=== PATIENT | male | born 1940 | race Caucasian/White ===

== ENCOUNTER 2016-08-24 12:28 | Inpatient (IN) | payer MEDICARE, OTHER ==
[~2016-08-24] VITALS: Ht 182.9 cm; Wt 113.5 kg
[2016-08-24] VITALS (12 sets, daily range): BP systolic 107–187; BP diastolic 80–109; PULSE 66–98; RESP 16–18; TEMP 98–98.3; O2SAT 90–97
[~2016-08-24 12:28] MED LIST: ALPR.25 PO; AMOX500T PO; ASPI325T PO; COUM5TAB PO; ENAL10TA7 PO; HYDR-3533 PO; METO50TA11 PO; WARF7.5 PO
[2016-08-24] MEDS ORDERED: SODIUM CHLORIDE 0.9% FLUSH 10 ML FLUSH IVF PRN (12:45)
[2016-08-24] MEDS: NITROGLYCERIN 0.4 MG SL 25 TABS/BTL SL SCH ×3 (12:50→13:10)
[2016-08-24 12:57] LABS: AUTOMATED NEUTROPHIL # 3.8 TH/MM3 (1.8-7.7); BASOPHIL # 0.1 TH/MM3 (0-0.2); EOSINOPHIL # 0.3 TH/MM3 (0-0.4); HEMATOCRIT 45.5 % (39.0-51.0); HEMO FLAGS DIFF FINAL; LYMPHOCYTE # 1.8 TH/MM3 (1.0-4.8); MEAN CELL VOLUME 93.5 FL (80.0-100.0); MEAN CORPUSCULAR HEMOGLOBIN 30.5 PG (27.0-34.0); MEAN CORPUSCULAR HGB CONC 32.6 % (32.0-36.0); MONO % 9.4 % (0.0-8.0); NEUT % 57.6 % (16.0-70.0); PLATELET COUNT 164 TH/MM3 (150-450); RED BLOOD COUNT 4.87 MIL/MM3 (4.50-5.90); RED CELL DISTRIBUTION WIDTH 13.6 % (11.6-17.2); WHITE BLOOD COUNT 6.6 TH/MM3 (4.0-11.0)
--- NOTE | 2016-08-24 13:07 | PD ---
HPI Chief Complaint: Chest Pain Time Seen by Provider: 12:44 Travel History International Travel<30 days: No Contact w/Intl Traveler<30days: No History of Present Illness HPI 75-year-old male presents emergency Department with fairly classic anginal symptoms. States since last night his been having a heaviness in the middle of his chest radiating to his left shoulder, it was mild nausea without vomiting and mild shortness of breath. Patient states she has a history of coronary artery disease and had stents placed many years ago but has not had a stress test or cardiac catheterization since. He follows with Dr. Moran. Patient is on Coumadin for history of atrial fibrillation. He states he did take a full dose aspirin today already. States pain is tight left side of his chest radiation down his left shoulder and accompanied with nausea. PFSH Past Medical History Atrial Fibrillation: Yes (ABLATION 2011) Anxiety: Yes Heart Rhythm Problems: Yes Cancer: Yes (colon) Cardiac Catheterization: Yes (STENT 12/17) Cardiovascular Problems: Yes High Cholesterol: Yes Chest Pain: Yes Congestive Heart Failure: No Cerebrovascular Accident: Yes Coronary Artery Disease: Yes Diminished Hearing: No Endocrine: No Gastrointestinal Disorders: Yes GERD: Yes Genitourinary: No Hiatal Hernia: Yes Hypertension: Yes Immune Disorder: No Musculoskeletal: No Neurologic: Yes Psychiatric: No Reproductive: No Respiratory: No Immunizations Current: No Myocardial Infarction: Yes Seizures: Yes (as a baby) PNEUMOCCOCAL Vaccine (Year): 1 Past Surgical History Abdominal Aneurysm Repair: Yes Abdominal Surgery: Yes (PARTIAL COLECTOMY) Cardiac Surgery: Yes (pacemaker placed and removed ) Coronary Stent: Yes Pacemaker: No Thoracic Surgery: Yes (BILATERAL CAROTID ENDARDERECTOMY) Other Surgery: Yes Social History Alcohol Use: Yes (OCCASIONAL) Tobacco Use: No Substance Use: No Allergies-Medications (Allergen,Severity, Reaction): Coded Allergies: Lipitor (Verified Allergy, Severe, back pain and chest pain, 08/24/16) Simvastatin (Unverified Allergy, Severe, body aches, 08/24/16) Reported Meds & Prescriptions Reported Meds & Active Scripts Active Reported Aspirin 325 Mg Tab 325 Mg PO DAILY Metoprolol Tartrate 25 Mg Tab 25 Mg PO BID Enalapril (Enalapril Maleate) 10 Mg Tab 10 Mg PO DAILY Xanax (Alprazolam) 0.25 Mg Tab 0.25 Mg PO Q6H PRN Coumadin (Warfarin) 5 Mg Tab 5 Mg PO M,W,TH,SA Coumadin (Warfarin) 7.5 Mg Tab 7.5 Mg PO FREITAS,TU,FR Review of Systems Except as stated in HPI: all other systems reviewed are Neg Physical Exam Narrative GENERAL: Well-developed well-nourished, slightly diaphoretic patient. Appears uncomfortable. SKIN: Slightly diaphoretic. HEAD: Atraumatic. Normocephalic. EYES: Pupils equal and round. No scleral icterus. No injection or drainage. ENT: No nasal bleeding or discharge. Mucous membranes pink and moist. NECK: Trachea midline. No JVD. CARDIOVASCULAR: Regular rate and rhythm. No murmur appreciated. 2+ bilateral equal pulses in all 4 extremities. No edema. RESPIRATORY: No accessory muscle use. Clear to auscultation. Breath sounds equal bilaterally. GASTROINTESTINAL: Abdomen soft, non-tender, nondistended. Hepatic and splenic margins not palpable. MUSCULOSKELETAL: No obvious deformities. No clubbing. No cyanosis. No edema. NEUROLOGICAL: Awake and alert. No obvious cranial nerve deficits. Motor grossly within normal limits. Normal speech. PSYCHIATRIC: Appropriate mood and affect; insight and judgment normal. Data Data Last Documented VS Vital Signs Date Time Temp Pulse Resp B/P Pulse Ox O2 Delivery O2 Flow Rate FiO2 08/24/16 13:19 88 16 142/80 94 Room Air 08/24/16 12:35 98.0 Orders Electrocardiogram (08/24/16 12:44) Ckmb (Isoenzyme) Profile (08/24/16 12:44) Complete Blood Count With Diff (08/24/16 12:44) Comprehensive Metabolic Panel (08/24/16 12:44) Magnesium (Mg) (08/24/16 12:44) Prothrombin Time / Inr (Pt) (08/24/16 12:44) Act Partial Throm Time (Ptt) (08/24/16 12:44) Troponin I (08/24/16 12:44) Chest, Single Ap (08/24/16 12:44) Ecg Monitoring (08/24/16 12:44) Iv Access Insert/Monitor (08/24/16 12:44) Oximetry (08/24/16 12:44) Oxygen Administration (08/24/16 12:44) Sodium Chloride 0.9% Flush (Ns Flush) (08/24/16 12:45) Nitroglycerin Sl (Nitrostat Sl) (08/24/16 12:45) CKMB (08/24/16 12:45) CKMB% (08/24/16 12:45) Admit Order (Ed Use Only) (08/24/16 ) Labs Laboratory Tests Test 08/24/16 12:45 White Blood Count 6.6 TH/MM3 Red Blood Count 4.87 MIL/MM3 Hemoglobin 14.8 GM/DL Hematocrit 45.5 % Mean Corpuscular Volume 93.5 FL Mean Corpuscular Hemoglobin 30.5 PG Mean Corpuscular Hemoglobin 32.6 % Concent Red Cell Distribution Width 13.6 % Platelet Count 164 TH/MM3 Mean Platelet Volume 8.2 FL Neutrophils (%) (Auto) 57.6 % Lymphocytes (%) (Auto) 27.0 % Monocytes (%) (Auto) 9.4 % Eosinophils (%) (Auto) 5.0 % Basophils (%) (Auto) 1.0 % Neutrophils # (Auto) 3.8 TH/MM3 Lymphocytes # (Auto) 1.8 TH/MM3 Monocytes # (Auto) 0.6 TH/MM3 Eosinophils # (Auto) 0.3 TH/MM3 Basophils # (Auto) 0.1 TH/MM3 CBC Comment DIFF FINAL Differential Comment Prothrombin Time 21.0 SEC Prothromb Time International 1.8 RATIO Ratio Activated Partial 32.4 SEC Thromboplast Time Sodium Level 141 MEQ/L Potassium Level 4.2 MEQ/L Chloride Level 102 MEQ/L Carbon Dioxide Level 31.5 MEQ/L Anion Gap 8 MEQ/L Blood Urea Nitrogen 26 MG/DL Creatinine 1.60 MG/DL Estimat Glomerular Filtration 42 ML/MIN Rate Random Glucose 126 MG/DL Calcium Level 8.3 MG/DL Magnesium Level 1.8 MG/DL Total Bilirubin 0.3 MG/DL Aspartate Amino Transf 24 U/L (AST/SGOT) Alanine Aminotransferase 25 U/L (ALT/SGPT) Alkaline Phosphatase 68 U/L Total Creatine Kinase 139 U/L Creatine Kinase MB 1.9 NG/ML Troponin I 0.06 NG/ML Total Protein 7.6 GM/DL Albumin 3.6 GM/DL MDM Medical Decision Making Medical Screen Exam Complete: Yes Emergency Medical Condition: Yes Interpretation(s) EKG shows sinus rhythm with minimal ST depression in V2 through V5. No elevations are seen. FL interval at the upper limit of normal at 205 ms, otherwise intervals within normal limits. Normal axis normal R-wave progression. This an abnormal EKG. Differential Diagnosis ACS, AMI, pneumonia, lecture led abnormality, NSTEMI, STEMI. Narrative Course Patient roomed in emergency department, he was given nitroglycerin sublingually and his chest tightness had resolved. Blood pressure had normalized. The patient's troponin is minimally elevated to 0.06, given his history of present illness is highly consistent with ACS this prompted a call to Dr. Moran, Dr. Moran is in procedure, I did speak with care of his SEMICONDUCTOR DIES LOADER who recommended the patient be transported up to the [facility] for consideration of catheterization. At this is the most appropriate action for the patient at this time. Discussed with patient and he is agreeable. He is much more comfortable appearing at this time. We are arranging transportation at this time. He is stable for transportation. Discussed with Dr. Mireles who agrees. He is also found history patient has a history of descending thoracic back aneurysm and like to get a CTA. He is discussed with Dr. Moran and CTA was performed and read is pending at this time. Shortly after having CAT scan he return to emergency department stating that he was having chest pain again. A repeat EKG no change from previous, his repeat troponin is reviewed and is 0.53. I discussed with Dr. Renteria I have deferred the decision to anticoagulate further to him, he is on Coumadin. Dr. Renteria would have to review the CTA and possibly discussed with Dr. Moran prior to safely anticoagulating the patient. Diagnosis Primary Impression: ACS (acute coronary syndrome) Additional Impression: NSTEMI (non-ST elevated myocardial infarction) Admitting Information Admitting Physician Requests: Admit Condition: Stable Jeffrey Hay MD Aug 24, 2016 13:07
[2016-08-24 13:08] LABS: CHLORIDE 102 MEQ/L (98-107); POTASSIUM 4.2 MEQ/L (3.5-5.1); SODIUM (NA) 141 MEQ/L (136-145)
[2016-08-24 13:11] LABS: APTT (PATIENT) 32.4 SEC (24.3-30.1); INTERNATIONAL NORMALIZED RATIO 1.8 RATIO
[2016-08-24 13:12] LABS: ANION GAP 8 MEQ/L (5-15); BICARBONATE 31.5 MEQ/L (21.0-32.0); BLOOD UREA NITROGEN 26 MG/DL (7-18); MAGNESIUM 1.8 MG/DL (1.5-2.5)
[2016-08-24 13:15] LABS: ALT (GPT) 25 U/L (12-78); AST (GOT) 24 U/L (15-37); GLOMERULAR FILTRATION RATE 42 ML/MIN (>89)
[2016-08-24 13:16] LABS: TOTAL BILIRUBIN ADULT 0.3 MG/DL (0.2-1.0)
--- NOTE | 2016-08-24 13:16 | RADRPT ---
EXAM DATE/TIME: 08/24/2016 13:03 [facility] COMPARISON: No previous studies available for comparison. INDICATIONS : Chest pain. MEDICAL HISTORY : None. SURGICAL HISTORY : ablasion ENCOUNTER: Initial ACUITY: 1 day PAIN SCORE: 6/10 LOCATION: Bilateral chest FINDINGS: A single view of the chest demonstrates cardiomegaly and bibasilar densities likely atelectasis. Tort uous thoracic aorta.. Osseous structures are intact. CONCLUSION: 1. Bibasilar atelectasis. 2. Cardiomegaly. Jacob Trujillo MD on August 24, 2016 at 13:13 Board Certified Radiologist. This report was verified electronically.
[2016-08-24 13:17] LABS: CREATINE KINASE 139 U/L (39-308)
[2016-08-24] MEDS ORDERED: ASPI325T PO (13:17)
[2016-08-24] MEDS ORDERED: ALPR.25 PO (13:17)
[2016-08-24] MEDS ORDERED: METO25TA3 PO (13:17)
[2016-08-24] MEDS ORDERED: COUM5TAB PO (13:17)
[2016-08-24] MEDS ORDERED: ENAL10TA PO (13:17)
[2016-08-24] MEDS ORDERED: COUM7.5T PO (13:17)
[2016-08-24 13:18] LABS: ALKALINE PHOSPHATASE 68 U/L (45-117)
[2016-08-24 13:30] LABS: CKMB 1.9 NG/ML (0.5-3.6)
[2016-08-24] MEDS ORDERED: LABETALOL HCL 100 MG/20 ML VIAL IV PUSH PRN (15:15)
[2016-08-24] MEDS ORDERED: PILL SPLITTER OTHER PRN (15:30)
--- NOTE | 2016-08-24 15:31 | HHI.HP ---
[facility] No Primary Care Physician Admission Diagnosis Chest pain, elevated TN. Diagnoses: Chief Complaint: Chest pain Travel History International Travel<30 Days: No Contact w/Intl Traveler <30 Da: No Traveled to Known Affected Are: No History of Present Illness 75 years old male with history of colon cancer bladder cancer AAA and chest aortic aneurysm A. fib status post ablation, presented to the ED complaining of chest pain mostly retrosternal 8 out of 10 worsening with lying down improving with sitting up, no accompanying diaphoresis lightheaded chest of breath, goes to the jaw and between the shoulder. Patient was given nitroglycerin got the pain improved 100%. in ED Dr. Moran the patient dielectric machine operator was contacted and he recommended transferring patient to main hospital for further workup. Patient is on Coumadin INR is 1.8. 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 fib status post ablation History of bladder cancer status post treatment Past Surgical History As above Allergies: Coded Allergies: Lipitor (Verified Allergy, Severe, back pain and chest pain, 08/24/16) Simvastatin (Unverified Allergy, Severe, body aches, 08/24/16) Family History Positive for coronary artery disease Social History He drinks alcohol occasionally no smoking or illicit drug use Physical Exam Vital Signs Vital Signs Date Time Temp Pulse Resp B/P Pulse Ox O2 Delivery O2 Flow Rate FiO2 08/24/16 14:24 75 18 156/89 95 Room Air 08/24/16 13:19 88 16 142/80 94 Room Air 08/24/16 13:19 18 08/24/16 13:00 18 95 Room Air 08/24/16 13:00 95 Room Air 08/24/16 12:45 92 7/18/17 12:35 98.0 92 18 186/107 97 Physical Exam GENERAL: This is a well-nourished, well-developed patient, in no apparent distress. SKIN: No rashes, warm and dry HEAD: Atraumatic. Normocephalic. EYES: Pupils equal round and reactive. Extraocular motions intact. No scleral icterus. ENT: Nose without bleeding, or drainage, Airway patent. NECK: Trachea midline. Supple CARDIOVASCULAR: Regular rate and rhythm without murmurs, gallops, or rubs. RESPIRATORY: Fair air entry bilaterally. No wheezes, rales, or rhonchi. GASTROINTESTINAL: Abdomen soft, non-tender, nondistended. Positive bowel sounds MUSCULOSKELETAL: Extremities without clubbing, cyanosis, or edema. Pedal pulses appreciated NEUROLOGICAL: Awake and alert. Moves all extremity. Normal speech.no focal neurological deficit Laboratory Laboratory Tests Test 08/24/16 12:45 White Blood Count 6.6 Red Blood Count 4.87 Hemoglobin 14.8 Hematocrit 45.5 Mean Corpuscular Volume 93.5 Mean Corpuscular Hemoglobin 30.5 Mean Corpuscular Hemoglobin 32.6 Concent Red Cell Distribution Width 13.6 Platelet Count 164 Mean Platelet Volume 8.2 Neutrophils (%) (Auto) 57.6 Lymphocytes (%) (Auto) 27.0 Monocytes (%) (Auto) 9.4 Eosinophils (%) (Auto) 5.0 Basophils (%) (Auto) 1.0 Neutrophils # (Auto) 3.8 Lymphocytes # (Auto) 1.8 Monocytes # (Auto) 0.6 Eosinophils # (Auto) 0.3 Basophils # (Auto) 0.1 CBC Comment DIFF FINAL Differential Comment Prothrombin Time 21.0 Prothromb Time International 1.8 Ratio Activated Partial 32.4 Thromboplast Time Sodium Level 141 Potassium Level 4.2 Chloride Level 102 Carbon Dioxide Level 31.5 Anion Gap 8 Blood Urea Nitrogen 26 Creatinine 1.60 Estimat Glomerular Filtration 42 Rate Random Glucose 126 Calcium Level 8.3 Magnesium Level 1.8 Total Bilirubin 0.3 Aspartate Amino Transf 24 (AST/SGOT) Alanine Aminotransferase 25 (ALT/SGPT) Alkaline Phosphatase 68 Total Creatine Kinase 139 Creatine Kinase MB 1.9 Troponin I 0.06 Total Protein 7.6 Albumin 3.6 Result Diagram: 08/24/16 1245 08/24/16 1245 Imaging Last Impressions Chest X-Ray 08/24/16 1244 Signed Impressions: Service Date/Time: Wednesday, August 24, 2016 13:03 - CONCLUSION: 1. Bibasilar atelectasis. 2. Cardiomegaly. Jacob Trujillo MD Assessment and Plan Assessment and Plan 75 years old male with history of hypertension hyperlipidemia AAA, descending aortic aneurysm above 5 cm came with Chest pain radiated to the jaw and between shoulder blades: First set of troponin 0.06 elevated Pain improved and resolved on nitroglycerin Suspicious for aortic aneurysm dissection versus ACS Cardiology contacted from ED requested transfer to [facility] INR is 1.8 patient on Coumadin for A. fib, will hold on anticoagulation especially given suspicion for dissection 12.5 mg of Lopressor, lisinopril 5 mg, also labetalol 10 mg iv as needed to keep blood pressure heart rate under control Hold on aspirin until rule out dissection Consult Dr. Moran, discussed with him Morphine and nitroglycerin sublingual as needed Continue monitoring cardiac enzyme EKG reviewed by me showed sinus rhythm [address] changes We'll need to do CTA scan rule out dissection, discussed with Dr. Hay regarding contrast for CTA followed by heart catheter, call for Dr. Moran has been placed I will go ahead and order CTA given his symptoms that is getting worse on laying down, and going to the between shoulder blades History of hypertension hyperlipidemia, A. fib, colon cancer, bladder cancer,: Continue home medications when stable Discussed Condition With ED physician and patient, and Etcher Machine dr Jr Moran Physician Certification 2 Midnight Certification Type: Admission for Inpatient Services Order for Inpatient Services The services are ordered in accordance with Medicare regulations or non- Medicare payer requirements, as applicable. In the case of services not specified as inpatient-only, they are appropriately provided as inpatient services in accordance with the 2-midnight benchmark. Estimated LOS (days): 2 days is the estimated time the patient will need to remain in the hospital, assuming treatment plan goals are met and no additional complications. Post-Hospital Plan: Not yet determined Julia Mireles MD Aug 24, 2016 15:31
[2016-08-24] MEDS ORDERED: NITROGLYCERIN 0.4 MG SL 25 TABS/BTL SL ONE (16:15)
[2016-08-24] MEDS: LISINOPRIL 5 MG TAB PO SCH (16:25)
[2016-08-24] MEDS ORDERED: IOHEXOL 350 MG/ML 10 ML VIAL (for RAD DIAG) IV ONE (16:27)
[2016-08-24] MEDS: NITROGLYCERIN 0.4 MG SL 25 TABS/BTL SL PRN ×3 (17:23→21:09)
--- NOTE | 2016-08-24 17:50 | RADRPT ---
EXAM DATE/TIME: 08/24/2016 15:47 [facility] COMPARISON: No previous studies available for comparison. INDICATIONS : Anterior chest pain. IV CONTRAST: 85 cc Omnipaque 350 (iohexol) IV RADIATION DOSE: 22.59 CTDIvol (mGy) MEDICAL HISTORY : Cerebrovascular disease. Cardiovascular disease Colon cancer. Bladder cancer. SURGICAL HISTORY : Coronary artery stent. Abdominal aortic aneurysm repair.Partial colectomy. ENCOUNTER: Initial ACUITY: 1 day PAIN SCALE: 10/10 LOCATION: chest anterior TECHNIQUE: Volumetric scanning was performed using a multi-row detector CT scanner. The data was post processed with a variety of visualization algorithms including full volume maximum intensity projection, multi -planar sliding thin slab reformation, curved planar reformation, and surface rendering techniques. Using automated exposure control and adjustment of the mA and/or kV according to patient size, radiat ion dose was kept as low as reasonably achievable to obtain optimal diagnostic quality images. DICOM format image data is available electronically for review and comparison. FINDINGS: LUNGS: Moderate paraseptal emphysema with upper lobe predominance. Interlobular septal thickening and minima l ground glass opacities in the lower lids, likely chronic in etiology. Two adjacent 2-3 mm nodules i n the anterior right upper. MEDIASTINUM: Subcentimeter mediastinal nodes do not meet CT size criteria. Moderate to severe coronary artery calc ifications. Heart is otherwise unremarkable without significant pericardial effusion. Main pulmonary artery is mildly enlarged measuring up to 3.3 cm consistent with some degree of pulmonary artery hype rtension. There is central pulmonary artery branches are patent. ABDOMEN: Scattered calcifications in the liver consistent with prior granulomatous disease. Spleen, adrenal gl ands, gallbladder, and pancreas are grossly unremarkable. Kidneys demonstrate symmetrical enhancement . There is moderate left-sided hydronephrosis and hydroureter extending to the UVJ. No radiopaque ure teral or renal calculi are noted. No evidence for hydronephrosis on the right. The 2 small cysts in t he superior patent the right kidney. Scattered sigmoid and descending colon diverticuli without signi ficant inflammatory change to suggest diverticulitis. PELVIS: No evidence of free fluid or pelvic mass. No abnormally enlarged inguinal or retroperitoneal lymph no ralph are present. The bladder is grossly unremarkable by CT although patient has a history of bladder CA.. THORACIC AORTA: Descending thoracic aorta is mildly ectatic measuring up 3.6 cm. There is stented 3 arch anatomy. Mod erate calcifications are noted at the origin of the left subclavian with likely result in mild stenos is. Course of the left subclavian is otherwise enlarged obscured by a dense contrast in the left subc lavian vein. Remaining visualized proximal arch vessels are patent. Descending thoracic aorta is tort uous and aneurysmal measuring 4.4 cm proximally and a 5.4 cm distally near the hiatus. There is no ev idence for significant periaortic stranding or fluid to suggest leak or rupture. No evidence for aort ic dissection. ABDOMINAL AORTA: The abdominal aorta is aneurysmal to the bifurcation with the supraceliac aorta measuring 4.2 cm and the infrarenal abdominal aorta measuring 4.1 cm in maximal axial dimension. There is a moderate amoun t of mural thrombus in the infrarenal abdominal aorta. Mild to moderate stenosis at the celiac origin secondary to calcified plaque. Very minimal stenosis of the SMA origin secondary to calcified plaque . LOUISA is occluded at the origin but reconstitutes proximally. Moderate stenosis of the left renal art mariella origin secondary to calcified plaque. Moderate stenosis of the proximal right renal artery second elvira to calcified plaque. PELVIC VESSELS: The iliac arteries are heavily calcified bilaterally the and mildly ectatic. The external iliac arter ies are normal in caliber. Visualized portions of the femoral arteries are patent and unremarkable. CONCLUSION: 1. Fusiform thoracoabdominal aortic aneurysm containing mild to moderate neural fundus with measureme nts as above. Largest caliber of the thoracic aorta distally near the aortic hiatus measures 5.4 cm. Largest caliber of the abdominal aorta in the supraceliac portion measures 4.2 cm. Largest caliber of the infrarenal abdominal aorta measures 4.1 cm with moderate mural thrombus. 2. No evidence for aortic dissection or aneurysm rupture/leak. 3. Moderate left hydroureteronephrosis extending to the UVJ without a radiopaque renal calculi or dis cernible mass on CT. Patient does have a history of bladder CA. Therefore, this likely reflects UVJ i nvolvement by new or previously treated tumor. Clinical correlation is recommended. 4. Slightly prominent main pulmonary artery may reflect some degree of pulmonary artery hypertension. 5. Two adjacent 2-3 mm nodules in the right upper lower lobe. Followup examination may be performed i n 12 months per 2017 Fleischner criteria as indicated. 6. Moderate to severe coronary artery calcifications. Richardson Haney MD on August 24, 2016 at 17:20 Board Certified Radiologist. This report was verified electronically.
[2016-08-24] MEDS ORDERED: HEPARIN-D5W INJ 250 ML IV SCH (19:30)
[2016-08-24 19:31] LABS: CREATINE KINASE 140 U/L (39-308)
[2016-08-24 19:49] LABS: CKMB 3.6 NG/ML (0.5-3.6)
[2016-08-24] MEDS: PRAVASTATIN SOD 10 MG TAB PO SCH (21:00)
[2016-08-24] MEDS: METOPROLOL TARTRATE 25 MG TAB PO SCH (21:06)
[2016-08-24] MEDS: MORPHINE SULFATE 4 MG/ML INJ IV PRN (21:11)
[2016-08-24 23:39] LABS: CREATINE KINASE 135 U/L (39-308)
[2016-08-25] VITALS (22 sets, daily range): BP systolic 63–165; BP diastolic 59–101; PULSE 64–95; RESP 18–20; TEMP 97.6–99.1; O2SAT 93–97
[2016-08-25 00:06] LABS: CKMB 5.7 NG/ML (0.5-3.6)
[2016-08-25] MEDS: MORPHINE SULFATE 4 MG/ML INJ IV PRN ×6 (02:34→17:40)
[2016-08-25] MEDS: NITROGLYCERIN 0.4 MG SL 25 TABS/BTL SL PRN ×3 (02:34→08:11)
[2016-08-25 06:45] LABS: INTERNATIONAL NORMALIZED RATIO 1.8 RATIO; PROTHROMBIN TIME - PATIENT 20.1 SEC (9.8-11.6)
[2016-08-25 06:59] LABS: AUTOMATED NEUTROPHIL # 7.3 TH/MM3 (1.8-7.7); BASOPHIL % 0.5 % (0.0-2.0); EOSINOPHIL # 0.2 TH/MM3 (0-0.4); EOSINOPHIL % 2.2 % (0.0-4.0); HEMATOCRIT 43.6 % (39.0-51.0); HEMO FLAGS DIFF FINAL; LYMPH % 12.8 % (9.0-44.0); LYMPHOCYTE # 1.2 TH/MM3 (1.0-4.8); MEAN CELL VOLUME 96.6 FL (80.0-100.0); MEAN CORPUSCULAR HEMOGLOBIN 31.6 PG (27.0-34.0); MEAN CORPUSCULAR HGB CONC 32.8 % (32.0-36.0); MONO % 9.2 % (0.0-8.0); NEUT % 75.3 % (16.0-70.0); PLATELET COUNT 160 TH/MM3 (150-450); RED BLOOD COUNT 4.51 MIL/MM3 (4.50-5.90); RED CELL DISTRIBUTION WIDTH 14.3 % (11.6-17.2); WHITE BLOOD COUNT 9.6 TH/MM3 (4.0-11.0)
[2016-08-25 07:03] LABS: ANION GAP 8 MEQ/L (5-15); BICARBONATE 26.7 MEQ/L (21.0-32.0); BLOOD UREA NITROGEN 23 MG/DL (7-18); CHLORIDE 103 MEQ/L (98-107); GLOMERULAR FILTRATION RATE 51 ML/MIN (>89); POTASSIUM 4.6 MEQ/L (3.5-5.1); SODIUM (NA) 138 MEQ/L (136-145)
[2016-08-25 07:06] LABS: CREATINE KINASE 127 U/L (39-308)
[2016-08-25 07:32] LABS: CKMB 4.8 NG/ML (0.5-3.6)
[2016-08-25] MEDS: METOPROLOL TARTRATE 25 MG TAB PO SCH ×2 (08:10→21:06)
[2016-08-25] MEDS: LISINOPRIL 5 MG TAB PO SCH (08:10)
[2016-08-25] MEDS ORDERED: PHYTONADIONE 10 MG/ML VIAL SQ ONE (08:30)
[2016-08-25] MEDS ORDERED: IOHEXOL 350 MG/ML 100 ML BTL (for Cath Lab) OTHER ONE (08:35)
[2016-08-25] MEDS ORDERED: ASPIRIN 325 MG TAB PO SCH (08:45)
[2016-08-25] MEDS ORDERED: MIDAZOLAM HCL 2 MG/2 ML VIAL ONE (08:50)
[2016-08-25] MEDS ORDERED: HEPARIN-NS/PF INJ 500 ML ONE (08:50)
--- NOTE | 2016-08-25 08:57 | EKG ---
Date Performed: 08/24/2016 Time Performed: 21:22:42 PTAGE: 75 years EKG: Sinus rhythm with borderline 1st degree A-V block Borderline ECG PREVIOUS TRACING : 08/24/2016 16.14 DOCTOR: Wing Mike Interpretating Date/Time 08/25/2016 08:57:00
--- NOTE | 2016-08-25 09:23 | MB ---
cc: SUELLEN MORAN M.D. DATE OF CONSULTATION: 08/25/2016 REASON FOR CONSULTATION: Thank you Dr. Mireles for asking us to see this 75-year-old gentleman who has a history of colon cancer surgery which was operated on here, prior history of pacemaker placement which was a [employer] pacemaker placed in [facility], prior history of atrial fibrillation, history of stent in 2004, apparently carried out by Dr. Gomez. The patient is on Coumadin. His INR is still elevated at 1.8. He has an ascending aortic aneurysm of about 5 cm[address] He had a [address] angio carried out last night because of chest pain and concern that he might be having a ruptured dissecting aneurysm. The patient first presented at [place] where he had the CTA carried out. PAST MEDICAL HISTORY Past medical history is positive for: 1. Hypertension. 2. Hyperlipidemia. 3. Colon cancer. 4. Atrial fibrillation status post ablation with Dr. Burdick. 5. SD in 2009, status post stent. 8. History of CVA. 9. Carotid stenosis. 10. Carotid endarterectomy in [address] Akhtar. 11. History of left atrial appendage thrombus. 12. History of thoracic and abdominal aneurysms. 13. Removal of pacemaker with infection 2010. At this point he states that he has been having chest pains on and off for a couple of days. The chest pain was quite severe, worse on exertion, better with rest. His troponin is elevated to 1 consistent with significant coronary artery disease. Because of his continued chest pain, we recommended he go directly to the heart catheterization lab. He was given some nitroglycerin with some relief of pain this morning. FAMILY HISTORY Family history is positive for coronary artery disease. SOCIAL HISTORY No smoking, drugs. Rare alcohol. PHYSICAL EXAMINATION VITAL SIGNS: On examination his pulse was 75, blood pressure 165/101. EYES: No xanthelasma. MOUTH: No cyanosis or pallor. NECK: No JVD. HEART: He had two heart sounds. No murmurs. CHEST: Chest was clear. ABDOMEN: Soft. No hepatosplenomegaly. EXTREMITIES: Legs reveal no significant edema. NEUROLOGIC: Exam is grossly intact. SKIN: Exam is grossly intact. ASSESSMENT/PLAN This gentleman now presents with marked symptoms of unstable angina. He has had some hemoptysis this morning which I am assuming at this time is secondary to heparin and elevated INR. However, given his very unstable situation, I reviewed with him that we need to proceed with heart catheterization given his chest pains and positive troponin. He is agreeable to do this. We will proceed LAINEY. On the basis of the heart catheterization will make a decision whether to proceed with stenting, PTCA or bypass surgery or medical management. Thank you for asking us to see this very complex gentleman with multiple medical problems including history of atrial fibrillation, history of pacemaker, colon cancer, carotid stenosis, TIAs, CVA, intracardiac thrombus, pulmonary embolism. Suellen Moran MD, FRCP,[facility]/PEGGY /8:39 AM /9:04 AM BRYAN
[2016-08-25] MEDS ORDERED: NITROGLYCERIN 0.4 MG SL 25 TABS/BTL SL ONE (09:41)
--- NOTE | 2016-08-25 09:44 | EKG ---
Date Performed: 08/24/2016 Time Performed: 16:14:33 PTAGE: 75 years EKG: Sinus rhythm MODERATE INTRAVENTRICULAR CONDUCTION DELAY MODERATE ST DEPRESSION ABNORMAL ECG INTERPRETATION BASED ON A DEFAULT AGE OF 39 YEARS NO PREVIOUS TRACING DOCTOR: Wing Mike Interpretating Date/Time 08/25/2016 09:43:53
--- NOTE | 2016-08-25 09:45 | EKG ---
Date Performed: 08/24/2016 Time Performed: 15:35:33 PTAGE: 75 years EKG: Sinus rhythm NORMAL ECG PREVIOUS TRACING : 08/24/2016 12.39 DOCTOR: Wing Mike Interpretating Date/Time 08/25/2016 09:44:27
--- NOTE | 2016-08-25 10:20 | CATHPROC ---
Distractify HIS Report Study Information Study Number Admission Scheduled Start Study Start [id number] Aug 24 2016 2:10PM 08/25/2016 Aug 25 2016 8:22AM [place] Service Cardiac Catheterization Admit Source Facility Department Emergency department [facility] - Route Service Representative Physician and Clinical Staff Initial MD Moran, Suellen Front Services Agent Juliet Hunt RN Recorder Nusrat Gonzalez,RT(R) (BS) Scrub Grecia MarteRT(R) Procedures Performed Procedure Location (Site) Vessel Name Coronary Angiograms RCA Right Coronary Equipment Time Cmv Driver Description Size Mfg Part Number Used/Scraped TRANSDUCER, TRUWAVE [id number] 09:05 MCMILLAN BENNETT * Used W/STOCKCOCK *[id number]- INTRODUCER SET, 09:13 [employer] FR 5 SC-NT-U-SST Used MICROPUNCTURE, STIFFENED *[id number] 538-476 *[id number] 534-576T *[id number] 538-420 *[id number] 538-422 *[id number] PIGTAIL ANG. 145 INFINITI 534-652S CATHETER *[id number] 538-453S *[id number] 09:56 DAIG/[employer]. SONI MEDICAL ANGIOSEAL, FR6 VIP FR 6 Used *[id number] 09:56 DAIG/[employer]. SONI MEDICAL ANGIOSEAL, FR6 VIP FR 6 Used *[id number] 09:05 [employer] PACK, CCL CUSTOM * Used *[id number] 09:05 [employer] PACER PEN, SKIN DUAL W/ RULER * Used *[id number] 09:05 [employer] WIRE, 3MMJ .035 180CM 180CM Used *[id number] PROBE COVER, STERILE [id number] 09:05 [employer] MEDICAL * Used ULTRASOUND W/ GEL *[id number] 09:05 NAMIC MANIFOLD, 4 PORT * Used *[id number] 09:05 [employer] OMNIPAQUE, 350 MG, 150ML 150ML [id number] Used [id number] 09:05 [employer] MEDICAL BLANKET,WARM AIR CCL * Used *[id number] 09:05 [employer] MEDICAL SHEATH, FR4 TERUMO (10CM) FR 4 [id number] Used Equipment Model, Serial, Lot Number and Expiration Data Description Model Number Serial Number Lot Number Expiration Date ANGIOSEAL, EDWIN VIP [id number] 04-06-2017 ANGIOSEAL, EDWIN VIP [id number] 04-06-2017 History: Current Medications Medication Dosage/Unit Route Frequency Last Date/Time Taken Beta Juan David ASA Coumadin History: Allergies Allergy Reaction Lipitor back pain and chest pain Simvastatin body aches HMG-CoA Reductase Inhibitors History: Risk Factors Family History of Hypertension Dyslipidemia Previous [place] Previous Heart Failure Premature CAD Yes Yes No No No Prior Valve Prior PCI Prior PCIDate Prior CABG Surgery No Yes 02/08/2004 No Cerebrovascular Peripheral Artery Chronic Lung On Dialysis Diabetes Disease Disease Disease No Yes No No No History: Symptoms/Diagnosis Selection Items Chest pain History: Stress Tests Stress or Imaging Studies Performed No History: Other Current Smoker Method Quit Packs a Day Years Used Pack Years No Cigarettes 16 Years Ago 1 20 20 Labs Hgb (g/dl) Hct (%) WBC (l/cumm) Platelets (thousands) 11.60-17.00 35.00-51.00 4.00-11.00 150.00-450.00 14.0 43 9.6 160 Glucose (mg/dl) BUN (mg/dl) Creatinine (mg/dl) BUN:Creatinine (1:x) 74.00-106.00 7.00-18.00 0.50-1.30 10.00-20.00 103 23 1.3 17.7 Na (meq/l) K (meq/l) 136.00-145.00 3.50-5.10 138 4.6 INR (PTT:PT) 0.90-1.10 1.8 Troponin I (ng/ml) CPK-MB (ng/ML) 0.02-0.05 0.50-3.60 0.82 Not Drawn Medication Medication Total Dose (Bolus/Oral) Medication Total Dosage/Unit 1% XYLOCAINE 20 mL NITROGLYCERIN S/L 0.4 mg OXYGEN 2 l/min VERSED 2 mg Medications (Bolus/Oral) Medication Time Given Dosage/Unit Administered By Reason OXYGEN 08/25/2016 8:49:34 AM 2 l/min Juliet Hunt Patient arrived on 2 l/min OXYGEN given by Juliet Hunt RN via Nasal. VERSED 08/25/2016 9:09:35 AM 1 mg Juliet Hunt 1 mg VERSED given in lab by Juliet Hunt, NOEMI in Left Antecubital via Peripheral IV. Ordered by Suellen Heck. 1% XYLOCAINE 08/25/2016 9:09:46 AM 20 mL Suellen Moran 20 mL 1% XYLOCAINE given in lab by Suellen Moran in Right Groin via Subcutaneous. Ordered by Suellen Kessler. NITROGLYCERIN S/L 08/25/2016 9:41:10 AM 0.4 mg Juliet Hunt 0.4 mg NITROGLYCERIN S/L given in lab by Juliet Hunt, NOEMI via Sublingual. Ordered by Abril Moran. VERSED 08/25/2016 9:54:42 AM 1 mg Juliet Hunt 1 mg VERSED given in lab by Juliet Hunt, NOEMI in Left Antecubital via Peripheral IV. Ordered by Suellen Heck. Medication (Drip) Medication Time Given Dosage/Unit Concentration/Unit Diluent (ml) Solution IV Solutions 08/25/2016 8:42:15 AM 0 mL (IV) 1000 NaCl .9 Patient arrived on IV Solutions in Left Antecubital via Peripheral IV. Pump/Drip Flow = 20 ml/hr usin g NaCl .9. Initial Case Assessment Cardiovascular HR Rhythm NIBP Chest Pain 87 reg 149/95 3 Edema Present Skin color Skin None Normal Warm Dry Circulatory - Right Pulses Dorsalis Pedis Femoral 1 3 Scale (0,1,2,3,4,d) Circulatory - Left Pulses Dorsalis Pedis Femoral 1 3 Scale (0,1,2,3,4,d) Circulatory - Lower Extremities Color Lower Right Color Lower Left Normal Normal Neurological State Oriented to time-place- Alert Moves all extremities person Respiration - General Respiration Rate SpO2 (%) (B/min) 18 93 Chronological Log Time Study Chronological Log 8:35:40 Patient arrived via Bed. 8:35:45 Patient Name, D.O.B, / Armband Verified By R.N. 8:35:49 Consent signed by the physician and the patient and verified by the Route Service Representative staff. 8:41:53 Pre-op and post- op instructions given; patient acknowledges understanding of instructions. 8:41:55 Verbal Stimulation=2 Physical Stimulation=2 Airway=2 Respiration=2 TOTAL=8. (0=absent, 1=li mited, 2=present) 8:41:57 Presedation assessment performed by Route Service Representative RN. 8:41:59 Patient has been NPO for More than 6Hrs. 8:42:00 Skin Breakdown none per pt 8:42:02 Patient Warmer Placed on the Table. 8:42:13 Joe Prominences Protected 8:42:14 A # 20 IV was noted in the Antecubital (left). Grade = 0 8:42:15 Patient arrived on IV Solutions in Left Antecubital via Peripheral IV. Pump/Drip Flow = 20 ml/hr using NaCl .9. 8:42:18 History and physical on the chart or being dictated. Assessment: Initial Case, HR=87 BPM, Rhythm=reg, VWTO=999/95 mmhg, Chest Pain=3, Edema=None, Col or=Normal, Skin = Warm, Dry Right Pulses: Vicente Ped=1, Femoral=3 Left Pulses: Vicente Ped=1, Femoral=3 8:42:19 Lower Right Extremities: Color=Normal Lower Left Extremities: Color=Normal Neurological: State=Alert, Ox3, STONE Respiration: Resp=18 B/min, SpO2=93 % Vitals capture started with the following parameters, Patient=Adult, Interval=5 min, Initial Pre csjhm=832 mmHg, 8:45:18 Deflation Rate=5 mmHg 8:45:59 HR=89 bpm, PVZG=317/95 mmhg, SpO2=90.0 %, Resp=9 B/min, Pain=3, Yu=10, Mcgarry=2 8:47:00 Reference ECG taken 8:48:50 Bilateral groins prepped with 2% chlorhexidine, and with a 3 min. waiting time. 8:49:34 Patient arrived on 2 l/min OXYGEN given by Juliet Hunt RN via Nasal. 8:50:54 HR=82 bpm, RXKU=527/89 mmhg, SpO2=98.0 %, Resp=17 B/min, Pain=3, Yu=10, Mcgarry=2 8:52:44 MD paged 8:55:57 HR=78 bpm, GQJZ=590/83 mmhg, SpO2=98.0 %, Resp=13 B/min, Pain=3, Yu=10, Mcgarry=2 8:56:55 Pressure channel 1 zeroed. 9:00:56 HR=80 bpm, KIED=268/86 mmhg, SpO2=97.0 %, Resp=12 B/min, Pain=3, Yu=10, Mcgarry=2 9:04:46 MD arrived 9:05:55 HR=79 bpm, TPXO=759/82 mmhg, SpO2=97.0 %, Resp=21 B/min, Pain=3, Yu=10, Mcgarry=2 Time Out. Correct patient, correct procedure,correct physician, power injector loaded with contr ast with surgical team 9:09:05 present. Time Out Concurred by , individual staff in procedure 9:09:29 Case Start 1 mg VERSED given in lab by Juliet Hunt RN in Left Antecubital via Peripheral IV. Ordered by Luisa, 9:09:35 Humayun. 20 mL 1% XYLOCAINE given in lab by Suellen Moran in Right Groin via Subcutaneous. Ordered by Luisa, 9:09:46 Humayun. 9:10:56 HR=82 bpm, XBTL=441/87 mmhg, SpO2=97.0 %, Resp=14 B/min, Pain=3, Yu=10, Mcgarry=2 9:11:50 Access site was Right Femoral Artery. A INTRODUCER SET, MICROPUNCTURE, STIFFENED FR 5 was advanced into the Fem Art (right) using the Modified 9:12:00 Seldinger technique. A SHEATH, FR4 TERUMO (10CM) FR 4 was exchanged in the Fem Art (right). This was necessary in ord er to achieve 9:12:31 vascular hemostasis. A JL 4.0 INFINITI CATHETER FR 4 was advanced over a wire. OMNIPAQUE, 350 MG, 150ML 150ML was use d for 9:15:00 injections. 9:15:47 Pressure channel 1 zero failed. Recorded Pressure: Ao, HR=74, Condition=Condition 1 9:15:55 (Aorta) Ao 132/68/95 9:15:57 HR=73 bpm, EXAX=583/79 mmhg, SpO2=95.0 %, Resp=15 B/min, Pain=3, Yu=10, Mcgarry=2 After removing the current catheter a JL 5.0 INFINITI CATHETER FR 4 was advanced over a WIRE, 3M MJ .035 180CM 9:18:58 180CM. 9:20:56 HR=76 bpm, VELG=891/80 mmhg, SpO2=96.0 %, Resp=19 B/min, Pain=3, Yu=10, Mcgarry=2 9:22:29 Catheter was removed 9:25:57 HR=80 bpm, QBVB=808/86 mmhg, SpO2=98.0 %, Resp=21 B/min, Pain=3, Yu=10, Mcgarry=2 9:26:50 Activated Clotting Time Drawn A SHEATH, FR6.5 DIOR 23CM FR 6.5 23CM was exchanged in the Fem Art (right). This was necessary in order for 9:27:55 catheter support. 9:29:24 ACT (Normal Range 90-180) = 123 9:31:42 HR=78 bpm, WVJM=397/99 mmhg, SpO2=98.0 %, Resp=17 B/min, Pain=3, Yu=10, Mcgarry=2 A 3DRC INFINITI CATHETER FR 5 was advanced over a wire. OMNIPAQUE, 350 MG, 150ML 150ML was used for 9:33:19 injections. 9:34:52 The RCA was injected and visualized at various angles. OMNIPAQUE, 350 MG, 150ML 150ML used. After removing the current catheter a JL 5.0 INFINITI CATHETER FR 4 was advanced over a WIRE, 3 MMJ .035 180CM 9:35:52 180CM. 9:36:02 HR=77 bpm, PMTO=069/94 mmhg, SpO2=97.0 %, Resp=18 B/min, Pain=3, Yu=10, Mcgarry=2 Recorded Pressure: LCA, HR=83, Condition=Condition 1 9:37:53 (Left Coronary Artery) LCA 123/60/87 9:40:19 Catheter was removed 9:41:01 HR=81 bpm, JSRG=771/99 mmhg, SpO2=97.0 %, Resp=18 B/min, Pain=3, Yu=10, Mcgarry=2 9:41:10 0.4 mg NITROGLYCERIN S/L given in lab by Juliet Hunt RN via Sublingual. Ordered by Suellen Sapp. A PIGTAIL ANG. 145 INFINITI CATHETER FR 6 was advanced over a wire. OMNIPAQUE, 350 MG, 150ML 15 0ML was 9:42:23 used for injections. After removing the current catheter a 3DRC INFINITI CATHETER FR 4 was advanced over a WIRE, 3MM J .035 180CM 9:43:30 180CM. 9:46:04 HR=74 bpm, VHOJ=293/87 mmhg, SpO2=95.0 %, Resp=20 B/min, Pain=3, Yu=10, Mcgarry=2 After removing the current catheter a PIGTAIL ANG. 145 INFINITI CATHETER FR 6 was advanced over a WIRE, 3MMJ 9:47:21 .035 180CM 180CM. 9:50:47 Catheter was removed 9:51:03 HR=71 bpm, LCHU=745/71 mmhg, SpO2=93.0 %, Resp=25 B/min, Pain=3, Yu=10, Mcgarry=2 9:54:09 Catheter was removed 9:54:11 Wire removed 1 mg VERSED given in lab by Juliet Hunt RN in Left Antecubital via Peripheral IV. Ordered by Luisa, 9:54:42 Suellen. 9:55:54 HR=68 bpm, TERM=052/68 mmhg, SpO2=96.0 %, Resp=13 B/min, Pain=3, Yu=10, Mcgarry=2 9:56:12 An injection in the Fem Art (right) was made through the SHEATH, FR6.5 DIOR 23CM FR 6.5 23 CM. 9:56:54 An injection in the Fem Art (right) was made through the SHEATH, FR6.5 DIOR 23CM FR 6.5 23 CM. 9:58:05 An injection in the Fem Art (right) was made through the SHEATH, FR6.5 DIOR 23CM FR 6.5 23 CM. 10:00:32 Case End 10:00:55 HR=65 bpm, KPWZ=456/57 mmhg, SpO2=91.0 %, Resp=23 B/min, Pain=3, Yu=10, Mcgarry=2 10:05:54 HR=65 bpm, JLRC=825/71 mmhg, SpO2=94.0 %, Resp=22 B/min, Pain=3, Yu=10, Mcgarry=2 10:08:36 Vitals capture stopped. 10:08:50 Catheter(s) removed without difficulty 10:08:52 Sheath(s) left in place, will be removed in Holding Area 10:08:57 Sterile dressing applied to site 10:08:59 No case complications noted. 10:09:01 Cine recording checked. 10:09:06 Bedside Report will be given. 10:09:31 Contrast Scanned 10:09:35 A Left and Right Heart Cath was performed. 10:12:[facility] - Contrast Media Used In Study Contrast Total Opened (mL) Total Used (mL) Total Wasted (mL) Omnipaque 75 75 0 End Study - Maximum Contrast Load Max Contrast Load (mL) 414.7 End Study - Radiation Exposure Fluoro Time (minutes) 19.2 End Study - Patient Disposition Complications Transferred To Interventional Outcome No Telemetry Bed No attempt made
[2016-08-25] MEDS ORDERED: SODIUM CHLOR 0.9% 1000 ML INJ 1,000 ML IV SCH (10:21)
--- NOTE | 2016-08-25 10:27 | EKG ---
Date Performed: 08/24/2016 Time Performed: 12:39:47 PTAGE: 75 years EKG: Sinus rhythm MINIMAL ST DEPRESSION BORDERLINE ECG INTERPRETATION BASED ON A DEFAULT AGE OF 39 YEARS NO PREVIOUS TRACING DOCTOR: Wing Mike Interpretating Date/Time 08/30/2016 12:43:07
[2016-08-25] MEDS ORDERED: MISC INFORMATION XX ONE (10:30)
[2016-08-25] MEDS ORDERED: NITROGLYCERIN-DEXTROSE INJ 250 ML ONE (10:34)
[2016-08-25 10:37] LABS: APTT (PATIENT) 31.4 SEC (24.3-30.1)
--- NOTE | 2016-08-25 10:39 | MA ---
cc: SUELLEN MORAN M.D., ANDREW J. M.D. DATE 08/25/2016 PROCEDURE PERFORMED Cardiac catheterization INDICATION FOR CATHETERIZATION Unstable angina CONSENT A fully informed consent was obtained from the patient. The risks of , bleeding, myocardial infarction, perforation, aspiration, foreseen and unforeseen complications were reviewed. The patient fully appeared to understand the risks. PROCEDURAL STATEMENT The patient prepped and draped in the usual manner. The right femoral artery was entered using a micropuncture technique via the 4-Guatemalan sheath. Left and right coronary catheters were used to try to intubate the left main, however, there was evidence of very severe aneurysmal tortuosity. The 4-Guatemalan sheath was upgraded to a long 6-Guatemalan sheath. Through the long 6-Guatemalan sheath, 6 and 5-Guatemalan catheters were used to intubate the left and right coronaries. Multiple angiographic views were carried out at the end of the catheterization procedure. A femoral angiogram are performed. Because of the position of the sheath, it was decided not to put an Angio-Seal. FINDINGS Hemodynamics: The aortic pressure was 132/68 with a mean of 95. There was evidence of a drop in pressure on the intubating the left main. The LV was not entered. Left main. This had a 60-80% eccentric ostial stenosis with severe dampening with the 6-Guatemalan catheter. Left anterior descending artery. This was heavily calcified. The left main was heavily calcified. There was heavy calcification of these vessel. The LAD had a mid 80% stenosis. There was also s medium to large diagonal branch. The circumflex vessel was also diffusely diseased with a 50-60% mid circumflex stenosis. The first obtuse marginal branch was large. It had 25% disease. The right coronary artery was a dominant vessel. In the mid RCA was a 99% stenosis, probably the angina causing lesion. There was a large posterior descending artery and large posterolateral branch. There is heavy calcification of the distal right. 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 PLAN Bypass surgery to the PDA, the LAD, diagonal and circumflex vessels. 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 PLAN The patient referred to Dr. Zamora. Suellen Moran MD, ANGEL,MEG COVARRUBIAS/GOLDYL /10:13 AM /10:29 AM
[2016-08-25 10:41] LABS: INTERNATIONAL NORMALIZED RATIO 1.8 RATIO; PROTHROMBIN TIME - PATIENT 19.9 SEC (9.8-11.6)
[2016-08-25] MEDS ORDERED: NITROGLYCERIN INJ 5 ML ONE (12:19)
--- NOTE | 2016-08-25 15:56 | ECHRPT ---
Indication: CONCLUSIONS Normal left ventricular size. Wall thickness is normal. The left ventricular systolic function is low normal with an estimated ejection fraction in the rang e of 50- 55%. Mild mitral valve regurgitation. Mild thickening of the mitral valve leaflets. The aortic valve is not well visualized. The transthoracic study is normal by two-dimensional, color flow imaging and Doppler interrogation. BP: 124 / 70 HR: Rhythm: Sinus MEASUREMENTS (Male / Female) Normal Values Technical Quality:Very technically difficult study 2D ECHO LV Diastolic Diameter PLAX 4.8 cm 4.2 - 5.9 / 3.9 - 5.3 cm LV Systolic Diameter PLAX 3.7 cm IVS Diastolic Thickness 0.9 cm 0.6 - 1.0 / 0.6 - 0.9 cm LVPW Diastolic Thickness 0.9 cm 0.6 - 1.0 / 0.6 - 0.9 cm LV Relative Wall Thickness 0.4 LVOT Diameter 2.2 cm Aortic Root Diameter 3.5 cm LA Systolic Diameter LX 3.9 cm 3.0 - 4.0 / 2.7 - 3.8 cm M-MODE AV Cusp Separation MM 1.6 cm DOPPLER AV Peak Velocity 101.0 cm/s AV Peak Gradient 4.1 mmHg AV Mean Gradient 2.0 mmHg AV Velocity Time Integral 20.9 cm LVOT Peak Velocity 109.0 cm/s LVOT Peak Gradient 4.8 mmHg LVOT Velocity Time Integral 19.6 cm AV Area Cont Eq vti 3.6 cm AV Area Cont Eq pk 4.1 cm FINDINGS LEFT VENTRICLE Normal left ventricular size. Wall thickness is normal. The left ventricular systolic function is low normal with an estimated ejection fraction in the rang e of 50- 55%. RIGHT VENTRICLE Normal right ventricular size and systolic function. LEFT ATRIUM The left atrial size is normal. RIGHT ATRIUM The right atrial size is normal. ATRIAL SEPTUM Normal atrial septal thickness without atrial level shunting by limited color doppler interrogation. AORTA The aortic root and proximal ascending aorta are normal in size on limited imaging. MITRAL VALVE Mild mitral valve regurgitation. Mild thickening of the mitral valve leaflets. AORTIC VALVE The aortic valve is not well visualized. No aortic valve stenosis or regurgitation. TRICUSPID VALVE Structurally normal tricuspid valve. No tricuspid valve stenosis or regurgitation. PULMONARY VALVE The pulmonary valve is not well visualized. PERICARDIUM No pericardial effusion. Wing Mike MD, FACC (Electronically Signed) Final Date:25 August 2016 15:56
[2016-08-25] MEDS ORDERED: NITROGLYCERIN/DEXTROSE 5% 250 ML for chest pain IV SCH (16:00)
--- NOTE | 2016-08-25 16:48 | PD.CAR.PN ---
CVT Progress Note Subjective/Hospital Course: pt seen and evaluated , full consult dictated sts data discussed with pt RISK SCORES About the STS Risk Calculator Procedure: CAB Only Risk of Mortality: 4.741% Morbidity or Mortality: 29.325% Long Length of Stay: 15.824% Short Length of Stay: 17.432% Permanent Stroke: 3.337% Prolonged Ventilation: 19.331% DSW Infection: 0.809% Renal Failure: 11.286% Reoperation: 9.936% Objective: Vital Signs Date Time Temp Pulse Resp B/P Pulse Ox O2 Delivery O2 Flow Rate FiO2 08/25/16 16:00 98.6 64 20 140/82 97 08/25/16 12:43 97.6 77 18 134/79 96 08/25/16 11:40 97.6 72 18 143/85 96 08/25/16 11:36 96 Nasal Cannula 3.00 08/25/16 11:29 97.6 64 18 138/85 96 08/25/16 11:26 97.6 64 20 138/85 97 08/25/16 10:58 98.9 65 18 131/59 96 08/25/16 10:45 98.9 65 18 124/71 96 08/25/16 10:30 98.9 64 18 121/70 96 08/25/16 08:36 18 08/25/16 08:35 18 08/25/16 07:51 98.1 64 18 124/70 96 08/25/16 07:51 92 08/25/16 06:25 130/73 08/25/16 06:00 80 08/25/16 05:00 82 08/25/16 04:00 88 08/25/16 03:00 98.1 95 18 165/101 97 08/25/16 03:00 92 08/25/16 02:00 75 08/25/16 01:00 64 08/25/16 00:00 98.1 76 18 63/101 96 08/25/16 00:00 76 08/24/16 23:00 66 08/24/16 21:21 150/92 08/24/16 21:00 88 08/24/16 21:00 98.0 98 18 187/109 90 08/24/16 20:00 88 08/24/16 19:00 76 08/24/16 17:20 98.3 88 18 107/104 95 Labs: Laboratory Tests Test 08/25/16 08/25/16 08/25/16 04:56 09:55 10:00 White Blood Count 9.6 TH/MM3 (4.0-11.0) Red Blood Count 4.51 MIL/MM3 (4.50-5.90) Hemoglobin 14.3 GM/DL (13.0-17.0) Hematocrit 43.6 % (39.0-51.0) Mean Corpuscular Volume 96.6 FL (80.0-100.0) Mean Corpuscular Hemoglobin 31.6 PG (27.0-34.0) Mean Corpuscular Hemoglobin 32.8 % Concent (32.0-36.0) Red Cell Distribution Width 14.3 % (11.6-17.2) Platelet Count 160 TH/MM3 (150-450) Mean Platelet Volume 8.5 FL (7.0-11.0) Neutrophils (%) (Auto) 75.3 % (16.0-70.0) Lymphocytes (%) (Auto) 12.8 % (9.0-44.0) Monocytes (%) (Auto) 9.2 % (0.0-8.0) Eosinophils (%) (Auto) 2.2 % (0.0-4.0) Basophils (%) (Auto) 0.5 % (0.0-2.0) Neutrophils # (Auto) 7.3 TH/MM3 (1.8-7.7) Lymphocytes # (Auto) 1.2 TH/MM3 (1.0-4.8) Monocytes # (Auto) 0.9 TH/MM3 (0-0.9) Eosinophils # (Auto) 0.2 TH/MM3 (0-0.4) Basophils # (Auto) 0.0 TH/MM3 (0-0.2) CBC Comment DIFF FINAL Differential Comment Prothrombin Time 20.1 SEC 19.9 SEC (9.8-11.6) (9.8-11.6) Prothromb Time International 1.8 RATIO 1.8 RATIO Ratio Sodium Level 138 MEQ/L (136-145) Potassium Level 4.6 MEQ/L (3.5-5.1) Chloride Level 103 MEQ/L (98-107) Carbon Dioxide Level 26.7 MEQ/L (21.0-32.0) Anion Gap 8 MEQ/L (5-15) Blood Urea Nitrogen 23 MG/DL (7-18) Creatinine 1.36 MG/DL (0.60-1.30) Estimat Glomerular Filtration 51 ML/MIN (>89) Rate Random Glucose 103 MG/DL (74-106) Calcium Level 8.8 MG/DL (8.5-10.1) Total Creatine Kinase 127 U/L (39-308) Creatine Kinase MB 4.8 NG/ML (0.5-3.6) Troponin I 1.00 NG/ML (0.02-0.05) Blood Type O POSITIVE Antibody Screen NEGATIVE Activated Partial 31.4 SEC Thromboplast Time (24.3-30.1) Result Diagram: 08/25/16 0456 08/25/16 0456 Casandra Barton Aug 25, 2016 16:48
[2016-08-25] MEDS ORDERED: METOPROLOL TARTRATE 25 MG TAB PO SCH (17:00)
[2016-08-25] MEDS ORDERED: ceFAZolin 2 GM PREMIX 50 ML IV SCH (17:00)
[2016-08-25] MEDS ORDERED: CEFAZOLIN INJ 500 MG in SODIUM CHLORIDE 0.9% IRR BTL 500 ML IRRIGATION SCH (17:00)
[2016-08-25] MEDS ORDERED: SODIUM CHLORIDE 0.9% FLUSH 10 ML FLUSH IV FLUSH PRN (17:00)
[2016-08-25] MEDS ORDERED: INSULIN REGULAR (IV INFUSION) 100 UNITS in SODIUM CHLORIDE 0.9% INJ 100 ML IV SCH (17:00)
[2016-08-25] MEDS ORDERED: PAPAVERINE INJ 60 MG, NITROGLYCERIN INJ 100 MCG, DILTIAZEM INJ 100 MG in SODIUM CHLORID... IRRIGATION SCH (17:00)
[2016-08-25] MEDS ORDERED: CHLORHEXIDINE GLUCONATE 4% SOLN 120 ML BTL TOPICAL SCH (17:00)
--- NOTE | 2016-08-25 17:10 | PD.VS.CON ---
History of Present Illness Chief Complaint: Thoracic Aneurysm Consult Requested by: History of Present Illness Pt c/o CP times 2 days "left shoulder" with epigastric pain times 2 days ( Ary Chavez) Past/Family/Social History Past Medical History AAA Atrial Fibrillation/ABLATION 2012 Anxiety Colon Cancer Bladder Cancer Cardiac Catheterization: (STENT 12/17) Cerebrovascular Accident Coronary Artery Disease GERD Hiatal Hernia Hypertension Myocardial Infarction Seizures (childhood) Past Surgical History Bladder Open Aortic repair Social History Etoh -occasional Tobacco- Quit smoking with 2 daughters [employer] Family History Father- AR age 55 Brother- AR age 42 (Ary Chavez) Home Medications Reported Medications Aspirin 325 Mg [id number] Mg PO DAILY #30 TAB Ref 0 08/24/16 Metoprolol Tartrate 25 Mg Tab25 Mg PO BID #60 TAB Ref 0 08/24/16 Enalapril 10 Mg Tab10 Mg PO DAILY #30 TAB Ref 0 08/24/16 Alprazolam (Xanax)0.25 Mg Tab0.25 Mg PO Q6H PRN (ANXIETY) Ref 0 08/24/16 Warfarin (Coumadin)5 Mg Tab5 Mg PO M,W,TH,SA #30 TAB Ref 0 08/24/16 Warfarin (Coumadin)7.5 Mg Tab7.5 Mg PO FREITAS,,FR #30 TAB Ref 0 08/24/16 Coded Allergies: HMG-CoA Reductase Inhibitors (Verified Allergy, Severe, 08/25/16) PATIENT REPORTS HE CAN NOT TAKE ANY STATINS PERIOD. HE LOSES USE OF HIS LEGS Lipitor (Verified Allergy, Severe, back pain and chest pain, 08/24/16) Simvastatin (Unverified Allergy, Severe, body aches, 08/24/16) Review of Systems Cardiovascular: COMPLAINS OF: Chest pain (Ary Chavez) Physical Exam Vitals/I&O Date Time Temp Pulse Resp B/P Pulse Ox O2 Delivery O2 Flow Rate FiO2 08/25/16 16:00 79 08/25/16 16:00 98.6 64 20 140/82 97 08/25/16 13:45 20 08/25/16 12:43 97.6 77 18 134/79 96 08/25/16 11:40 97.6 72 18 143/85 96 08/25/16 11:36 96 Nasal Cannula 3.00 08/25/16 11:29 97.6 64 18 138/85 96 08/25/16 11:26 97.6 64 20 138/85 97 08/25/16 10:58 98.9 65 18 131/59 96 08/25/16 10:45 98.9 65 18 124/71 96 08/25/16 10:30 98.9 64 18 121/70 96 08/25/16 08:36 18 08/25/16 07:51 98.1 64 18 124/70 96 08/25/16 07:51 92 08/25/16 06:25 130/73 08/25/16 06:00 80 08/25/16 05:00 82 08/25/16 04:00 88 08/25/16 03:00 98.1 95 18 165/101 97 08/25/16 03:00 92 08/25/16 02:00 75 08/25/16 01:00 64 08/25/16 00:00 98.1 76 18 63/101 96 08/25/16 00:00 76 08/24/16 23:00 66 08/24/16 21:21 150/92 08/24/16 21:00 88 08/24/16 21:00 98.0 98 18 187/109 90 08/24/16 20:00 88 08/24/16 19:00 76 08/24/16 17:20 98.3 88 18 107/104 95 Neuro: A&OX3 Abdomen: neg Abdominal pain neg Back pain (Ary Chavez) Laboratory Tests Test 08/24/16 08/25/16 08/25/16 08/25/16 22:46 04:56 09:55 10:00 Total Creatine Kinase 135 127 Creatine Kinase MB 5.7 4.8 Troponin I 0.82 1.00 White Blood Count 9.6 Red Blood Count 4.51 Hemoglobin 14.3 Hematocrit 43.6 Mean Corpuscular Volume 96.6 Mean Corpuscular Hemoglobin 31.6 Mean Corpuscular Hemoglobin 32.8 Concent Red Cell Distribution Width 14.3 Platelet Count 160 Mean Platelet Volume 8.5 Neutrophils (%) (Auto) 75.3 Lymphocytes (%) (Auto) 12.8 Monocytes (%) (Auto) 9.2 Eosinophils (%) (Auto) 2.2 Basophils (%) (Auto) 0.5 Neutrophils # (Auto) 7.3 Lymphocytes # (Auto) 1.2 Monocytes # (Auto) 0.9 Eosinophils # (Auto) 0.2 Basophils # (Auto) 0.0 CBC Comment DIFF FINAL Differential Comment Prothrombin Time 20.1 19.9 Prothromb Time International 1.8 1.8 Ratio Sodium Level 138 Potassium Level 4.6 Chloride Level 103 Carbon Dioxide Level 26.7 Anion Gap 8 Blood Urea Nitrogen 23 Creatinine 1.36 Estimat Glomerular Filtration 51 Rate Random Glucose 103 Calcium Level 8.8 Blood Type O POSITIVE Antibody Screen NEGATIVE Activated Partial 31.4 Thromboplast Time Last 48 hours Impressions Chest X-Ray 08/24/16 1244 Signed Impressions: Service Date/Time: Wednesday, August 24, 2016 13:03 - CONCLUSION: 1. Bibasilar atelectasis. 2. Cardiomegaly. Jacob Trujillo MD Aorta CTA 08/24/16 0000 Signed Impressions: Service Date/Time: Wednesday, August 24, 2016 15:47 - CONCLUSION: 1. Fusiform thoracoabdominal aortic aneurysm containing mild to moderate neural fundus with measurements as above. Largest caliber of the thoracic aorta distally near the aortic hiatus measures 5.4 cm. Largest caliber of the abdominal aorta in the supraceliac portion measures 4.2 cm. Largest caliber of the infrarenal abdominal aorta measures 4.1 cm with moderate mural thrombus. 2. No evidence for aortic dissection or aneurysm rupture/leak. 3. Moderate left hydroureteronephrosis extending to the UVJ without a radiopaque renal calculi or discernible mass on CT. Patient does have a history of bladder CA. Therefore, this likely reflects UVJ involvement by new or previously treated tumor. Clinical correlation is recommended. 4. Slightly prominent main pulmonary artery may reflect some degree of pulmonary artery hypertension. 5. Two adjacent 2-3 mm nodules in the right upper lower lobe. Followup examination may be performed in 12 months per 2017 Fleischner criteria as indicated. 6. Moderate to severe coronary artery calcifications. Richardson Haney MD (Ary Chavez) Assessment and Plan Assessment: (1) Thoracic aortic aneurysm without rupture Status: Acute Plan Pt remains w/ CP and is scheduled to have a cardiac bypass with Dr. Zamora on Tuesday Plan Dr Marx will review and discuss case with Dr. Zamora to determine best plan of action Ary DELGADO [facility] [phone] (Ary Chavez) Plan I agree with above a/p. Patient will need follow up for TAAA as an outpatient. No prophylactic repair for TAAA as patient needs symptomatic repair of coronary arteries. Consult appreciated. Murtaza Marx DO, FACS (Murtaza Marx DO) Ary Chavez Aug 25, 2016 17:10 Murtaza Marx DO Aug 26, 2016 14:29
[2016-08-25] MEDS ORDERED: ONDANSETRON HCL 4 MG/2 ML VIAL IV PUSH PRN (18:00)
[2016-08-25 19:16] LABS: APTT (PATIENT) 33.9 SEC (24.3-30.1); INTERNATIONAL NORMALIZED RATIO 1.5 RATIO; PROTHROMBIN TIME - PATIENT 16.8 SEC (9.8-11.6)
[2016-08-25 19:29] LABS: BICARBONATE 24.5 MEQ/L (21.0-32.0); POTASSIUM 4.7 MEQ/L (3.5-5.1)
--- NOTE | 2016-08-25 19:30 | RADRPT ---
EXAM DATE/TIME: 08/25/2016 18:11 [facility] COMPARISON: No previous studies available for comparison. INDICATIONS : Preop cardiac surgery. MEDICAL HISTORY : Myocardial infarction. Hypercholesterolemia. Hypertension. CAD. A-fib. GERD. Sleep apnea. Colon cance r. Bladder cancer. SURGICAL HISTORY : Abdominal aortic aneurysm repair. Coronary artery stent. Pacemaker. Colectomy. ENCOUNTER: Initial ACUITY: 1 day PAIN SCORE: 1/10 LOCATION: Bilateral neck PEAK SYSTOLIC VELOCITIES (cm/sec): ICA/CCA RATIO: Right: 0.9 Left: 1.0 ICA: Right: 70.7 Left: 84.5 CCA: Right: 82.2 Left: 84.7 ECA: Right: 155.8 Left: 147.4 VERTEBRAL: Right: 74.2 antegrade Left: 64.6 antegrade Elevated flow velocities and ICA/CCA ratios have been found to correlate with increased degrees of vessel stenosis, calculated as percentage of diameter relative to a normal segment of distal ICA/CCA FINDINGS: RIGHT CAROTID: No significant stenosis is visualized. The waveforms are within normal limits. LEFT CAROTID: No significant stenosis is visualized. The waveforms are within normal limits. Moderate atherosclero tic plaquing of the left common carotid artery. VERTEBRAL ARTERIES: Antegrade flow is seen in both vertebral arteries. MISCELLANEOUS: None. CONCLUSION: 1. No evidence for hemodynamically significant stenosis. Moderate atherosclerotic plaquing of the lef t common carotid artery. Ajay Prabhakar MD on August 25, 2016 at 19:28 Board Certified Radiologist. This report was verified electronically.
--- NOTE | 2016-08-25 19:31 | RADRPT ---
EXAM DATE/TIME: 08/25/2016 18:24 [facility] COMPARISON: No previous studies available for comparison. INDICATIONS : Preop cardiac surgery. MEDICAL HISTORY : Hypercholesterolemia. Hypertension. Myocardial infarction. CAD. A-fib. GERD. Sleep apnea. Colon cance r. Bladder cancer. SURGICAL HISTORY : Abdominal aortic aneurysm repair.Coronary artery stent. Pacemaker.Colectomy. ENCOUNTER: Initial ACUITY: 1 day PAIN SCORE: 1/10 LOCATION: Bilateral legs. TECHNIQUE: Venous ultrasound of the left and right leg was performed from the inguinal ligament to the proximal calf. Real-time, color Doppler and spectral tracing, compression and augmentation techniques were us ed. FINDINGS: RIGHT LEG: There is normal compressibility of the deep venous system from the inguinal region to the proximal ca lf. No echogenic clot is seen in the lumen of the common femoral, femoral, popliteal, and posterior tibial veins. There is a normal response of the venous system to proximal and distal augmentation an d respiration. LEFT LEG: There is normal compressibility of the deep venous system from the inguinal region to the proximal ca lf. No echogenic clot is seen in the lumen of the common femoral, femoral, popliteal, and posterior tibial veins. There is a normal response of the venous system to proximal and distal augmentation an d respiration. CONCLUSION: Normal examination. Ajay Prabhakar MD on August 25, 2016 at 19:30 Board Certified Radiologist. This report was verified electronically.
--- NOTE | 2016-08-25 19:31 | RADRPT ---
EXAM DATE/TIME: 08/25/2016 18:34 [facility] COMPARISON: No previous studies available for comparison. INDICATIONS : Preop cardiac surgery. MEDICAL HISTORY : Hypercholesterolemia. Hypertension. Myocardial infarction. CAD. A-fib. GERD. Sleep apnea. Colon cance r. Bladder cancer. SURGICAL HISTORY : Abdominal aortic aneurysm repair. Coronary artery stent. Pacemaker. Colectomy. ENCOUNTER: Initial ACUITY: 1 day PAIN SCORE: 1/10 LOCATION: Bilateral legs. GREATER SAPHENOUS VEIN THIGH: PROXIMAL: Right 5 mm Left 4 mm MID: Right 3 mm Left 4 mm DISTAL: Right 4 mm Left 4 mm CALF: PROXIMAL: Right 2 mm Left 2 mm MID: Right 2 mm Left 2 mm DISTAL: Right 2 mm Left 2 mm FINDINGS: The venous system of the lower extremities are patent by color Doppler imaging. Measurements of the leg veins (in mm) are listed above. CONCLUSION: 1. Venous mapping as above. Interrogated vessels are patent. Ajay Prabhakar MD on August 25, 2016 at 19:29 Board Certified Radiologist. This report was verified electronically.
[2016-08-25] MEDS ORDERED: HEPARIN-D5W INJ 250 ML IV SCH (20:00)
[2016-08-25] MEDS: PRAVASTATIN SOD 10 MG TAB PO SCH (21:00)
[2016-08-25] MEDS: SODIUM CHLORIDE 0.9% FLUSH 10 ML FLUSH IV FLUSH SCH (21:00)
--- NOTE | 2016-08-25 22:19 | HHI.PR ---
Subjective Remarks Patient has been having chest pain on and off denies sob vital signs stables Objective Vitals Vital Signs Date Time Temp Pulse Resp B/P Pulse Ox O2 Delivery O2 Flow Rate FiO2 08/25/16 21:00 99.1 81 18 104/62 93 08/25/16 19:15 92 5.00 08/25/16 19:00 92 08/25/16 16:00 79 08/25/16 16:00 98.6 64 20 140/82 97 08/25/16 13:45 20 08/25/16 12:43 97.6 77 18 134/79 96 08/25/16 11:40 97.6 72 18 143/85 96 08/25/16 11:36 96 Nasal Cannula 3.00 08/25/16 11:29 97.6 64 18 138/85 96 08/25/16 11:26 97.6 64 20 138/85 97 08/25/16 10:58 98.9 65 18 131/59 96 08/25/16 10:45 98.9 65 18 124/71 96 08/25/16 10:30 98.9 64 18 121/70 96 08/25/16 08:36 18 08/25/16 07:51 98.1 64 18 124/70 96 08/25/16 07:51 92 08/25/16 06:25 130/73 08/25/16 06:00 80 08/25/16 05:00 82 08/25/16 04:00 88 08/25/16 03:00 98.1 95 18 165/101 97 08/25/16 03:00 92 08/25/16 02:00 75 08/25/16 01:00 64 08/25/16 00:00 98.1 76 18 63/101 96 08/25/16 00:00 76 08/24/16 23:00 66 I/O 08/24/16 08/24/16 08/24/16 08/25/16 08/25/16 08/25/16 07:00 15:00 23:00 07:00 15:00 23:00 Intake Total 310 ml 1491 ml Output Total 500 ml 500 ml 450 ml Balance -500 ml -190 ml 1041 ml Intake Oral 240 ml 360 ml IV Total 70 ml 1131 ml Output Urine Total 500 ml 500 ml 450 ml # Voids 1 # Bowel Movements 0 0 Result Diagram: 7/19/17 0456 08/25/16 1829 Imaging Last Impressions Lower Extremity Ultrasound 08/25/16 0000 Signed Impressions: Service Date/Time: Thursday, August 25, 2016 18:34 - CONCLUSION: 1. Venous mapping as above. Interrogated vessels are patent. Ajay Prabhakar MD Carotid Artery Ultrasound 08/25/16 0000 Signed Impressions: Service Date/Time: Thursday, August 25, 2016 18:11 - CONCLUSION: 1. No evidence for hemodynamically significant stenosis. Moderate atherosclerotic plaquing of the left common carotid artery. Ajay Prabhakar MD Chest X-Ray 08/24/16 1244 Signed Impressions: Service Date/Time: Wednesday, August 24, 2016 13:03 - CONCLUSION: 1. Bibasilar atelectasis. 2. Cardiomegaly. Jacob Trujillo MD Aorta CTA 08/24/16 0000 Signed Impressions: Service Date/Time: Wednesday, August 24, 2016 15:47 - CONCLUSION: 1. Fusiform thoracoabdominal aortic aneurysm containing mild to moderate neural fundus with measurements as above. Largest caliber of the thoracic aorta distally near the aortic hiatus measures 5.4 cm. Largest caliber of the abdominal aorta in the supraceliac portion measures 4.2 cm. Largest caliber of the infrarenal abdominal aorta measures 4.1 cm with moderate mural thrombus. 2. No evidence for aortic dissection or aneurysm rupture/leak. 3. Moderate left hydroureteronephrosis extending to the UVJ without a radiopaque renal calculi or discernible mass on CT. Patient does have a history of bladder CA. Therefore, this likely reflects UVJ involvement by new or previously treated tumor. Clinical correlation is recommended. 4. Slightly prominent main pulmonary artery may reflect some degree of pulmonary artery hypertension. 5. Two adjacent 2-3 mm nodules in the right upper lower lobe. Followup examination may be performed in 12 months per 2017 Fleischner criteria as indicated. 6. Moderate to severe coronary artery calcifications. Richardson Haney MD Objective Remarks GENERAL: This is a well-nourished, well-developed patient, in no apparent distress. SKIN: No rashes, warm and dry HEAD: Atraumatic. Normocephalic. EYES: Pupils equal round and reactive. Extraocular motions intact. No scleral icterus. ENT: Nose without bleeding, or drainage, Airway patent. NECK: Trachea midline. Supple CARDIOVASCULAR: Regular rate and rhythm without murmurs, gallops, or rubs. RESPIRATORY: Fair air entry bilaterally. No wheezes, rales, or rhonchi. GASTROINTESTINAL: Abdomen soft, non-tender, nondistended. Positive bowel sounds MUSCULOSKELETAL: Extremities without clubbing, cyanosis, or edema. Pedal pulses appreciated NEUROLOGICAL: Awake and alert. Moves all extremity. Normal speech.no focal neurological deficit Medications and IVs Current Medications Medications (Trade) Dose Ordered Sig/Awilda Route Start Time Stop Time Status Last Admin (NS Flush) 2 ml UNSCH PRN IVF 08/24/16 12:45 (Nitrostat Sl) 0.4 mg Q5M PRN SL 08/24/16 15:15 08/25/16 08:11 (Morphine Inj) 2 mg Q30M PRN IV 08/24/16 15:15 08/25/16 17:40 (Prinivil) 5 mg DAILY PO 08/24/16 16:00 Hold 08/25/16 08:10 (Pravachol) 10 mg HS PO 08/24/16 21:00 (Trandate Inj) 10 mg Q4H PRN IV PUSH 08/24/16 15:15 Miscellaneous 1 ea 1 ea UNSCH PRN OTHER 08/24/16 15:30 Sodium Chloride 1,000 ml @ 30 mls/hr Q24H IV 08/25/16 08:31 08/30/16 08:30 Sodium Chloride 1,000 ml @ 0 mls/hr Q0M IV 08/25/16 10:21 Nitroglycerin/ Dextrose 250 ml @ 0 mls/hr TITRATE IV 08/25/16 16:00 08/26/16 04:52 (Heparin-D5W Inj) 250 ml @ 0 mls/hr TITRATE IV 08/25/16 20:00 08/25/16 21:08 (Norvasc) 5 mg DAILY PO 08/26/16 09:00 (NS Flush) 2 ml BID IV FLUSH 08/25/16 21:00 (NS Flush) 2 ml UNSCH PRN IV FLUSH 08/25/16 17:00 (Lopressor) 12.5 mg Q12HR PO 08/25/16 21:00 08/25/16 21:06 Ondansetron HCl 4 mg 4 mg Q6H PRN IV PUSH 08/25/16 18:00 (Rocephin Inj/NS Inj) 100 ml @ 200 mls/hr Q24H IV 08/26/16 09:00 UNV (Zithromax) 500 mg DAILY PO 08/26/16 09:00 UNV Urinary Catheter: No Vascular Central Line Catheter: No A/P Problem List: (1) ACS (acute coronary syndrome) ICD Code: I24.9 Status: Acute Plan: 25-year-old male with history of hypertension, hyperlipidemia, AAA, ascending aortic aneurysm, 5 cm who presented with chest pain radiating to the jaw and between the shoulder blades with elevation of troponins up to 0.06. Pain was initially relieved with nitroglycerin. Suspicious for aortic aneurysm dissection versus ACS. Cardiology contacted from emergency department who requested transfer to the [facility]. Initially aspirin treatment was held until dissection was ruled out. CT of the aorta showed a fusiform thoracoabdominal aortic aneurysm which measures 5.4 cm. The largest caliber of the abdominal aorta in the supraceliac portion measures 4.2 cm. The largest caliber of the infrarenal abdominal aorta measures 4.1 cm with moderate mitral thrombus. However no evidence of aortic dissection or aneurysm rupture/leak. There is a moderate left hydroureteronephrosis extending to the UVJ without right hepatic renal calculi or discernible mass on CT. Patient has a history of bladder cancer. Therefore , this likely reflects UVJ involvement by new or previously treated tumor. Slightly prominent main pulmonary artery may reflect some degree of pulmonary artery hypertension. 2 absent 2-3 mm nodules in the right upper lobes. Moderate to severe coronary artery calcifications. Pathology was consulted and the patient underwent cardiac catheterization with findings of severe three-vessel coronary artery disease with severe aneurysmal dilation of the entire aorta. The plan is for bypass surgery to the PDA, the LAD, the diagonal and circumflex vessels. Cardio vascular surgery was consulted. Vascular surgery also has been consulted given aortic aneurysm. (2) NSTEMI (non-ST elevated myocardial infarction) ICD Code: I21.4 Status: Acute Plan: Continue aspirin, beta chai, statin Continue to monitor cardiac enzymes (3) Unstable angina ICD Code: I20.0 Status: Acute Plan: As above (4) Thoracic aortic aneurysm without rupture ICD Code: I71.2 Status: Acute Plan: Vascular surgery consulted. Follow-up recommendations (5) CKD (chronic kidney disease), stage III ICD Code: N18.3 Status: Acute Plan: Upon review of records the patient has had decreased GFR since 2007 with a baseline creatinine of 1.2. Continue to monitor BUN/creatinine, avoid nephrotoxins. Assessment and Plan DVT prophylaxis: SCDs Vu Sarah MD Aug 25, 2016 22:19
[2016-08-26] VITALS (9 sets, daily range): BP systolic 101–137; BP diastolic 54–84; PULSE 79–102; RESP 18–22; TEMP 98.7–99.7; O2SAT 92–97
[2016-08-26 03:14] LABS: BLOOD, URINE NEG (NEG); GLUCOSE,URINE NEG (NEG); KETONE, URINE NEG (NEG); MUCUS URINE FEW /lpf (OCC); NITRITE,URINE NEG (NEG); URINE COLOR YELLOW (YELLW/STRAW)
[2016-08-26 03:15] LABS: COMMENT (UR) CULT NOT INDICATED; CULTURE IF INDICATED CULT NOT INDICATED
[2016-08-26 04:07] LABS: INTERNATIONAL NORMALIZED RATIO 1.3 RATIO; PROTHROMBIN TIME - PATIENT 14.6 SEC (9.8-11.6)
[2016-08-26] MEDS ORDERED: NITROGLYCERIN-DEXTROSE INJ 250 ML IV ONE (05:00)
[2016-08-26] MEDS ORDERED: CALCIUM CHLORIDE 10% SOLN 1 GRAM/10 ML SYR IV ONE (05:00)
[2016-08-26] MEDS ORDERED: EPINEPHrine HCL (1:1000) 1 MG/ML VIAL IV ONE (05:00)
[2016-08-26] MEDS ORDERED: PROTAMINE SULFATE 250 MG/25 ML VIAL IV ONE (05:00)
[2016-08-26] MEDS ORDERED: AMINOCAPROIC ACID INJ 250 MG/ML 20 ML VIAL IV ONE ×2 (05:00→12:58)
[2016-08-26] MEDS ORDERED: HEPARIN SODIUM - SQ 10,000 UNITS/ML VIAL SQ ONE (05:00)
[2016-08-26] MEDS ORDERED: SODIUM BICARBONATE 8.4% INJ 50 MEQ/50 ML SYR IV ONE (05:00)
[2016-08-26] MEDS ORDERED: MAGNESIUM SULFATE 1000 MG/2 ML VIAL (PED) IV ONE (05:00)
[2016-08-26] MEDS ORDERED: VECURONIUM BROMIDE 10 MG VIAL IV ONE ×2 (05:00→12:58)
[2016-08-26] MEDS ORDERED: PHENYLEPHRINE HCL 10 MG/ML VIAL IV ONE (05:00)
--- NOTE | 2016-08-26 08:22 | MB ---
cc: CECE ZAMORA DATE OF CONSULTATION 08/25/16 DATE OF 1940 A 75-year-old male. This patient of Dr. Moran. No primary care physician listed. HISTORY OF PRESENT ILLNESS This gentleman was admitted to the emergency department complaining of chest pain mostly retrosternal 09/16, came in on the . While lying down improved, with sitting up, no accompanied diaphoresis, lightheadedness. The pain was also in that left shoulder area and was given some nitro which improved the pain. The patient has had prior ascending aortic aneurysm which is followed by the [facility]. States he has had open abdominal aortic aneurysm 8 years ago at [facility] by Dr. Santos. They did an aorta CTA of the chest which shows the descending thoracic aorta, mildly atactic, measuring 3.6 cm. A stented three arch anatomy. Moderately calcifications were noted in the left subclavian. The descending thoracic aorta was tortuous and aneurysmal measuring 4.4 cm proximately and 5.4 cm distally near the hiatus. No evidence for suggestion of leak or rupture or dissection. Did show some left hydroureteronephrosis, prior history of bladder cancer. Two adjacent 2-3 mm nodules in the right upper lobe. Recommend followup in 12 months and moderate to severe coronary artery calcification. 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 PAST MEDICAL HISTORY Other history includes hypertension, hyperlipidemia, history of colon cancer, 5 years ago he had bladder cancer where he had some type of surgery. Atrial fibrillation with status post ablation in 2009. History of CO in 1999. Also in 2010 status post stent. History of CVA, carotid stenosis, history of thoracic and abdominal aneurysms. He has had a history of [facility] pacemaker placed in [facility]. Surgeries include coronary stent in 2004. History of atrial ablation. Carotid endarterectomy 2013. Colectomy. History of pacemaker and pocket infection with removal of the pacemaker in 2010. ALLERGIES THE PATIENT HAS ALLERGIES TO STATINS. MEDICATIONS Home medications include: 1. Enalapril. 2. Coumadin. 3. Xanax. 4. Metoprolol. 5. Aspirin. FAMILY HISTORY Father from old age. The mother had at 55 from heart disease. SOCIAL HISTORY The patient , two children. Smoked one-pack per week for over 20 years, quit many years ago. Rare alcohol. Retired from the . REVIEW OF SYSTEMS GENERAL: In general no night sweats, fever, heat or cold intolerance. SKIN: No psoriasis, itching or hives. HEENT: No blurred vision, hearing loss. RESPIRATORY: No cough, shortness of breath. CARDIOVASCULAR: As above in HPI. GASTROINTESTINAL: No diarrhea, vomiting. GENITOURINARY: No burning frequency, urgency. 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 ENDOCRINOLOGY: No history of diabetes and/or hypothyroidism. PHYSICAL EXAMINATION VITAL SIGNS: Blood pressure 134/70, heart rate 77, temperature max 97.6. GENERAL: Patient is awake, alert, no acute distress. He is however, still complaining of some chest discomfort, a 2/10 and is on a nitroglycerin drip at 10 mics. HEENT: Head is normocephalic, atraumatic. Pupils are equal, reactive. Oral mucosa pink, moist. He has got fair dentition. He has his own teeth with some multiple fillings. No dental caries noted. NECK: Supple. No JVD. HEART: Heart sounds S1-S2, regular rate and rhythm. No rubs, murmurs, gallops. LUNGS: Clear to auscultation. No wheezes, rales or rhonchi. ABDOMEN: Soft, nontender. No masses or organomegaly. EXTREMITIES: No cyanosis, clubbing or edema. LABORATORY DATA Lab work shows hemoglobin 14, hematocrit of 43, white cell count of 9.6, platelet count 160, sodium 138, potassium 4.6, BUN 23 with creatinine of 1.36. Troponin elevated at 1.0,. AST 24, ALT 25. INR 1.8, repeat pending in a.m. IMAGING STUDIES Aorta CTA as above. Chest x-ray with some basilar atelectasis and cardiomegaly. IMPRESSION 1. This is a 75-year-old male with unstable angina underwent cardiac cath by Dr. Moran. Severe three-vessel disease with severe aneurysmal dilation of the entire aorta. Recommendation was for bypass to the PDA, the LAD, diagonal and circumflex vessels. The cardiac films have been reviewed by Dr. Cece Zamora. Planning will be for coronary artery bypass graft x4 on Tuesday. In the meantime discontinue his Coumadin. He will be placed on heparin drip which will be discontinued prior to surgery. Recheck INR. 2. He has got multiple history of aortic abdominal aneurysm repair with thoracic and abdominal aneurysms that is being followed. 3. History of atrial fibrillation post ablation and prior CO. 4. History of hypertension. Will stop his LASHELL in lieu of his surgery. Will add amlodipine. 5. Hyperlipidemia, he is intolerant to statins. There has been a vascular consult also placed with Dr. Marx in regards to his thoracic and abdominal aneurysms. Further planning as per their discretion. Dictated by DANNY Thrasher Cece MD LORENZO Connelly/NANCY /4:39 PM /8:20 AM
[2016-08-26] MEDS: SODIUM CHLOR 0.9% 1000 ML INJ 1,000 ML IV SCH (08:31)
[2016-08-26] MEDS ORDERED: RESP: ALBUTEROL 2.5 MG/IPRATROPIUM 0.5 MG NEB (PRN) ONE (08:57)
[2016-08-26] MEDS ORDERED: amLODIPine BESYLATE 5 MG TAB PO SCH (09:00)
[2016-08-26] MEDS ORDERED: AZITHROMYCIN 250 MG TAB PO SCH (09:00)
[2016-08-26] MEDS ORDERED: cefTRIAXone INJ 1,000 MG in SODIUM CHLORIDE 0.9% INJ 100 ML IV SCH (09:00)
[2016-08-26] MEDS: SODIUM CHLORIDE 0.9% FLUSH 10 ML FLUSH IV FLUSH SCH (09:44)
[2016-08-26] MEDS: METOPROLOL TARTRATE 25 MG TAB PO SCH (09:44)
--- NOTE | 2016-08-26 09:56 | HHI.PR ---
Subjective Remarks Patient has had hemoptysis this am denies sob denies cp no fevers stable vital signs Objective Vitals Vital Signs Date Time Temp Pulse Resp B/P Pulse Ox O2 Delivery O2 Flow Rate FiO2 08/26/16 09:02 95 Nasal Cannula 4.00 08/26/16 08:10 22 08/26/16 07:00 99.3 88 22 137/79 92 08/26/16 07:00 92 Nasal Cannula 5.00 08/26/16 07:00 90 08/26/16 04:00 99.7 82 18 111/59 94 08/26/16 04:00 93 5.00 08/26/16 03:20 94 08/26/16 00:00 98.7 82 18 125/74 97 08/26/16 00:00 92 5.00 08/25/16 23:20 80 08/25/16 22:30 94 Nasal Cannula 4.00 08/25/16 21:00 99.1 81 18 104/62 93 08/25/16 19:15 92 5.00 08/25/16 19:00 92 08/25/16 16:00 79 08/25/16 16:00 98.6 64 20 140/82 97 08/25/16 13:45 20 08/25/16 12:43 97.6 77 18 134/79 96 08/25/16 11:40 97.6 72 18 143/85 96 08/25/16 11:36 96 Nasal Cannula 3.00 08/25/16 11:29 97.6 64 18 138/85 96 08/25/16 11:26 97.6 64 20 138/85 97 08/25/16 10:58 98.9 65 18 131/59 96 08/25/16 10:45 98.9 65 18 124/71 96 08/25/16 10:30 98.9 64 18 121/70 96 I/O 08/25/16 08/25/16 08/25/16 08/26/16 08/26/16 08/26/16 06:59 14:59 22:59 06:59 14:59 22:59 Intake Total 310 ml 1491 ml 358 ml Output Total 500 ml 450 ml 300 ml Balance -190 ml 1041 ml 58 ml Intake Oral 240 ml 360 ml 240 ml IV Total 70 ml 1131 ml 118 ml Output Urine Total 500 ml 450 ml 300 ml # Voids 1 # Bowel Movements 0 0 0 Result Diagram: 08/25/16 0456 08/25/16 1829 Imaging Last Impressions Chest X-Ray 08/26/16 0000 Signed Impressions: Service Date/Time: August 09:26 - CONCLUSION: 1. Improved right lower lung zone aeration with persistent volume loss and left lower lobe airspace disease likely reflecting atelectasis. 2. Cardiomegaly. Richardson Haney MD Lower Extremity Ultrasound 08/25/16 0000 Signed Impressions: Service Date/Time: Thursday, August 25, 2016 18:34 - CONCLUSION: 1. Venous mapping as above. Interrogated vessels are patent. Ajay Prabhakar MD Carotid Artery Ultrasound 08/25/16 0000 Signed Impressions: Service Date/Time: Thursday, August 25, 2016 18:11 - CONCLUSION: 1. No evidence for hemodynamically significant stenosis. Moderate atherosclerotic plaquing of the left common carotid artery. Ajay Prabhakar MD Aorta CTA 08/24/16 0000 Signed Impressions: Service Date/Time: Wednesday, August 24, 2016 15:47 - CONCLUSION: 1. Fusiform thoracoabdominal aortic aneurysm containing mild to moderate neural fundus with measurements as above. Largest caliber of the thoracic aorta distally near the aortic hiatus measures 5.4 cm. Largest caliber of the abdominal aorta in the supraceliac portion measures 4.2 cm. Largest caliber of the infrarenal abdominal aorta measures 4.1 cm with moderate mural thrombus. 2. No evidence for aortic dissection or aneurysm rupture/leak. 3. Moderate left hydroureteronephrosis extending to the UVJ without a radiopaque renal calculi or discernible mass on CT. Patient does have a history of bladder CA. Therefore, this likely reflects UVJ involvement by new or previously treated tumor. Clinical correlation is recommended. 4. Slightly prominent main pulmonary artery may reflect some degree of pulmonary artery hypertension. 5. Two adjacent 2-3 mm nodules in the right upper lower lobe. Followup examination may be performed in 12 months per 2017 Fleischner criteria as indicated. 6. Moderate to severe coronary artery calcifications. Richardson Haney MD Objective Remarks GENERAL: This is a well-nourished, well-developed patient, in no apparent distress. SKIN: No rashes, warm and dry HEAD: Atraumatic. Normocephalic. EYES: Pupils equal round and reactive. Extraocular motions intact. No scleral icterus. ENT: Nose without bleeding, or drainage, Airway patent. NECK: Trachea midline. Supple CARDIOVASCULAR: Regular rate and rhythm without murmurs, gallops, or rubs. RESPIRATORY: Fair air entry bilaterally. No wheezes, rales, or rhonchi. GASTROINTESTINAL: Abdomen soft, non-tender, nondistended. Positive bowel sounds MUSCULOSKELETAL: Extremities without clubbing, cyanosis, or edema. Pedal pulses appreciated NEUROLOGICAL: Awake and alert. Moves all extremity. Normal speech.no focal neurological deficit Procedures sp cardiac catheterization Medications and IVs Current Medications Medications (Trade) Dose Ordered Sig/Awilda Route Start Time Stop Time Status Last Admin (NS Flush) 2 ml UNSCH PRN IVF 08/24/16 12:45 (Nitrostat Sl) 0.4 mg Q5M PRN SL 08/24/16 15:15 08/25/16 08:11 (Morphine Inj) 2 mg Q30M PRN IV 08/24/16 15:15 08/25/16 17:40 (Prinivil) 5 mg DAILY PO 08/24/16 16:00 Hold 08/25/16 08:10 (Pravachol) 10 mg HS PO 08/24/16 21:00 (Trandate Inj) 10 mg Q4H PRN IV PUSH 08/24/16 15:15 Miscellaneous 1 ea 1 ea UNSCH PRN OTHER 08/24/16 15:30 Sodium Chloride 1,000 ml @ 30 mls/hr Q24H IV 08/25/16 08:31 08/30/16 08:30 Sodium Chloride 1,000 ml @ 0 mls/hr Q0M IV 08/25/16 10:21 (Nitroglycerin-Dextrose Inj) 250 ml @ 0 mls/hr TITRATE IV 08/25/16 16:00 08/26/16 04:52 (Norvasc) 5 mg DAILY PO 08/26/16 09:00 08/26/16 09:44 (NS Flush) 2 ml BID IV FLUSH 08/25/16 21:00 08/26/16 09:44 (NS Flush) 2 ml UNSCH PRN IV FLUSH 08/25/16 17:00 (Lopressor) 12.5 mg Q12HR PO 08/25/16 21:00 08/26/16 09:44 (Zofran Inj) 4 mg Q6H PRN IV PUSH 08/25/16 18:00 Urinary Catheter: No Vascular Central Line Catheter: No A/P Problem List: (1) ACS (acute coronary syndrome) ICD Code: I24.9 Status: Acute Plan: 25-year-old male with history of hypertension, hyperlipidemia, AAA, ascending aortic aneurysm, 5 cm who presented with chest pain radiating to the jaw and between the shoulder blades with elevation of troponins up to 0.06. Pain was initially relieved with nitroglycerin. Suspicious for aortic aneurysm dissection versus ACS. Cardiology contacted from emergency department who requested transfer to the main hospital. Initially aspirin treatment was held until dissection was ruled out. CT of the aorta showed a fusiform thoracoabdominal aortic aneurysm which measures 5.4 cm. The largest caliber of the abdominal aorta in the supraceliac portion measures 4.2 cm. The largest caliber of the infrarenal abdominal aorta measures 4.1 cm with moderate mitral thrombus. However no evidence of aortic dissection or aneurysm rupture/leak. There is a moderate left hydroureteronephrosis extending to the UVJ without right hepatic renal calculi or discernible mass on CT. Patient has a history of bladder cancer. Therefore , this likely reflects UVJ involvement by new or previously treated tumor. Slightly prominent main pulmonary artery may reflect some degree of pulmonary artery hypertension. 2 absent 2-3 mm nodules in the right upper lobes. Moderate to severe coronary artery calcifications. Pathology was consulted and the patient underwent cardiac catheterization with findings of severe three-vessel coronary artery disease with severe aneurysmal dilation of the entire aorta. The plan is for bypass surgery to the PDA, the LAD, the diagonal and circumflex vessels. Cardio vascular surgery was consulted. Vascular surgery also has been consulted given aortic aneurysm. 08/26 case discussed with Casandra Barton and the patient is scheduled for CABG tomorrow. Due to patient's hemoptysis, agree with discontinuation of heparin. Pulmonology consulted. (2) NSTEMI (non-ST elevated myocardial infarction) ICD Code: I21.4 Status: Acute Plan: Continue aspirin, beta chai, statin Continue to monitor cardiac enzymes (3) Unstable angina ICD Code: I20.0 Status: Acute Plan: As above (4) Thoracic aortic aneurysm without rupture ICD Code: I71.2 Status: Acute Plan: Vascular surgery consulted. Follow-up recommendations (5) ANNY (acute kidney injury) ICD Code: N17.9 Status: Acute Plan: Patient initially with a creatinine of 1.6 which improved with IV fluid administration down to 1.3. Likely ANNY in CKD stage III, now creatinine back to baseline. (6) CKD (chronic kidney disease), stage III ICD Code: N18.3 Status: Acute Plan: Upon review of records the patient has had decreased GFR since 2007 with a baseline creatinine of 1.2. Continue to monitor BUN/creatinine, avoid nephrotoxins. (7) Hemoptysis ICD Code: R04.2 Status: Acute Plan: Initially patient on Coumadin due to atrial fibrillation with an INR of 1.8, Coumadin was held and INR now 1.3. The patient will start heparin IV for treatment of unstable angina and acute coronary syndrome. Patient states that he has had episodes of cough and hemoptysis for the past week. Last episode this morning. Discontinue IV heparin. Pulmonary consulted by CT surgery. Given history of bladder and colon cancer the patient will likely need to have a bronchoscopy. Supplement with oxygen to keep oxygen saturation more than 92%. Chest x-ray shows improved right lower lung zone radiation with persistent volume loss in left lower lobe airspace disease likely reflecting atelectasis. Cardiomegaly. I will prescribe incentive spirometer. (8) Hydroureteronephrosis ICD Code: N13.30 Status: Acute Plan: CT of the aorta also mentions a moderate left hydroureteronephrosis extending to the UVJ without radiopaque renal calculi or discernible mass on CT. Patient has a history of bladder cancer which has been treated. Will order a dedicated CT abdomen and pelvis to better assess this finding. Assessment and Plan DVT prophylaxis: SCDs, previously on heparin IV, hold due to hemoptysis. Vu Sarah MD Aug 26, 2016 09:56
[2016-08-26] MEDS ORDERED: LEVOFLOXACIN 500 MG PREMIX INJ 100 ML IV SCH (10:00)
--- NOTE | 2016-08-26 10:19 | RADRPT ---
EXAM DATE/TIME: 08/26/2016 09:26 [facility] COMPARISON: CHEST SINGLE AP, August 24, 2016, 13:03. INDICATIONS : Hemoptysis. MEDICAL HISTORY : Hypertension. Carcinoma, colon. Myocardial infarction. Afib. Coronary artery disease. Hiatal jos ia. SURGICAL HISTORY : Abdominal aortic aneurysm repair. Ablation. Cardiac cath. ENCOUNTER: Subsequent ACUITY: 4 - 6 days PAIN SCORE: 0/10 LOCATION: Bilateral chest FINDINGS: Improved aeration in the right lower lung zone. Elevation of the left hemidiaphragm with mild left lo wer lobe airspace disease. Cardiac silhouette remain enlarged. Remainder of the exam is unchanged. CONCLUSION: 1. Improved right lower lung zone aeration with persistent volume loss and left lower lobe airspace d isease likely reflecting atelectasis. 2. Cardiomegaly. Richardson Haney MD on August 26, 2016 at 10:17 Board Certified Radiologist. This report was verified electronically.
--- NOTE | 2016-08-26 10:48 | PD.CARD.PN ---
Subjective Subjective Remarks The patient admits to ongoing hemoptysis that is less compared to yesterday morning. INR 1.3 this morning. Heparin recently discontinued per CV surgery. The patient denies chest pain overnight. No pain of groin site. Hemodynamically stable (Elin Kwok) Objective Medications Current Medications Medications (Trade) Dose Ordered Sig/Awilda Route Start Time Stop Time Status Last Admin (NS Flush) 2 ml UNSCH PRN IVF 08/24/16 12:45 (Nitrostat Sl) 0.4 mg Q5M PRN SL 08/24/16 15:15 08/25/16 08:11 (Morphine Inj) 2 mg Q30M PRN IV 08/24/16 15:15 08/25/16 17:40 (Prinivil) 5 mg DAILY PO 08/24/16 16:00 Hold 08/25/16 08:10 (Pravachol) 10 mg HS PO 08/24/16 21:00 (Trandate Inj) 10 mg Q4H PRN IV PUSH 08/24/16 15:15 Miscellaneous 1 ea 1 ea UNSCH PRN OTHER 08/24/16 15:30 Sodium Chloride 1,000 ml @ 30 mls/hr Q24H IV 08/25/16 08:31 08/30/16 08:30 Sodium Chloride 1,000 ml @ 0 mls/hr Q0M IV 08/25/16 10:21 (Nitroglycerin-Dextrose Inj) 250 ml @ 0 mls/hr TITRATE IV 08/25/16 16:00 08/26/16 04:52 (Norvasc) 5 mg DAILY PO 08/26/16 09:00 08/26/16 09:44 (NS Flush) 2 ml BID IV FLUSH 08/25/16 21:00 08/26/16 09:44 (NS Flush) 2 ml UNSCH PRN IV FLUSH 08/25/16 17:00 (Lopressor) 12.5 mg Q12HR PO 08/25/16 21:00 08/26/16 09:44 (Zofran Inj) 4 mg Q6H PRN IV PUSH 08/25/16 18:00 Vital Signs / I&O Vital Signs Date Time Temp Pulse Resp B/P Pulse Ox O2 Delivery O2 Flow Rate FiO2 08/26/16 09:02 95 Nasal Cannula 4.00 08/26/16 08:10 22 08/26/16 07:00 99.3 88 22 137/79 92 08/26/16 07:00 92 Nasal Cannula 5.00 08/26/16 07:00 90 08/26/16 04:00 99.7 82 18 111/59 94 08/26/16 04:00 93 5.00 08/26/16 03:20 94 08/26/16 00:00 98.7 82 18 125/74 97 08/26/16 00:00 92 5.00 08/25/16 23:20 80 08/25/16 22:30 94 Nasal Cannula 4.00 08/25/16 21:00 99.1 81 18 104/62 93 08/25/16 19:15 92 5.00 08/25/16 19:00 92 08/25/16 16:00 79 08/25/16 16:00 98.6 64 20 140/82 97 08/25/16 13:45 20 08/25/16 12:43 97.6 77 18 134/79 96 08/25/16 11:40 97.6 72 18 143/85 96 08/25/16 11:36 96 Nasal Cannula 3.00 08/25/16 11:29 97.6 64 18 138/85 96 08/25/16 11:26 97.6 64 20 138/85 97 08/25/16 10:58 98.9 65 18 131/59 96 08/25/16 10:45 98.9 65 18 124/71 96 I/O 08/25/16 08/25/16 08/25/16 08/26/16 08/26/16 08/26/16 07:00 15:00 23:00 07:00 15:00 23:00 Intake Total 310 ml 1491 ml 358 ml Output Total 500 ml 450 ml 300 ml Balance -190 ml 1041 ml 58 ml Intake Oral 240 ml 360 ml 240 ml IV Total 70 ml 1131 ml 118 ml Output Urine Total 500 ml 450 ml 300 ml # Voids 1 # Bowel Movements 0 0 0 Physical Exam GENERAL: Elderly male in CVICU, a bedside, no distress. SKIN: Warm and dry. HEAD: Normocephalic. EYES: No scleral icterus. No injection or drainage. NECK: Supple, trachea midline.. CARDIOVASCULAR: Regular rate and rhythm. Right groin no bruising or tenderness. Dressing C/D/I RESPIRATORY: Breath sounds equal bilaterally. Nasal cannula GASTROINTESTINAL: Abdomen soft, non-tender, nondistended. MUSCULOSKELETAL: No cyanosis, or edema. BACK: Nontender without obvious deformity. No CVA tenderness. Laboratory Laboratory Tests Test 08/25/16 08/25/16 08/26/16 08/26/16 16:51 18:29 02:15 02:30 Blood Type O POSITIVE Crossmatch Leukocyte-Reduced Red Blood Cells Blood Bank Comment Prothrombin Time 16.8 SEC Prothromb Time International 1.5 RATIO Ratio Activated Partial 33.9 SEC Thromboplast Time Sodium Level 136 MEQ/L Potassium Level 4.7 MEQ/L Chloride Level 102 MEQ/L Carbon Dioxide Level 24.5 MEQ/L Anion Gap 10 MEQ/L Blood Urea Nitrogen 25 MG/DL Creatinine 1.39 MG/DL Estimat Glomerular Filtration 50 ML/MIN Rate Random Glucose 117 MG/DL Calcium Level 8.2 MG/DL Urine Color YELLOW Urine Turbidity CLEAR Urine pH 7.0 Urine Specific [place] 1.045 Urine Protein 30 mg/dL Urine Glucose (UA) NEG mg/dL Urine Ketones NEG mg/dL Urine Occult Blood NEG Urine Nitrite NEG Urine Bilirubin NEG Urine Urobilinogen LESS THAN 2.0 MG/DL Urine Leukocyte Esterase NEG Urine RBC 1 /hpf Urine WBC LESS THAN 1 /hpf Urine Mucus FEW /lpf Microscopic Urinalysis Comment CULT NOT INDICATED Nasal Screen MRSA (PCR) MRSA NOT DETECTED Test 08/26/16 03:27 Prothrombin Time 14.6 SEC Prothromb Time International 1.3 RATIO Ratio Activated Partial 39.0 SEC Thromboplast Time Imaging Last 72 hours Impressions Chest X-Ray 08/26/16 0000 Signed Impressions: Service Date/Time: August 09:26 - CONCLUSION: 1. Improved right lower lung zone aeration with persistent volume loss and left lower lobe airspace disease likely reflecting atelectasis. 2. Cardiomegaly. Richardson Haney MD Lower Extremity Ultrasound 08/25/16 0000 Signed Impressions: Service Date/Time: Thursday, August 25, 2016 18:34 - CONCLUSION: 1. Venous mapping as above. Interrogated vessels are patent. Ajay Prabhakar MD Carotid Artery Ultrasound 08/25/16 0000 Signed Impressions: Service Date/Time: Thursday, August 25, 2016 18:11 - CONCLUSION: 1. No evidence for hemodynamically significant stenosis. Moderate atherosclerotic plaquing of the left common carotid artery. Ajay Prabhakar MD Chest X-Ray 08/24/16 1244 Signed Impressions: Service Date/Time: Wednesday, August 24, 2016 13:03 - CONCLUSION: 1. Bibasilar atelectasis. 2. Cardiomegaly. Jacob Trujillo MD Aorta CTA 08/24/16 0000 Signed Impressions: Service Date/Time: Wednesday, August 24, 2016 15:47 - CONCLUSION: 1. Fusiform thoracoabdominal aortic aneurysm containing mild to moderate neural fundus with measurements as above. Largest caliber of the thoracic aorta distally near the aortic hiatus measures 5.4 cm. Largest caliber of the abdominal aorta in the supraceliac portion measures 4.2 cm. Largest caliber of the infrarenal abdominal aorta measures 4.1 cm with moderate mural thrombus. 2. No evidence for aortic dissection or aneurysm rupture/leak. 3. Moderate left hydroureteronephrosis extending to the UVJ without a radiopaque renal calculi or discernible mass on CT. Patient does have a history of bladder CA. Therefore, this likely reflects UVJ involvement by new or previously treated tumor. Clinical correlation is recommended. 4. Slightly prominent main pulmonary artery may reflect some degree of pulmonary artery hypertension. 5. Two adjacent 2-3 mm nodules in the right upper lower lobe. Followup examination may be performed in 12 months per 2017 Fleischner criteria as indicated. 6. Moderate to severe coronary artery calcifications. Richardson Haney MD (Eiln Kwok) Assessment and Plan Assessment and Plan ASSESSMENT NSTEMI s/p cardiac cath 08/25/2016 revealed severe CAD. Pending CABG tomorrow. Patient continues to have hemoptysis. Decreased amount of blood compared to yesterday morning. CXR left lower lobe consolidation vs atalectesis, slight increase in WBC and increase neutrophils. Thoracic and abdominal aneurysms (see CTA report) Atrial fibrillation s/p ablation. Patient on coumadin prior to admission. Currently NSR CVA Carotid stenosis s/p right CEA 2013. Carotid US 10/2015 right < 30%, left 30% stenosis Hx of left atrial appendage thrombus Hx pulmonary embolism Hypertension Hyperlipidemia- the patient has been intolerant of statin therapy due to muscle aches in the past PLAN: Pulmonary consulted Heparin on hold for now Continue nitro gtt titrated to no chest pain CABG is planned for tomorrow pending patients clinical status We will continue to follow closely. Patient seen and evaluated by Dr. Moran. (Elin Kwok) Assessment and Plan The exam, history, and the medical decision-making described in the above note were completed with the assistance of the mid-level provider. I reviewed and agree with the findings presented. I attest that I had a [id number] encounter with the patient on the same day, and personally performed and documented my assessment and findings in the medical record. (Suellen Moran MD) Elin Kwok Aug 26, 2016 10:48 Suellen Moran MD Aug 27, 2016 14:48
[2016-08-26 11:54] LABS: AUTOMATED NEUTROPHIL # 7.3 TH/MM3 (1.8-7.7); BASOPHIL % 0.3 % (0.0-2.0); EOSINOPHIL # 0.2 TH/MM3 (0-0.4); HEMATOCRIT 38.5 % (39.0-51.0); HEMO FLAGS DIFF FINAL; LYMPH % 15.3 % (9.0-44.0); LYMPHOCYTE # 1.5 TH/MM3 (1.0-4.8); MEAN CELL VOLUME 96.6 FL (80.0-100.0); MEAN CORPUSCULAR HGB CONC 33.1 % (32.0-36.0); MONO % 8.9 % (0.0-8.0); NEUT % 73.5 % (16.0-70.0); PLATELET COUNT 134 TH/MM3 (150-450); RED BLOOD COUNT 3.98 MIL/MM3 (4.50-5.90); RED CELL DISTRIBUTION WIDTH 14.3 % (11.6-17.2); WHITE BLOOD COUNT 9.9 TH/MM3 (4.0-11.0)
[2016-08-26 12:19] LABS: BICARBONATE 26.7 MEQ/L (21.0-32.0); MAGNESIUM 1.9 MG/DL (1.5-2.5); POTASSIUM 4.8 MEQ/L (3.5-5.1)
[2016-08-26] MEDS: MORPHINE SULFATE 4 MG/ML INJ IV PRN ×4 (12:51→17:07)
[2016-08-26] MEDS ORDERED: SODIUM CHLORIDE 0.9% INJ 100 ML IV ONE (12:58)
[2016-08-26] MEDS ORDERED: LACTATED RINGER'S 1000 ML INJ 2,000 ML IV ONE (12:58)
--- NOTE | 2016-08-26 12:58 | MB ---
cc: RALPH HENSLEY DATE OF CONSULTATION 08/26/2016 REASON FOR CONSULTATION Hemoptysis and respiratory insufficiency HISTORY OF PRESENT ILLNESS This is a 75-year-old white male who has a prior history of a thoracoabdominal aortic aneurysm and a history for atrial fibrillation status post ablation and past history of colon cancer and bladder cancer. He was admitted with anterior chest pain which was worsening on laying down and pain radiating into the shoulder and back. The patient was seen in the emergency room and was then seen by Dr. Moran his processing associate and was taken for cardiac catheterization and found to have critical coronary artery disease. The patient has been scheduled for coronary artery bypass grafting. She did have a CTA of the chest and was found to have a descending thoracic aortic aneurysm with aneurysmal dilatation measuring 4.4 cm and 5.4 cm distally near the hiatus. There is no evidence of dissection. There was also two adjacent 2-3 mm nodules in the right lower lobe and moderate to severe coronary artery calcification. The patient has been coughing up bloody sputum since his cardiac catheterization and the cough now has subsided and his hemoptysis is also subsiding. He denies any chest pains at this time and has had no fevers or chills. There are no active infiltrates in the lung field. PAST MEDICAL HISTORY Includes: 1. Hypertension 2. Hyperlipidemia 3. History of bladder cancer 4. History of colon cancer for which he had surgery. 5. He has atrial fibrillation with ablation in 2009, previous myocardial infarct and stenting. 6. There is a history of CVA and carotid artery stenosis. 7. History of abdominal aortic aneurysm. 8. He had a pacemaker placed in the past. 9. Carotid endarterectomy done three years ago. 10. He also had a pacemaker removed in 2010 which for an infection. HABITS The patient smoked half to one-pack per day for about 20 years and quit many years ago. Occasional alcohol use. FAMILY HISTORY Significant for heart disease in his mother. MEDICATION LIST Included: 1. Coumadin 2. Xanax 3. Metoprolol 4. Enalapril ALLERGIES To STATINS REVIEW OF SYSTEMS The patient is overweight. He has no headaches. He has cough, wheezing and hemoptysis. No abdominal pains. No nausea, vomiting or aspiration. There is mild leg swelling and joint pains to his extremities and back pain. No urinary symptoms. No depression or anxiety. PHYSICAL EXAMINATION There is moderately built elderly man in bed in no acute distress. He is off oxygen. VITAL SIGNS: Blood pressure 130/70, pulse is 80, respirations 16, temperature 97.5. HEENT: Head normocephalic. Pupils are reactive. Throat is clear. Nasal mucosa injected. NECK: Supple with no venous distension. No definite bruits or thyroid enlargement. CHEST: Equal movements with decreased excursions. Breath sounds diminished at the bases with occasional basilar crackles. HEART: Heart sounds are irregular S1-S2. No murmur. No S3. ABDOMEN: Soft, protuberant. No masses or organomegaly. EXTREMITIES: No lesions and minimal edema. Reflexes are 1+ with no gross motor deficits. SKIN: No lesions observed. IMPRESSION 1. Hemoptysis, resolving. 2. Right lower lung nodules 3. Critical coronary artery disease 4. Severe aneurysmal dilatation of the thoracoabdominal aorta. 5. Coagulopathy from use of heparin and Coumadin. 6. Hypertension 7. Hyperlipidemia 8. Probable underlying COPD. PLAN The patient will have a blood gas study and a bedside pulmonary function study done. We will place him on O2 at 2 liters p.r.n. and nebulized albuterol solution p.r.n. He is having less hemoptysis which is subsiding and was probably more significant when he was on anticoagulation. Since he is off the anticoagulation, now he is having less hemoptysis and we could send his sputum for culture and Gram stain and repeat his coagulation profile. The lung nodules could be worked up at a later date. The patient will be advised to use an incentive spirometer q.i.d. The patient also possibly has pulmonary hypertension which need to be evaluated at a later date. He is clinically stable for coronary bypass grafting and has a moderate risk of postoperative respiratory failure and/or atelectasis. The patient is cleared for surgery as planned. I will follow the case with you Dr. Zamora and Dr. Cameron. Thank you for this consultation. MD SASHA Martinez/ALIDA /12:14 PM /12:49 PM
[2016-08-26] MEDS ORDERED: SODIUM CHLOR 0.9% 250 ML INJ 750 ML IV ONE (12:59)
[2016-08-26] MEDS ORDERED: SODIUM CHLORID 0.9% 500 ML INJ 500 ML IV ONE (12:59)
[2016-08-26] MEDS ORDERED: NORMOSOL R INJ 2,000 ML IV ONE (12:59)
[2016-08-26] MEDS ORDERED: RESP: ALBUTEROL 1.25 MG/3 ML NEB (PRN) NEB (13:00)
[2016-08-26] MEDS: RESP: ALBUTEROL 2.5 MG/IPRATROPIUM 0.5 MG NEB (SCH) NEB ×2 (14:00→18:59)
[2016-08-26 14:01] LABS: HDL CHOLESTEROL 39.4 MG/DL (40.0-60.0)
--- NOTE | 2016-08-26 15:26 | PD.CAR.PN ---
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 He underwent cardiac cath which shoed severe 3 vessel disease including Left main disease 60-80%. EF50% mild MR, CTA also showed 2 small 2-3 mm lung nodule right upper lobe, pulm HTN, moderate left hydronephrosis CT Abdomen and pelvis pending PMH: HTN, HLP, colon and bladder CA, Afib/ post ablation, CAD/MT, carotid stenossi ( carotid endarectomy , hx of thoracic and abdominal aneurysms 08/26 pt developed hemopytis this am , while on heparin , INR 1.3, heparin stopped sputum pending, appreciated pulm input will still plan for surgery in am, first case / Dr Zamora discussed with anesthesia Objective: GENERAL: SKIN: Warm and dry. HEAD: Normocephalic. EYES: No scleral icterus. No injection or drainage. NECK: Supple, trachea midline. No JVD or lymphadenopathy. CARDIOVASCULAR: Regular rate and rhythm without murmurs, gallops, or rubs. RESPIRATORY: Breath sounds equal bilaterally. No accessory muscle use. GASTROINTESTINAL: Abdomen soft, non-tender, nondistended. MUSCULOSKELETAL: No cyanosis, or edema. BACK: Nontender without obvious deformity. No CVA tenderness. Vital Signs Date Time Temp Pulse Resp B/P Pulse Ox O2 Delivery O2 Flow Rate FiO2 08/26/16 13:32 20 08/26/16 11:00 84 08/26/16 11:00 93 Nasal Cannula 5.00 08/26/16 11:00 98.8 79 20 102/54 93 08/26/16 09:02 95 Nasal Cannula 4.00 08/26/16 08:10 22 08/26/16 07:00 99.3 88 22 137/79 92 08/26/16 07:00 92 Nasal Cannula 5.00 08/26/16 07:00 90 08/26/16 04:00 99.7 82 18 111/59 94 08/26/16 04:00 93 5.00 08/26/16 03:20 94 08/26/16 00:00 98.7 82 18 125/74 97 08/26/16 00:00 92 5.00 08/25/16 23:20 80 08/25/16 22:30 94 Nasal Cannula 4.00 08/25/16 21:00 99.1 81 18 104/62 93 08/25/16 19:15 92 5.00 08/25/16 19:00 92 08/25/16 16:00 79 08/25/16 16:00 98.6 64 20 140/82 97 Labs: Laboratory Tests Test 08/26/16 08/26/16 03:27 11:26 Prothrombin Time 14.6 SEC (9.8-11.6) Prothromb Time International 1.3 RATIO Ratio Activated Partial 39.0 SEC 33.0 SEC Thromboplast Time (24.3-30.1) (24.3-30.1) White Blood Count 9.9 TH/MM3 (4.0-11.0) Red Blood Count 3.98 MIL/MM3 (4.50-5.90) Hemoglobin 12.7 GM/DL (13.0-17.0) Hematocrit 38.5 % (39.0-51.0) Mean Corpuscular Volume 96.6 FL (80.0-100.0) Mean Corpuscular Hemoglobin 32.0 PG (27.0-34.0) Mean Corpuscular Hemoglobin 33.1 % Concent (32.0-36.0) Red Cell Distribution Width 14.3 % (11.6-17.2) Platelet Count 134 TH/MM3 (150-450) Mean Platelet Volume 8.1 FL (7.0-11.0) Neutrophils (%) (Auto) 73.5 % (16.0-70.0) Lymphocytes (%) (Auto) 15.3 % (9.0-44.0) Monocytes (%) (Auto) 8.9 % (0.0-8.0) Eosinophils (%) (Auto) 2.0 % (0.0-4.0) Basophils (%) (Auto) 0.3 % (0.0-2.0) Neutrophils # (Auto) 7.3 TH/MM3 (1.8-7.7) Lymphocytes # (Auto) 1.5 TH/MM3 (1.0-4.8) Monocytes # (Auto) 0.9 TH/MM3 (0-0.9) Eosinophils # (Auto) 0.2 TH/MM3 (0-0.4) Basophils # (Auto) 0.0 TH/MM3 (0-0.2) CBC Comment DIFF FINAL Differential Comment Sodium Level 133 MEQ/L (136-145) Potassium Level 4.8 MEQ/L (3.5-5.1) Chloride Level 99 MEQ/L (98-107) Carbon Dioxide Level 26.7 MEQ/L (21.0-32.0) Anion Gap 7 MEQ/L (5-15) Blood Urea Nitrogen 27 MG/DL (7-18) Creatinine 1.69 MG/DL (0.60-1.30) Estimat Glomerular Filtration 40 ML/MIN (>89) Rate Random Glucose 129 MG/DL (74-106) Calcium Level 8.6 MG/DL (8.5-10.1) Phosphorus Level 2.7 MG/DL (2.5-4.9) Magnesium Level 1.9 MG/DL (1.5-2.5) Triglycerides Level 173 MG/DL (42-150) Cholesterol Level 173 MG/DL (120-200) LDL Cholesterol 99 MG/DL (0-99) HDL Cholesterol 39.4 MG/DL (40.0-60.0) Cholesterol/HDL Ratio 4.39 RATIO Result Diagram: 08/26/16 1126 08/26/16 1126 Telemetry: NSR (1) NSTEMI (non-ST elevated myocardial infarction) Plan: for surgery in am (2) ANNY (acute kidney injury) (3) CKD (chronic kidney disease), stage III (4) Hydroureteronephrosis (5) Hemoptysis Plan: improved , Heparin gtt stopped appreciate Pulm input (6) Thoracic aortic aneurysm without rupture Casandra Barton Aug 26, 2016 15:26
[2016-08-26] MEDS ORDERED: HEPARIN SODIUM - IV 10,000 UNITS/10 ML VIAL ONE ×2 (16:25→19:19)
[2016-08-26 16:49] LABS: APTT (PATIENT) 53.9 SEC (24.3-30.1)
[2016-08-26] MEDS ORDERED: METOPROLOL TARTRATE 5 MG/5 ML VIAL IV PUSH ONE ×3 (17:00→17:30)
[2016-08-26] MEDS ORDERED: METOPROLOL TARTRATE 5 MG/5 ML VIAL ONE ×2 (17:13→17:48)
[2016-08-26 17:30] LABS: BLOOD GAS BASE EXCESS -1.5 mmol/L (-2-2); BLOOD GAS CARBOXYHEMOGLOBIN 2.1 % (0-4); BLOOD GAS HCO3 23 mmol/L (22-26); BLOOD GAS METHEMOGLOBIN 1.5 % (0-2); BLOOD GAS O2 HGB SATURATION 95 % (90-100); BLOOD GAS OXYGEN CONTENT 17.3 Vol % (12.0-20.0); BLOOD GAS PCO2 42 mmHg (38-42); BLOOD GAS PO2 114 mmHg (61-120); BLOOD GAS TOTAL HGB 12.9 G/DL (12.0-16.0); CRITICAL VALUE NO; OXYGEN DEVICE SIMPLE MASK; TEMP CORR TO 98.6
[2016-08-26 17:31] LABS: DRAW SITE LT RADIAL; LITER FLOW 10 L/M; NUMBER OF ARTERIAL PUNCTURES 1; STAT YES; ULNAR PULSE PRESENT
--- NOTE | 2016-08-26 17:41 | RADRPT ---
EXAM DATE/TIME: 08/26/2016 17:11 [place] COMPARISON: CHEST SINGLE AP, August 26, 2016, 9:26. INDICATIONS : Sudden onset of shortness of breath and chest pain. MEDICAL HISTORY : Hypertension. Carcinoma, colon. Myocardial infarction. Afib, Coronary artery disease. SURGICAL HISTORY : Abdominal aortic aneurysm repair. Ablation. Cardiac cath. ENCOUNTER: Initial ACUITY: 1 day PAIN SCORE: 10/10 LOCATION: Bilateral chest FINDINGS: Redemonstration of left lower lobe airspace disease with mild diffuse interstitial prominence. Cardia c silhouette is enlarged. No interval effusion or pneumothorax. Remainder of exam is unchanged. CONCLUSION: 1. No significant interval change. 2. Redemonstration of left lower lung zone airspace disease. 3. Cardiomegaly with mild positive fluid balance. Richardson Haney MD on August 26, 2016 at 17:38 Board Certified Radiologist. This report was verified electronically.
[2016-08-26] MEDS: METOPROLOL TARTRATE 5 MG/5 ML VIAL IV PUSH SCH (18:00)
[2016-08-26] MEDS ORDERED: HEPARIN SODIUM - IV 10,000 UNITS/10 ML VIAL IV ONE (18:15)
[2016-08-26] MEDS ORDERED: HEPARIN SODIUM - IV 10,000 UNITS/10 ML VIAL IV PRN ×2 (18:15)
[2016-08-26] MEDS ORDERED: HEPARIN 25,000 UNITS-D5W 250 ML - PREMIX IV SCH (18:15)
[2016-08-26 18:18] LABS: HEMOGLOBIN A1a 1.2 %; HEMOGLOBIN A1b 1.9 %; HEMOGLOBIN Ao 83.9 %; HEMOGLOBIN LA1C 2.2 %; HEMOGLOBIN P3 5.8 %
--- NOTE | 2016-08-26 18:34 | PD.CONS ---
[facility] Service Critical Care Medicine Consult Requested By Dr. Meza Reason for Consult Ongoing chest pain/angina NSTEMI Primary Care Physician No Primary Care Physician History of Present Illness Patient is a 75-year-old male with past medical history of hypertension, hyperlipidemia, history of colon cancer, , bladder cancer, Atrial fibrillation with status post ablation in 2009, CAD, VA in 1999 and in 2009 status post stent, history of CVA, carotid stenosis, history of thoracic and abdominal aneurysms, history of [facility] [facility] pacemaker placed in who presented to the emergency department with retrosternal 8 out of 10 chest pain radiating to left shoulder. He has history of prior ascending aortic aneurysm which is followed by the [facility], also open abdominal aortic aneurysm repair 8 years ago at [facility] by Dr. Santos. CTA of the chest which showed descending thoracic aorta was tortuous and aneurysmal measuring 4.4 cm proximately and 5.4 cm distally near the hiatus. Patient ruled in for non-ST elevation VA with troponin elevation. Cardiology was consulted Dr. Moran, placed on medical management with IV heparin, beta blockers and aspirin. A cardiac catheterization was performed which revealed multivessel coronary artery disease and Dr. Zamora was consulted for CABG Patient was scheduled for CABG for tomorrow. Around 5 PM I was called to the room as the patient was in severe distress due to worsening chest pain. On my evaluation patient complains about 10/10 chest pain and patient was anxious and tachycardic. He was getting nitroglycerin infusion at 150 mcg/m. with myself present in the room I asked the nurse to give metoprolol IV push 2.5 mg 3 over the next 10 minutes. Patient's heart rate eventually came down to 80-90 with improvement in chest pain now down to 5 out of 10. Patient is currently on nitroglycerin and heparin infusions. I discussed with harmonica maker Dr. Moran and CT surgery Dr. Meza. Certainly the best option is to proceed with emergency CABG and Dr. Meza will take to OR tonight Review of Systems ROS Limitations: Other (as per HPI) Past Family Social History Allergies: Coded Allergies: HMG-CoA Reductase Inhibitors (Verified Allergy, Severe, 08/25/16) PATIENT REPORTS HE CAN NOT TAKE ANY STATINS PERIOD. HE LOSES USE OF HIS LEGS Lipitor (Verified Allergy, Severe, back pain and chest pain, 08/24/16) Simvastatin (Unverified Allergy, Severe, body aches, 08/24/16) Past Medical History Hypertension Hyperlipidemia Colon cancer status post resection History of left atrium thrombosis History of A. 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 Reported Medications Aspirin 325 Mg Tab 325 Mg PO DAILY Metoprolol Tartrate 25 Mg Tab 25 Mg PO BID Enalapril (Enalapril Maleate) 10 Mg Tab 10 Mg PO DAILY Xanax (Alprazolam) 0.25 Mg Tab 0.25 Mg PO Q6H PRN Coumadin (Warfarin) 5 Mg Tab 5 Mg PO M,W,TH,SA Coumadin (Warfarin) 7.5 Mg Tab 7.5 Mg PO FREITAS,,FR Active Ordered Medications Reviewed Family History Family history of coronary artery disease Social History No history of alcohol or smoking Physical Exam Vital Signs Vital Signs Date Time Temp Pulse Resp B/P Pulse Ox O2 Delivery O2 Flow Rate FiO2 08/26/16 17:56 18 08/26/16 15:00 94 Nasal Cannula 4.00 08/26/16 15:00 98.8 95 20 101/55 94 08/26/16 15:00 102 08/26/16 11:00 84 08/26/16 11:00 93 Nasal Cannula 5.00 08/26/16 11:00 98.8 79 20 102/54 93 08/26/16 09:02 95 Nasal Cannula 4.00 08/26/16 08:10 22 08/26/16 07:00 99.3 88 22 137/79 92 08/26/16 07:00 92 Nasal Cannula 5.00 08/26/16 07:00 90 08/26/16 04:00 99.7 82 18 111/59 94 08/26/16 04:00 93 5.00 08/26/16 03:20 94 08/26/16 00:00 98.7 82 18 125/74 97 08/26/16 00:00 92 5.00 08/25/16 23:20 80 08/25/16 22:30 94 Nasal Cannula 4.00 08/25/16 21:00 99.1 81 18 104/62 93 08/25/16 19:15 92 5.00 08/25/16 19:00 92 Physical Exam GENERAL: This is a well-nourished, well-developed patient, in severe distress from substernal chest pain, appears anxious SKIN: No rashes, warm and dry HEAD: Atraumatic. Normocephalic. EYES: Pupils equal round and reactive. Extraocular motions intact. No scleral icterus. ENT: Nose without bleeding, or drainage, Airway patent. NECK: Trachea midline. Supple CARDIOVASCULAR: Tachycardic in 120's. No murmur RESPIRATORY: Air entry bilaterally. No wheezes, rales, or rhonchi. GASTROINTESTINAL: Abdomen soft, non-tender, nondistended. Positive bowel sounds MUSCULOSKELETAL: Extremities without clubbing, cyanosis, or edema. NEUROLOGICAL: Awake and alert. Moves all extremity. No focal neurological deficit Laboratory Laboratory Tests Test 08/26/16 08/26/16 08/26/16 08/26/16 02:15 02:30 03:27 11:26 Urine Color YELLOW Urine Turbidity CLEAR Urine pH 7.0 Urine Specific [place] 1.045 Urine Protein 30 Urine Glucose (UA) NEG Urine Ketones NEG Urine Occult Blood NEG Urine Nitrite NEG Urine Bilirubin NEG Urine Urobilinogen LESS THAN 2.0 Urine Leukocyte Esterase NEG Urine RBC 1 Urine WBC LESS THAN 1 Urine Mucus FEW Microscopic Urinalysis Comment CULT NOT INDICATED Nasal Screen MRSA (PCR) MRSA NOT DETECTED Prothrombin Time 14.6 Prothromb Time International 1.3 Ratio Activated Partial 39.0 33.0 Thromboplast Time White Blood Count 9.9 Red Blood Count 3.98 Hemoglobin 12.7 Hematocrit 38.5 Mean Corpuscular Volume 96.6 Mean Corpuscular Hemoglobin 32.0 Mean Corpuscular Hemoglobin 33.1 Concent Red Cell Distribution Width 14.3 Platelet Count 134 Mean Platelet Volume 8.1 Neutrophils (%) (Auto) 73.5 Lymphocytes (%) (Auto) 15.3 Monocytes (%) (Auto) 8.9 Eosinophils (%) (Auto) 2.0 Basophils (%) (Auto) 0.3 Neutrophils # (Auto) 7.3 Lymphocytes # (Auto) 1.5 Monocytes # (Auto) 0.9 Eosinophils # (Auto) 0.2 Basophils # (Auto) 0.0 CBC Comment DIFF FINAL Differential Comment Sodium Level 133 Potassium Level 4.8 Chloride Level 99 Carbon Dioxide Level 26.7 Anion Gap 7 Blood Urea Nitrogen 27 Creatinine 1.69 Estimat Glomerular Filtration 40 Rate Random Glucose 129 Calcium Level 8.6 Phosphorus Level 2.7 Magnesium Level 1.9 Triglycerides Level 173 Cholesterol Level 173 LDL Cholesterol 99 HDL Cholesterol 39.4 Cholesterol/HDL Ratio 4.39 Test 08/26/16 08/26/16 16:20 17:25 Activated Partial 53.9 Thromboplast Time Blood Gas Puncture Site LT RADIAL Blood Gas Patient Temperature 98.6 Blood Gas HCO3 23 Blood Gas Base Excess -1.5 Blood Gas Oxygen Saturation 95 Arterial Blood pH 7.36 Arterial Blood Partial 42 Pressure CO2 Arterial Blood Partial 114 Pressure O2 Arterial Blood Oxygen Content 17.3 Arterial Blood 2.1 Carboxyhemoglobin Arterial Blood Methemoglobin 1.5 Blood Gas Hemoglobin 12.9 Oxygen Delivery Device SIMPLE MASK Blood Gas Liter Flow 10 Date/Time Procedure Status Source Growth 08/26/16 08:52 Gram Stain - Final Resulted Sputum Expectorated Sputum 08/26/16 08:52 Sputum Culture Resulted Sputum Expectorated Sputum Pending Result Diagram: 08/26/16 1126 08/26/16 1126 Imaging Reviewed Assessment and Plan Assessment and Plan ASSESSMENT ACS/NSTEMI/Unstable angina Severe three-vessel disease Aneurysmal dilation descending thoracic aorta History of aortic abdominal aneurysm repair. History of atrial fibrillation post ablation Coronary artery disease and prior to my Hypertension. Hyperlipidemia, he is intolerant to statins. History of CVA History of colon and bladder cancer PLAN: NEURO: - As needed Dilaudid Morphine for pain - Otherwise minimize sedation RESP: - Nasal cannula oxygen - DuoNeb every 6 hours when necessary CV: - Metoprolol IV push 2.5 mg 3 given with improvement in chest pain and heart rate - Continue metoprolol 5 mg every 6 hours - Discussed with Dr. Meza and Dr. Moran, going to or today for emergent CABG - Continue IV heparin, IV nitroglycerin, aspirin - Dr. Christensen consulted for aortic aneurysm GI: - Nothing by mouth for OR : - Monitor renal function closely. ID: - Perioperative antibiotics per cardiothoracic surgery HEME: - Coumadin on hold continue IV heparin ENDO: - Electrolyte replacement per protocol PROPH: - Bilateral lower extremity SCDs. IV heparin, Protonix LINES: - Utilize peripheral IVs, central line if needed CC time 45 min Code Status Full Discussed Condition With Dr. Meza and Giovani Marinelli MD Aug 26, 2016 18:34 - Electrolyte replacement per protocol PROPH: - Bilateral lower extremity SCDs. IV heparin, Protonix LINES: - Utilize peripheral IVs, central line if needed CC time 35 min Code Status Full Discussed Condition With Dr. Meza and Giovani Marinelli MD Aug 26, 2016 18:34
[2016-08-26] MEDS ORDERED: CARDIOPLEGIC IRR 1,000 ML ONE (19:18)
[2016-08-26] MEDS ORDERED: POTASSIUM CHLORIDE 40 MEQ/20 ML VIAL ONE (19:18)
[2016-08-26] MEDS ORDERED: MANNITOL INJ 50 ML ONE (19:19)
[2016-08-26] MEDS ORDERED: HEPARIN SODIUM - SQ 10,000 UNITS/ML VIAL ONE ×2 (19:19→19:27)
[2016-08-26] MEDS ORDERED: ALBUMIN HUMAN 25% 12.5 GM/50 ML BAGP IV ONE (19:20)
[2016-08-26] MEDS ORDERED: VANCOMYCIN HCL 1000 MG VIAL ONE (19:26)
[2016-08-26] MEDS ORDERED: ceFAZolin 2 GM PREMIX 50 ML ONE (19:27)
--- NOTE | 2016-08-26 19:37 | PD.CAR.PN ---
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 He underwent cardiac cath which shoed severe 3 vessel disease including Left main disease 60-80%. EF50% mild MR, CTA also showed 2 small 2-3 mm lung nodule right upper lobe, pulm HTN, moderate left hydronephrosis CT Abdomen and pelvis pending PMH: HTN, HLP, colon and bladder CA, Afib/ post ablation, CAD/NC, carotid stenossi ( carotid endarectomy , hx of thoracic and abdominal aneurysms 08/26 pt developed hemopytis this am , while on heparin , INR 1.3, heparin stopped sputum pending, appreciated pulm input will still plan for surgery in am, first case / Dr Zamora discussed with anesthesia 08/26/16 19:31 Patient with refractory angina despite IV NTG, BB, heparin. Increased dyspnea and worsening hypoxia as well. He is also oliguric with increasing creatinine and had hemoptysis earlier. He appears to have a left ureteral obstruction as well. His risk of surgery is high, but the risk of not intervening is higher. I discussed this with him and his and he agrees to proceed as an emergency tonight. Objective: Vital Signs Date Time Temp Pulse Resp B/P Pulse Ox O2 Delivery O2 Flow Rate FiO2 08/26/16 17:56 18 08/26/16 15:00 94 Nasal Cannula 4.00 08/26/16 15:00 98.8 95 20 101/55 94 08/26/16 15:00 102 08/26/16 11:00 84 08/26/16 11:00 93 Nasal Cannula 5.00 08/26/16 11:00 98.8 79 20 102/54 93 08/26/16 09:02 95 Nasal Cannula 4.00 08/26/16 08:10 22 08/26/16 07:00 99.3 88 22 137/79 92 08/26/16 07:00 92 Nasal Cannula 5.00 08/26/16 07:00 90 08/26/16 04:00 99.7 82 18 111/59 94 08/26/16 04:00 93 5.00 08/26/16 03:20 94 08/26/16 00:00 98.7 82 18 125/74 97 08/26/16 00:00 92 5.00 08/25/16 23:20 80 08/25/16 22:30 94 Nasal Cannula 4.00 08/25/16 21:00 99.1 81 18 104/62 93 Labs: Laboratory Tests Test 08/26/16 08/26/16 08/26/16 11:26 16:20 17:25 White Blood Count 9.9 TH/MM3 (4.0-11.0) Red Blood Count 3.98 MIL/MM3 (4.50-5.90) Hemoglobin 12.7 GM/DL (13.0-17.0) Hematocrit 38.5 % (39.0-51.0) Mean Corpuscular Volume 96.6 FL (80.0-100.0) Mean Corpuscular Hemoglobin 32.0 PG (27.0-34.0) Mean Corpuscular Hemoglobin 33.1 % Concent (32.0-36.0) Red Cell Distribution Width 14.3 % (11.6-17.2) Platelet Count 134 TH/MM3 (150-450) Mean Platelet Volume 8.1 FL (7.0-11.0) Neutrophils (%) (Auto) 73.5 % (16.0-70.0) Lymphocytes (%) (Auto) 15.3 % (9.0-44.0) Monocytes (%) (Auto) 8.9 % (0.0-8.0) Eosinophils (%) (Auto) 2.0 % (0.0-4.0) Basophils (%) (Auto) 0.3 % (0.0-2.0) Neutrophils # (Auto) 7.3 TH/MM3 (1.8-7.7) Lymphocytes # (Auto) 1.5 TH/MM3 (1.0-4.8) Monocytes # (Auto) 0.9 TH/MM3 (0-0.9) Eosinophils # (Auto) 0.2 TH/MM3 (0-0.4) Basophils # (Auto) 0.0 TH/MM3 (0-0.2) CBC Comment DIFF FINAL Differential Comment Activated Partial 33.0 SEC 53.9 SEC Thromboplast Time (24.3-30.1) (24.3-30.1) Sodium Level 133 MEQ/L (136-145) Potassium Level 4.8 MEQ/L (3.5-5.1) Chloride Level 99 MEQ/L (98-107) Carbon Dioxide Level 26.7 MEQ/L (21.0-32.0) Anion Gap 7 MEQ/L (5-15) Blood Urea Nitrogen 27 MG/DL (7-18) Creatinine 1.69 MG/DL (0.60-1.30) Estimat Glomerular Filtration 40 ML/MIN (>89) Rate Random Glucose 129 MG/DL (74-106) Calcium Level 8.6 MG/DL (8.5-10.1) Phosphorus Level 2.7 MG/DL (2.5-4.9) Magnesium Level 1.9 MG/DL (1.5-2.5) Triglycerides Level 173 MG/DL (42-150) Cholesterol Level 173 MG/DL (120-200) LDL Cholesterol 99 MG/DL (0-99) HDL Cholesterol 39.4 MG/DL (40.0-60.0) Cholesterol/HDL Ratio 4.39 RATIO Blood Gas Puncture Site LT RADIAL Blood Gas Patient Temperature 98.6 Blood Gas HCO3 23 mmol/L (22-26) Blood Gas Base Excess -1.5 mmol/L (-2-2) Blood Gas Oxygen Saturation 95 % (90-100) Arterial Blood pH 7.36 (7.380-7.420) Arterial Blood Partial 42 mmHg (38-42) Pressure CO2 Arterial Blood Partial 114 mmHg Pressure O2 (61-120) Arterial Blood Oxygen Content 17.3 Vol % (12.0-20.0) Arterial Blood 2.1 % (0-4) Carboxyhemoglobin Arterial Blood Methemoglobin 1.5 % (0-2) Blood Gas Hemoglobin 12.9 G/DL (12.0-16.0) Oxygen Delivery Device SIMPLE MASK Blood Gas Liter Flow 10 L/M Result Diagram: 08/26/166 08/26/166 Plan: STS risk as follows: RISK SCORES About the STS Risk Calculator Procedure: CAB Only Risk of Mortality: 17.099% Morbidity or Mortality: 66.612% Long Length of Stay: 35.163% Short Length of Stay: 7.486% Permanent Stroke: 2.959% Prolonged Ventilation: 55.213% DSW Infection: 2.201% Renal Failure: 30.78% Reoperation: 18.645% Will proceed with CABG emergently (1) NSTEMI (non-ST elevated myocardial infarction) Plan: for surgery in am (2) ANNY (acute kidney injury) (3) CKD (chronic kidney disease), stage III (4) Hydroureteronephrosis (5) Hemoptysis Plan: improved , Heparin gtt stopped appreciate Pulm input (6) Thoracic aortic aneurysm without rupture Cece Zamora MD Aug 26, 2016 19:37
[2016-08-26] MEDS ORDERED: LACTATED RINGER'S 1000 ML INJ 500 ML IV PRN (23:59)
[2016-08-27] VITALS (17 sets, daily range): BP systolic 95–138; BP diastolic 49–84; PULSE 78–114; RESP 12–18; TEMP 97.1–98.5; O2SAT 94–100
[2016-08-27] MEDS ORDERED: ACETAMINOPHEN 650 MG SUPP RECTAL PRN
[2016-08-27] MEDS ORDERED: POTASSIUM CHLORIDE 20 MEQ CONTROLLED RELEASE TAB PO PRN ×2
[2016-08-27] MEDS ORDERED: RESP: ALBUTEROL 2.5 MG/IPRATROPIUM 0.5 MG NEB (PRN) NEB
[2016-08-27] MEDS ORDERED: ONDANSETRON HCL 4 MG/2 ML VIAL IV PUSH PRN
[2016-08-27] MEDS ORDERED: CALCIUM CHLORIDE INJ 1 GM in SODIUM CHLORIDE 0.9% INJ 100 ML IV PRN ×2
[2016-08-27] MEDS ORDERED: METOPROLOL TARTRATE 5 MG/5 ML VIAL IV PUSH PRN
[2016-08-27] MEDS ORDERED: CALCIUM CHLORIDE 10% 1 GRAM/10 ML VIAL IV PRN
[2016-08-27] MEDS ORDERED: CLEVIDIPINE INJ 50 ML IV SCH
[2016-08-27] MEDS ORDERED: hydrALAZINE HCL 20 MG/ML VIAL IV PRN
[2016-08-27] MEDS ORDERED: ACETAMINOPHEN 325 MG TAB PO PRN
[2016-08-27] MEDS ORDERED: ALBUMIN HUMAN 5% 12.5 GM/250 ML BOTTLE IV PRN
[2016-08-27] MEDS ORDERED: POTASSIUM CHLOR 20 MEQ PREMIX 100 ML IV PRN ×3
[2016-08-27] MEDS ORDERED: MAGNESIUM SULFATE INJ 2 GM in SODIUM CHLORIDE 0.9% INJ 100 ML IV PRN ×4
[2016-08-27] MEDS ORDERED: SODIUM CHLORIDE 0.9% FLUSH 10 ML FLUSH IV FLUSH PRN
[2016-08-27] MEDS ORDERED: Post-op Orders (for Pharmacy) MISC OTHER ONE
[2016-08-27] MEDS ORDERED: INSULIN REGULAR (IV INFUSION) 100 UNITS in SODIUM CHLORIDE 0.9% INJ 99 ML IV SCH ×2
[2016-08-27] MEDS ORDERED: SUGAMMADEX SODIUM 200 MG/2 ML VIAL IV PUSH ONE ×2 (00:01)
--- NOTE | 2016-08-27 00:17 | PD.OP ---
cc: Suellen Moran MD; Cece Zamora MD Operative Report Date of Surgery: Aug 27, 2016 Preoperative Diagnosis: (1) NSTEMI (non-ST elevated myocardial infarction) (2) Unstable angina (3) CAD (coronary artery disease) Postoperative Diagnosis: same Procedure: Emergency pump assisted beating heart CABG x 3 LINK to LAD - good SVG to PDA - good SVG to OM - fair NEYMAR EVH Anesthesia: General Surgeon: Cece Zamora Departmental Secretary(s): MICHELLE Boston Operation and Findings: The risks, benefits, complications, treatment options, and expected outcomes were discussed with the patient and family. He was emergently taken to the OR for refractory angina and pulmonary edema. The possibilities of reaction to medication, pulmonary aspiration, perforation of viscus, bleeding, recurrent infection, the need for additional procedures, failure to diagnose a condition, and creating a complication requiring transfusion or operation were discussed with the patient. The patient concurred with the proposed plan, giving informed consent. The site of surgery properly noted/marked. The patient was taken to Operating Room, identified as Jarad Hartley and the procedure verified as CABG, EVH , NEYMAR. A Time Out was held and the above information confirmed. Standard monitoring lines and Franco catheter were placed. General anesthesia was induced. The patient was prepped and draped in a sterile fashion. A median sternotomy was performed and electrocautery was used to obtain hemostasis. The left internal mammary artery was procured as a pedicle from the 7th rib to the 1st rib in the usual manner. Simultaneously left greater saphenous vein was procured from the left leg using a minimally invasive endoscopic technique. The vein was prepared for anastomosis and the leg wound was irrigated and closed in 2 layers. The pericardium was opened and dense adhesions were found between the pericardium and epicardium. A pericardial sling was created using interrupted 0 silk sutures. The patient was heparinized for cardiopulmonary bypass and the distal mammary pedicle was instrumented for anastomosis. 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 The heart was instrumented for cardiopulmonary bypass in the usual manner. The patient was placed on cardiopulmonary bypass. The porcelain aorta precluded crossclamp use and arresting the heart. Therefore, an empty beating heart approach was used. A Maquet stabilizer system was used for exposure. The 1st circumflex marginal artery was then opened with a Jackson blade and found to be a 1 millimeter fair target. Saphenous vein was approximated to the OM1 artery using a running 7 0 Prolene suture. The graft was measured for length and orientation and was suspended from the pericardium. The distal right coronary circulation was investigated and found to be densely calcified. The distal PDA was opened with a Jackson blade and found to be a 1.5 millimeter good target. Saphenous vein was approximated to the PDA artery using a running 7 0 Prolene suture. The graft was measured for length and orientation and suspended from the pericardium. The distal LAD was opened with a Jackson blade and found to be a 1.5 millimeter good target. The left internal mammary artery was approximated to the LAD using a running 7 0 Prolene suture. The pedicle was attached to the epicardium using interrupted 5 0 silk suture. The patient was systemically rewarmed. The proximal anastomoses to the OM1 and PDA grafts were accomplished using a running 5 0 Prolene suture after creating an aortotomy and using a heartstring device. All proximal and distal anastomoses were examined for hemostasis. The patient was weaned from cardiopulmonary bypass. Protamine was given. There was no adverse reaction. Decannulation was carried out without incident. Wound was checked for hemostasis which was obtained using electrocautery. A 36 Latvian mediastinal and 32 Latvian left pleural chest was were placed and secured to the skin with 0 silk suture. The sternum was closed with stainless steel wire. The fascia was closed with 1. PDS. The subcutaneous tissue was closed using a running 2-0 Vicryl suture. The skin was closed with 4- 0 Monocryl. Sterile dressings were placed. At the end of the operation, all sponge, instruments, and needle counts were correct. The patient was transferred to the CICU in stable condition. Findings: PORCELAIN AORTA, dense adhesions involving the pericardium CPB: 98 min Drains: mediastinal x 1 pleural x 1 Complications: none Disposition: to CVICU in stable condition Cece Zamora MD Aug 27, 2016 00:17
[2016-08-27] MEDS ORDERED: ceFAZolin INJ 1,000 MG VIAL ONE (00:25)
[2016-08-27] MEDS ORDERED: fentaNYL CITRATE 1000 MCG/20 ML VIAL ONE (01:07)
[2016-08-27] MEDS ORDERED: MIDAZOLAM HCL 5 MG/5 ML VIAL ONE (01:07)
[2016-08-27] MEDS ORDERED: RESP: RACEPINEPHRINE 2.25% 0.5 ML NEB NEB PRN ×2 (01:45)
--- NOTE | 2016-08-27 01:55 | RADRPT ---
EXAM DATE/TIME: 08/27/2016 00:59 [facility] COMPARISON: CHEST SINGLE AP, August 26, 2016, 17:11. INDICATIONS : Confirm ETT placement, post CABG MEDICAL HISTORY : Hypertension. Carcinoma, colon. Myocardial infarction. A-fib, Coronary artery disease SURGICAL HISTORY : CABG. Abdominal aortic aneurysm repair. Ablation, Cardiac cath ENCOUNTER: Initial ACUITY: 1 day PAIN SCORE: Non-responsive. LOCATION: Bilateral chest FINDINGS: The cardiac silhouette is enlarged in transverse diameter. There are findings of congestive heart carrol lure with interstitial and alveolar opacity bilaterally. This is new when compared with the prior exa m. Endotracheal tube is in good position above the thor. CONCLUSION: 1. Satisfactory position of endotracheal tube as above. 2. Cardiomegaly and findings of congestive heart failure. This is new when compared with the prior ex am. Reymundo Sampson MD on August 27, 2016 at 1:53 Board Certified Radiologist. This report was verified electronically.
[2016-08-27] MEDS ORDERED: INSULIN REGULAR 100 UNITS/100 ML NS INDIVIDUALIZED ALG IV SCH ×2 (02:00)
[2016-08-27] MEDS ORDERED: DEXTROSE 50% IN WATER 50 ML VIAL(D50) IV PUSH PRN ×2 (02:00)
[2016-08-27] MEDS: ACETAMINOPHEN 1000 MG/100 ML VIAL IV SCH ×4 (02:01→18:30)
[2016-08-27 05:15] LABS: HEMATOCRIT 35.1 % (39.0-51.0); MEAN CELL VOLUME 95.3 FL (80.0-100.0); MEAN CORPUSCULAR HEMOGLOBIN 31.8 PG (27.0-34.0); MEAN CORPUSCULAR HGB CONC 33.4 % (32.0-36.0); PLATELET COUNT 108 TH/MM3 (150-450); RED BLOOD COUNT 3.68 MIL/MM3 (4.50-5.90); RED CELL DISTRIBUTION WIDTH 14.5 % (11.6-17.2); REVIEW FLAG FINAL; WHITE BLOOD COUNT 13.1 TH/MM3 (4.0-11.0)
[2016-08-27] MEDS: RESP: ALBUTEROL 2.5 MG/IPRATROPIUM 0.5 MG NEB (SCH) NEB ×5 (05:20→21:05)
[2016-08-27 05:56] LABS: MAGNESIUM 2.8 MG/DL (1.5-2.5); POTASSIUM 4.4 MEQ/L (3.5-5.1)
[2016-08-27] MEDS: METOPROLOL TARTRATE 5 MG/5 ML VIAL IV PUSH SCH ×2 (06:00)
--- NOTE | 2016-08-27 06:19 | RADRPT ---
EXAM DATE/TIME: 08/27/2016 04:20 [facility] COMPARISON: CHEST SINGLE AP, August 27, 2016, 0:59. INDICATIONS : Post CABG MEDICAL HISTORY : Hypertension. Carcinoma, colon. Myocardial infarction. A-fib, Coronary artery disease SURGICAL HISTORY : CABG. Abdominal aortic aneurysm repair. Ablation, cardiac cath ENCOUNTER: Subsequent ACUITY: 2 days PAIN SCORE: Non-responsive. LOCATION: Bilateral chest FINDINGS: The cardiac silhouette is normal in transverse diameter. Median sternotomy wires are present. Support lines and tubes are in satisfactory position. There is no evidence of pneumothorax. There is patchy alveolar disease bilaterally compatible with edema or pneumonia. CONCLUSION: 1. Patchy alveolar disease characteristic of edema or pneumonia. The findings are improved when comp ared with the prior exam. Reymundo Sampson MD on August 27, 2016 at 6:17 Board Certified Radiologist. This report was verified electronically.
[2016-08-27] MEDS: SODIUM CHLOR 0.9% 1000 ML INJ 1,000 ML IV SCH (08:31)
[2016-08-27] MEDS: ceFAZolin 2 GM PREMIX 50 ML IV SCH ×2 (08:39→15:03)
--- NOTE | 2016-08-27 08:45 | EKG ---
Date Performed: 08/27/2016 Time Performed: 04:49:04 PTAGE: 75 years EKG: Sinus rhythm with borderline 1st degree A-V block Inferior infarct - age undetermined Anterior T wave changes are nonspecific Low QRS voltages in precordial leads Abnormal ECG PREVIOUS TRACING : 08/24/2016 21.22 Compared to prior tracing no significant change DOCTOR: Giancarlo Gomez Interpretating Date/Time 08/27/2016 08:43:28
[2016-08-27] MEDS: SODIUM CHLORIDE 0.9% FLUSH 10 ML FLUSH IV FLUSH SCH ×2 (09:00→20:41)
[2016-08-27] MEDS ORDERED: BISACODYL 10 MG SUPP RECTAL PRN (09:30)
[2016-08-27] MEDS ORDERED: SOD PHOSPHATE/SOD BIPHOSPHATE (ADULT) ENEMA 133ML RECTAL PRN (09:30)
[2016-08-27] MEDS ORDERED: DEXTROSE 50% IN WATER 50 ML VIAL(D50) IV PRN (09:30)
[2016-08-27] MEDS ORDERED: GLUCAGON 1 MG/ML VIAL OTHER PRN (09:30)
[2016-08-27] MEDS ORDERED: PILL SPLITTER OTHER PRN (09:45)
[2016-08-27] MEDS: METOPROLOL TARTRATE 25 MG TAB PO SCH ×2 (09:48→20:42)
[2016-08-27] MEDS: PANTOPRAZOLE SOD 40 MG DELAYED RELEASE TAB PO SCH (09:48)
[2016-08-27] MEDS: oxyCODONE/ACETAMINOPHEN 5 MG/325 MG TAB PO PRN ×4 (09:48→21:21)
[2016-08-27] MEDS: ASPIRIN 81 MG CHEW TAB PO SCH (09:49)
[2016-08-27] MEDS: INSULIN ASPART SUPPLEMENTAL SCALE SQ SCH ×4 (09:55→22:00)
--- NOTE | 2016-08-27 11:29 | HHI.CCPN ---
Subjective Remarks/Hospital Course Patient is a 75-year-old male with past medical history of hypertension, hyperlipidemia, history of colon cancer, , bladder cancer, Atrial fibrillation with status post ablation in 2009, CAD, AR in 1999 and in 2009 status post stent, history of CVA, carotid stenosis, history of thoracic and abdominal aneurysms, history of [facility] [facility] pacemaker placed in who presented to the emergency department with retrosternal 8 out of 10 chest pain radiating to left shoulder. He has history of prior ascending aortic aneurysm which is followed by the [facility], also open abdominal aortic aneurysm repair 8 years ago at [facility] by Dr. Santos. CTA of the chest which showed descending thoracic aorta was tortuous and aneurysmal measuring 4.4 cm proximately and 5.4 cm distally near the hiatus. Patient ruled in for non-ST elevation AR with troponin elevation. Cardiology was consulted Dr. Moran, vision placed on medical management with IV heparin, beta blockers and aspirin. A cardiac catheterization was performed which revealed multivessel coronary artery disease and Dr. Zamora was consulted for CABG Patient was scheduled for CABG for tomorrow. Around 5 PM I was called to the room as the patient was in severe distress due to worsening chest pain. On my evaluation patient complains about 10/10 chest pain and patient was anxious and tachycardic. He was getting nitroglycerin infusion at 150 mcg/m. with myself present in the room I asked the nurse to give metoprolol IV push 2.5 mg 3 over the next 10 minutes. Patient's heart rate eventually came down to 80-90 with improvement in chest pain now down to 5 out of 10. Patient is currently on nitroglycerin and heparin infusions. I discussed with resident care assistant Dr. Moran and CT surgery Dr. Meza. Certainly the best option is to proceed with emergency CABG. 08/27 Patient s/p CABG x3 last night extubated this morning on 5L oxygen with good sats. Afebrile. Objective Vital Signs Date Time Temp Pulse Resp B/P Pulse Ox O2 Delivery O2 Flow Rate FiO2 08/27/16 10:43 18 08/27/16 07:57 96 Nasal Cannula 5.00 08/27/16 07:00 45 08/27/16 07:00 97.9 97 106/69 101/56 Intake and Output 08/26/16 08/26/16 08/26/16 07:59 15:59 23:59 Intake Total 358 ml 494 ml Output Total 300 ml 325 ml Balance 58 ml 169 ml Result Diagram: 08/27/16 0500 08/27/16 0500 Other Results Laboratory Tests Test 08/26/16 08/26/16 08/26/16 08/26/16 11:26 16:20 17:25 17:46 White Blood Count 9.9 TH/MM3 Red Blood Count 3.98 MIL/MM3 Hemoglobin 12.7 GM/DL Hematocrit 38.5 % Mean Corpuscular Volume 96.6 FL Mean Corpuscular Hemoglobin 32.0 PG Mean Corpuscular Hemoglobin 33.1 % Concent Red Cell Distribution Width 14.3 % Platelet Count 134 TH/MM3 Mean Platelet Volume 8.1 FL Neutrophils (%) (Auto) 73.5 % Lymphocytes (%) (Auto) 15.3 % Monocytes (%) (Auto) 8.9 % Eosinophils (%) (Auto) 2.0 % Basophils (%) (Auto) 0.3 % Neutrophils # (Auto) 7.3 TH/MM3 Lymphocytes # (Auto) 1.5 TH/MM3 Monocytes # (Auto) 0.9 TH/MM3 Eosinophils # (Auto) 0.2 TH/MM3 Basophils # (Auto) 0.0 TH/MM3 CBC Comment DIFF FINAL Differential Comment Activated Partial 33.0 SEC 53.9 SEC Thromboplast Time Sodium Level 133 MEQ/L Potassium Level 4.8 MEQ/L Chloride Level 99 MEQ/L Carbon Dioxide Level 26.7 MEQ/L Anion Gap 7 MEQ/L Blood Urea Nitrogen 27 MG/DL Creatinine 1.69 MG/DL Estimat Glomerular Filtration 40 ML/MIN Rate Random Glucose 129 MG/DL Calcium Level 8.6 MG/DL Phosphorus Level 2.7 MG/DL Magnesium Level 1.9 MG/DL Triglycerides Level 173 MG/DL Cholesterol Level 173 MG/DL LDL Cholesterol 99 MG/DL HDL Cholesterol 39.4 MG/DL Cholesterol/HDL Ratio 4.39 RATIO Blood Gas Puncture Site LT RADIAL Blood Gas Patient Temperature 98.6 Blood Gas HCO3 23 mmol/L Blood Gas Base Excess -1.5 mmol/L Blood Gas Oxygen Saturation 95 % Arterial Blood pH 7.36 Arterial Blood Partial 42 mmHg Pressure CO2 Arterial Blood Partial 114 mmHg Pressure O2 Arterial Blood Oxygen Content 17.3 Vol % Arterial Blood 2.1 % Carboxyhemoglobin Arterial Blood Methemoglobin 1.5 % Blood Gas Hemoglobin 12.9 G/DL Oxygen Delivery Device SIMPLE MASK Blood Gas Liter Flow 10 L/M Troponin I 2.26 NG/ML Test 08/27/16 05:00 White Blood Count 13.1 TH/MM3 Red Blood Count 3.68 MIL/MM3 Hemoglobin 11.7 GM/DL Hematocrit 35.1 % Mean Corpuscular Volume 95.3 FL Mean Corpuscular Hemoglobin 31.8 PG Mean Corpuscular Hemoglobin 33.4 % Concent Red Cell Distribution Width 14.5 % Platelet Count 108 TH/MM3 Mean Platelet Volume 9.3 FL Sodium Level 135 MEQ/L Potassium Level 4.4 MEQ/L Chloride Level 100 MEQ/L Carbon Dioxide Level 24.0 MEQ/L Anion Gap 11 MEQ/L Blood Urea Nitrogen 28 MG/DL Creatinine 1.60 MG/DL Estimat Glomerular Filtration 42 ML/MIN Rate Random Glucose 152 MG/DL Calcium Level 7.8 MG/DL Magnesium Level 2.8 MG/DL Imaging Last Impressions Chest X-Ray 08/27/16 0500 Signed Impressions: Service Date/Time: Saturday, August 27, 2016 04:20 - CONCLUSION: 1. Patchy alveolar disease characteristic of edema or pneumonia. The findings are improved when compared with the prior exam. Reymundo Sampson MD Lower Extremity Ultrasound 08/25/16 0000 Signed Impressions: Service Date/Time: Thursday, August 25, 2016 18:34 - CONCLUSION: 1. Venous mapping as above. Interrogated vessels are patent. Ajay Prabhakar MD Carotid Artery Ultrasound 08/25/16 0000 Signed Impressions: Service Date/Time: Thursday, August 25, 2016 18:11 - CONCLUSION: 1. No evidence for hemodynamically significant stenosis. Moderate atherosclerotic plaquing of the left common carotid artery. Ajay Prabhakar MD Aorta CTA 08/24/16 0000 Signed Impressions: Service Date/Time: Wednesday, August 24, 2016 15:47 - CONCLUSION: 1. Fusiform thoracoabdominal aortic aneurysm containing mild to moderate neural fundus with measurements as above. Largest caliber of the thoracic aorta distally near the aortic hiatus measures 5.4 cm. Largest caliber of the abdominal aorta in the supraceliac portion measures 4.2 cm. Largest caliber of the infrarenal abdominal aorta measures 4.1 cm with moderate mural thrombus. 2. No evidence for aortic dissection or aneurysm rupture/leak. 3. Moderate left hydroureteronephrosis extending to the UVJ without a radiopaque renal calculi or discernible mass on CT. Patient does have a history of bladder CA. Therefore, this likely reflects UVJ involvement by new or previously treated tumor. Clinical correlation is recommended. 4. Slightly prominent main pulmonary artery may reflect some degree of pulmonary artery hypertension. 5. Two adjacent 2-3 mm nodules in the right upper lower lobe. Followup examination may be performed in 12 months per 2017 Fleischner criteria as indicated. 6. Moderate to severe coronary artery calcifications. Richardson Haney MD Objective Remarks GENERAL: Patient is 75 yo lying in bed in NAD SKIN: Warm and dry. HEAD: Normocephalic. EYES: No scleral icterus. No injection or drainage. NECK: Supple, trachea midline. No JVD or lymphadenopathy. CARDIOVASCULAR: Regular rate and rhythm without murmurs, gallops, or rubs. RESPIRATORY: Breath sounds equal bilaterally. No accessory muscle use. GASTROINTESTINAL: Abdomen soft, non-tender, nondistended. MUSCULOSKELETAL: No cyanosis, or edema. Neuro: Awake and alert A/P Assessment and Plan ASSESSMENT ACS/NSTEMI Severe three-vessel disease Aneurysmal dilation descending thoracic aorta History of aortic abdominal aneurysm repair. History of atrial fibrillation post ablation Coronary artery disease and prior to my Hypertension. Hyperlipidemia, he is intolerant to statins. History of CVA History of colon and bladder cancer PLAN: NEURO: - As needed Dilaudid Morphine for pain - Awake and alert RESP: - Wean down oxygen as azra keep sat >92% - DuoNeb every 6 hours when necessary, IS -Pulm is following-Dr. Encinas CV: -Monitor HR and BP keep MAP>65mmHg On Lopressor 12.5mg BID, ASA daily Monitor CT drainage s/p cardiac cath 08/25- 3VD, echo showed EF 50-55% - Dr. Christensen consulted for thoracoabdominal aortic aneurysm GI: - Start PO diet if ok with CTS : - Monitor renal function, I/O's, avoid nephrotoxins -Cr: 1.60 today from 1.69. diurese with Bumex 1mg x1 ID: - Perioperative antibiotics per cardiothoracic surgery- On Cefazolin. -Monitor for signs of infections ( Fever, WBC) follow up on sputum cx HEME: -Monitor CBC, coags ENDO: - Electrolyte replacement per protocol -SSI for glycemic control PROPH: - Bilateral lower extremity SCDs. IV heparin, Protonix LINES: - Utilize peripheral IVs, Level 2 Ainsa Mathias MD Aug 27, 2016 11:29
[2016-08-27] MEDS ORDERED: BUMETANIDE INJ 1 MG/4 ML VIAL IV PUSH ONE (12:15)
--- NOTE | 2016-08-27 14:50 | EKG ---
Date Performed: 08/26/2016 Time Performed: 17:33:06 PTAGE: 75 years EKG: Sinus tachycardia Possible inferior infarct - age undetermined Abnormal ECG NO PREVIOUS TRACING DOCTOR: Giancarlo Gomez Interpretating Date/Time 08/27/2016 14:48:53
--- NOTE | 2016-08-27 15:36 | PD.CAR.PN ---
CVT Progress Note Subjective/Hospital Course: 75/ male with multiple comorbities , admitted with symptoms of unstable angina, hx of atrial fib on coumadin at home , CAD prior stent , presented with chest pain , initially thought to be a dissecting aneurysm CT chest did show thoracoabdominal aortic aneursym of 5.4cm , pt has had prior AAA repair at [facility] 8 yrs ago. He underwent cardiac cath which shoed severe 3 vessel disease including Left main disease 60-80%. EF50% mild MR, CTA also showed 2 small 2-3 mm lung nodule right upper lobe, pulm HTN, moderate left hydronephrosis CT Abdomen and pelvis pending PMH: HTN, HLP, colon and bladder CA, Afib/ post ablation, CAD/ND, carotid stenossi ( carotid endarectomy , hx of thoracic and abdominal aneurysms 08/26 pt developed hemopytis this am , while on heparin , INR 1.3, heparin stopped sputum pending, appreciated pulm input will still plan for surgery in am, first case / Dr Zamora discussed with anesthesia 08/26/16 19:31 Patient with refractory angina despite IV NTG, BB, heparin. Increased dyspnea and worsening hypoxia as well. He is also oliguric with increasing creatinine and had hemoptysis earlier. He appears to have a left ureteral obstruction as well. His risk of surgery is high, but the risk of not intervening is higher. I discussed this with him and his and he agrees to proceed as an emergency tonight. 08/26 surgery: Emergency pump assisted beating heart CABG x 3, LINK to LAD - good , SVG to PDA - good, SVG to OM - fair, NEYMAR, EVH 2500cc crystalloid, 1150cc cell saver, 800cc urine 08/27 extubated early this am, still sleepy has some left arm weakness, speech clear but slow no pressors, weaned off insulin gtt gentle diuresis / monitor renal indices on ASA, low dose BB , no statin due to allergy will leave in CVICU today, PT/ OT Objective: GENERAL: awake , sleepy, SKIN: Warm and dry. prevena to chest , jose wrap to leg HEAD: Normocephalic. EYES: No scleral icterus. No injection or drainage. NECK: Supple, trachea midline. No JVD or lymphadenopathy. CARDIOVASCULAR: Regular rate and rhythm without murmurs, gallops, or rubs. RESPIRATORY: Breath sounds equal bilaterally. No accessory muscle use, diminished in bases, few coarse breath sounds . chest tube to wall suction / drained 320cc/ 12 hrs GASTROINTESTINAL: Abdomen soft, non-tender, nondistended. MUSCULOSKELETAL: No cyanosis, or edema. 4/5 left arm, unable to lift hand at the wrist, able to abduct arm and shoulder shrug BACK: Nontender without obvious deformity. No CVA tenderness. Vital Signs Date Time Temp Pulse Resp B/P Pulse Ox O2 Delivery O2 Flow Rate FiO2 08/27/16 14:13 18 08/27/16 13:24 18 08/27/16 11:00 98.5 104 18 121/74 97 08/27/16 11:00 114 08/27/16 11:00 97 Nasal Cannula 4.00 08/27/16 10:00 97.9 08/27/16 09:40 18 08/27/16 07:57 96 Nasal Cannula 5.00 08/27/16 07:20 95 Nasal Cannula 5 08/27/16 07:00 96 Mechanical Ventilator 45 08/27/16 07:00 45 08/27/16 07:00 97.9 97 18 106/69 96 101/56 08/27/16 07:00 100 08/27/16 06:22 97.1 08/27/16 05:20 99 50 08/27/16 04:00 100 08/27/16 04:00 97.4 94 14 96/63 94 119/62 08/27/16 04:00 99 Mechanical Ventilator 85 08/27/16 03:00 78 08/27/16 03:00 100 08/27/16 01:50 97.6 08/27/16 01:02 100 60 08/27/16 01:00 97.6 89 12 95/58 94 126/49 08/27/16 01:00 100 08/27/16 01:00 89 08/27/16 01:00 94 Mechanical Ventilator 100 08/26/16 19:00 87 08/26/16 19:00 97 Simple Mask 10.00 08/26/16 19:00 84 20 119/84 97 08/26/16 18:55 95 Simple Mask 10.00 08/26/16 17:56 18 Labs: Laboratory Tests Test 08/27/16 05:00 White Blood Count 13.1 TH/MM3 (4.0-11.0) Red Blood Count 3.68 MIL/MM3 (4.50-5.90) Hemoglobin 11.7 GM/DL (13.0-17.0) Hematocrit 35.1 % (39.0-51.0) Mean Corpuscular Volume 95.3 FL (80.0-100.0) Mean Corpuscular Hemoglobin 31.8 PG (27.0-34.0) Mean Corpuscular Hemoglobin 33.4 % Concent (32.0-36.0) Red Cell Distribution Width 14.5 % (11.6-17.2) Platelet Count 108 TH/MM3 (150-450) Mean Platelet Volume 9.3 FL (7.0-11.0) Sodium Level 135 MEQ/L (136-145) Potassium Level 4.4 MEQ/L (3.5-5.1) Chloride Level 100 MEQ/L (98-107) Carbon Dioxide Level 24.0 MEQ/L (21.0-32.0) Anion Gap 11 MEQ/L (5-15) Blood Urea Nitrogen 28 MG/DL (7-18) Creatinine 1.60 MG/DL (0.60-1.30) Estimat Glomerular Filtration 42 ML/MIN (>89) Rate Random Glucose 152 MG/DL (74-106) Calcium Level 7.8 MG/DL (8.5-10.1) Magnesium Level 2.8 MG/DL (1.5-2.5) Result Diagram: 08/27/16 0500 08/27/16 0500 Telemetry: NSR (1) NSTEMI (non-ST elevated myocardial infarction) Plan: for surgery in am (2) S/P CABG x 3 Plan: ASA, low dose BB no statin 2/2 allergy nebs, wean 02 as tolerated, gentle diuresis PT/OT may need rehab at discharge (3) ANNY (acute kidney injury) (4) CKD (chronic kidney disease), stage III Plan: creatinine 1.60 (5) Hydroureteronephrosis Plan: will need renal eval (6) Hemoptysis Plan: improved , appreciate Pulm input (7) Thoracic aortic aneurysm without rupture Plan: outpt f/u with Dr Marx (8) History of CVA (cerebrovascular accident) Plan: now with postop left arm weakness, PT/OT may need rehab also may need CT Brain Mick,Casandra R. HOSPITAL INSURANCE REPRESENTATIVE Aug 27, 2016 15:36
--- NOTE | 2016-08-27 18:44 | HHI.PR ---
Subjective Remarks Went for CABG last PM. Now extubated and on o2 4L Able to take some deep breaths. O 2 sat 95. Has edema of limbs Objective Vital Signs Date Time Temp Pulse Resp B/P Pulse Ox O2 Delivery O2 Flow Rate FiO2 08/27/16 15:00 97.6 99 18 118/72 95 08/27/16 15:00 95 Nasal Cannula 4.00 08/27/16 15:00 100 08/27/16 14:13 18 08/27/16 13:24 18 08/27/16 11:00 98.5 104 18 121/74 97 08/27/16 11:00 114 08/27/16 11:00 97 Nasal Cannula 4.00 08/27/16 10:00 97.9 08/27/16 09:40 18 08/27/16 07:57 96 Nasal Cannula 5.00 08/27/16 07:20 95 Nasal Cannula 5 08/27/16 07:00 96 Mechanical Ventilator 45 08/27/16 07:00 45 08/27/16 07:00 97.9 97 18 106/69 96 101/56 08/27/16 07:00 100 08/27/16 06:22 97.1 08/27/16 05:20 99 50 08/27/16 04:00 100 08/27/16 04:00 97.4 94 14 96/63 94 119/62 08/27/16 04:00 99 Mechanical Ventilator 85 08/27/16 03:00 78 08/27/16 03:00 100 08/27/16 01:50 97.6 08/27/16 01:02 100 60 08/27/16 01:00 97.6 89 12 95/58 94 126/49 08/27/16 01:00 100 08/27/16 01:00 89 08/27/16 01:00 94 Mechanical Ventilator 100 08/26/16 19:00 87 08/26/16 19:00 97 Simple Mask 10.00 08/26/16 19:00 84 20 119/84 97 08/26/16 18:55 95 Simple Mask 10.00 I/O 08/26/16 08/26/16 08/26/16 08/27/16 08/27/16 08/27/16 07:00 15:00 23:00 07:00 15:00 23:00 Intake Total 358 ml 494 ml 1933 ml 500 ml Output Total 300 ml 325 ml 885 ml 1365 ml Balance 58 ml 169 ml 1048 ml -865 ml Intake Oral 240 ml 240 ml 0 ml 100 ml IV Total 118 ml 254 ml 1933 ml 400 ml Output Urine Total 300 ml 325 ml 565 ml 1135 ml Chest Tube Drainage Total 320 ml 230 ml # Voids 1 1 # Bowel Movements 0 0 0 0 Result Diagram: 08/27/16 0500 08/27/16 0500 Objective Remarks There is moderately built elderly man in bed in no acute distress. He is on oxygen. HEENT: Head normocephalic. Pupils are reactive. Throat is clear. Nasal mucosa injected. NECK: Supple with no venous distension. No definite bruits or thyroid enlargement. CHEST: Equal movements with decreased excursions. Breath sounds diminished at the bases with occasional basilar crackles. HEART: Heart sounds are irregular S1-S2. No murmur. No S3. ABDOMEN: Soft, protuberant. No masses or organomegaly. EXTREMITIES: No lesions and minimal edema. Reflexes are 1+ with no gross motor deficits. SKIN: No lesions observed. Assessment and Plan Assessment and Plan IMPRESSION 1. Hemoptysis, resolving. 2. Right lower lung nodules 3. Critical coronary artery disease 4. Severe aneurysmal dilatation of the thoracoabdominal aorta. 5. Coagulopathy from use of heparin and Coumadin. 6. Hypertension 7. Hyperlipidemia 8. Probable underlying COPD. Plan : 1. Wean O2 to 3 L. 2. IS at bedside qid. 3. EZ Pap qid with nebs. 4. Duonebs qid. PRN 5. CXR,CBC,BMP In am. 6. Bumex 1 mg IV today Jaime Encinas MD Aug 27, 2016 18:44
[2016-08-27] MEDS: PRAVASTATIN SOD 10 MG TAB PO SCH ×2 (20:41→20:46)
[2016-08-27] MEDS: SENNOSIDES 8.6 MG TAB PO SCH (20:41)
[2016-08-27] MEDS: DOCUSATE SODIUM 100 MG CAP PO SCH (20:41)
[2016-08-28] VITALS (9 sets, daily range): BP systolic 112–133; BP diastolic 74–80; PULSE 11–118; RESP 15–20; TEMP 97.8–98.8; O2SAT 95–98
[2016-08-28] MEDS: oxyCODONE/ACETAMINOPHEN 5 MG/325 MG TAB PO PRN (00:31)
[2016-08-28] MEDS: ceFAZolin 2 GM PREMIX 50 ML IV SCH ×3 (00:32→16:52)
[2016-08-28] MEDS: INSULIN ASPART SUPPLEMENTAL SCALE SQ SCH ×6 (03:35→22:00)
[2016-08-28] MEDS: RESP: ALBUTEROL 2.5 MG/IPRATROPIUM 0.5 MG NEB (SCH) NEB ×9 (04:00→22:00)
[2016-08-28 05:03] LABS: AUTOMATED NEUTROPHIL # 8.1 TH/MM3 (1.8-7.7); BASOPHIL % 0.3 % (0.0-2.0); EOSINOPHIL # 0.4 TH/MM3 (0-0.4); EOSINOPHIL % 3.6 % (0.0-4.0); HEMATOCRIT 32.7 % (39.0-51.0); HEMO FLAGS DIFF FINAL; LYMPH % 8.8 % (9.0-44.0); LYMPHOCYTE # 0.9 TH/MM3 (1.0-4.8); MEAN CELL VOLUME 96.2 FL (80.0-100.0); MEAN CORPUSCULAR HGB CONC 33.3 % (32.0-36.0); MONO % 11.5 % (0.0-8.0); NEUT % 75.8 % (16.0-70.0); PLATELET COUNT 119 TH/MM3 (150-450); RED CELL DISTRIBUTION WIDTH 14.5 % (11.6-17.2); WHITE BLOOD COUNT 10.7 TH/MM3 (4.0-11.0)
[2016-08-28 05:18] LABS: BICARBONATE 28.5 MEQ/L (21.0-32.0); MAGNESIUM 2.1 MG/DL (1.5-2.5); POTASSIUM 4.4 MEQ/L (3.5-5.1)
[2016-08-28] MEDS: PANTOPRAZOLE SOD 40 MG DELAYED RELEASE TAB PO SCH (05:33)
--- NOTE | 2016-08-28 06:33 | RADRPT ---
EXAM DATE/TIME: 08/28/2016 03:55 [facility] COMPARISON: CHEST SINGLE AP, August 27, 2016, 4:20. INDICATIONS : Post CABG, Evaluate left side chest tube MEDICAL HISTORY : Hypertension. Carcinoma, colon. Myocardial infarction. A-fib, Coronary artery disease SURGICAL HISTORY : CABG. Abdominal aortic aneurysm repair. ENCOUNTER: Subsequent ACUITY: 3 days PAIN SCORE: 8/10 LOCATION: Bilateral chest FINDINGS: There has been interval extubation. Right central line remains in place. Left thoracostomy tube is no mc. Mild hazy left base parenchymal opacity which is grossly stable. Right lung is focally clear. Ac counting for differences in projection, the cardiac contours appear grossly stable. CONCLUSION: Interval extubation. Otherwise stable chest. Jarad De Jesus MD on August 28, 2016 at 6:31 Board Certified Radiologist. This report was verified electronically.
--- NOTE | 2016-08-28 08:24 | PD.CAR.PN ---
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 8 yrs ago. He underwent cardiac cath which shoed severe 3 vessel disease including Left main disease 60-80%. EF50% mild MR, CTA also showed 2 small 2-3 mm lung nodule right upper lobe, pulm HTN, moderate left hydronephrosis CT Abdomen and pelvis pending PMH: HTN, HLP, colon and bladder CA, Afib/ post ablation, CAD/TN, carotid stenossi ( carotid endarectomy , hx of thoracic and abdominal aneurysms 08/26 pt developed hemopytis this am , while on heparin , INR 1.3, heparin stopped sputum pending, appreciated pulm input will still plan for surgery in am, first case / Dr Zamora discussed with anesthesia 08/26/16 19:31 Patient with refractory angina despite IV NTG, BB, heparin. Increased dyspnea and worsening hypoxia as well. He is also oliguric with increasing creatinine and had hemoptysis earlier. He appears to have a left ureteral obstruction as well. His risk of surgery is high, but the risk of not intervening is higher. I discussed this with him and his and he agrees to proceed as an emergency tonight. 08/26 surgery: Emergency pump assisted beating heart CABG x 3, LINK to LAD - good , SVG to PDA - good, SVG to OM - fair, NEYMAR, EVH 2500cc crystalloid, 1150cc cell saver, 800cc urine 08/27 extubated early this am, still sleepy has some left arm weakness, speech clear but slow no pressors, weaned off insulin gtt gentle diuresis / monitor renal indices on ASA, low dose BB , no statin due to allergy will leave in CVICU today, PT/ OT 08/28/16 Lethargic, but better than yesterday. No complaints Objective: Vital Signs Date Time Temp Pulse Resp B/P Pulse Ox O2 Delivery O2 Flow Rate FiO2 08/28/16 07:00 96 Nasal Cannula 4.00 08/28/16 07:00 108 08/28/16 07:00 97.9 98 20 112/75 96 08/28/16 03:50 98.2 111 15 117/77 95 08/28/16 03:50 96 Nasal Cannula 4.00 08/28/16 03:50 11 08/27/16 23:21 96 Nasal Cannula 4.00 08/27/16 23:21 108 08/27/16 23:21 98.4 108 16 138/84 95 08/27/16 21:06 96 Nasal Cannula 2.00 08/27/16 19:10 95 Nasal Cannula 4.00 08/27/16 19:10 98.2 104 16 133/82 95 Arterial Line 08/27/16 19:00 104 08/27/16 15:00 97.6 99 18 118/72 95 08/27/16 15:00 95 Nasal Cannula 4.00 08/27/16 15:00 100 08/27/16 14:13 18 08/27/16 13:24 18 08/27/16 11:00 98.5 104 18 121/74 97 08/27/16 11:00 114 08/27/16 11:00 97 Nasal Cannula 4.00 08/27/16 10:00 97.9 08/27/16 09:40 18 Labs: Laboratory Tests Test 08/28/16 04:20 White Blood Count 10.7 TH/MM3 (4.0-11.0) Red Blood Count 3.40 MIL/MM3 (4.50-5.90) Hemoglobin 10.9 GM/DL (13.0-17.0) Hematocrit 32.7 % (39.0-51.0) Mean Corpuscular Volume 96.2 FL (80.0-100.0) Mean Corpuscular Hemoglobin 32.0 PG (27.0-34.0) Mean Corpuscular Hemoglobin 33.3 % Concent (32.0-36.0) Red Cell Distribution Width 14.5 % (11.6-17.2) Platelet Count 119 TH/MM3 (150-450) Mean Platelet Volume 9.2 FL (7.0-11.0) Neutrophils (%) (Auto) 75.8 % (16.0-70.0) Lymphocytes (%) (Auto) 8.8 % (9.0-44.0) Monocytes (%) (Auto) 11.5 % (0.0-8.0) Eosinophils (%) (Auto) 3.6 % (0.0-4.0) Basophils (%) (Auto) 0.3 % (0.0-2.0) Neutrophils # (Auto) 8.1 TH/MM3 (1.8-7.7) Lymphocytes # (Auto) 0.9 TH/MM3 (1.0-4.8) Monocytes # (Auto) 1.2 TH/MM3 (0-0.9) Eosinophils # (Auto) 0.4 TH/MM3 (0-0.4) Basophils # (Auto) 0.0 TH/MM3 (0-0.2) CBC Comment DIFF FINAL Differential Comment Sodium Level 135 MEQ/L (136-145) Potassium Level 4.4 MEQ/L (3.5-5.1) Chloride Level 100 MEQ/L (98-107) Carbon Dioxide Level 28.5 MEQ/L (21.0-32.0) Anion Gap 7 MEQ/L (5-15) Blood Urea Nitrogen 28 MG/DL (7-18) Creatinine 1.59 MG/DL (0.60-1.30) Estimat Glomerular Filtration 43 ML/MIN (>89) Rate Random Glucose 124 MG/DL (74-106) Calcium Level 8.1 MG/DL (8.5-10.1) Magnesium Level 2.1 MG/DL (1.5-2.5) Result Diagram: 08/28/1641908/28/16419 Imaging: Last 24 hours Impressions Chest X-Ray 08/28/16 0600 Signed Impressions: Service Date/Time: Sunday, August 28, 2016 03:55 - CONCLUSION: Interval extubation. Otherwise stable chest. Jarad De Jesus MD Cardiovascular: RRR Pulmonary: Bilat crackles GI/: Decreased BS Incision: dry and intact CT: ~230ml/12hrs Plan: diurese Encourage ambulation, up to chair Incentive spirometry Beta chai, statin ASA Continue chest tubes (1) NSTEMI (non-ST elevated myocardial infarction) Plan: for surgery in am (2) S/P CABG x 3 Plan: ASA, low dose BB no statin 2/2 allergy nebs, wean 02 as tolerated, gentle diuresis PT/OT may need rehab at discharge (3) ANNY (acute kidney injury) (4) CKD (chronic kidney disease), stage III Plan: creatinine 1.60 (5) Hydroureteronephrosis Plan: will need renal eval (6) Hemoptysis Plan: improved , appreciate Pulm input (7) Thoracic aortic aneurysm without rupture Plan: outpt f/u with Dr Marx (8) History of CVA (cerebrovascular accident) Plan: now with postop left arm weakness, PT/OT may need rehab also may need CT Brain Cece Zamora MD Aug 28, 2016 08:24
[2016-08-28] MEDS ORDERED: SOD PHOSPHATE/SOD BIPHOSPHATE (ADULT) ENEMA 133ML RECTAL PRN (08:30)
[2016-08-28] MEDS ORDERED: DEXTROSE 50% IN WATER 50 ML VIAL(D50) IV PRN (08:30)
[2016-08-28] MEDS ORDERED: BISACODYL 10 MG SUPP RECTAL PRN (08:30)
[2016-08-28] MEDS ORDERED: GLUCAGON 1 MG/ML VIAL OTHER PRN (08:30)
[2016-08-28] MEDS: SODIUM CHLOR 0.9% 1000 ML INJ 1,000 ML IV SCH (08:31)
[2016-08-28] MEDS: SODIUM CHLORIDE 0.9% FLUSH 10 ML FLUSH IV FLUSH SCH ×2 (08:36→21:00)
[2016-08-28] MEDS: MULTIVITAMINS/MINERALS THERAPEUTIC TAB PO SCH (08:36)
[2016-08-28] MEDS: ASPIRIN 81 MG CHEW TAB PO SCH (08:36)
[2016-08-28] MEDS: DOCUSATE SODIUM 100 MG CAP PO SCH ×2 (08:36→21:00)
[2016-08-28] MEDS: METOPROLOL TARTRATE 25 MG TAB PO SCH ×2 (08:37→21:00)
[2016-08-28] MEDS: MAGNESIUM HYDROXIDE SUSP 30 ML CUP PO SCH (08:37)
[2016-08-28] MEDS: POLYETHYLENE GLYCOL 17 GM PKG PO SCH (08:37)
[2016-08-28] MEDS ORDERED: FUROSEMIDE 40 MG/4 ML VIAL IV PUSH ONE (08:45)
[2016-08-28] MEDS ORDERED: MAGNESIUM HYDROXIDE SUSP 30 ML CUP PO SCH (09:00)
[2016-08-28] MEDS ORDERED: MULTIVITAMINS/MINERALS THERAPEUTIC TAB PO SCH (09:00)
[2016-08-28] MEDS ORDERED: FUROSEMIDE 40 MG/4 ML VIAL IV PUSH SCH (09:00)
--- NOTE | 2016-08-28 10:48 | HHI.CCPN ---
Subjective Remarks/Hospital Course Patient is a 75-year-old male with past medical history of hypertension, hyperlipidemia, history of colon cancer, , bladder cancer, Atrial fibrillation with status post ablation in 2009, CAD, UT in 1999 and in 2009 status post stent, history of CVA, carotid stenosis, history of thoracic and abdominal aneurysms, history of [facility] pacemaker placed in who presented to the emergency department with retrosternal 8 out of 10 chest pain radiating to left shoulder. He has history of prior ascending aortic aneurysm which is followed by the [facility], also open abdominal aortic aneurysm repair 8 years ago at [facility] by Dr. Santos. CTA of the chest which showed descending thoracic aorta was tortuous and aneurysmal measuring 4.4 cm proximately and 5.4 cm distally near the hiatus. Patient ruled in for non-ST elevation UT with troponin elevation. Cardiology was consulted Dr. Moran, vision placed on medical management with IV heparin, beta blockers and aspirin. A cardiac catheterization was performed which revealed multivessel coronary artery disease and Dr. Zamora was consulted for CABG Patient was scheduled for CABG for tomorrow. Around 5 PM I was called to the room as the patient was in severe distress due to worsening chest pain. On my evaluation patient complains about 10/10 chest pain and patient was anxious and tachycardic. He was getting nitroglycerin infusion at 150 mcg/m. with myself present in the room I asked the nurse to give metoprolol IV push 2.5 mg 3 over the next 10 minutes. Patient's heart rate eventually came down to 80-90 with improvement in chest pain now down to 5 out of 10. Patient is currently on nitroglycerin and heparin infusions. I discussed with asphalt engineer Dr. Moran and CT surgery Dr. Meza. Certainly the best option is to proceed with emergency CABG. 08/27 Patient s/p CABG x3 last night extubated this morning on 5L oxygen with good sats. Afebrile. 08/28 Patient is lying in bed in NAD. Afebrile. Patient seems more lethargic today. Objective Vital Signs Date Time Temp Pulse Resp B/P Pulse Ox O2 Delivery O2 Flow Rate FiO2 08/28/16 08:24 96 Nasal Cannula 4.00 08/28/16 07:00 108 08/28/16 07:00 97.9 20 112/75 08/27/16 07:00 45 Intake and Output 08/27/16 08/27/16 08/28/16 08:00 16:00 00:00 Intake Total 1933 ml 500 ml Output Total 885 ml 1365 ml Balance 1048 ml -865 ml Result Diagram: 08/28/16 0420 08/28/16 0420 Other Results Laboratory Tests Test 08/28/16 04:20 White Blood Count 10.7 TH/MM3 Red Blood Count 3.40 MIL/MM3 Hemoglobin 10.9 GM/DL Hematocrit 32.7 % Mean Corpuscular Volume 96.2 FL Mean Corpuscular Hemoglobin 32.0 PG Mean Corpuscular Hemoglobin 33.3 % Concent Red Cell Distribution Width 14.5 % Platelet Count 119 TH/MM3 Mean Platelet Volume 9.2 FL Neutrophils (%) (Auto) 75.8 % Lymphocytes (%) (Auto) 8.8 % Monocytes (%) (Auto) 11.5 % Eosinophils (%) (Auto) 3.6 % Basophils (%) (Auto) 0.3 % Neutrophils # (Auto) 8.1 TH/MM3 Lymphocytes # (Auto) 0.9 TH/MM3 Monocytes # (Auto) 1.2 TH/MM3 Eosinophils # (Auto) 0.4 TH/MM3 Basophils # (Auto) 0.0 TH/MM3 CBC Comment DIFF FINAL Differential Comment Sodium Level 135 MEQ/L Potassium Level 4.4 MEQ/L Chloride Level 100 MEQ/L Carbon Dioxide Level 28.5 MEQ/L Anion Gap 7 MEQ/L Blood Urea Nitrogen 28 MG/DL Creatinine 1.59 MG/DL Estimat Glomerular Filtration 43 ML/MIN Rate Random Glucose 124 MG/DL Calcium Level 8.1 MG/DL Magnesium Level 2.1 MG/DL Imaging Last Impressions Chest X-Ray 08/28/16 0600 Signed Impressions: Service Date/Time: Sunday, August 28, 2016 03:55 - CONCLUSION: Interval extubation. Otherwise stable chest. Jarad De Jesus MD Lower Extremity Ultrasound 08/25/16 0000 Signed Impressions: Service Date/Time: Thursday, August 25, 2016 18:34 - CONCLUSION: 1. Venous mapping as above. Interrogated vessels are patent. Ajay Prabhakar MD Carotid Artery Ultrasound 08/25/16 0000 Signed Impressions: Service Date/Time: Thursday, August 25, 2016 18:11 - CONCLUSION: 1. No evidence for hemodynamically significant stenosis. Moderate atherosclerotic plaquing of the left common carotid artery. Ajay Prabhakar MD Aorta CTA 08/24/16 0000 Signed Impressions: Service Date/Time: Wednesday, August 24, 2016 15:47 - CONCLUSION: 1. Fusiform thoracoabdominal aortic aneurysm containing mild to moderate neural fundus with measurements as above. Largest caliber of the thoracic aorta distally near the aortic hiatus measures 5.4 cm. Largest caliber of the abdominal aorta in the supraceliac portion measures 4.2 cm. Largest caliber of the infrarenal abdominal aorta measures 4.1 cm with moderate mural thrombus. 2. No evidence for aortic dissection or aneurysm rupture/leak. 3. Moderate left hydroureteronephrosis extending to the UVJ without a radiopaque renal calculi or discernible mass on CT. Patient does have a history of bladder CA. Therefore, this likely reflects UVJ involvement by new or previously treated tumor. Clinical correlation is recommended. 4. Slightly prominent main pulmonary artery may reflect some degree of pulmonary artery hypertension. 5. Two adjacent 2-3 mm nodules in the right upper lower lobe. Followup examination may be performed in 12 months per 2017 Fleischner criteria as indicated. 6. Moderate to severe coronary artery calcifications. Richardson Haney MD Objective Remarks GENERAL: Patient is 75 yo lying in bed in NAD SKIN: Warm and dry. HEAD: Normocephalic. EYES: No scleral icterus. No injection or drainage. NECK: Supple, trachea midline. No JVD or lymphadenopathy. CARDIOVASCULAR: Regular rate and rhythm without murmurs, gallops, or rubs. RESPIRATORY: Breath sounds equal bilaterally. No accessory muscle use. GASTROINTESTINAL: Abdomen soft, non-tender, nondistended. MUSCULOSKELETAL: No cyanosis, or edema. Neuro: Awake and alert, weakness LUE noted 3/5. Able to move all extremities. A/P Assessment and Plan ASSESSMENT ACS/NSTEMI Severe three-vessel disease Aneurysmal dilation descending thoracic aorta History of aortic abdominal aneurysm repair. History of atrial fibrillation post ablation Coronary artery disease and prior to my Hypertension. Hyperlipidemia, he is intolerant to statins. History of CVA History of colon and bladder cancer PLAN: NEURO: - As needed Dilaudid Morphine for pain - Awake and alert, check CT brain wo contrast r/o CVA RESP: - Continue to wean down oxygen as azra keep sat >92% - DuoNeb every 6 hours when necessary, IS -Pulm is following-Dr. Encinas. Check ABG CV: -Monitor HR and BP keep MAP>65mmHg On Lopressor 12.5mg BID, ASA daily, Lasix 40mg BID Monitor CT drainage s/p cardiac cath 08/25- 3VD, echo showed EF 50-55% - Dr. Christensen consulted for thoracoabdominal aortic aneurysm GI: - On PO diet heart healthy diet : - Monitor renal function, I/O's, avoid nephrotoxins -Cr: 1.59 , UO: 2135ml in 24 hrs, On Lasix 40mg BID ID: - Perioperative antibiotics per cardiothoracic surgery- On Cefazolin. -Monitor for signs of infections ( Fever, WBC) sputum cx- nl resp jayna HEME: -Monitor CBC, coags ENDO: - Electrolyte replacement per protocol -SSI for glycemic control PROPH: - Bilateral lower extremity SCDs. Start chemical AC prophylaxis once cleared by CTS. - Protonix LINES: - Utilize peripheral IVs, Level 2 Anisa Mathias MD Aug 28, 2016 10:48
[2016-08-28 11:22] LABS: BLOOD GAS BASE EXCESS 0.1 mmol/L (-2-2); BLOOD GAS HCO3 25 mmol/L (22-26); BLOOD GAS METHEMOGLOBIN 1.4 % (0-2); BLOOD GAS O2 HGB SATURATION 95 % (90-100); BLOOD GAS OXYGEN CONTENT 15.4 Vol % (12.0-20.0); BLOOD GAS PCO2 44 mmHg (38-42); BLOOD GAS PO2 118 mmHg (61-120); BLOOD GAS TOTAL HGB 11.4 G/DL (12.0-16.0); CRITICAL VALUE NO; DRAW SITE LT RADIAL; LITER FLOW 4 L/M; NUMBER OF ARTERIAL PUNCTURES 2; OXYGEN DEVICE NASAL CANNULA; STAT YES; TEMP CORR TO 98.6; ULNAR PULSE PRESENT
--- NOTE | 2016-08-28 12:29 | RADRPT ---
EXAM DATE/TIME: 08/28/2016 11:52 [facility] COMPARISON: CT BRAIN W/O CONTRAST, January 02, 2014, 22:26. INDICATIONS : Altered mental status today. RADIATION DOSE: 56.35 CTDIvol (mGy) MEDICAL HISTORY : Cardiovascular disease. Stroke Seizures. SURGICAL HISTORY : cardiac stent placement ENCOUNTER: Initial ACUITY: 1 day PAIN SCALE: 0/10 LOCATION: Bilateral head TECHNIQUE: Multiple contiguous axial images were obtained of the head. Using automated exposure control and adj ustment of the mA and/or kV according to patient size, radiation dose was kept as low as reasonably a chievable to obtain optimal diagnostic quality images. DICOM format image data is available electro nically for review and comparison. FINDINGS: There is no evidence for intracranial hemorrhage, mass effect, mass lesions, or edema. The visualize d bony structures appear intact. Slight degree of brain atrophy is seen. Slight periventricular whit e matter changes are seen nonspecific mostly consistent with chronic small vessel ischemic changes. There are no signs of acute infarction for technique. CONCLUSION: Slight atrophic and small vessel ischemic changes without any evidence for acute hemorrhage or mass effect. Evin Son MD on August 28, 2016 at 12:26 Board Certified Radiologist. This report was verified electronically.
[2016-08-28] MEDS: FUROSEMIDE 40 MG/4 ML VIAL IV PUSH SCH (17:59)
[2016-08-28] MEDS ORDERED: DOCUSATE SODIUM 100 MG CAP PO SCH (21:00)
[2016-08-28] MEDS ORDERED: SENNOSIDES 8.6 MG TAB PO SCH (21:00)
[2016-08-28] MEDS: SENNOSIDES 8.6 MG TAB PO SCH (21:00)
[2016-08-28] MEDS ORDERED: HALOPERIDOL LACTATE 5 MG/ML AMP IM SCH (22:00)
--- NOTE | 2016-08-28 22:50 | MB ---
cc: LIAN PRAJAPATI MD DATE OF CONSULTATION 08/28/16 REASON FOR CONSULTATION Altered mental status/TIA. HISTORY OF PRESENT ILLNESS Mr. Hartley is a 75-year-old male who was admitted to the hospital on 08/24/2016 who presented with chest pain. He has history of colon cancer, bladder cancer, AAA, chest aortic aneurysm, a-fib, status post ablation. He underwent cardiac cath which showed severe three-vessel disease. He developed hemoptysis on 08/26. He underwent CABG on 08/26. Followed up in the ICU, extubated on 08/27. They found him sleepy with left arm weakness. Speech was clear at that time. He was on aspirin, low dose of beta blockers and no statin because of allergy. He was transferred today to the fourth floor and the patient was witnessed by the nurse to be lethargic, confused and left upper weakness and he lost control of his bladder. During the encounter the patient was weak, not fully oriented and weak on the left upper extremity. REVIEW OF SYSTEMS 12-point review of systems is negative except for what is stated in the HPI. PAST MEDICAL HISTORY Hypertension, hyperlipidemia, colon cancer status post resection, AAA status post repair, aortic aneurysm, pacemaker status post removal due to infection, atrial fibrillation status post ablation, atrial thrombosis, bladder cancer status post treatment. PAST SURGICAL HISTORY Resection of colon cancer, repair of AAA, pacemaker for a-fib, pacemaker removal. ALLERGIES LIPITOR. SIMVASTATIN. FAMILY HISTORY Coronary artery disease. SOCIAL HISTORY Occasionally drinks alcohol. No smoking or illicit drug abuse. PHYSICAL EXAMINATION GENERAL: Awake, aware, in mild distress. HEENT: Atraumatic, normocephalic. Intact hearing. Intact vision. NECK: Supple. No carotid bruit. CARDIOVASCULAR: Regular rate and rhythm. RESPIRATORY: Clear to auscultation. No wheezes. GASTROINTESTINAL: Soft abdomen, not distended. EXTREMITIES: Ecchymosis right upper and lower extremities. Mild ankle swelling. NEUROLOGICAL: Awake, alert, oriented to person, not to place or time. Intact reading, intact comprehension and dysarthria. Left visual field neglect. Left upper extremity flaccid type, grade 5- minus left shoulder abduction and elbow extension, grade 4+ left wrist extension and finger flexion left 5-, left hip extension, and foot dorsiflexion. Right upper and lower extremity normal muscle strength and tone. Sensation is intact throughout. [id number] is slower on the left side, intact on the right side. Reflexes 1+ bilateral, symmetrical. Plantars bilaterally downgoing. DIAGNOSTIC IMPRESSION 1. Acute/subacute ischemic stroke in the right hemisphere. 2. ANNY. 3. Encephalopathy. 4. Non-STEMI. PLAN 1. Neuro checks q. one hourly. 2. MRI brain without contrast, if there is no contraindication. 3. Aspirin 81 milligrams. 4. EEG. 5. DVT prophylaxis, SCDs. 6. Speech and swallow evaluation, recommendations are appreciated. 7. PT and OT recommendations are appreciated. 8. DVT prophylaxis, GI prophylaxis. Thank you for the opportunity to participate in the care of your patient. Lian Prajapati MD RGO/NANCY /10:08 PM /10:26 PM BRYAN
[2016-08-29] VITALS (24 sets, daily range): BP systolic 108–144; BP diastolic 72–96; PULSE 96–116; RESP 16–20; TEMP 97.1–98.7; O2SAT 94–99
[2016-08-29] MEDS: INSULIN ASPART SUPPLEMENTAL SCALE SQ SCH ×5 (02:00→22:31)
[2016-08-29] MEDS: PANTOPRAZOLE SOD 40 MG DELAYED RELEASE TAB PO SCH (06:00)
[2016-08-29 06:13] LABS: AUTOMATED NEUTROPHIL # 7.2 TH/MM3 (1.8-7.7); BASOPHIL # 0.1 TH/MM3 (0-0.2); BASOPHIL % 0.6 % (0.0-2.0); EOSINOPHIL # 0.3 TH/MM3 (0-0.4); EOSINOPHIL % 2.9 % (0.0-4.0); HEMATOCRIT 30.2 % (39.0-51.0); HEMO FLAGS DIFF FINAL; LYMPHOCYTE # 1.2 TH/MM3 (1.0-4.8); MEAN CELL VOLUME 95.1 FL (80.0-100.0); MEAN CORPUSCULAR HEMOGLOBIN 32.2 PG (27.0-34.0); MEAN CORPUSCULAR HGB CONC 33.8 % (32.0-36.0); MONO % 12.3 % (0.0-8.0); NEUT % 72.2 % (16.0-70.0); PLATELET COUNT 140 TH/MM3 (150-450); RED BLOOD COUNT 3.18 MIL/MM3 (4.50-5.90); RED CELL DISTRIBUTION WIDTH 14.3 % (11.6-17.2); WHITE BLOOD COUNT 9.9 TH/MM3 (4.0-11.0)
[2016-08-29 06:44] LABS: BICARBONATE 29.6 MEQ/L (21.0-32.0); POTASSIUM 4.3 MEQ/L (3.5-5.1)
[2016-08-29] MEDS: RESP: ALBUTEROL 2.5 MG/IPRATROPIUM 0.5 MG NEB (SCH) NEB (07:03)
[2016-08-29] MEDS: ASPIRIN 81 MG CHEW TAB PO SCH (08:28)
[2016-08-29] MEDS: MULTIVITAMINS/MINERALS THERAPEUTIC TAB PO SCH (08:28)
[2016-08-29] MEDS: FUROSEMIDE 40 MG/4 ML VIAL IV PUSH SCH ×2 (08:28→18:44)
[2016-08-29] MEDS: SODIUM CHLORIDE 0.9% FLUSH 10 ML FLUSH IV FLUSH SCH ×2 (08:28→22:23)
[2016-08-29] MEDS: SODIUM CHLOR 0.9% 1000 ML INJ 1,000 ML IV SCH (08:28)
[2016-08-29] MEDS: POLYETHYLENE GLYCOL 17 GM PKG PO SCH (08:28)
[2016-08-29] MEDS: MAGNESIUM HYDROXIDE SUSP 30 ML CUP PO SCH (08:29)
[2016-08-29] MEDS: DOCUSATE SODIUM 100 MG CAP PO SCH ×2 (08:29→22:19)
[2016-08-29] MEDS: METOPROLOL TARTRATE 25 MG TAB PO SCH ×2 (08:31→22:19)
[2016-08-29] MEDS ORDERED: POLYETHYLENE GLYCOL 17 GM PKG PO SCH (09:00)
--- NOTE | 2016-08-29 12:17 | PD.CAR.PN ---
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 He underwent cardiac cath which shoed severe 3 vessel disease including Left main disease 60-80%. EF50% mild MR, CTA also showed 2 small 2-3 mm lung nodule right upper lobe, pulm HTN, moderate left hydronephrosis CT Abdomen and pelvis pending PMH: HTN, HLP, colon and bladder CA, Afib/ post ablation, CAD/ME, carotid stenossi ( carotid endarectomy , hx of thoracic and abdominal aneurysms 08/26 pt developed hemopytis this am , while on heparin , INR 1.3, heparin stopped sputum pending, appreciated pulm input will still plan for surgery in am, first case / Dr Zamora discussed with anesthesia 08/26/16 19:31 Patient with refractory angina despite IV NTG, BB, heparin. Increased dyspnea and worsening hypoxia as well. He is also oliguric with increasing creatinine and had hemoptysis earlier. He appears to have a left ureteral obstruction as well. His risk of surgery is high, but the risk of not intervening is higher. I discussed this with him and his and he agrees to proceed as an emergency tonight. 08/26 surgery: Emergency pump assisted beating heart CABG x 3, LINK to LAD - good , SVG to PDA - good, SVG to OM - fair, NEYMAR, EVH 2500cc crystalloid, 1150cc cell saver, 800cc urine 08/27 extubated early this am, still sleepy has some left arm weakness, speech clear but slow no pressors, weaned off insulin gtt gentle diuresis / monitor renal indices on ASA, low dose BB , no statin due to allergy will leave in CVICU today, PT/ OT 08/28/16 Lethargic, but better than yesterday. No complaints 08/29/16 Intermittent confusion which improves with family nearby Improving, but somewhat lethargic Objective: Vital Signs Date Time Temp Pulse Resp B/P Pulse Ox O2 Delivery O2 Flow Rate FiO2 08/29/16 07:06 94 Nasal Cannula 2.00 08/29/16 06:04 98.7 107 20 134/77 99 08/29/16 03:10 95 Nasal Cannula 4.00 08/29/16 03:00 108 08/29/16 01:48 94 Nasal Cannula 4.00 08/29/16 00:34 98.0 108 20 123/77 98 08/28/16 23:00 108 08/28/16 21:01 97 Nasal Cannula 4.00 08/28/16 19:38 96 Nasal Cannula 4.00 08/28/16 19:07 98.8 118 20 121/74 96 08/28/16 19:00 108 08/28/16 15:00 97.8 110 18 133/80 98 08/28/16 15:00 97 Nasal Cannula 4.00 08/28/16 15:00 108 Labs: Laboratory Tests Test 08/29/16 05:45 White Blood Count 9.9 TH/MM3 (4.0-11.0) Red Blood Count 3.18 MIL/MM3 (4.50-5.90) Hemoglobin 10.2 GM/DL (13.0-17.0) Hematocrit 30.2 % (39.0-51.0) Mean Corpuscular Volume 95.1 FL (80.0-100.0) Mean Corpuscular Hemoglobin 32.2 PG (27.0-34.0) Mean Corpuscular Hemoglobin 33.8 % Concent (32.0-36.0) Red Cell Distribution Width 14.3 % (11.6-17.2) Platelet Count 140 TH/MM3 (150-450) Mean Platelet Volume 8.8 FL (7.0-11.0) Neutrophils (%) (Auto) 72.2 % (16.0-70.0) Lymphocytes (%) (Auto) 12.0 % (9.0-44.0) Monocytes (%) (Auto) 12.3 % (0.0-8.0) Eosinophils (%) (Auto) 2.9 % (0.0-4.0) Basophils (%) (Auto) 0.6 % (0.0-2.0) Neutrophils # (Auto) 7.2 TH/MM3 (1.8-7.7) Lymphocytes # (Auto) 1.2 TH/MM3 (1.0-4.8) Monocytes # (Auto) 1.2 TH/MM3 (0-0.9) Eosinophils # (Auto) 0.3 TH/MM3 (0-0.4) Basophils # (Auto) 0.1 TH/MM3 (0-0.2) CBC Comment DIFF FINAL Differential Comment Sodium Level 134 MEQ/L (136-145) Potassium Level 4.3 MEQ/L (3.5-5.1) Chloride Level 96 MEQ/L (98-107) Carbon Dioxide Level 29.6 MEQ/L (21.0-32.0) Anion Gap 8 MEQ/L (5-15) Blood Urea Nitrogen 35 MG/DL (7-18) Creatinine 1.53 MG/DL (0.60-1.30) Estimat Glomerular Filtration 44 ML/MIN (>89) Rate Random Glucose 105 MG/DL (74-106) Calcium Level 8.4 MG/DL (8.5-10.1) Magnesium Level 2.0 MG/DL (1.5-2.5) Result Diagram: 08/29/16 0545 08/29/1645 Cardiovascular: RRR Telemetry: NSR Pulmonary: CTA GI/: NABS, NT Incision: dry and intact CT: 60ml/12 hrs Plan: D/C chest tubes Hold narcotics diurese BB, ASA Allergic to statins PT/OT - will likely need inpatient rehab (1) NSTEMI (non-ST elevated myocardial infarction) Plan: for surgery in am (2) S/P CABG x 3 Plan: ASA, low dose BB no statin 2/2 allergy nebs, wean 02 as tolerated, gentle diuresis PT/OT may need rehab at discharge (3) ANNY (acute kidney injury) (4) CKD (chronic kidney disease), stage III Plan: creatinine 1.60 (5) Hydroureteronephrosis Plan: will need renal eval (6) Hemoptysis Plan: improved , appreciate Pulm input (7) Thoracic aortic aneurysm without rupture Plan: outpt f/u with Dr Marx (8) History of CVA (cerebrovascular accident) Plan: now with postop left arm weakness, PT/OT may need rehab also may need CT Brain Cece Zamora MD Aug 29, 2016 12:17
--- NOTE | 2016-08-29 17:07 | RADRPT ---
EXAM DATE/TIME: 08/29/2016 16:39 [facility] COMPARISON: CT BRAIN W/O CONTRAST, August 28, 2016, 11:52. INDICATIONS : Left sided weakness. MEDICAL HISTORY : Hypertension. Carcinoma, colon. Carcinoma, bladder. SURGICAL HISTORY : Coronary artery stent. CABG ENCOUNTER: Initial ACUITY: 1 day PAIN SCORE: 0/10 LOCATION: cranial TECHNIQUE: Multiplanar, multisequence MRI of the brain was performed without contrast. FINDINGS: CEREBRUM: Multifocal small areas of high flair abnormality are seen including a few scattered in the frontal, p arietal, temporal, occipital and cerebellar hemispheres. Right basal ganglia lacunar infarct. The luis tricles are normal for age. No evidence of midline shift, mass lesion or hemorrhage. No extraaxial fluid collections are seen. The pituitary gland and suprasellar cistern are normal in configuration. WHITE MATTER: Scattered T2 bright significant signal abnormalities are seen in the white matter and in the brainste m. POSTERIOR FOSSA: The 4th ventricle is midline. The cerebellopontine angle is unremarkable. The cerebellar tonsils are normal in position. DIFFUSION IMAGING: Multifocal areas of restricted diffusion are seen consistent with multifocal acute infarction. EXTRACRANIAL: The visualized portions of the orbits and paranasal sinuses are unremarkable. CONCLUSION: 1. Multifocal bilateral acute infarcts, suspect embolic etiology. 2. No midline shift or mass effect. Jacob Trujillo MD on August 29, 2016 at 17:01 Board Certified Radiologist. This report was verified electronically.
[2016-08-29] MEDS: SENNOSIDES 8.6 MG TAB PO SCH (22:19)
[2016-08-30] VITALS (17 sets, daily range): BP systolic 119–145; BP diastolic 72–92; PULSE 96–121; RESP 18–20; TEMP 98.3–98.6; O2SAT 92–98
--- NOTE | 2016-08-30 00:17 | HHI.PR ---
Review/Management Diagnosis - Acute ischemic stroke in the b/l hemispheres. - ANNY. - Encephalopathy. - Non-STEMI. Plan 1. Neuro checks q. one hourly. 2. Given the b/l involvement, the likely etiology is embolic in nature thus anti -coagulation is warranted 3. DVT prophylaxis, SCDs. 4. Speech and swallow evaluation, recommendations are appreciated. 5. PT and OT recommendations are appreciated. 6. DVT prophylaxis 7. GI prophylaxis. Diagnosis/Plan: Subjective Subjective Comments Patient sits on a chair at bed side MRI brain revealed acute ischemic infarction, likely embolic in etiology Patient denies headache, speech difficulty or new weakness Active Medications Current Medications Medications (Trade) Dose Ordered Sig/Awilda Route Start Time Stop Time Status Last Admin Sodium Chloride 1,000 ml @ 30 mls/hr Q24H IV 08/25/16 08:31 08/30/16 08:30 (NS 1000 ml Inj) 1,000 ml @ 0 mls/hr Q0M IV 08/25/16 10:21 (NS Flush) 2 ml BID IV FLUSH 08/27/16 09:00 08/29/16 22:23 (NS Flush) 2 ml UNSCH PRN IV FLUSH 08/27/16 00:00 08/29/16 18:44 (Aspirin Chew) 81 mg DAILY PO 08/27/16 09:00 08/29/16 08:28 (Protonix) 40 mg DAILY@06 PO 08/27/16 06:00 08/28/16 05:33 (Tylenol) 650 mg Q4H PRN PO 08/27/16 00:00 (Zofran Inj) 4 mg Q6H PRN IV PUSH 08/27/16 00:00 08/27/16 14:55 (Apresoline Inj) 10 mg Q4H PRN IV 08/27/16 00:00 (Colace) 100 mg BID PO 08/27/16 21:00 08/29/16 22:19 (Theragran M Tab) 1 tab DAILY PO 08/28/16 09:00 08/29/16 08:28 (Milk Of Magnesia Liq) 30 ml DAILY PO 08/28/16 09:00 08/29/16 08:29 (Miralax) 17 gm DAILY PO 08/28/16 09:00 08/29/16 08:28 (Senokot) 8.6 mg HS PO 08/27/16 21:00 08/29/16 22:19 (Fleets Enema (Adult)) 133 ml UNSCH PRN RECTAL 08/27/16 09:30 (Lopressor) 12.5 mg BID PO 08/27/16 09:30 08/29/16 22:19 (Pill Splitter) 1 ea UNSCH PRN OTHER 08/27/16 09:45 (D50w (Vial) Inj) 50 ml UNSCH PRN IV 08/28/16 08:30 (Glucagon Inj) 1 mg UNSCH PRN OTHER 08/28/16 08:30 (Lasix Inj) 40 mg BID@09,18 IV PUSH 08/28/16 18:00 08/29/16 18:44 (NovoLOG SUPPLEMENTAL SCALE) 1 ACHS SQ 08/29/16 16:00 08/29/16 22:31 Allergies Allergies Coded Allergies HMG-CoA Reductase Inhibitors (Verified Allergy, Severe, 08/25/16) Lipitor (Verified Allergy, Severe, back pain and chest pain, 08/24/16) Simvastatin (Unverified Allergy, Severe, body aches, 08/24/16) Review of Systems All other ROS: ROS reviewed as documented in chart Exam I&O / VS 08/29/16 08/29/16 08/30/16 15:00 23:00 07:00 Intake Total 720 ml Output Total 1025 ml Balance -305 ml Intake Oral 720 ml Output Urine Total 1025 ml # Voids 3 # Bowel Movements 0 Vital Signs Date Time Temp Pulse Resp B/P Pulse Ox O2 Delivery O2 Flow Rate FiO2 08/29/16 19:00 98.5 115 20 129/78 97 08/29/16 19:00 97 Nasal Cannula 2.00 08/29/16 18:37 94 Nasal Cannula 2.00 08/29/16 18:00 114 08/29/16 17:35 94 Nasal Cannula 2.00 08/29/16 17:30 84 Room Air 08/29/16 17:00 104 08/29/16 16:00 98.0 106 16 137/80 97 08/29/16 16:00 108 08/29/16 16:00 97 2.00 08/29/16 15:00 104 08/29/16 14:00 104 08/29/16 13:00 104 08/29/16 12:00 102 08/29/16 11:20 96 Nasal Cannula 2.00 08/29/16 11:20 98.1 100 16 108/72 96 08/29/16 11:00 96 08/29/16 10:00 108 08/29/16 09:00 112 08/29/16 08:00 108 08/29/16 07:30 96 Nasal Cannula 4.00 08/29/16 07:30 97.1 108 19 139/96 96 08/29/16 07:06 94 Nasal Cannula 2.00 08/29/16 07:00 105 08/29/16 06:04 98.7 107 20 134/77 99 08/29/16 03:10 95 Nasal Cannula 4.00 08/29/16 03:00 108 08/29/16 01:48 94 Nasal Cannula 4.00 08/29/16 00:34 98.0 108 20 123/77 98 Exam Comments GENERAL: Awake, aware, alert, oriented to person, place and time HEENT: Atraumatic, normocephalic. Intact hearing. Intact vision. NECK: Supple. No carotid bruit. CARDIOVASCULAR: Regular rate and rhythm. RESPIRATORY: Clear to auscultation. No wheezes. GASTROINTESTINAL: Soft abdomen, not distended. EXTREMITIES: Ecchymosis right upper and lower extremities. Mild ankle swelling. NEUROLOGICAL: Awake, alert, oriented to person, place and time. Intact reading, intact comprehension, subtle dysarthria. Left visual field neglect. Left upper extremity flaccid type, grade 5- left shoulder abduction and elbow extension, grade 4+ left wrist extension and finger flexion left 5-, left hip extension, and foot dorsiflexion. Right upper and lower extremity normal muscle strength and tone. Sensation is intact throughout. [id number] is slower on the left side, intact on the right side. Reflexes 1+ bilateral, symmetrical. Plantars bilaterally downgoing. Objective Radiology Results Last 72 hours Impressions Brain MRI 08/29/16 0000 Signed Impressions: Service Date/Time: Monday, August 29, 2016 16:39 - CONCLUSION: 1. Multifocal bilateral acute infarcts, suspect embolic etiology. 2. No midline shift or mass effect. Jacob Trujillo MD Chest X-Ray 08/28/16 0600 Signed Impressions: Service Date/Time: Sunday, August 28, 2016 03:55 - CONCLUSION: Interval extubation. Otherwise stable chest. Jarad De Jesus MD Head CT 08/28/16 0000 Signed Impressions: Service Date/Time: Sunday, August 28, 2016 11:52 - CONCLUSION: Slight atrophic and small vessel ischemic changes without any evidence for acute hemorrhage or mass effect. Evin Son MD Chest X-Ray 08/27/16 0500 Signed Impressions: Service Date/Time: Saturday, August 27, 2016 04:20 - CONCLUSION: 1. Patchy alveolar disease characteristic of edema or pneumonia. The findings are improved when compared with the prior exam. Reymundo Sampson MD Micro and Labs Laboratory Tests Test 08/29/16 05:45 White Blood Count 9.9 Red Blood Count 3.18 Hemoglobin 10.2 Hematocrit 30.2 Mean Corpuscular Volume 95.1 Mean Corpuscular Hemoglobin 32.2 Mean Corpuscular Hemoglobin 33.8 Concent Red Cell Distribution Width 14.3 Platelet Count 140 Mean Platelet Volume 8.8 Neutrophils (%) (Auto) 72.2 Lymphocytes (%) (Auto) 12.0 Monocytes (%) (Auto) 12.3 Eosinophils (%) (Auto) 2.9 Basophils (%) (Auto) 0.6 Neutrophils # (Auto) 7.2 Lymphocytes # (Auto) 1.2 Monocytes # (Auto) 1.2 Eosinophils # (Auto) 0.3 Basophils # (Auto) 0.1 CBC Comment DIFF FINAL Differential Comment Sodium Level 134 Potassium Level 4.3 Chloride Level 96 Carbon Dioxide Level 29.6 Anion Gap 8 Blood Urea Nitrogen 35 Creatinine 1.53 Estimat Glomerular Filtration 44 Rate Random Glucose 105 Calcium Level 8.4 Magnesium Level 2.0 Date/Time Procedure Status Source Growth 08/26/16 08:52 Gram Stain - Final Complete Sputum Expectorated Sputum 08/26/16 08:52 Sputum Culture - Final Complete Sputum Expectorated Sputum HEAVY GROWTH NORMAL RESPIRATORY MEL Lian Prajapati MD Aug 30, 2016 00:17
[2016-08-30] MEDS: PANTOPRAZOLE SOD 40 MG DELAYED RELEASE TAB PO SCH (05:54)
--- NOTE | 2016-08-30 05:56 | MG ---
cc: JEREMY PRAJAPATI Lab No: Date: 08/29/2016 Age: 75 Sex: M Race: DATE OF [address] Prajapati. MEDICAL HISTORY 1. Hypertension. 2. Hyperlipidemia. 3. Colon and bladder cancer. 4. AAA repair. 5. Atrial fibrillation, status removal of pacemaker. 6. Altered mental status. 7. Stroke. MEDICATIONS 1. Lasix. 1. Milk of Magnesia. 2. Lopressor. 3. Aspirin. DESCRIPTION The background activity is a 8-9 Hz, alpha, located posteriorly superimposed by excessive theta activity. During the recording the patient transitioned to sleep state with drop out of the background rhythm replaced by theta activity and appearance of K-complexes. There is excessive muscle artifact. Hyperventilation was not performed. Photic stimulation did not elicit a driving response. There were no electrographic seizures or epileptiform discharges noted. INTERPRETATION This is an awake and sleep EEG. Beta activity may be related to medication effects like benzos or barbiturates. Absence of electrographic seizures or epileptiform discharges does not rule out the diagnosis of seizure disorder. Clinical correlation is recommended. MD ELADIA Nova/SUSAN /12:09 AM /5:47 AM MTDD
[2016-08-30] MEDS: INSULIN ASPART SUPPLEMENTAL SCALE SQ SCH ×2 (05:58→11:00)
[2016-08-30 06:24] LABS: HEMATOCRIT 31.1 % (39.0-51.0); MEAN CELL VOLUME 94.4 FL (80.0-100.0); MEAN CORPUSCULAR HEMOGLOBIN 32.2 PG (27.0-34.0); MEAN CORPUSCULAR HGB CONC 34.1 % (32.0-36.0); PLATELET COUNT 174 TH/MM3 (150-450); REVIEW FLAG FINAL; WHITE BLOOD COUNT 9.6 TH/MM3 (4.0-11.0)
[2016-08-30] MEDS: POLYETHYLENE GLYCOL 17 GM PKG PO SCH (09:15)
[2016-08-30] MEDS: METOPROLOL TARTRATE 25 MG TAB PO SCH (09:16)
[2016-08-30] MEDS: DOCUSATE SODIUM 100 MG CAP PO SCH (09:16)
[2016-08-30] MEDS: ASPIRIN 81 MG CHEW TAB PO SCH (09:16)
[2016-08-30] MEDS: FUROSEMIDE 40 MG/4 ML VIAL IV PUSH SCH (09:16)
[2016-08-30] MEDS: MULTIVITAMINS/MINERALS THERAPEUTIC TAB PO SCH (09:16)
[2016-08-30] MEDS: SODIUM CHLORIDE 0.9% FLUSH 10 ML FLUSH IV FLUSH SCH (09:16)
[2016-08-30] MEDS: MAGNESIUM HYDROXIDE SUSP 30 ML CUP PO SCH (09:16)
--- NOTE | 2016-08-30 09:49 | PD.VS.PN ---
Subjective Subjective/Hospital Course Pt sitting in chair this am w/o complaints Objective Vitals/I&O Date Time Temp Pulse Resp B/P Pulse Ox O2 Delivery O2 Flow Rate FiO2 08/30/16 09:24 111 08/30/16 08:26 98.3 113 18 142/92 98 08/30/16 08:26 98 Nasal Cannula 2.00 08/30/16 08:26 113 08/30/16 07:42 93 21 08/30/16 06:00 108 08/30/16 05:00 109 08/30/16 04:00 113 08/30/16 03:00 92 Room Air 08/30/16 03:00 98.5 105 20 145/84 92 08/30/16 03:00 106 08/30/16 02:00 96 08/30/16 01:00 100 08/30/16 00:00 100 08/29/16 23:00 96 Nasal Cannula 2.00 08/29/16 23:00 98.5 97 20 144/92 96 08/29/16 23:00 106 08/29/16 22:00 112 08/29/16 21:00 114 08/29/16 20:00 114 08/29/16 19:00 98.5 115 20 129/78 97 08/29/16 19:00 97 Nasal Cannula 2.00 08/29/16 19:00 116 08/29/16 18:37 94 Nasal Cannula 2.00 08/29/16 18:00 114 08/29/16 17:35 94 Nasal Cannula 2.00 08/29/16 17:30 84 Room Air 08/29/16 17:00 104 08/29/16 16:00 98.0 106 16 137/80 97 08/29/16 16:00 108 08/29/16 16:00 97 2.00 08/29/16 15:00 104 08/29/16 14:00 104 08/29/16 13:00 104 08/29/16 12:00 102 08/29/16 11:20 96 Nasal Cannula 2.00 08/29/16 11:20 98.1 100 16 108/72 96 08/29/16 11:00 96 08/29/16 10:00 108 08/30/16 08/30/16 08/30/16 07:00 15:00 23:00 Intake Total 240 ml Output Total 725 ml Balance -485 ml Physical Exam GENERAL: Alert in NAD SKIN: Warm and dry GASTROINTESTINAL: S/NT - Abdominal pain - Back pain Laboratory Laboratory Tests Test 08/30/16 06:00 White Blood Count 9.6 Red Blood Count 3.30 Hemoglobin 10.6 Hematocrit 31.1 Mean Corpuscular Volume 94.4 Mean Corpuscular Hemoglobin 32.2 Mean Corpuscular Hemoglobin 34.1 Concent Red Cell Distribution Width 14.0 Platelet Count 174 Mean Platelet Volume 8.1 Date/Time Procedure Status Source Growth 08/26/16 08:52 Gram Stain - Final Complete Sputum Expectorated Sputum 08/26/16 08:52 Sputum Culture - Final Complete Sputum Expectorated Sputum HEAVY GROWTH NORMAL RESPIRATORY MEL Imaging Last 48 hours Impressions Brain MRI 08/29/16 0000 Signed Impressions: Service Date/Time: Tuesday, August 29, 2016 16:39 - CONCLUSION: 1. Multifocal bilateral acute infarcts, suspect embolic etiology. 2. No midline shift or mass effect. Jacob Trujillo MD Assessment and Plan Assessment: (1) Thoracic aortic aneurysm without rupture Status: Acute Plan Pt is s/p CABG X 3 with a hx of thoracic aortic aneurysm w/o rupture, pt is healing well and is asymptomatic Pt is not a surgical candidate at this time. Plan Pt will f/u in our out patient clinic Appointment time and date was given to patient Ary Scott DELGADO [email or web address] [phone] Ary Chavez Aug 30, 2016 09:49
--- NOTE | 2016-08-30 12:25 | RSPPFT ---
DATE OF PROCEDURE: 08/25/16 COMMENTS: Spirometry with FVC of 2.2 predicted 4.5, FEV1 at 2.0 predicted 3.2, FEV1/FVC ratio 88% predicted 72%. IMPRESSION: On the basis of the above, patient has a predominantly restrictive lung defect and, if clinically indicated, lung volumes may be helpful for further information.
--- NOTE | 2016-08-30 13:57 | HHI.FF ---
Face to Face Verification Diagnosis: (1) S/P CABG x 3 (2) Thoracic aortic aneurysm without rupture (3) History of CVA (cerebrovascular accident) Physical Therapy Order: Evaluate and Treat Occupational Therapy Order: Evaluate and Treat Speech Therapy Order: To Improve: Cognitive skills Home Health Nursing Order: Medical education Medication education-adverse effect Nursing assessment with vital signs I have seen patient Jarad Hartley on 08/30/16. My clinical findings support the need for the requested home health care services because: Ltd mobility - disease progression Deconditioned w/ increased weakness High risk of falls I certify that my clinical findings support that this patient is homebound because: Post-op weakness Impaired cognitive ability/safety Unsteady gait/balance Cece Zamora MD Aug 30, 2016 13:57
[2016-08-30] MEDS ORDERED: APIXABAN 2.5 MG TABLET PO SCH (14:00)
[2016-08-30] MEDS ORDERED: PANT40TA3 PO (14:01)
[2016-08-30] MEDS ORDERED: DOCU1CAP39 PO (14:01)
[2016-08-30] MEDS ORDERED: THERM PO (14:01)
[2016-08-30] MEDS ORDERED: APIX2.5T PO (14:01)
[2016-08-30] MEDS ORDERED: METO25TA3 PO (14:01)
[2016-08-30] MEDS ORDERED: BISACODYL 10 MG SUPP RECTAL PRN (15:00)
[2016-08-30] MEDS ORDERED: ASPI81CH CHEW (15:05)
--- NOTE | 2016-08-30 15:07 | PD.CARD.PN ---
Subjective Subjective Remarks No CP or SOB, weakness significantly improved Objective Medications Current Medications Medications (Trade) Dose Ordered Sig/Awilda Route Start Time Stop Time Status Last Admin (NS 1000 ml Inj) 1,000 ml @ 0 mls/hr Q0M IV 08/25/16 10:21 (NS Flush) 2 ml BID IV FLUSH 08/27/16 09:00 08/30/16 09:16 (NS Flush) 2 ml UNSCH PRN IV FLUSH 08/27/16 00:00 08/29/16 18:44 (Aspirin Chew) 81 mg DAILY PO 08/27/16 09:00 08/30/16 09:16 (Protonix) 40 mg DAILY@06 PO 08/27/16 06:00 08/30/16 05:54 (Tylenol) 650 mg Q4H PRN PO 08/27/16 00:00 (Zofran Inj) 4 mg Q6H PRN IV PUSH 08/27/16 00:00 08/27/16 14:55 (Apresoline Inj) 10 mg Q4H PRN IV 08/27/16 00:00 (Colace) 100 mg BID PO 08/27/16 21:00 08/30/16 09:16 (Theragran M Tab) 1 tab DAILY PO 08/28/16 09:00 08/30/16 09:16 (Milk Of Magnesia Liq) 30 ml DAILY PO 08/28/16 09:00 08/30/16 09:16 (Miralax) 17 gm DAILY PO 08/28/16 09:00 08/30/16 09:15 (Senokot) 8.6 mg HS PO 08/27/16 21:00 08/29/16 22:19 (Fleets Enema (Adult)) 133 ml UNSCH PRN RECTAL 08/27/16 09:30 (Lopressor) 12.5 mg BID PO 08/27/16 09:30 08/30/16 09:16 (Pill Splitter) 1 ea UNSCH PRN OTHER 08/27/16 09:45 (D50w (Vial) Inj) 50 ml UNSCH PRN IV 08/28/16 08:30 (Glucagon Inj) 1 mg UNSCH PRN OTHER 08/28/16 08:30 (Lasix Inj) 40 mg BID@,18 IV PUSH 08/28/16 18:00 08/30/16 09:16 (NovoLOG SUPPLEMENTAL SCALE) 1 ACHS SQ 08/29/16 16:00 08/29/16 22:31 (Eliquis) 2.5 mg BID PO 08/30/16 14:00 08/30/16 14:39 (Dulcolax Supp) 10 mg DAILY PRN RECTAL 08/30/16 15:00 08/30/16 14:41 Vital Signs / I&O Vital Signs Date Time Temp Pulse Resp B/P Pulse Ox O2 Delivery O2 Flow Rate FiO2 08/30/16 14:04 109 08/30/16 13:23 107 08/30/16 12:20 110 08/30/16 11:34 95 Room Air 08/30/16 11:34 98.4 100 18 119/72 95 08/30/16 11:34 97 08/30/16 10:01 121 08/30/16 09:24 111 08/30/16 08:26 98.3 113 18 142/92 98 08/30/16 08:26 98 Nasal Cannula 2.00 08/30/16 08:26 113 08/30/16 07:42 93 21 08/30/16 06:00 108 08/30/16 05:00 109 08/30/16 04:00 113 08/30/16 03:00 92 Room Air 08/30/16 03:00 98.5 105 20 145/84 92 08/30/16 03:00 106 08/30/16 02:00 96 08/30/16 01:00 100 08/30/16 00:00 100 08/29/16 23:00 96 Nasal Cannula 2.00 08/29/16 23:00 98.5 97 20 144/92 96 08/29/16 23:00 106 08/29/16 22:00 112 08/29/16 21:00 114 08/29/16 20:00 114 08/29/16 19:00 98.5 115 20 129/78 97 08/29/16 19:00 97 Nasal Cannula 2.00 08/29/16 19:00 116 08/29/16 18:37 94 Nasal Cannula 2.00 08/29/16 18:00 114 08/29/16 17:35 94 Nasal Cannula 2.00 08/29/16 17:30 84 Room Air 08/29/16 17:00 104 08/29/16 16:00 98.0 106 16 137/80 97 08/29/16 16:00 108 08/29/16 16:00 97 2.00 I/O 08/29/16 08/29/16 08/29/16 08/30/16 08/30/16 08/30/16 07:00 15:00 23:00 07:00 15:00 23:00 Intake Total 240 ml 720 ml 240 ml Output Total 400 ml 1025 ml 725 ml Balance -160 ml -305 ml -485 ml Intake Oral 240 ml 720 ml 240 ml Output Urine Total 350 ml 1025 ml 725 ml Chest Tube Drainage Total 50 ml # Voids 2 3 # Bowel Movements 0 Physical Exam GENERAL: In NAD SKIN: Warm and dry. HEAD: Normocephalic. EYES: No scleral icterus. No injection or drainage. NECK: Supple, trachea midline. No JVD or lymphadenopathy. CARDIOVASCULAR: Regular rate and rhythm without murmurs, gallops, or rubs. Sternal wound stable. RESPIRATORY: Breath sounds equal bilaterally. No accessory muscle use. GASTROINTESTINAL: Abdomen soft, non-tender, nondistended. MUSCULOSKELETAL: No cyanosis, trace edema. Laboratory Laboratory Tests Test 08/30/16 06:00 White Blood Count 9.6 TH/MM3 Red Blood Count 3.30 MIL/MM3 Hemoglobin 10.6 GM/DL Hematocrit 31.1 % Mean Corpuscular Volume 94.4 FL Mean Corpuscular Hemoglobin 32.2 PG Mean Corpuscular Hemoglobin 34.1 % Concent Red Cell Distribution Width 14.0 % Platelet Count 174 TH/MM3 Mean Platelet Volume 8.1 FL Imaging Last Impressions Brain MRI 08/29/16 0000 Signed Impressions: Service Date/Time: Monday, August 29, 2016 16:39 - CONCLUSION: 1. Multifocal bilateral acute infarcts, suspect embolic etiology. 2. No midline shift or mass effect. Jacob Trujillo MD Chest X-Ray 08/28/16 0600 Signed Impressions: Service Date/Time: Sunday, August 28, 2016 03:55 - CONCLUSION: Interval extubation. Otherwise stable chest. Jarad De Jesus MD Head CT 08/28/16 0000 Signed Impressions: Service Date/Time: Sunday, August 28, 2016 11:52 - CONCLUSION: Slight atrophic and small vessel ischemic changes without any evidence for acute hemorrhage or mass effect. Evin Son MD Lower Extremity Ultrasound 08/25/16 0000 Signed Impressions: Service Date/Time: Thursday, August 25, 2016 18:34 - CONCLUSION: 1. Venous mapping as above. Interrogated vessels are patent. Ajay Prabhakar MD Carotid Artery Ultrasound 08/25/16 0000 Signed Impressions: Service Date/Time: Thursday, August 25, 2016 18:11 - CONCLUSION: 1. No evidence for hemodynamically significant stenosis. Moderate atherosclerotic plaquing of the left common carotid artery. Ajay Prabhakar MD Aorta CTA 08/24/16 0000 Signed Impressions: Service Date/Time: Wednesday, August 24, 2016 15:47 - CONCLUSION: 1. Fusiform thoracoabdominal aortic aneurysm containing mild to moderate neural fundus with measurements as above. Largest caliber of the thoracic aorta distally near the aortic hiatus measures 5.4 cm. Largest caliber of the abdominal aorta in the supraceliac portion measures 4.2 cm. Largest caliber of the infrarenal abdominal aorta measures 4.1 cm with moderate mural thrombus. 2. No evidence for aortic dissection or aneurysm rupture/leak. 3. Moderate left hydroureteronephrosis extending to the UVJ without a radiopaque renal calculi or discernible mass on CT. Patient does have a history of bladder CA. Therefore, this likely reflects UVJ involvement by new or previously treated tumor. Clinical correlation is recommended. 4. Slightly prominent main pulmonary artery may reflect some degree of pulmonary artery hypertension. 5. Two adjacent 2-3 mm nodules in the right upper lower lobe. Followup examination may be performed in 12 months per 2017 Fleischner criteria as indicated. 6. Moderate to severe coronary artery calcifications. Richardson Haney MD Assessment and Plan Problem List: (1) NSTEMI (non-ST elevated myocardial infarction) (2) S/P CABG x 3 (3) ANNY (acute kidney injury) (4) CKD (chronic kidney disease), stage III (5) Hydroureteronephrosis (6) Hemoptysis (7) Thoracic aortic aneurysm without rupture (8) History of CVA (cerebrovascular accident) Assessment and Plan Continue post CABG program. Continue Eliquis and baby ASA due to recent embolic stroke. OK to discharge from card standpoint. Will schedule f/u w Dr. Moran as outpatient next week. Michael Tompkins MD Aug 30, 2016 15:07
--- NOTE | 2016-08-30 17:26 | HHI.DS ---
Discharge Summary Admission Date Aug 24, 2016 at 14:10 Discharge Date: Aug 30, 2016 Admitting Diagnosis Chest pain, NSTEMI. (1) ACS (acute coronary syndrome) Diagnosis: Principal (2) NSTEMI (non-ST elevated myocardial infarction) Diagnosis: Principal (3) Unstable angina Diagnosis: Principal (4) Thoracic aortic aneurysm without rupture Diagnosis: Secondary (5) ANNY (acute kidney injury) Diagnosis: Secondary (6) CKD (chronic kidney disease), stage III Diagnosis: Secondary (7) Hemoptysis Diagnosis: Secondary (8) Hydroureteronephrosis Diagnosis: Secondary Procedures LHC - Dr. Moran Emergency CABG Brief History 75 y/o male presents with chest pain and dyspnea. He ruled in for a NSTEMI. He underwent LHC by Dr. Moran and was found to have left main and 3 vessel CAD. 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 He has a history of colon cancer bladder cancer AAA and chest aortic aneurysm A. fib status post ablation, Patient was given nitroglycerin got the pain improved 100%. in ED CBC/BMP: 08/30/16 0600 08/29/16 0545 Significant Findings Laboratory Tests Test 08/28/16 08/28/16 08/29/16 08/30/16 04:20 11:08 05:45 06:00 Red Blood Count 3.40 MIL/MM3 3.18 MIL/MM3 3.30 MIL/MM3 (4.50-5.90) (4.50-5.90) (4.50-5.90) Hemoglobin 10.9 GM/DL 10.2 GM/DL 10.6 GM/DL (13.0-17.0) (13.0-17.0) (13.0-17.0) Hematocrit 32.7 % 30.2 % 31.1 % (39.0-51.0) (39.0-51.0) (39.0-51.0) Platelet Count 119 TH/MM3 140 TH/MM3 (150-450) (150-450) Neutrophils (%) (Auto) 75.8 % 72.2 % (16.0-70.0) (16.0-70.0) Lymphocytes (%) (Auto) 8.8 % (9.0-44.0) Monocytes (%) (Auto) 11.5 % 12.3 % (0.0-8.0) (0.0-8.0) Neutrophils # (Auto) 8.1 TH/MM3 (1.8-7.7) Lymphocytes # (Auto) 0.9 TH/MM3 (1.0-4.8) Monocytes # (Auto) 1.2 TH/MM3 1.2 TH/MM3 (0-0.9) (0-0.9) Sodium Level 135 MEQ/L 134 MEQ/L (136-145) (136-145) Blood Urea Nitrogen 28 MG/DL (7-18) 35 MG/DL (7-18) Creatinine 1.59 MG/DL 1.53 MG/DL (0.60-1.30) (0.60-1.30) Estimat Glomerular Filtration 43 ML/MIN (>89) 44 ML/MIN (>89) Rate Random Glucose 124 MG/DL (74-106) Calcium Level 8.1 MG/DL 8.4 MG/DL (8.5-10.1) (8.5-10.1) Arterial Blood pH 7.37 (7.380-7.420) Arterial Blood Partial 44 mmHg (38-42) Pressure CO2 Blood Gas Hemoglobin 11.4 G/DL (12.0-16.0) Chloride Level 96 MEQ/L (98-107) Imaging Last Impressions Brain MRI 08/29/16 0000 Signed Impressions: Service Date/Time: Monday, August 29, 2016 16:39 - CONCLUSION: 1. Multifocal bilateral acute infarcts, suspect embolic etiology. 2. No midline shift or mass effect. Jacob Trujillo MD Chest X-Ray 08/28/16 0600 Signed Impressions: Service Date/Time: Sunday, August 28, 2016 03:55 - CONCLUSION: Interval extubation. Otherwise stable chest. Jarad De Jesus MD Head CT 08/28/16 0000 Signed Impressions: Service Date/Time: Sunday, August 28, 2016 11:52 - CONCLUSION: Slight atrophic and small vessel ischemic changes without any evidence for acute hemorrhage or mass effect. Evin Son MD Lower Extremity Ultrasound 08/25/16 0000 Signed Impressions: Service Date/Time: Thursday, August 25, 2016 18:34 - CONCLUSION: 1. Venous mapping as above. Interrogated vessels are patent. Ajay Prabhakar MD Carotid Artery Ultrasound 08/25/16 0000 Signed Impressions: Service Date/Time: Thursday, August 25, 2016 18:11 - CONCLUSION: 1. No evidence for hemodynamically significant stenosis. Moderate atherosclerotic plaquing of the left common carotid artery. Ajay Prabhakar MD Aorta CTA 08/24/16 0000 Signed Impressions: Service Date/Time: Wednesday, August 24, 2016 15:47 - CONCLUSION: 1. Fusiform thoracoabdominal aortic aneurysm containing mild to moderate neural fundus with measurements as above. Largest caliber of the thoracic aorta distally near the aortic hiatus measures 5.4 cm. Largest caliber of the abdominal aorta in the supraceliac portion measures 4.2 cm. Largest caliber of the infrarenal abdominal aorta measures 4.1 cm with moderate mural thrombus. 2. No evidence for aortic dissection or aneurysm rupture/leak. 3. Moderate left hydroureteronephrosis extending to the UVJ without a radiopaque renal calculi or discernible mass on CT. Patient does have a history of bladder CA. Therefore, this likely reflects UVJ involvement by new or previously treated tumor. Clinical correlation is recommended. 4. Slightly prominent main pulmonary artery may reflect some degree of pulmonary artery hypertension. 5. Two adjacent 2-3 mm nodules in the right upper lower lobe. Followup examination may be performed in 12 months per 2017 Fleischner criteria as indicated. 6. Moderate to severe coronary artery calcifications. Richardson Haney MD PE at Discharge chest - CTA COR - IRR ABD - soft, NT wound - dry and intact Hospital Course Patient was admitted and anticoagulated. He became unstable evening with refractory chest pain and pulmonary edema. 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 He did well postoperatively except for intermittent confusion and transient left-sided weakness which resolved by the day of discharge. Pt Condition on Discharge: Good Discharge Disposition: Disch w/ Home Health Serv Discharge Instructions DIET: Follow Instructions for: Heart Healthy Diet Activities you can perform: Weight Bearing as Jose, Shower Only-No Bath Activities to avoid: Lifting/Bending, Strenuous Activity, Driving Follow up Referrals: Cardiology with Suellen Moran MD Surgical with Cece Zamora MD New Orders: BASIC METABOLIC PROF - 2 Weeks CBC NO DIFF - 2 Weeks X-RAY CHEST PA & LAT - 2 Weeks New Medications: Apixaban (Eliquis) 2.5 Mg Tab 2.5 MG PO BID Blood Clot Prevention #60 Ref 2 TAB Docusate Sodium (Dok) 100 Mg Cap 100 MG PO BID PRN Constipation #28 Ref 0 CAP Metoprolol Tartrate (Metoprolol Tartrate) 25 Mg Tab 12.5 MG PO BID Blood Pressure Management #60 Ref 3 TAB Multiple Vitamins W/ Minerals (Thera M Plus) 1 Tab 1 TAB PO DAILY Nutritional Supplement #100 Ref 2 TAB Pantoprazole (Pantoprazole) 40 Mg Tab 40 MG PO DAILY@06 Prevent Stress Ulcers #14 Ref 0 TAB Continued Medications: Alprazolam (Xanax) 0.25 Mg Tab 0.25 MG PO Q6H PRN ANXIETY Ref 0 TAB Aspirin (Aspirin) 81 Mg Chew 81 MG CHEW DAILY Ref 0 TAB Discontinued Medications: Aspirin (Aspirin) 325 Mg Tab 325 MG PO DAILY #30 Ref 0 TAB Enalapril (Enalapril) 10 Mg Tab 10 MG PO DAILY #30 Ref 0 TAB Metoprolol Tartrate (Metoprolol Tartrate) 25 Mg Tab 25 MG PO BID #60 Ref 0 TAB Warfarin (Coumadin) 7.5 Mg Tab 7.5 MG PO FREITAS,,FR Prevent Blood Clot #30 Ref 0 TAB Warfarin (Coumadin) 5 Mg Tab 5 MG PO M,W,TH,SA Blood Clot Prevention #30 Ref 0 TAB Cece Zamora MD Aug 30, 2016 17:26
== END 2016-08-30 16:30 | disposition home health service (06) | DRG 233 ==
LOC: PHED 12:28 → PHEDA 14:10 → HCIS 17:08 → HCVR 08-25 13:10 → HCIN 08-28 18:43
PROVIDERS: ADMIT Thoracic Surgery (Cardiothoracic Vascular Surgery); ATTEND Thoracic Surgery (Cardiothoracic Vascular Surgery)
PROC: 4A023N7 Measurement of Cardiac Sampling and Pressure, Left Heart, Percutaneous Approach (ICD-10-PCS; 2016-08-25)
PROC: B2111ZZ Fluoroscopy of Multiple Coronary Arteries using Low Osmolar Contrast (ICD-10-PCS; 2016-08-25)
PROC: 021109W Bypass Coronary Artery, Two Arteries from Aorta with Autologous Venous Tissue, Open Approach (ICD-10-PCS; principal; 2016-08-27)
PROC: 02100Z9 Bypass Coronary Artery, One Artery from Left Internal Mammary, Open Approach (ICD-10-PCS; 2016-08-27)
PROC: 06BQ4ZZ Excision of Left Saphenous Vein, Percutaneous Endoscopic Approach (ICD-10-PCS; 2016-08-27)
PROC: 5A1221Z Performance of Cardiac Output, Continuous (ICD-10-PCS; 2016-08-27)
PROC: B246ZZ4 Ultrasonography of Right and Left Heart, Transesophageal (ICD-10-PCS; 2016-08-27)
DX: I21.4 Non-ST elevation (NSTEMI) myocardial infarction (principal); I63.49 Cerebral infarction due to embolism of other cerebral artery; G93.40 Encephalopathy, unspecified; N17.9 Acute kidney failure, unspecified; G81.94 Hemiplegia, unspecified affecting left nondominant side; D68.32 Hemorrhagic disorder due to extrinsic circulating anticoagulants; I27.2 Other secondary pulmonary hypertension; N18.3 Chronic kidney disease, stage 3 (moderate); N13.0 Hydronephrosis with ureteropelvic junction obstruction; R04.2 Hemoptysis; J98.11 Atelectasis; I71.6 Thoracoabdominal aortic aneurysm, without rupture; I70.1 Atherosclerosis of renal artery; I65.29 Occlusion and stenosis of unspecified carotid artery; J44.9 Chronic obstructive pulmonary disease, unspecified; I12.9 Hypertensive chronic kidney disease with stage 1 through stage 4 chronic kidney disease, or unspecified chronic kidney disease; E78.5 Hyperlipidemia, unspecified; I25.10 Atherosclerotic heart disease of native coronary artery without angina pectoris; K21.9 Gastro-esophageal reflux disease without esophagitis; I25.2 Old myocardial infarction; I48.91 Unspecified atrial fibrillation; I25.84 Coronary atherosclerosis due to calcified coronary lesion; R09.02 Hypoxemia; R60.9 Edema, unspecified; I71.4 Abdominal aortic aneurysm, without rupture; F41.9 Anxiety disorder, unspecified; T45.515A Adverse effect of anticoagulants, initial encounter; Z79.01 Long term (current) use of anticoagulants; Z82.49 Family history of ischemic heart disease and other diseases of the circulatory system; Z85.038 Personal history of other malignant neoplasm of large intestine; Z85.51 Personal history of malignant neoplasm of bladder; Z86.711 Personal history of pulmonary embolism; Z86.73 Personal history of transient ischemic attack (TIA), and cerebral infarction without residual deficits; Z87.891 Personal history of nicotine dependence; Z95.5 Presence of coronary angioplasty implant and graft
CPT/HCPCS: 36430; 36600; 70450; 70551; 71010; 71275; 74174; 76937; 80048; 80053; 80061; 81001; 82550; 82552; 82805; 82948; 83036; 83735; 84100; 84484; 85002; 85025; 85027; 85610; 85730; 86850; 86900; 86901; 86920; 87070; 87205; 87641; 93005; 93306; 93318; 93454; 93880; 93970; 93998; 94002; 94010; 94150; 94640; 94664; 94667; 94668; 95819; C1768; C1769; C1893; J0131; J0171; J0690; J1630; J1644; J1815; J1940; J2150; J2250; J2270; J2370; J2405; J2440; J2720; J3010; J3370; J3430; J3475; J3480; J7040; J7050; J7120; P9016; P9047; Q9967

== ENCOUNTER 2016-09-08 22:12 | Inpatient (IN) | payer MEDICARE, OTHER ==
[~2016-09-08] VITALS: Ht 182.9 cm; Wt 85.8 kg
[~2016-09-08 22:12] MED LIST changes: -AMOX500T PO; +APIX2.5T PO; -ASPI325T PO; +ASPI81CH CHEW; -COUM5TAB PO; +DOCU1CAP39 PO; -ENAL10TA7 PO; -HYDR-3533 PO; +METO25TA3 PO; -METO50TA11 PO; +PANT40TA3 PO; +THERM PO; -WARF7.5 PO
[2016-09-08 22:16] VITALS: BP 167/79; PULSE 97; RESP 18; TEMP 98.9; O2SAT 97
[2016-09-08 22:29] VITALS: BP 136/81; PULSE 96; RESP 18; O2SAT 96
[2016-09-08] MEDS ORDERED: OXYC1CAP PO (22:43)
[2016-09-08] MEDS ORDERED: ASPI325T PO (22:43)
[2016-09-08] MEDS ORDERED: SODIUM CHLORIDE 0.9% FLUSH 10 ML FLUSH IVF PRN (23:00)
[2016-09-08 23:28] LABS: AUTOMATED NEUTROPHIL # 8.7 TH/MM3 (1.8-7.7); BASOPHIL # 0.1 TH/MM3 (0-0.2); BASOPHIL % 0.5 % (0.0-2.0); EOSINOPHIL # 2.4 TH/MM3 (0-0.4); HEMATOCRIT 35.6 % (39.0-51.0); HEMO FLAGS DIFF FINAL; MEAN CELL VOLUME 95.4 FL (80.0-100.0); MEAN CORPUSCULAR HEMOGLOBIN 31.9 PG (27.0-34.0); MEAN CORPUSCULAR HGB CONC 33.4 % (32.0-36.0); MONO % 8.2 % (0.0-8.0); NEUT % 60.3 % (16.0-70.0); PLATELET COUNT 535 TH/MM3 (150-450); RED BLOOD COUNT 3.73 MIL/MM3 (4.50-5.90); WHITE BLOOD COUNT 14.4 TH/MM3 (4.0-11.0)
[2016-09-08 23:37] LABS: ALT (GPT) 26 U/L (12-78); ANION GAP 8 MEQ/L (5-15); AST (GOT) 28 U/L (15-37); BICARBONATE 25.8 MEQ/L (21.0-32.0); BLOOD UREA NITROGEN 38 MG/DL (7-18); CHLORIDE 101 MEQ/L (98-107); GLOMERULAR FILTRATION RATE 16 ML/MIN (>89); POTASSIUM 5.1 MEQ/L (3.5-5.1); SODIUM (NA) 135 MEQ/L (136-145)
[2016-09-08 23:38] LABS: APTT (PATIENT) 29.2 SEC (24.3-30.1); INTERNATIONAL NORMALIZED RATIO 1.1 RATIO; PROTHROMBIN TIME - PATIENT 12.5 SEC (9.8-11.6)
[2016-09-08 23:41] LABS: ALKALINE PHOSPHATASE 85 U/L (45-117); TOTAL BILIRUBIN ADULT 0.3 MG/DL (0.2-1.0)
--- NOTE | 2016-09-08 23:51 | PD ---
HPI Chief Complaint: Numbness/Tingling Time Seen by Provider: 22:51 Travel History International Travel<30 days: No Contact w/Intl Traveler<30days: No Traveled to known affect area: No History of Present Illness HPI 75-year-old male with previous history of hypertension, AAA repair, colon and bladder cancer status post treatment, [place], CVA, had CABG done by Dr. Meza 10 days ago and is currently on Eliquis, presents to the ER today because he states that he was getting medication off of the shelf when he notes that his right arm was not functioning well and he could not get the medication on his own. He had numbness in the right arm and hand. He denies any trouble walking , talking, or any other symptoms. He states that the symptoms lasted it for several minutes and started to subside. He has not had previous issues with this. Modifying Factors: None Associated Signs & Symptoms: Right arm numbness and weakness Risk Factors: Recent [place] PFSH Past Medical History Hx Anticoagulant Therapy: Yes Atrial Fibrillation: Yes (ABLATION 2011 (no more afib current)) Autoimmune Disease: No Anxiety: No Heart Rhythm Problems: Yes Cancer: Yes (COLON 2013 AND BLADDER 2014) Cardiac Catheterization: Yes (STENT /trible bypass 10 days ago) Cardiovascular Problems: Yes (HX. AFIB had ablation so no more & HTN) High Cholesterol: Yes Chemotherapy: No Chest Pain: Yes Congestive Heart Failure: No Cerebrovascular Accident: Yes Coronary Artery Disease: Yes Diminished Hearing: No Endocrine: No Gastrointestinal Disorders: Yes GERD: Yes Genitourinary: No Hiatal Hernia: Yes Hypertension: Yes Immune Disorder: No Kidney Stones: Yes (HX. WHEN HE WAS 29 BUT HE PASSED IT) Musculoskeletal: No Neurologic: Yes Psychiatric: No Reproductive: No Respiratory: No Immunizations Current: No Myocardial Infarction: Yes Radiation Therapy: No Seizures: Yes (as a baby) Sleep Apnea: Yes (DON'T WEAR C - PAP AT HOME) Tetanus Vaccination: < 5 Years Influenza Vaccination: Yes PNEUMOCCOCAL Vaccine (Year): 1 Past Surgical History Abdominal Aneurysm Repair: Yes Abdominal Surgery: Yes (PARTIAL COLECTOMY) Cardiac Surgery: Yes (pacemaker placed and removed ) Coronary Stent: Yes Thoracic Surgery: Yes (BILATERAL CAROTID ENDARDERECTOMY) Other Surgery: Yes Social History Alcohol Use: Yes (OCCASIONAL) Tobacco Use: No Substance Use: No Allergies-Medications (Allergen,Severity, Reaction): Coded Allergies: HMG-CoA Reductase Inhibitors (Verified Allergy, Severe, 08/25/16) PATIENT REPORTS HE CAN NOT TAKE ANY STATINS PERIOD. HE LOSES USE OF HIS LEGS Lipitor (Verified Allergy, Severe, back pain and chest pain, 08/24/16) Simvastatin (Unverified Allergy, Severe, body aches, 08/24/16) Reported Meds & Prescriptions Reported Meds & Active Scripts Active Thera M Plus (Multivitamins/Minerals Therapeutic) 1 Tab 1 Tab PO DAILY Metoprolol Tartrate 25 Mg Tab 12.5 Mg PO BID Dok (Docusate Sodium) 100 Mg Cap 100 Mg PO BID PRN Eliquis (Apixaban) 2.5 Mg Tab 2.5 Mg PO BID Reported Oxycodone (Oxycodone HCl) 5 Mg Cap Mg PO Q4H PRN Aspirin 325 Mg Tab 325 Mg PO ONCE Aspirin 81 Mg Chew 81 Mg CHEW DAILY Xanax (Alprazolam) 0.25 Mg Tab 0.25 Mg PO Q6H PRN Review of Systems Except as stated in HPI: all other systems reviewed are Neg Physical Exam Narrative GENERAL: Well-developed elderly white male patient currently in no acute distress. Awake and oriented 3. SKIN: Focused skin assessment warm/dry. Sternal incision site appears clean, dry, intact without significant erythema or tenderness on palpation. HEAD: Atraumatic. Normocephalic. EYES: Pupils equal and round. No scleral icterus. No injection or drainage. ENT: No nasal bleeding or discharge. Mucous membranes pink and moist. NECK: Trachea midline. No JVD. CARDIOVASCULAR: Regular rate and rhythm. No murmur appreciated. Pulses are present and equal bilaterally. RESPIRATORY: No accessory muscle use. Clear to auscultation. Breath sounds equal bilaterally. GASTROINTESTINAL: Abdomen soft, non-tender, nondistended. Hepatic and splenic margins not palpable. MUSCULOSKELETAL: No obvious deformities. No clubbing. No cyanosis. No edema. NEUROLOGICAL: Awake and alert. No obvious cranial nerve deficits. Motor grossly within normal limits. Normal speech. Normal multiple drum sander helper strength. No pronator drift. PSYCHIATRIC: Appropriate mood and affect; insight and judgment normal. Data Data Last Documented VS Vital Signs Date Time Temp Pulse Resp B/P Pulse Ox O2 Delivery O2 Flow Rate FiO2 09/08/16 23:00 Room Air 09/08/16 22:29 96 18 136/81 96 09/08/16 22:16 98.9 Orders Prothrombin Time / Inr (Pt) (09/08/16 22:51) Act Partial Throm Time (Ptt) (09/08/16 22:51) Complete Blood Count With Diff (09/08/16 22:51) Comprehensive Metabolic Panel (09/08/16 22:51) Troponin I (09/08/16 22:51) Ct Brain W/O Iv Contrast(Rout) (09/08/16 22:51) Chest, Single Ap (09/08/16 22:51) Ecg Monitoring (09/08/16 22:51) Iv Access Insert/Monitor (09/08/16 22:51) Oximetry (09/08/16 22:51) Sodium Chloride 0.9% Flush (Ns Flush) (09/08/16 23:00) Aspirin (Aspirin) (09/09/16 00:15) Admit Order (Ed Use Only) (09/09/16 00:39) Labs Laboratory Tests Test 09/08/16 23:08 White Blood Count 14.4 TH/MM3 Red Blood Count 3.73 MIL/MM3 Hemoglobin 11.9 GM/DL Hematocrit 35.6 % Mean Corpuscular Volume 95.4 FL Mean Corpuscular Hemoglobin 31.9 PG Mean Corpuscular Hemoglobin 33.4 % Concent Red Cell Distribution Width 14.0 % Platelet Count 535 TH/MM3 Mean Platelet Volume 8.1 FL Neutrophils (%) (Auto) 60.3 % Lymphocytes (%) (Auto) 14.0 % Monocytes (%) (Auto) 8.2 % Eosinophils (%) (Auto) 17.0 % Basophils (%) (Auto) 0.5 % Neutrophils # (Auto) 8.7 TH/MM3 Lymphocytes # (Auto) 2.0 TH/MM3 Monocytes # (Auto) 1.2 TH/MM3 Eosinophils # (Auto) 2.4 TH/MM3 Basophils # (Auto) 0.1 TH/MM3 CBC Comment DIFF FINAL Differential Comment Prothrombin Time 12.5 SEC Prothromb Time International 1.1 RATIO Ratio Activated Partial 29.2 SEC Thromboplast Time Sodium Level 135 MEQ/L Potassium Level 5.1 MEQ/L Chloride Level 101 MEQ/L Carbon Dioxide Level 25.8 MEQ/L Anion Gap 8 MEQ/L Blood Urea Nitrogen 38 MG/DL Creatinine 3.65 MG/DL Estimat Glomerular Filtration 16 ML/MIN Rate Random Glucose 110 MG/DL Calcium Level 9.0 MG/DL Total Bilirubin 0.3 MG/DL Aspartate Amino Transf 28 U/L (AST/SGOT) Alanine Aminotransferase 26 U/L (ALT/SGPT) Alkaline Phosphatase 85 U/L Troponin I 0.19 NG/ML Total Protein 7.7 GM/DL Albumin 3.0 GM/DL MDM Medical Decision Making Medical Screen Exam Complete: Yes Emergency Medical Condition: Yes Medical Record Reviewed: Yes Interpretation(s) EKG shows NSR, no ST elevation or depression, and no arrhythmias. No significant T-wave inversions. Laboratory Tests Test 09/08/16 23:08 White Blood Count 14.4 TH/MM3 (4.0-11.0) Red Blood Count 3.73 MIL/MM3 (4.50-5.90) Hemoglobin 11.9 GM/DL (13.0-17.0) Hematocrit 35.6 % (39.0-51.0) Platelet Count 535 TH/MM3 (150-450) Monocytes (%) (Auto) 8.2 % (0.0-8.0) Eosinophils (%) (Auto) 17.0 % (0.0-4.0) Neutrophils # (Auto) 8.7 TH/MM3 (1.8-7.7) Monocytes # (Auto) 1.2 TH/MM3 (0-0.9) Eosinophils # (Auto) 2.4 TH/MM3 (0-0.4) Prothrombin Time 12.5 SEC (9.8-11.6) Sodium Level 135 MEQ/L (136-145) Blood Urea Nitrogen 38 MG/DL (7-18) Creatinine 3.65 MG/DL (0.60-1.30) Estimat Glomerular Filtration 16 ML/MIN (>89) Rate Random Glucose 110 MG/DL (74-106) Troponin I 0.19 NG/ML (0.02-0.05) Albumin 3.0 GM/DL (3.4-5.0) Last [address] 09/08/16 3864 Signed Impressions: Service Date/Time: Thursday, September 08, 2016 23:41 - CONCLUSION: Stable noncontrast CT with no evidence of hemorrhage or acute infarction. Atrophy and chronic small vessel splenic changes remain. Sanya Cavazos MD Chest X-Ray 09/08/16 1904 Signed Impressions: Service Date/Time: Thursday, September 08, 2016 23:26 - CONCLUSION: 1. Interval removal of previously noted right internal jugular central venous line. 2. Mild to moderate cardiomegaly with no perihilar edema. 3. Mild scarring and/or atelectasis left lung base. Sanya Cavazos MD Differential Diagnosis Cervical radiculopathy versus TIA/CVA versus metabolic issues Narrative Course Patient has no focal neurological deficits now. CAT scan of the brain did not show any signs of acute intercranial processes. Lab work shows significant elevation of BUN and creatinine concerning for worsening renal insufficiency. At this point, case had been discussed with Dr. Meza who had done the surgery 10 days ago and he states that he does not take it is related to a CABG. However, he is concerned about the renal function as well. He does feel that patient will need medical evaluation for this issue. At this point, my plan would be to admit the patient for further treatment. Case was discussed with Dr. Weber for admission. Diagnosis Primary Impression: ANNY (acute kidney injury) Additional Impressions: Elevated troponin TIA (transient ischemic attack) Admitting Information Admitting Physician Requests: Admit Abrhaan Vasquez MD Sep 08, 2016 23:51
--- NOTE | 2016-09-08 23:52 | RADRPT ---
EXAM DATE/TIME: 09/08/2016 23:41 [facility] COMPARISON: CT BRAIN W/O CONTRAST, August 28, 2016, 11:52. INDICATIONS : Right side weakness. RADIATION DOSE: 40.82 CTDIvol (mGy) MEDICAL HISTORY : Cerebrovascular disease. Myocardial infarction. Seizures.Hypertension SURGICAL HISTORY : CABG ENCOUNTER: Initial ACUITY: 1 day PAIN SCALE: 0/10 LOCATION: cranial TECHNIQUE: Multiple contiguous axial images were obtained of the head. Using automated exposure control and adj ustment of the mA and/or kV according to patient size, radiation dose was kept as low as reasonably a chievable to obtain optimal diagnostic quality images. DICOM format image data is available electro nically for review and comparison. FINDINGS: CEREBRUM: The ventricles are normal for age with mild to moderate atrophic change. Chronic small vessel ischemi c changes are again noted. No evidence of midline shift, mass lesion, hemorrhage or acute infarction. No extra-axial fluid collections are seen. POSTERIOR FOSSA: The cerebellum and brainstem are intact. The 4th ventricle is midline. The cerebellopontine angle i s unremarkable. EXTRACRANIAL: The visualized portion of the orbits is intact. SKULL: The calvaria is intact. No evidence of skull fracture. CONCLUSION: Stable noncontrast CT with no evidence of hemorrhage or acute infarction. Atrophy and chronic small vessel splenic changes remain. Sanya Cavazos MD on September 08, 2016 at 23:50 Board Certified Radiologist. This report was verified electronically.
[2016-09-09] VITALS (10 sets, daily range): BP systolic 130–159; BP diastolic 79–93; PULSE 77–101; RESP 18–21; TEMP 97.9–100.2; O2SAT 96–99
--- NOTE | 2016-09-09 00:04 | RADRPT ---
EXAM DATE/TIME: 09/08/2016 23:26 [facility] COMPARISON: CHEST SINGLE AP, August 27, 2016, 4:20. CHEST SINGLE AP, August 28, 2016, 3:55. INDICATIONS : Short of breath. MEDICAL HISTORY : None. Hypertension. Carcinoma, colon. Myocardial infarction. A-fib. Coronary artery disease. SURGICAL HISTORY : CABG. Abdominal aortic aneurysm repair. ENCOUNTER: Initial ACUITY: 1 day PAIN SCORE: 0/10 LOCATION: Bilateral chest FINDINGS: A single AP erect portable view of the chest was obtained and demonstrates interval removal of the pr eviously noted right internal jugular central venous line. The patient is status post median sternoto my and mild to moderate cardiomegaly remains. There were no confluent infiltrates or effusions. There is mild scarring and/or atelectasis in the left lung. CONCLUSION: 1. Interval removal of previously noted right internal jugular central venous line. 2. Mild to moderate cardiomegaly with no perihilar edema. 3. Mild scarring and/or atelectasis left lung base. Sanya Cavazos MD on September 09, 2016 at 0:01 Board Certified Radiologist. This report was verified electronically.
[2016-09-09] MEDS ORDERED: ASPIRIN 325 MG TAB PO ONE (00:15)
[2016-09-09] MEDS ORDERED: NALOXONE HCL 0.4 MG/ML AMP IV PRN (00:45)
[2016-09-09] MEDS ORDERED: SODIUM CHLORIDE 0.9% FLUSH 5 ML FLUSH IV FLUSH PRN (00:45)
--- NOTE | 2016-09-09 03:36 | HHI.HP ---
[facility] Yaya Patrick M.D. Admission Diagnosis TIA/acute renal failure Diagnoses: Chief Complaint: right hand weakness Travel History International Travel<30 Days: No Contact w/Intl Traveler <30 Da: No Traveled to Known Affected Are: No History of Present Illness Written by DANNY Paul acting as scribe for [Gus] on 09/09/16 at 03: 49. 75 y/o male with a history of CAD, HTN, HLD colon cancer, bladder cancer, VA, CABG 10 days ago,and CVA presented to the ED with complaints of feeling like he was having a another stroke with right hand weakness. 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 He states it went away on its own but it did not feel 100%, denies any numbness, trouble speaking or weakness in lower extremities. Denies any chest pain, sob, nausea, vomiting, fever, chills, dizziness, dysuria or bloody stools. Patient was admitted for a CABG 10 days ago and suffered a CVA while in surgery , with some left sided weakness. He was then placed on Eliquis but rather be on Coumadin. Patient states he is able to walk without walker. Review of Systems Except as stated in HPI: all other systems reviewed are Neg Past Family Social History Past Medical History CVA while in surgery 10 days ago, with some left sided weakness HTN CAD Afib with ablation Hypertension Hyperlipidemia Colon cancer status post resection AAA status post repair Chest aortic aneurysm ascending about 5 cm per the patient Bladder Cancer Past Surgical History CABG 10 days ago Ablation for Afib Colectomy Carotid endarterectomy Bladder cancer removal Reported Medications Reported Meds & Active Scripts Active Thera M Plus (Multivitamins/Minerals Therapeutic) 1 Tab 1 Tab PO DAILY Metoprolol Tartrate 25 Mg Tab 12.5 Mg PO BID Dok (Docusate Sodium) 100 Mg Cap 100 Mg PO BID PRN Eliquis (Apixaban) 2.5 Mg Tab 2.5 Mg PO BID Reported Oxycodone (Oxycodone HCl) 5 Mg Cap Mg PO Q4H PRN Aspirin 325 Mg Tab 325 Mg PO ONCE Aspirin 81 Mg Chew 81 Mg CHEW DAILY Xanax (Alprazolam) 0.25 Mg Tab 0.25 Mg PO Q6H PRN Allergies: Coded Allergies: HMG-CoA Reductase Inhibitors (Verified Allergy, Severe, 08/25/16) PATIENT REPORTS HE CAN NOT TAKE ANY STATINS PERIOD. HE LOSES USE OF HIS LEGS Lipitor (Verified Allergy, Severe, back pain and chest pain, 08/24/16) Simvastatin (Unverified Allergy, Severe, body aches, 08/24/16) Active Ordered Medications Current Medications Medications (Trade) Dose Ordered Sig/Awilda Route Start Time Stop Time Status Last Admin (NS Flush) 2 ml UNSCH PRN IV FLUSH 09/09/16 00:45 (NS Flush) 2 ml BID IV FLUSH 09/09/16 09:00 (Narcan Inj) 0.4 mg UNSCH PRN IV 09/09/16 00:45 Family History Patient denies any family history Social History Tobacco use: Quit 19 years ago Alcohol use: rarely Illicit drug use: Denies Physical Exam Vital Signs Vital Signs Date Time Temp Pulse Resp B/P Pulse Ox O2 Delivery O2 Flow Rate FiO2 09/09/16 02:56 98.0 85 18 146/79 96 09/09/16 02:23 89 18 138/84 97 Room Air 09/09/16 00:01 97 Room Air 09/08/16 23:00 Room Air 09/08/16 22:29 96 18 136/81 96 09/08/16 22:16 98.9 97 18 167/79 97 Room Air Physical Exam GENERAL: This is a well-nourished patient, in no apparent distress. SKIN: No rashes, ecchymoses or lesions. Cool and dry. HEAD: Atraumatic. Normocephalic. No temporal or scalp tenderness. EYES: Pupils equal round and reactive. ENT: Nose without bleeding, purulent drainage or septal hematoma. Airway patent. NECK: Trachea midline. No JVD or lymphadenopathy. CARDIOVASCULAR: Regular rate and rhythm without murmurs, gallops, or rubs. RESPIRATORY: Clear to auscultation. Breath sounds equal bilaterally. No wheezes , rales, or rhonchi. GASTROINTESTINAL: Abdomen soft, non-tender, nondistended. No hepato-splenomegaly , or palpable masses. No guarding. MUSCULOSKELETAL: Extremities without clubbing, cyanosis, or edema. No joint tenderness, effusion, or edema noted. No calf tenderness. NEUROLOGICAL: Awake and alert. Motor and sensory grossly within normal limits Normal speech. Laboratory Laboratory Tests Test 09/08/16 23:08 White Blood Count 14.4 Red Blood Count 3.73 Hemoglobin 11.9 Hematocrit 35.6 Mean Corpuscular Volume 95.4 Mean Corpuscular Hemoglobin 31.9 Mean Corpuscular Hemoglobin 33.4 Concent Red Cell Distribution Width 14.0 Platelet Count 535 Mean Platelet Volume 8.1 Neutrophils (%) (Auto) 60.3 Lymphocytes (%) (Auto) 14.0 Monocytes (%) (Auto) 8.2 Eosinophils (%) (Auto) 17.0 Basophils (%) (Auto) 0.5 Neutrophils # (Auto) 8.7 Lymphocytes # (Auto) 2.0 Monocytes # (Auto) 1.2 Eosinophils # (Auto) 2.4 Basophils # (Auto) 0.1 CBC Comment DIFF FINAL Differential Comment Prothrombin Time 12.5 Prothromb Time International 1.1 Ratio Activated Partial 29.2 Thromboplast Time Sodium Level 135 Potassium Level 5.1 Chloride Level 101 Carbon Dioxide Level 25.8 Anion Gap 8 Blood Urea Nitrogen 38 Creatinine 3.65 Estimat Glomerular Filtration 16 Rate Random Glucose 110 Calcium Level 9.0 Total Bilirubin 0.3 Aspartate Amino Transf 28 (AST/SGOT) Alanine Aminotransferase 26 (ALT/SGPT) Alkaline Phosphatase 85 Troponin I 0.19 Total Protein 7.7 Albumin 3.0 Result Diagram: 09/08/16230709/08/162307 Imaging Last Impressions Head CT 09/08/162250 Signed Impressions: Service Date/Time: Thursday, September 08, 2016 23:41 - CONCLUSION: Stable noncontrast CT with no evidence of hemorrhage or acute infarction. Atrophy and chronic small vessel splenic changes remain. Sanya Cavazos MD Chest X-Ray 09/08/162250 Signed Impressions: Service Date/Time: Thursday, September 08, 2016 23:26 - CONCLUSION: 1. Interval removal of previously noted right internal jugular central venous line. 2. Mild to moderate cardiomegaly with no perihilar edema. 3. Mild scarring and/or atelectasis left lung base. Sanya Cavazos MD Assessment and Plan Problem List: (1) TIA (transient ischemic attack) ICD Code: G45.9 Status: Acute (2) Acute kidney failure ICD Code: N17.9 Status: Acute Assessment and Plan 75 y/o male with a history of CAD, HTN, HLD colon cancer, bladder cancer, VA, CABG 10 days ago,and CVA presented to the ED with complaints of feeling like he was having a another stroke with right hand weakness. TIA, on eliquis, right hand weakness that resolved on its own Head CT reviewed and shows Stable noncontrast CT with no evidence of hemorrhage or acute infarction. Atrophy and chronic small vessel splenic changes remain. -Consult neurology for recommendations- question as to anticoagulation choice as pt has TIA while on eliquis -NIH stroke scale -PT/OT/ST ordered -Allow permissive HTN for now Acute Kidney failure, creatine 3.6, baseline 1.5 suspect dehydration -gentle IVF will -Consult nephrology HTN, chronic -hold home medications until cva is ruled out DVT prophylaxis: SCDs, anticoagulation per neurology This note was transcribed by kizzy [Ronit Duncan]. I, Dr. Kenya Weber personally performed the history, physical exam, and medical decision making; and confirmed the accuracy of the information in the transcribed note. Authenticated by Dr. Kenya Weber on 09/09/16 at 03:49. Discussed Condition With Patient and RN Physician Certification 2 Midnight Certification Type: Admission for Inpatient Services Order for Inpatient Services The services are ordered in accordance with Medicare regulations or non- Medicare payer requirements, as applicable. In the case of services not specified as inpatient-only, they are appropriately provided as inpatient services in accordance with the 2-midnight benchmark. Estimated LOS (days): 2 days is the estimated time the patient will need to remain in the hospital, assuming treatment plan goals are met and no additional complications. Post-Hospital Plan: Ronit Banerjee Sep 09, 2016 03:36 Kenya Weber MD Sep 09, 2016 07:44
[2016-09-09] MEDS: SODIUM CHLOR 0.9% 1000 ML INJ 1,000 ML IV SCH (06:03)
[2016-09-09] MEDS ORDERED: SODIUM CHLORIDE 0.9% FLUSH 5 ML FLUSH IV FLUSH SCH (09:00)
[2016-09-09] MEDS: SODIUM CHLORIDE 0.9% FLUSH 10 ML FLUSH IV FLUSH SCH ×2 (10:12→22:16)
--- NOTE | 2016-09-09 11:32 | RADRPT ---
EXAM DATE/TIME: 09/09/2016 10:43 [facility] COMPARISON: US CAROTID ARTERIES, August 25, 2016, 18:11. INDICATIONS : Cerebrovascular accident. Right arm numbness and weakness. MEDICAL HISTORY : Myocardial infarction. Hypercholesterolemia. Hypertension. CAD. A-fib. GERD. Sleep apnea. Colon cance r. Bladder cancer. SURGICAL HISTORY : Abdominal aortic aneurysm repair. Coronary artery stent. Pacemaker. Colectomy. Bilateral carotid end arterectomy. ENCOUNTER: Sequela ACUITY: 1 day PAIN SCORE: 0/10 LOCATION: Bilateral neck PEAK SYSTOLIC VELOCITIES (cm/sec): ICA/CCA RATIO: Right: 1.4 Left: 1.4 ICA: Right: 94 Left: 110 CCA: Right: 69 Left: 79 ECA: Right: 61 Left: 87 VERTEBRAL: Right: 75 antegrade Left: 78 antegrade Elevated flow velocities and ICA/CCA ratios have been found to correlate with increased degrees of vessel stenosis, calculated as percentage of diameter relative to a normal segment of distal ICA/CCA FINDINGS: There is moderate plaque formation in the carotid arteries bilaterally. No hemodynamically significan t stenosis is identified. Vertebral artery flow is antegrade bilaterally. CONCLUSION: 1. Moderate visible plaque without hemodynamically significant stenosis identified. No significant ch demarco from August 25. Amado Crain MD on September 09, 2016 at 11:26 Board Certified Radiologist. This report was verified electronically.
[2016-09-09] MEDS ORDERED: ASPIRIN 325 MG TAB PO SCH (13:45)
[2016-09-09] MEDS ORDERED: APIXABAN 5 MG TABLET PO ONE (14:00)
[2016-09-09] MEDS ORDERED: PILL SPLITTER OTHER PRN (14:00)
--- NOTE | 2016-09-09 15:57 | EKG ---
Date Performed: 09/08/2016 Time Performed: 22:30:38 PTAGE: 75 years EKG: Sinus rhythm Nonspecific ST-T wave changes. Baseline artifact. Likely no significant change. NORMAL ECG PREVIOUS TRACING : 08/27/2016 04.49.04 DOCTOR: Bella Espinosa Interpretating Date/Time 09/09/2016 15:56:40
--- NOTE | 2016-09-09 15:58 | MB ---
cc: STEVAN BELTRE DATE OF CONSULTATION: 09/09/2016 HISTORY OF PRESENT ILLNESS The patient is a 75-year-old right-handed man with hypertension, hypercholesterolemia, CABG about 3 weeks ago, known atrial fibrillation, history of IL, a stroke in the past about 2 years ago or so or possibly about a year ago he tells me, where he had some right-sided weakness, had full recovery, thought it was from his carotid, he was on Coumadin then. He was switched over to Eliquis recently. He was seen by Dr. Prajapati on 08/28/2016. He noted he had a history of chest aortic aneurysm, AAA, bladder cancer, colon cancer, atrial fibrillation status post ablation, hemoptysis, CABG on 08/26/16. He was found to be sleepy with left arm weakness. He was on aspirin, low-dose beta blockers. He had an ALLERGY TO STATIN. He had left visual neglect. Left upper extremity was flaccidly weak, however, he had some near normal strength in the left upper extremity, about a 4+/5- out of 5. He was evidently put on Eliquis at that time. Anticoagulation was recommended due to bilateral strokes on an MRI which were acute. He was just on 325 of aspirin and Coumadin at the time of his admission. His INR on 08/26/16 was 1.3. Nevertheless, he had come in, after last night for about 3 minutes he could not move his right arm well, he dropped pills out of his hand and it seemed to resolve. He has been on the Eliquis at home 2.5 b.i.d. due to his renal failure and a baby aspirin a day and he had not missed any of his meds, according to his . PAST MEDICAL HISTORY As above. Also has colon cancer a year ago, history of carotid endarterectomy. MEDICATIONS Current meds: 1. Lopressor. 2. Xanax. 3. 325 of aspirin. PHYSICAL EXAMINATION VITAL SIGNS: Afebrile, 81, 21, 150/83. He is in sinus rhythm here. NECK: There were no carotid bruits. HEART: Heart was regular rhythm. I do not detect a murmur. NEURO: Pupils are equal. Visual steiner are full. Extraocular movement is intact without nystagmus. Face is symmetric with normal sensation. Tongue was midline. There is no drift. He had normal strength in upper and lower extremities bilaterally. DTRs absent throughout. Toes downgoing bilaterally. Pinprick is intact throughout. He is not ataxic on [id number]. He knew the month and the year. Speech is fluent. He is not aphasic. LABORATORY DATA Coags were essentially normal here. Basic metabolic profile, his creatinine is 3.65, it had been 1.6 when he was in here prior. CBC, white count 14, hematocrit 35, platelet count 535, it had been 174 when he had left. His echocardiogram was essentially unremarkable last admission with a normal left atrial size. IMAGING STUDIES MRI of the brain is pending. Carotid ultrasound showed moderate plaque, otherwise negative. CAT scan of the brain was read as stable. Chest x-ray showed some cardiomegaly. CTA just shows nothing major, old left lacunar ___ infarct periventricular. MRI of the brain last admission showed multiple bilateral infarcts. Review of those films shows he had bilateral cerebellar infarcts more on the right than left, bilateral occipital parietal infarcts, some tiny bilateral MCA frontal lobe and really a diffuse ___ of small infarcts. No hemorrhage was noted. IMPRESSION Bilateral infarcts, now possibly a TIA. We are going to recheck his MRI of the brain, MRA [id number]. He was on Eliquis when this occurred. Option would be to increase him to 5 mg b.i.d. He is 99 kilos so he should be able to tolerate a 5 mg twice a day dose, otherwise he would have to switch over to Coumadin. MD JOSEPH Toussaint/PEGGY /1:43 PM /3:09 PM
--- NOTE | 2016-09-09 16:35 | PD.CONS ---
HPI Service Nephrology Consult Requested By DANNY Paul Reason for Consult ANNY Primary Care Physician Yaya Patrick M.D. History of Present Illness The patient is a 75 yo [place] male who presented to this facility 09/08 with complaints of R hand weakness. He was here at this facility just 10 days ago for 4-vessel CABG, discharged on 08/29. While undergoing CABG, he suffered a stroke and came in today as he was concerned he was having another. Was having no other neurological issues. We were consulted for acute renal failure. Presenting SCr of 3.65 that has worsened significantly from discharge on 08/29 at 1.53. Appears baseline renal function 1.2-1.6 according to previous records. States he has been at his usual state of health since his hospital discharge besides R hand weakness that resolved on its own while here in the ED. Denies any NVD. No NSAIDs. Denies any urinary issues. Review of previous imaging (namely CTA on 08/24) showed a L sided hydronephrosis extending to UVJ. THe patient was unaware of this. He has hx of bladder CA that was treated by surgical resection at [facility] about 1 year ago. Scheduled for f/u there in 1 month. CTA also revealed abdominal aneurysm that vascular surgery was consulted about and was supposed to have f/u as outpatient. (Radha Hagen) Review of Systems ROS Limitations: Other (Pt denies any current symptoms) (Radha Hagen) Past Family Social History Allergies: Coded Allergies: HMG-CoA Reductase Inhibitors (Verified Allergy, Severe, 08/25/16) PATIENT REPORTS HE CAN NOT TAKE ANY STATINS PERIOD. HE LOSES USE OF HIS LEGS Lipitor (Verified Allergy, Severe, back pain and chest pain, 08/24/16) Simvastatin (Unverified Allergy, Severe, body aches, 08/24/16) Past Medical History CAD s/p 4 vessel CABG 08/26/16. Follows with Dr. Luisa ARREDONDO during CABG HTN since 1999 Colon CA dx in 1999 that was treated by colon resection Bladder CA dx in 2016 that was treated at [facility] by surgical resection. No local urologist AAA s/p repair at [facility] in 2008 Atrial fibrillation s/p ablation Previous cardiac pacemaker that was removed in 2011 after infection, presumed to be for atrial fibrillation Denies any CHF hx, but says he was on Lasix for about 16 months some time ago. Past Surgical History CABG Pacer placement with removal Colon resection Bladder cancer resection CEA Cardiac ablation AAA repair Reported Medications Thera M Plus (Multivitamins/Minerals Therapeutic) 1 Tab 1 Tab PO DAILY Metoprolol Tartrate 25 Mg Tab 12.5 Mg PO BID Dok (Docusate Sodium) 100 Mg Cap 100 Mg PO BID PRN Eliquis (Apixaban) 2.5 Mg Tab 2.5 Mg PO BID Oxycodone (Oxycodone HCl) 5 Mg Cap Mg PO Q4H PRN Aspirin 325 Mg Tab 325 Mg PO ONCE Aspirin 81 Mg Chew 81 Mg CHEW DAILY Xanax (Alprazolam) 0.25 Mg Tab 0.25 Mg PO Q6H PRN Active Ordered Medications Current Medications Medications (Trade) Dose Ordered Sig/Awilda Route Start Time Stop Time Status Last Admin (NS Flush) 2 ml UNSCH PRN IV FLUSH 09/09/16 00:45 (NS Flush) 2 ml BID IV FLUSH 09/09/16 09:00 09/09/16 10:12 Naloxone HCl 0.4 mg 0.4 mg UNSCH PRN IV 09/09/16 00:45 (NS 1000 ml Inj) 1,000 ml @ 42 mls/hr [id number] IV 09/09/16 05:45 09/09/16 06:03 (Xanax) 0.25 mg Q6H PRN PO 09/09/16 13:45 (Lopressor) 12.5 mg BID PO 09/09/16 21:00 (Pill Splitter) 1 ea UNSCH PRN OTHER 09/09/16 14:00 (Eliquis) 5 mg BID PO 09/10/16 09:00 Family History [place] Social History with 2 adult children in good health Denies tobacco use (former, quit >15 years ago) Denies EtOH Denies illicits Retired from [employer] (Radha Hagen) Physical Exam Vital Signs Vital Signs Date Time Temp Pulse Resp B/P Pulse Ox O2 Delivery O2 Flow Rate FiO2 09/09/16 11:26 98.0 81 21 150/83 98 09/09/16 09:40 130/80 136/83 135/88 09/09/16 07:30 98.1 77 19 145/79 99 09/09/16 04:15 86 09/09/16 02:56 98.0 85 18 146/79 96 09/09/16 02:23 89 18 138/84 97 Room Air 09/09/16 00:01 97 Room Air 09/08/16 23:00 Room Air 09/08/16 22:29 96 18 136/81 96 09/08/16 22:16 98.9 97 18 167/79 97 Room Air Physical Exam GENERAL: Laying in bed in NAD SKIN: Warm and dry. HEAD: Atraumatic. Normocephalic. EYES: Pupils equal and round. No scleral icterus. No injection or drainage. ENT: No nasal bleeding or discharge. Mucous membranes pink and moist. NECK: Trachea midline. No JVD. CARDIOVASCULAR: Regular rate and rhythm. RESPIRATORY: No accessory muscle use. Clear to auscultation. Breath sounds equal bilaterally. GASTROINTESTINAL: Abdomen soft, non-tender, nondistended. Hepatic and splenic margins not palpable. MUSCULOSKELETAL: Extremities without clubbing, cyanosis, or edema. No obvious deformities. NEUROLOGICAL: Awake and alert. Normal speech. PSYCHIATRIC: Appropriate mood and affect; insight and judgment normal. Laboratory Laboratory Tests Test 09/08/16 09/09/16 23:08 12:15 White Blood Count 14.4 Red Blood Count 3.73 Hemoglobin 11.9 Hematocrit 35.6 Mean Corpuscular Volume 95.4 Mean Corpuscular Hemoglobin 31.9 Mean Corpuscular Hemoglobin 33.4 Concent Red Cell Distribution Width 14.0 Platelet Count 535 Mean Platelet Volume 8.1 Neutrophils (%) (Auto) 60.3 Lymphocytes (%) (Auto) 14.0 Monocytes (%) (Auto) 8.2 Eosinophils (%) (Auto) 17.0 Basophils (%) (Auto) 0.5 Neutrophils # (Auto) 8.7 Lymphocytes # (Auto) 2.0 Monocytes # (Auto) 1.2 Eosinophils # (Auto) 2.4 Basophils # (Auto) 0.1 CBC Comment DIFF FINAL Differential Comment Prothrombin Time 12.5 Prothromb Time International 1.1 Ratio Activated Partial 29.2 Thromboplast Time Sodium Level 135 Potassium Level 5.1 Chloride Level 101 Carbon Dioxide Level 25.8 Anion Gap 8 Blood Urea Nitrogen 38 Creatinine 3.65 Estimat Glomerular Filtration 16 Rate Random Glucose 110 Calcium Level 9.0 Total Bilirubin 0.3 Aspartate Amino Transf 28 (AST/SGOT) Alanine Aminotransferase 26 (ALT/SGPT) Alkaline Phosphatase 85 Troponin I 0.19 Total Protein 7.7 Albumin 3.0 Erythrocyte Sedimentation Rate 80 Vitamin B12 Level 219 (Radha Hagen) Result Diagram: 09/08/16230709/08/162307 Imaging Last Impressions Carotid Artery Ultrasound 09/09/16 1028 Signed Impressions: Service Date/Time: September 10:43 - CONCLUSION: 1. Moderate visible plaque without hemodynamically significant stenosis identified. No significant change from August 25. Amado Crain MD Head CT 09/08/162250 Signed Impressions: Service Date/Time: Thursday, September 08, 2016 23:41 - CONCLUSION: Stable noncontrast CT with no evidence of hemorrhage or acute infarction. Atrophy and chronic small vessel splenic changes remain. Sanya Cavazos MD Chest X-Ray 09/08/162250 Signed Impressions: Service Date/Time: Thursday, September 08, 2016 23:26 - CONCLUSION: 1. Interval removal of previously noted right internal jugular central venous line. 2. Mild to moderate cardiomegaly with no perihilar edema. 3. Mild scarring and/or atelectasis left lung base. Sanya Cavazos MD (Radha Hagen) Assessment and Plan Problem List: (1) Acute kidney failure Plan: Etiology of renal failure not entirely clear. History not suggestive of dehydration, however, he does appear dry. Continue on IVF but increase rate Renal US pending. Review of previous CT showed a left sided hydronephrosis. Uncertain if this is contributing to renal decline. Will check serology given mild anemia and hypoalbuminemia. Some concern for cholesterol embolic disease given eosinophilia with acute renal failure and significant vascular disease Will follow with labs in the AM Medications should be adjusted for the patient's renal decline. Avoid nephrotoxic medications including NSAIDs and iodinated contrast dyes. Gadolinium should be avoided as eGFR <30. (2) TIA (transient ischemic attack) Plan: Neurology note reviewed (3) Hydroureteronephrosis Plan: As above. Will check renal US (4) Hypoalbuminemia Plan: As above, check serology (5) Hypertension Plan: BP mildly elevated. Consider adding Amlodipine in the AM if BP remains elevated and after MRI ordered by neurology (6) Anemia Plan: Repeat CBC with Fe panel (7) CAD (coronary artery disease) (Radha Hagen) Assessment and Plan The exam, history, and the medical decision-making described in the above note were completed with the assistance of the PA-C. I reviewed and agree with the findings presented. I attest that I had a [id number] encounter with the patient on the same day, and personally performed and documented my assessment and findings in the medical record. (Liv Cerda MD) Radha Hagen Sep 09, 2016 16:35 Liv Cerda MD Sep 10, 2016 13:50
--- NOTE | 2016-09-09 16:40 | RADRPT ---
EXAM DATE/TIME: 09/09/2016 15:41 [facility] COMPARISON: No previous studies available for comparison. [facility], CT ABDOMEN & PELVIS W CONTRAST June 29, 2011[facility], CT ABDOMEN & PELVIS W CONTRAST February 23, 2011. [facility], CTA ABDOMEN W 3D PROCESSING April 22, 2016 INDICATIONS : Increased labs. MEDICAL HISTORY : Myocardial infarction. Hypercholesterolemia. Hypertension. CAD. A-fib. GERD. Sleep apnea. Colon cance r. Bladder cancer. SURGICAL HISTORY : Abdominal aortic aneurysm repair. Coronary artery stent. Pacemaker. Colectomy.Bilateral carotid endar terectomy. ENCOUNTER: Initial ACUITY: 1 day PAIN SCORE: 2/10 LOCATION: Bilateral flank MEASUREMENTS: RIGHT KIDNEY: 10.5 x 4.4 x 4.7 cm LEFT KIDNEY: 11.8 x 4.7 x 5.4 cm FINDINGS: There is bilateral cortical atrophy. Small bilateral renal cysts are present. No hydronephrosis on th e current exam. Bladder unremarkable. CONCLUSION: 1. Cortical atrophy with small bilateral renal cysts. No hydronephrosis. Amado Crain MD on September 09, 2016 at 16:35 Board Certified Radiologist. This report was verified electronically.
[2016-09-09 17:04] LABS: BLOOD, URINE NEG (NEG); COMMENT (UR) CULT NOT INDICATED; CULTURE IF INDICATED CULT NOT INDICATED; GLUCOSE,URINE NEG (NEG); KETONE, URINE NEG (NEG); NITRITE,URINE NEG (NEG); PH, URINE 6.5 (5.0-8.5); URINE COLOR YELLOW (YELLW/STRAW)
[2016-09-09] MEDS: METOPROLOL TARTRATE 25 MG TAB PO SCH (22:15)
[2016-09-09] MEDS: ALPRAZolam 0.25 MG TAB PO PRN (22:16)
[2016-09-10] MEDS: SODIUM CHLOR 0.9% 1000 ML INJ 1,000 ML IV SCH ×3 (00:05→12:30)
[2016-09-10] MEDS ORDERED: LORazepam 2 MG/ML VIAL IV PUSH ONE ×2 (00:30→09:00)
[2016-09-10 01:14] VITALS: PULSE 92
[2016-09-10 01:39] VITALS: BP 159/74; PULSE 91; RESP 18; TEMP 98.7; O2SAT 94
[2016-09-10 04:48] VITALS: BP 154/85; PULSE 89; RESP 18; TEMP 97.7; O2SAT 97
--- NOTE | 2016-09-10 08:02 | HHI.PR ---
Subjective Remarks sr no culver or sabianist tenderness could not tolerate mri Objective Vital Signs Date Time Temp Pulse Resp B/P Pulse Ox O2 Delivery O2 Flow Rate FiO2 09/10/16 04:48 97.7 89 18 154/85 97 09/10/16 01:39 98.7 91 18 159/74 94 09/10/16 01:14 92 09/09/16 21:12 100.2 101 18 140/86 96 09/09/16 17:50 98.4 87 18 159/80 98 09/09/16 17:04 86 09/09/16 16:57 97.9 92 21 143/93 98 09/09/16 11:26 98.0 81 21 150/83 98 09/09/16 09:40 130/80 136/83 135/88 I/O 09/09/16 09/09/16 09/09/16 09/10/16 09/10/16 09/10/16 07:00 15:00 23:00 07:00 15:00 23:00 Intake Total 500 ml 950 ml Output Total 350 ml Balance 150 ml 950 ml Intake Oral 240 ml IV Total 260 ml Tube Feeding 950 ml Output Urine Total 350 ml # Voids 3 4 # Bowel Movements 0 Result Diagram: 09/08/16230709/08/162307 Objective Remarks temples nontender r hand nl alert awake nl speech Assessment and Plan Assessment and Plan imp no new spells esr 80 fu other labs no culver or ta bmp pend on eliquis 5 bid now could not do mri oob b12 shots renal issues neuro nixon can dc i ordered some inflammation labs Reymundo Jeffries MD Sep 10, 2016 08:02
[2016-09-10 08:47] VITALS: BP 156/78; PULSE 87; RESP 20; TEMP 98.1; O2SAT 96
[2016-09-10] MEDS: METOPROLOL TARTRATE 25 MG TAB PO SCH ×2 (10:12→21:30)
[2016-09-10] MEDS: APIXABAN 5 MG TABLET PO SCH ×2 (10:12→21:30)
[2016-09-10] MEDS: SODIUM CHLORIDE 0.9% FLUSH 10 ML FLUSH IV FLUSH SCH ×2 (10:13→21:31)
[2016-09-10] MEDS: CYANOCOBALAMIN 1000 MCG/ML VIAL SQ SCH (10:13)
[2016-09-10 10:58] LABS: AUTOMATED NEUTROPHIL # 6.8 TH/MM3 (1.8-7.7); BASOPHIL # 0.1 TH/MM3 (0-0.2); BASOPHIL % 0.9 % (0.0-2.0); EOSINOPHIL # 3.5 TH/MM3 (0-0.4); EOSINOPHIL % 26.8 % (0.0-4.0); HEMATOCRIT 35.5 % (39.0-51.0); HEMO FLAGS DIFF FINAL; LYMPH % 12.4 % (9.0-44.0); LYMPHOCYTE # 1.6 TH/MM3 (1.0-4.8); MEAN CELL VOLUME 94.8 FL (80.0-100.0); MEAN CORPUSCULAR HEMOGLOBIN 31.2 PG (27.0-34.0); MEAN CORPUSCULAR HGB CONC 32.9 % (32.0-36.0); MONO % 7.5 % (0.0-8.0); NEUT % 52.4 % (16.0-70.0); PLATELET COUNT 505 TH/MM3 (150-450); RED BLOOD COUNT 3.75 MIL/MM3 (4.50-5.90); RED CELL DISTRIBUTION WIDTH 14.3 % (11.6-17.2)
[2016-09-10 11:20] LABS: BICARBONATE 24.4 MEQ/L (21.0-32.0); POTASSIUM 5.1 MEQ/L (3.5-5.1)
--- NOTE | 2016-09-10 11:34 | RADRPT ---
EXAM DATE/TIME: 09/10/2016 10:57 [facility] COMPARISON: No previous studies available for comparison. INDICATIONS : Left hand numbness. MEDICAL HISTORY : Hypertension. Cardiovascular disease Carcinoma, bladder. CVA. SURGICAL HISTORY : CABG Carotid endarterectomy. Coronary artery stent. Pacemaker placement/removal, abdominal aorta repa ir. ENCOUNTER: Initial ACUITY: 1 day PAIN SCORE: 0/10 LOCATION: cranial Please note a normal MRA of the brain does not entirely exclude the possibility of a small aneurysm, nor the possibility of distal intracranial vessel disease. TECHNIQUE: 3D time of flight MRA was performed. Source images, multiplanar STS MIP, and 3D volume MIP reconstru ctions were reviewed. FINDINGS: Anterior circulation: Distal intracranial carotid arteries are patent. There is no evidence for aneurysm, vessel truncation or stenosis, and no evidence for vascular malformation. Posterior circulation: Codominant vertebral arteries distally with flow extending to the basilar and posterior cerebral radha nalini bilaterally. No evidence for vessel truncation or stenosis or vascular malformation. CONCLUSION: 1. Unremarkable MRA examination without evidence for large vessel occlusion, aneurysm, or vascular ma lformation. Richardson Haney MD on September 10, 2016 at 11:25 Board Certified Radiologist. This report was verified electronically.
[2016-09-10 11:35] LABS: RHEUMATOID FACTOR TRIGGER LESS THAN 10.0 IU/ML (0.0-14.9)
[2016-09-10 11:36] LABS: FERRITIN 397 NG/ML (26-388); IMMUNOGLOBULIN A 423 MG/DL (103-568); IMMUNOGLOBULIN G 962 MG/DL (680-1670); IMMUNOGLOBULIN M 71 MG/DL (38-231); KAPPA LAMBDA RATIO 1.77 (1.57-3.93); LAMBDA LIGHT CHAIN 164 MG/DL (90-210); TOTAL PROTEIN SPE 7.3 GM/DL (6.0-7.6); TRANSFERRIN IRON PROFILE 201 MG/DL (200-360)
--- NOTE | 2016-09-10 11:51 | RADRPT ---
EXAM DATE/TIME: 09/10/2016 10:57 [facility] COMPARISON: MRI BRAIN W/O CONTRAST, August 29, 2016, 16:39. INDICATIONS : Left hand numbness. MEDICAL HISTORY : Hypertension. Cardiovascular disease Carcinoma, bladder. SURGICAL HISTORY : CABG Carotid endarterectomy. Coronary artery stent. Pacemaker placement/removal, abdominal aorta repa ir. ENCOUNTER: Initial ACUITY: 1 day PAIN SCORE: 0/10 LOCATION: cranial TECHNIQUE: Multiplanar, multisequence MRI of the brain was performed without contrast. FINDINGS: Previous examination demonstrated multifocal small areas of restricted diffusion consistent with acut e infarcts. Current examination demonstrates interval evolution of the previously noted regions of re stricted diffusion. However, there are additional new regions of restricted diffusion primarily in th e left occipital lobe, bilateral frontoparietal high convexities, and cerebellum. No intra-or extra-axial mass or fluid collections. No significant midline shift or hemorrhage. Redemo nstration of periventricular scattered T2 signal consistent with ischemic white matter demyelination. Lateral ventricles are normal without evidence of hydrocephalus. Fourth ventricle is normal. CP angl e is unremarkable. Remainder of exam is unchanged. CONCLUSION: 1. Findings most consistent with new embolic infarcts involving both the anterior and posterior circu lation. Richardson Haney MD on September 10, 2016 at 11:44 Board Certified Radiologist. This report was verified electronically.
[2016-09-10 12:33] VITALS: PULSE 89
--- NOTE | 2016-09-10 13:48 | HHI.NPPN ---
Subjective History of Present Illness The patient is a 75 yo [place] male who presented to this facility 09/08 with complaints of R hand weakness. He was here at this facility just 10 days ago for 4-vessel CABG, discharged on 08/29. While undergoing CABG, he suffered a stroke and came in today as he was concerned he was having another. Was having no other neurological issues. We were consulted for acute renal failure. Presenting SCr of 3.65 that has worsened significantly from discharge on 08/29 at 1.53. Appears baseline renal function 1.2-1.6 according to previous records. States he has been at his usual state of health since his hospital discharge besides R hand weakness that resolved on its own while here in the ED. Denies any NVD. No NSAIDs. Denies any urinary issues. Review of previous imaging (namely CTA on 08/24) showed a L sided hydronephrosis extending to UVJ. THe patient was unaware of this. He has hx of bladder CA that was treated by surgical resection at [facility] about 1 year ago. Scheduled for f/u there in 1 month. CTA also revealed abdominal aneurysm that vascular surgery was consulted about and was supposed to have f/u as outpatient. Interval History Patient indicated he was feeling somewhat better today. Objective Data Data 09/09/16 09/10/16 19:00 07:00 Intake Total 500 ml 950 ml Output Total 350 ml Balance 150 ml 950 ml Intake Oral 240 ml IV Total 260 ml Tube Feeding 950 ml Output Urine Total 350 ml # Voids 3 4 # Bowel Movements 0 Vital Signs Date Time Temp Pulse Resp B/P Pulse Ox O2 Delivery O2 Flow Rate FiO2 09/10/16 12:33 89 09/10/16 08:47 98.1 87 20 156/78 96 09/10/16 04:48 97.7 89 18 154/85 97 09/10/16 01:39 98.7 91 18 159/74 94 09/10/16 01:14 92 09/09/16 21:12 100.2 101 18 140/86 96 09/09/16 17:50 98.4 87 18 159/80 98 09/09/16 17:04 86 09/09/16 16:57 97.9 92 21 143/93 98 -: 09/10/16 1002 09/10/16 1005 Medication Review Current Medications Sodium Chloride (NS Flush) 2 ml UNSCH PRN IVF FLUSH AFTER USING IV ACCESS; Start 09/08/16 at 23:00; Stop 09/09/16 at 00:45; Status DC Aspirin (Aspirin) 325 mg ONCE ONCE PO ; Start 09/09/16 at 00:15; Stop 09/09/16 at 00:32; Status DC Sodium Chloride (NS Flush) 2 ml UNSCH PRN IV FLUSH FLUSH AFTER USING IV ACCESS ; Start 09/09/16 at 00:45 Sodium Chloride (NS Flush) 2 ml BID IV FLUSH Last administered on 09/10/16 10: 13; Start 09/09/16 at 09:00 Naloxone HCl (Narcan Inj) 0.4 mg UNSCH PRN IV SEE LABEL COMMENTS; Start at 00:45 IV Flush (NS Flush) 2 ml BID IV FLUSH ; Start 09/09/16 at 09:00; Stop 09/09/16 at 09:00; Status DC IV Flush 2 ml 2 ml UNSCH PRN IV FLUSH FLUSH AFTER USING IV ACCESS; Start at 00:45; Stop 09/09/16 at 00:46; Status DC Sodium Chloride (NS 1000 ml Inj) 1,000 ml @ 80 mls/hr [id number] IV Last administered on 09/10/16 05:40; Start 09/09/16 at 05:45 Alprazolam (Xanax) 0.25 mg Q6H PRN PO ANXIETY Last administered on 09/09/16 22: 16; Start 09/09/16 at 13:45 Aspirin (Aspirin) 325 mg ONCE PO ; Start 09/09/16 at 13:45; Stop 09/09/16 at 15:45 ; Status DC Metoprolol Tartrate (Lopressor) 12.5 mg BID PO Last administered on 09/10/16 10 :12; Start 09/09/16 at 21:00 Miscellaneous (Pill Splitter) 1 ea UNSCH PRN OTHER SEE LABEL COMMENTS; Start at 14:00 Apixaban (Eliquis) 5 mg ONCE ONCE PO Last administered on 09/09/16 15:34; Start 09/09/16 at 14:00; Stop 09/09/16 at 14:06; Status DC Apixaban (Eliquis) 5 mg BID PO Last administered on 09/10/16 10:12; Start at 09:00 Lorazepam (Ativan Inj) 0.5 mg ONCE ONCE IV PUSH Last administered on 09/10/16 00:29; Start 09/10/16 at 00:30; Stop 09/10/16 at 00:31; Status DC Cyanocobalamin (Vitamin B12 Inj) 1,000 mcg DAILY SQ Last administered on 10:13; Start 09/10/16 at 09:00; Stop 09/13/16 at 08:59 Lorazepam (Ativan Inj) 1 mg ONCE ONCE IV PUSH Last administered on 09/10/16 10 :13; Start 09/10/16 at 09:00; Stop 09/10/16 at 09:01; Status DC Physical Exam General Appearance: No Acute Distress, Comfortable Eyes Eye Exam: Sclera White Pulmonary Resp Exam: Clear Bilaterally, Breath Sounds Equal, No Distress Cardiology CV Exam: Regular, Normal Sinus Rhythm Gastrointestinal/Abdomen GI Exam: Soft, Non-Tender Integumentary Skin Exam: Clear, Warm, Normal Turgor Extremeties Extremities Exam: No Edema Assessment/Plan Discussed Condition With: Patient Problem List: (1) Acute kidney failure Plan: Patient's creatinine level slightly improved since yesterday. The patient did have evidence of eosinophilia on presentation but there is no evidence of urine eosinophilia and serum complement levels are within normal range. Atheroembolic disease to the kidney is a secondary possibility to dehydration. Continue to monitor response to IV fluids. Discussed with patient. Medications should be adjusted for the patient's renal decline. Avoid nephrotoxic medications including NSAIDs and iodinated contrast dyes. Gadolinium should be avoided as eGFR <30. (2) CKD (chronic kidney disease) stage 3, GFR 30-59 ml/min Plan: Renal ultrasound shows changes consistent with CKD with cortical atrophy bilaterally. (3) Hydroureteronephrosis Plan: No hydronephrosis on renal ultrasound this admission. (4) TIA (transient ischemic attack) Plan: Evidence of new embolic infarcts on MRI this admission. (5) Hypoalbuminemia Plan: As above, check serology (6) Hypertension (7) Anemia Plan: Iron level and iron saturation below normal. Defer further evaluation to primary care physician. (8) CAD (coronary artery disease) Liv Cerda MD Sep 10, 2016 13:48
--- NOTE | 2016-09-10 18:13 | ECHRPT ---
Indication: CONCLUSIONS The left ventricular systolic function is low normal with an estimated ejection fraction in the rang e of 50- 55%. Wall thickness is measured at the upper limits of normal. Trace mitral valve regurgitation. BP: 145 / 79 HR: 77 Rhythm: MEASUREMENTS (Male / Female) Normal Values Technical Quality:Technically difficult study 2D ECHO LV Diastolic Diameter PLAX 4.1 cm 4.2 - 5.9 / 3.9 - 5.3 cm LV Systolic Diameter PLAX 3.1 cm IVS Diastolic Thickness 1.0 cm 0.6 - 1.0 / 0.6 - 0.9 cm LVPW Diastolic Thickness 1.0 cm 0.6 - 1.0 / 0.6 - 0.9 cm LV Relative Wall Thickness 0.5 RV Internal Dim ED PLAX 2.4 cm FINDINGS LEFT VENTRICLE Normal left ventricular size. Wall thickness is measured at the upper limits of normal. The left ventricular systolic function is low normal with an estimated ejection fraction in the rang e of 50- 55%. RIGHT VENTRICLE Normal right ventricular size and systolic function. LEFT ATRIUM The left atrial size is normal. RIGHT ATRIUM The right atrium is not well visualized. ATRIAL SEPTUM The interatrial septum not well visualized. AORTA The aortic root and proximal ascending aorta are not well visualized. MITRAL VALVE Structurally normal mitral valve. No mitral valve stenosis. Trace mitral valve regurgitation. AORTIC VALVE Probably trileaflet aortic valve. No aortic valve stenosis or regurgitation. TRICUSPID VALVE Structurally normal tricuspid valve. No tricuspid valve stenosis or regurgitation. PULMONARY VALVE The pulmonary valve is not well visualized. VESSELS The inferior vena cava is normal in size. PERICARDIUM No pericardial effusion. Smith Acharya DO (Electronically Signed) Final Date:10 September 2016 18:12
[2016-09-10 18:31] LABS: ALBUMIN SPE 3.58 GM/DL (3.50-5.00); ALPHA 1 GLOBULIN 0.39 GM/DL (0.11-0.29); ALPHA 2 GLOBULIN 1.13 GM/DL (0.22-1.00); BETA GLOBULINS (SPE) 1.14 GM/DL (0.53-1.03)
--- NOTE | 2016-09-10 19:21 | HHI.PR ---
Subjective Remarks Patient seen this morning. Says he is feeling all right. Says he did have some weakness in the right arm overnight, however this has improved. Denies any chest pain or shortness of breath. Objective Vital Signs Date Time Temp Pulse Resp B/P Pulse Ox O2 Delivery O2 Flow Rate FiO2 09/10/16 12:33 89 09/10/16 08:47 98.1 87 20 156/78 96 09/10/16 04:48 97.7 89 18 154/85 97 09/10/16 01:39 98.7 91 18 159/74 94 09/10/16 01:14 92 09/09/16 21:12 100.2 101 18 140/86 96 I/O 09/09/16 09/09/16 09/09/16 09/10/16 09/10/16 09/10/16 07:00 15:00 23:00 07:00 15:00 23:00 Intake Total 500 ml 950 ml Output Total 350 ml Balance 150 ml 950 ml Intake Oral 240 ml IV Total 260 ml Tube Feeding 950 ml Output Urine Total 350 ml # Voids 3 4 1 # Bowel Movements 0 1 Result Diagram: 09/10/16 1002 09/10/16 1005 Objective Remarks GENERAL: patient sitting up in bed. Appears comfortable. SKIN: Warm and dry. HEAD: Normocephalic. EYES: No scleral icterus. No injection or drainage. NECK: Supple, trachea midline. No JVD or lymphadenopathy. CARDIOVASCULAR: Regular rate and rhythm without murmurs, gallops, or rubs. RESPIRATORY: Breath sounds equal bilaterally. No accessory muscle use. GASTROINTESTINAL: Abdomen soft, non-tender, nondistended. MUSCULOSKELETAL: No cyanosis, or edema. BACK: Nontender without obvious deformity. No CVA tenderness. A/P Assessment and Plan 75 y/o male with a history of CAD, HTN, HLD colon cancer, bladder cancer, CO, CABG 10 days ago,and CVA presented to the ED with complaints of feeling like he was having a another stroke with right hand weakness. //Stroke //Acute right-sided weakness. Resolved. -Acute stroke on MRI as above Neurology following. Has increased Eliquos to 5 mg twice daily. -Blood pressure acceptable. -Appreciate physical therapy. //Acute Kidney failure. Improving. Creatinine 3.6 on admission. -09/10. Creatinine 3.4, slightly improved. Nephrology following. Appreciate assistance. Workup pending //Leukocytosis. White blood cell count 14.4 on admission. Likely secondary to stress. Improving 13.0 today. //Low-grade fever 100.2. Possibly secondary to stroke. No evidence for infection. //HTN, chronic -Continue metoprolol. Permissive hypertension otherwise //DVT prophylaxis: SCDs, anticoagulation per neurology Discharge Planning cleared by neurology. Discharge tomorrow if renal function improved or stable. -Home health ordered. Wili Edouard MD Sep 10, 2016 19:21
--- NOTE | 2016-09-10 19:23 | HHI.FF ---
Face to Face Verification Diagnosis: (1) Acute kidney failure (2) History of CVA (cerebrovascular accident) Physical Therapy Order: Evaluate and Treat Occupational Therapy Order: Evaluate and Treat Home Health Nursing Order: Nursing assessment with vital signs Instructions: home health nurse for medication management I have seen patient Jarad Hartley on 09/10/16. My clinical findings support the need for the requested home health care services because: Deconditioned w/ increased weakness I certify that my clinical findings support that this patient is homebound because: Unsafe to leave home unassisted Wili Edouard MD Sep 10, 2016 19:23
[2016-09-10 21:54] VITALS: BP 158/98; PULSE 102; RESP 20; TEMP 97.8; O2SAT 100
[2016-09-11] VITALS (8 sets, daily range): BP systolic 143–185; BP diastolic 75–97; PULSE 80–102; RESP 18–20; TEMP 97.8–98.8; O2SAT 96–100
[2016-09-11] MEDS: SODIUM CHLOR 0.9% 1000 ML INJ 1,000 ML IV SCH ×2 (00:18→12:34)
[2016-09-11] MEDS: CYANOCOBALAMIN 1000 MCG/ML VIAL SQ SCH (09:15)
[2016-09-11] MEDS: APIXABAN 5 MG TABLET PO SCH ×2 (09:15→20:59)
[2016-09-11] MEDS: SODIUM CHLORIDE 0.9% FLUSH 10 ML FLUSH IV FLUSH SCH ×2 (09:16→20:59)
--- NOTE | 2016-09-11 12:04 | HHI.NPPN ---
Subjective History of Present Illness The patient is a 75 yo [place] male who presented to this facility 09/08 with complaints of R hand weakness. He was here at this facility just 10 days ago for 4-vessel CABG, discharged on 08/29. While undergoing CABG, he suffered a stroke and came in today as he was concerned he was having another. Was having no other neurological issues. We were consulted for acute renal failure. Presenting SCr of 3.65 that has worsened significantly from discharge on 08/29 at 1.53. Appears baseline renal function 1.2-1.6 according to previous records. States he has been at his usual state of health since his hospital discharge besides R hand weakness that resolved on its own while here in the ED. Denies any NVD. No NSAIDs. Denies any urinary issues. Review of previous imaging (namely CTA on 08/24) showed a L sided hydronephrosis extending to UVJ. THe patient was unaware of this. He has hx of bladder CA that was treated by surgical resection at [facility] about 1 year ago. Scheduled for f/u there in 1 month. CTA also revealed abdominal aneurysm that vascular surgery was consulted about and was supposed to have f/u as outpatient. Interval History The patient overall says he is feeling OK. Daughter present in the room (aRdha Hagen) Review of Systems General General Remarks Denies any complaints (Radha Hagen) Objective Data Data Vital Signs Date Time Temp Pulse Resp B/P Pulse Ox O2 Delivery O2 Flow Rate FiO2 09/11/16 08:30 97.8 102 20 184/96 96 09/11/16 04:21 98.6 88 18 143/75 100 09/11/16 01:59 98.7 85 18 169/97 100 09/10/16 21:54 97.8 102 20 158/98 100 09/10/16 12:33 89 (Radha Hagen) -: 09/10/16 1002 09/10/16 1005 Imaging Last Impressions Head Magnetic Resonance Angiography 09/10/16 1028 Signed Impressions: Service Date/Time: Saturday, September 10, 2016 10:57 - CONCLUSION: 1. Unremarkable MRA examination without evidence for large vessel occlusion, aneurysm, or vascular malformation. Richardson Haney MD Brain MRI 09/10/16 1028 Signed Impressions: Service Date/Time: Saturday, September 10, 2016 10:57 - CONCLUSION: 1. Findings most consistent with new embolic infarcts involving both the anterior and posterior circulation. Richardson Haney MD Carotid Artery Ultrasound 09/09/16 1028 Signed Impressions: Service Date/Time: September 10:43 - CONCLUSION: 1. Moderate visible plaque without hemodynamically significant stenosis identified. No significant change from August 25. Amado Crain MD Renal Ultrasound 09/09/16 0000 Signed Impressions: Service Date/Time: September 15:41 - CONCLUSION: 1. Cortical atrophy with small bilateral renal cysts. No hydronephrosis. Amado Crain MD Head CT 09/08/162250 Signed Impressions: Service Date/Time: Thursday, September 08, 2016 23:41 - CONCLUSION: Stable noncontrast CT with no evidence of hemorrhage or acute infarction. Atrophy and chronic small vessel splenic changes remain. Sanya Cavazos MD Chest X-Ray 09/08/162250 Signed Impressions: Service Date/Time: Thursday, September 08, 2016 23:26 - CONCLUSION: 1. Interval removal of previously noted right internal jugular central venous line. 2. Mild to moderate cardiomegaly with no perihilar edema. 3. Mild scarring and/or atelectasis left lung base. Sanya Cavazos MD Medication Review Current Medications Medications (Trade) Dose Ordered Sig/Awilda Route Start Time Stop Time Status Last Admin (NS Flush) 2 ml UNSCH PRN IV FLUSH 09/09/16 00:45 (NS Flush) 2 ml BID IV FLUSH 09/09/16 09:00 09/11/16 09:16 Naloxone HCl 0.4 mg 0.4 mg UNSCH PRN IV 09/09/16 00:45 (NS 1000 ml Inj) 1,000 ml @ 80 mls/hr [id number] IV 09/09/16 05:45 09/10/16 05:40 (Xanax) 0.25 mg Q6H PRN PO 09/09/16 13:45 09/09/16 22:16 (Pill Splitter) 1 ea UNSCH PRN OTHER 09/09/16 14:00 (Eliquis) 5 mg BID PO 09/10/16 09:00 09/11/16 09:15 (Vitamin B12 Inj) 1,000 mcg DAILY SQ 09/10/16 09:00 09/13/16 08:59 09/11/16 09:15 (Lopressor) 25 mg BID PO 09/11/16 21:00 (Radha Hagen) Physical Exam General Appearance: No Acute Distress, Comfortable (Radha Hagen) Eyes Eye Exam: Sclera White (Radha Hagen) Pulmonary Resp Exam: Clear Bilaterally, Breath Sounds Equal, No Distress (Radha Hagen) Cardiology CV Exam: Regular, Normal Sinus Rhythm (Radha Hagen) Gastrointestinal/Abdomen GI Exam: Soft, Non-Tender (Radha Hagen) Integumentary Skin Exam: Clear, Warm, Normal Turgor (Radha Hagen) Extremeties Extremities Exam: No Edema (Radha Hagen) Neurologic Neuro Exam: Alert, Awake (Radha Hagen) Assessment/Plan Discussed Condition With: Patient Problem List: (1) Acute kidney failure Plan: The patient did have evidence of eosinophilia on presentation but there is no evidence of urine eosinophilia and serum complement levels are within normal range. Atheroembolic disease to the kidney is a secondary possibility to dehydration. Labs pending today and IVF has been off since midnight. RN says the patient has been refusing IVs, patient denies. Resume IVF at 80mL/hr as he still appears dry. Monitor I&Os. Medications should be adjusted for the patient's renal decline. Avoid nephrotoxic medications including NSAIDs and iodinated contrast dyes. Gadolinium should be avoided as eGFR <30. (2) CKD (chronic kidney disease) stage 3, GFR 30-59 ml/min Plan: Renal ultrasound shows changes consistent with CKD with cortical atrophy bilaterally. (3) Hydroureteronephrosis Plan: No hydronephrosis on renal ultrasound this admission. Does need to f/u with his outpatient urologist on discharge (4) TIA (transient ischemic attack) Plan: Evidence of new embolic infarcts on MRI this admission. (5) Hypoalbuminemia Plan: As above, check serology (6) Hypertension (7) Anemia Plan: Iron level and iron saturation below normal. Defer further evaluation to primary care physician. (8) CAD (coronary artery disease) (Radha Hagen) Plan Patient's renal function is showing some slight improvement. I discussed with him the importance of maintaining IV fluids in regard to management of his acute renal insufficiency. Hopefully his creatinine level will continue to improve. The exam, history, and the medical decision-making described in the above note were completed with the assistance of the PA-C. I reviewed and agree with the findings presented. I attest that I had a [id number] encounter with the patient on the same day, and personally performed and documented my assessment and findings in the medical record. (Liv Cerda MD) Radha Hagen Sep 11, 2016 12:04 Liv Cerda MD Sep 11, 2016 15:26
[2016-09-11 13:02] LABS: ANION GAP 11 MEQ/L (5-15); BICARBONATE 21.7 MEQ/L (21.0-32.0); BLOOD UREA NITROGEN 42 MG/DL (7-18); CHLORIDE 102 MEQ/L (98-107); GLOMERULAR FILTRATION RATE 18 ML/MIN (>89); POTASSIUM 5.2 MEQ/L (3.5-5.1); SODIUM (NA) 135 MEQ/L (136-145)
[2016-09-11 13:17] LABS: CREATINE KINASE 131 U/L (39-308)
[2016-09-11 13:29] LABS: CKMB 2.5 NG/ML (0.5-3.6)
[2016-09-11] MEDS ORDERED: METOPROLOL TARTRATE 25 MG TAB PO ONE (14:00)
[2016-09-11] MEDS ORDERED: SODIUM POLYSTYRENE SULFONATE SUSP 15 GM/60 ML CUP PO ONE (14:30)
--- NOTE | 2016-09-11 15:40 | HHI.PR ---
Subjective Remarks denies cp/sob bp very elevated denies headache or dizziness c/o chest tightness earlier today Objective Vitals Vital Signs Date Time Temp Pulse Resp B/P Pulse Ox O2 Delivery O2 Flow Rate FiO2 09/11/16 12:59 98.3 80 20 185/96 98 09/11/16 08:30 97.8 102 20 184/96 96 09/11/16 07:55 93 09/11/16 04:21 98.6 88 18 143/75 100 09/11/16 01:59 98.7 85 18 169/97 100 09/10/16 21:54 97.8 102 20 158/98 100 I/O 09/10/16 09/10/16 09/10/16 09/11/16 09/11/16 09/11/16 07:00 15:00 23:00 07:00 15:00 23:00 Intake Total 950 ml Output Total 500 ml Balance 950 ml -500 ml Tube Feeding 950 ml Output Urine Total 500 ml # Voids 4 1 1 1 # Bowel Movements 0 1 Result Diagram: 09/10/16 1002 09/11/16 1105 Imaging Last Impressions Head Magnetic Resonance Angiography 09/10/16 1028 Signed Impressions: Service Date/Time: Saturday, September 10, 2016 10:57 - CONCLUSION: 1. Unremarkable MRA examination without evidence for large vessel occlusion, aneurysm, or vascular malformation. Richardson Haney MD Brain MRI 09/10/16 1028 Signed Impressions: Service Date/Time: Saturday, September 10, 2016 10:57 - CONCLUSION: 1. Findings most consistent with new embolic infarcts involving both the anterior and posterior circulation. Richardson Haney MD Carotid Artery Ultrasound 09/09/16 1028 Signed Impressions: Service Date/Time: September 10:43 - CONCLUSION: 1. Moderate visible plaque without hemodynamically significant stenosis identified. No significant change from August 25. Amado Crain MD Renal Ultrasound 09/09/16 0000 Signed Impressions: Service Date/Time: September 15:41 - CONCLUSION: 1. Cortical atrophy with small bilateral renal cysts. No hydronephrosis. Amado Crain MD Head CT 09/08/16 3041 Signed Impressions: Service Date/Time: Thursday, September 08, 2016 23:41 - CONCLUSION: Stable noncontrast CT with no evidence of hemorrhage or acute infarction. Atrophy and chronic small vessel splenic changes remain. Sanya Cavazos MD Chest X-Ray 09/08/16 4851 Signed Impressions: Service Date/Time: Thursday, September 08, 2016 23:26 - CONCLUSION: 1. Interval removal of previously noted right internal jugular central venous line. 2. Mild to moderate cardiomegaly with no perihilar edema. 3. Mild scarring and/or atelectasis left lung base. Sanya Cavazos MD Objective Remarks GENERAL: patient sitting up in bed. Appears comfortable. SKIN: Warm and dry. HEAD: Normocephalic. EYES: No scleral icterus. No injection or drainage. NECK: Supple, trachea midline. No JVD or lymphadenopathy. CARDIOVASCULAR: Regular rate and rhythm without murmurs, gallops, or rubs. RESPIRATORY: Breath sounds equal bilaterally. No accessory muscle use. GASTROINTESTINAL: Abdomen soft, non-tender, nondistended. MUSCULOSKELETAL: No cyanosis, or edema. BACK: Nontender without obvious deformity. No CVA tenderness. Medications and IVs Current Medications Medications (Trade) Dose Ordered Sig/Awilda Route Start Time Stop Time Status Last Admin (NS Flush) 2 ml UNSCH PRN IV FLUSH 09/09/16 00:45 (NS Flush) 2 ml BID IV FLUSH 09/09/16 09:00 09/11/16 09:16 Naloxone HCl 0.4 mg 0.4 mg UNSCH PRN IV 09/09/16 00:45 (NS 1000 ml Inj) 1,000 ml @ 80 mls/hr [id number] IV 09/09/16 05:45 09/12/16 02:08 (Xanax) 0.25 mg Q6H PRN PO 09/09/16 13:45 09/11/16 20:59 (Pill Splitter) 1 ea UNSCH PRN OTHER 09/09/16 14:00 (Eliquis) 5 mg BID PO 09/10/16 09:00 09/11/16 20:59 (Vitamin B12 Inj) 1,000 mcg DAILY SQ 09/10/16 09:00 09/13/16 08:59 09/11/16 09:15 (Lopressor) 25 mg BID PO 09/11/16 21:00 (Catapres) 0.1 mg Q6H PRN PO 09/11/16 14:30 09/11/16 23:52 (Norvasc) 10 mg DAILY PO 09/11/16 14:30 09/11/16 16:12 A/P Problem List: (1) TIA (transient ischemic attack) ICD Code: G45.9 Status: Acute Plan: cute right-sided weakness. Resolved. Acute stroke on MRI as above Neurology following. Has increased Eliquos to 5 mg twice daily. Blood pressure acceptable. Appreciate physical therapy. (2) Acute kidney failure ICD Code: N17.9 Status: Acute Plan: Creatinine slightly improved nephrology following continue to monitor bun/creatinine (3) Uncontrolled hypertension ICD Code: I10 Status: Acute Plan: Start amlodipine 10 mg daily, increase metoprolol dose to 25 bid, (4) CKD (chronic kidney disease), stage III ICD Code: N18.3 Status: Chronic Plan: Renal ultrasound shows changes consistent with CKD with cortical atrophy bilaterally. Baseline renal function 1.2 - 1.6. (5) Leukocytosis ICD Code: D72.829 Status: Acute Plan: Continue to monitor cbc Likely reactive, no signs of infection. (6) Chest pain ICD Code: R07.9 Status: Acute Plan: Resolved. Patient has recent CABG. Cardiaz enzymes with elevated troponins.Troponin slightly higher than a troponin obtained on 09/08 which was 0.19. Will consult cardiology. (7) CAD (coronary artery disease) ICD Code: I25.10 Status: Acute Plan: Continue beta chai, apixaban. Assessment and Plan DVT prophylaxis - apixaban Discharge Planning DC pending - cardiology consult, nephrology clearance Problem Qualifiers (1) TIA (transient ischemic attack): Qualified Code: G45.9 - Transient cerebral ischemia, unspecified type (2) CAD (coronary artery disease): Qualified Code: I25.10 - Coronary artery disease involving [place] coronary artery of [place] heart without angina pectoris Vu Sarah MD Sep 11, 2016 15:40
[2016-09-11] MEDS: cloNIDine HCL 0.1 MG TAB PO PRN ×2 (17:39→23:52)
[2016-09-11 20:48] LABS: CREATINE KINASE 141 U/L (39-308)
[2016-09-11] MEDS: ALPRAZolam 0.25 MG TAB PO PRN (20:59)
[2016-09-11] MEDS: METOPROLOL TARTRATE 25 MG TAB PO SCH (21:01)
[2016-09-11 21:21] LABS: CKMB 2.4 NG/ML (0.5-3.6)
[2016-09-12] VITALS (8 sets, daily range): BP systolic 116–174; BP diastolic 63–95; PULSE 84–104; RESP 18–22; TEMP 97.6–99.3; O2SAT 95–100
[2016-09-12] MEDS: SODIUM CHLOR 0.9% 1000 ML INJ 1,000 ML IV SCH ×3 (02:08→20:56)
[2016-09-12 02:54] LABS: HEMATOCRIT 35.2 % (39.0-51.0); MEAN CELL VOLUME 94.7 FL (80.0-100.0); MEAN CORPUSCULAR HGB CONC 33.8 % (32.0-36.0); PLATELET COUNT 449 TH/MM3 (150-450); RED BLOOD COUNT 3.72 MIL/MM3 (4.50-5.90); RED CELL DISTRIBUTION WIDTH 14.2 % (11.6-17.2); REVIEW FLAG FINAL; WHITE BLOOD COUNT 13.1 TH/MM3 (4.0-11.0)
[2016-09-12 03:33] LABS: BICARBONATE 23.2 MEQ/L (21.0-32.0); POTASSIUM 5.3 MEQ/L (3.5-5.1)
[2016-09-12 03:52] LABS: KAPPA/LAMBDA FREE 1.53 (0.26-1.65)
[2016-09-12] MEDS: METOPROLOL TARTRATE 25 MG TAB PO SCH (08:17)
[2016-09-12] MEDS: APIXABAN 5 MG TABLET PO SCH ×2 (08:17→20:55)
[2016-09-12] MEDS: CYANOCOBALAMIN 1000 MCG/ML VIAL SQ SCH (08:19)
[2016-09-12] MEDS: SODIUM CHLORIDE 0.9% FLUSH 10 ML FLUSH IV FLUSH SCH ×2 (08:22→20:55)
[2016-09-12] MEDS ORDERED: DEXTROSE 50% IN WATER 50 ML VIAL(D50) IV PUSH ONE (08:45)
[2016-09-12] MEDS ORDERED: SODIUM POLYSTYRENE SULFONATE SUSP 15 GM/60 ML CUP PO ONE (08:45)
[2016-09-12] MEDS ORDERED: INSULIN HUMAN REGULAR 1,000 UNITS/10 ML VIAL IV PUSH ONE (08:45)
[2016-09-12] MEDS ORDERED: METOPROLOL TARTRATE 25 MG TAB PO ONE (12:30)
--- NOTE | 2016-09-12 13:36 | HHI.PR ---
Subjective Remarks As per RN patient is refusing to take whole 25 mg dose of metoprolol denies fevers/chills patient states is refusing beta chai because he gets anxious and gives him chest pain currently denies cp/sob Objective Vitals Vital Signs Date Time Temp Pulse Resp B/P Pulse Ox O2 Delivery O2 Flow Rate FiO2 09/12/16 13:13 97.6 93 20 155/90 98 09/12/16 08:43 98.0 100 20 174/95 98 09/12/16 04:08 95 22 133/65 98 09/12/16 03:50 98.3 99 18 172/95 100 09/12/16 01:05 97.9 104 18 161/93 100 09/11/16 23:00 96 09/11/16 21:27 98.8 96 20 184/94 100 09/11/16 17:02 98.3 97 20 169/84 96 I/O 09/11/16 09/11/16 09/11/16 09/12/16 09/12/16 09/12/16 07:00 15:00 23:00 07:00 15:00 23:00 Intake Total 1730 ml 709 ml Output Total 500 ml 575 ml 500 ml Balance -500 ml 1155 ml 209 ml Intake Oral 1080 ml IV Total 650 ml 709 ml Output Urine Total 500 ml 575 ml 500 ml # Voids 1 1 2 2 # Bowel Movements 2 Result Diagram: 09/12/16 0230 09/12/16 0230 Imaging Last Impressions Head Magnetic Resonance Angiography 09/10/16 1028 Signed Impressions: Service Date/Time: Saturday, September 10, 2016 10:57 - CONCLUSION: 1. Unremarkable MRA examination without evidence for large vessel occlusion, aneurysm, or vascular malformation. Richardson Haney MD Brain MRI 09/10/16 1028 Signed Impressions: Service Date/Time: Saturday, September 10, 2016 10:57 - CONCLUSION: 1. Findings most consistent with new embolic infarcts involving both the anterior and posterior circulation. Richardson Haney MD Carotid Artery Ultrasound 09/09/16 1028 Signed Impressions: Service Date/Time: September 10:43 - CONCLUSION: 1. Moderate visible plaque without hemodynamically significant stenosis identified. No significant change from August 25. Amado Crain MD Renal Ultrasound 09/09/16 0000 Signed Impressions: Service Date/Time: September 15:41 - CONCLUSION: 1. Cortical atrophy with small bilateral renal cysts. No hydronephrosis. Amado Crain MD Head CT 09/08/162250 Signed Impressions: Service Date/Time: Thursday, September 08, 2016 23:41 - CONCLUSION: Stable noncontrast CT with no evidence of hemorrhage or acute infarction. Atrophy and chronic small vessel splenic changes remain. Sanya Cavazos MD Chest X-Ray 09/08/162250 Signed Impressions: Service Date/Time: Thursday, September 08, 2016 23:26 - CONCLUSION: 1. Interval removal of previously noted right internal jugular central venous line. 2. Mild to moderate cardiomegaly with no perihilar edema. 3. Mild scarring and/or atelectasis left lung base. Sanya Cavazos MD Objective Remarks GENERAL: patient sitting up in bed. Appears comfortable. SKIN: Warm and dry. HEAD: Normocephalic. EYES: No scleral icterus. No injection or drainage. NECK: Supple, trachea midline. No JVD or lymphadenopathy. CARDIOVASCULAR: Regular rate and rhythm without murmurs, gallops, or rubs. RESPIRATORY: Breath sounds equal bilaterally. No accessory muscle use. GASTROINTESTINAL: Abdomen soft, non-tender, nondistended. MUSCULOSKELETAL: No cyanosis, or edema. BACK: Nontender without obvious deformity. No CVA tenderness. Medications and IVs Current Medications Medications (Trade) Dose Ordered Sig/Awilda Route Start Time Stop Time Status Last Admin (NS Flush) 2 ml UNSCH PRN IV FLUSH 09/09/16 00:45 (NS Flush) 2 ml BID IV FLUSH 09/09/16 09:00 09/11/16 09:16 Naloxone HCl 0.4 mg 0.4 mg UNSCH PRN IV 09/09/16 00:45 (NS 1000 ml Inj) 1,000 ml @ 80 mls/hr [id number] IV 09/09/16 05:45 09/12/16 02:08 (Xanax) 0.25 mg Q6H PRN PO 09/09/16 13:45 09/11/16 20:59 (Pill Splitter) 1 ea UNSCH PRN OTHER 09/09/16 14:00 (Eliquis) 5 mg BID PO 09/10/16 09:00 09/12/16 08:17 (Vitamin B12 Inj) 1,000 mcg DAILY SQ 09/10/16 09:00 09/13/16 08:59 09/12/16 08:19 (Catapres) 0.1 mg Q6H PRN PO 09/11/16 14:30 09/11/16 23:52 (Norvasc) 10 mg DAILY PO 09/11/16 14:30 09/12/16 08:17 (Lopressor) 50 mg BID PO 09/12/16 21:00 Urinary Catheter: No Vascular Central Line Catheter: No A/P Problem List: (1) Cerebrovascular accident (CVA) due to embolism ICD Code: I63.9 Status: Acute Plan: Presented with acute right-sided weakness. Resolved. Acute stroke on MRI as above - embolic Neurology following - increased Eliquos to 5 mg twice daily. BP elevated - patient refusing to take metoprolol 25 mg bid and only taking 1/2 tablet Appreciate physical therapy. (2) Acute kidney failure ICD Code: N17.9 Status: Acute Plan: Creatinine stable and not improving nephrology following continue to monitor bun/creatinine Discussed case with Dr. Cerda from nephrology. Possible embolic disease to the kidneys suspected with initial eosinophilia on CBC, however complement C3 and C4 normal. (3) Uncontrolled hypertension ICD Code: I10 Status: Acute Plan: Continue amlodipine 10 mg and metoprolol 25 mg po bid. Continue clonidine prn (4) CKD (chronic kidney disease), stage III ICD Code: N18.3 Status: Chronic Plan: Renal ultrasound shows changes consistent with CKD with cortical atrophy bilaterally. Baseline renal function 1.2 - 1.6. fu nephrology recommendations Continue to monitor BUN/creatinine, avoid nephrotoxins. (5) Leukocytosis ICD Code: D72.829 Status: Acute Plan: Continue to monitor cbc Likely reactive, no signs of infection. (6) Chest pain ICD Code: R07.9 Status: Acute Plan: Resolved. Patient has recent CABG. Cardiaz enzymes with elevated troponins.Troponin slightly higher than a troponin obtained on 09/08 which was 0.19. The allergy consulted and recommendations pending. (7) CAD (coronary artery disease) ICD Code: I25.10 Status: Acute Plan: Continue beta chai, apixaban. (8) Hyperkalemia ICD Code: E87.5 Status: Acute Plan: Potassium elevated at 5.2 on 85 and went up to 5.3 on 09/12. Likely secondary to decreased renal excretion of potassium. I will give insulin, D50 and oral Kayexalate. Switch to renal diet Assessment and Plan DVT prophylaxis - apixaban Discharge Planning DC pending - cardiology consult, nephrology clearance, bp control Problem Qualifiers (1) CAD (coronary artery disease): Qualified Code: I25.10 - Coronary artery disease involving [place] coronary artery of [place] heart without angina pectoris Vu Sarah MD Sep 12, 2016 13:36
--- NOTE | 2016-09-12 13:59 | HHI.NPPN ---
Subjective History of Present Illness The patient is a 75 yo [place] male who presented to this facility 09/08 with complaints of R hand weakness. He was here at this facility just 10 days ago for 4-vessel CABG, discharged on 08/29. While undergoing CABG, he suffered a stroke and came in today as he was concerned he was having another. Was having no other neurological issues. We were consulted for acute renal failure. Presenting SCr of 3.65 that has worsened significantly from discharge on 08/29 at 1.53. Appears baseline renal function 1.2-1.6 according to previous records. States he has been at his usual state of health since his hospital discharge besides R hand weakness that resolved on its own while here in the ED. Denies any NVD. No NSAIDs. Denies any urinary issues. Review of previous imaging (namely CTA on 08/24) showed a L sided hydronephrosis extending to UVJ. THe patient was unaware of this. He has hx of bladder CA that was treated by surgical resection at [facility] about 1 year ago. Scheduled for f/u there in 1 month. CTA also revealed abdominal aneurysm that vascular surgery was consulted about and was supposed to have f/u as outpatient. Interval History Patient indicated that he was feeling stronger. Review of Systems General General Remarks Denies any complaints Objective Data Data 09/11/16 09/12/16 19:00 07:00 Intake Total 1080 ml 1359 ml Output Total 500 ml 1075 ml Balance 580 ml 284 ml Intake Oral 1080 ml IV Total 1359 ml Output Urine Total 500 ml 1075 ml # Voids 1 4 # Bowel Movements 2 Vital Signs Date Time Temp Pulse Resp B/P Pulse Ox O2 Delivery O2 Flow Rate FiO2 09/12/16 13:13 97.6 93 20 155/90 98 09/12/16 08:43 98.0 100 20 174/95 98 09/12/16 04:08 95 22 133/65 98 09/12/16 03:50 98.3 99 18 172/95 100 09/12/16 01:05 97.9 104 18 161/93 100 09/11/16 23:00 96 09/11/16 21:27 98.8 96 20 184/94 100 09/11/16 17:02 98.3 97 20 169/84 96 -: 09/12/16 0230 09/12/16 0230 Microbiology 09/12/16 Stool Occult Blood (JAME) - Final, Complete HEMOCCULT NEGATIVE Physical Exam General Appearance: No Acute Distress, Comfortable Eyes Eye Exam: Sclera White Pulmonary Resp Exam: Clear Bilaterally, Breath Sounds Equal, No Distress Cardiology CV Exam: Regular, Normal Sinus Rhythm Gastrointestinal/Abdomen GI Exam: Soft, Non-Tender Integumentary Skin Exam: Clear, Warm, Normal Turgor Extremeties Extremities Exam: No Edema Neurologic Neuro Exam: Alert, Awake Assessment/Plan Discussed Condition With: Patient Problem List: (1) Acute kidney failure Plan: The patient's creatinine level has not improved significantly since yesterday. It appears that the patient has sustained an acute kidney injury etiology uncertain. Presence of eosinophilia on WBC differential still raises the possibility that the patient may have sustained atheroembolic episodes to the kidney. No specific treatment for this if this has occurred. Will recheck urine for eosinophils tomorrow as well as repeat C3 and C4 of these tests can be suggestive but are not definitive in excluding or confirming. As discussed with the patient. Also await results of serum protein electrophoresis and urine immunofixation. His kappa/lambda light chain ratio is within normal range. Medications should be adjusted for the patient's renal decline. Avoid nephrotoxic medications including NSAIDs and iodinated contrast dyes. Gadolinium should be avoided as eGFR <30. (2) Hyperkalemia Plan: Agree with implementation of a low potassium diet. Repeat potassium level in a.m. (3) CKD (chronic kidney disease) stage 3, GFR 30-59 ml/min Plan: Renal ultrasound shows changes consistent with CKD with cortical atrophy bilaterally. (4) Hydroureteronephrosis Plan: No hydronephrosis on renal ultrasound this admission. Does need to f/u with his outpatient urologist on discharge (5) TIA (transient ischemic attack) Plan: Evidence of new embolic infarcts on MRI this admission. (6) Hypoalbuminemia Plan: As above, check serology (7) Hypertension (8) Anemia Plan: Iron level and iron saturation below normal. Defer further evaluation to primary care physician. (9) CAD (coronary artery disease) Problem Qualifiers (1) TIA (transient ischemic attack): Qualified Code: G45.9 - Transient cerebral ischemia, unspecified type (2) CAD (coronary artery disease): Qualified Code: I25.10 - Coronary artery disease involving [place] coronary artery of [place] heart without angina pectoris Liv Cerda MD Sep 12, 2016 13:59
[2016-09-12] MEDS: LABETALOL HCL 100 MG TAB PO SCH ×2 (15:45→17:37)
--- NOTE | 2016-09-12 15:47 | PD.CONS ---
HPI Service Cardiology Physicians Consult Requested By Dr Cameron Reason for Consult Chest pain Primary Care Physician Yaya Patrick M.D. History of Present Illness The patient is a 75 year old male known to our practice with a cardiac history of atrial fibrillation with a history of CVA, ASHD with recent CABG, thoracic aortic aneurysm 5.2 cm, abdominal aortic aneurysm 4.2 cm, carotid stenosis and HTN. The patient presented with stroke-like symptoms. The patient was instructed to increase Eliquis to 5 mg BID after recent discharge by our office , but the patient did not because "he did not feel right. " He attributes recent chest pain, HTN and hallucinations to Eliquis. We were consulted for chest pain. The patient states that he develops chest pain after taking metoprolol 25 mg BID. He denies chest pain otherwise. The patient has troponin elevation likely due to acute on chronic CKD and recent NSTEMI. (Elin Kwok) Review of Systems Consitutional: COMPLAINS OF: Fatigue, DENIES: Fever, Chills, Weight gain, Weight loss Eyes: DENIES: Amaurosis Fugax, Change in vision HEENT: DENIES: Lightheadedness, Change in hearing Respiratory: DENIES: See HPI, Cough, Snoring, Shortness of breath, Wheezing, Sputum production Cardiovascular: COMPLAINS OF: Chest pain, DENIES: See HPI, Palpitations, Syncope, Tachycardia Gastrointestinal: DENIES: Nausea, Vomiting, Change in bowel habits, Reflux, Bloody stools, Melena Genitourinary: DENIES: Urinary incontinence, Difficulty voiding Integumentary: DENIES: Rash Neurologic: COMPLAINS OF: Stroke symptoms, DENIES: Tingling or numbness, Memory problems, Poor Balance Musculoskeletal: DENIES: Joint pain, Muscle pain, Limited range of motion, Back pain Psychiatric: DENIES: Anxiety, Depression, Sleep disturbances Hematologic: DENIES: Bruising tendencies, Bleeding tendencies Endocrine: DENIES: Weight gain, Weight loss, Thyroid disease (Elin Kwok ) Past Family Social History Allergies: Coded Allergies: HMG-CoA Reductase Inhibitors (Verified Allergy, Severe, 08/25/16) PATIENT REPORTS HE CAN NOT TAKE ANY STATINS PERIOD. HE LOSES USE OF HIS LEGS Lipitor (Verified Allergy, Severe, back pain and chest pain, 08/24/16) Simvastatin (Unverified Allergy, Severe, body aches, 08/24/16) Past Medical History ASHD s/p recent CABG Chronic atrial fibrillation history of CVA. HTN Hypertension Hyperlipidemia Colon cancer status post resection AAA status post repair Thoracic aortic aneurysm 5.2 cm Carotid artery stenosis Bladder Cancer Past Surgical History CABG 08/2016 Ablation for Afib Colectomy Carotid endarterectomy Bladder cancer removal Reported Medications Reported Meds & Active Scripts Active Thera M Plus (Multivitamins/Minerals Therapeutic) 1 Tab 1 Tab PO DAILY Metoprolol Tartrate 25 Mg Tab 12.5 Mg PO BID Dok (Docusate Sodium) 100 Mg Cap 100 Mg PO BID PRN Eliquis (Apixaban) 2.5 Mg Tab 2.5 Mg PO BID Reported Oxycodone (Oxycodone HCl) 5 Mg Cap Mg PO Q4H PRN Aspirin 325 Mg Tab 325 Mg PO ONCE Aspirin 81 Mg Chew 81 Mg CHEW DAILY Xanax (Alprazolam) 0.25 Mg Tab 0.25 Mg PO Q6H PRN Active Ordered Medications Current Medications Medications (Trade) Dose Ordered Sig/Awilda Route Start Time Stop Time Status Last Admin (NS Flush) 2 ml UNSCH PRN IV FLUSH 09/09/16 00:45 (NS Flush) 2 ml BID IV FLUSH 09/09/16 09:00 09/11/16 09:16 Naloxone HCl 0.4 mg 0.4 mg UNSCH PRN IV 09/09/16 00:45 (NS 1000 ml Inj) 1,000 ml @ 80 mls/hr [id number] IV 09/09/16 05:45 09/12/16 14:34 (Xanax) 0.25 mg Q6H PRN PO 09/09/16 13:45 09/11/16 20:59 (Pill Splitter) 1 ea UNSCH PRN OTHER 09/09/16 14:00 (Eliquis) 5 mg BID PO 09/10/16 09:00 09/12/16 08:17 (Vitamin B12 Inj) 1,000 mcg DAILY SQ 09/10/16 09:00 09/13/16 08:59 09/12/16 08:19 (Catapres) 0.1 mg Q6H PRN PO 09/11/16 14:30 09/11/16 23:52 (Norvasc) 10 mg DAILY PO 09/11/16 14:30 09/12/16 08:17 (Lopressor) 25 mg BID PO 09/12/16 21:00 Family History non contributory Social History No ETOH, no current smoking (Elin Kwok) Physical Exam Vital Signs Vital Signs Date Time Temp Pulse Resp B/P Pulse Ox O2 Delivery O2 Flow Rate FiO2 09/12/16 13:13 97.6 93 20 155/90 98 09/12/16 08:43 98.0 100 20 174/95 98 09/12/16 04:08 95 22 133/65 98 09/12/16 03:50 98.3 99 18 172/95 100 09/12/16 01:05 97.9 104 18 161/93 100 09/11/16 23:00 96 09/11/16 21:27 98.8 96 20 184/94 100 09/11/16 17:02 98.3 97 20 169/84 96 Physical Exam GENERAL: Elderly male sitting up in the bed SKIN: Warm and dry. HEAD: Atraumatic. Normocephalic. EYES: Pupils equal and round. No scleral icterus. No injection or drainage. ENT: No nasal bleeding or discharge. Mucous membranes pink and moist. NECK: Trachea midline. No JVD. CARDIOVASCULAR: Regular rate and rhythm. RESPIRATORY: No accessory muscle use. Clear to auscultation. Breath sounds equal bilaterally. GASTROINTESTINAL: Abdomen soft, non-tender, nondistended. Hepatic and splenic margins not palpable. MUSCULOSKELETAL: Extremities without clubbing, cyanosis, or edema. No obvious deformities. NEUROLOGICAL: Awake and alert. No obvious cranial nerve deficits. Motor grossly within normal limits. Five out of 5 muscle strength in the arms and legs. Normal speech. PSYCHIATRIC: Appropriate mood and affect; insight and judgment normal. Laboratory Laboratory Tests Test 09/11/16 09/12/16 19:59 02:30 Total Creatine Kinase 141 96 Creatine Kinase MB 2.4 Troponin I 0.24 0.25 White Blood Count 13.1 Red Blood Count 3.72 Hemoglobin 11.9 Hematocrit 35.2 Mean Corpuscular Volume 94.7 Mean Corpuscular Hemoglobin 32.0 Mean Corpuscular Hemoglobin 33.8 Concent Red Cell Distribution Width 14.2 Platelet Count 449 Mean Platelet Volume 7.2 Sodium Level 137 Potassium Level 5.3 Chloride Level 104 Carbon Dioxide Level 23.2 Anion Gap 10 Blood Urea Nitrogen 42 Creatinine 3.42 Estimat Glomerular Filtration 18 Rate Random Glucose 97 Calcium Level 8.6 Phosphorus Level 5.1 Albumin 2.6 Date/Time Procedure Status Source Growth 09/12/16 01:00 Stool Occult Blood (JAME) - Final Complete Stool Stool HEMOCCULT NEGATIVE (Elin Kwok) Result Diagram: 09/12/16 0230 09/12/16 0230 Imaging Last 72 hours Impressions Head Magnetic Resonance Angiography 09/10/16 1028 Signed Impressions: Service Date/Time: Saturday, September 10, 2016 10:57 - CONCLUSION: 1. Unremarkable MRA examination without evidence for large vessel occlusion, aneurysm, or vascular malformation. Richardson Haney MD Brain MRI 09/10/16 1028 Signed Impressions: Service Date/Time: Saturday, September 10, 2016 10:57 - CONCLUSION: 1. Findings most consistent with new embolic infarcts involving both the anterior and posterior circulation. Richardson Haney MD (Elin Kwok) Assessment and Plan Assessment and Plan Chest pain, troponin elevated likely due to CKD and had recent NSTEMI. Patient attributes chest pain to metoprolol Atrial fibrillation with CVA and TIAs. Patient was on subtherapeutic Eliquis prior to admission ASHD s/p CABG 08/2016 Thoracic and abdominal aortic aneurysms HTN HLD- intolerant of statin therapy Carotid stenosis Acute on chronic renal insufficiency with hyperkalemia Hallucinations PLAN: The patient wants to transition from Eliquis back to Coumadin. Had a prolonged discussion with the patient about oral anticoagulation. Will continue on Eliquis Will change from metoprolol to labetalol. The patient is under the impression that the metoprolol is causing chest pain Nephrology following. The patient was seen and evaluated by Dr. Moran. (Elin Kwok) Assessment and Plan The exam, history, and the medical decision-making described in the above note were completed with the assistance of the mid-level provider. I reviewed and agree with the findings presented. I attest that I had a [id number] encounter with the patient on the same day, and personally performed and documented my assessment and findings in the medical record. Had a long discussion about his issues, he is in SR but had a recent TIA. He was on a lower dose of Eliquis so this will be increased. Feel renal failure/volume contraction is contributing to his illness. Metoprolol may be causing hallucinations so will switch to labetalol (Suellen Moran MD) Elin Kwok Sep 12, 2016 15:47 Suellen Moran MD Sep 12, 2016 17:16
--- NOTE | 2016-09-12 17:17 | EKG ---
Date Performed: 09/11/2016 Time Performed: 12:55:04 PTAGE: 75 years EKG: Sinus rhythm WITH FIRST DEGREE AV BLOCK ABNORMAL ECG Since PREVIOUS TRACING , no significant change noted PREVIOUS TRACIN09/08/2016 22.30 DOCTOR: Suellen Moran Interpretating Date/Time 09/12/2016 17:15:55
--- NOTE | 2016-09-12 17:17 | EKG ---
Date Performed: 09/12/2016 Time Performed: 02:35:28 PTAGE: 75 years EKG: Sinus rhythm with borderline 1st degree A-V block Possible inferior infarct - age undetermined Anterolateral T wa ve changes are nonspecific Since previous tracing, no significant change noted Abnormal ECG PREVIOUS TRACING : 09/11/2016 17.34 DOCTOR: Suellen Moran Interpretating Date/Time 09/12/2016 17:16:12
--- NOTE | 2016-09-12 17:17 | EKG ---
Date Performed: 09/11/2016 Time Performed: 17:34:08 PTAGE: 75 years EKG: Sinus rhythm MINIMAL ST DEPRESSION BORDERLINE ECG Since PREVIOUS TRACING , no significant change noted PREVIOUS TRACIN09/11/2016 12.55 DOCTOR: Suellen Moran Interpretating Date/Time 09/12/2016 17:16:04
[2016-09-12] MEDS: ALPRAZolam 0.25 MG TAB PO PRN (19:04)
[2016-09-12 19:53] LABS: MYELOPEROXIDASE LESS THAN 1.0 AI (<1.0); PROTEINASE-3 LESS THAN 1.0 AI (<1.0)
[2016-09-12] MEDS ORDERED: METOPROLOL TARTRATE 25 MG TAB PO SCH ×2 (21:00)
[2016-09-13] VITALS (11 sets, daily range): BP systolic 97–149; BP diastolic 53–78; PULSE 67–89; RESP 16–20; TEMP 97.3–98.5; O2SAT 94–98
--- NOTE | 2016-09-13 08:10 | HHI.PR ---
Subjective Remarks no new spells hx afib Objective Vital Signs Date Time Temp Pulse Resp B/P Pulse Ox O2 Delivery O2 Flow Rate FiO2 09/13/16 04:33 97.3 89 16 135/74 96 09/13/16 00:44 98.5 78 18 128/69 96 09/12/16 20:51 97.7 84 20 116/63 96 09/12/16 16:24 99.3 101 20 164/94 95 09/12/16 13:13 97.6 93 20 155/90 98 09/12/16 08:43 98.0 100 20 174/95 98 09/12/16 08:10 92 I/O 09/12/16 09/12/16 09/12/16 09/13/16 09/13/16 09/13/16 07:00 15:00 23:00 07:00 15:00 23:00 Intake Total 709 ml 1086 ml 897 ml Output Total 500 ml 800 ml 600 ml Balance 209 ml -800 ml 1086 ml 297 ml Intake Oral 720 ml IV Total 709 ml 366 ml 897 ml Output Urine Total 500 ml 800 ml 600 ml # Voids 2 # Bowel Movements 2 Result Diagram: 09/12/16 0230 09/12/16 0230 Objective Remarks ox3 r hand nl alert awake nl speech Assessment and Plan Assessment and Plan imp no new spells esr 80 crp and kappa chains and lamda chains 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
[2016-09-13] MEDS: SODIUM CHLORIDE 0.9% FLUSH 10 ML FLUSH IV FLUSH SCH ×2 (08:22→22:56)
[2016-09-13] MEDS: LABETALOL HCL 100 MG TAB PO SCH ×3 (08:24→18:10)
[2016-09-13] MEDS: APIXABAN 5 MG TABLET PO SCH ×2 (08:24→22:56)
[2016-09-13] MEDS ORDERED: CYANOCOBALAMIN 1000 MCG/ML VIAL SQ SCH (09:00)
[2016-09-13 09:45] LABS: BICARBONATE 19.6 MEQ/L (21.0-32.0)
[2016-09-13 09:55] LABS: POTASSIUM 4.3 MEQ/L (3.5-5.1)
[2016-09-13] MEDS ORDERED: SODIUM CHLOR 0.9% 250 ML INJ 250 ML IV ONE (10:15)
--- NOTE | 2016-09-13 11:54 | HHI.NPPN ---
Subjective History of Present Illness The patient is a 75 yo [place] male who presented to this facility 09/08 with complaints of R hand weakness. He was here at this facility just 10 days ago for 4-vessel CABG, discharged on 08/29. While undergoing CABG, he suffered a stroke and came in today as he was concerned he was having another. Was having no other neurological issues. We were consulted for acute renal failure. Presenting SCr of 3.65 that has worsened significantly from discharge on 08/29 at 1.53. Appears baseline renal function 1.2-1.6 according to previous records. States he has been at his usual state of health since his hospital discharge besides R hand weakness that resolved on its own while here in the ED. Denies any NVD. No NSAIDs. Denies any urinary issues. Review of previous imaging (namely CTA on 08/24) showed a L sided hydronephrosis extending to UVJ. THe patient was unaware of this. He has hx of bladder CA that was treated by surgical resection at [facility] about 1 year ago. Scheduled for f/u there in 1 month. CTA also revealed abdominal aneurysm that vascular surgery was consulted about and was supposed to have f/u as outpatient. Interval History Patient was apparently orthostatic this a.m. Otherwise no verbal complaints. Currently receiving IV fluid bolus ordered by primary care physician. Review of Systems General General Remarks Denies any complaints Objective Data Data 09/12/16 09/13/16 18:59 06:59 Intake Total 1086 ml 897 ml Output Total 800 ml 600 ml Balance 286 ml 297 ml Intake Oral 720 ml IV Total 366 ml 897 ml Output Urine Total 800 ml 600 ml Vital Signs Date Time Temp Pulse Resp B/P Pulse Ox O2 Delivery O2 Flow Rate FiO2 09/13/16 10:30 81 109/58 09/13/16 09:56 67 18 97/53 98 09/13/16 08:51 98.4 82 18 149/78 97 09/13/16 04:33 97.3 89 16 135/74 96 09/13/16 00:44 98.5 78 18 128/69 96 09/12/16 20:51 97.7 84 20 116/63 96 09/12/16 16:24 99.3 101 20 164/94 95 09/12/16 13:13 97.6 93 20 155/90 98 -: 09/12/16 0230 09/13/16 0730 Physical Exam General Appearance: No Acute Distress, Comfortable Eyes Eye Exam: Sclera White Pulmonary Resp Exam: Clear Bilaterally, Breath Sounds Equal, No Distress Cardiology CV Exam: Regular, Normal Sinus Rhythm Gastrointestinal/Abdomen GI Exam: Soft, Non-Tender Integumentary Skin Exam: Clear, Warm, Normal Turgor Extremeties Extremities Exam: No Edema Neurologic Neuro Exam: Alert, Awake Assessment/Plan Discussed Condition With: Patient Problem List: (1) Acute kidney failure Plan: Patient's creatinine level has improved slightly since yesterday. Remains be determined whether not this trend will continue however. Noted patient receiving IV fluid bolus. He was encouraged to maintain an adequate fluid intake. Advised RN to recheck orthostatic blood pressure post fluid bolus. If it persists adjustment in blood pressure medication would be indicated. This was discussed with the RN. Medications should be adjusted for the patient's renal decline. Avoid nephrotoxic medications including NSAIDs and iodinated contrast dyes. Gadolinium should be avoided as eGFR <30. (2) Hyperkalemia Plan: Agree with implementation of a low potassium diet. Improved potassium level today. (3) CKD (chronic kidney disease) stage 3, GFR 30-59 ml/min Plan: Renal ultrasound shows changes consistent with CKD with cortical atrophy bilaterally. (4) Hydroureteronephrosis Plan: No hydronephrosis on renal ultrasound this admission. Does need to f/u with his outpatient urologist on discharge (5) TIA (transient ischemic attack) Plan: The indicated to me she was not aware that her may have had a recurrence of an acute cerebrovascular event. I advised her to discuss the situation with neurology to clarify whether or not patient had experienced another TIA and or CVA just prior to this admission. (6) Hypoalbuminemia Plan: As above, check serology (7) Hypertension (8) Anemia Plan: Iron level and iron saturation below normal. Defer further evaluation to primary care physician. (9) CAD (coronary artery disease) Problem Qualifiers (1) TIA (transient ischemic attack): Qualified Code: G45.9 - Transient cerebral ischemia, unspecified type (2) CAD (coronary artery disease): Qualified Code: I25.10 - Coronary artery disease involving [place] coronary artery of [place] heart without angina pectoris Liv Cerda MD Sep 13, 2016 11:54
--- NOTE | 2016-09-13 13:48 | HHI.PR ---
Subjective Remarks Patient states had episode of dizziness earlier upon standing as per RN near syncopal episode bp dropped into the high 90's currently all symptoms have resolved denies cp/sob Objective Vitals Vital Signs Date Time Temp Pulse Resp B/P Pulse Ox O2 Delivery O2 Flow Rate FiO2 09/13/16 12:50 102/61 09/13/16 12:43 97.3 77 16 127/71 98 09/13/16 10:30 81 109/58 09/13/16 09:56 67 18 97/53 98 09/13/16 08:51 98.4 82 18 149/78 97 09/13/16 04:33 97.3 89 16 135/74 96 09/13/16 00:44 98.5 78 18 128/69 96 09/12/16 20:51 97.7 84 20 116/63 96 09/12/16 16:24 99.3 101 20 164/94 95 I/O 09/12/16 09/12/16 09/12/16 09/13/16 09/13/16 09/13/16 06:59 14:59 22:59 06:59 14:59 22:59 Intake Total 709 ml 1086 ml 897 ml Output Total 500 ml 800 ml 600 ml 500 ml Balance 209 ml -800 ml 1086 ml 297 ml -500 ml Intake Oral 720 ml IV Total 709 ml 366 ml 897 ml Output Urine Total 500 ml 800 ml 600 ml 500 ml # Voids 2 # Bowel Movements 2 Result Diagram: 09/12/16 0230 09/13/16 0730 Imaging Last Impressions Head Magnetic Resonance Angiography 09/10/16 1028 Signed Impressions: Service Date/Time: Saturday, September 10, 2016 10:57 - CONCLUSION: 1. Unremarkable MRA examination without evidence for large vessel occlusion, aneurysm, or vascular malformation. Richardson Haney MD Brain MRI 09/10/16 1028 Signed Impressions: Service Date/Time: Saturday, September 10, 2016 10:57 - CONCLUSION: 1. Findings most consistent with new embolic infarcts involving both the anterior and posterior circulation. Richardson Haney MD Carotid Artery Ultrasound 09/09/16 1028 Signed Impressions: Service Date/Time: September 10:43 - CONCLUSION: 1. Moderate visible plaque without hemodynamically significant stenosis identified. No significant change from August 25. Amado Crain MD Renal Ultrasound 09/09/16 0000 Signed Impressions: Service Date/Time: September 15:41 - CONCLUSION: 1. Cortical atrophy with small bilateral renal cysts. No hydronephrosis. Amado Crain MD Head CT 09/08/162250 Signed Impressions: Service Date/Time: Thursday, September 08, 2016 23:41 - CONCLUSION: Stable noncontrast CT with no evidence of hemorrhage or acute infarction. Atrophy and chronic small vessel splenic changes remain. Sanya Cavazos MD Chest X-Ray 09/08/162250 Signed Impressions: Service Date/Time: Thursday, September 08, 2016 23:26 - CONCLUSION: 1. Interval removal of previously noted right internal jugular central venous line. 2. Mild to moderate cardiomegaly with no perihilar edema. 3. Mild scarring and/or atelectasis left lung base. Sanya Cavazos MD Objective Remarks GENERAL: Lying in bed. Appears comfortable. SKIN: Warm and dry. HEAD: Normocephalic. EYES: No scleral icterus. No injection or drainage. NECK: Supple, trachea midline. No JVD or lymphadenopathy. CARDIOVASCULAR: Regular rate and rhythm without murmurs, gallops, or rubs. RESPIRATORY: Breath sounds equal bilaterally. No accessory muscle use. GASTROINTESTINAL: Abdomen soft, non-tender, nondistended. MUSCULOSKELETAL: No cyanosis, or edema. BACK: Nontender without obvious deformity. No CVA tenderness. Procedures none Medications and IVs Current Medications Medications (Trade) Dose Ordered Sig/Awilda Route Start Time Stop Time Status Last Admin (NS Flush) 2 ml UNSCH PRN IV FLUSH 09/09/16 00:45 (NS Flush) 2 ml BID IV FLUSH 09/09/16 09:00 09/11/16 09:16 Naloxone HCl 0.4 mg 0.4 mg UNSCH PRN IV 09/09/16 00:45 (NS 1000 ml Inj) 1,000 ml @ 80 mls/hr [id number] IV 09/09/16 05:45 09/13/16 15:30 (Xanax) 0.25 mg Q6H PRN PO 09/09/16 13:45 09/12/16 19:04 (Pill Splitter) 1 ea UNSCH PRN OTHER 09/09/16 14:00 (Eliquis) 5 mg BID PO 09/10/16 09:00 09/13/16 08:24 (Catapres) 0.1 mg Q6H PRN PO 09/11/16 14:30 09/11/16 23:52 (Trandate) 200 mg TID PO 09/13/16 18:00 09/13/16 18:10 Urinary Catheter: No Vascular Central Line Catheter: No A/P Problem List: (1) Cerebrovascular accident (CVA) due to embolism ICD Code: I63.9 Status: Acute (2) Acute kidney failure ICD Code: N17.9 Status: Acute (3) Uncontrolled hypertension ICD Code: I10 Status: Resolved (4) CKD (chronic kidney disease), stage III ICD Code: N18.3 Status: Chronic (5) Leukocytosis ICD Code: D72.829 Status: Acute (6) Chest pain ICD Code: R07.9 Status: Resolved (7) CAD (coronary artery disease) ICD Code: I25.10 Status: Chronic (8) Hyperkalemia ICD Code: E87.5 Status: Resolved (9) Orthostatic hypotension ICD Code: I95.1 Status: Acute (10) S/P CABG x 3 ICD Code: Z95.1 Status: Acute Assessment and Plan (1) Cerebrovascular accident (CVA) due to embolism Plan: Presented with acute right-sided weakness. Resolved. Acute stroke on MRI as above - embolic Neurology following - increased Eliquos to 5 mg twice daily. BP elevated - patient refusing to take metoprolol 25 mg bid and only taking 1/2 tablet Appreciate physical therapy. (2) Acute kidney failure Plan: Creatinine stable and not improving nephrology following continue to monitor bun/creatinine Discussed case with Dr. Cerda from nephrology. Possible embolic disease to the kidneys suspected with initial eosinophilia on CBC, however complement C3 and C4 normal. 09/13 Creatinine slightly better. Renal ultrasound shows cortical atrophy with small bilateral renal cysts. ESR elevated, high Colma and Lambda chains, GINA negative - will fu nephrology recommendations. (3) Uncontrolled hypertension Plan: Continue amlodipine 10 mg and metoprolol 25 mg po bid. Continue clonidine prn 09/13 Metoprolol discontinued by cardiology and patient started on labetalol 400 mg po TID however patient with orthostatic hypotension. Dc amlodipine and decrease Labetalol dose to 200 mg po TID. PAtient was also given an IV fluid bolus. (4) CKD (chronic kidney disease), stage III Plan: Renal ultrasound shows changes consistent with CKD with cortical atrophy bilaterally. Baseline renal function 1.2 - 1.6. fu nephrology recommendations Continue to monitor BUN/creatinine, avoid nephrotoxins. (5) Leukocytosis Plan: Continue to monitor cbc Likely reactive, no signs of infection. (6) Chest pain Plan: Resolved. Patient has recent CABG. Cardiaz enzymes with elevated troponins.Troponin slightly higher than a troponin obtained on 09/08 which was 0.19. The allergy consulted and recommendations pending. (7) CAD (coronary artery disease) Plan: Continue beta chai, apixaban. (8) Hyperkalemia Plan: Potassium elevated at 5.2 on 85 and went up to 5.3 on 09/12. Likely secondary to decreased renal excretion of potassium. Sp treatment w insulin, D50 and oral Kayexalate. Continue renal diet Resolved. continue to monitor BMP DVT prophylaxis - apixaban Discharge Planning Dc pending stabiliztion of bp, nephrology clearance. Problem Qualifiers (1) CAD (coronary artery disease): Qualified Code: I25.10 - Coronary artery disease involving [place] coronary artery of [place] heart without angina pectoris Vu Sarah MD Sep 13, 2016 13:48
--- NOTE | 2016-09-13 15:06 | PD.CARD.PN ---
Subjective Subjective Remarks Hypotensive episode after morning meds. Improved with small fluid bolus. Patient denies chest pain (Elin Kwok) Objective Medications Current Medications Medications (Trade) Dose Ordered Sig/Awilda Route Start Time Stop Time Status Last Admin (NS Flush) 2 ml UNSCH PRN IV FLUSH 09/09/16 00:45 (NS Flush) 2 ml BID IV FLUSH 09/09/16 09:00 09/11/16 09:16 Naloxone HCl 0.4 mg 0.4 mg UNSCH PRN IV 09/09/16 00:45 (NS 1000 ml Inj) 1,000 ml @ 80 mls/hr [id number] IV 09/09/16 05:45 09/12/16 20:56 (Xanax) 0.25 mg Q6H PRN PO 09/09/16 13:45 09/12/16 19:04 (Pill Splitter) 1 ea UNSCH PRN OTHER 09/09/16 14:00 (Eliquis) 5 mg BID PO 09/10/16 09:00 09/13/16 08:24 (Catapres) 0.1 mg Q6H PRN PO 09/11/16 14:30 09/11/16 23:52 (Trandate) 200 mg TID PO 09/13/16 18:00 Vital Signs / I&O Vital Signs Date Time Temp Pulse Resp B/P Pulse Ox O2 Delivery O2 Flow Rate FiO2 09/13/16 12:50 102/61 09/13/16 12:43 97.3 77 16 127/71 98 09/13/16 10:30 81 109/58 09/13/16 09:56 67 18 97/53 98 09/13/16 08:51 98.4 82 18 149/78 97 09/13/16 04:33 97.3 89 16 135/74 96 09/13/16 00:44 98.5 78 18 128/69 96 09/12/16 20:51 97.7 84 20 116/63 96 09/12/16 16:24 99.3 101 20 164/94 95 I/O 09/12/16 09/12/16 09/12/16 09/13/16 09/13/16 09/13/16 07:00 15:00 23:00 07:00 15:00 23:00 Intake Total 709 ml 1086 ml 897 ml Output Total 500 ml 800 ml 600 ml 500 ml Balance 209 ml -800 ml 1086 ml 297 ml -500 ml Intake Oral 720 ml IV Total 709 ml 366 ml 897 ml Output Urine Total 500 ml 800 ml 600 ml 500 ml # Voids 2 # Bowel Movements 2 Physical Exam GENERAL: Obese elderly male laying in bed, bedside SKIN: Warm and dry. HEAD: Normocephalic. EYES: No scleral icterus. No injection or drainage. NECK: Supple, trachea midline. CARDIOVASCULAR: Midline incision healing well, irreg irreg RESPIRATORY: Breath sounds equal bilaterally. No accessory muscle use. GASTROINTESTINAL: Abdomen soft, non-tender, nondistended. MUSCULOSKELETAL: No cyanosis, or edema. BACK: Nontender without obvious deformity. No CVA tenderness. Laboratory Laboratory Tests Test 09/13/16 07:30 Sodium Level 135 MEQ/L Potassium Level 4.3 MEQ/L Chloride Level 104 MEQ/L Carbon Dioxide Level 19.6 MEQ/L Anion Gap 11 MEQ/L Blood Urea Nitrogen 40 MG/DL Creatinine 3.37 MG/DL Estimat Glomerular Filtration 18 ML/MIN Rate Random Glucose 99 MG/DL Calcium Level 8.5 MG/DL Phosphorus Level 5.3 MG/DL Albumin 2.7 GM/DL Complement C3 161 MG/DL Complement C4 32 MG/DL (Elin Kwok) Assessment and Plan Assessment and Plan Chest pain, troponin elevated likely due to CKD and had recent NSTEMI. Patient attributes chest pain to metoprolol Atrial fibrillation with CVA and TIAs. Patient was on subtherapeutic Eliquis prior to admission ASHD s/p CABG 08/2016 Thoracic and abdominal aortic aneurysms HTN HLD- intolerant of statin therapy Carotid stenosis Acute on chronic renal insufficiency GFR 18 Hallucinations PLAN: Continue eliquis Labetalol decreased, amlodipine stopped Nephrology following. GFR 18 The patient was seen and evaluated by Dr. Moran. (Elin Kwok) Assessment and Plan The exam, history, and the medical decision-making described in the above note were completed with the assistance of the mid-level provider. I reviewed and agree with the findings presented. I attest that I had a [id number] encounter with the patient on the same day, and personally performed and documented my assessment and findings in the medical record. Feels better , d/c metoprolol in case causign hallucinations. (Suellen Moran MD) Elin Kwok Sep 13, 2016 15:06 Suellen Moran MD Sep 15, 2016 14:33
[2016-09-13] MEDS: SODIUM CHLOR 0.9% 1000 ML INJ 1,000 ML IV SCH (15:30)
[2016-09-13 15:48] LABS: ANA SCREEN NEG (NEG)
[2016-09-14] VITALS (8 sets, daily range): BP systolic 112–163; BP diastolic 58–78; PULSE 78–99; RESP 16–20; TEMP 97.6–98.5; O2SAT 93–96
[2016-09-14] MEDS: SODIUM CHLOR 0.9% 1000 ML INJ 1,000 ML IV SCH ×2 (04:00→12:50)
[2016-09-14] MEDS: LABETALOL HCL 100 MG TAB PO SCH ×3 (08:46→17:32)
[2016-09-14] MEDS: APIXABAN 5 MG TABLET PO SCH ×2 (08:46→20:08)
[2016-09-14] MEDS: SODIUM CHLORIDE 0.9% FLUSH 10 ML FLUSH IV FLUSH SCH ×2 (08:47→20:08)
[2016-09-14 09:19] LABS: AUTOMATED NEUTROPHIL # 5.1 TH/MM3 (1.8-7.7); BASOPHIL # 0.1 TH/MM3 (0-0.2); BASOPHIL % 0.8 % (0.0-2.0); EOSINOPHIL # 3.6 TH/MM3 (0-0.4); EOSINOPHIL % 31.8 % (0.0-4.0); HEMATOCRIT 33.3 % (39.0-51.0); HEMO FLAGS DIFF FINAL; LYMPH % 14.6 % (9.0-44.0); LYMPHOCYTE # 1.7 TH/MM3 (1.0-4.8); MEAN CELL VOLUME 95.2 FL (80.0-100.0); MEAN CORPUSCULAR HEMOGLOBIN 30.9 PG (27.0-34.0); MEAN CORPUSCULAR HGB CONC 32.5 % (32.0-36.0); MONO % 7.5 % (0.0-8.0); NEUT % 45.3 % (16.0-70.0); PLATELET COUNT 379 TH/MM3 (150-450); RED CELL DISTRIBUTION WIDTH 14.2 % (11.6-17.2); WHITE BLOOD COUNT 11.3 TH/MM3 (4.0-11.0)
[2016-09-14 09:35] LABS: BICARBONATE 21.2 MEQ/L (21.0-32.0); POTASSIUM 4.2 MEQ/L (3.5-5.1)
--- NOTE | 2016-09-14 10:57 | HHI.PR ---
Subjective Remarks Patient is at bedside very upset and threatening to leave AMA. States that "nothing is being down to my and he is lying in bed" patient denies cp/sob feels weak, states tried to get up in am but it was very difficult for him. denies dizziness. Objective Vitals Vital Signs Date Time Temp Pulse Resp B/P Pulse Ox O2 Delivery O2 Flow Rate FiO2 09/14/16 10:03 99 09/14/16 08:00 98.4 89 17 163/74 96 09/14/16 04:00 98.5 86 20 143/78 93 09/14/16 00:00 97.8 89 20 140/69 94 09/13/16 22:00 84 09/13/16 21:00 84 09/13/16 20:00 98.3 83 20 128/67 94 09/13/16 17:11 98.2 84 16 121/65 96 09/13/16 12:50 102/61 09/13/16 12:43 97.3 77 16 127/71 98 I/O 09/13/16 09/13/16 09/13/16 09/14/16 09/14/16 09/14/16 07:00 15:00 23:00 07:00 15:00 23:00 Intake Total 897 ml 440 ml Output Total 600 ml 500 ml 660 ml Balance 297 ml -500 ml 440 ml -660 ml Intake Oral 440 ml IV Total 897 ml Output Urine Total 600 ml 500 ml 660 ml # Voids 1 1 Result Diagram: 09/14/16 0630 09/14/16 0630 Imaging Last Impressions Head Magnetic Resonance Angiography 09/10/16 1028 Signed Impressions: Service Date/Time: Saturday, September 10, 2016 10:57 - CONCLUSION: 1. Unremarkable MRA examination without evidence for large vessel occlusion, aneurysm, or vascular malformation. Richardson Haney MD Brain MRI 09/10/16 1028 Signed Impressions: Service Date/Time: Saturday, September 10, 2016 10:57 - CONCLUSION: 1. Findings most consistent with new embolic infarcts involving both the anterior and posterior circulation. Richardson Haney MD Carotid Artery Ultrasound 09/09/16 1028 Signed Impressions: Service Date/Time: September 10:43 - CONCLUSION: 1. Moderate visible plaque without hemodynamically significant stenosis identified. No significant change from August 25. Amado Crain MD Renal Ultrasound 09/09/16 0000 Signed Impressions: Service Date/Time: September 15:41 - CONCLUSION: 1. Cortical atrophy with small bilateral renal cysts. No hydronephrosis. Amado Crain MD Head CT 09/08/162250 Signed Impressions: Service Date/Time: Thursday, September 08, 2016 23:41 - CONCLUSION: Stable noncontrast CT with no evidence of hemorrhage or acute infarction. Atrophy and chronic small vessel splenic changes remain. Sanya Cavazos MD Chest X-Ray 09/08/162250 Signed Impressions: Service Date/Time: Thursday, September 08, 2016 23:26 - CONCLUSION: 1. Interval removal of previously noted right internal jugular central venous line. 2. Mild to moderate cardiomegaly with no perihilar edema. 3. Mild scarring and/or atelectasis left lung base. Sanya Cavazos MD Objective Remarks GENERAL: Lying in bed. Appears comfortable. SKIN: Warm and dry. HEAD: Normocephalic. EYES: No scleral icterus. No injection or drainage. NECK: Supple, trachea midline. No JVD or lymphadenopathy. CARDIOVASCULAR: Regular rate and rhythm without murmurs, gallops, or rubs. RESPIRATORY: Breath sounds equal bilaterally. No accessory muscle use. GASTROINTESTINAL: Abdomen soft, non-tender, nondistended. MUSCULOSKELETAL: No cyanosis, or edema. BACK: Nontender without obvious deformity. No CVA tenderness. Procedures none Medications and IVs Current Medications Medications (Trade) Dose Ordered Sig/Awilda Route Start Time Stop Time Status Last Admin (NS Flush) 2 ml UNSCH PRN IV FLUSH 09/09/16 00:45 (NS Flush) 2 ml BID IV FLUSH 09/09/16 09:00 09/14/16 08:47 Naloxone HCl 0.4 mg 0.4 mg UNSCH PRN IV 09/09/16 00:45 (NS 1000 ml Inj) 1,000 ml @ 80 mls/hr [id number] IV 09/09/16 05:45 09/13/16 15:30 (Xanax) 0.25 mg Q6H PRN PO 09/09/16 13:45 09/12/16 19:04 (Pill Splitter) 1 ea UNSCH PRN OTHER 09/09/16 14:00 (Eliquis) 5 mg BID PO 09/10/16 09:00 09/14/16 08:46 (Catapres) 0.1 mg Q6H PRN PO 09/11/16 14:30 09/11/16 23:52 (Trandate) 200 mg TID PO 09/13/16 18:00 09/14/16 08:46 Urinary Catheter: No Vascular Central Line Catheter: No A/P Problem List: (1) Cerebrovascular accident (CVA) due to embolism ICD Code: I63.9 Status: Acute (2) Acute kidney failure ICD Code: N17.9 Status: Acute (3) Uncontrolled hypertension ICD Code: I10 Status: Resolved (4) CKD (chronic kidney disease), stage III ICD Code: N18.3 Status: Chronic (5) Leukocytosis ICD Code: D72.829 Status: Acute (6) Chest pain ICD Code: R07.9 Status: Resolved (7) CAD (coronary artery disease) ICD Code: I25.10 Status: Chronic (8) Hyperkalemia ICD Code: E87.5 Status: Resolved (9) Orthostatic hypotension ICD Code: I95.1 Status: Resolved (10) S/P CABG x 3 ICD Code: Z95.1 Status: Acute (11) Generalized weakness ICD Code: R53.1 Status: Acute Plan: Continue PT. OOB to chair. Discussed w RN. Assessment and Plan (1) Cerebrovascular accident (CVA) due to embolism Plan: Presented with acute right-sided weakness. Resolved. Acute stroke on MRI as above - embolic Neurology following - increased Eliquos to 5 mg twice daily. BP elevated - patient refusing to take metoprolol 25 mg bid and only taking 1/2 tablet Appreciate physical therapy. (2) Acute kidney failure Plan: Creatinine stable and not improving nephrology following continue to monitor bun/creatinine Discussed case with Dr. Cerda from nephrology. Possible embolic disease to the kidneys suspected with initial eosinophilia on CBC, however complement C3 and C4 normal. 09/13 Creatinine slightly better. Renal ultrasound shows cortical atrophy with small bilateral renal cysts. ESR elevated, high [place] and Lambda chains, GINA negative - will fu nephrology recommendations. 8/8 discussed the case extensively with Dr. Cerda from nephrology. The patient' s creatinine is slightly worst today when compared to yesterday's. The creatinine went up from 3.37-3.66. Patient however has a good urine output. Likely septic back on creatinine possibly could be attributed to episode of orthostatic hypotension but the patient experienced yesterday. There is still no clear etiology for the acute kidney injury however very possibly secondary to cholesterol emboli given that the patient has some eosinophilia but negative urine eosinophils. There is a CTA of the abdomen obtained on 08/24/16 which reports a moderate left hydroureteronephrosis extending to the UVJ without radiopaque renal calculi or discernible mass on CT. However, a repeat ultrasound of the kidneys on 09/09/16 does not show hydronephrosis or hydroureter nephrosis. However given the patient's past medical history and worsening history of present illness he was discussed with nephrology and we agreed on consulting urology. Discussed with nephrology about elevated free Light chains and lambda light chains which could be elevated and acute renal failure, however as per nephrology ratio remains normal, so elevation was likely related to renal failure. Immunologic fixation still pending. (3) Uncontrolled hypertension Plan: Continue amlodipine 10 mg and metoprolol 25 mg po bid. Continue clonidine prn 09/13 Metoprolol discontinued by cardiology and patient started on labetalol 400 mg po TID however patient with orthostatic hypotension. Dc amlodipine and decrease Labetalol dose to 200 mg po TID. PAtient was also given an IV fluid bolus. (4) CKD (chronic kidney disease), stage III Plan: Renal ultrasound shows changes consistent with CKD with cortical atrophy bilaterally. Baseline renal function 1.2 - 1.6. fu nephrology recommendations Continue to monitor BUN/creatinine, avoid nephrotoxins. (5) Leukocytosis Plan: Continue to monitor cbc Likely reactive, no signs of infection. WBC continues to trend down. (6) Chest pain Plan: Resolved. Patient has recent CABG. Cardiaz enzymes with elevated troponins.Troponin slightly higher than a troponin obtained on 09/08 which was 0.19. Etiology consulted. Cardiology adjusted BP meds. (7) CAD (coronary artery disease) Plan: Continue beta chai, apixaban. (8) Hyperkalemia Plan: Potassium elevated at 5.2 on and went up to 5.3 on 8/6. Likely secondary to decreased renal excretion of potassium. Sp treatment w insulin, D50 and oral Kayexalate. Continue renal diet Resolved. continue to monitor BMP (9) orthostatic hypotension Plan: Amlodipine has been discontinued. Labetalol dose was decreased from 400 mg by mouth 3 times a day to 200 mg by mouth 3 times a day. Blood pressure seems to be improved, no further episodes of hypotension. Check orthostatic blood pressure. DVT prophylaxis - apixaban Discharge Planning Dc pending stabiliztion of bp, improvement of kidney function, urology consult Problem Qualifiers (1) CAD (coronary artery disease): Qualified Code: I25.10 - Coronary artery disease involving [place] coronary artery of [place] heart without angina pectoris Vu Sarah MD Sep 14, 2016 10:57
--- NOTE | 2016-09-14 11:18 | HHI.NPPN ---
Subjective History of Present Illness The patient is a 75 yo [place] male who presented to this facility 09/08 with complaints of R hand weakness. He was here at this facility just 10 days ago for 4-vessel CABG, discharged on 08/29. While undergoing CABG, he suffered a stroke and came in today as he was concerned he was having another. Was having no other neurological issues. We were consulted for acute renal failure. Presenting SCr of 3.65 that has worsened significantly from discharge on 08/29 at 1.53. Appears baseline renal function 1.2-1.6 according to previous records. States he has been at his usual state of health since his hospital discharge besides R hand weakness that resolved on its own while here in the ED. Denies any NVD. No NSAIDs. Denies any urinary issues. Review of previous imaging (namely CTA on 08/24) showed a L sided hydronephrosis extending to UVJ. THe patient was unaware of this. He has hx of bladder CA that was treated by surgical resection at [facility] about 1 year ago. Scheduled for f/u there in 1 month. CTA also revealed abdominal aneurysm that vascular surgery was consulted about and was supposed to have f/u as outpatient. Interval History Pt in NAD. present in room. Both appear agitated today. (Radha Hagen) Review of Systems General General Remarks Denies any complaints (Radha Hagen) Objective Data Data 09/13/16 09/14/16 18:59 06:59 Intake Total 440 ml Output Total 500 ml 660 ml Balance -60 ml -660 ml Intake Oral 440 ml Output Urine Total 500 ml 660 ml # Voids 2 Vital Signs Date Time Temp Pulse Resp B/P Pulse Ox O2 Delivery O2 Flow Rate FiO2 09/14/16 10:03 99 09/14/16 08:00 98.4 89 17 163/74 96 09/14/16 04:00 98.5 86 20 143/78 93 09/14/16 00:00 97.8 89 20 140/69 94 09/13/16 22:00 84 09/13/16 21:00 84 09/13/16 20:00 98.3 83 20 128/67 94 09/13/16 17:11 98.2 84 16 121/65 96 09/13/16 12:50 102/61 09/13/16 12:43 97.3 77 16 127/71 98 (Radha Hagen) -: 09/14/16 0630 09/14/16 0630 Imaging Last Impressions Head Magnetic Resonance Angiography 09/10/16 1028 Signed Impressions: Service Date/Time: Saturday, September 10, 2016 10:57 - CONCLUSION: 1. Unremarkable MRA examination without evidence for large vessel occlusion, aneurysm, or vascular malformation. Richardson Haney MD Brain MRI 09/10/16 1028 Signed Impressions: Service Date/Time: Saturday, September 10, 2016 10:57 - CONCLUSION: 1. Findings most consistent with new embolic infarcts involving both the anterior and posterior circulation. Richardson Haney MD Carotid Artery Ultrasound 09/09/16 1028 Signed Impressions: Service Date/Time: September 10:43 - CONCLUSION: 1. Moderate visible plaque without hemodynamically significant stenosis identified. No significant change from August 25. Amado Crain MD Renal Ultrasound 09/09/16 0000 Signed Impressions: Service Date/Time: September 15:41 - CONCLUSION: 1. Cortical atrophy with small bilateral renal cysts. No hydronephrosis. Amado Crain MD Head CT 09/08/162250 Signed Impressions: Service Date/Time: Thursday, September 08, 2016 23:41 - CONCLUSION: Stable noncontrast CT with no evidence of hemorrhage or acute infarction. Atrophy and chronic small vessel splenic changes remain. Sanya Cavazos MD Chest X-Ray 09/08/162250 Signed Impressions: Service Date/Time: Thursday, September 08, 2016 23:26 - CONCLUSION: 1. Interval removal of previously noted right internal jugular central venous line. 2. Mild to moderate cardiomegaly with no perihilar edema. 3. Mild scarring and/or atelectasis left lung base. Sanya Cavazos MD Medication Review Current Medications Medications (Trade) Dose Ordered Sig/Awilda Route Start Time Stop Time Status Last Admin (NS Flush) 2 ml UNSCH PRN IV FLUSH 09/09/16 00:45 (NS Flush) 2 ml BID IV FLUSH 09/09/16 09:00 09/14/16 08:47 Naloxone HCl 0.4 mg 0.4 mg UNSCH PRN IV 09/09/16 00:45 (NS 1000 ml Inj) 1,000 ml @ 80 mls/hr [id number] IV 09/09/16 05:45 09/13/16 15:30 (Xanax) 0.25 mg Q6H PRN PO 09/09/16 13:45 09/12/16 19:04 (Pill Splitter) 1 ea UNSCH PRN OTHER 09/09/16 14:00 (Eliquis) 5 mg BID PO 09/10/16 09:00 09/14/16 08:46 (Catapres) 0.1 mg Q6H PRN PO 09/11/16 14:30 09/11/16 23:52 (Trandate) 200 mg TID PO 09/13/16 18:00 09/14/16 08:46 (Radha Hagen) Physical Exam General Appearance: No Acute Distress, Comfortable (Radha Hagen) Eyes Eye Exam: Sclera White (Radha Hagen) Pulmonary Resp Exam: Clear Bilaterally, Breath Sounds Equal, No Distress (Radha Hagen) Cardiology CV Exam: Normal Sinus Rhythm, Irregular (Radha Hagen) Gastrointestinal/Abdomen GI Exam: Soft, Non-Tender (Radha Hagen) Integumentary Skin Exam: Clear, Warm, Normal Turgor (Radha Hagen) Extremeties Extremities Exam: No Edema (Radha Hagen) Neurologic Neuro Exam: Alert, Awake (Radha Hagen) Assessment/Plan Discussed Condition With: Patient Problem List: (1) Acute kidney failure Plan: SCr thaddeus today. IVF not running when I entered the room. Uncertain if there has been continued disruption in IV. May have developed an ATN from recent cardiac event and CVA. Question of cholesterol embolic disease as well considering persistent eosinophilia. Also within differential is acute interstitial nephritis. Serology is still pending (namely SPEP, ANSELMO). K/L light chain ratio is normal ( despite elevation of each individual component which is expected with renal disease) Status of severe renal impairment was discussed with both the patient and his . They are talking about potentially signing out AMA, but this remains to be seen. Advised there is no distinct treatment for ATN not AIN, just time and IV fluids. It is recommended for continued hospitalization until stabilization of renal functions. Case was discussed with primary. Consideration for urology opinion given L sided hydronephrosis that was detected on CTA done during August admission (no hydro noted on the renal/blader US). Medications should be adjusted for the patient's renal decline. Avoid nephrotoxic medications including NSAIDs and iodinated contrast dyes. Gadolinium should be avoided as eGFR <30. (2) Hyperkalemia Plan: Improved Continue on low K+ diet (3) CKD (chronic kidney disease) stage 3, GFR 30-59 ml/min Plan: Renal ultrasound shows changes consistent with CKD with cortical atrophy bilaterally. (4) Hydroureteronephrosis Plan: No hydronephrosis on renal ultrasound this admission. Does need to f/u with his outpatient urologist on discharge (5) TIA (transient ischemic attack) Plan: The indicated to me she was not aware that her may have had a recurrence of an acute cerebrovascular event. I advised her to discuss the situation with neurology to clarify whether or not patient had experienced another TIA and or CVA just prior to this admission. (6) Hypoalbuminemia Plan: As above, check serology (7) Hypertension (8) Anemia Plan: Iron level and iron saturation below normal. Defer further evaluation to primary care physician. (9) CAD (coronary artery disease) (Radha Hagen) Plan Patient's creatinine level has deteriorated again. Eosinophilia persisting. Primary consideration at this point in time given history of recent angiogram prior to admission is acute renal sufficiency secondary to atheroembolic disease. Renal insufficiency can manifest several weeks after an episode of atheroembolic disease. Depressed Complement levels and presence of urine eosinophils may or may not be present and I usually evident shortly after recurrence. Absence of these findings do not exclude the diagnosis at this time. As discussed with primary care physician I would recommend an ophthalmology consult to determine whether not the patient has evidence of retinal cholesterol crystal emboli. If these are present a renal biopsy will not be necessary. If the patient has sustained atheroembolic disease to the kidney unfortunately his renal insufficiency may be progressive to end-stage renal disease. Patient's with cholesterol embolic disease also tend to have a poorer prognosis overall. Renal sound this admission did not show evidence of hydronephrosis although CTA done during prior admission showed unilateral evidence. Repeat renal ultrasound at this time in view of worsening renal indices and get urological opinion also. I discussed all the above with the patient and his and they are agreeable. They are considering transferring to another facility or leaving AMA. I advised against leaving AMA given severity of his renal insufficiency with as discussed with them. They were advised that the patient is on the verge of developing renal failure with associated consequences. If they do decide to leave the hospital AMA they were advised to go to another medical Center immediately. The exam, history, and the medical decision-making described in the above note were completed with the assistance of the YADIRA. I reviewed and agree with the findings presented. I attest that I had a [id number] encounter with the patient on the same day, and personally performed and documented my assessment and findings in the medical record. (Liv Cerda MD) Problem Qualifiers (1) TIA (transient ischemic attack): Qualified Code: G45.9 - Transient cerebral ischemia, unspecified type (2) CAD (coronary artery disease): Qualified Code: I25.10 - Coronary artery disease involving [place] coronary artery of [place] heart without angina pectoris Radha Hagen Sep 14, 2016 11:18 Liv Cerda MD Sep 14, 2016 11:37
--- NOTE | 2016-09-14 12:31 | PD.CONS ---
History of Present Illness Service Ophthalmology Consult Requested By Reason for Consult rule out cholesterol emboli Primary Care Physician Yaya Patrick M.D. Diagnoses: History of Present Illness 75 y/o male with a history of CAD, HTN, HLD colon cancer, bladder cancer, [place], CABG 10 days ago,and CVA presented to the ED with complaints of feeling like he was having a another stroke with right hand weakness. Ophthalmology consulted by Nephrology to determine if there are cholesterol emboli to the retina. Patient states he has had blurry vision in both eyes since his CABG. No significant ocular history. Past Family Social History Allergies: Coded Allergies: HMG-CoA Reductase Inhibitors (Verified Allergy, Severe, 08/25/16) PATIENT REPORTS HE CAN NOT TAKE ANY STATINS PERIOD. HE LOSES USE OF HIS LEGS Lipitor (Verified Allergy, Severe, back pain and chest pain, 08/24/16) Simvastatin (Unverified Allergy, Severe, body aches, 08/24/16) Physical Exam Vital Signs Vital Signs Date Time Temp Pulse Resp B/P Pulse Ox O2 Delivery O2 Flow Rate FiO2 09/14/16 10:03 99 09/14/16 08:00 98.4 89 17 163/74 96 09/14/16 04:00 98.5 86 20 143/78 93 09/14/16 00:00 97.8 89 20 140/69 94 09/13/16 22:00 84 09/13/16 21:00 84 09/13/16 20:00 98.3 83 20 128/67 94 09/13/16 17:11 98.2 84 16 121/65 96 09/13/16 12:50 102/61 09/13/16 12:43 97.3 77 16 127/71 98 Physical Exam Va cc at near OD 20/200, OS 20/200 EOM full OU, no diplopia CVF full OU Pupils 2-1 no APD OU IOP normal to palpation OU Anterior exam OD - normal eyelid, C/S W&Q, K clear, AC deep, pupil round, lens clear OS - normal eyelid, C/S W&Q, K clear, AC deep, pupil round, lens clear Dilated exam OD - ON s/p/f, ves normal, vit clear, retina flat OS - ON s/p/f, ves normal, vit clear, retina flat Laboratory Laboratory Tests Test 09/14/16 06:30 White Blood Count 11.3 Red Blood Count 3.50 Hemoglobin 10.8 Hematocrit 33.3 Mean Corpuscular Volume 95.2 Mean Corpuscular Hemoglobin 30.9 Mean Corpuscular Hemoglobin 32.5 Concent Red Cell Distribution Width 14.2 Platelet Count 379 Mean Platelet Volume 7.8 Neutrophils (%) (Auto) 45.3 Lymphocytes (%) (Auto) 14.6 Monocytes (%) (Auto) 7.5 Eosinophils (%) (Auto) 31.8 Basophils (%) (Auto) 0.8 Neutrophils # (Auto) 5.1 Lymphocytes # (Auto) 1.7 Monocytes # (Auto) 0.9 Eosinophils # (Auto) 3.6 Basophils # (Auto) 0.1 CBC Comment DIFF FINAL Differential Comment Sodium Level 135 Potassium Level 4.2 Chloride Level 104 Carbon Dioxide Level 21.2 Anion Gap 10 Blood Urea Nitrogen 36 Creatinine 3.66 Estimat Glomerular Filtration 16 Rate Random Glucose 98 Calcium Level 8.6 Phosphorus Level 4.4 Albumin 2.8 Date/Time Procedure Status Source Growth 09/12/16 01:00 Stool Occult Blood (JAME) - Final Complete Stool Stool HEMOCCULT NEGATIVE Result Diagram: 09/14/1662909/14/16629 Assessment and Plan Problem List: (1) CAD (coronary artery disease) Status: Chronic Plan: No cholesterol emboli seen on exam. Nsihi Rivera MD Sep 14, 2016 12:30
--- NOTE | 2016-09-14 14:48 | PD.CARD.PN ---
Subjective Subjective Remarks The patient feels better. Ambulating in the room. Has nausea. (Elin Kwok) Subjective Remarks The exam, history, and the medical decision-making described in the above note were completed with the assistance of the mid-level provider. I reviewed and agree with the findings presented. I attest that I had a [id number] encounter with the patient on the same day, and personally performed and documented my assessment and findings in the medical record. Feel s better d/c soon (Suellen Moran MD) Objective Medications Current Medications Medications (Trade) Dose Ordered Sig/Awilda Route Start Time Stop Time Status Last Admin (NS Flush) 2 ml UNSCH PRN IV FLUSH 09/09/16 00:45 (NS Flush) 2 ml BID IV FLUSH 09/09/16 09:00 09/14/16 08:47 Naloxone HCl 0.4 mg 0.4 mg UNSCH PRN IV 09/09/16 00:45 (NS 1000 ml Inj) 1,000 ml @ 100 mls/hr Q10H IV 09/09/16 05:45 09/13/16 15:30 (Xanax) 0.25 mg Q6H PRN PO 09/09/16 13:45 09/12/16 19:04 (Pill Splitter) 1 ea UNSCH PRN OTHER 09/09/16 14:00 (Eliquis) 5 mg BID PO 09/10/16 09:00 09/14/16 08:46 (Catapres) 0.1 mg Q6H PRN PO 09/11/16 14:30 09/11/16 23:52 (Trandate) 200 mg TID PO 09/13/16 18:00 09/14/16 12:49 Vital Signs / I&O Vital Signs Date Time Temp Pulse Resp B/P Pulse Ox O2 Delivery O2 Flow Rate FiO2 09/14/16 12:00 79 135/69 09/14/16 12:00 97.6 81 18 141/70 95 09/14/16 12:00 82 112/67 09/14/16 10:03 99 09/14/16 08:00 98.4 89 17 163/74 96 09/14/16 04:00 98.5 86 20 143/78 93 09/14/16 00:00 97.8 89 20 140/69 94 09/13/16 22:00 84 09/13/16 21:00 84 09/13/16 20:00 98.3 83 20 128/67 94 09/13/16 17:11 98.2 84 16 121/65 96 I/O 09/13/16 09/13/16 09/13/16 09/14/16 09/14/16 09/14/16 07:00 15:00 23:00 07:00 15:00 23:00 Intake Total 897 ml 440 ml Output Total 600 ml 500 ml 660 ml Balance 297 ml -500 ml 440 ml -660 ml Intake Oral 440 ml IV Total 897 ml Output Urine Total 600 ml 500 ml 660 ml Bladder Scan Volume Amount 25 ml # Voids 1 1 Physical Exam GENERAL: Obese elderly male walking in room, bedside SKIN: Warm and dry. HEAD: Normocephalic. EYES: No scleral icterus. No injection or drainage. NECK: Supple, trachea midline. CARDIOVASCULAR: Midline incision healing well, irreg irreg RESPIRATORY: Breath sounds equal bilaterally. No accessory muscle use. GASTROINTESTINAL: Abdomen soft, non-tender, nondistended. MUSCULOSKELETAL: No cyanosis, or edema. BACK: Nontender without obvious deformity. No CVA tenderness. Laboratory Laboratory Tests Test 09/14/16 06:30 White Blood Count 11.3 TH/MM3 Red Blood Count 3.50 MIL/MM3 Hemoglobin 10.8 GM/DL Hematocrit 33.3 % Mean Corpuscular Volume 95.2 FL Mean Corpuscular Hemoglobin 30.9 PG Mean Corpuscular Hemoglobin 32.5 % Concent Red Cell Distribution Width 14.2 % Platelet Count 379 TH/MM3 Mean Platelet Volume 7.8 FL Neutrophils (%) (Auto) 45.3 % Lymphocytes (%) (Auto) 14.6 % Monocytes (%) (Auto) 7.5 % Eosinophils (%) (Auto) 31.8 % Basophils (%) (Auto) 0.8 % Neutrophils # (Auto) 5.1 TH/MM3 Lymphocytes # (Auto) 1.7 TH/MM3 Monocytes # (Auto) 0.9 TH/MM3 Eosinophils # (Auto) 3.6 TH/MM3 Basophils # (Auto) 0.1 TH/MM3 CBC Comment DIFF FINAL Differential Comment Sodium Level 135 MEQ/L Potassium Level 4.2 MEQ/L Chloride Level 104 MEQ/L Carbon Dioxide Level 21.2 MEQ/L Anion Gap 10 MEQ/L Blood Urea Nitrogen 36 MG/DL Creatinine 3.66 MG/DL Estimat Glomerular Filtration 16 ML/MIN Rate Random Glucose 98 MG/DL Calcium Level 8.6 MG/DL Phosphorus Level 4.4 MG/DL Albumin 2.8 GM/DL (Elin Kwok) Assessment and Plan Assessment and Plan Chest pain, troponin elevated likely due to CKD and had recent NSTEMI. Patient attributes chest pain to metoprolol Atrial fibrillation with CVA and TIAs. 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 SBP goal < 130, however orthostatic positive. The patient is at an increased risk for falls. Nephrology following. The patient will be clear from discharge once blood pressures stabilize. The patient was seen and evaluated by Dr. Moran. (Elin Kwok) Elin Kwok Sep 14, 2016 14:48 Suellen Moran MD Sep 15, 2016 14:35
[2016-09-15] VITALS (8 sets, daily range): BP systolic 110–145; BP diastolic 56–76; PULSE 89–112; RESP 18–20; TEMP 98–99.6; O2SAT 90–96
[2016-09-15] MEDS: SODIUM CHLOR 0.9% 1000 ML INJ 1,000 ML IV SCH ×3 (01:28→16:37)
--- NOTE | 2016-09-15 09:09 | HHI.PR ---
Subjective Remarks no new spells hx afib Objective Vital Signs Date Time Temp Pulse Resp B/P Pulse Ox O2 Delivery O2 Flow Rate FiO2 09/15/16 08:43 98.9 112 20 136/72 90 134/76 136/72 09/15/16 05:49 105 09/15/16 05:00 98.6 101 18 137/66 94 09/15/16 00:30 98.1 92 18 145/76 94 09/14/16 20:30 98.4 78 17 138/67 93 09/14/16 19:37 88 09/14/16 16:00 98.2 82 16 121/58 95 09/14/16 12:00 79 135/69 09/14/16 12:00 97.6 81 18 141/70 95 09/14/16 12:00 82 112/67 09/14/16 10:03 99 I/O 09/14/16 09/14/16 09/14/16 09/15/16 09/15/16 09/15/16 07:00 15:00 23:00 07:00 15:00 23:00 Intake Total 120 ml Output Total 660 ml 200 ml 450 ml Balance -660 ml -200 ml -330 ml Intake Oral 120 ml Output Urine Total 660 ml 200 ml 450 ml Bladder Scan Volume Amount 25 ml # Voids 1 1 2 # Bowel Movements 1 Result Diagram: 09/14/16 0630 09/14/16 0630 Objective Remarks awake alert vff moves all well Assessment and Plan Assessment and Plan imp no new spells esr 80 crp and kappa chains and lamda chains 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 shabbir neg on eliquis 5 bid now b12 shots DONE renal issues i ordered some inflammation labs SOME ABN HERE PLEASE ADDRESS ABN KAPPA PROTEINS i dw med team today I WILL SIGNOFF again his vision change due to oleft occipital region cva he had on admission they will do heme consult for above esr inc and abn proteins Reymundo Jeffries MD Sep 15, 2016 09:09
[2016-09-15] MEDS: APIXABAN 5 MG TABLET PO SCH ×2 (09:26→22:54)
[2016-09-15] MEDS: LABETALOL HCL 100 MG TAB PO SCH ×3 (09:26→17:31)
[2016-09-15] MEDS: SODIUM CHLORIDE 0.9% FLUSH 10 ML FLUSH IV FLUSH SCH ×2 (09:26→21:00)
--- NOTE | 2016-09-15 10:47 | PD.CONS ---
[facility] Service Urology Consult Requested By Dr. Reyes Reason for Consult History left sided hydroureteronephrosis Primary Care Physician Yaya Patrick M.D. Diagnosis: (1) Cerebrovascular accident (CVA) due to embolism ICD Code: I63.9 (2) Acute kidney failure ICD Code: N17.9 (3) Uncontrolled hypertension ICD Code: I10 (4) CKD (chronic kidney disease), stage III ICD Code: N18.3 (5) Leukocytosis ICD Code: D72.829 (6) Chest pain ICD Code: R07.9 (7) CAD (coronary artery disease) ICD Code: I25.10 (8) Hyperkalemia ICD Code: E87.5 (9) Orthostatic hypotension ICD Code: I95.1 (10) S/P CABG x 3 ICD Code: Z95.1 (11) Generalized weakness ICD Code: R53.1 History of Present Illness 75-year-old gentleman with history bladder cancer who was admitted for further workup and management of right sided weakness. During his present hospitalization the patient was noted to have elevation of the serum creatinine significantly increased from his baseline and a renal ultrasound study was ordered. The renal ultrasound study done was treated atrophic changes to both kidneys as well as bilateral small renal cysts. There was no evidence of hydronephrosis. A CT scan from August 24 of this year previously demonstrated moderate left hydroureteronephrosis tracking down to the left ureterovesical junction. At the time of consultation the patient denied flank pain or any difficulty voiding. He was treated for bladder cancer approximately one year ago and is scheduled to follow up there in one month. Review of Systems Constitutional: DENIES: Fever, Chills Eyes: COMPLAINS OF: Blurred vision Cardiovascular: DENIES: Chest pain Gastrointestinal: DENIES: Abdominal pain Genitourinary: DENIES: Hematuria Musculoskeletal: DENIES: Back pain Except as stated in HPI: all other systems reviewed are Neg Past Family Social History Past Medical History Bladder cancer Status post CVA Hypertension Coronary artery disease Nature fibrillation Hypertension Hyperlipidemia Colon cancer Abdominal aortic aneurysm Past Surgical History Status post transient urethral resection bladder tumor Status post cardiac ablative procedure Status post colon resection line status post abdominal aortic aneurysm repair Reported Medications Refer to EMR Allergies: Coded Allergies: HMG-CoA Reductase Inhibitors (Verified Allergy, Severe, 08/25/16) PATIENT REPORTS HE CAN NOT TAKE ANY STATINS PERIOD. HE LOSES USE OF HIS LEGS Lipitor (Verified Allergy, Severe, back pain and chest pain, 08/24/16) Simvastatin (Unverified Allergy, Severe, body aches, 08/24/16) Active Ordered Medications Refer to EMR Family History Reviewed and noncontributory Social History Former smoker who quit almost 20 years ago Alcohol use on occasion Physical Exam Vital Signs Date Time Temp Pulse Resp B/P Pulse Ox O2 Delivery O2 Flow Rate FiO2 09/15/16 08:43 98.9 112 20 136/72 90 134/76 136/72 09/15/16 05:49 105 09/15/16 05:00 98.6 101 18 137/66 94 09/15/16 00:30 98.1 92 18 145/76 94 09/14/16 20:30 98.4 78 17 138/67 93 09/14/16 19:37 88 09/14/16 16:00 98.2 82 16 121/58 95 09/14/16 12:00 79 135/69 09/14/16 12:00 97.6 81 18 141/70 95 09/14/16 12:00 82 112/67 Physical Exam GENERAL: This is a well-nourished, well-developed patient, in no apparent distress. SKIN: No rashes, ecchymoses or lesions. Cool and dry. HEAD: Atraumatic. Normocephalic. No temporal or scalp tenderness. EYES: Pupils equal round and reactive. Extraocular motions intact. No scleral icterus. No injection or drainage. ENT: Nose without bleeding, purulent drainage or septal hematoma. Throat without erythema, tonsillar hypertrophy or exudate. Uvula midline. Airway patent. NECK: Trachea midline. No JVD or lymphadenopathy. Supple, nontender, no meningeal signs. GASTROINTESTINAL: Abdomen soft, non-tender, nondistended. No hepato-splenomegaly , or palpable masses. No guarding. GENITOURINARY: No CVA tenderness. Bladder not distended. MUSCULOSKELETAL: Extremities without clubbing, cyanosis, or edema. No joint tenderness, effusion, or edema noted. No calf tenderness. Negative Homans sign bilaterally. NEUROLOGICAL: Awake and alert. Date/Time Procedure Status Source Growth 09/12/16 01:00 Stool Occult Blood (JAME) - Final Complete Stool Stool HEMOCCULT NEGATIVE Result Diagram: 09/14/1662909/14/16 0630 Imaging Last Impressions Head Magnetic Resonance Angiography 09/10/16 1028 Signed Impressions: Service Date/Time: Saturday, September 10, 2016 10:57 - CONCLUSION: 1. Unremarkable MRA examination without evidence for large vessel occlusion, aneurysm, or vascular malformation. Richardson Haney MD Brain MRI 09/10/16 1028 Signed Impressions: Service Date/Time: Saturday, September 10, 2016 10:57 - CONCLUSION: 1. Findings most consistent with new embolic infarcts involving both the anterior and posterior circulation. Richardson Haney MD Carotid Artery Ultrasound 09/09/16 1028 Signed Impressions: Service Date/Time: September 10:43 - CONCLUSION: 1. Moderate visible plaque without hemodynamically significant stenosis identified. No significant change from August 25. Amado Crain MD Renal Ultrasound 09/09/16 0000 Signed Impressions: Service Date/Time: September 15:41 - CONCLUSION: 1. Cortical atrophy with small bilateral renal cysts. No hydronephrosis. Amado Crain MD Head CT 09/08/162250 Signed Impressions: Service Date/Time: Thursday, September 08, 2016 23:41 - CONCLUSION: Stable noncontrast CT with no evidence of hemorrhage or acute infarction. Atrophy and chronic small vessel splenic changes remain. Sanya Cavazos MD Chest X-Ray 09/08/162250 Signed Impressions: Service Date/Time: Thursday, September 08, 2016 23:26 - CONCLUSION: 1. Interval removal of previously noted right internal jugular central venous line. 2. Mild to moderate cardiomegaly with no perihilar edema. 3. Mild scarring and/or atelectasis left lung base. Sanya Cavazos MD Assessment and Plan Assessment and Plan Urologic impression: #1 history left hydroureteronephrosis now resolved, may have possibly been related to recent stone passage #2 no evidence of obstructive uropathy on current ultrasonic evaluation #3 history bladder cancer status post transurethral resection Recommendations: #1 no further urologic intervention indicated #2 agree with nephrology evaluation #3 patient to keep his follow up appointments at [facility] regarding bladder cancer history surveillance. Problem Qualifiers (1) CAD (coronary artery disease): Qualified Code: I25.10 - Coronary artery disease involving coquille coronary artery of coquille heart without angina pectoris Anoop Kaufman MD Sep 15, 2016 10:46
[2016-09-15 10:51] LABS: MEAN CELL VOLUME 94.1 FL (80.0-100.0); MEAN CORPUSCULAR HEMOGLOBIN 31.6 PG (27.0-34.0); MEAN CORPUSCULAR HGB CONC 33.6 % (32.0-36.0); PLATELET COUNT 314 TH/MM3 (150-450); RED BLOOD COUNT 3.19 MIL/MM3 (4.50-5.90); REVIEW FLAG FINAL; WHITE BLOOD COUNT 11.1 TH/MM3 (4.0-11.0)
[2016-09-15 11:18] LABS: BICARBONATE 16.7 MEQ/L (21.0-32.0); POTASSIUM 4.5 MEQ/L (3.5-5.1)
--- NOTE | 2016-09-15 13:07 | HHI.PR ---
Subjective Remarks Patient seen with his at bedside. He reports that he voided this morning but his reports she did not witness this. We discussed his renal functions are essentially the same compared to yesterday. Patient reports that he is feeling better overall. Objective Vitals Vital Signs Date Time Temp Pulse Resp B/P Pulse Ox O2 Delivery O2 Flow Rate FiO2 09/15/16 12:36 98.0 103 20 133/72 96 09/15/16 08:43 98.9 112 20 136/72 90 134/76 136/72 09/15/16 05:49 105 09/15/16 05:00 98.6 101 18 137/66 94 09/15/16 00:30 98.1 92 18 145/76 94 09/14/16 20:30 98.4 78 17 138/67 93 09/14/16 19:37 88 09/14/16 16:00 98.2 82 16 121/58 95 I/O 09/14/16 09/14/16 09/14/16 09/15/16 09/15/16 09/15/16 07:00 15:00 23:00 07:00 15:00 23:00 Intake Total 120 ml Output Total 660 ml 200 ml 450 ml Balance -660 ml -200 ml -330 ml Intake Oral 120 ml Output Urine Total 660 ml 200 ml 450 ml Bladder Scan Volume Amount 25 ml # Voids 1 1 2 # Bowel Movements 1 Result Diagram: 09/15/1630 09/15/16 0830 Imaging Last Impressions Head Magnetic Resonance Angiography 09/10/16 1028 Signed Impressions: Service Date/Time: Saturday, September 10, 2016 10:57 - CONCLUSION: 1. Unremarkable MRA examination without evidence for large vessel occlusion, aneurysm, or vascular malformation. Richardson Haney MD Brain MRI 09/10/16 1028 Signed Impressions: Service Date/Time: Saturday, September 10, 2016 10:57 - CONCLUSION: 1. Findings most consistent with new embolic infarcts involving both the anterior and posterior circulation. Richardson Haney MD Carotid Artery Ultrasound 09/09/16 1028 Signed Impressions: Service Date/Time: September 10:43 - CONCLUSION: 1. Moderate visible plaque without hemodynamically significant stenosis identified. No significant change from August 25. Amado Crain MD Renal Ultrasound 09/09/16 0000 Signed Impressions: Service Date/Time: September 15:41 - CONCLUSION: 1. Cortical atrophy with small bilateral renal cysts. No hydronephrosis. Amado Crain MD Head CT 09/08/162250 Signed Impressions: Service Date/Time: Thursday, September 08, 2016 23:41 - CONCLUSION: Stable noncontrast CT with no evidence of hemorrhage or acute infarction. Atrophy and chronic small vessel splenic changes remain. Sanya Cavazos MD Chest X-Ray 09/08/162250 Signed Impressions: Service Date/Time: Thursday, September 08, 2016 23:26 - CONCLUSION: 1. Interval removal of previously noted right internal jugular central venous line. 2. Mild to moderate cardiomegaly with no perihilar edema. 3. Mild scarring and/or atelectasis left lung base. Sanya Cavazos MD Objective Remarks GENERAL: Obese male in no apparent distress. CARDIOVASCULAR: Regular rate and rhythm without murmurs, gallops, or rubs. RESPIRATORY: Clear to auscultation. Breath sounds equal bilaterally. No wheezes , rales, or rhonchi. GASTROINTESTINAL: Abdomen soft, non-tender, nondistended. Normal active bowel sounds MUSCULOSKELETAL: Extremities without clubbing, cyanosis, or edema. NEURO: Alert & Oriented x4 to person, place, time, situation. Moves all ext x4 Procedures none A/P Problem List: (1) Cerebrovascular accident (CVA) due to embolism ICD Code: I63.9 Status: Acute (2) Acute kidney failure ICD Code: N17.9 Status: Acute (3) Uncontrolled hypertension ICD Code: I10 Status: Resolved (4) CKD (chronic kidney disease), stage III ICD Code: N18.3 Status: Chronic (5) Leukocytosis ICD Code: D72.829 Status: Acute (6) Chest pain ICD Code: R07.9 Status: Resolved (7) CAD (coronary artery disease) ICD Code: I25.10 Status: Chronic (8) Hyperkalemia ICD Code: E87.5 Status: Resolved (9) Orthostatic hypotension ICD Code: I95.1 Status: Resolved (10) S/P CABG x 3 ICD Code: Z95.1 Status: Acute (11) Generalized weakness ICD Code: R53.1 Status: Acute Assessment and Plan 75 Y/O male with: Cerebrovascular accident (CVA) due to embolism Presented with acute right-sided weakness. Resolved. Acute stroke on MRI as above - embolic Neurology following - increased Eliquos to 5 mg twice daily. BP elevated - patient refusing to take metoprolol 25 mg bid and only taking 1/[address] Jeffries, current vision changes are expected given the location of his stroke. Agree to consult Hematology regarding elevated light chains Acute on chronic kidney disease. Baseline 1.2-1.6 Creatinine stable but not improving yet. nephrology following. Bicarb added today. Patient is not cleared from a Nephrology standpoint. Seen by Urology. No obstructive Uropathy per Urology. continue to monitor renal functions. Monitor I/O. Advised the patient to use the urinal. RAUL RN. Elevated light chains, normal ratio: - Could be related to ARF, normal ratio. Will consult Hematology for assistance and whether or not further workup is indicated. Hypertension - BP stable on labetalol 200 mg po TID CKD (chronic kidney disease), stage III Renal ultrasound shows changes consistent with CKD with cortical atrophy bilaterally. Baseline renal function 1.2 - 1.6. fu nephrology recommendations Continue to monitor BUN/creatinine, avoid nephrotoxins. Chest pain Resolved. Patient has recent CABG. Cardiaz enzymes with elevated troponins.Troponin slightly higher than a troponin obtained on 09/08 which was 0.19. Cardiology following. Cleared from Cardiac standpoint. DVT prophylaxis - apixaban Problem Qualifiers (1) CAD (coronary artery disease): Qualified Code: I25.10 - Coronary artery disease involving torres martinez coronary artery of torres martinez heart without angina pectoris Eduardo Desir MD Sep 15, 2016 13:07
--- NOTE | 2016-09-15 14:05 | PD.CARD.PN ---
Subjective Subjective Remarks Patient denies recurrent lightheadedness upon standing. Denies CP. No recurrent TIA symptoms. (Elin Kwok) Subjective Remarks The exam, history, and the medical decision-making described in the above note were completed with the assistance of the mid-level provider. I reviewed and agree with the findings presented. I attest that I had a [id number] encounter with the patient on the same day, and personally performed and documented my assessment and findings in the medical record. (Suellen Moran MD) Objective Medications Current Medications Medications (Trade) Dose Ordered Sig/Awlida Route Start Time Stop Time Status Last Admin (NS Flush) 2 ml UNSCH PRN IV FLUSH 09/09/16 00:45 (NS Flush) 2 ml BID IV FLUSH 09/09/16 09:00 09/15/16 09:26 Naloxone HCl 0.4 mg 0.4 mg UNSCH PRN IV 09/09/16 00:45 (NS 1000 ml Inj) 1,000 ml @ 100 mls/hr Q10H IV 09/09/16 05:45 09/15/16 12:50 (Xanax) 0.25 mg Q6H PRN PO 09/09/16 13:45 09/12/16 19:04 (Pill Splitter) 1 ea UNSCH PRN OTHER 09/09/16 14:00 (Eliquis) 5 mg BID PO 09/10/16 09:00 09/15/16 09:26 (Catapres) 0.1 mg Q6H PRN PO 09/11/16 14:30 09/11/16 23:52 (Trandate) 200 mg TID PO 09/13/16 18:00 09/15/16 12:50 Vital Signs / I&O Vital Signs Date Time Temp Pulse Resp B/P Pulse Ox O2 Delivery O2 Flow Rate FiO2 09/15/16 12:36 98.0 103 20 133/72 96 09/15/16 08:43 98.9 112 20 136/72 90 134/76 136/72 09/15/16 05:49 105 09/15/16 05:00 98.6 101 18 137/66 94 09/15/16 00:30 98.1 92 18 145/76 94 09/14/16 20:30 98.4 78 17 138/67 93 09/14/16 19:37 88 09/14/16 16:00 98.2 82 16 121/58 95 I/O 09/14/16 09/14/16 09/14/16 09/15/16 09/15/16 09/15/16 07:00 15:00 23:00 07:00 15:00 23:00 Intake Total 120 ml Output Total 660 ml 200 ml 450 ml Balance -660 ml -200 ml -330 ml Intake Oral 120 ml Output Urine Total 660 ml 200 ml 450 ml Bladder Scan Volume Amount 25 ml # Voids 1 1 2 # Bowel Movements 1 Physical Exam GENERAL: Obese elderly male sitting on the side of the bed, bedside SKIN: Warm and dry. HEAD: Normocephalic. EYES: No scleral icterus. No injection or drainage. NECK: Supple, trachea midline. CARDIOVASCULAR: Midline incision healing well, irreg irreg RESPIRATORY: Breath sounds equal bilaterally. No accessory muscle use. GASTROINTESTINAL: Abdomen soft, non-tender, nondistended. MUSCULOSKELETAL: No cyanosis, or edema. BACK: Nontender without obvious deformity. No CVA tenderness. Laboratory Laboratory Tests Test 09/15/16 08:30 White Blood Count 11.1 TH/MM3 Red Blood Count 3.19 MIL/MM3 Hemoglobin 10.1 GM/DL Hematocrit 30.0 % Mean Corpuscular Volume 94.1 FL Mean Corpuscular Hemoglobin 31.6 PG Mean Corpuscular Hemoglobin 33.6 % Concent Red Cell Distribution Width 14.0 % Platelet Count 314 TH/MM3 Mean Platelet Volume 8.0 FL Erythrocyte Sedimentation Rate 71 mm/hr Sodium Level 136 MEQ/L Potassium Level 4.5 MEQ/L Chloride Level 106 MEQ/L Carbon Dioxide Level 16.7 MEQ/L Anion Gap 13 MEQ/L Blood Urea Nitrogen 31 MG/DL Creatinine 3.66 MG/DL Estimat Glomerular Filtration 16 ML/MIN Rate Random Glucose 88 MG/DL Calcium Level 8.3 MG/DL Phosphorus Level 3.6 MG/DL Albumin 2.7 GM/DL (Elin Kwok) Assessment and Plan Assessment and Plan Chest pain, troponin elevated likely due to CKD and had recent NSTEMI. Patient attributes chest pain to metoprolol. No recurrent pain since admission. Atrial fibrillation with CVA and TIAs. Patient was on subtherapeutic Eliquis prior to admission. 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 BP and HR are good. Nephrology following. The patient is clear from a cardiac standpoint for discharge. We will follow him up in the office in 2-3 weeks. The patient was seen and evaluated by Dr. Moran. (Elin Kwok) Elin Kwok Sep 15, 2016 14:05 Suellen Moran MD Sep 15, 2016 14:37
--- NOTE | 2016-09-15 18:18 | HHI.NPPN ---
Subjective History of Present Illness The patient is a 75 yo [place] male who presented to this facility 09/08 with complaints of R hand weakness. He was here at this facility just 10 days ago for 4-vessel CABG, discharged on 08/29. While undergoing CABG, he suffered a stroke and came in today as he was concerned he was having another. Was having no other neurological issues. We were consulted for acute renal failure. Presenting SCr of 3.65 that has worsened significantly from discharge on 08/29 at 1.53. Appears baseline renal function 1.2-1.6 according to previous records. States he has been at his usual state of health since his hospital discharge besides R hand weakness that resolved on its own while here in the ED. Denies any NVD. No NSAIDs. Denies any urinary issues. Review of previous imaging (namely CTA on 08/24) showed a L sided hydronephrosis extending to UVJ. THe patient was unaware of this. He has hx of bladder CA that was treated by surgical resection at [facility] about 1 year ago. Scheduled for f/u there in 1 month. CTA also revealed abdominal aneurysm that vascular surgery was consulted about and was supposed to have f/u as outpatient. Interval History The patient voiced no concerns today present in the room (Radha Hagen) Review of Systems General Constitutional: Fatigue General Remarks Denies any complaints (Radha Hagen) Objective Data Data 09/14/16 09/15/16 19:00 07:00 Intake Total 120 ml Output Total 650 ml Balance -530 ml Intake Oral 120 ml Output Urine Total 650 ml Bladder Scan Volume Amount 25 ml # Voids 3 # Bowel Movements 1 Vital Signs Date Time Temp Pulse Resp B/P Pulse Ox O2 Delivery O2 Flow Rate FiO2 09/15/16 16:21 99.5 91 20 110/56 96 09/15/16 12:36 98.0 103 20 133/72 96 09/15/16 08:43 98.9 112 20 136/72 90 134/76 136/72 09/15/16 05:49 105 09/15/16 05:00 98.6 101 18 137/66 94 09/15/16 00:30 98.1 92 18 145/76 94 09/14/16 20:30 98.4 78 17 138/67 93 09/14/16 19:37 88 (Radha Hagen) -: 09/15/16 0830 09/15/16 0830 Imaging Last Impressions Head Magnetic Resonance Angiography 09/10/16 1028 Signed Impressions: Service Date/Time: Saturday, September 10, 2016 10:57 - CONCLUSION: 1. Unremarkable MRA examination without evidence for large vessel occlusion, aneurysm, or vascular malformation. Richardson Haney MD Brain MRI 09/10/16 1028 Signed Impressions: Service Date/Time: Saturday, September 10, 2016 10:57 - CONCLUSION: 1. Findings most consistent with new embolic infarcts involving both the anterior and posterior circulation. Richardson Haney MD Carotid Artery Ultrasound 09/09/16 1028 Signed Impressions: Service Date/Time: September 10:43 - CONCLUSION: 1. Moderate visible plaque without hemodynamically significant stenosis identified. No significant change from August 25. Amado Crain MD Renal Ultrasound 09/09/16 0000 Signed Impressions: Service Date/Time: September 15:41 - CONCLUSION: 1. Cortical atrophy with small bilateral renal cysts. No hydronephrosis. Amado Crain MD Head CT 09/08/162250 Signed Impressions: Service Date/Time: Thursday, September 08, 2016 23:41 - CONCLUSION: Stable noncontrast CT with no evidence of hemorrhage or acute infarction. Atrophy and chronic small vessel splenic changes remain. Sanya Cavazos MD Chest X-Ray 09/08/162250 Signed Impressions: Service Date/Time: Thursday, September 08, 2016 23:26 - CONCLUSION: 1. Interval removal of previously noted right internal jugular central venous line. 2. Mild to moderate cardiomegaly with no perihilar edema. 3. Mild scarring and/or atelectasis left lung base. Sanya Cavazos MD Medication Review Current Medications Medications (Trade) Dose Ordered Sig/Awilda Route Start Time Stop Time Status Last Admin (NS Flush) 2 ml UNSCH PRN IV FLUSH 09/09/16 00:45 (NS Flush) 2 ml BID IV FLUSH 09/09/16 09:00 09/15/16 09:26 Naloxone HCl 0.4 mg 0.4 mg UNSCH PRN IV 09/09/16 00:45 (NS 1000 ml Inj) 1,000 ml @ 100 mls/hr Q10H IV 09/09/16 05:45 09/15/16 16:37 (Xanax) 0.25 mg Q6H PRN PO 09/09/16 13:45 09/12/16 19:04 (Pill Splitter) 1 ea UNSCH PRN OTHER 09/09/16 14:00 (Eliquis) 5 mg BID PO 09/10/16 09:00 09/15/16 09:26 (Catapres) 0.1 mg Q6H PRN PO 09/11/16 14:30 09/11/16 23:52 (Trandate) 200 mg TID PO 09/13/16 18:00 09/15/16 17:31 (Radha Hagen) Physical Exam General Appearance: No Acute Distress, Comfortable (Radha Hagen) Eyes Eye Exam: Sclera White (Radha Hagen) Pulmonary Resp Exam: Clear Bilaterally, Breath Sounds Equal, No Distress (Radha Hagen) Cardiology CV Exam: Normal Sinus Rhythm, Irregular (Radha Hagen) Gastrointestinal/Abdomen GI Exam: Soft, Non-Tender (Radha Hagen) Integumentary Skin Exam: Clear, Warm, Normal Turgor (Radha Hagen) Extremeties Extremities Exam: Trace Edema (bilat ankles) (Radha Hagen) Neurologic Neuro Exam: Alert, Awake (Radha Hagen) Assessment/Plan Discussed Condition With: Patient Problem List: (1) Acute kidney failure Plan: SCr stable at 3.66 Primary consideration at this point in time given history of recent angiogram prior to admission is acute renal sufficiency secondary to atheroembolic disease. Ophthalmology consultation reviewed. No evidence of cholesterol crystal emboli by funduscopic exam, however, this does not exclude the potential diagnosis of arteriosclerotic embolism. Urological consultation reviewed and they do not believe there is an obstructive uropathy Discussed with the patient and his about proceeding with kidney biopsy for definitive diagnosis. They were provided an educational handout. State they wish to think about it and discuss with the family. They were advised that even if the do decide to proceed with tissue sampling, it may not change the course of treatment, especially if this confirms the suspected diagnosis. They were counseled about the risks of kidney biopsy including bleeding, infection, AV fistula formation, and . They were also advised that if they do wish to proceed with the biopsy, we would have to coordinate with neurology regarding anticoagulation as this would have to be held prior to doing biopsy. The seems fairly set on having the patient do to [facility]. He is not cleared from a renal standpoint to be discharged yet. He is acidotic, so he will be started on po bicarb. Would like at least another 24-48h of stability with correction of acid/base status before he would be cleared from nephrology POV, even if they do not desire to proceed with kidney biopsy. Continue IVF, but slow rate as he is developing some ankle edema. Encouraged po intake. Medications should be adjusted for the patient's renal decline. Avoid nephrotoxic medications including NSAIDs and iodinated contrast dyes. Gadolinium should be avoided as eGFR 30. (2) Hyperkalemia Plan: Improved Continue on low K+ diet (3) CKD (chronic kidney disease) stage 3, GFR 30-59 ml/min Plan: Renal ultrasound shows changes consistent with CKD with cortical atrophy bilaterally. (4) Hydroureteronephrosis Plan: Urology consult noted f/u with outpatient urologist (5) TIA (transient ischemic attack) Plan: The indicated to me she was not aware that her may have had a recurrence of an acute cerebrovascular event. I advised her to discuss the situation with neurology to clarify whether or not patient had experienced another TIA and or CVA just prior to this admission. (6) Hypoalbuminemia Plan: Likely related to malnourishment. SPEP, ANSELMO, K/L within normal limits (7) Hypertension (8) Anemia Plan: Iron level and iron saturation below normal. Defer further evaluation to primary care physician. (9) CAD (coronary artery disease) Plan ADDENDUM The patient's is requesting a potential [id number] transfer to [place]. Will defer this to the primary doctor. Advised he may not be a candidate for transfer and the other facility would have to accept the transfer. (Radha Hagen) Plan The exam, history, and the medical decision-making described in the above note were completed with the assistance of the YADIRA. I reviewed and agree with the findings presented. (Liv Cerda MD) Problem Qualifiers (1) TIA (transient ischemic attack): Qualified Code: G45.9 - Transient cerebral ischemia, unspecified type (2) CAD (coronary artery disease): Qualified Code: I25.10 - Coronary artery disease involving huslia coronary artery of huslia heart without angina pectoris Radha Hagen Sep 15, 2016 18:18 Liv Cerda MD Sep 16, 2016 17:18
--- NOTE | 2016-09-15 22:11 | MB ---
cc: YOLANDA MORALES DATE OF CONSULTATION 09/15/2016 REASON FOR CONSULTATION Elevated kappa lambda light chains. PATIENT PROFILE The patient is a 75-year-old white male. He is . He was once. He was born in [place]. He states he has lived in [place] for 10 years. He lives alone. He has two children and a daughter who lives in [facility] and a son who lives in [place]. Please disregard this, it is an error. MD SERGE Coughlin/KK /7:46 PM /10:05 PM
--- NOTE | 2016-09-15 22:56 | MB ---
cc: YOLANDA MORALES DATE OF CONSULTATION 09/15/16 REASON FOR CONSULTATION Elevated free kappa and lambda light chains. PATIENT PROFILE The patient is a 75-year-old male. He is a poor historian. He is and lives with his . He has two children, both daughters. He was born in [place]. He stopped smoking 16 years ago and states he had smoked a pack per week. Alcohol intake he tells me is infrequent. HISTORY OF PRESENT ILLNESS The patient is a 75-year-old male with significant medical problems. He was admitted to the hospital because of chest pain. He has had coronary artery bypass surgery grafting. He has had a stroke. He had a colon cancer without recurrence and a bladder cancer treated with a TURP. He had a pacemaker in the past. He has had atrial fibrillation. During the course of his evaluation in the hospital he had a serum for free kappa lambda light chain of 142 with a normal value being 3.3-19.4 and a serum free lambda light chain of 93 with normal values being 5.7-26.3. The free kappa lambda light chain ratio was normal at 1.53. Other tests on September 10, 2016 consist of an IgG level of 962 which is normal. IgA level 423 which is normal. IgM level of 71 which is normal. A serum immunoelectrophoresis shows no abnormal band. A serum protein electrophoresis likewise shows no abnormal band. He has never had any bone destructive lesions. PAST SURGICAL HISTORY 1. Coronary artery bypass grafting August 27, 2016. 2. Laparoscopic-assisted right colectomy 08/26/2011 for adenocarcinoma pathologic T1 N0 M0. 3. History of bladder cancer treated with cystectomy. 4. Previous history of cardiac pacemaker which was removed. 5. History of aortic aneurysm repair. PAST MEDICAL HISTORY 1. Coronary artery disease with bypass surgery. 2. Previous history of atrial fibrillation. 3. History of colon cancer without recurrence. 4. History of bladder cancer without recurrence. 5. Aortic aneurysm. 6. Peripheral vascular disease. 7. Hypertension. 8. Chronic renal failure. MEDICATIONS PRIOR TO ADMISSION 1. Xanax. 2. Eliquis. 3. Catapres. 4. Labetalol. ALLERGIES LIPITOR, SIMVASTATIN. LABORATORY DATA Laboratory tests on 09/15/2016 hemoglobin 10, hematocrit 30, white count 11,000, platelets 314,000. On 09/15 BUN 31, creatinine is 3.66, estimated GFR 16 ml, albumin is 2.7. ROS: weakness, fatigue, chest pain, and poor memory PHYSICAL EXAMINATION GENERAL: Reveals a gentleman, appears chronically ill, is not a good historian. He was not sure he was even in the hospital when I came in. VITAL SIGNS: Blood pressure was 110/60, respiratory rate 20, pulse 90, afebrile. O2 sat 96%. HEENT: Head is normocephalic. Sclerae and conjunctivae are normal. HEART: Regular rhythm. LUNGS: Clear. ABDOMEN: Without hepatosplenomegaly. EXTREMITIES: Trace edema. MUSCULOSKELETAL: No bone pain. NEUROLOGIC: generalized weakness. ?mild weakness left side ASSESSMENT The patient is a 75-year-old male who has an elevated free kappa light chain of 142 and elevated lambda light chain of 93 with a normal free kappa lambda ratio of 1.5. This is not pathologic. The reason for the elevation in the free kappa and lambda light chain is the renal failure. His BUN is 31, creatinine is 3.66 and the GFR is 16 ml. The free kappa and lambda light chains are excreted by the kidney and this explains the elevation and also the fact that we have a normal ratio. In addition to the above the patient has a serum protein electrophoresis and serum immunoelectrophoresis showing no monoclonal protein. His hemoglobin on admission was 11.7, hematocrit was 35 and given the degree of renal failure this is a reasonable hemoglobin/hematocrit. Therefore, in summary, the elevated free kappa and lambda light chain is not meaningful and is a result of the renal failure. MD SERGE Coughlin/NANCY /7:49 PM /10:36 PM BRYAN
[2016-09-15] MEDS: SODIUM BICARBONATE 650 MG TAB PO SCH (22:59)
[2016-09-16] VITALS (19 sets, daily range): BP systolic 110–159; BP diastolic 60–87; PULSE 90–104; RESP 20–34; TEMP 97.4–99.4; O2SAT 77–99
[2016-09-16] MEDS ORDERED: FUROSEMIDE 40 MG/4 ML VIAL IV PUSH ONE ×2 (05:45→12:00)
[2016-09-16 05:46] LABS: BLOOD GAS BASE EXCESS -8.3 mmol/L (-2-2); BLOOD GAS CARBOXYHEMOGLOBIN 1.8 % (0-4); BLOOD GAS HCO3 17 mmol/L (22-26); BLOOD GAS METHEMOGLOBIN 0.8 % (0-2); BLOOD GAS O2 HGB SATURATION 96 % (90-100); BLOOD GAS OXYGEN CONTENT 13.1 Vol % (12.0-20.0); BLOOD GAS PCO2 33 mmHg (38-42); BLOOD GAS PO2 117 mmHg (61-120); BLOOD GAS TOTAL HGB 9.6 G/DL (12.0-16.0); CRITICAL VALUE NO; DRAW SITE LT RADIAL; LITER FLOW 15 L/M; NUMBER OF ARTERIAL PUNCTURES 1; OXYGEN DEVICE NRB MASK; STAT YES; TEMP CORR TO 98.6; ULNAR PULSE PRESENT
[2016-09-16] MEDS ORDERED: SODIUM BICARBONATE 8.4% INJ 50 MEQ/50 ML SYR IV PUSH ONE ×2 (06:00→17:00)
[2016-09-16] MEDS: SODIUM BICARBONATE 650 MG TAB PO SCH ×3 (06:00→20:27)
--- NOTE | 2016-09-16 06:07 | HHI.PR ---
Addendum to Inpatient Note Addendum Reason: Additional Documentation Additional Information Rapid response was called on this patient as patient was noted to be quite dyspneic with respiratory rate around 30. Came to see patient at the bedside stat. Chart reviewed. Patient is known to me from his initial hospitalization date. Patient was being managed here for CVA, acute renal failure. He has had CABG done about 10 days ago. On examination, patient is in acute respiratory distress. Using respiratory accessory muscles. On nonrebreather, saturating about 98%. However even with minimal exertion, his O2 sat would drop. Both nursing staff and patient reports that he has been urinating well. Denies fever. Heart rate is regular, no murmur appreciated. No calf asymmetry. No edema. Abdomen is soft and nontender. No murmur appreciated. No suprapubic tenderness. On lung exam: Bilateral rales. Lower extremity: No evidence of edema/asymmetry. Neurologic: Awake, alert, oriented. Full neuro exam cannot be performed as patient is in acute distress. Impression: Acute respiratory failuresecondary to fluid overload CVA Acute renal failure CADstatus post CABG recent Plan: Chest x-ray stat done. Personally reviewed. No evidence of pneumothorax/ pleural effusion. However patient does have significant pulmonary edema with pulmonary venous congestion. ABG stat done. Reviewed. Metabolic acidosiswith respiratory compensation. Give Lasix 40 mg IV 1 dose now. would likely need further diuresis. Stop IV fluids. BiPAP 12/5FiO2 40%. Transfer patient to ICU for close monitoring. This patient has life-threatening acute respiratory illness which would need to be evaluated by the pipe changer. He was evaluated at the bedside by the pipe changer. We'll transfer care to pipe changer for critical care management. DVT prophylaxisLovenox. GI prophylaxis with pantoprazole. critical care time 30min Kenya Weber MD Sep 16, 2016 06:07
--- NOTE | 2016-09-16 06:12 | HHI.FPPN ---
Addendum to progress note ADDENDUM Reason for addendum: Additonal documentation Additional information S: At 0515 hours Radha Jain and Gwen were paged for Hal[facility] at [facility] 5 Rm [id number] for pt w/decreased O2 sat @ 89% and SOB. Pt w/CHF, CAD, Afib and acute renal failure w/Cr @ 3.66. Halicat nurse placed rebreather mask with supplemental O2 @ 15L / 100% to correct O2 sat to 96-97% and ordered CXR and ABG prior to our arrival. Shortly after arrival, Dr Weber arrived and took over management. O: Vital signs: RR 34, P 96, BP 140/80, initial O2 sat 89% Physical exam not performed as hospitalist intervened ABG Test 09/16/16 05:31 Blood Gas HCO3 17 L mmol/L Blood Gas Base Excess -8.3 L mmol/L Blood Gas Oxygen Saturation 96 % Arterial Blood pH 7.32 L Arterial Blood Partial 33 L mmHg Pressure CO2 Arterial Blood Partial 117 mmHg Pressure O2 Arterial Blood Oxygen Content 13.1 Vol % Arterial Blood 1.8 % Carboxyhemoglobin Arterial Blood Methemoglobin 0.8 % Blood Gas Hemoglobin 9.6 L G/DL Oxygen Delivery Device NRB MASK Blood Gas Liter Flow 15 L/M CXR: (not read) with patchy infiltrate bilaterally and diaphragm not visualized likely pleural effusion and fluid overload. A/P: 75 YO male w/hypoxia, increased WOB and respiratory distress w/CHF likely to fluid overload. - Supplemental O2 @ 15L/min 100% - ABG - CXR - Lasix - Band Lining Bander at bedside to manage Júnior Hidalgo MD R1 Sep 16, 2016 06:12
--- NOTE | 2016-09-16 06:17 | RADRPT ---
EXAM DATE/TIME: 09/16/2016 05:45 [facility] COMPARISON: CTA THORACIC ABDOMINAL AORTA W 3D RECON, August 24, 2016, 15:47. CHEST SINGLE AP, September 08, 2016, 23: 26. INDICATIONS : Shortness of breath MEDICAL HISTORY : Hypertension. Cardiovascular disease Carcinoma, bladder. CVA SURGICAL HISTORY : CABG Carotid endarterectomy. Coronary artery stent. Pacemaker placement/removal, abdominal aorta repa ir. ENCOUNTER: Initial ACUITY: 1 day PAIN SCORE: Non-responsive. LOCATION: Bilateral chest FINDINGS: Cardiomegaly with interstitial prominence and patchy upper lobe airspace disease now seen. There is l eft lower lobe airspace disease again noted. CONCLUSION: Worsening appearance of the chest. Ajay Prabhakar MD on September 16, 2016 at 6:15 Board Certified Radiologist. This report was verified electronically.
--- NOTE | 2016-09-16 06:22 | PD.CONS ---
[facility] Service Critical Care Medicine Consult Requested By [facility] Reason for Consult Hypoxemic Respiratory Failure Primary Care Physician Yaya Patrick M.D. History of Present Illness 75 y/o man now about 4 weeks following CABG complicated by CVA. Presented back 08/28 with new onset right arm weakness. Hospital course has been complicated by CKD and fluid overload. We have attempted BiPAP for several hours but he remains in distress and although oxygenation is acceptable work of breathing is excessive. Worrisome increasing metabolic acidosis. Past Family Social History Allergies: Coded Allergies: HMG-CoA Reductase Inhibitors (Verified Allergy, Severe, 08/25/16) PATIENT REPORTS HE CAN NOT TAKE ANY STATINS PERIOD. HE LOSES USE OF HIS LEGS Lipitor (Verified Allergy, Severe, back pain and chest pain, 08/24/16) Simvastatin (Unverified Allergy, Severe, body aches, 08/24/16) Past Medical History Past Medical History CVA while in surgery 10 days ago, with some left sided weakness HTN CAD Afib with ablation Hypertension Hyperlipidemia Colon cancer status post resection AAA status post repair Chest aortic aneurysm ascending about 5 cm per the patient Bladder Cancer Past Surgical History CABG 10 days ago Ablation for Afib Colectomy Carotid endarterectomy Bladder cancer removal Reported Medications Reported Meds & Active Scripts Active Thera M Plus (Multivitamins/Minerals Therapeutic) 1 Tab 1 Tab PO DAILY Metoprolol Tartrate 25 Mg Tab 12.5 Mg PO BID Dok (Docusate Sodium) 100 Mg Cap 100 Mg PO BID PRN Eliquis (Apixaban) 2.5 Mg Tab 2.5 Mg PO BID Reported Oxycodone (Oxycodone HCl) 5 Mg Cap Mg PO Q4H PRN Aspirin 325 Mg Tab 325 Mg PO ONCE Aspirin 81 Mg Chew 81 Mg CHEW DAILY Xanax (Alprazolam) 0.25 Mg Tab 0.25 Mg PO Q6H PRN Allergies: Coded Allergies: HMG-CoA Reductase Inhibitors (Verified Allergy, Severe, 08/25/16) PATIENT REPORTS HE CAN NOT TAKE ANY STATINS PERIOD. HE LOSES USE OF HIS LEGS Lipitor (Verified Allergy, Severe, back pain and chest pain, 08/24/16) Simvastatin (Unverified Allergy, Severe, body aches, 08/24/16) Physical Exam Vital Signs Vital Signs Date Time Temp Pulse Resp B/P Pulse Ox O2 Delivery O2 Flow Rate FiO2 09/16/16 04:00 97.4 95 20 150/79 90 09/16/16 00:00 98.0 90 20 130/70 93 09/15/16 20:00 99.6 89 20 122/67 92 09/15/16 16:21 99.5 91 20 110/56 96 09/15/16 12:36 98.0 103 20 133/72 96 09/15/16 08:43 98.9 112 20 136/72 90 134/76 136/72 Physical Exam P 102, BP 123/65, R 32 labored, sats 97% Head: Normal. Neck: Supple, airway patent. Lungs: Diffuse crackles, good air movement. Heart: NL S1S2, RRR, no m,r, + JVD. Abdomen: Large, soft, no guarding or tenderness. Extremities: Warm, flushed, well perfused. Neuro: Obtunded, withdraws to stimulation. Laboratory Laboratory Tests Test 09/15/16 09/16/16 08:30 05:31 White Blood Count 11.1 Red Blood Count 3.19 Hemoglobin 10.1 Hematocrit 30.0 Mean Corpuscular Volume 94.1 Mean Corpuscular Hemoglobin 31.6 Mean Corpuscular Hemoglobin 33.6 Concent Red Cell Distribution Width 14.0 Platelet Count 314 Mean Platelet Volume 8.0 Erythrocyte Sedimentation Rate 71 Sodium Level 136 Potassium Level 4.5 Chloride Level 106 Carbon Dioxide Level 16.7 Anion Gap 13 Blood Urea Nitrogen 31 Creatinine 3.66 Estimat Glomerular Filtration 16 Rate Random Glucose 88 Calcium Level 8.3 Phosphorus Level 3.6 Albumin 2.7 Blood Gas Puncture Site LT RADIAL Blood Gas Patient Temperature 98.6 Blood Gas HCO3 17 Blood Gas Base Excess -8.3 Blood Gas Oxygen Saturation 96 Arterial Blood pH 7.32 Arterial Blood Partial 33 Pressure CO2 Arterial Blood Partial 117 Pressure O2 Arterial Blood Oxygen Content 13.1 Arterial Blood 1.8 Carboxyhemoglobin Arterial Blood Methemoglobin 0.8 Blood Gas Hemoglobin 9.6 Oxygen Delivery Device NRB MASK Blood Gas Liter Flow 15 Date/Time Procedure Status Source Growth 09/12/16 01:00 Stool Occult Blood (JAME) - Final Complete Stool Stool HEMOCCULT NEGATIVE Result Diagram: 09/15/1682909/15/16829 Assessment and Plan Assessment and Plan Assessment: 1. Hypoxemic Respiratory Failure. 2. ANNY. 3. Encephalopathy. 4. DM Plan: 1, Intubation, mechanical ventilation. 2. Place CVL, follow CVP and ScVO2. 3. Restrict iv fluid. 4. Protonix. 5. Heparin 5000 sq bid. 6. ABG. 7. A-line 8. Blood cultures. Overall impression: Patient is critically ill with deteriorating respiratory function requiring intubation. He is unstable and requires aggressive resuscitative efforts. Critical Care 45 mins aside from procedures. Lionel Cormier MD Sep 16, 2016 06:22
[2016-09-16] MEDS ORDERED: SODIUM BICARBONATE 8.4% INJ 50 ML ONE (06:32)
[2016-09-16] MEDS: ALPRAZolam 0.25 MG TAB PO PRN (08:55)
--- NOTE | 2016-09-16 09:47 | HHI.PR ---
Subjective Remarks Patient went into respiratory failure overnight with evidence of pulmonary edema. He responded to Lasix with some improvement, currently on a nonrebreather. Labs still pending this morning. DW with lab, machinery rigger could not get it this AM. Stat labs were ordered. His is under the impression that he is being transferred to [facility]. However I am not aware of such plans. Objective Vitals Vital Signs Date Time Temp Pulse Resp B/P Pulse Ox O2 Delivery O2 Flow Rate FiO2 09/16/16 08:18 94 Non-Rebreather 100 09/16/16 08:09 99 50 09/16/16 06:38 Bi-Pap 09/16/16 06:17 96 50 09/16/16 05:35 98.6 97 34 155/85 99 09/16/16 05:35 99 Non-Rebreather 15.00 09/16/16 05:30 80 Simple Mask 6.00 09/16/16 05:25 98.6 96 34 140/80 89 09/16/16 05:25 89 Nasal Cannula 4.00 09/16/16 05:20 32 77 09/16/16 05:20 77 Nasal Cannula 2.00 09/16/16 04:00 97.4 95 20 150/79 90 09/16/16 00:00 98.0 90 20 130/70 93 09/15/16 20:30 90 09/15/16 20:00 99.6 89 20 122/67 92 09/15/16 16:21 99.5 91 20 110/56 96 09/15/16 12:36 98.0 103 20 133/72 96 I/O 09/15/16 09/15/16 09/15/16 09/16/16 09/16/16 09/16/16 06:59 14:59 22:59 06:59 14:59 22:59 Intake Total 120 ml 444 ml Output Total 450 ml 125 ml Balance -330 ml 444 ml -125 ml Intake Oral 120 ml IV Total 444 ml Output Urine Total 450 ml 125 ml # Voids 2 # Bowel Movements 1 Result Diagram: 09/15/1682909/15/1630 Objective Remarks GENERAL: Obese male in mild respiratory distress CARDIOVASCULAR: Regular rate and rhythm without murmurs, gallops, or rubs. RESPIRATORY: Diffuse rhonchi and bilateral basilar crackles. GASTROINTESTINAL: Abdomen soft, non-tender, nondistended. Normal active bowel sounds MUSCULOSKELETAL: Extremities without clubbing, cyanosis, or edema. NEURO: Alert & Oriented. Moves all ext x4 Procedures none A/P Problem List: (1) Cerebrovascular accident (CVA) due to embolism ICD Code: I63.9 Status: Acute (2) Acute kidney failure ICD Code: N17.9 Status: Acute (3) Uncontrolled hypertension ICD Code: I10 Status: Resolved (4) CKD (chronic kidney disease), stage III ICD Code: N18.3 Status: Chronic (5) Leukocytosis ICD Code: D72.829 Status: Acute (6) Chest pain ICD Code: R07.9 Status: Resolved (7) CAD (coronary artery disease) ICD Code: I25.10 Status: Chronic (8) Hyperkalemia ICD Code: E87.5 Status: Resolved (9) Orthostatic hypotension ICD Code: I95.1 Status: Resolved (10) S/P CABG x 3 ICD Code: Z95.1 Status: Acute (11) Generalized weakness ICD Code: R53.1 Status: Acute Assessment and Plan 75 Y/O male with history of CABG about a month ago admitted with CVA, complicated by renal failure and fluid overload. Patient is now in respiratory failure. Acute respiratory failure secondary to fluid overload/metabolic acidosis from renal failure. - Continue Bipap for now. DW living nurse Dr. Stevenson, if further decline, may need intubation. - Some response to Lasix this AM. He received a dose at 6 AM. DW with labs, machinery rigger could not get labs this AM. Stat labs were ordered which showed worsening of his kidney functions. - DW heel stainer Dr. Cerda. Continue with aggressive diuresis for fluid overload. If fluid overload persist and he stop responding to diuresis, he may need dialysis. - Give another dose ofd Lasix 40 mg IV at 12PM Cerebrovascular accident (CVA) ?due to embolism Presented with acute right-sided weakness. Resolved. Acute stroke on MRI as above - embolic Neurology following -On Eliquis 5 mg twice daily. Previously DW Dr. Jeffries, current vision changes are expected given the location of his stroke. Acute on chronic kidney disease. Baseline 1.2-1.6 Fluid overload. Nephrology following. DW with Dr. Cerda today. Probable atherosclerotic emboli which can explain stepwise decline in renal function. Poor prognosis. Patient is status post recent CABG. He is a vasculopath. On bicarb. No obstructive Uropathy per Urology. Strict I/O. Avoid nephrotoxins. - Continue diuresis as tolerated.If fluid status does not improve and uremia continue to worsen, may need dialysis. Elevated light chains, normal ratio: - Appreciate Hematology, Dr. Pascal input. Elevated light chains are secondary to renal failure. No further workup indicated. Hypertension - BP stable on labetalol 200 mg po TID Chest pain Resolved. Patient has recent CABG. Cardiac enzymes with elevated troponins.Troponin slightly higher than a troponin obtained on 09/08 which was 0.19. Cardiology following. Cleared from Cardiac standpoint. DVT prophylaxis - apixaban Patient's is requesting transfer to [facility]. I consulted case management. Patient is critically ill. More than 40 minutes spent in coordination of care and critical care services. Problem Qualifiers (1) CAD (coronary artery disease): Qualified Code: I25.10 - Coronary artery disease involving [place] coronary artery of [place] heart without angina pectoris Eduardo Desir MD Sep 16, 2016 09:47
[2016-09-16] MEDS: SODIUM CHLORIDE 0.9% FLUSH 10 ML FLUSH IV FLUSH SCH ×2 (09:55→20:25)
[2016-09-16] MEDS: LABETALOL HCL 100 MG TAB PO SCH ×2 (09:55→12:39)
[2016-09-16] MEDS: APIXABAN 5 MG TABLET PO SCH ×2 (09:55→20:25)
[2016-09-16 10:11] LABS: BASOPHIL # 0.1 TH/MM3 (0-0.2); BASOPHIL % 0.8 % (0.0-2.0); EOSINOPHIL # 0.1 TH/MM3 (0-0.4); EOSINOPHIL % 0.9 % (0.0-4.0); HEMATOCRIT 30.4 % (39.0-51.0); HEMO FLAGS DIFF FINAL; LYMPHOCYTE # 1.1 TH/MM3 (1.0-4.8); MEAN CELL VOLUME 93.7 FL (80.0-100.0); MEAN CORPUSCULAR HEMOGLOBIN 32.3 PG (27.0-34.0); MEAN CORPUSCULAR HGB CONC 34.5 % (32.0-36.0); MONO % 9.7 % (0.0-8.0); NEUT % 79.6 % (16.0-70.0); PLATELET COUNT 293 TH/MM3 (150-450); RED BLOOD COUNT 3.24 MIL/MM3 (4.50-5.90); RED CELL DISTRIBUTION WIDTH 14.5 % (11.6-17.2); WHITE BLOOD COUNT 12.5 TH/MM3 (4.0-11.0)
[2016-09-16 10:38] LABS: BICARBONATE 21.8 MEQ/L (21.0-32.0); POTASSIUM 4.8 MEQ/L (3.5-5.1)
[2016-09-16] MEDS ORDERED: LORazepam 2 MG/ML VIAL IV PUSH PRN (11:45)
[2016-09-16] MEDS ORDERED: METOPROLOL TARTRATE 5 MG/5 ML VIAL IV PUSH PRN (11:45)
--- NOTE | 2016-09-16 12:40 | PD.CARD.PN ---
Subjective Subjective Remarks The patient was transferred to ICU for acute hypoxic respiratory failure. He is on BIPAP. CXR pulmonary edema. Renal function poor, but he is diuresing well. Currently ST. BP 146/76 mmHg. He is not able to take PO medication. Objective Medications Current Medications Medications (Trade) Dose Ordered Sig/Awilda Route Start Time Stop Time Status Last Admin (NS Flush) 2 ml UNSCH PRN IV FLUSH 09/09/16 00:45 (NS Flush) 2 ml BID IV FLUSH 09/09/16 09:00 09/16/16 09:55 (Narcan Inj) 0.4 mg UNSCH PRN IV 09/09/16 00:45 (Xanax) 0.25 mg Q6H PRN PO 09/09/16 13:45 09/16/16 08:55 (Pill Splitter) 1 ea UNSCH PRN OTHER 09/09/16 14:00 (Eliquis) 5 mg BID PO 09/10/16 09:00 09/16/16 09:55 (Catapres) 0.1 mg Q6H PRN PO 09/11/16 14:30 09/11/16 23:52 (Trandate) 200 mg TID PO 09/13/16 18:00 09/16/16 09:55 (Sodium Bicarbonate) 650 mg Q8HR PO 09/15/16 22:00 09/15/16 22:59 (Lopressor Inj) 2.5 mg Q6H PRN IV PUSH 09/16/16 11:45 09/16/16 11:47 (Ativan Inj) 1 mg Q6H PRN IV PUSH 09/16/16 11:45 Vital Signs / I&O Vital Signs Date Time Temp Pulse Resp B/P Pulse Ox O2 Delivery O2 Flow Rate FiO2 09/16/16 10:25 97 50 09/16/16 08:18 94 Non-Rebreather 100 09/16/16 08:09 99 50 09/16/16 08:00 Bi-Pap 09/16/16 06:38 Bi-Pap 09/16/16 06:17 96 50 09/16/16 05:35 98.6 97 34 155/85 99 09/16/16 05:35 99 Non-Rebreather 15.00 09/16/16 05:30 80 Simple Mask 6.00 09/16/16 05:25 98.6 96 34 140/80 89 09/16/16 05:25 89 Nasal Cannula 4.00 09/16/16 05:20 32 77 09/16/16 05:20 77 Nasal Cannula 2.00 09/16/16 04:00 97.4 95 20 150/79 90 09/16/16 00:00 98.0 90 20 130/70 93 09/15/16 20:30 90 09/15/16 20:00 99.6 89 20 122/67 92 09/15/16 16:21 99.5 91 20 110/56 96 09/15/16 12:36 98.0 103 20 133/72 96 I/O 09/15/16 09/15/16 09/15/16 09/16/16 09/16/16 09/16/16 07:00 15:00 23:00 07:00 15:00 23:00 Intake Total 120 ml 444 ml Output Total 450 ml 125 ml Balance -330 ml 444 ml -125 ml Intake Oral 120 ml IV Total 444 ml Output Urine Total 450 ml 125 ml # Voids 2 # Bowel Movements 1 Physical Exam GENERAL: Elderly male, in ICU on BIPAP SKIN: Warm and dry. HEAD: Normocephalic. EYES: No scleral icterus. No injection or drainage. NECK: Supple, trachea midline, elevated JVD. CARDIOVASCULAR: Midline incision healing well, tachycardia RESPIRATORY: Bilateral rale, on BIPAP GASTROINTESTINAL: Abdomen soft, non-tender, nondistended. MUSCULOSKELETAL: No cyanosis, 1+ BLE BACK: Nontender without obvious deformity. No CVA tenderness. Laboratory Laboratory Tests Test 09/16/16 09/16/16 05:31 10:01 Blood Gas Puncture Site LT RADIAL Blood Gas Patient Temperature 98.6 Blood Gas HCO3 17 mmol/L Blood Gas Base Excess -8.3 mmol/L Blood Gas Oxygen Saturation 96 % Arterial Blood pH 7.32 Arterial Blood Partial 33 mmHg Pressure CO2 Arterial Blood Partial 117 mmHg Pressure O2 Arterial Blood Oxygen Content 13.1 Vol % Arterial Blood 1.8 % Carboxyhemoglobin Arterial Blood Methemoglobin 0.8 % Blood Gas Hemoglobin 9.6 G/DL Oxygen Delivery Device NRB MASK Blood Gas Liter Flow 15 L/M White Blood Count 12.5 TH/MM3 Red Blood Count 3.24 MIL/MM3 Hemoglobin 10.5 GM/DL Hematocrit 30.4 % Mean Corpuscular Volume 93.7 FL Mean Corpuscular Hemoglobin 32.3 PG Mean Corpuscular Hemoglobin 34.5 % Concent Red Cell Distribution Width 14.5 % Platelet Count 293 TH/MM3 Mean Platelet Volume 7.1 FL Neutrophils (%) (Auto) 79.6 % Lymphocytes (%) (Auto) 9.0 % Monocytes (%) (Auto) 9.7 % Eosinophils (%) (Auto) 0.9 % Basophils (%) (Auto) 0.8 % Neutrophils # (Auto) 10.0 TH/MM3 Lymphocytes # (Auto) 1.1 TH/MM3 Monocytes # (Auto) 1.2 TH/MM3 Eosinophils # (Auto) 0.1 TH/MM3 Basophils # (Auto) 0.1 TH/MM3 CBC Comment DIFF FINAL Differential Comment Sodium Level 134 MEQ/L Potassium Level 4.8 MEQ/L Chloride Level 102 MEQ/L Carbon Dioxide Level 21.8 MEQ/L Anion Gap 10 MEQ/L Blood Urea Nitrogen 42 MG/DL Creatinine 3.92 MG/DL Estimat Glomerular Filtration 15 ML/MIN Rate Random Glucose 93 MG/DL Calcium Level 8.1 MG/DL Imaging Last 72 hours Impressions Chest X-Ray 09/16/16 0000 Signed Impressions: Service Date/Time: September 05:45 - CONCLUSION: Worsening appearance of the chest. Ajay Prabhakar MD Assessment and Plan Assessment and Plan Acute hypoxic respiratory failure on BIPAP Chest pain, troponin elevated likely due to CKD and had recent NSTEMI. Atrial fibrillation with CVA and TIAs. Patient was on subtherapeutic Eliquis prior to admission. Now on Eliquis 5 mg BID ASHD s/p CABG 08/2016 Thoracic and abdominal aortic aneurysms HTN HLD- intolerant of statin therapy Carotid stenosis Acute on chronic renal failure PLAN: Continue eliquis 5 mg BID. If patient remains NPO due to poor respiratory status on BIPAP will need to initiate heparin ~36 hours after last heparin dose. Metoprolol IV PRN for tachycardia. Goal < 120 bpm Hydralazine PRN for hypertension SBP goal < 140, DBP goal < 90 Nephrology following. May need dialysis Will check limited echo to evaluate for LV function change. The patient was seen and evaluated by Dr. Moran. Elin Kwok Sep 16, 2016 12:40
[2016-09-16] MEDS ORDERED: ROCURONIUM INJ 50 MG/5 ML VIAL ONE ×2 (14:02→14:04)
[2016-09-16] MEDS ORDERED: MIDAZOLAM HCL 5 MG/ML VIAL (1 ML) ONE ×2 (14:02→14:04)
[2016-09-16] MEDS ORDERED: TERBUTALINE INJ 1 MG/ML AMP SQ PRN (15:15)
[2016-09-16] MEDS ORDERED: NOREPINEPHRINE-DEXTROSE DRIP 250 ML IV SCH (15:15)
--- NOTE | 2016-09-16 15:22 | PD.PROCEDR ---
Procedure Note Procedure DX: Hypoxemic Respiratory Failure (J96.01), ANNY (N17.9) OP: 1. Orotracheal Intubation (34362) 2. Insertion Central Venous Line (14200) Procedure: Time out and consent performed. Bag mask ventilation. Versed 5 mg and rocuronium 100 mg iv. Intubated orally with 8.0 tube. Position confirmed with CO2 detection, breath sounds, sats 100%. Right chest prepped and draped. Right subclavian vein cannulated and wire easily advanced. Catheter passed over wire to 18 cm. Lumens aspirated and flushed, dressing applied. CXR ordered, will review. Lionel Cormier MD Sep 16, 2016 15:22
--- NOTE | 2016-09-16 15:51 | RADRPT ---
EXAM DATE/TIME: 09/16/2016 15:28 [facility] COMPARISON: CHEST SINGLE AP, September 16, 2016, 5:45. INDICATIONS : Post ET tube. Evaluate NG tube position. MEDICAL HISTORY : Myocardial infarction. Hypercholesterolemia. Hypertension.CAD. A-fib. GE RD. Sleep apnea. Colon cancer. Bladder cancer. SURGICAL HISTORY : Abdominal aortic aneurysm repair. Coronary artery stent. Pacemaker. Colecto my.Bilateral carotid endarterectomy. ENCOUNTER: Subsequent ACUITY: 1 day PAIN SCORE: Non-responsive. LOCATION: Bilateral chest FINDINGS: A single view of the chest demonstrates interval placement of endotracheal tube, nasogastric tube and right subclavian central venous catheter. The tip of the nasogastric tube is within the cardia of th e stomach with the side port in distal esophagus. A subclavian venous catheter and endotracheal tube are in good position. There is improved lung aeration with decreasing airspace disease. Heart is mildly enlarged. There is evidence of previous open heart surgery. CONCLUSION: 1. Satisfactory placement of endotracheal tube and right subclavian central venous catheter. 2. Tip of nasogastric tube is within the cardia of the stomach with its side-port in the distal esoph jesusita. 3. Improving lung aeration with decreasing airspace disease. Shaji Rangel MD on September 16, 2016 at 15:46 Board Certified Radiologist. This report was verified electronically.
--- NOTE | 2016-09-16 16:40 | HHI.NPPN ---
Subjective History of Present Illness The patient is a 75 yo [place] male who presented to this facility 09/08 with complaints of R hand weakness. He was here at this facility just 10 days ago for 4-vessel CABG, discharged on 08/29. While undergoing CABG, he suffered a stroke and came in today as he was concerned he was having another. Was having no other neurological issues. We were consulted for acute renal failure. Presenting SCr of 3.65 that has worsened significantly from discharge on 08/29 at 1.53. Appears baseline renal function 1.2-1.6 according to previous records. States he has been at his usual state of health since his hospital discharge besides R hand weakness that resolved on its own while here in the ED. Denies any NVD. No NSAIDs. Denies any urinary issues. Review of previous imaging (namely CTA on 08/24) showed a L sided hydronephrosis extending to UVJ. THe patient was unaware of this. He has hx of bladder CA that was treated by surgical resection at [facility] about 1 year ago. Scheduled for f/u there in 1 month. CTA also revealed abdominal aneurysm that vascular surgery was consulted about and was supposed to have f/u as outpatient. Interval History Noted patient decompensated and developed pulmonary edema. Now intubated. Review of Systems General Constitutional: Fatigue General Remarks Denies any complaints Objective Data Data 09/15/16 09/16/16 18:59 06:59 Intake Total 444 ml Output Total 125 ml Balance 444 ml -125 ml IV Total 444 ml Output Urine Total 125 ml Vital Signs Date Time Temp Pulse Resp B/P Pulse Ox O2 Delivery O2 Flow Rate FiO2 09/16/16 16:21 98 60 09/16/16 14:30 60 09/16/16 14:20 98 60 09/16/16 13:45 96 65 09/16/16 12:00 98.0 104 28 150/81 97 09/16/16 10:25 97 50 09/16/16 08:18 94 Non-Rebreather 100 09/16/16 08:09 99 50 09/16/16 08:00 98.7 98 26 159/87 96 09/16/16 08:00 Bi-Pap 09/16/16 06:38 Bi-Pap 09/16/16 06:17 96 50 09/16/16 05:35 98.6 97 34 155/85 99 09/16/16 05:35 99 Non-Rebreather 15.00 09/16/16 05:30 80 Simple Mask 6.00 09/16/16 05:25 98.6 96 34 140/80 89 09/16/16 05:25 89 Nasal Cannula 4.00 09/16/16 05:20 32 77 09/16/16 05:20 77 Nasal Cannula 2.00 09/16/16 04:00 97.4 95 20 150/79 90 09/16/16 00:00 98.0 90 20 130/70 93 09/15/16 20:30 90 09/15/16 20:00 99.6 89 20 122/67 92 -: 09/16/16 1001 09/16/16 1001 Physical Exam General Appearance: No Acute Distress, Comfortable Eyes Eye Exam: Sclera White Pulmonary Resp Exam: Clear Bilaterally, Breath Sounds Equal, No Distress Cardiology CV Exam: Normal Sinus Rhythm, Irregular Gastrointestinal/Abdomen GI Exam: Soft, Non-Tender Integumentary Skin Exam: Clear, Warm, Normal Turgor Extremeties Extremities Exam: Trace Edema (bilat ankles) Neurologic Neuro Exam: Alert, Awake Assessment/Plan Discussed Condition With: Patient Problem List: (1) Acute kidney failure Plan: Primary consideration at this point in time given history of recent angiogram prior to admission and extensive atherosclerotic disease is acute renal sufficiency secondary to atheroembolic disease which can be associated with declining kidney function in a stepwise fashion several weeks after the initial insult.. Patient's creatinine level has deteriorated further however it was a good response to IV diuresis. Follow-up renal panel in a.m. Unfortunately if the patient has indeed developed renal injury from an atheroembolic episode progressive azotemia can occur in which case admission may become dialysis dependent. There is no specific treatment for atheroembolic renal disease. Definitive diagnosis could be made by kidney biopsy however this would not alter clinical management and the patient is clinically unstable. Also history of recent acute cerebrovascular event. Serological studies and bland urinalysis not consistent with an autoimmune related acute glomerulonephritis. Medication-related interstitial nephritis is not a primary consideration after reviewing clinical history/medications. An episode of atheroembolic disease if it has occurred is indicative of poor prognosis. Discussed with cardiology. At this point in time diuresis is indicated despite his worsening azotemia to improve his volume status and respiratory status. Urological consultation reviewed and they do not believe there is an obstructive uropathy. is requesting transfer as the [facility]. We'll defer to correctional case manager to arrange. Medications should be adjusted for the patient's renal decline. Avoid nephrotoxic medications including NSAIDs and iodinated contrast dyes. Gadolinium should be avoided as eGFR 30. (2) CKD (chronic kidney disease) stage 3, GFR 30-59 ml/min Plan: Renal ultrasound shows changes consistent with CKD with cortical atrophy bilaterally. (3) Metabolic acidosis Plan: Secondary to renal insufficiency. Supplement bicarbonate as clinically indicated. (4) Hydroureteronephrosis Plan: Urology consult noted f/u with outpatient urologist (5) TIA (transient ischemic attack) Plan: The indicated to me she was not aware that her may have had a recurrence of an acute cerebrovascular event. I advised her to discuss the situation with neurology to clarify whether or not patient had experienced another TIA and or CVA just prior to this admission. (6) Hypoalbuminemia Plan: Likely related to malnourishment. SPEP, ANSELMO, K/L within normal limits (7) Hypertension (8) Anemia Plan: Iron level and iron saturation below normal. Defer further evaluation to primary care physician. (9) CAD (coronary artery disease) Problem Qualifiers (1) TIA (transient ischemic attack): Qualified Code: G45.9 - Transient cerebral ischemia, unspecified type (2) CAD (coronary artery disease): Qualified Code: I25.10 - Coronary artery disease involving [place] coronary artery of [place] heart without angina pectoris Liv Cerda MD Sep 16, 2016 16:40 Liv Cerda MD Sep 16, 2016 16:40
[2016-09-16 16:44] LABS: BLOOD GAS BASE EXCESS -5.8 mmol/L (-2-2); BLOOD GAS CARBOXYHEMOGLOBIN 1.5 % (0-4); BLOOD GAS HCO3 20 mmol/L (22-26); BLOOD GAS METHEMOGLOBIN 0.8 % (0-2); BLOOD GAS O2 HGB SATURATION 89 % (90-100); BLOOD GAS OXYGEN CONTENT 11.2 Vol % (12.0-20.0); BLOOD GAS PCO2 41 mmHg (38-42); BLOOD GAS PO2 65 mmHg (61-120); TEMP CORR TO 98.6
[2016-09-16 16:50] LABS: CRITICAL VALUE YES; DRAW SITE RT RADIAL; FIO2 60 %; NUMBER OF ARTERIAL PUNCTURES 1; OXYGEN DEVICE VENTILATOR; STAT NO; ULNAR PULSE PRESENT; VENT SETTINGS PRVC/AC
[2016-09-16] MEDS: PROPOFOL 1000 MG/100 ML INJ 100 ML IV SCH ×2 (18:04→22:28)
[2016-09-16] MEDS: CHLORHEXIDINE 0.12% (ORAL KIT) 15 ML CUP MT SCH (20:25)
[2016-09-17] VITALS (19 sets, daily range): BP systolic 119–146; BP diastolic 65–80; PULSE 80–106; RESP 14–24; TEMP 97.1–100.2; O2SAT 92–99
[2016-09-17 03:18] LABS: BLOOD GAS BASE EXCESS -1.1 mmol/L (-2-2); BLOOD GAS CARBOXYHEMOGLOBIN 1.2 % (0-4); BLOOD GAS HCO3 23 mmol/L (22-26); BLOOD GAS METHEMOGLOBIN 0.9 % (0-2); BLOOD GAS O2 HGB SATURATION 98 % (90-100); BLOOD GAS OXYGEN CONTENT 14.7 Vol % (12.0-20.0); BLOOD GAS PCO2 39 mmHg (38-42); BLOOD GAS PO2 256 mmHg (61-120); BLOOD GAS TOTAL HGB 10.3 G/DL (12.0-16.0); CRITICAL VALUE NO; DRAW SITE LT RADIAL; FIO2 60 %; NUMBER OF ARTERIAL PUNCTURES 1; OXYGEN DEVICE VENTILATOR; STAT NO; TEMP CORR TO 98.6; ULNAR PULSE PRESENT; VENT SETTINGS PRVC/AC
[2016-09-17] MEDS: PROPOFOL 1000 MG/100 ML INJ 100 ML IV SCH ×3 (04:00→14:24)
[2016-09-17 04:31] LABS: MEAN CELL VOLUME 93.6 FL (80.0-100.0); MEAN CORPUSCULAR HGB CONC 34.2 % (32.0-36.0); PLATELET COUNT 267 TH/MM3 (150-450); RED BLOOD COUNT 2.88 MIL/MM3 (4.50-5.90); RED CELL DISTRIBUTION WIDTH 14.8 % (11.6-17.2); REVIEW FLAG FINAL
[2016-09-17 04:41] LABS: BICARBONATE 25.9 MEQ/L (21.0-32.0); POTASSIUM 4.2 MEQ/L (3.5-5.1)
[2016-09-17] MEDS: SODIUM BICARBONATE 650 MG TAB PO SCH ×3 (05:07→22:37)
--- NOTE | 2016-09-17 08:00 | HHI.CCPN ---
Subjective Remarks/Hospital Course 75 y/o man now about 4 weeks following CABG complicated by CVA. Presented back 08/28 with new onset right arm weakness. Hospital course has been complicated by CKD and fluid overload. We have attempted BiPAP for several hours but he remains in distress and although oxygenation is acceptable work of breathing is excessive. Worrisome increasing metabolic acidosis. 09/17: Gas exchange much improved. BNP 1681, ScVO2 71%. It appears that cardiac output is more than adequate for peripheral needs and the primary pathology is renal failure and fluid overload. If we can manage volume I can probably get him extubated. Objective Vital Signs Date Time Temp Pulse Resp B/P Pulse Ox O2 Delivery O2 Flow Rate FiO2 09/17/16 06:00 80 09/17/16 04:12 99 40 09/17/16 04:00 99.4 20 122/69 09/16/16 20:00 Mechanical Ventilator 09/16/16 05:35 15.00 Intake and Output 09/16/16 09/16/16 09/16/16 07:59 15:59 23:59 Intake Total 53 ml Output Total 125 ml 3100 ml Balance -125 ml -3047 ml Result Diagram: 09/17/16 0405 09/17/16 0405 Other Results Laboratory Tests Test 09/16/16 09/17/16 16:27 03:04 Blood Gas Puncture Site RT RADIAL LT RADIAL Blood Gas Patient Temperature 98.6 98.6 Blood Gas HCO3 20 mmol/L 23 mmol/L (22-26) (22-26) Blood Gas Base Excess -5.8 mmol/L -1.1 mmol/L (-2-2) (-2-2) Blood Gas Oxygen Saturation 89 % (90-100) 98 % (90-100) Arterial Blood pH 7.30 7.39 (7.380-7.420) (7.380-7.420) Arterial Blood Partial 41 mmHg (38-42) 39 mmHg (38-42) Pressure CO2 Arterial Blood Partial 65 mmHg 256 mmHg Pressure O2 (61-120) (61-120) Arterial Blood Oxygen Content 11.2 Vol % 14.7 Vol % (12.0-20.0) (12.0-20.0) Arterial Blood 1.5 % (0-4) 1.2 % (0-4) Carboxyhemoglobin Arterial Blood Methemoglobin 0.8 % (0-2) 0.9 % (0-2) Blood Gas Hemoglobin 9.0 G/DL 10.3 G/DL (12.0-16.0) (12.0-16.0) Oxygen Delivery Device VENTILATOR VENTILATOR Blood Gas Ventilator Setting PRVC/AC PRVC/AC Blood Gas Inspired Oxygen 60 % 60 % Objective Remarks P 88, SBP 120s, R 16, Sat 100% Head: Normal. Neck: Supple, orally intubated. Lungs: No crackles, good air movement. Heart: NL S1S2, RRR, no m,r, - JVD. Abdomen: Large, soft, no guarding or tenderness. BS active. Extremities: Warm, flushed, well perfused. Neuro: Sedated. Moves 4 limbs spontaneously. Procedures none A/P Assessment and Plan Assessment: 1. Hypoxemic Respiratory Failure. 2. ANNY. 3. Encephalopathy. 4. DM 5. Fluid overload. Plan: 1, Mechanical ventilation. PRVC. 2. CVL, follow CVP and ScVO2. 3. Restrict iv fluid. 4. Protonix. 5. Heparin 5000 sq bid. 6. ABGs. 7. A-line 8. Blood cultures. 9. SBTs Overall impression: Patient is critically ill with hypoxemic respiratory failure and fluid overload. Critical Care 38 mins aside from procedures. Lionel Cormier MD Sep 17, 2016 07:59
[2016-09-17] MEDS: CHLORHEXIDINE 0.12% (ORAL KIT) 15 ML CUP MT SCH ×2 (09:08→19:49)
[2016-09-17] MEDS: APIXABAN 5 MG TABLET PO SCH ×2 (09:08→22:37)
[2016-09-17] MEDS: METOPROLOL TARTRATE 5 MG/5 ML VIAL IV PUSH PRN (09:09)
[2016-09-17] MEDS: SODIUM CHLORIDE 0.9% FLUSH 10 ML FLUSH IV FLUSH SCH ×2 (09:09→22:37)
--- NOTE | 2016-09-17 12:36 | ECHRPT ---
Indication: ACUTE APOXIA, RESPIRATORY FAILURE CONCLUSIONS Normal left ventricular size. Moderate concentric left ventricular hypertrophy. The left ventricular systolic function is hyperdynamic with an estimated ejection fraction in the ra nge of 65- 70%. Paradoxical septal motion probably 2nd to OHS.left ventricular diastolic function parameters are nor mal. The interatrial septum not well visualized. Trace mitral valve regurgitation. Aortic valve sclerosis is present. No aortic valve regurgitation. No aortic valve stenosis. There is mild tricuspid valve regurgitation. There is estimated moderate pulmonary hypertension present (range 50-60 mmHg). The pulmonary valve is not well visualized. The inferior vena cava is dilated. There is greater than 50% respiratory change in dimension of the inferior vena cava (normal). BP: 122 / 69 HR: Rhythm: Sinus MEASUREMENTS (Male / Female) Normal Values Technical Quality:Fair 2D ECHO LV Diastolic Diameter PLAX 4.0 cm 4.2 - 5.9 / 3.9 - 5.3 cm LV Systolic Diameter PLAX 2.7 cm IVS Diastolic Thickness 1.1 cm 0.6 - 1.0 / 0.6 - 0.9 cm LVPW Diastolic Thickness 1.1 cm 0.6 - 1.0 / 0.6 - 0.9 cm LV Relative Wall Thickness 0.6 LVOT Diameter 2.2 cm Aortic Root Diameter 3.7 cm LA Systolic Diameter LX 2.7 cm 3.0 - 4.0 / 2.7 - 3.8 cm M-MODE AV Cusp Separation MM 2.1 cm DOPPLER Mitral E Point Velocity 77.0 cm/s Mitral A Point Velocity 37.5 cm/s Mitral E to A Ratio 2.1 LV E' Lateral Velocity 10.5 cm/s Mitral E to LV E' Lateral Ratio 7.3 LV E' Septal Velocity 9.2 cm/s Mitral E to LV E' Septal Ratio 8.4 TR Peak Velocity 330.0 cm/s TR Peak Gradient 43.6 mmHg PV Peak Velocity 71.4 cm/s PV Peak Gradient 2.0 mmHg FINDINGS LEFT VENTRICLE Normal left ventricular size. Moderate concentric left ventricular hypertrophy. The left ventricular systolic function is hyperdynamic with an estimated ejection fraction in the ra nge of 65- 70%. Paradoxical septal motion probably 2nd to OHS.left ventricular diastolic function parameters are nor mal. Left ventricular diastolic function parameters are normal. RIGHT VENTRICLE Normal right ventricular size and systolic function. LEFT ATRIUM The left atrial size is normal. RIGHT ATRIUM The right atrial size is normal. ATRIAL SEPTUM The interatrial septum not well visualized. AORTA The aortic root and proximal ascending aorta are normal in size on limited imaging. MITRAL VALVE Structurally normal mitral valve. Trace mitral valve regurgitation. AORTIC VALVE Trileaflet aortic valve. Aortic valve sclerosis is present. No aortic valve regurgitation. No aortic valve stenosis. TRICUSPID VALVE Structurally normal tricuspid valve. There is mild tricuspid valve regurgitation. There is estimated moderate pulmonary hypertension present (range 50-60 mmHg). PULMONARY VALVE The pulmonary valve is not well visualized. VESSELS The inferior vena cava is dilated. There is greater than 50% respiratory change in dimension of the inferior vena cava (normal). PERICARDIUM No pericardial effusion. Bella Espinosa MD, FACC (Electronically Signed) Final Date:17 September 2016 12:35
--- NOTE | 2016-09-17 13:49 | PD.CARD.PN ---
Subjective Subjective Remarks The patient was intubated yesterday due to hypoxic respiratory failure. Has NG to suction, ground coffee appearance. Hbg trending down slightly. patient is on Eliquis. (Elin Kwok) Objective Medications Current Medications Medications (Trade) Dose Ordered Sig/Awilda Route Start Time Stop Time Status Last Admin (NS Flush) 2 ml UNSCH PRN IV FLUSH 09/09/16 00:45 (NS Flush) 2 ml BID IV FLUSH 09/09/16 09:00 09/17/16 09:09 (Narcan Inj) 0.4 mg UNSCH PRN IV 09/09/16 00:45 (Xanax) 0.25 mg Q6H PRN PO 09/09/16 13:45 09/16/16 08:55 (Pill Splitter) 1 ea UNSCH PRN OTHER 09/09/16 14:00 (Eliquis) 5 mg BID PO 09/10/16 09:00 09/17/16 09:08 (Catapres) 0.1 mg Q6H PRN PO 09/11/16 14:30 09/11/16 23:52 (Trandate) 200 mg TID PO 09/13/16 18:00 Hold 09/16/16 09:55 (Sodium Bicarbonate) 650 mg Q8HR PO 09/15/16 22:00 09/16/16 20:27 (Ativan Inj) 1 mg Q6H PRN IV PUSH 09/16/16 11:45 (Lopressor Inj) 5 mg Q2HR PRN IV PUSH 09/16/16 14:00 09/17/16 09:09 (Apresoline Inj) 10 mg Q6HR PRN IV PUSH 09/16/16 12:45 Chlorhexidine Gluconate 15 ml 15 ml BID@08,20 MT 09/16/16 20:00 09/17/16 09:08 Propofol 100 ml @ 0 mls/hr TITRATE IV 09/16/16 14:15 09/17/16 07:44 (Levophed-Dextrose Drip) 250 ml @ 0 mls/hr TITRATE IV 09/16/16 15:15 (Brethine Inj) 1 mg UNSCH PRN SQ 09/16/16 15:15 Vital Signs / I&O Vital Signs Date Time Temp Pulse Resp B/P Pulse Ox O2 Delivery O2 Flow Rate FiO2 09/17/16 12:00 35 09/17/16 12:00 98.8 96 14 130/65 98 09/17/16 11:40 98 35 09/17/16 10:00 95 09/17/16 09:38 94 35 09/17/16 09:20 35 09/17/16 08:01 98 35 09/17/16 08:00 97.1 95 24 146/80 98 09/17/16 08:00 99 Mechanical Ventilator 35 09/17/16 08:00 95 09/17/16 08:00 40 09/17/16 06:00 80 09/17/16 04:12 99 40 09/17/16 04:00 99.4 87 20 122/69 98 09/17/16 04:00 87 09/17/16 04:00 40 09/17/16 02:00 87 09/17/16 01:05 99 60 09/17/16 00:00 90 09/17/16 00:00 97.6 90 20 119/71 99 09/17/16 00:00 60 09/16/16 20:00 99 Mechanical Ventilator 60 09/16/16 20:00 60 09/16/16 20:00 95 09/16/16 20:00 99.4 96 24 128/72 99 09/16/16 19:49 99 60 09/16/16 16:49 98 70 09/16/16 16:45 70 09/16/16 16:21 98 60 09/16/16 16:00 98.0 93 20 110/60 97 09/16/16 14:30 60 09/16/16 14:20 98 60 09/16/16 13:45 96 65 I/O 09/16/16 09/16/16 09/16/16 09/17/16 09/17/16 09/17/16 07:00 15:00 23:00 07:00 15:00 23:00 Intake Total 53 ml 176 ml Output Total 125 ml 3100 ml 500 ml Balance -125 ml -3047 ml -324 ml IV Total 53 ml 176 ml Output Urine Total 125 ml 3050 ml 500 ml Gastric Drainage Total 50 ml 0 ml # Bowel Movements 0 0 Physical Exam GENERAL: Elderly male, in ICU ventilator SKIN: Warm and dry. HEAD: Normocephalic. EYES: No scleral icterus. No injection or drainage. NECK: Supple, trachea midline, elevated JVD. CARDIOVASCULAR: Midline incision healing well, tachycardia RESPIRATORY: Bilateral rales, ventilator GASTROINTESTINAL: Abdomen soft, non-tender, nondistended. NG to suction ground coffee appearance. MUSCULOSKELETAL: No cyanosis, 1+ BLE BACK: Nontender without obvious deformity. No CVA tenderness. Laboratory Laboratory Tests Test 09/16/16 09/16/16 09/17/16 09/17/16 16:00 16:27 03:04 04:05 Lactic Acid Level 0.8 mmol/L Magnesium Level 1.8 MG/DL B-Type Natriuretic Peptide 1681 PG/ML Blood Gas Puncture Site RT RADIAL LT RADIAL Blood Gas Patient Temperature 98.6 98.6 Blood Gas HCO3 20 mmol/L 23 mmol/L Blood Gas Base Excess -5.8 mmol/L -1.1 mmol/L Blood Gas Oxygen Saturation 89 % 98 % Arterial Blood pH 7.30 7.39 Arterial Blood Partial 41 mmHg 39 mmHg Pressure CO2 Arterial Blood Partial 65 mmHg 256 mmHg Pressure O2 Arterial Blood Oxygen Content 11.2 Vol % 14.7 Vol % Arterial Blood 1.5 % 1.2 % Carboxyhemoglobin Arterial Blood Methemoglobin 0.8 % 0.9 % Blood Gas Hemoglobin 9.0 G/DL 10.3 G/DL Oxygen Delivery Device VENTILATOR VENTILATOR Blood Gas Ventilator Setting PRVC/AC PRVC/AC Blood Gas Inspired Oxygen 60 % 60 % White Blood Count 10.0 TH/MM3 Red Blood Count 2.88 MIL/MM3 Hemoglobin 9.2 GM/DL Hematocrit 27.0 % Mean Corpuscular Volume 93.6 FL Mean Corpuscular Hemoglobin 32.0 PG Mean Corpuscular Hemoglobin 34.2 % Concent Red Cell Distribution Width 14.8 % Platelet Count 267 TH/MM3 Mean Platelet Volume 7.8 FL Sodium Level 138 MEQ/L Potassium Level 4.2 MEQ/L Chloride Level 100 MEQ/L Carbon Dioxide Level 25.9 MEQ/L Anion Gap 12 MEQ/L Blood Urea Nitrogen 53 MG/DL Creatinine 4.54 MG/DL Estimat Glomerular Filtration 13 ML/MIN Rate Random Glucose 107 MG/DL Calcium Level 8.4 MG/DL Imaging Last 72 hours Impressions Chest X-Ray 09/16/16 0000 Signed Impressions: Service Date/Time: September 15:28 - CONCLUSION: 1. Satisfactory placement of endotracheal tube and right subclavian central venous catheter. 2. Tip of nasogastric tube is within the cardia of the stomach with its side-port in the distal esophagus. 3. Improving lung aeration with decreasing airspace disease. Shaji Rangel MD Chest X-Ray 09/16/16 0000 Signed Impressions: Service Date/Time: , September 16, 2016 05:45 - CONCLUSION: Worsening appearance of the chest. Ajay Prabhakar MD (Elin Kwok) Assessment and Plan Assessment and Plan Acute hypoxic respiratory failure on ventilator. Pulmonary edema due to renal failure. Repeat cardiac echo did not show change of LV function. Chest pain, troponin elevated likely due to CKD and had recent NSTEMI. Atrial fibrillation with CVA and TIAs. Patient was on subtherapeutic Eliquis prior to admission. 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 PLAN: Protonix IV stat H/H recheck. Will consult GI and hold Eliquis if H/H trending down rapidly. Consideration for risk vs benefit of oral AC must be considered. Will discuss changing to Pradaxa since there is an antidote. Metoprolol IV PRN for tachycardia. Goal < 120 bpm Hydralazine PRN for hypertension SBP goal < 140, DBP goal < 90 Nephrology following. May need dialysis The patient was seen and evaluated by Dr. Moran who completed a [id number] encounter, completed a physical exam and participated in evaluation and management. (Elin Kwok) Elin Kwok Sep 17, 2016 13:49 Suellen Moran MD Sep 17, 2016 14:55
[2016-09-17] MEDS: PANTOPRAZOLE SODIUM 40 MG VIAL IV PUSH SCH (14:24)
--- NOTE | 2016-09-17 14:40 | HHI.NPPN ---
Subjective History of Present Illness The patient is a 75 yo [place] male who presented to this facility 09/08 with complaints of R hand weakness. He was here at this facility just 10 days ago for 4-vessel CABG, discharged on 08/29. While undergoing CABG, he suffered a stroke and came in today as he was concerned he was having another. Was having no other neurological issues. We were consulted for acute renal failure. Presenting SCr of 3.65 that has worsened significantly from discharge on 08/29 at 1.53. Appears baseline renal function 1.2-1.6 according to previous records. States he has been at his usual state of health since his hospital discharge besides R hand weakness that resolved on its own while here in the ED. Denies any NVD. No NSAIDs. Denies any urinary issues. Review of previous imaging (namely CTA on 08/24) showed a L sided hydronephrosis extending to UVJ. THe patient was unaware of this. He has hx of bladder CA that was treated by surgical resection at [facility] about 1 year ago. Scheduled for f/u there in 1 month. CTA also revealed abdominal aneurysm that vascular surgery was consulted about and was supposed to have f/u as outpatient. Interval History Patient made good urine overnight. Appears to be alert and responding to questions by nodding but still intubated. Review of Systems General Constitutional: Fatigue General Remarks Denies any complaints Objective Data Data 09/16/16 09/17/16 18:59 06:59 Intake Total 14 ml 215 ml Output Total 2600 ml 1000 ml Balance -2586 ml -785 ml IV Total 14 ml 215 ml Output Urine Total 2600 ml 950 ml Gastric Drainage Total 50 ml # Bowel Movements 0 Vital Signs Date Time Temp Pulse Resp B/P Pulse Ox O2 Delivery O2 Flow Rate FiO2 09/17/16 12:00 35 09/17/16 12:00 98.8 96 14 130/65 98 09/17/16 12:00 96 09/17/16 11:40 98 35 09/17/16 10:00 95 09/17/16 09:38 94 35 09/17/16 09:20 35 09/17/16 08:01 98 35 09/17/16 08:00 97.1 95 24 146/80 98 09/17/16 08:00 99 Mechanical Ventilator 35 09/17/16 08:00 95 09/17/16 08:00 40 09/17/16 06:00 80 09/17/16 04:12 99 40 09/17/16 04:00 99.4 87 20 122/69 98 09/17/16 04:00 87 09/17/16 04:00 40 09/17/16 02:00 87 09/17/16 01:05 99 60 09/17/16 00:00 90 09/17/16 00:00 97.6 90 20 119/71 99 09/17/16 00:00 60 09/16/16 20:00 99 Mechanical Ventilator 60 09/16/16 20:00 60 09/16/16 20:00 95 09/16/16 20:00 99.4 96 24 128/72 99 09/16/16 19:49 99 60 09/16/16 16:49 98 70 09/16/16 16:45 70 09/16/16 16:21 98 60 09/16/16 16:00 98.0 93 20 110/60 97 09/16/16 14:30 60 -: 09/17/16 0405 09/17/16 0405 Microbiology 09/16/16 Aerobic Blood Culture - Preliminary, Resulted NO GROWTH IN 1 DAY 09/16/16 Anaerobic Blood Culture - Preliminary, Resulted NO GROWTH IN 1 DAY 09/16/16 Aerobic Blood Culture - Preliminary, Resulted NO GROWTH IN 1 DAY 09/16/16 Anaerobic Blood Culture - Preliminary, Resulted NO GROWTH IN 1 DAY Physical Exam General Appearance: No Acute Distress, Comfortable Eyes Eye Exam: Sclera White Pulmonary Resp Exam: Clear Bilaterally, Breath Sounds Equal, No Distress Cardiology CV Exam: Normal Sinus Rhythm, Irregular Gastrointestinal/Abdomen GI Exam: Soft, Non-Tender Integumentary Skin Exam: Clear, Warm, Normal Turgor Extremeties Extremities Exam: No Edema Neurologic Neuro Exam: Alert, Awake Assessment/Plan Problem List: (1) Acute kidney failure Plan: Primary consideration at this point in time given history of recent angiogram prior to admission and extensive atherosclerotic disease is acute renal sufficiency secondary to atheroembolic disease which can be associated with declining kidney function in a stepwise fashion several weeks after the initial insult.. Patient's creatinine level has deteriorated further however it was a good response to IV diuresis. Follow-up renal panel in a.m. Unfortunately if the patient has indeed developed renal injury from an atheroembolic episode progressive azotemia can occur in which case admission may become dialysis dependent. There is no specific treatment for atheroembolic renal disease. Definitive diagnosis could be made by kidney biopsy however this would not alter clinical management and the patient is clinically unstable. Also history of recent acute cerebrovascular event. Serological studies and bland urinalysis not consistent with an autoimmune related acute glomerulonephritis. Urology has evaluated the patient and they do not believe that the patient has obstructive uropathy. Medication-related interstitial nephritis is not a primary consideration after reviewing clinical history/medications but will review home medications with again. Called both numbers listed in the EMR but went voicemail. Advised RN to contact me when comes in to speak on the phone. . An episode of atheroembolic disease if it has occurred is indicative of poor prognosis long-term. Urological consultation reviewed and they do not believe there is an obstructive uropathy. is requesting transfer as the [facility]. We'll defer to case monitor to arrange. No present indication to initiate dialysis today in view of improved urine output and stable electrolytes however if his azotemia continues to progress significantly dialysis will have to be considered. Medications should be adjusted for the patient's renal decline. Avoid nephrotoxic medications including NSAIDs and iodinated contrast dyes. Gadolinium should be avoided as eGFR 30. (2) CKD (chronic kidney disease) stage 3, GFR 30-59 ml/min Plan: Renal ultrasound shows changes consistent with CKD with cortical atrophy bilaterally. (3) Metabolic acidosis Plan: Improved. (4) TIA (transient ischemic attack) Plan: The indicated to me she was not aware that her may have had a recurrence of an acute cerebrovascular event. I advised her to discuss the situation with neurology to clarify whether or not patient had experienced another TIA and or CVA just prior to this admission. (5) Hypoalbuminemia Plan: Likely related to malnourishment. SPEP, ANSELMO, K/L within normal limits (6) Hypertension (7) CAD (coronary artery disease) (8) Congestive heart failure Plan: Improved clinically. Diuretics as clinically indicated. (9) Anemia Plan: Iron level and iron saturation below normal. Defer further evaluation to primary care physician. Problem Qualifiers (1) TIA (transient ischemic attack): Qualified Code: G45.9 - Transient cerebral ischemia, unspecified type Liv Cerda MD Sep 17, 2016 14:40
[2016-09-17] MEDS ORDERED: RESP: RACEPINEPHRINE 2.25% 0.5 ML NEB NEB PRN (17:15)
[2016-09-17] MEDS: DEXAMETHASONE SOD PHOS 4 MG/ML VIAL IV PUSH SCH ×2 (18:07→22:37)
[2016-09-18] VITALS (15 sets, daily range): BP systolic 122–153; BP diastolic 64–80; PULSE 88–101; RESP 18–24; TEMP 97.5–99; O2SAT 91–98
[2016-09-18] MEDS ORDERED: ALBUMIN HUMAN 5% 12.5 GM/250 ML BOTTLE IV ONE (02:45)
[2016-09-18] MEDS: SODIUM BICARBONATE 650 MG TAB PO SCH ×3 (04:16→22:30)
[2016-09-18] MEDS: DEXAMETHASONE SOD PHOS 4 MG/ML VIAL IV PUSH SCH (04:17)
[2016-09-18] MEDS: PANTOPRAZOLE SODIUM 40 MG VIAL IV PUSH SCH ×2 (04:18→13:19)
[2016-09-18] MEDS: hydrALAZINE HCL 20 MG/ML VIAL IV PUSH PRN (04:25)
[2016-09-18 05:32] LABS: BICARBONATE 24.9 MEQ/L (21.0-32.0); POTASSIUM 4.4 MEQ/L (3.5-5.1)
--- NOTE | 2016-09-18 06:10 | RADRPT ---
EXAM DATE/TIME: 09/18/2016 04:44 [place] COMPARISON: CHEST SINGLE AP, September 16, 2016, 15:28. INDICATIONS : Shortness of breath MEDICAL HISTORY : Myocardial infarction. Hypercholesterolemia. Hypertension. CAD, A-fib, GERD, Colon cancer, Bladde r cancer SURGICAL HISTORY : Abdominal aortic aneurysm repair. Pacemaker. Coronary artery stent, Bilateral Carotid Endardectomy ENCOUNTER: Subsequent ACUITY: 3 days PAIN SCORE: 6/10 LOCATION: Bilateral chest FINDINGS: A single view of the chest demonstrates cardiomegaly with bilateral pulmonary edema. Cardiomegaly and previous CABG. Right subclavian central line stable in position.. Osseous structures are intact. CONCLUSION: 1. Cardiomegaly and pulmonary edema. 2. Status post CABG. Jacob Trujillo MD on September 18, 2016 at 6:07 Board Certified Radiologist. This report was verified electronically.
--- NOTE | 2016-09-18 07:51 | HHI.CCPN ---
Subjective Remarks/Hospital Course 75 y/o man now about 4 weeks following CABG complicated by CVA. Presented back 08/28 with new onset right arm weakness. Hospital course has been complicated by CKD and fluid overload. We have attempted BiPAP for several hours but he remains in distress and although oxygenation is acceptable work of breathing is excessive. Worrisome increasing metabolic acidosis. 09/17: Gas exchange much improved. BNP 1681, ScVO2 71%. It appears that cardiac output is more than adequate for peripheral needs and the primary pathology is renal failure and fluid overload. If we can manage volume I can probably get him extubated. 09/18: Diffuse crackles. Needs to be diuresed today. Tolerating extubation but at risk for hypoxemic failure again. Objective Vital Signs Date Time Temp Pulse Resp B/P Pulse Ox O2 Delivery O2 Flow Rate FiO2 09/18/16 06:00 95 09/18/16 04:00 98.5 19 148/73 95 09/18/16 03:02 Venturi Mask 35 09/16/16 05:35 15.00 Intake and Output 09/17/16 09/17/16 09/18/16 08:00 16:00 00:00 Intake Total 176 ml 145 ml 480 ml Output Total 500 ml 700 ml 450 ml Balance -324 ml -555 ml 30 ml Result Diagram: 09/17/16 1728 09/18/16 0341 Objective Remarks P 87, SBP 110s, R 17, Sat 93% Head: Normal. Neck: Supple, airway widely patent Lungs: Diffuse crackles, good air movement. Heart: NL S1S2, RRR, no m,r, - JVD. Abdomen: Large, soft, no guarding or tenderness. BS active. Extremities: Warm, flushed, well perfused. Neuro: Sedated. Moves 4 limbs spontaneously. Procedures none A/P Assessment and Plan Assessment: 1. Hypoxemic Respiratory Failure. 2. ANNY. 3. Encephalopathy. 4. DM 5. Fluid overload. Plan: 1, FM O2 2. CVL, follow CVP and ScVO2. 3. Restrict iv fluid. 4. Protonix. 5. Heparin 5000 sq bid. 6. ABGs. 7. A-line 8. Blood cultures. 9. Lasix X 1. Overall impression: Patient remains critically ill with hypoxemic respiratory failure and fluid overload. Acute kidney injury hampering efforts to remove free water. Critical Care 35 mins aside from procedures. Lioenl Cormier MD Sep 18, 2016 07:50
[2016-09-18] MEDS ORDERED: FUROSEMIDE 40 MG/4 ML VIAL IV PUSH ONE (08:00)
[2016-09-18] MEDS: CHLORHEXIDINE 0.12% (ORAL KIT) 15 ML CUP MT SCH ×2 (08:00→20:00)
[2016-09-18] MEDS: SODIUM CHLORIDE 0.9% FLUSH 10 ML FLUSH IV FLUSH SCH ×2 (09:00→20:34)
[2016-09-18] MEDS: APIXABAN 5 MG TABLET PO SCH ×2 (09:57→20:33)
[2016-09-18] MEDS: cloNIDine HCL 0.1 MG TAB PO PRN (11:00)
--- NOTE | 2016-09-18 14:21 | PD.CARD.PN ---
Objective Vital Signs / I&O Vital Signs Date Time Temp Pulse Resp B/P Pulse Ox O2 Delivery O2 Flow Rate FiO2 09/18/16 14:00 94 09/18/16 12:00 101 09/18/16 12:00 97.5 101 18 122/70 94 09/18/16 10:00 96 09/18/16 08:19 97 Venturi Mask 50 09/18/16 08:00 98.0 95 18 145/80 96 09/18/16 08:00 96 09/18/16 07:00 Venturi Mask 15.00 35 09/18/16 06:00 95 09/18/16 04:00 98.5 89 19 148/73 95 09/18/16 04:00 89 09/18/16 03:02 93 Venturi Mask 35 09/18/16 02:00 90 09/18/16 01:10 96 50 09/18/16 00:50 99 Bi-Pap 09/18/16 00:00 99.0 92 24 128/64 91 09/18/16 00:00 101 09/17/16 22:00 101 09/17/16 20:08 94 Venturi Mask 50 09/17/16 20:00 102 09/17/16 20:00 100.2 101 24 132/67 92 09/17/16 19:30 93 Venturi Mask 35 09/17/16 18:00 102 09/17/16 16:00 98.6 102 23 132/66 92 09/17/16 16:00 102 09/17/16 14:55 98 Venturi Mask 40 I/O 09/17/16 09/17/16 09/17/16 09/18/16 09/18/16 09/18/16 07:00 15:00 23:00 07:00 15:00 23:00 Intake Total 176 ml 145 ml 480 ml 120 ml 360 ml Output Total 500 ml 700 ml 450 ml 500 ml 900 ml Balance -324 ml -555 ml 30 ml -380 ml -540 ml Intake Oral 480 ml 120 ml 360 ml IV Total 176 ml 145 ml Output Urine Total 500 ml 700 ml 450 ml 500 ml 900 ml Gastric Drainage Total 0 ml # Bowel Movements 0 Laboratory Laboratory Tests Test 09/17/16 09/18/16 17:28 03:41 Hemoglobin 9.6 GM/DL Hematocrit 28.0 % Sodium Level 137 MEQ/L Potassium Level 4.4 MEQ/L Chloride Level 100 MEQ/L Carbon Dioxide Level 24.9 MEQ/L Anion Gap 12 MEQ/L Blood Urea Nitrogen 66 MG/DL Creatinine 3.96 MG/DL Estimat Glomerular Filtration 15 ML/MIN Rate Random Glucose 138 MG/DL Calcium Level 8.9 MG/DL Phosphorus Level 5.7 MG/DL B-Type Natriuretic Peptide 519 PG/ML Albumin 2.4 GM/DL Assessment and Plan Assessment and Plan PT EXTUBATED NOT SOB SATS 94 NSR NO CP STILL HAS MILD WEAKNESS BOTH HANDS V BS RRR NO S3 NO EDEMA CXR PERSISTENT PULM EDEMA HCT 30 ON ELIQUIS SAME CV RX WOULD INCREASE LASIX TO 40 MG IV BID Noah Butler DO Sep 18, 2016 14:21
--- NOTE | 2016-09-18 15:19 | HHI.NPPN ---
Subjective History of Present Illness The patient is a 75 yo [place] male who presented to this facility 09/08 with complaints of R hand weakness. He was here at this facility just 10 days ago for 4-vessel CABG, discharged on 08/29. While undergoing CABG, he suffered a stroke and came in today as he was concerned he was having another. Was having no other neurological issues. We were consulted for acute renal failure. Presenting SCr of 3.65 that has worsened significantly from discharge on 08/29 at 1.53. Appears baseline renal function 1.2-1.6 according to previous records. States he has been at his usual state of health since his hospital discharge besides R hand weakness that resolved on its own while here in the ED. Denies any NVD. No NSAIDs. Denies any urinary issues. Review of previous imaging (namely CTA on 08/24) showed a L sided hydronephrosis extending to UVJ. THe patient was unaware of this. He has hx of bladder CA that was treated by surgical resection at [facility] about 1 year ago. Scheduled for f/u there in 1 month. CTA also revealed abdominal aneurysm that vascular surgery was consulted about and was supposed to have f/u as outpatient. Interval History Patient is extubated. No verbal complaints. Review of Systems General Constitutional: Fatigue General Remarks Denies any complaints Objective Data Data 09/17/16 09/18/16 19:00 07:00 Intake Total 145 ml 600 ml Output Total 700 ml 950 ml Balance -555 ml -350 ml Intake Oral 600 ml IV Total 145 ml Output Urine Total 700 ml 950 ml Vital Signs Date Time Temp Pulse Resp B/P Pulse Ox O2 Delivery O2 Flow Rate FiO2 09/18/16 14:00 94 09/18/16 12:00 101 09/18/16 12:00 97.5 101 18 122/70 94 09/18/16 10:00 96 09/18/16 08:19 97 Venturi Mask 50 09/18/16 08:00 98.0 95 18 145/80 96 09/18/16 08:00 96 09/18/16 07:00 Venturi Mask 15.00 35 09/18/16 06:00 95 09/18/16 04:00 98.5 89 19 148/73 95 09/18/16 04:00 89 09/18/16 03:02 93 Venturi Mask 35 09/18/16 02:00 90 09/18/16 01:10 96 50 09/18/16 00:50 99 Bi-Pap 09/18/16 00:00 99.0 92 24 128/64 91 09/18/16 00:00 101 09/17/16 22:00 101 09/17/16 20:08 94 Venturi Mask 50 09/17/16 20:00 102 09/17/16 20:00 100.2 101 24 132/67 92 09/17/16 19:30 93 Venturi Mask 35 09/17/16 18:00 102 09/17/16 16:00 98.6 102 23 132/66 92 09/17/16 16:00 102 -: 09/17/16 1728 09/18/16 0341 Physical Exam General Appearance: No Acute Distress, Comfortable Eyes Eye Exam: Sclera White Pulmonary Resp Exam: Clear Bilaterally, Breath Sounds Equal, No Distress Cardiology CV Exam: Normal Sinus Rhythm, Irregular Gastrointestinal/Abdomen GI Exam: Soft, Non-Tender Integumentary Skin Exam: Clear, Warm, Normal Turgor Extremeties Extremities Exam: No Edema Neurologic Neuro Exam: Alert, Awake Assessment/Plan Discussed Condition With: Patient Problem List: (1) Acute kidney failure Plan: Primary consideration at this point in time given history of recent angiogram prior to admission and extensive atherosclerotic disease is acute renal sufficiency secondary to atheroembolic disease which can be associated with declining kidney function in a stepwise fashion several weeks after the initial insult.. Unfortunately if the patient has indeed developed renal injury from an atheroembolic episode progressive azotemia can occur in which case admission may become dialysis dependent. There is no specific treatment for atheroembolic renal disease. Definitive diagnosis could be made by kidney biopsy however this would not alter clinical management and the patient is clinically unstable. Also history of recent acute cerebrovascular event. Serological studies and bland urinalysis not consistent with an autoimmune related acute glomerulonephritis. Urology has evaluated the patient and they do not believe that the patient has obstructive uropathy. I contacted the patient's pharmacy and apparently he was prescribed Protonix. Medication related interstitial nephritis is less consideration presently however believe it would be prudent to avoid Protonix as discussed with critical care. It will be discontinued and Zantac substituted. . An episode of atheroembolic disease if it has occurred is indicative of poor prognosis long-term. Urological consultation reviewed and they do not believe there is an obstructive uropathy. is requesting transfer as the [facility]. We'll defer to case planner to arrange. No present indication to initiate dialysis today in view of improved urine output and stable electrolytes however if his azotemia continues to progress significantly dialysis will have to be considered. I discussed at length all of the above with the patient and answered all questions. He was advised of the severity of his renal insufficiency and the probability that he will have to make decision regarding whether or not he would want dialytic support if it becomes clinically indicated and at this point in time there is a good possibility that this decision will have to be made as discussed with him. Medications should be adjusted for the patient's renal decline. Avoid nephrotoxic medications including NSAIDs and iodinated contrast dyes. Gadolinium should be avoided as eGFR 30. (2) CKD (chronic kidney disease) stage 3, GFR 30-59 ml/min Plan: Renal ultrasound shows changes consistent with CKD with cortical atrophy bilaterally. (3) Metabolic acidosis Plan: Improved. (4) TIA (transient ischemic attack) Plan: The indicated to me she was not aware that her may have had a recurrence of an acute cerebrovascular event. I advised her to discuss the situation with neurology to clarify whether or not patient had experienced another TIA and or CVA just prior to this admission. (5) Hypoalbuminemia Plan: Likely related to malnourishment. SPEP, ANSELMO, K/L within normal limits (6) Hypertension (7) CAD (coronary artery disease) (8) Congestive heart failure Plan: Improved clinically. Diuretics as clinically indicated. (9) Anemia Plan: Iron level and iron saturation below normal. Defer further evaluation to primary care physician. Problem Qualifiers (1) TIA (transient ischemic attack): Qualified Code: G45.9 - Transient cerebral ischemia, unspecified type Liv Cerda MD Sep 18, 2016 15:19
[2016-09-18] MEDS: RANITIDINE HCL SYRUP 150 MG/10 ML UDC PO SCH (20:33)
[2016-09-19] VITALS (15 sets, daily range): BP systolic 149–164; BP diastolic 74–82; PULSE 72–104; RESP 20–28; TEMP 98–98.5; O2SAT 91–97
[2016-09-19] MEDS: cloNIDine HCL 0.1 MG TAB PO PRN ×2 (04:07→23:02)
[2016-09-19] MEDS: SODIUM BICARBONATE 650 MG TAB PO SCH ×3 (06:14→21:03)
[2016-09-19] MEDS: RANITIDINE HCL SYRUP 150 MG/10 ML UDC PO SCH ×2 (07:41→20:06)
[2016-09-19] MEDS: SODIUM CHLORIDE 0.9% FLUSH 10 ML FLUSH IV FLUSH SCH ×2 (07:41→21:03)
[2016-09-19] MEDS: APIXABAN 5 MG TABLET PO SCH ×2 (07:41→20:06)
[2016-09-19] MEDS: CHLORHEXIDINE 0.12% (ORAL KIT) 15 ML CUP MT SCH ×2 (07:41→20:00)
[2016-09-19] MEDS: hydrALAZINE HCL 20 MG/ML VIAL IV PUSH PRN (07:42)
--- NOTE | 2016-09-19 07:43 | PD.TRANSFR ---
Transfer Summary Admission Date Sep 09, 2016 at 00:42 Transfer Date: Sep 19, 2016 Admitting Diagnosis TIA/acute renal failure Diagnoses: (1) Acute hypoxemic respiratory failure Diagnosis: Principal (2) Fluid overload Diagnosis: Principal (3) ANNY (acute kidney injury) Diagnosis: Principal (4) Cerebrovascular accident (CVA) due to embolism (5) CKD (chronic kidney disease), stage III (6) Leukocytosis (7) CAD (coronary artery disease) (8) Hyperkalemia Significant Findings Elderly man with diffuse cardiovascular disease and sudden deterioration in his renal function most likely related to atheromatous embolization. He is now about 4 weeks after a CABG procedure and presents back to us with SOB and obvious fluid overload. GFR in the 15 ml/hr range but urine output good. He required emergency intubation and mechanical ventilation 3 days ago for gross fluid overload and extubated after 30 hours. His renal workup has been negative so far but he is a vasculopath and has had other embolic events, likely atheromata. Family has requested that he be transported to [facility] but he has been too ill to safely transfer. Much improved now and could go tomorrow to [facility] if a physician will accept him. He has been treated there in the past. Transfer Summary/Subjective PE today: Lungs: Few crackles, mildly labored breathing. Heart: RRR, no m,r. No JVD. Extremities: Warm, well perfused. Trace general edema. Neuro: Conversant, appears oriented to place, person, time. Objective Vital Signs Date Time Temp Pulse Resp B/P Pulse Ox O2 Delivery O2 Flow Rate FiO2 09/19/16 07:12 97 Nasal Cannula 4.00 09/19/16 06:00 72 09/19/16 04:00 98.3 22 164/82 09/18/16 08:19 50 Intake and Output 09/18/16 09/18/16 09/19/16 08:00 16:00 00:00 Intake Total 120 ml 360 ml 250 ml Output Total 500 ml 900 ml 1100 ml Balance -380 ml -540 ml -850 ml Result Diagram: 09/17/16 1728 09/18/16 0341 Objective Remarks P 87, SBP 110s, R 17, Sat 93% Head: Normal. Neck: Supple, airway widely patent Lungs: Diffuse crackles, good air movement. Heart: NL S1S2, RRR, no m,r, - JVD. Abdomen: Large, soft, no guarding or tenderness. BS active. Extremities: Warm, flushed, well perfused. Neuro: Sedated. Moves 4 limbs spontaneously. Procedures none A/P Assessment and Plan Assessment: 1. Hypoxemic Respiratory Failure. 2. ANNY. 3. Encephalopathy. 4. DM 5. Fluid overload. Plan: 1, FM O2 2. CVL, follow CVP and ScVO2. 3. Restrict iv fluid. 4. Protonix. 5. Heparin 5000 sq bid. 6. ABGs. 7. A-line 8. Blood cultures. 9. Lasix X 1. Overall impression: Patient remains critically ill with hypoxemic respiratory failure and fluid overload. Acute kidney injury hampering efforts to remove free water. Critical Care 35 mins aside from procedures. Lionel Cormier MD Sep 19, 2016 07:43
[2016-09-19 08:51] LABS: BICARBONATE 25.5 MEQ/L (21.0-32.0); POTASSIUM 4.5 MEQ/L (3.5-5.1)
--- NOTE | 2016-09-19 11:47 | HHI.PR ---
Subjective Remarks Follow-up acute renal failure, respiratory failure. The patient denies chest pain or dyspnea. No nausea or vomiting. He and his are quite concerned about his kidney function. 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 Objective Vitals Vital Signs Date Time Temp Pulse Resp B/P Pulse Ox O2 Delivery O2 Flow Rate FiO2 09/19/16 08:00 98.5 91 22 158/75 92 Automatic Cuff 09/19/16 08:00 93 09/19/16 07:12 97 Nasal Cannula 4.00 09/19/16 07:00 90 Nasal Cannula 4.00 09/19/16 06:00 72 09/19/16 04:00 96 09/19/16 04:00 98.3 90 22 164/82 92 09/19/16 02:00 96 09/19/16 00:00 98.0 88 22 153/74 94 09/19/16 00:00 88 09/18/16 22:00 89 09/18/16 21:11 95 Nasal Cannula 4.00 09/18/16 20:00 88 09/18/16 20:00 98.1 90 20 153/74 94 09/18/16 19:00 90 Nasal Cannula 4.00 09/18/16 18:00 95 09/18/16 16:00 98.0 98 21 148/74 98 09/18/16 16:00 96 09/18/16 14:00 94 09/18/16 12:00 101 09/18/16 12:00 97.5 101 18 122/70 94 I/O 09/18/16 09/18/16 09/18/16 09/19/16 09/19/16 09/19/16 07:00 15:00 23:00 07:00 15:00 23:00 Intake Total 120 ml 360 ml 250 ml 240 ml Output Total 500 ml 900 ml 1100 ml 650 ml Balance -380 ml -540 ml -850 ml -410 ml Intake Oral 120 ml 360 ml 240 ml 240 ml IV Total 10 ml Output Urine Total 500 ml 900 ml 1100 ml 650 ml # Bowel Movements 0 0 Result Diagram: 09/17/16 1728 09/19/16 0742 Imaging Last Impressions Chest X-Ray 09/18/16 0400 Signed Impressions: Service Date/Time: Sunday, September 18, 2016 04:44 - CONCLUSION: 1. Cardiomegaly and pulmonary edema. 2. Status post CABG. Jacob Trujillo MD Head Magnetic Resonance Angiography 09/10/16 1028 Signed Impressions: Service Date/Time: Saturday, September 10, 2016 10:57 - CONCLUSION: 1. Unremarkable MRA examination without evidence for large vessel occlusion, aneurysm, or vascular malformation. Richardson Haney MD Brain MRI 09/10/16 1028 Signed Impressions: Service Date/Time: Saturday, September 10, 2016 10:57 - CONCLUSION: 1. Findings most consistent with new embolic infarcts involving both the anterior and posterior circulation. Richardson Haney MD Carotid Artery Ultrasound 09/09/16 1028 Signed Impressions: Service Date/Time: September 10:43 - CONCLUSION: 1. Moderate visible plaque without hemodynamically significant stenosis identified. No significant change from August 25. Amado Crain MD Renal Ultrasound 09/09/16 0000 Signed Impressions: Service Date/Time: September 15:41 - CONCLUSION: 1. Cortical atrophy with small bilateral renal cysts. No hydronephrosis. Amado Crain MD Head CT 09/08/16 2251 Signed Impressions: Service Date/Time: Thursday, September 08, 2016 23:41 - CONCLUSION: Stable noncontrast CT with no evidence of hemorrhage or acute infarction. Atrophy and chronic small vessel splenic changes remain. Sanya Cavazos MD Objective Remarks General: Elderly male in no acute distress. Heart: Bilateral crackles. No murmur. Lungs: Clear to auscultation bilaterally. No wheezes, rales, or rhonchi. Breathing is nonlabored. Abdomen: Soft, nontender, nondistended. Extremities: No lower extremity edema. Psych: Alert and oriented. Procedures none Urinary Catheter: Yes Assessment to: Continue Franco insert reason: ICU Pt Getting Diuretics Vascular Central Line Catheter: No A/P Problem List: (1) Acute hypoxemic respiratory failure ICD Code: J96.01 Status: Acute (2) Fluid overload ICD Code: E87.70 Status: Acute (3) ANNY (acute kidney injury) ICD Code: N17.9 Status: Acute (4) Cerebrovascular accident (CVA) due to embolism ICD Code: I63.9 Status: Acute (5) CKD (chronic kidney disease), stage III ICD Code: N18.3 Status: Chronic (6) Leukocytosis ICD Code: D72.829 Status: Acute (7) CAD (coronary artery disease) ICD Code: I25.10 Status: Chronic (8) Hyperkalemia ICD Code: E87.5 Status: Resolved Assessment and Plan 1. Hypoxemic respiratory failure: Improving. Patient was intubated and maintained on ventilator for approximately 30 hours. Now on 4 L oxygen per nasal cannula. 2. Acute renal failure: Appreciate nephrology recommendations. Creatinine slightly better today. Patient is nonoliguric. 3. Encephalopathy: Improved. 4. Diabetes mellitus: Monitor Accu-Cheks and cover with sliding scale insulin. 5. Fluid overload: Continue diuresis. Appreciate cardiology recommendations. 6. GI prophylaxis: Zantac. 7. DVT prophylaxis: Eliquis. Discharge Planning The patient and his are requesting transfer to [place], where the patient has previously had surgery and follows with nephrology. Pradip Palmer MD Sep 19, 2016 11:47
[2016-09-19] MEDS ORDERED: SENNOSIDES 8.6 MG TAB PO PRN (13:30)
[2016-09-19] MEDS ORDERED: LACTULOSE SYRUP 20 GM/30 ML CUP PO PRN (13:30)
[2016-09-19] MEDS ORDERED: MAGNESIUM HYDROXIDE SUSP 30 ML CUP PO PRN (13:30)
[2016-09-19] MEDS ORDERED: BISACODYL 10 MG SUPP RECTAL PRN (13:30)
--- NOTE | 2016-09-19 13:38 | HHI.NPPN ---
Subjective History of Present Illness The patient is a 75 yo [place] male who presented to this facility 09/08 with complaints of R hand weakness. He was here at this facility just 10 days ago for 4-vessel CABG, discharged on 08/29. While undergoing CABG, he suffered a stroke and came in today as he was concerned he was having another. Was having no other neurological issues. We were consulted for acute renal failure. Presenting SCr of 3.65 that has worsened significantly from discharge on 08/29 at 1.53. Appears baseline renal function 1.2-1.6 according to previous records. States he has been at his usual state of health since his hospital discharge besides R hand weakness that resolved on its own while here in the ED. Denies any NVD. No NSAIDs. Denies any urinary issues. Review of previous imaging (namely CTA on 08/24) showed a L sided hydronephrosis extending to UVJ. THe patient was unaware of this. He has hx of bladder CA that was treated by surgical resection at [facility] about 1 year ago. Scheduled for f/u there in 1 month. CTA also revealed abdominal aneurysm that vascular surgery was consulted about and was supposed to have f/u as outpatient. Interval History Patient denied any shortness of breath. Sitting in a chair. by his side. Review of Systems General Constitutional: Fatigue General Remarks Denies any complaints Objective Data Data 09/18/16 09/19/16 18:59 06:59 Intake Total 360 ml 490 ml Output Total 900 ml 1750 ml Balance -540 ml -1260 ml Intake Oral 360 ml 480 ml IV Total 10 ml Output Urine Total 900 ml 1750 ml # Bowel Movements 0 Vital Signs Date Time Temp Pulse Resp B/P Pulse Ox O2 Delivery O2 Flow Rate FiO2 09/19/16 12:00 98.5 90 22 154/75 94 09/19/16 12:00 84 09/19/16 10:00 91 09/19/16 08:00 98.5 91 22 158/75 92 Automatic Cuff 09/19/16 08:00 93 09/19/16 07:12 97 Nasal Cannula 4.00 09/19/16 07:00 90 Nasal Cannula 4.00 09/19/16 06:00 72 09/19/16 04:00 96 09/19/16 04:00 98.3 90 22 164/82 92 09/19/16 02:00 96 09/19/16 00:00 98.0 88 22 153/74 94 09/19/16 00:00 88 09/18/16 22:00 89 09/18/16 21:11 95 Nasal Cannula 4.00 09/18/16 20:00 88 09/18/16 20:00 98.1 90 20 153/74 94 09/18/16 19:00 90 Nasal Cannula 4.00 09/18/16 18:00 95 09/18/16 16:00 98.0 98 21 148/74 98 09/18/16 16:00 96 09/18/16 14:00 94 -: 09/17/16 1728 09/19/16 0742 Physical Exam General Appearance: No Acute Distress, Comfortable Eyes Eye Exam: Sclera White Pulmonary Resp Exam: Clear Bilaterally, Breath Sounds Equal, No Distress Cardiology CV Exam: Normal Sinus Rhythm, Irregular Gastrointestinal/Abdomen GI Exam: Soft, Non-Tender Integumentary Skin Exam: Clear, Warm, Normal Turgor Extremeties Extremities Exam: No Edema Neurologic Neuro Exam: Alert, Awake Assessment/Plan Discussed Condition With: Patient Problem List: (1) Acute kidney failure Plan: Primary consideration at this point in time given history of recent angiogram prior to admission and extensive atherosclerotic disease is acute renal sufficiency secondary to atheroembolic disease which can be associated with declining kidney function in a stepwise fashion several weeks after the initial insult.. Unfortunately if the patient has indeed developed renal injury from an atheroembolic episode progressive azotemia can occur in which case admission may become dialysis dependent. There is no specific treatment for atheroembolic renal disease. Definitive diagnosis could be made by kidney biopsy however this would not alter clinical management and the patient is clinically unstable. Also history of recent acute cerebrovascular event. Serological studies and bland urinalysis not consistent with an autoimmune related acute glomerulonephritis. Urology has evaluated the patient and they do not believe that the patient has obstructive uropathy. I contacted the patient's pharmacy and apparently he was prescribed Protonix. Medication related interstitial nephritis is lesser consideration presently however believe it would be prudent to avoid Protonix as discussed with critical care. It will be discontinued and Zantac substituted. Kidney biopsy would give a definitive diagnosis however patient presently not stable for same and uncertain if it would change current management. We'll defer the [facility] deciding whether or not to proceed with same. Slight improvement in renal indices and good urine volume with diuretic therapy. . An episode of atheroembolic disease if it has occurred is indicative of poor prognosis long-term. Urological consultation reviewed and they do not believe there is an obstructive uropathy. is requesting transfer as the [facility]. We'll defer to shoe caser to arrange. No present indication to initiate dialysis today in view of improved urine output and stable electrolytes however if his azotemia continues to progress significantly dialysis will have to be considered. I discussed at length all of the above with the patient and answered all questions. He was advised of the severity of his renal insufficiency and the probability that he will have to make decision regarding whether or not he would want dialytic support if it becomes clinically indicated and at this point in time there is a good possibility that this decision will have to be made as discussed with him. Medications should be adjusted for the patient's renal decline. Avoid nephrotoxic medications including NSAIDs and iodinated contrast dyes. Gadolinium should be avoided as eGFR 30. (2) CKD (chronic kidney disease) stage 3, GFR 30-59 ml/min Plan: Renal ultrasound shows changes consistent with CKD with cortical atrophy bilaterally. (3) Metabolic acidosis Plan: Improved. (4) TIA (transient ischemic attack) Plan: The indicated to me she was not aware that her may have had a recurrence of an acute cerebrovascular event. I advised her to discuss the situation with neurology to clarify whether or not patient had experienced another TIA and or CVA just prior to this admission. (5) Hypoalbuminemia Plan: Likely related to malnourishment. SPEP, ANSELMO, K/L within normal limits (6) Hypertension (7) CAD (coronary artery disease) (8) Congestive heart failure Plan: Improved clinically. Diuretics as clinically indicated. (9) Anemia Plan: Iron level and iron saturation below normal. Defer further evaluation to primary care physician. Problem Qualifiers (1) TIA (transient ischemic attack): Qualified Code: G45.9 - Transient cerebral ischemia, unspecified type Liv Cerda MD Sep 19, 2016 13:38
[2016-09-19] MEDS: DOCUSATE SODIUM 50 MG/SENNA 8.6 MG TAB PO SCH (20:06)
[2016-09-20] VITALS (13 sets, daily range): BP systolic 102–149; BP diastolic 54–76; PULSE 78–100; RESP 24–40; TEMP 98.3–99; O2SAT 93–97
[2016-09-20] MEDS: hydrALAZINE HCL 20 MG/ML VIAL IV PUSH PRN (02:14)
[2016-09-20 04:08] LABS: AUTOMATED NEUTROPHIL # 9.3 TH/MM3 (1.8-7.7); BASOPHIL % 0.2 % (0.0-2.0); EOSINOPHIL # 0.1 TH/MM3 (0-0.4); HEMATOCRIT 27.7 % (39.0-51.0); HEMO FLAGS DIFF FINAL; LYMPH % 9.8 % (9.0-44.0); LYMPHOCYTE # 1.2 TH/MM3 (1.0-4.8); MEAN CELL VOLUME 93.2 FL (80.0-100.0); MEAN CORPUSCULAR HEMOGLOBIN 30.3 PG (27.0-34.0); MEAN CORPUSCULAR HGB CONC 32.5 % (32.0-36.0); MONO % 11.7 % (0.0-8.0); NEUT % 77.3 % (16.0-70.0); PLATELET COUNT 364 TH/MM3 (150-450); RED BLOOD COUNT 2.97 MIL/MM3 (4.50-5.90); RED CELL DISTRIBUTION WIDTH 14.5 % (11.6-17.2); WHITE BLOOD COUNT 12.1 TH/MM3 (4.0-11.0)
[2016-09-20 04:28] LABS: POTASSIUM 4.7 MEQ/L (3.5-5.1)
[2016-09-20] MEDS: SODIUM BICARBONATE 650 MG TAB PO SCH ×3 (06:09→21:03)
[2016-09-20] MEDS: CHLORHEXIDINE 0.12% (ORAL KIT) 15 ML CUP MT SCH ×2 (08:00→19:49)
[2016-09-20] MEDS: APIXABAN 5 MG TABLET PO SCH ×2 (09:03→20:45)
[2016-09-20] MEDS: SODIUM CHLORIDE 0.9% FLUSH 10 ML FLUSH IV FLUSH SCH ×2 (09:03→21:03)
[2016-09-20] MEDS: RANITIDINE HCL SYRUP 150 MG/10 ML UDC PO SCH (09:04)
[2016-09-20] MEDS: DOCUSATE SODIUM 50 MG/SENNA 8.6 MG TAB PO SCH ×2 (09:04→20:45)
[2016-09-20] MEDS ORDERED: FUROSEMIDE 100 MG/10 ML VIAL IV PUSH ONE (09:15)
--- NOTE | 2016-09-20 09:17 | PD.CARD.PN ---
Subjective Subjective Remarks Progressively worsening pulmonary status. Now on non-rebreather. Bilateral rales. No chest pain. No cardiac arrhythmia on tele. Maintained NSR. Per and RN, trying to get transfer to [place] per the family's request. Patient requiring antihypertensive PRN therapy. Currently no scheduled antihypertensive. Labetalol on hold (Elin Kwok) Objective Medications Current Medications Medications (Trade) Dose Ordered Sig/Awilda Route Start Time Stop Time Status Last Admin (NS Flush) 2 ml UNSCH PRN IV FLUSH 09/09/16 00:45 (NS Flush) 2 ml BID IV FLUSH 09/09/16 09:00 09/20/16 09:03 (Narcan Inj) 0.4 mg UNSCH PRN IV 09/09/16 00:45 (Xanax) 0.25 mg Q6H PRN PO 09/09/16 13:45 09/16/16 08:55 (Pill Splitter) 1 ea UNSCH PRN OTHER 09/09/16 14:00 (Eliquis) 5 mg BID PO 09/10/16 09:00 09/20/16 09:03 (Catapres) 0.1 mg Q6H PRN PO 09/11/16 14:30 09/19/16 23:02 (Trandate) 200 mg TID PO 09/13/16 18:00 Hold 09/16/16 09:55 (Sodium Bicarbonate) 650 mg Q8HR PO 09/15/16 22:00 09/20/16 06:09 (Ativan Inj) 1 mg Q6H PRN IV PUSH 09/16/16 11:45 09/20/16 01:16 (Lopressor Inj) 5 mg Q2HR PRN IV PUSH 09/16/16 14:00 09/17/16 09:09 (Apresoline Inj) 10 mg Q6HR PRN IV PUSH 09/16/16 12:45 09/20/16 02:14 Chlorhexidine Gluconate 15 ml 15 ml BID@08,20 MT 09/16/16 20:00 09/17/16 09:08 Propofol 100 ml @ 0 mls/hr TITRATE IV 09/16/16 14:15 09/17/16 14:24 (Levophed-Dextrose Drip) 250 ml @ 0 mls/hr TITRATE IV 09/16/16 15:15 (Brethine Inj) 1 mg UNSCH PRN SQ 09/16/16 15:15 (Zantac Liq) 75 mg Q12HR PO 09/18/16 21:00 09/20/16 09:04 (Anne-Colace) 1 tab BID PO 09/19/16 21:00 09/20/16 09:04 (Milk Of Magnesia Liq) 30 ml Q12H PRN PO 09/19/16 13:30 09/19/16 13:30 (Senokot) 17.2 mg Q12H PRN PO 09/19/16 13:30 (Dulcolax Supp) 10 mg DAILY PRN RECTAL 09/19/16 13:30 (Lactulose Liq) 30 ml DAILY PRN PO 09/19/16 13:30 (Lasix Inj) 60 mg ONCE ONCE IV PUSH 09/20/16 09:15 09/20/16 09:16 UNV Vital Signs / I&O Vital Signs Date Time Temp Pulse Resp B/P Pulse Ox O2 Delivery O2 Flow Rate FiO2 09/20/16 07:05 Non-Rebreather 15.00 09/20/16 06:00 98 09/20/16 04:00 97 09/20/16 04:00 99.0 95 24 125/70 93 09/20/16 02:00 96 09/20/16 00:00 95 09/20/16 00:00 99.0 95 25 149/72 97 09/19/16 22:55 98 Partial Non-Rebreather 15.00 09/19/16 22:55 97 Non-Rebreather 15.00 09/19/16 22:00 104 09/19/16 21:00 92 Venturi Mask 15.00 50 09/19/16 21:00 93 Venturi Mask 50 09/19/16 20:00 98.3 100 20 160/78 91 09/19/16 20:00 100 09/19/16 19:00 90 Nasal Cannula 4.00 09/19/16 18:00 100 09/19/16 16:00 95 09/19/16 16:00 98.5 97 28 149/74 91 09/19/16 14:00 94 09/19/16 12:00 98.5 90 22 154/75 94 09/19/16 12:00 84 09/19/16 10:00 91 I/O 09/19/16 09/19/16 09/19/16 09/20/16 09/20/16 09/20/16 06:59 14:59 22:59 06:59 14:59 22:59 Intake Total 240 ml 780 ml 490 ml 510 ml Output Total 650 ml 750 ml 850 ml 750 ml Balance -410 ml 30 ml -360 ml -240 ml Intake Oral 240 ml 780 ml 480 ml 480 ml IV Total 0 ml 10 ml 30 ml Output Urine Total 650 ml 750 ml 850 ml 750 ml # Bowel Movements 0 0 1 0 Physical Exam GENERAL: Elderly male, mild distress SKIN: Warm and dry. HEAD: Normocephalic. EYES: No scleral icterus. No injection or drainage. NECK: Supple, trachea midline CARDIOVASCULAR: Midline incision healing well, regular rate and rhythm RESPIRATORY: Bilateral rales, non rebreather mask GASTROINTESTINAL: Abdomen soft, non-tender, nondistended. MUSCULOSKELETAL: No cyanosis, no BLE edema BACK: Nontender without obvious deformity. Laboratory Laboratory Tests Test 09/19/16 09/20/16 18:23 03:40 B-Type Natriuretic Peptide 540 PG/ML White Blood Count 12.1 TH/MM3 Red Blood Count 2.97 MIL/MM3 Hemoglobin 9.0 GM/DL Hematocrit 27.7 % Mean Corpuscular Volume 93.2 FL Mean Corpuscular Hemoglobin 30.3 PG Mean Corpuscular Hemoglobin 32.5 % Concent Red Cell Distribution Width 14.5 % Platelet Count 364 TH/MM3 Mean Platelet Volume 7.7 FL Neutrophils (%) (Auto) 77.3 % Lymphocytes (%) (Auto) 9.8 % Monocytes (%) (Auto) 11.7 % Eosinophils (%) (Auto) 1.0 % Basophils (%) (Auto) 0.2 % Neutrophils # (Auto) 9.3 TH/MM3 Lymphocytes # (Auto) 1.2 TH/MM3 Monocytes # (Auto) 1.4 TH/MM3 Eosinophils # (Auto) 0.1 TH/MM3 Basophils # (Auto) 0.0 TH/MM3 CBC Comment DIFF FINAL Differential Comment Sodium Level 134 MEQ/L Potassium Level 4.7 MEQ/L Chloride Level 97 MEQ/L Carbon Dioxide Level 28.0 MEQ/L Anion Gap 9 MEQ/L Blood Urea Nitrogen 88 MG/DL Creatinine 3.31 MG/DL Estimat Glomerular Filtration 18 ML/MIN Rate Random Glucose 96 MG/DL Calcium Level 8.3 MG/DL Imaging Last 72 hours Impressions Chest X-Ray 09/18/16 0400 Signed Impressions: Service Date/Time: Sunday, September 18, 2016 04:44 - CONCLUSION: 1. Cardiomegaly and pulmonary edema. 2. Status post CABG. Jacob Trujillo MD (Elin Kwok) Assessment and Plan Assessment and Plan Status post acute hypoxic respiratory failure requiring ventilator support. Pulmonary edema due to renal failure. Repeat cardiac echo did not show change of LV function. Now recurrent increasing respiratory insufficiency Chest pain, troponin elevated likely due to CKD and had recent NSTEMI. Atrial fibrillation with CVA and TIAs. Patient was on subtherapeutic Eliquis prior to admission. Now on Eliquis 5 mg BID ASHD s/p CABG 08/2016 Thoracic and abdominal aortic aneurysms HTN HLD- intolerant of statin therapy Carotid stenosis Acute on chronic renal failure PLAN: Lasix 60 mg IVP stat, will follow up with scheduled Lasix 40 mg BID. Continue Eliquis, BB, ASA and statin. SBP goal < 130 DBP goal < 90. resume Labetalol conservatively. The patient was seen and evaluated by Dr. Moran who completed a [id number] encounter, completed a physical exam and participated in evaluation and management. (Elin Kwok) Assessment and Plan Extubated doing better (Suellen Moran MD) Elin Kwok Sep 20, 2016 09:16 Suellen Moran MD Sep 20, 2016 14:37
--- NOTE | 2016-09-20 12:20 | HHI.NPPN ---
Subjective History of Present Illness The patient is a 75 yo [place] male who presented to this facility 09/08 with complaints of R hand weakness. He was here at this facility just 10 days ago for 4-vessel CABG, discharged on 08/29. While undergoing CABG, he suffered a stroke and came in today as he was concerned he was having another. Was having no other neurological issues. We were consulted for acute renal failure. Presenting SCr of 3.65 that has worsened significantly from discharge on 08/29 at 1.53. Appears baseline renal function 1.2-1.6 according to previous records. States he has been at his usual state of health since his hospital discharge besides R hand weakness that resolved on its own while here in the ED. Denies any NVD. No NSAIDs. Denies any urinary issues. Review of previous imaging (namely CTA on 08/24) showed a L sided hydronephrosis extending to UVJ. THe patient was unaware of this. He has hx of bladder CA that was treated by surgical resection at [facility] about 1 year ago. Scheduled for f/u there in 1 month. CTA also revealed abdominal aneurysm that vascular surgery was consulted about and was supposed to have f/u as outpatient. Interval History Patient denying shortness of breath on questioning however does appear to be slightly dyspneic. Review of Systems General Constitutional: Fatigue Objective Data Data 09/19/16 09/20/16 19:00 07:00 Intake Total 780 ml 1000 ml Output Total 750 ml 1600 ml Balance 30 ml -600 ml Intake Oral 780 ml 960 ml IV Total 0 ml 40 ml Output Urine Total 750 ml 1600 ml # Bowel Movements 0 1 Vital Signs Date Time Temp Pulse Resp B/P Pulse Ox O2 Delivery O2 Flow Rate FiO2 09/20/16 10:00 100 09/20/16 08:00 98.6 100 40 142/67 94 09/20/16 08:00 95 09/20/16 07:05 Non-Rebreather 15.00 09/20/16 07:00 97 Non-Rebreather 15.00 09/20/16 06:00 98 09/20/16 04:00 97 09/20/16 04:00 99.0 95 24 125/70 93 09/20/16 02:00 96 09/20/16 00:00 95 09/20/16 00:00 99.0 95 25 149/72 97 09/19/16 22:55 98 Partial Non-Rebreather 15.00 09/19/16 22:55 97 Non-Rebreather 15.00 09/19/16 22:00 104 09/19/16 21:00 92 Venturi Mask 15.00 50 09/19/16 21:00 93 Venturi Mask 50 09/19/16 20:00 98.3 100 20 160/78 91 09/19/16 20:00 100 09/19/16 19:00 90 Nasal Cannula 4.00 09/19/16 18:00 100 09/19/16 16:00 95 09/19/16 16:00 98.5 97 28 149/74 91 09/19/16 14:00 94 -: 09/20/16 0340 09/20/16 0340 Physical Exam General Appearance: No Acute Distress, Comfortable Eyes Eye Exam: Sclera White Pulmonary Resp Exam: Clear Bilaterally, Breath Sounds Equal, No Distress Cardiology CV Exam: Normal Sinus Rhythm, Irregular Gastrointestinal/Abdomen GI Exam: Soft, Non-Tender Integumentary Skin Exam: Clear, Warm, Normal Turgor Extremeties Extremities Exam: No Edema Neurologic Neuro Exam: Alert, Awake Assessment/Plan Discussed Condition With: Patient, Spouse Problem List: (1) Acute kidney failure Plan: Primary consideration at this point in time given history of recent angiogram prior to admission and extensive atherosclerotic disease is acute renal sufficiency secondary to atheroembolic disease which can be associated with declining kidney function in a stepwise fashion several weeks after the initial insult.. Unfortunately if the patient has indeed developed renal injury from an atheroembolic episode progressive azotemia can occur in which case admission may become dialysis dependent. There is no specific treatment for atheroembolic renal disease. Definitive diagnosis could be made by kidney biopsy however this would not alter clinical management and the patient is clinically unstable. Also history of recent acute cerebrovascular event. Serological studies and bland urinalysis not consistent with an autoimmune related acute glomerulonephritis. Urology has evaluated the patient and they do not believe that the patient has obstructive uropathy. I contacted the patient's pharmacy and apparently he was prescribed Protonix. Medication related interstitial nephritis is lesser consideration presently however believe it would be prudent to avoid Protonix as discussed with critical care. Kidney biopsy would give a definitive diagnosis however patient presently not stable for same and uncertain if it would change current management and patient does not appear to be clinically stable for same.. The patient's creatinine level has improved slightly these last 2 days and his urine output appears to be adequate with negative I&O. Diuretic therapy as ordered by primary care physician with monitoring of volume status and renal indices.. Despite repeated counseling of the patient and his regarding the above- mentioned considered etiologies as well as providing her with a not a call from the [facility] regarding atheroembolic disease the patient's still appears to have very little insight into these issues and her husbands current clinical status., I reviewed the literature with her again and counseled her again regarding the above-mentioned considerations and plan of management as well as the severity of her husbands renal insufficiency and the possibility that dialytic support may have to be considered. Discussion took place in layman's terms and at length. All questions were were addressed. Uncertain of status of transfer to the [facility]. We'll defer to primary care physician in this regard. Despite improvement noted above the patient is still appears to be dyspneic. Will order repeat chest x-ray. Medications should be adjusted for the patient's renal decline. Avoid nephrotoxic medications including NSAIDs and iodinated contrast dyes. Gadolinium should be avoided as eGFR 30. (2) CKD (chronic kidney disease) stage 3, GFR 30-59 ml/min Plan: Renal ultrasound shows changes consistent with CKD with cortical atrophy bilaterally. (3) Metabolic acidosis Plan: Improved. (4) TIA (transient ischemic attack) Plan: The indicated to me she was not aware that her may have had a recurrence of an acute cerebrovascular event. I advised her to discuss the situation with neurology to clarify whether or not patient had experienced another TIA and or CVA just prior to this admission. (5) Hypoalbuminemia Plan: Likely related to malnourishment. SPEP, ANSELMO, K/L within normal limits (6) Hypertension (7) CAD (coronary artery disease) (8) Congestive heart failure Plan: Improved clinically. Diuretics as clinically indicated. (9) Anemia Plan: Iron level and iron saturation below normal. Defer further evaluation to primary care physician. Problem Qualifiers (1) TIA (transient ischemic attack): Qualified Code: G45.9 - Transient cerebral ischemia, unspecified type Liv Cerda MD Sep 20, 2016 12:20
[2016-09-20] MEDS: LABETALOL HCL 100 MG TAB PO SCH ×2 (13:03→17:55)
--- NOTE | 2016-09-20 13:54 | HHI.PR ---
Subjective Remarks Follow-up acute renal failure, respiratory failure. The patient developed increasing respiratory distress overnight. He was placed on nonrebreather mask and was able to maintain oxygen saturations in the mid to upper 90s. He is more confused and lethargic today. His is at bedside and asked me to contact the patient PCP. Objective Vitals Vital Signs Date Time Temp Pulse Resp B/P Pulse Ox O2 Delivery O2 Flow Rate FiO2 09/20/16 12:00 98.6 94 28 134/76 97 09/20/16 12:00 89 09/20/16 10:00 100 09/20/16 08:00 98.6 100 40 142/67 94 09/20/16 08:00 95 09/20/16 07:05 Non-Rebreather 15.00 09/20/16 07:00 97 Non-Rebreather 15.00 09/20/16 06:00 98 09/20/16 04:00 97 09/20/16 04:00 99.0 95 24 125/70 93 09/20/16 02:00 96 09/20/16 00:00 95 09/20/16 00:00 99.0 95 25 149/72 97 09/19/16 22:55 98 Partial Non-Rebreather 15.00 09/19/16 22:55 97 Non-Rebreather 15.00 09/19/16 22:00 104 09/19/16 21:00 92 Venturi Mask 15.00 50 09/19/16 21:00 93 Venturi Mask 50 09/19/16 20:00 98.3 100 20 160/78 91 09/19/16 20:00 100 09/19/16 19:00 90 Nasal Cannula 4.00 09/19/16 18:00 100 09/19/16 16:00 95 09/19/16 16:00 98.5 97 28 149/74 91 09/19/16 14:00 94 I/O 09/19/16 09/19/16 09/19/16 09/20/16 09/20/16 09/20/16 06:59 14:59 22:59 06:59 14:59 22:59 Intake Total 240 ml 780 ml 490 ml 510 ml Output Total 650 ml 750 ml 850 ml 750 ml Balance -410 ml 30 ml -360 ml -240 ml Intake Oral 240 ml 780 ml 480 ml 480 ml IV Total 0 ml 10 ml 30 ml Output Urine Total 650 ml 750 ml 850 ml 750 ml # Bowel Movements 0 0 1 0 Result Diagram: 09/20/16 0340 09/20/16 0340 Imaging Last Impressions Chest X-Ray 09/18/16 0400 Signed Impressions: Service Date/Time: Sunday, September 18, 2016 04:44 - CONCLUSION: 1. Cardiomegaly and pulmonary edema. 2. Status post CABG. Jacob Trujillo MD Head Magnetic Resonance Angiography 09/10/16 1028 Signed Impressions: Service Date/Time: Saturday, September 10, 2016 10:57 - CONCLUSION: 1. Unremarkable MRA examination without evidence for large vessel occlusion, aneurysm, or vascular malformation. Richardson Haney MD Brain MRI 09/10/16 1028 Signed Impressions: Service Date/Time: Saturday, September 10, 2016 10:57 - CONCLUSION: 1. Findings most consistent with new embolic infarcts involving both the anterior and posterior circulation. Richardson Haney MD Carotid Artery Ultrasound 09/09/16 1028 Signed Impressions: Service Date/Time: September 10:43 - CONCLUSION: 1. Moderate visible plaque without hemodynamically significant stenosis identified. No significant change from August 25. Amado Crain MD Renal Ultrasound 09/09/16 0000 Signed Impressions: Service Date/Time: September 15:41 - CONCLUSION: 1. Cortical atrophy with small bilateral renal cysts. No hydronephrosis. Amado Crain MD Head CT 09/08/16 2251 Signed Impressions: Service Date/Time: Thursday, September 08, 2016 23:41 - CONCLUSION: Stable noncontrast CT with no evidence of hemorrhage or acute infarction. Atrophy and chronic small vessel splenic changes remain. Sanya Cavazos MD Objective Remarks General: Elderly male. On nonrebreather mask. Heart: Bilateral crackles. No murmur. Lungs: Clear to auscultation bilaterally. No wheezes, rales, or rhonchi. Breathing is nonlabored. Abdomen: Soft, nontender, nondistended. Extremities: No lower extremity edema. Psych: Lethargic. Procedures none Urinary Catheter: Yes Assessment to: Continue Franco insert reason: ICU Pt Getting Diuretics Vascular Central Line Catheter: No A/P Problem List: (1) Acute hypoxemic respiratory failure ICD Code: J96.01 Status: Acute (2) Fluid overload ICD Code: E87.70 Status: Acute (3) ANNY (acute kidney injury) ICD Code: N17.9 Status: Acute (4) Cerebrovascular accident (CVA) due to embolism ICD Code: I63.9 Status: Acute (5) CKD (chronic kidney disease), stage III ICD Code: N18.3 Status: Chronic (6) Leukocytosis ICD Code: D72.829 Status: Acute (7) CAD (coronary artery disease) ICD Code: I25.10 Status: Chronic (8) Hyperkalemia ICD Code: E87.5 Status: Resolved Assessment and Plan 1. Hypoxemic respiratory failure: Patient was intubated and maintained on ventilator for approximately 30 hours. She has had worsening respiratory distress and is now on nonrebreather mask. He was given 60 mg IV Lasix by cardiology. Stat chest x-ray is pending. 2. Acute renal failure: Appreciate nephrology recommendations. Creatinine trending down. 3. Encephalopathy: Improved. 4. Diabetes mellitus: Monitor Accu-Cheks and cover with sliding scale insulin. 5. Fluid overload: Continue diuresis. Appreciate cardiology recommendations. Discussed with Dr. Moran. 6. GI prophylaxis: Zantac. 7. DVT prophylaxis: Eliquis. I spoke with the patient's PCP, Dr. Patrick, at the request of the patient and his . Will consider transfer to [facility] at patient's request once he is more stable. Discharge Planning The patient and his are requesting transfer to [place] or [facility], where he could see his physicians. Pradip Palmer MD Sep 20, 2016 13:54
--- NOTE | 2016-09-20 14:25 | RADRPT ---
EXAM DATE/TIME: 09/20/2016 13:54 [facility] COMPARISON: CHEST SINGLE AP, September 18, 2016, 4:44. INDICATIONS : Shortness of breath. MEDICAL HISTORY : Myocardial infarction. Hypercholesterolemia. Hypertension. CAD, A-fib, SURGICAL HISTORY : Abdominal aortic aneurysm repair. Pacemaker. Coronary artery stent, ENCOUNTER: Subsequent ACUITY: 4 - 6 days PAIN SCORE: 0/10 LOCATION: Bilateral chest FINDINGS: Portable AP view of the chest demonstrates a mildly enlarged cardiac silhouette with calcification of the aorta. Patient is post median sternotomy. Right subclavian central line tip is in the SVC near t he cavoatrial junction. There is bilateral airspace consolidation, mildly increased in the right midl dorene zone and left lung base. No pneumothorax or pleural effusion is identified. CONCLUSION: Bilateral airspace consolidation, mildly increased in the right midlung zone and left lung base. Jarad Delgado MD on September 20, 2016 at 14:21 Board Certified Radiologist. This report was verified electronically.
[2016-09-20] MEDS ORDERED: Vancomycin Consult Pharmacy 1 EA OTHER SCH (14:45)
[2016-09-20] MEDS ORDERED: VANCOMYCIN 1,500 MG/NS 500 ML IV ONE ×2 (15:00)
[2016-09-20] MEDS: PIPERACIL-TAZO 3.375 GM PREMIX 50 ML IV SCH ×2 (15:37→21:03)
[2016-09-20] MEDS: AZTREONAM INJ 1,000 MG in SODIUM CHLORIDE 0.9% INJ 100 ML IV SCH ×2 (15:37→23:28)
[2016-09-20] MEDS ORDERED: VANCOMYCIN INJ 1,750 MG in SODIUM CHLORID 0.9% 500 ML INJ 500 ML IV ONE (16:00)
--- NOTE | 2016-09-20 16:29 | HHI.CCPN ---
Subjective Remarks/Hospital Course 75 y/o man now about 4 weeks following CABG complicated by CVA. Presented back 08/28 with new onset right arm weakness. Hospital course has been complicated by CKD and fluid overload. We have attempted BiPAP for several hours but he remains in distress and although oxygenation is acceptable work of breathing is excessive. Worrisome increasing metabolic acidosis. 09/17: Gas exchange much improved. BNP 1681, ScVO2 71%. It appears that cardiac output is more than adequate for peripheral needs and the primary pathology is renal failure and fluid overload. If we can manage volume I can probably get him extubated. 09/18: Diffuse crackles. Needs to be diuresed today. Tolerating extubation but at risk for hypoxemic failure again. Subjective 09/20 - Re consulted due to worsening hypoxia. Currently on nonrebreather mask. Chest x-ray shows worsening consolidation right lobe creatinine slightly improved over. Family request transfer to [facility]. We'll attempt to decipher status currently unknown. Objective Vital Signs Date Time Temp Pulse Resp B/P Pulse Ox O2 Delivery O2 Flow Rate FiO2 09/20/16 14:00 86 09/20/16 12:00 98.6 28 134/76 97 09/20/16 07:05 Non-Rebreather 15.00 09/19/16 21:00 50 Intake and Output 09/19/16 09/19/16 09/19/16 07:59 15:59 23:59 Intake Total 240 ml 780 ml 490 ml Output Total 650 ml 750 ml 850 ml Balance -410 ml 30 ml -360 ml Result Diagram: 09/20/16 0340 09/20/16 0340 Other Results Microbiology Date/Time Procedure Status Source Growth 09/16/16 16:00 Aerobic Blood Culture - Preliminary Resulted Blood Peripheral NO GROWTH IN 4 DAYS 09/16/16 16:00 Anaerobic Blood Culture - Preliminary Resulted Blood Peripheral NO GROWTH IN 4 DAYS Imaging Last Impressions Chest X-Ray 09/20/16 0000 Signed Impressions: Service Date/Time: Tuesday, September 20, 2016 13:54 - CONCLUSION: Bilateral airspace consolidation, mildly increased in the right midlung zone and left lung base. Jarad Delgado MD Head Magnetic Resonance Angiography 09/10/16 1028 Signed Impressions: Service Date/Time: Saturday, September 10, 2016 10:57 - CONCLUSION: 1. Unremarkable MRA examination without evidence for large vessel occlusion, aneurysm, or vascular malformation. Richardson Haney MD Brain MRI 09/10/16 1028 Signed Impressions: Service Date/Time: Saturday, September 10, 2016 10:57 - CONCLUSION: 1. Findings most consistent with new embolic infarcts involving both the anterior and posterior circulation. Richardson Haney MD Carotid Artery Ultrasound 09/09/16 1028 Signed Impressions: Service Date/Time: September 10:43 - CONCLUSION: 1. Moderate visible plaque without hemodynamically significant stenosis identified. No significant change from August 25. Amado Crain MD Renal Ultrasound 09/09/16 0000 Signed Impressions: Service Date/Time: , September 09, 2016 15:41 - CONCLUSION: 1. Cortical atrophy with small bilateral renal cysts. No hydronephrosis. Amado Crain MD Head CT 09/08/16 2251 Signed Impressions: Service Date/Time: Thursday, September 08, 2016 23:41 - CONCLUSION: Stable noncontrast CT with no evidence of hemorrhage or acute infarction. Atrophy and chronic small vessel splenic changes remain. Sanya Cavazos MD Objective Remarks GENERAL: 75-year-old male, critically ill currently nonrebreather mask SKIN: Warm and dry. HEAD: Atraumatic. Normocephalic. EYES: Pupils equal and round. No scleral icterus. No injection or drainage. ENT: No nasal bleeding or discharge. Mucous membranes pink and moist. NECK: Trachea midline. No JVD. CARDIOVASCULAR: Regular rate and rhythm. S1-S2. No S4. RESPIRATORY: Crackles appreciated throughout lung steiner) left. Breath sounds equal bilaterally. GASTROINTESTINAL: Abdomen soft, non-tender, nondistended. Hepatic and splenic margins not palpable. MUSCULOSKELETAL: Extremities with trace lower extremity edema. No obvious deformities. NEUROLOGICAL: Awake and alert. No obvious cranial nerve deficits. Some vision loss. Procedures none A/P Assessment and Plan Neuro/Psych: Left occipital, bilateral frontal parietal cerebellar CVA subacute Chronic headaches Chronic benzodiazepine use Chronic oxycodone use MRI brain revealed left occipital, bilateral frontal parietal and cerebellar CVA likely [employer] distribution Evaluated by Dr. Jeffries/neurology. Currently in Xanax 0.25 mg every 6 hours. Anxiety CV: Coronary disease CABG ASCVD Carotid stenosis TAAA Hypertension dyslipidemia History atrial fibrillation status post ablation 2011 Followed by cardiology. Currently on labetalol 100 mg 3 times a day Currently off atorvastatin 40 mg daily/home medication Currently not on aspirin Echocardiogram revealed EF 70%. OHS septal motion./Paradoxical, CARA 50-60 mmHg Resp: Acute hypoxemic respiratory failure Currently a nonrebreather mask saturations 97% when awake. Chest x-ray 09/20 reveals worsening consolidation right upper, middle and lower lobes. Bronchodilator therapy as indicated Follow chest x-ray in a.m. At high risk for respiratory intubation GI: Advance diet as tolerated /renal: History of hydroureter Renal ultrasound Revealed no hydronephrosis Currently on sodium bicarbonate 650 every 8 On furosemide 40 mg IV twice a day Creatinine 3.31 today. Endo: Sliding scale insulin if indicated Renal: Acute on chronic kidney injury Currently on furosemide 40 mg IV twice a day Noted elevated lambda and kappa Chains/ESR likely secondary underlying acute kidney injury. Evaluated by Dr. Mccollum/hematology Heme: History of colon cancer status post partial colectomy History of bladder cancer Leukocytosis normocytic anemia ID: Possible hospital-acquired pneumonia Currently on vancomycin, Zosyn and aztreonam. consulted infectious disease. Blood cultures 06/04 no growth FEN: Hyponatremia MSK: PT evaluate and treat Prophylaxis - GI - Zantac - DVT - SCD/Eliquis Access - Right subclavian CVL placed 09/16 Level II follow-up Zay Romero MD Sep 20, 2016 16:29
[2016-09-20] MEDS ORDERED: FAMOTIDINE 20 MG TAB PO SCH (17:00)
[2016-09-20] MEDS: FUROSEMIDE 40 MG/4 ML VIAL IV PUSH SCH (17:55)
[2016-09-20] MEDS: ALPRAZolam 0.25 MG TAB PO PRN (20:49)
[2016-09-20 21:59] LABS: BLOOD GAS BASE EXCESS 1.6 mmol/L (-2-2); BLOOD GAS CARBOXYHEMOGLOBIN 1.9 % (0-4); BLOOD GAS HCO3 26 mmol/L (22-26); BLOOD GAS METHEMOGLOBIN 0.9 % (0-2); BLOOD GAS O2 HGB SATURATION 94 % (90-100); BLOOD GAS OXYGEN CONTENT 11.5 Vol % (12.0-20.0); BLOOD GAS PCO2 40 mmHg (38-42); BLOOD GAS PO2 86 mmHg (61-120); BLOOD GAS TOTAL HGB 8.6 G/DL (12.0-16.0); CRITICAL VALUE NO; DRAW SITE RT BRACHIAL; FIO2 100 %; LITER FLOW 15 L/M; NUMBER OF ARTERIAL PUNCTURES 1; OXYGEN DEVICE NONE REBREATHER; TEMP CORR TO 98.6
[2016-09-20 22:00] LABS: STAT YES
[2016-09-20] MEDS ORDERED: FUROSEMIDE 40 MG/4 ML VIAL IV PUSH ONE (23:00)
[2016-09-21] VITALS (14 sets, daily range): BP systolic 110–128; BP diastolic 56–65; PULSE 80–97; RESP 25–32; TEMP 97.6–98.1; O2SAT 90–95
[2016-09-21 02:35] LABS: AUTOMATED NEUTROPHIL # 10.3 TH/MM3 (1.8-7.7); BASOPHIL % 0.2 % (0.0-2.0); EOSINOPHIL # 0.4 TH/MM3 (0-0.4); EOSINOPHIL % 3.5 % (0.0-4.0); HEMATOCRIT 26.1 % (39.0-51.0); HEMO FLAGS DIFF FINAL; LYMPHOCYTE # 0.9 TH/MM3 (1.0-4.8); MEAN CELL VOLUME 92.3 FL (80.0-100.0); MEAN CORPUSCULAR HEMOGLOBIN 30.7 PG (27.0-34.0); MEAN CORPUSCULAR HGB CONC 33.3 % (32.0-36.0); MONO % 7.3 % (0.0-8.0); PLATELET COUNT 298 TH/MM3 (150-450); RED BLOOD COUNT 2.83 MIL/MM3 (4.50-5.90); RED CELL DISTRIBUTION WIDTH 14.3 % (11.6-17.2); WHITE BLOOD COUNT 12.6 TH/MM3 (4.0-11.0)
[2016-09-21 02:49] LABS: BICARBONATE 27.6 MEQ/L (21.0-32.0); MAGNESIUM 2.4 MG/DL (1.5-2.5); POTASSIUM 4.5 MEQ/L (3.5-5.1)
[2016-09-21] MEDS: PIPERACIL-TAZO 3.375 GM PREMIX 50 ML IV SCH ×2 (03:31→09:24)
[2016-09-21] MEDS: SODIUM BICARBONATE 650 MG TAB PO SCH ×3 (05:12→20:52)
--- NOTE | 2016-09-21 05:31 | RADRPT ---
EXAM DATE/TIME: 09/21/2016 04:27 [facility] COMPARISON: CHEST SINGLE AP, September 20, 2016, 13:54. INDICATIONS : Shortness of breath. MEDICAL HISTORY : Myocardial infarction. Hypercholesterolemia. Hypertension. CAD, A-fib, GERD, Colon cancer, Bladder ca ncer. SURGICAL HISTORY : Abdominal aortic aneurysm repair. Pacemaker. Coronary artery stent, Bilateral Carotid Endardectomy. ENCOUNTER: Subsequent ACUITY: 1 week PAIN SCORE: Non-responsive. LOCATION: Bilateral chest FINDINGS: The patient is rotated towards the right. Right subclavian catheter tip projects in the right atrium . Diffuse partially consolidative infiltrates throughout both lungs sparing the right costophrenic a ngle. Both hemidiaphragms remain well delineated. The severity of the infiltrates is similar when t aking into account patient rotation. CONCLUSION: Severe diffuse bilateral airspace opacities, stable from prior. Lane Martinez MD on September 21, 2016 at 5:29 Board Certified Radiologist. This report was verified electronically.
[2016-09-21] MEDS: CHLORHEXIDINE 0.12% (ORAL KIT) 15 ML CUP MT SCH ×2 (07:34→20:00)
[2016-09-21] MEDS: SODIUM CHLORIDE 0.9% FLUSH 10 ML FLUSH IV FLUSH SCH ×2 (07:34→20:52)
[2016-09-21] MEDS: LABETALOL HCL 100 MG TAB PO SCH ×3 (07:58→18:12)
[2016-09-21] MEDS: APIXABAN 5 MG TABLET PO SCH ×2 (07:58→20:52)
[2016-09-21] MEDS: DOCUSATE SODIUM 50 MG/SENNA 8.6 MG TAB PO SCH ×2 (07:58→20:52)
[2016-09-21] MEDS: AZTREONAM INJ 1,000 MG in SODIUM CHLORIDE 0.9% INJ 100 ML IV SCH ×3 (07:58→23:30)
[2016-09-21] MEDS: FUROSEMIDE 40 MG/4 ML VIAL IV PUSH SCH (07:58)
[2016-09-21] MEDS: FAMOTIDINE 20 MG TAB PO SCH (07:58)
--- NOTE | 2016-09-21 11:54 | HHI.CCPN ---
Subjective Remarks/Hospital Course 75 y/o man now about 4 weeks following CABG complicated by CVA. Presented back 08/28 with new onset right arm weakness. Hospital course has been complicated by CKD and fluid overload. We have attempted BiPAP for several hours but he remains in distress and although oxygenation is acceptable work of breathing is excessive. Worrisome increasing metabolic acidosis. 09/17: Gas exchange much improved. BNP 1681, ScVO2 71%. It appears that cardiac output is more than adequate for peripheral needs and the primary pathology is renal failure and fluid overload. If we can manage volume I can probably get him extubated. 09/18: Diffuse crackles. Needs to be diuresed today. Tolerating extubation but at risk for hypoxemic failure again. 09/20 - Re consulted due to worsening hypoxia. Currently on nonrebreather mask. Chest x-ray shows worsening consolidation right lobe creatinine slightly improved over. Family request transfer to [facility] however refused. We'll attempt to decipher status currently unknown. Subjective 09/21: Remains on nonrebreather mask. Saturations between 89-97%. Chest x-ray unchanged. Not tachypnea. Not confused. Objective Vital Signs Date Time Temp Pulse Resp B/P Pulse Ox O2 Delivery O2 Flow Rate FiO2 09/21/16 10:00 89 09/21/16 08:00 97.6 29 112/60 94 09/21/16 07:00 Non-Rebreather 15.00 09/20/16 22:39 100 Intake and Output 09/20/16 09/20/16 09/20/16 07:59 15:59 23:59 Intake Total 510 ml 240 ml 816 ml Output Total 750 ml 1500 ml 1000 ml Balance -240 ml -1260 ml -184 ml Result Diagram: 09/21/16 0200 09/21/16 0200 Other Results Microbiology Date/Time Procedure Status Source Growth 09/16/16 16:00 Aerobic Blood Culture - Final Complete Blood Peripheral NO GROWTH IN 5 DAYS 09/16/16 16:00 Anaerobic Blood Culture - Final Complete Blood Peripheral NO GROWTH IN 5 DAYS Imaging Last Impressions Chest X-Ray 09/21/16 0600 Signed Impressions: Service Date/Time: Wednesday, September 21, 2016 04:27 - CONCLUSION: Severe diffuse bilateral airspace opacities, stable from prior. Lane Martinez MD Head Magnetic Resonance Angiography 09/10/16 1028 Signed Impressions: Service Date/Time: Saturday, September 10, 2016 10:57 - CONCLUSION: 1. Unremarkable MRA examination without evidence for large vessel occlusion, aneurysm, or vascular malformation. Richardson Haney MD Brain MRI 09/10/16 1028 Signed Impressions: Service Date/Time: Saturday, September 10, 2016 10:57 - CONCLUSION: 1. Findings most consistent with new embolic infarcts involving both the anterior and posterior circulation. Richardson Haney MD Carotid Artery Ultrasound 09/09/16 1028 Signed Impressions: Service Date/Time: September 10:43 - CONCLUSION: 1. Moderate visible plaque without hemodynamically significant stenosis identified. No significant change from August 25. Amado Crain MD Renal Ultrasound 09/09/16 0000 Signed Impressions: Service Date/Time: , September 09, 2016 15:41 - CONCLUSION: 1. Cortical atrophy with small bilateral renal cysts. No hydronephrosis. Amado Crain MD Head CT 09/08/16 2251 Signed Impressions: Service Date/Time: Thursday, September 08, 2016 23:41 - CONCLUSION: Stable noncontrast CT with no evidence of hemorrhage or acute infarction. Atrophy and chronic small vessel splenic changes remain. Sanya Cavazos MD Objective Remarks GENERAL: 75-year-old male, critically ill currently nonrebreather mask SKIN: Warm and dry. HEAD: Atraumatic. Normocephalic. EYES: Pupils equal and round. No scleral icterus. No injection or drainage. ENT: No nasal bleeding or discharge. Mucous membranes pink and moist. NECK: Trachea midline. No JVD. CARDIOVASCULAR: Regular rate and rhythm. S1-S2. No S4. RESPIRATORY: Crackles appreciated throughout lung steiner) left. Breath sounds equal bilaterally. GASTROINTESTINAL: Abdomen soft, non-tender, nondistended. Hepatic and splenic margins not palpable. MUSCULOSKELETAL: Extremities with trace lower extremity edema. No obvious deformities. NEUROLOGICAL: Awake and alert. No obvious cranial nerve deficits. Some vision loss. 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 Jeffries/neurology. Currently in Xanax 0.25 mg every 6 hours. Anxiety CV: Coronary disease CABG ASCVD Carotid stenosis TAAA Hypertension dyslipidemia History atrial fibrillation status post ablation 2011 Followed by cardiology. Currently on labetalol 100 mg 3 times a day Currently off atorvastatin 40 mg daily/home medication Currently not on aspirin Echocardiogram revealed EF 70%. OHS septal motion./Paradoxical, CARA 50-60 mmHg Resp: Acute hypoxemic respiratory failure Currently a nonrebreather mask saturations 97% when awake. Chest x-ray 09/21 reveals stable consolidation right upper, middle and lower lobes. Bronchodilator therapy every 6 hours and as indicated Follow chest x-ray in a.m. At high risk for respiratory intubation Routine CT thorax today. GI: Advance diet as tolerated On Pepcid 10 g by mouth daily /renal: History of hydroureter Renal ultrasound Revealed no hydronephrosis Currently on sodium bicarbonate 650 every 8 On furosemide 40 mg IV twice a day Creatinine 3.58 today. Increased 3.31 Endo: Sliding scale insulin if indicated Renal: Acute on chronic kidney injury Currently on furosemide 40 mg IV twice a day Noted elevated lambda and kappa Chains/ESR likely secondary underlying acute kidney injury. Evaluated by Dr. Mccollum/hematology Heme: History of colon cancer status post partial colectomy History of bladder cancer Leukocytosis normocytic anemia Monitor CBC daily. Follow trends. ID: Possible hospital-acquired pneumonia Currently on vancomycin, Zosyn and aztreonam. Blood cultures 2 09/08 no growth FEN: Hyponatremia Elevated phosphorus Monitor BMP, magnesium phosphorus daily. Recheck in AM. MSK: PT evaluate and treat Prophylaxis - GI -famotidine - DVT - SCD/Eliquis Access - Right subclavian CVL placed 09/16 Level II follow-up Zay Romero MD Sep 21, 2016 11:53
[2016-09-21] MEDS: RESP: ALBUTEROL 2.5 MG/IPRATROPIUM 0.5 MG NEB (SCH) NEB ×3 (12:00→20:16)
--- NOTE | 2016-09-21 14:11 | PD.CARD.PN ---
Subjective Subjective Remarks The patient remains guarded, but stable. Diuretic therapy resumed yesterday. I/ O negative. Pending ct chest today. H/H trending down. No obvious source of bleeding. (Elin Kwok) Subjective Remarks The exam, history, and the medical decision-making described in the above note were completed with the assistance of the mid-level provider. I reviewed and agree with the findings presented. I attest that I had a [id number] encounter with the patient on the same day, and personally performed and documented my assessment and findings in the medical record., Very ill but slowly improving (Suellen Moran MD) Objective Medications Current Medications Medications (Trade) Dose Ordered Sig/Awilda Route Start Time Stop Time Status Last Admin (NS Flush) 2 ml UNSCH PRN IV FLUSH 09/09/16 00:45 (NS Flush) 2 ml BID IV FLUSH 09/09/16 09:00 09/21/16 07:34 (Narcan Inj) 0.4 mg UNSCH PRN IV 09/09/16 00:45 (Xanax) 0.25 mg Q6H PRN PO 09/09/16 13:45 09/20/16 20:49 (Pill Splitter) 1 ea UNSCH PRN OTHER 09/09/16 14:00 (Eliquis) 5 mg BID PO 09/10/16 09:00 09/21/16 07:58 (Catapres) 0.1 mg Q6H PRN PO 09/11/16 14:30 09/19/16 23:02 (Sodium Bicarbonate) 650 mg Q8HR PO 09/15/16 22:00 09/21/16 12:59 (Lopressor Inj) 5 mg Q2HR PRN IV PUSH 09/16/16 14:00 09/17/16 09:09 (Apresoline Inj) 10 mg Q6HR PRN IV PUSH 09/16/16 12:45 09/20/16 02:14 (Peridex 0.12% Liq) 15 ml BID@08,20 MT 09/16/16 20:00 09/17/16 09:08 (Anne-Colace) 1 tab BID PO 09/19/16 21:00 09/21/16 07:58 (Milk Of Magnesia Liq) 30 ml Q12H PRN PO 09/19/16 13:30 09/19/16 13:30 (Senokot) 17.2 mg Q12H PRN PO 09/19/16 13:30 (Dulcolax Supp) 10 mg DAILY PRN RECTAL 09/19/16 13:30 (Lactulose Liq) 30 ml DAILY PRN PO 09/19/16 13:30 (Lasix Inj) 40 mg BID@09,18 IV PUSH 09/20/16 18:00 09/21/16 07:58 Labetalol HCl 100 mg 100 mg TID PO 09/20/16 13:00 09/20/16 17:55 Piperacillin Sod/ Tazobactam Sod 50 ml @ 100 mls/hr Q6H IV 09/20/16 16:00 09/21/16 09:24 Aztreonam 1000 mg/ Sodium Chloride 100 ml @ 200 mls/hr Q8H IV 09/20/16 16:00 09/21/16 07:58 (Vancomycin Consult Pharmacy) 0 ml @ 0 mls/hr UNSCH OTHER 09/20/16 14:45 (Pepcid) 10 mg DAILY PO 09/21/16 09:00 09/21/16 07:58 Vital Signs / I&O Vital Signs Date Time Temp Pulse Resp B/P Pulse Ox O2 Delivery O2 Flow Rate FiO2 09/21/16 12:00 98.0 88 25 121/65 92 09/21/16 12:00 88 09/21/16 10:00 89 09/21/16 08:20 94 Non-Rebreather 15.00 09/21/16 08:00 97.6 87 29 112/60 94 09/21/16 08:00 88 09/21/16 07:00 96 Non-Rebreather 15.00 09/21/16 06:00 80 09/21/16 04:00 97.6 89 32 114/63 94 09/21/16 04:00 89 09/21/16 02:00 84 09/21/16 00:00 84 09/21/16 00:00 98.1 84 32 110/56 90 09/20/16 22:39 95 Non-Rebreather 15.00 100 09/20/16 22:00 80 09/20/16 20:00 98.3 78 32 102/54 97 09/20/16 20:00 79 09/20/16 19:00 94 Non-Rebreather 15.00 09/20/16 18:00 85 09/20/16 16:00 99.0 90 29 123/68 93 09/20/16 16:00 90 09/20/16 14:00 86 I/O 09/20/16 09/20/16 09/20/16 09/21/16 09/21/16 09/21/16 07:00 15:00 23:00 07:00 15:00 23:00 Intake Total 510 ml 240 ml 816 ml 320 ml Output Total 750 ml 1500 ml 1000 ml 1300 ml Balance -240 ml -1260 ml -184 ml -980 ml Intake Oral 480 ml 240 ml 120 ml 120 ml IV Total 30 ml 0 ml 696 ml 200 ml Output Urine Total 750 ml 1500 ml 1000 ml 1300 ml # Bowel Movements 0 0 0 2 Physical Exam GENERAL: Elderly male, mild distress SKIN: Warm and dry. HEAD: Normocephalic. EYES: No scleral icterus. No injection or drainage. NECK: Supple, trachea midline CARDIOVASCULAR: Midline incision healing well, regular rate and rhythm RESPIRATORY: Bilateral rales, non rebreather mask GASTROINTESTINAL: Abdomen soft, non-tender, nondistended. MUSCULOSKELETAL: No cyanosis, no BLE edema BACK: Nontender without obvious deformity. Laboratory Laboratory Tests Test 09/20/16 09/21/16 21:45 02:00 Blood Gas Puncture Site RT BRACHIAL Blood Gas Patient Temperature 98.6 Blood Gas HCO3 26 mmol/L Blood Gas Base Excess 1.6 mmol/L Blood Gas Oxygen Saturation 94 % Arterial Blood pH 7.42 Arterial Blood Partial 40 mmHg Pressure CO2 Arterial Blood Partial 86 mmHg Pressure O2 Arterial Blood Oxygen Content 11.5 Vol % Arterial Blood 1.9 % Carboxyhemoglobin Arterial Blood Methemoglobin 0.9 % Blood Gas Hemoglobin 8.6 G/DL Oxygen Delivery Device NONE REBREATHER Blood Gas Liter Flow 15 L/M Blood Gas Inspired Oxygen 100 % White Blood Count 12.6 TH/MM3 Red Blood Count 2.83 MIL/MM3 Hemoglobin 8.7 GM/DL Hematocrit 26.1 % Mean Corpuscular Volume 92.3 FL Mean Corpuscular Hemoglobin 30.7 PG Mean Corpuscular Hemoglobin 33.3 % Concent Red Cell Distribution Width 14.3 % Platelet Count 298 TH/MM3 Mean Platelet Volume 7.8 FL Neutrophils (%) (Auto) 82.0 % Lymphocytes (%) (Auto) 7.0 % Monocytes (%) (Auto) 7.3 % Eosinophils (%) (Auto) 3.5 % Basophils (%) (Auto) 0.2 % Neutrophils # (Auto) 10.3 TH/MM3 Lymphocytes # (Auto) 0.9 TH/MM3 Monocytes # (Auto) 0.9 TH/MM3 Eosinophils # (Auto) 0.4 TH/MM3 Basophils # (Auto) 0.0 TH/MM3 CBC Comment DIFF FINAL Differential Comment Sodium Level 134 MEQ/L Potassium Level 4.5 MEQ/L Chloride Level 97 MEQ/L Carbon Dioxide Level 27.6 MEQ/L Anion Gap 9 MEQ/L Blood Urea Nitrogen 92 MG/DL Creatinine 3.57 MG/DL Estimat Glomerular Filtration 17 ML/MIN Rate Random Glucose 96 MG/DL Calcium Level 8.6 MG/DL Phosphorus Level 6.6 MG/DL Magnesium Level 2.4 MG/DL Random Vancomycin Level 21.9 COMMENT Imaging Last 72 hours Impressions Chest X-Ray 09/21/16 0600 Signed Impressions: Service Date/Time: Wednesday, September 21, 2016 04:27 - CONCLUSION: Severe diffuse bilateral airspace opacities, stable from prior. Lane Martinez MD Chest X-Ray 09/20/16 0000 Signed Impressions: Service Date/Time: Tuesday, September 20, 2016 13:54 - CONCLUSION: Bilateral airspace consolidation, mildly increased in the right midlung zone and left lung base. Jarad Delgado MD (Elin Kwok) Assessment and Plan Assessment and Plan Status post acute hypoxic respiratory failure requiring ventilator support. Pulmonary edema due to renal failure. Repeat cardiac echo did not show change of LV function. Now recurrent increasing respiratory insufficiency. New pneumonia. Pending CT chest. Chest pain, troponin elevated likely due to CKD and had recent NSTEMI. Atrial fibrillation with CVA and TIAs. Patient was on subtherapeutic Eliquis prior to admission. 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 Intolerant of metoprolol due to hallucinations. Will hold off resuming ASA for now . H/H trending down. He has been intolerant of multiple statins in the past. Will consider resuming therapy once the patient stabilizes. SBP goal < 130 DBP goal < 90. Continue Labetalol with hold parameters The patient was seen and evaluated by Dr. Moran who completed a [id number] encounter, completed a physical exam and participated in evaluation and management. (Elin Kwok) Elin Kwok Sep 21, 2016 14:11 Suellen Moran MD Sep 23, 2016 15:24
--- NOTE | 2016-09-21 15:47 | HHI.NPPN ---
Subjective History of Present Illness The patient is a 75 yo [place] male who presented to this facility 09/08 with complaints of R hand weakness. He was here at this facility just 10 days ago for 4-vessel CABG, discharged on 08/29. While undergoing CABG, he suffered a stroke and came in today as he was concerned he was having another. Was having no other neurological issues. We were consulted for acute renal failure. Presenting SCr of 3.65 that has worsened significantly from discharge on 08/29 at 1.53. Appears baseline renal function 1.2-1.6 according to previous records. States he has been at his usual state of health since his hospital discharge besides R hand weakness that resolved on its own while here in the ED. Denies any NVD. No NSAIDs. Denies any urinary issues. Review of previous imaging (namely CTA on 08/24) showed a L sided hydronephrosis extending to UVJ. THe patient was unaware of this. He has hx of bladder CA that was treated by surgical resection at [facility] about 1 year ago. Scheduled for f/u there in 1 month. CTA also revealed abdominal aneurysm that vascular surgery was consulted about and was supposed to have f/u as outpatient. Interval History Chest x-ray result noted. by bedside. Patient with nonrebreather. Respiratory status appears to be improved as compared to yesterday. Review of Systems General Constitutional: Fatigue Objective Data Data 09/20/16 09/21/16 19:00 07:00 Intake Total 240 ml 1136 ml Output Total 1500 ml 2300 ml Balance -1260 ml -1164 ml Intake Oral 240 ml 240 ml IV Total 0 ml 896 ml Output Urine Total 1500 ml 2300 ml # Bowel Movements 0 2 Vital Signs Date Time Temp Pulse Resp B/P Pulse Ox O2 Delivery O2 Flow Rate FiO2 09/21/16 12:00 98.0 88 25 121/65 92 09/21/16 12:00 88 09/21/16 10:00 89 09/21/16 08:20 94 Non-Rebreather 15.00 09/21/16 08:00 97.6 87 29 112/60 94 09/21/16 08:00 88 09/21/16 07:00 96 Non-Rebreather 15.00 09/21/16 06:00 80 09/21/16 04:00 97.6 89 32 114/63 94 09/21/16 04:00 89 09/21/16 02:00 84 09/21/16 00:00 84 09/21/16 00:00 98.1 84 32 110/56 90 09/20/16 22:39 95 Non-Rebreather 15.00 100 09/20/16 22:00 80 09/20/16 20:00 98.3 78 32 102/54 97 09/20/16 20:00 79 09/20/16 19:00 94 Non-Rebreather 15.00 09/20/16 18:00 85 09/20/16 16:00 99.0 90 29 123/68 93 09/20/16 16:00 90 -: 09/21/16 0200 09/21/16 0200 Physical Exam General Appearance: No Acute Distress, Comfortable Eyes Eye Exam: Sclera White Pulmonary Resp Exam: Clear Bilaterally, Breath Sounds Equal, No Distress Cardiology CV Exam: Normal Sinus Rhythm, Irregular Gastrointestinal/Abdomen GI Exam: Soft, Non-Tender Integumentary Skin Exam: Clear, Warm Skin Remarks Skin turgor diminished. Extremeties Extremities Exam: No Edema Neurologic Neuro Exam: Alert, Awake Assessment/Plan Discussed Condition With: Patient, Spouse Problem List: (1) Acute kidney failure Plan: Primary consideration at this point in time given history of recent angiogram prior to admission and extensive atherosclerotic disease is acute renal sufficiency secondary to atheroembolic disease which can be associated with declining kidney function in a stepwise fashion several weeks after the initial insult.. Unfortunately if the patient has indeed developed renal injury from an atheroembolic episode progressive azotemia can occur in which case admission may become dialysis dependent. There is no specific treatment for atheroembolic renal disease. Definitive diagnosis could be made by kidney biopsy however this would not alter clinical management and the patient is clinically unstable. Also history of recent acute cerebrovascular event. Serological studies and bland urinalysis not consistent with an autoimmune related acute glomerulonephritis. Urology has evaluated the patient and they do not believe that the patient has obstructive uropathy. The patient did have evidence of eosinophilia on peripheral white cell count on presentation since resolved. There is no evidence however of urine eosinophilia. I contacted the patient's pharmacy and apparently he was prescribed Protonix. Medication related interstitial nephritis is lesser consideration presently however believe it would be prudent to avoid Protonix as discussed with critical care. Kidney biopsy would give a definitive diagnosis however patient presently not stable for same and uncertain if it would change current management and patient does not appear to be clinically stable for same.. The patient's creatinine level has improved slightly these last 2 days and his urine output appears to be adequate with negative I&O. Diuretic therapy as ordered by primary care physician with monitoring of volume status and renal indices.. Despite repeated counseling of the patient and his regarding the above- mentioned considered etiologies as well as providing her with a not a call from the [facility] regarding atheroembolic disease the patient's still appears to have very little insight into these issues and her husbands current clinical status., I reviewed the literature with her again and counseled her again regarding the above-mentioned considerations and plan of management as well as the severity of her husbands renal insufficiency and the possibility that dialytic support may have to be considered. Discussion took place in layman's terms and at length. All questions were were addressed. Patient's volume status has improved and it appears that he has a superimposed pneumonia at this point in time. I believe it would be prudent to reduce diuretic therapy presently with monitoring of volume status and renal indices. Primary respiratory issue at this point in time appears to be infectious. No acute indication for dialysis presently but I indicated to the again that her is close to renal failure and dialysis may become a consideration. Apparently attempts to transfer to the [facility] have been declined and the patient also contacted the primary care physician outpatient regarding transfer to [facility] and again declined. I indicated to her that she could obtain a second opinion regarding a facilitator if she so wishes and she indicated that she did want a second opinion. I conveyed this to critical care. I will follow the patient at the wishes however if she wishes to continue with another facilitator I would be happy to step aside. Medications should be adjusted for the patient's renal decline. Avoid nephrotoxic medications including NSAIDs and iodinated contrast dyes. Gadolinium should be avoided as eGFR 30. (2) CKD (chronic kidney disease) stage 3, GFR 30-59 ml/min Plan: Renal ultrasound shows changes consistent with CKD with cortical atrophy bilaterally. (3) Metabolic acidosis Plan: Improved. (4) TIA (transient ischemic attack) Plan: The indicated to me she was not aware that her may have had a recurrence of an acute cerebrovascular event. I advised her to discuss the situation with neurology to clarify whether or not patient had experienced another TIA and or CVA just prior to this admission. (5) Hypoalbuminemia Plan: Likely related to malnourishment. SPEP, ANSELMO, K/L within normal limits (6) Hypertension (7) CAD (coronary artery disease) (8) Congestive heart failure Plan: Improved clinically. Primary respiratory issue this point in time appears to be infectious. Reduction of diuretic as ordered. (9) Anemia Plan: Iron level and iron saturation below normal. Defer further evaluation to primary care physician. Problem Qualifiers (1) TIA (transient ischemic attack): Qualified Code: G45.9 - Transient cerebral ischemia, unspecified type Liv Cerda MD Sep 21, 2016 15:47
--- NOTE | 2016-09-21 17:20 | PD.CONS ---
[facility] Service Nephrology Consult Requested By Dr. Romero Reason for Consult 2nd opinion regarding evaluation and management of his kidney status. Primary Care Physician Yaya Patrick M.D. History of Present Illness Ms. Hartley is a 75 year old male who underwent cardiac cath after STEMI, and then underwent emergent CABG. He suffered CVA during surgery. His creatinine was 1.53 on 08/29/16 around the time of discharge. Patient was readmitted on 09/08/16 with weakness, and he thought that he was having another stroke. Patient's creatinine was 3.65. It has mostly remained about the same, with some fluctuations, most recent creatinine of 3.57 as of 09/21. He is non oliguric. His admission weight was 99.1, today it is 91. He has been diuresed, but is hypoxic, CXR revealing diffuse bilateral infiltrates. He does have leukocytosis. Patient has had negative serological workup. Betty/lambda both were high, he was evaluated by Ichthyology Teacher, and it was thought to be secondary to renal failure, with no evidence of paraproteinemia. Renal US was negative for hydronephrosis. He has been evaluated by urology, and they have opined that he does not have obstructive uropathy. UA has been unremarkable. Review of Systems ROS Limitations: Clinical Condition Eyes: DENIES: Blurred vision Respiratory: COMPLAINS OF: Shortness of breath Cardiovascular: COMPLAINS OF: Dyspnea on Exertion, Orthopnea Gastrointestinal: DENIES: Abdominal pain, Black stools, Bloody stools Musculoskeletal: DENIES: Joint pain, Muscle aches, Stiffness Past Family Social History Allergies: Coded Allergies: atorvastatin (Verified Allergy, Severe, back pain and chest pain, 09/21/16) PATIENT REPORTS HE CAN NOT TAKE ANY STATINS PERIOD. HE LOSES USE OF HIS LEGS pravastatin (Verified Allergy, Severe, 09/21/16) PATIENT REPORTS HE CAN NOT TAKE ANY STATINS PERIOD. HE LOSES USE OF HIS LEGS simvastatin (Verified Allergy, Severe, body aches, 09/21/16) PATIENT REPORTS HE CAN NOT TAKE ANY STATINS PERIOD. HE LOSES USE OF HIS LEGS Past Medical History CVA while in surgery (CABG) CAD Afib with ablation Hypertension Hyperlipidemia Colon cancer status post resection AAA status post repair Chest aortic aneurysm ascending about 5 cm per the patient Bladder Cancer, s/p TURB Past Surgical History CABG in August Ablation for Afib Colectomy Carotid endarterectomy Bladder cancer removal Reported Medications Reported Meds & Active Scripts Active Thera M Plus (Multivitamins/Minerals Therapeutic) 1 Tab 1 Tab PO DAILY Metoprolol Tartrate 25 Mg Tab 12.5 Mg PO BID Dok (Docusate Sodium) 100 Mg Cap 100 Mg PO BID PRN Eliquis (Apixaban) 2.5 Mg Tab 2.5 Mg PO BID Reported Oxycodone (Oxycodone HCl) 5 Mg Cap Mg PO Q4H PRN Aspirin 325 Mg Tab 325 Mg PO ONCE Aspirin 81 Mg Chew 81 Mg CHEW DAILY Xanax (Alprazolam) 0.25 Mg Tab 0.25 Mg PO Q6H PRN Active Ordered Medications Current Medications Medications (Trade) Dose Ordered Sig/Awidla Route Start Time Stop Time Status Last Admin (NS Flush) 2 ml UNSCH PRN IV FLUSH 09/09/16 00:45 (NS Flush) 2 ml BID IV FLUSH 09/09/16 09:00 09/21/16 07:34 (Narcan Inj) 0.4 mg UNSCH PRN IV 09/09/16 00:45 (Xanax) 0.25 mg Q6H PRN PO 09/09/16 13:45 09/20/16 20:49 (Pill Splitter) 1 ea UNSCH PRN OTHER 09/09/16 14:00 (Eliquis) 5 mg BID PO 09/10/16 09:00 09/21/16 07:58 (Catapres) 0.1 mg Q6H PRN PO 09/11/16 14:30 09/19/16 23:02 (Sodium Bicarbonate) 650 mg Q8HR PO 09/15/16 22:00 09/21/16 12:59 (Lopressor Inj) 5 mg Q2HR PRN IV PUSH 09/16/16 14:00 09/17/16 09:09 (Apresoline Inj) 10 mg Q6HR PRN IV PUSH 09/16/16 12:45 09/20/16 02:14 (Peridex 0.12% Liq) 15 ml BID@08,20 MT 09/16/16 20:00 09/17/16 09:08 (Anne-Colace) 1 tab BID PO 09/19/16 21:00 09/21/16 07:58 (Milk Of Magnesia Liq) 30 ml Q12H PRN PO 09/19/16 13:30 09/19/16 13:30 (Senokot) 17.2 mg Q12H PRN PO 09/19/16 13:30 (Dulcolax Supp) 10 mg DAILY PRN RECTAL 09/19/16 13:30 (Lactulose Liq) 30 ml DAILY PRN PO 09/19/16 13:30 Labetalol HCl 100 mg 100 mg TID PO 09/20/16 13:00 09/20/16 17:55 Aztreonam 1000 mg/ Sodium Chloride 100 ml @ 200 mls/hr Q8H IV 09/20/16 16:00 09/21/16 16:23 (Vancomycin Consult Pharmacy) 0 ml @ 0 mls/hr UNSCH OTHER 09/20/16 14:45 (Pepcid) 10 mg DAILY PO 09/21/16 09:00 09/21/16 07:58 (Lasix Inj) 40 mg DAILY IV PUSH 09/22/16 09:00 Calcium Acetate 667 mg 667 mg TID PO 09/21/16 18:00 (Zosyn 2.25 Gm Premix) 50 ml @ 100 mls/hr Q8H IV 09/21/16 18:00 Family History reviewed, non contributory Social History no tobacco for 19 years. No ETOH Physical Exam Vital Signs Vital Signs Date Time Temp Pulse Resp B/P Pulse Ox O2 Delivery O2 Flow Rate FiO2 09/21/16 16:00 98.0 88 25 128/60 92 09/21/16 16:00 97 09/21/16 14:00 94 09/21/16 12:00 98.0 88 25 121/65 92 09/21/16 12:00 88 09/21/16 10:00 89 09/21/16 08:20 94 Non-Rebreather 15.00 09/21/16 08:00 97.6 87 29 112/60 94 09/21/16 08:00 88 09/21/16 07:00 96 Non-Rebreather 15.00 09/21/16 06:00 80 09/21/16 04:00 97.6 89 32 114/63 94 09/21/16 04:00 89 09/21/16 02:00 84 09/21/16 00:00 84 09/21/16 00:00 98.1 84 32 110/56 90 09/20/16 22:39 95 Non-Rebreather 15.00 100 09/20/16 22:00 80 09/20/16 20:00 98.3 78 32 102/54 97 09/20/16 20:00 79 09/20/16 19:00 94 Non-Rebreather 15.00 09/20/16 18:00 85 Physical Exam GENERAL: he is hypoxic, somewhat confused. He is on oxygen by NRB, 15 liters SKIN: Warm and dry. HEAD: Normocephalic. EYES: No scleral icterus. No injection or drainage. NECK: Supple, trachea midline. No JVD or lymphadenopathy. CARDIOVASCULAR: tachycardic. RESPIRATORY: coarse breath sounds, rhonchi and crackles. GASTROINTESTINAL: Abdomen soft, non-tender, nondistended. MUSCULOSKELETAL: No cyanosis, or edema. BACK: Nontender without obvious deformity. No CVA tenderness. Laboratory Laboratory Tests Test 09/20/16 09/21/16 21:45 02:00 Blood Gas Puncture Site RT BRACHIAL Blood Gas Patient Temperature 98.6 Blood Gas HCO3 26 Blood Gas Base Excess 1.6 Blood Gas Oxygen Saturation 94 Arterial Blood pH 7.42 Arterial Blood Partial 40 Pressure CO2 Arterial Blood Partial 86 Pressure O2 Arterial Blood Oxygen Content 11.5 Arterial Blood 1.9 Carboxyhemoglobin Arterial Blood Methemoglobin 0.9 Blood Gas Hemoglobin 8.6 Oxygen Delivery Device NONE REBREATHER Blood Gas Liter Flow 15 Blood Gas Inspired Oxygen 100 White Blood Count 12.6 Red Blood Count 2.83 Hemoglobin 8.7 Hematocrit 26.1 Mean Corpuscular Volume 92.3 Mean Corpuscular Hemoglobin 30.7 Mean Corpuscular Hemoglobin 33.3 Concent Red Cell Distribution Width 14.3 Platelet Count 298 Mean Platelet Volume 7.8 Neutrophils (%) (Auto) 82.0 Lymphocytes (%) (Auto) 7.0 Monocytes (%) (Auto) 7.3 Eosinophils (%) (Auto) 3.5 Basophils (%) (Auto) 0.2 Neutrophils # (Auto) 10.3 Lymphocytes # (Auto) 0.9 Monocytes # (Auto) 0.9 Eosinophils # (Auto) 0.4 Basophils # (Auto) 0.0 CBC Comment DIFF FINAL Differential Comment Sodium Level 134 Potassium Level 4.5 Chloride Level 97 Carbon Dioxide Level 27.6 Anion Gap 9 Blood Urea Nitrogen 92 Creatinine 3.57 Estimat Glomerular Filtration 17 Rate Random Glucose 96 Calcium Level 8.6 Phosphorus Level 6.6 Magnesium Level 2.4 Random Vancomycin Level 21.9 Result Diagram: 09/21/1619909/21/16199 Assessment and Plan Problem List: (1) Acute kidney failure Plan: Patient appeared to have stage III CKD at the time of discharge from the hospital in August. When he was readmitted he was in acute renal failure, non oliguric, renal function has mostly remained about the same. Etiology is not clear, but there are several possibilities: Allergic interstitial nephritis. Consider steroids empirically. Cholesterol embolization. ATN. Since he has hypoxia with diffuse pulmonary infiltrates, obtain anti-GBM antibody(unlikely in the absence of hematuria and proteinuria in the UA), also obtain hepatitis profile and cryoglobulin (also these are unlikely in the presence of normal complements). Clinically he does not appear to be in fluid overload. Withdraw diuretics: discussed with Dr. Romero. Supportive care, possible intubation. Avoid nephrotoxic agents. Dialysis if renal function worsens. Renal biopsy: he is not stable, will be of low yield. No immediate need for dialysis, but it may be indicated in case GFR worsens or if he becomes oliguric. I discussed with patient's over the phone. Thanks for the consult. Dr. Cerda to resume care. I will sign off. Time spent: 65 minutes. (2) CKD (chronic kidney disease) stage 3, GFR 30-59 ml/min (3) Metabolic acidosis (4) TIA (transient ischemic attack) (5) Hypoalbuminemia (6) Hypertension (7) CAD (coronary artery disease) (8) Congestive heart failure (9) Anemia Problem Qualifiers (1) TIA (transient ischemic attack): Qualified Code: G45.9 - Transient cerebral ischemia, unspecified type Todd Chaudhary MD Sep 21, 2016 17:20
[2016-09-21] MEDS: CALCIUM ACETATE 667 MG CAP PO SCH (18:12)
[2016-09-21] MEDS: PIPERACIL-TAZO 2.25 GM PREMIX 50 ML IV SCH (18:12)
[2016-09-21] MEDS: ALPRAZolam 0.25 MG TAB PO PRN (22:08)
--- NOTE | 2016-09-21 23:22 | RADRPT ---
EXAM DATE/TIME: 09/21/2016 22:34 [facility] COMPARISON: CHEST SINGLE AP, September 21, 2016, 4:27. INDICATIONS : Shortness of breath. RADIATION DOSE: 9.58 CTDIvol (mGy) MEDICAL HISTORY : Myocardial infarction. Hypercholesterolemia. Hypertension. CAD. A-fib. Colon cancer. Bladder cancer. SURGICAL HISTORY : Abdominal aortic aneurysm repair. CABGCoronary artery stent. ENCOUNTER: Subsequent ACUITY: 1 week PAIN SCALE: 0/10 LOCATION: Bilateral chest TECHNIQUE: Volumetric scanning of the chest was performed. Using automated exposure control and adjustment of t he mA and/or kV according to patient size, radiation dose was kept as low as reasonably achievable to obtain optimal diagnostic quality images. DICOM format image data is available electronically for r eview and comparison. Follow-up recommendations for detected pulmonary nodules are based at a minimum on nodule size and pa tient risk factors according to Fleischner Society Guidelines. FINDINGS: LUNGS: Diffuse airspace opacities throughout both lungs with increased ground substance and air bronchograms . Only a few small areas are spared scattered throughout the upper and midlungs. Some of the brando ecture of the lungs is discernible through the opacities. PLEURAE: There is no pleural thickening or pleural effusion. MEDIASTINUM: Scattered mediastinal lymph nodes measure up to 1.8 cm. Prior median sternotomy. Coronary artery ca lcifications. No pericardial thickening. A aneurysmal dilation and tortuosity of the descending tho racic aorta, measuring 4.9 cm in the proximal descending aorta and 5.5 cm and the distal descending a crispin. Ascending aorta is normal in size. AXILLAE: Within normal limits. No lymphadenopathy. MUSCULOSKELETAL: Within normal limits for patient age. MISCELLANEOUS: The visualized upper abdominal organs demonstrate no acute abnormality. CONCLUSION: 1. Diffuse airspace opacities with ground glass appearance throughout both lungs. 2. Moderate-sized bilateral pleural effusions. 3. Ectatic and dilated descending thoracic aorta, measuring up to 5.[address] Martinez MD on September 21, 2016 at 23:15 Board Certified Radiologist. This report was verified electronically.
[2016-09-22] VITALS (16 sets, daily range): BP systolic 108–137; BP diastolic 55–71; PULSE 85–106; RESP 19–30; TEMP 97.9–100.1; O2SAT 88–100
[2016-09-22] MEDS: PIPERACIL-TAZO 2.25 GM PREMIX 50 ML IV SCH ×3 (01:32→16:52)
[2016-09-22] MEDS: SODIUM BICARBONATE 650 MG TAB PO SCH ×3 (06:18→21:36)
--- NOTE | 2016-09-22 06:52 | HHI.CCPN ---
Subjective Remarks/Hospital Course 75 y/o man now about 4 weeks following CABG complicated by CVA. Presented back 08/28 with new onset right arm weakness. Hospital course has been complicated by CKD and fluid overload. We have attempted BiPAP for several hours but he remains in distress and although oxygenation is acceptable work of breathing is excessive. Worrisome increasing metabolic acidosis. 09/17: Gas exchange much improved. BNP 1681, ScVO2 71%. It appears that cardiac output is more than adequate for peripheral needs and the primary pathology is renal failure and fluid overload. If we can manage volume I can probably get him extubated. 09/18: Diffuse crackles. Needs to be diuresed today. Tolerating extubation but at risk for hypoxemic failure again. 09/20 - Re consulted due to worsening hypoxia. Currently on nonrebreather mask. Chest x-ray shows worsening consolidation right lobe creatinine slightly improved over. Family request transfer to [facility] however refused. We'll attempt to decipher status currently unknown. Subjective 09/21: Remains on nonrebreather mask. Saturations between 89-97%. Chest x-ray unchanged. Not tachypnea. Not confused. 09/22: Radiographic studies show diffuse interstitial process with skip areas - more indicative of infectious/inflammatory process. Sats 85% with labored pattern. Required intubation for deteriorating respiratory status. Objective Vital Signs Date Time Temp Pulse Resp B/P Pulse Ox O2 Delivery O2 Flow Rate FiO2 09/22/16 04:00 95 09/22/16 04:00 100.1 26 135/68 92 09/21/16 20:16 Non-Rebreather 15.00 09/20/16 22:39 100 Intake and Output 09/21/16 09/21/16 09/21/16 07:59 15:59 23:59 Intake Total 320 ml 400 ml 275 ml Output Total 1300 ml 2000 ml 1225 ml Balance -980 ml -1600 ml -950 ml Result Diagram: 09/21/16 0200 09/21/16 0200 Imaging Last Impressions Chest X-Ray 09/21/16 0600 Signed Impressions: Service Date/Time: Wednesday, September 21, 2016 04:27 - CONCLUSION: Severe diffuse bilateral airspace opacities, stable from prior. Lane Martinez MD Head Magnetic Resonance Angiography 09/10/16 1028 Signed Impressions: Service Date/Time: Saturday, September 10, 2016 10:57 - CONCLUSION: 1. Unremarkable MRA examination without evidence for large vessel occlusion, aneurysm, or vascular malformation. Richardson Haney MD Brain MRI 09/10/16 1028 Signed Impressions: Service Date/Time: Saturday, September 10, 2016 10:57 - CONCLUSION: 1. Findings most consistent with new embolic infarcts involving both the anterior and posterior circulation. Richardson Haney MD Carotid Artery Ultrasound 09/09/16 1028 Signed Impressions: Service Date/Time: September 10:43 - CONCLUSION: 1. Moderate visible plaque without hemodynamically significant stenosis identified. No significant change from August 25. Amado Crain MD Renal Ultrasound 09/09/16 0000 Signed Impressions: Service Date/Time: , September 09, 2016 15:41 - CONCLUSION: 1. Cortical atrophy with small bilateral renal cysts. No hydronephrosis. Amado Crain MD Head CT 09/08/16 2251 Signed Impressions: Service Date/Time: Thursday, September 08, 2016 23:41 - CONCLUSION: Stable noncontrast CT with no evidence of hemorrhage or acute infarction. Atrophy and chronic small vessel splenic changes remain. Sanya Cavazos MD Objective Remarks GENERAL: 75-year-old male, critically ill currently nonrebreather mask SKIN: Warm and dry. HEAD: Atraumatic. Normocephalic. NECK: Trachea midline. Airway patent. CARDIOVASCULAR: Regular rate and rhythm. S1-S2. No S4. Neck veins are full, not distended. RESPIRATORY: Crackles appreciated throughout lung steiner) left. Breath sounds equal bilaterally. GASTROINTESTINAL: Abdomen soft, non-tender, nondistended. No guarding. BS active. MUSCULOSKELETAL: Extremities with trace lower extremity edema. No obvious deformities. Well perfused. Skin flushed. NEUROLOGICAL: Awake and alert but mildly confused. Thinks he is wearing glasses (not). Refuses BiPAP - which is OK because he needs intubation. Procedures none A/P Assessment and Plan Neuro/Psych: Left occipital, bilateral frontal parietal cerebellar CVA subacute Chronic headaches Chronic benzodiazepine use Chronic oxycodone use MRI brain revealed left occipital, bilateral frontal parietal and cerebellar CVA likely ALFIE/ELECTRONICS RECYCLER distribution Evaluated by Dr. Jeffries/neurology. Currently in Xanax 0.25 mg every 6 hours. Anxiety CV: Coronary disease CABG ASCVD Carotid stenosis TAAA Hypertension dyslipidemia History atrial fibrillation status post ablation 2011 Followed by cardiology. Currently on labetalol 100 mg 3 times a day Currently off atorvastatin 40 mg daily/home medication Currently not on aspirin Echocardiogram revealed EF 70%. OHS septal motion./Paradoxical, CARA 50-60 mmHg Resp: Acute hypoxemic respiratory failure Currently a nonrebreather mask saturations 97% when awake. Chest x-ray 09/21 reveals stable consolidation right upper, middle and lower lobes. Bronchodilator therapy every 6 hours and as indicated Follow chest x-ray in a.m. At high risk for respiratory intubation Routine CT thorax today. Dense bilateral infiltrates and hypoxemia on NRBM. Labored. PRVC vent mode initiated. GI: Advance diet as tolerated On Pepcid 10 g by mouth daily /renal: History of hydroureter Renal ultrasound Revealed no hydronephrosis Currently on sodium bicarbonate 650 every 8 On furosemide 40 mg IV twice a day Creatinine elevated. GFR 15 range. Endo: Sliding scale insulin if indicated Renal: Acute on chronic kidney injury Currently on furosemide 40 mg IV twice a day Noted elevated lambda and kappa Chains/ESR likely secondary underlying acute kidney injury. Evaluated by Dr. Mccollum/hematology Heme: History of colon cancer status post partial colectomy History of bladder cancer Leukocytosis normocytic anemia Monitor CBC daily. Follow trends. ID: Possible hospital-acquired pneumonia Currently on vancomycin, Zosyn and aztreonam. Blood cultures 2 09/08 no growth FEN: Hyponatremia Elevated phosphorus Monitor BMP, magnesium phosphorus daily. Recheck in AM. MSK: PT evaluate and treat Prophylaxis - GI -famotidine - DVT - SCD/Eliquis Access - Right subclavian CVL placed 09/16 Overall impression: Worrisome interstitial process with dense consolidation and some skip areas. Not obviously overloaded, suspect inflammatory process. Deteriorating lung function requires mechanical ventilation. Critically ill and markedly worse clinical status over past 48 hours. Discussed in detail with his . Critical care 44 mins aside from procedures Lionel Cormier MD Sep 22, 2016 06:51
[2016-09-22 07:11] LABS: AUTOMATED NEUTROPHIL # 10.9 TH/MM3 (1.8-7.7); BASOPHIL % 0.2 % (0.0-2.0); EOSINOPHIL # 0.7 TH/MM3 (0-0.4); EOSINOPHIL % 4.9 % (0.0-4.0); HEMO FLAGS DIFF FINAL; LYMPH % 7.9 % (9.0-44.0); LYMPHOCYTE # 1.1 TH/MM3 (1.0-4.8); MEAN CELL VOLUME 92.7 FL (80.0-100.0); MEAN CORPUSCULAR HEMOGLOBIN 31.1 PG (27.0-34.0); MEAN CORPUSCULAR HGB CONC 33.6 % (32.0-36.0); MONO % 5.4 % (0.0-8.0); NEUT % 81.6 % (16.0-70.0); PLATELET COUNT 331 TH/MM3 (150-450); RED BLOOD COUNT 2.81 MIL/MM3 (4.50-5.90); RED CELL DISTRIBUTION WIDTH 14.4 % (11.6-17.2); WHITE BLOOD COUNT 13.4 TH/MM3 (4.0-11.0)
[2016-09-22 07:25] LABS: ALT (GPT) 34 U/L (12-78); ANION GAP 11 MEQ/L (5-15); AST (GOT) 27 U/L (15-37); BLOOD UREA NITROGEN 92 MG/DL (7-18); CHLORIDE 97 MEQ/L (98-107); GLOMERULAR FILTRATION RATE 16 ML/MIN (>89); MAGNESIUM 2.4 MG/DL (1.5-2.5); SODIUM (NA) 136 MEQ/L (136-145)
[2016-09-22 07:27] LABS: ALKALINE PHOSPHATASE 91 U/L (45-117); TOTAL BILIRUBIN ADULT 0.9 MG/DL (0.2-1.0)
[2016-09-22 07:28] LABS: CREATINE KINASE 17 U/L (39-308)
[2016-09-22] MEDS: RESP: ALBUTEROL 2.5 MG/IPRATROPIUM 0.5 MG NEB (SCH) NEB ×4 (07:49→19:33)
[2016-09-22] MEDS: AZTREONAM INJ 1,000 MG in SODIUM CHLORIDE 0.9% INJ 100 ML IV SCH ×3 (08:00→23:33)
[2016-09-22] MEDS: CHLORHEXIDINE 0.12% (ORAL KIT) 15 ML CUP MT SCH ×3 (08:00→19:58)
[2016-09-22 08:17] LABS: BLOOD, URINE TRACE (NEG); GLUCOSE,URINE NEG (NEG); KETONE, URINE NEG (NEG); MUCUS URINE FEW /lpf (OCC); NITRITE,URINE NEG (NEG); PH, URINE 5.5 (5.0-8.5); URINE COLOR YELLOW (YELLW/STRAW)
[2016-09-22 08:18] LABS: COMMENT (UR) CULT NOT INDICATED; CULTURE IF INDICATED CULT NOT INDICATED
[2016-09-22] MEDS: SODIUM CHLORIDE 0.9% FLUSH 10 ML FLUSH IV FLUSH SCH ×2 (08:20→20:34)
[2016-09-22] MEDS ORDERED: FUROSEMIDE 40 MG/4 ML VIAL IV PUSH SCH (09:00)
[2016-09-22] MEDS ORDERED: MIDAZOLAM HCL 5 MG/ML VIAL (1 ML) ONE (09:31)
[2016-09-22] MEDS ORDERED: ROCURONIUM INJ 50 MG/5 ML VIAL ONE (09:31)
--- NOTE | 2016-09-22 10:02 | PD.PROCEDR ---
Procedure Note Procedure DX: Hypoxemic Respiratory Failure (J96.01) OP: Orotracheal Intubation (61604) Procedure: Bag mask ventilation. Versed 5 mg IV X 2, rocuronium 100 mg iv. Intubated orally with 8.0 tube. Position confirmed with CO2 detection, breath sounds, sats 98%. CXR ordered, will review. Lionel Cormier MD Sep 22, 2016 10:02
--- NOTE | 2016-09-22 10:38 | RADRPT ---
EXAM DATE/TIME: 09/22/2016 10:01 [facility] COMPARISON: CHEST SINGLE AP, September 21, 2016, 4:27. INDICATIONS : Et tube and NG tube placement. MEDICAL HISTORY : Carcinoma, bladder. Myocardial infarction. Hypercholesterolemia. Hypertension. CAD. A-fib. [place] n cancer. SURGICAL HISTORY : Abdominal aortic aneurysm repair. CABGCoronary artery stent. ENCOUNTER: Subsequent ACUITY: 1 week PAIN SCORE: Non-responsive. LOCATION: Bilateral chest FINDINGS: A single AP semierect view of the chest was obtained and demonstrates interval intubation with the en dotracheal tube tip approximately 4 centimeters above the thor. A nasogastric tube has been placed with the tip near the level of the gastroesophageal junction. The side port is at the level of the di stal esophagus. The right-sided PICC line remains in place. There has been an interval improvement in the bilateral pulmonary infiltrates with mild residual in the upper lobes. The heart size is at the upper limits of normal. There is no effusion. The bony thorax remains intact with overlying electroca rdiogram leads. The patient is status post median sternotomy. CONCLUSION: 1. Interval intubation. 2. Interval placement of nasogastric tube with the tip at the level gastroesophageal junction and the side-port at the level of distal esophagus. This could be advanced at least 8 cm into the stomach. 3. Interval improvement in bilateral pulmonary infiltrates with mild residual. Sanya Cavazos MD on September 22, 2016 at 10:32 Board Certified Radiologist. This report was verified electronically.
[2016-09-22] MEDS ORDERED: VANCOMYCIN INJ 1,500 MG in SODIUM CHLORID 0.9% 500 ML INJ 500 ML IV ONE (11:00)
[2016-09-22] MEDS: APIXABAN 5 MG TABLET PO SCH ×2 (11:32→20:34)
[2016-09-22] MEDS: DOCUSATE SODIUM 50 MG/SENNA 8.6 MG TAB PO SCH ×2 (11:32→20:35)
[2016-09-22] MEDS: FAMOTIDINE 20 MG TAB PO SCH (11:32)
[2016-09-22] MEDS: CALCIUM ACETATE 667 MG CAP PO SCH ×3 (11:32→16:52)
[2016-09-22] MEDS: LABETALOL HCL 100 MG TAB PO SCH ×3 (11:32→16:52)
[2016-09-22] MEDS: BENEPROTEIN POWDER 1 PACK G-TUBE SCH ×2 (13:00→16:52)
--- NOTE | 2016-09-22 14:20 | PD.CARD.PN ---
Subjective Subjective Remarks The patient was intubated this morning for hypoxic respiratory failure. He is currently hemodynamically stable. Objective Medications Current Medications Medications (Trade) Dose Ordered Sig/Awilda Route Start Time Stop Time Status Last Admin (NS Flush) 2 ml UNSCH PRN IV FLUSH 09/09/16 00:45 (NS Flush) 2 ml BID IV FLUSH 09/09/16 09:00 09/22/16 08:20 (Narcan Inj) 0.4 mg UNSCH PRN IV 09/09/16 00:45 (Xanax) 0.25 mg Q6H PRN PO 09/09/16 13:45 09/21/16 22:08 (Pill Splitter) 1 ea UNSCH PRN OTHER 09/09/16 14:00 (Eliquis) 5 mg BID PO 09/10/16 09:00 09/22/16 11:32 (Catapres) 0.1 mg Q6H PRN PO 09/11/16 14:30 09/19/16 23:02 (Sodium Bicarbonate) 650 mg Q8HR PO 09/15/16 22:00 09/22/16 13:29 (Lopressor Inj) 5 mg Q2HR PRN IV PUSH 09/16/16 14:00 09/17/16 09:09 (Apresoline Inj) 10 mg Q6HR PRN IV PUSH 09/16/16 12:45 09/20/16 02:14 (Peridex 0.12% Liq) 15 ml BID@08,20 MT 09/16/16 20:00 09/22/16 08:00 (Anne-Colace) 1 tab BID PO 09/19/16 21:00 09/22/16 11:32 (Milk Of Magnesia Liq) 30 ml Q12H PRN PO 09/19/16 13:30 09/19/16 13:30 (Senokot) 17.2 mg Q12H PRN PO 09/19/16 13:30 (Dulcolax Supp) 10 mg DAILY PRN RECTAL 09/19/16 13:30 (Lactulose Liq) 30 ml DAILY PRN PO 09/19/16 13:30 Labetalol HCl 100 mg 100 mg TID PO 09/20/16 13:00 09/22/16 11:32 Aztreonam 1000 mg/ Sodium Chloride 100 ml @ 200 mls/hr Q8H IV 09/20/16 16:00 09/22/16 08:00 (Vancomycin Consult Pharmacy) 0 ml @ 0 mls/hr UNSCH OTHER 09/20/16 14:45 (Pepcid) 10 mg DAILY PO 09/21/16 09:00 09/22/16 11:32 (Lasix Inj) 40 mg DAILY IV PUSH 09/22/16 09:00 09/22/16 09:00 Calcium Acetate 667 mg 667 mg TID PO 09/21/16 18:00 09/22/16 13:28 (Zosyn 2.25 Gm Premix) 50 ml @ 100 mls/hr Q8H IV 09/21/16 18:00 09/22/16 10:00 Chlorhexidine Gluconate 15 ml 15 ml BID@08,20 MT 09/22/16 20:00 (Diprivan 1000 Mg/100ml Inj) 100 ml @ 0 mls/hr TITRATE IV 09/22/16 10:00 (Beneprotein Powder) 1 pack TID G-TUBE 09/22/16 13:00 Vital Signs / I&O Vital Signs Date Time Temp Pulse Resp B/P Pulse Ox O2 Delivery O2 Flow Rate FiO2 09/22/16 12:00 90 09/22/16 12:00 50 09/22/16 12:00 98.9 90 24 108/62 95 09/22/16 10:06 92 50 09/22/16 10:00 106 09/22/16 09:45 50 09/22/16 08:00 97 09/22/16 08:00 98.3 97 30 125/61 88 09/22/16 07:51 93 Non-Rebreather 15.00 09/22/16 07:00 88 Non-Rebreather 15.00 09/22/16 06:00 90 09/22/16 04:00 95 09/22/16 04:00 100.1 95 26 135/68 92 09/22/16 02:00 96 09/22/16 00:00 92 09/22/16 00:00 98.7 92 27 118/55 88 09/21/16 22:00 93 09/21/16 20:16 93 Non-Rebreather 15.00 09/21/16 20:00 98.0 88 26 122/58 95 09/21/16 20:00 88 09/21/16 19:00 95 Non-Rebreather 15.00 09/21/16 18:00 95 09/21/16 16:00 98.0 88 25 128/60 92 09/21/16 16:00 97 I/O 09/21/16 09/21/16 09/21/16 09/22/16 09/22/16 09/22/16 06:59 14:59 22:59 06:59 14:59 22:59 Intake Total 320 ml 400 ml 275 ml 160 ml Output Total 1300 ml 2000 ml 1225 ml 775 ml Balance -980 ml -1600 ml -950 ml -615 ml Intake Oral 120 ml 240 ml 120 ml IV Total 200 ml 160 ml 155 ml 160 ml Output Urine Total 1300 ml 2000 ml 1225 ml 775 ml # Bowel Movements 2 0 0 0 Physical Exam GENERAL: Elderly male, intubated and sedated SKIN: Warm and dry. HEAD: Normocephalic. EYES: No scleral icterus. No injection or drainage. NECK: Supple, trachea midline CARDIOVASCULAR: Midline incision healing well, regular rate and rhythm RESPIRATORY: Bilateral rales, intubated GASTROINTESTINAL: Abdomen soft, non-tender, nondistended. MUSCULOSKELETAL: No cyanosis, no BLE edema BACK: Nontender without obvious deformity. Laboratory Laboratory Tests Test 09/22/16 09/22/16 06:25 06:53 White Blood Count 13.4 TH/MM3 Red Blood Count 2.81 MIL/MM3 Hemoglobin 8.7 GM/DL Hematocrit 26.0 % Mean Corpuscular Volume 92.7 FL Mean Corpuscular Hemoglobin 31.1 PG Mean Corpuscular Hemoglobin 33.6 % Concent Red Cell Distribution Width 14.4 % Platelet Count 331 TH/MM3 Mean Platelet Volume 8.2 FL Neutrophils (%) (Auto) 81.6 % Lymphocytes (%) (Auto) 7.9 % Monocytes (%) (Auto) 5.4 % Eosinophils (%) (Auto) 4.9 % Basophils (%) (Auto) 0.2 % Neutrophils # (Auto) 10.9 TH/MM3 Lymphocytes # (Auto) 1.1 TH/MM3 Monocytes # (Auto) 0.7 TH/MM3 Eosinophils # (Auto) 0.7 TH/MM3 Basophils # (Auto) 0.0 TH/MM3 CBC Comment DIFF FINAL Differential Comment Sodium Level 136 MEQ/L Potassium Level 4.0 MEQ/L Chloride Level 97 MEQ/L Carbon Dioxide Level 28.0 MEQ/L Anion Gap 11 MEQ/L Blood Urea Nitrogen 92 MG/DL Creatinine 3.80 MG/DL Estimat Glomerular Filtration 16 ML/MIN Rate Random Glucose 105 MG/DL Calcium Level 8.8 MG/DL Phosphorus Level 5.3 MG/DL Magnesium Level 2.4 MG/DL Total Bilirubin 0.9 MG/DL Aspartate Amino Transf 27 U/L (AST/SGOT) Alanine Aminotransferase 34 U/L (ALT/SGPT) Alkaline Phosphatase 91 U/L Total Creatine Kinase 17 U/L Total Protein 7.0 GM/DL Albumin 2.0 GM/DL Random Vancomycin Level 12.6 COMMENT Hepatitis B Surface Antigen NEGATIVE Hepatitis B Surface Antibody, 1.0 mIU/mL Quant Hepatitis C Antibody NEGATIVE Urine Color YELLOW Urine Turbidity CLEAR Urine pH 5.5 Urine Specific Sharon 1.017 Urine Protein 30 mg/dL Urine Glucose (UA) NEG mg/dL Urine Ketones NEG mg/dL Urine Occult Blood TRACE Urine Nitrite NEG Urine Bilirubin NEG Urine Urobilinogen LESS THAN 2.0 MG/DL Urine Leukocyte Esterase NEG Urine RBC 1 /hpf Urine WBC 1 /hpf Urine Mucus FEW /lpf Microscopic Urinalysis Comment CULT NOT INDICATED Imaging Last 72 hours Impressions Chest X-Ray 09/22/16 0000 Signed Impressions: Service Date/Time: Thursday, September 22, 2016 10:01 - CONCLUSION: 1. Interval intubation. 2. Interval placement of nasogastric tube with the tip at the level gastroesophageal junction and the side-port at the level of distal esophagus. This could be advanced at least 8 cm into the stomach. 3. Interval improvement in bilateral pulmonary infiltrates with mild residual. Sanya Cavazos MD Chest X-Ray 09/21/16 0600 Signed Impressions: Service Date/Time: Wednesday, September 21, 2016 04:27 - CONCLUSION: Severe diffuse bilateral airspace opacities, stable from prior. Lane Martinez MD Chest CT 09/21/16 0000 Signed Impressions: Service Date/Time: Wednesday, September 21, 2016 22:34 - CONCLUSION: 1. Diffuse airspace opacities with ground glass appearance throughout both lungs. 2. Moderate-sized bilateral pleural effusions. 3. Ectatic and dilated descending thoracic aorta, measuring up to 5.[address] Martinez MD Chest X-Ray 09/20/16 0000 Signed Impressions: Service Date/Time: Tuesday, September 20, 2016 13:54 - CONCLUSION: Bilateral airspace consolidation, mildly increased in the right midlung zone and left lung base. Jarad Delgado MD Assessment and Plan Assessment and Plan Status post recurrent acute hypoxic respiratory failure requiring ventilator support. Now with VAP/HCAP. Chest pain, troponin elevated likely due to CKD and had recent NSTEMI. Atrial fibrillation with CVA and TIAs. Patient was on subtherapeutic Eliquis prior to admission. 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 Intolerant of metoprolol due to hallucinations. Will hold off resuming ASA for now . He has been intolerant of multiple statins in the past. Will consider resuming therapy once the patient stabilizes. SBP goal < 130 DBP goal < 90. Continue Labetalol with hold parameters The patient was seen and evaluated by Dr. Moran who completed a [id number] encounter, completed a physical exam and participated in evaluation and management. Elin Kwok Sep 22, 2016 14:20
--- NOTE | 2016-09-22 14:25 | MB ---
cc: SOLA FULTON M.D., FRANKLYN F. MD DATE OF CONSULTATION: 09/22/[address] Fulton REASON FOR CONSULTATION A 75-year-old man with hypoxemic respiratory failure, diffuse bilateral infiltrates, low grade fever, mild leukocytosis. HISTORY OF PRESENT ILLNESS This is a 75-year-old white male who recently underwent coronary artery bypass graft surgery on August 29. The patient was discharged from the hospital on August 30. He reportedly suffered a CVA during surgery. He was extubated and then discharged from the hospital. He was re-admitted to the hospital on September 09 when he was noted to have a TIA and he was noted to have acute renal failure. He was evaluated and subsequently while in the hospital developed respiratory failure and had to be intubated on 09/17/2016. He was subsequently extubated on 09/18/2016. The patient had to be reintubated again today when he developed respiratory failure. He had a CAT scan of the chest which is showing ground-glass bilateral opacities. He is currently intubated and on the ventilator. A sputum culture has been obtained and the results are pending. Blood cultures from 09/16/2016 have no growth. The white blood cell count is 13.4 today. The patient has been mostly afebrile except for a low grade fever of 100.1 earlier today, and prior low grade fever of 100.2 degrees on 09/17/2016. Chest x-ray today is reported as interval improvement in bilateral pulmonary infiltrates. PAST MEDICAL HISTORY 1. Coronary artery disease. 2. History of atrial fibrillation. 3. History of aortic aneurysm. 4. Bladder cancer treated with cystectomy. 5. Coronary artery bypass graft surgery. 6. Colon cancer history. 7. Peripheral vascular disease. 8. Hypertension. 9. History of transurethral resection of bladder tumor. 10.History of abdominal aortic aneurysm repair. ALLERGIES 1. SIMVASTATIN. 2. PRAVASTATIN. 3. ATORVASTATIN. MEDICATIONS 1. Piperacillin/tazobactam. 2. Aztreonam. 3. Vancomycin dose was given today. 4. Lasix. 5. PhosLo. 6. DuoNeb. 7. Pepcid. 8. Trandate. SOCIAL HISTORY Unable to obtain. Per chart no tobacco use, occasional alcohol, no illicit drugs. FAMILY HISTORY Unable to obtain. PHYSICAL EXAMINATION GENERAL: This is a well-developed male who is on the ventilator and is unresponsive currently. He does not appear to be in any acute distress. VITAL SIGNS: Temperature 98.9, BP 108/62, heart rate 90. HEENT: Unable to fully assess. The patient is intubated. HEENT: Sclera is non-icteric. Oropharynx mucosa appears moist. NECK: No swelling or adenopathy. LUNGS: Bilateral rhonchi. HEART: Regular, S1 and S2. No audible murmur, rub or gallop. ABDOMEN: Bowel sounds present. Soft. No tenderness appreciated. RECTAL: Not performed. EXTREMITIES: No clubbing, cyanosis or edema. SKIN: No diffuse rash. NEUROLOGIC: Unable to assess. PSYCH: Unable to assess. LABORATORY WBC 13.4, platelets 331, 81% neutrophils, hemoglobin 8.7. Creatinine 3.80, BUN 92, estimated GFR 16, sodium 136. Liver function tests normal. IMPRESSION 1. Acute respiratory failure. 2. Bilateral lung infiltrates, probable pneumonia. 3. Mild leukocytosis. 4. Probable CHF component to the bilateral pulmonary infiltrates. RECOMMENDATIONS 1. Continue piperacillin/tazobactam. 2. Continue aztreonam, which would also give additional coverage for Pseudomonas which potentially could be causing the lung infiltrates/pneumonia. 3. Monitor sputum culture. 4. Monitor clinical response. Thank you this consultation. I will monitor the patient's progress and make further recommendations on follow-up if necessary. Sae Nova MD FD/PEARL /1:32 PM /1:55 PM BRYAN
--- NOTE | 2016-09-22 17:30 | HHI.NPPN ---
Subjective History of Present Illness The patient is a 75 yo [place] male who presented to this facility 09/08 with complaints of R hand weakness. He was here at this facility just 10 days ago for 4-vessel CABG, discharged on 08/29. While undergoing CABG, he suffered a stroke and came in today as he was concerned he was having another. Was having no other neurological issues. We were consulted for acute renal failure. Presenting SCr of 3.65 that has worsened significantly from discharge on 08/29 at 1.53. Appears baseline renal function 1.2-1.6 according to previous records. States he has been at his usual state of health since his hospital discharge besides R hand weakness that resolved on its own while here in the ED. Denies any NVD. No NSAIDs. Denies any urinary issues. Review of previous imaging (namely CTA on 08/24) showed a L sided hydronephrosis extending to UVJ. THe patient was unaware of this. He has hx of bladder CA that was treated by surgical resection at [facility] about 1 year ago. Scheduled for f/u there in 1 month. CTA also revealed abdominal aneurysm that vascular surgery was consulted about and was supposed to have f/u as outpatient. Interval History Pt had 2nd opinion with Dr. Chaudhary yesterday and we are resuming care today. No family present and the patient was reintubated this AM d/t worsening respiratory distress (Radha Hagen) Review of Systems General General Remarks Unable to obtain 2/2 to clinical condition (Radha Hagen) Objective Data Data 09/21/16 09/22/16 19:00 07:00 Intake Total 400 ml 435 ml Output Total 2000 ml 2000 ml Balance -1600 ml -1565 ml Intake Oral 240 ml 120 ml IV Total 160 ml 315 ml Output Urine Total 2000 ml 2000 ml # Bowel Movements 0 0 Vital Signs Date Time Temp Pulse Resp B/P Pulse Ox O2 Delivery O2 Flow Rate FiO2 09/22/16 16:45 98 50 09/22/16 16:00 50 09/22/16 16:00 98.5 90 19 135/67 100 09/22/16 16:00 90 09/22/16 14:00 85 09/22/16 12:00 90 09/22/16 12:00 50 09/22/16 12:00 98.9 90 24 108/62 95 09/22/16 10:06 92 50 09/22/16 10:00 106 09/22/16 09:45 50 09/22/16 08:00 97 09/22/16 08:00 98.3 97 30 125/61 88 09/22/16 07:51 93 Non-Rebreather 15.00 09/22/16 07:00 88 Non-Rebreather 15.00 09/22/16 06:00 90 09/22/16 04:00 95 09/22/16 04:00 100.1 95 26 135/68 92 09/22/16 02:00 96 09/22/16 00:00 92 09/22/16 00:00 98.7 92 27 118/55 88 09/21/16 22:00 93 09/21/16 20:16 93 Non-Rebreather 15.00 09/21/16 20:00 98.0 88 26 122/58 95 09/21/16 20:00 88 09/21/16 19:00 95 Non-Rebreather 15.00 09/21/16 18:00 95 (Radha Hagen) -: 09/22/16 0625 09/22/16 0625 Microbiology 09/22/16 Gram Stain, Received Pending 09/22/16 Sputum Culture, Received Pending Imaging Last Impressions Chest X-Ray 09/22/16 0000 Signed Impressions: Service Date/Time: Thursday, September 22, 2016 10:01 - CONCLUSION: 1. Interval intubation. 2. Interval placement of nasogastric tube with the tip at the level gastroesophageal junction and the side-port at the level of distal esophagus. This could be advanced at least 8 cm into the stomach. 3. Interval improvement in bilateral pulmonary infiltrates with mild residual. Sanya Cavazos MD Chest CT 09/21/16 0000 Signed Impressions: Service Date/Time: Wednesday, September 21, 2016 22:34 - CONCLUSION: 1. Diffuse airspace opacities with ground glass appearance throughout both lungs. 2. Moderate-sized bilateral pleural effusions. 3. Ectatic and dilated descending thoracic aorta, measuring up to 5.[address] Martinez MD Head Magnetic Resonance Angiography 09/10/16 1028 Signed Impressions: Service Date/Time: Saturday, September 10, 2016 10:57 - CONCLUSION: 1. Unremarkable MRA examination without evidence for large vessel occlusion, aneurysm, or vascular malformation. Richardson Haney MD Brain MRI 09/10/16 1028 Signed Impressions: Service Date/Time: Saturday, September 10, 2016 10:57 - CONCLUSION: 1. Findings most consistent with new embolic infarcts involving both the anterior and posterior circulation. Richardson Haney MD Carotid Artery Ultrasound 09/09/16 1028 Signed Impressions: Service Date/Time: September 10:43 - CONCLUSION: 1. Moderate visible plaque without hemodynamically significant stenosis identified. No significant change from August 25. Amado Crain MD Renal Ultrasound 09/09/16 0000 Signed Impressions: Service Date/Time: September 15:41 - CONCLUSION: 1. Cortical atrophy with small bilateral renal cysts. No hydronephrosis. Amado Crain MD Head CT 09/08/16 2251 Signed Impressions: Service Date/Time: Thursday, September 08, 2016 23:41 - CONCLUSION: Stable noncontrast CT with no evidence of hemorrhage or acute infarction. Atrophy and chronic small vessel splenic changes remain. Sanya Cavazos MD Medication Review Current Medications Medications (Trade) Dose Ordered Sig/Awilda Route Start Time Stop Time Status Last Admin (NS Flush) 2 ml UNSCH PRN IV FLUSH 09/09/16 00:45 (NS Flush) 2 ml BID IV FLUSH 09/09/16 09:00 09/22/16 08:20 (Narcan Inj) 0.4 mg UNSCH PRN IV 09/09/16 00:45 (Xanax) 0.25 mg Q6H PRN PO 09/09/16 13:45 09/21/16 22:08 (Pill Splitter) 1 ea UNSCH PRN OTHER 09/09/16 14:00 (Eliquis) 5 mg BID PO 09/10/16 09:00 09/22/16 11:32 (Catapres) 0.1 mg Q6H PRN PO 09/11/16 14:30 09/19/16 23:02 (Sodium Bicarbonate) 650 mg Q8HR PO 09/15/16 22:00 09/22/16 13:29 (Lopressor Inj) 5 mg Q2HR PRN IV PUSH 09/16/16 14:00 09/17/16 09:09 (Apresoline Inj) 10 mg Q6HR PRN IV PUSH 09/16/16 12:45 09/20/16 02:14 (Peridex 0.12% Liq) 15 ml BID@08,20 MT 09/16/16 20:00 09/22/16 08:00 (Anne-Colace) 1 tab BID PO 09/19/16 21:00 09/22/16 11:32 (Milk Of Magnesia Liq) 30 ml Q12H PRN PO 09/19/16 13:30 09/19/16 13:30 (Senokot) 17.2 mg Q12H PRN PO 09/19/16 13:30 (Dulcolax Supp) 10 mg DAILY PRN RECTAL 09/19/16 13:30 (Lactulose Liq) 30 ml DAILY PRN PO 09/19/16 13:30 Labetalol HCl 100 mg 100 mg TID PO 09/20/16 13:00 09/22/16 16:52 Aztreonam 1000 mg/ Sodium Chloride 100 ml @ 200 mls/hr Q8H IV 09/20/16 16:00 09/22/16 16:52 (Vancomycin Consult Pharmacy) 0 ml @ 0 mls/hr UNSCH OTHER 09/20/16 14:45 (Pepcid) 10 mg DAILY PO 09/21/16 09:00 09/22/16 11:32 (Lasix Inj) 40 mg DAILY IV PUSH 09/22/16 09:00 09/22/16 09:00 Calcium Acetate 667 mg 667 mg TID PO 09/21/16 18:00 09/22/16 16:52 (Zosyn 2.25 Gm Premix) 50 ml @ 100 mls/hr Q8H IV 09/21/16 18:00 09/22/16 16:52 Chlorhexidine Gluconate 15 ml 15 ml BID@08,20 MT 09/22/16 20:00 (Diprivan 1000 Mg/100ml Inj) 100 ml @ 0 mls/hr TITRATE IV 09/22/16 10:00 (Beneprotein Powder) 1 pack TID G-TUBE 09/22/16 13:00 (Radha Hagen) Physical Exam General Appearance: No Acute Distress (Radha Hagen) Eyes Eye Exam: Sclera White (Radha Hagen) Pulmonary Resp Exam: Clear Bilaterally, Breath Sounds Equal, No Distress (Radha Hagen) Cardiology CV Exam: Normal Sinus Rhythm, Irregular (Radha Hagen) Gastrointestinal/Abdomen GI Exam: Soft, Non-Tender (Radha Hagen) Integumentary Skin Exam: Clear, Warm (Radha Hagen) Extremeties Extremities Exam: No Edema (Radha Hagen) Assessment/Plan Discussed Condition With: Patient, Spouse Problem List: (1) Acute kidney failure Plan: Reviewed consultation from Dr. Chaudhary. Additional labs have been ordered (anti-GBM, Hep panel) and negative thus far. At this point, his azotemia is likely worsening d/t volume depletion. He has had negative fluid balance for the last 2 days. Will hold Lasix for the present and monitor renal functions. Primary consideration of ARF is still atheroembolic disease with interstitial nephritis in the differential. Given his continued bland urinary sediment, a GN is not in the primary differential, however, will await results of anti-GBM lab. As his status is not stable at the present, agree with holding off on kidney biopsy at the present as likely would not change treatment plan at the present. Non-oliguric, so dialytic intervention is not urgent at this point, but will be considered if worsening azotemia and decrease in UOP. Consideration can be given to empiric steroid therapy, but given his worsening respiratory status with apparent pneumonia, this may slow down his pulmonary recovery. Would discuss this with and CC teams before initiating therapy. ID now on board Pulmonary consult has also been placed given his recurrent PNA as well as recurrence of eosinophilia. (If OK by CC) Medications should be adjusted for the patient's renal decline. Avoid nephrotoxic medications including NSAIDs and iodinated contrast dyes. Gadolinium should be avoided as eGFR 30. (2) CKD (chronic kidney disease) stage 3, GFR 30-59 ml/min (3) Metabolic acidosis (4) TIA (transient ischemic attack) (5) Hypoalbuminemia (6) Hypertension (7) CAD (coronary artery disease) (8) Congestive heart failure (9) Anemia (Radha Hagen) Plan The exam, history, and the medical decision-making described in the above note were completed with the assistance of the [facility]. (Liv Cerda MD) Problem Qualifiers (1) TIA (transient ischemic attack): Qualified Code: G45.9 - Transient cerebral ischemia, unspecified type Radha Hagen Sep 22, 2016 17:30 Liv Cerda MD Sep 23, 2016 14:41
--- NOTE | 2016-09-22 22:23 | MB ---
cc: RALPH HENSLEY DATE OF CONSULTATION 09/22/2016 REASON FOR CONSULTATION Respiratory failure for ventilator management. HISTORY OF THE PRESENT ILLNESS This is a 75-year-old white male who recently was found to have critical coronary artery disease, underwent coronary artery bypass grafting on August 27, 2016. The patient postoperatively was in the hospital and suffered a CVA and was re-admitted to the hospital with lethargy, hypoxemia and right-sided weakness. He has also been found to have chronic kidney disease and fluid overload and initially was placed on BiPap mask but subsequently due to progressive respiratory failure had to be intubated. He has been on ventilator support. His deterioration has been suspected to be due to erythematous embolization. The patient was intubated emergently approximately a week ago and has remained lethargic but assisting the ventilator and now on FIO2 of 50%. His chest x-ray had shown evidence of bilateral pulmonary infiltrates and a CT scan of the chest was done yesterday which showed diffuse air space opacities with ground-glass appearance throughout both lungs and bilateral pleural effusions and an ectatic descending thoracic aorta measuring 5.5 cm. The patient is partially sedated but does wake up and respond to some commands. PAST MEDICAL HISTORY The patient's past history has included: 1. History of CVA following CABG. 2. History of coronary artery disease. 3. History of hypertension and hyperlipidemia. 4. History of atrial fibrillation. 5. Past history of colon cancer with resection. 6. History of bladder cancer status post TURP. 7. Abdominal aortic aneurysm repair. 8. He has had atrial ablation. 9. He has had a right carotid endarterectomy. ALLERGIES TO ATORVASTATIN AND SIMVASTATIN. MEDICATIONS List was reviewed from the chart. REVIEW OF SYSTEMS Systems review, unable to obtain the patient is on the ventilator support. SOCIAL HISTORY Habits, the patient has a remote history of smoking for 20 years but not recently. No alcohol use. FAMILY HISTORY Noncontributory. PHYSICAL EXAMINATION GENERAL: This moderately overweight elderly man is sedated and intubated. VITAL SIGNS: His blood pressure is 105/50, heart rate was 86, respiratory rate 18-22. Temperature 98.3. HEENT: Head is normocephalic. Pupils are reactive. Tongue is dry. Throat has a few secretions. NECK: Supple with no venous distention. Trachea is midline. No thyroid enlargement. CHEST: Equal movements with diminished breath sounds at the bases with a few bibasilar crackles. HEART: Sounds are irregular S1-S2. No murmur. ABDOMEN: Soft. Protuberant without masses. No organomegaly. EXTREMITIES: Decreased pulses. The patient has some weakness of the right side. Babinski negative. SKIN: Dry and cool. IMPRESSION 1. Acute respiratory failure. 2. Fluid overload status with pulmonary edema. 3. Acute kidney failure. 4. History of cerebrovascular accident. 5. Bibasilar atelectasis with possible pneumonia. 6. History of colon cancer and bladder cancer. PLAN The patient has been placed on FIO2 of 40% and will continue with PEEP of 10, PRVC rate of 18. Chest x-ray to be repeated in the a.m. Nebulized DuoNeb solution continued q.i.d. and if he is clinically stable C-PAP trials to be done in the a.m. Antibiotic therapy will be continued as ordered by infectious disease service. Thank you Dr. Palmer for this consultation. MD SASHA Martinez/SHIRA /6:38 PM /9:56 PM
[2016-09-23] VITALS (17 sets, daily range): BP systolic 108–153; BP diastolic 64–87; PULSE 71–120; RESP 16–26; TEMP 97.7–99; O2SAT 94–99
[2016-09-23] MEDS: PIPERACIL-TAZO 2.25 GM PREMIX 50 ML IV SCH ×3 (01:00→18:00)
[2016-09-23 03:59] LABS: AUTOMATED NEUTROPHIL # 8.6 TH/MM3 (1.8-7.7); BASOPHIL # 0.1 TH/MM3 (0-0.2); BASOPHIL % 0.9 % (0.0-2.0); EOSINOPHIL # 0.9 TH/MM3 (0-0.4); EOSINOPHIL % 7.8 % (0.0-4.0); HEMATOCRIT 26.5 % (39.0-51.0); HEMO FLAGS DIFF FINAL; LYMPHOCYTE # 1.3 TH/MM3 (1.0-4.8); MEAN CELL VOLUME 92.7 FL (80.0-100.0); MEAN CORPUSCULAR HEMOGLOBIN 30.6 PG (27.0-34.0); MONO % 6.4 % (0.0-8.0); NEUT % 73.9 % (16.0-70.0); PLATELET COUNT 358 TH/MM3 (150-450); RED BLOOD COUNT 2.86 MIL/MM3 (4.50-5.90); RED CELL DISTRIBUTION WIDTH 14.7 % (11.6-17.2); WHITE BLOOD COUNT 11.7 TH/MM3 (4.0-11.0)
[2016-09-23] MEDS: PROPOFOL 1000 MG/100 ML INJ 100 ML IV SCH ×2 (04:14→21:05)
[2016-09-23 04:15] LABS: BICARBONATE 31.3 MEQ/L (21.0-32.0)
[2016-09-23] MEDS: SODIUM BICARBONATE 650 MG TAB PO SCH ×3 (05:10→21:05)
[2016-09-23] MEDS: METOPROLOL TARTRATE 5 MG/5 ML VIAL IV PUSH PRN (06:45)
[2016-09-23] MEDS: RESP: ALBUTEROL 2.5 MG/IPRATROPIUM 0.5 MG NEB (SCH) NEB ×4 (07:41→19:51)
[2016-09-23] MEDS: CHLORHEXIDINE 0.12% (ORAL KIT) 15 ML CUP MT SCH ×4 (07:44→20:48)
[2016-09-23] MEDS: SODIUM CHLORIDE 0.9% FLUSH 10 ML FLUSH IV FLUSH SCH ×2 (07:45→20:49)
--- NOTE | 2016-09-23 07:54 | HHI.CCPN ---
Subjective Remarks/Hospital Course 75 y/o man now about 4 weeks following CABG complicated by CVA. Presented back 08/28 with new onset right arm weakness. Hospital course has been complicated by CKD and fluid overload. We have attempted BiPAP for several hours but he remains in distress and although oxygenation is acceptable work of breathing is excessive. Worrisome increasing metabolic acidosis. 09/17: Gas exchange much improved. BNP 1681, ScVO2 71%. It appears that cardiac output is more than adequate for peripheral needs and the primary pathology is renal failure and fluid overload. If we can manage volume I can probably get him extubated. 09/18: Diffuse crackles. Needs to be diuresed today. Tolerating extubation but at risk for hypoxemic failure again. 09/20 - Re consulted due to worsening hypoxia. Currently on nonrebreather mask. Chest x-ray shows worsening consolidation right lobe creatinine slightly improved over. Family request transfer to [facility] however refused. We'll attempt to decipher status currently unknown. Subjective 09/21: Remains on nonrebreather mask. Saturations between 89-97%. Chest x-ray unchanged. Not tachypnea. Not confused. 09/22: Radiographic studies show diffuse interstitial process with skip areas - more indicative of infectious/inflammatory process. Sats 85% with labored pattern. Required intubation for deteriorating respiratory status. 09/23: Gas exchange improving. Pulmonary infiltrates remain very concerning - if most recent sputum is benign I would not be opposed to steroids. Objective Vital Signs Date Time Temp Pulse Resp B/P Pulse Ox O2 Delivery O2 Flow Rate FiO2 09/23/16 07:00 92 Mechanical Ventilator 40 09/23/16 06:00 100 09/23/16 04:00 97.7 20 145/75 09/22/16 07:51 15.00 Intake and Output 09/22/16 09/22/16 09/22/16 07:59 15:59 23:59 Intake Total 160 ml 407 ml 359 ml Output Total 775 ml 775 ml 775 ml Balance -615 ml -368 ml -416 ml Result Diagram: 09/23/16 0330 09/23/16 0330 Imaging Last Impressions Chest X-Ray 09/21/16 0600 Signed Impressions: Service Date/Time: Wednesday, September 21, 2016 04:27 - CONCLUSION: Severe diffuse bilateral airspace opacities, stable from prior. Lane Martinez MD Head Magnetic Resonance Angiography 09/10/16 1028 Signed Impressions: Service Date/Time: Saturday, September 10, 2016 10:57 - CONCLUSION: 1. Unremarkable MRA examination without evidence for large vessel occlusion, aneurysm, or vascular malformation. Richardson Haney MD Brain MRI 09/10/16 1028 Signed Impressions: Service Date/Time: Saturday, September 10, 2016 10:57 - CONCLUSION: 1. Findings most consistent with new embolic infarcts involving both the anterior and posterior circulation. Richardson Haney MD Carotid Artery Ultrasound 09/09/16 1028 Signed Impressions: Service Date/Time: September 10:43 - CONCLUSION: 1. Moderate visible plaque without hemodynamically significant stenosis identified. No significant change from August 25. Amado Crain MD Renal Ultrasound 09/09/16 0000 Signed Impressions: Service Date/Time: September 15:41 - CONCLUSION: 1. Cortical atrophy with small bilateral renal cysts. No hydronephrosis. Amado Crain MD Head CT 09/08/16 2251 Signed Impressions: Service Date/Time: Thursday, September 08, 2016 23:41 - CONCLUSION: Stable noncontrast CT with no evidence of hemorrhage or acute infarction. Atrophy and chronic small vessel splenic changes remain. Sanya Cavazos MD Objective Remarks GENERAL: 75-year-old male, ill-appearing. SKIN: Warm and dry. HEAD: Atraumatic. Normocephalic. NECK: Trachea midline. Oral intubation. CARDIOVASCULAR: Regular rate and rhythm. S1-S2. No S4. Neck veins are full, not distended. RESPIRATORY: Crackles appreciated throughout lung steiner) left. Breath sounds equal bilaterally. GASTROINTESTINAL: Abdomen soft, non-tender, nondistended. No guarding. BS active. MUSCULOSKELETAL: Extremities with trace lower extremity edema. No obvious deformities. Well perfused. Skin flushed. NEUROLOGICAL: Lightly sedated for vent synchrony. Moves 4 limbs. Opens eyes. HUSSEIN. Procedures none A/P Assessment and Plan Neuro/Psych: Left occipital, bilateral frontal parietal cerebellar CVA subacute Chronic headaches Chronic benzodiazepine use Chronic oxycodone use MRI brain revealed left occipital, bilateral frontal parietal and cerebellar CVA likely ALFIE/[employer] distribution Evaluated by Dr. Jeffries/neurology. Currently in Xanax 0.25 mg every 6 hours. Anxiety CV: Coronary disease CABG ASCVD Carotid stenosis TAAA Hypertension dyslipidemia History atrial fibrillation status post ablation 2011 Followed by cardiology. Currently on labetalol 100 mg 3 times a day Currently off atorvastatin 40 mg daily/home medication Currently not on aspirin Echocardiogram revealed EF 70%. OHS septal motion./Paradoxical, CARA 50-60 mmHg Resp: Acute hypoxemic respiratory failure Currently a nonrebreather mask saturations 97% when awake. Chest x-ray 09/21 reveals stable consolidation right upper, middle and lower lobes. Bronchodilator therapy every 6 hours and as indicated Follow chest x-ray in a.m. At high risk for respiratory intubation Routine CT thorax today. PRVC vent mode initiated. GI: Advance diet as tolerated On Pepcid 10 g by mouth daily /renal: History of hydroureter Renal ultrasound Revealed no hydronephrosis Currently on sodium bicarbonate 650 every 8 On furosemide 40 mg IV twice a day Creatinine elevated. GFR 15 range. Endo: Sliding scale insulin if indicated Renal: Acute on chronic kidney injury Currently on furosemide 40 mg IV twice a day Noted elevated lambda and kappa Chains/ESR likely secondary underlying acute kidney injury. Evaluated by Dr. Mccollum/hematology Heme: History of colon cancer status post partial colectomy History of bladder cancer Leukocytosis normocytic anemia Monitor CBC daily. Follow trends. ID: Possible hospital-acquired pneumonia Currently on vancomycin, Zosyn and aztreonam. Blood cultures 2 09/08 no growth FEN: Hyponatremia Elevated phosphorus Monitor BMP, magnesium phosphorus daily. Recheck in AM. MSK: PT evaluate and treat Prophylaxis - GI -famotidine - DVT - SCD/Eliquis Access - Right subclavian CVL placed 09/16 Overall impression: Worrisome interstitial process with dense consolidation and some skip areas. Not obviously overloaded, suspect inflammatory process. Deteriorating lung function requires mechanical ventilation again. Critically ill and worse clinical status. Discussed in detail again with his . I appreciate the input of Dr. Encinas. Critical care 38 mins aside from procedures Lionel Cormier MD Sep 23, 2016 07:54
[2016-09-23] MEDS: ALPRAZolam 0.25 MG TAB PO PRN (08:09)
[2016-09-23] MEDS: AZTREONAM INJ 1,000 MG in SODIUM CHLORIDE 0.9% INJ 100 ML IV SCH ×3 (08:26→23:27)
[2016-09-23] MEDS: BENEPROTEIN POWDER 1 PACK G-TUBE SCH ×3 (08:26→18:00)
[2016-09-23] MEDS: DOCUSATE SODIUM 50 MG/SENNA 8.6 MG TAB PO SCH ×2 (08:26→21:05)
[2016-09-23] MEDS: APIXABAN 5 MG TABLET PO SCH ×2 (08:26→21:05)
[2016-09-23] MEDS: LABETALOL HCL 100 MG TAB PO SCH ×3 (08:26→18:00)
[2016-09-23] MEDS: FAMOTIDINE 20 MG TAB PO SCH (08:26)
[2016-09-23] MEDS: CALCIUM ACETATE 667 MG CAP PO SCH ×3 (08:26→18:00)
--- NOTE | 2016-09-23 08:50 | RADRPT ---
EXAM DATE/TIME: 09/23/2016 08:16 [place] COMPARISON: CHEST SINGLE AP, September 22, 2016, 10:01. INDICATIONS : Evaluate pneumonia and hypoxia. MEDICAL HISTORY : None. SURGICAL HISTORY : None. ENCOUNTER: Subsequent ACUITY: 2 weeks PAIN SCORE: Non-responsive. LOCATION: Chest FINDINGS: An endotracheal tube has its tip 3 cm above the thor. A nasogastric tube has its tip below the talya phragm. A right subclavian central line has its tip in the superior vena cava near the junction with the right atrium. There is no pneumothorax. Median sternotomy wires are noted status-post cardiac surgery. Bilateral pulmonary infiltrates are stable. The heart is stable. CONCLUSION: 1. Multiple tubes and lines are in good positions. 2. Bilateral pulmonary infiltrates are unchanged compared to the previous examination. Jeffrey Mohan MD on September 23, 2016 at 8:42 Board Certified Radiologist. This report was verified electronically.
--- NOTE | 2016-09-23 10:52 | HHI.IDPN ---
Note Infectious Disease Note Patient on the vent. Sedated. Thick simpson secretions via ETT. Afib. PAST MEDICAL HISTORY 1. Coronary artery disease. 2. History of atrial fibrillation. 3. History of aortic aneurysm. 4. Bladder cancer treated with cystectomy. 5. Coronary artery bypass graft surgery. 6. Colon cancer history. 7. Peripheral vascular disease. 8. Hypertension. 9. History of transurethral resection of bladder tumor. 10.History of abdominal aortic aneurysm repair. ALLERGIES 1. SIMVASTATIN. 2. PRAVASTATIN. 3. ATORVASTATIN. ANTIBIOTICS 1. Piperacillin/tazobactam. 2. Aztreonam. 3. Vancomycin dose was given today. OBJECTIVE: Vital Signs Date Time Temp Pulse Resp B/P Pulse Ox O2 Delivery O2 Flow Rate FiO2 09/23/16 10:00 104 09/23/16 08:00 120 09/23/16 08:00 40 09/23/16 08:00 98.3 120 26 132/87 94 09/23/16 07:42 98 40 09/23/16 07:00 92 Mechanical Ventilator 40 09/23/16 06:00 100 09/23/16 04:27 97 40 09/23/16 04:00 96 09/23/16 04:00 40 09/23/16 04:00 97.7 96 20 145/75 97 09/23/16 02:00 92 09/23/16 00:57 97 40 09/23/16 00:00 96 09/23/16 00:00 40 09/23/16 00:00 98.3 96 22 153/73 97 09/22/16 22:00 92 09/22/16 20:00 97.9 88 19 137/71 98 09/22/16 20:00 88 09/22/16 20:00 40 09/22/16 19:33 97 40 09/22/16 19:00 96 Mechanical Ventilator 40 09/22/16 18:30 40 09/22/16 18:00 87 09/22/16 16:45 98 50 09/22/16 16:00 50 09/22/16 16:00 98.5 90 19 135/67 100 09/22/16 16:00 90 09/22/16 14:00 85 09/22/16 12:00 90 09/22/16 12:00 50 09/22/16 12:00 98.9 90 24 108/62 95 09/22/16 09/22/16 09/23/16 14:59 22:59 06:59 Intake Total 407 ml 359 ml 927 ml Output Total 775 ml 775 ml 725 ml Balance -368 ml -416 ml 202 ml IV Total 407 ml 46 ml 597 ml Tube Feeding 253 ml 270 ml Other 60 ml 60 ml Output Urine Total 775 ml 775 ml 725 ml # Bowel Movements 0 0 0 Laboratory Tests Test 09/22/16 09/23/16 06:25 03:30 White Blood Count 13.4 TH/MM3 11.7 TH/MM3 Red Blood Count 2.81 MIL/MM3 2.86 MIL/MM3 Hemoglobin 8.7 GM/DL 8.7 GM/DL Hematocrit 26.0 % 26.5 % Mean Corpuscular Volume 92.7 FL 92.7 FL Mean Corpuscular Hemoglobin 31.1 PG 30.6 PG Mean Corpuscular Hemoglobin 33.6 % 33.0 % Concent Red Cell Distribution Width 14.4 % 14.7 % Platelet Count 331 TH/MM3 358 TH/MM3 Mean Platelet Volume 8.2 FL 8.2 FL Neutrophils (%) (Auto) 81.6 % 73.9 % Lymphocytes (%) (Auto) 7.9 % 11.0 % Monocytes (%) (Auto) 5.4 % 6.4 % Eosinophils (%) (Auto) 4.9 % 7.8 % Basophils (%) (Auto) 0.2 % 0.9 % Neutrophils # (Auto) 10.9 TH/MM3 8.6 TH/MM3 Lymphocytes # (Auto) 1.1 TH/MM3 1.3 TH/MM3 Monocytes # (Auto) 0.7 TH/MM3 0.7 TH/MM3 Eosinophils # (Auto) 0.7 TH/MM3 0.9 TH/MM3 Basophils # (Auto) 0.0 TH/MM3 0.1 TH/MM3 CBC Comment DIFF FINAL DIFF FINAL Differential Comment Laboratory Tests Test 09/22/16 09/23/16 06:25 03:30 Sodium Level 136 MEQ/L 140 MEQ/L Potassium Level 4.0 MEQ/L 4.0 MEQ/L Chloride Level 97 MEQ/L 98 MEQ/L Carbon Dioxide Level 28.0 MEQ/L 31.3 MEQ/L Anion Gap 11 MEQ/L 11 MEQ/L Blood Urea Nitrogen 92 MG/DL 97 MG/DL Creatinine 3.80 MG/DL 3.63 MG/DL Estimat Glomerular Filtration 16 ML/MIN 16 ML/MIN Rate Random Glucose 105 MG/DL 141 MG/DL Calcium Level 8.8 MG/DL 9.0 MG/DL Phosphorus Level 5.3 MG/DL Magnesium Level 2.4 MG/DL Total Bilirubin 0.9 MG/DL Aspartate Amino Transf 27 U/L (AST/SGOT) Alanine Aminotransferase 34 U/L (ALT/SGPT) Alkaline Phosphatase 91 U/L Total Creatine Kinase 17 U/L Total Protein 7.0 GM/DL Albumin 2.0 GM/DL Microbiology Date/Time Procedure Status Source Growth 09/22/16 10:00 Gram Stain - Final Resulted Sputum Endotracheal 09/22/16 10:00 Sputum Culture Resulted Sputum Endotracheal Pending Last Impressions Chest X-Ray 09/23/16 0000 Signed Impressions: Service Date/Time: September 08:16 - CONCLUSION: 1. Multiple tubes and lines are in good positions. 2. Bilateral pulmonary infiltrates are unchanged compared to the previous examination. Jeffrey Mohan MD Chest CT 09/21/16 0000 Signed Impressions: Service Date/Time: Wednesday, September 21, 2016 22:34 - CONCLUSION: 1. Diffuse airspace opacities with ground glass appearance throughout both lungs. 2. Moderate-sized bilateral pleural effusions. 3. Ectatic and dilated descending thoracic aorta, measuring up to 5.[address] Martinez MD Head Magnetic Resonance Angiography 09/10/16 1028 Signed Impressions: Service Date/Time: Saturday, September 10, 2016 10:57 - CONCLUSION: 1. Unremarkable MRA examination without evidence for large vessel occlusion, aneurysm, or vascular malformation. Richardson Haney MD Brain MRI 09/10/16 1028 Signed Impressions: Service Date/Time: Saturday, September 10, 2016 10:57 - CONCLUSION: 1. Findings most consistent with new embolic infarcts involving both the anterior and posterior circulation. Richardson Haney MD Carotid Artery Ultrasound 09/09/16 1028 Signed Impressions: Service Date/Time: September 10:43 - CONCLUSION: 1. Moderate visible plaque without hemodynamically significant stenosis identified. No significant change from August 25. Amado Crain MD Renal Ultrasound 09/09/16 0000 Signed Impressions: Service Date/Time: September 15:41 - CONCLUSION: 1. Cortical atrophy with small bilateral renal cysts. No hydronephrosis. Amado Crain MD Head CT 09/08/16 2251 Signed Impressions: Service Date/Time: Thursday, September 08, 2016 23:41 - CONCLUSION: Stable noncontrast CT with no evidence of hemorrhage or acute infarction. Atrophy and chronic small vessel splenic changes remain. Sanya Cavazos MD PHYSICAL EXAMINATION GENERAL: No acute distress. HEENT: Sclera is non-icteric. Oropharynx mucosa appears moist. NECK: No swelling or adenopathy. LUNGS: Bilateral rhonchi. HEART: Regular, S1 and S2. No audible murmur, rub or gallop. ABDOMEN: Bowel sounds present. Soft. No tenderness appreciated. EXTREMITIES: No clubbing, no cyanosis. no edema. SKIN: No diffuse rash. NEUROLOGIC: Unable to assess. PSYCH: Unable to assess. IMPRESSION 1. Acute respiratory failure. 2. Bilateral lung infiltrates, probable pneumonia. 3. Mild leukocytosis. 4. Probable CHF component to the bilateral pulmonary infiltrates. RECOMMENDATIONS 1. Continue piperacillin/tazobactam. 2. Continue aztreonam. 3. Monitor sputum culture. 4. Follow clinical status. Sae Nova MD Sep 23, 2016 10:52
--- NOTE | 2016-09-23 11:51 | PD.CARD.PN ---
Subjective Subjective Remarks The patient developed recurrent atrial fibrillation overnight. HR 90-110. BP stable. Objective Medications Current Medications Medications (Trade) Dose Ordered Sig/Awilda Route Start Time Stop Time Status Last Admin (NS Flush) 2 ml UNSCH PRN IV FLUSH 09/09/16 00:45 (NS Flush) 2 ml BID IV FLUSH 09/09/16 09:00 09/23/16 07:45 (Narcan Inj) 0.4 mg UNSCH PRN IV 09/09/16 00:45 (Xanax) 0.25 mg Q6H PRN PO 09/09/16 13:45 09/23/16 08:09 (Pill Splitter) 1 ea UNSCH PRN OTHER 09/09/16 14:00 (Eliquis) 5 mg BID PO 09/10/16 09:00 09/23/16 08:26 (Catapres) 0.1 mg Q6H PRN PO 09/11/16 14:30 09/19/16 23:02 (Sodium Bicarbonate) 650 mg Q8HR PO 09/15/16 22:00 09/23/16 05:10 (Lopressor Inj) 5 mg Q2HR PRN IV PUSH 09/16/16 14:00 09/23/16 06:45 (Apresoline Inj) 10 mg Q6HR PRN IV PUSH 09/16/16 12:45 09/20/16 02:14 (Peridex 0.12% Liq) 15 ml BID@08,20 MT 09/16/16 20:00 09/23/16 08:26 (Anne-Colace) 1 tab BID PO 09/19/16 21:00 09/23/16 08:26 (Milk Of Magnesia Liq) 30 ml Q12H PRN PO 09/19/16 13:30 09/19/16 13:30 (Senokot) 17.2 mg Q12H PRN PO 09/19/16 13:30 (Dulcolax Supp) 10 mg DAILY PRN RECTAL 09/19/16 13:30 (Lactulose Liq) 30 ml DAILY PRN PO 09/19/16 13:30 Labetalol HCl 100 mg 100 mg TID PO 09/20/16 13:00 09/23/16 08:26 Aztreonam 1000 mg/ Sodium Chloride 100 ml @ 200 mls/hr Q8H IV 09/20/16 16:00 09/23/16 08:26 (Vancomycin Consult Pharmacy) 0 ml @ 0 mls/hr UNSCH OTHER 09/20/16 14:45 (Pepcid) 10 mg DAILY PO 09/21/16 09:00 09/23/16 08:26 (Lasix Inj) 40 mg DAILY IV PUSH 09/22/16 09:00 Hold 09/22/16 09:00 Calcium Acetate 667 mg 667 mg TID PO 09/21/16 18:00 09/23/16 08:26 (Zosyn 2.25 Gm Premix) 50 ml @ 100 mls/hr Q8H IV 09/21/16 18:00 09/23/16 08:25 Chlorhexidine Gluconate 15 ml 15 ml BID@08,20 MT 09/22/16 20:00 (Diprivan 1000 Mg/100ml Inj) 100 ml @ 0 mls/hr TITRATE IV 09/22/16 10:00 09/23/16 04:14 (Beneprotein Powder) 1 pack TID G-TUBE 09/22/16 13:00 Vital Signs / I&O Vital Signs Date Time Temp Pulse Resp B/P Pulse Ox O2 Delivery O2 Flow Rate FiO2 09/23/16 11:38 98 40 09/23/16 10:00 104 09/23/16 08:00 120 09/23/16 08:00 40 09/23/16 08:00 98.3 120 26 132/87 94 09/23/16 07:42 98 40 09/23/16 07:00 92 Mechanical Ventilator 40 09/23/16 06:00 100 09/23/16 04:27 97 40 09/23/16 04:00 96 09/23/16 04:00 40 09/23/16 04:00 97.7 96 20 145/75 97 09/23/16 02:00 92 09/23/16 00:57 97 40 09/23/16 00:00 96 09/23/16 00:00 40 09/23/16 00:00 98.3 96 22 153/73 97 09/22/16 22:00 92 09/22/16 20:00 97.9 88 19 137/71 98 09/22/16 20:00 88 09/22/16 20:00 40 09/22/16 19:33 97 40 09/22/16 19:00 96 Mechanical Ventilator 40 09/22/16 18:30 40 09/22/16 18:00 87 09/22/16 16:45 98 50 09/22/16 16:00 50 09/22/16 16:00 98.5 90 19 135/67 100 09/22/16 16:00 90 09/22/16 14:00 85 09/22/16 12:00 90 09/22/16 12:00 50 09/22/16 12:00 98.9 90 24 108/62 95 I/O 09/22/16 09/22/16 09/22/16 09/23/16 09/23/16 09/23/16 06:59 14:59 22:59 06:59 14:59 22:59 Intake Total 160 ml 407 ml 359 ml 927 ml Output Total 775 ml 775 ml 775 ml 725 ml Balance -615 ml -368 ml -416 ml 202 ml IV Total 160 ml 407 ml 46 ml 597 ml Tube Feeding 253 ml 270 ml Other 60 ml 60 ml Output Urine Total 775 ml 775 ml 775 ml 725 ml # Bowel Movements 0 0 0 0 Physical Exam GENERAL: Elderly male, intubated and sedated SKIN: Warm and dry. HEAD: Normocephalic. EYES: No scleral icterus. No injection or drainage. NECK: Supple, trachea midline CARDIOVASCULAR: Midline incision healing well,IRREG IRREG RESPIRATORY: Bilateral rales, intubated GASTROINTESTINAL: Abdomen soft, non-tender, nondistended. MUSCULOSKELETAL: No cyanosis, no BLE edema BACK: Nontender without obvious deformity. Laboratory Laboratory Tests Test 09/23/16 03:30 White Blood Count 11.7 TH/MM3 Red Blood Count 2.86 MIL/MM3 Hemoglobin 8.7 GM/DL Hematocrit 26.5 % Mean Corpuscular Volume 92.7 FL Mean Corpuscular Hemoglobin 30.6 PG Mean Corpuscular Hemoglobin 33.0 % Concent Red Cell Distribution Width 14.7 % Platelet Count 358 TH/MM3 Mean Platelet Volume 8.2 FL Neutrophils (%) (Auto) 73.9 % Lymphocytes (%) (Auto) 11.0 % Monocytes (%) (Auto) 6.4 % Eosinophils (%) (Auto) 7.8 % Basophils (%) (Auto) 0.9 % Neutrophils # (Auto) 8.6 TH/MM3 Lymphocytes # (Auto) 1.3 TH/MM3 Monocytes # (Auto) 0.7 TH/MM3 Eosinophils # (Auto) 0.9 TH/MM3 Basophils # (Auto) 0.1 TH/MM3 CBC Comment DIFF FINAL Differential Comment Sodium Level 140 MEQ/L Potassium Level 4.0 MEQ/L Chloride Level 98 MEQ/L Carbon Dioxide Level 31.3 MEQ/L Anion Gap 11 MEQ/L Blood Urea Nitrogen 97 MG/DL Creatinine 3.63 MG/DL Estimat Glomerular Filtration 16 ML/MIN Rate Random Glucose 141 MG/DL Calcium Level 9.0 MG/DL Imaging Last 72 hours Impressions Chest X-Ray 09/23/16 0000 Signed Impressions: Service Date/Time: September 08:16 - CONCLUSION: 1. Multiple tubes and lines are in good positions. 2. Bilateral pulmonary infiltrates are unchanged compared to the previous examination. Jeffrey Mohan MD Chest X-Ray 09/22/16 0000 Signed Impressions: Service Date/Time: Thursday, September 22, 2016 10:01 - CONCLUSION: 1. Interval intubation. 2. Interval placement of nasogastric tube with the tip at the level gastroesophageal junction and the side-port at the level of distal esophagus. This could be advanced at least 8 cm into the stomach. 3. Interval improvement in bilateral pulmonary infiltrates with mild residual. Sanya Cavazos MD Chest X-Ray 09/21/16 0600 Signed Impressions: Service Date/Time: Wednesday, September 21, 2016 04:27 - CONCLUSION: Severe diffuse bilateral airspace opacities, stable from prior. Lane Martinez MD Chest CT 09/21/16 0000 Signed Impressions: Service Date/Time: Wednesday, September 21, 2016 22:34 - CONCLUSION: 1. Diffuse airspace opacities with ground glass appearance throughout both lungs. 2. Moderate-sized bilateral pleural effusions. 3. Ectatic and dilated descending thoracic aorta, measuring up to 5.[address] Martinez MD Assessment and Plan Assessment and Plan Status post recurrent acute hypoxic respiratory failure requiring ventilator support. Now with VAP/HCAP. Chest pain, troponin elevated likely due to CKD and had recent NSTEMI. Atrial fibrillation with CVA and TIAs. Patient was on subtherapeutic Eliquis prior to admission. Now on Eliquis 5 mg BID. Now with recurrent atrial fibrillation. ASHD s/p CABG 08/2016 Thoracic and abdominal aortic aneurysms HTN HLD- intolerant of statin therapy Carotid stenosis Acute on chronic renal failure PLAN: Continue abx and diuretics. Recurrent atrial fibrillation with controlled ventricular response. We will next attempt aggressive cardioversion. The patient has a recent history of recurrent TIA. Therapeutic Eliquis started on this admission. Continue Eliquis and BB. Intolerant of metoprolol due to hallucinations. Will hold off resuming ASA for now . He has been intolerant of multiple statins in the past. Will consider resuming therapy once the patient stabilizes. SBP goal < 130 DBP goal < 90. Continue Labetalol with hold parameters The patient was seen and evaluated by Dr. Moran who completed a [id number] encounter, completed a physical exam and participated in evaluation and management. Elin Kwok Sep 23, 2016 11:51
--- NOTE | 2016-09-23 14:38 | HHI.NPPN ---
Subjective History of Present Illness The patient is a 75 yo [place] male who presented to this facility 09/08 with complaints of R hand weakness. He was here at this facility just 10 days ago for 4-vessel CABG, discharged on 08/29. While undergoing CABG, he suffered a stroke and came in today as he was concerned he was having another. Was having no other neurological issues. We were consulted for acute renal failure. Presenting SCr of 3.65 that has worsened significantly from discharge on 08/29 at 1.53. Appears baseline renal function 1.2-1.6 according to previous records. States he has been at his usual state of health since his hospital discharge besides R hand weakness that resolved on its own while here in the ED. Denies any NVD. No NSAIDs. Denies any urinary issues. Review of previous imaging (namely CTA on 08/24) showed a L sided hydronephrosis extending to UVJ. THe patient was unaware of this. He has hx of bladder CA that was treated by surgical resection at [facility] about 1 year ago. Scheduled for f/u there in 1 month. CTA also revealed abdominal aneurysm that vascular surgery was consulted about and was supposed to have f/u as outpatient. Interval History Patient remains intubated. Review of Systems General General Remarks Unable to obtain 03/11 to clinical condition Objective Data Data 09/22/16 09/23/16 18:59 06:59 Intake Total 407 ml 1286 ml Output Total 775 ml 1500 ml Balance -368 ml -214 ml IV Total 407 ml 643 ml Tube Feeding 523 ml Other 120 ml Output Urine Total 775 ml 1500 ml # Bowel Movements 0 0 Vital Signs Date Time Temp Pulse Resp B/P Pulse Ox O2 Delivery O2 Flow Rate FiO2 09/23/16 12:00 120 09/23/16 12:00 40 09/23/16 12:00 98.6 120 19 117/64 97 09/23/16 11:38 98 40 09/23/16 10:00 104 09/23/16 08:00 120 09/23/16 08:00 40 09/23/16 08:00 98.3 120 26 132/87 94 09/23/16 07:42 98 40 09/23/16 07:00 92 Mechanical Ventilator 40 09/23/16 06:00 100 09/23/16 04:27 97 40 09/23/16 04:00 96 09/23/16 04:00 40 09/23/16 04:00 97.7 96 20 145/75 97 09/23/16 02:00 92 09/23/16 00:57 97 40 09/23/16 00:00 96 09/23/16 00:00 40 09/23/16 00:00 98.3 96 22 153/73 97 09/22/16 22:00 92 09/22/16 20:00 97.9 88 19 137/71 98 09/22/16 20:00 88 09/22/16 20:00 40 09/22/16 19:33 97 40 09/22/16 19:00 96 Mechanical Ventilator 40 09/22/16 18:30 40 09/22/16 18:00 87 09/22/16 16:45 98 50 09/22/16 16:00 50 09/22/16 16:00 98.5 90 19 135/67 100 09/22/16 16:00 90 -: 09/23/16 0330 09/23/16 0330 Physical Exam General Appearance: No Acute Distress Eyes Eye Exam: Sclera White Pulmonary Resp Exam: Clear Bilaterally, Breath Sounds Equal, No Distress Cardiology CV Exam: Normal Sinus Rhythm, Irregular Gastrointestinal/Abdomen GI Exam: Soft, Non-Tender Integumentary Skin Exam: Clear, Warm Skin Remarks Skin turgor diminished. Extremeties Extremities Exam: No Edema Neurologic Neuro Exam: Sedated Assessment/Plan Discussed Condition With: Patient, Spouse Problem List: (1) Acute kidney failure Plan: Creatinine level is slightly better today with fairly good urine output. Volume status appears to be acceptable with no evidence of fluid overload. Continue to hold diuretics for the present. Antiglomerular basement membrane antibodies still pending however urinalysis is bland without evidence of microscopic hematuria glomerulonephritis is not a primary consideration presently. Differential diagnosis at this point as far as acute renal insufficiency is concerned would be atheroembolic disease occurring during previous admission with subsequent decline in renal function and a lesser consideration towards interstitial nephritis possibly related to Protonix. Although her creatinine level is slightly better today GFR remains in the low teens. I discussed possibility of adding steroids which may hasten improvement of interstitial nephritis if present and infectious disease as well as critical care indicated no contraindication presently. Renal biopsy is not a consideration at this time because of patient's instability. Will initiate therapy with equivalent of prednisone about 40 mg a day i.e. as methylprednisolone 35 mg daily. Medications should be adjusted for the patient's renal decline. Avoid nephrotoxic medications including NSAIDs and iodinated contrast dyes. Gadolinium should be avoided as eGFR 30. (2) CKD (chronic kidney disease) stage 3, GFR 30-59 ml/min (3) TIA (transient ischemic attack) (4) Hypertension (5) CAD (coronary artery disease) (6) Congestive heart failure Plan: Compensated currently. (7) Anemia Plan: Of acute illness. Problem Qualifiers (1) TIA (transient ischemic attack): Qualified Code: G45.9 - Transient cerebral ischemia, unspecified type Liv Cerda MD Sep 23, 2016 14:38
[2016-09-23] MEDS: methylPREDNISolone SOD SUCC 40 MG/1 ML VIAL IV SCH (15:44)
[2016-09-23] MEDS ORDERED: AMIODARONE 150 MG/D5W 97 ML BOLUS 10 MINUTES IV ONE ×2 (18:15)
[2016-09-23] MEDS ORDERED: AMIODARONE INJ 450 MG in D5W (EXCEL BAG) 241 ML IV SCH (18:30)
--- NOTE | 2016-09-23 20:03 | HHI.PR ---
Subjective Remarks Sedated and on vent support. Now on FIO2 40 %. On IV Vanco,Zosyn. Did not tolerate CPAP today CXR shows bilateral infiltrates Objective Vital Signs Date Time Temp Pulse Resp B/P Pulse Ox O2 Delivery O2 Flow Rate FiO2 09/23/16 18:00 71 09/23/16 16:00 40 09/23/16 16:00 98.7 83 17 108/70 97 09/23/16 16:00 120 09/23/16 15:06 98 40 09/23/16 14:00 90 09/23/16 12:00 120 09/23/16 12:00 40 09/23/16 12:00 98.6 120 19 117/64 97 09/23/16 11:38 98 40 09/23/16 10:00 104 09/23/16 08:00 120 09/23/16 08:00 40 09/23/16 08:00 98.3 120 26 132/87 94 09/23/16 07:42 98 40 09/23/16 07:00 92 Mechanical Ventilator 40 09/23/16 06:00 100 09/23/16 04:27 97 40 09/23/16 04:00 96 09/23/16 04:00 40 09/23/16 04:00 97.7 96 20 145/75 97 09/23/16 02:00 92 09/23/16 00:57 97 40 09/23/16 00:00 96 09/23/16 00:00 40 09/23/16 00:00 98.3 96 22 153/73 97 09/22/16 22:00 92 09/22/16 20:00 97.9 88 19 137/71 98 09/22/16 20:00 88 09/22/16 20:00 40 I/O 09/22/16 09/22/16 09/22/16 09/23/16 09/23/16 09/23/16 07:00 15:00 23:00 07:00 15:00 23:00 Intake Total 160 ml 407 ml 359 ml 927 ml 655 ml Output Total 775 ml 775 ml 775 ml 725 ml 550 ml Balance -615 ml -368 ml -416 ml 202 ml 105 ml IV Total 160 ml 407 ml 46 ml 597 ml 248 ml Tube Feeding 253 ml 270 ml 287 ml Other 60 ml 60 ml 120 ml Output Urine Total 775 ml 775 ml 775 ml 725 ml 550 ml # Bowel Movements 0 0 0 0 0 Result Diagram: 09/23/1632909/23/16329 Objective Remarks GENERAL: This moderately overweight elderly man is sedated and intubated. HEENT: Head is normocephalic. Pupils are reactive. Tongue is dry. Throat has a few secretions. NECK: Supple with no venous distention. Trachea is midline. No thyroid enlargement. CHEST: Equal movements with diminished breath sounds at the bases with a few bibasilar crackles. HEART: Sounds are irregular S1-S2. No murmur. ABDOMEN: Soft. Protuberant without masses. No organomegaly. EXTREMITIES: Decreased pulses. The patient has some weakness of the right side. Babinski negative. SKIN: Dry and cool. Assessment and Plan Assessment and Plan IMPRESSION 1. Acute respiratory failure. 2. Fluid overload status with pulmonary edema. 3. Acute kidney failure. 4. History of cerebrovascular accident. 5. Bibasilar atelectasis with possible pneumonia. 6. History of colon cancer and bladder cancer. Plan : 1. Wean Fio2 to keep sat >92. 2. CPAP trial in am. 3. Nebsqid ,Markoneb. 4. Continue IV solumedrol 40 mg daily. 5. Antibiotics per ID 6. Chest X ray in am. Jaime Encinas MD Sep 23, 2016 20:03
[2016-09-24] VITALS (17 sets, daily range): BP systolic 115–154; BP diastolic 59–112; PULSE 76–135; RESP 14–24; TEMP 97.9–98.4; O2SAT 93–99
[2016-09-24] MEDS: PIPERACIL-TAZO 2.25 GM PREMIX 50 ML IV SCH ×3 (01:45→18:19)
[2016-09-24] MEDS: SODIUM BICARBONATE 650 MG TAB PO SCH ×3 (04:52→20:39)
[2016-09-24 05:35] LABS: AUTOMATED NEUTROPHIL # 9.1 TH/MM3 (1.8-7.7); BASOPHIL # 0.1 TH/MM3 (0-0.2); BASOPHIL % 0.7 % (0.0-2.0); EOSINOPHIL % 0.3 % (0.0-4.0); HEMATOCRIT 27.9 % (39.0-51.0); HEMO FLAGS DIFF FINAL; LYMPH % 10.4 % (9.0-44.0); LYMPHOCYTE # 1.1 TH/MM3 (1.0-4.8); MEAN CELL VOLUME 94.7 FL (80.0-100.0); MEAN CORPUSCULAR HEMOGLOBIN 30.7 PG (27.0-34.0); MEAN CORPUSCULAR HGB CONC 32.4 % (32.0-36.0); MONO % 5.9 % (0.0-8.0); NEUT % 82.7 % (16.0-70.0); PLATELET COUNT 404 TH/MM3 (150-450); RED BLOOD COUNT 2.94 MIL/MM3 (4.50-5.90); RED CELL DISTRIBUTION WIDTH 14.4 % (11.6-17.2)
[2016-09-24] MEDS: PROPOFOL 1000 MG/100 ML INJ 100 ML IV SCH (05:55)
[2016-09-24 05:56] LABS: BICARBONATE 30.7 MEQ/L (21.0-32.0); POTASSIUM 4.6 MEQ/L (3.5-5.1)
[2016-09-24] MEDS: RESP: ALBUTEROL 2.5 MG/IPRATROPIUM 0.5 MG NEB (SCH) NEB ×4 (07:46→19:22)
[2016-09-24] MEDS: CHLORHEXIDINE 0.12% (ORAL KIT) 15 ML CUP MT SCH ×4 (08:00→19:29)
[2016-09-24] MEDS: hydrALAZINE HCL 20 MG/ML VIAL IV PUSH PRN (08:07)
[2016-09-24] MEDS: SODIUM CHLORIDE 0.9% FLUSH 10 ML FLUSH IV FLUSH SCH ×2 (08:07→20:40)
[2016-09-24] MEDS: AZTREONAM INJ 1,000 MG in SODIUM CHLORIDE 0.9% INJ 100 ML IV SCH (08:38)
[2016-09-24] MEDS: methylPREDNISolone SOD SUCC 40 MG/1 ML VIAL IV SCH (08:38)
[2016-09-24] MEDS: LABETALOL HCL 100 MG TAB PO SCH ×3 (08:38→18:19)
[2016-09-24] MEDS: CALCIUM ACETATE 667 MG CAP PO SCH ×3 (08:39→18:19)
[2016-09-24] MEDS: APIXABAN 5 MG TABLET PO SCH ×2 (08:39→20:40)
[2016-09-24] MEDS: FAMOTIDINE 20 MG TAB PO SCH (08:39)
[2016-09-24] MEDS: DOCUSATE SODIUM 50 MG/SENNA 8.6 MG TAB PO SCH ×2 (08:39→20:39)
[2016-09-24] MEDS: BENEPROTEIN POWDER 1 PACK G-TUBE SCH ×2 (09:00→13:00)
[2016-09-24] MEDS: METOPROLOL TARTRATE 5 MG/5 ML VIAL IV PUSH PRN (09:02)
--- NOTE | 2016-09-24 12:19 | HHI.NPPN ---
Subjective History of Present Illness The patient is a 75 yo [place] male who presented to this facility 09/08 with complaints of R hand weakness. He was here at this facility just 10 days ago for 4-vessel CABG, discharged on 08/29. While undergoing CABG, he suffered a stroke and came in today as he was concerned he was having another. Was having no other neurological issues. We were consulted for acute renal failure. Presenting SCr of 3.65 that has worsened significantly from discharge on 08/29 at 1.53. Appears baseline renal function 1.2-1.6 according to previous records. States he has been at his usual state of health since his hospital discharge besides R hand weakness that resolved on its own while here in the ED. Denies any NVD. No NSAIDs. Denies any urinary issues. Review of previous imaging (namely CTA on 08/24) showed a L sided hydronephrosis extending to UVJ. THe patient was unaware of this. He has hx of bladder CA that was treated by surgical resection at [facility] about 1 year ago. Scheduled for f/u there in 1 month. CTA also revealed abdominal aneurysm that vascular surgery was consulted about and was supposed to have f/u as outpatient. Interval History Pt extubated this AM present in room. (Radha Hagen) Review of Systems General General Remarks No current complaints. (Radha Hagen) Objective Data Data 09/23/16 09/24/16 18:59 06:59 Intake Total 655 ml 1434 ml Output Total 550 ml 1150 ml Balance 105 ml 284 ml IV Total 248 ml 744 ml Tube Feeding 287 ml 490 ml Other 120 ml 200 ml Output Urine Total 550 ml 1150 ml # Bowel Movements 0 0 Vital Signs Date Time Temp Pulse Resp B/P Pulse Ox O2 Delivery O2 Flow Rate FiO2 09/24/16 11:04 95 Nasal Cannula 5.00 09/24/16 11:04 95 Nasal Cannula 5 09/24/16 10:30 35 09/24/16 10:00 98 09/24/16 09:30 35 09/24/16 09:29 Nasal Cannula 35 09/24/16 09:00 100 138/89 09/24/16 08:30 135 154/72 09/24/16 08:00 98.4 101 14 118/112 99 09/24/16 08:00 101 09/24/16 08:00 35 09/24/16 07:46 97 35 09/24/16 07:00 96 Mechanical Ventilator 15.00 35 09/24/16 04:04 96 35 09/24/16 04:00 40 09/24/16 04:00 98.4 102 21 154/72 97 09/24/16 00:39 95 35 09/24/16 00:00 40 09/24/16 00:00 98.2 78 19 119/64 96 09/23/16 20:00 99.0 95 16 133/78 99 09/23/16 20:00 40 09/23/16 19:51 97 40 09/23/16 19:30 Mechanical Ventilator 15.00 40 09/23/16 18:00 71 09/23/16 16:00 40 09/23/16 16:00 98.7 83 17 108/70 97 09/23/16 16:00 120 09/23/16 15:06 98 40 09/23/16 14:00 90 (Radha Hagen) -: 09/24/16 0500 09/24/16 0500 Imaging Last Impressions Chest X-Ray 09/23/16 0000 Signed Impressions: Service Date/Time: September 08:16 - CONCLUSION: 1. Multiple tubes and lines are in good positions. 2. Bilateral pulmonary infiltrates are unchanged compared to the previous examination. Jeffrey Mohan MD Chest CT 09/21/16 0000 Signed Impressions: Service Date/Time: Wednesday, September 21, 2016 22:34 - CONCLUSION: 1. Diffuse airspace opacities with ground glass appearance throughout both lungs. 2. Moderate-sized bilateral pleural effusions. 3. Ectatic and dilated descending thoracic aorta, measuring up to 5.[address] Martinez MD Head Magnetic Resonance Angiography 09/10/16 1028 Signed Impressions: Service Date/Time: Saturday, September 10, 2016 10:57 - CONCLUSION: 1. Unremarkable MRA examination without evidence for large vessel occlusion, aneurysm, or vascular malformation. Richardson Haney MD Brain MRI 09/10/16 1028 Signed Impressions: Service Date/Time: Saturday, September 10, 2016 10:57 - CONCLUSION: 1. Findings most consistent with new embolic infarcts involving both the anterior and posterior circulation. Richardson Haney MD Carotid Artery Ultrasound 09/09/16 1028 Signed Impressions: Service Date/Time: September 10:43 - CONCLUSION: 1. Moderate visible plaque without hemodynamically significant stenosis identified. No significant change from August 25. Amado Crain MD Renal Ultrasound 09/09/16 0000 Signed Impressions: Service Date/Time: September 15:41 - CONCLUSION: 1. Cortical atrophy with small bilateral renal cysts. No hydronephrosis. Amado Crain MD Head CT 09/08/16 2251 Signed Impressions: Service Date/Time: Thursday, September 08, 2016 23:41 - CONCLUSION: Stable noncontrast CT with no evidence of hemorrhage or acute infarction. Atrophy and chronic small vessel splenic changes remain. Sanya Cavazos MD Medication Review Current Medications Medications (Trade) Dose Ordered Sig/Awilda Route Start Time Stop Time Status Last Admin (NS Flush) 2 ml UNSCH PRN IV FLUSH 09/09/16 00:45 (NS Flush) 2 ml BID IV FLUSH 09/09/16 09:00 09/24/16 08:07 (Narcan Inj) 0.4 mg UNSCH PRN IV 09/09/16 00:45 (Xanax) 0.25 mg Q6H PRN PO 09/09/16 13:45 09/23/16 08:09 (Pill Splitter) 1 ea UNSCH PRN OTHER 09/09/16 14:00 (Eliquis) 5 mg BID PO 09/10/16 09:00 09/24/16 08:39 (Catapres) 0.1 mg Q6H PRN PO 09/11/16 14:30 09/19/16 23:02 (Sodium Bicarbonate) 650 mg Q8HR PO 09/15/16 22:00 09/24/16 04:52 (Lopressor Inj) 5 mg Q2HR PRN IV PUSH 09/16/16 14:00 09/23/16 06:45 (Apresoline Inj) 10 mg Q6HR PRN IV PUSH 09/16/16 12:45 09/24/16 08:07 (Peridex 0.12% Liq) 15 ml BID@08,20 MT 09/16/16 20:00 09/24/16 08:38 (Anne-Colace) 1 tab BID PO 09/19/16 21:00 09/24/16 08:39 (Milk Of Magnesia Liq) 30 ml Q12H PRN PO 09/19/16 13:30 09/19/16 13:30 (Senokot) 17.2 mg Q12H PRN PO 09/19/16 13:30 (Dulcolax Supp) 10 mg DAILY PRN RECTAL 09/19/16 13:30 (Lactulose Liq) 30 ml DAILY PRN PO 09/19/16 13:30 Labetalol HCl 100 mg 100 mg TID PO 09/20/16 13:00 09/24/16 08:38 Aztreonam 1000 mg/ Sodium Chloride 100 ml @ 200 mls/hr Q8H IV 09/20/16 16:00 09/24/16 08:38 (Vancomycin Consult Pharmacy) 0 ml @ 0 mls/hr UNSCH OTHER 09/20/16 14:45 (Pepcid) 10 mg DAILY PO 09/21/16 09:00 09/24/16 08:39 (Lasix Inj) 40 mg DAILY IV PUSH 09/22/16 09:00 Hold 09/22/16 09:00 Calcium Acetate 667 mg 667 mg TID PO 09/21/16 18:00 09/24/16 08:39 (Zosyn 2.25 Gm Premix) 50 ml @ 100 mls/hr Q8H IV 09/21/16 18:00 09/24/16 08:38 Chlorhexidine Gluconate 15 ml 15 ml BID@08,20 MT 09/22/16 20:00 (Diprivan 1000 Mg/100ml Inj) 100 ml @ 0 mls/hr TITRATE IV 09/22/16 10:00 09/24/16 05:55 (Beneprotein Powder) 1 pack TID G-TUBE 09/22/16 13:00 Methylprednisolone Sodium Succinate 35 mg 35 mg DAILY IV 09/23/16 15:00 09/24/16 08:38 (Cordarone Inj/ D5W (Davidson) Inj) 250 ml @ 0 mls/hr CONTINUOUS IV 09/23/16 18:30 09/23/16 18:44 (Radha Hagen) Physical Exam General Appearance: No Acute Distress (Radha Hagen) Eyes Eye Exam: Sclera White (Radha Hagen) Pulmonary Resp Exam: Breath Sounds Equal, No Distress, Diminished Breath Sounds (Radha Hagen) Cardiology CV Exam: Normal Sinus Rhythm, Irregular (Radha Hagen) Gastrointestinal/Abdomen GI Exam: Soft, Non-Tender (Radha Hagen) Integumentary Skin Exam: Clear, Warm (Radha Hagen) Extremeties Extremities Exam: No Edema (Radha Hagen) Neurologic Neuro Exam: Alert, Awake (Radha Hagen) Assessment/Plan Discussed Condition With: Patient, Spouse Problem List: (1) Acute kidney failure Plan: SCr improved today and UOP decent. Volume status appears to be acceptable with no evidence of fluid overload. Continue to hold diuretics for the present. Antiglomerular basement membrane antibodies still pending however urinalysis is bland without evidence of microscopic hematuria glomerulonephritis is not a primary consideration presently. Differential diagnosis at this point as far as acute renal insufficiency is concerned would be atheroembolic disease occurring during previous admission with subsequent decline in renal function and a lesser consideration towards interstitial nephritis possibly related to Protonix. Although her creatinine level is slightly better today GFR remains in the low teens. I discussed possibility of adding steroids which may hasten improvement of interstitial nephritis if present and infectious disease as well as critical care indicated no contraindication presently. Renal biopsy is not a consideration at this time because of patient's instability. Will initiate therapy with equivalent of prednisone about 40 mg a day i.e. as methylprednisolone 35 mg daily. Medications should be adjusted for the patient's renal decline. Avoid nephrotoxic medications including NSAIDs and iodinated contrast dyes. Gadolinium should be avoided as eGFR 30. (2) CKD (chronic kidney disease) stage 3, GFR 30-59 ml/min (3) TIA (transient ischemic attack) (4) Hypertension (5) CAD (coronary artery disease) (6) Congestive heart failure Plan: Compensated currently. (7) Anemia Plan: Of acute illness. (Radha Hagen) Plan The exam, history, and the medical decision-making described in the above note were completed with the assistance of the [facility]. I reviewed and agree with the findings presented. (Liv Cerda MD) Problem Qualifiers (1) TIA (transient ischemic attack): Qualified Code: G45.9 - Transient cerebral ischemia, unspecified type Radha Hagen Sep 24, 2016 12:19 Liv Cerda MD Sep 25, 2016 18:32
[2016-09-24] MEDS ORDERED: AMIODARONE INJ 900 MG in D5W 500 ML (EXCEL BAG) 482 ML IV SCH (13:30)
--- NOTE | 2016-09-24 14:24 | HHI.IDPN ---
Note Infectious Disease Note Patient extubated and on O2 via nasal canula. Awake and alert. Conversing appropriately. Thick simpson secretions via ETT. Suctioning himself. Afib. Afebrile. PAST MEDICAL HISTORY 1. Coronary artery disease. 2. History of atrial fibrillation. 3. History of aortic aneurysm. 4. Bladder cancer treated with cystectomy. 5. Coronary artery bypass graft surgery. 6. Colon cancer history. 7. Peripheral vascular disease. 8. Hypertension. 9. History of transurethral resection of bladder tumor. 10.History of abdominal aortic aneurysm repair. ALLERGIES 1. SIMVASTATIN. 2. PRAVASTATIN. 3. ATORVASTATIN. ANTIBIOTICS 1. Piperacillin/tazobactam. 2. Aztreonam. 3. Vanco pharmacy dosing. OBJECTIVE: Vital Signs Date Time Temp Pulse Resp B/P Pulse Ox O2 Delivery O2 Flow Rate FiO2 09/24/16 14:00 83 09/24/16 12:00 82 09/24/16 12:00 98.4 82 24 118/59 94 09/24/16 11:04 95 Nasal Cannula 5.00 09/24/16 11:04 95 Nasal Cannula 5 09/24/16 10:30 35 09/24/16 10:00 98 09/24/16 09:30 35 09/24/16 09:29 Nasal Cannula 35 09/24/16 09:00 100 138/89 09/24/16 08:30 135 154/72 09/24/16 08:00 98.4 101 14 118/112 99 09/24/16 08:00 101 09/24/16 08:00 35 09/24/16 07:46 97 35 09/24/16 07:00 96 Mechanical Ventilator 15.00 35 09/24/16 04:04 96 35 09/24/16 04:00 40 09/24/16 04:00 98.4 102 21 154/72 97 09/24/16 00:39 95 35 09/24/16 00:00 40 09/24/16 00:00 98.2 78 19 119/64 96 09/23/16 20:00 99.0 95 16 133/78 99 09/23/16 20:00 40 09/23/16 19:51 97 40 09/23/16 19:30 Mechanical Ventilator 15.00 40 09/23/16 18:00 71 09/23/16 16:00 40 09/23/16 16:00 98.7 83 17 108/70 97 09/23/16 16:00 120 09/23/16 15:06 98 40 09/23/16 09/23/16 09/24/16 15:00 23:00 07:00 Intake Total 655 ml 605 ml 829 ml Output Total 550 ml 600 ml 550 ml Balance 105 ml 5 ml 279 ml IV Total 248 ml 265 ml 479 ml Tube Feeding 287 ml 240 ml 250 ml Other 120 ml 100 ml 100 ml Output Urine Total 550 ml 600 ml 550 ml # Bowel Movements 0 0 0 Laboratory Tests Test 09/23/16 09/24/16 03:30 05:00 White Blood Count 11.7 TH/MM3 11.0 TH/MM3 Red Blood Count 2.86 MIL/MM3 2.94 MIL/MM3 Hemoglobin 8.7 GM/DL 9.0 GM/DL Hematocrit 26.5 % 27.9 % Mean Corpuscular Volume 92.7 FL 94.7 FL Mean Corpuscular Hemoglobin 30.6 PG 30.7 PG Mean Corpuscular Hemoglobin 33.0 % 32.4 % Concent Red Cell Distribution Width 14.7 % 14.4 % Platelet Count 358 TH/MM3 404 TH/MM3 Mean Platelet Volume 8.2 FL 8.3 FL Neutrophils (%) (Auto) 73.9 % 82.7 % Lymphocytes (%) (Auto) 11.0 % 10.4 % Monocytes (%) (Auto) 6.4 % 5.9 % Eosinophils (%) (Auto) 7.8 % 0.3 % Basophils (%) (Auto) 0.9 % 0.7 % Neutrophils # (Auto) 8.6 TH/MM3 9.1 TH/MM3 Lymphocytes # (Auto) 1.3 TH/MM3 1.1 TH/MM3 Monocytes # (Auto) 0.7 TH/MM3 0.6 TH/MM3 Eosinophils # (Auto) 0.9 TH/MM3 0.0 TH/MM3 Basophils # (Auto) 0.1 TH/MM3 0.1 TH/MM3 CBC Comment DIFF FINAL DIFF FINAL Differential Comment Laboratory Tests Test 09/23/16 09/24/16 03:30 05:00 Sodium Level 140 MEQ/L 141 MEQ/L Potassium Level 4.0 MEQ/L 4.6 MEQ/L Chloride Level 98 MEQ/L 100 MEQ/L Carbon Dioxide Level 31.3 MEQ/L 30.7 MEQ/L Anion Gap 11 MEQ/L 10 MEQ/L Blood Urea Nitrogen 97 MG/DL 101 MG/DL Creatinine 3.63 MG/DL 3.21 MG/DL Estimat Glomerular Filtration 16 ML/MIN 19 ML/MIN Rate Random Glucose 141 MG/DL 157 MG/DL Calcium Level 9.0 MG/DL 9.4 MG/DL Phosphorus Level 4.7 MG/DL Albumin 2.1 GM/DL Microbiology Date/Time Procedure Status Source Growth 09/22/16 10:00 Gram Stain - Final Complete Sputum Endotracheal 09/22/16 10:00 Sputum Culture - Final Complete Sputum Endotracheal NO GROWTH IN 48 HOURS. Last Impressions Chest X-Ray 09/23/16 0000 Signed Impressions: Service Date/Time: September 08:16 - CONCLUSION: 1. Multiple tubes and lines are in good positions. 2. Bilateral pulmonary infiltrates are unchanged compared to the previous examination. Jeffrey Mohan MD Chest CT 09/21/16 0000 Signed Impressions: Service Date/Time: Wednesday, September 21, 2016 22:34 - CONCLUSION: 1. Diffuse airspace opacities with ground glass appearance throughout both lungs. 2. Moderate-sized bilateral pleural effusions. 3. Ectatic and dilated descending thoracic aorta, measuring up to 5.[address] Martinez MD Head Magnetic Resonance Angiography 09/10/168 Signed Impressions: Service Date/Time: Saturday, September 10, 2016 10:57 - CONCLUSION: 1. Unremarkable MRA examination without evidence for large vessel occlusion, aneurysm, or vascular malformation. Richardson Haney MD Brain MRI 09/10/16 1028 Signed Impressions: Service Date/Time: Saturday, September 10, 2016 10:57 - CONCLUSION: 1. Findings most consistent with new embolic infarcts involving both the anterior and posterior circulation. Richardson Haney MD Carotid Artery Ultrasound 09/09/16 1028 Signed Impressions: Service Date/Time: September 10:43 - CONCLUSION: 1. Moderate visible plaque without hemodynamically significant stenosis identified. No significant change from August 25. Amado Crain MD Renal Ultrasound 09/09/16 0000 Signed Impressions: Service Date/Time: September 15:41 - CONCLUSION: 1. Cortical atrophy with small bilateral renal cysts. No hydronephrosis. Amado Crain MD Head CT 09/08/16 6963 Signed Impressions: Service Date/Time: Thursday, September 08, 2016 23:41 - CONCLUSION: Stable noncontrast CT with no evidence of hemorrhage or acute infarction. Atrophy and chronic small vessel splenic changes remain. Sanya Cavazos MD PHYSICAL EXAMINATION GENERAL: No acute distress. HEENT: Sclera is non-icteric. Oropharynx mucosa moist. NECK: No swelling or adenopathy. LUNGS: Bilateral rhonchi. Breath sounds decreased. HEART: Regular, S1 and S2. No audible murmur, rub or gallop. ABDOMEN: Bowel sounds present. Soft. No tenderness. EXTREMITIES: No clubbing, no cyanosis. no edema. SKIN: No diffuse rash. NEUROLOGIC: Non focal. PSYCH: Calm and cooperative. IMPRESSION 1. Acute respiratory failure. 2. Bilateral lung infiltrates, probable pneumonia. 3. Mild leukocytosis. RECOMMENDATIONS 1. Continue piperacillin/tazobactam. 2. Stop aztreonam. 3. Stop Vancomycin. 4. Follow clinical status. Dr Greenberg covering this weekend if needed. Sae Nova MD Sep 24, 2016 14:24
--- NOTE | 2016-09-24 14:27 | PD.CARD.PN ---
Subjective Subjective Remarks The patient was extubated today at 1100. Tolerating nasal cannula. patient has productive cough. No CP. Amio bolus/infusion started yesterday. he is currently atrial fibrillation. Per the RN, he has had transient episodes of NSR. (Elin Kwok) Objective Medications Current Medications Medications (Trade) Dose Ordered Sig/Awilda Route Start Time Stop Time Status Last Admin (NS Flush) 2 ml UNSCH PRN IV FLUSH 09/09/16 00:45 (NS Flush) 2 ml BID IV FLUSH 09/09/16 09:00 09/24/16 08:07 (Narcan Inj) 0.4 mg UNSCH PRN IV 09/09/16 00:45 (Xanax) 0.25 mg Q6H PRN PO 09/09/16 13:45 09/23/16 08:09 (Pill Splitter) 1 ea UNSCH PRN OTHER 09/09/16 14:00 (Eliquis) 5 mg BID PO 09/10/16 09:00 09/24/16 08:39 (Catapres) 0.1 mg Q6H PRN PO 09/11/16 14:30 09/19/16 23:02 (Sodium Bicarbonate) 650 mg Q8HR PO 09/15/16 22:00 09/24/16 13:42 (Lopressor Inj) 5 mg Q2HR PRN IV PUSH 09/16/16 14:00 09/23/16 06:45 (Apresoline Inj) 10 mg Q6HR PRN IV PUSH 09/16/16 12:45 09/24/16 08:07 (Peridex 0.12% Liq) 15 ml BID@08,20 MT 09/16/16 20:00 09/24/16 08:38 (Anne-Colace) 1 tab BID PO 09/19/16 21:00 09/24/16 08:39 (Milk Of Magnesia Liq) 30 ml Q12H PRN PO 09/19/16 13:30 09/19/16 13:30 (Senokot) 17.2 mg Q12H PRN PO 09/19/16 13:30 (Dulcolax Supp) 10 mg DAILY PRN RECTAL 09/19/16 13:30 (Lactulose Liq) 30 ml DAILY PRN PO 09/19/16 13:30 (Trandate) 100 mg TID PO 09/20/16 13:00 09/24/16 13:42 (Pepcid) 10 mg DAILY PO 09/21/16 09:00 09/24/16 08:39 (Lasix Inj) 40 mg DAILY IV PUSH 09/22/16 09:00 Hold 09/22/16 09:00 Calcium Acetate 667 mg 667 mg TID PO 09/21/16 18:00 09/24/16 08:39 (Zosyn 2.25 Gm Premix) 50 ml @ 100 mls/hr Q8H IV 09/21/16 18:00 09/24/16 08:38 Chlorhexidine Gluconate 15 ml 15 ml BID@08,20 MT 09/22/16 20:00 (Diprivan 1000 Mg/100ml Inj) 100 ml @ 0 mls/hr TITRATE IV 09/22/16 10:00 09/24/16 05:55 (Beneprotein Powder) 1 pack TID G-TUBE 09/22/16 13:00 Methylprednisolone Sodium Succinate 35 mg 35 mg DAILY IV 09/23/16 15:00 09/24/16 08:38 (Cordarone Inj/ D5W ([place]) Inj) 250 ml @ 0 mls/hr CONTINUOUS IV 09/23/16 18:30 09/23/16 18:44 Vital Signs / I&O Vital Signs Date Time Temp Pulse Resp B/P Pulse Ox O2 Delivery O2 Flow Rate FiO2 09/24/16 14:00 83 09/24/16 12:00 82 09/24/16 12:00 98.4 82 24 118/59 94 09/24/16 11:04 95 Nasal Cannula 5.00 09/24/16 11:04 95 Nasal Cannula 5 09/24/16 10:30 35 09/24/16 10:00 98 09/24/16 09:30 35 09/24/16 09:29 Nasal Cannula 35 09/24/16 09:00 100 138/89 09/24/16 08:30 135 154/72 09/24/16 08:00 98.4 101 14 118/112 99 09/24/16 08:00 101 09/24/16 08:00 35 09/24/16 07:46 97 35 09/24/16 07:00 96 Mechanical Ventilator 15.00 35 09/24/16 04:04 96 35 09/24/16 04:00 40 09/24/16 04:00 98.4 102 21 154/72 97 09/24/16 00:39 95 35 09/24/16 00:00 40 09/24/16 00:00 98.2 78 19 119/64 96 09/23/16 20:00 99.0 95 16 133/78 99 09/23/16 20:00 40 09/23/16 19:51 97 40 09/23/16 19:30 Mechanical Ventilator 15.00 40 09/23/16 18:00 71 09/23/16 16:00 40 09/23/16 16:00 98.7 83 17 108/70 97 09/23/16 16:00 120 09/23/16 15:06 98 40 I/O 09/23/16 09/23/16 09/23/16 09/24/16 09/24/16 09/24/16 07:00 15:00 23:00 07:00 15:00 23:00 Intake Total 927 ml 655 ml 605 ml 829 ml 935 ml Output Total 725 ml 550 ml 600 ml 550 ml 750 ml Balance 202 ml 105 ml 5 ml 279 ml 185 ml Intake Oral 240 ml IV Total 597 ml 248 ml 265 ml 479 ml 410 ml Tube Feeding 270 ml 287 ml 240 ml 250 ml 165 ml Tube Irrigant 120 ml Other 60 ml 120 ml 100 ml 100 ml Output Urine Total 725 ml 550 ml 600 ml 550 ml 750 ml # Bowel Movements 0 0 0 0 0 Physical Exam GENERAL: Elderly male, up in bed SKIN: Warm and dry. HEAD: Normocephalic. EYES: No scleral icterus. No injection or drainage. NECK: Supple, trachea midline CARDIOVASCULAR: Midline incision healing well,IRREG IRREG RESPIRATORY: Bilateral rales, productive cough GASTROINTESTINAL: Abdomen soft, non-tender, nondistended. MUSCULOSKELETAL: No cyanosis, no BLE edema BACK: Nontender without obvious deformity. Laboratory Laboratory Tests Test 09/24/16 05:00 White Blood Count 11.0 TH/MM3 Red Blood Count 2.94 MIL/MM3 Hemoglobin 9.0 GM/DL Hematocrit 27.9 % Mean Corpuscular Volume 94.7 FL Mean Corpuscular Hemoglobin 30.7 PG Mean Corpuscular Hemoglobin 32.4 % Concent Red Cell Distribution Width 14.4 % Platelet Count 404 TH/MM3 Mean Platelet Volume 8.3 FL Neutrophils (%) (Auto) 82.7 % Lymphocytes (%) (Auto) 10.4 % Monocytes (%) (Auto) 5.9 % Eosinophils (%) (Auto) 0.3 % Basophils (%) (Auto) 0.7 % Neutrophils # (Auto) 9.1 TH/MM3 Lymphocytes # (Auto) 1.1 TH/MM3 Monocytes # (Auto) 0.6 TH/MM3 Eosinophils # (Auto) 0.0 TH/MM3 Basophils # (Auto) 0.1 TH/MM3 CBC Comment DIFF FINAL Differential Comment Sodium Level 141 MEQ/L Potassium Level 4.6 MEQ/L Chloride Level 100 MEQ/L Carbon Dioxide Level 30.7 MEQ/L Anion Gap 10 MEQ/L Blood Urea Nitrogen 101 MG/DL Creatinine 3.21 MG/DL Estimat Glomerular Filtration 19 ML/MIN Rate Random Glucose 157 MG/DL Calcium Level 9.4 MG/DL Phosphorus Level 4.7 MG/DL Albumin 2.1 GM/DL Random Vancomycin Level 18.8 COMMENT Imaging Last 72 hours Impressions Chest X-Ray 09/23/16 0000 Signed Impressions: Service Date/Time: September 08:16 - CONCLUSION: 1. Multiple tubes and lines are in good positions. 2. Bilateral pulmonary infiltrates are unchanged compared to the previous examination. Jeffrey Mohan MD Chest X-Ray 09/22/16 0000 Signed Impressions: Service Date/Time: Thursday, September 22, 2016 10:01 - CONCLUSION: 1. Interval intubation. 2. Interval placement of nasogastric tube with the tip at the level gastroesophageal junction and the side-port at the level of distal esophagus. This could be advanced at least 8 cm into the stomach. 3. Interval improvement in bilateral pulmonary infiltrates with mild residual. Sanya Cavazos MD (Elin Kwok) Assessment and Plan Assessment and Plan Status post recurrent acute hypoxic respiratory failure requiring ventilator support. Now with VAP/HCAP. Tolerating NC Chest pain, troponin elevated likely due to CKD and had recent NSTEMI. Atrial fibrillation with CVA and TIAs. Patient was on subtherapeutic Eliquis prior to admission. Now on Eliquis 5 mg BID. Now with recurrent atrial fibrillation. 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 Etiology not completely clear PLAN: Continue abx and diuretics. Recurrent atrial fibrillation with controlled ventricular response. Continue amiodarone. Continue Eliquis and BB. Intolerant of metoprolol due to hallucinations. Will hold off resuming ASA for now . He has been intolerant of multiple statins in the past. Will consider resuming therapy once the patient stabilizes. SBP goal < 130 DBP goal < 90. Continue Labetalol with hold parameters The patient was seen and evaluated by Dr. Moran who completed a [id number] encounter, completed a physical exam and participated in evaluation and management. (Elin Kwok) Assessment and Plan Marginallly better today HJ (Suellen Moran MD) Elin Kwok Sep 24, 2016 14:27 Suellen Moran MD Sep 24, 2016 21:50
--- NOTE | 2016-09-24 15:02 | HHI.CCPN ---
Subjective Remarks/Hospital Course 75 y/o man now about 4 weeks following CABG complicated by CVA. Presented back 08/28 with new onset right arm weakness. Hospital course has been complicated by CKD and fluid overload. We have attempted BiPAP for several hours but he remains in distress and although oxygenation is acceptable work of breathing is excessive. Worrisome increasing metabolic acidosis. 09/17: Gas exchange much improved. BNP 1681, ScVO2 71%. It appears that cardiac output is more than adequate for peripheral needs and the primary pathology is renal failure and fluid overload. If we can manage volume I can probably get him extubated. 09/18: Diffuse crackles. Needs to be diuresed today. Tolerating extubation but at risk for hypoxemic failure again. 09/20 - Re consulted due to worsening hypoxia. Currently on nonrebreather mask. Chest x-ray shows worsening consolidation right lobe creatinine slightly improved over. Family request transfer to [facility] however refused. We'll attempt to decipher status currently unknown. 09/21: Remains on nonrebreather mask. Saturations between 89-97%. Chest x-ray unchanged. Not tachypnea. Not confused. 09/22: Radiographic studies show diffuse interstitial process with skip areas - more indicative of infectious/inflammatory process. Sats 85% with labored pattern. Required intubation for deteriorating respiratory status. 09/23: Gas exchange improving. Pulmonary infiltrates remain very concerning - if most recent sputum is benign I would not be opposed to steroids. Subjective 09/24: Extubated today. On 3 L nasal cannula. Passed swallow evaluation. Appropriate interactive status post extubation. Objective Vital Signs Date Time Temp Pulse Resp B/P Pulse Ox O2 Delivery O2 Flow Rate FiO2 09/24/16 14:00 83 09/24/16 12:00 98.4 24 118/59 94 09/24/16 11:04 Nasal Cannula 5.00 09/24/16 10:30 35 Intake and Output 09/23/16 09/23/16 09/23/16 07:59 15:59 23:59 Intake Total 927 ml 655 ml 605 ml Output Total 725 ml 550 ml 600 ml Balance 202 ml 105 ml 5 ml Result Diagram: 09/24/16 0500 09/24/16 0500 Other Results Microbiology Date/Time Procedure Status Source Growth 09/22/16 10:00 Gram Stain - Final Complete Sputum Endotracheal 09/22/16 10:00 Sputum Culture - Final Complete Sputum Endotracheal NO GROWTH IN 48 HOURS. Imaging Last Impressions Chest X-Ray 09/23/16 0000 Signed Impressions: Service Date/Time: September 08:16 - CONCLUSION: 1. Multiple tubes and lines are in good positions. 2. Bilateral pulmonary infiltrates are unchanged compared to the previous examination. Jeffrey Mohan MD Chest CT 09/21/16 0000 Signed Impressions: Service Date/Time: Wednesday, September 21, 2016 22:34 - CONCLUSION: 1. Diffuse airspace opacities with ground glass appearance throughout both lungs. 2. Moderate-sized bilateral pleural effusions. 3. Ectatic and dilated descending thoracic aorta, measuring up to 5.[address] Martinez MD Head Magnetic Resonance Angiography 09/10/16 1028 Signed Impressions: Service Date/Time: Saturday, September 10, 2016 10:57 - CONCLUSION: 1. Unremarkable MRA examination without evidence for large vessel occlusion, aneurysm, or vascular malformation. Richardson Haney MD Brain MRI 09/10/16 1028 Signed Impressions: Service Date/Time: Saturday, September 10, 2016 10:57 - CONCLUSION: 1. Findings most consistent with new embolic infarcts involving both the anterior and posterior circulation. Richardson Haney MD Carotid Artery Ultrasound 09/09/16 1028 Signed Impressions: Service Date/Time: September 10:43 - CONCLUSION: 1. Moderate visible plaque without hemodynamically significant stenosis identified. No significant change from August 25. Amado Crain MD Renal Ultrasound 09/09/16 0000 Signed Impressions: Service Date/Time: September 15:41 - CONCLUSION: 1. Cortical atrophy with small bilateral renal cysts. No hydronephrosis. Amado Crain MD Head CT 09/08/16 6201 Signed Impressions: Service Date/Time: Thursday, September 08, 2016 23:41 - CONCLUSION: Stable noncontrast CT with no evidence of hemorrhage or acute infarction. Atrophy and chronic small vessel splenic changes remain. Sanya Cavazos MD Objective Remarks GENERAL: 75-year-old male resting in bed in no acute distress SKIN: Warm and dry. HEAD: Atraumatic. Normocephalic. NECK: Trachea midline. No thyromegaly CARDIOVASCULAR: IRR. S1, S2 no S4. Without murmur RESPIRATORY: Few crackles appreciated bilaterally left greater than right. No wheezing. GASTROINTESTINAL: Abdomen soft, non-tender, nondistended. No guarding. BS active. MUSCULOSKELETAL: Extremities with trace to 1+ lower extremity edema. No obvious deformities. Well perfused. NEUROLOGICAL: Cranial nerves II through XII grossly intact. Strength is equal and symmetric bilaterally. Normal sensation. 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 Jeffries/neurology. Currently in Xanax 0.25 mg every 6 hours. Anxiety CV: Coronary disease CABG ASCVD Carotid stenosis TAAA Hypertension dyslipidemia History atrial fibrillation status post ablation 2011 Followed by cardiology. Currently on labetalol 100 mg 3 times a day Currently off atorvastatin 40 mg daily/home medication Currently not on aspirin Currently on amiodarone drip at 0.5 mg per minute. Echocardiogram revealed EF 70%. OHS septal motion./Paradoxical, CARA 50-60 mmHg Resp: Acute hypoxemic respiratory failure Nasal cannula to maintain saturations greater than or equal to 92% Incentive spirometry while awake Extubated 09/23 Chest x-ray 09/21 reveals stable consolidation right upper, middle and lower lobes. Bronchodilator therapy every 6 hours and as indicated GI: Advance diet as tolerated/renal diet On famotidine 10 mg by mouth daily /renal: History of hydroureter Renal ultrasound Revealed no hydronephrosis Currently on sodium bicarbonate 650 every 8 on with PhosLo 667 3 times a day Diuretics held. On Solu-Medrol [address] Cerda Creatinine elevated but decreasing decreased 3.21 currently Endo: Sliding scale insulin if indicated Renal: Acute on chronic kidney injury Off on diuretics Noted elevated lambda and kappa Chains/ESR likely secondary underlying acute kidney injury. Evaluated by Dr. Mccollum/hematology Heme: History of colon cancer status post partial colectomy History of bladder cancer Leukocytosis normocytic anemia Monitor CBC daily. Follow trends. ID: Possible hospital-acquired pneumonia Currently on piperacillin/tazobactam Blood cultures 2 09/08 no growth FEN: Hyponatremia Elevated phosphorus Monitor BMP, magnesium phosphorus daily. Recheck in AM. MSK: PT evaluate and treat Prophylaxis - GI -famotidine - DVT - SCD/apixaban Access - Right subclavian CVL placed 09/16 Level II follow-up. Sign out to hospitalist in a.m. 09/25. Zay Romero MD Sep 24, 2016 15:02 Deteriorating lung function requires mechanical ventilation. Critically ill and markedly worse clinical status over past 48 hours. Discussed in detail with his . Critical care 44 mins aside from procedures Zay Romero MD Sep 24, 2016 15:02
[2016-09-24] MEDS: AMIODARONE INJ 450 MG in DEXTROSE 5% IN WATE(EXCEL) INJ 241 ML IV SCH ×2 (16:04)
[2016-09-24] MEDS: ALPRAZolam 0.25 MG TAB PO PRN (20:39)
[2016-09-25] VITALS (18 sets, daily range): BP systolic 104–142; BP diastolic 65–76; PULSE 74–92; RESP 17–23; TEMP 97.7–99; O2SAT 80–100
[2016-09-25] MEDS: RESP: ALBUTEROL 2.5 MG/3 ML NEB (PRN) NEB (00:15)
[2016-09-25] MEDS ORDERED: FUROSEMIDE 40 MG/4 ML VIAL IV PUSH ONE (00:45)
[2016-09-25] MEDS: PIPERACIL-TAZO 2.25 GM PREMIX 50 ML IV SCH ×3 (01:12→17:57)
[2016-09-25] MEDS: AMIODARONE INJ 450 MG in DEXTROSE 5% IN WATE(EXCEL) INJ 241 ML IV SCH ×2 (04:18)
[2016-09-25 04:39] LABS: BASOPHIL # 0.1 TH/MM3 (0-0.2); BASOPHIL % 0.9 % (0.0-2.0); EOSINOPHIL # 0.2 TH/MM3 (0-0.4); EOSINOPHIL % 1.8 % (0.0-4.0); HEMO FLAGS DIFF FINAL; LYMPH % 13.4 % (9.0-44.0); LYMPHOCYTE # 1.8 TH/MM3 (1.0-4.8); MEAN CELL VOLUME 94.1 FL (80.0-100.0); MEAN CORPUSCULAR HGB CONC 31.9 % (32.0-36.0); MONO % 7.9 % (0.0-8.0); PLATELET COUNT 460 TH/MM3 (150-450); RED BLOOD COUNT 2.98 MIL/MM3 (4.50-5.90); RED CELL DISTRIBUTION WIDTH 14.7 % (11.6-17.2); WHITE BLOOD COUNT 13.2 TH/MM3 (4.0-11.0)
[2016-09-25 04:53] LABS: BICARBONATE 32.8 MEQ/L (21.0-32.0); MAGNESIUM 2.6 MG/DL (1.5-2.5); POTASSIUM 4.2 MEQ/L (3.5-5.1)
[2016-09-25] MEDS: SODIUM BICARBONATE 650 MG TAB PO SCH ×2 (06:25→13:07)
[2016-09-25] MEDS: RESP: ALBUTEROL 2.5 MG/IPRATROPIUM 0.5 MG NEB (SCH) NEB ×3 (07:42→19:22)
[2016-09-25] MEDS: CHLORHEXIDINE 0.12% (ORAL KIT) 15 ML CUP MT SCH ×4 (08:00→20:00)
[2016-09-25] MEDS: DOCUSATE SODIUM 50 MG/SENNA 8.6 MG TAB PO SCH ×2 (09:18→21:00)
[2016-09-25] MEDS: LABETALOL HCL 100 MG TAB PO SCH ×4 (09:18→23:51)
[2016-09-25] MEDS: FAMOTIDINE 20 MG TAB PO SCH (09:18)
[2016-09-25] MEDS: methylPREDNISolone SOD SUCC 40 MG/1 ML VIAL IV SCH (09:18)
[2016-09-25] MEDS: CALCIUM ACETATE 667 MG CAP PO SCH ×3 (09:19→17:57)
[2016-09-25] MEDS: APIXABAN 5 MG TABLET PO SCH ×2 (09:20→21:21)
[2016-09-25] MEDS: SODIUM CHLORIDE 0.9% FLUSH 10 ML FLUSH IV FLUSH SCH ×2 (09:45→21:00)
--- NOTE | 2016-09-25 11:32 | HHI.PR ---
Subjective Remarks Pt feeling better. SOB is improving. Per RN, Sats drops when he lays down to sleep. However when sitting up he does well. Pt denies any CP/N/V and daughter at bedside. concerned about pt going to regular floor as they worry he won't get the care he needs. Objective Vitals Vital Signs Date Time Temp Pulse Resp B/P Pulse Ox O2 Delivery O2 Flow Rate FiO2 09/25/16 07:57 89 Nasal Cannula 5.00 09/25/16 07:43 93 Simple Mask 6.00 09/25/16 06:48 Nasal Cannula 5.00 09/25/16 06:00 74 09/25/16 04:00 75 09/25/16 04:00 97.7 80 23 142/76 98 09/25/16 02:00 85 09/25/16 01:09 97 Partial Rebreather 11.00 09/25/16 01:08 Partial Non-Rebreather 11.00 09/25/16 00:00 98.3 77 21 122/66 98 09/25/16 00:00 75 09/24/16 22:00 77 09/24/16 20:00 84 09/24/16 20:00 97.9 76 18 123/60 93 09/24/16 19:23 93 Nasal Cannula 3.00 09/24/16 19:00 93 Nasal Cannula 3.00 09/24/16 18:00 83 09/24/16 16:00 98.1 87 23 115/59 94 09/24/16 16:00 87 09/24/16 14:00 83 09/24/16 12:00 82 09/24/16 12:00 98.4 82 24 118/59 94 I/O 09/24/16 09/24/16 09/24/16 09/25/16 09/25/16 09/25/16 06:59 14:59 22:59 06:59 14:59 22:59 Intake Total 829 ml 935 ml 472 ml 362 ml Output Total 550 ml 750 ml 550 ml 1200 ml Balance 279 ml 185 ml -78 ml -838 ml Intake Oral 240 ml 250 ml 100 ml IV Total 479 ml 410 ml 222 ml 262 ml Tube Feeding 250 ml 165 ml Tube Irrigant 120 ml Other 100 ml Output Urine Total 550 ml 750 ml 550 ml 1200 ml # Bowel Movements 0 0 Result Diagram: 09/25/16 0409 09/25/16 0409 Imaging Last Impressions Chest X-Ray 09/23/16 0000 Signed Impressions: Service Date/Time: September 08:16 - CONCLUSION: 1. Multiple tubes and lines are in good positions. 2. Bilateral pulmonary infiltrates are unchanged compared to the previous examination. Jeffrey Mohan MD Chest CT 09/21/16 0000 Signed Impressions: Service Date/Time: Wednesday, September 21, 2016 22:34 - CONCLUSION: 1. Diffuse airspace opacities with ground glass appearance throughout both lungs. 2. Moderate-sized bilateral pleural effusions. 3. Ectatic and dilated descending thoracic aorta, measuring up to 5.[address] Martinez MD Head Magnetic Resonance Angiography 09/10/16 1028 Signed Impressions: Service Date/Time: Saturday, September 10, 2016 10:57 - CONCLUSION: 1. Unremarkable MRA examination without evidence for large vessel occlusion, aneurysm, or vascular malformation. Richardson Haney MD Brain MRI 09/10/16 1028 Signed Impressions: Service Date/Time: Saturday, September 10, 2016 10:57 - CONCLUSION: 1. Findings most consistent with new embolic infarcts involving both the anterior and posterior circulation. Richardson Haney MD Carotid Artery Ultrasound 09/09/16 1028 Signed Impressions: Service Date/Time: September 10:43 - CONCLUSION: 1. Moderate visible plaque without hemodynamically significant stenosis identified. No significant change from August 25. Amado Crain MD Renal Ultrasound 09/09/16 0000 Signed Impressions: Service Date/Time: September 15:41 - CONCLUSION: 1. Cortical atrophy with small bilateral renal cysts. No hydronephrosis. Amado Crain MD Head CT 09/08/16 2251 Signed Impressions: Service Date/Time: Thursday, September 08, 2016 23:41 - CONCLUSION: Stable noncontrast CT with no evidence of hemorrhage or acute infarction. Atrophy and chronic small vessel splenic changes remain. Sanya Cavazos MD Objective Remarks GENERAL: 75-year-old male sitting up on recliner chair, eating lunch SKIN: Warm and dry. HEAD: Atraumatic. Normocephalic. NECK: Trachea midline. No thyromegaly CARDIOVASCULAR: irregularly irregular RESPIRATORY: Faint crackles appreciated bilaterally left greater than right. No wheezing. GASTROINTESTINAL: Abdomen soft, non-tender, nondistended. No guarding. BS active. MUSCULOSKELETAL: Extremities with trace lower extremity edema. No obvious deformities. Well perfused. NEUROLOGICAL: Cranial nerves II through XII grossly intact. Strength is equal and symmetric bilaterally. Normal sensation. moves extremities well Procedures none A/P Problem List: (1) Acute hypoxemic respiratory failure ICD Code: J96.01 Status: Acute (2) Fluid overload ICD Code: E87.70 Status: Acute (3) ANNY (acute kidney injury) ICD Code: N17.9 Status: Acute (4) Cerebrovascular accident (CVA) due to embolism ICD Code: I63.9 Status: Acute (5) CKD (chronic kidney disease), stage III ICD Code: N18.3 Status: Chronic (6) Leukocytosis ICD Code: D72.829 Status: Acute (7) CAD (coronary artery disease) ICD Code: I25.10 Status: Chronic (8) Hyperkalemia ICD Code: E87.5 Status: Resolved Assessment and Plan Neuro/Psych: Left occipital, bilateral frontal parietal cerebellar CVA subacute Chronic headaches Chronic benzodiazepine use Chronic oxycodone use MRI brain revealed left occipital, bilateral frontal parietal and cerebellar 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 Jeffries/neurology who has now signed off. on eliquis. on Xanax 0.25 mg every 6 hours. Anxiety CV: Coronary disease CABG ASCVD Carotid stenosis TAAA Hypertension dyslipidemia History atrial fibrillation status post ablation 2011 Followed by cardiology. still on amiodarone gtt. Currently on labetalol 100 mg 3 times a day Currently off atorvastatin 40 mg daily/home medication due to intolerance to statins per cards note Not on aspirin per cards Echocardiogram revealed EF 65-70%. OHS septal motion./Paradoxical, CARA 50-60 mmHg Resp: Acute hypoxemic respiratory failure Nasal cannula to maintain saturations greater than or equal to 92% Incentive spirometry while awake Extubated 09/23 Chest x-ray 09/23 pulm infiltrates unchanged. Bronchodilator therapy every 6 hours and as indicated pulm following, on IV solumedrol and duonebs. continue GI: Advance diet as tolerated/renal diet On famotidine 10 mg by mouth daily /renal: History of hydroureter Renal ultrasound Revealed no hydronephrosis Currently on sodium bicarbonate 650 every 8 on with PhosLo 667 3 times a day Diuretics held. On Solu-Medrol 35 mg IV daily per Dr. Cerda Creatinine down to 2.90 this morning. Noted elevated lambda and kappa Chains/ESR likely secondary underlying acute kidney injury. Evaluated by Dr. Mccollum/hematology Endo: Sliding scale insulin if indicated Heme: History of colon cancer status post partial colectomy History of bladder cancer Leukocytosis normocytic anemia Monitor CBC daily. Follow trends. ID: Possible hospital-acquired pneumonia Currently on piperacillin/tazobactam Blood cultures 2 09/08 no growth sputum cx neg x 48 hrs FEN: Hyponatremia Elevated phosphorus Monitor BMP, magnesium phosphorus daily. Recheck in AM. MSK: PT evaluate and treat. Encourage out of bed to chair and ambulation. Prophylaxis - GI -famotidine - DVT - SCD/eliquis Access - Right subclavian CVL placed 09/16 Discharge Planning continue to monitor in ICU as pt still on amiodarone gtt. awaiting recs from ID, cards Manuela Sandhu MD Sep 25, 2016 11:31 MSK: PT evaluate and treat Prophylaxis - GI -famotidine - DVT - SCD/apixaban Access - Right subclavian CVL placed 09/16 Manuela Sandhu MD Sep 25, 2016 11:31
--- NOTE | 2016-09-25 18:31 | HHI.NPPN ---
Subjective History of Present Illness The patient is a 75 yo [place] male who presented to this facility 09/08 with complaints of R hand weakness. He was here at this facility just 10 days ago for 4-vessel CABG, discharged on 08/29. While undergoing CABG, he suffered a stroke and came in today as he was concerned he was having another. Was having no other neurological issues. We were consulted for acute renal failure. Presenting SCr of 3.65 that has worsened significantly from discharge on 08/29 at 1.53. Appears baseline renal function 1.2-1.6 according to previous records. States he has been at his usual state of health since his hospital discharge besides R hand weakness that resolved on its own while here in the ED. Denies any NVD. No NSAIDs. Denies any urinary issues. Review of previous imaging (namely CTA on 08/24) showed a L sided hydronephrosis extending to UVJ. THe patient was unaware of this. He has hx of bladder CA that was treated by surgical resection at [facility] about 1 year ago. Scheduled for f/u there in 1 month. CTA also revealed abdominal aneurysm that vascular surgery was consulted about and was supposed to have f/u as outpatient. Interval History The patient is extubated. Appears alert and orientated. No verbal complaints. Review of Systems General General Remarks No current complaints. Objective Data Data 09/24/16 09/25/16 19:00 07:00 Intake Total 935 ml 834 ml Output Total 750 ml 1750 ml Balance 185 ml -916 ml Intake Oral 240 ml 350 ml IV Total 410 ml 484 ml Tube Feeding 165 ml Tube Irrigant 120 ml Output Urine Total 750 ml 1750 ml # Bowel Movements 0 Vital Signs Date Time Temp Pulse Resp B/P Pulse Ox O2 Delivery O2 Flow Rate FiO2 09/25/16 16:07 100 35 09/25/16 16:00 89 09/25/16 16:00 98.0 89 21 129/68 89 09/25/16 14:00 84 09/25/16 12:00 98.1 88 22 104/65 98 09/25/16 12:00 88 09/25/16 11:59 97 Nasal Cannula 5.00 09/25/16 10:00 91 09/25/16 08:00 92 09/25/16 08:00 99.0 92 17 123/67 98 09/25/16 07:57 89 Nasal Cannula 5.00 09/25/16 07:43 93 Simple Mask 6.00 09/25/16 07:00 97 Partial Non-Rebreather 11.00 Nasal Cannula 09/25/16 06:48 Nasal Cannula 5.00 09/25/16 06:00 74 09/25/16 04:00 75 09/25/16 04:00 97.7 80 23 142/76 98 09/25/16 02:00 85 09/25/16 01:09 97 Partial Rebreather 11.00 09/25/16 01:08 Partial Non-Rebreather 11.00 09/25/16 00:00 98.3 77 21 122/66 98 09/25/16 00:00 75 09/24/16 22:00 77 09/24/16 20:00 84 09/24/16 20:00 97.9 76 18 123/60 93 09/24/16 19:23 93 Nasal Cannula 3.00 09/24/16 19:00 93 Nasal Cannula 3.00 -: 09/25/16 0409 09/25/16 0409 Physical Exam General Appearance: No Acute Distress Eyes Eye Exam: Sclera White Pulmonary Resp Exam: Breath Sounds Equal, No Distress Cardiology CV Exam: Normal Sinus Rhythm, Irregular Gastrointestinal/Abdomen GI Exam: Soft, Non-Tender Integumentary Skin Exam: Clear, Warm Skin Remarks Skin turgor diminished. Extremeties Extremities Exam: No Edema Neurologic Neuro Exam: Alert, Awake Assessment/Plan Discussed Condition With: Patient Problem List: (1) Acute kidney failure Plan: Differential diagnosis at this point as far as acute renal insufficiency is concerned would be atheroembolic disease occurring during previous admission with subsequent decline in renal function and a lesser consideration towards interstitial nephritis possibly related to Protonix. Renal function has improved significantly over the last few days. I discussed possibility of adding steroids which may hasten improvement of interstitial nephritis if present and infectious disease as well as critical care indicated no contraindication presently. Renal biopsy is not a consideration at this time because of patient's instability and patient indicating today that he would not agree to have biopsy. Continue therapy with equivalent of prednisone about 40 mg a day i.e. as methylprednisolone 35 mg daily. Recommend avoidance of Protonix in the future without kidney biopsy to confirm or eliminate incision nephritis. This was discussed with the patient. His acid base status has improved and at this point in time we'll discontinue bicarbonate as his bicarbonate level is currently above normal range. Hopefully the patient's renal function will continue to improve but this remains to be determined as discussed with the patient. Antiglomerular basement membrane antibodies negative. Medications should be adjusted for the patient's renal decline. Avoid nephrotoxic medications including NSAIDs and iodinated contrast dyes. Gadolinium should be avoided as eGFR 30. (2) CKD (chronic kidney disease) stage 3, GFR 30-59 ml/min Plan: Predating acute renal insufficiency. (3) TIA (transient ischemic attack) (4) Hypertension (5) CAD (coronary artery disease) (6) Congestive heart failure Plan: Compensated currently. (7) Anemia Plan: Of acute illness. Problem Qualifiers (1) TIA (transient ischemic attack): Qualified Code: G45.9 - Transient cerebral ischemia, unspecified type Liv Cerda MD Sep 25, 2016 18:31
--- NOTE | 2016-09-25 18:40 | HHI.PR ---
Subjective Remarks Extubated and on O 2 N/C 3 L talking well. Oriented CXR shows bilateral infiltrates Objective Vital Signs Date Time Temp Pulse Resp B/P Pulse Ox O2 Delivery O2 Flow Rate FiO2 09/25/16 16:07 100 35 09/25/16 16:00 89 09/25/16 16:00 98.0 89 21 129/68 89 09/25/16 14:00 84 09/25/16 12:00 98.1 88 22 104/65 98 09/25/16 12:00 88 09/25/16 11:59 97 Nasal Cannula 5.00 09/25/16 10:00 91 09/25/16 08:00 92 09/25/16 08:00 99.0 92 17 123/67 98 09/25/16 07:57 89 Nasal Cannula 5.00 09/25/16 07:43 93 Simple Mask 6.00 09/25/16 07:00 97 Partial Non-Rebreather 11.00 Nasal Cannula 09/25/16 06:48 Nasal Cannula 5.00 09/25/16 06:00 74 09/25/16 04:00 75 09/25/16 04:00 97.7 80 23 142/76 98 09/25/16 02:00 85 09/25/16 01:09 97 Partial Rebreather 11.00 09/25/16 01:08 Partial Non-Rebreather 11.00 09/25/16 00:00 98.3 77 21 122/66 98 09/25/16 00:00 75 09/24/16 22:00 77 09/24/16 20:00 84 09/24/16 20:00 97.9 76 18 123/60 93 09/24/16 19:23 93 Nasal Cannula 3.00 09/24/16 19:00 93 Nasal Cannula 3.00 I/O 09/24/16 09/24/16 09/24/16 09/25/16 09/25/16 09/25/16 07:00 15:00 23:00 07:00 15:00 23:00 Intake Total 829 ml 935 ml 472 ml 362 ml 638 ml Output Total 550 ml 750 ml 550 ml 1200 ml 750 ml Balance 279 ml 185 ml -78 ml -838 ml -112 ml Intake Oral 240 ml 250 ml 100 ml 450 ml IV Total 479 ml 410 ml 222 ml 262 ml 188 ml Tube Feeding 250 ml 165 ml Tube Irrigant 120 ml Other 100 ml Output Urine Total 550 ml 750 ml 550 ml 1200 ml 750 ml # Bowel Movements 0 0 Result Diagram: 09/25/1640809/25/16408 Objective Remarks GENERAL: This moderately overweight elderly man alert HEENT: Head is normocephalic. Pupils are reactive. Tongue is dry. Throat clear NECK: Supple with no venous distention. Trachea is midline. No thyroid enlargement. CHEST: Equal movements with diminished breath sounds at the bases with a few bibasilar crackles. HEART: Sounds are irregular S1-S2. No murmur. ABDOMEN: Soft. Protuberant without masses. No organomegaly. EXTREMITIES: Decreased pulses. The patient has some weakness of the right side. SKIN: Dry and cool. Assessment and Plan Assessment and Plan IMPRESSION 1. Acute respiratory failure. 2. Fluid overload status with pulmonary edema. 3. Acute kidney failure. 4. History of cerebrovascular accident. 5. Bibasilar atelectasis with possible pneumonia. 6. History of colon cancer and bladder cancer. Plan : 1. Wean Fio2 to keep sat >92. 2. O2 4L 3. Nebs qid ,Duoneb. 4. Continue IV solumedrol 40 mg daily. 5. Antibiotics per ID 6. Labs in am 7. IS at bedside q3h Jaime Encinas MD Sep 25, 2016 18:40
[2016-09-26] VITALS (14 sets, daily range): BP systolic 127–152; BP diastolic 65–74; PULSE 73–88; RESP 20–25; TEMP 98–98.8; O2SAT 86–97
[2016-09-26] MEDS: ALPRAZolam 0.25 MG TAB PO PRN ×2 (00:59→21:54)
[2016-09-26] MEDS: PIPERACIL-TAZO 2.25 GM PREMIX 50 ML IV SCH ×3 (02:35→18:28)
[2016-09-26] MEDS: METOPROLOL TARTRATE 5 MG/5 ML VIAL IV PUSH PRN (05:00)
[2016-09-26 05:52] LABS: AUTOMATED NEUTROPHIL # 9.5 TH/MM3 (1.8-7.7); BASOPHIL # 0.1 TH/MM3 (0-0.2); BASOPHIL % 0.4 % (0.0-2.0); EOSINOPHIL # 0.3 TH/MM3 (0-0.4); EOSINOPHIL % 2.7 % (0.0-4.0); HEMATOCRIT 27.9 % (39.0-51.0); LYMPH % 13.9 % (9.0-44.0); LYMPHOCYTE # 1.8 TH/MM3 (1.0-4.8); MEAN CELL VOLUME 92.7 FL (80.0-100.0); MEAN CORPUSCULAR HEMOGLOBIN 29.3 PG (27.0-34.0); MEAN CORPUSCULAR HGB CONC 31.6 % (32.0-36.0); MONO % 8.7 % (0.0-8.0); NEUT % 74.3 % (16.0-70.0); PLATELET COUNT 465 TH/MM3 (150-450); RED CELL DISTRIBUTION WIDTH 14.5 % (11.6-17.2); WHITE BLOOD COUNT 12.7 TH/MM3 (4.0-11.0)
[2016-09-26 05:58] LABS: HEMO FLAGS AUTO DIFF
[2016-09-26 06:27] LABS: BICARBONATE 29.2 MEQ/L (21.0-32.0); MAGNESIUM 2.4 MG/DL (1.5-2.5); POTASSIUM 3.9 MEQ/L (3.5-5.1)
[2016-09-26] MEDS: RESP: ALBUTEROL 2.5 MG/IPRATROPIUM 0.5 MG NEB (SCH) NEB ×3 (07:20→19:43)
[2016-09-26 07:30] LABS: BANDS 1 % (0-6); EOSINOPHILS 3 % (0-4); MYELOCYTES 2 % (0-0); NEUTROPHIL # MANUAL DIFF 10.2 TH/MM3 (1.8-7.7); PLATELET ESTIMATE SMEAR HIGH (NORMAL); PLATELET MORPHOLOGY NORMAL (NORMAL); POLYS (SEG NEUTROPHILS) 77 % (16-70); SCAN/DIFF FINAL DIFF MANUAL; WBC DIFF SAMPLE 100
[2016-09-26] MEDS: CHLORHEXIDINE 0.12% (ORAL KIT) 15 ML CUP MT SCH ×4 (08:00→20:00)
[2016-09-26] MEDS: FAMOTIDINE 20 MG TAB PO SCH (09:00)
[2016-09-26] MEDS: methylPREDNISolone SOD SUCC 40 MG/1 ML VIAL IV SCH (09:00)
[2016-09-26] MEDS: APIXABAN 5 MG TABLET PO SCH ×2 (09:00→21:54)
[2016-09-26] MEDS: DOCUSATE SODIUM 50 MG/SENNA 8.6 MG TAB PO SCH ×2 (09:00→21:00)
[2016-09-26] MEDS: SODIUM CHLORIDE 0.9% FLUSH 10 ML FLUSH IV FLUSH SCH ×2 (09:00→21:00)
[2016-09-26] MEDS: CALCIUM ACETATE 667 MG CAP PO SCH ×3 (09:00→18:28)
[2016-09-26] MEDS: LABETALOL HCL 100 MG TAB PO SCH ×2 (13:00→18:28)
--- NOTE | 2016-09-26 13:45 | HHI.PR ---
Subjective Remarks Pt tells me that he doesn't like the Bipap mask and doesn't want to use it. He states that it blows too much air and he "cant breath". Tells me that SOB is not worst but feels tired. at bedside, frustrated, states that pt is not doing well and won't use the bipap mask. Pt denies any CP/n/v. Objective Vitals Vital Signs Date Time Temp Pulse Resp B/P (MAP) Pulse Ox O2 Delivery O2 Flow Rate FiO2 09/26/16 07:20 93 Nasal Cannula 4.00 09/26/16 07:00 91 Nasal Cannula 5.00 09/26/16 06:00 88 09/26/16 04:00 98.8 88 22 127/67 (87) 93 09/26/16 04:00 88 09/26/16 02:00 83 09/26/16 00:55 Nasal Cannula 4.00 09/26/16 00:15 93 25 09/26/16 00:10 97 Nasal Cannula 4.00 09/26/16 00:00 98.0 73 20 128/68 (88) 93 09/26/16 00:00 78 09/25/16 22:00 74 09/25/16 20:00 87 09/25/16 20:00 98.3 82 21 131/74 (93) 80 09/25/16 19:24 92 Nasal Cannula 2.00 09/25/16 19:00 92 Nasal Cannula 3.00 09/25/16 18:00 82 09/25/16 16:07 100 35 09/25/16 16:00 89 09/25/16 16:00 98.0 89 21 129/68 (88) 89 09/25/16 14:00 84 I/O 09/25/16 09/25/16 09/25/16 09/26/16 09/26/16 09/26/16 07:00 15:00 23:00 07:00 15:00 23:00 Intake Total 362 ml 638 ml 560 ml 864 ml Output Total 1200 ml 750 ml 600 ml 800 ml Balance -838 ml -112 ml -40 ml 64 ml Intake Oral 100 ml 450 ml 360 ml 620 ml IV Total 262 ml 188 ml 200 ml 244 ml Output Urine Total 1200 ml 750 ml 600 ml 800 ml # Bowel Movements 0 0 Result Diagram: 09/26/16 0520 09/26/16 0520 Imaging Last Impressions Chest X-Ray 09/23/16 0000 Signed Impressions: Service Date/Time: September 08:16 - CONCLUSION: 1. Multiple tubes and lines are in good positions. 2. Bilateral pulmonary infiltrates are unchanged compared to the previous examination. Jeffrey Mohan MD Chest CT 09/21/16 0000 Signed Impressions: Service Date/Time: Wednesday, September 21, 2016 22:34 - CONCLUSION: 1. Diffuse airspace opacities with ground glass appearance throughout both lungs. 2. Moderate-sized bilateral pleural effusions. 3. Ectatic and dilated descending thoracic aorta, measuring up to 5.[address] Martinez MD Head Magnetic Resonance Angiography 09/10/16 1028 Signed Impressions: Service Date/Time: Saturday, September 10, 2016 10:57 - CONCLUSION: 1. Unremarkable MRA examination without evidence for large vessel occlusion, aneurysm, or vascular malformation. Richardson Haney MD Brain MRI 09/10/16 1028 Signed Impressions: Service Date/Time: Saturday, September 10, 2016 10:57 - CONCLUSION: 1. Findings most consistent with new embolic infarcts involving both the anterior and posterior circulation. Richardson Haney MD Carotid Artery Ultrasound 09/09/16 1028 Signed Impressions: Service Date/Time: September 10:43 - CONCLUSION: 1. Moderate visible plaque without hemodynamically significant stenosis identified. No significant change from August 25. Amado Crain MD Renal Ultrasound 09/09/16 0000 Signed Impressions: Service Date/Time: September 15:41 - CONCLUSION: 1. Cortical atrophy with small bilateral renal cysts. No hydronephrosis. Amado Crain MD Head CT 09/08/16 2251 Signed Impressions: Service Date/Time: Thursday, September 08, 2016 23:41 - CONCLUSION: Stable noncontrast CT with no evidence of hemorrhage or acute infarction. Atrophy and chronic small vessel splenic changes remain. Sanya Cavazos MD Objective Remarks GENERAL: 75-year-old male laying in bed SKIN: Warm and dry. HEAD: Atraumatic. Normocephalic. NECK: Trachea midline. No thyromegaly CARDIOVASCULAR: irregularly irregular no murmurs RESPIRATORY: Faint crackles appreciated bilaterally left greater than right. No wheezing. GASTROINTESTINAL: Abdomen soft, non-tender, nondistended. No guarding. BS active. MUSCULOSKELETAL: Extremities with trace lower extremity edema. No obvious deformities. Well perfused. NEUROLOGICAL: Cranial nerves II through XII grossly intact. quiet and only briefly answers questions today Procedures none A/P Problem List: (1) Acute hypoxemic respiratory failure ICD Code: J96.01 - Acute respiratory failure with hypoxia Status: Acute (2) Fluid overload ICD Code: E87.70 - Fluid overload, unspecified Status: Acute (3) ANNY (acute kidney injury) ICD Code: N17.9 - Acute kidney failure, unspecified Status: Acute (4) Cerebrovascular accident (CVA) due to embolism ICD Code: I63.9 - Cerebral infarction, unspecified Status: Acute (5) CKD (chronic kidney disease), stage III ICD Code: N18.3 - Chronic kidney disease, stage 3 (moderate) Status: Chronic (6) Leukocytosis ICD Code: D72.829 - Elevated white blood cell count, unspecified Status: Acute (7) CAD (coronary artery disease) ICD Code: I25.10 - Atherosclerotic heart disease of [place] coronary artery without angina pectoris Status: Chronic (8) Hyperkalemia ICD Code: E87.5 - Hyperkalemia Status: Resolved Assessment and Plan Neuro/Psych: Left occipital, bilateral frontal parietal cerebellar CVA subacute Chronic headaches Chronic benzodiazepine use Chronic oxycodone use MRI brain revealed left occipital, bilateral frontal parietal and cerebellar CVA likely [employer] distribution Evaluated by Dr. Jeffries/neurology who has now signed off. on eliquis. on Xanax 0.25 mg every 6 hours. Anxiety CV: Coronary disease CABG ASCVD Carotid stenosis TAAA Hypertension dyslipidemia History atrial fibrillation status post ablation 2011 Followed by cardiology. still on amiodarone gtt. Currently on labetalol 100 mg 3 times a day Currently off atorvastatin 40 mg daily/home medication due to intolerance to statins per cards note Not on aspirin per cards Echocardiogram revealed EF 65-70%. OHS septal motion./Paradoxical, CARA 50-60 mmHg Resp: Acute hypoxemic respiratory failure Nasal cannula to maintain saturations greater than or equal to 92% Incentive spirometry while awake Extubated 09/23 Chest x-ray 09/23 pulm infiltrates unchanged. Bronchodilator therapy every 6 hours and as indicated pulm following, on IV solumedrol and duonebs. continue GI: Advance diet as tolerated/renal diet On famotidine 10 mg by mouth daily /renal: History of hydroureter Renal ultrasound Revealed no hydronephrosis nephrology has stopped sodium bicarbonate. on PhosLo 667 3 times a day Diuretics held. On Solu-Medrol 35 mg IV daily per Dr. Cerda Creatinine down to 2.69 this morning. Noted elevated lambda and kappa Chains/ESR likely secondary underlying acute kidney injury. Evaluated by Dr. Mccollum/hematology Endo: Sliding scale insulin if indicated Heme: History of colon cancer status post partial colectomy History of bladder cancer Leukocytosis normocytic anemia Monitor CBC daily. Follow trends. ID: Possible hospital-acquired pneumonia Currently on piperacillin/tazobactam Blood cultures 2 09/08 no growth sputum cx neg x 48 hrs FEN: Hyponatremia Elevated phosphorus Monitor BMP, magnesium phosphorus daily. Recheck in AM. MSK: PT evaluate and treat. Encourage out of bed to chair and ambulation. Prophylaxis - GI -famotidine - DVT - SCD/eliquis Access - Right subclavian CVL placed 09/16 Discharge Planning continue to monitor in ICU as pt still on amiodarone gtt. awaiting recs from ID, cards, nephrology Manuela Sandhu MD Sep 26, 2016 13:45
--- NOTE | 2016-09-26 17:55 | HHI.NPPN ---
Subjective History of Present Illness The patient is a 75 yo [place] male who presented to this facility 09/08 with complaints of R hand weakness. He was here at this facility just 10 days ago for 4-vessel CABG, discharged on 08/29. While undergoing CABG, he suffered a stroke and came in today as he was concerned he was having another. Was having no other neurological issues. We were consulted for acute renal failure. Presenting SCr of 3.65 that has worsened significantly from discharge on 08/29 at 1.53. Appears baseline renal function 1.2-1.6 according to previous records. States he has been at his usual state of health since his hospital discharge besides R hand weakness that resolved on its own while here in the ED. Denies any NVD. No NSAIDs. Denies any urinary issues. Review of previous imaging (namely CTA on 08/24) showed a L sided hydronephrosis extending to UVJ. THe patient was unaware of this. He has hx of bladder CA that was treated by surgical resection at [facility] about 1 year ago. Scheduled for f/u there in 1 month. CTA also revealed abdominal aneurysm that vascular surgery was consulted about and was supposed to have f/u as outpatient. Interval History Patient sitting up in bed. No verbal complaints. Review of Systems General General Remarks No current complaints. Objective Data Data Vital Signs Date Time Temp Pulse Resp B/P (MAP) Pulse Ox O2 Delivery O2 Flow Rate FiO2 09/26/16 11:25 89 Nasal Cannula 6.00 09/26/16 07:20 93 Nasal Cannula 4.00 09/26/16 07:00 91 Nasal Cannula 5.00 09/26/16 06:00 88 09/26/16 04:00 98.8 88 22 127/67 (87) 93 09/26/16 04:00 88 09/26/16 02:00 83 09/26/16 00:55 Nasal Cannula 4.00 09/26/16 00:15 93 25 09/26/16 00:10 97 Nasal Cannula 4.00 09/26/16 00:00 98.0 73 20 128/68 (88) 93 09/26/16 00:00 78 09/25/16 22:00 74 09/25/16 20:00 87 09/25/16 20:00 98.3 82 21 131/74 (93) 80 09/25/16 19:24 92 Nasal Cannula 2.00 09/25/16 19:00 92 Nasal Cannula 3.00 09/25/16 18:00 82 -: 09/26/16 0520 09/26/16 0520 Physical Exam General Appearance: No Acute Distress Eyes Eye Exam: Sclera White Pulmonary Resp Exam: Breath Sounds Equal, No Distress Cardiology CV Exam: Normal Sinus Rhythm, Irregular Gastrointestinal/Abdomen GI Exam: Soft, Non-Tender Integumentary Skin Exam: Clear, Warm Skin Remarks Skin turgor diminished. Extremeties Extremities Exam: No Edema Neurologic Neuro Exam: Alert, Awake Assessment/Plan Discussed Condition With: Patient Problem List: (1) Acute kidney failure ICD Codes: N17.9 - Acute kidney failure, unspecified Status: Acute Plan: Differential diagnosis at this point as far as acute renal insufficiency is concerned would be atheroembolic disease occurring during previous admission with subsequent decline in renal function and a lesser consideration towards interstitial nephritis possibly related to Protonix. Renal function has improved significantly over the last few days. I discussed possibility of adding steroids which may hasten improvement of interstitial nephritis if present and infectious disease as well as critical care indicated no contraindication presently. Renal biopsy is not a consideration at this time because of patient's instability and patient indicating today that he would not agree to have biopsy. Continue therapy with equivalent of prednisone about 40 mg a day i.e. as methylprednisolone 35 mg daily. Recommend avoidance of Protonix in the future without kidney biopsy to confirm or eliminate incision nephritis. This was discussed with the patient. His acid base status has improved and at this point in time we'll discontinue bicarbonate as his bicarbonate level is currently above normal range. I'm hopeful that improvement in renal function continues but remains be determined what the patient's baseline renal indices will be. Antiglomerular basement membrane antibodies and hepatitis studies negative. As mentioned previously urinalysis was not consistent with a glomerulonephritis. Medications should be adjusted for the patient's renal decline. Avoid nephrotoxic medications including NSAIDs and iodinated contrast dyes. Gadolinium should be avoided as eGFR 30. (2) CKD (chronic kidney disease) stage 3, GFR 30-59 ml/min ICD Codes: N18.3 - Chronic kidney disease, stage 3 (moderate) Status: Acute Plan: Predating acute renal insufficiency. (3) TIA (transient ischemic attack) ICD Codes: G45.9 - Transient cerebral ischemic attack, unspecified Status: Acute (4) Hypertension ICD Codes: I10 - Essential (primary) hypertension Status: Acute (5) CAD (coronary artery disease) ICD Codes: I25.10 - Atherosclerotic heart disease of [place] coronary artery without angina pectoris Status: Chronic (6) Congestive heart failure ICD Codes: I50.9 - Heart failure, unspecified Status: Acute Plan: Compensated currently. (7) Anemia ICD Codes: D64.9 - Anemia, unspecified Status: Acute Plan: Of acute illness. Plan The exam, history, and the medical decision-making described in the above note were completed with the assistance of the YADIRA. I reviewed and agree with the findings presented. Problem Qualifiers (1) TIA (transient ischemic attack): Liv Cerda MD Sep 26, 2016 17:55
--- NOTE | 2016-09-26 22:20 | HHI.PR ---
Subjective Remarks Extubated and on O 2 N/C 3 L Feels better,and alert Oriented. Weak Still.Refused Bipap. CXR shows bilateral infiltrates and atelectasis. Renal Functions are better. Objective Vital Signs Date Time Temp Pulse Resp B/P (MAP) Pulse Ox O2 Delivery O2 Flow Rate FiO2 09/26/16 18:00 74 09/26/16 16:00 98.1 76 23 152/74 (100) 95 09/26/16 16:00 76 09/26/16 14:00 77 09/26/16 11:25 89 Nasal Cannula 6.00 09/26/16 07:20 93 Nasal Cannula 4.00 09/26/16 07:00 91 Nasal Cannula 5.00 09/26/16 06:00 88 09/26/16 04:00 98.8 88 22 127/67 (87) 93 09/26/16 04:00 88 09/26/16 02:00 83 09/26/16 00:55 Nasal Cannula 4.00 09/26/16 00:15 93 25 09/26/16 00:10 97 Nasal Cannula 4.00 09/26/16 00:00 98.0 73 20 128/68 (88) 93 09/26/16 00:00 78 I/O 09/25/16 09/25/16 09/25/16 09/26/16 09/26/16 09/26/16 07:00 15:00 23:00 07:00 15:00 23:00 Intake Total 362 ml 638 ml 560 ml 864 ml 0 ml 896 ml Output Total 1200 ml 750 ml 600 ml 800 ml 1100 ml Balance -838 ml -112 ml -40 ml 64 ml 0 ml -204 ml Intake Oral 100 ml 450 ml 360 ml 620 ml 480 ml IV Total 262 ml 188 ml 200 ml 244 ml 0 ml 416 ml Output Urine Total 1200 ml 750 ml 600 ml 800 ml 1100 ml # Bowel Movements 0 0 2 Result Diagram: 09/26/1651909/26/16519 Objective Remarks GENERAL: This moderately overweight elderly man alert HEENT: Head is normocephalic. Pupils are reactive. Tongue is moist. Throat clear NECK: Supple with no venous distention. Trachea is midline. No thyroid enlargement. CHEST: Equal movements with diminished breath sounds at the bases with a few bibasilar crackles. HEART: Sounds are irregular S1-S2. No murmur. ABDOMEN: Soft. Protuberant without masses. No organomegaly. EXTREMITIES: Decreased pulses. Good exerciser horse bilaterally.Moves legs . SKIN: Dry and cool. Assessment and Plan Assessment and Plan IMPRESSION 1. Acute respiratory failure.Resolving 2. Fluid overload status with pulmonary edema. 3. Acute kidney failure.Resolving 4. History of cerebrovascular accident. 5. Bibasilar atelectasis with possible pneumonia. 6. History of colon cancer and bladder cancer. Plan : 1. Chest Xray in am. 2. O2 4L 3. Nebs qid ,Duoneb. 4. D/C IV solumedrol 5. Antibiotics per ID 6.Bipap mask 12/5 cm at HS if he desats <90. 7. PT Evaluation. 8. Transfer to [facility] Jaime Encinas MD Sep 26, 2016 22:20
[2016-09-27] VITALS (19 sets, daily range): BP systolic 112–145; BP diastolic 55–72; PULSE 74–88; RESP 21–28; TEMP 97.3–98.8; O2SAT 90–97
[2016-09-27] MEDS: PIPERACIL-TAZO 2.25 GM PREMIX 50 ML IV SCH ×2 (01:49→11:24)
[2016-09-27] MEDS: hydrALAZINE HCL 20 MG/ML VIAL IV PUSH PRN (01:50)
[2016-09-27] MEDS: AMIODARONE INJ 450 MG in DEXTROSE 5% IN WATE(EXCEL) INJ 241 ML IV SCH ×2 (02:00)
[2016-09-27 03:50] LABS: BICARBONATE 29.2 MEQ/L (21.0-32.0); POTASSIUM 4.1 MEQ/L (3.5-5.1)
[2016-09-27] MEDS: ALPRAZolam 0.25 MG TAB PO PRN ×3 (05:54→20:48)
[2016-09-27] MEDS: RESP: ALBUTEROL 2.5 MG/IPRATROPIUM 0.5 MG NEB (SCH) NEB ×4 (08:00→20:04)
[2016-09-27] MEDS: CHLORHEXIDINE 0.12% (ORAL KIT) 15 ML CUP MT SCH ×4 (08:00→19:31)
[2016-09-27] MEDS: DOCUSATE SODIUM 50 MG/SENNA 8.6 MG TAB PO SCH ×2 (09:00→20:48)
[2016-09-27] MEDS: SODIUM CHLORIDE 0.9% FLUSH 10 ML FLUSH IV FLUSH SCH ×2 (09:00→19:32)
[2016-09-27] MEDS: CALCIUM ACETATE 667 MG CAP PO SCH ×3 (09:32→17:38)
[2016-09-27] MEDS: APIXABAN 5 MG TABLET PO SCH ×2 (09:33→20:48)
[2016-09-27] MEDS: FAMOTIDINE 20 MG TAB PO SCH (09:34)
[2016-09-27] MEDS: LABETALOL HCL 100 MG TAB PO SCH ×3 (10:07→17:38)
[2016-09-27] MEDS: methylPREDNISolone SOD SUCC 40 MG/1 ML VIAL IV SCH (10:07)
--- NOTE | 2016-09-27 10:09 | HHI.NPPN ---
Subjective History of Present Illness The patient is a 75 yo [place] male who presented to this facility 09/08 with complaints of R hand weakness. He was here at this facility just 10 days ago for 4-vessel CABG, discharged on 08/29. While undergoing CABG, he suffered a stroke and came in today as he was concerned he was having another. Was having no other neurological issues. We were consulted for acute renal failure. Presenting SCr of 3.65 that has worsened significantly from discharge on 08/29 at 1.53. Appears baseline renal function 1.2-1.6 according to previous records. States he has been at his usual state of health since his hospital discharge besides R hand weakness that resolved on its own while here in the ED. Denies any NVD. No NSAIDs. Denies any urinary issues. Review of previous imaging (namely CTA on 08/24) showed a L sided hydronephrosis extending to UVJ. THe patient was unaware of this. He has hx of bladder CA that was treated by surgical resection at [facility] about 1 year ago. Scheduled for f/u there in 1 month. CTA also revealed abdominal aneurysm that vascular surgery was consulted about and was supposed to have f/u as outpatient. Interval History Pt feeling OK today. Still having difficulties with breathing. Had been refusing BiPAP but consented last night. Not tolerating non-rebreather. Currently on NC. Appears somewhat lethargic (Radha Hagen) Review of Systems Respiratory Lungs: SOB (Radha Hagen) Objective Data Data Vital Signs Date Time Temp Pulse Resp B/P (MAP) Pulse Ox O2 Delivery O2 Flow Rate FiO2 09/27/16 06:00 84 09/27/16 04:50 93 Partial Rebreather 13.00 09/27/16 04:04 93 50 09/27/16 04:00 97.8 80 22 136/69 (91) 92 09/27/16 04:00 82 09/27/16 02:00 74 09/27/16 02:00 68 125/60 09/27/16 00:18 93 50 09/27/16 00:00 74 09/27/16 00:00 98.0 75 25 145/72 (96) 90 09/26/16 22:00 73 09/26/16 20:00 75 09/26/16 20:00 98.0 75 25 135/65 (88) 86 09/26/16 19:41 92 Nasal Cannula 6.00 09/26/16 19:00 97 Simple Mask 8.00 09/26/16 18:00 74 09/26/16 16:00 98.1 76 23 152/74 (100) 95 09/26/16 16:00 76 09/26/16 14:00 77 09/26/16 11:25 89 Nasal Cannula 6.00 (Radha Hagen) -: 09/26/16 0520 09/27/16 0310 Imaging Last Impressions Chest X-Ray 09/23/16 0000 Signed Impressions: Service Date/Time: September 08:16 - CONCLUSION: 1. Multiple tubes and lines are in good positions. 2. Bilateral pulmonary infiltrates are unchanged compared to the previous examination. Jeffrey Mohan MD Chest CT 09/21/16 0000 Signed Impressions: Service Date/Time: Wednesday, September 21, 2016 22:34 - CONCLUSION: 1. Diffuse airspace opacities with ground glass appearance throughout both lungs. 2. Moderate-sized bilateral pleural effusions. 3. Ectatic and dilated descending thoracic aorta, measuring up to 5.[address] Martinez MD Head Magnetic Resonance Angiography 09/10/16 1028 Signed Impressions: Service Date/Time: Saturday, September 10, 2016 10:57 - CONCLUSION: 1. Unremarkable MRA examination without evidence for large vessel occlusion, aneurysm, or vascular malformation. Richardson Haney MD Brain MRI 09/10/16 1028 Signed Impressions: Service Date/Time: Saturday, September 10, 2016 10:57 - CONCLUSION: 1. Findings most consistent with new embolic infarcts involving both the anterior and posterior circulation. Richardson Haney MD Carotid Artery Ultrasound 09/09/16 1028 Signed Impressions: Service Date/Time: September 10:43 - CONCLUSION: 1. Moderate visible plaque without hemodynamically significant stenosis identified. No significant change from August 25. Amado Crain MD Renal Ultrasound 09/09/16 0000 Signed Impressions: Service Date/Time: September 15:41 - CONCLUSION: 1. Cortical atrophy with small bilateral renal cysts. No hydronephrosis. Amado Crain MD Head CT 09/08/16 7257 Signed Impressions: Service Date/Time: Thursday, September 08, 2016 23:41 - CONCLUSION: Stable noncontrast CT with no evidence of hemorrhage or acute infarction. Atrophy and chronic small vessel splenic changes remain. Sanya Cavazos MD Medication Review Current Medications Medications (Trade) Dose Ordered Sig/Awilda Route Start Time Stop Time Status Last Admin (NS Flush) 2 ml UNSCH PRN IV FLUSH 09/09/16 00:45 (NS Flush) 2 ml BID IV FLUSH 09/09/16 09:00 09/26/16 21:00 (Narcan Inj) 0.4 mg UNSCH PRN IV 09/09/16 00:45 (Xanax) 0.25 mg Q6H PRN PO 09/09/16 13:45 09/27/16 05:54 (Pill Splitter) 1 ea UNSCH PRN OTHER 09/09/16 14:00 (Eliquis) 5 mg BID PO 09/10/16 09:00 09/26/16 21:54 (Catapres) 0.1 mg Q6H PRN PO 09/11/16 14:30 09/19/16 23:02 (Lopressor Inj) 5 mg Q2HR PRN IV PUSH 09/16/16 14:00 09/26/16 05:00 (Apresoline Inj) 10 mg Q6HR PRN IV PUSH 09/16/16 12:45 09/27/16 01:50 (Peridex 0.12% Liq) 15 ml BID@08,20 MT 09/16/16 20:00 09/26/16 20:00 (Racepinephrine 2.25% Neb) 0.5 ml Q1HR NEB PRN NEB 09/17/16 17:15 09/17/16 18:02 (Anne-Colace) 1 tab BID PO 09/19/16 21:00 09/26/16 09:00 (Milk Of Magnesia Liq) 30 ml Q12H PRN PO 09/19/16 13:30 09/19/16 13:30 (Senokot) 17.2 mg Q12H PRN PO 09/19/16 13:30 (Dulcolax Supp) 10 mg DAILY PRN RECTAL 09/19/16 13:30 (Lactulose Liq) 30 ml DAILY PRN PO 09/19/16 13:30 (Trandate) 100 mg TID PO 09/20/16 13:00 09/26/16 18:28 (Pepcid) 10 mg DAILY PO 09/21/16 09:00 09/26/16 09:00 (Duoneb Neb) 1 ampule QID NEB NEB 09/21/16 12:00 09/26/16 19:43 (Albuterol Neb) 2.5 mg Q2HR NEB PRN NEB 09/21/16 12:00 09/25/16 00:15 (Phoslo) 667 mg TID PO 09/21/16 18:00 09/26/16 18:28 Piperacillin Sod/ Tazobactam Sod 50 ml @ 100 mls/hr Q8H IV 09/21/16 18:00 09/27/16 01:49 (Peridex 0.12% Liq) 15 ml BID@08,20 MT 09/22/16 20:00 (SoluMEDROL INJ) 35 mg DAILY IV 09/23/16 15:00 09/26/16 09:00 Amiodarone HCl 450 mg/Dextrose 250 ml @ 0 mls/hr CONTINUOUS IV 09/24/16 15:32 09/27/16 02:00 (Radha Hagen) Physical Exam General Appearance: No Acute Distress (Radha Hagen) Eyes Eye Exam: Sclera White (Radha Hagen) Pulmonary Resp Exam: Breath Sounds Equal, No Distress, Diminished Breath Sounds (Radha Hagen) Cardiology CV Exam: Normal Sinus Rhythm, Irregular (Radha Hagen) Gastrointestinal/Abdomen GI Exam: Soft, Non-Tender (Radha Hagen) Integumentary Skin Exam: Clear, Warm (Radha Hagen) Extremeties Extremities Exam: No Edema (Radha Hagen) Neurologic Neuro Exam: Awake (Radha Hagen) Assessment/Plan Discussed Condition With: Patient Problem List: (1) Acute kidney failure ICD Codes: N17.9 - Acute kidney failure, unspecified Status: Acute Plan: Differential diagnosis at this point as far as acute renal insufficiency is concerned would be atheroembolic disease occurring during previous admission with subsequent decline in renal function and a lesser consideration towards interstitial nephritis possibly related to Protonix. Renal functions have improved over the past few days. To continue on Solu-Medrol. Remains to be seen where renal functions will stabilize. Check PO4 levels Recommend avoidance of Protonix in the future without kidney biopsy to confirm or eliminate incision nephritis. Medications should be adjusted for the patient's renal decline. Avoid nephrotoxic medications including NSAIDs and iodinated contrast dyes. Gadolinium should be avoided as eGFR 30. (2) CKD (chronic kidney disease) stage 3, GFR 30-59 ml/min ICD Codes: N18.3 - Chronic kidney disease, stage 3 (moderate) Status: Acute Plan: Predating acute renal insufficiency. (3) Hypoxemic respiratory failure, chronic ICD Codes: J96.11 - Chronic respiratory failure with hypoxia Status: Acute Plan: Pt s/p extubation, but not tolerating Bi-PAP. Sats in upper 80s to 90s on NC. (4) TIA (transient ischemic attack) ICD Codes: G45.9 - Transient cerebral ischemic attack, unspecified Status: Acute (5) Hypertension ICD Codes: I10 - Essential (primary) hypertension Status: Acute (6) CAD (coronary artery disease) ICD Codes: I25.10 - Atherosclerotic heart disease of [place] coronary artery without angina pectoris Status: Chronic (7) Congestive heart failure ICD Codes: I50.9 - Heart failure, unspecified Status: Acute Plan: Compensated currently. (8) Anemia ICD Codes: D64.9 - Anemia, unspecified Status: Acute Plan: Of acute illness. (Radha Hagen) Plan The exam, history, and the medical decision-making described in the above note were completed with the assistance of the YADIRA. I reviewed and agree with the findings presented. (Liv Cerda MD) Problem Qualifiers (1) TIA (transient ischemic attack): Radha Hagen Sep 27, 2016 10:09 Liv Cerda MD Sep 30, 2016 17:17
--- NOTE | 2016-09-27 12:02 | HHI.PR ---
Subjective Remarks Pt is more lethargic this morning. He does open eyes and will shake yes and no but doesn't speak much. On non partial rebreather at 12L at this time. Per RN, pt was not responding earlier prior to my arrival but seems to be waking up slowly. Concerned about pt's respiratory status Objective Vitals Vital Signs Date Time Temp Pulse Resp B/P (MAP) Pulse Ox O2 Delivery O2 Flow Rate FiO2 09/27/16 06:00 84 09/27/16 04:50 93 Partial Rebreather 13.00 09/27/16 04:04 93 50 09/27/16 04:00 97.8 80 22 136/69 (91) 92 09/27/16 04:00 82 09/27/16 02:00 74 09/27/16 02:00 68 125/60 09/27/16 00:18 93 50 09/27/16 00:00 74 09/27/16 00:00 98.0 75 25 145/72 (96) 90 09/26/16 22:00 73 09/26/16 20:00 75 09/26/16 20:00 98.0 75 25 135/65 (88) 86 09/26/16 19:41 92 Nasal Cannula 6.00 09/26/16 19:00 97 Simple Mask 8.00 09/26/16 18:00 74 09/26/16 16:00 98.1 76 23 152/74 (100) 95 09/26/16 16:00 76 09/26/16 14:00 77 I/O 09/26/16 09/26/16 09/26/16 09/27/16 09/27/16 09/27/16 06:59 14:59 22:59 06:59 14:59 22:59 Intake Total 864 ml 0 ml 896 ml 417 ml Output Total 800 ml 1100 ml 1200 ml Balance 64 ml 0 ml -204 ml -783 ml Intake Oral 620 ml 480 ml 240 ml IV Total 244 ml 0 ml 416 ml 177 ml Output Urine Total 800 ml 1100 ml 1200 ml # Bowel Movements 0 2 0 Result Diagram: 09/26/16 0520 09/27/16 0310 Imaging Last Impressions Chest X-Ray 09/23/16 0000 Signed Impressions: Service Date/Time: September 08:16 - CONCLUSION: 1. Multiple tubes and lines are in good positions. 2. Bilateral pulmonary infiltrates are unchanged compared to the previous examination. Jeffrey Mohan MD Chest CT 09/21/16 0000 Signed Impressions: Service Date/Time: Wednesday, September 21, 2016 22:34 - CONCLUSION: 1. Diffuse airspace opacities with ground glass appearance throughout both lungs. 2. Moderate-sized bilateral pleural effusions. 3. Ectatic and dilated descending thoracic aorta, measuring up to 5.[address] Martinez MD Head Magnetic Resonance Angiography 09/10/16 1028 Signed Impressions: Service Date/Time: Saturday, September 10, 2016 10:57 - CONCLUSION: 1. Unremarkable MRA examination without evidence for large vessel occlusion, aneurysm, or vascular malformation. Richardosn Haney MD Brain MRI 09/10/16 1028 Signed Impressions: Service Date/Time: Saturday, September 10, 2016 10:57 - CONCLUSION: 1. Findings most consistent with new embolic infarcts involving both the anterior and posterior circulation. Richardson Haney MD Carotid Artery Ultrasound 09/09/16 1028 Signed Impressions: Service Date/Time: September 10:43 - CONCLUSION: 1. Moderate visible plaque without hemodynamically significant stenosis identified. No significant change from August 25. Amado Crain MD Renal Ultrasound 09/09/16 0000 Signed Impressions: Service Date/Time: September 15:41 - CONCLUSION: 1. Cortical atrophy with small bilateral renal cysts. No hydronephrosis. Amado Crain MD Head CT 09/08/16 2251 Signed Impressions: Service Date/Time: Thursday, September 08, 2016 23:41 - CONCLUSION: Stable noncontrast CT with no evidence of hemorrhage or acute infarction. Atrophy and chronic small vessel splenic changes remain. Sanya Cavazos MD Objective Remarks GENERAL: 75-year-old male laying in bed, appears tired but does wake up when I speak w him SKIN: Warm and dry. HEAD: Atraumatic. Normocephalic. NECK: Trachea midline. No thyromegaly CARDIOVASCULAR: irregularly irregular no murmurs RESPIRATORY: Faint crackles appreciated bilaterally left greater than right. No wheezing. GASTROINTESTINAL: Abdomen soft, non-tender, nondistended. No guarding. BS active. MUSCULOSKELETAL: Extremities with trace lower extremity edema. NEUROLOGICAL: opens eyes, able to nod w yes or no, he is able to answer some questions. knows name//and current year Procedures none A/P Problem List: (1) Acute hypoxemic respiratory failure ICD Code: J96.01 - Acute respiratory failure with hypoxia Status: Acute (2) Fluid overload ICD Code: E87.70 - Fluid overload, unspecified Status: Acute (3) ANNY (acute kidney injury) ICD Code: N17.9 - Acute kidney failure, unspecified Status: Acute (4) Cerebrovascular accident (CVA) due to embolism ICD Code: I63.9 - Cerebral infarction, unspecified Status: Acute (5) CKD (chronic kidney disease), stage III ICD Code: N18.3 - Chronic kidney disease, stage 3 (moderate) Status: Chronic (6) Leukocytosis ICD Code: D72.829 - Elevated white blood cell count, unspecified Status: Acute (7) CAD (coronary artery disease) ICD Code: I25.10 - Atherosclerotic heart disease of [place] coronary artery without angina pectoris Status: Chronic (8) Hyperkalemia ICD Code: E87.5 - Hyperkalemia Status: Resolved Assessment and Plan Neuro/Psych: Left occipital, bilateral frontal parietal cerebellar CVA subacute Chronic headaches Chronic benzodiazepine use Chronic oxycodone use MRI brain revealed left occipital, bilateral frontal parietal and cerebellar CVA likely ALFIE/LACE ROLLER distribution Evaluated by Dr. Jeffries/neurology who has now signed off. on eliquis. on Xanax 0.25 mg every 6 hours. Anxiety CV: Coronary disease CABG ASCVD Carotid stenosis TAAA Hypertension dyslipidemia History atrial fibrillation status post ablation 2011 Followed by cardiology. still on amiodarone gtt. Currently on labetalol 100 mg 3 times a day Currently off atorvastatin 40 mg daily/home medication due to intolerance to statins per cards note Not on aspirin per cards Echocardiogram revealed EF 65-70%. OHS septal motion./Paradoxical, CARA 50-60 mmHg Resp: Acute hypoxemic respiratory failure Nasal cannula to maintain saturations greater than or equal to 92% Incentive spirometry while awake Extubated 09/23 Chest x-ray 09/23 pulm infiltrates unchanged. Bronchodilator therapy every 6 hours and as indicated pulm following, on IV solumedrol and duonebs. continue Get stat ABG now. consult palliative care at this time, as pt's condition is worsening, pt has been refusing bipap on and off, did use last night, has been intubated/extubated twice already. GI: Advance diet as tolerated/renal diet On famotidine 10 mg by mouth daily /renal: History of hydroureter Renal ultrasound Revealed no hydronephrosis nephrology has stopped sodium bicarbonate. on PhosLo 667 3 times a day Diuretics held. On Solu-Medrol 35 mg IV daily per Dr. Cerda Creatinine down to 2.69 this morning. Noted elevated lambda and kappa Chains/ESR likely secondary underlying acute kidney injury. Evaluated by Dr. Mccollum/hematology Endo: Sliding scale insulin if indicated Heme: History of colon cancer status post partial colectomy History of bladder cancer Leukocytosis normocytic anemia Monitor CBC daily. Follow trends. ID: Possible hospital-acquired pneumonia Currently on piperacillin/tazobactam Blood cultures 2 09/08 no growth sputum cx neg x 48 hrs FEN: Hyponatremia Elevated phosphorus Monitor BMP, magnesium phosphorus daily. Recheck in AM. MSK: PT evaluate and treat. Encourage out of bed to chair and ambulation. Prophylaxis - GI -famotidine - DVT - SCD/eliquis Access - Right subclavian CVL placed 09/16 Discharge Planning continue to monitor in ICU as pt still on amiodarone gtt. awaiting recs from ID, cards, nephrology Pt is able to tell me that "I want to live", agreeable to intubation if needed. Full code Manuela Sandhu MD Sep 27, 2016 12:02
[2016-09-27 12:20] LABS: BLOOD GAS BASE EXCESS 2.5 mmol/L (-2-2); BLOOD GAS HCO3 26 mmol/L (22-26); BLOOD GAS METHEMOGLOBIN 0.7 % (0-2); BLOOD GAS O2 HGB SATURATION 96 % (90-100); BLOOD GAS OXYGEN CONTENT 12.5 Vol % (12.0-20.0); BLOOD GAS PCO2 36 mmHg (38-42); BLOOD GAS PO2 99 mmHg (61-120); BLOOD GAS TOTAL HGB 9.2 G/DL (12.0-16.0); CRITICAL VALUE NO; DRAW SITE LT RADIAL; LITER FLOW 12 L/M; NUMBER OF ARTERIAL PUNCTURES 1; OXYGEN DEVICE PRBR; STAT YES; TEMP CORR TO 98.6; ULNAR PULSE PRESENT
--- NOTE | 2016-09-27 12:52 | HHI.PR ---
Subjective Remarks Back on O 2 NRB mask. Used Bipap last night .alert and Oriented. Weak Still. CXR shows bilateral infiltrates and atelectasis. Renal Functions are better. Objective Vital Signs Date Time Temp Pulse Resp B/P (MAP) Pulse Ox O2 Delivery O2 Flow Rate FiO2 09/27/16 06:00 84 09/27/16 04:50 93 Partial Rebreather 13.00 09/27/16 04:04 93 50 09/27/16 04:00 97.8 80 22 136/69 (91) 92 09/27/16 04:00 82 09/27/16 02:00 74 09/27/16 02:00 68 125/60 09/27/16 00:18 93 50 09/27/16 00:00 74 09/27/16 00:00 98.0 75 25 145/72 (96) 90 09/26/16 22:00 73 09/26/16 20:00 75 09/26/16 20:00 98.0 75 25 135/65 (88) 86 09/26/16 19:41 92 Nasal Cannula 6.00 09/26/16 19:00 97 Simple Mask 8.00 09/26/16 18:00 74 09/26/16 16:00 98.1 76 23 152/74 (100) 95 09/26/16 16:00 76 09/26/16 14:00 77 I/O 09/26/16 09/26/16 09/26/16 09/27/16 09/27/16 09/27/16 07:00 15:00 23:00 07:00 15:00 23:00 Intake Total 864 ml 0 ml 896 ml 417 ml Output Total 800 ml 1100 ml 1200 ml Balance 64 ml 0 ml -204 ml -783 ml Intake Oral 620 ml 480 ml 240 ml IV Total 244 ml 0 ml 416 ml 177 ml Output Urine Total 800 ml 1100 ml 1200 ml # Bowel Movements 0 2 0 Result Diagram: 09/26/1651909/27/160 Objective Remarks GENERAL: This moderately overweight elderly man alert and in no distress HEENT: Head is normocephalic. Pupils are reactive. Tongue is moist. Throat clear NECK: Supple with no venous distention. Trachea is midline. No thyroid enlargement. CHEST: Equal movements with diminished breath sounds at the bases with a few bibasilar crackles.Occ Wheeze. HEART: Sounds are irregular S1-S2. No murmur. ABDOMEN: Soft. Protuberant without masses. No organomegaly. EXTREMITIES: Decreased pulses. 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 SKIN: Dry and cool. Assessment and Plan Assessment and Plan IMPRESSION 1. Acute respiratory failure.Resolving 2. Fluid overload status with pulmonary edema. 3. Acute kidney failure.Resolving 4. History of cerebrovascular accident. 5. Bibasilar atelectasis with possible pneumonia. 6. History of colon cancer and bladder cancer. Plan : 1. Chest Xray today 2. O2 at 50 % ventimask 3. Nebs qid ,Duoneb. 4. BiPAP today for 4 hrs daytime and at HS 5. Antibiotics per ID 6. Lasix 20 mg IV 7. PT Evaluation. 8. BMP ,CBC Jaime Encinas MD Sep 27, 2016 12:52
[2016-09-27] MEDS ORDERED: FUROSEMIDE 20 MG/2 ML VIAL IV PUSH ONE (13:00)
--- NOTE | 2016-09-27 14:17 | RADRPT ---
EXAM DATE/TIME: 09/27/2016 13:11 [facility] COMPARISON: CHEST SINGLE AP, September 23, 2016, 8:16. INDICATIONS : Short of breath, edema MEDICAL HISTORY : Renal failure, acute. Cardiovascular disease. TIA SURGICAL HISTORY : CABG. ENCOUNTER: Subsequent ACUITY: 2 weeks PAIN SCORE: Non-responsive. LOCATION: Bilateral chest FINDINGS: A single view of the chest demonstrates bilateral airspace disease greatest within the right upper an d both lower lobes. Cardiomegaly and previous CABG. Right subclavian central line stable in position. . Osseous structures are intact. CONCLUSION: Worsening bilateral airspace disease. Jacob Trujillo MD on September 27, 2016 at 14:14 Board Certified Radiologist. This report was verified electronically.
--- NOTE | 2016-09-27 14:42 | PD.CONS ---
Consult Service Palliative Care Consult Requested By Dr. Sandhu . Primary Care Physician Yaya Patrick M.D. Reason for Consultation a. To assist with evaluation and management of symptoms including: dyspnea, anxiety, malnutrition b. To assist medical decision maker(s) with: better understanding of current medical conditions; weighing benefits/burdens of medical treatment options; making medical treatment decisions. HPI History of Present Illness This 75 yr old patient presented to the ED on 09/08/16, with reports of right arm weakness, numbness. Symptoms lasted a few minutes and then subsided. Patient with known history of hypertension, AAA repair, colon and bladder cancer posttreatment, PA, CVA, status post CABG 10 days prior to this. Hospital course: * Head CT with no acute hemorrhage or infarction. Atrophy and chronic small vessel changes. CXR notes mild to moderate cardiomegaly no perihilar edema, mild scarring and/or atelectasis left lung base. No focal neurologic deficits at ED arrival. Imaging unremarkable. Related renal functions BUN 38/ creatinine 3.65, GFR 16. Admitted for further evaluation and management. * Apparently patient suffered a CVA during CABG surgery with some left-sided weakness, at that time had been put on Eliquis * Nephrology consulted: Review of prior CT imaging notes left-sided hydronephrosis. Continue IV fluids, renal ultrasound pending.//Renal ultrasound notes cortical atrophy with small bilateral renal cysts no hydronephrosis * Neurology consulted: Neurology notes echocardiogram unremarkable last admission, CTA with old infarct, new MRI pending, possible TIA consider increase Eliquis vs change to coumadin. * MRI brain 09/10 Findings most consistent with new embolic infarcts involving both the anterior and posterior circulation, * carotid artery ultrasound: Moderate visible plaque without hemodynamically significant stenosis no significant change from 08/25, * head MRA unremarkable MRA exam without evidence for large vessel occlusion aneurysm or vascular malformation * Renal function improving slightly in the days following admission, patient intermittently refusing some by mouth medications. * Nephrology continuing to follow for acute kidney injury unknown etiology--- possibility that the patient may have sustained atheroembolic episodes to the kidney * Patient at times refusing to take metoprolol reports chest pain when he does, cardiology consulted--etiology notes chest pain and troponins likely elevated to seek ED prior NSTEMI. Patient wants to change from Eliquis to Coumadin. Cardiology notes extensive discussion regarding. Metoprolol changed to labetalol. Continue Eliquis. * 09/14 renal functions trending back up; patient and apparently agitated at times and our discussions regarding signing out AMA, medical team recommends continue with hydration and time to treat conditions. Nephrology recommends ophthalmology consult to determine whether or not patient with evidence of retinal cholesterol crystal emboli--in which case if they are present renal biopsy not indicated. If the patient has sustained arterial embolic disease to the kidney renal insufficiency likely progressing to end-stage. Her other nodes patients with cholesterol embolic disease with poor overall prognosis. Nephrology notes discussion with patient and who at this time are considering leaving AMA versus transfer to another facility, strongly advised to continue treatments. * Ophthalmology evaluated 09/17no cholesterol emboli noted on exam * Patient neurological status stable, neurology has signed off, recommends hematology consult for inflammatory markers * Hematology consulted for elevated free light chain--Dr. Pascal notes this is not pathologic, reason for elevation is renal failure, not meaningful at this time no further treatment from hematology perspective * HALICAT 09/16 for decreased O2 sats, increasing shortness of breath, patient requiring nonrebreather mask. Patient noted with fluid overload, BiPAP attempted in the ICU, metabolic acidosis--------->> later intubated for hypoxemic respiratory failure * Ongoing diuresis, urine output good, still ongoing concern for continued acute renal insufficiency patient continues to have worsening creatinine level. Studies not consistent with autoimmune-related acute glomerulonephritis. Urology does not feel is obstructive uropathy. Definitive diagnosis for atheroembolic renal disease would be by kidney biopsy-however would not alter clinical management, patient at this time unstable. Critical care notes discussion with who is requesting transfer to [facility]. * 09/19 stabilized, improved, extubated. Family still requesting possible transfer to [facility]; where his known technical instructor and oncologist are--medical team discussing possible transfer * 09/20 again w worsening resp status , on NRB CXR= worsening consolidation right upper, middle and lower lobes. Nephrology again consulted for 2nd opinion 09/21, not stable for renal bx. per nephrology "Since he has hypoxia with diffuse pulmonary infiltrates, obtain anti-GBM antibody(unlikely in the absence of hematuria and proteinuria in the UA), also obtain hepatitis profile and cryoglobulin (also these are unlikely in the presence of normal complements). Clinically he does not appear to be in fluid overload. Withdraw diuretics: Supportive care, possible intubation. Avoid nephrotoxic agents. " * 09/22 ID consulted patient with bilateral lung infiltrates infiltrates probable pneumonia, mild leukocytosis WBC 13.4, CHF likely components of bilateral pulmonary infiltrates--> continue Zosyn, aztreonam, follow cultures. * 09/24 extubated-tolerating nasal cannula, passed speech therapy evaluation * 09/26 on and off of BiPAP as needed. Fatigues easily, frustrated with BiPAP. No chest pain. Pulmonology following. Plan for transfer out of ICU. * 09/27 again with worsening respiratory status. Requiring partial nonrebreather. More lethargic in the a.m. ABGs, CXR ordered. Patient now with to intubation/extubation episodes during this admission. Palliative care consulted to assist with clarification of goals of treatment. Sputum culture negative 48 hours, CXR worsening bilateral airspace disease. Renal function slightly improved BUN 80/creatinine 2.59, GFR 24. Patient seen in room, she will visit with Jaskaran DELGADO. Patient initially seen with BiPAP mask on, nursing and RT assisted to change to partial nonrebreather to facilitate conversation. Patient observed to be visibly short of breath especially with conversation, when he removes nonrebreather mask quickly desaturates to the 80s. Patient is alert, mostly oriented though forgetful and at times pauses to search for words, complete thoughts. Has some limited insight to hospitalization and hospital course however does not seem to have full insight as he commented that his "kidneys were doing wonderful," and that he was hoping to get home in the next day or 2, and that once he's home he will be able to recover much better. Endorses shortness of breath, chronic this admission though not particularly bad at this time. Endorses some anxiety at times especially with BiPAP. Denies pain, nausea , GI complaints. Function/Cognitive Trajectory Prior to most recent admission ambulatory independent. Discharged following CABG with home health, still ambulatory and fairly independent at that time. This admission requiring walker per PT. Patient verbalizing feeling weaker, fatigue. Review of Systems ROS Limitations: Other (forgetful at times) Constitutional: COMPLAINS OF: Generalized weakness Ears, nose, mouth, throat: COMPLAINS OF: Throat pain (dryness), DENIES: Oral lesions Respiratory: COMPLAINS OF: Cough Cardiovascular: DENIES: Chest pain (none currently, hx of), Palpitations, Syncope, Lower Extremity Edema Gastrointestinal: COMPLAINS OF: Constipation, DENIES: Nausea, Vomiting, Difficulty Swallowing Genitourinary: DENIES: Hematuria Musculoskeletal: DENIES: Joint pain, Neck pain Neurologic: COMPLAINS OF: Localized weakness (LT upper onset [employer]), DENIES: Headache, Speech Problems Psychiatric: COMPLAINS OF: Anxiety (mild/intermittent), DENIES: Depression Past Family Social History Coded Allergies: atorvastatin (Verified Allergy, Severe, back pain and chest pain, 09/21/16) PATIENT REPORTS HE CAN NOT TAKE ANY STATINS PERIOD. HE LOSES USE OF HIS LEGS pantoprazole (Verified Allergy, Severe, INTERSTITIAL NEPHRITIS, 09/25/16) pravastatin (Verified Allergy, Severe, 09/21/16) PATIENT REPORTS HE CAN NOT TAKE ANY STATINS PERIOD. HE LOSES USE OF HIS LEGS simvastatin (Verified Allergy, Severe, body aches, 09/21/16) PATIENT REPORTS HE CAN NOT TAKE ANY STATINS PERIOD. HE LOSES USE OF HIS LEGS Past Medical History CVA while in surgery 10 days ago, with some left sided weakness HTN CAD Afib with ablation Hypertension Hyperlipidemia Colon cancer status post resection 1999 AAA status post repair 2008 [facility] Chest aortic aneurysm ascending about 5 cm per the patient Bladder Cancer . Past Surgical History CABG 08/26/16 Ablation for Afib Colectomy Carotid endarterectomy Bladder cancer removal 2015 Prior pacemaker , status post removal due to pocket infection 2010 . Reported Medications Active Thera M Plus (Multivitamins/Minerals Therapeutic) 1 Tab 1 Tab PO DAILY Metoprolol Tartrate 25 Mg Tab 12.5 Mg PO BID Dok (Docusate Sodium) 100 Mg Cap 100 Mg PO BID PRN Eliquis (Apixaban) 2.5 Mg Tab 2.5 Mg PO BID Oxycodone (Oxycodone HCl) 5 Mg Cap Mg PO Q4H PRN Aspirin 325 Mg Tab 325 Mg PO ONCE Aspirin 81 Mg Chew 81 Mg CHEW DAILY Xanax (Alprazolam) 0.25 Mg Tab 0.25 Mg PO Q6H PRN . Current Medications Medications (Trade) Dose Ordered Sig/Awilda Route Start Time Stop Time Status Last Admin (NS Flush) 2 ml UNSCH PRN IV FLUSH 09/09/16 00:45 (NS Flush) 2 ml BID IV FLUSH 09/09/16 09:00 09/27/16 09:00 (Narcan Inj) 0.4 mg UNSCH PRN IV 09/09/16 00:45 (Xanax) 0.25 mg Q6H PRN PO 09/09/16 13:45 09/27/16 12:53 (Pill Splitter) 1 ea UNSCH PRN OTHER 09/09/16 14:00 (Eliquis) 5 mg BID PO 09/10/16 09:00 09/27/16 09:33 (Catapres) 0.1 mg Q6H PRN PO 09/11/16 14:30 09/19/16 23:02 (Lopressor Inj) 5 mg Q2HR PRN IV PUSH 09/16/16 14:00 09/26/16 05:00 (Apresoline Inj) 10 mg Q6HR PRN IV PUSH 09/16/16 12:45 09/27/16 01:50 (Peridex 0.12% Liq) 15 ml BID@08,20 MT 09/16/16 20:00 09/26/16 20:00 (Racepinephrine 2.25% Neb) 0.5 ml Q1HR NEB PRN NEB 09/17/16 17:15 09/17/16 18:02 (Anne-Colace) 1 tab BID PO 09/19/16 21:00 09/26/16 09:00 (Milk Of Magnesia Liq) 30 ml Q12H PRN PO 09/19/16 13:30 09/19/16 13:30 (Senokot) 17.2 mg Q12H PRN PO 09/19/16 13:30 (Dulcolax Supp) 10 mg DAILY PRN RECTAL 09/19/16 13:30 (Lactulose Liq) 30 ml DAILY PRN PO 09/19/16 13:30 (Trandate) 100 mg TID PO 09/20/16 13:00 09/27/16 12:53 (Pepcid) 10 mg DAILY PO 09/21/16 09:00 09/27/16 09:34 (Duoneb Neb) 1 ampule QID NEB NEB 09/21/16 12:00 09/27/16 11:30 (Albuterol Neb) 2.5 mg Q2HR NEB PRN NEB 09/21/16 12:00 09/25/16 00:15 (Phoslo) 667 mg TID PO 09/21/16 18:00 09/27/16 12:53 Piperacillin Sod/ Tazobactam Sod 50 ml @ 100 mls/hr Q8H IV 09/21/16 18:00 09/27/16 11:24 (Peridex 0.12% Liq) 15 ml BID@08,20 MT 09/22/16 20:00 (SoluMEDROL INJ) 35 mg DAILY IV 09/23/16 15:00 09/27/16 10:07 Amiodarone HCl 450 mg/Dextrose 250 ml @ 0 mls/hr CONTINUOUS IV 09/24/16 15:32 09/27/16 02:00 (Lasix Inj) 20 mg BID@09,18 IV PUSH 09/27/16 18:00 Family History Family history of coronary artery disease . Substance Use Tobacco: Quit smoking 19 years ago Alcohol: Rare Prescription med abuse: Denies Psychosocial History , 2 adult children. Retired from the [employer]. Retired since 1979. Has lived in [place] since 1948. to his for 60+ years. . Spiritual/Cultural Factors Cam[place]onian Anglican open to spiritual support . Living Will: Never completed Health Care Surrogate: Never completed Today's verbally stated goals: Wants to get better and go home and take care of his Physical Exam Vital Signs Date Time Temp Pulse Resp B/P (MAP) Pulse Ox O2 Delivery O2 Flow Rate FiO2 09/27/16 06:00 84 09/27/16 04:50 93 Partial Rebreather 13.00 09/27/16 04:04 93 50 09/27/16 04:00 97.8 80 22 136/69 (91) 92 09/27/16 04:00 82 09/27/16 02:00 74 09/27/16 02:00 68 125/60 09/27/16 00:18 93 50 09/27/16 00:00 74 09/27/16 00:00 98.0 75 25 145/72 (96) 90 09/26/16 22:00 73 09/26/16 20:00 75 09/26/16 20:00 98.0 75 25 135/65 (88) 86 09/26/16 19:41 92 Nasal Cannula 6.00 09/26/16 19:00 97 Simple Mask 8.00 09/26/16 18:00 74 09/26/16 16:00 98.1 76 23 152/74 (100) 95 09/26/16 16:00 76 Exam CONSTITUTIONAL/GENERAL: This is an adequately nourished patient, is appreciative of breath with conversation, cooperative, pleasant TUBES/LINES/DRAINS: Peripheral IV left upper extremity, right subclavian central line, Franco catheter, SCDs, partial nonrebreather/BiPAP mask SKIN: No jaundice, rashes, or lesions. Few areas Ecchymoses on upper extremities. No wounds seen anteriorly. Skin temperature appropriate. HEAD: Atraumatic. Normocephalic. EYES: Pupils equal and round and reactive. Extraocular motions intact. No scleral icterus. No injection or drainage. Fundi not examined. ENT: Slightly hard of hearing. Nose without bleeding or purulent drainage. Throat without visible erythema, exudates, masses, or lesions. NECK: Trachea midline. Supple, nontender. No palpable thyroid enlargement or nodularity. CARDIOVASCULAR: Regular rate and rhythm without murmurs.No JVD. Peripheral pulses symmetric. Trace edema to hands. RESPIRATORY/CHEST: Symmetric, unlabored respirations. Mildly tachypneic, on partial nonrebreather. Diminished air movement throughout, expiratory wheezes to left. GASTROINTESTINAL: Abdomen soft, non-tender, nondistended. No hepato-splenomegaly , or palpable masses. No guarding. Bowel sounds present. GENITOURINARY: Without palpable bladder distension. Franco catheter in place clear dark yellow urine. MUSCULOSKELETAL: Extremities without clubbing, cyanosis. Trace edema hands. No joint tenderness or effusion noted. No mottling or clubbing. LYMPHATICS: No palpable cervical or supraclavicular adenopathy. NEUROLOGICAL: Awake and alert. Oriented timesx 2-3 , forgetful at times. Pauses to search for words. Moves all 4 extremities. Left upper slightly weaker than right upper. Lower extremities strength appears equal PSYCHIATRIC: No obvious anxiety/depression. no apparent hallucinations or other psychotic thought process. Diagnostic Tests Laboratory Laboratory Tests Test 09/25/16 04:09 09/26/16 05:20 09/27/16 03:10 09/27/16 12:00 White Blood Count 13.2 TH/MM3 (4.0-11.0) 12.7 TH/MM3 (4.0-11.0) Red Blood Count 2.98 MIL/MM3 (4.50-5.90) 3.00 MIL/MM3 (4.50-5.90) Hemoglobin 8.9 GM/DL (13.0-17.0) 8.8 GM/DL (13.0-17.0) Hematocrit 28.0 % (39.0-51.0) 27.9 % (39.0-51.0) Mean Corpuscular Volume 94.1 FL (80.0-100.0) 92.7 FL (80.0-100.0) Mean Corpuscular Hemoglobin 30.0 PG (27.0-34.0) 29.3 PG (27.0-34.0) Mean Corpuscular Hemoglobin Concent 31.9 % (32.0-36.0) 31.6 % (32.0-36.0) Red Cell Distribution Width 14.7 % (11.6-17.2) 14.5 % (11.6-17.2) Platelet Count 460 TH/MM3 (150-450) 465 TH/MM3 (150-450) Mean Platelet Volume 7.8 FL (7.0-11.0) 7.9 FL (7.0-11.0) Neutrophils (%) (Auto) 76.0 % (16.0-70.0) 74.3 % (16.0-70.0) Lymphocytes (%) (Auto) 13.4 % (9.0-44.0) 13.9 % (9.0-44.0) Monocytes (%) (Auto) 7.9 % (0.0-8.0) 8.7 % (0.0-8.0) Eosinophils (%) (Auto) 1.8 % (0.0-4.0) 2.7 % (0.0-4.0) Basophils (%) (Auto) 0.9 % (0.0-2.0) 0.4 % (0.0-2.0) Neutrophils # (Auto) 10.0 TH/MM3 (1.8-7.7) 9.5 TH/MM3 (1.8-7.7) Lymphocytes # (Auto) 1.8 TH/MM3 (1.0-4.8) 1.8 TH/MM3 (1.0-4.8) Monocytes # (Auto) 1.0 TH/MM3 (0-0.9) 1.1 TH/MM3 (0-0.9) Eosinophils # (Auto) 0.2 TH/MM3 (0-0.4) 0.3 TH/MM3 (0-0.4) Basophils # (Auto) 0.1 TH/MM3 (0-0.2) 0.1 TH/MM3 (0-0.2) CBC Comment DIFF FINAL AUTO DIFF Differential Comment FINAL DIFF MANUAL Blood Urea Nitrogen 106 MG/DL (7-18) 89 MG/DL (7-18) 80 MG/DL (7-18) Creatinine 2.90 MG/DL (0.60-1.30) 2.69 MG/DL (0.60-1.30) 2.59 MG/DL (0.60-1.30) Random Glucose 99 MG/DL (74-106) 98 MG/DL (74-106) 95 MG/DL (74-106) Albumin 2.2 GM/DL (3.4-5.0) Calcium Level 8.6 MG/DL (8.5-10.1) 9.0 MG/DL (8.5-10.1) 9.1 MG/DL (8.5-10.1) Phosphorus Level 4.4 MG/DL (2.5-4.9) 3.5 MG/DL (2.5-4.9) 3.7 MG/DL (2.5-4.9) Magnesium Level 2.6 MG/DL (1.5-2.5) 2.4 MG/DL (1.5-2.5) Sodium Level 136 MEQ/L (136-145) 138 MEQ/L (136-145) 136 MEQ/L (136-145) Potassium Level 4.2 MEQ/L (3.5-5.1) 3.9 MEQ/L (3.5-5.1) 4.1 MEQ/L (3.5-5.1) Chloride Level 97 MEQ/L (98-107) 98 MEQ/L (98-107) 98 MEQ/L (98-107) Carbon Dioxide Level 32.8 MEQ/L (21.0-32.0) 29.2 MEQ/L (21.0-32.0) 29.2 MEQ/L (21.0-32.0) Anion Gap 6 MEQ/L (5-15) 11 MEQ/L (5-15) 9 MEQ/L (5-15) Estimat Glomerular Filtration Rate 21 ML/MIN (>89) 23 ML/MIN (>89) 24 ML/MIN (>89) Differential Total Cells Counted 100 Neutrophils % (Manual) 77 % (16-70) Band Neutrophils % 1 % (0-6) Lymphocytes % 11 % (9-44) Monocytes % 6 % (0-8) Eosinophils % 3 % (0-4) Neutrophils # (Manual) 10.2 TH/MM3 (1.8-7.7) Myelocytes 2 % (0-0) Platelet Estimate HIGH (NORMAL) Platelet Morphology Comment NORMAL (NORMAL) Red Cell Morphology Comment NORMAL (NORMAL) Blood Gas Puncture Site LT RADIAL Blood Gas Patient Temperature 98.6 Blood Gas HCO3 26 mmol/L (22-26) Blood Gas Base Excess 2.5 mmol/L (-2-2) Blood Gas Oxygen Saturation 96 % (90-100) Arterial Blood pH 7.47 (7.380-7.420) Arterial Blood Partial Pressure CO2 36 mmHg (38-42) Arterial Blood Partial Pressure O2 99 mmHg (61-120) Arterial Blood Oxygen Content 12.5 Vol % (12.0-20.0) Arterial Blood Carboxyhemoglobin 2.0 % (0-4) Arterial Blood Methemoglobin 0.7 % (0-2) Blood Gas Hemoglobin 9.2 G/DL (12.0-16.0) Oxygen Delivery Device PRBR Blood Gas Liter Flow 12 L/M Result Diagram: 09/26/16 0520 09/27/16 0310 Imaging Last Impressions Chest X-Ray 09/23/16 0000 Signed Impressions: Service Date/Time: September 08:16 - CONCLUSION: 1. Multiple tubes and lines are in good positions. 2. Bilateral pulmonary infiltrates are unchanged compared to the previous examination. Jeffrey Mohan MD Chest CT 09/21/16 0000 Signed Impressions: Service Date/Time: Wednesday, September 21, 2016 22:34 - CONCLUSION: 1. Diffuse airspace opacities with ground glass appearance throughout both lungs. 2. Moderate-sized bilateral pleural effusions. 3. Ectatic and dilated descending thoracic aorta, measuring up to 5.[address] Martinez MD Head Magnetic Resonance Angiography 09/10/16 1028 Signed Impressions: Service Date/Time: Saturday, September 10, 2016 10:57 - CONCLUSION: 1. Unremarkable MRA examination without evidence for large vessel occlusion, aneurysm, or vascular malformation. Richardson Haney MD Brain MRI 09/10/16 1028 Signed Impressions: Service Date/Time: Saturday, September 10, 2016 10:57 - CONCLUSION: 1. Findings most consistent with new embolic infarcts involving both the anterior and posterior circulation. Richardson Haney MD Carotid Artery Ultrasound 09/09/16 1028 Signed Impressions: Service Date/Time: September 10:43 - CONCLUSION: 1. Moderate visible plaque without hemodynamically significant stenosis identified. No significant change from August 25. Amado Crain MD Renal Ultrasound 09/09/16 0000 Signed Impressions: Service Date/Time: September 15:41 - CONCLUSION: 1. Cortical atrophy with small bilateral renal cysts. No hydronephrosis. Amado Crain MD Head CT 09/08/16 2251 Signed Impressions: Service Date/Time: Thursday, September 08, 2016 23:41 - CONCLUSION: Stable noncontrast CT with no evidence of hemorrhage or acute infarction. Atrophy and chronic small vessel splenic changes remain. Sanya Cavazos MD Procedures . Patient/Family Conference Present at Family Conference: pt Family Conference Location: Bedside Issues Discussed: Met with patient at bedside approximately 20-25 minutes Discussion included the following * Palliative care role, purpose, approach * Additional medical, psychosocial, and spiritual history * Patients general health, functional status, leading up to the current hospitalization * Patient understanding of the current medical problems * Patient understanding of prognosis * Patients goals of care as best understood from advance directives and/or conversations and/or values * Current medical treatment options and benefits/burdens of those options * Likely scenarios comparing ongoing aggressive care with a transition to comfort measures only-brief review that in absence of intubation, further escalation of treatment that one would have the option of comfort measures with hospice * Questions answered to the best of my ability * Palliative care contact information provided Patient with some insight though limited. Appears to have some limited understanding of hospital course. Limited insight to overall prognosis. He is able to detail his medical history fairly well though does confuse dates at times. He seems to understand the general gravity of his multiple medical comorbidities however when discussing and relating to his current acute hospitalization he does not seem to have full insight as he comments that his kidneys are doing wonderful and he is hopeful to get home in the next day or so. He expresses aggressive goals, he wants to be able to get home and take care of his . He endorses that if his breathing were to worsen and he needed intubation again that he would agree to this. He indicates that he is recovered through many very serious medical illnesses and that he can recover from this. He indicates he would want full cardiac resuscitation in the event of a cardiac event. He wants to get back home to take care of his . Following bedside meeting with patient attempted to reach his , voicemail left, palliative will attempt to follow-up with them again tomorrow. Assessment and Plan Disease Oriented Problem List: (1) Hypoxemic respiratory failure, chronic (2) ANNY (acute kidney injury) (3) TIA (transient ischemic attack) (4) Acute kidney failure (5) Anemia (6) Hypoalbuminemia (7) Hypertension (8) CKD (chronic kidney disease) stage 3, GFR 30-59 ml/min (9) History of CVA (cerebrovascular accident) (10) Leukocytosis (11) Cerebrovascular accident (CVA) due to embolism (12) CAD (coronary artery disease) (13) Generalized weakness (14) Congestive heart failure (15) S/P CABG x 3 Symptom Scale: (1) Dyspnea (2) Anxiety (3) Malnutrition Pertinent Non-Medical Issues Psychosocial: Spiritual: [employer] [employer], open to spiritual visits Legal: Patient appears capacitated though with limited insight, given his fluctuating oxygenation status would recommend supported decision making involving his who would be the legal proxy if patient incapacitated. Ethical issues impacting care: Important Contacts Sarai Hartley [phone] / [phone] -work #. dtr Viola Escudero [phone] . Prognosis This patient was admitted for left-sided weakness, dyspnea on 09/08, possible TIA versus CVA. Status post CABG 2 weeks ago. Multiple chronic medical problems. Has had persistent acute renal failure which improved slightly and then worsens. Has had persistent pulmonary infiltrates, atelectasis, intubated/ extubated twice this admission. Given advanced age, multiple chronic medical conditions and current acute issues Iris for further complications and setbacks and potentially . Code Status: Full Code Plan Draft/pending/template * Legal decision maker: Patient capacity appears to be fluctuating, with limited insight, given his fluctuating oxygenation status would recommend supported decision making involving his who would be the legal proxy if patient incapacitated. * Goals: Met with patient today at bedside. Appears to have some limited understanding of hospital course. Limited insight to overall prognosis. He is able to detail his medical history fairly well though does confuse dates at times. He seems to understand the general gravity of his multiple medical comorbidities however when discussing and relating to his current acute hospitalization he does not seem to have full insight as he comments that his kidneys are doing wonderful and he is hopeful to get home in the next day or so. He expresses aggressive goals, he wants to be able to get home and take care of his . He endorses that if his breathing were to worsen and he needed intubation again that he would agree to this. He indicates that he is recovered through many very serious medical illnesses and that he can recover from this. He indicates he would want full cardiac resuscitation in the event of a cardiac event. He wants to get back home to take care of his . Following bedside meeting with patient attempted to reach his , voicemail left, palliative will attempt to follow-up with them again tomorrow. CODE STATUS: Full code SYMPTOMS: --dyspnea-on and off of BiPAP, ventilator intubated 2, extubated 2. Now alternating between partial nonrebreather and BiPAP. CXR worsening bilateral airspace disease --malnutrition-- albumin 2.2. On and off of BiPAP, ventilator, on and off of tube feeds during those times. Limited by mouth intake due to BiPAP. May benefit from renal appropriate nutritional supplement- Nepro??, in addition to PO food --anxiety-accompanies dyspnea, BiPAP, in and out of acute care setting and on and off mechanical vent; endorses feeling okay right now, will continue to evaluate Palliative care will continue to follow during hospital course as condition evolves, to assist patient/decision-maker with understanding of medical conditions, weighing benefits/burdens of treatment options, for clarification of goals of treatment. Additionally will assist with any symptoms of palliative concern Thank you for the opportunity to participate in the care of Mr. Hartley. Attestation To help prompt me to consider important information that might be impacting today's encounter and assessment, information from prior notes written by myself or my colleagues may have been "brought forward" into today's note. My signature on this note, however, is an attestation that I personally performed the exam, history, and/or decision-making noted today, and, unless otherwise indicated, the interactions with patient, family, and staff as well as the review of records all occurred today. I also attest that the listed assessment and stated plan reflect my best clinical judgment today based on the combination of historical information, prior notes, and today's exam/ interactions. When time spent is documented, it refers only to time spent today by the signer, or if indicated, combined time spent today by collaborating physician/nurse practitioner. Itzel Alatorre Sep 27, 2016 14:41
--- NOTE | 2016-09-27 15:06 | PD.CARD.PN ---
Subjective Subjective Remarks Now in NSR. Still on amio gtt. Recurrent respiratory insufficiency. Back on BiPAP (Elin Kwok) Objective Medications Current Medications Medications (Trade) Dose Ordered Sig/Awilda Route Start Time Stop Time Status Last Admin (NS Flush) 2 ml UNSCH PRN IV FLUSH 09/09/16 00:45 (NS Flush) 2 ml BID IV FLUSH 09/09/16 09:00 09/27/16 09:00 (Narcan Inj) 0.4 mg UNSCH PRN IV 09/09/16 00:45 (Xanax) 0.25 mg Q6H PRN PO 09/09/16 13:45 09/27/16 12:53 (Pill Splitter) 1 ea UNSCH PRN OTHER 09/09/16 14:00 (Eliquis) 5 mg BID PO 09/10/16 09:00 09/27/16 09:33 (Catapres) 0.1 mg Q6H PRN PO 09/11/16 14:30 09/19/16 23:02 (Lopressor Inj) 5 mg Q2HR PRN IV PUSH 09/16/16 14:00 09/26/16 05:00 (Apresoline Inj) 10 mg Q6HR PRN IV PUSH 09/16/16 12:45 09/27/16 01:50 (Peridex 0.12% Liq) 15 ml BID@08,20 MT 09/16/16 20:00 09/26/16 20:00 (Racepinephrine 2.25% Neb) 0.5 ml Q1HR NEB PRN NEB 09/17/16 17:15 09/17/16 18:02 (Anne-Colace) 1 tab BID PO 09/19/16 21:00 09/26/16 09:00 (Milk Of Magnesia Liq) 30 ml Q12H PRN PO 09/19/16 13:30 09/19/16 13:30 (Senokot) 17.2 mg Q12H PRN PO 09/19/16 13:30 (Dulcolax Supp) 10 mg DAILY PRN RECTAL 09/19/16 13:30 (Lactulose Liq) 30 ml DAILY PRN PO 09/19/16 13:30 (Trandate) 100 mg TID PO 09/20/16 13:00 09/27/16 12:53 (Pepcid) 10 mg DAILY PO 09/21/16 09:00 09/27/16 09:34 (Duoneb Neb) 1 ampule QID NEB NEB 09/21/16 12:00 09/27/16 11:30 (Albuterol Neb) 2.5 mg Q2HR NEB PRN NEB 09/21/16 12:00 09/25/16 00:15 (Phoslo) 667 mg TID PO 09/21/16 18:00 09/27/16 12:53 Piperacillin Sod/ Tazobactam Sod 50 ml @ 100 mls/hr Q8H IV 09/21/16 18:00 09/27/16 11:24 (Peridex 0.12% Liq) 15 ml BID@08,20 MT 09/22/16 20:00 (SoluMEDROL INJ) 35 mg DAILY IV 09/23/16 15:00 09/27/16 10:07 Amiodarone HCl 450 mg/Dextrose 250 ml @ 0 mls/hr CONTINUOUS IV 09/24/16 15:32 09/27/16 02:00 (Lasix Inj) 20 mg BID@09,18 IV PUSH 09/27/16 18:00 Vital Signs / I&O Vital Signs Date Time Temp Pulse Resp B/P (MAP) Pulse Ox O2 Delivery O2 Flow Rate FiO2 09/27/16 06:00 84 09/27/16 04:50 93 Partial Rebreather 13.00 09/27/16 04:04 93 50 09/27/16 04:00 97.8 80 22 136/69 (91) 92 09/27/16 04:00 82 09/27/16 02:00 74 09/27/16 02:00 68 125/60 09/27/16 00:18 93 50 09/27/16 00:00 74 09/27/16 00:00 98.0 75 25 145/72 (96) 90 09/26/16 22:00 73 09/26/16 20:00 75 09/26/16 20:00 98.0 75 25 135/65 (88) 86 09/26/16 19:41 92 Nasal Cannula 6.00 09/26/16 19:00 97 Simple Mask 8.00 09/26/16 18:00 74 8/20/17 16:00 98.1 76 23 152/74 (100) 95 09/26/16 16:00 76 I/O 09/26/16 09/26/16 09/26/16 09/27/16 09/27/16 09/27/16 07:00 15:00 23:00 07:00 15:00 23:00 Intake Total 864 ml 0 ml 896 ml 417 ml Output Total 800 ml 1100 ml 1200 ml Balance 64 ml 0 ml -204 ml -783 ml Intake Oral 620 ml 480 ml 240 ml IV Total 244 ml 0 ml 416 ml 177 ml Output Urine Total 800 ml 1100 ml 1200 ml # Bowel Movements 0 2 0 Physical Exam GENERAL: Elderly male, a bedside SKIN: Warm and dry. HEAD: Normocephalic. EYES: No scleral icterus. No injection or drainage. NECK: Supple, trachea midline CARDIOVASCULAR: Midline incision healing well, reg rate and rhythm RESPIRATORY: on BIPAP GASTROINTESTINAL: Abdomen soft, non-tender, nondistended. MUSCULOSKELETAL: No cyanosis, no BLE edema BACK: Nontender without obvious deformity. Laboratory Laboratory Tests Test 09/27/16 03:10 09/27/16 12:00 Blood Urea Nitrogen 80 MG/DL Creatinine 2.59 MG/DL Random Glucose 95 MG/DL Calcium Level 9.1 MG/DL Sodium Level 136 MEQ/L Potassium Level 4.1 MEQ/L Chloride Level 98 MEQ/L Carbon Dioxide Level 29.2 MEQ/L Anion Gap 9 MEQ/L Estimat Glomerular Filtration Rate 24 ML/MIN Phosphorus Level 3.7 MG/DL Blood Gas Puncture Site LT RADIAL Blood Gas Patient Temperature 98.6 Blood Gas HCO3 26 mmol/L Blood Gas Base Excess 2.5 mmol/L Blood Gas Oxygen Saturation 96 % Arterial Blood pH 7.47 Arterial Blood Partial Pressure CO2 36 mmHg Arterial Blood Partial Pressure O2 99 mmHg Arterial Blood Oxygen Content 12.5 Vol % Arterial Blood Carboxyhemoglobin 2.0 % Arterial Blood Methemoglobin 0.7 % Blood Gas Hemoglobin 9.2 G/DL Oxygen Delivery Device PRBR Blood Gas Liter Flow 12 L/M (Elin Kwok) Assessment and Plan Assessment and Plan Recurrent acute hypoxic respiratory failure requiring ventilator support. Now with VAP/HCAP and recent fluid overload. Back on BIPAP Chest pain, troponin elevated likely due to CKD and had recent NSTEMI. Atrial fibrillation with CVA and TIAs. Patient was on subtherapeutic Eliquis prior to admission. Now on Eliquis 5 mg BID. 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 Etiology not completely clear PLAN: diuresis IV Stop amio gtt, start amio 200 mg po Continue Eliquis and BB. Intolerant of metoprolol due to hallucinations. Will hold off resuming ASA for now . He has been intolerant of multiple statins in the past. Will consider resuming therapy once the patient stabilizes. SBP goal < 130 DBP goal < 90. Continue Labetalol with hold parameters The patient was seen and evaluated by Dr. Moran who completed a [id number] encounter, completed a physical exam and participated in evaluation and management. (Elin Kwok) Assessment and Plan The exam, history, and the medical decision-making described in the above note were completed with the assistance of the mid-level provider. I reviewed and agree with the findings presented. I attest that I had a [id number] encounter with the patient on the same day, and personally performed and documented my assessment and findings in the medical record. Back in , still having respiratory problems, discussed with Mrs Hartley in detail (Suellen Moran MD) Elin Kwok Sep 27, 2016 15:06 Suellen Moran MD Sep 27, 2016 19:04
[2016-09-27 15:52] LABS: CRYOCRIT NONE DETECTED (NONE DETECTED)
[2016-09-27] MEDS: FUROSEMIDE 20 MG/2 ML VIAL IV PUSH SCH (17:39)
--- NOTE | 2016-09-27 17:48 | HHI.IDPN ---
Note Infectious Disease Note Patient on 10L O2 VIA NRM. Sats 90S. Awake. Was noted to be somewhat confused earlier. Afebrile. No cough or sputum. PAST MEDICAL HISTORY 1. Coronary artery disease. 2. History of atrial fibrillation. 3. History of aortic aneurysm. 4. Bladder cancer treated with cystectomy. 5. Coronary artery bypass graft surgery. 6. Colon cancer history. 7. Peripheral vascular disease. 8. Hypertension. 9. History of transurethral resection of bladder tumor. 10.History of abdominal aortic aneurysm repair. ALLERGIES 1. SIMVASTATIN. 2. PRAVASTATIN. 3. ATORVASTATIN. ANTIBIOTICS 1. Piperacillin/tazobactam. 2. Aztreonam. 3. Vanco pharmacy dosing. OBJECTIVE: Vital Signs Date Time Temp Pulse Resp B/P (MAP) Pulse Ox O2 Delivery O2 Flow Rate FiO2 09/27/16 17:09 92 Partial Rebreather 12.00 09/27/16 14:00 74 09/27/16 12:00 98.8 79 28 131/64 (86) 97 09/27/16 12:00 79 09/27/16 10:00 88 09/27/16 08:00 84 09/27/16 08:00 98.4 84 28 133/67 (89) 92 09/27/16 07:00 88 Partial Non-Rebreather 11.00 09/27/16 06:00 84 09/27/16 04:50 93 Partial Rebreather 13.00 09/27/16 04:04 93 50 09/27/16 04:00 97.8 80 22 136/69 (91) 92 09/27/16 04:00 82 09/27/16 02:00 74 09/27/16 02:00 68 125/60 09/27/16 00:18 93 50 09/27/16 00:00 74 09/27/16 00:00 98.0 75 25 145/72 (96) 90 09/26/16 22:00 73 09/26/16 20:00 75 09/26/16 20:00 98.0 75 25 135/65 (88) 86 09/26/16 19:41 92 Nasal Cannula 6.00 09/26/16 19:00 97 Simple Mask 8.00 09/26/16 18:00 74 09/27/16 09/27/16 09/28/16 15:00 23:00 07:00 Intake Total 50 ml 229 ml Balance 50 ml 229 ml IV Total 50 ml 229 ml Laboratory Tests Test 09/26/16 05:20 White Blood Count 12.7 TH/MM3 Red Blood Count 3.00 MIL/MM3 Hemoglobin 8.8 GM/DL Hematocrit 27.9 % Mean Corpuscular Volume 92.7 FL Mean Corpuscular Hemoglobin 29.3 PG Mean Corpuscular Hemoglobin Concent 31.6 % Red Cell Distribution Width 14.5 % Platelet Count 465 TH/MM3 Mean Platelet Volume 7.9 FL Neutrophils (%) (Auto) 74.3 % Lymphocytes (%) (Auto) 13.9 % Monocytes (%) (Auto) 8.7 % Eosinophils (%) (Auto) 2.7 % Basophils (%) (Auto) 0.4 % Neutrophils # (Auto) 9.5 TH/MM3 Lymphocytes # (Auto) 1.8 TH/MM3 Monocytes # (Auto) 1.1 TH/MM3 Eosinophils # (Auto) 0.3 TH/MM3 Basophils # (Auto) 0.1 TH/MM3 CBC Comment AUTO DIFF Differential Total Cells Counted 100 Neutrophils % (Manual) 77 % Band Neutrophils % 1 % Lymphocytes % 11 % Monocytes % 6 % Eosinophils % 3 % Neutrophils # (Manual) 10.2 TH/MM3 Myelocytes 2 % Differential Comment FINAL DIFF MANUAL Platelet Estimate HIGH Platelet Morphology Comment NORMAL Red Cell Morphology Comment NORMAL Laboratory Tests Test 09/26/16 05:20 09/27/16 03:10 Blood Urea Nitrogen 89 MG/DL 80 MG/DL Creatinine 2.69 MG/DL 2.59 MG/DL Random Glucose 98 MG/DL 95 MG/DL Calcium Level 9.0 MG/DL 9.1 MG/DL Phosphorus Level 3.5 MG/DL 3.7 MG/DL Magnesium Level 2.4 MG/DL Sodium Level 138 MEQ/L 136 MEQ/L Potassium Level 3.9 MEQ/L 4.1 MEQ/L Chloride Level 98 MEQ/L 98 MEQ/L Carbon Dioxide Level 29.2 MEQ/L 29.2 MEQ/L Anion Gap 11 MEQ/L 9 MEQ/L Estimat Glomerular Filtration Rate 23 ML/MIN 24 ML/MIN IMAGING: Chest X-Ray 09/23/16 0000 Signed Impressions: Service Date/Time: September 08:16 - CONCLUSION: 1. Multiple tubes and lines are in good positions. 2. Bilateral pulmonary infiltrates are unchanged compared to the previous examination. Jeffrey Mohan MD Chest CT 09/21/16 0000 Signed Impressions: Service Date/Time: Wednesday, September 21, 2016 22:34 - CONCLUSION: 1. Diffuse airspace opacities with ground glass appearance throughout both lungs. 2. Moderate-sized bilateral pleural effusions. 3. Ectatic and dilated descending thoracic aorta, measuring up to 5.[address] Martinez MD Head Magnetic Resonance Angiography 09/10/16 1028 Signed Impressions: Service Date/Time: Saturday, September 10, 2016 10:57 - CONCLUSION: 1. Unremarkable MRA examination without evidence for large vessel occlusion, aneurysm, or vascular malformation. Richardson Haney MD Brain MRI 09/10/16 1028 Signed Impressions: Service Date/Time: Saturday, September 10, 2016 10:57 - CONCLUSION: 1. Findings most consistent with new embolic infarcts involving both the anterior and posterior circulation. Richardson Haney MD Carotid Artery Ultrasound 09/09/16 1028 Signed Impressions: Service Date/Time: September 10:43 - CONCLUSION: 1. Moderate visible plaque without hemodynamically significant stenosis identified. No significant change from August 25. Amado Crain MD Renal Ultrasound 09/09/16 0000 Signed Impressions: Service Date/Time: September 15:41 - CONCLUSION: 1. Cortical atrophy with small bilateral renal cysts. No hydronephrosis. Amado Crain MD Head CT 09/08/16 2251 Signed Impressions: Service Date/Time: Thursday, September 08, 2016 23:41 - CONCLUSION: Stable noncontrast CT with no evidence of hemorrhage or acute infarction. Atrophy and chronic small vessel splenic changes remain. Sanya Cavazos MD PHYSICAL EXAMINATION GENERAL: No acute distress. HEENT: Sclera is non-icteric. Oropharynx mucosa moist. NECK: No swelling or adenopathy. LUNGS: Bilateral rhonchi. Good air movement. HEART: [id number], No audible murmur, rub or gallop. ABDOMEN: Bowel sounds present. Soft. No tenderness. EXTREMITIES: No clubbing, no cyanosis. no edema. SKIN: No diffuse rash. NEUROLOGIC: Non focal. PSYCH: Calm and cooperative. IMPRESSION 1. Acute respiratory failure. 2. Bilateral lung infiltrates, probable pneumonia. CXR worse. 3. Mild leukocytosis. RECOMMENDATIONS Stop piperacillin/tazobactam. Start PO Zyvox. Start PO Levaquin. Sae Nova MD Sep 27, 2016 17:48
[2016-09-27] MEDS ORDERED: PIPERACIL-TAZO 2.25 GM PREMIX 50 ML IV SCH (18:00)
[2016-09-27] MEDS ORDERED: LEVOFLOXACIN 250 MG TAB PO SCH (18:00)
[2016-09-27] MEDS: LEVOFLOXACIN 750 MG TAB PO SCH (20:48)
[2016-09-27] MEDS: LINEZOLID 600 MG TAB PO SCH (20:48)
[2016-09-28] VITALS (18 sets, daily range): BP systolic 111–144; BP diastolic 62–72; PULSE 74–90; RESP 24–35; TEMP 97.3–98.8; O2SAT 89–97
[2016-09-28 05:21] LABS: AUTOMATED NEUTROPHIL # 19.4 TH/MM3 (1.8-7.7); BASOPHIL # 0.1 TH/MM3 (0-0.2); BASOPHIL % 0.4 % (0.0-2.0); EOSINOPHIL # 0.3 TH/MM3 (0-0.4); EOSINOPHIL % 1.4 % (0.0-4.0); HEMATOCRIT 26.2 % (39.0-51.0); LYMPH % 5.6 % (9.0-44.0); LYMPHOCYTE # 1.2 TH/MM3 (1.0-4.8); MEAN CELL VOLUME 92.8 FL (80.0-100.0); MEAN CORPUSCULAR HEMOGLOBIN 30.1 PG (27.0-34.0); MEAN CORPUSCULAR HGB CONC 32.5 % (32.0-36.0); MONO % 3.5 % (0.0-8.0); NEUT % 89.1 % (16.0-70.0); PLATELET COUNT 466 TH/MM3 (150-450); RED BLOOD COUNT 2.83 MIL/MM3 (4.50-5.90); WHITE BLOOD COUNT 21.7 TH/MM3 (4.0-11.0)
[2016-09-28 05:22] LABS: HEMO FLAGS AUTO DIFF
[2016-09-28 05:45] LABS: BICARBONATE 27.9 MEQ/L (21.0-32.0); POTASSIUM 4.2 MEQ/L (3.5-5.1)
[2016-09-28 06:36] LABS: BANDS 1 % (0-6); EOSINOPHILS 3 % (0-4); NEUTROPHIL # MANUAL DIFF 18.2 TH/MM3 (1.8-7.7); PLATELET ESTIMATE SMEAR HIGH (NORMAL); PLATELET MORPHOLOGY ENLARGED (NORMAL); POLYS (SEG NEUTROPHILS) 83 % (16-70); SCAN/DIFF FINAL DIFF MANUAL; WBC DIFF SAMPLE 100
[2016-09-28] MEDS: CHLORHEXIDINE 0.12% (ORAL KIT) 15 ML CUP MT SCH ×4 (08:00→20:00)
[2016-09-28] MEDS: RESP: ALBUTEROL 2.5 MG/IPRATROPIUM 0.5 MG NEB (SCH) NEB ×2 (08:07→12:00)
[2016-09-28] MEDS: SODIUM CHLORIDE 0.9% FLUSH 10 ML FLUSH IV FLUSH SCH ×2 (09:00→20:50)
[2016-09-28] MEDS: methylPREDNISolone SOD SUCC 40 MG/1 ML VIAL IV SCH (09:11)
[2016-09-28] MEDS: FUROSEMIDE 20 MG/2 ML VIAL IV PUSH SCH (09:12)
[2016-09-28] MEDS: LINEZOLID 600 MG TAB PO SCH ×2 (09:13→20:51)
[2016-09-28] MEDS: APIXABAN 5 MG TABLET PO SCH ×2 (09:13→20:50)
[2016-09-28] MEDS: FAMOTIDINE 20 MG TAB PO SCH (09:13)
[2016-09-28] MEDS: LABETALOL HCL 100 MG TAB PO SCH ×3 (09:13→17:22)
[2016-09-28] MEDS: DOCUSATE SODIUM 50 MG/SENNA 8.6 MG TAB PO SCH ×2 (09:14→20:51)
[2016-09-28] MEDS: CALCIUM ACETATE 667 MG CAP PO SCH ×3 (09:14→17:22)
--- NOTE | 2016-09-28 11:24 | HHI.HCPN ---
Reason for visit a. To assist with evaluation and management of symptoms including: dyspnea, anxiety, malnutrition b. To assist medical decision maker(s) with: better understanding of current medical conditions; weighing benefits/burdens of medical treatment options; making medical treatment decisions. Subjective/Interval History This 75 yr old patient presented to the ED on 09/08/16, with reports of right arm weakness, numbness. Symptoms lasted a few minutes and then subsided. Patient with known history of hypertension, AAA repair, colon and bladder cancer posttreatment, VA, CVA, status post CABG 10 days prior to this. Patient has been intubated and extubated twice throughout this hospitalization, his respiratory status continues to decline and he now requires alternating between a partial nonrebreather mask and BiPAP. CXR impression on 09/27: worsening bilateral airspace disease. Leukocytosis continues to worsen, WBC: 21.7 today, afebrile, ID following and managing antimicrobial therapy. Palliative care continues to follow the patient throughout this hospital course to provide support, guidance, and clarification of medical treatment. . Family/friend interactions Bedside meeting with patient and Sarai. Telephone conference with patient' s daughter Cassidy. . Advance Directives Living Will: Never completed Health Care Surrogate: Never completed Objective Vital Signs Date Time Temp Pulse Resp B/P (MAP) Pulse Ox O2 Delivery O2 Flow Rate FiO2 09/28/16 06:00 89 09/28/16 04:00 98.8 85 31 111/62 (78) 91 09/28/16 04:00 85 09/28/16 03:16 94 Partial Rebreather 10.00 09/28/16 02:00 80 09/28/16 01:45 97 Partial Rebreather 10.00 09/28/16 00:00 74 09/28/16 00:00 98.8 75 24 144/65 (91) 96 09/27/16 23:55 93 Partial Rebreather 10.00 09/27/16 22:00 77 09/27/16 21:37 97 50 09/27/16 20:11 93 Partial Rebreather 10.00 09/27/16 20:00 98.8 77 21 112/56 (74) 93 09/27/16 19:00 92 Partial Non-Rebreather 11.00 09/27/16 18:00 78 09/27/16 17:09 92 Partial Rebreather 12.00 09/27/16 16:00 74 09/27/16 16:00 97.3 74 28 117/55 (75) 97 09/27/16 14:00 74 09/27/16 12:00 98.8 79 28 131/64 (86) 97 09/27/16 12:00 79 Intake & Output 09/28/16 09/28/16 07:00 19:00 Intake Total 120 ml Output Total 601 ml Balance -481 ml Intake Oral 120 ml Output Urine Total 600 ml Stool Total 1 ml . Physical Exam CONSTITUTIONAL/GENERAL: This is a critically ill elderly male patient, is appreciative of breath with conversation, cooperative, pleasant TUBES/LINES/DRAINS: Peripheral IV left upper extremity, right subclavian central line, Franco catheter, SCDs, partial nonrebreather/BiPAP mask SKIN: No jaundice, rashes, or lesions. Few areas Ecchymoses on upper extremities. No wounds seen anteriorly. Skin temperature appropriate. HEAD: Atraumatic. Normocephalic. EYES: Pupils equal and round and reactive. Extraocular motions intact. No scleral icterus. No injection or drainage. Fundi not examined. ENT: Slightly hard of hearing. Nose without bleeding or purulent drainage. Throat without visible erythema, exudates, masses, or lesions. NECK: Trachea midline. Supple, nontender. CARDIOVASCULAR: Regular rate and rhythm without murmurs.No JVD. Peripheral pulses symmetric. Trace edema to hands. RESPIRATORY/CHEST: Symmetric, unlabored respirations. Mildly tachypneic, on partial nonrebreather. Diminished air movement throughout, expiratory wheezes to left. GASTROINTESTINAL: Abdomen soft, non-tender, nondistended. No guarding. Bowel sounds present. GENITOURINARY: Without palpable bladder distension. Franco catheter in place clear dark yellow urine. MUSCULOSKELETAL: Extremities without clubbing, cyanosis. Trace edema hands. No joint tenderness or effusion noted. No mottling or clubbing. NEUROLOGICAL: Awake and alert. Oriented times x 2-3 , forgetful at times. Pauses to search for words. Moves all 4 extremities. Left upper slightly weaker than right upper. Lower extremities strength appears equal. PSYCHIATRIC: No obvious anxiety/depression. no apparent hallucinations or other psychotic thought process. . Diagnostic Tests Laboratory Laboratory Tests Test 09/26/16 05:20 8/21/17 03:10 09/27/16 12:00 09/28/16 05:00 White Blood Count 12.7 TH/MM3 (4.0-11.0) 21.7 TH/MM3 (4.0-11.0) Red Blood Count 3.00 MIL/MM3 (4.50-5.90) 2.83 MIL/MM3 (4.50-5.90) Hemoglobin 8.8 GM/DL (13.0-17.0) 8.5 GM/DL (13.0-17.0) Hematocrit 27.9 % (39.0-51.0) 26.2 % (39.0-51.0) Mean Corpuscular Volume 92.7 FL (80.0-100.0) 92.8 FL (80.0-100.0) Mean Corpuscular Hemoglobin 29.3 PG (27.0-34.0) 30.1 PG (27.0-34.0) Mean Corpuscular Hemoglobin Concent 31.6 % (32.0-36.0) 32.5 % (32.0-36.0) Red Cell Distribution Width 14.5 % (11.6-17.2) 15.0 % (11.6-17.2) Platelet Count 465 TH/MM3 (150-450) 466 TH/MM3 (150-450) Mean Platelet Volume 7.9 FL (7.0-11.0) 7.8 FL (7.0-11.0) Neutrophils (%) (Auto) 74.3 % (16.0-70.0) 89.1 % (16.0-70.0) Lymphocytes (%) (Auto) 13.9 % (9.0-44.0) 5.6 % (9.0-44.0) Monocytes (%) (Auto) 8.7 % (0.0-8.0) 3.5 % (0.0-8.0) Eosinophils (%) (Auto) 2.7 % (0.0-4.0) 1.4 % (0.0-4.0) Basophils (%) (Auto) 0.4 % (0.0-2.0) 0.4 % (0.0-2.0) Neutrophils # (Auto) 9.5 TH/MM3 (1.8-7.7) 19.4 TH/MM3 (1.8-7.7) Lymphocytes # (Auto) 1.8 TH/MM3 (1.0-4.8) 1.2 TH/MM3 (1.0-4.8) Monocytes # (Auto) 1.1 TH/MM3 (0-0.9) 0.8 TH/MM3 (0-0.9) Eosinophils # (Auto) 0.3 TH/MM3 (0-0.4) 0.3 TH/MM3 (0-0.4) Basophils # (Auto) 0.1 TH/MM3 (0-0.2) 0.1 TH/MM3 (0-0.2) CBC Comment AUTO DIFF AUTO DIFF Differential Total Cells Counted 100 100 Neutrophils % (Manual) 77 % (16-70) 83 % (16-70) Band Neutrophils % 1 % (0-6) 1 % (0-6) Lymphocytes % 11 % (9-44) 9 % (9-44) Monocytes % 6 % (0-8) 4 % (0-8) Eosinophils % 3 % (0-4) 3 % (0-4) Neutrophils # (Manual) 10.2 TH/MM3 (1.8-7.7) 18.2 TH/MM3 (1.8-7.7) Myelocytes 2 % (0-0) Differential Comment FINAL DIFF MANUAL FINAL DIFF MANUAL Platelet Estimate HIGH (NORMAL) HIGH (NORMAL) Platelet Morphology Comment NORMAL (NORMAL) ENLARGED (NORMAL) Red Cell Morphology Comment NORMAL (NORMAL) Blood Urea Nitrogen 89 MG/DL (7-18) 80 MG/DL (7-18) 76 MG/DL (7-18) Creatinine 2.69 MG/DL (0.60-1.30) 2.59 MG/DL (0.60-1.30) 2.81 MG/DL (0.60-1.30) Random Glucose 98 MG/DL (74-106) 95 MG/DL (74-106) 100 MG/DL (74-106) Calcium Level 9.0 MG/DL (8.5-10.1) 9.1 MG/DL (8.5-10.1) 8.8 MG/DL (8.5-10.1) Phosphorus Level 3.5 MG/DL (2.5-4.9) 3.7 MG/DL (2.5-4.9) 3.8 MG/DL (2.5-4.9) Magnesium Level 2.4 MG/DL (1.5-2.5) Sodium Level 138 MEQ/L (136-145) 136 MEQ/L (136-145) 135 MEQ/L (136-145) Potassium Level 3.9 MEQ/L (3.5-5.1) 4.1 MEQ/L (3.5-5.1) 4.2 MEQ/L (3.5-5.1) Chloride Level 98 MEQ/L (98-107) 98 MEQ/L (98-107) 96 MEQ/L (98-107) Carbon Dioxide Level 29.2 MEQ/L (21.0-32.0) 29.2 MEQ/L (21.0-32.0) 27.9 MEQ/L (21.0-32.0) Anion Gap 11 MEQ/L (5-15) 9 MEQ/L (5-15) 11 MEQ/L (5-15) Estimat Glomerular Filtration Rate 23 ML/MIN (>89) 24 ML/MIN (>89) 22 ML/MIN (>89) Blood Gas Puncture Site LT RADIAL Blood Gas Patient Temperature 98.6 Blood Gas HCO3 26 mmol/L (22-26) Blood Gas Base Excess 2.5 mmol/L (-2-2) Blood Gas Oxygen Saturation 96 % (90-100) Arterial Blood pH 7.47 (7.380-7.420) Arterial Blood Partial Pressure CO2 36 mmHg (38-42) Arterial Blood Partial Pressure O2 99 mmHg (61-120) Arterial Blood Oxygen Content 12.5 Vol % (12.0-20.0) Arterial Blood Carboxyhemoglobin 2.0 % (0-4) Arterial Blood Methemoglobin 0.7 % (0-2) Blood Gas Hemoglobin 9.2 G/DL (12.0-16.0) Oxygen Delivery Device PRBR Blood Gas Liter Flow 12 L/M Albumin 2.2 GM/DL (3.4-5.0) . Result Diagram: 09/28/16 0500 09/28/16 050 Procedures . Assessment and Plan Disease Oriented Problem List: (1) Hypoxemic respiratory failure, chronic (2) ANNY (acute kidney injury) (3) TIA (transient ischemic attack) (4) Acute kidney failure (5) Anemia (6) Hypoalbuminemia (7) Hypertension (8) CKD (chronic kidney disease) stage 3, GFR 30-59 ml/min (9) History of CVA (cerebrovascular accident) (10) Leukocytosis (11) Cerebrovascular accident (CVA) due to embolism (12) CAD (coronary artery disease) (13) Generalized weakness (14) Congestive heart failure (15) S/P CABG x 3 Symptom Scale: (1) Dyspnea (2) Anxiety (3) Malnutrition Pertinent Non-Medical Issues Psychosocial: , 2 adult children. Retired from the [employer]. Retired since 1979. Has lived in [place] since [address]. to his for 60+ years. Spiritual: Welsh Yazidi, open to spiritual visits Legal: Patient appears capacitated though with limited insight, given his fluctuating oxygenation status would recommend supported decision making involving his who would be the legal proxy if patient incapacitated. Ethical issues impacting care: None known. . Important Contacts Sarai Hartley [phone] / [phone] -work #. dtr Viola Escudero [phone] . Prognosis This patient was admitted for left-sided weakness, dyspnea on 09/08, possible TIA versus CVA. Status post CABG 2 weeks ago. Multiple chronic medical problems. Has had persistent acute renal failure which improved slightly and then worsens. Has had persistent pulmonary infiltrates, atelectasis, intubated/ extubated twice this admission. Given advanced age, multiple chronic medical conditions and current acute issues outs him at risk for further complications, setbacks, and potentially . Code Status: Full Code Plan * Legal decision maker: Patient capacity appears to be fluctuating, with limited insight, given his fluctuating oxygenation status would recommend supported decision making involving his who would be the legal proxy if patient incapacitated. * Goals: Met with patient and today at bedside. Limited insight to overall prognosis. Both and patient do not seem to grasp the severity of his illness and state "they made a mistake coming to this hospital". Goals remain aggressive. Patient again verbalizes today he would like to remain a FULL CODE and would be willing to go back on the mechanical ventilator if necessary. Telephone conference held with patient's daughter Cassidy to update her on her father's clinical status, she verbalizes a better understanding of the severity of her father's condition. Cassidy stated " I will explain this to my mother, she does not understand very well'. * Patient's requested a meeting with the embedded software manager to gain a better understanding of the patient's respiratory issues and decline. Dr. Goldberg had a telephone conversation with Dr. Encinas to update him, Dr. Encinas will meet with the patient's to further discuss the patient's respiratory status and prognosis. CODE STATUS: Full code SYMPTOMS: --dyspnea-on and off of BiPAP, ventilator intubated 2, extubated 2. Now alternating between partial nonrebreather and BiPAP. CXR 09/27 worsening bilateral airspace disease. Leukocytosis. --malnutrition- albumin 2.2. On and off of BiPAP, ventilator, on and off of tube feeds during those times. Limited by mouth intake due to BiPAP. May benefit from renal appropriate nutritional supplement. --anxiety-accompanies dyspnea, BiPAP, "claustrophobic", alprazolam 0.25mg q 6hr PRN for anxiety 3 doses in the past 24 hours. Palliative care will continue to follow during hospital course as condition evolves, to assist patient/decision-maker with understanding of medical conditions, weighing benefits/burdens of treatment options, for clarification of goals of treatment. Additionally will assist with any symptoms of palliative concern Attestation To help prompt me to consider important information that might be impacting today's encounter and assessment, information from prior notes written by myself or my colleagues may have been "brought forward" into today's note. My signature on this note, however, is an attestation that I personally performed the exam, history, and/or decision-making noted today, and, unless otherwise indicated, the interactions with patient, family, and staff as well as the review of records all occurred today. I also attest that the listed assessment and stated plan reflect my best clinical judgment today based on the combination of historical information, prior notes, and today's exam/ interactions. When time spent is documented, it refers only to time spent today by the signer, or if indicated, combined time spent today by collaborating physician/nurse practitioner. Ronit Blackwood Sep 28, 2016 11:24
--- NOTE | 2016-09-28 11:32 | HHI.PR ---
Subjective Remarks Pt somnolent but does open his eyes and speaks briefly. denies any pain, not hungry. at bedside, states pt didn't want his food and is not hungry. Discussed w RN, apparently pt wanting to go home. Objective Vitals Vital Signs Date Time Temp Pulse Resp B/P (MAP) Pulse Ox O2 Delivery O2 Flow Rate FiO2 09/28/16 06:00 89 09/28/16 04:00 98.8 85 31 111/62 (78) 91 09/28/16 04:00 85 09/28/16 03:16 94 Partial Rebreather 10.00 09/28/16 02:00 80 09/28/16 01:45 97 Partial Rebreather 10.00 09/28/16 00:00 74 09/28/16 00:00 98.8 75 24 144/65 (91) 96 09/27/16 23:55 93 Partial Rebreather 10.00 09/27/16 22:00 77 09/27/16 21:37 97 50 09/27/16 20:11 93 Partial Rebreather 10.00 09/27/16 20:00 98.8 77 21 112/56 (74) 93 09/27/16 19:00 92 Partial Non-Rebreather 11.00 09/27/16 18:00 78 09/27/16 17:09 92 Partial Rebreather 12.00 09/27/16 16:00 74 09/27/16 16:00 97.3 74 28 117/55 (75) 97 09/27/16 14:00 74 09/27/16 12:00 98.8 79 28 131/64 (86) 97 09/27/16 12:00 79 I/O 09/27/16 09/27/16 09/27/16 09/28/16 09/28/16 09/28/16 07:00 15:00 23:00 07:00 15:00 23:00 Intake Total 417 ml 50 ml 1189 ml 120 ml Output Total 1200 ml 1100 ml 601 ml Balance -783 ml 50 ml 89 ml -481 ml Intake Oral 240 ml 960 ml 120 ml IV Total 177 ml 50 ml 229 ml Output Urine Total 1200 ml 1100 ml 600 ml Stool Total 1 ml # Bowel Movements 0 2 Result Diagram: 09/28/16 0500 09/28/16 0500 Imaging Last Impressions Chest X-Ray 09/23/16 0000 Signed Impressions: Service Date/Time: September 08:16 - CONCLUSION: 1. Multiple tubes and lines are in good positions. 2. Bilateral pulmonary infiltrates are unchanged compared to the previous examination. Jeffrey Mohan MD Chest CT 09/21/16 0000 Signed Impressions: Service Date/Time: Wednesday, September 21, 2016 22:34 - CONCLUSION: 1. Diffuse airspace opacities with ground glass appearance throughout both lungs. 2. Moderate-sized bilateral pleural effusions. 3. Ectatic and dilated descending thoracic aorta, measuring up to 5.[address] Martinez MD Head Magnetic Resonance Angiography 09/10/16 1028 Signed Impressions: Service Date/Time: Saturday, September 10, 2016 10:57 - CONCLUSION: 1. Unremarkable MRA examination without evidence for large vessel occlusion, aneurysm, or vascular malformation. Richardson Haney MD Brain MRI 09/10/16 1028 Signed Impressions: Service Date/Time: Saturday, September 10, 2016 10:57 - CONCLUSION: 1. Findings most consistent with new embolic infarcts involving both the anterior and posterior circulation. Richardson Haney MD Carotid Artery Ultrasound 09/09/16 1028 Signed Impressions: Service Date/Time: September 10:43 - CONCLUSION: 1. Moderate visible plaque without hemodynamically significant stenosis identified. No significant change from August 25. Amado Crain MD Renal Ultrasound 09/09/16 0000 Signed Impressions: Service Date/Time: September 15:41 - CONCLUSION: 1. Cortical atrophy with small bilateral renal cysts. No hydronephrosis. Amado Crain MD Head CT 09/08/16 2251 Signed Impressions: Service Date/Time: Thursday, September 08, 2016 23:41 - CONCLUSION: Stable noncontrast CT with no evidence of hemorrhage or acute infarction. Atrophy and chronic small vessel splenic changes remain. Sanya Cavazos MD Objective Remarks GENERAL: 75-year-old male laying in bed, appears tired and weak SKIN: Warm and dry. HEAD: Atraumatic. Normocephalic. NECK: Trachea midline. No thyromegaly CARDIOVASCULAR: appears regular, no murmurs RESPIRATORY: Faint crackles appreciated bilaterally left greater than right. No wheezing. GASTROINTESTINAL: Abdomen soft, non-tender, nondistended. No guarding. BS active. MUSCULOSKELETAL: Extremities with trace lower extremity edema. NEUROLOGICAL: opens eyes, able to nod w yes or no, he is able to answer some questions. Procedures none A/P Problem List: (1) Acute hypoxemic respiratory failure ICD Code: J96.01 - Acute respiratory failure with hypoxia Status: Acute (2) Fluid overload ICD Code: E87.70 - Fluid overload, unspecified Status: Acute (3) ANNY (acute kidney injury) ICD Code: N17.9 - Acute kidney failure, unspecified Status: Acute (4) Cerebrovascular accident (CVA) due to embolism ICD Code: I63.9 - Cerebral infarction, unspecified Status: Acute (5) CKD (chronic kidney disease), stage III ICD Code: N18.3 - Chronic kidney disease, stage 3 (moderate) Status: Chronic (6) Leukocytosis ICD Code: D72.829 - Elevated white blood cell count, unspecified Status: Acute (7) CAD (coronary artery disease) ICD Code: I25.10 - Atherosclerotic heart disease of koi coronary artery without angina pectoris Status: Chronic (8) Hyperkalemia ICD Code: E87.5 - Hyperkalemia Status: Resolved Assessment and Plan Neuro/Psych: Left occipital, bilateral frontal parietal cerebellar CVA subacute Chronic headaches Chronic benzodiazepine use Chronic oxycodone use MRI brain revealed left occipital, bilateral frontal parietal and cerebellar CVA likely ALFIE/TAFFY PULLER distribution Evaluated by Dr. Jeffries/neurology who has now signed off. on eliquis. on Xanax 0.25 mg every 6 hours. Anxiety CV: Coronary disease CABG ASCVD Carotid stenosis TAAA Hypertension dyslipidemia History atrial fibrillation status post ablation 2011 Followed by cardiology. s/p amiodarone gtt, now on 200mg po daily per cards. Currently on labetalol 100 mg 3 times a day Currently off atorvastatin 40 mg daily/home medication due to intolerance to statins per cards note Not on aspirin per cards Echocardiogram revealed EF 65-70%. OHS septal motion./Paradoxical, CARA 50-60 mmHg Resp: Acute hypoxemic respiratory failure currently on a non rebreather 10L Incentive spirometry while awake intubated and extubated x 2, last Extubation 09/23 Chest x-ray 09/27 worsening bilateral airspace disease. Bronchodilator therapy every 6 hours and as indicated pulm following, on IV solumedrol and duonebs and lasix 20mg IV bid. Palliative care following. Pt wishes to be full code at this time. I discussed the case w candy forming machine operator. If pt's condition worsens, will transfer care to their service. Monitor closely in ICU. continue bipap prn GI: Advance diet as tolerated/renal diet On famotidine 10 mg by mouth daily /renal: History of hydroureter Renal ultrasound Revealed no hydronephrosis nephrology has stopped sodium bicarbonate. on PhosLo 667 3 times a day Diuretics held. On Solu-Medrol 35 mg IV daily per Dr. Cerda Creatinine yp to 2.81 this morning. Noted elevated lambda and kappa Chains/ESR likely secondary underlying acute kidney injury. Evaluated by Dr. Mccollum/hematology Endo: Sliding scale insulin if indicated Heme: History of colon cancer status post partial colectomy History of bladder cancer Leukocytosis normocytic anemia Monitor CBC daily. Follow trends. ID: Possible hospital-acquired pneumonia was on piperacillin/tazobactam, now on zyvox and levaquin. I did discuss w ID regarding worsening leukocytosis. Dr. Nova will adjust abx. Blood cultures 09/08 neg to date sputum cx neg x 48 hrs FEN: Hyponatremia Elevated phosphorus Monitor BMP, magnesium phosphorus daily. Recheck in AM. MSK: PT evaluate and treat. Encourage out of bed to chair and ambulation. Prophylaxis - GI -famotidine - DVT - SCD/eliquis Discharge Planning continue to monitor in ICU as clinically he is worsening. appreciate assistance from all consultants. I did discuss case w candy forming machine operator, Dr. Abraham, stat chest x-ray ordered. If pt's condition worsens, will transfer care to candy forming machine operator's service Palliative care also following. Manuela Sandhu MD Sep 28, 2016 11:32
--- NOTE | 2016-09-28 11:46 | HHI.IDPN ---
Note Infectious Disease Note Patient on 10L O2 VIA NRM. Looks lethargic. Afebrile. denies chills. No cough or sputum. WBC elevated. PAST MEDICAL HISTORY 1. Coronary artery disease. 2. History of atrial fibrillation. 3. History of aortic aneurysm. 4. Bladder cancer treated with cystectomy. 5. Coronary artery bypass graft surgery. 6. Colon cancer history. 7. Peripheral vascular disease. 8. Hypertension. 9. History of transurethral resection of bladder tumor. 10.History of abdominal aortic aneurysm repair. ALLERGIES 1. SIMVASTATIN. 2. PRAVASTATIN. 3. ATORVASTATIN. ANTIBIOTICS 1. Zyvox. 2. Levaquin. OBJECTIVE: Vital Signs Date Time Temp Pulse Resp B/P (MAP) Pulse Ox O2 Delivery O2 Flow Rate FiO2 09/28/16 06:00 89 09/28/16 04:00 98.8 85 31 111/62 (78) 91 09/28/16 04:00 85 09/28/16 03:16 94 Partial Rebreather 10.00 09/28/16 02:00 80 09/28/16 01:45 97 Partial Rebreather 10.00 09/28/16 00:00 74 09/28/16 00:00 98.8 75 24 144/65 (91) 96 09/27/16 23:55 93 Partial Rebreather 10.00 09/27/16 22:00 77 09/27/16 21:37 97 50 09/27/16 20:11 93 Partial Rebreather 10.00 09/27/16 20:00 98.8 77 21 112/56 (74) 93 09/27/16 19:00 92 Partial Non-Rebreather 11.00 09/27/16 18:00 78 09/27/16 17:09 92 Partial Rebreather 12.00 09/27/16 16:00 74 09/27/16 16:00 97.3 74 28 117/55 (75) 97 09/27/16 14:00 74 09/27/16 12:00 98.8 79 28 131/64 (86) 97 09/27/16 12:00 79 Laboratory Tests Test 09/28/16 05:00 White Blood Count 21.7 TH/MM3 Red Blood Count 2.83 MIL/MM3 Hemoglobin 8.5 GM/DL Hematocrit 26.2 % Mean Corpuscular Volume 92.8 FL Mean Corpuscular Hemoglobin 30.1 PG Mean Corpuscular Hemoglobin Concent 32.5 % Red Cell Distribution Width 15.0 % Platelet Count 466 TH/MM3 Mean Platelet Volume 7.8 FL Neutrophils (%) (Auto) 89.1 % Lymphocytes (%) (Auto) 5.6 % Monocytes (%) (Auto) 3.5 % Eosinophils (%) (Auto) 1.4 % Basophils (%) (Auto) 0.4 % Neutrophils # (Auto) 19.4 TH/MM3 Lymphocytes # (Auto) 1.2 TH/MM3 Monocytes # (Auto) 0.8 TH/MM3 Eosinophils # (Auto) 0.3 TH/MM3 Basophils # (Auto) 0.1 TH/MM3 CBC Comment AUTO DIFF Differential Total Cells Counted 100 Neutrophils % (Manual) 83 % Band Neutrophils % 1 % Lymphocytes % 9 % Monocytes % 4 % Eosinophils % 3 % Neutrophils # (Manual) 18.2 TH/MM3 Differential Comment FINAL DIFF MANUAL Platelet Estimate HIGH Platelet Morphology Comment ENLARGED Laboratory Tests Test 09/27/16 03:10 09/28/16 05:00 Blood Urea Nitrogen 80 MG/DL 76 MG/DL Creatinine 2.59 MG/DL 2.81 MG/DL Random Glucose 95 MG/DL 100 MG/DL Calcium Level 9.1 MG/DL 8.8 MG/DL Sodium Level 136 MEQ/L 135 MEQ/L Potassium Level 4.1 MEQ/L 4.2 MEQ/L Chloride Level 98 MEQ/L 96 MEQ/L Carbon Dioxide Level 29.2 MEQ/L 27.9 MEQ/L Anion Gap 9 MEQ/L 11 MEQ/L Estimat Glomerular Filtration Rate 24 ML/MIN 22 ML/MIN Phosphorus Level 3.7 MG/DL 3.8 MG/DL Albumin 2.2 GM/DL IMAGING: Chest X-Ray 09/23/16 0000 Signed Impressions: Service Date/Time: September 08:16 - CONCLUSION: 1. Multiple tubes and lines are in good positions. 2. Bilateral pulmonary infiltrates are unchanged compared to the previous examination. Jeffrey Mohan MD Chest CT 09/21/16 0000 Signed Impressions: Service Date/Time: Wednesday, September 21, 2016 22:34 - CONCLUSION: 1. Diffuse airspace opacities with ground glass appearance throughout both lungs. 2. Moderate-sized bilateral pleural effusions. 3. Ectatic and dilated descending thoracic aorta, measuring up to 5.[address] Martinez MD Head Magnetic Resonance Angiography 09/10/16 1028 Signed Impressions: Service Date/Time: Saturday, September 10, 2016 10:57 - CONCLUSION: 1. Unremarkable MRA examination without evidence for large vessel occlusion, aneurysm, or vascular malformation. Richardson Haney MD Brain MRI 09/10/16 1028 Signed Impressions: Service Date/Time: Saturday, September 10, 2016 10:57 - CONCLUSION: 1. Findings most consistent with new embolic infarcts involving both the anterior and posterior circulation. Richardson Haney MD Carotid Artery Ultrasound 09/09/16 1028 Signed Impressions: Service Date/Time: September 10:43 - CONCLUSION: 1. Moderate visible plaque without hemodynamically significant stenosis identified. No significant change from August 25. Amado Crain MD Renal Ultrasound 09/09/16 0000 Signed Impressions: Service Date/Time: September 15:41 - CONCLUSION: 1. Cortical atrophy with small bilateral renal cysts. No hydronephrosis. Amado Crain MD Head CT 09/08/16 2251 Signed Impressions: Service Date/Time: Thursday, September 08, 2016 23:41 - CONCLUSION: Stable noncontrast CT with no evidence of hemorrhage or acute infarction. Atrophy and chronic small vessel splenic changes remain. Sanya Cavazos MD PHYSICAL EXAMINATION GENERAL: No acute distress. HEENT: Sclera is non-icteric. Oropharynx mucosa moist. NECK: No swelling or adenopathy. LUNGS: Coarse bilateral rhonchi. HEART: Nl S1S2, No audible murmur, rub or gallop. ABDOMEN: Bowel sounds present. Soft. No tenderness. EXTREMITIES: No clubbing, no cyanosis. no edema. SKIN: No diffuse rash. NEUROLOGIC: Non focal. PSYCH: Calm and cooperative. IMPRESSION 1. Acute respiratory failure. 2. Bilateral lung infiltrates, probable HCAP pneumonia. Worsened CXR. 3. Worsened leukocytosis. RECOMMENDATIONS Add Meropenem. Continue PO Zyvox. Continue PO Levaquin. Sputum culture repeat when feasible. D/W Dr Sandhu. Sae Nova MD Sep 28, 2016 11:45
--- NOTE | 2016-09-28 11:59 | RADRPT ---
EXAM DATE/TIME: 09/28/2016 11:27 [facility] COMPARISON: CHEST SINGLE AP, September 27, 2016, 13:11. INDICATIONS : Short of breath. MEDICAL HISTORY : Myocardial infarction. Hypercholesterolemia. Hypertension. CAD, Atrial fibrillation, colon and bl adder ca. SURGICAL HISTORY : CABG. coronary artery stent, abdominal aortic aneurysm repair ENCOUNTER: Initial ACUITY: 1 month PAIN SCORE: 0/10 LOCATION: Bilateral chest FINDINGS: Cardiomegaly, median sternotomy wires and diffuse alveolar and interstitial infiltrates are identifie d and stable.. There are no definite effusions. Right subclavian central venous catheter tip overlies the right atrium. CONCLUSION: Stable examination. Ajay Prabhakar MD on September 28, 2016 at 11:55 Board Certified Radiologist. This report was verified electronically.
[2016-09-28] MEDS ORDERED: MISCELLANEOUS PHARMACY INFORMATION XX PRN (12:00)
[2016-09-28] MEDS ORDERED: ASP: Other exception documentation: ( ) PRN (12:00)
--- NOTE | 2016-09-28 12:04 | HHI.NPPN ---
Subjective History of Present Illness The patient is a 75 yo [place] male who presented to this facility 09/08 with complaints of R hand weakness. He was here at this facility just 10 days ago for 4-vessel CABG, discharged on 08/29. While undergoing CABG, he suffered a stroke and came in today as he was concerned he was having another. Was having no other neurological issues. We were consulted for acute renal failure. Presenting SCr of 3.65 that has worsened significantly from discharge on 08/29 at 1.53. Appears baseline renal function 1.2-1.6 according to previous records. States he has been at his usual state of health since his hospital discharge besides R hand weakness that resolved on its own while here in the ED. Denies any NVD. No NSAIDs. Denies any urinary issues. Review of previous imaging (namely CTA on 08/24) showed a L sided hydronephrosis extending to UVJ. THe patient was unaware of this. He has hx of bladder CA that was treated by surgical resection at [facility] about 1 year ago. Scheduled for f/u there in 1 month. CTA also revealed abdominal aneurysm that vascular surgery was consulted about and was supposed to have f/u as outpatient. Interval History Patient indicated feeling fatigued otherwise no verbal complaints. by bedside. Review of Systems Respiratory Lungs: SOB Objective Data Data Vital Signs Date Time Temp Pulse Resp B/P (MAP) Pulse Ox O2 Delivery O2 Flow Rate FiO2 09/28/16 06:00 89 09/28/16 04:00 98.8 85 31 111/62 (78) 91 09/28/16 04:00 85 09/28/16 03:16 94 Partial Rebreather 10.00 09/28/16 02:00 80 09/28/16 01:45 97 Partial Rebreather 10.00 09/28/16 00:00 74 09/28/16 00:00 98.8 75 24 144/65 (91) 96 09/27/16 23:55 93 Partial Rebreather 10.00 09/27/16 22:00 77 09/27/16 21:37 97 50 09/27/16 20:11 93 Partial Rebreather 10.00 09/27/16 20:00 98.8 77 21 112/56 (74) 93 09/27/16 19:00 92 Partial Non-Rebreather 11.00 8/21/17 18:00 78 09/27/16 17:09 92 Partial Rebreather 12.00 09/27/16 16:00 74 09/27/16 16:00 97.3 74 28 117/55 (75) 97 09/27/16 14:00 74 -: 09/28/16 0500 09/28/16 0500 Physical Exam General Appearance: No Acute Distress Eyes Eye Exam: Sclera White Pulmonary Resp Exam: Breath Sounds Equal, No Distress, Diminished Breath Sounds Cardiology CV Exam: Normal Sinus Rhythm, Irregular Gastrointestinal/Abdomen GI Exam: Soft, Non-Tender Integumentary Skin Exam: Clear, Warm Skin Remarks Skin turgor diminished. Extremeties Extremities Exam: No Edema Neurologic Neuro Exam: Awake Assessment/Plan Discussed Condition With: Patient Problem List: (1) Acute kidney failure ICD Codes: N17.9 - Acute kidney failure, unspecified Status: Acute Plan: Differential diagnosis at this point as far as acute renal insufficiency is concerned would be atheroembolic disease occurring during previous admission with subsequent decline in renal function and a lesser consideration towards interstitial nephritis possibly related to Protonix. Renal functions have improved over the past few days but the creatinine has worsened today possibly related to diuresis. Will convert Solu-Medrol to oral prednisone at this time. No evidence of peripheral edema and lungs are clinically clear. I would like diuretics either decreased or possibly administered when necessary and pulmonary will be contacted regarding this. Discussed situation with RN who will contact pulmonary. I discussed with the patient and his again the severity of his renal insufficiency which is still severe but slightly improved as discussed with patient and his . I do not believe despite repeated discussion that the has significant insight into the pathogenesis and current status of his renal dysfunction and overall clinical status. Recommend avoidance of Protonix in the future without kidney biopsy to confirm or eliminate incision nephritis. Medications should be adjusted for the patient's renal decline. Avoid nephrotoxic medications including NSAIDs and iodinated contrast dyes. Gadolinium should be avoided as eGFR 30. (2) CKD (chronic kidney disease) stage 3, GFR 30-59 ml/min ICD Codes: N18.3 - Chronic kidney disease, stage 3 (moderate) Status: Acute Plan: Predating acute renal insufficiency. (3) Hypoxemic respiratory failure, chronic ICD Codes: J96.11 - Chronic respiratory failure with hypoxia Status: Acute Plan: Pt s/p extubation, but not tolerating Bi-PAP. Sats in upper 80s to 90s on NC. (4) TIA (transient ischemic attack) ICD Codes: G45.9 - Transient cerebral ischemic attack, unspecified Status: Acute (5) Hypertension ICD Codes: I10 - Essential (primary) hypertension Status: Acute (6) CAD (coronary artery disease) ICD Codes: I25.10 - Atherosclerotic heart disease of [place] coronary artery without angina pectoris Status: Chronic (7) Congestive heart failure ICD Codes: I50.9 - Heart failure, unspecified Status: Acute Plan: Compensated currently. (8) Anemia ICD Codes: D64.9 - Anemia, unspecified Status: Acute Plan: Of acute illness. Problem Qualifiers (1) TIA (transient ischemic attack): Liv Cerda MD Sep 28, 2016 12:04
--- NOTE | 2016-09-28 13:09 | HHI.PR ---
Subjective Remarks Remainson O 2 NRB mask. Used Bipap last night .alert and Oriented. CXR is worse.Output OK CR >2. Objective Vital Signs Date Time Temp Pulse Resp B/P (MAP) Pulse Ox O2 Delivery O2 Flow Rate FiO2 09/28/16 12:21 93 Partial Rebreather 12.00 09/28/16 06:00 89 09/28/16 04:00 98.8 85 31 111/62 (78) 91 09/28/16 04:00 85 09/28/16 03:16 94 Partial Rebreather 10.00 09/28/16 02:00 80 09/28/16 01:45 97 Partial Rebreather 10.00 09/28/16 00:00 74 09/28/16 00:00 98.8 75 24 144/65 (91) 96 09/27/16 23:55 93 Partial Rebreather 10.00 09/27/16 22:00 77 09/27/16 21:37 97 50 09/27/16 20:11 93 Partial Rebreather 10.00 09/27/16 20:00 98.8 77 21 112/56 (74) 93 09/27/16 19:00 92 Partial Non-Rebreather 11.00 09/27/16 18:00 78 09/27/16 17:09 92 Partial Rebreather 12.00 09/27/16 16:00 74 09/27/16 16:00 97.3 74 28 117/55 (75) 97 09/27/16 14:00 74 I/O 09/27/16 09/27/16 09/27/16 09/28/16 09/28/16 09/28/16 06:59 14:59 22:59 06:59 14:59 22:59 Intake Total 417 ml 50 ml 1189 ml 120 ml Output Total 1200 ml 1100 ml 601 ml Balance -783 ml 50 ml 89 ml -481 ml Intake Oral 240 ml 960 ml 120 ml IV Total 177 ml 50 ml 229 ml Output Urine Total 1200 ml 1100 ml 600 ml Stool Total 1 ml # Bowel Movements 0 2 Result Diagram: 09/28/16 0500 09/28/16 0500 Objective Remarks GENERAL: This moderately overweight elderly man alert and in mild distress HEENT: Head is normocephalic. Pupils are reactive. Tongue is moist. Throat clear NECK: Supple with no venous distention. Trachea is midline. No thyroid enlargement. CHEST: Equal movements with diminished breath sounds at the bases with bibasilar crackles.Occ Wheeze. HEART: Sounds are irregular S1-S2. No murmur. ABDOMEN: Soft. Protuberant without masses. No organomegaly. EXTREMITIES: Decreased pulses. Good camp cook bilaterally.Moves legs .Edema 2 + SKIN: Dry and cool. Assessment and Plan Assessment and Plan IMPRESSION 1. Acute respiratory failure.Resolving 2. Fluid overload status with pulmonary edema. 3. Acute kidney failure.Resolving 4. History of cerebrovascular accident. 5. Bibasilar atelectasis with possible pneumonia. 6. History of colon cancer and bladder cancer. Plan : 1. Chest X ray in am 2. O2 at 70 % NRB 3. Nebs qid ,Duoneb. 4. BiPAP today for 8 hrs daytime and at HS 5. Antibiotics per ID 6. Lasix 20 mg IV daily 7. PT Evaluation. 8. BMP ,CBC in am 9. D/W here . Jaime Encinas MD Sep 28, 2016 13:09
[2016-09-28] MEDS: ALPRAZolam 0.25 MG TAB PO PRN (13:33)
[2016-09-28] MEDS: MEROPENEM INJ 500 MG in SODIUM CHLORIDE 0.9% INJ 100 ML IV SCH (13:33)
--- NOTE | 2016-09-28 14:10 | PD.CARD.PN ---
Subjective Subjective Remarks The patient feels weak. He is tolerating some PO diet. Remains on none rebreather. Sob when he takes it off to eat. He is in NSR today. Off amio gtt. New leukocytosis today. Abx advanced to meropenem. Objective Medications Current Medications Medications (Trade) Dose Ordered Sig/Awilda Route Start Time Stop Time Status Last Admin (NS Flush) 2 ml UNSCH PRN IV FLUSH 09/09/16 00:45 (NS Flush) 2 ml BID IV FLUSH 09/09/16 09:00 09/28/16 09:00 (Narcan Inj) 0.4 mg UNSCH PRN IV 09/09/16 00:45 (Xanax) 0.25 mg Q6H PRN PO 09/09/16 13:45 09/28/16 13:33 (Pill Splitter) 1 ea UNSCH PRN OTHER 09/09/16 14:00 (Eliquis) 5 mg BID PO 09/10/16 09:00 09/28/16 09:13 (Catapres) 0.1 mg Q6H PRN PO 09/11/16 14:30 09/19/16 23:02 (Lopressor Inj) 5 mg Q2HR PRN IV PUSH 09/16/16 14:00 09/26/16 05:00 (Apresoline Inj) 10 mg Q6HR PRN IV PUSH 09/16/16 12:45 09/27/16 01:50 (Peridex 0.12% Liq) 15 ml BID@08,20 MT 09/16/16 20:00 09/26/16 20:00 (Racepinephrine 2.25% Neb) 0.5 ml Q1HR NEB PRN NEB 09/17/16 17:15 09/17/16 18:02 (Anne-Colace) 1 tab BID PO 09/19/16 21:00 09/27/16 20:48 (Milk Of Magnesia Liq) 30 ml Q12H PRN PO 09/19/16 13:30 09/19/16 13:30 (Senokot) 17.2 mg Q12H PRN PO 09/19/16 13:30 (Dulcolax Supp) 10 mg DAILY PRN RECTAL 09/19/16 13:30 (Lactulose Liq) 30 ml DAILY PRN PO 09/19/16 13:30 (Trandate) 100 mg TID PO 09/20/16 13:00 09/28/16 13:33 (Pepcid) 10 mg DAILY PO 09/21/16 09:00 09/28/16 09:13 (Duoneb Neb) 1 ampule QID NEB NEB 09/21/16 12:00 09/28/16 08:07 (Albuterol Neb) 2.5 mg Q2HR NEB PRN NEB 09/21/16 12:00 09/25/16 00:15 (Phoslo) 667 mg TID PO 09/21/16 18:00 09/28/16 13:33 (Peridex 0.12% Liq) 15 ml BID@08,20 MT 09/22/16 20:00 (Cordarone) 200 mg DAILY PO 09/28/16 21:00 (Zyvox) 600 mg Q12HR PO 09/27/16 21:00 09/28/16 09:13 (Levaquin) 750 mg Q48H PO 09/27/16 20:00 09/27/16 20:48 (ASP Crit: Other exception documentation) 1 UNSCH X1 PRN .XX 09/28/16 12:00 09/29/16 11:59 ([facility] Information) 1 UNSCH X1 PRN XX 09/28/16 12:00 09/29/16 11:59 Meropenem 500 mg/ Sodium Chloride 100 ml @ 200 mls/hr Q12H IV 09/28/16 12:00 09/28/16 13:33 (Lasix Inj) 20 mg DAILY IV PUSH 09/29/16 09:00 (Deltasone) 30 mg DAILY PO 09/29/16 09:00 Vital Signs / I&O Vital Signs Date Time Temp Pulse Resp B/P (MAP) Pulse Ox O2 Delivery O2 Flow Rate FiO2 09/28/16 12:21 93 Partial Rebreather 12.00 09/28/16 06:00 89 09/28/16 04:00 98.8 85 31 111/62 (78) 91 09/28/16 04:00 85 09/28/16 03:16 94 Partial Rebreather 10.00 09/28/16 02:00 80 09/28/16 01:45 97 Partial Rebreather 10.00 09/28/16 00:00 74 09/28/16 00:00 98.8 75 24 144/65 (91) 96 09/27/16 23:55 93 Partial Rebreather 10.00 09/27/16 22:00 77 09/27/16 21:37 97 50 09/27/16 20:11 93 Partial Rebreather 10.00 09/27/16 20:00 98.8 77 21 112/56 (74) 93 09/27/16 19:00 92 Partial Non-Rebreather 11.00 09/27/16 18:00 78 09/27/16 17:09 92 Partial Rebreather 12.00 09/27/16 16:00 74 09/27/16 16:00 97.3 74 28 117/55 (75) 97 I/O 09/27/16 09/27/16 09/27/16 09/28/16 09/28/16 09/28/16 06:59 14:59 22:59 06:59 14:59 22:59 Intake Total 417 ml 50 ml 1189 ml 120 ml Output Total 1200 ml 1100 ml 601 ml Balance -783 ml 50 ml 89 ml -481 ml Intake Oral 240 ml 960 ml 120 ml IV Total 177 ml 50 ml 229 ml Output Urine Total 1200 ml 1100 ml 600 ml Stool Total 1 ml # Bowel Movements 0 2 Physical Exam GENERAL: Elderly male, a bedside SKIN: Warm and dry. HEAD: Normocephalic. EYES: No scleral icterus. No injection or drainage. NECK: Supple, trachea midline CARDIOVASCULAR: Midline incision healing well, reg rate and rhythm RESPIRATORY: on BIPAP GASTROINTESTINAL: Abdomen soft, non-tender, nondistended. MUSCULOSKELETAL: No cyanosis, no BLE edema BACK: Nontender without obvious deformity. Laboratory Laboratory Tests Test 09/28/16 05:00 White Blood Count 21.7 TH/MM3 Red Blood Count 2.83 MIL/MM3 Hemoglobin 8.5 GM/DL Hematocrit 26.2 % Mean Corpuscular Volume 92.8 FL Mean Corpuscular Hemoglobin 30.1 PG Mean Corpuscular Hemoglobin Concent 32.5 % Red Cell Distribution Width 15.0 % Platelet Count 466 TH/MM3 Mean Platelet Volume 7.8 FL Neutrophils (%) (Auto) 89.1 % Lymphocytes (%) (Auto) 5.6 % Monocytes (%) (Auto) 3.5 % Eosinophils (%) (Auto) 1.4 % Basophils (%) (Auto) 0.4 % Neutrophils # (Auto) 19.4 TH/MM3 Lymphocytes # (Auto) 1.2 TH/MM3 Monocytes # (Auto) 0.8 TH/MM3 Eosinophils # (Auto) 0.3 TH/MM3 Basophils # (Auto) 0.1 TH/MM3 CBC Comment AUTO DIFF Differential Total Cells Counted 100 Neutrophils % (Manual) 83 % Band Neutrophils % 1 % Lymphocytes % 9 % Monocytes % 4 % Eosinophils % 3 % Neutrophils # (Manual) 18.2 TH/MM3 Differential Comment FINAL DIFF MANUAL Platelet Estimate HIGH Platelet Morphology Comment ENLARGED Blood Urea Nitrogen 76 MG/DL Creatinine 2.81 MG/DL Random Glucose 100 MG/DL Albumin 2.2 GM/DL Calcium Level 8.8 MG/DL Phosphorus Level 3.8 MG/DL Sodium Level 135 MEQ/L Potassium Level 4.2 MEQ/L Chloride Level 96 MEQ/L Carbon Dioxide Level 27.9 MEQ/L Anion Gap 11 MEQ/L Estimat Glomerular Filtration Rate 22 ML/MIN Imaging Last 72 hours Impressions Chest X-Ray 09/27/16 0000 Signed Impressions: Service Date/Time: Tuesday, September 27, 2016 13:11 - CONCLUSION: Worsening bilateral airspace disease. Jacob Trujillo MD Assessment and Plan Assessment and Plan Recurrent acute hypoxic respiratory failure requiring ventilator support. Now with VAP/HCAP and recent fluid overload. Tolerating partial rebreather Chest pain, troponin elevated likely due to CKD and had recent NSTEMI. Atrial fibrillation with CVA and TIAs. Patient was on subtherapeutic Eliquis prior to admission. Now on Eliquis 5 mg BID. 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 PLAN: Consult Dr Zamora per patient request. Discussed with DANNY Hines Continue amio, Labetalol, Eliquis. Intolerant of metoprolol due to hallucinations. Will hold off resuming ASA for now due to critical illness and increased GI risk. He has been intolerant of multiple statins in the past. Will consider resuming therapy once the patient stabilizes. SBP goal < 130 DBP goal < 90. Continue Labetalol with hold parameters The patient was seen and evaluated by Dr. Moran who completed a [id number] encounter, completed a physical exam and participated in evaluation and management. Elin Kwok Sep 28, 2016 14:10
[2016-09-28] MEDS: AMIODARONE 200 MG TAB PO SCH (20:50)
[2016-09-29] VITALS (20 sets, daily range): BP systolic 114–151; BP diastolic 56–78; PULSE 79–96; RESP 24–49; TEMP 97.4–98.6; O2SAT 88–98
[2016-09-29] MEDS: RESP: ALBUTEROL 2.5 MG/3 ML NEB (PRN) NEB (00:54)
[2016-09-29] MEDS: MEROPENEM INJ 500 MG in SODIUM CHLORIDE 0.9% INJ 100 ML IV SCH ×2 (01:40→12:38)
[2016-09-29] MEDS: ALPRAZolam 0.25 MG TAB PO PRN (01:59)
--- NOTE | 2016-09-29 02:01 | RADRPT ---
EXAM DATE/TIME: 09/29/2016 01:36 [facility] COMPARISON: CHEST SINGLE AP, September 28, 2016, 11:27. INDICATIONS : Short of breath. MEDICAL HISTORY : Myocardial infarction. Hypercholesterolemia. Hypertension. CAD, Atrial SURGICAL HISTORY : CABG. coronary artery stent, abdominal aortic aneurysm repair ENCOUNTER: Subsequent ACUITY: 1 month PAIN SCORE: 0/10 LOCATION: Bilateral chest FINDINGS: Compared with September 28 there is slight improvement in pulmonary edema pattern with residual intersti tial prominence. No significant effusion. No pneumothorax. Right central line in superior vena cava. Previous CABG. CONCLUSION: 1. Improvement in pulmonary edema pattern since September 28. No new consolidation or effusion. Amado Crain MD on September 29, 2016 at 1:59 Board Certified Radiologist. This report was verified electronically.
[2016-09-29 02:50] LABS: BLOOD GAS BASE EXCESS 2.9 mmol/L (-2-2); BLOOD GAS CARBOXYHEMOGLOBIN 1.6 % (0-4); BLOOD GAS HCO3 27 mmol/L (22-26); BLOOD GAS METHEMOGLOBIN 0.9 % (0-2); BLOOD GAS O2 HGB SATURATION 98 % (90-100); BLOOD GAS OXYGEN CONTENT 12.5 Vol % (12.0-20.0); BLOOD GAS PCO2 42 mmHg (38-42); BLOOD GAS PO2 256 mmHg (61-120); BLOOD GAS TOTAL HGB 8.7 G/DL (12.0-16.0); CRITICAL VALUE NO; TEMP CORR TO 98.6
[2016-09-29 02:51] LABS: DRAW SITE RT RADIAL; FIO2 100 %; NUMBER OF ARTERIAL PUNCTURES 2; OXYGEN DEVICE BIPAP; VENT SETTINGS IPAP 15 / EPAP 5 /
[2016-09-29 02:52] LABS: STAT NO; ULNAR PULSE PRESENT
[2016-09-29 03:24] LABS: AUTOMATED NEUTROPHIL # 20.8 TH/MM3 (1.8-7.7); BASOPHIL # 0.1 TH/MM3 (0-0.2); BASOPHIL % 0.3 % (0.0-2.0); EOSINOPHIL # 0.3 TH/MM3 (0-0.4); EOSINOPHIL % 1.4 % (0.0-4.0); LYMPH % 4.9 % (9.0-44.0); LYMPHOCYTE # 1.1 TH/MM3 (1.0-4.8); MEAN CORPUSCULAR HEMOGLOBIN 30.4 PG (27.0-34.0); MEAN CORPUSCULAR HGB CONC 32.4 % (32.0-36.0); MONO % 3.5 % (0.0-8.0); NEUT % 89.9 % (16.0-70.0); PLATELET COUNT 444 TH/MM3 (150-450); RED BLOOD COUNT 2.88 MIL/MM3 (4.50-5.90); RED CELL DISTRIBUTION WIDTH 15.3 % (11.6-17.2); WHITE BLOOD COUNT 23.1 TH/MM3 (4.0-11.0)
[2016-09-29 03:27] LABS: HEMO FLAGS AUTO DIFF
[2016-09-29 03:42] LABS: BICARBONATE 29.4 MEQ/L (21.0-32.0); MAGNESIUM 2.2 MG/DL (1.5-2.5); POTASSIUM 4.3 MEQ/L (3.5-5.1)
[2016-09-29 04:50] LABS: PLATELET ESTIMATE SMEAR NORMAL (NORMAL); PLATELET MORPHOLOGY NORMAL (NORMAL); SCAN/DIFF AUTO DIFF CONFIRMED
[2016-09-29] MEDS: CHLORHEXIDINE 0.12% (ORAL KIT) 15 ML CUP MT SCH ×4 (08:00→20:00)
[2016-09-29] MEDS: LABETALOL HCL 100 MG TAB PO SCH ×4 (09:00→18:23)
[2016-09-29] MEDS ORDERED: predniSONE 20 MG TAB PO SCH (09:00)
[2016-09-29] MEDS: FUROSEMIDE 20 MG/2 ML VIAL IV PUSH SCH (09:10)
[2016-09-29] MEDS: LINEZOLID 600 MG TAB PO SCH ×2 (09:11→20:25)
[2016-09-29] MEDS: AMIODARONE 200 MG TAB PO SCH (09:11)
[2016-09-29] MEDS: APIXABAN 5 MG TABLET PO SCH ×2 (09:11→20:26)
[2016-09-29] MEDS: CALCIUM ACETATE 667 MG CAP PO SCH ×4 (09:11→18:23)
[2016-09-29] MEDS: DOCUSATE SODIUM 50 MG/SENNA 8.6 MG TAB PO SCH ×3 (09:11→21:00)
[2016-09-29] MEDS: FAMOTIDINE 20 MG TAB PO SCH (09:11)
[2016-09-29] MEDS: predniSONE 10 MG TAB PO SCH (09:11)
[2016-09-29] MEDS: SODIUM CHLORIDE 0.9% FLUSH 10 ML FLUSH IV FLUSH SCH ×2 (09:12→20:26)
--- NOTE | 2016-09-29 10:49 | HHI.HCPN ---
Reason for visit a. To assist with evaluation and management of symptoms including: dyspnea, anxiety, malnutrition b. To assist medical decision maker(s) with: better understanding of current medical conditions; weighing benefits/burdens of medical treatment options; making medical treatment decisions. (Ronit Blackwood) Subjective/Interval History This 75 yr old patient presented to the ED on 09/08/16, with reports of right arm weakness, numbness. Symptoms lasted a few minutes and then subsided. Patient with known history of hypertension, AAA repair, colon and bladder cancer posttreatment, [place], CVA, status post CABG 10 days prior to this. Patient respiratory status has not improved, he is still requiring alternating between a non-rebreather mask and BiPAP, pulmonology increased prescribed time on BiPAP from 4 hours during the day and QHS to 8 hours during day and QHS. CXR on 09/29 Improvement in pulmonary edema pattern since September 28. No new consolidation or effusion. No improvement in leukocytosis today, increase in WBC: 23.1, afebrile , ID following, adjustments were made yesterday to antimicrobial therapy, added meropenem, continued zyvox po and levaquin po. Nephrology following the patient due ARF, renal function remains elevated and has increased today, BUN: 82, creatinine: 2.89. Palliative care continues to follow the patient throughout this hospital course to provide support, guidance, and clarification of medical treatment. . Family/friend interactions Attempted to meet with the patient's at bedside twice today, she was not present in the morning or the afternoon. Patient's granddaughter at bedside, update provided. Called patient's daughter Casisdy at 1500 to provide update via telephone, no answer, message left on her voicemail. . (Ronit Blackwood) Advance Directives Living Will: Never completed Health Care Surrogate: Never completed (Ronit Blackwood) Objective Vital Signs Date Time Temp Pulse Resp B/P (MAP) Pulse Ox O2 Delivery O2 Flow Rate FiO2 09/29/16 09:35 95 100 09/29/16 07:33 92 Partial Rebreather 15.00 09/29/16 06:00 85 09/29/16 05:00 87 30 144/78 (100) 98 09/29/16 04:00 97.4 89 35 136/66 (89) 88 09/29/16 04:00 90 09/29/16 03:12 98 BiPAP 09/29/16 02:00 85 09/29/16 01:10 96 100 09/29/16 00:00 79 09/29/16 00:00 97.9 79 24 130/67 (88) 91 09/28/16 23:56 91 Partial Rebreather 09/28/16 22:15 95 BiPAP 09/28/16 22:00 78 09/28/16 20:15 96 60 09/28/16 20:00 79 09/28/16 20:00 98.2 79 27 132/68 (89) 90 09/28/16 19:00 90 Partial Non-Rebreather 15.00 09/28/16 18:00 79 09/28/16 16:00 82 09/28/16 16:00 98.0 82 28 137/72 (93) 93 09/28/16 14:00 86 09/28/16 12:21 93 Partial Rebreather 12.00 09/28/16 12:00 84 09/28/16 12:00 97.3 84 26 134/71 (92) 91 Intake & Output 09/29/16 09/29/16 07:00 19:00 Intake Total 60 ml Output Total 550 ml Balance -490 ml Intake Oral 60 ml Output Urine Total 550 ml Stool Total 0 ml . Physical Exam CONSTITUTIONAL/GENERAL: This is a critically ill elderly male patient, more drowsy today than yesterday. TUBES/LINES/DRAINS: Peripheral IV left upper extremity, right subclavian central line, Franco catheter, SCDs, partial nonrebreather/BiPAP mask SKIN: No jaundice, rashes, or lesions. Few areas ecchymoses on upper extremities. No wounds seen anteriorly. Skin temperature appropriate. HEAD: Atraumatic. Normocephalic. EYES: Pupils equal and round and reactive. Extraocular motions intact. No scleral icterus. No injection or drainage. Fundi not examined. ENT: Slightly hard of hearing. Nose without bleeding or purulent drainage. NECK: Trachea midline. Supple, nontender. CARDIOVASCULAR: Regular rate and rhythm without murmurs.No JVD. Peripheral pulses symmetric. RESPIRATORY/CHEST: Symmetric, unlabored respirations. Mildly tachypneic, on BiPAP. Diminished air movement throughout. GASTROINTESTINAL: Abdomen soft, non-tender, nondistended. No guarding. Bowel sounds present. GENITOURINARY: Without palpable bladder distension. Franco catheter in place. MUSCULOSKELETAL: Extremities without clubbing, cyanosis. Trace edema hands. No joint tenderness or effusion noted. No mottling or clubbing. NEUROLOGICAL: Awake and alert. Oriented times x 2-3 , forgetful at times. Pauses to search for words. Moves all 4 extremities. Left upper slightly weaker than right upper. Lower extremities strength appears equal. PSYCHIATRIC: No obvious anxiety/depression. no apparent hallucinations or other psychotic thought process. . (Jaison,Ronit DELGADO) Diagnostic Tests Laboratory Laboratory Tests Test 09/27/16 03:10 09/27/16 12:00 09/28/16 05:00 09/29/16 02:32 Blood Urea Nitrogen 80 MG/DL (7-18) 76 MG/DL (7-18) Creatinine 2.59 MG/DL (0.60-1.30) 2.81 MG/DL (0.60-1.30) Random Glucose 95 MG/DL (74-106) 100 MG/DL (74-106) Calcium Level 9.1 MG/DL (8.5-10.1) 8.8 MG/DL (8.5-10.1) Sodium Level 136 MEQ/L (136-145) 135 MEQ/L (136-145) Potassium Level 4.1 MEQ/L (3.5-5.1) 4.2 MEQ/L (3.5-5.1) Chloride Level 98 MEQ/L (98-107) 96 MEQ/L (98-107) Carbon Dioxide Level 29.2 MEQ/L (21.0-32.0) 27.9 MEQ/L (21.0-32.0) Anion Gap 9 MEQ/L (5-15) 11 MEQ/L (5-15) Estimat Glomerular Filtration Rate 24 ML/MIN (>89) 22 ML/MIN (>89) Phosphorus Level 3.7 MG/DL (2.5-4.9) 3.8 MG/DL (2.5-4.9) Blood Gas Puncture Site LT RADIAL RT RADIAL Blood Gas Patient Temperature 98.6 98.6 Blood Gas HCO3 26 mmol/L (22-26) 27 mmol/L (22-26) Blood Gas Base Excess 2.5 mmol/L (-2-2) 2.9 mmol/L (-2-2) Blood Gas Oxygen Saturation 96 % (90-100) 98 % (90-100) Arterial Blood pH 7.47 (7.380-7.420) 7.42 (7.380-7.420) Arterial Blood Partial Pressure CO2 36 mmHg (38-42) 42 mmHg (38-42) Arterial Blood Partial Pressure O2 99 mmHg (61-120) 256 mmHg (61-120) Arterial Blood Oxygen Content 12.5 Vol % (12.0-20.0) 12.5 Vol % (12.0-20.0) Arterial Blood Carboxyhemoglobin 2.0 % (0-4) 1.6 % (0-4) Arterial Blood Methemoglobin 0.7 % (0-2) 0.9 % (0-2) Blood Gas Hemoglobin 9.2 G/DL (12.0-16.0) 8.7 G/DL (12.0-16.0) Oxygen Delivery Device PRBR BIPAP Blood Gas Liter Flow 12 L/M White Blood Count 21.7 TH/MM3 (4.0-11.0) Red Blood Count 2.83 MIL/MM3 (4.50-5.90) Hemoglobin 8.5 GM/DL (13.0-17.0) Hematocrit 26.2 % (39.0-51.0) Mean Corpuscular Volume 92.8 FL (80.0-100.0) Mean Corpuscular Hemoglobin 30.1 PG (27.0-34.0) Mean Corpuscular Hemoglobin Concent 32.5 % (32.0-36.0) Red Cell Distribution Width 15.0 % (11.6-17.2) Platelet Count 466 TH/MM3 (150-450) Mean Platelet Volume 7.8 FL (7.0-11.0) Neutrophils (%) (Auto) 89.1 % (16.0-70.0) Lymphocytes (%) (Auto) 5.6 % (9.0-44.0) Monocytes (%) (Auto) 3.5 % (0.0-8.0) Eosinophils (%) (Auto) 1.4 % (0.0-4.0) Basophils (%) (Auto) 0.4 % (0.0-2.0) Neutrophils # (Auto) 19.4 TH/MM3 (1.8-7.7) Lymphocytes # (Auto) 1.2 TH/MM3 (1.0-4.8) Monocytes # (Auto) 0.8 TH/MM3 (0-0.9) Eosinophils # (Auto) 0.3 TH/MM3 (0-0.4) Basophils # (Auto) 0.1 TH/MM3 (0-0.2) CBC Comment AUTO DIFF Differential Total Cells Counted 100 Neutrophils % (Manual) 83 % (16-70) Band Neutrophils % 1 % (0-6) Lymphocytes % 9 % (9-44) Monocytes % 4 % (0-8) Eosinophils % 3 % (0-4) Neutrophils # (Manual) 18.2 TH/MM3 (1.8-7.7) Differential Comment FINAL DIFF MANUAL Platelet Estimate HIGH (NORMAL) Platelet Morphology Comment ENLARGED (NORMAL) Albumin 2.2 GM/DL (3.4-5.0) Blood Gas Ventilator Setting IPAP 15 / EPAP 5 / Blood Gas Inspired Oxygen 100 % Test 09/29/16 03:00 White Blood Count 23.1 TH/MM3 (4.0-11.0) Red Blood Count 2.88 MIL/MM3 (4.50-5.90) Hemoglobin 8.8 GM/DL (13.0-17.0) Hematocrit 27.0 % (39.0-51.0) Mean Corpuscular Volume 94.0 FL (80.0-100.0) Mean Corpuscular Hemoglobin 30.4 PG (27.0-34.0) Mean Corpuscular Hemoglobin Concent 32.4 % (32.0-36.0) Red Cell Distribution Width 15.3 % (11.6-17.2) Platelet Count 444 TH/MM3 (150-450) Mean Platelet Volume 8.5 FL (7.0-11.0) Neutrophils (%) (Auto) 89.9 % (16.0-70.0) Lymphocytes (%) (Auto) 4.9 % (9.0-44.0) Monocytes (%) (Auto) 3.5 % (0.0-8.0) Eosinophils (%) (Auto) 1.4 % (0.0-4.0) Basophils (%) (Auto) 0.3 % (0.0-2.0) Neutrophils # (Auto) 20.8 TH/MM3 (1.8-7.7) Lymphocytes # (Auto) 1.1 TH/MM3 (1.0-4.8) Monocytes # (Auto) 0.8 TH/MM3 (0-0.9) Eosinophils # (Auto) 0.3 TH/MM3 (0-0.4) Basophils # (Auto) 0.1 TH/MM3 (0-0.2) CBC Comment AUTO DIFF Differential Comment AUTO DIFF CONFIRMED Platelet Estimate NORMAL (NORMAL) Platelet Morphology Comment NORMAL (NORMAL) Blood Urea Nitrogen 82 MG/DL (7-18) Creatinine 2.89 MG/DL (0.60-1.30) Random Glucose 109 MG/DL (74-106) Calcium Level 9.0 MG/DL (8.5-10.1) Phosphorus Level 4.1 MG/DL (2.5-4.9) Magnesium Level 2.2 MG/DL (1.5-2.5) Sodium Level 134 MEQ/L (136-145) Potassium Level 4.3 MEQ/L (3.5-5.1) Chloride Level 96 MEQ/L (98-107) Carbon Dioxide Level 29.4 MEQ/L (21.0-32.0) Anion Gap 9 MEQ/L (5-15) Estimat Glomerular Filtration Rate 21 ML/MIN (>89) (Lower,Ronit Henriquez [facility]) Result Diagram: 09/29/16 0300 09/29/16 0300 Microbiology Microbiology Date/Time Source Procedure Growth Status 09/28/16 15:55 Blood Other Aerobic Blood Culture Pending Received 09/28/16 15:55 Blood Other Anaerobic Blood Culture Pending Received 09/28/16 15:50 Blood Other Aerobic Blood Culture Pending Received 09/28/16 15:50 Blood Other Anaerobic Blood Culture Pending Received Imaging Last Impressions Chest X-Ray 09/29/16 0000 Signed Impressions: Service Date/Time: Thursday, September 29, 2016 01:36 - CONCLUSION: 1. Improvement in pulmonary edema pattern since September 28. No new consolidation or effusion. Amado Crain MD Chest CT 09/21/16 0000 Signed Impressions: Service Date/Time: Wednesday, September 21, 2016 22:34 - CONCLUSION: 1. Diffuse airspace opacities with ground glass appearance throughout both lungs. 2. Moderate-sized bilateral pleural effusions. 3. Ectatic and dilated descending thoracic aorta, measuring up to 5.[address] Martinez MD Head Magnetic Resonance Angiography 09/10/16 1028 Signed Impressions: Service Date/Time: Saturday, September 10, 2016 10:57 - CONCLUSION: 1. Unremarkable MRA examination without evidence for large vessel occlusion, aneurysm, or vascular malformation. Richardson Haney MD Brain MRI 09/10/16 1028 Signed Impressions: Service Date/Time: Saturday, September 10, 2016 10:57 - CONCLUSION: 1. Findings most consistent with new embolic infarcts involving both the anterior and posterior circulation. Richardson Haney MD Carotid Artery Ultrasound 09/09/16 1028 Signed Impressions: Service Date/Time: September 10:43 - CONCLUSION: 1. Moderate visible plaque without hemodynamically significant stenosis identified. No significant change from August 25. Amado Crain MD Renal Ultrasound 09/09/16 0000 Signed Impressions: Service Date/Time: September 15:41 - CONCLUSION: 1. Cortical atrophy with small bilateral renal cysts. No hydronephrosis. Amado Crain MD Head CT 09/08/16 2251 Signed Impressions: Service Date/Time: Thursday, September 08, 2016 23:41 - CONCLUSION: Stable noncontrast CT with no evidence of hemorrhage or acute infarction. Atrophy and chronic small vessel splenic changes remain. Sanya Cavazos MD . Procedures . ([facility]) Assessment and Plan Disease Oriented Problem List: (1) Hypoxemic respiratory failure, chronic (2) ANNY (acute kidney injury) (3) TIA (transient ischemic attack) (4) Acute kidney failure (5) Anemia (6) Hypoalbuminemia (7) Hypertension (8) CKD (chronic kidney disease) stage 3, GFR 30-59 ml/min (9) History of CVA (cerebrovascular accident) (10) Leukocytosis (11) Cerebrovascular accident (CVA) due to embolism (12) CAD (coronary artery disease) (13) Generalized weakness (14) Congestive heart failure (15) S/P CABG x 3 Symptom Scale: (1) Dyspnea (2) Anxiety (3) Malnutrition Pertinent Non-Medical Issues Psychosocial: , 2 adult children. Retired from the [employer]. Retired since 1979. Has lived in [place] since [address]. to his for 60+ years. Spiritual: Japanese [employer], open to spiritual visits Legal: Patient appears capacitated though with limited insight, given his fluctuating oxygenation status would recommend supported decision making involving his who would be the legal proxy if patient incapacitated. Ethical issues impacting care: None known. . Important Contacts Sarai Hartley [phone] / [phone] -work #. dtr Viola Escudero [phone] . Prognosis This patient was admitted for left-sided weakness, dyspnea on 09/08, possible TIA versus CVA. Status post CABG 2 weeks ago. Multiple chronic medical problems. Has had persistent acute renal failure which improved slightly and then worsens. Has had persistent pulmonary infiltrates, atelectasis, intubated/ extubated twice this admission. Given advanced age, multiple chronic medical conditions and current acute issues outs him at risk for further complications, setbacks, and potentially . Code Status: Full Code Plan * Legal decision maker: Patient capacity appears to be fluctuating, with limited insight, given his fluctuating oxygenation status would recommend supported decision making involving his who would be the legal proxy if patient incapacitated. * Goals: Goals unchanged. Patient verbalizes he desires to continue aggressive care however he is becoming increasingly noncompliant with utilizing the BiPAP mask and uncooperative with the nursing staff. Patient is increasingly restless , he verbalizes our treatments are not helping him, he has limited insight. Attempted to meet with the patient's at bedside twice today, she was not present in the morning or the afternoon. Patient's granddaughter at bedside, update provided. Called patient's daughter Cassidy at 1500 to provide update via telephone, no answer, message left on her voicemail. . CODE STATUS: Full code SYMPTOMS: --dyspnea-on and off of BiPAP, ventilator intubated 2, extubated 2. Now alternating between partial nonrebreather and BiPAP. Persistent worsening leukocytosis, ID following and managing antimicrobial therapy. CXR on 09/29 Improvement in pulmonary edema pattern since September 28. ` No new consolidation or effusion. --malnutrition- albumin 2.2. On and off of BiPAP, ventilator, on and off of tube feeds during those times. Limited by mouth intake due to BiPAP. May benefit from renal appropriate nutritional supplement. --anxiety-accompanies dyspnea, BiPAP, "claustrophobic", alprazolam 0.25mg q 6hr PRN for anxiety 3 doses in the past 24 hours. Palliative care will continue to follow during hospital course as condition evolves, to assist patient/decision-maker with understanding of medical conditions, weighing benefits/burdens of treatment options, for clarification of goals of treatment. Additionally will assist with any symptoms of palliative concern (Ronit Blackwood) Attestation To help prompt me to consider important information that might be impacting today's encounter and assessment, information from prior notes written by myself or my colleagues may have been "brought forward" into today's note. My signature on this note, however, is an attestation that I personally performed the exam, history, and/or decision-making noted today, and, unless otherwise indicated, the interactions with patient, family, and staff as well as the review of records all occurred today. I also attest that the listed assessment and stated plan reflect my best clinical judgment today based on the combination of historical information, prior notes, and today's exam/ interactions. When time spent is documented, it refers only to time spent today by the signer, or if indicated, combined time spent today by collaborating physician/nurse practitioner. (Ronit Blackwood) Collaborating MD Comments Dual visit ulises DELGADO. Concur with above documentation. PT seen in ICU room. Lethargic. Appropriate.Limited insight. Bipap limits conversation. Appears tachypneic, though subjectively endorses breathing "feels better". Indicates his has gone to airport to fruit or nut pick[place] family will be in later. D/w nursing, nursing will notify when present. Will follow up with when she arrives. Lungs diminished.+ on Bipap. Heart regular, no pedal edema. BS active. No peripheral edema. (Itzel Alatorre) Ronit Blackwood Sep 29, 2016 10:49 Itzel Alatorre Sep 29, 2016 12:05
--- NOTE | 2016-09-29 12:39 | HHI.IDPN ---
Note Infectious Disease Note Patient on BIPAP mask. Tachypneic. Not following commands for me. asking about patient being taken off BIPAP. Afebrile. PAST MEDICAL HISTORY 1. Coronary artery disease. 2. History of atrial fibrillation. 3. History of aortic aneurysm. 4. Bladder cancer treated with cystectomy. 5. Coronary artery bypass graft surgery. 6. Colon cancer history. 7. Peripheral vascular disease. 8. Hypertension. 9. History of transurethral resection of bladder tumor. 10.History of abdominal aortic aneurysm repair. ALLERGIES 1. SIMVASTATIN. 2. PRAVASTATIN. 3. ATORVASTATIN. ANTIBIOTICS 1. Zyvox. 2. Levaquin. OBJECTIVE: Vital Signs Date Time Temp Pulse Resp B/P (MAP) Pulse Ox O2 Delivery O2 Flow Rate FiO2 09/29/16 09:35 95 100 09/29/16 07:33 92 Partial Rebreather 15.00 09/29/16 06:00 85 09/29/16 05:00 87 30 144/78 (100) 98 09/29/16 04:00 97.4 89 35 136/66 (89) 88 09/29/16 04:00 90 09/29/16 03:12 98 BiPAP 09/29/16 02:00 85 09/29/16 01:10 96 100 09/29/16 00:00 79 09/29/16 00:00 97.9 79 24 95 BiPAP 09/28/16 22:00 78 09/28/16 20:15 96 60 09/28/16 20:00 79 09/28/16 20:00 98.2 79 27 132/68 (89) 90 09/28/16 19:00 90 Partial Non-Rebreather 15.00 09/28/16 18:00 79 09/28/16 16:00 82 09/28/16 16:00 98.0 82 28 137/72 (93) 93 09/28/16 14:00 86 Laboratory Tests Test 09/28/16 05:00 09/29/16 03:00 White Blood Count 21.7 TH/MM3 23.1 TH/MM3 Red Blood Count 2.83 MIL/MM3 2.88 MIL/MM3 Hemoglobin 8.5 GM/DL 8.8 GM/DL Hematocrit 26.2 % 27.0 % Mean Corpuscular Volume 92.8 FL 94.0 FL Mean Corpuscular Hemoglobin 30.1 PG 30.4 PG Mean Corpuscular Hemoglobin Concent 32.5 % 32.4 % Red Cell Distribution Width 15.0 % 15.3 % Platelet Count 466 TH/MM3 444 TH/MM3 Mean Platelet Volume 7.8 FL 8.5 FL Neutrophils (%) (Auto) 89.1 % 89.9 % Lymphocytes (%) (Auto) 5.6 % 4.9 % Monocytes (%) (Auto) 3.5 % 3.5 % Eosinophils (%) (Auto) 1.4 % 1.4 % Basophils (%) (Auto) 0.4 % 0.3 % Neutrophils # (Auto) 19.4 TH/MM3 20.8 TH/MM3 Lymphocytes # (Auto) 1.2 TH/MM3 1.1 TH/MM3 Monocytes # (Auto) 0.8 TH/MM3 0.8 TH/MM3 Eosinophils # (Auto) 0.3 TH/MM3 0.3 TH/MM3 Basophils # (Auto) 0.1 TH/MM3 0.1 TH/MM3 CBC Comment AUTO DIFF AUTO DIFF Differential Total Cells Counted 100 Neutrophils % (Manual) 83 % Band Neutrophils % 1 % Lymphocytes % 9 % Monocytes % 4 % Eosinophils % 3 % Neutrophils # (Manual) 18.2 TH/MM3 Differential Comment FINAL DIFF MANUAL AUTO DIFF CONFIRMED Platelet Estimate HIGH NORMAL Platelet Morphology Comment ENLARGED NORMAL Laboratory Tests Test 09/28/16 05:00 09/29/16 03:00 Blood Urea Nitrogen 76 MG/DL 82 MG/DL Creatinine 2.81 MG/DL 2.89 MG/DL Random Glucose 100 MG/DL 109 MG/DL Albumin 2.2 GM/DL Calcium Level 8.8 MG/DL 9.0 MG/DL Phosphorus Level 3.8 MG/DL 4.1 MG/DL Sodium Level 135 MEQ/L 134 MEQ/L Potassium Level 4.2 MEQ/L 4.3 MEQ/L Chloride Level 96 MEQ/L 96 MEQ/L Carbon Dioxide Level 27.9 MEQ/L 29.4 MEQ/L Anion Gap 11 MEQ/L 9 MEQ/L Estimat Glomerular Filtration Rate 22 ML/MIN 21 ML/MIN Magnesium Level 2.2 MG/DL Microbiology Date/Time Source Procedure Growth Status 09/28/16 15:55 Blood Other Aerobic Blood Culture - Preliminary NO GROWTH IN 1 DAY Resulted 09/28/16 15:55 Blood Other Anaerobic Blood Culture - Preliminary NO GROWTH IN 1 DAY Resulted 09/28/16 15:50 Blood Other Aerobic Blood Culture - Preliminary NO GROWTH IN 1 DAY Resulted 09/28/16 15:50 Blood Other Anaerobic Blood Culture - Preliminary NO GROWTH IN 1 DAY Resulted IMAGING: Chest X-Ray 09/29/16 0000 Signed Impressions: Service Date/Time: Thursday, September 29, 2016 01:36 - CONCLUSION: 1. Improvement in pulmonary edema pattern since September 28. No new consolidation or effusion. Amado Crain MD Chest X-Ray 09/23/16 0000 Signed Impressions: Service Date/Time: September 08:16 - CONCLUSION: 1. Multiple tubes and lines are in good positions. 2. Bilateral pulmonary infiltrates are unchanged compared to the previous examination. Jeffrey Mohan MD Chest CT 09/21/16 0000 Signed Impressions: Service Date/Time: Wednesday, September 21, 2016 22:34 - CONCLUSION: 1. Diffuse airspace opacities with ground glass appearance throughout both lungs. 2. Moderate-sized bilateral pleural effusions. 3. Ectatic and dilated descending thoracic aorta, measuring up to 5.[address] Martinez MD Head Magnetic Resonance Angiography 09/10/16 1028 Signed Impressions: Service Date/Time: Saturday, September 10, 2016 10:57 - CONCLUSION: 1. Unremarkable MRA examination without evidence for large vessel occlusion, aneurysm, or vascular malformation. Richardson Haney MD Brain MRI 09/10/16 1028 Signed Impressions: Service Date/Time: Saturday, September 10, 2016 10:57 - CONCLUSION: 1. Findings most consistent with new embolic infarcts involving both the anterior and posterior circulation. Richardson Haney MD Carotid Artery Ultrasound 09/09/16 1028 Signed Impressions: Service Date/Time: September 10:43 - CONCLUSION: 1. Moderate visible plaque without hemodynamically significant stenosis identified. No significant change from August 25. Amado Crain MD Renal Ultrasound 09/09/16 0000 Signed Impressions: Service Date/Time: September 15:41 - CONCLUSION: 1. Cortical atrophy with small bilateral renal cysts. No hydronephrosis. Amado Crain MD Head CT 09/08/16 2251 Signed Impressions: Service Date/Time: Thursday, September 08, 2016 23:41 - CONCLUSION: Stable noncontrast CT with no evidence of hemorrhage or acute infarction. Atrophy and chronic small vessel splenic changes remain. Sanya Cavazos MD PHYSICAL EXAMINATION GENERAL: No acute distress. HEENT: Sclera is non-icteric. Oropharynx mucosa moist. NECK: No swelling or adenopathy. LUNGS: Decreased breath sounds. HEART: Nl S1S2, No audible murmur, rub or gallop. ABDOMEN: Bowel sounds present. Soft. No tenderness. EXTREMITIES: No clubbing, no cyanosis. no edema. SKIN: No diffuse rash. NEUROLOGIC: Non focal. PSYCH: Calm and cooperative. IMPRESSION 1. Acute respiratory failure. 2. Bilateral lung infiltrates, probable HCAP pneumonia. CXR better. 3. Leukocytosis. WBC still elevated. RECOMMENDATIONS Continue Meropenem. Continue PO Zyvox. Continue PO Levaquin. Sputum culture repeat when feasible. Monitor WBC. Sae Nova MD Sep 29, 2016 12:39
[2016-09-29 13:52] LABS: BLOOD GAS BASE EXCESS 2.4 mmol/L (-2-2); BLOOD GAS CARBOXYHEMOGLOBIN 1.7 % (0-4); BLOOD GAS HCO3 27 mmol/L (22-26); BLOOD GAS METHEMOGLOBIN 0.8 % (0-2); BLOOD GAS O2 HGB SATURATION 93 % (90-100); BLOOD GAS PCO2 43 mmHg (38-42); BLOOD GAS PO2 76 mmHg (61-120); BLOOD GAS TOTAL HGB 9.1 G/DL (12.0-16.0); CRITICAL VALUE NO; DRAW SITE LT RADIAL; FIO2 80 %; NUMBER OF ARTERIAL PUNCTURES 1; OXYGEN DEVICE BiPAP; TEMP CORR TO 98.6; ULNAR PULSE PRESENT; VENT SETTINGS IPAP15/EPAP5
[2016-09-29 13:53] LABS: STAT NO
[2016-09-29] MEDS ORDERED: FUROSEMIDE 40 MG/4 ML VIAL IV PUSH ONE (14:00)
--- NOTE | 2016-09-29 14:13 | PD.CARD.PN ---
Subjective Subjective Remarks The patient is has increased work of breathing. Taken off BIPAP last night to nonbreather. Transitioned back to BIPAP. Lasix recently decreased. I/O maintained net balance daily. WBC upward trend. ABX spectrum increased yesterday. CXR bilateral infiltrates (Elin Kwok) Objective Medications Current Medications Medications (Trade) Dose Ordered Sig/Awilda Route Start Time Stop Time Status Last Admin (NS Flush) 2 ml UNSCH PRN IV FLUSH 09/09/16 00:45 (NS Flush) 2 ml BID IV FLUSH 09/09/16 09:00 09/29/16 09:12 (Narcan Inj) 0.4 mg UNSCH PRN IV 09/09/16 00:45 (Xanax) 0.25 mg Q6H PRN PO 09/09/16 13:45 09/29/16 01:59 (Pill Splitter) 1 ea UNSCH PRN OTHER 09/09/16 14:00 (Eliquis) 5 mg BID PO 09/10/16 09:00 09/29/16 09:11 (Catapres) 0.1 mg Q6H PRN PO 09/11/16 14:30 09/19/16 23:02 (Lopressor Inj) 5 mg Q2HR PRN IV PUSH 09/16/16 14:00 09/26/16 05:00 (Apresoline Inj) 10 mg Q6HR PRN IV PUSH 09/16/16 12:45 09/27/16 01:50 (Peridex 0.12% Liq) 15 ml BID@08,20 MT 09/16/16 20:00 09/26/16 20:00 (Racepinephrine 2.25% Neb) 0.5 ml Q1HR NEB PRN NEB 09/17/16 17:15 09/17/16 18:02 (Anne-Colace) 1 tab BID PO 09/19/16 21:00 09/29/16 09:11 (Milk Of Magnesia Liq) 30 ml Q12H PRN PO 09/19/16 13:30 09/19/16 13:30 (Senokot) 17.2 mg Q12H PRN PO 09/19/16 13:30 (Dulcolax Supp) 10 mg DAILY PRN RECTAL 09/19/16 13:30 (Lactulose Liq) 30 ml DAILY PRN PO 09/19/16 13:30 (Trandate) 100 mg TID PO 09/20/16 13:00 09/28/16 17:22 (Pepcid) 10 mg DAILY PO 09/21/16 09:00 09/29/16 09:11 (Albuterol Neb) 2.5 mg Q2HR NEB PRN NEB 09/21/16 12:00 09/29/16 00:54 (Phoslo) 667 mg TID PO 09/21/16 18:00 09/29/16 09:11 (Peridex 0.12% Liq) 15 ml BID@08,20 MT 09/22/16 20:00 09/29/16 08:00 (Cordarone) 200 mg DAILY PO 09/28/16 21:00 09/29/16 09:11 (Zyvox) 600 mg Q12HR PO 09/27/16 21:00 09/29/16 09:11 (Levaquin) 750 mg Q48H PO 09/27/16 20:00 09/27/16 20:48 Meropenem 500 mg/ Sodium Chloride 100 ml @ 200 mls/hr Q12H IV 09/28/16 12:00 09/29/16 12:38 (Lasix Inj) 20 mg DAILY IV PUSH 09/29/16 09:00 09/29/16 09:10 (Deltasone) 30 mg DAILY PO 09/29/16 09:00 09/29/16 09:11 (Lasix Inj) 40 mg ONCE ONCE IV PUSH 09/29/16 13:45 09/29/16 13:46 UNV Vital Signs / I&O Vital Signs Date Time Temp Pulse Resp B/P (MAP) Pulse Ox O2 Delivery O2 Flow Rate FiO2 09/29/16 12:00 92 09/29/16 12:00 98.3 92 49 151/70 (97) 97 09/29/16 10:00 92 09/29/16 09:35 95 100 09/29/16 08:00 82 09/29/16 08:00 98.2 82 24 123/64 (83) 91 09/29/16 07:33 92 Partial Rebreather 15.00 09/29/16 07:00 94 Bi-Pap 15.00 100 09/29/16 06:00 85 09/29/16 05:00 87 30 144/78 (100) 98 09/29/16 04:00 97.4 89 35 136/66 (89) 88 09/29/16 04:00 90 09/29/16 03:12 98 BiPAP 09/29/16 02:00 85 09/29/16 01:10 96 100 09/29/16 00:00 79 09/29/16 00:00 97.9 79 24 130/67 (88) 91 09/28/16 23:56 91 Partial Rebreather 09/28/16 22:15 95 BiPAP 09/28/16 22:00 78 09/28/16 20:15 96 60 09/28/16 20:00 79 09/28/16 20:00 98.2 79 27 132/68 (89) 90 09/28/16 19:00 90 Partial Non-Rebreather 15.00 09/28/16 18:00 79 09/28/16 16:00 82 09/28/16 16:00 98.0 82 28 137/72 (93) 93 09/28/16 14:00 86 I/O 09/28/16 09/28/16 09/28/16 09/29/16 09/29/16 09/29/16 07:00 15:00 23:00 07:00 15:00 23:00 Intake Total 120 ml 100 ml 720 ml 60 ml Output Total 601 ml 950 ml 550 ml Balance -481 ml 100 ml -230 ml -490 ml Intake Oral 120 ml 720 ml 60 ml IV Total 100 ml Output Urine Total 600 ml 950 ml 550 ml Stool Total 1 ml 0 ml # Bowel Movements 0 Physical Exam GENERAL: Elderly male, a bedside SKIN: Warm and dry. HEAD: Normocephalic. EYES: No scleral icterus. No injection or drainage. NECK: Supple, trachea midline CARDIOVASCULAR: Midline incision healing well, reg rate and rhythm RESPIRATORY: on BIPAP GASTROINTESTINAL: Abdomen soft, non-tender, nondistended. MUSCULOSKELETAL: No cyanosis, no BLE edema BACK: Nontender without obvious deformity. Laboratory Laboratory Tests Test 09/29/16 02:32 09/29/16 03:00 09/29/16 13:38 Blood Gas Puncture Site RT RADIAL LT RADIAL Blood Gas Patient Temperature 98.6 98.6 Blood Gas HCO3 27 mmol/L 27 mmol/L Blood Gas Base Excess 2.9 mmol/L 2.4 mmol/L Blood Gas Oxygen Saturation 98 % 93 % Arterial Blood pH 7.42 7.41 Arterial Blood Partial Pressure CO2 42 mmHg 43 mmHg Arterial Blood Partial Pressure O2 256 mmHg 76 mmHg Arterial Blood Oxygen Content 12.5 Vol % 12.0 Vol % Arterial Blood Carboxyhemoglobin 1.6 % 1.7 % Arterial Blood Methemoglobin 0.9 % 0.8 % Blood Gas Hemoglobin 8.7 G/DL 9.1 G/DL Oxygen Delivery Device BIPAP BiPAP Blood Gas Ventilator Setting IPAP 15 / EPAP 5 / IPAP15/EPAP5 Blood Gas Inspired Oxygen 100 % 80 % White Blood Count 23.1 TH/MM3 Red Blood Count 2.88 MIL/MM3 Hemoglobin 8.8 GM/DL Hematocrit 27.0 % Mean Corpuscular Volume 94.0 FL Mean Corpuscular Hemoglobin 30.4 PG Mean Corpuscular Hemoglobin Concent 32.4 % Red Cell Distribution Width 15.3 % Platelet Count 444 TH/MM3 Mean Platelet Volume 8.5 FL Neutrophils (%) (Auto) 89.9 % Lymphocytes (%) (Auto) 4.9 % Monocytes (%) (Auto) 3.5 % Eosinophils (%) (Auto) 1.4 % Basophils (%) (Auto) 0.3 % Neutrophils # (Auto) 20.8 TH/MM3 Lymphocytes # (Auto) 1.1 TH/MM3 Monocytes # (Auto) 0.8 TH/MM3 Eosinophils # (Auto) 0.3 TH/MM3 Basophils # (Auto) 0.1 TH/MM3 CBC Comment AUTO DIFF Differential Comment AUTO DIFF CONFIRMED Platelet Estimate NORMAL Platelet Morphology Comment NORMAL Blood Urea Nitrogen 82 MG/DL Creatinine 2.89 MG/DL Random Glucose 109 MG/DL Calcium Level 9.0 MG/DL Phosphorus Level 4.1 MG/DL Magnesium Level 2.2 MG/DL Sodium Level 134 MEQ/L Potassium Level 4.3 MEQ/L Chloride Level 96 MEQ/L Carbon Dioxide Level 29.4 MEQ/L Anion Gap 9 MEQ/L Estimat Glomerular Filtration Rate 21 ML/MIN Imaging Last 72 hours Impressions Chest X-Ray 09/29/16 0000 Signed Impressions: Service Date/Time: Thursday, September 29, 2016 01:36 - CONCLUSION: 1. Improvement in pulmonary edema pattern since September 28. No new consolidation or effusion. Amado Crain MD Chest X-Ray 09/28/16 0000 Signed Impressions: Service Date/Time: Wednesday, September 28, 2016 11:27 - CONCLUSION: Stable examination. Ajay Prabhakar MD Chest X-Ray 09/27/16 0000 Signed Impressions: Service Date/Time: Tuesday, September 27, 2016 13:11 - CONCLUSION: Worsening bilateral airspace disease. Jacob Trujillo MD (Elin Kwok) Assessment and Plan Assessment and Plan Recurrent acute hypoxic respiratory failure requiring ventilator support. Chest pain, troponin elevated likely due to CKD and had recent NSTEMI on admission Atrial fibrillation with CVA and TIAs. 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 PLAN: Agree with increased diuresis Obtain sputum cultures Cannot exclude amiodarone toxicity if objective workup does not support pneumonia or fluid overload. Continue amio, Labetalol, Eliquis. Intolerant of metoprolol due to hallucinations. Will hold off resuming ASA for now due to critical illness and increased GI risk. He has been intolerant of multiple statins in the past. Will consider resuming therapy once the patient stabilizes. SBP goal < 130 DBP goal < 90. Continue Labetalol with hold parameters The patient was seen and evaluated by Dr. Moran who completed a [id number] encounter, completed a physical exam and participated in evaluation and management. (Elin Kwok) Assessment and Plan The exam, history, and the medical decision-making described in the above note were completed with the assistance of the mid-level provider. I reviewed and agree with the findings presented. I attest that I had a [id number] encounter with the patient on the same day, and personally performed and documented my assessment and findings in the medical record. (Suellen Moran MD) Elin Kwok Sep 29, 2016 14:13 Suellen Moran MD Sep 29, 2016 15:19
--- NOTE | 2016-09-29 15:24 | MB ---
cc: CECE ZAMORA DATE OF CONSULTATION: 09/29/2016 DATE OF : 1940 HISTORY OF PRESENT ILLNESS A 75-year-old patient known to our service who had undergone coronary artery bypass graft x2 on August 23, 2016. 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 He had some intermittent confusion, some transient left-sided weakness which resolved the day after surgery. He was then discharged on Eliquis at 2.5 mg due to his age and GFR. They did do a brain MRI on August 29 which showed a multifocal bilateral acute infarcts, suspect embolic etiology. The patient then re-presented with an acute TIA and also acute kidney injury. He felt like he was having another stroke with right hand weakness. His head CT showed no evidence for hemorrhage or acute infarct. Neurology was consulted and there was question of anticoagulation choice as the patient had TIA while on Eliquis. He was admitted with acute kidney failure with creatinine of 3.6, baseline 1.5. During the course of his admission he had worsening pulmonary failure requiring BiPAP, worsening breathing and metabolic acidosis. The patient was intubated on the and then extubated four days later, then back on a partial non-rebreather, now back on BiPAP at 90% FIO2. We were courtesy consulted at this time. The patient has also developed hospital-acquired pneumonia and is on antibiotic therapy, has some anemia. He has also had a palliative care consult. PAST MEDICAL HISTORY 1. Coronary artery disease, status post coronary artery bypass graft x3 August 23, 2016. 2. CVA following his bypass surgery. 3. Hypertension. 4. Hyperlipidemia. 5. History of atrial fibrillation. 6. History of colon cancer with resection. 7. Bladder cancer post TURP. 8. Abdominal aortic aneurysm repair. 9. Atrial ablation. 10.Right carotid endarterectomy. ALLERGIES 1. ATORVASTATIN. 2. SIMVASTATIN. MEDICATIONS Home meds include: 1. Eliquis. 2. Metoprolol. 3. Aspirin. 4. Oxycodone. 5. Xanax. 6. Docusate. 7. Multivitamin. REVIEW OF SYSTEMS Unobtainable. The patient is currently on 90% FIO2 on a BiPAP mask. He is currently not in pain. PHYSICAL EXAMINATION VITAL SIGNS: Blood pressure 150/70, heart rate 92, afebrile. O2 97% on 100% FIO2. GENERAL: The patient is awake. He has been removing the BiPAP periodically. HEENT: Head is normocephalic, atraumatic. Pupils are equal and reactive. The BiPAP mask is in place. NECK: Supple. No JVD. HEART: Heart sounds S1, S2. Regular rate and rhythm. No audible rubs or gallops. LUNGS: He has some coarse breath sounds. No wheezing or rhonchi. ABDOMEN: Soft, nontender. No masses or organomegaly. EXTREMITIES: No cyanosis, clubbing or edema. SKIN: His sternal incision is well-healed and approximated. LABORATORY Hemoglobin 8.8, hematocrit 27, white cell count 23, platelet count 444. Sodium 134, potassium 4.3, BUN 82, creatinine 2.89, magnesium level 2.2. Hepatitis B and hepatitis C are negative. RPR is nonreactive. Micro shows no growth in blood cultures from the and also no growth from the . IMAGING Radiological exam today shows chest x-ray with improved pulmonary edema, no consolidation. ECHOCARDIOGRAM Echocardiogram on the did show an EF of 65-70%. Moderate pulmonary hypertension with 50-60 mmHg. No aortic valve stenosis or aortic insufficiency. The mitral valve had some trace mitral valve regurgitation, some mild LVH. IMPRESSION AND RECOMMENDATIONS This is a 75-year-old male known to our service, status post history of coronary artery disease, bypass graft x3 August 23, 2016. Also history of atrial fibrillation and was placed back on Eliquis. He did have a TIA post surgery that had resolved but then re-admitted with right-sided weakness, also respiratory failure, pulmonary edema, healthcare-acquired pneumonia. At this time recommend medical management. No surgical intervention. Will follow on the periphery. The patient again will also be evaluated by Dr. Cece Zamora. Dictated by: MAURO Thrasher MD LORENZO Navarrete/PEARL /1:47 PM /3:20 PM
--- NOTE | 2016-09-29 17:08 | HHI.NPPN ---
Subjective History of Present Illness The patient is a 75 yo [place] male who presented to this facility 09/08 with complaints of R hand weakness. He was here at this facility just 10 days ago for 4-vessel CABG, discharged on 08/29. While undergoing CABG, he suffered a stroke and came in today as he was concerned he was having another. Was having no other neurological issues. We were consulted for acute renal failure. Presenting SCr of 3.65 that has worsened significantly from discharge on 08/29 at 1.53. Appears baseline renal function 1.2-1.6 according to previous records. States he has been at his usual state of health since his hospital discharge besides R hand weakness that resolved on its own while here in the ED. Denies any NVD. No NSAIDs. Denies any urinary issues. Review of previous imaging (namely CTA on 08/24) showed a L sided hydronephrosis extending to UVJ. THe patient was unaware of this. He has hx of bladder CA that was treated by surgical resection at [facility] about 1 year ago. Scheduled for f/u there in 1 month. CTA also revealed abdominal aneurysm that vascular surgery was consulted about and was supposed to have f/u as outpatient. Interval History Pt states he is feeling well. Was on BiPAP for a good portion of last night and says "he feels worse" on it. Now on partial non-rebreather and says he feeling well despite O2 sats in the upper 80s. (Radha Hagen) Review of Systems Respiratory Lungs: SOB (Radha Hagen) Objective Data Data 09/29/16 09/30/16 18:59 06:59 Intake Total 100 ml Balance 100 ml IV Total 100 ml Vital Signs Date Time Temp Pulse Resp B/P (MAP) Pulse Ox O2 Delivery O2 Flow Rate FiO2 09/29/16 14:00 96 09/29/16 12:00 92 09/29/16 12:00 98.3 92 49 151/70 (97) 97 09/29/16 10:00 92 09/29/16 09:35 95 100 09/29/16 08:00 82 09/29/16 08:00 98.2 82 24 123/64 (83) 91 09/29/16 07:33 92 Partial Rebreather 15.00 09/29/16 07:00 94 Bi-Pap 15.00 100 09/29/16 06:00 85 09/29/16 05:00 87 30 144/78 (100) 98 09/29/16 04:00 97.4 89 35 136/66 (89) 88 09/29/16 04:00 90 09/29/16 03:12 98 BiPAP 09/29/16 02:00 85 09/29/16 01:10 96 100 09/29/16 00:00 79 09/29/16 00:00 97.9 79 24 130/67 (88) 91 09/28/16 23:56 91 Partial Rebreather 09/28/16 22:15 95 BiPAP 09/28/16 22:00 78 09/28/16 20:15 96 60 09/28/16 20:00 79 09/28/16 20:00 98.2 79 27 132/68 (89) 90 09/28/16 19:00 90 Partial Non-Rebreather 15.00 09/28/16 18:00 79 (Radha Hagen) -: 09/29/16 0300 09/29/16 0300 Imaging Last Impressions Chest X-Ray 09/29/16 0000 Signed Impressions: Service Date/Time: Thursday, September 29, 2016 01:36 - CONCLUSION: 1. Improvement in pulmonary edema pattern since September 28. No new consolidation or effusion. Amado Crain MD Chest CT 09/21/16 0000 Signed Impressions: Service Date/Time: Wednesday, September 21, 2016 22:34 - CONCLUSION: 1. Diffuse airspace opacities with ground glass appearance throughout both lungs. 2. Moderate-sized bilateral pleural effusions. 3. Ectatic and dilated descending thoracic aorta, measuring up to 5.[address] Martinez MD Head Magnetic Resonance Angiography 09/10/16 1028 Signed Impressions: Service Date/Time: Saturday, September 10, 2016 10:57 - CONCLUSION: 1. Unremarkable MRA examination without evidence for large vessel occlusion, aneurysm, or vascular malformation. Richardson Haney MD Brain MRI 09/10/16 1028 Signed Impressions: Service Date/Time: Saturday, September 10, 2016 10:57 - CONCLUSION: 1. Findings most consistent with new embolic infarcts involving both the anterior and posterior circulation. Richardson Haney MD Carotid Artery Ultrasound 09/09/16 1028 Signed Impressions: Service Date/Time: September 10:43 - CONCLUSION: 1. Moderate visible plaque without hemodynamically significant stenosis identified. No significant change from August 25. Amado Crain MD Renal Ultrasound 09/09/16 0000 Signed Impressions: Service Date/Time: September 15:41 - CONCLUSION: 1. Cortical atrophy with small bilateral renal cysts. No hydronephrosis. Amado Crain MD Head CT 09/08/16 2251 Signed Impressions: Service Date/Time: Thursday, September 08, 2016 23:41 - CONCLUSION: Stable noncontrast CT with no evidence of hemorrhage or acute infarction. Atrophy and chronic small vessel splenic changes remain. Sanya Cavazos MD Medication Review Current Medications Medications (Trade) Dose Ordered Sig/Awilda Route Start Time Stop Time Status Last Admin (NS Flush) 2 ml UNSCH PRN IV FLUSH 09/09/16 00:45 (NS Flush) 2 ml BID IV FLUSH 09/09/16 09:00 09/29/16 09:12 (Narcan Inj) 0.4 mg UNSCH PRN IV 09/09/16 00:45 (Xanax) 0.25 mg Q6H PRN PO 09/09/16 13:45 09/29/16 01:59 (Pill Splitter) 1 ea UNSCH PRN OTHER 09/09/16 14:00 (Eliquis) 5 mg BID PO 09/10/16 09:00 09/29/16 09:11 (Catapres) 0.1 mg Q6H PRN PO 09/11/16 14:30 09/19/16 23:02 (Lopressor Inj) 5 mg Q2HR PRN IV PUSH 09/16/16 14:00 09/26/16 05:00 (Apresoline Inj) 10 mg Q6HR PRN IV PUSH 09/16/16 12:45 09/27/16 01:50 (Peridex 0.12% Liq) 15 ml BID@08,20 MT 09/16/16 20:00 09/26/16 20:00 (Racepinephrine 2.25% Neb) 0.5 ml Q1HR NEB PRN NEB 09/17/16 17:15 09/17/16 18:02 (Anne-Colace) 1 tab BID PO 09/19/16 21:00 09/29/16 09:11 (Milk Of Magnesia Liq) 30 ml Q12H PRN PO 09/19/16 13:30 09/19/16 13:30 (Senokot) 17.2 mg Q12H PRN PO 09/19/16 13:30 (Dulcolax Supp) 10 mg DAILY PRN RECTAL 09/19/16 13:30 (Lactulose Liq) 30 ml DAILY PRN PO 09/19/16 13:30 (Trandate) 100 mg TID PO 09/20/16 13:00 09/28/16 17:22 (Pepcid) 10 mg DAILY PO 09/21/16 09:00 09/29/16 09:11 (Albuterol Neb) 2.5 mg Q2HR NEB PRN NEB 09/21/16 12:00 09/29/16 00:54 (Phoslo) 667 mg TID PO 09/21/16 18:00 09/29/16 09:11 (Peridex 0.12% Liq) 15 ml BID@08,20 MT 09/22/16 20:00 09/29/16 08:00 (Cordarone) 200 mg DAILY PO 09/28/16 21:00 09/29/16 09:11 (Zyvox) 600 mg Q12HR PO 09/27/16 21:00 09/29/16 09:11 (Levaquin) 750 mg Q48H PO 09/27/16 20:00 09/27/16 20:48 Meropenem 500 mg/ Sodium Chloride 100 ml @ 200 mls/hr Q12H IV 09/28/16 12:00 09/29/16 12:38 (Lasix Inj) 20 mg DAILY IV PUSH 09/29/16 09:00 09/29/16 09:10 (Deltasone) 30 mg DAILY PO 09/29/16 09:00 09/29/16 09:11 (Radha Hagen) Physical Exam General Appearance: No Acute Distress (Radha Hagen) Eyes Eye Exam: Sclera White (Radha Hagen) Pulmonary Resp Exam: Breath Sounds Equal, No Distress, Diminished Breath Sounds (Radha Hagen) Cardiology CV Exam: Normal Sinus Rhythm, Irregular (Radha Hagen) Gastrointestinal/Abdomen GI Exam: Soft, Non-Tender (Radha Hagen) Integumentary Skin Exam: Clear, Warm (Radha Hagen) Extremeties Extremities Exam: No Edema (Radha Hagen) Neurologic Neuro Exam: Awake (Radha Hagen) Assessment/Plan Discussed Condition With: Patient Problem List: (1) Acute kidney failure ICD Codes: N17.9 - Acute kidney failure, unspecified Status: Acute Plan: Differential diagnosis at this point as far as acute renal insufficiency is concerned would be atheroembolic disease occurring during previous admission with subsequent decline in renal function and a lesser consideration towards interstitial nephritis possibly related to Protonix. Renal functions stable x2 days, but noted a decline since resumption of IV Lasix. No significant edema on exam. Would recommend changing IV Lasix to po, but will defer to pulmonary. No family present on exam, but the patient is still showing little insight into the severity of renal decline and overall prognosis. States that he wishes "the doctor that did my open heart to take care of everything from now on." When I directly asked if he wanted nephrology to step aside, he said no that he wants us to continue to see him. Recommend avoidance of Protonix in the future without kidney biopsy to confirm or eliminate incision nephritis. Medications should be adjusted for the patient's renal decline. Avoid nephrotoxic medications including NSAIDs and iodinated contrast dyes. Gadolinium should be avoided as eGFR 30. (2) Chronic kidney disease, stage I ICD Codes: N18.1 - Chronic kidney disease, stage 1 Plan: Able to obtain labs from his outpatient PCP and most recent SCr 0.7 from April 2016 He did have evidence of proteinuria predating admission (3) Hypoxemic respiratory failure, chronic ICD Codes: J96.11 - Chronic respiratory failure with hypoxia Status: Acute Plan: Pt s/p extubation, but not tolerating Bi-PAP. Sats in upper 80s to 90s on NC. (4) TIA (transient ischemic attack) ICD Codes: G45.9 - Transient cerebral ischemic attack, unspecified Status: Acute (5) Hypertension ICD Codes: I10 - Essential (primary) hypertension Status: Acute (6) CAD (coronary artery disease) ICD Codes: I25.10 - Atherosclerotic heart disease of ute coronary artery without angina pectoris Status: Chronic (7) Congestive heart failure ICD Codes: I50.9 - Heart failure, unspecified Status: Acute Plan: Compensated currently. (8) Anemia ICD Codes: D64.9 - Anemia, unspecified Status: Acute Plan: Of acute illness. (Radha Hagen) Plan The exam, history, and the medical decision-making described in the above note were completed with the assistance of the PA-Ursula. I reviewed and agree with the findings presented. (Liv Cerda MD) Problem Qualifiers (1) TIA (transient ischemic attack): Radha Hagen Sep 29, 2016 17:08 Liv Cerda MD Sep 30, 2016 17:18
--- NOTE | 2016-09-29 17:49 | HHI.CCPN ---
Subjective Remarks/Hospital Course 75 y/o man now about 4 weeks following CABG complicated by CVA. Presented back 08/28 with new onset right arm weakness. Hospital course has been complicated by CKD and fluid overload. We have attempted BiPAP for several hours but he remains in distress and although oxygenation is acceptable work of breathing is excessive. Worrisome increasing metabolic acidosis. 09/17: Gas exchange much improved. BNP 1681, ScVO2 71%. It appears that cardiac output is more than adequate for peripheral needs and the primary pathology is renal failure and fluid overload. If we can manage volume I can probably get him extubated. 09/18: Diffuse crackles. Needs to be diuresed today. Tolerating extubation but at risk for hypoxemic failure again. 09/20 - Re consulted due to worsening hypoxia. Currently on nonrebreather mask. Chest x-ray shows worsening consolidation right lobe creatinine slightly improved over. Family request transfer to [facility] however refused. We'll attempt to decipher status currently unknown. 09/21: Remains on nonrebreather mask. Saturations between 89-97%. Chest x-ray unchanged. Not tachypnea. Not confused. 09/22: Radiographic studies show diffuse interstitial process with skip areas - more indicative of infectious/inflammatory process. Sats 85% with labored pattern. Required intubation for deteriorating respiratory status. 09/23: Gas exchange improving. Pulmonary infiltrates remain very concerning - if most recent sputum is benign I would not be opposed to steroids. 09/24: Extubated today. On 3 L nasal cannula. Passed swallow evaluation. Appropriate interactive status post extubation. Subjective 09/29: Critical care reconsult requested by Dr. Meza for respiratory failure. Patient reportedly was on BiPAP this morning. He was given additional diuretic earlier as he was short of breath. With this he seems to have improved somewhat and has been on a nonrebreather facemask for more than a few hours. He states that he is breathing much better. Patient being adamant about not using BiPAP. I had a detailed conversation about the importance of using BiPAP especially at night in view of his history of sleep apnea. Patient did not appear to be in acute distress though he was requiring a nonrebreather facemask at the time of my evaluation. No urgent need for BiPAP or intubation at this time. In fact patient is stating that he is breathing much better than this morning. Objective Vital Signs Date Time Temp Pulse Resp B/P (MAP) Pulse Ox O2 Delivery O2 Flow Rate FiO2 09/29/16 14:00 96 09/29/16 12:00 98.3 49 151/70 (97) 97 09/29/16 09:35 100 09/29/16 07:33 Partial Rebreather 15.00 Intake and Output 09/29/16 09/29/16 09/30/16 08:00 16:00 00:00 Intake Total 60 ml 100 ml Output Total 550 ml Balance -490 ml 100 ml Result Diagram: 09/29/16 0300 09/29/16 0300 Other Results Laboratory Tests Test 09/29/16 02:32 09/29/16 13:38 Blood Gas Puncture Site RT RADIAL LT RADIAL Blood Gas Patient Temperature 98.6 98.6 Blood Gas HCO3 27 mmol/L (22-26) 27 mmol/L (22-26) Blood Gas Base Excess 2.9 mmol/L (-2-2) 2.4 mmol/L (-2-2) Blood Gas Oxygen Saturation 98 % (90-100) 93 % (90-100) Arterial Blood pH 7.42 (7.380-7.420) 7.41 (7.380-7.420) Arterial Blood Partial Pressure CO2 42 mmHg (38-42) 43 mmHg (38-42) Arterial Blood Partial Pressure O2 256 mmHg (61-120) 76 mmHg (61-120) Arterial Blood Oxygen Content 12.5 Vol % (12.0-20.0) 12.0 Vol % (12.0-20.0) Arterial Blood Carboxyhemoglobin 1.6 % (0-4) 1.7 % (0-4) Arterial Blood Methemoglobin 0.9 % (0-2) 0.8 % (0-2) Blood Gas Hemoglobin 8.7 G/DL (12.0-16.0) 9.1 G/DL (12.0-16.0) Oxygen Delivery Device BIPAP BiPAP Blood Gas Ventilator Setting IPAP 15 / EPAP 5 / IPAP15/EPAP5 Blood Gas Inspired Oxygen 100 % 80 % Imaging Last 24 hours Impressions Chest X-Ray 09/29/16 0000 Signed Impressions: Service Date/Time: Thursday, September 29, 2016 01:36 - CONCLUSION: 1. Improvement in pulmonary edema pattern since September 28. No new consolidation or effusion. Amado Crain MD Last Impressions Chest X-Ray 09/23/16 0000 Signed Impressions: Service Date/Time: September 08:16 - CONCLUSION: 1. Multiple tubes and lines are in good positions. 2. Bilateral pulmonary infiltrates are unchanged compared to the previous examination. Jeffrey Mohan MD Chest CT 09/21/16 0000 Signed Impressions: Service Date/Time: Wednesday, September 21, 2016 22:34 - CONCLUSION: 1. Diffuse airspace opacities with ground glass appearance throughout both lungs. 2. Moderate-sized bilateral pleural effusions. 3. Ectatic and dilated descending thoracic aorta, measuring up to 5.[address] Martinez MD Head Magnetic Resonance Angiography 09/10/16 1028 Signed Impressions: Service Date/Time: Saturday, September 10, 2016 10:57 - CONCLUSION: 1. Unremarkable MRA examination without evidence for large vessel occlusion, aneurysm, or vascular malformation. Richardson Haney MD Brain MRI 09/10/16 1028 Signed Impressions: Service Date/Time: Saturday, September 10, 2016 10:57 - CONCLUSION: 1. Findings most consistent with new embolic infarcts involving both the anterior and posterior circulation. Richardson Haney MD Carotid Artery Ultrasound 09/09/16 1028 Signed Impressions: Service Date/Time: September 10:43 - CONCLUSION: 1. Moderate visible plaque without hemodynamically significant stenosis identified. No significant change from August 25. Amado Crain MD Renal Ultrasound 09/09/16 0000 Signed Impressions: Service Date/Time: September 15:41 - CONCLUSION: 1. Cortical atrophy with small bilateral renal cysts. No hydronephrosis. Amado Crain MD Head CT 09/08/16 2251 Signed Impressions: Service Date/Time: Thursday, September 08, 2016 23:41 - CONCLUSION: Stable noncontrast CT with no evidence of hemorrhage or acute infarction. Atrophy and chronic small vessel splenic changes remain. Sanya Cavazos MD Objective Remarks GENERAL: 75-year-old male resting in bed on nonrebreather facemask with O2 sat 95% SKIN: Warm and dry. HEAD: Atraumatic. Normocephalic. NECK: Trachea midline. No thyromegaly CARDIOVASCULAR: IRR. S1, S2 no S4. Without murmur RESPIRATORY: Air entry decreased bilaterally at bases, scattered rhonchi, no wheezing. GASTROINTESTINAL: Abdomen soft, non-tender, nondistended. No guarding. BS active. MUSCULOSKELETAL: Extremities with trace to 1+ lower extremity edema. No obvious deformities. Well perfused. NEUROLOGICAL: Awake alert oriented 3 Strength is equal and symmetric bilaterally. 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 Jeffries/neurology. Currently in Xanax 0.25 mg every 6 hours. Anxiety CV: Coronary disease CABG ASCVD Carotid stenosis TAAA Hypertension dyslipidemia History atrial fibrillation status post ablation 2011 Followed by cardiology. Currently on clonidine when necessary. Diuresed. Currently off atorvastatin 40 mg daily/home medication On by mouth Eliquis and amiodarone per cardiology Echocardiogram revealed EF 70%. OHS septal motion./Paradoxical, CARA 50-60 mmHg Resp: Acute hypoxemic respiratory failure Off BiPAP currently on nonrebreather facemask. Recommend continuing BiPAP at night in view of history of sleep apnea. Incentive spirometry while awake Extubated 09/23 Chest x-ray 09/21 reveals consolidation right upper, middle and lower lobes. Bronchodilator therapy every 6 hours and as indicated GI: Advance diet as tolerated/renal diet On famotidine 10 mg by mouth daily /renal: History of hydroureter Renal ultrasound Revealed no hydronephrosis Currently on sodium bicarbonate 650 every 8 on with PhosLo 667 3 times a day Diuretics held. On prednisone daily per Dr. Cerda Creatinine elevated but decreasing decreased 3.21 currently Endo: Sliding scale insulin if indicated Renal: Acute on chronic kidney injury Off on diuretics Noted elevated lambda and kappa Chains/ESR likely secondary underlying acute kidney injury. Evaluated by Dr. Mccollum/hematology Heme: History of colon cancer status post partial colectomy History of bladder cancer Leukocytosis normocytic anemia Monitor CBC daily. Follow trends. ID: Possible hospital-acquired pneumonia On meropenem/Levaquin/Zyvox per ID. Blood cultures 2 09/08 no growth FEN: Hyponatremia Elevated phosphorus Monitor and replete electrolytes MSK: PT evaluate and treat Prophylaxis - GI -famotidine - DVT - SCD/apixaban Access - Right subclavian CVL placed 09/16 Level II follow-up. Maximiliano Turcios MD Sep 29, 2016 17:49
--- NOTE | 2016-09-29 17:49 | HHI.PR ---
Subjective Remarks Patient seen this morning, late entry. Patient initially on BiPAP, allegedly, does not feel any better from this morning. He BiPAPed overnight. ABG at 2 AM acceptable. Presently, patient wants to be off the BiPAP mask. Denies any chest pain. Objective Vitals Vital Signs Date Time Temp Pulse Resp B/P (MAP) Pulse Ox O2 Delivery O2 Flow Rate FiO2 09/29/16 14:00 96 09/29/16 12:00 92 09/29/16 12:00 98.3 92 49 151/70 (97) 97 09/29/16 10:00 92 09/29/16 09:35 95 100 09/29/16 08:00 82 09/29/16 08:00 98.2 82 24 123/64 (83) 91 09/29/16 07:33 92 Partial Rebreather 15.00 09/29/16 07:00 94 Bi-Pap 15.00 100 09/29/16 06:00 85 09/29/16 05:00 87 30 144/78 (100) 98 09/29/16 04:00 97.4 89 35 136/66 (89) 88 09/29/16 04:00 90 09/29/16 03:12 98 BiPAP 09/29/16 02:00 85 09/29/16 01:10 96 100 09/29/16 00:00 79 09/29/16 00:00 97.9 79 24 130/67 (88) 91 09/28/16 23:56 91 Partial Rebreather 09/28/16 22:15 95 BiPAP 09/28/16 22:00 78 09/28/16 20:15 96 60 09/28/16 20:00 79 09/28/16 20:00 98.2 79 27 132/68 (89) 90 09/28/16 19:00 90 Partial Non-Rebreather 15.00 09/28/16 18:00 79 I/O 09/28/16 09/28/16 09/28/16 09/29/16 09/29/16 09/29/16 07:00 15:00 23:00 07:00 15:00 23:00 Intake Total 120 ml 100 ml 720 ml 60 ml 100 ml Output Total 601 ml 950 ml 550 ml Balance -481 ml 100 ml -230 ml -490 ml 100 ml Intake Oral 120 ml 720 ml 60 ml IV Total 100 ml 100 ml Output Urine Total 600 ml 950 ml 550 ml Stool Total 1 ml 0 ml # Bowel Movements 0 Result Diagram: 09/29/1629909/29/16299 Objective Remarks Mild respiratory distress On BiPAP Follows commands Regular rate and rhythm Decreased breath sounds bilaterally 1+ edema Awake, alert, oriented, follows commands Procedures none A/P Problem List: (1) Acute hypoxemic respiratory failure ICD Code: J96.01 - Acute respiratory failure with hypoxia Status: Acute (2) Fluid overload ICD Code: E87.70 - Fluid overload, unspecified Status: Acute (3) ANNY (acute kidney injury) ICD Code: N17.9 - Acute kidney failure, unspecified Status: Acute (4) Cerebrovascular accident (CVA) due to embolism ICD Code: I63.9 - Cerebral infarction, unspecified Status: Acute (5) CKD (chronic kidney disease), stage III ICD Code: N18.3 - Chronic kidney disease, stage 3 (moderate) Status: Chronic (6) Leukocytosis ICD Code: D72.829 - Elevated white blood cell count, unspecified Status: Acute (7) CAD (coronary artery disease) ICD Code: I25.10 - Atherosclerotic heart disease of [place] coronary artery without angina pectoris Status: Chronic (8) Hyperkalemia ICD Code: E87.5 - Hyperkalemia Status: Resolved Assessment and Plan Intravenous dose of Lasix given 40 mg IV with good urine output ABG repeat-mild compensated respiratory acidosis., May transition to nonrebreather. Per request from Dr. Meza, consult medical library assistant. Discussed with Ulises Gillette MD Sep 29, 2016 17:49
--- NOTE | 2016-09-29 18:57 | HHI.PR ---
Subjective Remarks Still on a Bipap mask since last night . alert and Oriented. CXR is better.Output OK . Received lasix IV. CR >2. Objective Vital Signs Date Time Temp Pulse Resp B/P (MAP) Pulse Ox O2 Delivery O2 Flow Rate FiO2 09/29/16 14:00 96 09/29/16 12:00 92 09/29/16 12:00 98.3 92 49 151/70 (97) 97 09/29/16 10:00 92 09/29/16 09:35 95 100 09/29/16 08:00 82 09/29/16 08:00 98.2 82 24 123/64 (83) 91 09/29/16 07:33 92 Partial Rebreather 15.00 09/29/16 07:00 94 Bi-Pap 15.00 100 09/29/16 06:00 85 09/29/16 05:00 87 30 144/78 (100) 98 09/29/16 04:00 97.4 89 35 136/66 (89) 88 09/29/16 04:00 90 09/29/16 03:12 98 BiPAP 09/29/16 02:00 85 09/29/16 01:10 96 100 09/29/16 00:00 79 09/29/16 00:00 97.9 79 24 130/67 (88) 91 09/28/16 23:56 91 Partial Rebreather 09/28/16 22:15 95 BiPAP 09/28/16 22:00 78 09/28/16 20:15 96 60 09/28/16 20:00 79 09/28/16 20:00 98.2 79 27 132/68 (89) 90 09/28/16 19:00 90 Partial Non-Rebreather 15.00 I/O 09/28/16 09/28/16 09/28/16 09/29/16 09/29/16 09/29/16 07:00 15:00 23:00 07:00 15:00 23:00 Intake Total 120 ml 100 ml 720 ml 60 ml 100 ml Output Total 601 ml 950 ml 550 ml Balance -481 ml 100 ml -230 ml -490 ml 100 ml Intake Oral 120 ml 720 ml 60 ml IV Total 100 ml 100 ml Output Urine Total 600 ml 950 ml 550 ml Stool Total 1 ml 0 ml # Bowel Movements 0 Result Diagram: 09/29/1629909/29/16299 Objective Remarks GENERAL: This moderately overweight elderly man alert and in mild distress HEENT: Head is normocephalic. Pupils are reactive. Tongue is moist. Throat clear NECK: Supple with venous distention. Trachea is midline. No thyroid enlargement. CHEST: Equal movements with diminished breath sounds at the bases with bibasilar crackles.Occ Wheeze. HEART: Sounds are irregular S1-S2. No murmur. ABDOMEN: Soft. Protuberant without masses. No organomegaly. EXTREMITIES: Decreased pulses. Good drill press hand bilaterally.Moves legs .Edema 2 + SKIN: warm. Assessment and Plan Assessment and Plan IMPRESSION 1. Acute respiratory failure.Resolving 2. Fluid overload status with pulmonary edema. 3. Acute kidney failure.Resolving 4. History of cerebrovascular accident. 5. Bibasilar atelectasis with possible pneumonia. 6. History of colon cancer and bladder cancer. Plan : 1. Rpt Chest X ray in am 2. O2 at 70 % NRB 3. Nebs qid ,Duoneb. 4. BiPAP 15/5 FIO2 50 %,today for 8 hrs daytime and at HS 5. Antibiotics per ID 6. Lasix 20 mg IV daily 7. PT Evaluation. 8. BMP ,CBC in am 9. D/W here . 10. May need NG feeds or IV fluids . Jaime Encinas MD Sep 29, 2016 18:57
[2016-09-29] MEDS: LEVOFLOXACIN 750 MG TAB PO SCH (20:26)
[2016-09-30] VITALS (15 sets, daily range): BP systolic 135–148; BP diastolic 64–72; PULSE 78–92; RESP 23–30; TEMP 97.6–98.2; O2SAT 87–99
[2016-09-30] MEDS: MEROPENEM INJ 500 MG in SODIUM CHLORIDE 0.9% INJ 100 ML IV SCH ×2 (00:07→11:23)
--- NOTE | 2016-09-30 05:47 | RADRPT ---
EXAM DATE/TIME: 09/30/2016 04:42 [place] COMPARISON: CHEST SINGLE AP, September 29, 2016, 1:36. CHEST SINGLE AP, September 28, 2016, 11:27. INDICATIONS : Short of breath MEDICAL HISTORY : Myocardial infarction. Hypercholesterolemia. Hypertension. CAD, Atrial SURGICAL HISTORY : CABG. coronary artery stent, abdominal aortic aneurysm repair ENCOUNTER: Subsequent ACUITY: 1 month PAIN SCORE: 0/10 LOCATION: Bilateral chest FINDINGS: A single view of the chest demonstrates right central line in superior vena cava. Tortuous aorta. Jose J ateral airspace and interstitial disease similar to September 29. No new consolidation or effusion. CONCLUSION: 1. Stable bilateral airspace and interstitial disease over the last several days. No pneumothorax or significant effusion. Amado Crain MD on September 30, 2016 at 5:44 Board Certified Radiologist. This report was verified electronically.
[2016-09-30 06:20] LABS: HEMATOCRIT 26.3 % (39.0-51.0); MEAN CELL VOLUME 93.4 FL (80.0-100.0); MEAN CORPUSCULAR HEMOGLOBIN 30.4 PG (27.0-34.0); MEAN CORPUSCULAR HGB CONC 32.6 % (32.0-36.0); PLATELET COUNT 444 TH/MM3 (150-450); RED BLOOD COUNT 2.82 MIL/MM3 (4.50-5.90); RED CELL DISTRIBUTION WIDTH 15.2 % (11.6-17.2); REVIEW FLAG FINAL; WHITE BLOOD COUNT 18.9 TH/MM3 (4.0-11.0)
[2016-09-30 06:52] LABS: BICARBONATE 27.3 MEQ/L (21.0-32.0); POTASSIUM 4.7 MEQ/L (3.5-5.1)
[2016-09-30] MEDS: CHLORHEXIDINE 0.12% (ORAL KIT) 15 ML CUP MT SCH ×4 (07:22→20:00)
[2016-09-30] MEDS: SODIUM CHLORIDE 0.9% FLUSH 10 ML FLUSH IV FLUSH SCH ×2 (07:22→20:36)
--- NOTE | 2016-09-30 07:52 | HHI.CCPN ---
Subjective Remarks/Hospital Course 75 y/o man now about 4 weeks following CABG complicated by CVA. Presented back 08/28 with new onset right arm weakness. Hospital course has been complicated by CKD and fluid overload. We have attempted BiPAP for several hours but he remains in distress and although oxygenation is acceptable work of breathing is excessive. Worrisome increasing metabolic acidosis. 09/17: Gas exchange much improved. BNP 1681, ScVO2 71%. It appears that cardiac output is more than adequate for peripheral needs and the primary pathology is renal failure and fluid overload. If we can manage volume I can probably get him extubated. 09/18: Diffuse crackles. Needs to be diuresed today. Tolerating extubation but at risk for hypoxemic failure again. 09/20 - Re consulted due to worsening hypoxia. Currently on nonrebreather mask. Chest x-ray shows worsening consolidation right lobe creatinine slightly improved over. Family request transfer to [facility] however refused. We'll attempt to decipher status currently unknown. 09/21: Remains on nonrebreather mask. Saturations between 89-97%. Chest x-ray unchanged. Not tachypnea. Not confused. 09/22: Radiographic studies show diffuse interstitial process with skip areas - more indicative of infectious/inflammatory process. Sats 85% with labored pattern. Required intubation for deteriorating respiratory status. 09/23: Gas exchange improving. Pulmonary infiltrates remain very concerning - if most recent sputum is benign I would not be opposed to steroids. 09/24: Extubated today. On 3 L nasal cannula. Passed swallow evaluation. Appropriate interactive status post extubation. Subjective 09/29: Critical care reconsult requested by Dr. Meza for respiratory failure. Patient reportedly was on BiPAP this morning. He was given additional diuretic earlier as he was short of breath. With this he seems to have improved somewhat and has been on a nonrebreather facemask for more than a few hours. He states that he is breathing much better. Patient being adamant about not using BiPAP. I had a detailed conversation about the importance of using BiPAP especially at night in view of his history of sleep apnea. Patient did not appear to be in acute distress though he was requiring a nonrebreather facemask at the time of my evaluation. No urgent need for BiPAP or intubation at this time. In fact patient is stating that he is breathing much better than this morning. 09/30: Remains on nonrebreather facemask. Refused BiPAP at night. States that he is breathing better today than yesterday. Objective Vital Signs Date Time Temp Pulse Resp B/P (MAP) Pulse Ox O2 Delivery O2 Flow Rate FiO2 09/30/16 06:00 84 09/30/16 04:00 97.6 30 135/64 (87) 87 09/30/16 03:27 Partial Rebreather 15.00 09/29/16 09:35 100 Intake and Output 09/30/16 09/30/16 10/01/16 08:00 16:00 00:00 Intake Total 340 ml Output Total 950 ml Balance -610 ml Result Diagram: 09/30/16 0555 09/30/16 0555 Other Results Laboratory Tests Test 09/29/16 13:38 Blood Gas Puncture Site LT RADIAL Blood Gas Patient Temperature 98.6 Blood Gas HCO3 27 mmol/L (22-26) Blood Gas Base Excess 2.4 mmol/L (-2-2) Blood Gas Oxygen Saturation 93 % (90-100) Arterial Blood pH 7.41 (7.380-7.420) Arterial Blood Partial Pressure CO2 43 mmHg (38-42) Arterial Blood Partial Pressure O2 76 mmHg (61-120) Arterial Blood Oxygen Content 12.0 Vol % (12.0-20.0) Arterial Blood Carboxyhemoglobin 1.7 % (0-4) Arterial Blood Methemoglobin 0.8 % (0-2) Blood Gas Hemoglobin 9.1 G/DL (12.0-16.0) Oxygen Delivery Device BiPAP Blood Gas Ventilator Setting IPAP15/EPAP5 Blood Gas Inspired Oxygen 80 % Imaging Last 24 hours Impressions Chest X-Ray 09/29/16 0000 Signed Impressions: Service Date/Time: Thursday, September 29, 2016 01:36 - CONCLUSION: 1. Improvement in pulmonary edema pattern since September 28. No new consolidation or effusion. Amado Crain MD Last Impressions Chest X-Ray 09/23/16 0000 Signed Impressions: Service Date/Time: September 08:16 - CONCLUSION: 1. Multiple tubes and lines are in good positions. 2. Bilateral pulmonary infiltrates are unchanged compared to the previous examination. Jeffrey Mohan MD Chest CT 09/21/16 0000 Signed Impressions: Service Date/Time: Wednesday, September 21, 2016 22:34 - CONCLUSION: 1. Diffuse airspace opacities with ground glass appearance throughout both lungs. 2. Moderate-sized bilateral pleural effusions. 3. Ectatic and dilated descending thoracic aorta, measuring up to 5.[address] Martinez MD Head Magnetic Resonance Angiography 09/10/16 1028 Signed Impressions: Service Date/Time: Saturday, September 10, 2016 10:57 - CONCLUSION: 1. Unremarkable MRA examination without evidence for large vessel occlusion, aneurysm, or vascular malformation. Richardson Haney MD Brain MRI 09/10/16 1028 Signed Impressions: Service Date/Time: Saturday, September 10, 2016 10:57 - CONCLUSION: 1. Findings most consistent with new embolic infarcts involving both the anterior and posterior circulation. Richardson Haney MD Carotid Artery Ultrasound 09/09/16 1028 Signed Impressions: Service Date/Time: September 10:43 - CONCLUSION: 1. Moderate visible plaque without hemodynamically significant stenosis identified. No significant change from August 25. Amado Crain MD Renal Ultrasound 09/09/16 0000 Signed Impressions: Service Date/Time: September 15:41 - CONCLUSION: 1. Cortical atrophy with small bilateral renal cysts. No hydronephrosis. Amado Crain MD Head CT 09/08/16 2251 Signed Impressions: Service Date/Time: Thursday, September 08, 2016 23:41 - CONCLUSION: Stable noncontrast CT with no evidence of hemorrhage or acute infarction. Atrophy and chronic small vessel splenic changes remain. Sanya Cavazos MD Objective Remarks GENERAL: 75-year-old male resting in bed on nonrebreather facemask with O2 sat 95% SKIN: Warm and dry. HEAD: Atraumatic. Normocephalic. NECK: Trachea midline. No thyromegaly CARDIOVASCULAR: IRR. S1, S2 no S4. Without murmur RESPIRATORY: Air entry decreased bilaterally at bases, scattered rhonchi, no wheezing. GASTROINTESTINAL: Abdomen soft, non-tender, nondistended. No guarding. BS active. MUSCULOSKELETAL: Extremities with trace to 1+ lower extremity edema. No obvious deformities. Well perfused. NEUROLOGICAL: Awake alert oriented 3 Strength is equal and symmetric bilaterally. 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 Jeffries/neurology. Currently on Xanax 0.25 mg every 6 hours. Anxiety CV: Coronary disease CABG ASCVD Carotid stenosis TAAA Hypertension dyslipidemia History atrial fibrillation status post ablation 2011 Followed by cardiology. Currently on clonidine when necessary. Diuresed. Currently off atorvastatin 40 mg daily/home medication On by mouth Eliquis and amiodarone per cardiology Echocardiogram revealed EF 70%. OHS septal motion./Paradoxical, CARA 50-60 mmHg Resp: Acute hypoxemic respiratory failure Off BiPAP currently on nonrebreather facemask. Recommend continuing BiPAP at night in view of history of sleep apnea. Incentive spirometry while awake Extubated 09/23 Chest x-ray 09/21 reveals consolidation right upper, middle and lower lobes. Bronchodilator therapy every 6 hours and as indicated Being followed by pulmonary. GI: PO diet as tolerated/renal diet On famotidine 10 mg by mouth daily /renal: History of hydroureter Renal ultrasound Revealed no hydronephrosis Currently on sodium bicarbonate 650 every 8 on with PhosLo 667 3 times a day Diuretics held. On prednisone daily per Dr. Cerda Creatinine elevated Endo: Sliding scale insulin if indicated Renal: Acute on chronic kidney injury Continue diuretics. Nephrology follow-up. Noted elevated lambda and kappa Chains/ESR likely secondary underlying acute kidney injury. Evaluated by Dr. Mccollum/hematology Heme: History of colon cancer status post partial colectomy History of bladder cancer Leukocytosis normocytic anemia Monitor CBC daily. Follow trends. ID: Possible hospital-acquired pneumonia On meropenem/Levaquin/Zyvox per ID. Blood cultures 2 09/08 no growth FEN: Hyponatremia Elevated phosphorus Monitor and replete electrolytes MSK: PT evaluate and treat Prophylaxis - GI -famotidine - DVT - SCD/apixaban Access - Right subclavian CVL placed 09/16 Level II follow-up. Maximiliano Turcios MD Sep 30, 2016 07:52
[2016-09-30] MEDS: LINEZOLID 600 MG TAB PO SCH ×2 (08:05→20:35)
[2016-09-30] MEDS: FAMOTIDINE 20 MG TAB PO SCH (08:05)
[2016-09-30] MEDS: APIXABAN 5 MG TABLET PO SCH ×2 (08:05→20:36)
[2016-09-30] MEDS: ASPIRIN EC 81 MG TABEC PO SCH (08:05)
[2016-09-30] MEDS: DOCUSATE SODIUM 50 MG/SENNA 8.6 MG TAB PO SCH ×2 (08:05→20:36)
[2016-09-30] MEDS: CALCIUM ACETATE 667 MG CAP PO SCH ×3 (08:05→17:50)
[2016-09-30] MEDS: LABETALOL HCL 100 MG TAB PO SCH ×3 (08:05→17:50)
[2016-09-30] MEDS: predniSONE 10 MG TAB PO SCH (08:05)
[2016-09-30] MEDS: FUROSEMIDE 20 MG/2 ML VIAL IV PUSH SCH (08:05)
--- NOTE | 2016-09-30 11:04 | HHI.PR ---
Subjective Remarks Off Bi pap mask since last night .On a NRB mask at 70% FIo2 alert and Oriented. CXR still shows bilateral infiltrates.Output OK . Received lasix IV. Objective Vital Signs Date Time Temp Pulse Resp B/P (MAP) Pulse Ox O2 Delivery O2 Flow Rate FiO2 09/30/16 10:00 84 09/30/16 08:00 92 09/30/16 08:00 98.2 92 28 145/70 (95) 95 09/30/16 07:51 97 Partial Rebreather 15.00 09/30/16 07:00 95 Partial Non-Rebreather 15.00 09/30/16 06:00 84 09/30/16 04:00 97.6 86 30 135/64 (87) 87 09/30/16 04:00 86 09/30/16 03:27 92 Partial Rebreather 15.00 09/30/16 02:00 82 09/30/16 00:00 98.0 83 24 136/68 (90) 97 09/30/16 00:00 83 09/29/16 23:18 93 Partial Rebreather 15.00 09/29/16 22:00 85 09/29/16 21:56 92 Partial Rebreather 10.00 09/29/16 20:00 97.6 86 32 114/56 (75) 94 09/29/16 20:00 86 09/29/16 19:31 94 Partial Rebreather 10.00 09/29/16 19:00 94 Partial Non-Rebreather 15.00 09/29/16 18:00 94 09/29/16 16:00 94 09/29/16 16:00 98.6 94 28 147/70 (95) 93 09/29/16 14:00 96 09/29/16 12:00 92 09/29/16 12:00 98.3 92 49 151/70 (97) 97 I/O 09/29/16 09/29/16 09/29/16 09/30/16 09/30/16 09/30/16 06:59 14:59 22:59 06:59 14:59 22:59 Intake Total 60 ml 100 ml 1014 ml 340 ml Output Total 550 ml 1350 ml 950 ml Balance -490 ml 100 ml -336 ml -610 ml Intake Oral 60 ml 1014 ml 240 ml IV Total 100 ml 100 ml Output Urine Total 550 ml 1350 ml 950 ml Stool Total 0 ml # Bowel Movements 2 Result Diagram: 09/30/1655 09/30/16 0555 Objective Remarks GENERAL: This moderately overweight elderly man alert and in mild distress HEENT: Head is normocephalic. Pupils are reactive. Tongue is moist. Throat clear NECK: Supple with venous distention. Trachea is midline. No thyroid enlargement. CHEST: Equal movements with diminished breath sounds at the bases with bibasilar crackles.Occ Wheeze. HEART: Sounds are irregular S1-S2. No murmur. ABDOMEN: Soft. Protuberant without masses. No organomegaly. EXTREMITIES: Decreased pulses. 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 Assessment and Plan Assessment and Plan IMPRESSION 1. Acute respiratory failure.Resolving 2. Fluid overload status with pulmonary edema. 3. Acute kidney failure.Resolving 4. History of cerebrovascular accident. 5. Bibasilar atelectasis with possible pneumonia. 6. History of colon cancer and bladder cancer. Plan : 1. 2. O2 at 70 % NRB 3. Nebs qid ,Duoneb. 4. BiPAP 15/5 FIO2 50 % at HS if he agrees. 5. Antibiotics per ID 6. Lasix 20 mg IV daily 7. PT Evaluation. 8. BMP ,CBC in am 9. Chest Xray in am 10.Intubation and vent support if he decompensates. Jaime Encinas MD Sep 30, 2016 11:04
--- NOTE | 2016-09-30 12:08 | PD.CARD.PN ---
Subjective Subjective Remarks The patient states "he is feeling better", in seated position in the hospital bed. Respiratory support deescalated to non rebreather mask. Tachypnea resolved. (Elin Kwok) Objective Medications Current Medications Medications (Trade) Dose Ordered Sig/Awilda Route Start Time Stop Time Status Last Admin (NS Flush) 2 ml UNSCH PRN IV FLUSH 09/09/16 00:45 (NS Flush) 2 ml BID IV FLUSH 09/09/16 09:00 09/30/16 07:22 (Narcan Inj) 0.4 mg UNSCH PRN IV 09/09/16 00:45 (Xanax) 0.25 mg Q6H PRN PO 09/09/16 13:45 09/29/16 01:59 (Pill Splitter) 1 ea UNSCH PRN OTHER 09/09/16 14:00 (Eliquis) 5 mg BID PO 09/10/16 09:00 09/30/16 08:05 (Catapres) 0.1 mg Q6H PRN PO 09/11/16 14:30 09/19/16 23:02 (Lopressor Inj) 5 mg Q2HR PRN IV PUSH 09/16/16 14:00 09/26/16 05:00 (Apresoline Inj) 10 mg Q6HR PRN IV PUSH 09/16/16 12:45 09/27/16 01:50 (Peridex 0.12% Liq) 15 ml BID@08,20 MT 09/16/16 20:00 09/26/16 20:00 (Racepinephrine 2.25% Neb) 0.5 ml Q1HR NEB PRN NEB 09/17/16 17:15 09/17/16 18:02 (Anne-Colace) 1 tab BID PO 09/19/16 21:00 09/30/16 08:05 (Milk Of Magnesia Liq) 30 ml Q12H PRN PO 09/19/16 13:30 09/19/16 13:30 (Senokot) 17.2 mg Q12H PRN PO 09/19/16 13:30 (Dulcolax Supp) 10 mg DAILY PRN RECTAL 09/19/16 13:30 (Lactulose Liq) 30 ml DAILY PRN PO 09/19/16 13:30 (Trandate) 100 mg TID PO 09/20/16 13:00 09/30/16 08:05 (Pepcid) 10 mg DAILY PO 09/21/16 09:00 09/30/16 08:05 (Albuterol Neb) 2.5 mg Q2HR NEB PRN NEB 09/21/16 12:00 09/29/16 00:54 (Phoslo) 667 mg TID PO 09/21/16 18:00 09/30/16 08:05 (Peridex 0.12% Liq) 15 ml BID@08,20 MT 09/22/16 20:00 09/29/16 08:00 (Zyvox) 600 mg Q12HR PO 09/27/16 21:00 09/30/16 08:05 (Levaquin) 750 mg Q48H PO 09/27/16 20:00 09/29/16 20:26 Meropenem 500 mg/ Sodium Chloride 100 ml @ 200 mls/hr Q12H IV 09/28/16 12:00 09/30/16 00:07 (Lasix Inj) 20 mg DAILY IV PUSH 09/29/16 09:00 09/30/16 08:05 (Deltasone) 30 mg DAILY PO 09/29/16 09:00 09/30/16 08:05 (Ecotrin Ec) 81 mg DAILY PO 09/30/16 09:00 09/30/16 08:05 Vital Signs / I&O Vital Signs Date Time Temp Pulse Resp B/P (MAP) Pulse Ox O2 Delivery O2 Flow Rate FiO2 09/30/16 10:00 84 09/30/16 08:00 92 09/30/16 08:00 98.2 92 28 145/70 (95) 95 09/30/16 07:51 97 Partial Rebreather 15.00 09/30/16 07:00 95 Partial Non-Rebreather 15.00 09/30/16 06:00 84 09/30/16 04:00 97.6 86 30 135/64 (87) 87 09/30/16 04:00 86 09/30/16 03:27 92 Partial Rebreather 15.00 09/30/16 02:00 82 09/30/16 00:00 98.0 83 24 136/68 (90) 97 09/30/16 00:00 83 09/29/16 23:18 93 Partial Rebreather 15.00 09/29/16 22:00 85 09/29/16 21:56 92 Partial Rebreather 10.00 09/29/16 20:00 97.6 86 32 114/56 (75) 94 09/29/16 20:00 86 09/29/16 19:31 94 Partial Rebreather 10.00 09/29/16 19:00 94 Partial Non-Rebreather 15.00 09/29/16 18:00 94 09/29/16 16:00 94 09/29/16 16:00 98.6 94 28 147/70 (95) 93 09/29/16 14:00 96 09/29/16 12:00 92 09/29/16 12:00 98.3 92 49 151/70 (97) 97 I/O 09/29/16 09/29/16 09/29/16 09/30/16 09/30/16 09/30/16 06:59 14:59 22:59 06:59 14:59 22:59 Intake Total 60 ml 100 ml 1014 ml 340 ml Output Total 550 ml 1350 ml 950 ml Balance -490 ml 100 ml -336 ml -610 ml Intake Oral 60 ml 1014 ml 240 ml IV Total 100 ml 100 ml Output Urine Total 550 ml 1350 ml 950 ml Stool Total 0 ml # Bowel Movements 2 Physical Exam GENERAL: Elderly male, in seated position in the hospital bed, no distress SKIN: Warm and dry. HEAD: Normocephalic. EYES: No scleral icterus. No injection or drainage. NECK: Supple, trachea midline CARDIOVASCULAR: Midline incision healing well, reg rate and rhythm RESPIRATORY: Non rebreather mask GASTROINTESTINAL: Abdomen soft, non-tender, nondistended. MUSCULOSKELETAL: No cyanosis, no BLE edema BACK: Nontender without obvious deformity. Laboratory Laboratory Tests Test 09/29/16 13:38 09/30/16 05:55 Blood Gas Puncture Site LT RADIAL Blood Gas Patient Temperature 98.6 Blood Gas HCO3 27 mmol/L Blood Gas Base Excess 2.4 mmol/L Blood Gas Oxygen Saturation 93 % Arterial Blood pH 7.41 Arterial Blood Partial Pressure CO2 43 mmHg Arterial Blood Partial Pressure O2 76 mmHg Arterial Blood Oxygen Content 12.0 Vol % Arterial Blood Carboxyhemoglobin 1.7 % Arterial Blood Methemoglobin 0.8 % Blood Gas Hemoglobin 9.1 G/DL Oxygen Delivery Device BiPAP Blood Gas Ventilator Setting IPAP15/[id number] Blood Gas Inspired Oxygen 80 % White Blood Count 18.9 TH/MM3 Red Blood Count 2.82 MIL/MM3 Hemoglobin 8.6 GM/DL Hematocrit 26.3 % Mean Corpuscular Volume 93.4 FL Mean Corpuscular Hemoglobin 30.4 PG Mean Corpuscular Hemoglobin Concent 32.6 % Red Cell Distribution Width 15.2 % Platelet Count 444 TH/MM3 Mean Platelet Volume 8.3 FL Blood Urea Nitrogen 91 MG/DL Creatinine 2.67 MG/DL Random Glucose 100 MG/DL Albumin 2.1 GM/DL Calcium Level 8.7 MG/DL Phosphorus Level 4.6 MG/DL Sodium Level 134 MEQ/L Potassium Level 4.7 MEQ/L Chloride Level 98 MEQ/L Carbon Dioxide Level 27.3 MEQ/L Anion Gap 9 MEQ/L Estimat Glomerular Filtration Rate 23 ML/MIN Imaging Last 72 hours Impressions Chest X-Ray 09/30/16 0600 Signed Impressions: Service Date/Time: September 04:42 - CONCLUSION: 1. Stable bilateral airspace and interstitial disease over the last several days. No pneumothorax or significant effusion. Amado Crain MD Chest X-Ray 09/29/16 0000 Signed Impressions: Service Date/Time: Thursday, September 29, 2016 01:36 - CONCLUSION: 1. Improvement in pulmonary edema pattern since September 28. No new consolidation or effusion. Amado Crain MD Chest X-Ray 09/28/16 0000 Signed Impressions: Service Date/Time: Wednesday, September 28, 2016 11:27 - CONCLUSION: Stable examination. jAay Prabhakar MD (Elin Kwok) Assessment and Plan Assessment and Plan Recurrent acute hypoxic respiratory failure requiring ventilator support. 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 PLAN: Discussed with Dr Chinchilla. Cannot exclude amiodarone pulmonary toxicity. Will stop amio, continue steroids Continue Labetalol 100 mg TID. Intolerant of metoprolol due to hallucinations. Will hold off resuming ASA for now due to critical illness and increased GI risk. He has been intolerant of multiple statins in the past. Will consider resuming therapy once the patient stabilizes. SBP goal < 130 DBP goal < 90. The patient was seen and evaluated by Dr. Moran who completed a [id number] encounter, completed a physical exam and participated in evaluation and management. (Elin Kwok) Assessment and Plan The exam, history, and the medical decision-making described in the above note were completed with the assistance of the mid-level provider. I reviewed and agree with the findings presented. I attest that I had a [id number] encounter with the patient on the same day, and personally performed and documented my assessment and findings in the medical record. Feels much better after diuresis, suspect fluid overload, discussed in detail with Dr Zamora (Suellen Moran MD) Elin Kwok Sep 30, 2016 12:08 Suellen Moran MD Sep 30, 2016 13:50
--- NOTE | 2016-09-30 13:56 | HHI.IDPN ---
Note Infectious Disease Note Patient on 02 via NRM. Notes reviewed. Amiodarone stopped. More alert and awake and responsive. Not tachypneic. Afebrile. No cough or sputum production. PAST MEDICAL HISTORY 1. Coronary artery disease. 2. History of atrial fibrillation. 3. History of aortic aneurysm. 4. Bladder cancer treated with cystectomy. 5. Coronary artery bypass graft surgery. 6. Colon cancer history. 7. Peripheral vascular disease. 8. Hypertension. 9. History of transurethral resection of bladder tumor. 10.History of abdominal aortic aneurysm repair. ALLERGIES 1. SIMVASTATIN. 2. PRAVASTATIN. 3. ATORVASTATIN. ANTIBIOTICS 1. Zyvox. 2. Levaquin. 3. Meropenem. OBJECTIVE: Vital Signs Date Time Temp Pulse Resp B/P (MAP) Pulse Ox O2 Delivery O2 Flow Rate FiO2 09/30/16 12:00 98.2 85 26 139/72 (94) 90 09/30/16 12:00 85 09/30/16 10:00 84 09/30/16 08:00 92 09/30/16 08:00 98.2 92 28 145/70 (95) 95 09/30/16 07:51 97 Partial Rebreather 15.00 09/30/16 07:00 95 Partial Non-Rebreather 15.00 09/30/16 06:00 84 09/30/16 04:00 97.6 86 30 135/64 (87) 87 09/30/16 04:00 86 09/30/16 03:27 92 Partial Rebreather 15.00 09/30/16 02:00 82 09/30/16 00:00 98.0 83 24 136/68 (90) 97 09/30/16 00:00 83 09/29/16 23:18 93 Partial Rebreather 15.00 09/29/16 22:00 85 09/29/16 21:56 92 Partial Rebreather 10.00 09/29/16 20:00 97.6 86 32 114/56 (75) 94 09/29/16 20:00 86 09/29/16 19:31 94 Partial Rebreather 10.00 09/29/16 19:00 94 Partial Non-Rebreather 15.00 09/29/16 18:00 94 09/29/16 16:00 94 09/29/16 16:00 98.6 94 28 147/70 (95) 93 09/29/16 14:00 96 09/30/16 09/30/16 10/01/16 14:59 22:59 06:59 Intake Total 100 ml Balance 100 ml IV Total 100 ml Laboratory Tests Test 09/29/16 03:00 09/30/16 05:55 White Blood Count 23.1 TH/MM3 18.9 TH/MM3 Red Blood Count 2.88 MIL/MM3 2.82 MIL/MM3 Hemoglobin 8.8 GM/DL 8.6 GM/DL Hematocrit 27.0 % 26.3 % Mean Corpuscular Volume 94.0 FL 93.4 FL Mean Corpuscular Hemoglobin 30.4 PG 30.4 PG Mean Corpuscular Hemoglobin Concent 32.4 % 32.6 % Red Cell Distribution Width 15.3 % 15.2 % Platelet Count 444 TH/MM3 444 TH/MM3 Mean Platelet Volume 8.5 FL 8.3 FL Neutrophils (%) (Auto) 89.9 % Lymphocytes (%) (Auto) 4.9 % Monocytes (%) (Auto) 3.5 % Eosinophils (%) (Auto) 1.4 % Basophils (%) (Auto) 0.3 % Neutrophils # (Auto) 20.8 TH/MM3 Lymphocytes # (Auto) 1.1 TH/MM3 Monocytes # (Auto) 0.8 TH/MM3 Eosinophils # (Auto) 0.3 TH/MM3 Basophils # (Auto) 0.1 TH/MM3 CBC Comment AUTO DIFF Differential Comment AUTO DIFF CONFIRMED Platelet Estimate NORMAL Platelet Morphology Comment NORMAL Laboratory Tests Test 09/29/16 03:00 09/30/16 05:55 Blood Urea Nitrogen 82 MG/DL 91 MG/DL Creatinine 2.89 MG/DL 2.67 MG/DL Random Glucose 109 MG/DL 100 MG/DL Calcium Level 9.0 MG/DL 8.7 MG/DL Phosphorus Level 4.1 MG/DL 4.6 MG/DL Magnesium Level 2.2 MG/DL Sodium Level 134 MEQ/L 134 MEQ/L Potassium Level 4.3 MEQ/L 4.7 MEQ/L Chloride Level 96 MEQ/L 98 MEQ/L Carbon Dioxide Level 29.4 MEQ/L 27.3 MEQ/L Anion Gap 9 MEQ/L 9 MEQ/L Estimat Glomerular Filtration Rate 21 ML/MIN 23 ML/MIN Albumin 2.1 GM/DL Microbiology Date/Time Source Procedure Growth Status 09/28/16 15:55 Blood Other Aerobic Blood Culture - Preliminary NO GROWTH IN 2 DAYS Resulted 09/28/16 15:55 Blood Other Anaerobic Blood Culture - Preliminary NO GROWTH IN 2 DAYS Resulted 09/28/16 15:50 Blood Other Aerobic Blood Culture - Preliminary NO GROWTH IN 2 DAYS Resulted 09/28/16 15:50 Blood Other Anaerobic Blood Culture - Preliminary NO GROWTH IN 2 DAYS Resulted IMAGING: Chest X-Ray 09/30/16 0600 Signed Impressions: Service Date/Time: September 04:42 - CONCLUSION: 1. Stable bilateral airspace and interstitial disease over the last several days. No pneumothorax or significant effusion. Amado Crain MD Chest X-Ray 09/29/16 0000 Signed Impressions: Service Date/Time: Thursday, September 29, 2016 01:36 - CONCLUSION: 1. Improvement in pulmonary edema pattern since September 28. No new consolidation or effusion. Amado Crain MD Chest X-Ray 09/23/16 0000 Signed Impressions: Service Date/Time: September 08:16 - CONCLUSION: 1. Multiple tubes and lines are in good positions. 2. Bilateral pulmonary infiltrates are unchanged compared to the previous examination. Jeffrey Mohan MD Chest CT 09/21/16 0000 Signed Impressions: Service Date/Time: Wednesday, September 21, 2016 22:34 - CONCLUSION: 1. Diffuse airspace opacities with ground glass appearance throughout both lungs. 2. Moderate-sized bilateral pleural effusions. 3. Ectatic and dilated descending thoracic aorta, measuring up to 5.[address] Martinez MD Head Magnetic Resonance Angiography 09/10/16 1028 Signed Impressions: Service Date/Time: Saturday, September 10, 2016 10:57 - CONCLUSION: 1. Unremarkable MRA examination without evidence for large vessel occlusion, aneurysm, or vascular malformation. Richardson Haney MD Brain MRI 09/10/16 1028 Signed Impressions: Service Date/Time: Saturday, September 10, 2016 10:57 - CONCLUSION: 1. Findings most consistent with new embolic infarcts involving both the anterior and posterior circulation. Richardson Haney MD Carotid Artery Ultrasound 09/09/16 1028 Signed Impressions: Service Date/Time: September 10:43 - CONCLUSION: 1. Moderate visible plaque without hemodynamically significant stenosis identified. No significant change from August 25. Amado Crain MD Renal Ultrasound 09/09/16 0000 Signed Impressions: Service Date/Time: September 15:41 - CONCLUSION: 1. Cortical atrophy with small bilateral renal cysts. No hydronephrosis. Amado Crain MD Head CT 09/08/16 2251 Signed Impressions: Service Date/Time: Thursday, September 08, 2016 23:41 - CONCLUSION: Stable noncontrast CT with no evidence of hemorrhage or acute infarction. Atrophy and chronic small vessel splenic changes remain. Sanya Cavazos MD PHYSICAL EXAMINATION GENERAL: No acute distress. Alert. HEENT: Sclera is non-icteric. Oropharynx mucosa moist. NECK: No swelling or adenopathy. LUNGS: Basilar rhonchi. HEART: Nl S1S2, No audible murmur, rub or gallop. ABDOMEN: Bowel sounds present. Soft. No tenderness. EXTREMITIES: No clubbing, no cyanosis. no edema. SKIN: No diffuse rash. NEUROLOGIC: Non focal. PSYCH: Calm and cooperative. IMPRESSION 1. Acute respiratory failure. post intubation x 2. 2. Bilateral lung infiltrates, probable HCAP pneumonia. Pulmonary thinks amiodarone toxicity. 3. Leukocytosis. WBC still elevated. 4. Acute kidney disease. RECOMMENDATIONS Continue Meropenem. Continue PO Zyvox. Continue PO Levaquin. Sputum when feasible. Monitor WBC. Sae Nova MD Sep 30, 2016 13:56
--- NOTE | 2016-09-30 16:56 | PD.CAR.PN ---
CVT Progress Note Subjective/Hospital Course: pt was OOB and stood on side of bed, did participate in exercises recommend continued PT/OT OOB to chair wean 02 as tolerated off amiodarone / concern for toxicity continue pulm toileting Objective: GENERAL: SKIN: Warm and dry. sternal incision intact and well approximated HEAD: Normocephalic. EYES: No scleral icterus. No injection or drainage. NECK: Supple, trachea midline. No JVD or lymphadenopathy. CARDIOVASCULAR: Regular rate and rhythm without murmurs, gallops, or rubs. mild edema RESPIRATORY: Breath sounds equal bilaterally. No accessory muscle use. coarse breath sounds, no wheezing GASTROINTESTINAL: Abdomen soft, non-tender, nondistended. MUSCULOSKELETAL: No cyanosis, or edema. BACK: Nontender without obvious deformity. No CVA tenderness. Vital Signs Date Time Temp Pulse Resp B/P (MAP) Pulse Ox O2 Delivery O2 Flow Rate FiO2 09/30/16 16:00 81 09/30/16 16:00 98.2 80 23 136/70 (92) 93 09/30/16 14:00 81 09/30/16 12:00 98.2 85 26 139/72 (94) 90 09/30/16 12:00 85 09/30/16 10:00 84 09/30/16 08:00 92 09/30/16 08:00 98.2 92 28 145/70 (95) 95 09/30/16 07:51 97 Partial Rebreather 15.00 09/30/16 07:00 95 Partial Non-Rebreather 15.00 09/30/16 06:00 84 09/30/16 04:00 97.6 86 30 135/64 (87) 87 09/30/16 04:00 86 09/30/16 03:27 92 Partial Rebreather 15.00 09/30/16 02:00 82 09/30/16 00:00 98.0 83 24 136/68 (90) 97 09/30/16 00:00 83 09/29/16 23:18 93 Partial Rebreather 15.00 09/29/16 22:00 85 09/29/16 21:56 92 Partial Rebreather 10.00 09/29/16 20:00 97.6 86 32 114/56 (75) 94 09/29/16 20:00 86 09/29/16 19:31 94 Partial Rebreather 10.00 09/29/16 19:00 94 Partial Non-Rebreather 15.00 09/29/16 18:00 94 Labs: Laboratory Tests Test 09/30/16 05:55 White Blood Count 18.9 TH/MM3 (4.0-11.0) Red Blood Count 2.82 MIL/MM3 (4.50-5.90) Hemoglobin 8.6 GM/DL (13.0-17.0) Hematocrit 26.3 % (39.0-51.0) Mean Corpuscular Volume 93.4 FL (80.0-100.0) Mean Corpuscular Hemoglobin 30.4 PG (27.0-34.0) Mean Corpuscular Hemoglobin Concent 32.6 % (32.0-36.0) Red Cell Distribution Width 15.2 % (11.6-17.2) Platelet Count 444 TH/MM3 (150-450) Mean Platelet Volume 8.3 FL (7.0-11.0) Blood Urea Nitrogen 91 MG/DL (7-18) Creatinine 2.67 MG/DL (0.60-1.30) Random Glucose 100 MG/DL (74-106) Albumin 2.1 GM/DL (3.4-5.0) Calcium Level 8.7 MG/DL (8.5-10.1) Phosphorus Level 4.6 MG/DL (2.5-4.9) Sodium Level 134 MEQ/L (136-145) Potassium Level 4.7 MEQ/L (3.5-5.1) Chloride Level 98 MEQ/L (98-107) Carbon Dioxide Level 27.3 MEQ/L (21.0-32.0) Anion Gap 9 MEQ/L (5-15) Estimat Glomerular Filtration Rate 23 ML/MIN (>89) Result Diagram: 09/30/1655409/30/1655 Telemetry: NSR (1) History of CVA (cerebrovascular accident) (2) CKD (chronic kidney disease) stage 3, GFR 30-59 ml/min (3) S/P CABG x 3 Plan: ASA, hx of afib on eliquis no amiodarone (4) Hypoxemic respiratory failure, chronic Plan: pulm following , continue diuresis , antibiotics, wean 02 as tolerated Casandra Barton Sep 30, 2016 16:56
--- NOTE | 2016-09-30 17:21 | HHI.NPPN ---
Subjective History of Present Illness The patient is a 75 yo [place] male who presented to this facility 09/08 with complaints of R hand weakness. He was here at this facility just 10 days ago for 4-vessel CABG, discharged on 08/29. While undergoing CABG, he suffered a stroke and came in today as he was concerned he was having another. Was having no other neurological issues. We were consulted for acute renal failure. Presenting SCr of 3.65 that has worsened significantly from discharge on 08/29 at 1.53. Appears baseline renal function 1.2-1.6 according to previous records. States he has been at his usual state of health since his hospital discharge besides R hand weakness that resolved on its own while here in the ED. Denies any NVD. No NSAIDs. Denies any urinary issues. Review of previous imaging (namely CTA on 08/24) showed a L sided hydronephrosis extending to UVJ. THe patient was unaware of this. He has hx of bladder CA that was treated by surgical resection at [facility] about 1 year ago. Scheduled for f/u there in 1 month. CTA also revealed abdominal aneurysm that vascular surgery was consulted about and was supposed to have f/u as outpatient. Interval History Patient indicated that he was feeling somewhat better today. Granddaughter by bedside. Review of Systems Respiratory Lungs: SOB Objective Data Data 09/30/16 10/01/16 19:00 07:00 Intake Total 100 ml Balance 100 ml IV Total 100 ml Vital Signs Date Time Temp Pulse Resp B/P (MAP) Pulse Ox O2 Delivery O2 Flow Rate FiO2 09/30/16 16:00 81 09/30/16 16:00 98.2 80 23 136/70 (92) 93 09/30/16 14:00 81 09/30/16 12:00 98.2 85 26 139/72 (94) 90 09/30/16 12:00 85 09/30/16 10:00 84 09/30/16 08:00 92 09/30/16 08:00 98.2 92 28 145/70 (95) 95 09/30/16 07:51 97 Partial Rebreather 15.00 09/30/16 07:00 95 Partial Non-Rebreather 15.00 09/30/16 06:00 84 09/30/16 04:00 97.6 86 30 135/64 (87) 87 09/30/16 04:00 86 09/30/16 03:27 92 Partial Rebreather 15.00 09/30/16 02:00 82 09/30/16 00:00 98.0 83 24 136/68 (90) 97 09/30/16 00:00 83 09/29/16 23:18 93 Partial Rebreather 15.00 09/29/16 22:00 85 09/29/16 21:56 92 Partial Rebreather 10.00 09/29/16 20:00 97.6 86 32 114/56 (75) 94 09/29/16 20:00 86 09/29/16 19:31 94 Partial Rebreather 10.00 09/29/16 19:00 94 Partial Non-Rebreather 15.00 09/29/16 18:00 94 -: 09/30/16 0555 09/30/16 0555 Physical Exam General Appearance: No Acute Distress Eyes Eye Exam: Sclera White Pulmonary Resp Exam: Breath Sounds Equal, No Distress, Diminished Breath Sounds Cardiology CV Exam: Normal Sinus Rhythm, Irregular Gastrointestinal/Abdomen GI Exam: Soft, Non-Tender Integumentary Skin Exam: Clear, Warm Skin Remarks Skin turgor diminished. Extremeties Extremities Exam: No Edema Neurologic Neuro Exam: Awake Assessment/Plan Discussed Condition With: Patient Problem List: (1) Acute kidney failure ICD Codes: N17.9 - Acute kidney failure, unspecified Status: Acute Plan: Differential diagnosis at this point as far as acute renal insufficiency is concerned would be atheroembolic disease occurring during previous admission with subsequent decline in renal function and a lesser consideration towards interstitial nephritis possibly related to Protonix. Patient's creatinine level slightly improved today. Remains be determined what the patient's baseline renal indices will be however. No clinical evidence of significant volume retention at this time. Would not recommend increasing diuretic therapy. Noted consideration being given to pulmonary issues related to amiodarone. Management will be deferred to pulmonary and or cardiology. Recommend avoidance of Protonix in the future without kidney biopsy to confirm or eliminate incision nephritis. Medications should be adjusted for the patient's renal decline. Avoid nephrotoxic medications including NSAIDs and iodinated contrast dyes. Gadolinium should be avoided as eGFR 30. (2) Chronic kidney disease, stage I ICD Codes: N18.1 - Chronic kidney disease, stage 1 Plan: Able to obtain labs from his outpatient PCP and most recent SCr 0.7 from April 2016 He did have evidence of proteinuria predating admission (3) Hypoxemic respiratory failure, chronic ICD Codes: J96.11 - Chronic respiratory failure with hypoxia Status: Acute Plan: Pt s/p extubation, but not tolerating Bi-PAP. Sats in upper 80s to 90s on NC. (4) TIA (transient ischemic attack) ICD Codes: G45.9 - Transient cerebral ischemic attack, unspecified Status: Acute (5) Hypertension ICD Codes: I10 - Essential (primary) hypertension Status: Acute (6) CAD (coronary artery disease) ICD Codes: I25.10 - Atherosclerotic heart disease of [place] coronary artery without angina pectoris Status: Chronic (7) Congestive heart failure ICD Codes: I50.9 - Heart failure, unspecified Status: Acute Plan: Compensated currently. (8) Anemia ICD Codes: D64.9 - Anemia, unspecified Status: Acute Plan: Of acute illness. Plan The exam, history, and the medical decision-making described in the above note were completed with the assistance of the YADIRA. I reviewed and agree with the findings presented. Problem Qualifiers (1) TIA (transient ischemic attack): Liv Cerda MD Sep 30, 2016 17:21
[2016-10-01] VITALS (15 sets, daily range): BP systolic 132–150; BP diastolic 63–95; PULSE 76–90; RESP 20–24; TEMP 97.4–98.6; O2SAT 92–98
[2016-10-01] MEDS: MEROPENEM INJ 500 MG in SODIUM CHLORIDE 0.9% INJ 100 ML IV SCH ×3 (00:10→23:17)
[2016-10-01] MEDS: hydrALAZINE HCL 20 MG/ML VIAL IV PUSH PRN ×2 (02:28→16:23)
[2016-10-01 05:42] LABS: BICARBONATE 28.4 MEQ/L (21.0-32.0); POTASSIUM 4.5 MEQ/L (3.5-5.1)
--- NOTE | 2016-10-01 06:07 | RADRPT ---
EXAM DATE/TIME: 10/01/2016 04:35 [facility] COMPARISON: CHEST SINGLE AP, September 30, 2016, 4:42. CHEST SINGLE AP, September 29, 2016, 1:36. CHEST SINGLE AP, 2016, 11:27. INDICATIONS : Edema MEDICAL HISTORY : Myocardial infarction. Hypercholesterolemia. Hypertension. CAD, Atrial SURGICAL HISTORY : CABG. coronary artery stent, abdominal aortic aneurysm repair ENCOUNTER: Subsequent ACUITY: 1 month PAIN SCORE: 0/10 LOCATION: Bilateral chest FINDINGS: A single view of the chest demonstrates diffuse bilateral infiltrates throughout the lungs. The aorta is quite tortuous. Numerous intact sternal wires. Right subclavian central line in excellent positio n. No visible pneumothorax or substantial pleural effusion. Osseous structures are intact. CONCLUSION: Patchy bilateral infiltrates. Aorta is quite tortuous. Wing Marroquin MD on October 01, 2016 at 6:05 Board Certified Radiologist. This report was verified electronically.
[2016-10-01] MEDS: CHLORHEXIDINE 0.12% (ORAL KIT) 15 ML CUP MT SCH ×4 (08:00→20:00)
[2016-10-01] MEDS ORDERED: SOTALOL HCL 80 MG TAB PO SCH (09:00)
[2016-10-01] MEDS: CALCIUM ACETATE 667 MG CAP PO SCH ×3 (09:35→18:25)
[2016-10-01] MEDS: FUROSEMIDE 20 MG/2 ML VIAL IV PUSH SCH (09:35)
[2016-10-01] MEDS: predniSONE 10 MG TAB PO SCH (09:36)
[2016-10-01] MEDS: DOCUSATE SODIUM 50 MG/SENNA 8.6 MG TAB PO SCH ×2 (09:36→20:25)
[2016-10-01] MEDS: ASPIRIN EC 81 MG TABEC PO SCH (09:36)
[2016-10-01] MEDS: APIXABAN 5 MG TABLET PO SCH ×2 (09:36→20:25)
[2016-10-01] MEDS: LABETALOL HCL 100 MG TAB PO SCH ×3 (09:36→18:25)
[2016-10-01] MEDS: LINEZOLID 600 MG TAB PO SCH ×2 (09:36→20:25)
[2016-10-01] MEDS: FAMOTIDINE 20 MG TAB PO SCH (09:37)
[2016-10-01] MEDS: SODIUM CHLORIDE 0.9% FLUSH 10 ML FLUSH IV FLUSH SCH ×2 (09:38→20:26)
--- NOTE | 2016-10-01 11:03 | HHI.HCPN ---
Reason for visit a. To assist with evaluation and management of symptoms including: dyspnea, anxiety, malnutrition b. To assist medical decision maker(s) with: better understanding of current medical conditions; weighing benefits/burdens of medical treatment options; making medical treatment decisions. Subjective/Interval History This 75 yr old patient presented to the ED on 09/08/16, with reports of right arm weakness, numbness. Symptoms lasted a few minutes and then subsided. Patient with known history of hypertension, AAA repair, colon and bladder cancer posttreatment, CO, CVA, status post CABG 10 days prior to this admission. Patient respiratory status continues to wax and wane. He has been transferred to CVICU so that the cardiovascular team can monitor and manage his care more closely. Patient is sitting up in the chair today, he is currently on high flow nasal cannula, however he becomes short of breath even with simple conversation and his oxygen saturation decreases significantly. 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 CXR on 10/01: patchy bilateral infiltrates. Slight improvement in leukocytosis today , WBC:18.9, patient remains afebrile. Renal function remains elevated, there is a slight decrease today, BUN:84, creatinine:2.22. Patient endorses he is still experiencing shortness of breath however he states he feels better. Denies any pain, no other complaints at this time. Patient's and granddaughter at bedside, patient's daughter on the telephone at this time, all were updated regarding the patient's condition and care. They all state they have no further questions at this time. Dual visit with DANNY Macario. Palliative care continues to follow the patient throughout this hospital course to provide support, guidance, and clarification of medical treatment. . Advance Directives Living Will: Never completed Health Care Surrogate: Never completed Objective Vital Signs Date Time Temp Pulse Resp B/P (MAP) Pulse Ox O2 Delivery O2 Flow Rate FiO2 10/01/16 09:00 89 Nasal Cannula 100 10/01/16 08:00 86 10/01/16 08:00 98.5 90 20 150/95 (113) 94 10/01/16 07:00 94 Non-Rebreather 100 10/01/16 06:00 86 10/01/16 04:00 97.9 84 24 133/63 (86) 92 10/01/16 04:00 84 10/01/16 02:00 82 10/01/16 00:00 86 10/01/16 00:00 97.4 86 23 133/70 (91) 93 09/30/16 22:00 78 09/30/16 20:00 80 09/30/16 20:00 97.9 80 23 148/70 (96) 90 09/30/16 19:00 97 Partial Non-Rebreather 15.00 09/30/16 18:08 99 Non-Rebreather 15.00 09/30/16 18:00 81 09/30/16 16:00 81 09/30/16 16:00 98.2 80 23 136/70 (92) 93 09/30/16 14:00 81 09/30/16 12:00 98.2 85 26 139/72 (94) 90 09/30/16 12:00 85 Intake & Output 10/01/16 10/01/16 07:00 19:00 Intake Total 340 ml Output Total 1150 ml Balance -810 ml Intake Oral 240 ml IV Total 100 ml Output Urine Total 1150 ml # Bowel Movements 1 . Physical Exam CONSTITUTIONAL/GENERAL: This is a ill elderly male patient, short of breath with even simple conversation. TUBES/LINES/DRAINS: Peripheral IV left upper extremity, right subclavian central line, Franco catheter, SCDs, partial nonrebreather/BiPAP mask. SKIN: No jaundice, rashes, or lesions. Few areas ecchymoses on upper extremities. No wounds seen anteriorly. Skin temperature appropriate. HEAD: Atraumatic. Normocephalic. EYES: Pupils equal and round and reactive. Extraocular motions intact. No scleral icterus. No injection or drainage. ENT: Slightly hard of hearing. Nose without bleeding or purulent drainage. CARDIOVASCULAR: Regular rate and rhythm without murmurs.No JVD. Peripheral pulses symmetric. RESPIRATORY/CHEST: Symmetric, unlabored respirations. Tachypneic with minimal exertion. Diminished air movement throughout. On high flow nasal cannula today. GASTROINTESTINAL: Abdomen soft, non-tender, nondistended. No guarding. Bowel sounds present. GENITOURINARY: Without palpable bladder distension. Franco catheter in place. MUSCULOSKELETAL: Extremities without clubbing, cyanosis. Trace edema hands. No joint tenderness or effusion noted. No mottling or clubbing. NEUROLOGICAL: Awake and alert. Oriented times x 2-3 , forgetful at times. Pauses to search for words. Moves all 4 extremities. Left upper slightly weaker than right upper. Lower extremities strength appears equal. PSYCHIATRIC: No obvious anxiety/depression. no apparent hallucinations or other psychotic thought process. . Diagnostic Tests Laboratory Laboratory Tests Test 09/29/16 02:32 09/29/16 03:00 09/29/16 13:38 09/30/16 05:55 Blood Gas Puncture Site RT RADIAL LT RADIAL Blood Gas Patient Temperature 98.6 98.6 Blood Gas HCO3 27 mmol/L (22-26) 27 mmol/L (22-26) Blood Gas Base Excess 2.9 mmol/L (-2-2) 2.4 mmol/L (-2-2) Blood Gas Oxygen Saturation 98 % (90-100) 93 % (90-100) Arterial Blood pH 7.42 (7.380-7.420) 7.41 (7.380-7.420) Arterial Blood Partial Pressure CO2 42 mmHg (38-42) 43 mmHg (38-42) Arterial Blood Partial Pressure O2 256 mmHg (61-120) 76 mmHg (61-120) Arterial Blood Oxygen Content 12.5 Vol % (12.0-20.0) 12.0 Vol % (12.0-20.0) Arterial Blood Carboxyhemoglobin 1.6 % (0-4) 1.7 % (0-4) Arterial Blood Methemoglobin 0.9 % (0-2) 0.8 % (0-2) Blood Gas Hemoglobin 8.7 G/DL (12.0-16.0) 9.1 G/DL (12.0-16.0) Oxygen Delivery Device BIPAP BiPAP Blood Gas Ventilator Setting IPAP 15 / EPAP 5 / IPAP15/EPAP5 Blood Gas Inspired Oxygen 100 % 80 % White Blood Count 23.1 TH/MM3 (4.0-11.0) 18.9 TH/MM3 (4.0-11.0) Red Blood Count 2.88 MIL/MM3 (4.50-5.90) 2.82 MIL/MM3 (4.50-5.90) Hemoglobin 8.8 GM/DL (13.0-17.0) 8.6 GM/DL (13.0-17.0) Hematocrit 27.0 % (39.0-51.0) 26.3 % (39.0-51.0) Mean Corpuscular Volume 94.0 FL (80.0-100.0) 93.4 FL (80.0-100.0) Mean Corpuscular Hemoglobin 30.4 PG (27.0-34.0) 30.4 PG (27.0-34.0) Mean Corpuscular Hemoglobin Concent 32.4 % (32.0-36.0) 32.6 % (32.0-36.0) Red Cell Distribution Width 15.3 % (11.6-17.2) 15.2 % (11.6-17.2) Platelet Count 444 TH/MM3 (150-450) 444 TH/MM3 (150-450) Mean Platelet Volume 8.5 FL (7.0-11.0) 8.3 FL (7.0-11.0) Neutrophils (%) (Auto) 89.9 % (16.0-70.0) Lymphocytes (%) (Auto) 4.9 % (9.0-44.0) Monocytes (%) (Auto) 3.5 % (0.0-8.0) Eosinophils (%) (Auto) 1.4 % (0.0-4.0) Basophils (%) (Auto) 0.3 % (0.0-2.0) Neutrophils # (Auto) 20.8 TH/MM3 (1.8-7.7) Lymphocytes # (Auto) 1.1 TH/MM3 (1.0-4.8) Monocytes # (Auto) 0.8 TH/MM3 (0-0.9) Eosinophils # (Auto) 0.3 TH/MM3 (0-0.4) Basophils # (Auto) 0.1 TH/MM3 (0-0.2) CBC Comment AUTO DIFF Differential Comment AUTO DIFF CONFIRMED Platelet Estimate NORMAL (NORMAL) Platelet Morphology Comment NORMAL (NORMAL) Blood Urea Nitrogen 82 MG/DL (7-18) 91 MG/DL (7-18) Creatinine 2.89 MG/DL (0.60-1.30) 2.67 MG/DL (0.60-1.30) Random Glucose 109 MG/DL (74-106) 100 MG/DL (74-106) Calcium Level 9.0 MG/DL (8.5-10.1) 8.7 MG/DL (8.5-10.1) Phosphorus Level 4.1 MG/DL (2.5-4.9) 4.6 MG/DL (2.5-4.9) Magnesium Level 2.2 MG/DL (1.5-2.5) Sodium Level 134 MEQ/L (136-145) 134 MEQ/L (136-145) Potassium Level 4.3 MEQ/L (3.5-5.1) 4.7 MEQ/L (3.5-5.1) Chloride Level 96 MEQ/L (98-107) 98 MEQ/L (98-107) Carbon Dioxide Level 29.4 MEQ/L (21.0-32.0) 27.3 MEQ/L (21.0-32.0) Anion Gap 9 MEQ/L (5-15) 9 MEQ/L (5-15) Estimat Glomerular Filtration Rate 21 ML/MIN (>89) 23 ML/MIN (>89) Albumin 2.1 GM/DL (3.4-5.0) Test 10/01/16 05:00 Blood Urea Nitrogen 84 MG/DL (7-18) Creatinine 2.22 MG/DL (0.60-1.30) Random Glucose 97 MG/DL (74-106) Calcium Level 8.9 MG/DL (8.5-10.1) Sodium Level 135 MEQ/L (136-145) Potassium Level 4.5 MEQ/L (3.5-5.1) Chloride Level 99 MEQ/L (98-107) Carbon Dioxide Level 28.4 MEQ/L (21.0-32.0) Anion Gap 8 MEQ/L (5-15) Estimat Glomerular Filtration Rate 29 ML/MIN (>89) . Result Diagram: 09/30/16 0555 10/01/16 0500 Microbiology Microbiology Date/Time Source Procedure Growth Status 09/28/16 15:55 Blood Other Aerobic Blood Culture - Preliminary NO GROWTH IN 2 DAYS Resulted 09/28/16 15:55 Blood Other Anaerobic Blood Culture - Preliminary NO GROWTH IN 2 DAYS Resulted 09/28/16 15:50 Blood Other Aerobic Blood Culture - Preliminary NO GROWTH IN 2 DAYS Resulted 09/28/16 15:50 Blood Other Anaerobic Blood Culture - Preliminary NO GROWTH IN 2 DAYS Resulted Imaging Last Impressions Chest X-Ray 10/01/16 0600 Signed Impressions: Service Date/Time: Saturday, October 01, 2016 04:35 - CONCLUSION: Patchy bilateral infiltrates. Aorta is quite tortuous. Wing Marroquin MD Chest CT 09/21/16 0000 Signed Impressions: Service Date/Time: Wednesday, September 21, 2016 22:34 - CONCLUSION: 1. Diffuse airspace opacities with ground glass appearance throughout both lungs. 2. Moderate-sized bilateral pleural effusions. 3. Ectatic and dilated descending thoracic aorta, measuring up to 5.[address] Martinez MD Head Magnetic Resonance Angiography 09/10/16 1028 Signed Impressions: Service Date/Time: Saturday, September 10, 2016 10:57 - CONCLUSION: 1. Unremarkable MRA examination without evidence for large vessel occlusion, aneurysm, or vascular malformation. Richardson Haney MD Brain MRI 09/10/16 1028 Signed Impressions: Service Date/Time: Saturday, September 10, 2016 10:57 - CONCLUSION: 1. Findings most consistent with new embolic infarcts involving both the anterior and posterior circulation. Richardson Haney MD Carotid Artery Ultrasound 09/09/16 1028 Signed Impressions: Service Date/Time: September 10:43 - CONCLUSION: 1. Moderate visible plaque without hemodynamically significant stenosis identified. No significant change from August 25. Amado Crain MD Renal Ultrasound 09/09/16 0000 Signed Impressions: Service Date/Time: September 15:41 - CONCLUSION: 1. Cortical atrophy with small bilateral renal cysts. No hydronephrosis. Amado Crain MD Head CT 09/08/16 2251 Signed Impressions: Service Date/Time: Thursday, September 08, 2016 23:41 - CONCLUSION: Stable noncontrast CT with no evidence of hemorrhage or acute infarction. Atrophy and chronic small vessel splenic changes remain. Sanya Cavazos MD Procedures . Assessment and Plan Disease Oriented Problem List: (1) Hypoxemic respiratory failure, chronic (2) ANNY (acute kidney injury) (3) TIA (transient ischemic attack) (4) Acute kidney failure (5) Anemia (6) Hypoalbuminemia (7) Hypertension (8) CKD (chronic kidney disease) stage 3, GFR 30-59 ml/min (9) History of CVA (cerebrovascular accident) (10) Leukocytosis (11) Cerebrovascular accident (CVA) due to embolism (12) CAD (coronary artery disease) (13) Generalized weakness (14) Congestive heart failure (15) S/P CABG x 3 Symptom Scale: (1) Dyspnea (2) Anxiety (3) Malnutrition Pertinent Non-Medical Issues Psychosocial: , 2 adult children. Retired from the [employer]. Retired since 1979. Has lived in [place] since [address]. to his for 60+ years. Spiritual: [place]ian Buddhist, open to spiritual visits Legal: Patient appears capacitated though with limited insight, given his fluctuating oxygenation status would recommend supported decision making involving his who would be the legal proxy if patient incapacitated. Ethical issues impacting care: None known. . Important Contacts Sarai Hartley [phone] / [phone] -work #. dtr Viola Escudero [phone] . Prognosis This patient was admitted for left-sided weakness, dyspnea on 09/08, possible TIA versus CVA. Status post CABG 2 weeks ago. Multiple chronic medical problems. Has had persistent acute renal failure which improved slightly and then worsens. Has had persistent pulmonary infiltrates, atelectasis, intubated/ extubated twice this admission. Given advanced age, multiple chronic medical conditions and current acute issues outs him at risk for further complications, setbacks, and potentially . Code Status: Full Code Plan * Legal decision maker: Patient capacity appears to be fluctuating, with limited insight, given his fluctuating oxygenation status would recommend supported decision making involving his who would be the legal proxy if patient incapacitated. * Goals: Goals aggressive. CODE STATUS: Full code SYMPTOMS: --dyspnea-on and off of BiPAP, ventilator intubated 2, extubated 2. On high flow nasal cannula today. Persistent leukocytosis, ID following and managing antimicrobial therapy. No further recommendations at this time. --malnutrition- albumin 2.2. On and off of BiPAP, ventilator, on and off of tube feeds during those times. Limited by mouth intake due to BiPAP. Renal supplement ordered. No further recommendations at this time. --anxiety-accompanies dyspnea, BiPAP, "claustrophobic", alprazolam 0.25mg q 6hr PRN for anxiety, has not required a dose since 09/29 at 0159. No further recommendations at this time. Palliative care will continue to follow during hospital course as condition evolves, to assist patient/decision-maker with understanding of medical conditions, weighing benefits/burdens of treatment options, for clarification of goals of treatment. Additionally will assist with any symptoms of palliative concern Ronit Blackwood Oct 01, 2016 11:03
--- NOTE | 2016-10-01 12:35 | HHI.IDPN ---
Note Infectious Disease Note Patient on 02 via high flow NC 30%. Lethargic. Afebrile. Noted to have thick yellow sputum. PAST MEDICAL HISTORY 1. Coronary artery disease. 2. History of atrial fibrillation. 3. History of aortic aneurysm. 4. Bladder cancer treated with cystectomy. 5. Coronary artery bypass graft surgery. 6. Colon cancer history. 7. Peripheral vascular disease. 8. Hypertension. 9. History of transurethral resection of bladder tumor. 10.History of abdominal aortic aneurysm repair. ALLERGIES 1. SIMVASTATIN. 2. PRAVASTATIN. 3. ATORVASTATIN. ANTIBIOTICS 1. Zyvox. 2. Levaquin. 3. Meropenem. OBJECTIVE: Vital Signs Date Time Temp Pulse Resp B/P (MAP) Pulse Ox O2 Delivery O2 Flow Rate FiO2 10/01/16 11:00 80 10/01/16 10:00 80 10/01/16 09:14 97 High Flow Nasal Cannula 35.00 100 10/01/16 09:00 89 Nasal Cannula 100 10/01/16 08:00 86 10/01/16 08:00 98.5 90 20 150/95 (113) 94 10/01/16 07:00 94 Non-Rebreather 100 10/01/16 06:00 86 10/01/16 04:00 97.9 84 24 133/63 (86) 92 10/01/16 04:00 84 10/01/16 02:00 82 10/01/16 00:00 86 10/01/16 00:00 97.4 86 23 133/70 (91) 93 09/30/16 22:00 78 09/30/16 20:00 80 09/30/16 20:00 97.9 80 23 148/70 (96) 90 09/30/16 19:00 97 Partial Non-Rebreather 15.00 09/30/16 18:08 99 Non-Rebreather 15.00 09/30/16 18:00 81 09/30/16 16:00 81 09/30/16 16:00 98.2 80 23 136/70 (92) 93 09/30/16 14:00 81 Laboratory Tests Test 09/30/16 05:55 White Blood Count 18.9 TH/MM3 Red Blood Count 2.82 MIL/MM3 Hemoglobin 8.6 GM/DL Hematocrit 26.3 % Mean Corpuscular Volume 93.4 FL Mean Corpuscular Hemoglobin 30.4 PG Mean Corpuscular Hemoglobin Concent 32.6 % Red Cell Distribution Width 15.2 % Platelet Count 444 TH/MM3 Mean Platelet Volume 8.3 FL Laboratory Tests Test 09/30/16 05:55 10/01/16 05:00 Blood Urea Nitrogen 91 MG/DL 84 MG/DL Creatinine 2.67 MG/DL 2.22 MG/DL Random Glucose 100 MG/DL 97 MG/DL Albumin 2.1 GM/DL Calcium Level 8.7 MG/DL 8.9 MG/DL Phosphorus Level 4.6 MG/DL Sodium Level 134 MEQ/L 135 MEQ/L Potassium Level 4.7 MEQ/L 4.5 MEQ/L Chloride Level 98 MEQ/L 99 MEQ/L Carbon Dioxide Level 27.3 MEQ/L 28.4 MEQ/L Anion Gap 9 MEQ/L 8 MEQ/L Estimat Glomerular Filtration Rate 23 ML/MIN 29 ML/MIN Microbiology Date/Time Source Procedure Growth Status 09/28/16 15:55 Blood Other Aerobic Blood Culture - Preliminary NO GROWTH IN 3 DAYS Resulted 09/28/16 15:55 Blood Other Anaerobic Blood Culture - Preliminary NO GROWTH IN 3 DAYS Resulted 09/28/16 15:50 Blood Other Aerobic Blood Culture - Preliminary NO GROWTH IN 3 DAYS Resulted 09/28/16 15:50 Blood Other Anaerobic Blood Culture - Preliminary NO GROWTH IN 3 DAYS Resulted IMAGING: Chest X-Ray 10/01/16 0600 Signed Impressions: Service Date/Time: Saturday, October 01, 2016 04:35 - CONCLUSION: Patchy bilateral infiltrates. Aorta is quite tortuous. Wing Marroquin MD Chest X-Ray 09/30/16 0600 Signed Impressions: Service Date/Time: September 04:42 - CONCLUSION: 1. Stable bilateral airspace and interstitial disease over the last several days. No pneumothorax or significant effusion. Amado Crain MD Chest X-Ray 09/29/16 0000 Signed Impressions: Service Date/Time: Thursday, September 29, 2016 01:36 - CONCLUSION: 1. Improvement in pulmonary edema pattern since September 28. No new consolidation or effusion. Amado Crain MD Chest X-Ray 09/23/16 0000 Signed Impressions: Service Date/Time: September 08:16 - CONCLUSION: 1. Multiple tubes and lines are in good positions. 2. Bilateral pulmonary infiltrates are unchanged compared to the previous examination. Jeffrey Mohan MD Chest CT 09/21/16 0000 Signed Impressions: Service Date/Time: Wednesday, September 21, 2016 22:34 - CONCLUSION: 1. Diffuse airspace opacities with ground glass appearance throughout both lungs. 2. Moderate-sized bilateral pleural effusions. 3. Ectatic and dilated descending thoracic aorta, measuring up to 5.[address] Martinez MD Head Magnetic Resonance Angiography 09/10/16 1028 Signed Impressions: Service Date/Time: Saturday, September 10, 2016 10:57 - CONCLUSION: 1. Unremarkable MRA examination without evidence for large vessel occlusion, aneurysm, or vascular malformation. Richardson Haney MD Brain MRI 09/10/16 1028 Signed Impressions: Service Date/Time: Saturday, September 10, 2016 10:57 - CONCLUSION: 1. Findings most consistent with new embolic infarcts involving both the anterior and posterior circulation. Richardson Haney MD Carotid Artery Ultrasound 09/09/16 1028 Signed Impressions: Service Date/Time: September 10:43 - CONCLUSION: 1. Moderate visible plaque without hemodynamically significant stenosis identified. No significant change from August 25. Amado Crain MD Renal Ultrasound 09/09/16 0000 Signed Impressions: Service Date/Time: September 15:41 - CONCLUSION: 1. Cortical atrophy with small bilateral renal cysts. No hydronephrosis. Amado Crain MD Head CT 09/08/16 2251 Signed Impressions: Service Date/Time: Thursday, September 08, 2016 23:41 - CONCLUSION: Stable noncontrast CT with no evidence of hemorrhage or acute infarction. Atrophy and chronic small vessel splenic changes remain. Sanya Cavazos MD PHYSICAL EXAMINATION GENERAL: Lethargic. HEENT: Sclera is non-icteric. Oropharynx mucosa moist. NECK: No swelling or adenopathy. LUNGS: Basilar rhonchi. HEART: Nl S1S2, No audible murmur, rub or gallop. ABDOMEN: Bowel sounds present. Soft. No tenderness. EXTREMITIES: No clubbing, no cyanosis. no edema. SKIN: No diffuse rash. NEUROLOGIC: Non focal. PSYCH: Calm. IMPRESSION 1. Acute respiratory failure. post intubation x 2. 2. Bilateral lung infiltrates, probable HCAP pneumonia. Pulmonary thinks amiodarone toxicity. 3. Leukocytosis. WBC still elevated. 4. Acute kidney disease. RECOMMENDATIONS Continue Meropenem. Continue PO Zyvox. Continue PO Levaquin. Sputum culture. Monitor WBC. Sae Nova MD Oct 01, 2016 12:35
[2016-10-01] MEDS ORDERED: GLUCAGON 1 MG/ML VIAL OTHER PRN (13:15)
[2016-10-01] MEDS ORDERED: DEXTROSE 50% IN WATER 50 ML VIAL(D50) IV PUSH PRN (13:15)
[2016-10-01] MEDS: INSULIN ASPART SUPPLEMENTAL SCALE SQ SCH ×3 (13:15→23:17)
--- NOTE | 2016-10-01 13:36 | HHI.NPPN ---
Subjective History of Present Illness The patient is a 75 yo [place] male who presented to this facility 09/08 with complaints of R hand weakness. He was here at this facility just 10 days ago for 4-vessel CABG, discharged on 08/29. While undergoing CABG, he suffered a stroke and came in today as he was concerned he was having another. Was having no other neurological issues. We were consulted for acute renal failure. Presenting SCr of 3.65 that has worsened significantly from discharge on 08/29 at 1.53. Appears baseline renal function 1.2-1.6 according to previous records. States he has been at his usual state of health since his hospital discharge besides R hand weakness that resolved on its own while here in the ED. Denies any NVD. No NSAIDs. Denies any urinary issues. Review of previous imaging (namely CTA on 08/24) showed a L sided hydronephrosis extending to UVJ. THe patient was unaware of this. He has hx of bladder CA that was treated by surgical resection at [facility] about 1 year ago. Scheduled for f/u there in 1 month. CTA also revealed abdominal aneurysm that vascular surgery was consulted about and was supposed to have f/u as outpatient. Interval History Pt has been transferred to CVICU Grand-daughter present in room. Still requiring high flow O2. Refusing BiPAP. (Radha Hagen) Review of Systems Respiratory Lungs: SOB (Radha Hagen) Cardiovascular Cardiac: SHEN (Radha Hagen) Objective Data Data Vital Signs Date Time Temp Pulse Resp B/P (MAP) Pulse Ox O2 Delivery O2 Flow Rate FiO2 10/01/16 11:00 80 10/01/16 10:00 80 10/01/16 09:14 97 High Flow Nasal Cannula 35.00 100 10/01/16 09:00 89 Nasal Cannula 100 10/01/16 08:00 86 10/01/16 08:00 98.5 90 20 150/95 (113) 94 10/01/16 07:00 94 Non-Rebreather 100 10/01/16 06:00 86 10/01/16 04:00 97.9 84 24 133/63 (86) 92 10/01/16 04:00 84 10/01/16 02:00 82 10/01/16 00:00 86 10/01/16 00:00 97.4 86 23 133/70 (91) 93 09/30/16 22:00 78 09/30/16 20:00 80 09/30/16 20:00 97.9 80 23 148/70 (96) 90 09/30/16 19:00 97 Partial Non-Rebreather 15.00 09/30/16 18:08 99 Non-Rebreather 15.00 09/30/16 18:00 81 09/30/16 16:00 81 09/30/16 16:00 98.2 80 23 136/70 (92) 93 09/30/16 14:00 81 (Radha Hagen) -: 09/30/16 0555 10/01/16 0500 Imaging Last Impressions Chest X-Ray 10/01/16 0600 Signed Impressions: Service Date/Time: Saturday, October 01, 2016 04:35 - CONCLUSION: Patchy bilateral infiltrates. Aorta is quite tortuous. Wing Marroquin MD Chest CT 09/21/16 0000 Signed Impressions: Service Date/Time: Wednesday, September 21, 2016 22:34 - CONCLUSION: 1. Diffuse airspace opacities with ground glass appearance throughout both lungs. 2. Moderate-sized bilateral pleural effusions. 3. Ectatic and dilated descending thoracic aorta, measuring up to 5.[address] Martinez MD Head Magnetic Resonance Angiography 09/10/16 1028 Signed Impressions: Service Date/Time: Saturday, September 10, 2016 10:57 - CONCLUSION: 1. Unremarkable MRA examination without evidence for large vessel occlusion, aneurysm, or vascular malformation. Richardson Haney MD Brain MRI 09/10/16 1028 Signed Impressions: Service Date/Time: Saturday, September 10, 2016 10:57 - CONCLUSION: 1. Findings most consistent with new embolic infarcts involving both the anterior and posterior circulation. Richardson Haney MD Carotid Artery Ultrasound 09/09/16 1028 Signed Impressions: Service Date/Time: September 10:43 - CONCLUSION: 1. Moderate visible plaque without hemodynamically significant stenosis identified. No significant change from August 25. Amado Crain MD Renal Ultrasound 09/09/16 0000 Signed Impressions: Service Date/Time: September 15:41 - CONCLUSION: 1. Cortical atrophy with small bilateral renal cysts. No hydronephrosis. Amado Crian MD Head CT 09/08/16 4211 Signed Impressions: Service Date/Time: Thursday, September 08, 2016 23:41 - CONCLUSION: Stable noncontrast CT with no evidence of hemorrhage or acute infarction. Atrophy and chronic small vessel splenic changes remain. Sanya Cavazos MD Medication Review Current Medications Medications (Trade) Dose Ordered Sig/Awilda Route Start Time Stop Time Status Last Admin (NS Flush) 2 ml UNSCH PRN IV FLUSH 09/09/16 00:45 (NS Flush) 2 ml BID IV FLUSH 09/09/16 09:00 10/01/16 09:38 (Narcan Inj) 0.4 mg UNSCH PRN IV 09/09/16 00:45 (Xanax) 0.25 mg Q6H PRN PO 09/09/16 13:45 09/29/16 01:59 (Pill Splitter) 1 ea UNSCH PRN OTHER 09/09/16 14:00 (Eliquis) 5 mg BID PO 09/10/16 09:00 10/01/16 09:36 (Catapres) 0.1 mg Q6H PRN PO 09/11/16 14:30 09/19/16 23:02 (Lopressor Inj) 5 mg Q2HR PRN IV PUSH 09/16/16 14:00 09/26/16 05:00 (Apresoline Inj) 10 mg Q6HR PRN IV PUSH 09/16/16 12:45 10/01/16 02:28 (Peridex 0.12% Liq) 15 ml BID@08,20 MT 09/16/16 20:00 09/26/16 20:00 (Racepinephrine 2.25% Neb) 0.5 ml Q1HR NEB PRN NEB 09/17/16 17:15 09/17/16 18:02 (Anne-Colace) 1 tab BID PO 09/19/16 21:00 10/01/16 09:36 (Milk Of Magnesia Liq) 30 ml Q12H PRN PO 09/19/16 13:30 09/19/16 13:30 (Senokot) 17.2 mg Q12H PRN PO 09/19/16 13:30 (Dulcolax Supp) 10 mg DAILY PRN RECTAL 09/19/16 13:30 (Lactulose Liq) 30 ml DAILY PRN PO 09/19/16 13:30 (Pepcid) 10 mg DAILY PO 09/21/16 09:00 10/01/16 09:37 (Albuterol Neb) 2.5 mg Q2HR NEB PRN NEB 09/21/16 12:00 09/29/16 00:54 (Phoslo) 667 mg TID PO 09/21/16 18:00 10/01/16 12:52 (Peridex 0.12% Liq) 15 ml BID@08,20 MT 09/22/16 20:00 09/29/16 08:00 (Zyvox) 600 mg Q12HR PO 09/27/16 21:00 10/01/16 09:36 (Levaquin) 750 mg Q48H PO 09/27/16 20:00 09/29/16 20:26 Meropenem 500 mg/ Sodium Chloride 100 ml @ 200 mls/hr Q12H IV 09/28/16 12:00 10/01/16 12:42 (Lasix Inj) 20 mg DAILY IV PUSH 09/29/16 09:00 10/01/16 09:35 (Deltasone) 30 mg DAILY PO 09/29/16 09:00 10/01/16 09:36 (Ecotrin Ec) 81 mg DAILY PO 09/30/16 09:00 10/01/16 09:36 (Trandate) 100 mg TID PO 09/30/16 13:00 10/01/16 12:52 (NovoLOG SUPPLEMENTAL SCALE) 1 Q6HR SQ 10/01/16 13:15 (D50w (Vial) Inj) 50 ml UNSCH PRN IV PUSH 10/01/16 13:15 (Glucagon Inj) 1 mg UNSCH PRN OTHER 10/01/16 13:15 (Radha Hagen) Physical Exam General Appearance: No Acute Distress (Radha Hagen) Eyes Eye Exam: Sclera White (Rahda Hagen) Pulmonary Resp Exam: Breath Sounds Equal, No Distress, Diminished Breath Sounds (Radha Hagen) Cardiology CV Exam: Regular, Normal Sinus Rhythm (Radha Hagen) Gastrointestinal/Abdomen GI Exam: Soft, Non-Tender, Distended (Radha Hagen) Integumentary Skin Exam: Clear, Warm (Radha Hagen) Extremeties Extremities Exam: No Edema (Radha Hagen) Assessment/Plan Discussed Condition With: Patient Problem List: (1) Acute kidney failure ICD Codes: N17.9 - Acute kidney failure, unspecified Status: Acute Plan: Differential diagnosis at this point as far as acute renal insufficiency is concerned would be atheroembolic disease occurring during previous admission with subsequent decline in renal function and a lesser consideration towards interstitial nephritis possibly related to Protonix. SCr improving. UOP quite good. Would not recommend increasing diuretic therapy. Noted consideration being given to pulmonary issues related to amiodarone. Management will be deferred to pulmonary and or cardiology. Recommend avoidance of Protonix in the future without kidney biopsy to confirm or eliminate incision nephritis. Medications should be adjusted for the patient's renal decline. Avoid nephrotoxic medications including NSAIDs and iodinated contrast dyes. Gadolinium should be avoided as eGFR 30. (2) Chronic kidney disease, stage I ICD Codes: N18.1 - Chronic kidney disease, stage 1 Plan: Able to obtain labs from his outpatient PCP and most recent SCr 0.7 from April 2016 He did have evidence of proteinuria predating admission (3) Hypoxemic respiratory failure, chronic ICD Codes: J96.11 - Chronic respiratory failure with hypoxia Status: Acute Plan: Pt s/p extubation, but not tolerating Bi-PAP. Sats in upper 80s to 90s on NC. (4) TIA (transient ischemic attack) ICD Codes: G45.9 - Transient cerebral ischemic attack, unspecified Status: Acute (5) Hypertension ICD Codes: I10 - Essential (primary) hypertension Status: Acute (6) CAD (coronary artery disease) ICD Codes: I25.10 - Atherosclerotic heart disease of [place] coronary artery without angina pectoris Status: Chronic (7) Congestive heart failure ICD Codes: I50.9 - Heart failure, unspecified Status: Acute Plan: Compensated currently. (8) Anemia ICD Codes: D64.9 - Anemia, unspecified Status: Acute Plan: Of acute illness. Plan The exam, history, and the medical decision-making described in the above note were completed with the assistance of the YADIRA. I reviewed and agree with the findings presented. (Radha Hagen) Problem List: (1) Acute kidney failure ICD Codes: N17.9 - Acute kidney failure, unspecified Status: Acute Plan: Differential diagnosis at this point as far as acute renal insufficiency is concerned would be atheroembolic disease occurring during previous admission with subsequent decline in renal function and a lesser consideration towards interstitial nephritis possibly related to Protonix. SCr improving. UOP quite good. Would not recommend increasing diuretic therapy. Noted consideration being given to pulmonary issues related to amiodarone. Management will be deferred to pulmonary and or cardiology. Recommend avoidance of Protonix in the future without kidney biopsy to confirm or eliminate incision nephritis. Medications should be adjusted for the patient's renal decline. Avoid nephrotoxic medications including NSAIDs and iodinated contrast dyes. Gadolinium should be avoided as eGFR 30. (2) CKD (chronic kidney disease), stage III ICD Codes: N18.3 - Chronic kidney disease, stage 3 (moderate) Status: Chronic (3) Hypoxemic respiratory failure, chronic ICD Codes: J96.11 - Chronic respiratory failure with hypoxia Status: Acute Plan: Pt s/p extubation, but not tolerating Bi-PAP. Sats in upper 80s to 90s on NC. (4) TIA (transient ischemic attack) ICD Codes: G45.9 - Transient cerebral ischemic attack, unspecified Status: Acute (5) Hypertension ICD Codes: I10 - Essential (primary) hypertension Status: Acute (6) CAD (coronary artery disease) ICD Codes: I25.10 - Atherosclerotic heart disease of [place] coronary artery without angina pectoris Status: Chronic (7) Congestive heart failure ICD Codes: I50.9 - Heart failure, unspecified Status: Acute Plan: Compensated currently. (8) Anemia ICD Codes: D64.9 - Anemia, unspecified Status: Acute Plan: Of acute illness. (Liv Cerda MD) Problem Qualifiers (1) TIA (transient ischemic attack): Radha Hagen Oct 01, 2016 13:36 Liv Cerda MD Oct 02, 2016 15:46
[2016-10-01] MEDS ORDERED: FUROSEMIDE 40 MG/4 ML VIAL IV PUSH ONE (15:30)
--- NOTE | 2016-10-01 15:38 | HHI.CCPN ---
Subjective Remarks/Hospital Course 75 y/o man now about 4 weeks following CABG complicated by CVA. Presented back 08/28 with new onset right arm weakness. Hospital course has been complicated by CKD and fluid overload. We have attempted BiPAP for several hours but he remains in distress and although oxygenation is acceptable work of breathing is excessive. Worrisome increasing metabolic acidosis. 09/17: Gas exchange much improved. BNP 1681, ScVO2 71%. It appears that cardiac output is more than adequate for peripheral needs and the primary pathology is renal failure and fluid overload. If we can manage volume I can probably get him extubated. 09/18: Diffuse crackles. Needs to be diuresed today. Tolerating extubation but at risk for hypoxemic failure again. 09/20 - Re consulted due to worsening hypoxia. Currently on nonrebreather mask. Chest x-ray shows worsening consolidation right lobe creatinine slightly improved over. Family request transfer to [facility] however refused. We'll attempt to decipher status currently unknown. 09/21: Remains on nonrebreather mask. Saturations between 89-97%. Chest x-ray unchanged. Not tachypnea. Not confused. 09/22: Radiographic studies show diffuse interstitial process with skip areas - more indicative of infectious/inflammatory process. Sats 85% with labored pattern. Required intubation for deteriorating respiratory status. 09/23: Gas exchange improving. Pulmonary infiltrates remain very concerning - if most recent sputum is benign I would not be opposed to steroids. 09/24: Extubated today. On 3 L nasal cannula. Passed swallow evaluation. Appropriate interactive status post extubation. Subjective 09/29: Critical care reconsult requested by Dr. Meza for respiratory failure. Patient reportedly was on BiPAP this morning. He was given additional diuretic earlier as he was short of breath. With this he seems to have improved somewhat and has been on a nonrebreather facemask for more than a few hours. He states that he is breathing much better. Patient being adamant about not using BiPAP. I had a detailed conversation about the importance of using BiPAP especially at night in view of his history of sleep apnea. Patient did not appear to be in acute distress though he was requiring a nonrebreather facemask at the time of my evaluation. No urgent need for BiPAP or intubation at this time. In fact patient is stating that he is breathing much better than this morning. 09/30: Remains on nonrebreather facemask. Refused BiPAP at night. States that he is breathing better today than yesterday. 10/01: 02 30 L/m 100% FiO2. O2 sats borderline. Episodes of confusion. When I evaluated the patient he was sitting up in bed and was able to converse. Not using accessory muscles of respirations currently. Objective Vital Signs Date Time Temp Pulse Resp B/P (MAP) Pulse Ox O2 Delivery O2 Flow Rate FiO2 10/01/16 15:00 80 10/01/16 12:00 97.5 20 141/86 (104) 98 10/01/16 09:14 High Flow Nasal Cannula 35.00 100 Intake and Output 10/01/16 10/01/16 10/01/16 07:59 15:59 23:59 Intake Total 340 ml Output Total 1150 ml Balance -810 ml Result Diagram: 09/30/16 0555 10/01/16 0500 Imaging Last 24 hours Impressions Chest X-Ray 09/29/16 0000 Signed Impressions: Service Date/Time: Thursday, September 29, 2016 01:36 - CONCLUSION: 1. Improvement in pulmonary edema pattern since September 28. No new consolidation or effusion. Amado Crain MD Last Impressions Chest X-Ray 09/23/16 0000 Signed Impressions: Service Date/Time: September 08:16 - CONCLUSION: 1. Multiple tubes and lines are in good positions. 2. Bilateral pulmonary infiltrates are unchanged compared to the previous examination. Jeffrey Mohan MD Chest CT 09/21/16 0000 Signed Impressions: Service Date/Time: Wednesday, September 21, 2016 22:34 - CONCLUSION: 1. Diffuse airspace opacities with ground glass appearance throughout both lungs. 2. Moderate-sized bilateral pleural effusions. 3. Ectatic and dilated descending thoracic aorta, measuring up to 5.[address] Martinez MD Head Magnetic Resonance Angiography 09/10/16 1028 Signed Impressions: Service Date/Time: Saturday, September 10, 2016 10:57 - CONCLUSION: 1. Unremarkable MRA examination without evidence for large vessel occlusion, aneurysm, or vascular malformation. Richardson Haney MD Brain MRI 09/10/16 1028 Signed Impressions: Service Date/Time: Saturday, September 10, 2016 10:57 - CONCLUSION: 1. Findings most consistent with new embolic infarcts involving both the anterior and posterior circulation. Richardson Haney MD Carotid Artery Ultrasound 09/09/16 1028 Signed Impressions: Service Date/Time: September 10:43 - CONCLUSION: 1. Moderate visible plaque without hemodynamically significant stenosis identified. No significant change from August 25. Amado Crain MD Renal Ultrasound 09/09/16 0000 Signed Impressions: Service Date/Time: , September 09, 2016 15:41 - CONCLUSION: 1. Cortical atrophy with small bilateral renal cysts. No hydronephrosis. Amado Crain MD Head CT 09/08/16 2251 Signed Impressions: Service Date/Time: Thursday, September 08, 2016 23:41 - CONCLUSION: Stable noncontrast CT with no evidence of hemorrhage or acute infarction. Atrophy and chronic small vessel splenic changes remain. Sanya Cavazos MD Objective Remarks GENERAL: 75-year-old male resting in bed on high flow O2 by nasal cannula 30 L/ m 100% FiO2. SKIN: Warm and dry. HEAD: Atraumatic. Normocephalic. NECK: Trachea midline. No thyromegaly CARDIOVASCULAR: IRR. S1, S2 no S4. Without murmur RESPIRATORY: Air entry decreased bilaterally at bases, scattered rhonchi, no wheezing. GASTROINTESTINAL: Abdomen soft, non-tender, nondistended. No guarding. BS active. MUSCULOSKELETAL: Extremities with trace to 1+ lower extremity edema. No obvious deformities. Well perfused. NEUROLOGICAL: Awake alert oriented 2 Strength is equal and symmetric bilaterally. No season the hospital. Can identify granddaughter and . Has episodes of confusion. Procedures none A/P Assessment and Plan Neuro/Psych: Left occipital, bilateral frontal parietal cerebellar CVA subacute Chronic headaches Chronic benzodiazepine use Chronic oxycodone use MRI brain revealed left occipital, bilateral frontal parietal and cerebellar CVA likely [employer] distribution Followed by Dr. Jeffries/neurology. We consulted neurology in view of episodes of confusion. Patient appears nonfocal. 2 unstable to travel for CT head currently. Currently on Xanax 0.25 mg every 6 hours. Anxiety CV: Coronary disease CABG ASCVD Carotid stenosis TAAA Hypertension dyslipidemia History atrial fibrillation status post ablation 2011 Followed by cardiology. Currently on clonidine when necessary. Diuresed. Currently off atorvastatin 40 mg daily/home medication On by mouth Eliquis per cardiology. Off amiodarone and suspected pulmonary toxicity Echocardiogram revealed EF 70%. OHS septal motion./Paradoxical, CARA 50-60 mmHg Resp: Acute hypoxemic respiratory failure Off high flow O2. Refuses BIPAP Incentive spirometry while awake Extubated 09/23 Chest x-ray 09/21 reveals consolidation right upper, middle and lower lobes. Bronchodilator therapy every 6 hours and as indicated Being followed by pulmonary. GI: PO diet as tolerated/renal diet On famotidine 10 mg by mouth daily /renal: History of hydroureter Renal ultrasound Revealed no hydronephrosis Currently on sodium bicarbonate 650 every 8 on with PhosLo 667 3 times a day Continue Lasix. On prednisone daily. Creatinine elevated. Given extra Lasix 40 mg IV now. Endo: Sliding scale insulin if indicated Renal: Acute on chronic kidney injury Continue diuretics. Nephrology follow-up. Noted elevated lambda and kappa Chains/ESR likely secondary underlying acute kidney injury. Evaluated by Dr. Mccollum/hematology Heme: History of colon cancer status post partial colectomy History of bladder cancer Leukocytosis normocytic anemia Monitor CBC daily. Follow trends. ID: Possible hospital-acquired pneumonia On meropenem/Levaquin/Zyvox per ID. Blood cultures 2 09/08 no growth FEN: Hyponatremia Elevated phosphorus Monitor and replete electrolytes MSK: PT evaluate and treat Prophylaxis - GI -famotidine - DVT - SCD/apixaban Access - Right subclavian CVL placed 09/16 Level II follow-up. Maximiliano Turcios MD Oct 01, 2016 15:38
--- NOTE | 2016-10-01 16:48 | PD.CAR.PN ---
CVT Progress Note Subjective/Hospital Course: pt was OOB and stood on side of bed, did participate in exercises recommend continued PT/OT OOB to chair wean 02 as tolerated off amiodarone / concern for toxicity continue pulm toileting 10/01 remains on high flow 02 poor reserve, continue diuresis , antibiotics/ OOB as tolerated Objective: GENERAL: tachypneic / dyspnea with any exertion SKIN: Warm and dry. HEAD: Normocephalic. EYES: No scleral icterus. No injection or drainage. NECK: Supple, trachea midline. No JVD or lymphadenopathy. CARDIOVASCULAR: Regular rate and rhythm without murmurs, gallops, or rubs. RESPIRATORY: bibasilar crackles Breath sounds equal bilaterally. No accessory muscle use. GASTROINTESTINAL: Abdomen soft, non-tender, nondistended. MUSCULOSKELETAL: No cyanosis, or edema. BACK: Nontender without obvious deformity. No CVA tenderness. Vital Signs Date Time Temp Pulse Resp B/P (MAP) Pulse Ox O2 Delivery O2 Flow Rate FiO2 10/01/16 15:00 80 10/01/16 12:00 97.5 79 20 141/86 (104) 98 10/01/16 11:00 80 10/01/16 10:00 80 10/01/16 09:14 97 High Flow Nasal Cannula 35.00 100 10/01/16 09:00 89 Nasal Cannula 100 10/01/16 08:00 86 10/01/16 08:00 98.5 90 20 150/95 (113) 94 10/01/16 07:00 94 Non-Rebreather 100 10/01/16 06:00 86 10/01/16 04:00 97.9 84 24 133/63 (86) 92 10/01/16 04:00 84 10/01/16 02:00 82 10/01/16 00:00 86 10/01/16 00:00 97.4 86 23 133/70 (91) 93 09/30/16 22:00 78 09/30/16 20:00 80 09/30/16 20:00 97.9 80 23 148/70 (96) 90 09/30/16 19:00 97 Partial Non-Rebreather 15.00 09/30/16 18:08 99 Non-Rebreather 15.00 09/30/16 18:00 81 Labs: Laboratory Tests Test 10/01/16 05:00 Blood Urea Nitrogen 84 MG/DL (7-18) Creatinine 2.22 MG/DL (0.60-1.30) Random Glucose 97 MG/DL (74-106) Calcium Level 8.9 MG/DL (8.5-10.1) Sodium Level 135 MEQ/L (136-145) Potassium Level 4.5 MEQ/L (3.5-5.1) Chloride Level 99 MEQ/L (98-107) Carbon Dioxide Level 28.4 MEQ/L (21.0-32.0) Anion Gap 8 MEQ/L (5-15) Estimat Glomerular Filtration Rate 29 ML/MIN (>89) Result Diagram: 09/30/16 0555 10/01/16 0500 (1) History of CVA (cerebrovascular accident) (2) CKD (chronic kidney disease) stage 3, GFR 30-59 ml/min (3) S/P CABG x 3 Plan: ASA, hx of afib on eliquis no amiodarone (4) Hypoxemic respiratory failure, chronic Plan: pulm following , continue diuresis , antibiotics, wean 02 as tolerated Casandra Barton Oct 01, 2016 16:48
--- NOTE | 2016-10-01 19:25 | HHI.PR ---
Subjective Remarks Off Bi pap mask and on high flow O2 at 90 % alert and confused at times. CXR still shows bilateral infiltrates . On prednisone and antibiotics Objective Vital Signs Date Time Temp Pulse Resp B/P (MAP) Pulse Ox O2 Delivery O2 Flow Rate FiO2 10/01/16 16:00 98.0 77 20 150/91 (110) 92 10/01/16 15:00 80 10/01/16 12:00 97.5 79 20 141/86 (104) 98 10/01/16 11:00 80 10/01/16 10:00 80 10/01/16 09:14 97 High Flow Nasal Cannula 35.00 100 10/01/16 09:00 89 Nasal Cannula 100 10/01/16 08:00 86 10/01/16 08:00 98.5 90 20 150/95 (113) 94 10/01/16 07:00 94 Non-Rebreather 100 10/01/16 06:00 86 10/01/16 04:00 97.9 84 24 133/63 (86) 92 10/01/16 04:00 84 10/01/16 02:00 82 10/01/16 00:00 86 10/01/16 00:00 97.4 86 23 133/70 (91) 93 09/30/16 22:00 78 09/30/16 20:00 80 09/30/16 20:00 97.9 80 23 148/70 (96) 90 I/O 09/30/16 09/30/16 09/30/16 10/01/16 10/01/16 10/01/16 06:59 14:59 22:59 06:59 14:59 22:59 Intake Total 340 ml 100 ml 720 ml 340 ml 350 ml Output Total 950 ml 1350 ml 1150 ml 1425 ml Balance -610 ml 100 ml -630 ml -810 ml -1075 ml Intake Oral 240 ml 720 ml 240 ml 200 ml IV Total 100 ml 100 ml 100 ml 150 ml Output Urine Total 950 ml 1350 ml 1150 ml 1425 ml # Bowel Movements 2 0 1 0 Result Diagram: 09/30/16 0555 10/01/16 0500 Objective Remarks GENERAL: This moderately overweight elderly man alert and in no distress HEENT: Head is normocephalic. Pupils are reactive. Tongue is moist. Throat clear NECK: Supple with venous distention. Trachea is midline. No thyroid enlargement. CHEST: Equal movements with diminished breath sounds at the bases with bibasilar crackles.Occ Wheeze heard. HEART: Sounds are irregular S1-S2. No murmur. ABDOMEN: Soft. Protuberant without masses. No organomegaly. EXTREMITIES: Decreased pulses. Good button bradder bilaterally.Moves legs .Edema 1 + SKIN: warm. Assessment and Plan Assessment and Plan IMPRESSION 1. Acute respiratory failure.Resolving 2. Fluid overload status with pulmonary edema. 3. Acute kidney failure.Resolving 4. History of cerebrovascular accident. 5. Bibasilar atelectasis with possible pneumonia. 6. History of colon cancer and bladder cancer. Plan : 1. 2. O2 at 80 % with High Flow. 3. Nebs qid ,Duoneb. 4. BiPAP 15/5 FIO2 50 % at HS if he agrees. 5. Antibiotics per ID 6. Lasix 20 mg IV daily 7. PT Evaluation. 8. BMP ,CBC in am 9. Chest X ray in am 10.Cont Prednisone 30 mg daily Jaime Encinas MD Oct 01, 2016 19:25
[2016-10-01] MEDS: LEVOFLOXACIN 750 MG TAB PO SCH (20:25)
--- NOTE | 2016-10-01 20:41 | PD.CARD.PN ---
Subjective Subjective Remarks No CP, less SOB, feels better Objective Medications Current Medications Medications (Trade) Dose Ordered Sig/Awilda Route Start Time Stop Time Status Last Admin (NS Flush) 2 ml UNSCH PRN IV FLUSH 09/09/16 00:45 (NS Flush) 2 ml BID IV FLUSH 09/09/16 09:00 10/01/16 20:26 (Narcan Inj) 0.4 mg UNSCH PRN IV 09/09/16 00:45 (Xanax) 0.25 mg Q6H PRN PO 09/09/16 13:45 09/29/16 01:59 (Pill Splitter) 1 ea UNSCH PRN OTHER 09/09/16 14:00 (Eliquis) 5 mg BID PO 09/10/16 09:00 10/01/16 20:25 (Catapres) 0.1 mg Q6H PRN PO 09/11/16 14:30 09/19/16 23:02 (Lopressor Inj) 5 mg Q2HR PRN IV PUSH 09/16/16 14:00 09/26/16 05:00 (Apresoline Inj) 10 mg Q6HR PRN IV PUSH 09/16/16 12:45 10/01/16 16:23 (Peridex 0.12% Liq) 15 ml BID@08,20 MT 09/16/16 20:00 09/26/16 20:00 (Racepinephrine 2.25% Neb) 0.5 ml Q1HR NEB PRN NEB 09/17/16 17:15 09/17/16 18:02 (Anne-Colace) 1 tab BID PO 09/19/16 21:00 10/01/16 20:25 (Milk Of Magnesia Liq) 30 ml Q12H PRN PO 09/19/16 13:30 09/19/16 13:30 (Senokot) 17.2 mg Q12H PRN PO 09/19/16 13:30 (Dulcolax Supp) 10 mg DAILY PRN RECTAL 09/19/16 13:30 (Lactulose Liq) 30 ml DAILY PRN PO 09/19/16 13:30 (Pepcid) 10 mg DAILY PO 09/21/16 09:00 10/01/16 09:37 (Albuterol Neb) 2.5 mg Q2HR NEB PRN NEB 09/21/16 12:00 09/29/16 00:54 (Phoslo) 667 mg TID PO 09/21/16 18:00 10/01/16 18:25 (Peridex 0.12% Liq) 15 ml BID@08,20 MT 09/22/16 20:00 09/29/16 08:00 (Zyvox) 600 mg Q12HR PO 09/27/16 21:00 10/01/16 20:25 (Levaquin) 750 mg Q48H PO 09/27/16 20:00 10/01/16 20:25 Meropenem 500 mg/ Sodium Chloride 100 ml @ 200 mls/hr Q12H IV 09/28/16 12:00 10/01/16 12:42 (Lasix Inj) 20 mg DAILY IV PUSH 09/29/16 09:00 10/01/16 09:35 (Deltasone) 30 mg DAILY PO 09/29/16 09:00 10/01/16 09:36 (Ecotrin Ec) 81 mg DAILY PO 09/30/16 09:00 10/01/16 09:36 (Trandate) 100 mg TID PO 09/30/16 13:00 10/01/16 18:25 (NovoLOG SUPPLEMENTAL SCALE) 1 Q6HR SQ 10/01/16 13:15 10/01/16 18:27 (D50w (Vial) Inj) 50 ml UNSCH PRN IV PUSH 10/01/16 13:15 (Glucagon Inj) 1 mg UNSCH PRN OTHER 10/01/16 13:15 Vital Signs / I&O Vital Signs Date Time Temp Pulse Resp B/P (MAP) Pulse Ox O2 Delivery O2 Flow Rate FiO2 10/01/16 16:00 98.0 77 20 150/91 (110) 92 10/01/16 15:00 80 10/01/16 12:00 97.5 79 20 141/86 (104) 98 10/01/16 11:00 80 10/01/16 10:00 80 10/01/16 09:14 97 High Flow Nasal Cannula 35.00 100 10/01/16 09:00 89 Nasal Cannula 100 10/01/16 08:00 86 10/01/16 08:00 98.5 90 20 150/95 (113) 94 10/01/16 07:00 94 Non-Rebreather 100 10/01/16 06:00 86 10/01/16 04:00 97.9 84 24 133/63 (86) 92 10/01/16 04:00 84 10/01/16 02:00 82 10/01/16 00:00 86 10/01/16 00:00 97.4 86 23 133/70 (91) 93 09/30/16 22:00 78 I/O 09/30/16 09/30/16 09/30/16 10/01/16 10/01/16 10/01/16 07:00 15:00 23:00 07:00 15:00 23:00 Intake Total 340 ml 100 ml 720 ml 340 ml 350 ml Output Total 950 ml 1350 ml 1150 ml 1425 ml Balance -610 ml 100 ml -630 ml -810 ml -1075 ml Intake Oral 240 ml 720 ml 240 ml 200 ml IV Total 100 ml 100 ml 100 ml 150 ml Output Urine Total 950 ml 1350 ml 1150 ml 1425 ml # Bowel Movements 2 0 1 0 Physical Exam GENERAL: In NAD SKIN: Warm and dry. HEAD: Normocephalic. EYES: No scleral icterus. No injection or drainage. NECK: Supple, trachea midline. No JVD or lymphadenopathy. CARDIOVASCULAR: Regular rate and rhythm without murmurs, gallops, or rubs. RESPIRATORY: Breath sounds equal bilaterally. No accessory muscle use. GASTROINTESTINAL: Abdomen soft, non-tender, nondistended. MUSCULOSKELETAL: No cyanosis, or edema. Laboratory Laboratory Tests Test 10/01/16 05:00 Blood Urea Nitrogen 84 MG/DL Creatinine 2.22 MG/DL Random Glucose 97 MG/DL Calcium Level 8.9 MG/DL Sodium Level 135 MEQ/L Potassium Level 4.5 MEQ/L Chloride Level 99 MEQ/L Carbon Dioxide Level 28.4 MEQ/L Anion Gap 8 MEQ/L Estimat Glomerular Filtration Rate 29 ML/MIN Imaging Last Impressions Chest X-Ray 10/01/16 0600 Signed Impressions: Service Date/Time: Saturday, October 01, 2016 04:35 - CONCLUSION: Patchy bilateral infiltrates. Aorta is quite tortuous. Wing Marroquin MD Chest CT 09/21/16 0000 Signed Impressions: Service Date/Time: Wednesday, September 21, 2016 22:34 - CONCLUSION: 1. Diffuse airspace opacities with ground glass appearance throughout both lungs. 2. Moderate-sized bilateral pleural effusions. 3. Ectatic and dilated descending thoracic aorta, measuring up to 5.[address] Martinez MD Head Magnetic Resonance Angiography 09/10/16 1028 Signed Impressions: Service Date/Time: Saturday, September 10, 2016 10:57 - CONCLUSION: 1. Unremarkable MRA examination without evidence for large vessel occlusion, aneurysm, or vascular malformation. Richardson Haney MD Brain MRI 09/10/16 1028 Signed Impressions: Service Date/Time: Saturday, September 10, 2016 10:57 - CONCLUSION: 1. Findings most consistent with new embolic infarcts involving both the anterior and posterior circulation. Richardson Haney MD Carotid Artery Ultrasound 09/09/16 1028 Signed Impressions: Service Date/Time: September 10:43 - CONCLUSION: 1. Moderate visible plaque without hemodynamically significant stenosis identified. No significant change from August 25. Amado Crain MD Renal Ultrasound 09/09/16 0000 Signed Impressions: Service Date/Time: September 15:41 - CONCLUSION: 1. Cortical atrophy with small bilateral renal cysts. No hydronephrosis. Amado Crain MD Head CT 09/08/16 2251 Signed Impressions: Service Date/Time: Thursday, September 08, 2016 23:41 - CONCLUSION: Stable noncontrast CT with no evidence of hemorrhage or acute infarction. Atrophy and chronic small vessel splenic changes remain. Sanya Cavazos MD Assessment and Plan Problem List: (1) History of CVA (cerebrovascular accident) ICD Codes: Z86.73 - Personal history of transient ischemic attack (TIA), and cerebral infarction without residual deficits Status: Acute (2) CKD (chronic kidney disease) stage 3, GFR 30-59 ml/min ICD Codes: N18.3 - Chronic kidney disease, stage 3 (moderate) Status: Acute (3) S/P CABG x 3 ICD Codes: Z95.1 - Presence of aortocoronary bypass graft Status: Acute (4) Atrial fibrillation ICD Codes: I48.91 - Unspecified atrial fibrillation (5) Acute hypoxemic respiratory failure ICD Codes: J96.01 - Acute respiratory failure with hypoxia Status: Acute (6) Hypertension ICD Codes: I10 - Essential (primary) hypertension Status: Acute (7) Thoracic aortic aneurysm without rupture ICD Codes: I71.2 - Thoracic aortic aneurysm, without rupture Status: Acute Assessment and Plan Continue ICU care. Pulmonary evaluation in progress. Off amio due to possible pulmonary toxicity. Continue steroids. Monitor renal fx. No clear evidence of ACS at this time. Michael Tompkins MD Oct 01, 2016 20:41
[2016-10-01] MEDS: RESP: ALBUTEROL 2.5 MG/3 ML NEB (PRN) NEB (21:27)
[2016-10-02] VITALS (26 sets, daily range): BP systolic 116–152; BP diastolic 50–85; PULSE 76–96; RESP 15–20; TEMP 97–98.7; O2SAT 88–98
[2016-10-02 05:00] LABS: HEMATOCRIT 23.5 % (39.0-51.0); MEAN CELL VOLUME 93.3 FL (80.0-100.0); MEAN CORPUSCULAR HEMOGLOBIN 29.5 PG (27.0-34.0); MEAN CORPUSCULAR HGB CONC 31.6 % (32.0-36.0); PLATELET COUNT 378 TH/MM3 (150-450); RED BLOOD COUNT 2.51 MIL/MM3 (4.50-5.90); RED CELL DISTRIBUTION WIDTH 15.1 % (11.6-17.2); REVIEW FLAG FINAL; WHITE BLOOD COUNT 11.9 TH/MM3 (4.0-11.0)
[2016-10-02 05:15] LABS: BICARBONATE 28.9 MEQ/L (21.0-32.0); POTASSIUM 4.4 MEQ/L (3.5-5.1)
[2016-10-02] MEDS: INSULIN ASPART SUPPLEMENTAL SCALE SQ SCH ×3 (05:22→18:22)
[2016-10-02] MEDS: CHLORHEXIDINE 0.12% (ORAL KIT) 15 ML CUP MT SCH ×4 (08:00→20:00)
--- NOTE | 2016-10-02 08:55 | HHI.CCPN ---
Subjective Remarks/Hospital Course 75 y/o man now about 4 weeks following CABG complicated by CVA. Presented back 08/28 with new onset right arm weakness. Hospital course has been complicated by CKD and fluid overload. We have attempted BiPAP for several hours but he remains in distress and although oxygenation is acceptable work of breathing is excessive. Worrisome increasing metabolic acidosis. 09/17: Gas exchange much improved. BNP 1681, ScVO2 71%. It appears that cardiac output is more than adequate for peripheral needs and the primary pathology is renal failure and fluid overload. If we can manage volume I can probably get him extubated. 09/18: Diffuse crackles. Needs to be diuresed today. Tolerating extubation but at risk for hypoxemic failure again. 09/20 - Re consulted due to worsening hypoxia. Currently on nonrebreather mask. Chest x-ray shows worsening consolidation right lobe creatinine slightly improved over. Family request transfer to [facility] however refused. We'll attempt to decipher status currently unknown. 09/21: Remains on nonrebreather mask. Saturations between 89-97%. Chest x-ray unchanged. Not tachypnea. Not confused. 09/22: Radiographic studies show diffuse interstitial process with skip areas - more indicative of infectious/inflammatory process. Sats 85% with labored pattern. Required intubation for deteriorating respiratory status. 09/23: Gas exchange improving. Pulmonary infiltrates remain very concerning - if most recent sputum is benign I would not be opposed to steroids. 09/24: Extubated today. On 3 L nasal cannula. Passed swallow evaluation. Appropriate interactive status post extubation. Subjective 09/29: Critical care reconsult requested by Dr. Meza for respiratory failure. Patient reportedly was on BiPAP this morning. He was given additional diuretic earlier as he was short of breath. With this he seems to have improved somewhat and has been on a nonrebreather facemask for more than a few hours. He states that he is breathing much better. Patient being adamant about not using BiPAP. I had a detailed conversation about the importance of using BiPAP especially at night in view of his history of sleep apnea. Patient did not appear to be in acute distress though he was requiring a nonrebreather facemask at the time of my evaluation. No urgent need for BiPAP or intubation at this time. In fact patient is stating that he is breathing much better than this morning. 09/30: Remains on nonrebreather facemask. Refused BiPAP at night. States that he is breathing better today than yesterday. 10/01: 02 30 L/m 100% FiO2. O2 sats borderline. Episodes of confusion. When I evaluated the patient he was sitting up in bed and was able to converse. Not using accessory muscles of respirations currently. 10/02: The patient is alert and oriented currently has been weaned down to high flow nasal cannula with an FiO2 of 65%, maintaining O2 saturation to 95%. Patient is appropriately conversant no episodes of confusion noted. Objective Vital Signs Date Time Temp Pulse Resp B/P (MAP) Pulse Ox O2 Delivery O2 Flow Rate FiO2 10/02/16 07:39 88 High Flow Nasal Cannula 35.00 80 10/02/16 04:00 98.7 88 15 133/50 (77) Intake and Output 10/02/16 10/02/16 10/03/16 08:00 16:00 00:00 Intake Total 250 ml Output Total 1125 ml Balance -875 ml Result Diagram: 10/02/16 0420 10/02/16 0420 Imaging Last 24 hours Impressions Chest X-Ray 09/29/16 0000 Signed Impressions: Service Date/Time: Thursday, September 29, 2016 01:36 - CONCLUSION: 1. Improvement in pulmonary edema pattern since September 28. No new consolidation or effusion. Amado Crain MD Last Impressions Chest X-Ray 09/23/16 0000 Signed Impressions: Service Date/Time: September 08:16 - CONCLUSION: 1. Multiple tubes and lines are in good positions. 2. Bilateral pulmonary infiltrates are unchanged compared to the previous examination. Jeffrey Mohan MD Chest CT 09/21/16 0000 Signed Impressions: Service Date/Time: Wednesday, September 21, 2016 22:34 - CONCLUSION: 1. Diffuse airspace opacities with ground glass appearance throughout both lungs. 2. Moderate-sized bilateral pleural effusions. 3. Ectatic and dilated descending thoracic aorta, measuring up to 5.[address] Martinez MD Head Magnetic Resonance Angiography 09/10/16 1028 Signed Impressions: Service Date/Time: Saturday, September 10, 2016 10:57 - CONCLUSION: 1. Unremarkable MRA examination without evidence for large vessel occlusion, aneurysm, or vascular malformation. Richardson Haney MD Brain MRI 09/10/16 1028 Signed Impressions: Service Date/Time: Saturday, September 10, 2016 10:57 - CONCLUSION: 1. Findings most consistent with new embolic infarcts involving both the anterior and posterior circulation. Richardson Haney MD Carotid Artery Ultrasound 09/09/16 1028 Signed Impressions: Service Date/Time: September 10:43 - CONCLUSION: 1. Moderate visible plaque without hemodynamically significant stenosis identified. No significant change from August 25. Amado Crain MD Renal Ultrasound 09/09/16 0000 Signed Impressions: Service Date/Time: , September 09, 2016 15:41 - CONCLUSION: 1. Cortical atrophy with small bilateral renal cysts. No hydronephrosis. Amado Crain MD Head CT 09/08/16 2251 Signed Impressions: Service Date/Time: Thursday, September 08, 2016 23:41 - CONCLUSION: Stable noncontrast CT with no evidence of hemorrhage or acute infarction. Atrophy and chronic small vessel splenic changes remain. Sanya Cavazos MD Objective Remarks GENERAL: 75-year-old male sitting up in chair on high flow O2 by nasal cannula 30 L/m 65% FiO2. Appropriately conversant SKIN: Warm and dry. HEAD: Atraumatic. Normocephalic. NECK: Trachea midline. No thyromegaly CARDIOVASCULAR: IRR. S1, S2 no S4. Without murmur RESPIRATORY: Air entry decreased bilaterally at bases, scattered rhonchi, no wheezing. GASTROINTESTINAL: Abdomen soft, non-tender, nondistended. No guarding. BS active. MUSCULOSKELETAL: Extremities with trace to 1+ B/L lower extremity edema. No obvious deformities. Brisk capillary refill NEUROLOGICAL: GCS 15 Awake alert oriented 3. Strength is equal and symmetric bilaterally. C Procedures A/P Assessment and Plan Neuro/Psych: Left occipital, bilateral frontal parietal cerebellar CVA subacute Chronic headaches Chronic benzodiazepine use Chronic oxycodone use MRI brain revealed left occipital, bilateral frontal parietal and cerebellar CVA likely [employer] distribution Followed by Dr. Jeffries/neurology. 10/01 consulted neurology in view of episodes of confusion. Currently on Xanax 0.25 mg every 6 hours PRN Anxiety Patient stable neurologically intact alert and oriented 3 RASS 0 this am, will follow-up recommendations of Neurology CV: Coronary disease CABG ASCVD Carotid stenosis TAAA Hypertension dyslipidemia History atrial fibrillation status post ablation 2011 Followed by cardiology. Currently on clonidine when necessary. Diuresed. Currently off atorvastatin 40 mg daily/home medication On PO Eliquis per cardiology. Off amiodarone and suspected pulmonary toxicity Echocardiogram revealed EF 70%. OHS septal motion./Paradoxical, CARA 50-60 mmHg Resp: Acute hypoxemic respiratory failure On high flow O2 with FIO2 @ 65%. Incentive spirometry every hour while awake Extubated 09/23 Chest x-ray 09/21 reveals consolidation right upper, middle and lower lobes. Repeat chest x-ray in a.m. Bronchodilator therapy every 6 hours and as indicated Being followed by pulmonary. Continued steroids and antibiotics GI: PO diet as tolerated/renal diet On famotidine 10 mg by mouth daily /renal: History of hydroureter Renal ultrasound Revealed no hydronephrosis Currently on sodium bicarbonate 650 every 8 on with PhosLo 667 3 times a day Continue Lasix. On prednisone daily. Creatinine improving 2.2->2.06 Endo: Sliding scale insulin if indicated Renal: Acute on chronic kidney injury Continue diuretics. Nephrology follow-up. Noted elevated lambda and kappa Chains/ESR likely secondary underlying acute kidney injury. Evaluated by Dr. Mccollum/hematology Heme: History of colon cancer status post partial colectomy History of bladder cancer Leukocytosis normocytic anemia Monitor CBC daily. Follow trends. ID: Possible hospital-acquired pneumonia On meropenem/Levaquin/Zyvox per ID. Blood cultures 2 09/08 no growth FEN: Hyponatremia Elevated phosphorus Monitor and replete electrolytes MSK: PT evaluate and treat Prophylaxis - GI -famotidine - DVT - SCD/apixaban Access - Right subclavian CVL placed 09/16 Dispo: Discussed with patient and [employer] at bedside. Level 2. Physician Elise Floyd MD Oct 02, 2016 08:55
[2016-10-02] MEDS: CALCIUM ACETATE 667 MG CAP PO SCH ×3 (09:00→18:20)
[2016-10-02] MEDS: DOCUSATE SODIUM 50 MG/SENNA 8.6 MG TAB PO SCH ×2 (09:00→20:37)
[2016-10-02] MEDS: LABETALOL HCL 100 MG TAB PO SCH ×3 (09:00→18:20)
[2016-10-02] MEDS: LINEZOLID 600 MG TAB PO SCH ×2 (09:00→20:37)
[2016-10-02] MEDS: ASPIRIN EC 81 MG TABEC PO SCH (09:00)
[2016-10-02] MEDS: SODIUM CHLORIDE 0.9% FLUSH 10 ML FLUSH IV FLUSH SCH ×2 (09:00→20:38)
[2016-10-02] MEDS: APIXABAN 5 MG TABLET PO SCH ×2 (09:00→20:37)
[2016-10-02] MEDS: FAMOTIDINE 20 MG TAB PO SCH (09:00)
[2016-10-02] MEDS: FUROSEMIDE 20 MG/2 ML VIAL IV PUSH SCH (09:00)
[2016-10-02] MEDS: predniSONE 10 MG TAB PO SCH (09:00)
[2016-10-02] MEDS ORDERED: SODIUM CHLOR 0.9% 250 ML INJ 250 ML IV ONE (09:30)
--- NOTE | 2016-10-02 09:36 | PD.CAR.PN ---
CVT Progress Note Subjective/Hospital Course: pt was OOB and stood on side of bed, did participate in exercises recommend continued PT/OT OOB to chair wean 02 as tolerated off amiodarone / concern for toxicity continue pulm toileting 10/01 remains on high flow 02 poor reserve, continue diuresis , antibiotics/ OOB as tolerated 10/02/16 continues on high flow O2 No c/o Objective: Vital Signs Date Time Temp Pulse Resp B/P (MAP) Pulse Ox O2 Delivery O2 Flow Rate FiO2 10/02/16 09:06 92 High Flow Nasal Cannula 35.00 100 10/02/16 07:39 88 High Flow Nasal Cannula 35.00 80 10/02/16 04:30 97 High Flow Nasal Cannula 35.00 80 10/02/16 04:00 98.7 88 15 133/50 (77) 95 10/02/16 03:00 87 10/02/16 00:00 98.7 82 18 137/80 (99) 94 10/01/16 23:00 76 10/01/16 21:40 94 High Flow Nasal Cannula 30.00 100 10/01/16 20:00 98.6 82 21 132/83 (99) 94 10/01/16 19:00 82 10/01/16 19:00 95 Nasal Cannula 10/01/16 16:00 98.0 77 20 150/91 (110) 92 10/01/16 15:00 80 10/01/16 12:00 97.5 79 20 141/86 (104) 98 10/01/16 11:00 80 10/01/16 10:00 80 Labs: Laboratory Tests Test 10/02/16 04:20 White Blood Count 11.9 TH/MM3 (4.0-11.0) Red Blood Count 2.51 MIL/MM3 (4.50-5.90) Hemoglobin 7.4 GM/DL (13.0-17.0) Hematocrit 23.5 % (39.0-51.0) Mean Corpuscular Volume 93.3 FL (80.0-100.0) Mean Corpuscular Hemoglobin 29.5 PG (27.0-34.0) Mean Corpuscular Hemoglobin Concent 31.6 % (32.0-36.0) Red Cell Distribution Width 15.1 % (11.6-17.2) Platelet Count 378 TH/MM3 (150-450) Mean Platelet Volume 7.6 FL (7.0-11.0) Blood Urea Nitrogen 80 MG/DL (7-18) Creatinine 2.06 MG/DL (0.60-1.30) Random Glucose 87 MG/DL (74-106) Albumin 2.1 GM/DL (3.4-5.0) Calcium Level 8.4 MG/DL (8.5-10.1) Phosphorus Level 4.2 MG/DL (2.5-4.9) Sodium Level 134 MEQ/L (136-145) Potassium Level 4.4 MEQ/L (3.5-5.1) Chloride Level 98 MEQ/L (98-107) Carbon Dioxide Level 28.9 MEQ/L (21.0-32.0) Anion Gap 7 MEQ/L (5-15) Estimat Glomerular Filtration Rate 32 ML/MIN (>89) Result Diagram: 10/02/1641910/02/16419 Cardiovascular: RRR Telemetry: SR GI/: NABS Incision: dry and intact Plan: Anemic - transfuse 2 units of pRBC and lasix 40mg after each unit Taper prednisone Continues on antibiotics - all cultures negative Wean O2 (1) History of CVA (cerebrovascular accident) (2) CKD (chronic kidney disease) stage 3, GFR 30-59 ml/min (3) S/P CABG x 3 (4) Atrial fibrillation (5) Acute hypoxemic respiratory failure (6) Hypertension (7) Thoracic aortic aneurysm without rupture Cece Zamora MD Oct 02, 2016 09:36
[2016-10-02] MEDS: MEROPENEM INJ 500 MG in SODIUM CHLORIDE 0.9% INJ 100 ML IV SCH (11:53)
--- NOTE | 2016-10-02 12:04 | HHI.NPPN ---
Subjective History of Present Illness The patient is a 75 yo [place] male who presented to this facility 09/08 with complaints of R hand weakness. He was here at this facility just 10 days ago for 4-vessel CABG, discharged on 08/29. While undergoing CABG, he suffered a stroke and came in today as he was concerned he was having another. Was having no other neurological issues. We were consulted for acute renal failure. Presenting SCr of 3.65 that has worsened significantly from discharge on 08/29 at 1.53. Appears baseline renal function 1.2-1.6 according to previous records. States he has been at his usual state of health since his hospital discharge besides R hand weakness that resolved on its own while here in the ED. Denies any NVD. No NSAIDs. Denies any urinary issues. Review of previous imaging (namely CTA on 08/24) showed a L sided hydronephrosis extending to UVJ. THe patient was unaware of this. He has hx of bladder CA that was treated by surgical resection at [facility] about 1 year ago. Scheduled for f/u there in 1 month. CTA also revealed abdominal aneurysm that vascular surgery was consulted about and was supposed to have f/u as outpatient. Review of Systems Respiratory Lungs: SOB Cardiovascular Cardiac: SHEN Objective Data Data 10/02/16 10/03/16 18:59 06:59 Intake Total 100 ml Balance 100 ml IV Total 100 ml Vital Signs Date Time Temp Pulse Resp B/P (MAP) Pulse Ox O2 Delivery O2 Flow Rate FiO2 10/02/16 11:00 95 10/02/16 10:10 94 Non-Rebreather 15.00 10/02/16 09:06 92 High Flow Nasal Cannula 35.00 100 10/02/16 08:00 97.7 96 18 129/78 (95) 98 10/02/16 07:39 88 High Flow Nasal Cannula 35.00 80 10/02/16 07:00 95 10/02/16 07:00 Nasal Cannula 10/02/16 04:30 97 High Flow Nasal Cannula 35.00 80 10/02/16 04:00 98.7 88 15 133/50 (77) 95 10/02/16 03:00 87 10/02/16 00:00 98.7 82 18 137/80 (99) 94 10/01/16 23:00 76 10/01/16 21:40 94 High Flow Nasal Cannula 30.00 100 10/01/16 20:00 98.6 82 21 132/83 (99) 94 10/01/16 19:00 82 10/01/16 19:00 95 Nasal Cannula 10/01/16 16:00 98.0 77 20 150/91 (110) 92 10/01/16 15:00 80 -: 10/02/16 0420 10/02/16 0420 Physical Exam General Appearance: No Acute Distress Eyes Eye Exam: Sclera White Pulmonary Resp Exam: Breath Sounds Equal, No Distress, Diminished Breath Sounds Cardiology CV Exam: Regular, Normal Sinus Rhythm Gastrointestinal/Abdomen GI Exam: Soft, Non-Tender, Distended Integumentary Skin Exam: Clear, Warm Extremeties Extremities Exam: No Edema Assessment/Plan Discussed Condition With: Patient Problem List: (1) Acute kidney failure ICD Codes: N17.9 - Acute kidney failure, unspecified Status: Acute Plan: Differential diagnosis at this point as far as acute renal insufficiency is concerned would be ATN, less likely atheroembolic disease occurring during previous admission with subsequent decline in renal function and a lesser consideration towards interstitial nephritis possibly related to Protonix. SCr improving. UOP quite good. 2.5 L Cr declined Noted consideration being given to pulmonary issues related to amiodarone. Management will be deferred to pulmonary and or cardiology. Recommend avoidance of Protonix in the future without kidney biopsy to confirm or eliminate incision nephritis. Medications should be adjusted for the patient's renal decline. Avoid nephrotoxic medications including NSAIDs and iodinated contrast dyes. Gadolinium should be avoided as eGFR 30. (2) Chronic kidney disease, stage I ICD Codes: N18.1 - Chronic kidney disease, stage 1 Plan: Able to obtain labs from his outpatient PCP and most recent SCr 0.7 from April 2016 He did have evidence of proteinuria predating admission (3) Hypoxemic respiratory failure, chronic ICD Codes: J96.11 - Chronic respiratory failure with hypoxia Status: Acute Plan: Pt s/p extubation, but not tolerating Bi-PAP. Sats in upper 80s to 90s on NC. (4) TIA (transient ischemic attack) ICD Codes: G45.9 - Transient cerebral ischemic attack, unspecified Status: Acute (5) Hypertension ICD Codes: I10 - Essential (primary) hypertension Status: Acute (6) CAD (coronary artery disease) ICD Codes: I25.10 - Atherosclerotic heart disease of [place] coronary artery without angina pectoris Status: Chronic (7) Congestive heart failure ICD Codes: I50.9 - Heart failure, unspecified Status: Acute Plan: Compensated currently. (8) Anemia ICD Codes: D64.9 - Anemia, unspecified Status: Acute Plan: Of acute illness. Problem Qualifiers (1) TIA (transient ischemic attack): Walker Bull MD Oct 02, 2016 12:04
--- NOTE | 2016-10-02 16:54 | HHI.NPPN ---
Subjective History of Present Illness The patient is a 75 yo [place] male who presented to this facility 09/08 with complaints of R hand weakness. He was here at this facility just 10 days ago for 4-vessel CABG, discharged on 08/29. While undergoing CABG, he suffered a stroke and came in today as he was concerned he was having another. Was having no other neurological issues. We were consulted for acute renal failure. Presenting SCr of 3.65 that has worsened significantly from discharge on 08/29 at 1.53. Appears baseline renal function 1.2-1.6 according to previous records. States he has been at his usual state of health since his hospital discharge besides R hand weakness that resolved on its own while here in the ED. Denies any NVD. No NSAIDs. Denies any urinary issues. Review of previous imaging (namely CTA on 08/24) showed a L sided hydronephrosis extending to UVJ. THe patient was unaware of this. He has hx of bladder CA that was treated by surgical resection at [facility] about 1 year ago. Scheduled for f/u there in 1 month. CTA also revealed abdominal aneurysm that vascular surgery was consulted about and was supposed to have f/u as outpatient. Interval History Patient had no verbal complaints. Review of Systems Respiratory Lungs: SOB Cardiovascular Cardiac: SHEN Objective Data Data 10/02/16 10/03/16 19:00 07:00 Intake Total 110 ml Balance 110 ml IV Total 100 ml Blood Product IV Normal Saline Flush 10 ml Vital Signs Date Time Temp Pulse Resp B/P (MAP) Pulse Ox O2 Delivery O2 Flow Rate FiO2 10/02/16 15:00 80 10/02/16 14:30 97.5 79 16 126/70 95 10/02/16 14:08 97.0 80 16 136/78 94 10/02/16 12:00 97.5 80 18 126/75 (92) 94 Automatic Cuff 10/02/16 11:00 95 10/02/16 10:10 94 Non-Rebreather 15.00 10/02/16 09:06 92 High Flow Nasal Cannula 35.00 100 10/02/16 08:00 85 10/02/16 08:00 97.7 96 18 129/78 (95) 98 10/02/16 07:39 88 High Flow Nasal Cannula 35.00 80 10/02/16 07:00 95 10/02/16 07:00 Nasal Cannula 10/02/16 04:30 97 High Flow Nasal Cannula 35.00 80 10/02/16 04:00 98.7 88 15 133/50 (77) 95 10/02/16 03:00 87 10/02/16 00:00 98.7 82 18 137/80 (99) 94 10/01/16 23:00 76 10/01/16 21:40 94 High Flow Nasal Cannula 30.00 100 10/01/16 20:00 98.6 82 21 132/83 (99) 94 10/01/16 19:00 82 10/01/16 19:00 95 Nasal Cannula -: 10/02/16 0420 10/02/16 0420 Physical Exam General Appearance: No Acute Distress Eyes Eye Exam: Sclera White Pulmonary Resp Exam: Breath Sounds Equal, No Distress, Diminished Breath Sounds Cardiology CV Exam: Regular, Normal Sinus Rhythm Gastrointestinal/Abdomen GI Exam: Soft, Non-Tender, Distended Integumentary Skin Exam: Clear, Warm Skin Remarks Skin turgor diminished. Extremeties Extremities Exam: No Edema Assessment/Plan Discussed Condition With: Patient Problem List: (1) Acute kidney failure ICD Codes: N17.9 - Acute kidney failure, unspecified Status: Acute Plan: Differential diagnosis at this point as far as acute renal insufficiency is concerned would be atheroembolic disease occurring during previous admission with subsequent decline in renal function and a lesser consideration towards interstitial nephritis possibly related to Protonix. Patient's renal indices are improving daily. Remains be determined what the patient's baseline renal function will be however. At this point in time convert furosemide by mouth. Please note that prednisone was started empirically for possible interstitial nephritis related to Protonix. Would not taper rapidly. Noted consideration being given to pulmonary issues related to amiodarone. Management will be deferred to pulmonary and or cardiology. Recommend avoidance of Protonix in the future without kidney biopsy to confirm or eliminate incision nephritis. Medications should be adjusted for the patient's renal decline. Avoid nephrotoxic medications including NSAIDs and iodinated contrast dyes. Gadolinium should be avoided as eGFR 30. In view of significant improvement from a renal point of view. Patient will be seen Tuesday. Please call if any questions however. (2) CKD (chronic kidney disease), stage III ICD Codes: N18.3 - Chronic kidney disease, stage 3 (moderate) Status: Chronic (3) Hypoxemic respiratory failure, chronic ICD Codes: J96.11 - Chronic respiratory failure with hypoxia Status: Acute Plan: Pt s/p extubation, but not tolerating Bi-PAP. Sats in upper 80s to 90s on NC. (4) TIA (transient ischemic attack) ICD Codes: G45.9 - Transient cerebral ischemic attack, unspecified Status: Acute (5) Hypertension ICD Codes: I10 - Essential (primary) hypertension Status: Acute (6) CAD (coronary artery disease) ICD Codes: I25.10 - Atherosclerotic heart disease of [place] coronary artery without angina pectoris Status: Chronic (7) Congestive heart failure ICD Codes: I50.9 - Heart failure, unspecified Status: Acute Plan: Compensated currently. (8) Anemia ICD Codes: D64.9 - Anemia, unspecified Status: Acute Plan: Of acute illness. Problem Qualifiers (1) TIA (transient ischemic attack): Liv Cerda MD Oct 02, 2016 16:54
[2016-10-02] MEDS: FUROSEMIDE 20 MG/2 ML VIAL IV SCH ×2 (18:36→22:59)
[2016-10-02] MEDS: ALPRAZolam 0.25 MG TAB PO PRN (20:37)
[2016-10-02] MEDS: MONTELUKAST SODIUM 10 MG TAB PO SCH (20:39)
[2016-10-02] MEDS: RESP: ALBUTEROL 2.5 MG/3 ML NEB (PRN) NEB (21:16)
--- NOTE | 2016-10-02 22:53 | MB ---
cc: JERMEY PRAJAPATI MD DATE OF CONSULTATION 10/02/16 REASON FOR CONSULTATION Episodes of altered mental status, status post stroke. HISTORY OF PRESENT ILLNESS Mr. Hartley is a 75-year-old man who is 4 weeks status post CABG that was complicated by stroke followed up by Dr. Jeffries. His MRI initially revealed multiple bilateral occipital parietal infarct, bilateral MCA infarcts. Hospital course was complicated by CKD and fluid overload. He is currently treated for respiratory failure and on high flow nasal cannula but he was noted for the past 2 days there was episodes of confusion. Thus neurology was consulted to rule out new neurologic abnormality. REVIEW OF SYSTEMS 12-point review of systems is negative except for what is stated in the HPI. PAST MEDICAL HISTORY Coronary artery disease. Stroke status post bypass surgery. Hypertension, hyperlipidemia, atrial fibrillation, colon cancer status post resection, bladder cancer status post TURP. Abdominal aortic aneurysm repair. Atrial ablation. PAST SURGICAL HISTORY Coronary artery bypass x3. Colon cancer resection. TURP for bladder cancer. Abdominal aortic aneurysm repair. Right carotid endarterectomy. ALLERGIES ATORVASTATIN AND SIMVASTATIN. MEDICATIONS 1. Eliquis. 2. Metoprolol. 3. Aspirin. 4. Oxycodone. 5. Xanax. 6. Docusate. 7. Multivitamin. FAMILY HISTORY Noncontributory. PHYSICAL EXAMINATION GENERAL: Awake, aware, in mild respiratory depressed, high nasal flow oxygen canula. HEENT: Atraumatic, normocephalic. Intact hearing. Intact vision. NECK: Supple. No stiffness. HEART: Regular rate and rhythm. ABDOMEN: Soft, nontender. EXTREMITIES: No cyanosis or clubbing. NEUROLOGIC: Awake, alert, oriented, no dysphasia. No dysarthria. Oriented to time, person and place, 2017, [facility], September, Tuesday. Cranial nerves are grossly intact II-XII. No nystagmus. No diplopia. No facial asymmetry. Motor examination is grossly 5/5. No abnormal movements. Mild fine tremor bilateral extremities. Sensation is intact throughout. Reflexes are intact throughout. Plantars are bilaterally downgoing. PSYCHOLOGICAL: Normal mood and behavior. No hallucinations. DIAGNOSTIC IMAGING - MRI brain done on 09/10/2016 revealed new embolic infarcts involving both anterior and posterior circulation. - Head MRA without contrast on 09/10/2016 was unremarkable without evidence of large vessel occlusion, aneurysm or vascular malformation. DIAGNOSTIC IMPRESSION 1. History of bilateral ischemic strokes. 2. Stable nonfocal neurological examination. 3. Encephalopathy. Resolved. 4. Likely related to respiratory failure/cardiovascular etiology. 5. Continue current medications. 6. DVT prophylaxis. 7. SCDs. 8. Please call for questions Thank you for the opportunity to participate in the care of your patient. Jeremy Prajapati MD RGO/NANCY /10:05 PM /10:26 PM BRYAN
[2016-10-03] VITALS (19 sets, daily range): BP systolic 111–159; BP diastolic 69–93; PULSE 76–98; RESP 16–27; TEMP 98.2–99.8; O2SAT 90–98
[2016-10-03] MEDS: MEROPENEM INJ 500 MG in SODIUM CHLORIDE 0.9% INJ 100 ML IV SCH ×2 (00:28→13:05)
[2016-10-03] MEDS ORDERED: ALTEPLASE RECOMBINANT 2 MG VIAL IV FLUSH ONE ×3 (04:00)
[2016-10-03 05:41] LABS: HEMATOCRIT 33.7 % (39.0-51.0); MEAN CELL VOLUME 89.2 FL (80.0-100.0); MEAN CORPUSCULAR HEMOGLOBIN 28.5 PG (27.0-34.0); MEAN CORPUSCULAR HGB CONC 31.9 % (32.0-36.0); PLATELET COUNT 409 TH/MM3 (150-450); RED BLOOD COUNT 3.78 MIL/MM3 (4.50-5.90); REVIEW FLAG FINAL; WHITE BLOOD COUNT 15.4 TH/MM3 (4.0-11.0)
--- NOTE | 2016-10-03 05:47 | RADRPT ---
EXAM DATE/TIME: 10/03/2016 04:25 [facility] COMPARISON: CHEST SINGLE AP, October 01, 2016, 4:35. INDICATIONS : Shortness of breath, possible pulmonary disease. MEDICAL HISTORY : Myocardial infarction. Hypercholesterolemia. Hypertension. CAD SURGICAL HISTORY : CABG. Coronary artery stent. Abdominal aortic aneurysm repair. ENCOUNTER: Subsequent ACUITY: 1 month PAIN SCORE: 0/10 LOCATION: Bilateral chest FINDINGS: A single view of the chest demonstrates bilateral diffuse infiltrates throughout the lungs. Right sub clavian central line in good position. Numerous median sternotomy wires are stable. The aorta is quit e tortuous and the cardiac silhouette is borderline enlarged. Osseous structures are intact. CONCLUSION: Diffuse airspace disease throughout the lungs, overall stable from the previous study. Wing Marroquin MD on October 03, 2016 at 5:45 Board Certified Radiologist. This report was verified electronically.
[2016-10-03] MEDS: INSULIN ASPART SUPPLEMENTAL SCALE SQ SCH ×4 (06:00→17:58)
[2016-10-03 06:03] LABS: BICARBONATE 29.5 MEQ/L (21.0-32.0); POTASSIUM 3.9 MEQ/L (3.5-5.1)
[2016-10-03] MEDS: hydrALAZINE HCL 20 MG/ML VIAL IV PUSH PRN (06:48)
[2016-10-03] MEDS ORDERED: FUROSEMIDE 40 MG/4 ML VIAL ONE (07:13)
[2016-10-03] MEDS: CHLORHEXIDINE 0.12% (ORAL KIT) 15 ML CUP MT SCH ×4 (08:00→21:25)
[2016-10-03] MEDS ORDERED: predniSONE 10 MG TAB PO SCH (09:00)
[2016-10-03] MEDS: APIXABAN 5 MG TABLET PO SCH ×2 (09:35→21:22)
[2016-10-03] MEDS: LABETALOL HCL 100 MG TAB PO SCH ×3 (09:35→17:58)
[2016-10-03] MEDS: ALPRAZolam 0.25 MG TAB PO PRN (09:35)
[2016-10-03] MEDS: SODIUM CHLORIDE 0.9% FLUSH 10 ML FLUSH IV FLUSH SCH ×2 (09:36→21:23)
[2016-10-03] MEDS: DOCUSATE SODIUM 50 MG/SENNA 8.6 MG TAB PO SCH ×2 (09:36→21:22)
[2016-10-03] MEDS: CALCIUM ACETATE 667 MG CAP PO SCH ×3 (09:37→17:58)
[2016-10-03] MEDS: LINEZOLID 600 MG TAB PO SCH ×2 (09:37→21:21)
[2016-10-03] MEDS: FUROSEMIDE 20 MG TAB PO SCH (09:37)
[2016-10-03] MEDS: ASPIRIN EC 81 MG TABEC PO SCH (09:37)
[2016-10-03] MEDS: FAMOTIDINE 20 MG TAB PO SCH (09:37)
[2016-10-03] MEDS ORDERED: ETOMIDATE 20 MG/10 ML VIAL ONE (11:00)
[2016-10-03] MEDS ORDERED: SUCCINYLCHOLINE CHLORIDE 200 MG/10 ML VIAL ONE (11:01)
[2016-10-03] MEDS ORDERED: ROCURONIUM INJ 50 MG/5 ML VIAL ONE (11:02)
[2016-10-03] MEDS ORDERED: MIDAZOLAM HCL 5 MG/ML VIAL (1 ML) ONE (11:05)
[2016-10-03] MEDS ORDERED: PROPOFOL 500 MG/50 ML INJ 50 ML ONE (11:14)
--- NOTE | 2016-10-03 11:27 | PD.PROCEDR ---
Procedure Note Procedure Endotracheal Intubation Diagnosis: Acute hypoxic respiratory failure Indications: same Consent: Patient and family Anesthesia: [ ] Description of the Procedure: The patient was positioned in the sniffing position. Patient was noted to have multiple broken carious teeth .Pre-oxygenation was performed using a BVM. Anesthesia was induced via rapid sequence. A glide scope 4 was used for laryngoscopy and a Grade 1 view was obtained. A 8.0 cuffed endotracheal tube was inserted atraumatically through the vocal cords. Confirmation of correct endotracheal tube placement was made by equal and bilateral breath sounds and colorimetric CO2 detection. The endotracheal tube was secured at 23 cm at the teeth. There were no immediate complications noted. The patient remained hemodynamically stable throughout the procedure. A chest x-ray has been ordered. I personally performed the procedure. Elise Marin MD Oct 03, 2016 11:27
--- NOTE | 2016-10-03 11:41 | RADRPT ---
EXAM DATE/TIME: 10/03/2016 11:22 [facility] COMPARISON: CHEST SINGLE AP, October 03, 2016, 4:25. INDICATIONS : NG tube placement and intubation. MEDICAL HISTORY : Myocardial infarction. Hypercholesterolemia. Hypertension. CAD SURGICAL HISTORY : CABG. Coronary artery stent. Abdominal aortic aneurysm repair. ENCOUNTER: Initial ACUITY: 1 day PAIN SCORE: Non-responsive. LOCATION: Bilateral chest FINDINGS: There is an endotracheal tube identified with the tip just above the level of the clavicles. There is a right-sided central line with the tip overlying the region of the mid SVC. Multiple intact median sternotomy wires. The heart size appears moderately enlarged and there is diffuse bilateral patchy airspace disease pre sent, unchanged from prior exam. CONCLUSION: Interval intubation with the endotracheal tube positioned just above the level of the clavicles. Stab le right sided central line. Severe bilateral airspace consolidation which may represent ARDS, cardio genic pulmonary edema or severe pneumonia.. Casandra Moreno MD on October 03, 2016 at 11:37 Board Certified Radiologist. This report was verified electronically.
[2016-10-03 12:27] LABS: BLOOD GAS BASE EXCESS 2.8 mmol/L (-2-2); BLOOD GAS CARBOXYHEMOGLOBIN 1.4 % (0-4); BLOOD GAS HCO3 29 mmol/L (22-26); BLOOD GAS METHEMOGLOBIN 1.1 % (0-2); BLOOD GAS O2 HGB SATURATION 97 % (90-100); BLOOD GAS OXYGEN CONTENT 18.5 Vol % (12.0-20.0); BLOOD GAS PCO2 69 mmHg (38-42); BLOOD GAS PO2 202 mmHg (61-120); BLOOD GAS TOTAL HGB 13.3 G/DL (12.0-16.0); TEMP CORR TO 98.6
[2016-10-03 12:28] LABS: CRITICAL VALUE YES; DRAW SITE RT RADIAL; FIO2 100 %; NUMBER OF ARTERIAL PUNCTURES 1; OXYGEN DEVICE VENTILATOR; STAT NO; ULNAR PULSE PRESENT; VENT SETTINGS AC16/500/PEEP10
[2016-10-03] MEDS ORDERED: ETOMIDATE 20 MG/10 ML VIAL IV PUSH ONE (12:30)
[2016-10-03] MEDS ORDERED: SUCCINYLCHOLINE CHLORIDE 200 MG/10 ML VIAL IV PUSH ONE (12:30)
[2016-10-03] MEDS ORDERED: ROCURONIUM INJ 50 MG/5 ML VIAL IV PUSH ONE (12:30)
[2016-10-03] MEDS ORDERED: FUROSEMIDE 40 MG/4 ML VIAL IV PUSH ONE (12:30)
[2016-10-03] MEDS ORDERED: MIDAZOLAM HCL 5 MG/ML VIAL (1 ML) IV PUSH ONE (12:30)
--- NOTE | 2016-10-03 12:32 | HHI.CCPN ---
Subjective Remarks/Hospital Course 75 y/o man now about 4 weeks following CABG complicated by CVA. Presented back 08/28 with new onset right arm weakness. Hospital course has been complicated by CKD and fluid overload. We have attempted BiPAP for several hours but he remains in distress and although oxygenation is acceptable work of breathing is excessive. Worrisome increasing metabolic acidosis. 09/17: Gas exchange much improved. BNP 1681, ScVO2 71%. It appears that cardiac output is more than adequate for peripheral needs and the primary pathology is renal failure and fluid overload. If we can manage volume I can probably get him extubated. 09/18: Diffuse crackles. Needs to be diuresed today. Tolerating extubation but at risk for hypoxemic failure again. 09/20 - Re consulted due to worsening hypoxia. Currently on nonrebreather mask. Chest x-ray shows worsening consolidation right lobe creatinine slightly improved over. Family request transfer to [facility] however refused. We'll attempt to decipher status currently unknown. 09/21: Remains on nonrebreather mask. Saturations between 89-97%. Chest x-ray unchanged. Not tachypnea. Not confused. 09/22: Radiographic studies show diffuse interstitial process with skip areas - more indicative of infectious/inflammatory process. Sats 85% with labored pattern. Required intubation for deteriorating respiratory status. 09/23: Gas exchange improving. Pulmonary infiltrates remain very concerning - if most recent sputum is benign I would not be opposed to steroids. 09/24: Extubated today. On 3 L nasal cannula. Passed swallow evaluation. Appropriate interactive status post extubation. Subjective 09/29: Critical care reconsult requested by Dr. Meza for respiratory failure. Patient reportedly was on BiPAP this morning. He was given additional diuretic earlier as he was short of breath. With this he seems to have improved somewhat and has been on a nonrebreather facemask for more than a few hours. He states that he is breathing much better. Patient being adamant about not using BiPAP. I had a detailed conversation about the importance of using BiPAP especially at night in view of his history of sleep apnea. Patient did not appear to be in acute distress though he was requiring a nonrebreather facemask at the time of my evaluation. No urgent need for BiPAP or intubation at this time. In fact patient is stating that he is breathing much better than this morning. 09/30: Remains on nonrebreather facemask. Refused BiPAP at night. States that he is breathing better today than yesterday. 10/01: 02 30 L/m 100% FiO2. O2 sats borderline. Episodes of confusion. When I evaluated the patient he was sitting up in bed and was able to converse. Not using accessory muscles of respirations currently. 10/02: The patient is alert and oriented currently has been weaned down to high flow nasal cannula with an FiO2 of 65%, maintaining O2 saturation to 95%. Patient is appropriately conversant no episodes of confusion noted. 10/03: Yesterday, the patient received 2 units of packed red blood cells with Furosemide dosing in between transfusion of units, with diuresis of approximately 2900 cc. Last night, the patient was noted to have respiratory decompensation, continued refusal to utilize BiPAP during the night. FiO2 requirements increased to 100% this a.m., on high flow nasal cannula, with noted accessory muscle use and inability to speak in complete sentences secondary to dyspnea. The patient received additional dose of Lasix this a.m. , chest x-ray appeared to be worsened this a.m. .Patient subsequently became hypoxic requiring emergent intubation this a.m.., O2 sat saturation 80s on 100 % FiO2. Objective Vital Signs Date Time Temp Pulse Resp B/P (MAP) Pulse Ox O2 Delivery O2 Flow Rate FiO2 10/03/16 11:00 98 10/03/16 08:00 98.2 24 121/69 (86) 94 10/03/16 07:00 Nasal Cannula 92 10/02/16 21:45 30.00 Intake and Output 10/03/16 10/03/16 10/04/16 08:00 16:00 00:00 Intake Total 1060 ml Output Total 2900 ml Balance -1840 ml Result Diagram: 10/03/16 0524 10/03/16 0524 Imaging Last 24 hours Impressions Chest X-Ray 09/29/16 0000 Signed Impressions: Service Date/Time: Thursday, September 29, 2016 01:36 - CONCLUSION: 1. Improvement in pulmonary edema pattern since September 28. No new consolidation or effusion. Amado Crain MD Last Impressions Chest X-Ray 09/23/16 0000 Signed Impressions: Service Date/Time: September 08:16 - CONCLUSION: 1. Multiple tubes and lines are in good positions. 2. Bilateral pulmonary infiltrates are unchanged compared to the previous examination. Jeffrey Mohan MD Chest CT 09/21/16 0000 Signed Impressions: Service Date/Time: Wednesday, September 21, 2016 22:34 - CONCLUSION: 1. Diffuse airspace opacities with ground glass appearance throughout both lungs. 2. Moderate-sized bilateral pleural effusions. 3. Ectatic and dilated descending thoracic aorta, measuring up to 5.[address] Martinez MD Head Magnetic Resonance Angiography 09/10/16 1028 Signed Impressions: Service Date/Time: Saturday, September 10, 2016 10:57 - CONCLUSION: 1. Unremarkable MRA examination without evidence for large vessel occlusion, aneurysm, or vascular malformation. Richardson Haney MD Brain MRI 09/10/16 1028 Signed Impressions: Service Date/Time: Saturday, September 10, 2016 10:57 - CONCLUSION: 1. Findings most consistent with new embolic infarcts involving both the anterior and posterior circulation. Richardson Haney MD Carotid Artery Ultrasound 09/09/16 1028 Signed Impressions: Service Date/Time: September 10:43 - CONCLUSION: 1. Moderate visible plaque without hemodynamically significant stenosis identified. No significant change from August 25. Amado Crain MD Renal Ultrasound 09/09/16 0000 Signed Impressions: Service Date/Time: September 15:41 - CONCLUSION: 1. Cortical atrophy with small bilateral renal cysts. No hydronephrosis. Amado Crain MD Head CT 09/08/16 2251 Signed Impressions: Service Date/Time: Thursday, September 08, 2016 23:41 - CONCLUSION: Stable noncontrast CT with no evidence of hemorrhage or acute infarction. Atrophy and chronic small vessel splenic changes remain. Sanya Cavazos MD Objective Remarks GENERAL: 75-year-old male sitting up in chair on high flow O2 by nasal cannula 30 L/m 65% FiO2. Appropriately conversant SKIN: Warm and dry. HEAD: Atraumatic. Normocephalic. NECK: Trachea midline. No thyromegaly CARDIOVASCULAR: IRR. S1, S2 no S4. Without murmur RESPIRATORY: Air entry decreased bilaterally at bases, scattered rhonchi, no wheezing. GASTROINTESTINAL: Abdomen soft, non-tender, nondistended. No guarding. BS active. MUSCULOSKELETAL: Extremities with trace to 1+ B/L lower extremity edema. No obvious deformities. Brisk capillary refill NEUROLOGICAL: GCS 15 Awake alert oriented 3. Strength is equal and symmetric bilaterally. C Procedures 10/03- intubation Choi insert reason: Measure Accurate Output Date of Insertion: Oct 03, 2016 A/P Assessment and Plan Neuro/Psych: Left occipital, bilateral frontal parietal cerebellar CVA subacute Chronic headaches Chronic benzodiazepine use Chronic oxycodone use MRI brain revealed left occipital, bilateral frontal parietal and cerebellar CVA likely ALFIE/[employer]ICE [employer]EC[employer]IVE distribution Followed by Dr. Jeffries/neurology. 10/01 consulted neurology in view of episodes of confusion. Currently on Xanax 0.25 mg every 6 hours PRN Anxiety Patient stable neurologically intact alert and oriented 3 RASS 0 this am Neurology following-Dr. Prajapati CV: Coronary disease CABG ASCVD Carotid stenosis TAAA Hypertension dyslipidemia History atrial fibrillation status post ablation 2011 Followed by cardiology. Currently on clonidine when necessary. Diuresed. Currently off atorvastatin 40 mg daily/home medication On PO Eliquis per cardiology. Off amiodarone and suspected pulmonary toxicity Echocardiogram revealed EF 70%. OHS septal motion./Paradoxical, CARA 50-60 mmHg Resp: Acute hypoxemic respiratory failure Emergent intubation 8.0 ETT 10/03 Extubated 09/23, reintubated 10/03 Chest x-ray 10/03-diffuse airspace disease over all. Diffuse bilateral airspace consolidation, ARDS, cardiogenic pulmonary edema, or severe PNA 10/03 Begin Methylprednisolone 40 mg every 8hrs- ( Prednisone 10mg q day discontinued) Bronchodilator therapy every 6 hours and as indicated Pulmonary following Continue antibiotics per ID 10/03-initiate ARDS net protocol, begin with 10 of PEEP, and permissive hypercarbia-ABG pending, also concern for TRALI/ ARDS GI: Insert OGT- begin Nepro 10cc/hr On famotidine 10 mg by mouth daily /renal: History of hydroureter Renal ultrasound Revealed no hydronephrosis Currently on sodium bicarbonate 650 every 8 on with PhosLo 667 3 times a day Continue Lasix. Reinsert choi- intubated and receiving diuretics- Strict I&O's Endo: Sliding scale insulin if indicated Renal: Acute on chronic kidney injury Continue diuretics. Nephrology follow-up. Noted elevated lambda and kappa Chains/ESR likely secondary underlying acute kidney injury. Evaluated by Dr. Mccollum/hematology Heme: History of colon cancer status post partial colectomy History of bladder cancer Persistent Leukocytosis normocytic anemia Monitor CBC daily. Follow trends. WBC 11-->15.4 today ID: Possible hospital-acquired pneumonia On meropenem/Levaquin/Zyvox per ID. Blood cultures 2 09/08 no growth 10/03-repeat blood, urine and sputum cultures follow-up results 10/03-obtain influenza A and B, Legionella and pneumococcal urine antigens, follow-up results FEN: Hyponatremia Elevated phosphorus-resolved Monitor and replete electrolytes MSK: PT evaluate and treat Prophylaxis - GI -famotidine - DVT - SCD/apixaban Access - Right subclavian CVL placed 09/16 Dispo: Discussed with patient and LUMBER BEARER at bedside. Extensive discussion with patient and family at bedside to include and daughter, regarding reintubation. All questions answered. This patient remains critically ill with one or more organ systems which are or may become a threat to life. I have spent in excess of 30 minutes discontinuously in the care and management of this patient. This time is exclusive of procedures, and includes, but is not limited to, evaluation of the patient, review of the medical record, discussions with family, consultants, nursing staff, or respiratory therapy, and documentation in the medical record. Physician Elise Floyd MD Oct 03, 2016 12:32
[2016-10-03] MEDS: PROPOFOL 1000 MG/100 ML INJ 100 ML IV PRN ×2 (13:05→18:41)
[2016-10-03 13:55] LABS: MAGNESIUM 2.1 MG/DL (1.5-2.5); POTASSIUM 4.2 MEQ/L (3.5-5.1)
[2016-10-03] MEDS: methylPREDNISolone SOD SUCC 40 MG/1 ML VIAL IV PUSH SCH ×2 (14:14→21:22)
[2016-10-03] MEDS: ARTIFICIAL TEARS OPTH SOLN 15 ML BTL EACH EYE SCH ×2 (14:14→21:23)
[2016-10-03 14:29] LABS: BLOOD GAS BASE EXCESS 2.9 mmol/L (-2-2); BLOOD GAS CARBOXYHEMOGLOBIN 1.7 % (0-4); BLOOD GAS HCO3 29 mmol/L (22-26); BLOOD GAS METHEMOGLOBIN 1.2 % (0-2); BLOOD GAS O2 HGB SATURATION 94 % (90-100); BLOOD GAS PCO2 60 mmHg (38-42); BLOOD GAS PO2 96 mmHg (61-120); BLOOD GAS TOTAL HGB 12.1 G/DL (12.0-16.0); TEMP CORR TO 98.6
[2016-10-03 14:30] LABS: CRITICAL VALUE YES; DRAW SITE RT RADIAL; FIO2 70 %; NUMBER OF ARTERIAL PUNCTURES 2; OXYGEN DEVICE VENTILATOR; STAT NO; ULNAR PULSE PRESENT; VENT SETTINGS AC20/500/PEEP10
[2016-10-03 17:24] LABS: BLOOD GAS BASE EXCESS 3.1 mmol/L (-2-2); BLOOD GAS HCO3 29 mmol/L (22-26); BLOOD GAS METHEMOGLOBIN 1.3 % (0-2); BLOOD GAS O2 HGB SATURATION 94 % (90-100); BLOOD GAS OXYGEN CONTENT 14.8 Vol % (12.0-20.0); BLOOD GAS PCO2 57 mmHg (38-42); BLOOD GAS PO2 92 mmHg (61-120); BLOOD GAS TOTAL HGB 11.2 G/DL (12.0-16.0); TEMP CORR TO 98.6
[2016-10-03 17:25] LABS: CRITICAL VALUE YES; DRAW SITE RT RADIAL; FIO2 60 %; NUMBER OF ARTERIAL PUNCTURES 1; OXYGEN DEVICE VENTILATOR; STAT NO; VENT SETTINGS 500/20/PEEP 10
[2016-10-03] MEDS: MONTELUKAST SODIUM 10 MG TAB PO SCH (21:22)
[2016-10-03] MEDS: LEVOFLOXACIN 750 MG TAB PO SCH (21:22)
[2016-10-03] MEDS: MIDAZOLAM 100 MG/NS 100 ML DRIP Premix IV PRN (22:14)
[2016-10-04] VITALS (18 sets, daily range): BP systolic 108–134; BP diastolic 60–82; PULSE 64–88; RESP 22–25; TEMP 94.6–98.7; O2SAT 94–99
[2016-10-04] MEDS: MEROPENEM INJ 500 MG in SODIUM CHLORIDE 0.9% INJ 100 ML IV SCH ×2 (00:15→11:25)
[2016-10-04] MEDS: PROPOFOL 1000 MG/100 ML INJ 100 ML IV PRN ×5 (02:09→21:13)
--- NOTE | 2016-10-04 05:07 | RADRPT ---
EXAM DATE/TIME: 10/04/2016 03:57 [facility] COMPARISON: CHEST SINGLE AP, October 03, 2016, 11:22. INDICATIONS : Shortness of breath, possible pulmonary disease. MEDICAL HISTORY : Myocardial infarction. Hypercholesterolemia. Hypertension. CAD SURGICAL HISTORY : CABG. Coronary artery stent. Abdominal aortic aneurysm repair. ENCOUNTER: Subsequent ACUITY: 1 month PAIN SCORE: 0/10 LOCATION: Bilateral chest FINDINGS: Portable AP view of the chest demonstrates a normal-sized cardiac silhouette with calcification of th e aorta in this patient post median sternotomy. ETT, nasogastric tube, and right subclavian central l ine remain present. Lungs are underinflated and there is diffuse interstitial and airspace opacity bi laterally with not improved aeration at the left lung base. No pneumothorax or pleural effusion is vi sualized. CONCLUSION: Mild improved aeration at the left lung base with continued diffuse bilateral interstitial and air sp jose opacity. Jarad Delgado MD on October 04, 2016 at 5:05 Board Certified Radiologist. This report was verified electronically.
[2016-10-04 05:17] LABS: AUTOMATED NEUTROPHIL # 9.3 TH/MM3 (1.8-7.7); BASOPHIL # 0.1 TH/MM3 (0-0.2); BASOPHIL % 0.5 % (0.0-2.0); HEMATOCRIT 32.6 % (39.0-51.0); HEMO FLAGS DIFF FINAL; LYMPH % 6.4 % (9.0-44.0); LYMPHOCYTE # 0.7 TH/MM3 (1.0-4.8); MEAN CELL VOLUME 90.2 FL (80.0-100.0); MEAN CORPUSCULAR HEMOGLOBIN 29.5 PG (27.0-34.0); MEAN CORPUSCULAR HGB CONC 32.7 % (32.0-36.0); MONO % 2.1 % (0.0-8.0); PLATELET COUNT 332 TH/MM3 (150-450); RED BLOOD COUNT 3.61 MIL/MM3 (4.50-5.90); RED CELL DISTRIBUTION WIDTH 16.5 % (11.6-17.2); WHITE BLOOD COUNT 10.3 TH/MM3 (4.0-11.0)
[2016-10-04 05:33] LABS: BLOOD GAS BASE EXCESS 2.8 mmol/L (-2-2); BLOOD GAS CARBOXYHEMOGLOBIN 1.6 % (0-4); BLOOD GAS HCO3 28 mmol/L (22-26); BLOOD GAS METHEMOGLOBIN 1.1 % (0-2); BLOOD GAS O2 HGB SATURATION 96 % (90-100); BLOOD GAS OXYGEN CONTENT 17.2 Vol % (12.0-20.0); BLOOD GAS PCO2 55 mmHg (38-42); BLOOD GAS PO2 135 mmHg (61-120); BLOOD GAS TOTAL HGB 12.6 G/DL (12.0-16.0); CRITICAL VALUE YES; OXYGEN DEVICE VENTILATOR; TEMP CORR TO 98.6
[2016-10-04 05:33] LABS: BICARBONATE 30.2 MEQ/L (21.0-32.0); MAGNESIUM 2.5 MG/DL (1.5-2.5); POTASSIUM 4.8 MEQ/L (3.5-5.1)
[2016-10-04 05:34] LABS: DRAW SITE LT RADIAL; FIO2 50 %; NUMBER OF ARTERIAL PUNCTURES 1; STAT NO; ULNAR PULSE PRESENT; VENT SETTINGS AC22/500/10PEEP
[2016-10-04] MEDS: ARTIFICIAL TEARS OPTH SOLN 15 ML BTL EACH EYE SCH ×3 (05:51→20:03)
[2016-10-04] MEDS: methylPREDNISolone SOD SUCC 40 MG/1 ML VIAL IV PUSH SCH ×3 (05:51→21:14)
[2016-10-04] MEDS: INSULIN ASPART SUPPLEMENTAL SCALE SQ SCH ×4 (05:52→18:00)
[2016-10-04] MEDS: CHLORHEXIDINE 0.12% (ORAL KIT) 15 ML CUP MT SCH ×3 (08:00→20:03)
--- NOTE | 2016-10-04 08:19 | HHI.CCPN ---
Subjective Remarks/Hospital Course 75 y/o man now about 4 weeks following CABG complicated by CVA. Presented back 08/28 with new onset right arm weakness. Hospital course has been complicated by CKD and fluid overload. We have attempted BiPAP for several hours but he remains in distress and although oxygenation is acceptable work of breathing is excessive. Worrisome increasing metabolic acidosis. 09/17: Gas exchange much improved. BNP 1681, ScVO2 71%. It appears that cardiac output is more than adequate for peripheral needs and the primary pathology is renal failure and fluid overload. If we can manage volume I can probably get him extubated. 09/18: Diffuse crackles. Needs to be diuresed today. Tolerating extubation but at risk for hypoxemic failure again. 09/20 - Re consulted due to worsening hypoxia. Currently on nonrebreather mask. Chest x-ray shows worsening consolidation right lobe creatinine slightly improved over. Family request transfer to [facility] however refused. We'll attempt to decipher status currently unknown. 09/21: Remains on nonrebreather mask. Saturations between 89-97%. Chest x-ray unchanged. Not tachypnea. Not confused. 09/22: Radiographic studies show diffuse interstitial process with skip areas - more indicative of infectious/inflammatory process. Sats 85% with labored pattern. Required intubation for deteriorating respiratory status. 09/23: Gas exchange improving. Pulmonary infiltrates remain very concerning - if most recent sputum is benign I would not be opposed to steroids. 09/24: Extubated today. On 3 L nasal cannula. Passed swallow evaluation. Appropriate interactive status post extubation. 09/29: Critical care reconsult requested by Dr. Meza for respiratory failure. Patient reportedly was on BiPAP this morning. He was given additional diuretic earlier as he was short of breath. With this he seems to have improved somewhat and has been on a nonrebreather facemask for more than a few hours. He states that he is breathing much better. Patient being adamant about not using BiPAP. I had a detailed conversation about the importance of using BiPAP especially at night in view of his history of sleep apnea. Patient did not appear to be in acute distress though he was requiring a nonrebreather facemask at the time of my evaluation. No urgent need for BiPAP or intubation at this time. In fact patient is stating that he is breathing much better than this morning. 8/24: Remains on nonrebreather facemask. Refused BiPAP at night. States that he is breathing better today than yesterday. 10/01: 02 30 L/m 100% FiO2. O2 sats borderline. Episodes of confusion. When I evaluated the patient he was sitting up in bed and was able to converse. Not using accessory muscles of respirations currently. 10/02: The patient is alert and oriented currently has been weaned down to high flow nasal cannula with an FiO2 of 65%, maintaining O2 saturation to 95%. Patient is appropriately conversant no episodes of confusion noted. 10/03: Yesterday, the patient received 2 units of packed red blood cells with Furosemide dosing in between transfusion of units, with diuresis of approximately 2900 cc. Last night, the patient was noted to have respiratory decompensation, continued refusal to utilize BiPAP during the night. FiO2 requirements increased to 100% this a.m., on high flow nasal cannula, with noted accessory muscle use and inability to speak in complete sentences secondary to dyspnea. The patient received additional dose of Lasix this a.m. , chest x-ray appeared to be worsened this a.m. .Patient subsequently became hypoxic requiring emergent intubation this a.m.., O2 sat saturation 80s on 100 % FiO2. Subjective: 10/04: Intubated yesterday due to general and hypoxia. Diuresed with 80 mg furosemide 1. Tmax 99.8. Currently 97.8. Tube feeds initiated. No bowel movement. Objective Vital Signs Date Time Temp Pulse Resp B/P (MAP) Pulse Ox O2 Delivery O2 Flow Rate FiO2 10/04/16 07:00 97 Mechanical Ventilator 45 10/04/16 07:00 70 10/04/16 04:00 97.8 22 126/77 (93) 10/02/16 21:45 30.00 Intake and Output 10/04/16 10/04/16 10/05/16 08:00 16:00 00:00 Intake Total 557 ml Output Total 875 ml Balance -318 ml Result Diagram: 10/04/16 0440 10/04/16 0440 Other Results Microbiology Date/Time Source Procedure Growth Status 10/03/16 13:35 Blood Peripheral Aerobic Blood Culture Pending Received 10/03/16 13:35 Blood Peripheral Anaerobic Blood Culture Pending Received 09/12/16 01:00 Stool Stool Stool Occult Blood (JAME) - Final HEMOCCULT NEGATIVE Complete 10/03/16 12:49 Nasal Washing Influenza Types A,B Antigen (JAME) - Final NEGATIVE FOR FLU A AND B ANTIGEN.... Complete 10/03/16 12:20 Urine Catheterized Urine Streptococcus pneumoniae Antigen (M - Final PRESUMPTIVE NEGATIVE FOR STREPTOCOCCU... Complete Imaging Last Impressions Chest X-Ray 10/04/16 0600 Signed Impressions: Service Date/Time: Tuesday, October 04, 2016 03:57 - CONCLUSION: Mild improved aeration at the left lung base with continued diffuse bilateral interstitial and air space opacity. Jarad Delgado MD Chest CT 09/21/16 0000 Signed Impressions: Service Date/Time: Wednesday, September 21, 2016 22:34 - CONCLUSION: 1. Diffuse airspace opacities with ground glass appearance throughout both lungs. 2. Moderate-sized bilateral pleural effusions. 3. Ectatic and dilated descending thoracic aorta, measuring up to 5.[address] Martinez MD Head Magnetic Resonance Angiography 09/10/16 1028 Signed Impressions: Service Date/Time: Saturday, September 10, 2016 10:57 - CONCLUSION: 1. Unremarkable MRA examination without evidence for large vessel occlusion, aneurysm, or vascular malformation. Richardson Haney MD Brain MRI 09/10/16 1028 Signed Impressions: Service Date/Time: Saturday, September 10, 2016 10:57 - CONCLUSION: 1. Findings most consistent with new embolic infarcts involving both the anterior and posterior circulation. Richardson Haney MD Carotid Artery Ultrasound 09/09/16 1028 Signed Impressions: Service Date/Time: September 10:43 - CONCLUSION: 1. Moderate visible plaque without hemodynamically significant stenosis identified. No significant change from August 25. Amado Crain MD Renal Ultrasound 09/09/16 0000 Signed Impressions: Service Date/Time: September 15:41 - CONCLUSION: 1. Cortical atrophy with small bilateral renal cysts. No hydronephrosis. Amado Crain MD Head CT 09/08/16 2251 Signed Impressions: Service Date/Time: Thursday, September 08, 2016 23:41 - CONCLUSION: Stable noncontrast CT with no evidence of hemorrhage or acute infarction. Atrophy and chronic small vessel splenic changes remain. Sanya Cavazos MD Objective Remarks GENERAL: 75-year-old male currently orotracheally intubated critically ill SKIN: Warm and dry. We'll perfused HEAD: Atraumatic. Normocephalic. NECK: Trachea midline. No thyromegaly CARDIOVASCULAR: IRR. S1, S2 no S4. Without murmur RESPIRATORY: Air entry decreased bilaterally at bases, scattered rhonchi, no wheezing. GASTROINTESTINAL: Abdomen soft, non-tender, nondistended. No guarding. BS active. MUSCULOSKELETAL: Extremities with trace to 1+ B/L lower extremity edema. No obvious deformities. NEUROLOGICAL: Positive corneal reflex. Positive gag. Withdraws to noxious stimulation all 4 extremities. Procedures 10/03- intubation Date of Insertion: Oct 03, 2016 A/P Assessment and Plan Neuro/Psych: Left occipital, bilateral frontal parietal cerebellar CVA subacute Chronic headaches Chronic benzodiazepine use Chronic oxycodone use MRI 09/10 brain revealed left occipital, bilateral frontal parietal and cerebellar CVA likely ALFIE[employer] distribution Followed by Dr. Jeffries/neurology. 10/[address] Prajapati in view of episodes of confusion. Nonfocal. Currently on alprazolam 0.25 mg every 6 hours PRN Anxiety Currently on propofol at 40 mg/kg minutes and midazolam @ 4 mg an hour for sedation while intubated Goal of RA SS -2 Daily sedation vacation CV: Coronary disease status post CABG ASCVD Carotid stenosis TAAA Hypertension dyslipidemia History atrial fibrillation status post ablation 2011 Followed by cardiology. Currently off atorvastatin 40 mg daily/home medication for dyslipidemia On PO Apixaban 5 mg twice a day per cardiology. Off amiodarone and suspected pulmonary toxicity Echocardiogram revealed EF 70%. OHS septal motion./Paradoxical, CARA 50-60 mmHg Currently labetalol 100 mg 3 times a day for hypertension. As needed metoprolol for tachycardia Continue aspirin 81 mg by mouth daily Resp: Acute hypoxemic respiratory failure ACV 22/550/10/50 Ventilator bundle Albuterol/ipratropium every 6 hours with albuterol aerosols as indicated 3rd intubation. Last 10/03 Chest x-ray 10/04-stable diffuse airspace disease 10/03 switched Methylprednisolone 40 mg every 8hrs- ( Prednisone 10mg q day discontinued) on prednisone due to Protonix-induced kidney injury per nephrology Pulmonary following Dr. Encinas Continue antibiotics per ID Dr. Nova GI: Currently on Suplena goal 55 cc an hour per dietary recommendations On famotidine 20 mg by mouth daily for GI prophylaxis Docusate sodium 100 mg twice a day, senna liquid 8.6 mg twice a day and polyethylene glycol 3350 17 g daily for bowel regimen History of hydroureter Renal ultrasound Revealed no hydronephrosis Reinsert choi- intubated and receiving diuretics- Strict I&O's Endo: Sliding scale insulin if indicated Renal: Acute on chronic kidney injury Continue furosemide 20 mg by mouth daily Nephrology follow-up.. 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 Slowly wean steroids due to this issue. Dr. Cerda following Heme: History of colon cancer status post partial colectomy History of bladder cancer normocytic anemia Monitor CBC daily. Follow trends. Noted elevated lambda and kappa Chains/ESR likely secondary underlying acute kidney injury. Evaluated by Dr. Mccollum/hematology ID: Likely hospital-acquired pneumonia On meropenem/levofloxacin/linezolidsince 09/27 per ID. Pertinent cultures 10/03-repeat blood, urine Legionella and pneumococcal antigens and sputum cultures follow-up results 10/03-influenza negative 09/28 - blood cultures 2 - no growth 09/22 - sputum - no growth 09/16 - blood cultures 2 - no growth FEN: Hyponatremia Hyperphosphatemia Monitor and replete electrolytes Continue calcium acetate 667 mg 3 times a day MSK: PT evaluate and treat Prophylaxis - GI -famotidine - DVT - SCD/apixaban Access - Right subclavian CVL placed 09/16 Critical Care: The total critical care time was 30 minutes. Time to perform other separately billable procedures was not included in the critical care time. Zay Romero MD Oct 04, 2016 08:19
[2016-10-04] MEDS ORDERED: POLYETHYLENE GLYCOL 17 GM PKG PO SCH (09:00)
[2016-10-04] MEDS: CALCIUM ACETATE 667 MG CAP PO SCH ×3 (09:04→17:28)
[2016-10-04] MEDS: LINEZOLID 600 MG TAB PO SCH ×2 (09:05→19:57)
[2016-10-04] MEDS: ASPIRIN EC 81 MG TABEC PO SCH (09:05)
[2016-10-04] MEDS: LABETALOL HCL 100 MG TAB PO SCH ×3 (09:05→17:28)
[2016-10-04] MEDS: FUROSEMIDE 20 MG TAB PO SCH (09:05)
[2016-10-04] MEDS: APIXABAN 5 MG TABLET PO SCH ×2 (09:05→19:58)
[2016-10-04] MEDS: SODIUM CHLORIDE 0.9% FLUSH 10 ML FLUSH IV FLUSH SCH ×2 (09:06→20:03)
[2016-10-04] MEDS: SENNOSIDES SYRUP 8.8 MG/5 ML CUP NG SCH ×2 (09:25→19:57)
[2016-10-04] MEDS: DOCUSATE SODIUM 100 MG/10 ML UDC NG SCH ×2 (09:25→19:58)
[2016-10-04] MEDS: FAMOTIDINE 20 MG TAB NG SCH (09:28)
[2016-10-04] MEDS: RESP: ALBUTEROL 2.5 MG/IPRATROPIUM 0.5 MG NEB (SCH) NEB ×3 (10:57→21:26)
--- NOTE | 2016-10-04 11:09 | HHI.NPPN ---
Subjective History of Present Illness The patient is a 75 yo [place] male who presented to this facility 09/08 with complaints of R hand weakness. He was here at this facility just 10 days ago for 4-vessel CABG, discharged on 08/29. While undergoing CABG, he suffered a stroke and came in today as he was concerned he was having another. Was having no other neurological issues. We were consulted for acute renal failure. Presenting SCr of 3.65 that has worsened significantly from discharge on 08/29 at 1.53. Appears baseline renal function 1.2-1.6 according to previous records. States he has been at his usual state of health since his hospital discharge besides R hand weakness that resolved on its own while here in the ED. Denies any NVD. No NSAIDs. Denies any urinary issues. Review of previous imaging (namely CTA on 08/24) showed a L sided hydronephrosis extending to UVJ. THe patient was unaware of this. He has hx of bladder CA that was treated by surgical resection at [facility] about 1 year ago. Scheduled for f/u there in 1 month. CTA also revealed abdominal aneurysm that vascular surgery was consulted about and was supposed to have f/u as outpatient. Interval History Events noted and patient required intubation and is now back on the ventilator. Review of Systems General General Remarks Unable to obtain secondary to patient's clinical condition. Cardiovascular Cardiac: SHEN Objective Data Data Vital Signs Date Time Temp Pulse Resp B/P (MAP) Pulse Ox O2 Delivery O2 Flow Rate FiO2 10/04/16 10:59 96 40 10/04/16 08:30 97 40 10/04/16 08:00 94.6 68 22 134/82 (99) 98 10/04/16 08:00 45 10/04/16 07:35 97 45 10/04/16 07:00 97 Mechanical Ventilator 45 10/04/16 07:00 70 10/04/16 04:00 97.8 71 22 126/77 (93) 97 10/04/16 04:00 60 10/04/16 04:00 75 10/04/16 03:26 97 50 10/04/16 00:55 98 60 10/04/16 00:00 98.7 85 22 123/79 (94) 99 10/04/16 00:00 60 10/03/16 23:00 85 10/03/16 22:55 98 60 10/03/16 20:35 98 60 10/03/16 20:00 60 10/03/16 20:00 99.3 89 27 122/72 (89) 98 10/03/16 19:00 89 10/03/16 19:00 98 Mechanical Ventilator 60 10/03/16 16:05 97 60 10/03/16 16:00 60 10/03/16 16:00 99.3 93 25 111/70 (84) 98 10/03/16 15:00 95 10/03/16 13:00 70 10/03/16 12:55 97 70 10/03/16 12:00 99.8 76 25 139/81 (100) 96 10/03/16 11:20 96 100 10/03/16 11:15 100 -: 10/04/16 0440 10/04/16 0440 Microbiology 10/03/16 Aerobic Blood Culture, Received Pending 10/03/16 Anaerobic Blood Culture, Received Pending 10/03/16 Aerobic Blood Culture, Received Pending 10/03/16 Anaerobic Blood Culture, Received Pending 10/03/16 Influenza Types A,B Antigen (JAME) - Final, Complete NEGATIVE FOR FLU A AND B ANTIGEN.... 10/03/16 Gram Stain - Final, Resulted 10/03/16 Sputum Culture, Resulted Pending 10/03/16 Streptococcus pneumoniae Antigen (M - Final, Complete PRESUMPTIVE NEGATIVE FOR STREPTOCOCCU... Physical Exam General Appearance: No Acute Distress Eyes Eye Exam: Sclera White Pulmonary Resp Exam: Clear Bilaterally, Breath Sounds Equal, No Distress Cardiology CV Exam: Regular, Normal Sinus Rhythm Gastrointestinal/Abdomen GI Exam: Soft, Non-Tender, Distended Integumentary Skin Exam: Clear, Warm Skin Remarks Skin turgor diminished. Extremeties Extremities Exam: No Edema Assessment/Plan Discussed Condition With: Patient Problem List: (1) Acute kidney failure ICD Codes: N17.9 - Acute kidney failure, unspecified Status: Acute Plan: Differential diagnosis at this point as far as previous acute renal insufficiency is concerned would be atheroembolic disease occurring during previous admission with subsequent decline in renal function and a lesser consideration towards interstitial nephritis possibly related to Protonix. Kidney biopsy could not be performed secondary to patient's clinical condition and he also indicated to me during this admission that he would not agree to same. No overt evidence of fluid overload at this time and the patient's ejection fraction said to be preserved by echocardiogram. I believe the primary issue here as far as his respiratory status is concerned his intrinsic pulmonary disease rather than congestive heart failure although utilization of diuretic therapy to maintain euvolemic okay from a renal point of view so long as dehydration is avoided. Patient's renal indices have improved but not back to his previous baseline prior to this admission and possibly will not do so. There is however no indication for dialytic intervention at this time. Patient will be seen intermittently at this point. I nothing to add further to management presently. Please note that prednisone 40 mg equivalent was started empirically for possible interstitial nephritis related to Protonix. Noted patient has been started on Solu-Medrol secondary to respiratory issues. I will defer steroid therapy to critical care/pulmonary at this time. Would like however if the patient goes back on prednisone that it be tapered slowly over a few weeks.. Recommend avoidance of Protonix in the future without kidney biopsy to confirm or eliminate incision nephritis. Medications should be adjusted for the patient's renal decline. Avoid nephrotoxic medications including NSAIDs and iodinated contrast dyes. Gadolinium should be avoided as eGFR 30. . Please call if any questions however. (2) CKD (chronic kidney disease), stage III ICD Codes: N18.3 - Chronic kidney disease, stage 3 (moderate) Status: Chronic (3) Hypoxemic respiratory failure, chronic ICD Codes: J96.11 - Chronic respiratory failure with hypoxia Status: Acute Plan: Pt s/p extubation, but not tolerating Bi-PAP. Sats in upper 80s to 90s on NC. (4) TIA (transient ischemic attack) ICD Codes: G45.9 - Transient cerebral ischemic attack, unspecified Status: Acute (5) Hypertension ICD Codes: I10 - Essential (primary) hypertension Status: Acute (6) CAD (coronary artery disease) ICD Codes: I25.10 - Atherosclerotic heart disease of [place] coronary artery without angina pectoris Status: Chronic (7) Congestive heart failure ICD Codes: I50.9 - Heart failure, unspecified Status: Acute Plan: Compensated currently. (8) Anemia ICD Codes: D64.9 - Anemia, unspecified Status: Acute Plan: Of acute illness. Problem Qualifiers (1) TIA (transient ischemic attack): Liv Cerda MD Oct 04, 2016 11:09
--- NOTE | 2016-10-04 12:42 | PD.PROCEDR ---
Central Line Procedure REASON FOR PROCEDURE Central venous access PROCEDURE PERFORMED Central line placement: R IJ CVL CONSENT Informed consent for procedure was obtained. The risks and benefits of the procedure were discussed to include but limited to bleeding, clot formation, infection, and even . ANESTHESIA Local injection of 1% Lidocaine DESCRIPTION OF THE PROCEDURE The patient was placed in supine, mild Trendelenburg position. The area was exposed and cleansed with ChloraPrep, times two. Large sterile drape was used to cover the patient, with the site exposed, under sterile conditions including cap, face mask, sterile gown, and sterile gloves. On single attempt, the introducer needle was inserted with negative pressure in syringe and venous flash was obtained. The guide wire was then advanced without any restriction and the needle was removed. The dilator was used without any complications. Using Seldinger technique the triple catheter was advanced over the guide wire to a depth of 16 centimeters. The guide wire was removed. All ports were aspirated with dark venous blood return and flushed easily with sterile saline. All ports were capped. Antibiotic disc was placed around central line at puncture site. The central line was secured to the skin with two interrupted 2.0 silk sutures. The area was bandaged with sterile see-through central line bandage. RADIOLOGICAL DATA Ultrasound guidance was used to locate R IJ CVL. Doppler/color flow was used to confirm venous flow. COMPLICATIONS: No apparent complications ESTIMATED BLOOD LOSS: Less than 1 cc. Zay Romero MD Oct 04, 2016 12:42
[2016-10-04] MEDS ORDERED: SODIUM CHLORIDE 0.9% FLUSH 10 ML FLUSH IVF PRN (12:45)
--- NOTE | 2016-10-04 13:20 | RADRPT ---
EXAM DATE/TIME: 10/04/2016 12:52 [facility] COMPARISON: CHEST SINGLE AP, October 04, 2016, 3:57. INDICATIONS : Central line placement MEDICAL HISTORY : Myocardial infarction. Cardiovascular disease. Aneurysm, abdominal. SURGICAL HISTORY : CABG. Abdominal aortic aneurysm repair. cornary artery stent ENCOUNTER: Subsequent ACUITY: 1 month PAIN SCORE: Non-responsive. LOCATION: Bilateral chest FINDINGS: Central line is in good position. Coarse interstitial changes are seen in both lungs cardiomegaly. Sternal wires of previous bypass are noted. There is no pneumothorax or pleural effusion. CONCLUSION: Central line good position without pneumothorax. Victor Hugo Kiser MD FACR on October 04, 2016 at 13:18 Board Certified Radiologist. This report was verified electronically.
--- NOTE | 2016-10-04 14:33 | HHI.IDPN ---
Note Infectious Disease Note Patient intubated late yesterday 10/03. On the vent. Sedated. Afebrile. PAST MEDICAL HISTORY 1. Coronary artery disease. 2. History of atrial fibrillation. 3. History of aortic aneurysm. 4. Bladder cancer treated with cystectomy. 5. Coronary artery bypass graft surgery. 6. Colon cancer history. 7. Peripheral vascular disease. 8. Hypertension. 9. History of transurethral resection of bladder tumor. 10.History of abdominal aortic aneurysm repair. ALLERGIES 1. SIMVASTATIN. 2. PRAVASTATIN. 3. ATORVASTATIN. ANTIBIOTICS 1. Zyvox. 2. Levaquin. 3. Meropenem. OBJECTIVE: Vital Signs Date Time Temp Pulse Resp B/P (MAP) Pulse Ox O2 Delivery O2 Flow Rate FiO2 10/04/16 10:59 96 40 10/04/16 08:30 97 40 10/04/16 08:00 94.6 68 22 134/82 (99) 98 10/04/16 08:00 45 10/04/16 07:35 97 45 10/04/16 07:00 97 Mechanical Ventilator 45 10/04/16 07:00 70 10/04/16 04:00 97.8 71 22 126/77 (93) 97 10/04/16 04:00 60 10/04/16 04:00 75 10/04/16 03:26 97 50 10/04/16 00:55 98 60 10/04/16 00:00 98.7 85 22 123/79 (94) 99 10/04/16 00:00 60 10/03/16 23:00 85 10/03/16 22:55 98 60 10/03/16 20:35 98 60 10/03/16 20:00 60 10/03/16 20:00 99.3 89 27 122/72 (89) 98 10/03/16 19:00 89 10/03/16 19:00 98 Mechanical Ventilator 60 10/03/16 16:05 97 60 10/03/16 16:00 60 10/03/16 16:00 99.3 93 25 111/70 (84) 98 10/03/16 15:00 95 Laboratory Tests Test 10/03/16 05:24 10/04/16 04:40 White Blood Count 15.4 TH/MM3 10.3 TH/MM3 Red Blood Count 3.78 MIL/MM3 3.61 MIL/MM3 Hemoglobin 10.8 GM/DL 10.7 GM/DL Hematocrit 33.7 % 32.6 % Mean Corpuscular Volume 89.2 FL 90.2 FL Mean Corpuscular Hemoglobin 28.5 PG 29.5 PG Mean Corpuscular Hemoglobin Concent 31.9 % 32.7 % Red Cell Distribution Width 17.0 % 16.5 % Platelet Count 409 TH/MM3 332 TH/MM3 Mean Platelet Volume 7.4 FL 7.9 FL Neutrophils (%) (Auto) 91.0 % Lymphocytes (%) (Auto) 6.4 % Monocytes (%) (Auto) 2.1 % Eosinophils (%) (Auto) 0.0 % Basophils (%) (Auto) 0.5 % Neutrophils # (Auto) 9.3 TH/MM3 Lymphocytes # (Auto) 0.7 TH/MM3 Monocytes # (Auto) 0.2 TH/MM3 Eosinophils # (Auto) 0.0 TH/MM3 Basophils # (Auto) 0.1 TH/MM3 CBC Comment DIFF FINAL Differential Comment Laboratory Tests Test 10/03/16 05:24 10/03/16 13:00 10/04/16 04:40 Blood Urea Nitrogen 70 MG/DL 76 MG/DL Creatinine 2.29 MG/DL 2.21 MG/DL Random Glucose 106 MG/DL 128 MG/DL Calcium Level 8.6 MG/DL 9.2 MG/DL Phosphorus Level 4.1 MG/DL 6.8 MG/DL Magnesium Level 2.0 MG/DL 2.1 MG/DL 2.5 MG/DL Sodium Level 134 MEQ/L 133 MEQ/L Potassium Level 3.9 MEQ/L 4.2 MEQ/L 4.8 MEQ/L Chloride Level 94 MEQ/L 93 MEQ/L Carbon Dioxide Level 29.5 MEQ/L 30.2 MEQ/L Anion Gap 11 MEQ/L 10 MEQ/L Estimat Glomerular Filtration Rate 28 ML/MIN 29 ML/MIN B-Type Natriuretic Peptide 311 PG/ML Microbiology Date/Time Source Procedure Growth Status 10/03/16 13:35 Blood Peripheral Aerobic Blood Culture - Preliminary NO GROWTH IN 1 DAY Resulted 10/03/16 13:35 Blood Peripheral Anaerobic Blood Culture - Preliminary NO GROWTH IN 1 DAY Resulted 10/03/16 13:30 Blood Peripheral Aerobic Blood Culture - Preliminary NO GROWTH IN 1 DAY Resulted 10/03/16 13:30 Blood Peripheral Anaerobic Blood Culture - Preliminary NO GROWTH IN 1 DAY Resulted 10/03/16 12:49 Nasal Washing Influenza Types A,B Antigen (JAME) - Final NEGATIVE FOR FLU A AND B ANTIGEN.... Complete 10/03/16 12:31 Sputum Endotracheal Gram Stain - Final Resulted 10/03/16 12:31 Sputum Endotracheal Sputum Culture - Preliminary RARE GROWTH NORMAL RESPIRATORY MEL ... Resulted 10/03/16 12:20 Urine Catheterized Urine Streptococcus pneumoniae Antigen (M - Final PRESUMPTIVE NEGATIVE FOR STREPTOCOCCU... Complete IMAGING: Chest X-Ray 10/04/16 1240 Signed Impressions: Service Date/Time: Tuesday, October 04, 2016 12:52 - CONCLUSION: Central line good position without pneumothorax. Victor Hugo Kiser MD FACR Chest X-Ray 10/04/16 0600 Signed Impressions: Service Date/Time: Tuesday, October 04, 2016 03:57 - CONCLUSION: Mild improved aeration at the left lung base with continued diffuse bilateral interstitial and air space opacity. Jarad Delgado MD Chest X-Ray 10/03/16 0600 Signed Impressions: Service Date/Time: Monday, October 03, 2016 04:25 - CONCLUSION: Diffuse airspace disease throughout the lungs, overall stable from the previous study. Wing Marroquin MD Chest X-Ray 10/03/16 0000 Signed Impressions: Service Date/Time: Monday, October 03, 2016 11:22 - CONCLUSION: Interval intubation with the endotracheal tube positioned just above the level of the clavicles. Stable right sided central line. Severe bilateral airspace consolidation which may represent ARDS, cardiogenic pulmonary edema or severe pneumonia.. Casandra Moreno MD Chest X-Ray 10/01/16 0600 Signed Impressions: Service Date/Time: Saturday, October 01, 2016 04:35 - CONCLUSION: Patchy bilateral infiltrates. Aorta is quite tortuous. Wing Marroquin MD Chest X-Ray 09/30/16 0600 Signed Impressions: Service Date/Time: September 04:42 - CONCLUSION: 1. Stable bilateral airspace and interstitial disease over the last several days. No pneumothorax or significant effusion. Amado Crain MD Chest X-Ray 09/29/16 0000 Signed Impressions: Service Date/Time: Thursday, September 29, 2016 01:36 - CONCLUSION: 1. Improvement in pulmonary edema pattern since September 28. No new consolidation or effusion. Amado Crain MD Chest X-Ray 09/23/16 0000 Signed Impressions: Service Date/Time: September 08:16 - CONCLUSION: 1. Multiple tubes and lines are in good positions. 2. Bilateral pulmonary infiltrates are unchanged compared to the previous examination. Jeffrey Mohan MD Chest CT 09/21/16 0000 Signed Impressions: Service Date/Time: Wednesday, September 21, 2016 22:34 - CONCLUSION: 1. Diffuse airspace opacities with ground glass appearance throughout both lungs. 2. Moderate-sized bilateral pleural effusions. 3. Ectatic and dilated descending thoracic aorta, measuring up to 5.[address] Martinez MD Head Magnetic Resonance Angiography 09/10/16 1028 Signed Impressions: Service Date/Time: Saturday, September 10, 2016 10:57 - CONCLUSION: 1. Unremarkable MRA examination without evidence for large vessel occlusion, aneurysm, or vascular malformation. Richardson Haney MD Brain MRI 09/10/16 1028 Signed Impressions: Service Date/Time: Saturday, September 10, 2016 10:57 - CONCLUSION: 1. Findings most consistent with new embolic infarcts involving both the anterior and posterior circulation. Richardson Haney MD Carotid Artery Ultrasound 09/09/16 1028 Signed Impressions: Service Date/Time: September 10:43 - CONCLUSION: 1. Moderate visible plaque without hemodynamically significant stenosis identified. No significant change from August 25. Amado Crain MD Renal Ultrasound 09/09/16 0000 Signed Impressions: Service Date/Time: September 15:41 - CONCLUSION: 1. Cortical atrophy with small bilateral renal cysts. No hydronephrosis. Amado Crain MD Head CT 09/08/16 2251 Signed Impressions: Service Date/Time: Thursday, September 08, 2016 23:41 - CONCLUSION: Stable noncontrast CT with no evidence of hemorrhage or acute infarction. Atrophy and chronic small vessel splenic changes remain. Sanya Cavazos MD PHYSICAL EXAMINATION GENERAL: Ont the vent HEENT: Sclera is non-icteric. Oropharynx mucosa moist. NECK: No swelling or adenopathy. LUNGS: Coarse breath sounds. HEART: Nl S1S2, No audible murmur, rub or gallop. ABDOMEN: Bowel sounds present. Soft. EXTREMITIES: No clubbing, no cyanosis. no edema. SKIN: No diffuse rash. NEUROLOGIC: Unable to assess. PSYCH: unable to assess on the vent. IMPRESSION 1. Acute respiratory failure. 3rd intubation. 2. Bilateral lung infiltrates, probable HCAP pneumonia. Pulmonary thinks amiodarone toxicity. 3. Leukocytosis. WBC improving. 4. Acute kidney disease. receiving Hemodialysis. RECOMMENDATIONS Continue Meropenem. Continue PO Zyvox. Stop PO Levaquin. Follow sputum culture. Monitor clinical status. Sae Nova MD Oct 04, 2016 14:33
[2016-10-04] MEDS: SODIUM CHLORIDE 0.9% FLUSH 10 ML FLUSH IVF SCH (14:42)
--- NOTE | 2016-10-04 15:07 | PD.CAR.PN ---
CVT Progress Note Subjective/Hospital Course: pt was OOB and stood on side of bed, did participate in exercises recommend continued PT/OT OOB to chair wean 02 as tolerated off amiodarone / concern for toxicity continue pulm toileting 10/01 remains on high flow 02 poor reserve, continue diuresis , antibiotics/ OOB as tolerated 10/02/16 continues on high flow O2 No c/o 10/04 pt reintubated yesterday , 2/2 resp distress now sedated on vent, on 40% fio2 renal function stable, non-oliguric Objective: GENERAL: orally intubated, sedated on vent SKIN: Warm and dry. sternal incision intact and well approximated HEAD: Atraumatic. Normocephalic. EYES: Pupils equal and round. No scleral icterus. No injection or drainage. ENT: No nasal bleeding or discharge. Mucous membranes pink and moist. NECK: Trachea midline. No JVD. CARDIOVASCULAR: Regular rate and rhythm. RESPIRATORY: No accessory muscle use. Clear to auscultation. Breath sounds equal bilaterally. / coarse bilateral breath sounds GASTROINTESTINAL: Abdomen soft, non-tender, nondistended. Hepatic and splenic margins not palpable. on tube feeds MUSCULOSKELETAL: Extremities without clubbing, cyanosis, or edema. No obvious deformities. NEUROLOGICAL: sedated on vent Vital Signs Date Time Temp Pulse Resp B/P (MAP) Pulse Ox O2 Delivery O2 Flow Rate FiO2 10/04/16 12:00 40 10/04/16 12:00 95.6 65 25 108/60 (76) 95 10/04/16 11:00 65 10/04/16 10:59 96 40 10/04/16 08:30 97 40 10/04/16 08:00 94.6 68 22 134/82 (99) 98 10/04/16 08:00 45 10/04/16 07:35 97 45 10/04/16 07:00 97 Mechanical Ventilator 45 10/04/16 07:00 70 10/04/16 04:00 97.8 71 22 126/77 (93) 97 10/04/16 04:00 60 10/04/16 04:00 75 10/04/16 03:26 97 50 10/04/16 00:55 98 60 10/04/16 00:00 98.7 85 22 123/79 (94) 99 10/04/16 00:00 60 10/03/16 23:00 85 10/03/16 22:55 98 60 10/03/16 20:35 98 60 10/03/16 20:00 60 10/03/16 20:00 99.3 89 27 122/72 (89) 98 10/03/16 19:00 89 10/03/16 19:00 98 Mechanical Ventilator 60 10/03/16 16:05 97 60 10/03/16 16:00 60 10/03/16 16:00 99.3 93 25 111/70 (84) 98 Labs: Laboratory Tests Test 10/04/16 04:40 10/04/16 05:15 White Blood Count 10.3 TH/MM3 (4.0-11.0) Red Blood Count 3.61 MIL/MM3 (4.50-5.90) Hemoglobin 10.7 GM/DL (13.0-17.0) Hematocrit 32.6 % (39.0-51.0) Mean Corpuscular Volume 90.2 FL (80.0-100.0) Mean Corpuscular Hemoglobin 29.5 PG (27.0-34.0) Mean Corpuscular Hemoglobin Concent 32.7 % (32.0-36.0) Red Cell Distribution Width 16.5 % (11.6-17.2) Platelet Count 332 TH/MM3 (150-450) Mean Platelet Volume 7.9 FL (7.0-11.0) Neutrophils (%) (Auto) 91.0 % (16.0-70.0) Lymphocytes (%) (Auto) 6.4 % (9.0-44.0) Monocytes (%) (Auto) 2.1 % (0.0-8.0) Eosinophils (%) (Auto) 0.0 % (0.0-4.0) Basophils (%) (Auto) 0.5 % (0.0-2.0) Neutrophils # (Auto) 9.3 TH/MM3 (1.8-7.7) Lymphocytes # (Auto) 0.7 TH/MM3 (1.0-4.8) Monocytes # (Auto) 0.2 TH/MM3 (0-0.9) Eosinophils # (Auto) 0.0 TH/MM3 (0-0.4) Basophils # (Auto) 0.1 TH/MM3 (0-0.2) CBC Comment DIFF FINAL Differential Comment Blood Urea Nitrogen 76 MG/DL (7-18) Creatinine 2.21 MG/DL (0.60-1.30) Random Glucose 128 MG/DL (74-106) Calcium Level 9.2 MG/DL (8.5-10.1) Phosphorus Level 6.8 MG/DL (2.5-4.9) Magnesium Level 2.5 MG/DL (1.5-2.5) Sodium Level 133 MEQ/L (136-145) Potassium Level 4.8 MEQ/L (3.5-5.1) Chloride Level 93 MEQ/L (98-107) Carbon Dioxide Level 30.2 MEQ/L (21.0-32.0) Anion Gap 10 MEQ/L (5-15) Estimat Glomerular Filtration Rate 29 ML/MIN (>89) Blood Gas Puncture Site LT RADIAL Blood Gas Patient Temperature 98.6 Blood Gas HCO3 28 mmol/L (22-26) Blood Gas Base Excess 2.8 mmol/L (-2-2) Blood Gas Oxygen Saturation 96 % (90-100) Arterial Blood pH 7.33 (7.380-7.420) Arterial Blood Partial Pressure CO2 55 mmHg (38-42) Arterial Blood Partial Pressure O2 135 mmHg (61-120) Arterial Blood Oxygen Content 17.2 Vol % (12.0-20.0) Arterial Blood Carboxyhemoglobin 1.6 % (0-4) Arterial Blood Methemoglobin 1.1 % (0-2) Blood Gas Hemoglobin 12.6 G/DL (12.0-16.0) Oxygen Delivery Device VENTILATOR Blood Gas Ventilator Setting AC22/500/10PEEP Blood Gas Inspired Oxygen 50 % Result Diagram: 10/04/1643910/04/16439 (1) History of CVA (cerebrovascular accident) (2) CKD (chronic kidney disease) stage 3, GFR 30-59 ml/min Plan: stable indices (3) S/P CABG x 3 (4) Atrial fibrillation Plan: rate controlled, on eliquis (5) Acute hypoxemic respiratory failure Plan: reintubated on vent, CCM following (6) Hypertension (7) Thoracic aortic aneurysm without rupture Casandra Barton Oct 04, 2016 15:07
[2016-10-04] MEDS: MIDAZOLAM 100 MG/NS 100 ML DRIP Premix IV PRN (17:18)
--- NOTE | 2016-10-04 17:52 | HHI.PR ---
Subjective Remarks Intubated and on a ventilator , with FIo2 at 40 % Poor output Sedated with Propofol. Objective Vital Signs Date Time Temp Pulse Resp B/P (MAP) Pulse Ox O2 Delivery O2 Flow Rate FiO2 10/04/16 16:07 95 40 10/04/16 16:00 40 10/04/16 16:00 97.0 64 22 115/71 (86) 95 10/04/16 15:00 64 10/04/16 12:00 40 10/04/16 12:00 95.6 65 25 108/60 (76) 95 10/04/16 11:00 65 10/04/16 10:59 96 40 10/04/16 08:30 97 40 10/04/16 08:00 94.6 68 22 134/82 (99) 98 10/04/16 08:00 45 10/04/16 07:35 97 45 10/04/16 07:00 97 Mechanical Ventilator 45 10/04/16 07:00 70 10/04/16 04:00 97.8 71 22 126/77 (93) 97 10/04/16 04:00 60 10/04/16 04:00 75 10/04/16 03:26 97 50 10/04/16 00:55 98 60 10/04/16 00:00 98.7 85 22 123/79 (94) 99 10/04/16 00:00 60 10/03/16 23:00 85 10/03/16 22:55 98 60 10/03/16 20:35 98 60 10/03/16 20:00 60 10/03/16 20:00 99.3 89 27 122/72 (89) 98 10/03/16 19:00 89 10/03/16 19:00 98 Mechanical Ventilator 60 I/O 10/03/16 10/03/16 10/03/16 10/04/16 10/04/16 10/04/16 07:00 15:00 23:00 07:00 15:00 23:00 Intake Total 1060 ml 180 ml 557 ml 100 ml Output Total 2900 ml 1400 ml 875 ml Balance -1840 ml -1220 ml -318 ml 100 ml Intake Oral 960 ml 120 ml IV Total 100 ml 300 ml 100 ml Tube Feeding 197 ml Tube Irrigant 60 ml Other 60 ml Output Urine Total 2900 ml 1150 ml 875 ml Gastric Drainage Total 250 ml # Bowel Movements 0 0 0 Result Diagram: 10/04/1643910/04/16439 Objective Remarks GENERAL: This moderately overweight elderly man ,Intubated on the vent. HEENT: Head is normocephalic. Pupils are reactive. Tongue is moist. Throat clear NECK: No venous distention. Trachea is midline. No thyroid enlargement. CHEST: Equal movements with diminished breath sounds at the bases with bibasilar crackles.Occ Wheeze heard. HEART: Sounds are irregular S1-S2. No murmur. ABDOMEN: Soft. Protuberant without masses. No organomegaly. EXTREMITIES: Decreased pulses. .Edema 1 + SKIN: warm.Sedated . Assessment and Plan Assessment and Plan IMPRESSION 1. Acute respiratory failure.Resolving 2. Fluid overload status with pulmonary edema. 3. Acute kidney failure.Resolving 4. History of cerebrovascular accident. 5. Bibasilar atelectasis with possible pneumonia. 6. History of colon cancer and bladder cancer. Plan : 1. 2. FIO2 at 40 %and wean to keep sat >92. 3. Nebs qid ,Duoneb. 4. Wean sedation 5. Antibiotics per ID 6. Lasix 20 mg IV daily 7. PT Evaluation. 8. CPAP trial in am if stable. 9. Chest X ray in am 10. Add solumedrol 40 mg bid Jaime Encinas MD Oct 04, 2016 17:52
--- NOTE | 2016-10-04 19:35 | PD.CARD.PN ---
Subjective Subjective Remarks Intubated, sedated Objective Medications Current Medications Medications (Trade) Dose Ordered Sig/Awilda Route Start Time Stop Time Status Last Admin (NS Flush) 2 ml UNSCH PRN IV FLUSH 09/09/16 00:45 (NS Flush) 2 ml BID IV FLUSH 09/09/16 09:00 10/04/16 09:06 (Narcan Inj) 0.4 mg UNSCH PRN IV 09/09/16 00:45 (Xanax) 0.25 mg Q6H PRN PO 09/09/16 13:45 10/03/16 09:35 (Pill Splitter) 1 ea UNSCH PRN OTHER 09/09/16 14:00 (Eliquis) 5 mg BID PO 09/10/16 09:00 10/04/16 09:05 (Catapres) 0.1 mg Q6H PRN PO 09/11/16 14:30 09/19/16 23:02 (Lopressor Inj) 5 mg Q2HR PRN IV PUSH 09/16/16 14:00 09/26/16 05:00 (Apresoline Inj) 10 mg Q6HR PRN IV PUSH 09/16/16 12:45 10/03/16 06:48 (Racepinephrine 2.25% Neb) 0.5 ml Q1HR NEB PRN NEB 09/17/16 17:15 09/17/16 18:02 (Milk Of Magnesia Liq) 30 ml Q12H PRN PO 09/19/16 13:30 09/19/16 13:30 (Senokot) 17.2 mg Q12H PRN PO 09/19/16 13:30 (Dulcolax Supp) 10 mg DAILY PRN RECTAL 09/19/16 13:30 (Lactulose Liq) 30 ml DAILY PRN PO 09/19/16 13:30 (Albuterol Neb) 2.5 mg Q2HR NEB PRN NEB 09/21/16 12:00 10/02/16 21:16 (Phoslo) 667 mg TID PO 09/21/16 18:00 10/04/16 17:28 (Peridex 0.12% Liq) 15 ml BID@08,20 MT 09/22/16 20:00 10/04/16 09:19 (Zyvox) 600 mg Q12HR PO 09/27/16 21:00 10/04/16 09:05 Meropenem 500 mg/ Sodium Chloride 100 ml @ 200 mls/hr Q12H IV 09/28/16 12:00 10/04/16 11:25 (Ecotrin Ec) 81 mg DAILY PO 09/30/16 09:00 10/04/16 09:05 (Trandate) 100 mg TID PO 09/30/16 13:00 10/04/16 17:28 (NovoLOG SUPPLEMENTAL SCALE) 1 Q6HR SQ 10/01/16 13:15 10/04/16 11:21 (D50w (Vial) Inj) 50 ml UNSCH PRN IV PUSH 10/01/16 13:15 (Glucagon Inj) 1 mg UNSCH PRN OTHER 10/01/16 13:15 (Singulair) 10 mg HS PO 10/02/16 21:00 10/03/16 21:22 (Lasix Inj) 40 mg UNSCH IV 10/02/16 09:30 10/02/16 22:59 (Lasix) 20 mg DAILY PO 10/03/16 09:00 10/04/16 09:05 (Tears Naturale Opth Soln) 1 drop Q8HR EACH EYE 10/03/16 14:00 10/04/16 14:36 Propofol 100 ml @ 2.646 mls/ hr Q24H PRN IV 10/03/16 11:21 10/04/16 17:28 (SoluMEDROL INJ) 40 mg Q8HR IV PUSH 10/03/16 14:00 10/04/16 14:36 Midazolam HCl 100 ml @ 2 mls/hr TITRATE PRN IV 10/03/16 22:00 10/04/16 17:18 (Pepcid) 20 mg DAILY NG 10/04/16 09:00 10/04/16 09:28 (Colace Liq) 100 mg Q12HR NG 10/04/16 09:00 10/04/16 09:25 (Senna Liq) 8.8 mg BID NG 10/04/16 09:00 10/04/16 09:25 (Miralax) 17 gm DAILY PO 10/04/16 09:00 10/04/16 09:25 (Duoneb Neb) 1 ampule Q6HR NEB NEB 10/04/16 10:00 10/04/16 16:05 (NS Flush) DAILY IVF 10/04/16 12:45 10/04/16 14:42 (NS Flush) UNSCH PRN IVF 10/04/16 12:45 Vital Signs / I&O Vital Signs Date Time Temp Pulse Resp B/P (MAP) Pulse Ox O2 Delivery O2 Flow Rate FiO2 10/04/16 16:07 95 40 10/04/16 16:00 40 10/04/16 16:00 97.0 64 22 115/71 (86) 95 10/04/16 15:00 64 10/04/16 12:00 40 10/04/16 12:00 95.6 65 25 108/60 (76) 95 10/04/16 11:00 65 10/04/16 10:59 96 40 10/04/16 08:30 97 40 10/04/16 08:00 94.6 68 22 134/82 (99) 98 10/04/16 08:00 45 10/04/16 07:35 97 45 10/04/16 07:00 97 Mechanical Ventilator 45 10/04/16 07:00 70 10/04/16 04:00 97.8 71 22 126/77 (93) 97 10/04/16 04:00 60 10/04/16 04:00 75 10/04/16 03:26 97 50 10/04/16 00:55 98 60 10/04/16 00:00 98.7 85 22 123/79 (94) 99 10/04/16 00:00 60 10/03/16 23:00 85 10/03/16 22:55 98 60 10/03/16 20:35 98 60 10/03/16 20:00 60 10/03/16 20:00 99.3 89 27 122/72 (89) 98 I/O 10/03/16 10/03/16 10/03/16 10/04/16 10/04/16 10/04/16 07:00 15:00 23:00 07:00 15:00 23:00 Intake Total 1060 ml 180 ml 557 ml 100 ml 644 ml Output Total 2900 ml 1400 ml 875 ml 725 ml Balance -1840 ml -1220 ml -318 ml 100 ml -81 ml Intake Oral 960 ml 120 ml 193 ml IV Total 100 ml 300 ml 100 ml 451 ml Tube Feeding 197 ml Tube Irrigant 60 ml Other 60 ml Output Urine Total 2900 ml 1150 ml 875 ml 725 ml Gastric Drainage Total 250 ml 0 ml # Bowel Movements 0 0 0 Physical Exam GENERAL: Intubated, sedated SKIN: Warm and dry. HEAD: Normocephalic. EYES: No scleral icterus. No injection or drainage. NECK: Supple, trachea midline. No JVD or lymphadenopathy. CARDIOVASCULAR: Regular rate and rhythm without murmurs, gallops, or rubs. RESPIRATORY: Breath sounds equal bilaterally. No accessory muscle use. GASTROINTESTINAL: Abdomen soft, non-tender, nondistended. MUSCULOSKELETAL: No cyanosis, or edema. Laboratory Laboratory Tests Test 10/04/16 04:40 10/04/16 05:15 White Blood Count 10.3 TH/MM3 Red Blood Count 3.61 MIL/MM3 Hemoglobin 10.7 GM/DL Hematocrit 32.6 % Mean Corpuscular Volume 90.2 FL Mean Corpuscular Hemoglobin 29.5 PG Mean Corpuscular Hemoglobin Concent 32.7 % Red Cell Distribution Width 16.5 % Platelet Count 332 TH/MM3 Mean Platelet Volume 7.9 FL Neutrophils (%) (Auto) 91.0 % Lymphocytes (%) (Auto) 6.4 % Monocytes (%) (Auto) 2.1 % Eosinophils (%) (Auto) 0.0 % Basophils (%) (Auto) 0.5 % Neutrophils # (Auto) 9.3 TH/MM3 Lymphocytes # (Auto) 0.7 TH/MM3 Monocytes # (Auto) 0.2 TH/MM3 Eosinophils # (Auto) 0.0 TH/MM3 Basophils # (Auto) 0.1 TH/MM3 CBC Comment DIFF FINAL Differential Comment Blood Urea Nitrogen 76 MG/DL Creatinine 2.21 MG/DL Random Glucose 128 MG/DL Calcium Level 9.2 MG/DL Phosphorus Level 6.8 MG/DL Magnesium Level 2.5 MG/DL Sodium Level 133 MEQ/L Potassium Level 4.8 MEQ/L Chloride Level 93 MEQ/L Carbon Dioxide Level 30.2 MEQ/L Anion Gap 10 MEQ/L Estimat Glomerular Filtration Rate 29 ML/MIN Blood Gas Puncture Site LT RADIAL Blood Gas Patient Temperature 98.6 Blood Gas HCO3 28 mmol/L Blood Gas Base Excess 2.8 mmol/L Blood Gas Oxygen Saturation 96 % Arterial Blood pH 7.33 Arterial Blood Partial Pressure CO2 55 mmHg Arterial Blood Partial Pressure O2 135 mmHg Arterial Blood Oxygen Content 17.2 Vol % Arterial Blood Carboxyhemoglobin 1.6 % Arterial Blood Methemoglobin 1.1 % Blood Gas Hemoglobin 12.6 G/DL Oxygen Delivery Device VENTILATOR Blood Gas Ventilator Setting AC22/500/10PEEP Blood Gas Inspired Oxygen 50 % Imaging Last Impressions Chest X-Ray 10/04/16 1240 Signed Impressions: Service Date/Time: Tuesday, October 04, 2016 12:52 - CONCLUSION: Central line good position without pneumothorax. Victor Hugo Kiser MD FACR Chest CT 09/21/16 0000 Signed Impressions: Service Date/Time: Wednesday, September 21, 2016 22:34 - CONCLUSION: 1. Diffuse airspace opacities with ground glass appearance throughout both lungs. 2. Moderate-sized bilateral pleural effusions. 3. Ectatic and dilated descending thoracic aorta, measuring up to 5.[address] Martinez MD Head Magnetic Resonance Angiography 09/10/16 1028 Signed Impressions: Service Date/Time: Saturday, September 10, 2016 10:57 - CONCLUSION: 1. Unremarkable MRA examination without evidence for large vessel occlusion, aneurysm, or vascular malformation. Richardson Haney MD Brain MRI 09/10/16 1028 Signed Impressions: Service Date/Time: Saturday, September 10, 2016 10:57 - CONCLUSION: 1. Findings most consistent with new embolic infarcts involving both the anterior and posterior circulation. Richardson Haney MD Carotid Artery Ultrasound 09/09/16 1028 Signed Impressions: Service Date/Time: September 10:43 - CONCLUSION: 1. Moderate visible plaque without hemodynamically significant stenosis identified. No significant change from August 25. Amado Crain MD Renal Ultrasound 09/09/16 0000 Signed Impressions: Service Date/Time: September 15:41 - CONCLUSION: 1. Cortical atrophy with small bilateral renal cysts. No hydronephrosis. Amado Crain MD Head CT 09/08/16 2251 Signed Impressions: Service Date/Time: Thursday, September 08, 2016 23:41 - CONCLUSION: Stable noncontrast CT with no evidence of hemorrhage or acute infarction. Atrophy and chronic small vessel splenic changes remain. Sanya Cavazos MD Assessment and Plan Problem List: (1) History of CVA (cerebrovascular accident) ICD Codes: Z86.73 - Personal history of transient ischemic attack (TIA), and cerebral infarction without residual deficits Status: Acute (2) CKD (chronic kidney disease) stage 3, GFR 30-59 ml/min ICD Codes: N18.3 - Chronic kidney disease, stage 3 (moderate) Status: Acute (3) S/P CABG x 3 ICD Codes: Z95.1 - Presence of aortocoronary bypass graft Status: Acute (4) Atrial fibrillation ICD Codes: I48.91 - Unspecified atrial fibrillation (5) Acute hypoxemic respiratory failure ICD Codes: J96.01 - Acute respiratory failure with hypoxia Status: Acute (6) Hypertension ICD Codes: I10 - Essential (primary) hypertension Status: Acute (7) Thoracic aortic aneurysm without rupture ICD Codes: I71.2 - Thoracic aortic aneurysm, without rupture Status: Acute Assessment and Plan Continue ICU care. Intubated yesterday. Off amio due to possible pulmonary toxicity. Continue steroids. Monitor renal fx. Rhythm stable. No new cardiac issues. Michael Tompkins MD Oct 04, 2016 19:35
[2016-10-04] MEDS: MONTELUKAST SODIUM 10 MG TAB PO SCH (19:58)
[2016-10-05] VITALS (20 sets, daily range): BP systolic 109–128; BP diastolic 58–76; PULSE 72–97; RESP 16–25; TEMP 97.2–99; O2SAT 93–98
[2016-10-05] MEDS: MEROPENEM INJ 500 MG in SODIUM CHLORIDE 0.9% INJ 100 ML IV SCH ×3 (00:24→23:58)
[2016-10-05 04:13] LABS: AUTOMATED NEUTROPHIL # 10.6 TH/MM3 (1.8-7.7); BASOPHIL % 0.2 % (0.0-2.0); HEMATOCRIT 32.6 % (39.0-51.0); HEMO FLAGS DIFF FINAL; LYMPH % 4.8 % (9.0-44.0); LYMPHOCYTE # 0.6 TH/MM3 (1.0-4.8); MEAN CELL VOLUME 90.3 FL (80.0-100.0); MEAN CORPUSCULAR HEMOGLOBIN 28.9 PG (27.0-34.0); MONO % 4.5 % (0.0-8.0); NEUT % 90.5 % (16.0-70.0); PLATELET COUNT 345 TH/MM3 (150-450); RED CELL DISTRIBUTION WIDTH 16.2 % (11.6-17.2); WHITE BLOOD COUNT 11.8 TH/MM3 (4.0-11.0)
[2016-10-05] MEDS: ARTIFICIAL TEARS OPTH SOLN 15 ML BTL EACH EYE SCH ×3 (04:24→22:31)
[2016-10-05 04:32] LABS: ANION GAP 10 MEQ/L (5-15); AST (GOT) 19 U/L (15-37); BICARBONATE 31.6 MEQ/L (21.0-32.0); BLOOD UREA NITROGEN 83 MG/DL (7-18); CHLORIDE 94 MEQ/L (98-107); GLOMERULAR FILTRATION RATE 31 ML/MIN (>89); MAGNESIUM 2.6 MG/DL (1.5-2.5); POTASSIUM 4.9 MEQ/L (3.5-5.1); SODIUM (NA) 136 MEQ/L (136-145)
--- NOTE | 2016-10-05 04:38 | RADRPT ---
EXAM DATE/TIME: 10/05/2016 03:45 [facility] COMPARISON: CHEST SINGLE AP, October 04, 2016, 12:52. INDICATIONS : Short of breath. MEDICAL HISTORY : Myocardial infarction. Cardiovascular disease. Aneurysm, abdominal. SURGICAL HISTORY : CABG. Abdominal aortic aneurysm repair. cornary artery stent ENCOUNTER: Subsequent ACUITY: 1 month PAIN SCORE: 0/10 LOCATION: Bilateral chest FINDINGS: Portable AP view of the chest demonstrates a normal-sized cardiac silhouette in this patient post med annabelle sternotomy. Right IJ line, ETT, and nasogastric tube remain present. There is a relatively diffus e interstitial and airspace opacity bilaterally, slightly increased from yesterday's examination. No pneumothorax is visualized. There is an new bilateral inferior neck and supraclavicular region soft t issue air. CONCLUSION: 1. New soft tissue air in the visualized inferior neck and supraclavicular regions bilaterally. This is of uncertain etiology. No pneumothorax is visualized. 2. Bilateral interstitial and air space consolidation, slightly increased from yesterday's exam. Jarad Delgado MD on October 05, 2016 at 4:35 Board Certified Radiologist. This report was verified electronically.
[2016-10-05] MEDS: RESP: ALBUTEROL 2.5 MG/IPRATROPIUM 0.5 MG NEB (SCH) NEB ×4 (04:43→22:43)
[2016-10-05 04:45] LABS: ALKALINE PHOSPHATASE 66 U/L (45-117); ALT (GPT) 28 U/L (12-78); TOTAL BILIRUBIN ADULT 0.4 MG/DL (0.2-1.0)
[2016-10-05] MEDS: methylPREDNISolone SOD SUCC 40 MG/1 ML VIAL IV PUSH SCH ×3 (05:14→22:24)
[2016-10-05] MEDS: INSULIN ASPART SUPPLEMENTAL SCALE SQ SCH ×5 (05:24→23:58)
[2016-10-05] MEDS: PROPOFOL 1000 MG/100 ML INJ 100 ML IV PRN ×5 (05:30→22:24)
--- NOTE | 2016-10-05 08:46 | HHI.CCPN ---
Subjective Remarks/Hospital Course 75 y/o man now about 4 weeks following CABG complicated by CVA. Presented back 08/28 with new onset right arm weakness. Hospital course has been complicated by CKD and fluid overload. We have attempted BiPAP for several hours but he remains in distress and although oxygenation is acceptable work of breathing is excessive. Worrisome increasing metabolic acidosis. 09/17: Gas exchange much improved. BNP 1681, ScVO2 71%. It appears that cardiac output is more than adequate for peripheral needs and the primary pathology is renal failure and fluid overload. If we can manage volume I can probably get him extubated. 09/18: Diffuse crackles. Needs to be diuresed today. Tolerating extubation but at risk for hypoxemic failure again. 09/20 - Re consulted due to worsening hypoxia. Currently on nonrebreather mask. Chest x-ray shows worsening consolidation right lobe creatinine slightly improved over. Family request transfer to [facility] however refused. We'll attempt to decipher status currently unknown. 09/21: Remains on nonrebreather mask. Saturations between 89-97%. Chest x-ray unchanged. Not tachypnea. Not confused. 09/22: Radiographic studies show diffuse interstitial process with skip areas - more indicative of infectious/inflammatory process. Sats 85% with labored pattern. Required intubation for deteriorating respiratory status. 09/23: Gas exchange improving. Pulmonary infiltrates remain very concerning - if most recent sputum is benign I would not be opposed to steroids. 09/24: Extubated today. On 3 L nasal cannula. Passed swallow evaluation. Appropriate interactive status post extubation. 09/29: Critical care reconsult requested by Dr. Meza for respiratory failure. Patient reportedly was on BiPAP this morning. He was given additional diuretic earlier as he was short of breath. With this he seems to have improved somewhat and has been on a nonrebreather facemask for more than a few hours. He states that he is breathing much better. Patient being adamant about not using BiPAP. I had a detailed conversation about the importance of using BiPAP especially at night in view of his history of sleep apnea. Patient did not appear to be in acute distress though he was requiring a nonrebreather facemask at the time of my evaluation. No urgent need for BiPAP or intubation at this time. In fact patient is stating that he is breathing much better than this morning. 09/30: Remains on nonrebreather facemask. Refused BiPAP at night. States that he is breathing better today than yesterday. 10/01: 02 30 L/m 100% FiO2. O2 sats borderline. Episodes of confusion. When I evaluated the patient he was sitting up in bed and was able to converse. Not using accessory muscles of respirations currently. 10/02: The patient is alert and oriented currently has been weaned down to high flow nasal cannula with an FiO2 of 65%, maintaining O2 saturation to 95%. Patient is appropriately conversant no episodes of confusion noted. 10/03: Yesterday, the patient received 2 units of packed red blood cells with Furosemide dosing in between transfusion of units, with diuresis of approximately 2900 cc. Last night, the patient was noted to have respiratory decompensation, continued refusal to utilize BiPAP during the night. FiO2 requirements increased to 100% this a.m., on high flow nasal cannula, with noted accessory muscle use and inability to speak in complete sentences secondary to dyspnea. The patient received additional dose of Lasix this a.m. , chest x-ray appeared to be worsened this a.m. .Patient subsequently became hypoxic requiring emergent intubation this a.m.., O2 sat saturation 80s on 100 % FiO2. 10/04: Intubated yesterday due to general and hypoxia. Diuresed with 80 mg furosemide 1. Tmax 99.8. Currently 97.8. Tube feeds initiated. No bowel movement. Subjective: 10/05: Afebrile. Subcutaneous air in neck bilaterally on chest x-ray today. No obvious pneumothorax. No pneumothorax on chest x-ray yesterday post central line placement. Tolerating tube feeding. No bowel movement. Objective Vital Signs Date Time Temp Pulse Resp B/P (MAP) Pulse Ox O2 Delivery O2 Flow Rate FiO2 10/05/16 08:12 95 50 10/05/16 07:24 Mechanical Ventilator 10/05/16 07:00 92 10/05/16 04:00 97.6 23 111/64 (80) 10/02/16 21:45 30.00 Intake and Output 10/05/16 10/05/16 10/05/16 07:59 15:59 23:59 Intake Total 691 ml Output Total 800 ml Balance -109 ml Result Diagram: 10/05/16 0345 10/05/16 0345 Other Results Microbiology Date/Time Source Procedure Growth Status 10/03/16 13:35 Blood Peripheral Aerobic Blood Culture - Preliminary NO GROWTH IN 1 DAY Resulted 10/03/16 13:35 Blood Peripheral Anaerobic Blood Culture - Preliminary NO GROWTH IN 1 DAY Resulted 09/12/16 01:00 Stool Stool Stool Occult Blood (JAME) - Final HEMOCCULT NEGATIVE Complete 10/03/16 12:49 Nasal Washing Influenza Types A,B Antigen (JAME) - Final NEGATIVE FOR FLU A AND B ANTIGEN.... Complete 10/03/16 12:20 Urine Catheterized Urine Streptococcus pneumoniae Antigen (M - Final PRESUMPTIVE NEGATIVE FOR STREPTOCOCCU... Complete Imaging Last Impressions Chest X-Ray 10/05/16 0600 Signed Impressions: Service Date/Time: Wednesday, October 05, 2016 03:45 - CONCLUSION: 1. New soft tissue air in the visualized inferior neck and supraclavicular regions bilaterally. This is of uncertain etiology. No pneumothorax is visualized. 2. Bilateral interstitial and air space consolidation, slightly increased from yesterday's exam. Jarad Delgado MD Chest CT 09/21/16 0000 Signed Impressions: Service Date/Time: Wednesday, September 21, 2016 22:34 - CONCLUSION: 1. Diffuse airspace opacities with ground glass appearance throughout both lungs. 2. Moderate-sized bilateral pleural effusions. 3. Ectatic and dilated descending thoracic aorta, measuring up to 5.[address] Martinez MD Head Magnetic Resonance Angiography 09/10/16 1028 Signed Impressions: Service Date/Time: Saturday, September 10, 2016 10:57 - CONCLUSION: 1. Unremarkable MRA examination without evidence for large vessel occlusion, aneurysm, or vascular malformation. Richardson Haney MD Brain MRI 09/10/16 1028 Signed Impressions: Service Date/Time: Saturday, September 10, 2016 10:57 - CONCLUSION: 1. Findings most consistent with new embolic infarcts involving both the anterior and posterior circulation. Richardson Haney MD Carotid Artery Ultrasound 09/09/16 1028 Signed Impressions: Service Date/Time: September 10:43 - CONCLUSION: 1. Moderate visible plaque without hemodynamically significant stenosis identified. No significant change from August 25. Amado Crain MD Renal Ultrasound 09/09/16 0000 Signed Impressions: Service Date/Time: September 15:41 - CONCLUSION: 1. Cortical atrophy with small bilateral renal cysts. No hydronephrosis. Amado Crain MD Head CT 09/08/16 2251 Signed Impressions: Service Date/Time: Thursday, September 08, 2016 23:41 - CONCLUSION: Stable noncontrast CT with no evidence of hemorrhage or acute infarction. Atrophy and chronic small vessel splenic changes remain. Sanya Cavazos MD Objective Remarks GENERAL: 75-year-old male currently orotracheally intubated critically ill SKIN: Warm and dry. We'll perfused HEAD: Atraumatic. Normocephalic. NECK: Trachea midline. No thyromegaly. Positive bilateral crepitus. Right IJ is clean dry and intact. CARDIOVASCULAR: IRR. S1, S2 no S4. Without murmur RESPIRATORY: Air entry decreased bilaterally at bases, scattered rhonchi, no wheezing. GASTROINTESTINAL: Abdomen soft, non-tender, nondistended. No guarding. BS active. MUSCULOSKELETAL: Extremities with trace to 1+ B/L lower extremity edema. No obvious deformities. NEUROLOGICAL: Positive corneal reflex. Positive gag. Withdraws to noxious stimulation all 4 extremities. 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 Jeffries/neurology. 10/[address] Prajapati in view of episodes of confusion. Nonfocal. Currently on alprazolam 0.25 mg every 6 hours PRN Anxiety Currently on propofol at 40 mg/kg minutes and midazolam @ 4 mg an hour for sedation while intubated Goal of RA SS -2 Daily sedation vacation CV: Coronary disease status post CABG ASCVD Carotid stenosis TAAA Hypertension dyslipidemia History atrial fibrillation status post ablation 2011 Followed by cardiology. Currently off atorvastatin 40 mg daily/home medication for dyslipidemia On PO Apixaban 5 mg twice a day per cardiology. Off amiodarone for suspected pulmonary toxicity Echocardiogram revealed EF 70%. OHS septal motion./Paradoxical, CARA 50-60 mmHg Currently labetalol 100 mg 3 times a day for hypertension. As needed metoprolol for tachycardia Continue aspirin 81 mg by mouth daily Resp: Acute hypoxemic respiratory failure Subcutaneous air neck ACV 15/525/5/50 Ventilator bundle Albuterol/ipratropium every 6 hours with albuterol aerosols as indicated 3rd intubation. Last 10/03 Chest x-ray 10/05 - bilateral subcutaneous every neck. No obvious pneumothorax. CT chest pending rule out pneumothorax Possible barotrauma from mechanical ventilation. PEEP decreased from 10-5. 10/03 switched Methylprednisolone 40 mg every 8hrs- ( Prednisone 10mg q day discontinued) on prednisone due to pantoprazole-induced kidney injury per nephrology Pulmonary following Dr. Encinas Continue antibiotics per ID Dr. Nova GI: Currently on Suplena goal 55 cc an hour per dietary recommendations On famotidine 20 mg by mouth daily for GI prophylaxis Docusate sodium 100 mg twice a day, senna liquid 8.6 mg twice a day and polyethylene glycol 3350 17 g twice daily lactulose 30 cc 4 times a day for bowel regimen History of hydroureter Renal ultrasound Revealed no hydronephrosis Reinsert choi- intubated and receiving diuretics- Strict I&O's Endo: Sliding scale insulin if indicated Renal: Acute on chronic kidney injury Continue furosemide 20 mg by mouth daily Nephrology follow-up.. 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 Slowly wean steroids due to this issue. Dr. Cerda following Heme: History of colon cancer status post partial colectomy History of bladder cancer normocytic anemia Monitor CBC daily. Follow trends. Noted elevated lambda and kappa Chains/ESR likely secondary underlying acute kidney injury. Evaluated by Dr. Mccollum/hematology ID: Likely hospital-acquired pneumonia On meropenem/levofloxacin/linezolid since 09/27 per ID. Pertinent cultures 10/03-repeat blood, urine Legionella and pneumococcal antigens and sputum cultures follow-up results 10/03-influenza negative 09/28 - blood cultures 2 - no growth 09/22 - sputum - no growth 09/16 - blood cultures 2 - no growth FEN: Hyponatremia Hyperphosphatemia Hyper-magnesium Monitor and replete electrolytes Continue calcium acetate 667 mg 3 times a day MSK: PT evaluate and treat Prophylaxis - GI -famotidine - DVT - SCD/apixaban Access - Right subclavian CVL placed 09/16 - 10/04 - Right IJ CVL 10/04 present Critical Care: The total critical care time was 30 minutes. Time to perform other separately billable procedures was not included in the critical care time. Zay Romero MD Oct 05, 2016 08:46
[2016-10-05] MEDS: SENNOSIDES SYRUP 8.8 MG/5 ML CUP NG SCH ×2 (09:00→22:25)
[2016-10-05] MEDS: SODIUM CHLORIDE 0.9% FLUSH 10 ML FLUSH IV FLUSH SCH ×2 (09:00→22:24)
[2016-10-05] MEDS: SODIUM CHLORIDE 0.9% FLUSH 10 ML FLUSH IVF SCH (09:00)
[2016-10-05] MEDS: DOCUSATE SODIUM 100 MG/10 ML UDC NG SCH ×2 (09:01→22:26)
[2016-10-05] MEDS: APIXABAN 5 MG TABLET PO SCH ×2 (09:01→22:25)
[2016-10-05] MEDS: ASPIRIN EC 81 MG TABEC PO SCH (09:01)
[2016-10-05] MEDS: FAMOTIDINE 20 MG TAB NG SCH (09:02)
[2016-10-05] MEDS: CALCIUM ACETATE 667 MG CAP PO SCH ×3 (09:02→18:29)
[2016-10-05] MEDS: LINEZOLID 600 MG TAB PO SCH ×2 (09:02→22:25)
[2016-10-05] MEDS: LABETALOL HCL 100 MG TAB PO SCH ×3 (09:02→18:29)
[2016-10-05] MEDS: FUROSEMIDE 20 MG TAB PO SCH (09:02)
[2016-10-05] MEDS: CHLORHEXIDINE 0.12% (ORAL KIT) 15 ML CUP MT SCH ×2 (09:04→23:56)
[2016-10-05] MEDS: POLYETHYLENE GLYCOL 17 GM PKG NG SCH ×2 (09:07→22:26)
[2016-10-05] MEDS: LACTULOSE SYRUP 20 GM/30 ML CUP NG SCH ×2 (09:07→22:25)
--- NOTE | 2016-10-05 11:04 | RADRPT ---
EXAM DATE/TIME: 10/05/2016 10:43 [facility] COMPARISON: CHEST SINGLE AP, October 04, 2016, 12:52. CHEST SINGLE AP, October 05, 2016, 3:45. INDICATIONS : Subcutaneous air. RADIATION DOSE: 9.80 CTDIvol (mGy) MEDICAL HISTORY : Hypertension. Cardiovascular disease Carcinoma, colon. SURGICAL HISTORY : None. ENCOUNTER: Initial ACUITY: 1 day PAIN SCALE: Non-responsive LOCATION: chest TECHNIQUE: Volumetric scanning of the chest was performed. Using automated exposure control and adjustment of t he mA and/or kV according to patient size, radiation dose was kept as low as reasonably achievable to obtain optimal diagnostic quality images. DICOM format image data is available electronically for r eview and comparison. Follow-up recommendations for detected pulmonary nodules are based at a minimum on nodule size and pa tient risk factors according to Fleischner Society Guidelines. FINDINGS: Right internal jugular catheter is in place terminating in superior vena cava with an endotracheal tu be terminating above the thor and nasogastric tube pass into the midline into the stomach. There is evidence of prior median sternotomy cardiac surgery coronary calcifications in place and extensive a therosclerotic vascular calcifications in the aorta and great vessels. There is groundglass appearance infiltrate in both lung fie lds with some interspersed bullous changes small particularly towards the apex consistent with inters titial edema CHF protein pulmonary edema secondary to cardiac decompensation with cardiomegaly. There is subcutaneous air in the supraclavicular regions b ilaterally and upper anterior chest extending into the soft tissues of the neck. CONCLUSION: Prior median sternotomy cardiac surgery atherosclerotic cardiovascular disease with left ventricular cardiomegaly and evidence of interstitial alveolar edema in both lungs consistent with CHF. Support tubes in place with subcutaneous emphysema in the soft tissues of neck bilaterally and supraclavicular. There is no evidence of pneumothorax. Lele Escudero MD on October 05, 2016 at 10:58 Board Certified Radiologist. This report was verified electronically.
--- NOTE | 2016-10-05 11:20 | HHI.IDPN ---
Note Infectious Disease Note Patient on the vent and sedated. Afebrile. Unresponsive. Sputum culture showing nl jayna. Intubated late yesterday 10/03. PAST MEDICAL HISTORY 1. Coronary artery disease. 2. History of atrial fibrillation. 3. History of aortic aneurysm. 4. Bladder cancer treated with cystectomy. 5. Coronary artery bypass graft surgery. 6. Colon cancer history. 7. Peripheral vascular disease. 8. Hypertension. 9. History of transurethral resection of bladder tumor. 10.History of abdominal aortic aneurysm repair. ALLERGIES 1. SIMVASTATIN. 2. PRAVASTATIN. 3. ATORVASTATIN. ANTIBIOTICS 1. Zyvox. 2. Meropenem. OBJECTIVE: Vital Signs Date Time Temp Pulse Resp B/P (MAP) Pulse Ox O2 Delivery O2 Flow Rate FiO2 10/05/16 08:12 95 50 10/05/16 07:24 94 Mechanical Ventilator 40 10/05/16 07:00 92 10/05/16 04:50 93 40 10/05/16 04:00 97.6 81 23 111/64 (80) 93 10/05/16 04:00 40 10/05/16 03:00 72 10/05/16 00:55 95 40 10/05/16 00:00 40 10/05/16 00:00 97.2 72 25 125/71 (89) 96 10/04/16 23:00 72 10/04/16 21:26 94 40 10/04/16 20:00 97.2 70 22 119/70 (86) 94 10/04/16 20:00 40 10/04/16 19:00 88 10/04/16 19:00 94 Mechanical Ventilator 40 10/04/16 16:07 95 40 10/04/16 16:00 40 10/04/16 16:00 97.0 64 22 115/71 (86) 95 10/04/16 15:00 64 10/04/16 12:00 40 10/04/16 12:00 95.6 65 25 108/60 (76) 95 Laboratory Tests Test 10/04/16 04:40 10/05/16 03:45 White Blood Count 10.3 TH/MM3 11.8 TH/MM3 Red Blood Count 3.61 MIL/MM3 3.60 MIL/MM3 Hemoglobin 10.7 GM/DL 10.4 GM/DL Hematocrit 32.6 % 32.6 % Mean Corpuscular Volume 90.2 FL 90.3 FL Mean Corpuscular Hemoglobin 29.5 PG 28.9 PG Mean Corpuscular Hemoglobin Concent 32.7 % 32.0 % Red Cell Distribution Width 16.5 % 16.2 % Platelet Count 332 TH/MM3 345 TH/MM3 Mean Platelet Volume 7.9 FL 7.3 FL Neutrophils (%) (Auto) 91.0 % 90.5 % Lymphocytes (%) (Auto) 6.4 % 4.8 % Monocytes (%) (Auto) 2.1 % 4.5 % Eosinophils (%) (Auto) 0.0 % 0.0 % Basophils (%) (Auto) 0.5 % 0.2 % Neutrophils # (Auto) 9.3 TH/MM3 10.6 TH/MM3 Lymphocytes # (Auto) 0.7 TH/MM3 0.6 TH/MM3 Monocytes # (Auto) 0.2 TH/MM3 0.5 TH/MM3 Eosinophils # (Auto) 0.0 TH/MM3 0.0 TH/MM3 Basophils # (Auto) 0.1 TH/MM3 0.0 TH/MM3 CBC Comment DIFF FINAL DIFF FINAL Differential Comment Laboratory Tests Test 10/03/16 13:00 10/04/16 04:40 10/05/16 03:45 Potassium Level 4.2 MEQ/L 4.8 MEQ/L 4.9 MEQ/L Magnesium Level 2.1 MG/DL 2.5 MG/DL 2.6 MG/DL Blood Urea Nitrogen 76 MG/DL 83 MG/DL Creatinine 2.21 MG/DL 2.07 MG/DL Random Glucose 128 MG/DL 108 MG/DL Calcium Level 9.2 MG/DL 9.2 MG/DL Phosphorus Level 6.8 MG/DL 6.6 MG/DL Sodium Level 133 MEQ/L 136 MEQ/L Chloride Level 93 MEQ/L 94 MEQ/L Carbon Dioxide Level 30.2 MEQ/L 31.6 MEQ/L Anion Gap 10 MEQ/L 10 MEQ/L Estimat Glomerular Filtration Rate 29 ML/MIN 31 ML/MIN Total Protein 6.8 GM/DL Albumin 2.3 GM/DL Alkaline Phosphatase 66 U/L Aspartate Amino Transf (AST/SGOT) 19 U/L Alanine Aminotransferase (ALT/SGPT) 28 U/L Total Bilirubin 0.4 MG/DL Ammonia 26 MCMOL/L Lipase 202 U/L Microbiology Date/Time Source Procedure Growth Status 10/03/16 13:35 Blood Peripheral Aerobic Blood Culture - Preliminary NO GROWTH IN 2 DAYS Resulted 10/03/16 13:35 Blood Peripheral Anaerobic Blood Culture - Preliminary NO GROWTH IN 2 DAYS Resulted 10/03/16 13:30 Blood Peripheral Aerobic Blood Culture - Preliminary NO GROWTH IN 2 DAYS Resulted 10/03/16 13:30 Blood Peripheral Anaerobic Blood Culture - Preliminary NO GROWTH IN 2 DAYS Resulted 10/03/16 12:49 Nasal Washing Influenza Types A,B Antigen (JAME) - Final NEGATIVE FOR FLU A AND B ANTIGEN.... Complete 10/03/16 12:31 Sputum Endotracheal Gram Stain - Final Resulted 10/03/16 12:31 Sputum Endotracheal Sputum Culture - Preliminary RARE GROWTH NORMAL RESPIRATORY JAYNA ... Resulted 10/03/16 12:20 Urine Catheterized Urine Streptococcus pneumoniae Antigen (M - Final PRESUMPTIVE NEGATIVE FOR STREPTOCOCCU... Complete IMAGING: Chest X-Ray 10/05/16 0600 Signed Impressions: Service Date/Time: Wednesday, October 05, 2016 03:45 - CONCLUSION: 1. New soft tissue air in the visualized inferior neck and supraclavicular regions bilaterally. This is of uncertain etiology. No pneumothorax is visualized. 2. Bilateral interstitial and air space consolidation, slightly increased from yesterday's exam. Jarad Delgado MD Chest CT 10/05/16 0000 Signed Impressions: Service Date/Time: Wednesday, October 05, 2016 10:43 - CONCLUSION: Prior median sternotomy cardiac surgery atherosclerotic cardiovascular disease with left ventricular cardiomegaly and evidence of interstitial alveolar edema in both lungs consistent with CHF. Support tubes in place with subcutaneous emphysema in the soft tissues of neck bilaterally and supraclavicular. There is no evidence of pneumothorax. Lele Escudero MD Chest X-Ray 10/04/16 1240 Signed Impressions: Service Date/Time: Tuesday, October 04, 2016 12:52 - CONCLUSION: Central line good position without pneumothorax. Victor Hugo Kiser MD FACR Chest X-Ray 10/04/16 0600 Signed Impressions: Service Date/Time: Tuesday, October 04, 2016 03:57 - CONCLUSION: Mild improved aeration at the left lung base with continued diffuse bilateral interstitial and air space opacity. Jarad Delgado MD PHYSICAL EXAMINATION GENERAL: On the vent. HEENT: Sclera is non-icteric. Oropharynx mucosa moist. NECK: No swelling or adenopathy. LUNGS: Coarse rhonchi. HEART: Nl S1S2, No audible murmur, rub or gallop. ABDOMEN: Bowel sounds present. Soft. EXTREMITIES: No clubbing, no cyanosis. no edema. SKIN: No rash. NEUROLOGIC: Unable to assess. PSYCH: unable to assess on the vent. IMPRESSION 1. Acute respiratory failure. 3rd intubation. 2. Bilateral lung infiltrates, probable HCAP pneumonia. Pulmonary thinks amiodarone toxicity. 3. Leukocytosis. WBC improving. 4. Acute kidney disease. Receiving Hemodialysis. RECOMMENDATIONS Continue Meropenem. Continue PO Zyvox. Consider lung biopsy. Follow cultures. Monitor clinical status. Sae Nova MD Oct 05, 2016 11:20
--- NOTE | 2016-10-05 11:28 | RADRPT ---
EXAM DATE/TIME: 10/05/2016 10:41 [facility] COMPARISON: CHEST SINGLE AP, October 05, 2016, 3:45. INDICATIONS : Subcutaneous air. RADIATION DOSE: 21.90 CTDIvol (mGy) MEDICAL HISTORY : Cardiovascular disease. Hypertension. Carcinoma, colon. SURGICAL HISTORY : None. ENCOUNTER: Initial ACUITY: 1 day PAIN SCORE: Non-responsive LOCATION: neck TECHNIQUE: Volumetric scanning of the neck was performed. Using automated exposure control and adjustment of th e mA and/or kV according to patient size, radiation dose was kept as low as reasonably achievable to obtain optimal diagnostic quality images. DICOM format image data is available electronically for re view and comparison. FINDINGS: There is extensive subcutaneous emphysema present, mainly in the lateral and posterior neck deep soft tissues and in the retropharyngeal soft tissues. A nasogastric tube and endotracheal tube are present. The paranasal sinuses are clear. There is no evidence of neck mass or lymphadenopathy. CONCLUSION: Extensive subcutaneous emphysema. Jarad De Jesus MD on October 05, 2016 at 11:21 Board Certified Radiologist. This report was verified electronically.
--- NOTE | 2016-10-05 12:54 | HHI.PR ---
Subjective Remarks Intubated and on a ventilator , with FIo2 at 50 % CT chest shows subcutaneous air and patchy bilateral infiltrates.Could be Drug toxicity. and or pulmonary edema Poor output Sedated with Propofol. Objective Vital Signs Date Time Temp Pulse Resp B/P (MAP) Pulse Ox O2 Delivery O2 Flow Rate FiO2 10/05/16 11:00 92 10/05/16 08:12 95 50 10/05/16 08:00 40 10/05/16 08:00 98.9 92 23 120/66 (84) 96 10/05/16 07:24 94 Mechanical Ventilator 40 10/05/16 07:00 92 10/05/16 04:50 93 40 10/05/16 04:00 97.6 81 23 111/64 (80) 93 10/05/16 04:00 40 10/05/16 03:00 72 10/05/16 00:55 95 40 10/05/16 00:00 40 10/05/16 00:00 97.2 72 25 125/71 (89) 96 10/04/16 23:00 72 10/04/16 21:26 94 40 10/04/16 20:00 97.2 70 22 119/70 (86) 94 10/04/16 20:00 40 10/04/16 19:00 88 10/04/16 19:00 94 Mechanical Ventilator 40 10/04/16 16:07 95 40 10/04/16 16:00 40 10/04/16 16:00 97.0 64 22 115/71 (86) 95 10/04/16 15:00 64 I/O 10/04/16 10/04/16 10/04/16 10/05/16 10/05/16 10/05/16 07:00 15:00 23:00 07:00 15:00 23:00 Intake Total 557 ml 100 ml 644 ml 691 ml Output Total 875 ml 725 ml 800 ml Balance -318 ml 100 ml -81 ml -109 ml Intake Oral 193 ml 0 ml IV Total 300 ml 100 ml 451 ml 308 ml Tube Feeding 197 ml 323 ml Tube Irrigant 60 ml 60 ml Output Urine Total 875 ml 725 ml 800 ml Gastric Drainage Total 0 ml # Bowel Movements 0 0 Result Diagram: 10/05/16 0345 10/05/16 034 Objective Remarks GENERAL: This moderately overweight elderly man ,Intubated on the vent. HEENT: Head is normocephalic. Pupils are reactive. Tongue is moist. Throat clear NECK: No venous distention. Mild sub cut air. Trachea is midline. No thyroid enlargement. CHEST: Equal movements with diminished breath sounds at the bases with bibasilar crackles.Occ Wheeze heard. HEART: Sounds are irregular S1-S2. No murmur. ABDOMEN: Soft. Protuberant without masses. No organomegaly. EXTREMITIES: Decreased pulses. .Edema 1 + SKIN: warm.Sedated . Assessment and Plan Assessment and Plan IMPRESSION 1. Acute respiratory failure.Resolving 2. Fluid overload status with pulmonary edema. 3. Acute kidney failure.Resolving 4. History of cerebrovascular accident. 5. Bibasilar atelectasis with possible pneumonia. 6. History of colon cancer and bladder cancer. 7. Possible Hypersensitivity Pneumonia or Edema Plan : 1. 2. FIO2 at 40 %and wean to keep sat >92. 3. Nebs qid ,Duoneb. 4. Wean sedation 5. Antibiotics per ID 6. Lasix 20 mg IV daily 7. Will Ask Dr Zamora if Vats lung biopsy can be done. 8. CPAP trial in am . 9. Labs and Chest X ray in am 10. Cont solumedrol 40 mg Tid Jaime Encinas MD Oct 05, 2016 12:54
--- NOTE | 2016-10-05 13:14 | PD.CAR.PN ---
CVT Progress Note Subjective/Hospital Course: pt was OOB and stood on side of bed, did participate in exercises recommend continued PT/OT OOB to chair wean 02 as tolerated off amiodarone / concern for toxicity continue pulm toileting 10/01 remains on high flow 02 poor reserve, continue diuresis , antibiotics/ OOB as tolerated 10/02/16 continues on high flow O2 No c/o 10/04 pt reintubated yesterday , 2/2 resp distress now sedated on vent, on 40% fio2 renal function stable, non-oliguric 10/05 pt remains intubated 3rd time on 40% FI02 CT chest : groundglass appearance bilateral infiltrates bullous emphysema, interstitial edema / Dr Encinas spoke with Dr Zamora regarding possible open lung bx: RE ? vasculitis / PNA/ interstitial lung dz / amiodarone toxicity pt too high risk for thoracic surgery at this time , continue current treatment / eval for trach and peg soon CM eval for LTAC Objective: GENERAL: sedated on vent SKIN: Warm and dry. HEAD: Atraumatic. Normocephalic. EYES: Pupils equal and round. No scleral icterus. No injection or drainage. ENT: No nasal bleeding or discharge. Mucous membranes pink and moist. NECK: Trachea midline. No JVD. mild swelling left neck, faint crepitus CARDIOVASCULAR: irregular rate and rhythm, mild general edema RESPIRATORY: No accessory muscle use. Clear to auscultation. Breath sounds equal bilaterally. coarse breath sounds bilaterally GASTROINTESTINAL: Abdomen soft, non-tender, nondistended. Hepatic and splenic margins not palpable. tolerating tube feeds MUSCULOSKELETAL: Extremities without clubbing, cyanosis, or edema. No obvious deformities. NEUROLOGICAL: Awake and alert. No obvious cranial nerve deficits. Motor grossly within normal limits. Five out of 5 muscle strength in the arms and legs. Normal speech. PSYCHIATRIC: Appropriate mood and affect; insight and judgment normal. Vital Signs Date Time Temp Pulse Resp B/P (MAP) Pulse Ox O2 Delivery O2 Flow Rate FiO2 10/05/16 11:00 92 10/05/16 08:12 95 50 10/05/16 08:00 40 10/05/16 08:00 98.9 92 23 120/66 (84) 96 10/05/16 07:24 94 Mechanical Ventilator 40 10/05/16 07:00 92 10/05/16 04:50 93 40 10/05/16 04:00 97.6 81 23 111/64 (80) 93 10/05/16 04:00 40 10/05/16 03:00 72 10/05/16 00:55 95 40 10/05/16 00:00 40 10/05/16 00:00 97.2 72 25 125/71 (89) 96 10/04/16 23:00 72 10/04/16 21:26 94 40 10/04/16 20:00 97.2 70 22 119/70 (86) 94 10/04/16 20:00 40 10/04/16 19:00 88 10/04/16 19:00 94 Mechanical Ventilator 40 10/04/16 16:07 95 40 10/04/16 16:00 40 10/04/16 16:00 97.0 64 22 115/71 (86) 95 10/04/16 15:00 64 Labs: Laboratory Tests Test 10/05/16 03:45 White Blood Count 11.8 TH/MM3 (4.0-11.0) Red Blood Count 3.60 MIL/MM3 (4.50-5.90) Hemoglobin 10.4 GM/DL (13.0-17.0) Hematocrit 32.6 % (39.0-51.0) Mean Corpuscular Volume 90.3 FL (80.0-100.0) Mean Corpuscular Hemoglobin 28.9 PG (27.0-34.0) Mean Corpuscular Hemoglobin Concent 32.0 % (32.0-36.0) Red Cell Distribution Width 16.2 % (11.6-17.2) Platelet Count 345 TH/MM3 (150-450) Mean Platelet Volume 7.3 FL (7.0-11.0) Neutrophils (%) (Auto) 90.5 % (16.0-70.0) Lymphocytes (%) (Auto) 4.8 % (9.0-44.0) Monocytes (%) (Auto) 4.5 % (0.0-8.0) Eosinophils (%) (Auto) 0.0 % (0.0-4.0) Basophils (%) (Auto) 0.2 % (0.0-2.0) Neutrophils # (Auto) 10.6 TH/MM3 (1.8-7.7) Lymphocytes # (Auto) 0.6 TH/MM3 (1.0-4.8) Monocytes # (Auto) 0.5 TH/MM3 (0-0.9) Eosinophils # (Auto) 0.0 TH/MM3 (0-0.4) Basophils # (Auto) 0.0 TH/MM3 (0-0.2) CBC Comment DIFF FINAL Differential Comment Blood Urea Nitrogen 83 MG/DL (7-18) Creatinine 2.07 MG/DL (0.60-1.30) Random Glucose 108 MG/DL (74-106) Total Protein 6.8 GM/DL (6.4-8.2) Albumin 2.3 GM/DL (3.4-5.0) Calcium Level 9.2 MG/DL (8.5-10.1) Phosphorus Level 6.6 MG/DL (2.5-4.9) Magnesium Level 2.6 MG/DL (1.5-2.5) Alkaline Phosphatase 66 U/L (45-117) Aspartate Amino Transf (AST/SGOT) 19 U/L (15-37) Alanine Aminotransferase (ALT/SGPT) 28 U/L (12-78) Total Bilirubin 0.4 MG/DL (0.2-1.0) Sodium Level 136 MEQ/L (136-145) Potassium Level 4.9 MEQ/L (3.5-5.1) Chloride Level 94 MEQ/L (98-107) Carbon Dioxide Level 31.6 MEQ/L (21.0-32.0) Anion Gap 10 MEQ/L (5-15) Estimat Glomerular Filtration Rate 31 ML/MIN (>89) Ammonia 26 MCMOL/L (11-32) Lipase 202 U/L (73-393) Result Diagram: 10/05/16 0345 10/05/16 0345 (1) History of CVA (cerebrovascular accident) (2) CKD (chronic kidney disease) stage 3, GFR 30-59 ml/min Plan: stable indices (3) S/P CABG x 3 (4) Atrial fibrillation Plan: rate controlled, on eliquis (5) Acute hypoxemic respiratory failure Plan: reintubated on vent, CCM following may need trach soon continue supportive care (6) Hypertension (7) Thoracic aortic aneurysm without rupture Casandra Barton Oct 05, 2016 13:14
--- NOTE | 2016-10-05 14:08 | PD.CARD.PN ---
Subjective Subjective Remarks Intubated, on the vent Objective Medications Current Medications Medications (Trade) Dose Ordered Sig/Awilda Route Start Time Stop Time Status Last Admin (NS Flush) 2 ml UNSCH PRN IV FLUSH 09/09/16 00:45 (NS Flush) 2 ml BID IV FLUSH 09/09/16 09:00 10/05/16 09:00 (Narcan Inj) 0.4 mg UNSCH PRN IV 09/09/16 00:45 (Pill Splitter) 1 ea UNSCH PRN OTHER 09/09/16 14:00 (Eliquis) 5 mg BID PO 09/10/16 09:00 10/05/16 09:01 (Catapres) 0.1 mg Q6H PRN PO 09/11/16 14:30 09/19/16 23:02 (Lopressor Inj) 5 mg Q2HR PRN IV PUSH 09/16/16 14:00 09/26/16 05:00 (Apresoline Inj) 10 mg Q6HR PRN IV PUSH 09/16/16 12:45 10/03/16 06:48 (Racepinephrine 2.25% Neb) 0.5 ml Q1HR NEB PRN NEB 09/17/16 17:15 09/17/16 18:02 (Milk Of Magnesia Liq) 30 ml Q12H PRN PO 09/19/16 13:30 09/19/16 13:30 (Dulcolax Supp) 10 mg DAILY PRN RECTAL 09/19/16 13:30 (Albuterol Neb) 2.5 mg Q2HR NEB PRN NEB 09/21/16 12:00 10/02/16 21:16 (Phoslo) 667 mg TID PO 09/21/16 18:00 10/05/16 09:02 (Peridex 0.12% Liq) 15 ml BID@08,20 MT 09/22/16 20:00 10/05/16 09:04 (Zyvox) 600 mg Q12HR PO 09/27/16 21:00 10/05/16 09:02 Meropenem 500 mg/ Sodium Chloride 100 ml @ 200 mls/hr Q12H IV 09/28/16 12:00 10/05/16 00:24 (Ecotrin Ec) 81 mg DAILY PO 09/30/16 09:00 10/05/16 09:01 (Trandate) 100 mg TID PO 09/30/16 13:00 10/05/16 09:02 (NovoLOG SUPPLEMENTAL SCALE) 1 Q6HR SQ 10/01/16 13:15 10/04/16 11:21 (D50w (Vial) Inj) 50 ml UNSCH PRN IV PUSH 10/01/16 13:15 (Glucagon Inj) 1 mg UNSCH PRN OTHER 10/01/16 13:15 (Singulair) 10 mg HS PO 10/02/16 21:00 10/04/16 19:58 (Lasix Inj) 40 mg UNSCH IV 10/02/16 09:30 10/02/16 22:59 (Lasix) 20 mg DAILY PO 10/03/16 09:00 10/05/16 09:02 (Tears Naturale Opth Soln) 1 drop Q8HR EACH EYE 10/03/16 14:00 10/05/16 04:24 Propofol 100 ml @ 2.646 mls/ hr Q24H PRN IV 10/03/16 11:21 10/05/16 10:19 (SoluMEDROL INJ) 40 mg Q8HR IV PUSH 10/03/16 14:00 10/05/16 05:14 Midazolam HCl 100 ml @ 2 mls/hr TITRATE PRN IV 10/03/16 22:00 10/04/16 17:18 (Pepcid) 20 mg DAILY NG 10/04/16 09:00 10/05/16 09:02 (Colace Liq) 100 mg Q12HR NG 10/04/16 09:00 10/05/16 09:01 (Senna Liq) 8.8 mg BID NG 10/04/16 09:00 10/05/16 09:00 (Duoneb Neb) 1 ampule Q6HR NEB NEB 10/04/16 10:00 10/05/16 09:07 (NS Flush) DAILY IVF 10/04/16 12:45 10/05/16 09:00 (NS Flush) UNSCH PRN IVF 10/04/16 12:45 (Lactulose Liq) 30 ml BID NG 10/05/16 09:00 10/05/16 09:07 (Miralax) 17 gm BID NG 10/05/16 09:00 10/05/16 09:07 Vital Signs / I&O Vital Signs Date Time Temp Pulse Resp B/P (MAP) Pulse Ox O2 Delivery O2 Flow Rate FiO2 10/05/16 11:00 92 10/05/16 08:12 95 50 10/05/16 08:00 40 10/05/16 08:00 98.9 92 23 120/66 (84) 96 10/05/16 07:24 94 Mechanical Ventilator 40 10/05/16 07:00 92 10/05/16 04:50 93 40 10/05/16 04:00 97.6 81 23 111/64 (80) 93 10/05/16 04:00 40 10/05/16 03:00 72 10/05/16 00:55 95 40 10/05/16 00:00 40 10/05/16 00:00 97.2 72 25 125/71 (89) 96 10/04/16 23:00 72 10/04/16 21:26 94 40 10/04/16 20:00 97.2 70 22 119/70 (86) 94 10/04/16 20:00 40 10/04/16 19:00 88 10/04/16 19:00 94 Mechanical Ventilator 40 10/04/16 16:07 95 40 10/04/16 16:00 40 10/04/16 16:00 97.0 64 22 115/71 (86) 95 10/04/16 15:00 64 I/O 10/04/16 10/04/16 10/04/16 10/05/16 10/05/16 10/05/16 07:00 15:00 23:00 07:00 15:00 23:00 Intake Total 557 ml 100 ml 644 ml 691 ml Output Total 875 ml 725 ml 800 ml Balance -318 ml 100 ml -81 ml -109 ml Intake Oral 193 ml 0 ml IV Total 300 ml 100 ml 451 ml 308 ml Tube Feeding 197 ml 323 ml Tube Irrigant 60 ml 60 ml Output Urine Total 875 ml 725 ml 800 ml Gastric Drainage Total 0 ml # Bowel Movements 0 0 Physical Exam GENERAL: Intubated, sedated SKIN: Warm and dry. HEAD: Normocephalic. EYES: No scleral icterus. No injection or drainage. NECK: Supple, trachea midline. No JVD or lymphadenopathy. CARDIOVASCULAR: Regular rate and rhythm without murmurs, gallops, or rubs. RESPIRATORY: Breath sounds equal bilaterally. No accessory muscle use. GASTROINTESTINAL: Abdomen soft, non-tender, nondistended. MUSCULOSKELETAL: No cyanosis, or edema. Laboratory Laboratory Tests Test 10/05/16 03:45 White Blood Count 11.8 TH/MM3 Red Blood Count 3.60 MIL/MM3 Hemoglobin 10.4 GM/DL Hematocrit 32.6 % Mean Corpuscular Volume 90.3 FL Mean Corpuscular Hemoglobin 28.9 PG Mean Corpuscular Hemoglobin Concent 32.0 % Red Cell Distribution Width 16.2 % Platelet Count 345 TH/MM3 Mean Platelet Volume 7.3 FL Neutrophils (%) (Auto) 90.5 % Lymphocytes (%) (Auto) 4.8 % Monocytes (%) (Auto) 4.5 % Eosinophils (%) (Auto) 0.0 % Basophils (%) (Auto) 0.2 % Neutrophils # (Auto) 10.6 TH/MM3 Lymphocytes # (Auto) 0.6 TH/MM3 Monocytes # (Auto) 0.5 TH/MM3 Eosinophils # (Auto) 0.0 TH/MM3 Basophils # (Auto) 0.0 TH/MM3 CBC Comment DIFF FINAL Differential Comment Blood Urea Nitrogen 83 MG/DL Creatinine 2.07 MG/DL Random Glucose 108 MG/DL Total Protein 6.8 GM/DL Albumin 2.3 GM/DL Calcium Level 9.2 MG/DL Phosphorus Level 6.6 MG/DL Magnesium Level 2.6 MG/DL Alkaline Phosphatase 66 U/L Aspartate Amino Transf (AST/SGOT) 19 U/L Alanine Aminotransferase (ALT/SGPT) 28 U/L Total Bilirubin 0.4 MG/DL Sodium Level 136 MEQ/L Potassium Level 4.9 MEQ/L Chloride Level 94 MEQ/L Carbon Dioxide Level 31.6 MEQ/L Anion Gap 10 MEQ/L Estimat Glomerular Filtration Rate 31 ML/MIN Ammonia 26 MCMOL/L Lipase 202 U/L Imaging Last Impressions Chest X-Ray 10/05/16 0600 Signed Impressions: Service Date/Time: Wednesday, October 05, 2016 03:45 - CONCLUSION: 1. New soft tissue air in the visualized inferior neck and supraclavicular regions bilaterally. This is of uncertain etiology. No pneumothorax is visualized. 2. Bilateral interstitial and air space consolidation, slightly increased from yesterday's exam. Jarad Delgado MD Neck CT 10/05/16 0000 Signed Impressions: Service Date/Time: Wednesday, October 05, 2016 10:41 - CONCLUSION: Extensive subcutaneous emphysema. Jarad De Jesus MD Chest CT 10/05/16 0000 Signed Impressions: Service Date/Time: Wednesday, October 05, 2016 10:43 - CONCLUSION: Prior median sternotomy cardiac surgery atherosclerotic cardiovascular disease with left ventricular cardiomegaly and evidence of interstitial alveolar edema in both lungs consistent with CHF. Support tubes in place with subcutaneous emphysema in the soft tissues of neck bilaterally and supraclavicular. There is no evidence of pneumothorax. Lele Escudero MD Head Magnetic Resonance Angiography 09/10/16 1028 Signed Impressions: Service Date/Time: Saturday, September 10, 2016 10:57 - CONCLUSION: 1. Unremarkable MRA examination without evidence for large vessel occlusion, aneurysm, or vascular malformation. Richardson Haney MD Brain MRI 09/10/16 1028 Signed Impressions: Service Date/Time: Saturday, September 10, 2016 10:57 - CONCLUSION: 1. Findings most consistent with new embolic infarcts involving both the anterior and posterior circulation. Richardson Haney MD Carotid Artery Ultrasound 09/09/16 1028 Signed Impressions: Service Date/Time: September 10:43 - CONCLUSION: 1. Moderate visible plaque without hemodynamically significant stenosis identified. No significant change from August 25. Amado Crain MD Renal Ultrasound 09/09/16 0000 Signed Impressions: Service Date/Time: September 15:41 - CONCLUSION: 1. Cortical atrophy with small bilateral renal cysts. No hydronephrosis. Amado Crain MD Head CT 09/08/16 2251 Signed Impressions: Service Date/Time: Thursday, September 08, 2016 23:41 - CONCLUSION: Stable noncontrast CT with no evidence of hemorrhage or acute infarction. Atrophy and chronic small vessel splenic changes remain. Sanya Cavazos MD Assessment and Plan Problem List: (1) History of CVA (cerebrovascular accident) ICD Codes: Z86.73 - Personal history of transient ischemic attack (TIA), and cerebral infarction without residual deficits Status: Acute (2) CKD (chronic kidney disease) stage 3, GFR 30-59 ml/min ICD Codes: N18.3 - Chronic kidney disease, stage 3 (moderate) Status: Acute (3) S/P CABG x 3 ICD Codes: Z95.1 - Presence of aortocoronary bypass graft Status: Acute (4) Atrial fibrillation ICD Codes: I48.91 - Unspecified atrial fibrillation (5) Acute hypoxemic respiratory failure ICD Codes: J96.01 - Acute respiratory failure with hypoxia Status: Acute (6) Hypertension ICD Codes: I10 - Essential (primary) hypertension Status: Acute (7) Thoracic aortic aneurysm without rupture ICD Codes: I71.2 - Thoracic aortic aneurysm, without rupture Status: Acute Assessment and Plan Intubated yesterday. High O2 requirements, not ready for weaning and extubation. Off amio due to possible pulmonary toxicity. Continue steroids. Monitor renal fx. Rhythm stable. Continue ICU care. Michael Tompkins MD Oct 05, 2016 14:08
--- NOTE | 2016-10-05 17:02 | HHI.HCPN ---
Palliative care called and spoke with patient's daughter Viola at length regarding the patient's current clinical status, trajectory of decline, and likely upcoming decision to proceed with a trach and PEG. Patient's daughter Viola expressed that her mother does not understand the severity of her father's condition and she requires extra explanation regarding medical treatment as well as concrete examples such as videos detailing what i.e. intubation actually entails. Viola also states she would like time to process upcoming medical decisions herself so that she can provide support and be present during these type of discussions for her mother. Palliative care will continue to follow this patient throughout his hospitalization to assist with symptom management and clarification of medical treatment goals. Ronit Blackwood Oct 05, 2016 17:02
[2016-10-05] MEDS: MIDAZOLAM 100 MG/NS 100 ML DRIP Premix IV PRN (18:28)
--- NOTE | 2016-10-05 18:55 | RADRPT ---
EXAM DATE/TIME: 10/05/2016 18:11 [facility] COMPARISON: CHEST SINGLE AP, October 05, 2016, 3:45. INDICATIONS : Shortness of breath. Follow up subcutaneous air. MEDICAL HISTORY : Myocardial infarction. Cardiovascular disease. Aneurysm, abdominal. SURGICAL HISTORY : CABG. Abdominal aortic aneurysm repair. cornary artery stent. ENCOUNTER: Subsequent ACUITY: 1 month PAIN SCORE: 0/10 LOCATION: Bilateral chest FINDINGS: A single view of the chest demonstrates bilateral interstitial pulmonary infiltrates which are about the same or slightly increased compared to the prior exam. The support devices remain in place. There is no pneumothorax. The heart size is stable. There is subcutaneous emphysema in the soft tissues at the base of the neck which appear to be improved compared to the prior study.. CONCLUSION: 1. Improving bilateral subcutaneous emphysema. 2. There continues to be bilateral interstitial pulmonary infiltrates which are about the same or mil dly increased compared to the prior study. Kodi Ashraf MD on October 05, 2016 at 18:52 Board Certified Radiologist. This report was verified electronically.
[2016-10-05] MEDS: MONTELUKAST SODIUM 10 MG TAB PO SCH (22:26)
[2016-10-06] VITALS (13 sets, daily range): BP systolic 113–135; BP diastolic 52–78; PULSE 70–79; RESP 17–19; TEMP 97.5–98.9; O2SAT 92–98
[2016-10-06] MEDS: PROPOFOL 1000 MG/100 ML INJ 100 ML IV PRN ×5 (03:34→18:15)
[2016-10-06] MEDS: RESP: ALBUTEROL 2.5 MG/IPRATROPIUM 0.5 MG NEB (SCH) NEB ×4 (04:34→22:02)
[2016-10-06 04:57] LABS: AUTOMATED NEUTROPHIL # 10.3 TH/MM3 (1.8-7.7); BASOPHIL % 0.2 % (0.0-2.0); HEMATOCRIT 30.7 % (39.0-51.0); HEMO FLAGS DIFF FINAL; LYMPHOCYTE # 0.4 TH/MM3 (1.0-4.8); MEAN CELL VOLUME 92.7 FL (80.0-100.0); MEAN CORPUSCULAR HEMOGLOBIN 29.6 PG (27.0-34.0); MONO % 3.8 % (0.0-8.0); PLATELET COUNT 302 TH/MM3 (150-450); RED BLOOD COUNT 3.31 MIL/MM3 (4.50-5.90); RED CELL DISTRIBUTION WIDTH 16.1 % (11.6-17.2); WHITE BLOOD COUNT 11.1 TH/MM3 (4.0-11.0)
--- NOTE | 2016-10-06 05:27 | RADRPT ---
EXAM DATE/TIME: 10/06/2016 04:47 [facility] COMPARISON: CHEST SINGLE AP, October 05, 2016, 18:11. INDICATIONS : Short of breath. MEDICAL HISTORY : Myocardial infarction. Cardiovascular disease. Aneurysm, abdominal. SURGICAL HISTORY : CABG. Abdominal aortic aneurysm repair. cornary artery stent. ENCOUNTER: Subsequent ACUITY: 1 month PAIN SCORE: 0/10 LOCATION: Bilateral chest FINDINGS: Portable AP view of the chest demonstrates enlargement of the cardiac silhouette with a tortuous desc ending thoracic aorta in this patient post median sternotomy. Patient is rotated and underinflated an d there are interstitial and airspace opacities bilaterally, improved from the prior study. No pleura l effusion or pneumothorax is visualized. ETT, right IJ line, and nasogastric tube remain present. CONCLUSION: Improvement in the interstitial and airspace opacities bilaterally. Jarad Delgado MD on October 06, 2016 at 5:25 Board Certified Radiologist. This report was verified electronically.
[2016-10-06 05:29] LABS: ALKALINE PHOSPHATASE 79 U/L (45-117); ALT (GPT) 26 U/L (12-78); ANION GAP 7 MEQ/L (5-15); AST (GOT) 17 U/L (15-37); BICARBONATE 31.8 MEQ/L (21.0-32.0); BLOOD UREA NITROGEN 104 MG/DL (7-18); CHLORIDE 97 MEQ/L (98-107); GLOMERULAR FILTRATION RATE 31 ML/MIN (>89); MAGNESIUM 2.6 MG/DL (1.5-2.5); POTASSIUM 4.8 MEQ/L (3.5-5.1); SODIUM (NA) 136 MEQ/L (136-145); TOTAL BILIRUBIN ADULT 0.3 MG/DL (0.2-1.0)
[2016-10-06] MEDS: methylPREDNISolone SOD SUCC 40 MG/1 ML VIAL IV PUSH SCH ×3 (05:58→21:46)
[2016-10-06] MEDS: INSULIN ASPART SUPPLEMENTAL SCALE SQ SCH ×3 (06:00→18:00)
[2016-10-06] MEDS: ARTIFICIAL TEARS OPTH SOLN 15 ML BTL EACH EYE SCH ×3 (06:01→21:49)
[2016-10-06] MEDS: SODIUM CHLORIDE 0.9% FLUSH 10 ML FLUSH IV FLUSH SCH ×2 (07:58→21:50)
[2016-10-06] MEDS: CHLORHEXIDINE 0.12% (ORAL KIT) 15 ML CUP MT SCH ×2 (07:59→21:49)
[2016-10-06] MEDS: LACTULOSE SYRUP 20 GM/30 ML CUP NG SCH ×2 (08:06→21:00)
[2016-10-06] MEDS: DOCUSATE SODIUM 100 MG/10 ML UDC NG SCH ×2 (08:07→21:00)
[2016-10-06] MEDS: ASPIRIN EC 81 MG TABEC PO SCH (08:07)
[2016-10-06] MEDS: SENNOSIDES SYRUP 8.8 MG/5 ML CUP NG SCH ×2 (08:07→21:00)
[2016-10-06] MEDS: LABETALOL HCL 100 MG TAB PO SCH ×3 (08:07→18:15)
[2016-10-06] MEDS: CALCIUM ACETATE 667 MG CAP PO SCH ×3 (08:07→18:15)
[2016-10-06] MEDS: APIXABAN 5 MG TABLET PO SCH ×2 (08:07→21:46)
[2016-10-06] MEDS: FUROSEMIDE 20 MG TAB PO SCH (08:07)
[2016-10-06] MEDS: LINEZOLID 600 MG TAB PO SCH ×2 (08:08→21:45)
[2016-10-06] MEDS: FAMOTIDINE 20 MG TAB NG SCH (08:08)
[2016-10-06] MEDS: POLYETHYLENE GLYCOL 17 GM PKG NG SCH ×2 (08:08→21:00)
[2016-10-06] MEDS: SODIUM CHLORIDE 0.9% FLUSH 10 ML FLUSH IVF SCH (08:09)
--- NOTE | 2016-10-06 08:20 | HHI.CCPN ---
Subjective Remarks/Hospital Course 75 y/o man now about 4 weeks following CABG complicated by CVA. Presented back 08/28 with new onset right arm weakness. Hospital course has been complicated by CKD and fluid overload. We have attempted BiPAP for several hours but he remains in distress and although oxygenation is acceptable work of breathing is excessive. Worrisome increasing metabolic acidosis. 09/17: Gas exchange much improved. BNP 1681, ScVO2 71%. It appears that cardiac output is more than adequate for peripheral needs and the primary pathology is renal failure and fluid overload. If we can manage volume I can probably get him extubated. 09/18: Diffuse crackles. Needs to be diuresed today. Tolerating extubation but at risk for hypoxemic failure again. 09/20 - Re consulted due to worsening hypoxia. Currently on nonrebreather mask. Chest x-ray shows worsening consolidation right lobe creatinine slightly improved over. Family request transfer to [facility] however refused. We'll attempt to decipher status currently unknown. 09/21: Remains on nonrebreather mask. Saturations between 89-97%. Chest x-ray unchanged. Not tachypnea. Not confused. 09/22: Radiographic studies show diffuse interstitial process with skip areas - more indicative of infectious/inflammatory process. Sats 85% with labored pattern. Required intubation for deteriorating respiratory status. 09/23: Gas exchange improving. Pulmonary infiltrates remain very concerning - if most recent sputum is benign I would not be opposed to steroids. 09/24: Extubated today. On 3 L nasal cannula. Passed swallow evaluation. Appropriate interactive status post extubation. 09/29: Critical care reconsult requested by Dr. Meza for respiratory failure. Patient reportedly was on BiPAP this morning. He was given additional diuretic earlier as he was short of breath. With this he seems to have improved somewhat and has been on a nonrebreather facemask for more than a few hours. He states that he is breathing much better. Patient being adamant about not using BiPAP. I had a detailed conversation about the importance of using BiPAP especially at night in view of his history of sleep apnea. Patient did not appear to be in acute distress though he was requiring a nonrebreather facemask at the time of my evaluation. No urgent need for BiPAP or intubation at this time. In fact patient is stating that he is breathing much better than this morning. 09/30: Remains on nonrebreather facemask. Refused BiPAP at night. States that he is breathing better today than yesterday. 10/01: 02 30 L/m 100% FiO2. O2 sats borderline. Episodes of confusion. When I evaluated the patient he was sitting up in bed and was able to converse. Not using accessory muscles of respirations currently. 10/02: The patient is alert and oriented currently has been weaned down to high flow nasal cannula with an FiO2 of 65%, maintaining O2 saturation to 95%. Patient is appropriately conversant no episodes of confusion noted. 10/03: Yesterday, the patient received 2 units of packed red blood cells with Furosemide dosing in between transfusion of units, with diuresis of approximately 2900 cc. Last night, the patient was noted to have respiratory decompensation, continued refusal to utilize BiPAP during the night. FiO2 requirements increased to 100% this a.m., on high flow nasal cannula, with noted accessory muscle use and inability to speak in complete sentences secondary to dyspnea. The patient received additional dose of Lasix this a.m. , chest x-ray appeared to be worsened this a.m. .Patient subsequently became hypoxic requiring emergent intubation this a.m.., O2 sat saturation 80s on 100 % FiO2. 10/04: Intubated yesterday due to general and hypoxia. Diuresed with 80 mg furosemide 1. Tmax 99.8. Currently 97.8. Tube feeds initiated. No bowel movement. 10/05: Afebrile. Subcutaneous air in neck bilaterally on chest x-ray today. No obvious pneumothorax. No pneumothorax on chest x-ray yesterday post central line placement. Tolerating tube feeding. No bowel movement. Subjective: 10/06: Currently resting in bed. Subcutaneous air neck much improved. X-ray improved. FiO2 down to 40%. Tolerating tube feeding. One bowel movement. Objective Vital Signs Date Time Temp Pulse Resp B/P (MAP) Pulse Ox O2 Delivery O2 Flow Rate FiO2 10/06/16 07:46 95 40 10/06/16 03:00 98.9 77 19 115/52 (73) 10/05/16 19:00 Mechanical Ventilator 10/02/16 21:45 30.00 Intake and Output 10/06/16 10/06/16 10/07/16 08:00 16:00 00:00 Intake Total 830 ml Output Total 900 ml Balance -70 ml Result Diagram: 10/06/16 0443 10/06/16 0443 Other Results Microbiology Date/Time Source Procedure Growth Status 10/03/16 13:35 Blood Peripheral Aerobic Blood Culture - Preliminary NO GROWTH IN 2 DAYS Resulted 10/03/16 13:35 Blood Peripheral Anaerobic Blood Culture - Preliminary NO GROWTH IN 2 DAYS Resulted 09/12/16 01:00 Stool Stool Stool Occult Blood (JAME) - Final HEMOCCULT NEGATIVE Complete 10/03/16 12:49 Nasal Washing Influenza Types A,B Antigen (JAME) - Final NEGATIVE FOR FLU A AND B ANTIGEN.... Complete 10/03/16 12:20 Urine Catheterized Urine Streptococcus pneumoniae Antigen (M - Final PRESUMPTIVE NEGATIVE FOR STREPTOCOCCU... Complete Imaging Last Impressions Chest X-Ray 10/06/16 0600 Signed Impressions: Service Date/Time: Thursday, October 06, 2016 04:47 - CONCLUSION: Improvement in the interstitial and airspace opacities bilaterally. Jarad Delgado MD Neck CT 10/05/16 0000 Signed Impressions: Service Date/Time: Wednesday, October 05, 2016 10:41 - CONCLUSION: Extensive subcutaneous emphysema. Jarad De Jesus MD Chest CT 10/05/16 0000 Signed Impressions: Service Date/Time: Wednesday, October 05, 2016 10:43 - CONCLUSION: Prior median sternotomy cardiac surgery atherosclerotic cardiovascular disease with left ventricular cardiomegaly and evidence of interstitial alveolar edema in both lungs consistent with CHF. Support tubes in place with subcutaneous emphysema in the soft tissues of neck bilaterally and supraclavicular. There is no evidence of pneumothorax. Lele Escudero MD Head Magnetic Resonance Angiography 09/10/16 1028 Signed Impressions: Service Date/Time: Saturday, September 10, 2016 10:57 - CONCLUSION: 1. Unremarkable MRA examination without evidence for large vessel occlusion, aneurysm, or vascular malformation. Richardson Haney MD Brain MRI 09/10/16 1028 Signed Impressions: Service Date/Time: Saturday, September 10, 2016 10:57 - CONCLUSION: 1. Findings most consistent with new embolic infarcts involving both the anterior and posterior circulation. Richardson Haney MD Carotid Artery Ultrasound 09/09/16 1028 Signed Impressions: Service Date/Time: September 10:43 - CONCLUSION: 1. Moderate visible plaque without hemodynamically significant stenosis identified. No significant change from August 25. Amado Crain MD Renal Ultrasound 09/09/16 0000 Signed Impressions: Service Date/Time: September 15:41 - CONCLUSION: 1. Cortical atrophy with small bilateral renal cysts. No hydronephrosis. Amado Crain MD Head CT 09/08/16 2251 Signed Impressions: Service Date/Time: Thursday, September 08, 2016 23:41 - CONCLUSION: Stable noncontrast CT with no evidence of hemorrhage or acute infarction. Atrophy and chronic small vessel splenic changes remain. Sanya Cavazos MD Objective Remarks GENERAL: 75-year-old male currently orotracheally intubated critically ill SKIN: Warm and dry. We'll perfused HEAD: Atraumatic. Normocephalic. NECK: Trachea midline. No thyromegaly. Positive bilateral crepitus. Right IJ is clean dry and intact. CARDIOVASCULAR: IRR. S1, S2 no S4. Without murmur RESPIRATORY: Air entry decreased bilaterally at bases, scattered rhonchi, no wheezing. GASTROINTESTINAL: Abdomen soft, non-tender, nondistended. No guarding. BS active. MUSCULOSKELETAL: Extremities with trace to 1+ B/L lower extremity edema. No obvious deformities. NEUROLOGICAL: Positive corneal reflex. Positive gag. Withdraws to noxious stimulation all 4 extremities. Procedures 10/03- intubation Date of Insertion: Oct 03, 2016 Vascular Central Line Catheter: Yes Date of Insertion: Oct 04, 2016 Line: Central Venous Catheter Side: Right Location: Internal, Jugular A/P Assessment and Plan Neuro/Psych: Left occipital, bilateral frontal parietal cerebellar CVA subacute Chronic headaches Chronic benzodiazepine use Chronic oxycodone use MRI 09/10 brain revealed left occipital, bilateral frontal parietal and cerebellar CVA likely ALFIE/PIANO MAKER distribution Followed by Dr. Jeffries/neurology. 10/[address] Prajapati in view of episodes of confusion. Nonfocal. Currently on alprazolam 0.25 mg every 6 hours PRN Anxiety Currently on propofol at 40 mg/kg minutes and midazolam @ 2.5 mg an hour for sedation while intubated Goal of RA SS -2 Daily sedation vacation CV: Coronary disease status post CABG ASCVD Carotid stenosis TAAA Hypertension dyslipidemia History atrial fibrillation status post ablation 2011 Followed by cardiology. Currently off atorvastatin 40 mg daily/home medication for dyslipidemia On PO Apixaban 5 mg twice a day per cardiology. Off amiodarone for suspected pulmonary toxicity Echocardiogram revealed EF 70%. OHS septal motion./Paradoxical, CARA 50-60 mmHg Currently labetalol 100 mg 3 times a day for hypertension. As needed metoprolol for tachycardia Continue aspirin 81 mg by mouth daily Resp: Acute hypoxemic respiratory failure Subcutaneous air neck ACV 15/550//40 Ventilator bundle Albuterol/ipratropium every 6 hours with albuterol aerosols as indicated 3rd intubation. Last 10/03 Chest x-ray 10/05 - bilateral subcutaneous every neck. No obvious pneumothorax. CT chest pending rule out pneumothorax Possible barotrauma from mechanical ventilation. PEEP decreased from 10-5. 10/03 switched Methylprednisolone 40 mg every 8hrs- ( Prednisone 10mg q day discontinued) on prednisone due to pantoprazole-induced kidney injury per nephrology Pulmonary following Dr. Encinas Continue antibiotics per ID Dr. Nova GI: Currently on Suplena goal 55 cc an hour per dietary recommendations On famotidine 20 mg by mouth daily for GI prophylaxis Docusate sodium 100 mg twice a day, senna liquid 8.6 mg twice a day and polyethylene glycol 3350 17 g twice daily lactulose 30 cc 4 times a day for bowel regimen History of hydroureter Renal ultrasound Revealed no hydronephrosis Reinsert choi- intubated and receiving diuretics- Strict I&O's Endo: Sliding scale insulin if indicated Renal: Acute on chronic kidney injury Continue furosemide 20 mg by mouth daily Nephrology follow-up.. 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 Slowly wean steroids due to this issue. Dr. Cerda following Heme: History of colon cancer status post partial colectomy History of bladder cancer normocytic anemia Monitor CBC daily. Follow trends. Noted elevated lambda and kappa Chains/ESR likely secondary underlying acute kidney injury. Evaluated by Dr. Mccollum/hematology ID: Likely hospital-acquired pneumonia On meropenem/levofloxacin/linezolid since 09/27 per ID. Pertinent cultures 10/03-repeat blood, urine Legionella and pneumococcal antigens and sputum cultures follow-up results 10/03-influenza negative 09/28 - blood cultures 2 - no growth 09/22 - sputum - no growth 09/16 - blood cultures 2 - no growth FEN: Hyponatremia Hyperphosphatemia Hyper-magnesium Monitor and replete electrolytes Continue calcium acetate 667 mg 3 times a day MSK: PT evaluate and treat Prophylaxis - GI -famotidine - DVT - SCD/apixaban Access - Right subclavian CVL placed 09/16 - 10/04 - Right IJ CVL 10/04 present Critical Care: The total critical care time was 30 minutes. Time to perform other separately billable procedures was not included in the critical care time. Zay Romero MD Oct 06, 2016 08:20
--- NOTE | 2016-10-06 11:42 | PD.CAR.PN ---
CVT Progress Note Subjective/Hospital Course: 10/01 remains on high flow 02 poor reserve, continue diuresis , antibiotics/ OOB as tolerated 10/02/16 continues on high flow O2 No c/o 10/04 pt reintubated yesterday , 2/2 resp distress now sedated on vent, on 40% fio2 renal function stable, non-oliguric 10/05 pt remains intubated 3rd time on 40% FI02 CT chest : groundglass appearance bilateral infiltrates bullous emphysema, interstitial edema / Dr Encinas spoke with Dr Zamora regarding possible open lung bx: RE ? vasculitis / PNA/ interstitial lung dz / amiodarone toxicity pt too high risk for thoracic surgery at this time , continue current treatment / eval for trach and peg soon CM eval for LTAC 10/06 being eval for possible bedside trach , then eval for LTAC remains sedated on vent 40% Fi02 sub q air right neck improved Objective: GENERAL: sedated on vent SKIN: Warm and dry. sternal incision intact and well approximated HEAD: Normocephalic. EYES: No scleral icterus. No injection or drainage. NECK: Supple, trachea midline. No JVD or lymphadenopathy. CARDIOVASCULAR: irregular rate and rhythm without murmurs, gallops, or rubs. genreral edema RESPIRATORY: Breath sounds equal bilaterally. No accessory muscle use coarse bilateral breath sounds, . GASTROINTESTINAL: Abdomen soft, non-tender, nondistended. MUSCULOSKELETAL: No cyanosis, or edema. BACK: Nontender without obvious deformity. No CVA tenderness. Vital Signs Date Time Temp Pulse Resp B/P (MAP) Pulse Ox O2 Delivery O2 Flow Rate FiO2 10/06/16 11:00 98.0 74 18 113/68 (83) 94 10/06/16 11:00 74 10/06/16 10:52 95 40 10/06/16 08:00 40 10/06/16 07:46 95 40 10/06/16 07:00 78 10/06/16 07:00 97.9 71 18 125/72 (89) 98 10/06/16 07:00 98 Mechanical Ventilator 40 10/06/16 04:34 97 50 10/06/16 04:00 40 10/06/16 03:00 98.9 77 19 115/52 (73) 95 10/06/16 03:00 77 10/06/16 02:19 98 50 10/06/16 00:00 40 10/05/16 23:00 98.5 83 16 119/70 (86) 98 10/05/16 23:00 83 10/05/16 22:43 97 50 10/05/16 20:00 40 10/05/16 19:56 97 50 10/05/16 19:00 94 Mechanical Ventilator 40 10/05/16 19:00 97.7 77 16 128/76 (93) 94 10/05/16 19:00 77 10/05/16 18:00 74 10/05/16 16:00 40 10/05/16 16:00 98.0 97 16 122/69 (86) 98 10/05/16 15:28 95 50 10/05/16 15:00 84 10/05/16 12:52 94 50 10/05/16 12:00 99.0 92 17 109/58 (75) 94 10/05/16 12:00 40 Labs: Laboratory Tests Test 10/06/16 04:43 White Blood Count 11.1 TH/MM3 (4.0-11.0) Red Blood Count 3.31 MIL/MM3 (4.50-5.90) Hemoglobin 9.8 GM/DL (13.0-17.0) Hematocrit 30.7 % (39.0-51.0) Mean Corpuscular Volume 92.7 FL (80.0-100.0) Mean Corpuscular Hemoglobin 29.6 PG (27.0-34.0) Mean Corpuscular Hemoglobin Concent 32.0 % (32.0-36.0) Red Cell Distribution Width 16.1 % (11.6-17.2) Platelet Count 302 TH/MM3 (150-450) Mean Platelet Volume 7.5 FL (7.0-11.0) Neutrophils (%) (Auto) 92.0 % (16.0-70.0) Lymphocytes (%) (Auto) 4.0 % (9.0-44.0) Monocytes (%) (Auto) 3.8 % (0.0-8.0) Eosinophils (%) (Auto) 0.0 % (0.0-4.0) Basophils (%) (Auto) 0.2 % (0.0-2.0) Neutrophils # (Auto) 10.3 TH/MM3 (1.8-7.7) Lymphocytes # (Auto) 0.4 TH/MM3 (1.0-4.8) Monocytes # (Auto) 0.4 TH/MM3 (0-0.9) Eosinophils # (Auto) 0.0 TH/MM3 (0-0.4) Basophils # (Auto) 0.0 TH/MM3 (0-0.2) CBC Comment DIFF FINAL Differential Comment Blood Urea Nitrogen 104 MG/DL (7-18) Creatinine 2.12 MG/DL (0.60-1.30) Random Glucose 230 MG/DL (74-106) Total Protein 6.2 GM/DL (6.4-8.2) Albumin 2.3 GM/DL (3.4-5.0) Calcium Level 8.2 MG/DL (8.5-10.1) Phosphorus Level 6.0 MG/DL (2.5-4.9) Magnesium Level 2.6 MG/DL (1.5-2.5) Alkaline Phosphatase 79 U/L (45-117) Aspartate Amino Transf (AST/SGOT) 17 U/L (15-37) Alanine Aminotransferase (ALT/SGPT) 26 U/L (12-78) Total Bilirubin 0.3 MG/DL (0.2-1.0) Sodium Level 136 MEQ/L (136-145) Potassium Level 4.8 MEQ/L (3.5-5.1) Chloride Level 97 MEQ/L (98-107) Carbon Dioxide Level 31.8 MEQ/L (21.0-32.0) Anion Gap 7 MEQ/L (5-15) Estimat Glomerular Filtration Rate 31 ML/MIN (>89) Result Diagram: 10/06/16 0443 10/06/16 044 (1) History of CVA (cerebrovascular accident) (2) CKD (chronic kidney disease) stage 3, GFR 30-59 ml/min Plan: stable indices (3) S/P CABG x 3 (4) Atrial fibrillation Plan: rate controlled, on eliquis ( will need to be held prior to trach ) (5) Acute hypoxemic respiratory failure Plan: reintubated on vent, CCM following may need trach soon continue supportive care (6) Hypertension (7) Thoracic aortic aneurysm without rupture TRINH GREGORIO Oct 06, 2016 11:42
[2016-10-06] MEDS: MEROPENEM INJ 500 MG in SODIUM CHLORIDE 0.9% INJ 100 ML IV SCH (11:56)
--- NOTE | 2016-10-06 13:16 | PD.CARD.PN ---
Subjective Subjective Remarks Intubated, sedated, still w high O2 req Objective Vital Signs / I&O Vital Signs Date Time Temp Pulse Resp B/P (MAP) Pulse Ox O2 Delivery O2 Flow Rate FiO2 10/06/16 13:06 92 40 10/06/16 12:00 40 10/06/16 11:00 98.0 74 18 113/68 (83) 94 10/06/16 11:00 74 10/06/16 10:52 95 40 10/06/16 08:00 40 10/06/16 07:46 95 40 10/06/16 07:00 78 10/06/16 07:00 97.9 71 18 125/72 (89) 98 10/06/16 07:00 98 Mechanical Ventilator 40 10/06/16 04:34 97 50 10/06/16 04:00 40 10/06/16 03:00 98.9 77 19 115/52 (73) 95 10/06/16 03:00 77 10/06/16 02:19 98 50 10/06/16 00:00 40 10/05/16 23:00 98.5 83 16 119/70 (86) 98 10/05/16 23:00 83 10/05/16 22:43 97 50 10/05/16 20:00 40 10/05/16 19:56 97 50 10/05/16 19:00 94 Mechanical Ventilator 40 10/05/16 19:00 97.7 77 16 128/76 (93) 94 10/05/16 19:00 77 10/05/16 18:00 74 10/05/16 16:00 40 10/05/16 16:00 98.0 97 16 122/69 (86) 98 10/05/16 15:28 95 50 10/05/16 15:00 84 I/O 10/05/16 10/05/16 10/05/16 10/06/16 10/06/16 10/06/16 07:00 15:00 23:00 07:00 15:00 23:00 Intake Total 691 ml 920 ml 830 ml Output Total 800 ml 880 ml 900 ml 450.0 ml Balance -109 ml 40 ml -70 ml -450.0 ml Intake Oral 0 ml 0 ml 0 ml IV Total 308 ml 501 ml 383 ml Tube Feeding 323 ml 329 ml 387 ml Tube Irrigant 60 ml 60 ml Other 90 ml Output Urine Total 800 ml 880 ml 900 ml Tube Feeding Residual Discard 450.0 ml # Bowel Movements 0 0 1 Physical Exam GENERAL: Intubated, sedated SKIN: Warm and dry. HEAD: Normocephalic. EYES: No scleral icterus. No injection or drainage. NECK: Supple, trachea midline. No JVD or lymphadenopathy. CARDIOVASCULAR: Regular rate and rhythm without murmurs, gallops, or rubs. RESPIRATORY: Breath sounds equal bilaterally. No accessory muscle use. GASTROINTESTINAL: Abdomen soft, non-tender, nondistended. MUSCULOSKELETAL: No cyanosis, or edema. Laboratory Laboratory Tests Test 10/06/16 04:43 White Blood Count 11.1 TH/MM3 Red Blood Count 3.31 MIL/MM3 Hemoglobin 9.8 GM/DL Hematocrit 30.7 % Mean Corpuscular Volume 92.7 FL Mean Corpuscular Hemoglobin 29.6 PG Mean Corpuscular Hemoglobin Concent 32.0 % Red Cell Distribution Width 16.1 % Platelet Count 302 TH/MM3 Mean Platelet Volume 7.5 FL Neutrophils (%) (Auto) 92.0 % Lymphocytes (%) (Auto) 4.0 % Monocytes (%) (Auto) 3.8 % Eosinophils (%) (Auto) 0.0 % Basophils (%) (Auto) 0.2 % Neutrophils # (Auto) 10.3 TH/MM3 Lymphocytes # (Auto) 0.4 TH/MM3 Monocytes # (Auto) 0.4 TH/MM3 Eosinophils # (Auto) 0.0 TH/MM3 Basophils # (Auto) 0.0 TH/MM3 CBC Comment DIFF FINAL Differential Comment Blood Urea Nitrogen 104 MG/DL Creatinine 2.12 MG/DL Random Glucose 230 MG/DL Total Protein 6.2 GM/DL Albumin 2.3 GM/DL Calcium Level 8.2 MG/DL Phosphorus Level 6.0 MG/DL Magnesium Level 2.6 MG/DL Alkaline Phosphatase 79 U/L Aspartate Amino Transf (AST/SGOT) 17 U/L Alanine Aminotransferase (ALT/SGPT) 26 U/L Total Bilirubin 0.3 MG/DL Sodium Level 136 MEQ/L Potassium Level 4.8 MEQ/L Chloride Level 97 MEQ/L Carbon Dioxide Level 31.8 MEQ/L Anion Gap 7 MEQ/L Estimat Glomerular Filtration Rate 31 ML/MIN Assessment and Plan Problem List: (1) History of CVA (cerebrovascular accident) ICD Codes: Z86.73 - Personal history of transient ischemic attack (TIA), and cerebral infarction without residual deficits Status: Acute (2) CKD (chronic kidney disease) stage 3, GFR 30-59 ml/min ICD Codes: N18.3 - Chronic kidney disease, stage 3 (moderate) Status: Acute (3) S/P CABG x 3 ICD Codes: Z95.1 - Presence of aortocoronary bypass graft Status: Acute (4) Atrial fibrillation ICD Codes: I48.91 - Unspecified atrial fibrillation (5) Acute hypoxemic respiratory failure ICD Codes: J96.01 - Acute respiratory failure with hypoxia Status: Acute (6) Hypertension ICD Codes: I10 - Essential (primary) hypertension Status: Acute (7) Thoracic aortic aneurysm without rupture ICD Codes: I71.2 - Thoracic aortic aneurysm, without rupture Status: Acute Assessment and Plan On the vent with high O2 requirements, not ready for weaning and extubation. Off amio due to possible pulmonary toxicity. Continue steroids. Monitor renal fx. Rhythm remains stable. Continue ICU care. Seen by Dr. Encinas for pulmonary medicine QuadratMichael MD Oct 06, 2016 13:16
--- NOTE | 2016-10-06 16:52 | HHI.HCPN ---
Reason for visit a. To assist with evaluation and management of symptoms including: dyspnea, anxiety, malnutrition b. To assist medical decision maker(s) with: better understanding of current medical conditions; weighing benefits/burdens of medical treatment options; making medical treatment decisions. Subjective/Interval History This 75 yr old patient presented to the ED on 09/08/16, with reports of right arm weakness, numbness. Symptoms lasted a few minutes and then subsided. Patient with known history of hypertension, AAA repair, colon and bladder cancer posttreatment, DC, CVA, status post CABG 10 days prior to this admission. Patient respiratory status continues to wax and wane. He was intubated for the third time this admission on 10/03/16. Patient is sedated and mechanically ventilated, on 40% FiO2, appears to be comfortable, no labored breathing at this time. Leukocytosis has been slowly improving. CXR 10/06: improvement in the interstitial and airspace opacities bilaterally. However, clinically the patient has shown little improvement. Palliative care continues to follow the patient throughout this hospital course to provide support, guidance, and clarification of medical treatment. . Family/friend interactions Telephone conference with patient's daughter Viola. Advance Directives Living Will: Never completed Health Care Surrogate: Never completed Objective Vital Signs Date Time Temp Pulse Resp B/P (MAP) Pulse Ox O2 Delivery O2 Flow Rate FiO2 10/06/16 15:00 97.5 79 17 131/78 (95) 94 10/06/16 15:00 78 10/06/16 13:06 92 40 10/06/16 12:00 40 10/06/16 11:00 98.0 74 18 113/68 (83) 94 10/06/16 11:00 74 10/06/16 10:52 95 40 10/06/16 08:00 40 10/06/16 07:46 95 40 10/06/16 07:00 78 10/06/16 07:00 97.9 71 18 125/72 (89) 98 10/06/16 07:00 98 Mechanical Ventilator 40 10/06/16 04:34 97 50 10/06/16 04:00 40 10/06/16 03:00 98.9 77 19 115/52 (73) 95 10/06/16 03:00 77 10/06/16 02:19 98 50 10/06/16 00:00 40 10/05/16 23:00 98.5 83 16 119/70 (86) 98 10/05/16 23:00 83 10/05/16 22:43 97 50 10/05/16 20:00 40 10/05/16 19:56 97 50 10/05/16 19:00 94 Mechanical Ventilator 40 10/05/16 19:00 97.7 77 16 128/76 (93) 94 10/05/16 19:00 77 10/05/16 18:00 74 Intake & Output 10/06/16 10/06/16 07:00 19:00 Intake Total 830 ml Output Total 900 ml 450.0 ml Balance -70 ml -450.0 ml Intake Oral 0 ml IV Total 383 ml Tube Feeding 387 ml Tube Irrigant 60 ml Output Urine Total 900 ml Tube Feeding Residual Discard 450.0 ml # Bowel Movements 1 . Physical Exam CONSTITUTIONAL/GENERAL: This is a ill elderly male patient, intubated, sedated, mechanically ventilated. TUBES/LINES/DRAINS: ETT, NGT, peripheral IV left upper extremity,RIJ CVL, Franco catheter, SCDs SKIN: No jaundice, rashes, or lesions. Few areas ecchymoses on upper extremities. No wounds seen anteriorly. Skin temperature appropriate. ENT: Unable to assess secondary to clinical condition. Nose without bleeding or purulent drainage. CARDIOVASCULAR: Irregular rate and rhythm without murmurs.No JVD. Peripheral pulses symmetric. RESPIRATORY/CHEST: Mechanically ventilated, breath sounds equal bilaterally, course crackles and rhonchi throughout. GASTROINTESTINAL: Abdomen soft, non-tender, nondistended. Bowel sounds present. GENITOURINARY: Without palpable bladder distension. Franco catheter in place. NEUROLOGICAL: Sedated. Withdraws to noxious stimuli. PSYCHIATRIC:Unable to assess secondary to clinical condition. . Diagnostic Tests Laboratory Laboratory Tests Test 10/03/16 17:10 10/04/16 04:40 10/04/16 05:15 10/05/16 03:45 Blood Gas Puncture Site RT RADIAL LT RADIAL Blood Gas Patient Temperature 98.6 98.6 Blood Gas HCO3 29 mmol/L (22-26) 28 mmol/L (22-26) Blood Gas Base Excess 3.1 mmol/L (-2-2) 2.8 mmol/L (-2-2) Blood Gas Oxygen Saturation 94 % (90-100) 96 % (90-100) Arterial Blood pH 7.32 (7.380-7.420) 7.33 (7.380-7.420) Arterial Blood Partial Pressure CO2 57 mmHg (38-42) 55 mmHg (38-42) Arterial Blood Partial Pressure O2 92 mmHg (61-120) 135 mmHg (61-120) Arterial Blood Oxygen Content 14.8 Vol % (12.0-20.0) 17.2 Vol % (12.0-20.0) Arterial Blood Carboxyhemoglobin 2.0 % (0-4) 1.6 % (0-4) Arterial Blood Methemoglobin 1.3 % (0-2) 1.1 % (0-2) Blood Gas Hemoglobin 11.2 G/DL (12.0-16.0) 12.6 G/DL (12.0-16.0) Oxygen Delivery Device VENTILATOR VENTILATOR Blood Gas Ventilator Setting 500/20/PEEP 10 AC22/500/10PEEP Blood Gas Inspired Oxygen 60 % 50 % White Blood Count 10.3 TH/MM3 (4.0-11.0) 11.8 TH/MM3 (4.0-11.0) Red Blood Count 3.61 MIL/MM3 (4.50-5.90) 3.60 MIL/MM3 (4.50-5.90) Hemoglobin 10.7 GM/DL (13.0-17.0) 10.4 GM/DL (13.0-17.0) Hematocrit 32.6 % (39.0-51.0) 32.6 % (39.0-51.0) Mean Corpuscular Volume 90.2 FL (80.0-100.0) 90.3 FL (80.0-100.0) Mean Corpuscular Hemoglobin 29.5 PG (27.0-34.0) 28.9 PG (27.0-34.0) Mean Corpuscular Hemoglobin Concent 32.7 % (32.0-36.0) 32.0 % (32.0-36.0) Red Cell Distribution Width 16.5 % (11.6-17.2) 16.2 % (11.6-17.2) Platelet Count 332 TH/MM3 (150-450) 345 TH/MM3 (150-450) Mean Platelet Volume 7.9 FL (7.0-11.0) 7.3 FL (7.0-11.0) Neutrophils (%) (Auto) 91.0 % (16.0-70.0) 90.5 % (16.0-70.0) Lymphocytes (%) (Auto) 6.4 % (9.0-44.0) 4.8 % (9.0-44.0) Monocytes (%) (Auto) 2.1 % (0.0-8.0) 4.5 % (0.0-8.0) Eosinophils (%) (Auto) 0.0 % (0.0-4.0) 0.0 % (0.0-4.0) Basophils (%) (Auto) 0.5 % (0.0-2.0) 0.2 % (0.0-2.0) Neutrophils # (Auto) 9.3 TH/MM3 (1.8-7.7) 10.6 TH/MM3 (1.8-7.7) Lymphocytes # (Auto) 0.7 TH/MM3 (1.0-4.8) 0.6 TH/MM3 (1.0-4.8) Monocytes # (Auto) 0.2 TH/MM3 (0-0.9) 0.5 TH/MM3 (0-0.9) Eosinophils # (Auto) 0.0 TH/MM3 (0-0.4) 0.0 TH/MM3 (0-0.4) Basophils # (Auto) 0.1 TH/MM3 (0-0.2) 0.0 TH/MM3 (0-0.2) CBC Comment DIFF FINAL DIFF FINAL Differential Comment Blood Urea Nitrogen 76 MG/DL (7-18) 83 MG/DL (7-18) Creatinine 2.21 MG/DL (0.60-1.30) 2.07 MG/DL (0.60-1.30) Random Glucose 128 MG/DL (74-106) 108 MG/DL (74-106) Calcium Level 9.2 MG/DL (8.5-10.1) 9.2 MG/DL (8.5-10.1) Phosphorus Level 6.8 MG/DL (2.5-4.9) 6.6 MG/DL (2.5-4.9) Magnesium Level 2.5 MG/DL (1.5-2.5) 2.6 MG/DL (1.5-2.5) Sodium Level 133 MEQ/L (136-145) 136 MEQ/L (136-145) Potassium Level 4.8 MEQ/L (3.5-5.1) 4.9 MEQ/L (3.5-5.1) Chloride Level 93 MEQ/L (98-107) 94 MEQ/L (98-107) Carbon Dioxide Level 30.2 MEQ/L (21.0-32.0) 31.6 MEQ/L (21.0-32.0) Anion Gap 10 MEQ/L (5-15) 10 MEQ/L (5-15) Estimat Glomerular Filtration Rate 29 ML/MIN (>89) 31 ML/MIN (>89) Total Protein 6.8 GM/DL (6.4-8.2) Albumin 2.3 GM/DL (3.4-5.0) Alkaline Phosphatase 66 U/L (45-117) Aspartate Amino Transf (AST/SGOT) 19 U/L (15-37) Alanine Aminotransferase (ALT/SGPT) 28 U/L (12-78) Total Bilirubin 0.4 MG/DL (0.2-1.0) Ammonia 26 MCMOL/L (11-32) Lipase 202 U/L (73-393) Test 10/06/16 04:43 White Blood Count 11.1 TH/MM3 (4.0-11.0) Red Blood Count 3.31 MIL/MM3 (4.50-5.90) Hemoglobin 9.8 GM/DL (13.0-17.0) Hematocrit 30.7 % (39.0-51.0) Mean Corpuscular Volume 92.7 FL (80.0-100.0) Mean Corpuscular Hemoglobin 29.6 PG (27.0-34.0) Mean Corpuscular Hemoglobin Concent 32.0 % (32.0-36.0) Red Cell Distribution Width 16.1 % (11.6-17.2) Platelet Count 302 TH/MM3 (150-450) Mean Platelet Volume 7.5 FL (7.0-11.0) Neutrophils (%) (Auto) 92.0 % (16.0-70.0) Lymphocytes (%) (Auto) 4.0 % (9.0-44.0) Monocytes (%) (Auto) 3.8 % (0.0-8.0) Eosinophils (%) (Auto) 0.0 % (0.0-4.0) Basophils (%) (Auto) 0.2 % (0.0-2.0) Neutrophils # (Auto) 10.3 TH/MM3 (1.8-7.7) Lymphocytes # (Auto) 0.4 TH/MM3 (1.0-4.8) Monocytes # (Auto) 0.4 TH/MM3 (0-0.9) Eosinophils # (Auto) 0.0 TH/MM3 (0-0.4) Basophils # (Auto) 0.0 TH/MM3 (0-0.2) CBC Comment DIFF FINAL Differential Comment Blood Urea Nitrogen 104 MG/DL (7-18) Creatinine 2.12 MG/DL (0.60-1.30) Random Glucose 230 MG/DL (74-106) Total Protein 6.2 GM/DL (6.4-8.2) Albumin 2.3 GM/DL (3.4-5.0) Calcium Level 8.2 MG/DL (8.5-10.1) Phosphorus Level 6.0 MG/DL (2.5-4.9) Magnesium Level 2.6 MG/DL (1.5-2.5) Alkaline Phosphatase 79 U/L (45-117) Aspartate Amino Transf (AST/SGOT) 17 U/L (15-37) Alanine Aminotransferase (ALT/SGPT) 26 U/L (12-78) Total Bilirubin 0.3 MG/DL (0.2-1.0) Sodium Level 136 MEQ/L (136-145) Potassium Level 4.8 MEQ/L (3.5-5.1) Chloride Level 97 MEQ/L (98-107) Carbon Dioxide Level 31.8 MEQ/L (21.0-32.0) Anion Gap 7 MEQ/L (5-15) Estimat Glomerular Filtration Rate 31 ML/MIN (>89) Result Diagram: 10/06/1644210/06/16442 Imaging Last 72 hours Impressions Chest X-Ray 10/06/16 0600 Signed Impressions: Service Date/Time: Thursday, October 06, 2016 04:47 - CONCLUSION: Improvement in the interstitial and airspace opacities bilaterally. Jarad Delgado MD Chest X-Ray 10/05/16 1800 Signed Impressions: Service Date/Time: Wednesday, October 05, 2016 18:11 - CONCLUSION: 1. Improving bilateral subcutaneous emphysema. 2. There continues to be bilateral interstitial pulmonary infiltrates which are about the same or mildly increased compared to the prior study. Kodi Ashraf MD Chest X-Ray 10/05/16 0600 Signed Impressions: Service Date/Time: Wednesday, October 05, 2016 03:45 - CONCLUSION: 1. New soft tissue air in the visualized inferior neck and supraclavicular regions bilaterally. This is of uncertain etiology. No pneumothorax is visualized. 2. Bilateral interstitial and air space consolidation, slightly increased from yesterday's exam. Jarad Delgado MD Neck CT 10/05/16 0000 Signed Impressions: Service Date/Time: Wednesday, October 05, 2016 10:41 - CONCLUSION: Extensive subcutaneous emphysema. Jarad De Jesus MD Chest CT 10/05/16 0000 Signed Impressions: Service Date/Time: Wednesday, October 05, 2016 10:43 - CONCLUSION: Prior median sternotomy cardiac surgery atherosclerotic cardiovascular disease with left ventricular cardiomegaly and evidence of interstitial alveolar edema in both lungs consistent with CHF. Support tubes in place with subcutaneous emphysema in the soft tissues of neck bilaterally and supraclavicular. There is no evidence of pneumothorax. Lele Escudero MD Chest X-Ray 10/04/16 1240 Signed Impressions: Service Date/Time: Tuesday, October 04, 2016 12:52 - CONCLUSION: Central line good position without pneumothorax. Victor Hugo Kiser MD FACR Chest X-Ray 10/04/16 0600 Signed Impressions: Service Date/Time: Tuesday, October 04, 2016 03:57 - CONCLUSION: Mild improved aeration at the left lung base with continued diffuse bilateral interstitial and air space opacity. Jarad Delgado MD Procedures . Assessment and Plan Disease Oriented Problem List: (1) Hypoxemic respiratory failure, chronic (2) Acute kidney failure (3) Anemia (4) Hypertension (5) CKD (chronic kidney disease) stage 3, GFR 30-59 ml/min (6) History of CVA (cerebrovascular accident) (7) Leukocytosis (8) Congestive heart failure (9) S/P CABG x 3 Symptom Scale: (1) Dyspnea (2) Anxiety (3) Malnutrition Pertinent Non-Medical Issues Psychosocial: , 2 adult children. Retired from the [employer]. Retired since 1979. Has lived in [place] since [address]. to his for 60+ years. Spiritual: [employer], open to spiritual visits Legal: Patient appears capacitated though with limited insight, given his fluctuating oxygenation status would recommend supported decision making involving his who would be the legal proxy if patient incapacitated. Ethical issues impacting care: None known. . Important Contacts Sarai Hartley [phone] / [phone] -work #. dtr Viola Escudero [phone] . Prognosis This patient was admitted for left-sided weakness, dyspnea on 09/08, possible TIA versus CVA. Status post CABG 2 weeks ago. Multiple chronic medical problems. Has had persistent acute renal failure which improved slightly and then worsens. Has had persistent pulmonary infiltrates, atelectasis, intubated/ extubated three times this admission. Given advanced age, multiple chronic medical conditions and current acute issues puts him at risk for further complications, setbacks, and potentially . Code Status: Full Code Plan * Legal decision maker: Per [place] statutes in absence of written advanced directives health care decision making would fall to the patient's . Patient 's daughter Viola is local and has been supporting her mother throughout this hospitalization to assist in understanding of medical treatment and health care decision making. * Goals: Goals aggressive. Telephone conference with patient's daughter Viola again today to discuss patient and family goals. She stated that family would proceed with trach and PEG if necessary and desire to pursue aggressive care. CODE STATUS: Full code SYMPTOMS: --dyspnea-on and off of BiPAP, ventilator intubated 3, extubated 3. Questionable pulmonary toxicity due to amiodarone. Leukocytosis improving. No further recommendations at this time. --malnutrition- Intubated/mechanically ventilated, tube feeding, Suplean at 35ml/hr goal rate of 55ml/hr. No further recommendations at this time. --anxiety-Patient sedated on propofol mechanically ventilated. No further recommendations at this time. Palliative care will continue to follow during hospital course as condition evolves, to assist patient/decision-maker with understanding of medical conditions, weighing benefits/burdens of treatment options, for clarification of goals of treatment. Additionally will assist with any symptoms of palliative concern Attestation To help prompt me to consider important information that might be impacting today's encounter and assessment, information from prior notes written by myself or my colleagues may have been "brought forward" into today's note. My signature on this note, however, is an attestation that I personally performed the exam, history, and/or decision-making noted today, and, unless otherwise indicated, the interactions with patient, family, and staff as well as the review of records all occurred today. I also attest that the listed assessment and stated plan reflect my best clinical judgment today based on the combination of historical information, prior notes, and today's exam/ interactions. When time spent is documented, it refers only to time spent today by the signer, or if indicated, combined time spent today by collaborating physician/nurse practitioner. Ronit Blackwood Oct 06, 2016 16:52
--- NOTE | 2016-10-06 17:27 | HHI.NPPN ---
Subjective History of Present Illness The patient is a 75 yo [place] male who presented to this facility 09/08 with complaints of R hand weakness. He was here at this facility just 10 days ago for 4-vessel CABG, discharged on 08/29. While undergoing CABG, he suffered a stroke and came in today as he was concerned he was having another. Was having no other neurological issues. We were consulted for acute renal failure. Presenting SCr of 3.65 that has worsened significantly from discharge on 08/29 at 1.53. Appears baseline renal function 1.2-1.6 according to previous records. States he has been at his usual state of health since his hospital discharge besides R hand weakness that resolved on its own while here in the ED. Denies any NVD. No NSAIDs. Denies any urinary issues. Review of previous imaging (namely CTA on 08/24) showed a L sided hydronephrosis extending to UVJ. THe patient was unaware of this. He has hx of bladder CA that was treated by surgical resection at [facility] about 1 year ago. Scheduled for f/u there in 1 month. CTA also revealed abdominal aneurysm that vascular surgery was consulted about and was supposed to have f/u as outpatient. Interval History Recent notes reviewed. Patient is still intubated. Review of Systems General General Remarks Unable to obtain secondary to patient's clinical condition. Cardiovascular Cardiac: SHEN Objective Data Data 10/06/16 10/07/16 18:59 06:59 Output Total 450.0 ml Balance -450.0 ml Tube Feeding Residual Discard 450.0 ml Vital Signs Date Time Temp Pulse Resp B/P (MAP) Pulse Ox O2 Delivery O2 Flow Rate FiO2 10/06/16 16:00 40 10/06/16 15:00 97.5 79 17 131/78 (95) 94 10/06/16 15:00 78 10/06/16 13:06 92 40 10/06/16 12:00 40 10/06/16 11:00 98.0 74 18 113/68 (83) 94 10/06/16 11:00 74 10/06/16 10:52 95 40 10/06/16 08:00 40 10/06/16 07:46 95 40 10/06/16 07:00 78 10/06/16 07:00 97.9 71 18 125/72 (89) 98 10/06/16 07:00 98 Mechanical Ventilator 40 10/06/16 04:34 97 50 10/06/16 04:00 40 10/06/16 03:00 98.9 77 19 115/52 (73) 95 10/06/16 03:00 77 10/06/16 02:19 98 50 10/06/16 00:00 40 10/05/16 23:00 98.5 83 16 119/70 (86) 98 10/05/16 23:00 83 10/05/16 22:43 97 50 10/05/16 20:00 40 10/05/16 19:56 97 50 10/05/16 19:00 94 Mechanical Ventilator 40 10/05/16 19:00 97.7 77 16 128/76 (93) 94 10/05/16 19:00 77 10/05/16 18:00 74 -: 10/06/16 0443 10/06/16 0443 Physical Exam General Appearance: No Acute Distress Eyes Eye Exam: Sclera White Pulmonary Resp Exam: Clear Bilaterally, Breath Sounds Equal, No Distress Cardiology CV Exam: Regular, Normal Sinus Rhythm Gastrointestinal/Abdomen GI Exam: Soft, Non-Tender, Distended Integumentary Skin Exam: Clear, Warm Skin Remarks Skin turgor diminished. Extremeties Extremities Exam: No Edema Assessment/Plan Discussed Condition With: Patient Problem List: (1) Acute kidney failure ICD Codes: N17.9 - Acute kidney failure, unspecified Status: Acute Plan: Differential diagnosis at this point as far as previous acute renal insufficiency is concerned would be atheroembolic disease occurring during previous admission with subsequent decline in renal function and a lesser consideration towards interstitial nephritis possibly related to Protonix. Kidney biopsy could not be performed secondary to patient's clinical condition and he also indicated to me during this admission that he would not agree to same. No overt evidence of fluid overload at this time and the patient's ejection fraction said to be preserved by echocardiogram. I believe the primary issue here as far as his respiratory status is concerned his intrinsic pulmonary disease rather than congestive heart failure although utilization of diuretic therapy to maintain euvolemic okay from a renal point of view so long as dehydration is avoided. Patient's renal indices have improved but not back to his previous baseline prior to this admission and possibly will not do so. Again there is no indication for dialytic intervention at this time. Patient will continue to be seen intermittently at this point. I nothing to add further to management presently. Disproportionate elevation of the BUNs likely related to steroids. Would avoid excessive diuresis. Please note that prednisone 40 mg equivalent was started empirically for possible interstitial nephritis related to Protonix. Noted patient has been started on Solu-Medrol secondary to respiratory issues. I will defer steroid therapy to critical care/pulmonary at this time. Would like however if the patient goes back on prednisone that it be tapered slowly over a few weeks.. Recommend avoidance of Protonix in the future without kidney biopsy to confirm or eliminate incision nephritis. Medications should be adjusted for the patient's renal decline. Avoid nephrotoxic medications including NSAIDs and iodinated contrast dyes. Gadolinium should be avoided as eGFR 30. . Please call if any questions however. (2) CKD (chronic kidney disease), stage III ICD Codes: N18.3 - Chronic kidney disease, stage 3 (moderate) Status: Chronic (3) Hypoxemic respiratory failure, chronic ICD Codes: J96.11 - Chronic respiratory failure with hypoxia Status: Acute Plan: Pt s/p extubation, but not tolerating Bi-PAP. Sats in upper 80s to 90s on NC. (4) TIA (transient ischemic attack) ICD Codes: G45.9 - Transient cerebral ischemic attack, unspecified Status: Acute (5) Hypertension ICD Codes: I10 - Essential (primary) hypertension Status: Acute (6) CAD (coronary artery disease) ICD Codes: I25.10 - Atherosclerotic heart disease of [place] coronary artery without angina pectoris Status: Chronic (7) Congestive heart failure ICD Codes: I50.9 - Heart failure, unspecified Status: Acute Plan: Compensated currently. (8) Anemia ICD Codes: D64.9 - Anemia, unspecified Status: Acute Plan: Of acute illness. Problem Qualifiers (1) TIA (transient ischemic attack): Liv Cerda MD Oct 06, 2016 17:27
--- NOTE | 2016-10-06 18:05 | HHI.PR ---
Subjective Remarks Intubated and on a ventilator , with FIo2 at 50 % CT chest shows subcutaneous air and patchy bilateral infiltrates.Could be Drug toxicity. and or pulmonary edema O2 sats 95 on 40 % FIO2. CXR is better today Sedated with Propofol.Trach being planned. Objective Vital Signs Date Time Temp Pulse Resp B/P (MAP) Pulse Ox O2 Delivery O2 Flow Rate FiO2 10/06/16 16:00 40 10/06/16 15:00 97.5 79 17 131/78 (95) 94 10/06/16 15:00 78 10/06/16 13:06 92 40 10/06/16 12:00 40 10/06/16 11:00 98.0 74 18 113/68 (83) 94 10/06/16 11:00 74 10/06/16 10:52 95 40 10/06/16 08:00 40 10/06/16 07:46 95 40 10/06/16 07:00 78 10/06/16 07:00 97.9 71 18 125/72 (89) 98 10/06/16 07:00 98 Mechanical Ventilator 40 10/06/16 04:34 97 50 10/06/16 04:00 40 10/06/16 03:00 98.9 77 19 115/52 (73) 95 10/06/16 03:00 77 10/06/16 02:19 98 50 10/06/16 00:00 40 10/05/16 23:00 98.5 83 16 119/70 (86) 98 10/05/16 23:00 83 10/05/16 22:43 97 50 10/05/16 20:00 40 10/05/16 19:56 97 50 10/05/16 19:00 94 Mechanical Ventilator 40 10/05/16 19:00 97.7 77 16 128/76 (93) 94 10/05/16 19:00 77 I/O 10/05/16 10/05/16 10/05/16 10/06/16 10/06/16 10/06/16 07:00 15:00 23:00 07:00 15:00 23:00 Intake Total 691 ml 920 ml 830 ml Output Total 800 ml 880 ml 900 ml 450.0 ml Balance -109 ml 40 ml -70 ml -450.0 ml Intake Oral 0 ml 0 ml 0 ml IV Total 308 ml 501 ml 383 ml Tube Feeding 323 ml 329 ml 387 ml Tube Irrigant 60 ml 60 ml Other 90 ml Output Urine Total 800 ml 880 ml 900 ml Tube Feeding Residual Discard 450.0 ml # Bowel Movements 0 0 1 Result Diagram: 10/06/1644210/06/16442 Objective Remarks GENERAL: This moderately overweight elderly man ,Intubated on the vent. HEENT: Head is normocephalic. Pupils are reactive. Tongue is moist. Throat clear NECK: No venous distention. Mild sub cut air. Trachea is midline. No thyroid enlargement. CHEST: Equal movements with diminished breath sounds at the bases with bibasilar crackles. HEART: Sounds are irregular S1-S2. No murmur. ABDOMEN: Soft. Protuberant without masses. No organomegaly. EXTREMITIES: Decreased pulses. .Edema 1 + SKIN: warm. Neuro : Sedated . Assessment and Plan Assessment and Plan IMPRESSION 1. Acute respiratory failure.Resolving 2. Fluid overload status with pulmonary edema. 3. Acute kidney failure.Resolving 4. History of cerebrovascular accident. 5. Bibasilar atelectasis with possible pneumonia. 6. History of colon cancer and bladder cancer. 7. Possible Hypersensitivity Pneumonia or Edema Plan : 1. 2. FIO2 at 40 %and wean to keep sat >92. 3. Nebs qid ,Duoneb. 4. Reduce sedation and CPAP trial in am 5. Antibiotics per ID 6. Lasix 20 mg IV daily 7. Chest Xray in am 8. CPAP trial in am . 9. Hold trach for 3 days and Try weaning on CPAP . 10. Cont solumedrol IV 40 mg Q8H. Jaime Encinas MD Oct 06, 2016 18:04
[2016-10-06 19:45] LABS: C. DIFF EPI 027 PRESUMPTIVE NEGATIVE (NEGATIVE)
[2016-10-06] MEDS: MONTELUKAST SODIUM 10 MG TAB PO SCH (21:46)
[2016-10-07] VITALS (15 sets, daily range): BP systolic 131–159; BP diastolic 82–98; PULSE 68–91; RESP 15–23; TEMP 97.3–98.3; O2SAT 91–98
[2016-10-07] MEDS: PROPOFOL 1000 MG/100 ML INJ 100 ML IV PRN ×3 (00:51→06:19)
[2016-10-07] MEDS: MEROPENEM INJ 500 MG in SODIUM CHLORIDE 0.9% INJ 100 ML IV SCH (00:51)
[2016-10-07] MEDS: RESP: ALBUTEROL 2.5 MG/IPRATROPIUM 0.5 MG NEB (SCH) NEB ×3 (04:13→16:03)
[2016-10-07 05:00] LABS: HEMATOCRIT 33.6 % (39.0-51.0); MEAN CELL VOLUME 92.6 FL (80.0-100.0); MEAN CORPUSCULAR HEMOGLOBIN 29.2 PG (27.0-34.0); MEAN CORPUSCULAR HGB CONC 31.5 % (32.0-36.0); PLATELET COUNT 296 TH/MM3 (150-450); RED BLOOD COUNT 3.63 MIL/MM3 (4.50-5.90); RED CELL DISTRIBUTION WIDTH 16.4 % (11.6-17.2); REVIEW FLAG FINAL; WHITE BLOOD COUNT 11.4 TH/MM3 (4.0-11.0)
[2016-10-07 05:10] LABS: APTT (PATIENT) 23.8 SEC (24.3-30.1); INTERNATIONAL NORMALIZED RATIO 1.1 RATIO; PROTHROMBIN TIME - PATIENT 11.7 SEC (9.8-11.6)
[2016-10-07 05:35] LABS: BICARBONATE 35.6 MEQ/L (21.0-32.0); MAGNESIUM 2.9 MG/DL (1.5-2.5); POTASSIUM 4.9 MEQ/L (3.5-5.1)
[2016-10-07] MEDS: INSULIN ASPART SUPPLEMENTAL SCALE SQ SCH ×4 (06:00→18:00)
[2016-10-07] MEDS: methylPREDNISolone SOD SUCC 40 MG/1 ML VIAL IV PUSH SCH ×3 (06:19→21:00)
[2016-10-07] MEDS: ARTIFICIAL TEARS OPTH SOLN 15 ML BTL EACH EYE SCH ×3 (06:19→22:00)
[2016-10-07] MEDS: MIDAZOLAM 100 MG/NS 100 ML DRIP Premix IV PRN (06:38)
--- NOTE | 2016-10-07 07:06 | HHI.CCPN ---
Subjective Remarks/Hospital Course 75 y/o man now about 4 weeks following CABG complicated by CVA. Presented back 08/28 with new onset right arm weakness. Hospital course has been complicated by CKD and fluid overload. We have attempted BiPAP for several hours but he remains in distress and although oxygenation is acceptable work of breathing is excessive. Worrisome increasing metabolic acidosis. 09/17: Gas exchange much improved. BNP 1681, ScVO2 71%. It appears that cardiac output is more than adequate for peripheral needs and the primary pathology is renal failure and fluid overload. If we can manage volume I can probably get him extubated. 09/18: Diffuse crackles. Needs to be diuresed today. Tolerating extubation but at risk for hypoxemic failure again. 09/20 - Re consulted due to worsening hypoxia. Currently on nonrebreather mask. Chest x-ray shows worsening consolidation right lobe creatinine slightly improved over. Family request transfer to [facility] however refused. We'll attempt to decipher status currently unknown. 09/21: Remains on nonrebreather mask. Saturations between 89-97%. Chest x-ray unchanged. Not tachypnea. Not confused. 09/22: Radiographic studies show diffuse interstitial process with skip areas - more indicative of infectious/inflammatory process. Sats 85% with labored pattern. Required intubation for deteriorating respiratory status. 09/23: Gas exchange improving. Pulmonary infiltrates remain very concerning - if most recent sputum is benign I would not be opposed to steroids. 09/24: Extubated today. On 3 L nasal cannula. Passed swallow evaluation. Appropriate interactive status post extubation. 09/29: Critical care reconsult requested by Dr. Meza for respiratory failure. Patient reportedly was on BiPAP this morning. He was given additional diuretic earlier as he was short of breath. With this he seems to have improved somewhat and has been on a nonrebreather facemask for more than a few hours. He states that he is breathing much better. Patient being adamant about not using BiPAP. I had a detailed conversation about the importance of using BiPAP especially at night in view of his history of sleep apnea. Patient did not appear to be in acute distress though he was requiring a nonrebreather facemask at the time of my evaluation. No urgent need for BiPAP or intubation at this time. In fact patient is stating that he is breathing much better than this morning. 09/30: Remains on nonrebreather facemask. Refused BiPAP at night. States that he is breathing better today than yesterday. 10/01: 02 30 L/m 100% FiO2. O2 sats borderline. Episodes of confusion. When I evaluated the patient he was sitting up in bed and was able to converse. Not using accessory muscles of respirations currently. 10/02: The patient is alert and oriented currently has been weaned down to high flow nasal cannula with an FiO2 of 65%, maintaining O2 saturation to 95%. Patient is appropriately conversant no episodes of confusion noted. 10/03: Yesterday, the patient received 2 units of packed red blood cells with Furosemide dosing in between transfusion of units, with diuresis of approximately 2900 cc. Last night, the patient was noted to have respiratory decompensation, continued refusal to utilize BiPAP during the night. FiO2 requirements increased to 100% this a.m., on high flow nasal cannula, with noted accessory muscle use and inability to speak in complete sentences secondary to dyspnea. The patient received additional dose of Lasix this a.m. , chest x-ray appeared to be worsened this a.m. .Patient subsequently became hypoxic requiring emergent intubation this a.m.., O2 sat saturation 80s on 100 % FiO2. 10/04: Intubated yesterday due to general and hypoxia. Diuresed with 80 mg furosemide 1. Tmax 99.8. Currently 97.8. Tube feeds initiated. No bowel movement. 10/05: Afebrile. Subcutaneous air in neck bilaterally on chest x-ray today. No obvious pneumothorax. No pneumothorax on chest x-ray yesterday post central line placement. Tolerating tube feeding. No bowel movement. 10/06: Currently resting in bed. Subcutaneous air neck much improved. X-ray improved. FiO2 down to 40%. Tolerating tube feeding. One bowel movement. Subjective: 10/07: Afebrile. Currently on propofol drip at 40 mg/kg per minute. X-ray has improved. Currently not tolerating tube feeds. 2 bowel movements documented. Sedation vacation today ordered. Objective Vital Signs Date Time Temp Pulse Resp B/P (MAP) Pulse Ox O2 Delivery O2 Flow Rate FiO2 10/07/16 04:00 40 10/07/16 04:00 97.4 68 16 140/85 (103) 98 10/06/16 19:00 Mechanical Ventilator Intake and Output 10/07/16 10/07/16 9 08:00 16:00 00:00 Intake Total 400 ml Output Total 100.0 ml Balance 300.0 ml Result Diagram: 10/07/16 04310/07/16 043 Other Results Microbiology Date/Time Source Procedure Growth Status 10/03/16 13:35 Blood Peripheral Aerobic Blood Culture - Preliminary NO GROWTH IN 3 DAYS Resulted 10/03/16 13:35 Blood Peripheral Anaerobic Blood Culture - Preliminary NO GROWTH IN 3 DAYS Resulted 09/12/16 01:00 Stool Stool Stool Occult Blood (JAME) - Final HEMOCCULT NEGATIVE Complete 10/03/16 12:49 Nasal Washing Influenza Types A,B Antigen (JAME) - Final NEGATIVE FOR FLU A AND B ANTIGEN.... Complete 10/03/16 12:20 Urine Catheterized Urine Streptococcus pneumoniae Antigen (M - Final PRESUMPTIVE NEGATIVE FOR STREPTOCOCCU... Complete Imaging Last Impressions Chest X-Ray 10/06/16 0600 Signed Impressions: Service Date/Time: Thursday, October 06, 2016 04:47 - CONCLUSION: Improvement in the interstitial and airspace opacities bilaterally. Jarad Delgado MD Neck CT 10/05/16 0000 Signed Impressions: Service Date/Time: Wednesday, October 05, 2016 10:41 - CONCLUSION: Extensive subcutaneous emphysema. Jarad De Jesus MD Chest CT 10/05/16 0000 Signed Impressions: Service Date/Time: Wednesday, October 05, 2016 10:43 - CONCLUSION: Prior median sternotomy cardiac surgery atherosclerotic cardiovascular disease with left ventricular cardiomegaly and evidence of interstitial alveolar edema in both lungs consistent with CHF. Support tubes in place with subcutaneous emphysema in the soft tissues of neck bilaterally and supraclavicular. There is no evidence of pneumothorax. Lele Escudero MD Head Magnetic Resonance Angiography 09/10/16 1028 Signed Impressions: Service Date/Time: Saturday, September 10, 2016 10:57 - CONCLUSION: 1. Unremarkable MRA examination without evidence for large vessel occlusion, aneurysm, or vascular malformation. Richardson Haney MD Brain MRI 09/10/16 1028 Signed Impressions: Service Date/Time: Saturday, September 10, 2016 10:57 - CONCLUSION: 1. Findings most consistent with new embolic infarcts involving both the anterior and posterior circulation. Richardson Haney MD Carotid Artery Ultrasound 09/09/16 1028 Signed Impressions: Service Date/Time: September 10:43 - CONCLUSION: 1. Moderate visible plaque without hemodynamically significant stenosis identified. No significant change from August 25. Amado Crain MD Renal Ultrasound 09/09/16 0000 Signed Impressions: Service Date/Time: , September 09, 2016 15:41 - CONCLUSION: 1. Cortical atrophy with small bilateral renal cysts. No hydronephrosis. Amado Crain MD Head CT 09/08/16 2251 Signed Impressions: Service Date/Time: Thursday, September 08, 2016 23:41 - CONCLUSION: Stable noncontrast CT with no evidence of hemorrhage or acute infarction. Atrophy and chronic small vessel splenic changes remain. Sanya Cavazos MD Objective Remarks GENERAL: 75-year-old male currently orotracheally intubated critically ill SKIN: Warm and dry. We'll perfused HEAD: Atraumatic. Normocephalic. NECK: Trachea midline. No thyromegaly. Positive bilateral crepitus. Right IJ is clean dry and intact. CARDIOVASCULAR: IRR. S1, S2 no S4. Without murmur RESPIRATORY: Air entry decreased bilaterally at bases, scattered rhonchi, no wheezing. GASTROINTESTINAL: Abdomen soft, non-tender, nondistended. No guarding. BS active. MUSCULOSKELETAL: Extremities with trace to 1+ B/L lower extremity edema. No obvious deformities. NEUROLOGICAL: Positive corneal reflex. Positive gag. Withdraws to noxious stimulation all 4 extremities. Procedures 10/03- intubation Date of Insertion: Oct 03, 2016 Date of Insertion: Oct 04, 2016 Line: Central Venous Catheter Side: Right Location: Internal, Jugular A/P Assessment and Plan Neuro/Psych: Left occipital, bilateral frontal parietal cerebellar CVA subacute Chronic headaches Chronic benzodiazepine use Chronic oxycodone use MRI 09/10 brain revealed left occipital, bilateral frontal parietal and cerebellar CVA likely ALFIE/FORECLOSURE PARALEGAL distribution Followed by Dr. Jeffries/neurology. 10/[address] Prajapati in view of episodes of confusion. Nonfocal. Currently on alprazolam 0.25 mg every 6 hours PRN Anxiety Currently on propofol at 40 mg/kg minutes and midazolam @ 2.5 mg an hour for sedation while intubated Goal of RA SS -2 Daily sedation vacation CV: Coronary disease status post CABG ASCVD Carotid stenosis TAAA Hypertension dyslipidemia History atrial fibrillation status post ablation 2011 Followed by cardiology. Currently off atorvastatin 40 mg daily/home medication for dyslipidemia On PO Apixaban 5 mg twice a day per cardiology. Off amiodarone for suspected pulmonary toxicity Echocardiogram revealed EF 70%. OHS septal motion./Paradoxical, CARA 50-60 mmHg Currently labetalol 100 mg 3 times a day for hypertension. As needed metoprolol for tachycardia Continue aspirin 81 mg by mouth daily Resp: Acute hypoxemic respiratory failure Subcutaneous air neck ACV 15// Ventilator bundle Albuterol/ipratropium every 6 hours with albuterol aerosols as indicated 3rd intubation. Last 10/03 Chest x-ray 10/06 - improved bilateral subcutaneous neck. No obvious pneumothorax. CT chest ruled out pneumothorax Likely barotrauma from mechanical ventilation. PEEP decreased from 10-5 . 10/03 switched Methylprednisolone 40 mg every 12hrs- ( Prednisone 40mg q day taper over's several weeks recommended by nephrology for possible pantoprazole induced interstitial nephritis) Pulmonary following Dr. Encinas Continue antibiotics per ID Dr. Nova - recommending lung biopsy CT surgery - [place] [facility]: Currently holding Suplena goal 55 cc an hour (per dietary recommendations) due to high tube feed residuals On famotidine 20 mg by mouth daily for GI prophylaxis Docusate sodium 100 mg twice a day, senna liquid 8.6 mg twice a day and polyethylene glycol 3350 17 g twice daily Start metoclopramide 5 mill grams IV every 8 hours Check KUB. Check LFTs, lipase, amylase, lactate, CPK LIWS NGT - 600 cc overnight History of hydroureter Renal ultrasound revealed no hydronephrosis Reinsert choi- intubated and receiving diuretics- Strict I&O's Endo: Sliding scale insulin if indicated Renal: Acute on chronic kidney injury Currently holding furosemide 20 mg by mouth daily Nephrology follow-up.. 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 Slowly wean steroids due to this issue as above pulmonary section. Dr. Cerda following Heme: History of colon cancer status post partial colectomy History of bladder cancer normocytic anemia Leukocytosis Monitor CBC daily. Follow trends. Noted elevated lambda and kappa Chains/ESR likely secondary underlying acute kidney injury. Evaluated by Dr. Mccollum/hematology ID: Likely hospital-acquired pneumonia On meropenem//linezolid since 09/27 per ID. Pertinent cultures 10/03-repeat blood, urine Legionella and pneumococcal antigens and sputum cultures follow-up results 10/03-influenza negative 09/28 - blood cultures 2 - no growth 09/22 - sputum - no growth 09/16 - blood cultures 2 - no growth FEN: Hyponatremia Hyperphosphatemia Hyper-magnesium Monitor and replete electrolytes Continue calcium acetate 667 mg 3 times a day Remove milk of magnesia from MAR Start normal saline at 50 cc an hour while tube feeds on hold MSK: PT evaluate and treat Prophylaxis - GI -famotidine - DVT - SCD/apixaban Access - Right subclavian CVL placed 09/16 - 10/04 - Right IJ CVL 10/04 present Critical Care: The total critical care time was 30 minutes. Time to perform other separately billable procedures was not included in the critical care time. is agreeable to tracheostomy. Dr. 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 Meropenem, linezolid and famotidine all discontinued. Loaded with Keppra and scheduled 500 mg IV twice a day. Neurology consult for management of antiepileptics. MRI brain ordered. Will discuss with . Zay Romero MD Oct 07, 2016 07:06
[2016-10-07] MEDS: CHLORHEXIDINE 0.12% (ORAL KIT) 15 ML CUP MT SCH ×4 (08:00→21:00)
[2016-10-07 08:35] LABS: INDIRECT BILIRUBIN 0.3 MG/DL (0.0-0.8); TOTAL BILIRUBIN ADULT 0.4 MG/DL (0.2-1.0)
[2016-10-07] MEDS: SODIUM CHLORIDE 0.9% FLUSH 10 ML FLUSH IVF SCH (09:00)
[2016-10-07] MEDS: DOCUSATE SODIUM 100 MG/10 ML UDC NG SCH ×2 (09:00→21:00)
[2016-10-07] MEDS: SENNOSIDES SYRUP 8.8 MG/5 ML CUP NG SCH ×2 (09:00→21:00)
[2016-10-07] MEDS: POLYETHYLENE GLYCOL 17 GM PKG NG SCH ×2 (09:00→21:00)
[2016-10-07] MEDS: CALCIUM ACETATE 667 MG CAP PO SCH ×3 (09:27→18:36)
--- NOTE | 2016-10-07 09:27 | RADRPT ---
EXAM DATE/TIME: 10/07/2016 08:32 [place] COMPARISON: No previous studies available for comparison. INDICATIONS : Abdominal pain, evaluate ileus MEDICAL HISTORY : TIA, acute renal failure SURGICAL HISTORY : None. ENCOUNTER: Initial ACUITY: 2 days PAIN SCORE: Non-responsive. LOCATION: Bilateral abdomen FINDINGS: 2 AP supine views of the abdomen and pelvis were obtained and demonstrate gas and stool noted segment ally in the colon. There is no evidence of free air or mass effect. Patient is noted to be status pos t median sternotomy. There is a nasogastric tube with the tip projected over the mid stomach. There i s a bladder catheter. The bony structures are intact. CONCLUSION: Unremarkable bowel gas pattern. Sanya Cavazos MD on October 07, 2016 at 9:24 Board Certified Radiologist. This report was verified electronically.
[2016-10-07] MEDS: FAMOTIDINE 20 MG TAB NG SCH (09:28)
[2016-10-07] MEDS: APIXABAN 5 MG TABLET PO SCH ×2 (09:28→21:00)
[2016-10-07] MEDS: ASPIRIN EC 81 MG TABEC PO SCH (09:28)
[2016-10-07] MEDS: LINEZOLID 600 MG TAB PO SCH (09:28)
[2016-10-07] MEDS: SODIUM CHLORIDE 0.9% FLUSH 10 ML FLUSH IV FLUSH SCH ×2 (09:29→21:00)
[2016-10-07] MEDS: LABETALOL HCL 100 MG TAB PO SCH ×3 (09:29→18:36)
[2016-10-07] MEDS: SODIUM CHLOR 0.9% 1000 ML INJ 1,000 ML IV SCH (09:32)
[2016-10-07] MEDS: METOCLOPRAMIDE HCL 10 MG/2 ML VIAL IV PUSH SCH ×3 (09:32→22:28)
[2016-10-07] MEDS: hydrALAZINE HCL 20 MG/ML VIAL IV PUSH PRN (10:46)
--- NOTE | 2016-10-07 10:59 | HHI.IDPN ---
Note Infectious Disease Note Patient on the vent and sedated. Sedation being decreased. Opens eyes. Possibly will have trach done. No fever. Twitching left shoulder. Sputum culture showing nl jayna. Intubated 10/03. PAST MEDICAL HISTORY 1. Coronary artery disease. 2. History of atrial fibrillation. 3. History of aortic aneurysm. 4. Bladder cancer treated with cystectomy. 5. Coronary artery bypass graft surgery. 6. Colon cancer history. 7. Peripheral vascular disease. 8. Hypertension. 9. History of transurethral resection of bladder tumor. 10.History of abdominal aortic aneurysm repair. ALLERGIES 1. SIMVASTATIN. 2. PRAVASTATIN. 3. ATORVASTATIN. ANTIBIOTICS 1. Zyvox. 2. Meropenem. OBJECTIVE: Vital Signs Date Time Temp Pulse Resp B/P (MAP) Pulse Ox O2 Delivery O2 Flow Rate FiO2 10/07/16 09:05 98 40 10/07/16 05:30 95 40 10/07/16 04:00 40 10/07/16 04:00 97.4 68 16 140/85 (103) 98 10/07/16 04:00 68 10/07/16 00:05 95 40 10/07/16 00:00 40 10/06/16 23:00 70 10/06/16 23:00 97.8 71 18 135/75 (95) 98 10/06/16 20:30 97 40 10/06/16 20:00 40 10/06/16 19:00 70 10/06/16 19:00 96 Mechanical Ventilator 40 10/06/16 19:00 97.5 71 18 135/75 (95) 98 10/06/16 16:20 93 40 10/06/16 16:00 40 10/06/16 15:00 97.5 79 17 131/78 (95) 94 10/06/16 15:00 78 10/06/16 13:06 92 40 10/06/16 12:00 40 10/06/16 11:00 98.0 74 18 113/68 (83) 94 10/06/16 11:00 74 Laboratory Tests Test 10/06/16 04:43 10/07/16 04:30 White Blood Count 11.1 TH/MM3 11.4 TH/MM3 Red Blood Count 3.31 MIL/MM3 3.63 MIL/MM3 Hemoglobin 9.8 GM/DL 10.6 GM/DL Hematocrit 30.7 % 33.6 % Mean Corpuscular Volume 92.7 FL 92.6 FL Mean Corpuscular Hemoglobin 29.6 PG 29.2 PG Mean Corpuscular Hemoglobin Concent 32.0 % 31.5 % Red Cell Distribution Width 16.1 % 16.4 % Platelet Count 302 TH/MM3 296 TH/MM3 Mean Platelet Volume 7.5 FL 8.0 FL Neutrophils (%) (Auto) 92.0 % Lymphocytes (%) (Auto) 4.0 % Monocytes (%) (Auto) 3.8 % Eosinophils (%) (Auto) 0.0 % Basophils (%) (Auto) 0.2 % Neutrophils # (Auto) 10.3 TH/MM3 Lymphocytes # (Auto) 0.4 TH/MM3 Monocytes # (Auto) 0.4 TH/MM3 Eosinophils # (Auto) 0.0 TH/MM3 Basophils # (Auto) 0.0 TH/MM3 CBC Comment DIFF FINAL Differential Comment Laboratory Tests Test 10/06/16 04:43 10/07/16 04:30 10/07/16 08:00 Blood Urea Nitrogen 104 MG/DL 106 MG/DL Creatinine 2.12 MG/DL 1.57 MG/DL Random Glucose 230 MG/DL 125 MG/DL Total Protein 6.2 GM/DL 6.3 GM/DL Albumin 2.3 GM/DL 2.5 GM/DL Calcium Level 8.2 MG/DL 9.0 MG/DL Phosphorus Level 6.0 MG/DL 4.7 MG/DL Magnesium Level 2.6 MG/DL 2.9 MG/DL Alkaline Phosphatase 79 U/L 60 U/L Aspartate Amino Transf (AST/SGOT) 17 U/L 15 U/L Alanine Aminotransferase (ALT/SGPT) 26 U/L 25 U/L Total Bilirubin 0.3 MG/DL 0.4 MG/DL Sodium Level 136 MEQ/L 142 MEQ/L Potassium Level 4.8 MEQ/L 4.9 MEQ/L Chloride Level 97 MEQ/L 98 MEQ/L Carbon Dioxide Level 31.8 MEQ/L 35.6 MEQ/L Anion Gap 7 MEQ/L 8 MEQ/L Estimat Glomerular Filtration Rate 31 ML/MIN 43 ML/MIN Lactic Acid Level 1.5 mmol/L Direct Bilirubin 0.1 MG/DL Indirect Bilirubin 0.3 MG/DL Ammonia 12 MCMOL/L Total Creatine Kinase 51 U/L Amylase Level 61 U/L Lipase 155 U/L IMAGING: Abdomen X-Ray 10/07/16 0000 Signed Impressions: Service Date/Time: September 08:32 - CONCLUSION: Unremarkable bowel gas pattern. Sanya Cavazos MD Chest X-Ray 10/06/16 0600 Signed Impressions: Service Date/Time: Thursday, October 06, 2016 04:47 - CONCLUSION: Improvement in the interstitial and airspace opacities bilaterally. Jarad Delgado MD Chest X-Ray 10/05/16 1800 Signed Impressions: Service Date/Time: Wednesday, October 05, 2016 18:11 - CONCLUSION: 1. Improving bilateral subcutaneous emphysema. 2. There continues to be bilateral interstitial pulmonary infiltrates which are about the same or mildly increased compared to the prior study. Kodi Ashraf MD PHYSICAL EXAMINATION GENERAL: On the vent. NAD. HEENT: Sclera is non-icteric. Oropharynx mucosa moist. NECK: No swelling or adenopathy. LUNGS: Basilar rhonchi. HEART: Nl S1S2, No audible murmur, rub or gallop. ABDOMEN: Bowel sounds present. Soft. EXTREMITIES: No clubbing, no cyanosis. no edema. SKIN: No rash. NEUROLOGIC: Opens eyes. No other meaningful responses. PSYCH: unable to assess - on the vent. IMPRESSION 1. Acute respiratory failure. 3rd intubation. 2. Bilateral lung infiltrates, - negative cultures. Pulmonary thinks amiodarone toxicity. 3. Leukocytosis. WBC improving. 4. Acute kidney disease. Receiving Hemodialysis. RECOMMENDATIONS Stop Meropenem since negative cultures. probably not pulmonary infection. stop Zyvox. Monitor clinical status. monitor temp. I will be off 10/08 to 10/24. Other ID MD covering. Sae Nova MD Oct 07, 2016 10:59
--- NOTE | 2016-10-07 11:36 | PD.CONS ---
cc: Alvin Souza MD HPI Service General Surgery Consult Requested By Dr. Romero Reason for Consult Tracheostomy tube placement Primary Care Physician Yaya Patrick M.D. History of Present Illness This is a 75-year-old male with a past medical history of coronary artery disease, hypertension, hyperlipidemia, colon cancer, bladder cancer, myocardial infarction, CABG and CVA. The patient had a CABG on August 27 and was discharged in stable condition. Postoperatively he had some left-sided weakness s/p CVA. He came back to the Emergency Department on September 09 for evaluation of right- sided weakness. He states he was trying to pickling solution maker his medication and was unable to hold onto the bottle with his right hand. His hospitalization has been complicated by chronic kidney disease and fluid overload. It was attempted to manage this with BiPAP but was not able to maintain his oxygenation. His work of breathing increased and he was subsequently intubated. During this time he has been intubated and extubated a total of 3 times. The patient is not able to protect his airway. A General Surgery consultation has been requested for tracheostomy tube placement. Review of Systems ROS Limitations: Clinical Condition, Intubated Past Family Social History Past Medical History Coronary artery disease Hypertension Hyperlipidemia Colon cancer Bladder cancer Myocardial infarction CVA Past Surgical History CABG Cardiac ablation Colectomy Carotid endarterectomy Bladder cancer removal Reported Medications Eliquis Metoprolol Aspirin Oxycodone Xanax Dulcolax Multivitamin Allergies: Coded Allergies: atorvastatin (Verified Allergy, Severe, back pain and chest pain, 09/21/16) PATIENT REPORTS HE CAN NOT TAKE ANY STATINS PERIOD. HE LOSES USE OF HIS LEGS pantoprazole (Verified Allergy, Severe, INTERSTITIAL NEPHRITIS, 09/25/16) pravastatin (Verified Allergy, Severe, 09/21/16) PATIENT REPORTS HE CAN NOT TAKE ANY STATINS PERIOD. HE LOSES USE OF HIS LEGS simvastatin (Verified Allergy, Severe, body aches, 09/21/16) PATIENT REPORTS HE CAN NOT TAKE ANY STATINS PERIOD. HE LOSES USE OF HIS LEGS Active Ordered Medications Current Medications Medications (Trade) Dose Ordered Sig/Awilda Route Start Time Stop Time Status Last Admin (NS Flush) 2 ml UNSCH PRN IV FLUSH 09/09/16 00:45 (NS Flush) 2 ml BID IV FLUSH 09/09/16 09:00 10/07/16 09:29 (Narcan Inj) 0.4 mg UNSCH PRN IV 09/09/16 00:45 (Pill Splitter) 1 ea UNSCH PRN OTHER 09/09/16 14:00 (Eliquis) 5 mg BID PO 09/10/16 09:00 10/07/16 09:28 (Catapres) 0.1 mg Q6H PRN PO 09/11/16 14:30 09/19/16 23:02 (Lopressor Inj) 5 mg Q2HR PRN IV PUSH 09/16/16 14:00 09/26/16 05:00 (Apresoline Inj) 10 mg Q6HR PRN IV PUSH 09/16/16 12:45 10/07/16 10:46 (Racepinephrine 2.25% Neb) 0.5 ml Q1HR NEB PRN NEB 09/17/16 17:15 09/17/16 18:02 (Dulcolax Supp) 10 mg DAILY PRN RECTAL 09/19/16 13:30 (Albuterol Neb) 2.5 mg Q2HR NEB PRN NEB 09/21/16 12:00 10/02/16 21:16 (Phoslo) 667 mg TID PO 09/21/16 18:00 10/07/16 09:27 (Peridex 0.12% Liq) 15 ml BID@08,20 MT 09/22/16 20:00 10/07/16 09:29 (Ecotrin Ec) 81 mg DAILY PO 09/30/16 09:00 10/07/16 09:28 (Trandate) 100 mg TID PO 09/30/16 13:00 10/07/16 09:29 (NovoLOG SUPPLEMENTAL SCALE) 1 Q6HR SQ 10/01/16 13:15 10/06/16 06:00 (D50w (Vial) Inj) 50 ml UNSCH PRN IV PUSH 10/01/16 13:15 (Glucagon Inj) 1 mg UNSCH PRN OTHER 10/01/16 13:15 (Singulair) 10 mg HS PO 10/02/16 21:00 10/06/16 21:46 (Lasix Inj) 40 mg UNSCH IV 10/02/16 09:30 10/02/16 22:59 (Tears Naturale Opth Soln) 1 drop Q8HR EACH EYE 10/03/16 14:00 10/07/16 06:19 Propofol 100 ml @ 2.646 mls/ hr Q24H PRN IV 10/03/16 11:21 10/07/16 06:19 (Pepcid) 20 mg DAILY NG 10/04/16 09:00 10/07/16 09:28 (Colace Liq) 100 mg Q12HR NG 10/04/16 09:00 10/06/16 08:07 (Senna Liq) 8.8 mg BID NG 10/04/16 09:00 10/06/16 08:07 (NS Flush) DAILY IVF 10/04/16 12:45 10/06/16 08:09 (NS Flush) UNSCH PRN IVF 10/04/16 12:45 (Miralax) 17 gm BID NG 10/05/16 09:00 10/06/16 08:08 (Peridex 0.12% Liq) 15 ml BID@08,20 MT 10/07/16 08:00 (SoluMEDROL INJ) 40 mg BID IV PUSH 10/07/16 09:00 10/07/16 09:28 Sodium Chloride 1,000 ml @ 50 mls/hr Q20H IV 10/07/16 08:00 10/07/16 09:32 (Reglan Inj) 5 mg Q8HR IV PUSH 10/07/16 08:00 10/07/16 09:32 Dexmedetomidine HCl 200 mcg/ Sodium Chloride 52 ml @ 4.64 mls/hr TITRATE PRN IV 10/07/16 11:15 UNV (Trandate Inj) 10 mg Q1HR PRN IV PUSH 10/07/16 11:15 UNV (Nitroglycerin 2% Oint) 2 inch Q6HR PRN TOPICAL 10/07/16 11:15 UNV (Duoneb Neb) 1 ampule Q6HR NEB NEB 10/07/16 16:00 UNV Family History Noncontributory Social History Positive tobacco use 30 years ago Physical Exam Vital Signs Vital Signs Date Time Temp Pulse Resp B/P (MAP) Pulse Ox O2 Delivery O2 Flow Rate FiO2 10/07/16 09:05 98 40 10/07/16 07:00 40 10/07/16 07:00 95 Mechanical Ventilator 40 10/07/16 07:00 74 10/07/16 07:00 97.6 71 15 148/89 (108) 95 10/07/16 05:30 95 40 10/07/16 04:00 40 10/07/16 04:00 97.4 68 16 140/85 (103) 98 10/07/16 04:00 68 10/07/16 00:05 95 40 10/07/16 00:00 40 10/06/16 23:00 70 10/06/16 23:00 97.8 71 18 135/75 (95) 98 10/06/16 20:30 97 40 10/06/16 20:00 40 10/06/16 19:00 70 10/06/16 19:00 96 Mechanical Ventilator 40 10/06/16 19:00 97.5 71 18 135/75 (95) 98 10/06/16 16:20 93 40 10/06/16 16:00 40 10/06/16 15:00 97.5 79 17 131/78 (95) 94 10/06/16 15:00 78 10/06/16 13:06 92 40 10/06/16 12:00 40 Physical Exam GENERAL: A 75-year-old male critically ill resting in bed on mechanical ventilator. SKIN: Warm and dry. HEAD: Atraumatic. Normocephalic. EYES: Pupils equal and round. No scleral icterus. No injection or drainage. ENT: No nasal bleeding or discharge. Mucous membranes pink and moist. NECK: Trachea midline and palpable. CARDIOVASCULAR: Regular rate and rhythm. RESPIRATORY: No accessory muscle use. Clear to auscultation. Breath sounds equal bilaterally. GASTROINTESTINAL: Abdomen soft, non-tender, nondistended.. MUSCULOSKELETAL: Extremities without clubbing, cyanosis, or edema. No obvious deformities. NEUROLOGICAL: Unable to examine. PSYCHIATRIC: Unable to examine. Laboratory Laboratory Tests Test 10/06/16 17:05 10/07/16 04:30 10/07/16 08:00 Stool C. difficile Toxin (PCR) NEGATIVE Stl C. difficile Toxin Epiderm 027 PRESUMPTIVE NEGATIVE White Blood Count 11.4 Red Blood Count 3.63 Hemoglobin 10.6 Hematocrit 33.6 Mean Corpuscular Volume 92.6 Mean Corpuscular Hemoglobin 29.2 Mean Corpuscular Hemoglobin Concent 31.5 Red Cell Distribution Width 16.4 Platelet Count 296 Mean Platelet Volume 8.0 Prothrombin Time 11.7 Prothromb Time International Ratio 1.1 Activated Partial Thromboplast Time 23.8 Blood Urea Nitrogen 106 Creatinine 1.57 Random Glucose 125 Calcium Level 9.0 Phosphorus Level 4.7 Magnesium Level 2.9 Sodium Level 142 Potassium Level 4.9 Chloride Level 98 Carbon Dioxide Level 35.6 Anion Gap 8 Estimat Glomerular Filtration Rate 43 Lactic Acid Level 1.5 Total Bilirubin 0.4 Direct Bilirubin 0.1 Indirect Bilirubin 0.3 Aspartate Amino Transf (AST/SGOT) 15 Alanine Aminotransferase (ALT/SGPT) 25 Alkaline Phosphatase 60 Ammonia 12 Total Creatine Kinase 51 Total Protein 6.3 Albumin 2.5 Amylase Level 61 Lipase 155 Date/Time Source Procedure Growth Status 10/03/16 13:35 Blood Peripheral Aerobic Blood Culture - Preliminary NO GROWTH IN 4 DAYS Resulted 10/03/16 13:35 Blood Peripheral Anaerobic Blood Culture - Preliminary NO GROWTH IN 4 DAYS Resulted 09/12/16 01:00 Stool Stool Stool Occult Blood (JAME) - Final HEMOCCULT NEGATIVE Complete 10/03/16 12:49 Nasal Washing Influenza Types A,B Antigen (JAME) - Final NEGATIVE FOR FLU A AND B ANTIGEN.... Complete 10/03/16 12:20 Urine Catheterized Urine Streptococcus pneumoniae Antigen (M - Final PRESUMPTIVE NEGATIVE FOR STREPTOCOCCU... Complete Result Diagram: 10/12/16 0350 10/11/16 1100 Assessment and Plan Assessment and Plan 75 year old male s/p CABG with ventilator-dependent respiratory failure in need of tracheostomy tube -SBT today -Has failed extubation three times during this hospitalization -Will be available next week if patient needs tracheostomy tube placement -Thank you for this consult; Dr. Romero will be in contact if tracheostomy tube placement is required -Discussed with at bedside Discussed Condition With Dr. Harley Hartley Attending Statement patient seen and examined as above acute respiratory failure needs trach short trachea will likely plan for bedside trach possible OR next week Attestation The exam, history, and the medical decision-making described in the above note were completed with the assistance of the mid-level provider. I reviewed and agree with the findings presented. I attest that I had a [id number] encounter with the patient on the same day, and personally performed and documented my assessment and findings in the medical record. Herlinda Rivera Oct 07, 2016 11:36 Alvin Souza MD Oct 12, 2016 10:50
--- NOTE | 2016-10-07 12:54 | PD.CARD.PN ---
Subjective Subjective Remarks Intubated, sedated, FiO2 40%, 5 PEEP Objective Medications Active Medications Albuterol/ Ipratropium (Duoneb Neb) 1 ampule Q6HR NEB NEB; Start 10/07/16 at 16 :00 Chlorhexidine Gluconate (Peridex 0.12% Liq) 15 ml BID@08,20 MT; Start 10/07/16 at 08:00 Dexmedetomidine HCl 200 mcg/ Sodium Chloride 52 ml @ 4.64 mls/hr TITRATE PRN IV; Start 10/07/16 at 13:00 Labetalol HCl (Trandate Inj) 10 mg Q1HR PRN IV PUSH; Start 10/07/16 at 13:00 Methylprednisolone Sodium Succinate (SoluMEDROL INJ) 40 mg BID IV PUSH Last administered on 10/07/16 09:28; Admin Dose 40 MG; Start 10/07/16 at 09:00 Metoclopramide HCl (Reglan Inj) 5 mg Q8HR IV PUSH Last administered on 09:32; Admin Dose 5 MG; Start 10/07/16 at 08:00 Nitroglycerin (Nitroglycerin 2% Oint) 2 inch Q6HR PRN TOPICAL; Start 10/07/16 at 13:00 Sodium Chloride 1,000 ml @ 50 mls/hr Q20H IV Last administered on 10/07/16 09: 32; Admin Dose 50 MLS/HR; Start 10/07/16 at 08:00 Vital Signs / I&O Vital Signs Date Time Temp Pulse Resp B/P (MAP) Pulse Ox O2 Delivery O2 Flow Rate FiO2 10/07/16 12:15 92 40 10/07/16 11:00 40 10/07/16 11:00 97.8 87 20 159/98 (118) 93 10/07/16 11:00 88 10/07/16 11:00 95 Mechanical Ventilator 40 10/07/16 09:05 98 40 10/07/16 07:00 40 10/07/16 07:00 95 Mechanical Ventilator 40 10/07/16 07:00 74 10/07/16 07:00 97.6 71 15 148/89 (108) 95 10/07/16 05:30 95 40 10/07/16 04:00 40 10/07/16 04:00 97.4 68 16 140/85 (103) 98 10/07/16 04:00 68 10/07/16 00:05 95 40 10/07/16 00:00 40 10/06/16 23:00 70 10/06/16 23:00 97.8 71 18 135/75 (95) 98 10/06/16 20:30 97 40 10/06/16 20:00 40 10/06/16 19:00 70 10/06/16 19:00 96 Mechanical Ventilator 40 10/06/16 19:00 97.5 71 18 135/75 (95) 98 10/06/16 16:20 93 40 10/06/16 16:00 40 10/06/16 15:00 97.5 79 17 131/78 (95) 94 10/06/16 15:00 78 10/06/16 13:06 92 40 I/O 10/06/16 10/06/16 10/06/16 10/07/16 10/07/16 10/07/16 07:00 15:00 23:00 07:00 15:00 23:00 Intake Total 830 ml 689 ml 435 ml 34 ml Output Total 900 ml 450.0 ml 1535.0 ml 2075.0 ml Balance -70 ml -450.0 ml -846.0 ml -1640.0 ml 34 ml Intake Oral 0 ml IV Total 383 ml 334 ml 400 ml 34 ml Tube Feeding 387 ml 295 ml 35 ml Tube Irrigant 60 ml 60 ml Output Urine Total 900 ml 1035 ml 1125 ml Gastric Drainage Total 725 ml Tube Feeding Residual Discard 450.0 ml 500.0 ml 225.0 ml # Bowel Movements 1 2 2 Physical Exam GENERAL: Intubated, sedated SKIN: Warm and dry. HEAD: Normocephalic. EYES: No scleral icterus. No injection or drainage. NECK: Supple, trachea midline. No JVD or lymphadenopathy. CARDIOVASCULAR: Regular rate and rhythm without murmurs, gallops, or rubs. RESPIRATORY: Breath sounds equal bilaterally. No accessory muscle use. GASTROINTESTINAL: Abdomen soft, non-tender, nondistended. MUSCULOSKELETAL: No cyanosis, or edema. Laboratory Laboratory Tests Test 10/06/16 17:05 10/07/16 04:30 10/07/16 08:00 Stool C. difficile Toxin (PCR) NEGATIVE Stl C. difficile Toxin Epiderm 027 PRESUMPTIVE NEGATIVE White Blood Count 11.4 TH/MM3 Red Blood Count 3.63 MIL/MM3 Hemoglobin 10.6 GM/DL Hematocrit 33.6 % Mean Corpuscular Volume 92.6 FL Mean Corpuscular Hemoglobin 29.2 PG Mean Corpuscular Hemoglobin Concent 31.5 % Red Cell Distribution Width 16.4 % Platelet Count 296 TH/MM3 Mean Platelet Volume 8.0 FL Prothrombin Time 11.7 SEC Prothromb Time International Ratio 1.1 RATIO Activated Partial Thromboplast Time 23.8 SEC Blood Urea Nitrogen 106 MG/DL Creatinine 1.57 MG/DL Random Glucose 125 MG/DL Calcium Level 9.0 MG/DL Phosphorus Level 4.7 MG/DL Magnesium Level 2.9 MG/DL Sodium Level 142 MEQ/L Potassium Level 4.9 MEQ/L Chloride Level 98 MEQ/L Carbon Dioxide Level 35.6 MEQ/L Anion Gap 8 MEQ/L Estimat Glomerular Filtration Rate 43 ML/MIN Lactic Acid Level 1.5 mmol/L Total Bilirubin 0.4 MG/DL Direct Bilirubin 0.1 MG/DL Indirect Bilirubin 0.3 MG/DL Aspartate Amino Transf (AST/SGOT) 15 U/L Alanine Aminotransferase (ALT/SGPT) 25 U/L Alkaline Phosphatase 60 U/L Ammonia 12 MCMOL/L Total Creatine Kinase 51 U/L Total Protein 6.3 GM/DL Albumin 2.5 GM/DL Amylase Level 61 U/L Lipase 155 U/L Assessment and Plan Problem List: (1) History of CVA (cerebrovascular accident) ICD Codes: Z86.73 - Personal history of transient ischemic attack (TIA), and cerebral infarction without residual deficits Status: Acute (2) CKD (chronic kidney disease) stage 3, GFR 30-59 ml/min ICD Codes: N18.3 - Chronic kidney disease, stage 3 (moderate) Status: Acute (3) S/P CABG x 3 ICD Codes: Z95.1 - Presence of aortocoronary bypass graft Status: Acute (4) Atrial fibrillation ICD Codes: I48.91 - Unspecified atrial fibrillation (5) Acute hypoxemic respiratory failure ICD Codes: J96.01 - Acute respiratory failure with hypoxia Status: Acute (6) Hypertension ICD Codes: I10 - Essential (primary) hypertension Status: Acute (7) Thoracic aortic aneurysm without rupture ICD Codes: I71.2 - Thoracic aortic aneurysm, without rupture Status: Acute Assessment and Plan On the vent, continue weaning as tolerated. Off amio due to possible pulmonary toxicity. Continue steroids. Monitor renal fx. Rhythm remains stable sinus. Continue ICU care. Seen by Dr. nEcinas for pulmonary medicine. No new cardiac issues. Dr. Moran will take over cardiology care. Michael Tompkins MD Oct 07, 2016 12:54
[2016-10-07] MEDS ORDERED: NITROGLYCERIN 2% OINT 1 GM PACKET TOPICAL PRN (13:00)
[2016-10-07] MEDS ORDERED: DEXMEDETOMIDINE INJ 200 MCG in SODIUM CHLORIDE 0.9% INJ 50 ML IV PRN (13:00)
[2016-10-07] MEDS ORDERED: levETIRAcetam INJ 500 MG in SODIUM CHLORIDE 0.9% INJ 100 ML IV ONE (13:45)
[2016-10-07] MEDS ORDERED: LORazepam 2 MG/ML VIAL ONE (13:48)
--- NOTE | 2016-10-07 15:21 | PD.CAR.PN ---
CVT Progress Note Subjective/Hospital Course: 10/01 remains on high flow 02 poor reserve, continue diuresis , antibiotics/ OOB as tolerated 10/02/16 continues on high flow O2 No c/o 10/04 pt reintubated yesterday , 2/ resp distress now sedated on vent, on 40% fio2 renal function stable, non-oliguric 10/05 pt remains intubated 3rd time on 40% FI02 CT chest : groundglass appearance bilateral infiltrates bullous emphysema, interstitial edema / Dr Encinas spoke with Dr Zamora regarding possible open lung bx: RE ? 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 Meropenem, linezolid and famotidine all discontinued. Loaded with Keppra and scheduled 500 mg IV twice a day. Neurology consult for management of antiepileptics. MRI brain pending is also agreeable for tracheostomy placement remains on vent, not tolerating tube feeding Objective: GENERAL: orally intubated sedated on vent SKIN: Warm and dry. HEAD: Atraumatic. Normocephalic. EYES: Pupils equal and round. No scleral icterus. No injection or drainage. ENT: No nasal bleeding or discharge. Mucous membranes pink and moist. NECK: Trachea midline. No JVD. CARDIOVASCULAR: Regular rate and rhythm. RESPIRATORY: No accessory muscle use. coarse bilateral breath sounds Breath sounds equal bilaterally. GASTROINTESTINAL: Abdomen soft, non-tender, nondistended. Hepatic and splenic margins not palpable. MUSCULOSKELETAL: Extremities without clubbing, cyanosis, general edema. No obvious deformities. NEUROLOGICAL: sedated rass -2 Vital Signs Date Time Temp Pulse Resp B/P (MAP) Pulse Ox O2 Delivery O2 Flow Rate FiO2 10/07/16 12:15 92 40 10/07/16 11:00 40 10/07/16 11:00 97.8 87 20 159/98 (118) 93 10/07/16 11:00 88 10/07/16 11:00 95 Mechanical Ventilator 40 10/07/16 09:05 98 40 10/07/16 07:00 40 10/07/16 07:00 95 Mechanical Ventilator 40 10/07/16 07:00 74 10/07/16 07:00 97.6 71 15 148/89 (108) 95 10/07/16 05:30 95 40 10/07/16 04:00 40 10/07/16 04:00 97.4 68 16 140/85 (103) 98 10/07/16 04:00 68 10/07/16 00:05 95 40 10/07/16 00:00 40 10/06/16 23:00 70 10/06/16 23:00 97.8 71 18 135/75 (95) 98 10/06/16 20:30 97 40 10/06/16 20:00 40 10/06/16 19:00 70 10/06/16 19:00 96 Mechanical Ventilator 40 10/06/16 19:00 97.5 71 18 135/75 (95) 98 10/06/16 16:20 93 40 10/06/16 16:00 40 Labs: Laboratory Tests Test 10/07/16 04:30 10/07/16 08:00 White Blood Count 11.4 TH/MM3 (4.0-11.0) Red Blood Count 3.63 MIL/MM3 (4.50-5.90) Hemoglobin 10.6 GM/DL (13.0-17.0) Hematocrit 33.6 % (39.0-51.0) Mean Corpuscular Volume 92.6 FL (80.0-100.0) Mean Corpuscular Hemoglobin 29.2 PG (27.0-34.0) Mean Corpuscular Hemoglobin Concent 31.5 % (32.0-36.0) Red Cell Distribution Width 16.4 % (11.6-17.2) Platelet Count 296 TH/MM3 (150-450) Mean Platelet Volume 8.0 FL (7.0-11.0) Prothrombin Time 11.7 SEC (9.8-11.6) Prothromb Time International Ratio 1.1 RATIO Activated Partial Thromboplast Time 23.8 SEC (24.3-30.1) Blood Urea Nitrogen 106 MG/DL (7-18) Creatinine 1.57 MG/DL (0.60-1.30) Random Glucose 125 MG/DL (74-106) Calcium Level 9.0 MG/DL (8.5-10.1) Phosphorus Level 4.7 MG/DL (2.5-4.9) Magnesium Level 2.9 MG/DL (1.5-2.5) Sodium Level 142 MEQ/L (136-145) Potassium Level 4.9 MEQ/L (3.5-5.1) Chloride Level 98 MEQ/L (98-107) Carbon Dioxide Level 35.6 MEQ/L (21.0-32.0) Anion Gap 8 MEQ/L (5-15) Estimat Glomerular Filtration Rate 43 ML/MIN (>89) Lactic Acid Level 1.5 mmol/L (0.4-2.0) Total Bilirubin 0.4 MG/DL (0.2-1.0) Direct Bilirubin 0.1 MG/DL (0.0-0.2) Indirect Bilirubin 0.3 MG/DL (0.0-0.8) Aspartate Amino Transf (AST/SGOT) 15 U/L (15-37) Alanine Aminotransferase (ALT/SGPT) 25 U/L (12-78) Alkaline Phosphatase 60 U/L (45-117) Ammonia 12 MCMOL/L (11-32) Total Creatine Kinase 51 U/L (39-308) Total Protein 6.3 GM/DL (6.4-8.2) Albumin 2.5 GM/DL (3.4-5.0) Amylase Level 61 U/L (25-115) Lipase 155 U/L (73-393) Result Diagram: 10/07/1642910/07/16429 Telemetry: afib (1) History of CVA (cerebrovascular accident) (2) CKD (chronic kidney disease) stage 3, GFR 30-59 ml/min Plan: stable indices (3) S/P CABG x 3 (4) Atrial fibrillation Plan: rate controlled, on eliquis ( will need to be held prior to trach ) (5) Acute hypoxemic respiratory failure Plan: reintubated on vent, CCM following may need trach soon continue supportive care (6) Hypertension (7) Thoracic aortic aneurysm without rupture Casandra Barton Oct 07, 2016 15:21
[2016-10-07] MEDS: SUCRALFATE 1 GM/10 ML CUP PO SCH ×2 (16:00→21:00)
[2016-10-07] MEDS ORDERED: PROPOFOL 1000 MG/100 ML IV PRN (17:00)
--- NOTE | 2016-10-07 17:31 | HHI.PR ---
Subjective Remarks Intubated and on a ventilator , with FIo2 at 40 % Chest X Ray is better O2 sats 95 on 40 % FIO2. More awake with sedation off.Good output. Objective Vital Signs Date Time Temp Pulse Resp B/P (MAP) Pulse Ox O2 Delivery O2 Flow Rate FiO2 10/07/16 12:15 92 40 10/07/16 11:00 40 10/07/16 11:00 97.8 87 20 159/98 (118) 93 10/07/16 11:00 88 10/07/16 11:00 95 Mechanical Ventilator 40 10/07/16 09:05 98 40 10/07/16 07:00 40 10/07/16 07:00 95 Mechanical Ventilator 40 10/07/16 07:00 74 10/07/16 07:00 97.6 71 15 148/89 (108) 95 10/07/16 05:30 95 40 10/07/16 04:00 40 10/07/16 04:00 97.4 68 16 140/85 (103) 98 10/07/16 04:00 68 10/07/16 00:05 95 40 10/07/16 00:00 40 10/06/16 23:00 70 10/06/16 23:00 97.8 71 18 135/75 (95) 98 10/06/16 20:30 97 40 10/06/16 20:00 40 10/06/16 19:00 70 10/06/16 19:00 96 Mechanical Ventilator 40 10/06/16 19:00 97.5 71 18 135/75 (95) 98 I/O 10/06/16 10/06/16 10/06/16 10/07/16 10/07/16 10/07/16 07:00 15:00 23:00 07:00 15:00 23:00 Intake Total 830 ml 689 ml 435 ml 34 ml Output Total 900 ml 450.0 ml 1535.0 ml 2075.0 ml Balance -70 ml -450.0 ml -846.0 ml -1640.0 ml 34 ml Intake Oral 0 ml IV Total 383 ml 334 ml 400 ml 34 ml Tube Feeding 387 ml 295 ml 35 ml Tube Irrigant 60 ml 60 ml Output Urine Total 900 ml 1035 ml 1125 ml Gastric Drainage Total 725 ml Tube Feeding Residual Discard 450.0 ml 500.0 ml 225.0 ml # Bowel Movements 1 2 2 Result Diagram: 10/07/1642910/07/16429 Objective Remarks GENERAL: This moderately overweight elderly man ,Intubated on the vent. HEENT: Head is normocephalic. Pupils are reactive. Tongue is moist. Throat clear NECK: No venous distention.Trachea is midline. No thyroid enlargement. CHEST: Equal movements with diminished breath sounds at the bases with bibasilar crackles.Occ Wheeze. HEART: Sounds are irregular S1-S2. No murmur. ABDOMEN: Soft. Protuberant without masses. No organomegaly. EXTREMITIES: Decreased pulses. .Edema 1 + SKIN: warm. Neuro : lethargic. Assessment and Plan Assessment and Plan IMPRESSION 1. Acute respiratory failure.Resolving 2. Fluid overload status with pulmonary edema. 3. Acute kidney failure.Resolving 4. History of cerebrovascular accident. 5. Bibasilar atelectasis with possible pneumonia. 6. History of colon cancer and bladder cancer. 7. Possible Hypersensitivity Pneumonia or Edema Plan : 1. 2. FIO2 at 40 %and wean to keep sat >92. 3. Nebs qid ,Duoneb. 4.CPAP trial today and ABG. 5. Antibiotics per ID 6. Lasix 20 mg IV daily 7. Chest Xray in am 8. CBC,BMP 9. Hold trach for now. 10. Taper solumedrol IV 40 mg Q12H. Jaime Encinas MD Oct 07, 2016 17:31
--- NOTE | 2016-10-07 20:28 | HHI.PR ---
Subjective Remarks on vent after sob on bipap was up and standin with PT few days ago Objective Vital Signs Date Time Temp Pulse Resp B/P (MAP) Pulse Ox O2 Delivery O2 Flow Rate FiO2 10/07/16 15:00 98.3 84 23 154/95 (114) 95 10/07/16 15:00 95 Mechanical Ventilator 50 10/07/16 15:00 84 10/07/16 15:00 50 10/07/16 12:15 92 40 10/07/16 11:00 40 10/07/16 11:00 97.8 87 20 159/98 (118) 93 10/07/16 11:00 88 10/07/16 11:00 95 Mechanical Ventilator 40 10/07/16 09:05 98 40 10/07/16 07:00 40 10/07/16 07:00 95 Mechanical Ventilator 40 10/07/16 07:00 74 10/07/16 07:00 97.6 71 15 148/89 (108) 95 10/07/16 05:30 95 40 10/07/16 04:00 40 10/07/16 04:00 97.4 68 16 140/85 (103) 98 10/07/16 04:00 68 10/07/16 00:05 95 40 10/07/16 00:00 40 10/06/16 23:00 70 10/06/16 23:00 97.8 71 18 135/75 (95) 98 10/06/16 20:30 97 40 I/O 10/06/16 10/06/16 10/06/16 10/07/16 10/07/16 10/07/16 07:00 15:00 23:00 07:00 15:00 23:00 Intake Total 830 ml 689 ml 435 ml 34 ml 205 ml Output Total 900 ml 450.0 ml 1535.0 ml 2075.0 ml 1025 ml Balance -70 ml -450.0 ml -846.0 ml -1640.0 ml 34 ml -820 ml Intake Oral 0 ml IV Total 383 ml 334 ml 400 ml 34 ml 105 ml Tube Feeding 387 ml 295 ml 35 ml Tube Irrigant 60 ml 60 ml 100 ml Output Urine Total 900 ml 1035 ml 1125 ml 825 ml Gastric Drainage Total 725 ml 200 ml Tube Feeding Residual Discard 450.0 ml 500.0 ml 225.0 ml # Bowel Movements 1 2 2 2 Result Diagram: 10/07/16 0430 10/07/160 Objective Remarks intubated move rue on own not follow commands on sedation some spontaneous left delt twitch Assessment and Plan Assessment and Plan imp no new spells esr 80 crp and kappa chains and lamda chains 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 shabbir neg on eliquis 5 bid now b12 shots DONE renal issues i ordered some inflammation labs SOME ABN HERE PLEASE ADDRESS ABN KAPPA PROTEINS i dw med team today I WILL SIGNOFF again his vision change due to oleft occipital region cva he had on admission they will do heme consult for above esr inc and abn proteins 10/07/16 had rue jerks and eeg shows some bilat pled like almost at time sharps i added dil and vimpat to keppra will recheck mri and eeg follow levels Reymundo Jeffries MD Oct 07, 2016 20:28
[2016-10-07] MEDS ORDERED: FOSPHENYTOIN SODIUM 500 MG PE/10 ML VIAL IM ONE (20:30)
[2016-10-07] MEDS: MONTELUKAST SODIUM 10 MG TAB PO SCH (21:00)
[2016-10-07] MEDS: levETIRAcetam INJ 500 MG in SODIUM CHLORIDE 0.9% INJ 100 ML IV SCH (21:00)
[2016-10-07] MEDS ORDERED: ATROPINE SULFATE 1 MG/10 ML SYRINGE ONE (21:27)
[2016-10-07] MEDS ORDERED: EPINEPHrine HCL (1:10,000) 1 MG/10 ML SYRINGE ONE (21:27)
[2016-10-07] MEDS ORDERED: FOSPHENYTOIN SODIUM 100 MG PE/2 ML VIAL IV SCH (22:00)
[2016-10-07 22:18] LABS: BICARBONATE 34.8 MEQ/L (21.0-32.0); MAGNESIUM 2.8 MG/DL (1.5-2.5); POTASSIUM 4.8 MEQ/L (3.5-5.1)
--- NOTE | 2016-10-07 22:55 | RADRPT ---
EXAM DATE/TIME: 10/07/2016 21:45 [facility] COMPARISON: MRI BRAIN W/O CONTRAST, September 10, 2016, 10:57. INDICATIONS : Hemorrhage. MEDICAL HISTORY : Hypertension. Cardiovascular disease Carcinoma, bladder. SURGICAL HISTORY : CABG Carotid endarterectomy. Coronary artery stent. Pacemaker placement and removal. AAA repair. ENCOUNTER: Subsequent ACUITY: 1 day PAIN SCORE: Nonresponsive. LOCATION: TECHNIQUE: Multiplanar, multisequence MRI of the brain was performed without contrast. FINDINGS: CEREBRUM: The ventricles are normal for age. There are few small areas of signal abnormality in the frontal an d parietal torrez-white junction regions and at the parietal-occipital region. These were present previ ously. New areas of infarction are not seen. No evidence of midline shift, mass lesion, hemorrhage or acute infarction. No extraaxial fluid collections are seen. The pituitary gland and suprasellar ci mondragon are normal in configuration. WHITE MATTER: There are numerous areas of focal signal denies seen throughout the cerebral and pontine white matter . POSTERIOR FOSSA: The cerebellum and brainstem are intact. The 4th ventricle is midline. The cerebellopontine angle is unremarkable. The cerebellar tonsils are normal in position. DIFFUSION IMAGING: No focal areas of restricted diffusion are seen. No evidence of acute infarction. EXTRACRANIAL: The visualized portions of the orbits and paranasal sinuses are unremarkable. There is increased sign al within the mastoid air cells bilaterally. CONCLUSION: 1. Residual small areas of infarction seen bilaterally. There are fewer areas of signal abnormality s een on the diffusion-weighted images on the current exam. New areas of infarction are not present. 2. Areas of demyelination throughout the cerebral and pontine white matter likely from small vessel i schemic change. 3. Fluid in the mastoid air cells. Jarad Cat MD on October 07, 2016 at 22:49 Board Certified Radiologist. This report was verified electronically.
[2016-10-08] VITALS (13 sets, daily range): BP systolic 93–156; BP diastolic 57–96; PULSE 71–91; RESP 18–23; TEMP 97.3–99.5; O2SAT 94–99
[2016-10-08] MEDS ORDERED: FOSPHENYTOIN SODIUM 500 MG PE/10 ML VIAL IM ONE (01:00)
[2016-10-08] MEDS: LACOSAMIDE INJ 100 MG in SODIUM CHLORIDE 0.9% INJ 100 ML IV SCH ×2 (01:41→12:23)
[2016-10-08] MEDS: RESP: ALBUTEROL 2.5 MG/IPRATROPIUM 0.5 MG NEB (SCH) NEB ×4 (03:36→21:06)
[2016-10-08] MEDS: SODIUM CHLOR 0.9% 1000 ML INJ 1,000 ML IV SCH (03:46)
--- NOTE | 2016-10-08 04:18 | RADRPT ---
EXAM DATE/TIME: 10/08/2016 03:51 [facility] COMPARISON: CHEST SINGLE AP, October 06, 2016, 4:47. INDICATIONS : Respiratory failure MEDICAL HISTORY : Myocardial infarction. Cardiovascular disease. Aneurysm, abdominal. SURGICAL HISTORY : CABG. Abdominal aortic aneurysm repair. cornary artery stent. ENCOUNTER: Subsequent ACUITY: 1 month PAIN SCORE: Non-responsive. LOCATION: Bilateral chest FINDINGS: Portable AP view of the chest demonstrates cardiac silhouette size is mildly enlarged in this patient post median sternotomy. ETT, right IJ line, and nasogastric tube remain present. Lungs are underinfl ated and there are bilateral interstitial and airspace opacities, stable from the prior study. No pne umothorax is present. There is supraclavicular soft tissue air bilaterally. CONCLUSION: Stable interstitial and airspace opacities bilaterally. Jarad Delgado MD on October 08, 2016 at 4:16 Board Certified Radiologist. This report was verified electronically.
[2016-10-08 04:58] LABS: AUTOMATED NEUTROPHIL # 10.4 TH/MM3 (1.8-7.7); BASOPHIL % 0.2 % (0.0-2.0); EOSINOPHIL # 0.1 TH/MM3 (0-0.4); EOSINOPHIL % 0.5 % (0.0-4.0); HEMATOCRIT 32.3 % (39.0-51.0); HEMO FLAGS DIFF FINAL; LYMPH % 13.9 % (9.0-44.0); LYMPHOCYTE # 1.9 TH/MM3 (1.0-4.8); MEAN CELL VOLUME 91.3 FL (80.0-100.0); MEAN CORPUSCULAR HEMOGLOBIN 29.4 PG (27.0-34.0); MEAN CORPUSCULAR HGB CONC 32.1 % (32.0-36.0); MONO % 9.9 % (0.0-8.0); NEUT % 75.5 % (16.0-70.0); PLATELET COUNT 286 TH/MM3 (150-450); RED BLOOD COUNT 3.54 MIL/MM3 (4.50-5.90); RED CELL DISTRIBUTION WIDTH 16.4 % (11.6-17.2); WHITE BLOOD COUNT 13.8 TH/MM3 (4.0-11.0)
[2016-10-08] MEDS: ARTIFICIAL TEARS OPTH SOLN 15 ML BTL EACH EYE SCH ×3 (05:36→21:17)
[2016-10-08] MEDS: FOSPHENYTOIN SODIUM 100 MG PE/2 ML VIAL IV SCH ×3 (05:39→21:16)
[2016-10-08] MEDS: METOCLOPRAMIDE HCL 10 MG/2 ML VIAL IV PUSH SCH ×3 (05:40→21:20)
[2016-10-08 06:00] LABS: BLOOD GAS BASE EXCESS 8.2 mmol/L (-2-2); BLOOD GAS CARBOXYHEMOGLOBIN 1.9 % (0-4); BLOOD GAS HCO3 33 mmol/L (22-26); BLOOD GAS METHEMOGLOBIN 1.4 % (0-2); BLOOD GAS O2 HGB SATURATION 90 % (90-100); BLOOD GAS OXYGEN CONTENT 13.7 Vol % (12.0-20.0); BLOOD GAS PCO2 53 mmHg (38-42); BLOOD GAS PO2 68 mmHg (61-120); BLOOD GAS TOTAL HGB 10.8 G/DL (12.0-16.0); TEMP CORR TO 98.6
[2016-10-08] MEDS: INSULIN ASPART SUPPLEMENTAL SCALE SQ SCH ×4 (06:00→17:30)
[2016-10-08 06:01] LABS: CRITICAL VALUE YES; DRAW SITE RT RADIAL; FIO2 50 %; NUMBER OF ARTERIAL PUNCTURES 2; OXYGEN DEVICE VENTILATOR; STAT NO; ULNAR PULSE PRESENT; VENT SETTINGS PRVC/AC
[2016-10-08 06:29] LABS: BICARBONATE 32.8 MEQ/L (21.0-32.0); POTASSIUM 4.3 MEQ/L (3.5-5.1)
--- NOTE | 2016-10-08 06:51 | HHI.CCPN ---
Subjective Remarks/Hospital Course 75 y/o man now about 4 weeks following CABG complicated by CVA. Presented back 08/28 with new onset right arm weakness. Hospital course has been complicated by CKD and fluid overload. We have attempted BiPAP for several hours but he remains in distress and although oxygenation is acceptable work of breathing is excessive. Worrisome increasing metabolic acidosis. 09/17: Gas exchange much improved. BNP 1681, ScVO2 71%. It appears that cardiac output is more than adequate for peripheral needs and the primary pathology is renal failure and fluid overload. If we can manage volume I can probably get him extubated. 09/18: Diffuse crackles. Needs to be diuresed today. Tolerating extubation but at risk for hypoxemic failure again. 09/20 - Re consulted due to worsening hypoxia. Currently on nonrebreather mask. Chest x-ray shows worsening consolidation right lobe creatinine slightly improved over. Family request transfer to [facility] however refused. We'll attempt to decipher status currently unknown. 09/21: Remains on nonrebreather mask. Saturations between 89-97%. Chest x-ray unchanged. Not tachypnea. Not confused. 09/22: Radiographic studies show diffuse interstitial process with skip areas - more indicative of infectious/inflammatory process. Sats 85% with labored pattern. Required intubation for deteriorating respiratory status. 09/23: Gas exchange improving. Pulmonary infiltrates remain very concerning - if most recent sputum is benign I would not be opposed to steroids. 09/24: Extubated today. On 3 L nasal cannula. Passed swallow evaluation. Appropriate interactive status post extubation. 09/29: Critical care reconsult requested by Dr. Meza for respiratory failure. Patient reportedly was on BiPAP this morning. He was given additional diuretic earlier as he was short of breath. With this he seems to have improved somewhat and has been on a nonrebreather facemask for more than a few hours. He states that he is breathing much better. Patient being adamant about not using BiPAP. I had a detailed conversation about the importance of using BiPAP especially at night in view of his history of sleep apnea. Patient did not appear to be in acute distress though he was requiring a nonrebreather facemask at the time of my evaluation. No urgent need for BiPAP or intubation at this time. In fact patient is stating that he is breathing much better than this morning. 09/30: Remains on nonrebreather facemask. Refused BiPAP at night. States that he is breathing better today than yesterday. 10/01: 02 30 L/m 100% FiO2. O2 sats borderline. Episodes of confusion. When I evaluated the patient he was sitting up in bed and was able to converse. Not using accessory muscles of respirations currently. 10/02: The patient is alert and oriented currently has been weaned down to high flow nasal cannula with an FiO2 of 65%, maintaining O2 saturation to 95%. Patient is appropriately conversant no episodes of confusion noted. 10/03: Yesterday, the patient received 2 units of packed red blood cells with Furosemide dosing in between transfusion of units, with diuresis of approximately 2900 cc. Last night, the patient was noted to have respiratory decompensation, continued refusal to utilize BiPAP during the night. FiO2 requirements increased to 100% this a.m., on high flow nasal cannula, with noted accessory muscle use and inability to speak in complete sentences secondary to dyspnea. The patient received additional dose of Lasix this a.m. , chest x-ray appeared to be worsened this a.m. .Patient subsequently became hypoxic requiring emergent intubation this a.m.., O2 sat saturation 80s on 100 % FiO2. 10/04: Intubated yesterday due to general and hypoxia. Diuresed with 80 mg furosemide 1. Tmax 99.8. Currently 97.8. Tube feeds initiated. No bowel movement. 10/05: Afebrile. Subcutaneous air in neck bilaterally on chest x-ray today. No obvious pneumothorax. No pneumothorax on chest x-ray yesterday post central line placement. Tolerating tube feeding. No bowel movement. 10/06: Currently resting in bed. Subcutaneous air neck much improved. X-ray improved. FiO2 down to 40%. Tolerating tube feeding. One bowel movement. 10/07: Afebrile. Currently on propofol drip at 40 mg/kg per minute. X-ray has improved. Currently not tolerating tube feeds. 2 bowel movements documented. Sedation vacation today ordered. Subjective: 10/08: Afebrile. Saturations 95% on FiO2 50%. MRI brain showed no acute findings last night. EEG repeated for today. PLEDs on previous EEG. Vimpat along with fosphenytoin added per neurology. Arousable on the ventilator. Tube feeds to be resumed today. Discussed with at length yesterday Objective Vital Signs Date Time Temp Pulse Resp B/P (MAP) Pulse Ox O2 Delivery O2 Flow Rate FiO2 10/08/16 03:38 97 50 10/08/16 03:24 72 10/08/16 03:23 97.3 18 124/73 (90) 10/08/16 03:23 Mechanical Ventilator Intake and Output 10/08/16 10/08/16 10/09/16 08:00 16:00 00:00 Intake Total 739 ml Output Total 1105 ml Balance -366 ml Result Diagram: 10/08/16 0427 10/08/16 0427 Other Results Microbiology Date/Time Source Procedure Growth Status 10/03/16 13:35 Blood Peripheral Aerobic Blood Culture - Preliminary NO GROWTH IN 4 DAYS Resulted 10/03/16 13:35 Blood Peripheral Anaerobic Blood Culture - Preliminary NO GROWTH IN 4 DAYS Resulted 09/12/16 01:00 Stool Stool Stool Occult Blood (JAME) - Final HEMOCCULT NEGATIVE Complete 10/03/16 12:49 Nasal Washing Influenza Types A,B Antigen (JAME) - Final NEGATIVE FOR FLU A AND B ANTIGEN.... Complete 10/03/16 12:20 Urine Catheterized Urine Streptococcus pneumoniae Antigen (M - Final PRESUMPTIVE NEGATIVE FOR STREPTOCOCCU... Complete Imaging Last Impressions Chest X-Ray 10/08/16 0600 Signed Impressions: Service Date/Time: Saturday, October 08, 2016 03:51 - CONCLUSION: Stable interstitial and airspace opacities bilaterally. Jarad Delgado MD Brain MRI 10/07/16 0000 Signed Impressions: Service Date/Time: September 21:45 - CONCLUSION: 1. Residual small areas of infarction seen bilaterally. There are fewer areas of signal abnormality seen on the diffusion-weighted images on the current exam. New areas of infarction are not present. 2. Areas of demyelination throughout the cerebral and pontine white matter likely from small vessel ischemic change. 3. Fluid in the mastoid air cells. Jarad Cat MD Abdomen X-Ray 10/07/16 0000 Signed Impressions: Service Date/Time: September 08:32 - CONCLUSION: Unremarkable bowel gas pattern. Sanya Cavazos MD Neck CT 10/05/16 0000 Signed Impressions: Service Date/Time: Wednesday, October 05, 2016 10:41 - CONCLUSION: Extensive subcutaneous emphysema. Jarad De Jesus MD Chest CT 10/05/16 0000 Signed Impressions: Service Date/Time: Wednesday, October 05, 2016 10:43 - CONCLUSION: Prior median sternotomy cardiac surgery atherosclerotic cardiovascular disease with left ventricular cardiomegaly and evidence of interstitial alveolar edema in both lungs consistent with CHF. Support tubes in place with subcutaneous emphysema in the soft tissues of neck bilaterally and supraclavicular. There is no evidence of pneumothorax. Lele Escudero MD Head Magnetic Resonance Angiography 09/10/16 1028 Signed Impressions: Service Date/Time: Saturday, September 10, 2016 10:57 - CONCLUSION: 1. Unremarkable MRA examination without evidence for large vessel occlusion, aneurysm, or vascular malformation. Richardson Haney MD Carotid Artery Ultrasound 09/09/16 1028 Signed Impressions: Service Date/Time: September 10:43 - CONCLUSION: 1. Moderate visible plaque without hemodynamically significant stenosis identified. No significant change from August 25. Amado Crain MD Renal Ultrasound 09/09/16 0000 Signed Impressions: Service Date/Time: September 15:41 - CONCLUSION: 1. Cortical atrophy with small bilateral renal cysts. No hydronephrosis. Amado Crain MD Head CT 09/08/16 2251 Signed Impressions: Service Date/Time: Thursday, September 08, 2016 23:41 - CONCLUSION: Stable noncontrast CT with no evidence of hemorrhage or acute infarction. Atrophy and chronic small vessel splenic changes remain. Sanya Cavazos MD Objective Remarks GENERAL: 75-year-old male currently orotracheally intubated and critically ill SKIN: Warm and dry. Well perfused HEAD: Atraumatic. Normocephalic. NECK: Trachea midline. No thyromegaly. Resolved bilateral neck crepitus Right IJ is clean dry and intact. CARDIOVASCULAR: IRR. S1, S2 no S4. Without murmur RESPIRATORY: Air entry decreased bilaterally at bases, scattered rhonchi, no wheezing. GASTROINTESTINAL: Abdomen soft, non-tender, nondistended. No guarding. BS active. MUSCULOSKELETAL: Extremities with trace to 1+ B/L lower extremity edema. No obvious deformities. NEUROLOGICAL: Positive corneal reflex. Positive gag. Withdraws to noxious stimulation all 4 extremities. Follows commands with right upper extremity, bilateral lower strategies. Follow commands with intermittently to left upper extremity. Procedures 10/03- intubation Date of Insertion: Oct 03, 2016 Vascular Central Line Catheter: Yes Assessment to: Continue Date of Insertion: Oct 04, 2016 Line: Central Venous Catheter Side: Right Location: Internal, Jugular A/P Assessment and Plan Neuro/Psych: Left occipital, bilateral frontal parietal cerebellar CVA subacute Chronic headaches Chronic benzodiazepine use Chronic oxycodone use Seizure MRI 09/10 brain revealed left occipital, bilateral frontal parietal and cerebellar CVA likely [employer]FI[employer] distribution Followed by Dr. Jeffries/neurology. 10/[address] Prajapati in view of episodes of confusion. Nonfocal. EEG 10/07 bilateral PLEDs with episodic sharp activity MRI brain 10/07 - no acute findings. Residual frontal/parietal and occipital junction CVA. Significant demyelination Currently on fosphenytoin at 100 mg IV twice a day, levetiracetam 500 mg IV twice a day and lacosamide 100 mg IV twice a day Repeat EEG today. Follow-up on fosphenytoin level in a.m. Meropenem, linezolid and famotidine all discontinued Currently on alprazolam 0.25 mg every 6 hours PRN Anxiety Currently on propofol at 40 mg/kg minutes and dexmedetomidine at 0.4 mg/kg hour for sedation while intubated Goal of RA SS -2 Daily sedation vacation CV: Coronary disease status post CABG ASCVD Carotid stenosis TAAA Hypertension dyslipidemia History atrial fibrillation status post ablation 2011 Followed by cardiology. Currently off atorvastatin 40 mg daily/home medication for dyslipidemia On PO Apixaban 5 mg twice a day per cardiology. Off amiodarone for suspected pulmonary toxicity Echocardiogram revealed EF 70%. OHS septal motion./Paradoxical, CARA 50-60 mmHg Currently labetalol 100 mg 3 times a day for hypertension. As needed metoprolol for tachycardia Continue aspirin 81 mg by mouth daily Resp: Acute hypoxemic respiratory failure Subcutaneous air neck PRVC 18/600/1.2/ Ventilator bundle Albuterol/ipratropium every 6 hours with albuterol aerosols as indicated 3rd intubation. Last 10/03 Chest x-ray 10/08 - improved bilateral subcutaneous neck. No obvious pneumothorax. CT chest ruled out pneumothorax Likely barotrauma from mechanical ventilation. PEEP decreased from 10-5 . Increased to 8 yesterday due to worsening saturations 10/03 switched Methylprednisolone 40 mg every 12hrs- ( Prednisone 40mg q day taper over's several weeks recommended by nephrology for possible pantoprazole induced interstitial nephritis) Continue montelukast 10 mg by mouth daily Pulmonary following Dr. Encinas Continue antibiotics per ID Dr. Nova - recommending lung biopsy CT surgery - [place] [facility]: Currently holding Suplena goal 55 cc an hour (per dietary recommendations) due to high tube feed residuals Restart goal 30 cc today. The residuals overnight. On sucralfate 1 g by mouth 4 times daily for GI prophylaxis Docusate sodium 100 mg twice a day, senna liquid 8.6 mg twice a day and polyethylene glycol 3350 17 g twice daily for bowel regimen Continue metoclopramide 5 mill grams IV every 8 hours 10/07 negative KUB. LIWS NGT LESS than 100 cc overnight History of hydroureter Renal ultrasound revealed no hydronephrosis Reinsert Franco- intubated and receiving diuretics- Strict I&O's Endo: Sliding scale insulin if indicated Renal: Acute on chronic kidney injury Currently holding furosemide 20 mg by mouth daily Nephrology follow-up.. 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 Slowly wean steroids due to this issue as above pulmonary section. Dr. Cerda following Creatinine currently 1.5. Noted BUN Heme: History of colon cancer status post partial colectomy History of bladder cancer normocytic anemia Leukocytosis Monitor CBC daily. Follow trends. Noted elevated lambda and kappa Chains/ESR likely secondary underlying acute kidney injury. Evaluated by Dr. Mccollum/hematology ID: Likely hospital-acquired pneumonia On meropenem//linezolid since 09/27 through 10/07 Pertinent cultures 10/03-repeat blood, urine Legionella and pneumococcal antigens and sputum cultures no growth 10/03-influenza negative 09/28 - blood cultures 2 - no growth 09/22 - sputum - no growth 09/16 - blood cultures 2 - no growth Recheck sputum today FEN: Hypernatremia Hyperphosphatemia Hyper-magnesium Monitor and replete electrolytes Continue calcium acetate 667 mg 3 times a day Remove milk of magnesia from MAR Continue one half normal saline at 42 cc an hour. Added free water 200 cc every 6 hours. MSK: PT evaluate and treat Prophylaxis - GI -sucralfate - DVT - SCD/apixaban Access - Right subclavian CVL placed 09/16 - 10/04 - Right IJ CVL 10/04 present Critical Care: The total critical care time was 30 minutes. Time to perform other separately billable procedures was not included in the critical care time. Zay Romero MD Oct 08, 2016 06:51
[2016-10-08] MEDS: FREE WATER G-TUBE SCH ×4 (07:00→21:53)
[2016-10-08] MEDS: CHLORHEXIDINE 0.12% (ORAL KIT) 15 ML CUP MT SCH ×4 (08:00→21:18)
--- NOTE | 2016-10-08 08:24 | MG ---
cc: ADRIENNE LAGUNAS M.D. Lab No: [id number] Date: 10/07/2016 Age: 75 Sex: M Race: DATE OF 1940 AGE [id number] EEG NUMBER [id number] REFERRING PHYSICIAN MD Heather ROOM 446. NOTE The patient's sedation was turned off between 7 and 10:30 a.m. and given some possible Ativan 2 mg at 13:42, notified the doctor who was notified by the weatherization field technician. Patient intubated, post-CABG with right arm weakness, history of heart disease, anxiety, cancer. MEDICATIONS 1. Solu-Medrol. 2. Reglan. 3. Trandate. 4. Other drugs. DESCRIPTION OF RECORD The patient exhibits spike wave activity bilaterally, right arm switching. There is correlation with spikes throughout. He continues throughout most of the recording with some shoulder twitching as well, I believe Dr. Romero was notified by the weatherization field technician performing the study. IMPRESSION Abnormal EEG due to diffuse spike activity throughout the recording consistent with what looks like a generalized epileptic discharges. Clinical correlation. Adrienne Lagunas MD DF/SUSAN /8:27 PM /8:20 AM
[2016-10-08] MEDS: POLYETHYLENE GLYCOL 17 GM PKG NG SCH ×2 (09:00→21:00)
[2016-10-08] MEDS: DOCUSATE SODIUM 100 MG/10 ML UDC NG SCH ×2 (09:00→21:16)
[2016-10-08] MEDS: SODIUM CHLORIDE 0.9% FLUSH 10 ML FLUSH IVF SCH (09:00)
[2016-10-08] MEDS: SENNOSIDES SYRUP 8.8 MG/5 ML CUP NG SCH ×2 (09:00→21:17)
--- NOTE | 2016-10-08 09:26 | HHI.PR ---
Subjective Remarks on vent after sob on bipap was up and standin with PT few days ago Objective Vital Signs Date Time Temp Pulse Resp B/P (MAP) Pulse Ox O2 Delivery O2 Flow Rate FiO2 10/08/16 07:29 98 50 10/08/16 03:38 97 50 10/08/16 03:24 72 10/08/16 03:23 50 10/08/16 03:23 97.3 71 18 124/73 (90) 98 10/08/16 03:23 98 Mechanical Ventilator 50 10/08/16 01:20 96 50 10/07/16 23:49 97.3 81 18 138/82 (100) 95 10/07/16 23:49 50 10/07/16 23:49 95 Mechanical Ventilator 50 10/07/16 23:29 80 10/07/16 21:34 98 100 10/07/16 20:40 95 50 10/07/16 19:15 91 Mechanical Ventilator 50 10/07/16 19:15 97.5 87 19 131/82 (98) 91 10/07/16 19:15 50 10/07/16 19:00 91 10/07/16 16:30 97 50 10/07/16 15:00 98.3 84 23 154/95 (114) 95 10/07/16 15:00 95 Mechanical Ventilator 50 10/07/16 15:00 84 10/07/16 15:00 50 10/07/16 12:15 92 40 10/07/16 11:00 40 10/07/16 11:00 97.8 87 20 159/98 (118) 93 10/07/16 11:00 88 10/07/16 11:00 95 Mechanical Ventilator 40 I/O 10/07/16 10/07/16 10/07/16 10/08/16 10/08/16 10/08/16 07:00 15:00 23:00 07:00 15:00 23:00 Intake Total 435 ml 34 ml 290 ml 739 ml Output Total 2075.0 ml 1025 ml 1115.0 ml Balance -1640.0 ml 34 ml -735 ml -376.0 ml IV Total 400 ml 34 ml 190 ml 649 ml Tube Feeding 35 ml Tube Irrigant 100 ml 90 ml Output Urine Total 1125 ml 825 ml 905 ml Stool Total 200 ml Gastric Drainage Total 725 ml 200 ml Tube Feeding Residual Discard 225.0 ml 10.0 ml # Bowel Movements 2 2 Result Diagram: 10/08/1642610/08/16426 Objective Remarks intubated no twitiching this am did narciso diaz to command for me lethargic Assessment and Plan Assessment and Plan imp no new spells esr 80 crp and kappa chains and lamda chains 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 shabbir neg on eliquis 5 bid now b12 shots DONE renal issues i ordered some inflammation labs SOME ABN HERE PLEASE ADDRESS ABN KAPPA PROTEINS i dw med team today I WILL SIGNOFF again his vision change due to oleft occipital region cva he had on admission they will do heme consult for above esr inc and abn proteins 10/07/[address] jerks and eeg shows some bilat pled like almost at time sharps i added dil and vimpat to keppra will recheck mri and eeg follow levels 10/08/16 spep abn due to renal dil 8 free dil around 12 mri no new cva on anticoag eeg reportedly looks better this am sz on vimpat and dil looks better will follow Reymundo Jeffries MD Oct 08, 2016 09:26
[2016-10-08] MEDS: SODIUM CHLOR 0.45% 1000 ML INJ 1,000 ML IV SCH (09:31)
[2016-10-08] MEDS: levETIRAcetam INJ 500 MG in SODIUM CHLORIDE 0.9% INJ 100 ML IV SCH ×2 (09:33→21:17)
[2016-10-08] MEDS: methylPREDNISolone SOD SUCC 40 MG/1 ML VIAL IV PUSH SCH ×2 (09:34→21:17)
[2016-10-08] MEDS: SODIUM CHLORIDE 0.9% FLUSH 10 ML FLUSH IV FLUSH SCH ×2 (09:34→21:18)
[2016-10-08] MEDS: ASPIRIN EC 81 MG TABEC PO SCH (09:35)
[2016-10-08] MEDS: LABETALOL HCL 100 MG TAB PO SCH ×3 (09:36→17:28)
[2016-10-08] MEDS: APIXABAN 5 MG TABLET PO SCH ×2 (09:36→21:16)
[2016-10-08] MEDS: CALCIUM ACETATE 667 MG CAP PO SCH ×3 (09:36→17:28)
--- NOTE | 2016-10-08 12:22 | HHI.PR ---
Subjective Remarks Intubated and on a ventilator , with FIo2 at 50 %. Chest X Ray is better Had seizure activity last PM. Had EEG.Good output. Objective Vital Signs Date Time Temp Pulse Resp B/P (MAP) Pulse Ox O2 Delivery O2 Flow Rate FiO2 10/08/16 11:00 79 10/08/16 11:00 97.5 76 18 93/57 (69) 97 10/08/16 11:00 50 10/08/16 11:00 98 Mechanical Ventilator 50 10/08/16 07:29 98 50 10/08/16 07:00 87 10/08/16 07:00 97.4 87 21 121/77 (92) 98 10/08/16 07:00 50 10/08/16 07:00 98 Mechanical Ventilator 50 10/08/16 03:38 97 50 10/08/16 03:24 72 10/08/16 03:23 50 10/08/16 03:23 97.3 71 18 124/73 (90) 98 10/08/16 03:23 98 Mechanical Ventilator 50 10/08/16 01:20 96 50 10/07/16 23:49 97.3 81 18 138/82 (100) 95 10/07/16 23:49 50 10/07/16 23:49 95 Mechanical Ventilator 50 10/07/16 23:29 80 10/07/16 21:34 98 100 10/07/16 20:40 95 50 10/07/16 19:15 91 Mechanical Ventilator 50 10/07/16 19:15 97.5 87 19 131/82 (98) 91 10/07/16 19:15 50 10/07/16 19:00 91 10/07/16 16:30 97 50 10/07/16 15:00 98.3 84 23 154/95 (114) 95 10/07/16 15:00 95 Mechanical Ventilator 50 10/07/16 15:00 84 10/07/16 15:00 50 I/O 10/07/16 10/07/16 10/07/16 10/08/16 10/08/16 10/08/16 07:00 15:00 23:00 07:00 15:00 23:00 Intake Total 435 ml 34 ml 290 ml 739 ml Output Total 2075.0 ml 1025 ml 1115.0 ml Balance -1640.0 ml 34 ml -735 ml -376.0 ml IV Total 400 ml 34 ml 190 ml 649 ml Tube Feeding 35 ml Tube Irrigant 100 ml 90 ml Output Urine Total 1125 ml 825 ml 905 ml Stool Total 200 ml Gastric Drainage Total 725 ml 200 ml Tube Feeding Residual Discard 225.0 ml 10.0 ml # Bowel Movements 2 2 Result Diagram: 10/08/1642610/08/16426 Objective Remarks GENERAL: This moderately overweight elderly man ,Intubated on the vent. HEENT: Head is normocephalic. Pupils are reactive. Tongue is moist. Throat clear NECK: No venous distention.Trachea is midline. No thyroid enlargement. CHEST: Equal movements with diminished breath sounds at the bases with Occ crackles. HEART: Sounds are irregular S1-S2. No murmur. ABDOMEN: Soft. Protuberant without masses. No organomegaly. EXTREMITIES: Decreased pulses. .Edema 1 + SKIN: warm. Neuro : lethargic.Moves arms. Assessment and Plan Assessment and Plan IMPRESSION 1. Acute respiratory failure.Resolving 2. Fluid overload status with pulmonary edema. 3. Acute kidney failure.Resolving 4. History of cerebrovascular accident. 5. Bibasilar atelectasis with possible pneumonia. 6. History of colon cancer and bladder cancer. 7. Possible Hypersensitivity Pneumonia or Edema Plan : 1. 2. FIO2 at 45 %and wean to keep sat >92. 3. Nebs qid ,Duoneb. 4.CPAP trial daily 5. Antibiotics per ID 6. Neuro Evaluation 7. Chest X ray in am 8. CBC,BMP 9. Hold trach for now. 10. solumedrol IV 20 mg Q12H. Jaime Encinas MD Oct 08, 2016 12:22
[2016-10-08] MEDS: CYANOCOBALAMIN 1000 MCG/ML VIAL SQ SCH (12:23)
[2016-10-08] MEDS: SUCRALFATE 1 GM/10 ML CUP NG SCH ×2 (12:23→17:28)
--- NOTE | 2016-10-08 14:07 | PD.CAR.PN ---
CVT Progress Note Subjective/Hospital Course: 10/01 remains on high flow 02 poor reserve, continue diuresis , antibiotics/ OOB as tolerated 10/02/16 continues on high flow O2 No c/o 10/04 pt reintubated yesterday , 2/ resp distress now sedated on vent, on 40% fio2 renal function stable, non-oliguric 10/05 pt remains intubated 3rd time on 40% FI02 CT chest : groundglass appearance bilateral infiltrates bullous emphysema, interstitial edema / Dr Encinas spoke with Dr Zamora regarding possible open lung bx: RE ? vasculitis / PNA/ interstitial lung dz / amiodarone toxicity pt too high risk for thoracic surgery at this time , continue current treatment / eval for trach and peg soon CM eval for LTAC 10/06 being eval for possible bedside trach , then eval for LTAC remains sedated on vent 40% Fi02 sub q air right neck improved 10/07 pt had bedside - agricultural research technologist possible epileptic activity on EEG. Meropenem, linezolid and famotidine all discontinued. Loaded with Keppra and scheduled 500 mg IV twice a day. Neurology consult for management of antiepileptics. MRI brain pending is also agreeable for tracheostomy placement remains on vent, not tolerating tube feeding 10/[address] Jeffries , pt on sedation vacation opened eyes, wiggled both feet , left sided weakness moved right arm , very weak MRI brain , no new infarct Objective: GENERAL: awake, lethargic, oped eyes and tracks orally in intubated on vent Fi02 50% SKIN: Warm and dry. HEAD: Atraumatic. Normocephalic. EYES: Pupils equal and round. No scleral icterus. No injection or drainage. ENT: No nasal bleeding or discharge. Mucous membranes pink and moist. NECK: Trachea midline. No JVD. CARDIOVASCULAR: irregular Regular rate and rhythm., general edema RESPIRATORY: No accessory muscle use. Clear to auscultation. Breath sounds equal bilaterally. coarse bilateral breath sounds GASTROINTESTINAL: Abdomen soft, slightly distended non-tender, nondistended. Hepatic and splenic margins not palpable. MUSCULOSKELETAL: Extremities without clubbing, cyanosis, or edema. No obvious deformities. Vital Signs Date Time Temp Pulse Resp B/P (MAP) Pulse Ox O2 Delivery O2 Flow Rate FiO2 10/08/16 12:53 97 45 10/08/16 11:00 79 10/08/16 11:00 97.5 76 18 93/57 (69) 97 10/08/16 11:00 50 10/08/16 11:00 98 Mechanical Ventilator 50 10/08/16 07:29 98 50 10/08/16 07:00 87 10/08/16 07:00 97.4 87 21 121/77 (92) 98 10/08/16 07:00 50 10/08/16 07:00 98 Mechanical Ventilator 50 10/08/16 03:38 97 50 10/08/16 03:24 72 10/08/16 03:23 50 10/08/16 03:23 97.3 71 18 124/73 (90) 98 10/08/16 03:23 98 Mechanical Ventilator 50 10/08/16 01:20 96 50 10/07/16 23:49 97.3 81 18 138/82 (100) 95 10/07/16 23:49 50 10/07/16 23:49 95 Mechanical Ventilator 50 10/07/16 23:29 80 10/07/16 21:34 98 100 10/07/16 20:40 95 50 10/07/16 19:15 91 Mechanical Ventilator 50 10/07/16 19:15 97.5 87 19 131/82 (98) 91 10/07/16 19:15 50 10/07/16 19:00 91 10/07/16 16:30 97 50 10/07/16 15:00 98.3 84 23 154/95 (114) 95 10/07/16 15:00 95 Mechanical Ventilator 50 10/07/16 15:00 84 10/07/16 15:00 50 Labs: Laboratory Tests Test 10/08/16 04:27 10/08/16 05:52 White Blood Count 13.8 TH/MM3 (4.0-11.0) Red Blood Count 3.54 MIL/MM3 (4.50-5.90) Hemoglobin 10.4 GM/DL (13.0-17.0) Hematocrit 32.3 % (39.0-51.0) Mean Corpuscular Volume 91.3 FL (80.0-100.0) Mean Corpuscular Hemoglobin 29.4 PG (27.0-34.0) Mean Corpuscular Hemoglobin Concent 32.1 % (32.0-36.0) Red Cell Distribution Width 16.4 % (11.6-17.2) Platelet Count 286 TH/MM3 (150-450) Mean Platelet Volume 8.0 FL (7.0-11.0) Neutrophils (%) (Auto) 75.5 % (16.0-70.0) Lymphocytes (%) (Auto) 13.9 % (9.0-44.0) Monocytes (%) (Auto) 9.9 % (0.0-8.0) Eosinophils (%) (Auto) 0.5 % (0.0-4.0) Basophils (%) (Auto) 0.2 % (0.0-2.0) Neutrophils # (Auto) 10.4 TH/MM3 (1.8-7.7) Lymphocytes # (Auto) 1.9 TH/MM3 (1.0-4.8) Monocytes # (Auto) 1.4 TH/MM3 (0-0.9) Eosinophils # (Auto) 0.1 TH/MM3 (0-0.4) Basophils # (Auto) 0.0 TH/MM3 (0-0.2) CBC Comment DIFF FINAL Differential Comment Blood Urea Nitrogen 118 MG/DL (7-18) Creatinine 1.54 MG/DL (0.60-1.30) Random Glucose 115 MG/DL (74-106) Calcium Level 8.8 MG/DL (8.5-10.1) Sodium Level 146 MEQ/L (136-145) Potassium Level 4.3 MEQ/L (3.5-5.1) Chloride Level 105 MEQ/L (98-107) Carbon Dioxide Level 32.8 MEQ/L (21.0-32.0) Anion Gap 8 MEQ/L (5-15) Estimat Glomerular Filtration Rate 44 ML/MIN (>89) Phenytoin (Dilantin) Level 8.2 MCG/ML (10.0-20.0) Blood Gas Puncture Site RT RADIAL Blood Gas Patient Temperature 98.6 Blood Gas HCO3 33 mmol/L (22-26) Blood Gas Base Excess 8.2 mmol/L (-2-2) Blood Gas Oxygen Saturation 90 % (90-100) Arterial Blood pH 7.41 (7.380-7.420) Arterial Blood Partial Pressure CO2 53 mmHg (38-42) Arterial Blood Partial Pressure O2 68 mmHg (61-120) Arterial Blood Oxygen Content 13.7 Vol % (12.0-20.0) Arterial Blood Carboxyhemoglobin 1.9 % (0-4) Arterial Blood Methemoglobin 1.4 % (0-2) Blood Gas Hemoglobin 10.8 G/DL (12.0-16.0) Oxygen Delivery Device VENTILATOR Blood Gas Ventilator Setting PRVC/AC Blood Gas Inspired Oxygen 50 % Result Diagram: 10/08/1642610/08/16426 (1) History of CVA (cerebrovascular accident) Plan: new onset of sizures, Neuro following on antiepileptic meds (2) CKD (chronic kidney disease) stage 3, GFR 30-59 ml/min Plan: stable indices (3) S/P CABG x 3 (4) Atrial fibrillation Plan: rate controlled, on eliquis ( will need to be held prior to trach ) (5) Acute hypoxemic respiratory failure Plan: reintubated on vent, CCM following may need trach soon continue supportive care (6) Hypertension (7) Thoracic aortic aneurysm without rupture Casandra Barton Oct 08, 2016 14:07
--- NOTE | 2016-10-08 14:33 | PD.CARD.PN ---
Subjective Subjective Remarks Patient is sedated on propofol. No acute cardiac events. Trying to wean ventilator. Follows some commands during sedation vacation (Elin Kwok) Objective Medications Current Medications Medications (Trade) Dose Ordered Sig/Awilda Route Start Time Stop Time Status Last Admin (NS Flush) 2 ml UNSCH PRN IV FLUSH 09/09/16 00:45 (NS Flush) 2 ml BID IV FLUSH 09/09/16 09:00 10/08/16 09:34 (Narcan Inj) 0.4 mg UNSCH PRN IV 09/09/16 00:45 (Pill Splitter) 1 ea UNSCH PRN OTHER 09/09/16 14:00 (Eliquis) 5 mg BID PO 09/10/16 09:00 10/08/16 09:36 (Catapres) 0.1 mg Q6H PRN PO 09/11/16 14:30 09/19/16 23:02 (Lopressor Inj) 5 mg Q2HR PRN IV PUSH 09/16/16 14:00 09/26/16 05:00 (Apresoline Inj) 10 mg Q6HR PRN IV PUSH 09/16/16 12:45 10/07/16 10:46 (Racepinephrine 2.25% Neb) 0.5 ml Q1HR NEB PRN NEB 09/17/16 17:15 09/17/16 18:02 (Dulcolax Supp) 10 mg DAILY PRN RECTAL 09/19/16 13:30 (Albuterol Neb) 2.5 mg Q2HR NEB PRN NEB 09/21/16 12:00 10/02/16 21:16 (Phoslo) 667 mg TID PO 09/21/16 18:00 10/08/16 12:24 (Peridex 0.12% Liq) 15 ml BID@08,20 MT 09/22/16 20:00 10/08/16 09:33 (Ecotrin Ec) 81 mg DAILY PO 09/30/16 09:00 10/08/16 09:35 (Trandate) 100 mg TID PO 09/30/16 13:00 10/08/16 12:24 (NovoLOG SUPPLEMENTAL SCALE) 1 Q6HR SQ 10/01/16 13:15 10/06/16 06:00 (D50w (Vial) Inj) 50 ml UNSCH PRN IV PUSH 10/01/16 13:15 (Glucagon Inj) 1 mg UNSCH PRN OTHER 10/01/16 13:15 (Singulair) 10 mg HS PO 10/02/16 21:00 10/07/16 21:00 (Lasix Inj) 40 mg UNSCH IV 10/02/16 09:30 10/02/16 22:59 (Tears Naturale Opth Soln) 1 drop Q8HR EACH EYE 10/03/16 14:00 10/07/16 22:00 (Colace Liq) 100 mg Q12HR NG 10/04/16 09:00 10/07/16 21:00 (Senna Liq) 8.8 mg BID NG 10/04/16 09:00 10/07/16 21:00 (NS Flush) DAILY IVF 10/04/16 12:45 10/06/16 08:09 (NS Flush) UNSCH PRN IVF 10/04/16 12:45 (Miralax) 17 gm BID NG 10/05/16 09:00 10/06/16 08:08 (Peridex 0.12% Liq) 15 ml BID@08,20 MT 10/07/16 08:00 (SoluMEDROL INJ) 40 mg BID IV PUSH 10/07/16 09:00 10/08/16 09:34 (Reglan Inj) 5 mg Q8HR IV PUSH 10/07/16 08:00 10/08/16 05:40 Dexmedetomidine HCl 200 mcg/ Sodium Chloride 52 ml @ 4.64 mls/hr TITRATE PRN IV 10/07/16 13:00 (Trandate Inj) 10 mg Q1HR PRN IV PUSH 10/07/16 13:00 (Nitroglycerin 2% Oint) 2 inch Q6HR PRN TOPICAL 10/07/16 13:00 (Duoneb Neb) 1 ampule Q6HR NEB NEB 10/07/16 16:00 10/08/16 10:13 Levetriacetam 500 mg/Sodium Chloride 105 ml @ 420 mls/hr Q12HR IV 10/07/16 21:00 10/08/16 09:33 Propofol 100 ml @ 2.682 mls/ hr TITRATE PRN IV 10/07/16 17:00 10/07/16 19:34 (Vitamin B12 Inj) 1,000 mcg DAILY SQ 10/08/16 09:00 10/11/16 08:59 10/08/16 12:23 Lacosamide 100 mg/ Sodium Chloride 110 ml @ 110 mls/hr Q12H IV 10/08/16 00:00 10/08/16 12:23 (Cerebyx Inj) 100 mgpe Q8HR IV 10/08/16 06:00 10/08/16 05:39 (Carafate Liq) 1 gm Q6HR NG 10/08/16 12:00 10/08/16 12:23 (Free Water) 200 ml Q6HR G-TUBE 10/08/16 07:00 10/08/16 12:00 Sodium Chloride 1,000 ml @ 42 mls/hr [id number] IV 10/08/16 08:00 10/08/16 09:31 Vital Signs / I&O Vital Signs Date Time Temp Pulse Resp B/P (MAP) Pulse Ox O2 Delivery O2 Flow Rate FiO2 10/08/16 12:53 97 45 10/08/16 11:00 79 10/08/16 11:00 97.5 76 18 93/57 (69) 97 10/08/16 11:00 50 10/08/16 11:00 98 Mechanical Ventilator 50 10/08/16 07:29 98 50 10/08/16 07:00 87 10/08/16 07:00 97.4 87 21 121/77 (92) 98 10/08/16 07:00 50 10/08/16 07:00 98 Mechanical Ventilator 50 10/08/16 03:38 97 50 10/08/16 03:24 72 10/08/16 03:23 50 10/08/16 03:23 97.3 71 18 124/73 (90) 98 10/08/16 03:23 98 Mechanical Ventilator 50 10/08/16 01:20 96 50 10/07/16 23:49 97.3 81 18 138/82 (100) 95 10/07/16 23:49 50 10/07/16 23:49 95 Mechanical Ventilator 50 10/07/16 23:29 80 10/07/16 21:34 98 100 10/07/16 20:40 95 50 10/07/16 19:15 91 Mechanical Ventilator 50 10/07/16 19:15 97.5 87 19 131/82 (98) 91 10/07/16 19:15 50 10/07/16 19:00 91 10/07/16 16:30 97 50 10/07/16 15:00 98.3 84 23 154/95 (114) 95 10/07/16 15:00 95 Mechanical Ventilator 50 10/07/16 15:00 84 10/07/16 15:00 50 I/O 10/07/16 10/07/16 10/07/16 10/08/16 10/08/16 10/08/16 06:59 14:59 22:59 06:59 14:59 22:59 Intake Total 435 ml 34 ml 290 ml 739 ml 155 ml Output Total 2075.0 ml 1025 ml 1115.0 ml Balance -1640.0 ml 34 ml -735 ml -376.0 ml 155 ml IV Total 400 ml 34 ml 190 ml 649 ml 155 ml Tube Feeding 35 ml Tube Irrigant 100 ml 90 ml Output Urine Total 1125 ml 825 ml 905 ml Stool Total 200 ml Gastric Drainage Total 725 ml 200 ml Tube Feeding Residual Discard 225.0 ml 10.0 ml # Bowel Movements 2 2 Physical Exam GENERAL: Elderly male, sedated and intubated. SKIN: Warm and dry. HEAD: Normocephalic. EYES: No scleral icterus. No injection or drainage. NECK: Supple, trachea midline CARDIOVASCULAR: Midline incision healing well, reg rate and rhythm RESPIRATORY: Intubated GASTROINTESTINAL: Abdomen soft, non-tender, nondistended. MUSCULOSKELETAL: No cyanosis, no BLE edema BACK: Nontender without obvious deformity. Laboratory Laboratory Tests Test 10/07/16 21:25 10/08/16 04:27 10/08/16 05:52 Blood Urea Nitrogen 113 MG/DL 118 MG/DL Creatinine 1.57 MG/DL 1.54 MG/DL Random Glucose 110 MG/DL 115 MG/DL Calcium Level 9.3 MG/DL 8.8 MG/DL Phosphorus Level 2.8 MG/DL Magnesium Level 2.8 MG/DL Sodium Level 144 MEQ/L 146 MEQ/L Potassium Level 4.8 MEQ/L 4.3 MEQ/L Chloride Level 102 MEQ/L 105 MEQ/L Carbon Dioxide Level 34.8 MEQ/L 32.8 MEQ/L Anion Gap 7 MEQ/L 8 MEQ/L Estimat Glomerular Filtration Rate 43 ML/MIN 44 ML/MIN Phenytoin (Dilantin) Level 0.7 MCG/ML 8.2 MCG/ML White Blood Count 13.8 TH/MM3 Red Blood Count 3.54 MIL/MM3 Hemoglobin 10.4 GM/DL Hematocrit 32.3 % Mean Corpuscular Volume 91.3 FL Mean Corpuscular Hemoglobin 29.4 PG Mean Corpuscular Hemoglobin Concent 32.1 % Red Cell Distribution Width 16.4 % Platelet Count 286 TH/MM3 Mean Platelet Volume 8.0 FL Neutrophils (%) (Auto) 75.5 % Lymphocytes (%) (Auto) 13.9 % Monocytes (%) (Auto) 9.9 % Eosinophils (%) (Auto) 0.5 % Basophils (%) (Auto) 0.2 % Neutrophils # (Auto) 10.4 TH/MM3 Lymphocytes # (Auto) 1.9 TH/MM3 Monocytes # (Auto) 1.4 TH/MM3 Eosinophils # (Auto) 0.1 TH/MM3 Basophils # (Auto) 0.0 TH/MM3 CBC Comment DIFF FINAL Differential Comment Blood Gas Puncture Site RT RADIAL Blood Gas Patient Temperature 98.6 Blood Gas HCO3 33 mmol/L Blood Gas Base Excess 8.2 mmol/L Blood Gas Oxygen Saturation 90 % Arterial Blood pH 7.41 Arterial Blood Partial Pressure CO2 53 mmHg Arterial Blood Partial Pressure O2 68 mmHg Arterial Blood Oxygen Content 13.7 Vol % Arterial Blood Carboxyhemoglobin 1.9 % Arterial Blood Methemoglobin 1.4 % Blood Gas Hemoglobin 10.8 G/DL Oxygen Delivery Device VENTILATOR Blood Gas Ventilator Setting PRVC/AC Blood Gas Inspired Oxygen 50 % Imaging Last 72 hours Impressions Chest X-Ray 10/08/16 0600 Signed Impressions: Service Date/Time: Saturday, October 08, 2016 03:51 - CONCLUSION: Stable interstitial and airspace opacities bilaterally. Jarad Delgado MD Brain MRI 10/07/16 0000 Signed Impressions: Service Date/Time: September 21:45 - CONCLUSION: 1. Residual small areas of infarction seen bilaterally. There are fewer areas of signal abnormality seen on the diffusion-weighted images on the current exam. New areas of infarction are not present. 2. Areas of demyelination throughout the cerebral and pontine white matter likely from small vessel ischemic change. 3. Fluid in the mastoid air cells. Jarad Cat MD Abdomen X-Ray 10/07/16 0000 Signed Impressions: Service Date/Time: September 08:32 - CONCLUSION: Unremarkable bowel gas pattern. Sanya Cavazos MD Chest X-Ray 10/06/16 0600 Signed Impressions: Service Date/Time: Thursday, October 06, 2016 04:47 - CONCLUSION: Improvement in the interstitial and airspace opacities bilaterally. Jarad Delgado MD Chest X-Ray 10/05/16 1800 Signed Impressions: Service Date/Time: Wednesday, October 05, 2016 18:11 - CONCLUSION: 1. Improving bilateral subcutaneous emphysema. 2. There continues to be bilateral interstitial pulmonary infiltrates which are about the same or mildly increased compared to the prior study. Kodi Ashraf MD (Elin Kwok) Assessment and Plan Problem List: (1) History of CVA (cerebrovascular accident) ICD Codes: Z86.73 - Personal history of transient ischemic attack (TIA), and cerebral infarction without residual deficits Status: Acute (2) CKD (chronic kidney disease) stage 3, GFR 30-59 ml/min ICD Codes: N18.3 - Chronic kidney disease, stage 3 (moderate) Status: Acute (3) S/P CABG x 3 ICD Codes: Z95.1 - Presence of aortocoronary bypass graft Status: Acute (4) Atrial fibrillation ICD Codes: I48.91 - Unspecified atrial fibrillation (5) Acute hypoxemic respiratory failure ICD Codes: J96.01 - Acute respiratory failure with hypoxia Status: Acute (6) Hypertension ICD Codes: I10 - Essential (primary) hypertension Status: Acute (7) Thoracic aortic aneurysm without rupture ICD Codes: I71.2 - Thoracic aortic aneurysm, without rupture Status: Acute Assessment and Plan PLAN: Continue labetalol and Eliquis 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 The patient was seen and evaluated by Dr. Moran who completed a [id number] encounter, completed a physical exam and participated in evaluation and management. (Elin Kwok) Assessment and Plan Stable discussed in detail with Dr Latham. (Suellen Moran MD) Elin Kwok Oct 08, 2016 14:33 Suellen Moran MD Oct 08, 2016 14:43
[2016-10-08] MEDS: MONTELUKAST SODIUM 10 MG TAB PO SCH (21:00)
--- NOTE | 2016-10-08 21:12 | MG ---
cc: ADRIENNE LAGUNAS MD Lab No: [id number] Date: 10/08/16 Age: Sex: M Race: REFERRING PHYSICIAN Dr. Jeffries Photic stimulation done. This is a repeat EEG with sedation off at 08:15 this morning, intubated but awake. MRI shows residual small area of infarction bilaterally. History of stroke, hypertension, hyperlipidemia, colon cancer. DESCRIPTION OF RECORD There still is some background slowing but there may still be some sharp wave activity noted at times, some eye movement artifact consistent as well. There is a spike and wave discharge seen by epoch 40. Photic stimulation ____ driving response mild. Right arm movement with some spike waves notes, sharps. IMPRESSION Abnormal EEG due to some moderate slowing but also some sharps and spike and waves seen on occasion consistent with possible focus of seizures in this patient. Clinical correlation. Adrienne Lagunas MD DF/ /7:15 PM /9:02 PM
[2016-10-09] VITALS (15 sets, daily range): BP systolic 118–156; BP diastolic 69–93; PULSE 79–96; RESP 18–21; TEMP 98.4–100.8; O2SAT 93–99
[2016-10-09] MEDS: SUCRALFATE 1 GM/10 ML CUP NG SCH ×4 (00:29→17:35)
[2016-10-09] MEDS: LACOSAMIDE INJ 200 MG in SODIUM CHLORIDE 0.9% INJ 100 ML IV SCH ×2 (00:29→12:13)
[2016-10-09] MEDS: RESP: ALBUTEROL 2.5 MG/IPRATROPIUM 0.5 MG NEB (SCH) NEB ×4 (03:41→20:20)
[2016-10-09 05:00] LABS: AUTOMATED NEUTROPHIL # 12.2 TH/MM3 (1.8-7.7); BASOPHIL # 0.1 TH/MM3 (0-0.2); BASOPHIL % 0.4 % (0.0-2.0); EOSINOPHIL # 0.1 TH/MM3 (0-0.4); EOSINOPHIL % 0.6 % (0.0-4.0); HEMATOCRIT 30.4 % (39.0-51.0); LYMPH % 9.8 % (9.0-44.0); LYMPHOCYTE # 1.4 TH/MM3 (1.0-4.8); MEAN CELL VOLUME 91.6 FL (80.0-100.0); MEAN CORPUSCULAR HEMOGLOBIN 28.7 PG (27.0-34.0); MEAN CORPUSCULAR HGB CONC 31.3 % (32.0-36.0); MONO % 5.7 % (0.0-8.0); NEUT % 83.5 % (16.0-70.0); PLATELET COUNT 260 TH/MM3 (150-450); RED BLOOD COUNT 3.31 MIL/MM3 (4.50-5.90); RED CELL DISTRIBUTION WIDTH 16.4 % (11.6-17.2); WHITE BLOOD COUNT 14.6 TH/MM3 (4.0-11.0)
[2016-10-09 05:04] LABS: HEMO FLAGS AUTO DIFF
--- NOTE | 2016-10-09 05:11 | RADRPT ---
EXAM DATE/TIME: 10/09/2016 04:09 [facility] COMPARISON: CHEST SINGLE AP, October 08, 2016, 3:51. INDICATIONS : Respiratory failure, post TIA MEDICAL HISTORY : TIA Myocardial infarction. Cardiovascular disease. Aneurysm, abdominal. SURGICAL HISTORY : CABG. Abdominal aortic aneurysm repair. ENCOUNTER: Subsequent ACUITY: 1 month PAIN SCORE: Non-responsive. LOCATION: Bilateral chest FINDINGS: A single view of the chest demonstrates endotracheal tube in satisfactory position. NG enters stomach . Right central line in superior vena cava. Interstitial and hazy airspace disease similar to Septemb er 1. CONCLUSION: 1. Support apparatus in satisfactory position. Interstitial and hazy airspace disease similar to prio r exam. Amado Crain MD on October 09, 2016 at 5:07 Board Certified Radiologist. This report was verified electronically.
[2016-10-09 05:20] LABS: ALT (GPT) 23 U/L (12-78); ANION GAP 7 MEQ/L (5-15); AST (GOT) 25 U/L (15-37); BICARBONATE 32.9 MEQ/L (21.0-32.0); BLOOD UREA NITROGEN 109 MG/DL (7-18); CHLORIDE 108 MEQ/L (98-107); GLOMERULAR FILTRATION RATE 44 ML/MIN (>89); MAGNESIUM 2.6 MG/DL (1.5-2.5); SODIUM (NA) 148 MEQ/L (136-145)
[2016-10-09 05:23] LABS: ALKALINE PHOSPHATASE 57 U/L (45-117); TOTAL BILIRUBIN ADULT 0.6 MG/DL (0.2-1.0)
[2016-10-09] MEDS: METOCLOPRAMIDE HCL 10 MG/2 ML VIAL IV PUSH SCH ×3 (05:24→21:48)
[2016-10-09] MEDS: FOSPHENYTOIN SODIUM 100 MG PE/2 ML VIAL IV SCH ×3 (05:24→21:48)
[2016-10-09] MEDS: ARTIFICIAL TEARS OPTH SOLN 15 ML BTL EACH EYE SCH ×3 (05:24→20:10)
[2016-10-09] MEDS: FREE WATER G-TUBE SCH ×5 (05:24→20:00)
[2016-10-09] MEDS: INSULIN ASPART SUPPLEMENTAL SCALE SQ SCH ×4 (06:09→17:36)
--- NOTE | 2016-10-09 06:32 | HHI.CCPN ---
Subjective Remarks/Hospital Course 75 y/o man now about 4 weeks following CABG complicated by CVA. Presented back 08/28 with new onset right arm weakness. Hospital course has been complicated by CKD and fluid overload. We have attempted BiPAP for several hours but he remains in distress and although oxygenation is acceptable work of breathing is excessive. Worrisome increasing metabolic acidosis. 09/17: Gas exchange much improved. BNP 1681, ScVO2 71%. It appears that cardiac output is more than adequate for peripheral needs and the primary pathology is renal failure and fluid overload. If we can manage volume I can probably get him extubated. 09/18: Diffuse crackles. Needs to be diuresed today. Tolerating extubation but at risk for hypoxemic failure again. 09/20 - Re consulted due to worsening hypoxia. Currently on nonrebreather mask. Chest x-ray shows worsening consolidation right lobe creatinine slightly improved over. Family request transfer to [facility] however refused. We'll attempt to decipher status currently unknown. 09/21: Remains on nonrebreather mask. Saturations between 89-97%. Chest x-ray unchanged. Not tachypnea. Not confused. 09/22: Radiographic studies show diffuse interstitial process with skip areas - more indicative of infectious/inflammatory process. Sats 85% with labored pattern. Required intubation for deteriorating respiratory status. 09/23: Gas exchange improving. Pulmonary infiltrates remain very concerning - if most recent sputum is benign I would not be opposed to steroids. 09/24: Extubated today. On 3 L nasal cannula. Passed swallow evaluation. Appropriate interactive status post extubation. 09/29: Critical care reconsult requested by Dr. Meza for respiratory failure. Patient reportedly was on BiPAP this morning. He was given additional diuretic earlier as he was short of breath. With this he seems to have improved somewhat and has been on a nonrebreather facemask for more than a few hours. He states that he is breathing much better. Patient being adamant about not using BiPAP. I had a detailed conversation about the importance of using BiPAP especially at night in view of his history of sleep apnea. Patient did not appear to be in acute distress though he was requiring a nonrebreather facemask at the time of my evaluation. No urgent need for BiPAP or intubation at this time. In fact patient is stating that he is breathing much better than this morning. 09/30: Remains on nonrebreather facemask. Refused BiPAP at night. States that he is breathing better today than yesterday. 10/01: 02 30 L/m 100% FiO2. O2 sats borderline. Episodes of confusion. When I evaluated the patient he was sitting up in bed and was able to converse. Not using accessory muscles of respirations currently. 10/02: The patient is alert and oriented currently has been weaned down to high flow nasal cannula with an FiO2 of 65%, maintaining O2 saturation to 95%. Patient is appropriately conversant no episodes of confusion noted. 10/03: Yesterday, the patient received 2 units of packed red blood cells with Furosemide dosing in between transfusion of units, with diuresis of approximately 2900 cc. Last night, the patient was noted to have respiratory decompensation, continued refusal to utilize BiPAP during the night. FiO2 requirements increased to 100% this a.m., on high flow nasal cannula, with noted accessory muscle use and inability to speak in complete sentences secondary to dyspnea. The patient received additional dose of Lasix this a.m. , chest x-ray appeared to be worsened this a.m. .Patient subsequently became hypoxic requiring emergent intubation this a.m.., O2 sat saturation 80s on 100 % FiO2. 10/04: Intubated yesterday due to general and hypoxia. Diuresed with 80 mg furosemide 1. Tmax 99.8. Currently 97.8. Tube feeds initiated. No bowel movement. 10/05: Afebrile. Subcutaneous air in neck bilaterally on chest x-ray today. No obvious pneumothorax. No pneumothorax on chest x-ray yesterday post central line placement. Tolerating tube feeding. No bowel movement. 10/06: Currently resting in bed. Subcutaneous air neck much improved. X-ray improved. FiO2 down to 40%. Tolerating tube feeding. One bowel movement. 10/07: Afebrile. Currently on propofol drip at 40 mg/kg per minute. X-ray has improved. Currently not tolerating tube feeds. 2 bowel movements documented. Sedation vacation today ordered. 10/08: Afebrile. Saturations 95% on FiO2 50%. MRI brain showed no acute findings last night. EEG repeated for today. PLEDs on previous EEG. Vimpat along with fosphenytoin added per neurology. Arousable on the ventilator. Tube feeds to be resumed today. Discussed with at length yesterday Subjective: 10/09: MAXIMUM TEMPERATURE 99.5. Currently 99.3. Tube feeds currently at 20 cc an hour. Minimal residuals. Arousable and intermittently follows commands mostly with right upper extremity. Objective Vital Signs Date Time Temp Pulse Resp B/P (MAP) Pulse Ox O2 Delivery O2 Flow Rate FiO2 10/09/16 03:42 99 50 10/09/16 03:00 99.3 90 20 125/76 (92) 10/09/16 03:00 Mechanical Ventilator Result Diagram: 10/09/16 0430 10/09/16 043 Other Results Microbiology Date/Time Source Procedure Growth Status 10/03/16 13:35 Blood Peripheral Aerobic Blood Culture - Final NO GROWTH IN 5 DAYS Complete 10/03/16 13:35 Blood Peripheral Anaerobic Blood Culture - Final NO GROWTH IN 5 DAYS Complete 09/12/16 01:00 Stool Stool Stool Occult Blood (JAME) - Final HEMOCCULT NEGATIVE Complete 10/03/16 12:49 Nasal Washing Influenza Types A,B Antigen (JAME) - Final NEGATIVE FOR FLU A AND B ANTIGEN.... Complete 10/03/16 12:20 Urine Catheterized Urine Streptococcus pneumoniae Antigen (M - Final PRESUMPTIVE NEGATIVE FOR STREPTOCOCCU... Complete Imaging Last Impressions Chest X-Ray 10/09/16 0600 Signed Impressions: Service Date/Time: Sunday, October 09, 2016 04:09 - CONCLUSION: 1. Support apparatus in satisfactory position. Interstitial and hazy airspace disease similar to prior exam. Amado Crain MD Brain MRI 10/07/16 0000 Signed Impressions: Service Date/Time: September 21:45 - CONCLUSION: 1. Residual small areas of infarction seen bilaterally. There are fewer areas of signal abnormality seen on the diffusion-weighted images on the current exam. New areas of infarction are not present. 2. Areas of demyelination throughout the cerebral and pontine white matter likely from small vessel ischemic change. 3. Fluid in the mastoid air cells. Jarad Cat MD Abdomen X-Ray 10/07/16 0000 Signed Impressions: Service Date/Time: September 08:32 - CONCLUSION: Unremarkable bowel gas pattern. Sanya Cavazos MD Neck CT 10/05/16 0000 Signed Impressions: Service Date/Time: Wednesday, October 05, 2016 10:41 - CONCLUSION: Extensive subcutaneous emphysema. Jarad De Jesus MD Chest CT 10/05/16 0000 Signed Impressions: Service Date/Time: Wednesday, October 05, 2016 10:43 - CONCLUSION: Prior median sternotomy cardiac surgery atherosclerotic cardiovascular disease with left ventricular cardiomegaly and evidence of interstitial alveolar edema in both lungs consistent with CHF. Support tubes in place with subcutaneous emphysema in the soft tissues of neck bilaterally and supraclavicular. There is no evidence of pneumothorax. Lele Escudero MD Head Magnetic Resonance Angiography 09/10/16 1028 Signed Impressions: Service Date/Time: Saturday, September 10, 2016 10:57 - CONCLUSION: 1. Unremarkable MRA examination without evidence for large vessel occlusion, aneurysm, or vascular malformation. Richardson Hanye MD Carotid Artery Ultrasound 09/09/16 1028 Signed Impressions: Service Date/Time: September 10:43 - CONCLUSION: 1. Moderate visible plaque without hemodynamically significant stenosis identified. No significant change from August 25. Amado Crain MD Renal Ultrasound 09/09/16 0000 Signed Impressions: Service Date/Time: September 15:41 - CONCLUSION: 1. Cortical atrophy with small bilateral renal cysts. No hydronephrosis. Amado Crain MD Head CT 09/08/16 2251 Signed Impressions: Service Date/Time: Thursday, September 08, 2016 23:41 - CONCLUSION: Stable noncontrast CT with no evidence of hemorrhage or acute infarction. Atrophy and chronic small vessel splenic changes remain. Sanya Cavazos MD Objective Remarks GENERAL: 75-year-old male currently orotracheally intubated and critically ill SKIN: Warm and dry. Well perfused HEAD: Atraumatic. Normocephalic. NECK: Trachea midline. No thyromegaly. Resolved bilateral neck crepitus Right IJ is clean dry and intact. CARDIOVASCULAR: IRR. S1, S2 no S4. Without murmur RESPIRATORY: Air entry decreased bilaterally at bases, scattered rhonchi, no wheezing. GASTROINTESTINAL: Abdomen soft, non-tender, nondistended. No guarding. BS active. MUSCULOSKELETAL: Extremities with trace to 1+ B/L lower extremity edema. No obvious deformities. NEUROLOGICAL: Positive corneal reflex. Positive gag. Withdraws to noxious stimulation all 4 extremities though predominantly right upper, right lower and left lower. Follows commands intermittently with right upper extremity, bilateral lower strategies. Per report, Follow commands with intermittently to left upper extremity though I could not elicit on my examination. Procedures 10/03- intubation Urinary Catheter: Yes Assessment to: Continue Franco insert reason: Prolonged Immobilization Date of Insertion: Oct 03, 2016 Vascular Central Line Catheter: Yes Assessment to: Continue Date of Insertion: Oct 04, 2016 Line: Central Venous Catheter Side: Right Location: Internal, Jugular A/P Assessment and Plan Neuro/Psych: Left occipital, bilateral frontal parietal cerebellar CVA subacute Chronic headaches Chronic benzodiazepine use Chronic oxycodone use Seizure MRI 09/10 brain revealed left occipital, bilateral frontal parietal and cerebellar CVA likely ALFIE/OTOLARYNGOLOGY NURSE distribution Followed by Dr. Jeffries/neurology. 10/[address] Prajapati in view of episodes of confusion. Nonfocal. EEG 10/07 bilateral PLEDs with episodic sharp activity MRI brain 10/07 - no acute findings. Residual frontal/parietal and occipital junction CVA. Significant demyelination Currently on fosphenytoin at 100 mg IV twice a day, levetiracetam increased from 500 to 1000 mg IV twice a day and lacosamide 100 mg IV twice a day Repeat EEG today. Follow-up on fosphenytoin level in a.m. Meropenem, linezolid and famotidine all discontinued Currently on alprazolam 0.25 mg every 6 hours PRN Anxiety Currently off propofol and dexmedetomidine for sedation while intubated Goal of RA SS 0 CV: Coronary disease status post CABG ASCVD Carotid stenosis TAAA Hypertension Dyslipidemia History atrial fibrillation status post ablation 2011 Followed by cardiology. Currently off atorvastatin 40 mg daily/home medication for dyslipidemia On PO Apixaban 5 mg twice a day per cardiology. Off amiodarone for suspected pulmonary toxicity Echocardiogram revealed EF 70%. OHS septal motion./Paradoxical, CARA 50-60 mmHg Currently labetalol 100 mg 3 times a day for hypertension. As needed metoprolol for tachycardia Continue aspirin 81 mg by mouth daily Resp: Acute hypoxemic respiratory failure Subcutaneous air neck PRVC 18/600/1.2/ Ventilator bundle Albuterol/ipratropium every 6 hours with albuterol aerosols as indicated 3rd intubation. Last 10/03 likely will need trach Chest x-ray 10/08 - improved bilateral subcutaneous neck. No obvious pneumothorax. CT chest ruled out pneumothorax Likely barotrauma from mechanical ventilation. PEEP decreased from 10-5 . 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 Encinas Continue antibiotics per ID Dr. Nova - recommending lung biopsy CT surgery - [place] [facility]: Currently resuming Suplena goal 55 cc an hour (per dietary recommendations) due to high tube feed residuals Increased from 30 cc to goal 50 cc today. On sucralfate 1 g by mouth 4 times daily for GI prophylaxis Docusate sodium 100 mg twice a day, senna liquid 8.6 mg twice a day and polyethylene glycol 3350 17 g twice daily for bowel regimen Continue metoclopramide 5 mill grams IV every 8 hours 10/07 negative KUB. LIWS NGT LESS than 100 cc overnight History of hydroureter Renal ultrasound revealed no hydronephrosis Reinsert Franco- intubated and receiving diuretics- Strict I&O's Endo: Sliding scale insulin with Novulog with Accu-Cheks every 6 hours/low regimen Renal: Acute on chronic kidney injury Currently holding furosemide 20 mg by mouth daily Nephrology follow-up.. 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 Slowly wean steroids due to this issue as above pulmonary section. Dr. Cerda following Creatinine currently 1.5. Noted BUN slightly increased Heme: History of colon cancer status post partial colectomy History of bladder cancer normocytic anemia Leukocytosis Monitor CBC daily. Follow trends. Noted elevated lambda and kappa Chains/ESR likely secondary underlying acute kidney injury. Evaluated by Dr. Mccollum/hematology ID: Likely hospital-acquired pneumonia On meropenem//linezolid since 09/27 through 10/07 Pertinent cultures 10/03-repeat blood, urine Legionella and pneumococcal antigens and sputum cultures no growth 10/03-influenza negative 09/28 - blood cultures 2 - no growth 09/22 - sputum - no growth 09/16 - blood cultures 2 - no growth Recheck sputum today FEN: Hypernatremia Hyperphosphatemia Hyper-magnesium Monitor and replete electrolytes Continue calcium acetate 667 mg 3 times a day Remove milk of magnesia from MAR Continue one half normal saline at 42 cc an hour. Added free water 200 cc every 4 hours. MSK: PT evaluate and treat Prophylaxis - GI -sucralfate - DVT - SCD/apixaban Access - Right subclavian CVL placed 09/16 - 10/04 - Right IJ CVL 10/04 present Critical Care: The total critical care time was 30 minutes. Time to perform other separately billable procedures was not included in the critical care time. Zay Romero MD Oct 09, 2016 06:32
[2016-10-09 07:59] LABS: SCAN/DIFF AUTO DIFF CONFIRMED
[2016-10-09] MEDS: CHLORHEXIDINE 0.12% (ORAL KIT) 15 ML CUP MT SCH ×4 (08:00→20:10)
[2016-10-09] MEDS: levETIRAcetam 1000 MG INJ 100 ML IV SCH ×2 (08:57→20:11)
[2016-10-09] MEDS: SODIUM CHLORIDE 0.9% FLUSH 10 ML FLUSH IV FLUSH SCH ×2 (08:59→20:11)
[2016-10-09] MEDS: POLYETHYLENE GLYCOL 17 GM PKG NG SCH ×2 (09:00→20:13)
[2016-10-09] MEDS: SODIUM CHLORIDE 0.9% FLUSH 10 ML FLUSH IVF SCH (09:00)
[2016-10-09] MEDS: SODIUM CHLOR 0.45% 1000 ML INJ 1,000 ML IV SCH (09:00)
[2016-10-09] MEDS: SENNOSIDES SYRUP 8.8 MG/5 ML CUP NG SCH ×2 (09:00→20:13)
[2016-10-09] MEDS: ASPIRIN EC 81 MG TABEC PO SCH (09:01)
[2016-10-09] MEDS: LABETALOL HCL 100 MG TAB PO SCH ×3 (09:01→17:36)
[2016-10-09] MEDS: APIXABAN 5 MG TABLET PO SCH ×2 (09:01→20:10)
[2016-10-09] MEDS: methylPREDNISolone SOD SUCC 40 MG/1 ML VIAL IV PUSH SCH (09:02)
[2016-10-09] MEDS: DOCUSATE SODIUM 100 MG/10 ML UDC NG SCH ×2 (09:02→20:11)
[2016-10-09] MEDS: CALCIUM ACETATE 667 MG CAP PO SCH ×3 (09:02→17:36)
[2016-10-09] MEDS: CYANOCOBALAMIN 1000 MCG/ML VIAL SQ SCH (09:02)
[2016-10-09] MEDS ORDERED: ALTEPLASE RECOMBINANT 2 MG VIAL IV FLUSH PRN (11:00)
--- NOTE | 2016-10-09 12:10 | HHI.PR ---
Subjective Remarks off sedation Objective Vital Signs Date Time Temp Pulse Resp B/P (MAP) Pulse Ox O2 Delivery O2 Flow Rate FiO2 10/09/16 11:00 94 Mechanical Ventilator 45 10/09/16 11:00 98.9 90 21 156/93 (114) 94 10/09/16 11:00 90 10/09/16 11:00 45 10/09/16 09:04 97 45 10/09/16 08:19 98 50 10/09/16 07:00 100.8 96 18 146/89 (108) 98 10/09/16 07:00 96 10/09/16 07:00 50 10/09/16 07:00 98 Mechanical Ventilator 50 10/09/16 03:42 99 50 10/09/16 03:00 99.3 90 20 125/76 (92) 99 10/09/16 03:00 50 10/09/16 03:00 99 Mechanical Ventilator 50 10/09/16 03:00 90 10/09/16 00:30 96 50 10/08/16 23:00 97 Mechanical Ventilator 50 10/08/16 23:00 91 10/08/16 23:00 50 10/08/16 23:00 99.3 91 20 156/96 (116) 99 10/08/16 21:05 97 50 10/08/16 19:00 88 10/08/16 19:00 97 Mechanical Ventilator 50 10/08/16 19:00 99.5 88 23 140/87 (104) 97 10/08/16 19:00 50 10/08/16 16:10 97 50 10/08/16 15:00 94 Mechanical Ventilator 50 10/08/16 15:00 88 10/08/16 15:00 50 10/08/16 15:00 97.8 88 21 122/78 (93) 94 10/08/16 12:53 97 45 I/O 10/08/16 10/08/16 10/08/16 10/09/16 10/09/16 10/09/16 07:00 15:00 23:00 07:00 15:00 23:00 Intake Total 739 ml 155 ml 540 ml 632 ml 210 ml Output Total 1115.0 ml 950 ml 1150 ml Balance -376.0 ml 155 ml -410 ml -518 ml 210 ml IV Total 649 ml 155 ml 210 ml Tube Feeding 140 ml 232 ml Tube Irrigant 90 ml Other 400 ml 400 ml Output Urine Total 905 ml 900 ml 1150 ml Stool Total 200 ml 50 ml Tube Feeding Residual Discard 10.0 ml Result Diagram: 10/09/1642910/09/16429 Other Results pht 8.2 album 2.4 Objective Remarks intubated off sedations eyes open follows commands with feet to wiggle toes informed by nurse does same and at times more for her eval. Assessment and Plan Assessment and Plan seizures-improved eeg better cont pht,vim and lev monitor pht level adjust to albumin. Adrienne Lagunas MD Oct 09, 2016 12:10
--- NOTE | 2016-10-09 13:00 | PD.CARD.PN ---
Subjective Subjective Remarks Information obtained from RN and EMR. Tmax 100.8, slight increase of WBCs. Epileptiform activity improving. Stable from cardiac standpoint. FiO2 40%, occasional breathes over the vent. Follows commands off sedation. H/H stable. Urine less concentrated. Free water started yesterday. Na up a little (Elin Kwok) Objective Medications Current Medications Medications (Trade) Dose Ordered Sig/Awilda Route Start Time Stop Time Status Last Admin (NS Flush) 2 ml UNSCH PRN IV FLUSH 09/09/16 00:45 (NS Flush) 2 ml BID IV FLUSH 09/09/16 09:00 10/09/16 08:59 (Narcan Inj) 0.4 mg UNSCH PRN IV 09/09/16 00:45 (Pill Splitter) 1 ea UNSCH PRN OTHER 09/09/16 14:00 (Eliquis) 5 mg BID PO 09/10/16 09:00 10/09/16 09:01 (Catapres) 0.1 mg Q6H PRN PO 09/11/16 14:30 09/19/16 23:02 (Lopressor Inj) 5 mg Q2HR PRN IV PUSH 09/16/16 14:00 09/26/16 05:00 (Apresoline Inj) 10 mg Q6HR PRN IV PUSH 09/16/16 12:45 10/07/16 10:46 (Racepinephrine 2.25% Neb) 0.5 ml Q1HR NEB PRN NEB 09/17/16 17:15 09/17/16 18:02 (Dulcolax Supp) 10 mg DAILY PRN RECTAL 09/19/16 13:30 (Albuterol Neb) 2.5 mg Q2HR NEB PRN NEB 09/21/16 12:00 10/02/16 21:16 (Phoslo) 667 mg TID PO 09/21/16 18:00 10/09/16 12:14 (Peridex 0.12% Liq) 15 ml BID@08,20 MT 09/22/16 20:00 10/09/16 08:59 (Ecotrin Ec) 81 mg DAILY PO 09/30/16 09:00 10/09/16 09:01 (Trandate) 100 mg TID PO 09/30/16 13:00 10/09/16 12:14 (NovoLOG SUPPLEMENTAL SCALE) 1 Q6HR SQ 10/01/16 13:15 10/09/16 12:15 (D50w (Vial) Inj) 50 ml UNSCH PRN IV PUSH 10/01/16 13:15 (Glucagon Inj) 1 mg UNSCH PRN OTHER 10/01/16 13:15 (Lasix Inj) 40 mg UNSCH IV 10/02/16 09:30 10/02/16 22:59 (Tears Naturale Opth Soln) 1 drop Q8HR EACH EYE 10/03/16 14:00 10/09/16 05:24 (Colace Liq) 100 mg Q12HR NG 10/04/16 09:00 10/09/16 09:02 (Senna Liq) 8.8 mg BID NG 10/04/16 09:00 10/08/16 21:17 (NS Flush) DAILY IVF 10/04/16 12:45 10/06/16 08:09 (NS Flush) UNSCH PRN IVF 10/04/16 12:45 (Miralax) 17 gm BID NG 10/05/16 09:00 10/08/16 21:00 (Peridex 0.12% Liq) 15 ml BID@08,20 MT 10/07/16 08:00 (SoluMEDROL INJ) 40 mg BID IV PUSH 10/07/16 09:00 10/09/16 09:02 (Reglan Inj) 5 mg Q8HR IV PUSH 10/07/16 08:00 10/09/16 05:24 Dexmedetomidine HCl 200 mcg/ Sodium Chloride 52 ml @ 4.64 mls/hr TITRATE PRN IV 10/07/16 13:00 (Trandate Inj) 10 mg Q1HR PRN IV PUSH 10/07/16 13:00 (Nitroglycerin 2% Oint) 2 inch Q6HR PRN TOPICAL 10/07/16 13:00 (Duoneb Neb) 1 ampule Q6HR NEB NEB 10/07/16 16:00 10/09/16 09:00 Propofol 100 ml @ 2.682 mls/ hr TITRATE PRN IV 10/07/16 17:00 10/07/16 19:34 (Vitamin B12 Inj) 1,000 mcg DAILY SQ 10/08/16 09:00 10/11/16 08:59 10/09/16 09:02 (Cerebyx Inj) 100 mgpe Q8HR IV 10/08/16 06:00 10/09/16 05:24 (Carafate Liq) 1 gm Q6HR NG 10/08/16 12:00 10/09/16 12:13 Sodium Chloride 1,000 ml @ 42 mls/hr [id number] IV 10/08/16 08:00 10/09/16 09:00 Lacosamide 200 mg/ Sodium Chloride 120 ml @ 110 mls/hr Q12H IV 10/09/16 00:00 10/09/16 12:13 (Free Water) 200 ml Q4HR G-TUBE 10/09/16 08:00 10/09/16 12:00 Levetriacetam 100 ml @ 400 mls/hr Q12HR IV 10/09/16 09:00 10/09/16 08:57 (Cathflo Activase Inj) 6 mg UNSCH X1 PRN IV FLUSH 10/09/16 11:00 10/09/16 23:59 Vital Signs / I&O Vital Signs Date Time Temp Pulse Resp B/P (MAP) Pulse Ox O2 Delivery O2 Flow Rate FiO2 10/09/16 12:07 97 40 10/09/16 11:00 94 Mechanical Ventilator 45 10/09/16 11:00 98.9 90 21 156/93 (114) 94 10/09/16 11:00 90 10/09/16 11:00 45 10/09/16 09:04 97 45 10/09/16 08:19 98 50 10/09/16 07:00 100.8 96 18 146/89 (108) 98 10/09/16 07:00 96 10/09/16 07:00 50 10/09/16 07:00 98 Mechanical Ventilator 50 10/09/16 03:42 99 50 10/09/16 03:00 99.3 90 20 125/76 (92) 99 10/09/16 03:00 50 10/09/16 03:00 99 Mechanical Ventilator 50 10/09/16 03:00 90 10/09/16 00:30 96 50 10/08/16 23:00 97 Mechanical Ventilator 50 10/08/16 23:00 91 10/08/16 23:00 50 10/08/16 23:00 99.3 91 20 156/96 (116) 99 10/08/16 21:05 97 50 10/08/16 19:00 88 10/08/16 19:00 97 Mechanical Ventilator 50 10/08/16 19:00 99.5 88 23 140/87 (104) 97 10/08/16 19:00 50 10/08/16 16:10 97 50 10/08/16 15:00 94 Mechanical Ventilator 50 10/08/16 15:00 88 10/08/16 15:00 50 10/08/16 15:00 97.8 88 21 122/78 (93) 94 10/08/16 12:53 97 45 I/O 10/08/16 10/08/16 10/08/16 10/09/16 10/09/16 10/09/16 06:59 14:59 22:59 06:59 14:59 22:59 Intake Total 739 ml 155 ml 540 ml 632 ml 210 ml Output Total 1115.0 ml 950 ml 1150 ml Balance -376.0 ml 155 ml -410 ml -518 ml 210 ml IV Total 649 ml 155 ml 210 ml Tube Feeding 140 ml 232 ml Tube Irrigant 90 ml Other 400 ml 400 ml Output Urine Total 905 ml 900 ml 1150 ml Stool Total 200 ml 50 ml Tube Feeding Residual Discard 10.0 ml Physical Exam GENERAL: Elderly male, intubated. SKIN: Warm and dry. HEAD: Normocephalic. EYES: No scleral icterus. No injection or drainage. NECK: Supple, trachea midline CARDIOVASCULAR: Midline incision healing well, reg rate and rhythm RESPIRATORY: Intubated GASTROINTESTINAL: Abdomen soft, non-tender, nondistended. MUSCULOSKELETAL: No cyanosis, no BLE edema BACK: Nontender without obvious deformity. Laboratory Laboratory Tests Test 10/09/16 04:30 White Blood Count 14.6 TH/MM3 Red Blood Count 3.31 MIL/MM3 Hemoglobin 9.5 GM/DL Hematocrit 30.4 % Mean Corpuscular Volume 91.6 FL Mean Corpuscular Hemoglobin 28.7 PG Mean Corpuscular Hemoglobin Concent 31.3 % Red Cell Distribution Width 16.4 % Platelet Count 260 TH/MM3 Mean Platelet Volume 7.6 FL Neutrophils (%) (Auto) 83.5 % Lymphocytes (%) (Auto) 9.8 % Monocytes (%) (Auto) 5.7 % Eosinophils (%) (Auto) 0.6 % Basophils (%) (Auto) 0.4 % Neutrophils # (Auto) 12.2 TH/MM3 Lymphocytes # (Auto) 1.4 TH/MM3 Monocytes # (Auto) 0.8 TH/MM3 Eosinophils # (Auto) 0.1 TH/MM3 Basophils # (Auto) 0.1 TH/MM3 CBC Comment AUTO DIFF Differential Comment AUTO DIFF CONFIRMED Blood Urea Nitrogen 109 MG/DL Creatinine 1.54 MG/DL Random Glucose 139 MG/DL Total Protein 6.1 GM/DL Albumin 2.4 GM/DL Calcium Level 8.9 MG/DL Phosphorus Level 3.1 MG/DL Magnesium Level 2.6 MG/DL Alkaline Phosphatase 57 U/L Aspartate Amino Transf (AST/SGOT) 25 U/L Alanine Aminotransferase (ALT/SGPT) 23 U/L Total Bilirubin 0.6 MG/DL Sodium Level 148 MEQ/L Potassium Level 5.0 MEQ/L Chloride Level 108 MEQ/L Carbon Dioxide Level 32.9 MEQ/L Anion Gap 7 MEQ/L Estimat Glomerular Filtration Rate 44 ML/MIN Imaging Last 72 hours Impressions Chest X-Ray 10/09/16 0600 Signed Impressions: Service Date/Time: Sunday, October 09, 2016 04:09 - CONCLUSION: 1. Support apparatus in satisfactory position. Interstitial and hazy airspace disease similar to prior exam. Amado Crain MD Chest X-Ray 10/08/16 0600 Signed Impressions: Service Date/Time: Saturday, October 08, 2016 03:51 - CONCLUSION: Stable interstitial and airspace opacities bilaterally. Jarad Delgado MD Brain MRI 10/07/16 0000 Signed Impressions: Service Date/Time: September 21:45 - CONCLUSION: 1. Residual small areas of infarction seen bilaterally. There are fewer areas of signal abnormality seen on the diffusion-weighted images on the current exam. New areas of infarction are not present. 2. Areas of demyelination throughout the cerebral and pontine white matter likely from small vessel ischemic change. 3. Fluid in the mastoid air cells. Jarad Cat MD Abdomen X-Ray 10/07/16 0000 Signed Impressions: Service Date/Time: September 08:32 - CONCLUSION: Unremarkable bowel gas pattern. Sanya Cavazos MD (Elin Kwok) Assessment and Plan Problem List: (1) History of CVA (cerebrovascular accident) ICD Codes: Z86.73 - Personal history of transient ischemic attack (TIA), and cerebral infarction without residual deficits Status: Acute (2) CKD (chronic kidney disease) stage 3, GFR 30-59 ml/min ICD Codes: N18.3 - Chronic kidney disease, stage 3 (moderate) Status: Acute (3) S/P CABG x 3 ICD Codes: Z95.1 - Presence of aortocoronary bypass graft Status: Acute (4) Atrial fibrillation ICD Codes: I48.91 - Unspecified atrial fibrillation (5) Acute hypoxemic respiratory failure ICD Codes: J96.01 - Acute respiratory failure with hypoxia Status: Acute (6) Hypertension ICD Codes: I10 - Essential (primary) hypertension Status: Acute (7) Thoracic aortic aneurysm without rupture ICD Codes: I71.2 - Thoracic aortic aneurysm, without rupture Status: Acute Assessment and Plan PLAN: Continue labetalol and Eliquis Weaning high dose steroids Check UA, fever could be related to seizure, leukocytosis due to steroids SBP goal < 130 DBP goal < 90. The patient was seen and evaluated by Dr. Moran who completed a [id number] encounter, completed a physical exam and participated in evaluation and management. (Elin Kwok) Assessment and Plan The exam, history, and the medical decision-making described in the above note were completed with the assistance of the mid-level provider. I reviewed and agree with the findings presented. I attest that I had a [id number] encounter with the patient on the same day, and personally performed and documented my assessment and findings in the medical record. doing better but now has seizures, Dr Bryson following (Suellen Moran MD) Elin Kwok Oct 09, 2016 12:59 Suellen Moran MD Oct 10, 2016 14:34
[2016-10-09 16:45] LABS: BACTERIA, URINE OCC /hpf; BLOOD, URINE MOD (NEG); GLUCOSE,URINE NEG (NEG); KETONE, URINE NEG (NEG); MUCUS URINE FEW /lpf (OCC); NITRITE,URINE NEG (NEG); PH, URINE 5.5 (5.0-8.5); URIC ACID CRYSTALS, URINE OCC /hpf; URINE COLOR YELLOW (YELLW/STRAW)
[2016-10-09 16:48] LABS: COMMENT (UR) CATH-CULTURE IND; CULTURE IF INDICATED CATH CULTURE IND
--- NOTE | 2016-10-09 18:45 | HHI.PR ---
Subjective Remarks Intubated and on a ventilator , with FIo2 at 40 %. Chest X Ray is better Had seizure activity last PM. Now on anti seizure meds.Off sedation. .Good output. Objective Vital Signs Date Time Temp Pulse Resp B/P (MAP) Pulse Ox O2 Delivery O2 Flow Rate FiO2 10/09/16 15:27 93 40 10/09/16 15:00 40 10/09/16 15:00 97 Mechanical Ventilator 40 10/09/16 15:00 98.8 79 18 119/70 (86) 97 10/09/16 15:00 79 10/09/16 12:07 97 40 10/09/16 11:00 94 Mechanical Ventilator 45 10/09/16 11:00 98.9 90 21 156/93 (114) 94 10/09/16 11:00 90 10/09/16 11:00 45 10/09/16 09:04 97 45 10/09/16 08:19 98 50 10/09/16 07:00 100.8 96 18 146/89 (108) 98 10/09/16 07:00 96 10/09/16 07:00 50 10/09/16 07:00 98 Mechanical Ventilator 50 10/09/16 03:42 99 50 10/09/16 03:00 99.3 90 20 125/76 (92) 99 10/09/16 03:00 50 10/09/16 03:00 99 Mechanical Ventilator 50 10/09/16 03:00 90 10/09/16 00:30 96 50 10/08/16 23:00 97 Mechanical Ventilator 50 10/08/16 23:00 91 10/08/16 23:00 50 10/08/16 23:00 99.3 91 20 156/96 (116) 99 10/08/16 21:05 97 50 10/08/16 19:00 88 10/08/16 19:00 97 Mechanical Ventilator 50 10/08/16 19:00 99.5 88 23 140/87 (104) 97 10/08/16 19:00 50 I/O 10/08/16 10/08/16 10/08/16 10/09/16 10/09/16 10/09/16 07:00 15:00 23:00 07:00 15:00 23:00 Intake Total 739 ml 155 ml 540 ml 632 ml 210 ml 834 ml Output Total 1115.0 ml 950 ml 1150 ml 950 ml Balance -376.0 ml 155 ml -410 ml -518 ml 210 ml -116 ml IV Total 649 ml 155 ml 210 ml Tube Feeding 140 ml 232 ml 234 ml Tube Irrigant 90 ml Other 400 ml 400 ml 600 ml Output Urine Total 905 ml 900 ml 1150 ml 950 ml Stool Total 200 ml 50 ml 0 ml Tube Feeding Residual Discard 10.0 ml Result Diagram: 10/09/1642910/09/16429 Objective Remarks GENERAL: This moderately overweight elderly man ,Intubated on the vent. HEENT: Head is normocephalic. Pupils are reactive. Tongue is moist. Throat clear NECK: No venous distention.Trachea is midline. No thyroid enlargement. CHEST: Equal movements with diminished breath sounds at the bases with Occ basal crackles. HEART: Sounds are irregular S1-S2. No murmur. ABDOMEN: Soft. Protuberant without masses. No organomegaly. EXTREMITIES: Decreased pulses. No Edema SKIN: warm. Neuro : lethargic.Moves arms. Assessment and Plan Assessment and Plan IMPRESSION 1. Acute respiratory failure.Resolving 2. Fluid overload status with pulmonary edema. 3. Acute kidney failure.Resolving 4. History of cerebrovascular accident. 5. Bibasilar atelectasis with possible pneumonia. 6. History of colon cancer and bladder cancer. 7. Possible Hypersensitivity Pneumonia or Edema Plan : 1. 2. FIO2 at 40 %and wean to keep sat >92. 3. Nebs qid ,Duoneb. 4. CPAP trial daily and resp parameters 5. Antibiotics per ID 6. Neuro Evaluation 7. Trial of extubation if he meets Criteria. 8. CBC,BMP in am 9. Hold trach for now. 10. solumedrol IV 40 mg daily. Jaime Encinas MD Oct 09, 2016 18:45
--- NOTE | 2016-10-09 20:16 | HHI.IDPN ---
Subjective Subjective Remarks ID Xcover for Dr Banks chart was reviewed 75 yo male with pulmonary infiltrates and recurretn resp failarnele dw RN remains on vent Not much ETT secretions, lotsd of oral + low grade fever x 1 in the last 24 hrs up to 100.8 Patient on the vent PEEP 8, FiO2 40% Off sedation Sputum culture showing nl jayna. Intubated last time 10/03. WBC up to 14 K today Antibiotics PAST MEDICAL HISTORY 1. Coronary artery disease. 2. History of atrial fibrillation. 3. History of aortic aneurysm. 4. Bladder cancer treated with cystectomy. 5. Coronary artery bypass graft surgery. 6. Colon cancer history. 7. Peripheral vascular disease. 8. Hypertension. 9. History of transurethral resection of bladder tumor. 10.History of abdominal aortic aneurysm repair. Allergies: Coded Allergies: atorvastatin (Verified Allergy, Severe, back pain and chest pain, 09/21/16) PATIENT REPORTS HE CAN NOT TAKE ANY STATINS PERIOD. HE LOSES USE OF HIS LEGS pantoprazole (Verified Allergy, Severe, INTERSTITIAL NEPHRITIS, 09/25/16) pravastatin (Verified Allergy, Severe, 09/21/16) PATIENT REPORTS HE CAN NOT TAKE ANY STATINS PERIOD. HE LOSES USE OF HIS LEGS simvastatin (Verified Allergy, Severe, body aches, 09/21/16) PATIENT REPORTS HE CAN NOT TAKE ANY STATINS PERIOD. HE LOSES USE OF HIS LEGS Objective . Vital Signs Date Time Temp Pulse Resp B/P (MAP) Pulse Ox O2 Delivery O2 Flow Rate FiO2 10/09/16 15:27 93 40 10/09/16 15:00 40 10/09/16 15:00 97 Mechanical Ventilator 40 10/09/16 15:00 98.8 79 18 119/70 (86) 97 10/09/16 15:00 79 10/09/16 12:07 97 40 10/09/16 11:00 94 Mechanical Ventilator 45 10/09/16 11:00 98.9 90 21 156/93 (114) 94 10/09/16 11:00 90 10/09/16 11:00 45 10/09/16 09:04 97 45 10/09/16 08:19 98 50 10/09/16 07:00 100.8 96 18 146/89 (108) 98 10/09/16 07:00 96 10/09/16 07:00 50 10/09/16 07:00 98 Mechanical Ventilator 50 10/09/16 03:42 99 50 10/09/16 03:00 99.3 90 20 125/76 (92) 99 10/09/16 03:00 50 10/09/16 03:00 99 Mechanical Ventilator 50 10/09/16 03:00 90 10/09/16 00:30 96 50 10/08/16 23:00 97 Mechanical Ventilator 50 10/08/16 23:00 91 10/08/16 23:00 50 10/08/16 23:00 99.3 91 20 156/96 (116) 99 10/08/16 21:05 97 50 10/09/16 10/09/16 10/10/16 15:00 23:00 07:00 Intake Total 210 ml 834 ml Output Total 950 ml Balance 210 ml -116 ml IV Total 210 ml Tube Feeding 234 ml Other 600 ml Output Urine Total 950 ml Stool Total 0 ml . Laboratory Tests Test 10/08/16 04:27 10/09/16 04:30 White Blood Count 13.8 TH/MM3 14.6 TH/MM3 Red Blood Count 3.54 MIL/MM3 3.31 MIL/MM3 Hemoglobin 10.4 GM/DL 9.5 GM/DL Hematocrit 32.3 % 30.4 % Mean Corpuscular Volume 91.3 FL 91.6 FL Mean Corpuscular Hemoglobin 29.4 PG 28.7 PG Mean Corpuscular Hemoglobin Concent 32.1 % 31.3 % Red Cell Distribution Width 16.4 % 16.4 % Platelet Count 286 TH/MM3 260 TH/MM3 Mean Platelet Volume 8.0 FL 7.6 FL Neutrophils (%) (Auto) 75.5 % 83.5 % Lymphocytes (%) (Auto) 13.9 % 9.8 % Monocytes (%) (Auto) 9.9 % 5.7 % Eosinophils (%) (Auto) 0.5 % 0.6 % Basophils (%) (Auto) 0.2 % 0.4 % Neutrophils # (Auto) 10.4 TH/MM3 12.2 TH/MM3 Lymphocytes # (Auto) 1.9 TH/MM3 1.4 TH/MM3 Monocytes # (Auto) 1.4 TH/MM3 0.8 TH/MM3 Eosinophils # (Auto) 0.1 TH/MM3 0.1 TH/MM3 Basophils # (Auto) 0.0 TH/MM3 0.1 TH/MM3 CBC Comment DIFF FINAL AUTO DIFF Differential Comment AUTO DIFF CONFIRMED Laboratory Tests Test 10/07/16 21:25 10/08/16 04:27 10/09/16 04:30 Blood Urea Nitrogen 113 MG/DL 118 MG/DL 109 MG/DL Creatinine 1.57 MG/DL 1.54 MG/DL 1.54 MG/DL Random Glucose 110 MG/DL 115 MG/DL 139 MG/DL Calcium Level 9.3 MG/DL 8.8 MG/DL 8.9 MG/DL Phosphorus Level 2.8 MG/DL 3.1 MG/DL Magnesium Level 2.8 MG/DL 2.6 MG/DL Sodium Level 144 MEQ/L 146 MEQ/L 148 MEQ/L Potassium Level 4.8 MEQ/L 4.3 MEQ/L 5.0 MEQ/L Chloride Level 102 MEQ/L 105 MEQ/L 108 MEQ/L Carbon Dioxide Level 34.8 MEQ/L 32.8 MEQ/L 32.9 MEQ/L Anion Gap 7 MEQ/L 8 MEQ/L 7 MEQ/L Estimat Glomerular Filtration Rate 43 ML/MIN 44 ML/MIN 44 ML/MIN Total Protein 6.1 GM/DL Albumin 2.4 GM/DL Alkaline Phosphatase 57 U/L Aspartate Amino Transf (AST/SGOT) 25 U/L Alanine Aminotransferase (ALT/SGPT) 23 U/L Total Bilirubin 0.6 MG/DL Microbiology Date/Time Source Procedure Growth Status 10/09/16 14:00 Urine Catheterized Urine Urine Culture Pending Received Imaging Last Impressions Chest X-Ray 10/09/16 0600 Signed Impressions: Service Date/Time: Sunday, October 09, 2016 04:09 - CONCLUSION: 1. Support apparatus in satisfactory position. Interstitial and hazy airspace disease similar to prior exam. Amado Crain MD Brain MRI 10/07/16 0000 Signed Impressions: Service Date/Time: September 21:45 - CONCLUSION: 1. Residual small areas of infarction seen bilaterally. There are fewer areas of signal abnormality seen on the diffusion-weighted images on the current exam. New areas of infarction are not present. 2. Areas of demyelination throughout the cerebral and pontine white matter likely from small vessel ischemic change. 3. Fluid in the mastoid air cells. Jarad Cat MD Abdomen X-Ray 10/07/16 0000 Signed Impressions: Service Date/Time: September 08:32 - CONCLUSION: Unremarkable bowel gas pattern. Sanya Cavazos MD Neck CT 10/05/16 0000 Signed Impressions: Service Date/Time: Wednesday, October 05, 2016 10:41 - CONCLUSION: Extensive subcutaneous emphysema. Jarad De Jesus MD Chest CT 10/05/16 0000 Signed Impressions: Service Date/Time: Wednesday, October 05, 2016 10:43 - CONCLUSION: Prior median sternotomy cardiac surgery atherosclerotic cardiovascular disease with left ventricular cardiomegaly and evidence of interstitial alveolar edema in both lungs consistent with CHF. Support tubes in place with subcutaneous emphysema in the soft tissues of neck bilaterally and supraclavicular. There is no evidence of pneumothorax. Lele Escudero MD Head Magnetic Resonance Angiography 09/10/16 1028 Signed Impressions: Service Date/Time: Saturday, September 10, 2016 10:57 - CONCLUSION: 1. Unremarkable MRA examination without evidence for large vessel occlusion, aneurysm, or vascular malformation. Richardson Haney MD Carotid Artery Ultrasound 09/09/16 1028 Signed Impressions: Service Date/Time: September 10:43 - CONCLUSION: 1. Moderate visible plaque without hemodynamically significant stenosis identified. No significant change from August 25. Amado Crain MD Renal Ultrasound 09/09/16 0000 Signed Impressions: Service Date/Time: September 15:41 - CONCLUSION: 1. Cortical atrophy with small bilateral renal cysts. No hydronephrosis. Amado Crain MD Head CT 09/08/16 2251 Signed Impressions: Service Date/Time: Thursday, September 08, 2016 23:41 - CONCLUSION: Stable noncontrast CT with no evidence of hemorrhage or acute infarction. Atrophy and chronic small vessel splenic changes remain. Sanya Cavazos MD Physical Exam CONSTITUTIONAL/GENERAL: This is an adequately nourished patient, in no apparent distress. Intubated, on vent TUBES/LINES/DRAINS: SKIN: No jaundice, rashes, or lesions. HEAD: Atraumatic. Normocephalic. EYES: Pupils equal and round and reactive. Extraocular motions intact. No scleral icterus. No injection or drainage. Fundi not examined. ENT: Hearing not tested . Nose without bleeding or purulent drainage. Oral mucosae without visible erythema, exudates, masses, or lesions. Orally intubated NECK: Trachea midline. Supple, nontender. CARDIOVASCULAR: Regular rate and rhythm without murmurs, gallops, or rubs. No JVD. Peripheral pulses symmetric. RESPIRATORY/CHEST: Symmetric, unlabored respirations. Coarse BS to auscultation. . GASTROINTESTINAL: Abdomen soft, non-tender, nondistended. No hepato-splenomegaly , or palpable masses. No guarding. Bowel sounds present. Small amount o f liquid dark brown stool in dignishield bag GENITOURINARY: Without palpable bladder distension. Franco catheter in place with somewhat cloudy yellow urine MUSCULOSKELETAL: Extremities without clubbing, cyanosis, or edema. NEUROLOGICAL: Unresponsive currently, but was following commnads for other providers PSYCHIATRIC: unable to assess Assessment & Plan Remarks 1. Acute respiratory failure. 3rd intubation. 2. Bilateral lung infiltrates, - negative cultures. Pulmonary thinks amiodarone toxicity. 3. Leukocytosis. WBC improving. 4. Acute kidney disease. Receiving Hemodialysis. New low grade fever, abnormal UA RECOMMENDATIONS fu urine clx no abx at this point further rec's to follow per clx reports and clin progress dw Christina Loving MD Oct 09, 2016 20:16
--- NOTE | 2016-10-09 20:42 | MG ---
cc: ADRIENNE LAGUNAS M.D. Lab No: [id number] Date: 10/09/16 Age: 75 Sex: M Race: DATE OF [address] Jeffries ROOM 446 Intubated. No sedation. Withdrew bilateral lower extremities only. Following commands. Weak on the left side. MRI small infarction seen bilaterally. EEG followup, on Keppra, Cerebyx and lacosamide. ___ 00:30 sharp waves seen bilaterally, seen at EPOC 6. Some mild slowing ____00:39. There is some again some sharp waves at EPOC 30, and again at EPOC 37. IMPRESSION Abnormal EEG due to ___1:05 some sharp wave seen. ___ in the recording. Clinical correlation. Adrienne Lagunas MD DF/EO /6:56 PM /8:29 PM
[2016-10-10] VITALS (13 sets, daily range): BP systolic 108–146; BP diastolic 64–86; PULSE 77–97; RESP 18–20; TEMP 98.2–99.8; O2SAT 92–98
[2016-10-10] MEDS: LACOSAMIDE INJ 200 MG in SODIUM CHLORIDE 0.9% INJ 100 ML IV SCH ×2 (00:04→12:49)
[2016-10-10] MEDS: SUCRALFATE 1 GM/10 ML CUP NG SCH ×4 (00:06→18:19)
[2016-10-10] MEDS: METOPROLOL TARTRATE 5 MG/5 ML VIAL IV PUSH PRN (00:40)
[2016-10-10] MEDS: FREE WATER G-TUBE SCH ×6 (04:00→20:00)
[2016-10-10 04:12] LABS: BASOPHIL # 0.2 TH/MM3 (0-0.2); EOSINOPHIL # 1.4 TH/MM3 (0-0.4); EOSINOPHIL % 8.2 % (0.0-4.0); HEMATOCRIT 27.5 % (39.0-51.0); HEMO FLAGS DIFF FINAL; LYMPH % 10.2 % (9.0-44.0); LYMPHOCYTE # 1.8 TH/MM3 (1.0-4.8); MEAN CELL VOLUME 92.2 FL (80.0-100.0); MEAN CORPUSCULAR HEMOGLOBIN 29.1 PG (27.0-34.0); MEAN CORPUSCULAR HGB CONC 31.5 % (32.0-36.0); MONO % 7.1 % (0.0-8.0); NEUT % 73.5 % (16.0-70.0); PLATELET COUNT 201 TH/MM3 (150-450); RED BLOOD COUNT 2.99 MIL/MM3 (4.50-5.90); RED CELL DISTRIBUTION WIDTH 16.6 % (11.6-17.2); WHITE BLOOD COUNT 17.7 TH/MM3 (4.0-11.0)
[2016-10-10] MEDS: RESP: ALBUTEROL 2.5 MG/IPRATROPIUM 0.5 MG NEB (SCH) NEB ×4 (04:16→20:37)
[2016-10-10 04:35] LABS: BICARBONATE 33.6 MEQ/L (21.0-32.0); MAGNESIUM 2.2 MG/DL (1.5-2.5); POTASSIUM 4.6 MEQ/L (3.5-5.1)
--- NOTE | 2016-10-10 05:30 | RADRPT ---
EXAM DATE/TIME: 10/10/2016 04:25 [facility] COMPARISON: CHEST SINGLE AP, October 09, 2016, 4:09. INDICATIONS : Respiratory failure, Post TIA MEDICAL HISTORY : TIA Myocardial infarction. Cardiovascular disease. Aneurysm, SURGICAL HISTORY : CABG. Abdominal aortic aneurysm repair. ENCOUNTER: Subsequent ACUITY: 1 month PAIN SCORE: Non-responsive. LOCATION: Bilateral chest FINDINGS: A single view of the chest demonstrates endotracheal tube in satisfactory position. Nasogastric tube in stomach Central line in superior vena cava. Bilateral patchy airspace disease interstitial prominence. No pne umothorax. CONCLUSION: 1. Support apparatus in satisfactory position. Patchy airspace and interstitial changes similar to Se ptember 2. Amado Crain MD on October 10, 2016 at 5:27 Board Certified Radiologist. This report was verified electronically.
[2016-10-10] MEDS: METOCLOPRAMIDE HCL 10 MG/2 ML VIAL IV PUSH SCH ×3 (05:39→21:28)
[2016-10-10] MEDS: FOSPHENYTOIN SODIUM 100 MG PE/2 ML VIAL IV SCH ×3 (05:39→21:28)
[2016-10-10] MEDS: ARTIFICIAL TEARS OPTH SOLN 15 ML BTL EACH EYE SCH ×3 (05:40→21:29)
[2016-10-10] MEDS: LABETALOL HCL 100 MG/20 ML VIAL IV PUSH PRN (05:42)
[2016-10-10] MEDS: INSULIN ASPART SUPPLEMENTAL SCALE SQ SCH ×4 (06:00→18:04)
--- NOTE | 2016-10-10 06:15 | HHI.CCPN ---
Subjective Remarks/Hospital Course 75 y/o man now about 4 weeks following CABG complicated by CVA. Presented back 08/28 with new onset right arm weakness. Hospital course has been complicated by CKD and fluid overload. We have attempted BiPAP for several hours but he remains in distress and although oxygenation is acceptable work of breathing is excessive. Worrisome increasing metabolic acidosis. 09/17: Gas exchange much improved. BNP 1681, ScVO2 71%. It appears that cardiac output is more than adequate for peripheral needs and the primary pathology is renal failure and fluid overload. If we can manage volume I can probably get him extubated. 09/18: Diffuse crackles. Needs to be diuresed today. Tolerating extubation but at risk for hypoxemic failure again. 09/20 - Re consulted due to worsening hypoxia. Currently on nonrebreather mask. Chest x-ray shows worsening consolidation right lobe creatinine slightly improved over. Family request transfer to [facility] however refused. We'll attempt to decipher status currently unknown. 09/21: Remains on nonrebreather mask. Saturations between 89-97%. Chest x-ray unchanged. Not tachypnea. Not confused. 09/22: Radiographic studies show diffuse interstitial process with skip areas - more indicative of infectious/inflammatory process. Sats 85% with labored pattern. Required intubation for deteriorating respiratory status. 09/23: Gas exchange improving. Pulmonary infiltrates remain very concerning - if most recent sputum is benign I would not be opposed to steroids. 09/24: Extubated today. On 3 L nasal cannula. Passed swallow evaluation. Appropriate interactive status post extubation. 09/29: Critical care reconsult requested by Dr. Meza for respiratory failure. Patient reportedly was on BiPAP this morning. He was given additional diuretic earlier as he was short of breath. With this he seems to have improved somewhat and has been on a nonrebreather facemask for more than a few hours. He states that he is breathing much better. Patient being adamant about not using BiPAP. I had a detailed conversation about the importance of using BiPAP especially at night in view of his history of sleep apnea. Patient did not appear to be in acute distress though he was requiring a nonrebreather facemask at the time of my evaluation. No urgent need for BiPAP or intubation at this time. In fact patient is stating that he is breathing much better than this morning. 09/30: Remains on nonrebreather facemask. Refused BiPAP at night. States that he is breathing better today than yesterday. 10/01: 02 30 L/m 100% FiO2. O2 sats borderline. Episodes of confusion. When I evaluated the patient he was sitting up in bed and was able to converse. Not using accessory muscles of respirations currently. 10/02: The patient is alert and oriented currently has been weaned down to high flow nasal cannula with an FiO2 of 65%, maintaining O2 saturation to 95%. Patient is appropriately conversant no episodes of confusion noted. 10/03: Yesterday, the patient received 2 units of packed red blood cells with Furosemide dosing in between transfusion of units, with diuresis of approximately 2900 cc. Last night, the patient was noted to have respiratory decompensation, continued refusal to utilize BiPAP during the night. FiO2 requirements increased to 100% this a.m., on high flow nasal cannula, with noted accessory muscle use and inability to speak in complete sentences secondary to dyspnea. The patient received additional dose of Lasix this a.m. , chest x-ray appeared to be worsened this a.m. .Patient subsequently became hypoxic requiring emergent intubation this a.m.., O2 sat saturation 80s on 100 % FiO2. 10/04: Intubated yesterday due to general and hypoxia. Diuresed with 80 mg furosemide 1. Tmax 99.8. Currently 97.8. Tube feeds initiated. No bowel movement. 10/05: Afebrile. Subcutaneous air in neck bilaterally on chest x-ray today. No obvious pneumothorax. No pneumothorax on chest x-ray yesterday post central line placement. Tolerating tube feeding. No bowel movement. 10/06: Currently resting in bed. Subcutaneous air neck much improved. X-ray improved. FiO2 down to 40%. Tolerating tube feeding. One bowel movement. 10/07: Afebrile. Currently on propofol drip at 40 mg/kg per minute. X-ray has improved. Currently not tolerating tube feeds. 2 bowel movements documented. Sedation vacation today ordered. 10/08: Afebrile. Saturations 95% on FiO2 50%. MRI brain showed no acute findings last night. EEG repeated for today. PLEDs on previous EEG. Vimpat along with fosphenytoin added per neurology. Arousable on the ventilator. Tube feeds to be resumed today. Discussed with at length yesterday Subjective: 10/09: MAXIMUM TEMPERATURE 99.5. Currently 99.3. Tube feeds currently at 20 cc an hour. Minimal residuals. Arousable and intermittently follows commands mostly with right upper extremity. Objective Vital Signs Date Time Temp Pulse Resp B/P (MAP) Pulse Ox O2 Delivery O2 Flow Rate FiO2 10/10/16 04:16 92 40 10/10/16 04:09 86 10/10/16 04:09 98.6 18 135/79 (97) 10/10/16 04:09 Mechanical Ventilator Intake and Output 10/10/16 10/10/16 10/11/16 08:00 16:00 00:00 Intake Total 2110 ml Output Total 1400 ml Balance 710 ml Result Diagram: 10/10/16 0400 10/10/16 0400 Imaging Last Impressions Chest X-Ray 10/09/16 0600 Signed Impressions: Service Date/Time: Sunday, October 09, 2016 04:09 - CONCLUSION: 1. Support apparatus in satisfactory position. Interstitial and hazy airspace disease similar to prior exam. Amado Crain MD Brain MRI 10/07/16 0000 Signed Impressions: Service Date/Time: September 21:45 - CONCLUSION: 1. Residual small areas of infarction seen bilaterally. There are fewer areas of signal abnormality seen on the diffusion-weighted images on the current exam. New areas of infarction are not present. 2. Areas of demyelination throughout the cerebral and pontine white matter likely from small vessel ischemic change. 3. Fluid in the mastoid air cells. Jarad Cat MD Abdomen X-Ray 10/07/16 0000 Signed Impressions: Service Date/Time: September 08:32 - CONCLUSION: Unremarkable bowel gas pattern. Sanya Cavazos MD Neck CT 10/05/16 0000 Signed Impressions: Service Date/Time: Wednesday, October 05, 2016 10:41 - CONCLUSION: Extensive subcutaneous emphysema. Jarad De Jesus MD Chest CT 10/05/16 0000 Signed Impressions: Service Date/Time: Wednesday, October 05, 2016 10:43 - CONCLUSION: Prior median sternotomy cardiac surgery atherosclerotic cardiovascular disease with left ventricular cardiomegaly and evidence of interstitial alveolar edema in both lungs consistent with CHF. Support tubes in place with subcutaneous emphysema in the soft tissues of neck bilaterally and supraclavicular. There is no evidence of pneumothorax. Lele Escudero MD Head Magnetic Resonance Angiography 09/10/16 1028 Signed Impressions: Service Date/Time: Saturday, September 10, 2016 10:57 - CONCLUSION: 1. Unremarkable MRA examination without evidence for large vessel occlusion, aneurysm, or vascular malformation. Richardson Haney MD Carotid Artery Ultrasound 09/09/16 1028 Signed Impressions: Service Date/Time: September 10:43 - CONCLUSION: 1. Moderate visible plaque without hemodynamically significant stenosis identified. No significant change from August 25. Amado Crain MD Renal Ultrasound 09/09/16 0000 Signed Impressions: Service Date/Time: September 15:41 - CONCLUSION: 1. Cortical atrophy with small bilateral renal cysts. No hydronephrosis. Amado Crain MD Head CT 09/08/16 2251 Signed Impressions: Service Date/Time: Thursday, September 08, 2016 23:41 - CONCLUSION: Stable noncontrast CT with no evidence of hemorrhage or acute infarction. Atrophy and chronic small vessel splenic changes remain. Sanya Cavazos MD Objective Remarks GENERAL: 75-year-old male currently orotracheally intubated and critically ill SKIN: Warm and dry. Well perfused HEAD: Atraumatic. Normocephalic. NECK: Trachea midline. No thyromegaly. Resolved bilateral neck crepitus Right IJ is clean dry and intact. CARDIOVASCULAR: IRR. S1, S2 no S4. Without murmur RESPIRATORY: Air entry decreased bilaterally at bases, scattered rhonchi, no wheezing. GASTROINTESTINAL: Abdomen soft, non-tender, nondistended. No guarding. BS active. MUSCULOSKELETAL: Extremities with trace to 1+ B/L lower extremity edema. No obvious deformities. NEUROLOGICAL: Positive corneal reflex. Positive gag. Withdraws to noxious stimulation all 4 extremities though predominantly right upper, right lower and left lower. Follows commands intermittently with right upper extremity, bilateral lower strategies. Per report, Follow commands with intermittently to left upper extremity though I could not elicit on my examination. Procedures 10/03- intubation Date of Insertion: Oct 03, 2016 Date of Insertion: Oct 04, 2016 Line: Central Venous Catheter Side: Right Location: Internal, Jugular A/P Assessment and Plan Neuro/Psych: Left occipital, bilateral frontal parietal cerebellar CVA subacute Chronic headaches Chronic benzodiazepine use Chronic oxycodone use Seizure MRI 09/10 brain revealed left occipital, bilateral frontal parietal and cerebellar CVA likely [employer]FI[employer] distribution Followed by Dr. Jeffries/neurology. 10/[address] Prajapati in view of episodes of confusion. Nonfocal. EEG 10/07 bilateral PLEDs with episodic sharp activity MRI brain 10/07 - no acute findings. Residual frontal/parietal and occipital junction CVA. Significant demyelination Currently on fosphenytoin at 100 mg IV twice a day, levetiracetam increased from 500 to 1000 mg IV twice a day and lacosamide 100 mg IV twice a day Repeat EEG today. Follow-up on fosphenytoin level in a.m. Meropenem, linezolid and famotidine all discontinued Currently on alprazolam 0.25 mg every 6 hours PRN Anxiety Currently off propofol and dexmedetomidine for sedation while intubated Goal of RA SS 0 CV: Coronary disease status post CABG ASCVD Carotid stenosis TAAA Hypertension Dyslipidemia History atrial fibrillation status post ablation 2011 Followed by cardiology. Currently off atorvastatin 40 mg daily/home medication for dyslipidemia On PO Apixaban 5 mg twice a day per cardiology. Off amiodarone for suspected pulmonary toxicity Echocardiogram revealed EF 70%. OHS septal motion./Paradoxical, CARA 50-60 mmHg Currently labetalol 100 mg 3 times a day for hypertension. As needed metoprolol for tachycardia Continue aspirin 81 mg by mouth daily Resp: Acute hypoxemic respiratory failure Subcutaneous air neck PRVC 18/600/1.2/ Ventilator bundle Albuterol/ipratropium every 6 hours with albuterol aerosols as indicated 3rd intubation. Last 10/03 likely will need trach Chest x-ray 10/08 - improved bilateral subcutaneous neck. No obvious pneumothorax. CT chest ruled out pneumothorax Likely barotrauma from mechanical ventilation. PEEP decreased from 10-5 . 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 D'Sierra Continue antibiotics per ID Dr. Nova - recommending lung biopsy CT surgery - [facility]: Currently resuming Suplena goal 55 cc an hour (per dietary recommendations) due to high tube feed residuals Increased from 30 cc to goal 50 cc today. On sucralfate 1 g by mouth 4 times daily for GI prophylaxis Docusate sodium 100 mg twice a day, senna liquid 8.6 mg twice a day and polyethylene glycol 3350 17 g twice daily for bowel regimen Continue metoclopramide 5 mill grams IV every 8 hours 10/07 negative KUB. LIWS NGT LESS than 100 cc overnight History of hydroureter Renal ultrasound revealed no hydronephrosis Reinsert Franco- intubated and receiving diuretics- Strict I&O's Endo: Sliding scale insulin with Novulog with Accu-Cheks every 6 hours/low regimen Renal: Acute on chronic kidney injury Currently holding furosemide 20 mg by mouth daily Nephrology follow-up.. 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 Slowly wean steroids due to this issue as above pulmonary section. Dr. Cerda following Creatinine currently 1.5. Noted BUN slightly increased Heme: History of colon cancer status post partial colectomy History of bladder cancer normocytic anemia Leukocytosis Monitor CBC daily. Follow trends. Noted elevated lambda and kappa Chains/ESR likely secondary underlying acute kidney injury. Evaluated by Dr. Mccollum/hematology ID: Likely hospital-acquired pneumonia On meropenem//linezolid since 09/27 through 10/07 Pertinent cultures 10/03-repeat blood, urine Legionella and pneumococcal antigens and sputum cultures no growth 10/03-influenza negative 09/28 - blood cultures 2 - no growth 09/22 - sputum - no growth 09/16 - blood cultures 2 - no growth Recheck sputum today FEN: Hypernatremia Hyperphosphatemia Hyper-magnesium Monitor and replete electrolytes Continue calcium acetate 667 mg 3 times a day Remove milk of magnesia from MAR Continue one half normal saline at 42 cc an hour. Added free water 200 cc every 4 hours. MSK: PT evaluate and treat Prophylaxis - GI -sucralfate - DVT - SCD/apixaban Access - Right subclavian CVL placed 09/16 - 10/04 - Right IJ CVL 10/04 present Critical Care: The total critical care time was 30 minutes. Time to perform other separately billable procedures was not included in the critical care time. Zay Romero MD Oct 10, 2016 06:15
--- NOTE | 2016-10-10 06:25 | HHI.CCPN ---
Subjective Remarks/Hospital Course 75 y/o man now about 4 weeks following CABG complicated by CVA. Presented back 08/28 with new onset right arm weakness. Hospital course has been complicated by CKD and fluid overload. We have attempted BiPAP for several hours but he remains in distress and although oxygenation is acceptable work of breathing is excessive. Worrisome increasing metabolic acidosis. 09/17: Gas exchange much improved. BNP 1681, ScVO2 71%. It appears that cardiac output is more than adequate for peripheral needs and the primary pathology is renal failure and fluid overload. If we can manage volume I can probably get him extubated. 09/18: Diffuse crackles. Needs to be diuresed today. Tolerating extubation but at risk for hypoxemic failure again. 09/20 - Re consulted due to worsening hypoxia. Currently on nonrebreather mask. Chest x-ray shows worsening consolidation right lobe creatinine slightly improved over. Family request transfer to [facility] however refused. We'll attempt to decipher status currently unknown. 09/21: Remains on nonrebreather mask. Saturations between 89-97%. Chest x-ray unchanged. Not tachypnea. Not confused. 09/22: Radiographic studies show diffuse interstitial process with skip areas - more indicative of infectious/inflammatory process. Sats 85% with labored pattern. Required intubation for deteriorating respiratory status. 09/23: Gas exchange improving. Pulmonary infiltrates remain very concerning - if most recent sputum is benign I would not be opposed to steroids. 09/24: Extubated today. On 3 L nasal cannula. Passed swallow evaluation. Appropriate interactive status post extubation. 09/29: Critical care reconsult requested by Dr. Meza for respiratory failure. Patient reportedly was on BiPAP this morning. He was given additional diuretic earlier as he was short of breath. With this he seems to have improved somewhat and has been on a nonrebreather facemask for more than a few hours. He states that he is breathing much better. Patient being adamant about not using BiPAP. I had a detailed conversation about the importance of using BiPAP especially at night in view of his history of sleep apnea. Patient did not appear to be in acute distress though he was requiring a nonrebreather facemask at the time of my evaluation. No urgent need for BiPAP or intubation at this time. In fact patient is stating that he is breathing much better than this morning. 09/30: Remains on nonrebreather facemask. Refused BiPAP at night. States that he is breathing better today than yesterday. 10/01: 02 30 L/m 100% FiO2. O2 sats borderline. Episodes of confusion. When I evaluated the patient he was sitting up in bed and was able to converse. Not using accessory muscles of respirations currently. 10/02: The patient is alert and oriented currently has been weaned down to high flow nasal cannula with an FiO2 of 65%, maintaining O2 saturation to 95%. Patient is appropriately conversant no episodes of confusion noted. 10/03: Yesterday, the patient received 2 units of packed red blood cells with Furosemide dosing in between transfusion of units, with diuresis of approximately 2900 cc. Last night, the patient was noted to have respiratory decompensation, continued refusal to utilize BiPAP during the night. FiO2 requirements increased to 100% this a.m., on high flow nasal cannula, with noted accessory muscle use and inability to speak in complete sentences secondary to dyspnea. The patient received additional dose of Lasix this a.m. , chest x-ray appeared to be worsened this a.m. .Patient subsequently became hypoxic requiring emergent intubation this a.m.., O2 sat saturation 80s on 100 % FiO2. 10/04: Intubated yesterday due to general and hypoxia. Diuresed with 80 mg furosemide 1. Tmax 99.8. Currently 97.8. Tube feeds initiated. No bowel movement. 10/05: Afebrile. Subcutaneous air in neck bilaterally on chest x-ray today. No obvious pneumothorax. No pneumothorax on chest x-ray yesterday post central line placement. Tolerating tube feeding. No bowel movement. 10/06: Currently resting in bed. Subcutaneous air neck much improved. X-ray improved. FiO2 down to 40%. Tolerating tube feeding. One bowel movement. 10/07: Afebrile. Currently on propofol drip at 40 mg/kg per minute. X-ray has improved. Currently not tolerating tube feeds. 2 bowel movements documented. Sedation vacation today ordered. 10/08: Afebrile. Saturations 95% on FiO2 50%. MRI brain showed no acute findings last night. EEG repeated for today. PLEDs on previous EEG. Vimpat along with fosphenytoin added per neurology. Arousable on the ventilator. Tube feeds to be resumed today. Discussed with at length yesterday 10/09: MAXIMUM TEMPERATURE 99.5. Currently 99.3. Tube feeds currently at 20 cc an hour. Minimal residuals. Arousable and intermittently follows commands mostly with right upper extremity. Subjective: 10/10: Febrile. Tube feeds currently at 25 cc an hour. Minimal residuals. Positive BM. Not arousable this AM. EEG still reveals underlying sharp spikes. Vimpat increased yesterday. Objective Vital Signs Date Time Temp Pulse Resp B/P (MAP) Pulse Ox O2 Delivery O2 Flow Rate FiO2 10/10/16 04:16 92 40 10/10/16 04:09 86 10/10/16 04:09 98.6 18 135/79 (97) 10/10/16 04:09 Mechanical Ventilator Intake and Output 10/10/16 10/10/16 10/11/16 08:00 16:00 00:00 Intake Total 2110 ml Output Total 1400 ml Balance 710 ml Result Diagram: 10/10/16 0400 10/10/16 0400 Other Results Microbiology Date/Time Source Procedure Growth Status 10/03/16 13:35 Blood Peripheral Aerobic Blood Culture - Final NO GROWTH IN 5 DAYS Complete 10/03/16 13:35 Blood Peripheral Anaerobic Blood Culture - Final NO GROWTH IN 5 DAYS Complete 09/12/16 01:00 Stool Stool Stool Occult Blood (JAME) - Final HEMOCCULT NEGATIVE Complete 10/03/16 12:49 Nasal Washing Influenza Types A,B Antigen (JAME) - Final NEGATIVE FOR FLU A AND B ANTIGEN.... Complete 10/09/16 14:00 Urine Catheterized Urine Urine Culture Pending Received Imaging Last Impressions Chest X-Ray 10/10/16 0600 Signed Impressions: Service Date/Time: Monday, October 10, 2016 04:25 - CONCLUSION: 1. Support apparatus in satisfactory position. Patchy airspace and interstitial changes similar to October 2. Amado Crain MD Brain MRI 10/07/16 0000 Signed Impressions: Service Date/Time: September 21:45 - CONCLUSION: 1. Residual small areas of infarction seen bilaterally. There are fewer areas of signal abnormality seen on the diffusion-weighted images on the current exam. New areas of infarction are not present. 2. Areas of demyelination throughout the cerebral and pontine white matter likely from small vessel ischemic change. 3. Fluid in the mastoid air cells. Jarad Cat MD Abdomen X-Ray 10/07/16 0000 Signed Impressions: Service Date/Time: September 08:32 - CONCLUSION: Unremarkable bowel gas pattern. Sanya Cavazos MD Neck CT 10/05/16 0000 Signed Impressions: Service Date/Time: Wednesday, October 05, 2016 10:41 - CONCLUSION: Extensive subcutaneous emphysema. Jarad De Jesus MD Chest CT 10/05/16 0000 Signed Impressions: Service Date/Time: Wednesday, October 05, 2016 10:43 - CONCLUSION: Prior median sternotomy cardiac surgery atherosclerotic cardiovascular disease with left ventricular cardiomegaly and evidence of interstitial alveolar edema in both lungs consistent with CHF. Support tubes in place with subcutaneous emphysema in the soft tissues of neck bilaterally and supraclavicular. There is no evidence of pneumothorax. Lele Escudero MD Head Magnetic Resonance Angiography 09/10/16 1028 Signed Impressions: Service Date/Time: Saturday, September 10, 2016 10:57 - CONCLUSION: 1. Unremarkable MRA examination without evidence for large vessel occlusion, aneurysm, or vascular malformation. Richardson Haney MD Carotid Artery Ultrasound 09/09/16 1028 Signed Impressions: Service Date/Time: September 10:43 - CONCLUSION: 1. Moderate visible plaque without hemodynamically significant stenosis identified. No significant change from August 25. Amado Crain MD Renal Ultrasound 09/09/16 0000 Signed Impressions: Service Date/Time: September 15:41 - CONCLUSION: 1. Cortical atrophy with small bilateral renal cysts. No hydronephrosis. Amado Crain MD Head CT 09/08/16 2251 Signed Impressions: Service Date/Time: Thursday, September 08, 2016 23:41 - CONCLUSION: Stable noncontrast CT with no evidence of hemorrhage or acute infarction. Atrophy and chronic small vessel splenic changes remain. Sanya Cavazos MD Objective Remarks GENERAL: 75-year-old male currently orotracheally intubated and critically ill SKIN: Warm and dry. Well perfused HEAD: Atraumatic. Normocephalic. NECK: Trachea midline. No thyromegaly. Resolved bilateral neck crepitus. Right IJ is clean dry and intact. CARDIOVASCULAR: IRR. S1, S2 no S4. Without murmur RESPIRATORY: Air entry decreased bilaterally at bases, scattered rhonchi, no wheezing. GASTROINTESTINAL: Abdomen soft, non-tender, nondistended. No guarding. BS active. MUSCULOSKELETAL: Extremities with trace to 1+ B/L lower extremity edema. No obvious deformities. NEUROLOGICAL: Positive corneal reflex. Positive gag. Opens eyes to voice. Withdraws to noxious stimulation all 4 extremities though predominantly right upper, right lower and left lower. Not following commands this AM. Procedures 10/03- intubation Urinary Catheter: Yes Assessment to: Continue Franco insert reason: Prolonged Immobilization Date of Insertion: Oct 03, 2016 Vascular Central Line Catheter: Yes Assessment to: Continue Date of Insertion: Oct 04, 2016 Line: Central Venous Catheter Side: Right Location: Internal, Jugular A/P Assessment and Plan Neuro/Psych: Left occipital, bilateral frontal parietal cerebellar CVA subacute Chronic headaches Chronic benzodiazepine use Chronic oxycodone use Seizure MRI 09/10 brain revealed left occipital, bilateral frontal parietal and cerebellar CVA likely ALFIE/[employer] distribution Followed by Dr. Jeffries/neurology. 10/[address] Prajapati in view of episodes of confusion. Nonfocal. EEG 10/07 bilateral PLEDs with episodic sharp activity MRI brain 10/07 - no acute findings. Residual frontal/parietal and occipital junction CVA. Significant demyelination Currently on fosphenytoin at 100 mg IV 3 times a day, levetiracetam increased from 1000 to 1500 mg IV twice a day and lacosamide 200 mg IV twice a day Repeat EEG today. Follow-up on fosphenytoin level in a.m. Meropenem, linezolid and famotidine all discontinued Currently on alprazolam 0.25 mg every 6 hours PRN Anxiety Currently off propofol and dexmedetomidine since Tuesday. We'll start on midazolam drip at 2 mg an hour. Goal of RA SS 0 CV: Coronary disease status post CABG ASCVD Carotid stenosis TAAA Hypertension Dyslipidemia History atrial fibrillation status post ablation 2011 Followed by cardiology. Currently off atorvastatin 40 mg daily/home medication for dyslipidemia On PO Apixaban 5 mg twice a day per cardiology. Off amiodarone for suspected pulmonary toxicity Echocardiogram revealed EF 70%. OHS septal motion./Paradoxical, CARA 50-60 mmHg Currently labetalol 100 mg 3 times a day for hypertension. As needed metoprolol for tachycardia Goal systolic blood pressure less than 130 per cardiology Continue aspirin 81 mg by mouth daily Resp: Acute hypoxemic respiratory failure Subcutaneous air neck - resolved PRVC 18/600/1.2/ Ventilator bundle Albuterol/ipratropium every 6 hours with albuterol aerosols as indicated 3rd intubation. Last 10/03 likely will need trach Chest x-ray 10/08 - improved bilateral subcutaneous neck. No obvious pneumothorax. CT chest ruled out pneumothorax Likely barotrauma from mechanical ventilation. PEEP decreased from 10-5 . 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 Encinas Continue antibiotics per ID Dr. Nova - recommending lung biopsy CT surgery - [facility] consulted/Dr. Souza. She agreed to tracheostomy as of Tuesday. GI: Currently resuming Suplena goal 55 cc an hour (per dietary recommendations) due to high tube feed residuals Increased from 30 cc to goal 50 cc today. On sucralfate 1 g by mouth 4 times daily for GI prophylaxis Docusate sodium 100 mg twice a day, senna liquid 8.6 mg twice a day and polyethylene glycol 3350 17 g twice daily for bowel regimen Continue metoclopramide 5 mill grams IV every 8 hours 10/07 negative KUB. History of hydroureter Renal ultrasound revealed no hydronephrosis Reinsert Franco- intubated and receiving diuretics- Strict I&O's Endo: Sliding scale insulin with Novulog with Accu-Cheks every 6 hours/low regimen Renal: Acute on chronic kidney injury Currently holding furosemide 20 mg by mouth daily Nephrology follow-up.. 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 Slowly wean steroids due to this issue as above pulmonary section. Dr. Cerda following Creatinine currently 1.4. Noted BUN slightly increased Heme: History of colon cancer status post partial colectomy History of bladder cancer Normocytic anemia Leukocytosis Monitor CBC daily. Follow trends. Noted elevated lambda and kappa Chains/ESR likely secondary underlying acute kidney injury. Evaluated by Dr. Mccollum/hematology ID: Likely hospital-acquired pneumonia On meropenem//linezolid since 09/27 through 10/07 Pertinent cultures 10/03-repeat blood, urine Legionella and pneumococcal antigens and sputum cultures no growth 10/03-influenza negative 09/28 - blood cultures 2 - no growth 09/22 - sputum - no growth 09/16 - blood cultures 2 - no growth Recheck urine 10/09. Recheck blood cultures 2 and sputum 10/10. Off all antibiotics per infectious disease FEN: Hypernatremia - resolving Monitor and replete electrolytes Continue calcium acetate 667 mg 3 times a day will be discontinued as phosphorus normal 5 days Remove milk of magnesia from MAR free water 200 cc every 4 hours. MSK: PT evaluate and treat Prophylaxis - GI -sucralfate - DVT - SCD/apixaban Access - Right subclavian CVL placed 09/16 - 10/04 - Right IJ CVL 10/04 present Critical Care: The total critical care time was 30 minutes. Time to perform other separately billable procedures was not included in the critical care time. Zay Romero MD Oct 10, 2016 06:25
[2016-10-10] MEDS ORDERED: MIDAZOLAM 100 MG/100 ML INJ 100 ML IV PRN (06:30)
[2016-10-10] MEDS: CHLORHEXIDINE 0.12% (ORAL KIT) 15 ML CUP MT SCH ×4 (08:00→20:05)
[2016-10-10] MEDS: SODIUM CHLOR 0.45% 1000 ML INJ 1,000 ML IV SCH (08:15)
[2016-10-10] MEDS: SODIUM CHLORIDE 0.9% FLUSH 10 ML FLUSH IVF SCH (09:00)
[2016-10-10] MEDS: levETIRAcetam 1000 MG INJ 100 ML IV SCH ×2 (09:03→20:03)
[2016-10-10] MEDS: levETIRAcetam INJ 500 MG in SODIUM CHLORIDE 0.9% INJ 100 ML IV SCH ×2 (09:03→20:03)
[2016-10-10] MEDS: DOCUSATE SODIUM 100 MG/10 ML UDC NG SCH ×2 (09:04→20:03)
[2016-10-10] MEDS: methylPREDNISolone SOD SUCC 40 MG/1 ML VIAL IV PUSH SCH (09:04)
[2016-10-10] MEDS: POLYETHYLENE GLYCOL 17 GM PKG NG SCH ×2 (09:04→20:03)
[2016-10-10] MEDS: SODIUM CHLORIDE 0.9% FLUSH 10 ML FLUSH IV FLUSH SCH ×2 (09:04→20:04)
[2016-10-10] MEDS: CYANOCOBALAMIN 1000 MCG/ML VIAL SQ SCH (09:05)
[2016-10-10] MEDS: LABETALOL HCL 100 MG TAB PO SCH ×3 (09:05→18:19)
[2016-10-10] MEDS: CALCIUM ACETATE 667 MG CAP PO SCH ×3 (09:05→18:19)
[2016-10-10] MEDS: ASPIRIN EC 81 MG TABEC PO SCH (09:05)
[2016-10-10] MEDS: SENNOSIDES SYRUP 8.8 MG/5 ML CUP NG SCH ×2 (09:05→20:03)
[2016-10-10] MEDS: APIXABAN 5 MG TABLET PO SCH ×2 (09:05→20:03)
--- NOTE | 2016-10-10 14:52 | PD.CARD.PN ---
Subjective Subjective Remarks Unable to obtain ROS. patient intubated. No sedation. Following some commands. hemodynamically stable. Objective Medications Current Medications Medications (Trade) Dose Ordered Sig/Awilda Route Start Time Stop Time Status Last Admin (NS Flush) 2 ml UNSCH PRN IV FLUSH 09/09/16 00:45 (NS Flush) 2 ml BID IV FLUSH 09/09/16 09:00 10/10/16 09:04 (Narcan Inj) 0.4 mg UNSCH PRN IV 09/09/16 00:45 (Pill Splitter) 1 ea UNSCH PRN OTHER 09/09/16 14:00 (Eliquis) 5 mg BID PO 09/10/16 09:00 10/10/16 09:05 (Catapres) 0.1 mg Q6H PRN PO 09/11/16 14:30 09/19/16 23:02 (Lopressor Inj) 5 mg Q2HR PRN IV PUSH 09/16/16 14:00 10/10/16 00:40 (Apresoline Inj) 10 mg Q6HR PRN IV PUSH 09/16/16 12:45 10/07/16 10:46 (Racepinephrine 2.25% Neb) 0.5 ml Q1HR NEB PRN NEB 09/17/16 17:15 09/17/16 18:02 (Dulcolax Supp) 10 mg DAILY PRN RECTAL 09/19/16 13:30 (Albuterol Neb) 2.5 mg Q2HR NEB PRN NEB 09/21/16 12:00 10/02/16 21:16 (Phoslo) 667 mg TID PO 09/21/16 18:00 10/10/16 12:50 (Peridex 0.12% Liq) 15 ml BID@08,20 MT 09/22/16 20:00 10/10/16 08:17 (Ecotrin Ec) 81 mg DAILY PO 09/30/16 09:00 10/10/16 09:05 (Trandate) 100 mg TID PO 09/30/16 13:00 10/10/16 12:50 (NovoLOG SUPPLEMENTAL SCALE) 1 Q6HR SQ 10/01/16 13:15 10/09/16 12:15 (D50w (Vial) Inj) 50 ml UNSCH PRN IV PUSH 10/01/16 13:15 (Glucagon Inj) 1 mg UNSCH PRN OTHER 10/01/16 13:15 (Lasix Inj) 40 mg UNSCH IV 10/02/16 09:30 10/02/16 22:59 (Tears Naturale Opth Soln) 1 drop Q8HR EACH EYE 10/03/16 14:00 10/10/16 14:04 (Colace Liq) 100 mg Q12HR NG 10/04/16 09:00 10/10/16 09:04 (Senna Liq) 8.8 mg BID NG 10/04/16 09:00 10/10/16 09:05 (NS Flush) DAILY IVF 10/04/16 12:45 10/06/16 08:09 (NS Flush) UNSCH PRN IVF 10/04/16 12:45 (Miralax) 17 gm BID NG 10/05/16 09:00 10/10/16 09:04 (Peridex 0.12% Liq) 15 ml BID@08,20 MT 10/07/16 08:00 (Reglan Inj) 5 mg Q8HR IV PUSH 10/07/16 08:00 10/10/16 14:04 Dexmedetomidine HCl 200 mcg/ Sodium Chloride 52 ml @ 4.64 mls/hr TITRATE PRN IV 10/07/16 13:00 (Trandate Inj) 10 mg Q1HR PRN IV PUSH 10/07/16 13:00 10/10/16 05:42 (Nitroglycerin 2% Oint) 2 inch Q6HR PRN TOPICAL 10/07/16 13:00 (Duoneb Neb) 1 ampule Q6HR NEB NEB 10/07/16 16:00 10/10/16 09:40 Propofol 100 ml @ 2.682 mls/ hr TITRATE PRN IV 10/07/16 17:00 10/07/16 19:34 (Vitamin B12 Inj) 1,000 mcg DAILY SQ 10/08/16 09:00 10/11/16 08:59 10/10/16 09:05 (Cerebyx Inj) 100 mgpe Q8HR IV 10/08/16 06:00 10/10/16 14:05 (Carafate Liq) 1 gm Q6HR NG 10/08/16 12:00 10/10/16 12:49 Sodium Chloride 1,000 ml @ 42 mls/hr [id number] IV 10/08/16 08:00 10/11/16 06:00 10/10/16 08:15 Lacosamide 200 mg/ Sodium Chloride 120 ml @ 110 mls/hr Q12H IV 10/09/16 00:00 10/10/16 12:49 (Free Water) 200 ml Q4HR G-TUBE 10/09/16 08:00 10/10/16 12:00 Levetriacetam 100 ml @ 400 mls/hr Q12HR IV 10/09/16 09:00 10/10/16 09:03 (SoluMEDROL INJ) 40 mg DAILY IV PUSH 10/10/16 09:00 10/10/16 09:04 Levetriacetam 500 mg/Sodium Chloride 105 ml @ 420 mls/hr Q12HR IV 10/10/16 09:00 10/10/16 09:03 Midazolam HCl 100 ml @ 2 mls/hr TITRATE PRN IV 10/10/16 06:30 10/10/16 06:25 Vital Signs / I&O Vital Signs Date Time Temp Pulse Resp B/P (MAP) Pulse Ox O2 Delivery O2 Flow Rate FiO2 10/10/16 12:30 40 10/10/16 12:25 40 10/10/16 12:22 97 40 10/10/16 11:00 97 Mechanical Ventilator 40 10/10/16 11:00 77 10/10/16 11:00 40 10/10/16 11:00 99.8 77 18 119/69 (86) 97 10/10/16 09:49 97 40 10/10/16 07:00 84 10/10/16 07:00 98 Mechanical Ventilator 50 10/10/16 07:00 50 10/10/16 07:00 99.1 85 19 146/86 (106) 98 10/10/16 04:16 92 40 10/10/16 04:09 86 10/10/16 04:09 40 10/10/16 04:09 98.6 89 18 135/79 (97) 97 10/10/16 04:09 97 Mechanical Ventilator 40 10/10/16 02:33 96 40 10/09/16 23:18 93 Mechanical Ventilator 40 10/09/16 23:18 88 10/09/16 23:18 98.4 87 20 119/69 (86) 95 10/09/16 23:18 40 10/09/16 22:55 97 40 10/09/16 20:58 40 10/09/16 20:20 97 40 10/09/16 19:21 98.9 84 19 118/73 (88) 93 10/09/16 19:21 93 Mechanical Ventilator 40 10/09/16 19:00 84 10/09/16 15:27 93 40 10/09/16 15:00 40 10/09/16 15:00 97 Mechanical Ventilator 40 10/09/16 15:00 98.8 79 18 119/70 (86) 97 10/09/16 15:00 79 I/O 10/09/16 10/09/16 10/09/16 10/10/16 10/10/16 10/10/16 07:00 15:00 23:00 07:00 15:00 23:00 Intake Total 632 ml 210 ml 934 ml 2110 ml Output Total 1150 ml 950 ml 1400 ml Balance -518 ml 210 ml -16 ml 710 ml IV Total 210 ml 100 ml 1229 ml Tube Feeding 232 ml 234 ml 281 ml Other 400 ml 600 ml 600 ml Output Urine Total 1150 ml 950 ml 1050 ml Stool Total 0 ml 350 ml Physical Exam GENERAL: Elderly male, intubated. SKIN: Warm and dry. HEAD: Normocephalic. EYES: No scleral icterus. No injection or drainage. NECK: Supple, trachea midline CARDIOVASCULAR: Midline incision healing well, reg rate and rhythm RESPIRATORY: Intubated GASTROINTESTINAL: Abdomen soft, non-tender, nondistended. MUSCULOSKELETAL: No cyanosis, no BLE edema BACK: Nontender without obvious deformity. Laboratory Laboratory Tests Test 10/10/16 04:00 White Blood Count 17.7 TH/MM3 Red Blood Count 2.99 MIL/MM3 Hemoglobin 8.7 GM/DL Hematocrit 27.5 % Mean Corpuscular Volume 92.2 FL Mean Corpuscular Hemoglobin 29.1 PG Mean Corpuscular Hemoglobin Concent 31.5 % Red Cell Distribution Width 16.6 % Platelet Count 201 TH/MM3 Mean Platelet Volume 7.3 FL Neutrophils (%) (Auto) 73.5 % Lymphocytes (%) (Auto) 10.2 % Monocytes (%) (Auto) 7.1 % Eosinophils (%) (Auto) 8.2 % Basophils (%) (Auto) 1.0 % Neutrophils # (Auto) 13.0 TH/MM3 Lymphocytes # (Auto) 1.8 TH/MM3 Monocytes # (Auto) 1.3 TH/MM3 Eosinophils # (Auto) 1.4 TH/MM3 Basophils # (Auto) 0.2 TH/MM3 CBC Comment DIFF FINAL Differential Comment Blood Urea Nitrogen 100 MG/DL Creatinine 1.40 MG/DL Random Glucose 131 MG/DL Calcium Level 8.4 MG/DL Magnesium Level 2.2 MG/DL Sodium Level 145 MEQ/L Potassium Level 4.6 MEQ/L Chloride Level 108 MEQ/L Carbon Dioxide Level 33.6 MEQ/L Anion Gap 3 MEQ/L Estimat Glomerular Filtration Rate 49 ML/MIN Phenytoin (Dilantin) Level 9.2 MCG/ML Imaging Last 72 hours Impressions Chest X-Ray 10/10/16599 Signed Impressions: Service Date/Time: Monday, October 10, 2016 04:25 - CONCLUSION: 1. Support apparatus in satisfactory position. Patchy airspace and interstitial changes similar to October 09. Amado Crain MD Chest X-Ray 10/09/16599 Signed Impressions: Service Date/Time: Sunday, October 09, 2016 04:09 - CONCLUSION: 1. Support apparatus in satisfactory position. Interstitial and hazy airspace disease similar to prior exam. Amado Crain MD Chest X-Ray 10/08/16599 Signed Impressions: Service Date/Time: Saturday, October 08, 2016 03:51 - CONCLUSION: Stable interstitial and airspace opacities bilaterally. Jarad eDlgado MD Assessment and Plan Problem List: (1) History of CVA (cerebrovascular accident) ICD Codes: Z86.73 - Personal history of transient ischemic attack (TIA), and cerebral infarction without residual deficits Status: Acute (2) CKD (chronic kidney disease) stage 3, GFR 30-59 ml/min ICD Codes: N18.3 - Chronic kidney disease, stage 3 (moderate) Status: Acute (3) S/P CABG x 3 ICD Codes: Z95.1 - Presence of aortocoronary bypass graft Status: Acute (4) Atrial fibrillation ICD Codes: I48.91 - Unspecified atrial fibrillation (5) Acute hypoxemic respiratory failure ICD Codes: J96.01 - Acute respiratory failure with hypoxia Status: Acute (6) Hypertension ICD Codes: I10 - Essential (primary) hypertension Status: Acute (7) Thoracic aortic aneurysm without rupture ICD Codes: I71.2 - Thoracic aortic aneurysm, without rupture Status: Acute Assessment and Plan PLAN: Continue labetalol and Eliquis Weaning high dose steroids Follow up blood cultures. UA + for adria SBP goal < 130 DBP goal < 90. The patient was seen and evaluated by Dr. Moran who completed a [id number] encounter, completed a physical exam and participated in evaluation and management. Elin Kwok Oct 10, 2016 14:52
--- NOTE | 2016-10-10 17:18 | HHI.PR ---
Subjective Remarks Intubated and on a ventilator , with FIo2 at 40 %. Chest X Ray is better Had seizure activity last PM. Now on anti seizure meds.Off sedation. Awake and on CPAP today. Objective Vital Signs Date Time Temp Pulse Resp B/P (MAP) Pulse Ox O2 Delivery O2 Flow Rate FiO2 10/10/16 15:00 85 10/10/16 15:00 97 Mechanical Ventilator 40 10/10/16 15:00 99.6 85 20 124/70 (88) 97 10/10/16 15:00 40 10/10/16 12:30 40 10/10/16 12:25 40 10/10/16 12:22 97 40 10/10/16 11:00 97 Mechanical Ventilator 40 10/10/16 11:00 77 10/10/16 11:00 40 10/10/16 11:00 99.8 77 18 119/69 (86) 97 10/10/16 09:49 97 40 10/10/16 07:00 84 10/10/16 07:00 98 Mechanical Ventilator 50 10/10/16 07:00 50 10/10/16 07:00 99.1 85 19 146/86 (106) 98 10/10/16 04:16 92 40 10/10/16 04:09 86 10/10/16 04:09 40 10/10/16 04:09 98.6 89 18 135/79 (97) 97 10/10/16 04:09 97 Mechanical Ventilator 40 10/10/16 02:33 96 40 10/09/16 23:18 93 Mechanical Ventilator 40 10/09/16 23:18 88 10/09/16 23:18 98.4 87 20 119/69 (86) 95 10/09/16 23:18 40 10/09/16 22:55 97 40 10/09/16 20:58 40 10/09/16 20:20 97 40 10/09/16 19:21 98.9 84 19 118/73 (88) 93 10/09/16 19:21 93 Mechanical Ventilator 40 10/09/16 19:00 84 I/O 10/09/16 10/09/16 10/09/16 10/10/16 10/10/16 10/10/16 07:00 15:00 23:00 07:00 15:00 23:00 Intake Total 632 ml 210 ml 934 ml 2110 ml Output Total 1150 ml 950 ml 1400 ml Balance -518 ml 210 ml -16 ml 710 ml IV Total 210 ml 100 ml 1229 ml Tube Feeding 232 ml 234 ml 281 ml Other 400 ml 600 ml 600 ml Output Urine Total 1150 ml 950 ml 1050 ml Stool Total 0 ml 350 ml Result Diagram: 10/10/1639910/10/16399 Objective Remarks GENERAL: This moderately overweight elderly man ,Intubated on the vent. HEENT: Head is normocephalic. Pupils are reactive. Tongue is moist. Throat clear NECK: No venous distention. No thyroid enlargement. CHEST: Equal movements with diminished breath sounds at the bases with Occ basal crackles. HEART: Sounds are irregular S1-S2. No murmur. ABDOMEN: Soft. Protuberant without masses. No organomegaly. EXTREMITIES: Decreased pulses. Mild Edema SKIN: warm. Neuro : lethargic.Moves arm and feet. Assessment and Plan Assessment and Plan IMPRESSION 1. Acute respiratory failure.Resolving 2. Fluid overload status with pulmonary edema. 3. Acute kidney failure.Resolving 4. History of cerebrovascular accident. 5. Bibasilar atelectasis with possible pneumonia. 6. History of colon cancer and bladder cancer. 7. Possible Hypersensitivity Pneumonia or Edema Plan : 1. 2. FIO2 at 40 %and wean to keep sat >92. 3. Nebs qid ,Duoneb. 4. CPAP trial daily and resp parameters 5. Antibiotics per ID 6. Cont Keppra/Dilantin 7. Trial of extubation if he meets Criteria. 8. CBC,CXR BMP in am 9. Hold trach for now. 10. solumedrol IV 40 mg daily. Jaime Encinas MD Oct 10, 2016 17:18
--- NOTE | 2016-10-10 21:43 | MG ---
cc: NICHELLE RUVALCABA M.D. Lab No: Date: 10/10/2016 Age: Sex: M Race: DATE OF 1940 EEG NUMBER [id number] Romero. ROOM 446. This is a repeat study. Intubated with photic done, sedated versed 2 mg turned off prior to start of EEG. Sharps. There are sharp waves seen towards the end of the study per tech. Repeat EEG, this is for a followup. He only withdrew right upper extremity. Last EEG on October 08 was still abnormal for sharps. History of stroke. Anticoagulant therapy. Dyslipidemia. Colon cancer. MEDICATIONS On: Versed and . Cerebyx. Trandate. Reglan. DESCRIPTION OF RECORD Intubated, sedated. As stated there is overall symmetrical slowing predominantly at 4 Hz. Currently with the patient on sedation there are no epileptiform features initially but he is waking up by epoch 60 some sharp waves start to occur and they are bilateral. Photic stimulation with minimal driving response. Again sharp waves occur started from epoch 123 and continue paroxysmally. Left arm starts twitching. IMPRESSION Abnormal EEG noted initially due to slowing due to likely medicine effect but the medicine was turned off towards the end of the recording, the sharps and cycle re-occur per ongoing seizure activity with lightened sedation. Clinical correlation. MD CLIFFORD Huffman/SHIRA /8:31 PM /9:26 PM
[2016-10-11] VITALS (14 sets, daily range): BP systolic 130–165; BP diastolic 70–95; PULSE 80–102; RESP 18–28; TEMP 98.4–99.7; O2SAT 89–99
[2016-10-11] MEDS: LACOSAMIDE INJ 200 MG in SODIUM CHLORIDE 0.9% INJ 100 ML IV SCH ×3 (00:22→23:56)
[2016-10-11] MEDS: SUCRALFATE 1 GM/10 ML CUP NG SCH ×5 (00:31→23:55)
[2016-10-11] MEDS: FREE WATER G-TUBE SCH ×7 (04:00→23:57)
[2016-10-11] MEDS: RESP: ALBUTEROL 2.5 MG/IPRATROPIUM 0.5 MG NEB (SCH) NEB ×2 (04:46→09:23)
[2016-10-11 05:11] LABS: AUTOMATED NEUTROPHIL # 12.5 TH/MM3 (1.8-7.7); BASOPHIL % 0.3 % (0.0-2.0); EOSINOPHIL # 1.4 TH/MM3 (0-0.4); EOSINOPHIL % 8.4 % (0.0-4.0); HEMO FLAGS DIFF FINAL; LYMPH % 10.1 % (9.0-44.0); LYMPHOCYTE # 1.7 TH/MM3 (1.0-4.8); MEAN CELL VOLUME 93.3 FL (80.0-100.0); MEAN CORPUSCULAR HEMOGLOBIN 30.1 PG (27.0-34.0); MEAN CORPUSCULAR HGB CONC 32.3 % (32.0-36.0); MONO % 6.9 % (0.0-8.0); NEUT % 74.3 % (16.0-70.0); PLATELET COUNT 169 TH/MM3 (150-450); RED BLOOD COUNT 2.68 MIL/MM3 (4.50-5.90); RED CELL DISTRIBUTION WIDTH 17.1 % (11.6-17.2); WHITE BLOOD COUNT 16.9 TH/MM3 (4.0-11.0)
[2016-10-11] MEDS: METOCLOPRAMIDE HCL 10 MG/2 ML VIAL IV PUSH SCH ×3 (05:19→22:02)
[2016-10-11] MEDS: SODIUM CHLORIDE 0.9% FLUSH 10 ML FLUSH IV FLUSH PRN (05:19)
[2016-10-11] MEDS: FOSPHENYTOIN SODIUM 100 MG PE/2 ML VIAL IV SCH ×3 (05:19→21:00)
[2016-10-11] MEDS: ARTIFICIAL TEARS OPTH SOLN 15 ML BTL EACH EYE SCH ×3 (05:20→22:04)
--- NOTE | 2016-10-11 05:46 | RADRPT ---
EXAM DATE/TIME: 10/11/2016 05:05 [facility] COMPARISON: CHEST SINGLE AP, October 10, 2016, 4:25. INDICATIONS : Shortness of breath, possible pulmonary disease. MEDICAL HISTORY : Myocardial infarction. Cardiovascular disease. Aneurysm, abdominal. SURGICAL HISTORY : CABG. Abdominal aortic aneurysm repair. ENCOUNTER: Subsequent ACUITY: 1 month PAIN SCORE: Non-responsive. LOCATION: Bilateral chest FINDINGS: Mild, fairly diffuse bilateral interstitial and alveolar opacities persist and accounting for differe nces in technique, fairly similar to yesterday. No large effusion seen. No pneumothorax. Mild cardiomegaly is stable. Patient has had previous median sternotomy. Endotracheal tube tip is approximately 4 cm above the thor. Nasogastric tube courses into the stoma ch. There is a right internal jugular central venous catheter with tip in the superior vena cava. CONCLUSION: No significant change. Jarad Aleman MD on October 11, 2016 at 5:43 Board Certified Radiologist. This report was verified electronically.
[2016-10-11] MEDS: SODIUM CHLOR 0.45% 1000 ML INJ 1,000 ML IV SCH (05:55)
[2016-10-11 05:56] LABS: ALKALINE PHOSPHATASE 86 U/L (45-117); ALT (GPT) 25 U/L (12-78); ANION GAP 6 MEQ/L (5-15); AST (GOT) 35 U/L (15-37); BICARBONATE 31.1 MEQ/L (21.0-32.0); BLOOD UREA NITROGEN 78 MG/DL (7-18); CHLORIDE 109 MEQ/L (98-107); GLOMERULAR FILTRATION RATE 57 ML/MIN (>89); MAGNESIUM 2.1 MG/DL (1.5-2.5); POTASSIUM 4.2 MEQ/L (3.5-5.1); SODIUM (NA) 146 MEQ/L (136-145); TOTAL BILIRUBIN ADULT 0.4 MG/DL (0.2-1.0)
[2016-10-11] MEDS: INSULIN ASPART SUPPLEMENTAL SCALE SQ SCH ×5 (06:00→23:57)
[2016-10-11] MEDS: CHLORHEXIDINE 0.12% (ORAL KIT) 15 ML CUP MT SCH ×4 (08:00→20:57)
[2016-10-11] MEDS: ASPIRIN EC 81 MG TABEC PO SCH (08:17)
[2016-10-11] MEDS: methylPREDNISolone SOD SUCC 40 MG/1 ML VIAL IV PUSH SCH (08:17)
[2016-10-11] MEDS: LABETALOL HCL 100 MG TAB PO SCH ×3 (08:17→17:24)
[2016-10-11] MEDS: CALCIUM ACETATE 667 MG CAP PO SCH ×3 (08:17→17:24)
[2016-10-11] MEDS: POLYETHYLENE GLYCOL 17 GM PKG NG SCH ×2 (08:17→21:00)
[2016-10-11] MEDS: APIXABAN 5 MG TABLET PO SCH ×2 (08:17→20:59)
[2016-10-11] MEDS: SODIUM CHLORIDE 0.9% FLUSH 10 ML FLUSH IV FLUSH SCH ×2 (08:18→20:59)
[2016-10-11] MEDS: SENNOSIDES SYRUP 8.8 MG/5 ML CUP NG SCH ×2 (08:18→20:58)
[2016-10-11] MEDS: DOCUSATE SODIUM 100 MG/10 ML UDC NG SCH ×2 (08:18→20:59)
[2016-10-11] MEDS: SODIUM CHLORIDE 0.9% FLUSH 10 ML FLUSH IVF SCH (08:19)
[2016-10-11 08:38] LABS: BLOOD GAS BASE EXCESS 4.7 mmol/L (-2-2); BLOOD GAS CARBOXYHEMOGLOBIN 1.9 % (0-4); BLOOD GAS HCO3 30 mmol/L (22-26); BLOOD GAS METHEMOGLOBIN 1.2 % (0-2); BLOOD GAS O2 HGB SATURATION 92 % (90-100); BLOOD GAS OXYGEN CONTENT 17.4 Vol % (12.0-20.0); BLOOD GAS PCO2 51 mmHg (38-42); BLOOD GAS PO2 78 mmHg (61-120); BLOOD GAS TOTAL HGB 13.4 G/DL (12.0-16.0); CRITICAL VALUE YES; OXYGEN DEVICE VENTILATOR; TEMP CORR TO 98.6
[2016-10-11 08:39] LABS: DRAW SITE RT RADIAL; FIO2 50 %; NUMBER OF ARTERIAL PUNCTURES 1; STAT NO; ULNAR PULSE PRESENT; VENT SETTINGS CPAP5/PS5
[2016-10-11] MEDS: levETIRAcetam 1000 MG INJ 100 ML IV SCH ×2 (08:47→21:13)
[2016-10-11] MEDS: levETIRAcetam INJ 500 MG in SODIUM CHLORIDE 0.9% INJ 100 ML IV SCH ×2 (08:48→21:16)
--- NOTE | 2016-10-11 10:05 | HHI.CCPN ---
Subjective Remarks/Hospital Course DUPLICATE NOTE Objective Vital Signs Date Time Temp Pulse Resp B/P (MAP) Pulse Ox O2 Delivery O2 Flow Rate FiO2 10/11/16 09:24 89 45 10/11/16 07:20 Mechanical Ventilator 10/11/16 07:20 99.7 102 28 165/95 (118) Intake and Output 10/11/16 10/11/16 10/12/16 08:00 16:00 00:00 Intake Total 1720 ml Output Total 1050 ml Balance 670 ml Result Diagram: 10/11/16 0443 10/11/16 0443 Other Results Microbiology Date/Time Source Procedure Growth Status 10/09/16 14:00 Urine Catheterized Urine Urine Culture - Final Betty Albicans Complete Laboratory Tests Test 10/11/16 08:11 Blood Gas Puncture Site RT RADIAL Blood Gas Patient Temperature 98.6 Blood Gas HCO3 30 mmol/L (22-26) Blood Gas Base Excess 4.7 mmol/L (-2-2) Blood Gas Oxygen Saturation 92 % (90-100) Arterial Blood pH 7.38 (7.380-7.420) Arterial Blood Partial Pressure CO2 51 mmHg (38-42) Arterial Blood Partial Pressure O2 78 mmHg (61-120) Arterial Blood Oxygen Content 17.4 Vol % (12.0-20.0) Arterial Blood Carboxyhemoglobin 1.9 % (0-4) Arterial Blood Methemoglobin 1.2 % (0-2) Blood Gas Hemoglobin 13.4 G/DL (12.0-16.0) Oxygen Delivery Device VENTILATOR Blood Gas Ventilator Setting CPAP5/PS5 Blood Gas Inspired Oxygen 50 % Imaging Last Impressions Chest X-Ray 10/10/16 0600 Signed Impressions: Service Date/Time: Monday, October 10, 2016 04:25 - CONCLUSION: 1. Support apparatus in satisfactory position. Patchy airspace and interstitial changes similar to October 2. Amado Crain MD Brain MRI 10/07/16 0000 Signed Impressions: Service Date/Time: September 21:45 - CONCLUSION: 1. Residual small areas of infarction seen bilaterally. There are fewer areas of signal abnormality seen on the diffusion-weighted images on the current exam. New areas of infarction are not present. 2. Areas of demyelination throughout the cerebral and pontine white matter likely from small vessel ischemic change. 3. Fluid in the mastoid air cells. Jarad Cat MD Abdomen X-Ray 10/07/16 0000 Signed Impressions: Service Date/Time: September 08:32 - CONCLUSION: Unremarkable bowel gas pattern. Sanya Cavazos MD Neck CT 10/05/16 0000 Signed Impressions: Service Date/Time: Wednesday, October 05, 2016 10:41 - CONCLUSION: Extensive subcutaneous emphysema. Jarad De Jesus MD Chest CT 10/05/16 0000 Signed Impressions: Service Date/Time: Wednesday, October 05, 2016 10:43 - CONCLUSION: Prior median sternotomy cardiac surgery atherosclerotic cardiovascular disease with left ventricular cardiomegaly and evidence of interstitial alveolar edema in both lungs consistent with CHF. Support tubes in place with subcutaneous emphysema in the soft tissues of neck bilaterally and supraclavicular. There is no evidence of pneumothorax. Lele Escudero MD Head Magnetic Resonance Angiography 09/10/16 1028 Signed Impressions: Service Date/Time: Saturday, September 10, 2016 10:57 - CONCLUSION: 1. Unremarkable MRA examination without evidence for large vessel occlusion, aneurysm, or vascular malformation. Richardson Haney MD Carotid Artery Ultrasound 09/09/16 1028 Signed Impressions: Service Date/Time: September 10:43 - CONCLUSION: 1. Moderate visible plaque without hemodynamically significant stenosis identified. No significant change from August 25. Amado Crain MD Renal Ultrasound 09/09/16 0000 Signed Impressions: Service Date/Time: September 15:41 - CONCLUSION: 1. Cortical atrophy with small bilateral renal cysts. No hydronephrosis. Amado Crain MD Head CT 09/08/16 2251 Signed Impressions: Service Date/Time: Thursday, September 08, 2016 23:41 - CONCLUSION: Stable noncontrast CT with no evidence of hemorrhage or acute infarction. Atrophy and chronic small vessel splenic changes remain. Sanya Cavazos MD Procedures 10/03- intubation Date of Insertion: Oct 03, 2016 Date of Insertion: Oct 04, 2016 Line: Central Venous Catheter Side: Right Location: Internal, Jugular A/P Assessment and Plan Giovani Abraham MD Oct 11, 2016 10:05
--- NOTE | 2016-10-11 10:30 | HHI.CCPN ---
Subjective Remarks/Hospital Course 75 y/o man now about 4 weeks following CABG complicated by CVA. Presented back 08/28 with new onset right arm weakness. Hospital course has been complicated by CKD and fluid overload. We have attempted BiPAP for several hours but he remains in distress and although oxygenation is acceptable work of breathing is excessive. Worrisome increasing metabolic acidosis. 09/17: Gas exchange much improved. BNP 1681, ScVO2 71%. It appears that cardiac output is more than adequate for peripheral needs and the primary pathology is renal failure and fluid overload. If we can manage volume I can probably get him extubated. 09/18: Diffuse crackles. Needs to be diuresed today. Tolerating extubation but at risk for hypoxemic failure again. 09/20 - Re consulted due to worsening hypoxia. Currently on nonrebreather mask. Chest x-ray shows worsening consolidation right lobe creatinine slightly improved over. Family request transfer to [facility] however refused. We'll attempt to decipher status currently unknown. 09/21: Remains on nonrebreather mask. Saturations between 89-97%. Chest x-ray unchanged. Not tachypnea. Not confused. 09/22: Radiographic studies show diffuse interstitial process with skip areas - more indicative of infectious/inflammatory process. Sats 85% with labored pattern. Required intubation for deteriorating respiratory status. 09/23: Gas exchange improving. Pulmonary infiltrates remain very concerning - if most recent sputum is benign I would not be opposed to steroids. 09/24: Extubated today. On 3 L nasal cannula. Passed swallow evaluation. Appropriate interactive status post extubation. 09/29: Critical care reconsult requested by Dr. Meza for respiratory failure. Patient reportedly was on BiPAP this morning. He was given additional diuretic earlier as he was short of breath. With this he seems to have improved somewhat and has been on a nonrebreather facemask for more than a few hours. He states that he is breathing much better. Patient being adamant about not using BiPAP. I had a detailed conversation about the importance of using BiPAP especially at night in view of his history of sleep apnea. Patient did not appear to be in acute distress though he was requiring a nonrebreather facemask at the time of my evaluation. No urgent need for BiPAP or intubation at this time. In fact patient is stating that he is breathing much better than this morning. 09/30: Remains on nonrebreather facemask. Refused BiPAP at night. States that he is breathing better today than yesterday. 10/01: 02 30 L/m 100% FiO2. O2 sats borderline. Episodes of confusion. When I evaluated the patient he was sitting up in bed and was able to converse. Not using accessory muscles of respirations currently. 10/02: The patient is alert and oriented currently has been weaned down to high flow nasal cannula with an FiO2 of 65%, maintaining O2 saturation to 95%. Patient is appropriately conversant no episodes of confusion noted. 10/03: Yesterday, the patient received 2 units of packed red blood cells with Furosemide dosing in between transfusion of units, with diuresis of approximately 2900 cc. Last night, the patient was noted to have respiratory decompensation, continued refusal to utilize BiPAP during the night. FiO2 requirements increased to 100% this a.m., on high flow nasal cannula, with noted accessory muscle use and inability to speak in complete sentences secondary to dyspnea. The patient received additional dose of Lasix this a.m. , chest x-ray appeared to be worsened this a.m. .Patient subsequently became hypoxic requiring emergent intubation this a.m.., O2 sat saturation 80s on 100 % FiO2. 10/04: Intubated yesterday due to general and hypoxia. Diuresed with 80 mg furosemide 1. Tmax 99.8. Currently 97.8. Tube feeds initiated. No bowel movement. 10/05: Afebrile. Subcutaneous air in neck bilaterally on chest x-ray today. No obvious pneumothorax. No pneumothorax on chest x-ray yesterday post central line placement. Tolerating tube feeding. No bowel movement. 10/06: Currently resting in bed. Subcutaneous air neck much improved. X-ray improved. FiO2 down to 40%. Tolerating tube feeding. One bowel movement. 10/07: Afebrile. Currently on propofol drip at 40 mg/kg per minute. X-ray has improved. Currently not tolerating tube feeds. 2 bowel movements documented. Sedation vacation today ordered. 10/08: Afebrile. Saturations 95% on FiO2 50%. MRI brain showed no acute findings last night. EEG repeated for today. PLEDs on previous EEG. Vimpat along with fosphenytoin added per neurology. Arousable on the ventilator. Tube feeds to be resumed today. Discussed with at length yesterday 10/09: MAXIMUM TEMPERATURE 99.5. Currently 99.3. Tube feeds currently at 20 cc an hour. Minimal residuals. Arousable and intermittently follows commands mostly with right upper extremity. 10/10: Febrile. Tube feeds currently at 25 cc an hour. Minimal residuals. Positive BM. Not arousable this AM. EEG still reveals underlying sharp spikes. Vimpat increased yesterday. Subjective: 10/11: Remains intubated tachypneic on CPAP 11/11, Lethargic not consistently following commands. After being placed on 06/11 patient is more tachypneic, breathing in mid 30s Objective Vital Signs Date Time Temp Pulse Resp B/P (MAP) Pulse Ox O2 Delivery O2 Flow Rate FiO2 10/11/16 09:24 89 45 10/11/16 07:20 Mechanical Ventilator 10/11/16 07:20 99.7 102 28 165/95 (118) Intake and Output 10/11/16 10/11/16 10/12/16 08:00 16:00 00:00 Intake Total 1720 ml Output Total 1050 ml Balance 670 ml Result Diagram: 10/11/16 0443 10/11/16 0443 Other Results Microbiology Date/Time Source Procedure Growth Status 10/09/16 14:00 Urine Catheterized Urine Urine Culture - Final Betty Albicans Complete Laboratory Tests Test 10/11/16 08:11 Blood Gas Puncture Site RT RADIAL Blood Gas Patient Temperature 98.6 Blood Gas HCO3 30 mmol/L (22-26) Blood Gas Base Excess 4.7 mmol/L (-2-2) Blood Gas Oxygen Saturation 92 % (90-100) Arterial Blood pH 7.38 (7.380-7.420) Arterial Blood Partial Pressure CO2 51 mmHg (38-42) Arterial Blood Partial Pressure O2 78 mmHg (61-120) Arterial Blood Oxygen Content 17.4 Vol % (12.0-20.0) Arterial Blood Carboxyhemoglobin 1.9 % (0-4) Arterial Blood Methemoglobin 1.2 % (0-2) Blood Gas Hemoglobin 13.4 G/DL (12.0-16.0) Oxygen Delivery Device VENTILATOR Blood Gas Ventilator Setting CPAP5/PS5 Blood Gas Inspired Oxygen 50 % Imaging Last Impressions Chest X-Ray 10/10/16 0600 Signed Impressions: Service Date/Time: Monday, October 10, 2016 04:25 - CONCLUSION: 1. Support apparatus in satisfactory position. Patchy airspace and interstitial changes similar to October 2. Amado Crain MD Brain MRI 10/07/16 0000 Signed Impressions: Service Date/Time: September 21:45 - CONCLUSION: 1. Residual small areas of infarction seen bilaterally. There are fewer areas of signal abnormality seen on the diffusion-weighted images on the current exam. New areas of infarction are not present. 2. Areas of demyelination throughout the cerebral and pontine white matter likely from small vessel ischemic change. 3. Fluid in the mastoid air cells. Jarad Cat MD Abdomen X-Ray 10/07/16 0000 Signed Impressions: Service Date/Time: September 08:32 - CONCLUSION: Unremarkable bowel gas pattern. Sanya Cavazos MD Neck CT 10/05/16 0000 Signed Impressions: Service Date/Time: Wednesday, October 05, 2016 10:41 - CONCLUSION: Extensive subcutaneous emphysema. Jarad De Jesus MD Chest CT 10/05/16 0000 Signed Impressions: Service Date/Time: Wednesday, October 05, 2016 10:43 - CONCLUSION: Prior median sternotomy cardiac surgery atherosclerotic cardiovascular disease with left ventricular cardiomegaly and evidence of interstitial alveolar edema in both lungs consistent with CHF. Support tubes in place with subcutaneous emphysema in the soft tissues of neck bilaterally and supraclavicular. There is no evidence of pneumothorax. Lele Escudero MD Head Magnetic Resonance Angiography 09/10/16 1028 Signed Impressions: Service Date/Time: Saturday, September 10, 2016 10:57 - CONCLUSION: 1. Unremarkable MRA examination without evidence for large vessel occlusion, aneurysm, or vascular malformation. Richardson Haney MD Carotid Artery Ultrasound 09/09/16 1028 Signed Impressions: Service Date/Time: September 10:43 - CONCLUSION: 1. Moderate visible plaque without hemodynamically significant stenosis identified. No significant change from August 25. Amado Crain MD Renal Ultrasound 09/09/16 0000 Signed Impressions: Service Date/Time: September 15:41 - CONCLUSION: 1. Cortical atrophy with small bilateral renal cysts. No hydronephrosis. Amado Crain MD Head CT 09/08/16 2251 Signed Impressions: Service Date/Time: Thursday, September 08, 2016 23:41 - CONCLUSION: Stable noncontrast CT with no evidence of hemorrhage or acute infarction. Atrophy and chronic small vessel splenic changes remain. Sanya Cavazos MD Objective Remarks GENERAL: 75-year-old male currently orotracheally intubated and critically ill SKIN: Warm and dry. Well perfused HEAD: Atraumatic. Normocephalic. NECK: Trachea midline. No thyromegaly. No neck crepitus. Right IJ is clean dry and intact. CARDIOVASCULAR: IRR. S1, S2 no S4. Without murmur RESPIRATORY: Air entry decreased bilaterally at bases, scattered rhonchi. GASTROINTESTINAL: Abdomen soft, non-tender, nondistended. No guarding. BS active. MUSCULOSKELETAL: Extremities with trace to 1+ B/L lower extremity edema. No obvious deformities. NEUROLOGICAL: Opens eyes to voice. Withdraws to noxious stimulation all 4 extremities though predominantly right upper, right lower and left lower. Followed commands on repeated requests on LLE. 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 Jeffries/neurology. 10/[address] Prajapati in view of episodes of confusion. Nonfocal. EEG 10/07 bilateral PLEDs with episodic sharp activity MRI brain 10/07 - no acute findings. Residual frontal/parietal and occipital junction CVA. Significant demyelination Currently on fosphenytoin at 100 mg IV 3 times a day, levetiracetam 1500 mg IV twice a day and lacosamide 200 mg IV twice a day Repeat EEG today. Follow-up on fosphenytoin level today 9.2 but therapeutic with albumin correction EEG 10/10: Ongoing seizure activity with lightening sedation -Repeat EEG 10/11/16 Meropenem, linezolid and famotidine all discontinued Currently on alprazolam 0.25 mg every 6 hours PRN Anxiety Currently off propofol and dexmedetomidine since Tuesday. Currently midazolam drip at 2 mg an hour on hold, resume gtt if EEG today shows sz CV: Coronary disease status post CABG ASCVD Carotid stenosis TAAA Hypertension Dyslipidemia History atrial fibrillation status post ablation 2011 Followed by cardiology. Currently off atorvastatin 40 mg daily/home medication for dyslipidemia On PO Apixaban 5 mg twice a day per cardiology. Off amiodarone for suspected pulmonary toxicity Echocardiogram revealed EF 70%. OHS septal motion./Paradoxical, CARA 50-60 mmHg Currently labetalol 100 mg 3 times a day for hypertension. As needed metoprolol for tachycardia Goal systolic blood pressure less than 130 per cardiology Continue aspirin 81 mg by mouth daily Resp: Acute hypoxemic respiratory failure Subcutaneous air neck - resolved PRVC 18/600/1.2/. Ventilator bundle Albuterol/ipratropium every 6 hours with albuterol aerosols as indicated 3rd intubation. Last 10/03 proceed with tracheostomy as the patient is tachypneic on CPAP trials and is very lethargic, with ongoing evidence of seizure Chest x-ray 10/08 - improved bilateral subcutaneous neck. No obvious pneumothorax. CT chest ruled out pneumothorax. Likely barotrauma from mechanical ventilation. 10/03 switched Methylprednisolone currently on 40 mg daily- ( Prednisone 40mg q day taper over's several weeks recommended by nephrology for possible pantoprazole induced interstitial nephritis) Discontinued montelukast 10 mg by mouth daily in light of possible seizure threshold lowering/rare Pulmonary following Dr. Encinas Continue antibiotics per ID Dr. Nova - recommending lung biopsy CT surgery - [place] [facility] consulted/Dr. Souza. She agreed to tracheostomy as of Tuesday GI: On Suplena goal 55 cc an hour (per dietary recommendations) due to high tube feed residuals On sucralfate 1 g by mouth 4 times daily for GI prophylaxis Docusate sodium 100 mg twice a day, senna liquid 8.6 mg twice a day and polyethylene glycol 3350 17 g twice daily for bowel regimen Continue metoclopramide 5 mill grams IV every 8 hours 10/07 negative KUB. History of hydroureter Renal ultrasound revealed no hydronephrosis Reinsert Franco- intubated and receiving diuretics- Strict I&O's Endo: Sliding scale insulin with NovoLog with Accu-Cheks every 6 hours/low regimen Renal: Acute on chronic kidney injury Currently holding furosemide 20 mg by mouth daily Nephrology follow-up. 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 Slowly wean steroids due to this issue as above pulmonary section. Dr. Cerda following Creatinine currently 1.23. Noted BUN trending down Heme: History of colon cancer status post partial colectomy History of bladder cancer Normocytic anemia Leukocytosis Monitor CBC daily. Follow trends. Noted elevated lambda and kappa Chains/ESR likely secondary underlying acute kidney injury. Evaluated by Dr. Mccollum/hematology ID: Likely hospital-acquired pneumonia On meropenem//linezolid since 09/27 through 10/07 Pertinent cultures 10/03-repeat blood, urine Legionella and pneumococcal antigens and sputum cultures no growth 10/03-influenza negative 09/28 - blood cultures 2 - no growth 09/22 - sputum - no growth 09/16 - blood cultures 2 - no growth Recheck urine 10/09. Recheck blood cultures 2 and sputum 10/10. Off all antibiotics per infectious disease FEN: Hypernatremia - resolving Monitor and replete electrolytes Continue calcium acetate 667 mg 3 times a day will be discontinued as phosphorus normal 5 days DCd milk of magnesia from MAR free water 200 cc every 4 hours. MSK: PT evaluate and treat Prophylaxis - GI -sucralfate - DVT - SCD/apixaban Access - Right subclavian CVL placed 09/16 - 10/04 - Right IJ CVL 10/04 present Critical Care: The total critical care time was 30 minutes. Time to perform other separately billable procedures was not included in the critical care time. Patient remains critically ill. Attempt to do a spontaneous breathing trial has failed due to tachypnea pathology and ongoing seizure activity. Will repeat an EEG today, restart Versed if there is ongoing seizures Giovani Abraham MD Oct 11, 2016 10:29
--- NOTE | 2016-10-11 11:01 | RADRPT ---
EXAM DATE/TIME: 10/11/2016 10:42 [place] COMPARISON: CHEST SINGLE AP, October 11, 2016, 5:05. INDICATIONS : Shortness of breath. MEDICAL HISTORY : Myocardial infarction. Cardiovascular disease. Aneurysm, abdominal SURGICAL HISTORY : CABG. Abdominal aortic aneurysm repair ENCOUNTER: Subsequent ACUITY: 1 month PAIN SCORE: Non-responsive. LOCATION: Bilateral chest FINDINGS: Cardia megaly, interstitial and alveolar opacities are unchanged. Sternotomy wires and NG tube noted. Endotracheal tube tip at the superior margin of the clavicles. Right jugular line tip overlies the S VC. CONCLUSION: No significant change has occurred. Ajay Prabhakar MD on October 11, 2016 at 10:58 Board Certified Radiologist. This report was verified electronically.
[2016-10-11 11:45] LABS: ANION GAP 6 MEQ/L (5-15); AST (GOT) 39 U/L (15-37); BICARBONATE 29.8 MEQ/L (21.0-32.0); BLOOD UREA NITROGEN 72 MG/DL (7-18); CHLORIDE 110 MEQ/L (98-107); GLOMERULAR FILTRATION RATE 54 ML/MIN (>89); MAGNESIUM 2.1 MG/DL (1.5-2.5); POTASSIUM 4.6 MEQ/L (3.5-5.1); SODIUM (NA) 146 MEQ/L (136-145)
[2016-10-11 11:46] LABS: ALT (GPT) 27 U/L (12-78)
[2016-10-11 11:48] LABS: ALKALINE PHOSPHATASE 82 U/L (45-117); TOTAL BILIRUBIN ADULT 0.4 MG/DL (0.2-1.0)
--- NOTE | 2016-10-11 12:04 | HHI.PR ---
Subjective Remarks off sedation yesterday during eeg-c/w sz's so sedation restarted keppra increasedon vimpat and pht as well. pending eeg today as well. Objective Vital Signs Date Time Temp Pulse Resp B/P (MAP) Pulse Ox O2 Delivery O2 Flow Rate FiO2 10/11/16 11:27 45 10/11/16 11:20 96 Mechanical Ventilator 45 10/11/16 11:20 99.6 80 18 132/75 (94) 96 10/11/16 11:09 91 10/11/16 10:05 45 10/11/16 09:24 89 45 10/11/16 08:00 45 10/11/16 07:20 95 Mechanical Ventilator 45 10/11/16 07:20 99.7 102 28 165/95 (118) 94 10/11/16 07:20 102 10/11/16 07:20 45 10/11/16 04:46 95 45 10/11/16 03:00 40 10/11/16 03:00 94 10/11/16 03:00 94 Mechanical Ventilator 40 10/11/16 03:00 98.9 94 20 130/70 (90) 94 10/11/16 00:59 97 40 10/10/16 23:00 98.2 97 20 127/73 (91) 94 10/10/16 23:00 40 10/10/16 23:00 94 Mechanical Ventilator 40 10/10/16 23:00 97 10/10/16 22:40 94 40 10/10/16 20:38 94 40 10/10/16 19:00 95 Mechanical Ventilator 40 10/10/16 19:00 40 10/10/16 19:00 99.8 81 19 108/64 (79) 95 10/10/16 19:00 81 10/10/16 18:26 92 40 10/10/16 15:00 85 10/10/16 15:00 97 Mechanical Ventilator 40 10/10/16 15:00 99.6 85 20 124/70 (88) 97 10/10/16 15:00 40 10/10/16 12:30 40 10/10/16 12:25 40 10/10/16 12:22 97 40 I/O 10/10/16 10/10/16 10/10/16 10/11/16 10/11/16 10/11/16 07:00 15:00 23:00 07:00 15:00 23:00 Intake Total 2110 ml 329 ml 1700 ml 1720 ml Output Total 1400 ml 1325 ml 1050 ml Balance 710 ml 329 ml 375 ml 670 ml IV Total 1229 ml 329 ml 740 ml 520 ml Tube Feeding 281 ml 360 ml 600 ml Other 600 ml 600 ml 600 ml Output Urine Total 1050 ml 1175 ml 800 ml Stool Total 350 ml 150 ml 250 ml Result Diagram: 10/11/16 0443 10/11/16 1100 Other Results pht 9.0 Objective Remarks intubated sedation lightened eyes open with sternal rub does not follow commands Assessment and Plan Assessment and Plan sz off sedation cont vimpat 200 mg bid increased keppra 1500 mg bid cont pht level ok with his albumin. eeg today Dr Jeffries back in am. Adrienne Lagunas MD Oct 11, 2016 12:04
--- NOTE | 2016-10-11 13:07 | PD.CARD.PN ---
Subjective Subjective Remarks Recurrent seizure like activity. Failed SBT this morning due to tachypnea. HR and BP increased during SBT. Resolved now. No recurrent atrial fibrillation. Hgb trending down. no obvious source of bleeding. Renal function improving. No recent BNP. (Elin Kwok) Objective Medications Current Medications Medications (Trade) Dose Ordered Sig/Awilda Route Start Time Stop Time Status Last Admin (NS Flush) 2 ml UNSCH PRN IV FLUSH 09/09/16 00:45 10/11/16 05:19 (NS Flush) 2 ml BID IV FLUSH 09/09/16 09:00 10/10/16 20:04 (Narcan Inj) 0.4 mg UNSCH PRN IV 09/09/16 00:45 (Pill Splitter) 1 ea UNSCH PRN OTHER 09/09/16 14:00 (Eliquis) 5 mg BID PO 09/10/16 09:00 10/11/16 08:17 (Catapres) 0.1 mg Q6H PRN PO 09/11/16 14:30 09/19/16 23:02 (Lopressor Inj) 5 mg Q2HR PRN IV PUSH 09/16/16 14:00 10/10/16 00:40 (Apresoline Inj) 10 mg Q6HR PRN IV PUSH 09/16/16 12:45 10/07/16 10:46 (Racepinephrine 2.25% Neb) 0.5 ml Q1HR NEB PRN NEB 09/17/16 17:15 09/17/16 18:02 (Dulcolax Supp) 10 mg DAILY PRN RECTAL 09/19/16 13:30 (Albuterol Neb) 2.5 mg Q2HR NEB PRN NEB 09/21/16 12:00 10/02/16 21:16 (Phoslo) 667 mg TID PO 09/21/16 18:00 10/11/16 12:12 (Peridex 0.12% Liq) 15 ml BID@08,20 MT 09/22/16 20:00 10/11/16 08:00 (Ecotrin Ec) 81 mg DAILY PO 09/30/16 09:00 10/11/16 08:17 (Trandate) 100 mg TID PO 09/30/16 13:00 10/11/16 12:12 (NovoLOG SUPPLEMENTAL SCALE) 1 Q6HR SQ 10/01/16 13:15 10/10/16 18:04 (D50w (Vial) Inj) 50 ml UNSCH PRN IV PUSH 10/01/16 13:15 (Glucagon Inj) 1 mg UNSCH PRN OTHER 10/01/16 13:15 (Lasix Inj) 40 mg UNSCH IV 10/02/16 09:30 10/02/16 22:59 (Tears Naturale Opth Soln) 1 drop Q8HR EACH EYE 10/03/16 14:00 10/11/16 05:20 (Colace Liq) 100 mg Q12HR NG 10/04/16 09:00 10/11/16 08:18 (Senna Liq) 8.8 mg BID NG 10/04/16 09:00 10/11/16 08:18 (NS Flush) DAILY IVF 10/04/16 12:45 10/11/16 08:19 (NS Flush) UNSCH PRN IVF 10/04/16 12:45 (Miralax) 17 gm BID NG 10/05/16 09:00 10/11/16 08:17 (Peridex 0.12% Liq) 15 ml BID@08,20 MT 10/07/16 08:00 (Reglan Inj) 5 mg Q8HR IV PUSH 10/07/16 08:00 10/11/16 05:19 Dexmedetomidine HCl 200 mcg/ Sodium Chloride 52 ml @ 4.64 mls/hr TITRATE PRN IV 10/07/16 13:00 (Trandate Inj) 10 mg Q1HR PRN IV PUSH 10/07/16 13:00 10/10/16 05:42 (Nitroglycerin 2% Oint) 2 inch Q6HR PRN TOPICAL 10/07/16 13:00 (Duoneb Neb) 1 ampule Q6HR NEB NEB 10/07/16 16:00 10/11/16 09:23 Propofol 100 ml @ 2.682 mls/ hr TITRATE PRN IV 10/07/16 17:00 10/07/16 19:34 (Cerebyx Inj) 100 mgpe Q8HR IV 10/08/16 06:00 10/11/16 05:19 (Carafate Liq) 1 gm Q6HR NG 10/08/16 12:00 10/11/16 12:12 Lacosamide 200 mg/ Sodium Chloride 120 ml @ 110 mls/hr Q12H IV 10/09/16 00:00 10/11/16 12:12 (Free Water) 200 ml Q4HR G-TUBE 10/09/16 08:00 10/11/16 12:00 Levetriacetam 100 ml @ 400 mls/hr Q12HR IV 10/09/16 09:00 10/11/16 08:47 (SoluMEDROL INJ) 40 mg DAILY IV PUSH 10/10/16 09:00 10/11/16 08:17 Levetriacetam 500 mg/Sodium Chloride 105 ml @ 420 mls/hr Q12HR IV 10/10/16 09:00 10/11/16 08:48 Midazolam HCl 100 ml @ 2 mls/hr TITRATE PRN IV 10/10/16 06:30 10/10/16 06:25 (Lasix Inj) 40 mg ONCE ONCE IV PUSH 10/11/16 13:15 10/11/16 13:16 UNV Vital Signs / I&O Vital Signs Date Time Temp Pulse Resp B/P (MAP) Pulse Ox O2 Delivery O2 Flow Rate FiO2 10/11/16 11:27 45 10/11/16 11:20 96 Mechanical Ventilator 45 10/11/16 11:20 99.6 80 18 132/75 (94) 96 10/11/16 11:09 91 10/11/16 10:05 45 10/11/16 09:24 89 45 10/11/16 08:00 45 10/11/16 07:20 95 Mechanical Ventilator 45 10/11/16 07:20 99.7 102 28 165/95 (118) 94 10/11/16 07:20 102 10/11/16 07:20 45 10/11/16 04:46 95 45 10/11/16 03:00 40 10/11/16 03:00 94 10/11/16 03:00 94 Mechanical Ventilator 40 10/11/16 03:00 98.9 94 20 130/70 (90) 94 10/11/16 00:59 97 40 10/10/16 23:00 98.2 97 20 127/73 (91) 94 10/10/16 23:00 40 10/10/16 23:00 94 Mechanical Ventilator 40 10/10/16 23:00 97 10/10/16 22:40 94 40 10/10/16 20:38 94 40 10/10/16 19:00 95 Mechanical Ventilator 40 10/10/16 19:00 40 10/10/16 19:00 99.8 81 19 108/64 (79) 95 10/10/16 19:00 81 10/10/16 18:26 92 40 10/10/16 15:00 85 10/10/16 15:00 97 Mechanical Ventilator 40 10/10/16 15:00 99.6 85 20 124/70 (88) 97 10/10/16 15:00 40 I/O 10/10/16 10/10/16 10/10/16 10/11/16 10/11/16 10/11/16 06:59 14:59 22:59 06:59 14:59 22:59 Intake Total 2110 ml 329 ml 1700 ml 1720 ml Output Total 1400 ml 1325 ml 1050 ml Balance 710 ml 329 ml 375 ml 670 ml IV Total 1229 ml 329 ml 740 ml 520 ml Tube Feeding 281 ml 360 ml 600 ml Other 600 ml 600 ml 600 ml Output Urine Total 1050 ml 1175 ml 800 ml Stool Total 350 ml 150 ml 250 ml Physical Exam GENERAL: Elderly male, intubated. bedside SKIN: Warm and dry. HEAD: Normocephalic. EYES: No scleral icterus. No injection or drainage. NECK: Supple, trachea midline CARDIOVASCULAR: Midline incision healing well, reg rate and rhythm RESPIRATORY: Intubated GASTROINTESTINAL: Abdomen soft, non-tender, nondistended. MUSCULOSKELETAL: No cyanosis, no BLE edema BACK: Nontender without obvious deformity. Laboratory Laboratory Tests Test 10/11/16 04:43 10/11/16 08:11 10/11/16 11:00 White Blood Count 16.9 TH/MM3 Red Blood Count 2.68 MIL/MM3 Hemoglobin 8.1 GM/DL Hematocrit 25.0 % Mean Corpuscular Volume 93.3 FL Mean Corpuscular Hemoglobin 30.1 PG Mean Corpuscular Hemoglobin Concent 32.3 % Red Cell Distribution Width 17.1 % Platelet Count 169 TH/MM3 Mean Platelet Volume 8.3 FL Neutrophils (%) (Auto) 74.3 % Lymphocytes (%) (Auto) 10.1 % Monocytes (%) (Auto) 6.9 % Eosinophils (%) (Auto) 8.4 % Basophils (%) (Auto) 0.3 % Neutrophils # (Auto) 12.5 TH/MM3 Lymphocytes # (Auto) 1.7 TH/MM3 Monocytes # (Auto) 1.2 TH/MM3 Eosinophils # (Auto) 1.4 TH/MM3 Basophils # (Auto) 0.0 TH/MM3 CBC Comment DIFF FINAL Differential Comment Blood Urea Nitrogen 78 MG/DL 72 MG/DL Creatinine 1.23 MG/DL 1.29 MG/DL Random Glucose 139 MG/DL 133 MG/DL Total Protein 5.3 GM/DL 5.5 GM/DL Albumin 2.1 GM/DL 2.2 GM/DL Calcium Level 8.5 MG/DL 8.4 MG/DL Phosphorus Level 2.6 MG/DL Magnesium Level 2.1 MG/DL 2.1 MG/DL Alkaline Phosphatase 86 U/L 82 U/L Aspartate Amino Transf (AST/SGOT) 35 U/L 39 U/L Alanine Aminotransferase (ALT/SGPT) 25 U/L 27 U/L Total Bilirubin 0.4 MG/DL 0.4 MG/DL Sodium Level 146 MEQ/L 146 MEQ/L Potassium Level 4.2 MEQ/L 4.6 MEQ/L Chloride Level 109 MEQ/L 110 MEQ/L Carbon Dioxide Level 31.1 MEQ/L 29.8 MEQ/L Anion Gap 6 MEQ/L 6 MEQ/L Estimat Glomerular Filtration Rate 57 ML/MIN 54 ML/MIN Blood Gas Puncture Site RT RADIAL Blood Gas Patient Temperature 98.6 Blood Gas HCO3 30 mmol/L Blood Gas Base Excess 4.7 mmol/L Blood Gas Oxygen Saturation 92 % Arterial Blood pH 7.38 Arterial Blood Partial Pressure CO2 51 mmHg Arterial Blood Partial Pressure O2 78 mmHg Arterial Blood Oxygen Content 17.4 Vol % Arterial Blood Carboxyhemoglobin 1.9 % Arterial Blood Methemoglobin 1.2 % Blood Gas Hemoglobin 13.4 G/DL Oxygen Delivery Device VENTILATOR Blood Gas Ventilator Setting CPAP5/PS5 Blood Gas Inspired Oxygen 50 % Phenytoin (Dilantin) Level 9.0 MCG/ML Imaging Last 72 hours Impressions Chest X-Ray 10/11/16 0600 Signed Impressions: Service Date/Time: Tuesday, October 11, 2016 05:05 - CONCLUSION: No significant change. Jarad Aleman MD Chest X-Ray 9/4/17 0000 Signed Impressions: Service Date/Time: Tuesday, October 11, 2016 10:42 - CONCLUSION: No significant change has occurred. Ajay Prabhakar MD Chest X-Ray 10/10/16 06 Signed Impressions: Service Date/Time: Monday, October 10, 2016 04:25 - CONCLUSION: 1. Support apparatus in satisfactory position. Patchy airspace and interstitial changes similar to October 09. Amado Crain MD Chest X-Ray 10/09/16599 Signed Impressions: Service Date/Time: Sunday, October 09, 2016 04:09 - CONCLUSION: 1. Support apparatus in satisfactory position. Interstitial and hazy airspace disease similar to prior exam. Amado Crain MD (Elin Kwok) Assessment and Plan Problem List: (1) History of CVA (cerebrovascular accident) ICD Codes: Z86.73 - Personal history of transient ischemic attack (TIA), and cerebral infarction without residual deficits Status: Acute (2) CKD (chronic kidney disease) stage 3, GFR 30-59 ml/min ICD Codes: N18.3 - Chronic kidney disease, stage 3 (moderate) Status: Acute (3) S/P CABG x 3 ICD Codes: Z95.1 - Presence of aortocoronary bypass graft Status: Acute (4) Atrial fibrillation ICD Codes: I48.91 - Unspecified atrial fibrillation (5) Acute hypoxemic respiratory failure ICD Codes: J96.01 - Acute respiratory failure with hypoxia Status: Acute (6) Hypertension ICD Codes: I10 - Essential (primary) hypertension Status: Acute (7) Thoracic aortic aneurysm without rupture ICD Codes: I71.2 - Thoracic aortic aneurysm, without rupture Status: Acute Assessment and Plan PLAN: Continue labetalol and Eliquis Weaning high dose steroids Resume lasix . check BNP. SBP goal < 130 DBP goal < 90. The patient was seen and evaluated by Dr. Moran who completed a [id number] encounter, completed a physical exam and participated in evaluation and management. (Elin Kwok) Assessment and Plan The exam, history, and the medical decision-making described in the above note were completed with the assistance of the mid-level provider. I reviewed and agree with the findings presented. I attest that I had a [id number] encounter with the patient on the same day, and personally performed and documented my assessment and findings in the medical record Doing marginally better Cxray shows infiltrates will try re diuresing pt to see if these clear. (Suellen Moran MD) Elin Kwok Oct 11, 2016 13:07 Suellen Moran MD Oct 11, 2016 18:18
[2016-10-11] MEDS ORDERED: FUROSEMIDE 40 MG/4 ML VIAL IV PUSH ONE (13:15)
[2016-10-11] MEDS: FUROSEMIDE 20 MG/2 ML VIAL IV SCH (13:29)
--- NOTE | 2016-10-11 17:07 | HHI.PR ---
Subjective Remarks Intubated and on a ventilator , with FIo2 at 45 %. Chest X Ray is better Had seizure activity 2 days ago. Now on anti seizure meds. Off sedation. Lethargic today.Not tolerating CPAP. Objective Vital Signs Date Time Temp Pulse Resp B/P (MAP) Pulse Ox O2 Delivery O2 Flow Rate FiO2 10/11/16 16:29 40 10/11/16 15:13 97 Mechanical Ventilator 45 10/11/16 15:12 45 10/11/16 15:07 88 10/11/16 15:07 99.0 88 20 133/74 (93) 97 10/11/16 12:45 97 45 10/11/16 11:27 45 10/11/16 11:20 96 Mechanical Ventilator 45 10/11/16 11:20 99.6 80 18 132/75 (94) 96 10/11/16 11:09 91 10/11/16 10:05 45 10/11/16 09:24 89 45 10/11/16 08:00 45 10/11/16 07:20 95 Mechanical Ventilator 45 10/11/16 07:20 99.7 102 28 165/95 (118) 94 10/11/16 07:20 102 10/11/16 07:20 45 10/11/16 04:46 95 45 10/11/16 03:00 40 10/11/16 03:00 94 10/11/16 03:00 94 Mechanical Ventilator 40 10/11/16 03:00 98.9 94 20 130/70 (90) 94 10/11/16 00:59 97 40 10/10/16 23:00 98.2 97 20 127/73 (91) 94 10/10/16 23:00 40 10/10/16 23:00 94 Mechanical Ventilator 40 10/10/16 23:00 97 10/10/16 22:40 94 40 10/10/16 20:38 94 40 10/10/16 19:00 95 Mechanical Ventilator 40 10/10/16 19:00 40 10/10/16 19:00 99.8 81 19 108/64 (79) 95 10/10/16 19:00 81 10/10/16 18:26 92 40 I/O 10/10/16 10/10/16 10/10/16 10/11/16 10/11/16 10/11/16 07:00 15:00 23:00 07:00 15:00 23:00 Intake Total 2110 ml 329 ml 1700 ml 1720 ml Output Total 1400 ml 1325 ml 1050 ml Balance 710 ml 329 ml 375 ml 670 ml IV Total 1229 ml 329 ml 740 ml 520 ml Tube Feeding 281 ml 360 ml 600 ml Other 600 ml 600 ml 600 ml Output Urine Total 1050 ml 1175 ml 800 ml Stool Total 350 ml 150 ml 250 ml Result Diagram: 10/11/16 0443 10/11/16 1100 Objective Remarks GENERAL: This moderately overweight elderly man ,Intubated on the vent. HEENT: Head is normocephalic. Pupils are reactive. Tongue is moist. Throat clear NECK: No venous distention. No thyroid enlargement. CHEST: Equal movements with diminished breath sounds at the bases with Occ basal crackles.Occ Wheeze. HEART: Sounds are irregular S1-S2. No murmur. ABDOMEN: Soft. Protuberant without masses. No organomegaly. EXTREMITIES: Decreased pulses. No Edema SKIN: warm. Neuro : lethargic.Moves arm and feet. Assessment and Plan Assessment and Plan IMPRESSION 1. Acute respiratory failure.Resolving 2. Fluid overload status with pulmonary edema. 3. Acute kidney failure.Resolving 4. History of cerebrovascular accident. 5. Bibasilar atelectasis with possible pneumonia. 6. History of colon cancer and bladder cancer. 7. Possible Hypersensitivity Pneumonia or Edema Plan : 1. CPAP trial daily and resp parameters 2. FIO2 at 40 %and wean to keep sat >92. 3. Nebs qid ,Duoneb. 4. D/C IV sedation 5. Antibiotics per ID 6. Cont Keppra/Dilantin 7. solumedrol IV 30 mg daily. 8. Chest Xray in am Jaime Encinas MD Oct 11, 2016 17:07
--- NOTE | 2016-10-11 21:47 | MG ---
cc: ADRIENNE LAGUNAS M.D. Lab No: [id number] Date: 10/11/16 Age: 75 Sex: M Race: DATE OF 1940 AGE [id number]. REFERRING PHYSICIAN Jarad PARRISH 446 Intubated, no sedation since 11:00 p.m. last night. Hyperventilation was left out, only photic done. Last EEG on 10/10 showed still abnormalities when the sedation was shut off with sharps. History of a 75-year-old male with a history of heart disease, a-fib, stroke, on Keppra, lacosamide and Cerebyx. DESCRIPTION OF RECORD Background is slow attenuated, predominantly of delta frequency. EKG looks like he is in sinus rhythm at this time. Photic stimulation does not elicit any posterior driving response. Staff asked the patient to follow commands, squeeze, did not see any significant change except some artifact. He did not squeeze, did not wiggle his toes. IMPRESSION Abnormal EEG due to significant background slowing predominately of delta frequency consistent with moderately severe encephalopathic process. However, this time the patient being off sedation no epileptiform features were seen. Clinical correlation. Adrienne Lagunas MD DF/NANCY /9:12 PM /9:32 PM
[2016-10-12] VITALS (12 sets, daily range): BP systolic 111–141; BP diastolic 71–82; PULSE 79–92; RESP 18–28; TEMP 98.4–100.2; O2SAT 94–97
[2016-10-12] MEDS: FREE WATER G-TUBE SCH ×5 (04:00→19:59)
[2016-10-12 04:09] LABS: AUTOMATED NEUTROPHIL # 12.8 TH/MM3 (1.8-7.7); BASOPHIL # 0.1 TH/MM3 (0-0.2); BASOPHIL % 0.4 % (0.0-2.0); EOSINOPHIL # 1.4 TH/MM3 (0-0.4); EOSINOPHIL % 8.1 % (0.0-4.0); HEMATOCRIT 25.8 % (39.0-51.0); HEMO FLAGS DIFF FINAL; LYMPH % 8.8 % (9.0-44.0); LYMPHOCYTE # 1.5 TH/MM3 (1.0-4.8); MEAN CELL VOLUME 92.9 FL (80.0-100.0); MEAN CORPUSCULAR HEMOGLOBIN 30.1 PG (27.0-34.0); MEAN CORPUSCULAR HGB CONC 32.4 % (32.0-36.0); MONO % 7.8 % (0.0-8.0); NEUT % 74.9 % (16.0-70.0); PLATELET COUNT 162 TH/MM3 (150-450); RED BLOOD COUNT 2.77 MIL/MM3 (4.50-5.90); WHITE BLOOD COUNT 17.1 TH/MM3 (4.0-11.0)
[2016-10-12] MEDS: LABETALOL HCL 100 MG/20 ML VIAL IV PUSH PRN (04:09)
[2016-10-12] MEDS: SUCRALFATE 1 GM/10 ML CUP NG SCH ×3 (05:21→17:53)
[2016-10-12] MEDS: FOSPHENYTOIN SODIUM 100 MG PE/2 ML VIAL IV SCH ×2 (05:22→14:09)
[2016-10-12] MEDS: METOCLOPRAMIDE HCL 10 MG/2 ML VIAL IV PUSH SCH ×2 (05:37→14:09)
[2016-10-12] MEDS: ARTIFICIAL TEARS OPTH SOLN 15 ML BTL EACH EYE SCH ×2 (05:38→14:10)
[2016-10-12] MEDS: INSULIN ASPART SUPPLEMENTAL SCALE SQ SCH ×3 (06:00→17:54)
--- NOTE | 2016-10-12 07:31 | HHI.CCPN ---
Subjective Remarks/Hospital Course 75 y/o man now about 4 weeks following CABG complicated by CVA. Presented back 08/28 with new onset right arm weakness. Hospital course has been complicated by CKD and fluid overload. We have attempted BiPAP for several hours but he remains in distress and although oxygenation is acceptable work of breathing is excessive. Worrisome increasing metabolic acidosis. 09/17: Gas exchange much improved. BNP 1681, ScVO2 71%. It appears that cardiac output is more than adequate for peripheral needs and the primary pathology is renal failure and fluid overload. If we can manage volume I can probably get him extubated. 09/18: Diffuse crackles. Needs to be diuresed today. Tolerating extubation but at risk for hypoxemic failure again. 09/20 - Re consulted due to worsening hypoxia. Currently on nonrebreather mask. Chest x-ray shows worsening consolidation right lobe creatinine slightly improved over. Family request transfer to [facility] however refused. We'll attempt to decipher status currently unknown. 09/21: Remains on nonrebreather mask. Saturations between 89-97%. Chest x-ray unchanged. Not tachypnea. Not confused. 09/22: Radiographic studies show diffuse interstitial process with skip areas - more indicative of infectious/inflammatory process. Sats 85% with labored pattern. Required intubation for deteriorating respiratory status. 09/23: Gas exchange improving. Pulmonary infiltrates remain very concerning - if most recent sputum is benign I would not be opposed to steroids. 09/24: Extubated today. On 3 L nasal cannula. Passed swallow evaluation. Appropriate interactive status post extubation. 09/29: Critical care reconsult requested by Dr. Meza for respiratory failure. Patient reportedly was on BiPAP this morning. He was given additional diuretic earlier as he was short of breath. With this he seems to have improved somewhat and has been on a nonrebreather facemask for more than a few hours. He states that he is breathing much better. Patient being adamant about not using BiPAP. I had a detailed conversation about the importance of using BiPAP especially at night in view of his history of sleep apnea. Patient did not appear to be in acute distress though he was requiring a nonrebreather facemask at the time of my evaluation. No urgent need for BiPAP or intubation at this time. In fact patient is stating that he is breathing much better than this morning. 09/30: Remains on nonrebreather facemask. Refused BiPAP at night. States that he is breathing better today than yesterday. 10/01: 02 30 L/m 100% FiO2. O2 sats borderline. Episodes of confusion. When I evaluated the patient he was sitting up in bed and was able to converse. Not using accessory muscles of respirations currently. 10/02: The patient is alert and oriented currently has been weaned down to high flow nasal cannula with an FiO2 of 65%, maintaining O2 saturation to 95%. Patient is appropriately conversant no episodes of confusion noted. 10/03: Yesterday, the patient received 2 units of packed red blood cells with Furosemide dosing in between transfusion of units, with diuresis of approximately 2900 cc. Last night, the patient was noted to have respiratory decompensation, continued refusal to utilize BiPAP during the night. FiO2 requirements increased to 100% this a.m., on high flow nasal cannula, with noted accessory muscle use and inability to speak in complete sentences secondary to dyspnea. The patient received additional dose of Lasix this a.m. , chest x-ray appeared to be worsened this a.m. .Patient subsequently became hypoxic requiring emergent intubation this a.m.., O2 sat saturation 80s on 100 % FiO2. 10/04: Intubated yesterday due to general and hypoxia. Diuresed with 80 mg furosemide 1. Tmax 99.8. Currently 97.8. Tube feeds initiated. No bowel movement. 10/05: Afebrile. Subcutaneous air in neck bilaterally on chest x-ray today. No obvious pneumothorax. No pneumothorax on chest x-ray yesterday post central line placement. Tolerating tube feeding. No bowel movement. 10/06: Currently resting in bed. Subcutaneous air neck much improved. X-ray improved. FiO2 down to 40%. Tolerating tube feeding. One bowel movement. 10/07: Afebrile. Currently on propofol drip at 40 mg/kg per minute. X-ray has improved. Currently not tolerating tube feeds. 2 bowel movements documented. Sedation vacation today ordered. 10/08: Afebrile. Saturations 95% on FiO2 50%. MRI brain showed no acute findings last night. EEG repeated for today. PLEDs on previous EEG. Vimpat along with fosphenytoin added per neurology. Arousable on the ventilator. Tube feeds to be resumed today. Discussed with at length yesterday 10/09: MAXIMUM TEMPERATURE 99.5. Currently 99.3. Tube feeds currently at 20 cc an hour. Minimal residuals. Arousable and intermittently follows commands mostly with right upper extremity. 10/10: Febrile. Tube feeds currently at 25 cc an hour. Minimal residuals. Positive BM. Not arousable this AM. EEG still reveals underlying sharp spikes. Vimpat increased yesterday. Subjective: 10/11: Remains intubated tachypneic on CPAP 11/11, Lethargic not consistently following commands. After being placed on 06/11 patient is more tachypneic, breathing in mid 30s 10/12: Remains intubated off sedation. Very lethargic, copious oral secretions and moderate ET tube secretions. We'll discuss with general surgery regarding tracheostomy today. 10/11/16 did not show seizure activity but moderate encephalopathy Objective Vital Signs Date Time Temp Pulse Resp B/P (MAP) Pulse Ox O2 Delivery O2 Flow Rate FiO2 10/12/16 07:00 45 10/12/16 07:00 97 Mechanical Ventilator 10/12/16 03:00 98.4 91 22 138/78 (98) Intake and Output 10/12/16 10/12/16 10/12/16 07:59 15:59 23:59 Intake Total 374 ml Output Total 1300 ml Balance -926 ml Result Diagram: 10/12/16 0350 10/11/16 1100 Other Results Microbiology Date/Time Source Procedure Growth Status 10/09/16 14:00 Urine Catheterized Urine Urine Culture - Final Betty Albicans Complete Laboratory Tests Test 10/11/16 08:11 Blood Gas Puncture Site RT RADIAL Blood Gas Patient Temperature 98.6 Blood Gas HCO3 30 mmol/L (22-26) Blood Gas Base Excess 4.7 mmol/L (-2-2) Blood Gas Oxygen Saturation 92 % (90-100) Arterial Blood pH 7.38 (7.380-7.420) Arterial Blood Partial Pressure CO2 51 mmHg (38-42) Arterial Blood Partial Pressure O2 78 mmHg (61-120) Arterial Blood Oxygen Content 17.4 Vol % (12.0-20.0) Arterial Blood Carboxyhemoglobin 1.9 % (0-4) Arterial Blood Methemoglobin 1.2 % (0-2) Blood Gas Hemoglobin 13.4 G/DL (12.0-16.0) Oxygen Delivery Device VENTILATOR Blood Gas Ventilator Setting CPAP5/PS5 Blood Gas Inspired Oxygen 50 % Imaging Last Impressions Chest X-Ray 10/10/16 0600 Signed Impressions: Service Date/Time: Monday, October 10, 2016 04:25 - CONCLUSION: 1. Support apparatus in satisfactory position. Patchy airspace and interstitial changes similar to October 2. Amado Crain MD Brain MRI 10/07/16 0000 Signed Impressions: Service Date/Time: September 21:45 - CONCLUSION: 1. Residual small areas of infarction seen bilaterally. There are fewer areas of signal abnormality seen on the diffusion-weighted images on the current exam. New areas of infarction are not present. 2. Areas of demyelination throughout the cerebral and pontine white matter likely from small vessel ischemic change. 3. Fluid in the mastoid air cells. Jarad Cat MD Abdomen X-Ray 10/07/16 0000 Signed Impressions: Service Date/Time: September 08:32 - CONCLUSION: Unremarkable bowel gas pattern. Sanya Cavazos MD Neck CT 10/05/16 0000 Signed Impressions: Service Date/Time: Wednesday, October 05, 2016 10:41 - CONCLUSION: Extensive subcutaneous emphysema. Jarad De Jesus MD Chest CT 10/05/16 0000 Signed Impressions: Service Date/Time: Wednesday, October 05, 2016 10:43 - CONCLUSION: Prior median sternotomy cardiac surgery atherosclerotic cardiovascular disease with left ventricular cardiomegaly and evidence of interstitial alveolar edema in both lungs consistent with CHF. Support tubes in place with subcutaneous emphysema in the soft tissues of neck bilaterally and supraclavicular. There is no evidence of pneumothorax. Lele Escudero MD Head Magnetic Resonance Angiography 09/10/16 1028 Signed Impressions: Service Date/Time: Saturday, September 10, 2016 10:57 - CONCLUSION: 1. Unremarkable MRA examination without evidence for large vessel occlusion, aneurysm, or vascular malformation. Richardson Haney MD Carotid Artery Ultrasound 09/09/16 1028 Signed Impressions: Service Date/Time: September 10:43 - CONCLUSION: 1. Moderate visible plaque without hemodynamically significant stenosis identified. No significant change from August 25. Amado Crain MD Renal Ultrasound 09/09/16 0000 Signed Impressions: Service Date/Time: September 15:41 - CONCLUSION: 1. Cortical atrophy with small bilateral renal cysts. No hydronephrosis. Amado Crain MD Head CT 09/08/16 2251 Signed Impressions: Service Date/Time: Thursday, September 08, 2016 23:41 - CONCLUSION: Stable noncontrast CT with no evidence of hemorrhage or acute infarction. Atrophy and chronic small vessel splenic changes remain. Sanya Cavazos MD Objective Remarks GENERAL: 75-year-old male currently orotracheally intubated and critically ill SKIN: Warm and dry. Well perfused HEAD: Atraumatic. Normocephalic. ENT: Orotracheally intubated moderate ET tube secretions NECK: Trachea midline. No thyromegaly. No neck crepitus. Right IJ is clean dry and intact. CARDIOVASCULAR: IRR. S1, S2 no S4. Without murmur RESPIRATORY: Air entry decreased bilaterally at bases, scattered rhonchi. GASTROINTESTINAL: Abdomen soft, non-tender, nondistended. No guarding. BS active. MUSCULOSKELETAL: Extremities with trace to 1+ B/L lower extremity edema. No obvious deformities. NEUROLOGICAL: Opens eyes to sternal rub. Withdraws to noxious stimulation all 4 extremities though predominantly right upper, right lower and left lower. Intermittently follows commands per night RN. Procedures 10/03- intubation Urinary Catheter: Yes Assessment to: Continue Date of Insertion: Oct 03, 2016 Vascular Central Line Catheter: Yes Assessment to: Continue Date of Insertion: Oct 04, 2016 Line: Central Venous Catheter Side: Right Location: Internal, Jugular A/P Assessment and Plan Neuro/Psych: Left occipital, bilateral frontal parietal cerebellar CVA subacute Seizure Chronic headaches Chronic benzodiazepine use, chronic oxycodone use MRI 09/10 brain revealed left occipital, bilateral frontal parietal and cerebellar CVA likely ALFIE/EYEGLASS [employer] distribution MRI brain 10/07 - no acute findings. Residual frontal/parietal and occipital junction CVA. Significant demyelination Followed by Dr. Jeffries/neurology. 10/[address] Prajapati in view of episodes of confusion. Nonfocal. EEG 10/07 bilateral PLEDs with episodic sharp activity EEG 10/10: Ongoing seizure activity with lightening sedation -Repeat EEG 10/11/16-no seizure activity, moderate encephalopathy Currently on fosphenytoin at 100 mg IV 3 times a day, levetiracetam 1500 mg IV twice a day and lacosamide 200 mg IV twice a day Repeat EEG today. Dilantin level 10/11/16 9.2 -therapeutic with albumin correction Meropenem, linezolid and famotidine all discontinued Currently on alprazolam 0.25 mg every 6 hours PRN Anxiety Currently off propofol and dexmedetomidine since Tuesday. Midazolam drip at 2 mg an hour on hold CV: Coronary disease status post CABG ASCVD Carotid stenosis TAAA Hypertension Dyslipidemia History atrial fibrillation status post ablation 2011 Followed by cardiology. Currently off atorvastatin 40 mg daily/home medication for dyslipidemia On PO Apixaban 5 mg twice a day per cardiology. aspirin 81 mg by mouth daily. Hold both in anticipation of tracheostomy and PEG placement Off amiodarone for suspected pulmonary toxicity Echocardiogram revealed EF 70%. OHS septal motion./Paradoxical, CARA 50-60 mmHg Currently labetalol 100 mg 3 times a day for hypertension. As needed metoprolol for tachycardia Goal systolic blood pressure less than 130 per cardiology Resp: Acute hypoxemic respiratory failure Subcutaneous air neck - resolved PRVC 18/600/1.2/. Ventilator bundle. Daily SBT Unable to extubate due to severe neuromuscular weakness and encephalopathy and CVA Plan for tracheostomy today if okay with general surgery Albuterol/ipratropium every 6 hours with albuterol aerosols as indicated 3rd intubation. Last 10/03 Chest x-ray 10/08 - improved bilateral subcutaneous neck. No obvious pneumothorax. CT chest ruled out pneumothorax. Likely barotrauma from mechanical ventilation. 10/03 switched Methylprednisolone currently on 40 mg daily- ( Prednisone 40mg q day taper over's several weeks recommended by nephrology for possible pantoprazole induced interstitial nephritis) Discontinued montelukast 10 mg by mouth daily in light of possible seizure threshold lowering/rare Pulmonary following Dr. Encinas Continue antibiotics per ID Dr. Nova - recommending lung biopsy [facility] surgery [facility] GI: On Suplena goal 55 cc an hour (per dietary recommendations) On sucralfate 1 g by mouth 4 times daily for GI prophylaxis Docusate sodium 100 mg twice a day, senna liquid 8.6 mg twice a day and polyethylene glycol 3350 17 g twice daily for bowel regimen Continue metoclopramide 5 mill grams IV every 8 hours 10/07 negative KUB. GI consult for PEG History of hydroureter Renal ultrasound revealed no hydronephrosis Reinsert Choi- intubated and receiving diuretics- Strict I&O's Endo: Sliding scale insulin with NovoLog with Accu-Cheks every 6 hours/low regimen Renal: Acute on chronic kidney injury Currently holding furosemide 20 mg by mouth daily Nephrology follow-up. 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 Slowly wean steroids due to this issue as above pulmonary section. Dr. Cerda following Creatinine currently 1.2. BUN trending down Heme: History of colon cancer status post partial colectomy History of bladder cancer Normocytic anemia Leukocytosis Monitor CBC daily. Follow trends. Noted elevated lambda and kappa Chains/ESR likely secondary underlying acute kidney injury. Evaluated by Dr. Mccollum/hematology ID: Likely hospital-acquired pneumonia Meropenem//linezolid 09/27 through 10/07 Pertinent cultures 10/03-repeat blood, urine Legionella and pneumococcal antigens and sputum cultures no growth 10/03-influenza negative 09/28 - blood cultures 2 - no growth 09/22 - sputum - no growth 09/16 - blood cultures 2 - no growth Recheck urine 10/09- Betty- change choi Recheck blood cultures 2 and sputum 10/10. Off all antibiotics per infectious disease FEN: Hypernatremia - resolving Monitor and replete electrolytes Continue calcium acetate 667 mg 3 times a day will be discontinued as phosphorus normal 5 days DCd milk of magnesia from MAR free water 200 cc every 4 hours. MSK: PT evaluate and treat Prophylaxis - GI -sucralfate - DVT - SCD/apixaban Access - Right subclavian CVL placed 09/16 - 10/04 - Right IJ CVL 10/04 present Critical Care: Level 3 Patient remains critically ill. Attempt to do a spontaneous breathing trial has failed due to tachypnea pathology and patient is unable to protect airway if extubated. Giovani Abraham MD Oct 12, 2016 07:31
[2016-10-12] MEDS: CHLORHEXIDINE 0.12% (ORAL KIT) 15 ML CUP MT SCH ×4 (08:00→20:00)
[2016-10-12] MEDS ORDERED: MISC INFORMATION OTHER ONE (08:30)
[2016-10-12] MEDS: SODIUM CHLORIDE 0.9% FLUSH 10 ML FLUSH IVF SCH (09:00)
[2016-10-12] MEDS: levETIRAcetam 1000 MG INJ 100 ML IV SCH ×2 (09:11→19:58)
[2016-10-12] MEDS: SENNOSIDES SYRUP 8.8 MG/5 ML CUP NG SCH ×2 (09:12→19:58)
[2016-10-12] MEDS: FUROSEMIDE 40 MG/4 ML VIAL IV PUSH SCH (09:12)
[2016-10-12] MEDS: POLYETHYLENE GLYCOL 17 GM PKG NG SCH ×2 (09:12→19:58)
[2016-10-12] MEDS: DOCUSATE SODIUM 100 MG/10 ML UDC NG SCH ×2 (09:12→19:58)
[2016-10-12] MEDS: levETIRAcetam INJ 500 MG in SODIUM CHLORIDE 0.9% INJ 100 ML IV SCH ×2 (09:12→19:58)
[2016-10-12] MEDS: methylPREDNISolone SOD SUCC 40 MG/1 ML VIAL IV PUSH SCH (09:12)
[2016-10-12] MEDS: LABETALOL HCL 100 MG TAB PO SCH ×3 (09:13→17:53)
[2016-10-12] MEDS: CALCIUM ACETATE 667 MG CAP PO SCH ×3 (09:13→17:54)
[2016-10-12] MEDS: SODIUM CHLORIDE 0.9% FLUSH 10 ML FLUSH IV FLUSH SCH ×2 (09:14→19:58)
--- NOTE | 2016-10-12 11:25 | HHI.PR ---
Subjective Subjective Notes Intubated/Sedated Objective Vitals/I&O Vital Signs Date Time Temp Pulse Resp B/P (MAP) Pulse Ox O2 Delivery O2 Flow Rate FiO2 10/12/16 11:00 97 Mechanical Ventilator 45 10/12/16 11:00 100.2 89 28 129/76 (93) Labs Laboratory Tests Test 10/12/16 03:50 White Blood Count 17.1 Red Blood Count 2.77 Hemoglobin 8.4 Hematocrit 25.8 Mean Corpuscular Volume 92.9 Mean Corpuscular Hemoglobin 30.1 Mean Corpuscular Hemoglobin Concent 32.4 Red Cell Distribution Width 17.0 Platelet Count 162 Mean Platelet Volume 8.5 Neutrophils (%) (Auto) 74.9 Lymphocytes (%) (Auto) 8.8 Monocytes (%) (Auto) 7.8 Eosinophils (%) (Auto) 8.1 Basophils (%) (Auto) 0.4 Neutrophils # (Auto) 12.8 Lymphocytes # (Auto) 1.5 Monocytes # (Auto) 1.3 Eosinophils # (Auto) 1.4 Basophils # (Auto) 0.1 CBC Comment DIFF FINAL Differential Comment Date/Time Source Procedure Growth Status 10/10/16 12:08 Blood Peripheral Aerobic Blood Culture - Preliminary NO GROWTH IN 2 DAYS Resulted 10/10/16 12:08 Blood Peripheral Anaerobic Blood Culture - Preliminary NO GROWTH IN 2 DAYS Resulted 09/12/16 01:00 Stool Stool Stool Occult Blood (JAME) - Final HEMOCCULT NEGATIVE Complete 10/10/16 18:15 Sputum Endotracheal Gram Stain - Final Complete 10/10/16 18:15 Sputum Endotracheal Sputum Culture - Final HEAVY GROWTH NORMAL RESPIRATORY MEL Complete 10/09/16 14:00 Urine Catheterized Urine Urine Culture - Final Betty Albicans Complete Cardiovascular: Regular Lungs: Clear Abdomen: Non-distended, Non-tender Extremities: Other (minimal generalized edema ) A/P Assessment and Plan 75 year old male s/p CABG; failed extubation three times this admission; with VDRF in need of trach placement -Plan for trach placement tomorrow at bedside at 12:30 -Obtain consents -Have supplies at bedside -NPO after MN -Hold anticoagulation Attending Statement patient seen and examined trach planning this afternoon at bedside Attestation The exam, history, and the medical decision-making described in the above note were completed with the assistance of the mid-level provider. I reviewed and agree with the findings presented. I attest that I had a [id number] encounter with the patient on the same day, and personally performed and documented my assessment and findings in the medical record. Herlinda Rivera Oct 12, 2016 11:25 Alvin Souza MD Oct 16, 2016 18:36
[2016-10-12] MEDS: LACOSAMIDE INJ 200 MG in SODIUM CHLORIDE 0.9% INJ 100 ML IV SCH (12:29)
--- NOTE | 2016-10-12 13:01 | HHI.PR ---
Subjective Remarks Intubated and on a ventilator , with FIo2 at 45 %. Chest X Ray is better Had seizure activity 2 days ago. Now on anti seizure meds. Off sedation. Remains Lethargic today, but tolerating CPAP. Objective Vital Signs Date Time Temp Pulse Resp B/P (MAP) Pulse Ox O2 Delivery O2 Flow Rate FiO2 10/12/16 11:00 89 10/12/16 11:00 97 Mechanical Ventilator 45 10/12/16 11:00 100.2 89 28 129/76 (93) 97 10/12/16 11:00 45 10/12/16 07:15 97 45 10/12/16 07:00 45 10/12/16 07:00 97 Mechanical Ventilator 45 10/12/16 07:00 88 10/12/16 07:00 99.8 89 18 141/82 (101) 97 10/12/16 03:49 97 45 10/12/16 03:00 Mechanical Ventilator 45 10/12/16 03:00 98.4 91 22 138/78 (98) 97 10/12/16 03:00 45 10/12/16 03:00 92 10/12/16 00:37 97 45 10/11/16 23:00 Mechanical Ventilator 45 10/11/16 23:00 92 10/11/16 23:00 45 10/11/16 23:00 99.4 87 22 140/83 (102) 97 10/11/16 21:50 97 45 10/11/16 19:00 90 10/11/16 19:00 Mechanical Ventilator 45 10/11/16 19:00 98.6 93 25 147/82 (103) 99 10/11/16 19:00 45 10/11/16 18:34 40 10/11/16 18:10 96 45 10/11/16 18:07 50 10/11/16 16:29 40 10/11/16 16:15 95 45 10/11/16 15:13 97 Mechanical Ventilator 45 10/11/16 15:12 45 10/11/16 15:07 88 10/11/16 15:07 99.0 88 20 133/74 (93) 97 I/O 10/11/16 10/11/16 10/11/16 10/12/16 10/12/16 10/12/16 06:59 14:59 22:59 06:59 14:59 22:59 Intake Total 1720 ml 369 ml 1076 ml 374 ml Output Total 1050 ml 1335 ml 1300 ml Balance 670 ml 369 ml -259 ml -926 ml IV Total 520 ml 369 ml 155 ml 374 ml Tube Feeding 600 ml 421 ml Other 600 ml 500 ml Output Urine Total 800 ml 1185 ml 1300 ml Stool Total 250 ml 150 ml Bladder Scan Volume Amount 25 ml 25 ml 25 ml Result Diagram: 10/12/16 0350 10/11/16 1100 Objective Remarks GENERAL: This moderately overweight elderly man ,Intubated on the vent. HEENT: Head is normocephalic. Pupils are reactive. Tongue is moist. Throat clear NECK: No venous distention. No thyroid enlargement. CHEST: Equal movements with diminished breath sounds at the bases with Occ basal crackles. HEART: Sounds are irregular S1-S2. No murmur. ABDOMEN: Soft. Protuberant without masses. No organomegaly. EXTREMITIES: Decreased pulses. No Edema SKIN: warm. Neuro : lethargic.Moves arm and feet. Assessment and Plan Assessment and Plan IMPRESSION 1. Acute respiratory failure.Resolving 2. Fluid overload status with pulmonary edema. 3. Acute kidney failure.Resolving 4. History of cerebrovascular accident. 5. Bibasilar atelectasis with possible pneumonia. 6. History of colon cancer and bladder cancer. 7. Possible Hypersensitivity Pneumonia or Edema Plan : 1. CPAP today for up to 10 hrs FIO2 40 % 2. Place on A/C rate 12 at night. 3. Nebs qid ,Duoneb. 4. Trach tomorrow. 5. Antibiotics per ID 6. Cont Keppra/Dilantin 7. Cont solumedrol IV 30 mg daily. 8. CBC,BMP in am Jaime Encinas MD Oct 12, 2016 13:01
--- NOTE | 2016-10-12 13:37 | PD.CARD.PN ---
Subjective Subjective Remarks No acute changes overnight. Resumed diuresis yesterday. Eliquis on hold for tracheostomy and PEG placement tomorrow. (Elin Kwok) Objective Medications Current Medications Medications (Trade) Dose Ordered Sig/Awilda Route Start Time Stop Time Status Last Admin (NS Flush) 2 ml UNSCH PRN IV FLUSH 09/09/16 00:45 10/11/16 05:19 (NS Flush) 2 ml BID IV FLUSH 09/09/16 09:00 10/12/16 09:14 (Narcan Inj) 0.4 mg UNSCH PRN IV 09/09/16 00:45 (Pill Splitter) 1 ea UNSCH PRN OTHER 09/09/16 14:00 (Eliquis) 5 mg BID PO 09/10/16 09:00 Future Hold 10/11/16 20:59 (Catapres) 0.1 mg Q6H PRN PO 09/11/16 14:30 09/19/16 23:02 (Lopressor Inj) 5 mg Q2HR PRN IV PUSH 09/16/16 14:00 10/10/16 00:40 (Apresoline Inj) 10 mg Q6HR PRN IV PUSH 09/16/16 12:45 10/07/16 10:46 (Racepinephrine 2.25% Neb) 0.5 ml Q1HR NEB PRN NEB 09/17/16 17:15 09/17/16 18:02 (Dulcolax Supp) 10 mg DAILY PRN RECTAL 09/19/16 13:30 (Albuterol Neb) 2.5 mg Q2HR NEB PRN NEB 09/21/16 12:00 10/02/16 21:16 (Phoslo) 667 mg TID PO 09/21/16 18:00 10/12/16 12:29 (Peridex 0.12% Liq) 15 ml BID@08,20 MT 09/22/16 20:00 10/12/16 09:13 (Ecotrin Ec) 81 mg DAILY PO 09/30/16 09:00 Future hold 10/11/16 08:17 (Trandate) 100 mg TID PO 09/30/16 13:00 10/12/16 12:29 (NovoLOG SUPPLEMENTAL SCALE) 1 Q6HR SQ 10/01/16 13:15 10/10/16 18:04 (D50w (Vial) Inj) 50 ml UNSCH PRN IV PUSH 10/01/16 13:15 (Glucagon Inj) 1 mg UNSCH PRN OTHER 10/01/16 13:15 (Lasix Inj) 40 mg UNSCH IV 10/02/16 09:30 10/11/16 13:29 (Tears Naturale Opth Soln) 1 drop Q8HR EACH EYE 10/03/16 14:00 10/12/16 05:38 (Colace Liq) 100 mg Q12HR NG 10/04/16 09:00 10/12/16 09:12 (Senna Liq) 8.8 mg BID NG 10/04/16 09:00 10/12/16 09:12 (NS Flush) DAILY IVF 10/04/16 12:45 10/11/16 08:19 (NS Flush) UNSCH PRN IVF 10/04/16 12:45 (Miralax) 17 gm BID NG 10/05/16 09:00 10/12/16 09:12 (Peridex 0.12% Liq) 15 ml BID@08,20 MT 10/07/16 08:00 10/11/16 20:57 (Reglan Inj) 5 mg Q8HR IV PUSH 10/07/16 08:00 10/12/16 05:37 (Trandate Inj) 10 mg Q1HR PRN IV PUSH 10/07/16 13:00 10/12/16 04:09 (Nitroglycerin 2% Oint) 2 inch Q6HR PRN TOPICAL 10/07/16 13:00 (Cerebyx Inj) 100 mgpe Q8HR IV 10/08/16 06:00 10/12/16 05:22 (Carafate Liq) 1 gm Q6HR NG 10/08/16 12:00 10/12/16 12:29 Lacosamide 200 mg/ Sodium Chloride 120 ml @ 110 mls/hr Q12H IV 10/09/16 00:00 10/12/16 12:29 (Free Water) 200 ml Q4HR G-TUBE 10/09/16 08:00 10/12/16 12:00 Levetriacetam 100 ml @ 400 mls/hr Q12HR IV 10/09/16 09:00 10/12/16 09:11 Levetriacetam 500 mg/Sodium Chloride 105 ml @ 420 mls/hr Q12HR IV 10/10/16 09:00 10/12/16 09:12 Midazolam HCl 100 ml @ 2 mls/hr TITRATE PRN IV 10/10/16 06:30 10/10/16 06:25 (Lasix Inj) 40 mg DAILY IV PUSH 10/12/16 09:00 10/12/16 09:12 (SoluMEDROL INJ) 30 mg DAILY IV PUSH 10/12/16 09:00 10/12/16 09:12 Miscellaneous Information Hold Anticoagulation after midni... ONCE ONCE OTHER 10/12/16 08:30 10/12/16 08:31 UNV Vital Signs / I&O Vital Signs Date Time Temp Pulse Resp B/P (MAP) Pulse Ox O2 Delivery O2 Flow Rate FiO2 10/12/16 11:00 89 10/12/16 11:00 97 Mechanical Ventilator 45 10/12/16 11:00 100.2 89 28 129/76 (93) 97 10/12/16 11:00 45 10/12/16 07:15 97 45 10/12/16 07:00 45 10/12/16 07:00 97 Mechanical Ventilator 45 10/12/16 07:00 88 10/12/16 07:00 99.8 89 18 141/82 (101) 97 10/12/16 03:49 97 45 10/12/16 03:00 Mechanical Ventilator 45 10/12/16 03:00 98.4 91 22 138/78 (98) 97 10/12/16 03:00 45 10/12/16 03:00 92 10/12/16 00:37 97 45 10/11/16 23:00 Mechanical Ventilator 45 10/11/16 23:00 92 10/11/16 23:00 45 10/11/16 23:00 99.4 87 22 140/83 (102) 97 10/11/16 21:50 97 45 10/11/16 19:00 90 10/11/16 19:00 Mechanical Ventilator 45 10/11/16 19:00 98.6 93 25 147/82 (103) 99 10/11/16 19:00 45 10/11/16 18:34 40 10/11/16 18:10 96 45 10/11/16 18:07 50 10/11/16 16:29 40 10/11/16 16:15 95 45 10/11/16 15:13 97 Mechanical Ventilator 45 10/11/16 15:12 45 10/11/16 15:07 88 10/11/16 15:07 99.0 88 20 133/74 (93) 97 I/O 10/11/16 10/11/16 10/11/16 10/12/16 10/12/16 10/12/16 07:00 15:00 23:00 07:00 15:00 23:00 Intake Total 1720 ml 369 ml 1076 ml 374 ml Output Total 1050 ml 1335 ml 1300 ml Balance 670 ml 369 ml -259 ml -926 ml IV Total 520 ml 369 ml 155 ml 374 ml Tube Feeding 600 ml 421 ml Other 600 ml 500 ml Output Urine Total 800 ml 1185 ml 1300 ml Stool Total 250 ml 150 ml Bladder Scan Volume Amount 25 ml 25 ml 25 ml Physical Exam GENERAL: Elderly male, intubated. SKIN: Warm and dry. HEAD: Normocephalic. EYES: No scleral icterus. No injection or drainage. NECK: Supple, trachea midline CARDIOVASCULAR: Midline incision healing well, reg rate and rhythm RESPIRATORY: Intubated GASTROINTESTINAL: Abdomen soft,nondistended. MUSCULOSKELETAL: No cyanosis, pedal edema BACK: Nontender without obvious deformity. Laboratory Laboratory Tests Test 10/12/16 03:50 White Blood Count 17.1 TH/MM3 Red Blood Count 2.77 MIL/MM3 Hemoglobin 8.4 GM/DL Hematocrit 25.8 % Mean Corpuscular Volume 92.9 FL Mean Corpuscular Hemoglobin 30.1 PG Mean Corpuscular Hemoglobin Concent 32.4 % Red Cell Distribution Width 17.0 % Platelet Count 162 TH/MM3 Mean Platelet Volume 8.5 FL Neutrophils (%) (Auto) 74.9 % Lymphocytes (%) (Auto) 8.8 % Monocytes (%) (Auto) 7.8 % Eosinophils (%) (Auto) 8.1 % Basophils (%) (Auto) 0.4 % Neutrophils # (Auto) 12.8 TH/MM3 Lymphocytes # (Auto) 1.5 TH/MM3 Monocytes # (Auto) 1.3 TH/MM3 Eosinophils # (Auto) 1.4 TH/MM3 Basophils # (Auto) 0.1 TH/MM3 CBC Comment DIFF FINAL Differential Comment Imaging Last 72 hours Impressions Chest X-Ray 10/11/16 0600 Signed Impressions: Service Date/Time: Tuesday, October 11, 2016 05:05 - CONCLUSION: No significant change. Jarad Aleman MD Chest X-Ray 10/11/16 0000 Signed Impressions: Service Date/Time: Tuesday, October 11, 2016 10:42 - CONCLUSION: No significant change has occurred. Ajay Prabhakar MD Chest X-Ray 10/10/16 0600 Signed Impressions: Service Date/Time: Monday, October 10, 2016 04:25 - CONCLUSION: 1. Support apparatus in satisfactory position. Patchy airspace and interstitial changes similar to October 09. Amado Crain MD (Elin Kwok) Assessment and Plan Problem List: (1) History of CVA (cerebrovascular accident) ICD Codes: Z86.73 - Personal history of transient ischemic attack (TIA), and cerebral infarction without residual deficits Status: Acute (2) CKD (chronic kidney disease) stage 3, GFR 30-59 ml/min ICD Codes: N18.3 - Chronic kidney disease, stage 3 (moderate) Status: Acute (3) S/P CABG x 3 ICD Codes: Z95.1 - Presence of aortocoronary bypass graft Status: Acute (4) Atrial fibrillation ICD Codes: I48.91 - Unspecified atrial fibrillation (5) Acute hypoxemic respiratory failure ICD Codes: J96.01 - Acute respiratory failure with hypoxia Status: Acute (6) Hypertension ICD Codes: I10 - Essential (primary) hypertension Status: Acute (7) Thoracic aortic aneurysm without rupture ICD Codes: I71.2 - Thoracic aortic aneurysm, without rupture Status: Acute Assessment and Plan PLAN: Continue labetalol. Eliquis on hold for trach and peg tomorrow Weaning high dose steroids Continue Lasix and monitor renal/electrolytes SBP goal < 130 DBP goal < 90. The patient was seen and evaluated by Dr. Moran who completed a [id number] encounter, completed a physical exam and participated in evaluation and management. (Elin Kwok) Assessment and Plan The exam, history, and the medical decision-making described in the above note were completed with the assistance of the mid-level provider. I reviewed and agree with the findings presented. Better with trach. (Suellen Moran MD) Elin Kwok Oct 12, 2016 13:36 Suellen Moran MD Oct 13, 2016 14:48
--- NOTE | 2016-10-12 15:47 | PD.CAR.PN ---
CVT Progress Note Subjective/Hospital Course: 10/01 remains on high flow 02 poor reserve, continue diuresis , antibiotics/ OOB as tolerated 10/02/16 continues on high flow O2 No c/o 10/04 pt reintubated yesterday , 2/ resp distress now sedated on vent, on 40% fio2 renal function stable, non-oliguric 10/05 pt remains intubated 3rd time on 40% FI02 CT chest : groundglass appearance bilateral infiltrates bullous emphysema, interstitial edema / Dr Encinas spoke with Dr Zamora regarding possible open lung bx: RE ? 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 Meropenem, linezolid and famotidine all discontinued. Loaded with Keppra and scheduled 500 mg IV twice a day. Neurology consult for management of antiepileptics. MRI brain pending is also agreeable for tracheostomy placement remains on vent, not tolerating tube feeding 10/[address] Jeffries , pt on sedation vacation opened eyes, wiggled both feet , left sided weakness moved right arm , very weak MRI brain , no new infarct 10/12 pt remains on vent , will open eyes track, very weak on antiepileptic meds for bedside trach in am Objective: GENERAL: pt off sedation, very weak orally intubated SKIN: Warm and dry. HEAD: Normocephalic. EYES: No scleral icterus. No injection or drainage. NECK: Supple, trachea midline. No JVD or lymphadenopathy. CARDIOVASCULAR: Regular rate and rhythm without murmurs, gallops, or rubs. RESPIRATORY: coarse bilateral breath sounds Breath sounds equal bilaterally. No accessory muscle use. GASTROINTESTINAL: Abdomen soft, non-tender, nondistended. MUSCULOSKELETAL: No cyanosis, or edema. BACK: Nontender without obvious deformity. No CVA tenderness. Vital Signs Date Time Temp Pulse Resp B/P (MAP) Pulse Ox O2 Delivery O2 Flow Rate FiO2 10/12/16 15:00 97 Mechanical Ventilator 40 10/12/16 15:00 99.6 79 22 111/71 (84) 97 10/12/16 15:00 40 10/12/16 15:00 79 10/12/16 11:00 89 10/12/16 11:00 97 Mechanical Ventilator 45 10/12/16 11:00 100.2 89 28 129/76 (93) 97 10/12/16 11:00 45 10/12/16 07:15 97 45 10/12/16 07:00 45 10/12/16 07:00 97 Mechanical Ventilator 45 10/12/16 07:00 88 10/12/16 07:00 99.8 89 18 141/82 (101) 97 10/12/16 03:49 97 45 10/12/16 03:00 Mechanical Ventilator 45 10/12/16 03:00 98.4 91 22 138/78 (98) 97 10/12/16 03:00 45 10/12/16 03:00 92 10/12/16 00:37 97 45 10/11/16 23:00 Mechanical Ventilator 45 10/11/16 23:00 92 10/11/16 23:00 45 10/11/16 23:00 99.4 87 22 140/83 (102) 97 10/11/16 21:50 97 45 10/11/16 19:00 90 10/11/16 19:00 Mechanical Ventilator 45 10/11/16 19:00 98.6 93 25 147/82 (103) 99 10/11/16 19:00 45 10/11/16 18:34 40 10/11/16 18:10 96 45 10/11/16 18:07 50 10/11/16 16:29 40 10/11/16 16:15 95 45 Labs: Laboratory Tests Test 10/12/16 03:50 White Blood Count 17.1 TH/MM3 (4.0-11.0) Red Blood Count 2.77 MIL/MM3 (4.50-5.90) Hemoglobin 8.4 GM/DL (13.0-17.0) Hematocrit 25.8 % (39.0-51.0) Mean Corpuscular Volume 92.9 FL (80.0-100.0) Mean Corpuscular Hemoglobin 30.1 PG (27.0-34.0) Mean Corpuscular Hemoglobin Concent 32.4 % (32.0-36.0) Red Cell Distribution Width 17.0 % (11.6-17.2) Platelet Count 162 TH/MM3 (150-450) Mean Platelet Volume 8.5 FL (7.0-11.0) Neutrophils (%) (Auto) 74.9 % (16.0-70.0) Lymphocytes (%) (Auto) 8.8 % (9.0-44.0) Monocytes (%) (Auto) 7.8 % (0.0-8.0) Eosinophils (%) (Auto) 8.1 % (0.0-4.0) Basophils (%) (Auto) 0.4 % (0.0-2.0) Neutrophils # (Auto) 12.8 TH/MM3 (1.8-7.7) Lymphocytes # (Auto) 1.5 TH/MM3 (1.0-4.8) Monocytes # (Auto) 1.3 TH/MM3 (0-0.9) Eosinophils # (Auto) 1.4 TH/MM3 (0-0.4) Basophils # (Auto) 0.1 TH/MM3 (0-0.2) CBC Comment DIFF FINAL Differential Comment Result Diagram: 10/12/16 0350 10/11/16 1100 (1) History of CVA (cerebrovascular accident) Plan: new onset of seizures, Neuro following on antiepileptic meds (2) CKD (chronic kidney disease) stage 3, GFR 30-59 ml/min Plan: stable indices (3) S/P CABG x 3 (4) Atrial fibrillation Plan: rate controlled, on eliquis ( will need to be held prior to trach ) (5) Acute hypoxemic respiratory failure Plan: on vent, CCM following possible trach in am continue supportive care (6) Hypertension (7) Thoracic aortic aneurysm without rupture Casandra Barton Oct 12, 2016 15:47
--- NOTE | 2016-10-12 16:55 | HHI.IDPN ---
Subjective Subjective Remarks ID Xcover for Dr Darren carrero to have low grade fever No sz x 2 days Failed further weaning , for trach tomorrow grew C albicans from urine Antibiotics none Past Medical History PAST MEDICAL HISTORY 1. Coronary artery disease. 2. History of atrial fibrillation. 3. History of aortic aneurysm. 4. Bladder cancer treated with cystectomy. 5. Coronary artery bypass graft surgery. 6. Colon cancer history. 7. Peripheral vascular disease. 8. Hypertension. 9. History of transurethral resection of bladder tumor. 10.History of abdominal aortic aneurysm repair. Allergies: Coded Allergies: atorvastatin (Verified Allergy, Severe, back pain and chest pain, 09/21/16) PATIENT REPORTS HE CAN NOT TAKE ANY STATINS PERIOD. HE LOSES USE OF HIS LEGS pantoprazole (Verified Allergy, Severe, INTERSTITIAL NEPHRITIS, 09/25/16) pravastatin (Verified Allergy, Severe, 09/21/16) PATIENT REPORTS HE CAN NOT TAKE ANY STATINS PERIOD. HE LOSES USE OF HIS LEGS simvastatin (Verified Allergy, Severe, body aches, 09/21/16) PATIENT REPORTS HE CAN NOT TAKE ANY STATINS PERIOD. HE LOSES USE OF HIS LEGS Objective . Vital Signs Date Time Temp Pulse Resp B/P (MAP) Pulse Ox O2 Delivery O2 Flow Rate FiO2 10/12/16 15:00 97 Mechanical Ventilator 40 10/12/16 15:00 99.6 79 22 111/71 (84) 97 10/12/16 15:00 40 10/12/16 15:00 79 10/12/16 11:00 89 10/12/16 11:00 97 Mechanical Ventilator 45 10/12/16 11:00 100.2 89 28 129/76 (93) 97 10/12/16 11:00 45 10/12/16 07:15 97 45 10/12/16 07:00 45 10/12/16 07:00 97 Mechanical Ventilator 45 10/12/16 07:00 88 10/12/16 07:00 99.8 89 18 141/82 (101) 97 10/12/16 03:49 97 45 10/12/16 03:00 Mechanical Ventilator 45 10/12/16 03:00 98.4 91 22 138/78 (98) 97 10/12/16 03:00 45 10/12/16 03:00 92 10/12/16 00:37 97 45 10/11/16 23:00 Mechanical Ventilator 45 10/11/16 23:00 92 10/11/16 23:00 45 10/11/16 23:00 99.4 87 22 140/83 (102) 97 10/11/16 21:50 97 45 10/11/16 19:00 90 10/11/16 19:00 Mechanical Ventilator 45 10/11/16 19:00 98.6 93 25 147/82 (103) 99 10/11/16 19:00 45 10/11/16 18:34 40 10/11/16 18:10 96 45 10/11/16 18:07 50 . Laboratory Tests Test 10/11/16 04:43 10/12/16 03:50 White Blood Count 16.9 TH/MM3 17.1 TH/MM3 Red Blood Count 2.68 MIL/MM3 2.77 MIL/MM3 Hemoglobin 8.1 GM/DL 8.4 GM/DL Hematocrit 25.0 % 25.8 % Mean Corpuscular Volume 93.3 FL 92.9 FL Mean Corpuscular Hemoglobin 30.1 PG 30.1 PG Mean Corpuscular Hemoglobin Concent 32.3 % 32.4 % Red Cell Distribution Width 17.1 % 17.0 % Platelet Count 169 TH/MM3 162 TH/MM3 Mean Platelet Volume 8.3 FL 8.5 FL Neutrophils (%) (Auto) 74.3 % 74.9 % Lymphocytes (%) (Auto) 10.1 % 8.8 % Monocytes (%) (Auto) 6.9 % 7.8 % Eosinophils (%) (Auto) 8.4 % 8.1 % Basophils (%) (Auto) 0.3 % 0.4 % Neutrophils # (Auto) 12.5 TH/MM3 12.8 TH/MM3 Lymphocytes # (Auto) 1.7 TH/MM3 1.5 TH/MM3 Monocytes # (Auto) 1.2 TH/MM3 1.3 TH/MM3 Eosinophils # (Auto) 1.4 TH/MM3 1.4 TH/MM3 Basophils # (Auto) 0.0 TH/MM3 0.1 TH/MM3 CBC Comment DIFF FINAL DIFF FINAL Differential Comment Laboratory Tests Test 10/11/16 04:43 10/11/16 11:00 Blood Urea Nitrogen 78 MG/DL 72 MG/DL Creatinine 1.23 MG/DL 1.29 MG/DL Random Glucose 139 MG/DL 133 MG/DL Total Protein 5.3 GM/DL 5.5 GM/DL Albumin 2.1 GM/DL 2.2 GM/DL Calcium Level 8.5 MG/DL 8.4 MG/DL Phosphorus Level 2.6 MG/DL Magnesium Level 2.1 MG/DL 2.1 MG/DL Alkaline Phosphatase 86 U/L 82 U/L Aspartate Amino Transf (AST/SGOT) 35 U/L 39 U/L Alanine Aminotransferase (ALT/SGPT) 25 U/L 27 U/L Total Bilirubin 0.4 MG/DL 0.4 MG/DL Sodium Level 146 MEQ/L 146 MEQ/L Potassium Level 4.2 MEQ/L 4.6 MEQ/L Chloride Level 109 MEQ/L 110 MEQ/L Carbon Dioxide Level 31.1 MEQ/L 29.8 MEQ/L Anion Gap 6 MEQ/L 6 MEQ/L Estimat Glomerular Filtration Rate 57 ML/MIN 54 ML/MIN B-Type Natriuretic Peptide 244 PG/ML Microbiology Date/Time Source Procedure Growth Status 10/10/16 12:08 Blood Peripheral Aerobic Blood Culture - Preliminary NO GROWTH IN 2 DAYS Resulted 10/10/16 12:08 Blood Peripheral Anaerobic Blood Culture - Preliminary NO GROWTH IN 2 DAYS Resulted 10/10/16 12:00 Blood Peripheral Aerobic Blood Culture - Preliminary NO GROWTH IN 2 DAYS Resulted 10/10/16 12:00 Blood Peripheral Anaerobic Blood Culture - Preliminary NO GROWTH IN 2 DAYS Resulted 10/10/16 18:15 Sputum Endotracheal Gram Stain - Final Complete 10/10/16 18:15 Sputum Endotracheal Sputum Culture - Final HEAVY GROWTH NORMAL RESPIRATORY MEL Complete Imaging Last Impressions Chest X-Ray 10/11/16 0600 Signed Impressions: Service Date/Time: Tuesday, October 11, 2016 05:05 - CONCLUSION: No significant change. Jarad Aleman MD Brain MRI 10/07/16 0000 Signed Impressions: Service Date/Time: September 21:45 - CONCLUSION: 1. Residual small areas of infarction seen bilaterally. There are fewer areas of signal abnormality seen on the diffusion-weighted images on the current exam. New areas of infarction are not present. 2. Areas of demyelination throughout the cerebral and pontine white matter likely from small vessel ischemic change. 3. Fluid in the mastoid air cells. Jarad Cat MD Abdomen X-Ray 10/07/16 0000 Signed Impressions: Service Date/Time: September 08:32 - CONCLUSION: Unremarkable bowel gas pattern. Sanya Cavazos MD Neck CT 10/05/16 0000 Signed Impressions: Service Date/Time: Wednesday, October 05, 2016 10:41 - CONCLUSION: Extensive subcutaneous emphysema. Jarad De Jesus MD Chest CT 10/05/16 0000 Signed Impressions: Service Date/Time: Wednesday, October 05, 2016 10:43 - CONCLUSION: Prior median sternotomy cardiac surgery atherosclerotic cardiovascular disease with left ventricular cardiomegaly and evidence of interstitial alveolar edema in both lungs consistent with CHF. Support tubes in place with subcutaneous emphysema in the soft tissues of neck bilaterally and supraclavicular. There is no evidence of pneumothorax. Lele Escudero MD Head Magnetic Resonance Angiography 09/10/16 1028 Signed Impressions: Service Date/Time: Saturday, September 10, 2016 10:57 - CONCLUSION: 1. Unremarkable MRA examination without evidence for large vessel occlusion, aneurysm, or vascular malformation. Richardson Haney MD Carotid Artery Ultrasound 09/09/16 1028 Signed Impressions: Service Date/Time: September 10:43 - CONCLUSION: 1. Moderate visible plaque without hemodynamically significant stenosis identified. No significant change from August 25. Amado Crain MD Renal Ultrasound 09/09/16 0000 Signed Impressions: Service Date/Time: September 15:41 - CONCLUSION: 1. Cortical atrophy with small bilateral renal cysts. No hydronephrosis. Amado Crain MD Head CT 09/08/16 2251 Signed Impressions: Service Date/Time: Thursday, September 08, 2016 23:41 - CONCLUSION: Stable noncontrast CT with no evidence of hemorrhage or acute infarction. Atrophy and chronic small vessel splenic changes remain. Sanya Cavazos MD Physical Exam CONSTITUTIONAL/GENERAL: This is an adequately nourished patient, in no apparent distress. Intubated, on vent TUBES/LINES/DRAINS: SKIN: No jaundice, rashes, or lesions. ENT: Orally intubated =CARDIOVASCULAR: Regular rate and rhythm without murmurs, gallops, or rubs. No JVD. Peripheral pulses symmetric. RESPIRATORY/CHEST: Symmetric, unlabored respirations. Coarse BS to auscultation. . GASTROINTESTINAL: Abdomen soft, non-tender, nondistended. No hepato-splenomegaly , or palpable masses. No guarding. Bowel sounds present. GENITOURINARY: Without palpable bladder distension. MUSCULOSKELETAL: Extremities without clubbing, cyanosis, or edema. NEUROLOGICAL:awake , eye opned, trying to communicate with the PSYCHIATRIC: unable to assess Assessment & Plan Remarks 1. Acute respiratory failure. 3rd intubation. - scheduled for trach 2. Bilateral lung infiltrates, - negative cultures. Pulmonary thinks amiodarone toxicity. 3. Leukocytosis. WBC improving. 4. Acute kidney disease. imrpving creatininen Persistent low grade fever, ? post ictal Candiduria with indwelling choi: doubt clin significance Sz, post ictal status RECOMMENDATIONS fu clinically no abx at this point further rec's to follow per clx reports and clin progress dw RN dw @ b/s Christina Parsons MD Oct 12, 2016 16:55
[2016-10-13] VITALS (12 sets, daily range): BP systolic 111–153; BP diastolic 70–95; PULSE 82–89; RESP 16–21; TEMP 98.6–100.1; O2SAT 95–100
[2016-10-13] MEDS: SUCRALFATE 1 GM/10 ML CUP NG SCH ×4 (00:38→17:10)
[2016-10-13] MEDS: METOCLOPRAMIDE HCL 10 MG/2 ML VIAL IV PUSH SCH ×4 (00:39→22:10)
[2016-10-13] MEDS: LACOSAMIDE INJ 200 MG in SODIUM CHLORIDE 0.9% INJ 100 ML IV SCH ×2 (00:39→16:52)
[2016-10-13] MEDS: FOSPHENYTOIN SODIUM 100 MG PE/2 ML VIAL IV SCH ×4 (00:40→22:11)
[2016-10-13] MEDS: ARTIFICIAL TEARS OPTH SOLN 15 ML BTL EACH EYE SCH ×4 (00:40→22:11)
[2016-10-13] MEDS: INSULIN ASPART SUPPLEMENTAL SCALE SQ SCH ×4 (01:00→17:40)
[2016-10-13] MEDS: FREE WATER G-TUBE SCH ×6 (04:00→20:00)
[2016-10-13 05:09] LABS: AUTOMATED NEUTROPHIL # 10.5 TH/MM3 (1.8-7.7); BASOPHIL # 0.1 TH/MM3 (0-0.2); BASOPHIL % 0.6 % (0.0-2.0); EOSINOPHIL # 1.1 TH/MM3 (0-0.4); EOSINOPHIL % 7.9 % (0.0-4.0); HEMATOCRIT 23.2 % (39.0-51.0); HEMO FLAGS DIFF FINAL; LYMPH % 10.5 % (9.0-44.0); LYMPHOCYTE # 1.5 TH/MM3 (1.0-4.8); MEAN CELL VOLUME 93.5 FL (80.0-100.0); MEAN CORPUSCULAR HEMOGLOBIN 30.3 PG (27.0-34.0); MEAN CORPUSCULAR HGB CONC 32.4 % (32.0-36.0); MONO % 7.7 % (0.0-8.0); NEUT % 73.3 % (16.0-70.0); PLATELET COUNT 137 TH/MM3 (150-450); RED BLOOD COUNT 2.48 MIL/MM3 (4.50-5.90); RED CELL DISTRIBUTION WIDTH 17.6 % (11.6-17.2); WHITE BLOOD COUNT 14.3 TH/MM3 (4.0-11.0)
[2016-10-13 05:43] LABS: ALKALINE PHOSPHATASE 63 U/L (45-117); ALT (GPT) 23 U/L (12-78); ANION GAP 8 MEQ/L (5-15); AST (GOT) 29 U/L (15-37); BICARBONATE 30.4 MEQ/L (21.0-32.0); BLOOD UREA NITROGEN 61 MG/DL (7-18); CHLORIDE 107 MEQ/L (98-107); GLOMERULAR FILTRATION RATE 45 ML/MIN (>89); SODIUM (NA) 145 MEQ/L (136-145); TOTAL BILIRUBIN ADULT 0.4 MG/DL (0.2-1.0)
--- NOTE | 2016-10-13 07:10 | HHI.CCPN ---
Subjective Remarks/Hospital Course 75 y/o man now about 4 weeks following CABG complicated by CVA. Presented back 08/28 with new onset right arm weakness. Hospital course has been complicated by CKD and fluid overload. We have attempted BiPAP for several hours but he remains in distress and although oxygenation is acceptable work of breathing is excessive. Worrisome increasing metabolic acidosis. 09/17: Gas exchange much improved. BNP 1681, ScVO2 71%. It appears that cardiac output is more than adequate for peripheral needs and the primary pathology is renal failure and fluid overload. If we can manage volume I can probably get him extubated. 09/18: Diffuse crackles. Needs to be diuresed today. Tolerating extubation but at risk for hypoxemic failure again. 09/20 - Re consulted due to worsening hypoxia. Currently on nonrebreather mask. Chest x-ray shows worsening consolidation right lobe creatinine slightly improved over. Family request transfer to [facility] [place] however refused. We'll attempt to decipher status currently unknown. 09/21: Remains on nonrebreather mask. Saturations between 89-97%. Chest x-ray unchanged. Not tachypnea. Not confused. 09/22: Radiographic studies show diffuse interstitial process with skip areas - more indicative of infectious/inflammatory process. Sats 85% with labored pattern. Required intubation for deteriorating respiratory status. 09/23: Gas exchange improving. Pulmonary infiltrates remain very concerning - if most recent sputum is benign I would not be opposed to steroids. 09/24: Extubated today. On 3 L nasal cannula. Passed swallow evaluation. Appropriate interactive status post extubation. 09/29: Critical care reconsult requested by Dr. Meza for respiratory failure. Patient reportedly was on BiPAP this morning. He was given additional diuretic earlier as he was short of breath. With this he seems to have improved somewhat and has been on a nonrebreather facemask for more than a few hours. He states that he is breathing much better. Patient being adamant about not using BiPAP. I had a detailed conversation about the importance of using BiPAP especially at night in view of his history of sleep apnea. Patient did not appear to be in acute distress though he was requiring a nonrebreather facemask at the time of my evaluation. No urgent need for BiPAP or intubation at this time. In fact patient is stating that he is breathing much better than this morning. 09/30: Remains on nonrebreather facemask. Refused BiPAP at night. States that he is breathing better today than yesterday. 10/01: 02 30 L/m 100% FiO2. O2 sats borderline. Episodes of confusion. When I evaluated the patient he was sitting up in bed and was able to converse. Not using accessory muscles of respirations currently. 10/02: The patient is alert and oriented currently has been weaned down to high flow nasal cannula with an FiO2 of 65%, maintaining O2 saturation to 95%. Patient is appropriately conversant no episodes of confusion noted. 10/03: Yesterday, the patient received 2 units of packed red blood cells with Furosemide dosing in between transfusion of units, with diuresis of approximately 2900 cc. Last night, the patient was noted to have respiratory decompensation, continued refusal to utilize BiPAP during the night. FiO2 requirements increased to 100% this a.m., on high flow nasal cannula, with noted accessory muscle use and inability to speak in complete sentences secondary to dyspnea. The patient received additional dose of Lasix this a.m. , chest x-ray appeared to be worsened this a.m. .Patient subsequently became hypoxic requiring emergent intubation this a.m.., O2 sat saturation 80s on 100 % FiO2. 10/04: Intubated yesterday due to general and hypoxia. Diuresed with 80 mg furosemide 1. Tmax 99.8. Currently 97.8. Tube feeds initiated. No bowel movement. 10/05: Afebrile. Subcutaneous air in neck bilaterally on chest x-ray today. No obvious pneumothorax. No pneumothorax on chest x-ray yesterday post central line placement. Tolerating tube feeding. No bowel movement. 10/06: Currently resting in bed. Subcutaneous air neck much improved. X-ray improved. FiO2 down to 40%. Tolerating tube feeding. One bowel movement. 10/07: Afebrile. Currently on propofol drip at 40 mg/kg per minute. X-ray has improved. Currently not tolerating tube feeds. 2 bowel movements documented. Sedation vacation today ordered. 10/08: Afebrile. Saturations 95% on FiO2 50%. MRI brain showed no acute findings last night. EEG repeated for today. PLEDs on previous EEG. Vimpat along with fosphenytoin added per neurology. Arousable on the ventilator. Tube feeds to be resumed today. Discussed with at length yesterday 10/09: MAXIMUM TEMPERATURE 99.5. Currently 99.3. Tube feeds currently at 20 cc an hour. Minimal residuals. Arousable and intermittently follows commands mostly with right upper extremity. 10/10: Febrile. Tube feeds currently at 25 cc an hour. Minimal residuals. Positive BM. Not arousable this AM. EEG still reveals underlying sharp spikes. Vimpat increased yesterday. Subjective: 10/11: Remains intubated tachypneic on CPAP 11/11, Lethargic not consistently following commands. After being placed on 06/11 patient is more tachypneic, breathing in mid 30s 10/12: Remains intubated off sedation. Very lethargic, copious oral secretions and moderate ET tube secretions. We'll discuss with general surgery regarding tracheostomy today. 10/11/16 did not show seizure activity but moderate encephalopathy 10/13: Remains off sedation quite lethargic. We except to sternal rub. We believe follows commands on right upper and bilateral lower extremities. Low- grade fever. Tracheostomy planned for afternoon Objective Vital Signs Date Time Temp Pulse Resp B/P (MAP) Pulse Ox O2 Delivery O2 Flow Rate FiO2 10/13/16 03:57 95 50 10/13/16 03:00 Mechanical Ventilator 10/13/16 03:00 100.1 86 19 127/75 (92) Intake and Output 10/13/16 10/13/16 10/14/16 08:00 16:00 00:00 Intake Total 1350 ml Output Total 750 ml Balance 600 ml Result Diagram: 10/13/16 0425 10/13/16 0425 Other Results Microbiology Date/Time Source Procedure Growth Status 10/10/16 18:15 Sputum Endotracheal Gram Stain - Final Complete 10/10/16 18:15 Sputum Endotracheal Sputum Culture - Final HEAVY GROWTH NORMAL RESPIRATORY MEL Complete Imaging Last Impressions Chest X-Ray 10/10/16 0600 Signed Impressions: Service Date/Time: Monday, October 10, 2016 04:25 - CONCLUSION: 1. Support apparatus in satisfactory position. Patchy airspace and interstitial changes similar to October 09. Amado Crain MD Brain MRI 10/07/16 0000 Signed Impressions: Service Date/Time: September 21:45 - CONCLUSION: 1. Residual small areas of infarction seen bilaterally. There are fewer areas of signal abnormality seen on the diffusion-weighted images on the current exam. New areas of infarction are not present. 2. Areas of demyelination throughout the cerebral and pontine white matter likely from small vessel ischemic change. 3. Fluid in the mastoid air cells. Jarad Cat MD Abdomen X-Ray 10/07/16 0000 Signed Impressions: Service Date/Time: September 08:32 - CONCLUSION: Unremarkable bowel gas pattern. Sanya Cavazos MD Neck CT 10/05/16 0000 Signed Impressions: Service Date/Time: Wednesday, October 05, 2016 10:41 - CONCLUSION: Extensive subcutaneous emphysema. Jarad De Jesus MD Chest CT 10/05/16 0000 Signed Impressions: Service Date/Time: Wednesday, October 05, 2016 10:43 - CONCLUSION: Prior median sternotomy cardiac surgery atherosclerotic cardiovascular disease with left ventricular cardiomegaly and evidence of interstitial alveolar edema in both lungs consistent with CHF. Support tubes in place with subcutaneous emphysema in the soft tissues of neck bilaterally and supraclavicular. There is no evidence of pneumothorax. Lele Escudero MD Head Magnetic Resonance Angiography 09/10/16 1028 Signed Impressions: Service Date/Time: Saturday, September 10, 2016 10:57 - CONCLUSION: 1. Unremarkable MRA examination without evidence for large vessel occlusion, aneurysm, or vascular malformation. Richardson Haney MD Carotid Artery Ultrasound 09/09/16 1028 Signed Impressions: Service Date/Time: September 10:43 - CONCLUSION: 1. Moderate visible plaque without hemodynamically significant stenosis identified. No significant change from August 25. Amado Crain MD Renal Ultrasound 09/09/16 0000 Signed Impressions: Service Date/Time: September 15:41 - CONCLUSION: 1. Cortical atrophy with small bilateral renal cysts. No hydronephrosis. Amado Crain MD Head CT 09/08/16 034 Signed Impressions: Service Date/Time: Thursday, September 08, 2016 23:41 - CONCLUSION: Stable noncontrast CT with no evidence of hemorrhage or acute infarction. Atrophy and chronic small vessel splenic changes remain. Sanya Cavazos MD Objective Remarks GENERAL: 75-year-old male currently orotracheally intubated and critically ill SKIN: Warm and dry. Well perfused HEAD: Atraumatic. Normocephalic. ENT: Orotracheally intubated moderate ET tube secretions NECK: Trachea midline. No thyromegaly. No neck crepitus. Right IJ is clean dry and intact. CARDIOVASCULAR: IRR. S1, S2 no S4. Without murmur RESPIRATORY: Air entry decreased bilaterally at bases, scattered rhonchi. GASTROINTESTINAL: Abdomen soft, non-tender, nondistended. No guarding. BS active. MUSCULOSKELETAL: Extremities with trace to 1+ B/L lower extremity edema. No obvious deformities. NEUROLOGICAL: Opens eyes to sternal rub. Withdraws to noxious stimulation all 4 extremities though predominantly right upper, right lower and left lower. Intermittently follows commands in all extremities except LUE. Procedures 10/03- intubation Date of Insertion: Oct 03, 2016 Date of Insertion: Oct 04, 2016 Line: Central Venous Catheter Side: Right Location: Internal, Jugular A/P Assessment and Plan Neuro/Psych: Left occipital, bilateral frontal parietal cerebellar CVA subacute Seizure Chronic headaches Chronic benzodiazepine use, chronic oxycodone use MRI 09/10 brain revealed left occipital, bilateral frontal parietal and cerebellar CVA likely [employer]FI[employer] distribution MRI brain 10/07 - no acute findings. Residual frontal/parietal and occipital junction CVA. Significant demyelination Followed by Dr. Jeffries/neurology. 10/[address] Prajapati in view of episodes of confusion. Nonfocal. EEG 10/07 bilateral PLEDs with episodic sharp activity EEG 10/10: Ongoing seizure activity with lightening sedation -Repeat EEG 10/11/16-no seizure activity, moderate encephalopathy Currently on fosphenytoin at 100 mg IV 3 times a day, levetiracetam 1500 mg IV twice a day and lacosamide 200 mg IV twice a day Dilantin level 10/11/16 9.2 -therapeutic with albumin correction Meropenem, linezolid and famotidine all discontinued Currently on alprazolam 0.25 mg every 6 hours PRN Anxiety Currently off propofol and dexmedetomidine since Tuesday. Versed on Hold CV: Coronary disease status post CABG ASCVD Carotid stenosis TAAA Hypertension Dyslipidemia History atrial fibrillation status post ablation 2011 Followed by cardiology. Currently off atorvastatin 40 mg daily/home medication for dyslipidemia On PO Apixaban 5 mg twice a day per cardiology. aspirin 81 mg by mouth daily. Hold both in anticipation of tracheostomy and PEG placement Off amiodarone for suspected pulmonary toxicity Echocardiogram revealed EF 70%. OHS septal motion./Paradoxical, CARA 50-60 mmHg Currently labetalol 100 mg 3 times a day for hypertension. As needed metoprolol for tachycardia Goal systolic blood pressure less than 130 per cardiology Resp: Acute hypoxemic respiratory failure Subcutaneous air neck - resolved PRVC 18/600/1.2/. Ventilator bundle. Daily SBT Unable to extubate due to severe neuromuscular weakness and encephalopathy and CVA Plan for tracheostomy 10/[address] Souza Albuterol/ipratropium every 6 hours with albuterol aerosols as indicated 3rd intubation. Last 10/03 Chest x-ray 10/08 - improved bilateral subcutaneous neck. No obvious pneumothorax. CT chest ruled out pneumothorax. Likely barotrauma from mechanical ventilation. 10/03 switched Methylprednisolone currently on 40 mg daily- ( Prednisone 40mg q day taper over's several weeks recommended by nephrology for possible pantoprazole induced interstitial nephritis) Discontinued montelukast 10 mg by mouth daily in light of possible seizure threshold lowering/rare Pulmonary following Dr. Encinas Continue antibiotics per ID Dr. Nova - recommending lung biopsy CT surgery - [facility]: On Suplena goal 55 cc an hour (per dietary recommendations). Hold for trach On sucralfate 1 g by mouth 4 times daily for GI prophylaxis Docusate sodium 100 mg twice a day, senna liquid 8.6 mg twice a day and polyethylene glycol 3350 17 g twice daily for bowel regimen Continue metoclopramide 5 mill grams IV every 8 hours 10/07 negative KUB. GI consult for PEG History of hydroureter Renal ultrasound revealed no hydronephrosis Reinsert Choi-after intubation- Strict I&O's Endo: Sliding scale insulin with NovoLog with Accu-Cheks every 6 hours/low regimen Renal: Acute on chronic kidney injury Currently holding furosemide 20 mg by mouth daily Nephrology follow-up. 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 Slowly wean steroids due to this issue as above pulmonary section. Dr. Cerda following Creatinine currently 1.5. BUN slightly trending up Heme: History of colon cancer status post partial colectomy History of bladder cancer Normocytic anemia Leukocytosis Monitor CBC daily. Follow trends. Noted elevated lambda and kappa Chains/ESR likely secondary underlying acute kidney injury. Evaluated by Dr. Mccollum/hematology ID: Likely hospital-acquired pneumonia Sepsis Meropenem//linezolid 09/27 through 10/07 Pertinent cultures 10/03-repeat blood, urine Legionella and pneumococcal antigens and sputum cultures no growth 10/03-influenza negative 09/28 - blood cultures 2 - no growth 09/22 - sputum - no growth 09/16 - blood cultures 2 - no growth Recheck urine 10/09- Betty- change choi Recheck blood cultures 2 and sputum 10/10. Repeat sputum culture today 10/13/16 Off all antibiotics per infectious disease FEN: Hypernatremia - resolving Monitor and replete electrolytes Continue calcium acetate 667 mg 3 times a day will be discontinued as phosphorus normal 5 days DCd milk of magnesia from MAR free water 200 cc every 4 hours. MSK: PT evaluate and treat Prophylaxis - GI -sucralfate - DVT - SCD/apixaban Access - Right subclavian CVL placed 09/16 - 10/04 - Right IJ CVL 10/04 present Critical Care: Level 3 Patient remains critically ill. Continues to fail spontaneous breathing trial due to tachypnea and patient is unable to protect airway if extubated. Tracheostomy planned for today Giovani Abraham MD Oct 13, 2016 07:10
[2016-10-13] MEDS: CHLORHEXIDINE 0.12% (ORAL KIT) 15 ML CUP MT SCH ×4 (08:00→20:00)
--- NOTE | 2016-10-13 08:31 | HHI.PR ---
Subjective Remarks on vent for trach Objective Vital Signs Date Time Temp Pulse Resp B/P (MAP) Pulse Ox O2 Delivery O2 Flow Rate FiO2 10/13/16 08:03 98 50 10/13/16 03:57 95 50 10/13/16 03:00 50 10/13/16 03:00 95 Mechanical Ventilator 50 10/13/16 03:00 100.1 86 19 127/75 (92) 95 10/13/16 03:00 86 10/13/16 01:25 97 50 10/12/16 23:00 100.0 84 20 130/75 (93) 96 10/12/16 23:00 90 10/12/16 23:00 96 Mechanical Ventilator 50 10/12/16 23:00 50 10/12/16 22:20 97 50 10/12/16 19:20 94 50 10/12/16 19:00 98.9 84 23 128/73 (91) 94 10/12/16 19:00 84 10/12/16 19:00 50 10/12/16 19:00 94 Mechanical Ventilator 50 10/12/16 16:15 95 40 10/12/16 15:00 97 Mechanical Ventilator 40 10/12/16 15:00 99.6 79 22 111/71 (84) 97 10/12/16 15:00 40 10/12/16 15:00 79 10/12/16 11:00 89 10/12/16 11:00 97 Mechanical Ventilator 45 10/12/16 11:00 100.2 89 28 129/76 (93) 97 10/12/16 11:00 45 I/O 10/12/16 10/12/16 10/12/16 10/13/16 10/13/16 10/13/16 06:59 14:59 22:59 06:59 14:59 22:59 Intake Total 374 ml 1155 ml 1350 ml Output Total 1300 ml 675 ml 750 ml Balance -926 ml 480 ml 600 ml IV Total 374 ml 515 ml 500 ml Tube Feeding 330 ml Tube Irrigant 120 ml Other 640 ml 400 ml Output Urine Total 1300 ml 575 ml 450 ml Stool Total 100 ml 300 ml Bladder Scan Volume Amount 25 ml 25 ml Result Diagram: 10/13/16 0425 10/13/16424 Objective Remarks awake a little lethargic follows all commands well moves all 4 ext generally weak Assessment and Plan Assessment and Plan imp no new spells esr 80 crp and kappa chains and lamda chains 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 shabbir neg on eliquis 5 bid now b12 shots DONE renal issues i ordered some inflammation labs SOME ABN HERE PLEASE ADDRESS ABN KAPPA PROTEINS i dw med team today I WILL SIGNOFF again his vision change due to oleft occipital region cva he had on admission they will do heme consult for above esr inc and abn proteins 10/07/[address] jerks and eeg shows some bilat pled like almost at time sharps i added dil and vimpat to keppra will recheck mri and eeg follow levels 10/08/16 spep abn due to renal dil 8 free dil around 12 mri no new cva on anticoag eeg reportedly looks better this am sz on vimpat and dil looks better will follow 10/13/16 looks well no sz dil 11 free around 16 on vimpat dil dec keppra to 500 bid and will dc few days if doing well last eeg neg Reymundo Jeffries MD Oct 13, 2016 08:31
[2016-10-13] MEDS: SENNOSIDES SYRUP 8.8 MG/5 ML CUP NG SCH ×2 (09:00→22:10)
[2016-10-13] MEDS: ASPIRIN EC 81 MG TABEC PO SCH (09:00)
[2016-10-13] MEDS: SODIUM CHLORIDE 0.9% FLUSH 10 ML FLUSH IVF SCH (09:00)
[2016-10-13] MEDS: DOCUSATE SODIUM 100 MG/10 ML UDC NG SCH ×2 (09:00→22:09)
[2016-10-13] MEDS: POLYETHYLENE GLYCOL 17 GM PKG NG SCH ×2 (09:00→22:09)
[2016-10-13] MEDS: methylPREDNISolone SOD SUCC 40 MG/1 ML VIAL IV PUSH SCH (09:18)
[2016-10-13] MEDS: CALCIUM ACETATE 667 MG CAP PO SCH ×3 (09:18→17:10)
[2016-10-13] MEDS: LABETALOL HCL 100 MG TAB PO SCH ×3 (09:18→17:10)
[2016-10-13] MEDS: levETIRAcetam INJ 500 MG in SODIUM CHLORIDE 0.9% INJ 100 ML IV SCH ×2 (09:19→22:10)
[2016-10-13] MEDS: SODIUM CHLORIDE 0.9% FLUSH 10 ML FLUSH IV FLUSH SCH ×2 (09:19→22:12)
[2016-10-13] MEDS: FUROSEMIDE 40 MG/4 ML VIAL IV PUSH SCH (09:19)
[2016-10-13] MEDS ORDERED: MIDAZOLAM HCL 5 MG/5 ML VIAL IV PUSH ONE (12:30)
[2016-10-13] MEDS ORDERED: ROCURONIUM INJ 50 MG/5 ML VIAL IV ONE (12:30)
[2016-10-13] MEDS ORDERED: MIDAZOLAM HCL 5 MG/ML VIAL (1 ML) ONE (12:37)
--- NOTE | 2016-10-13 13:18 | PD.PROCEDR ---
Procedure Note Procedure DX: Respiratory Failure unable to wean OP: Fiber optic Bronchoscopy for percutaneous tracheostomy Procedure: Time out performed. Usual ICU monitoring in place, patient intubated and ventilated. Sedation and analgesia with Versed, Fentanyl and rocuronium. The scope was introduced through a sealed elbow in the vent circuit. The tracheobronchial tree revealed normal anatomy down to the tertiary bronchial segments. Mucosa was clean and not inflamed. The orotracheal tube and bronchoscope were then withdrawn slowly to the level of the cricoid. This allowed visualization for the percutaneous tracheostomy procedure dictated under a separate note. Position of the trach was confirmed with passage of the scope through the new tube and visualization of the thor. Sats were maintained > 98% throughout the procedure. Blood loss for bronchoscopy was negligible. Giovani Abraham MD Oct 13, 2016 13:18
[2016-10-13] MEDS ORDERED: FUROSEMIDE 20 MG/2 ML VIAL IV SCH (13:45)
--- NOTE | 2016-10-13 13:59 | RADRPT ---
EXAM DATE/TIME: 10/13/2016 13:31 [facility] COMPARISON: CHEST SINGLE AP, October 11, 2016, 10:42. INDICATIONS : Post trach placement. MEDICAL HISTORY : Myocardial infarction. Cardiovascular disease. Aneurysm, abdominal SURGICAL HISTORY : CABG. Abdominal aortic aneurysm repair ENCOUNTER: Subsequent ACUITY: 1 day PAIN SCORE: Non-responsive. LOCATION: Bilateral chest FINDINGS: A single view of the chest demonstrates a persistent mixed interstitial and alveolar process basicall y unchanged. Right IJ central venous catheter stable in position. Endotracheal tube is been removed a nd replaced with a tracheostomy. The tip of the tracheostomy is appropriately positioned at the clavi cular heads. Stable postsurgical changes from prior CABG and intact median sternotomy wires. Heart si ze remains prominent without overt failure. CONCLUSION: 1. Interval placement of tracheostomy tube with the tip at the clavicular heads. 2. Stable cardiomegaly without overt failure. 3. Stable, mixed interstitial and alveolar infiltrate bilaterally.. Farzad Gan MD on October 13, 2016 at 13:55 Board Certified Radiologist. This report was verified electronically.
--- NOTE | 2016-10-13 14:07 | PD.CARD.PN ---
Subjective Subjective Remarks the patient has a tracheostomy now. FiO2 increased overnight. Started diuresis. Lower output today. He had low intake yesterday. Pending CXR today. Cr increased , BUN decreased. No further atrial fibrillation. BP stable. Objective Medications Current Medications Medications (Trade) Dose Ordered Sig/Awilda Route Start Time Stop Time Status Last Admin (NS Flush) 2 ml UNSCH PRN IV FLUSH 09/09/16 00:45 10/11/16 05:19 (NS Flush) 2 ml BID IV FLUSH 09/09/16 09:00 10/13/16 09:19 (Narcan Inj) 0.4 mg UNSCH PRN IV 09/09/16 00:45 (Pill Splitter) 1 ea UNSCH PRN OTHER 09/09/16 14:00 (Eliquis) 5 mg BID PO 09/10/16 09:00 Future Hold 10/11/16 20:59 (Catapres) 0.1 mg Q6H PRN PO 09/11/16 14:30 09/19/16 23:02 (Lopressor Inj) 5 mg Q2HR PRN IV PUSH 09/16/16 14:00 10/10/16 00:40 (Apresoline Inj) 10 mg Q6HR PRN IV PUSH 09/16/16 12:45 10/07/16 10:46 (Racepinephrine 2.25% Neb) 0.5 ml Q1HR NEB PRN NEB 09/17/16 17:15 09/17/16 18:02 (Dulcolax Supp) 10 mg DAILY PRN RECTAL 09/19/16 13:30 (Albuterol Neb) 2.5 mg Q2HR NEB PRN NEB 09/21/16 12:00 10/02/16 21:16 (Phoslo) 667 mg TID PO 09/21/16 18:00 10/13/16 09:18 (Peridex 0.12% Liq) 15 ml BID@08,20 MT 09/22/16 20:00 10/13/16 09:20 (Ecotrin Ec) 81 mg DAILY PO 09/30/16 09:00 Future hold 10/11/16 08:17 (Trandate) 100 mg TID PO 09/30/16 13:00 10/13/16 09:18 (NovoLOG SUPPLEMENTAL SCALE) 1 Q6HR SQ 10/01/16 13:15 10/10/16 18:04 (D50w (Vial) Inj) 50 ml UNSCH PRN IV PUSH 10/01/16 13:15 (Glucagon Inj) 1 mg UNSCH PRN OTHER 10/01/16 13:15 (Tears Naturale Opth Soln) 1 drop Q8HR EACH EYE 10/03/16 14:00 10/13/16 05:16 (Colace Liq) 100 mg Q12HR NG 10/04/16 09:00 10/12/16 19:58 (Senna Liq) 8.8 mg BID NG 10/04/16 09:00 10/12/16 19:58 (NS Flush) DAILY IVF 10/04/16 12:45 10/11/16 08:19 (NS Flush) UNSCH PRN IVF 10/04/16 12:45 (Miralax) 17 gm BID NG 10/05/16 09:00 10/12/16 19:58 (Peridex 0.12% Liq) 15 ml BID@08,20 MT 10/07/16 08:00 10/11/16 20:57 (Reglan Inj) 5 mg Q8HR IV PUSH 10/07/16 08:00 10/13/16 05:15 (Trandate Inj) 10 mg Q1HR PRN IV PUSH 10/07/16 13:00 10/12/16 04:09 (Nitroglycerin 2% Oint) 2 inch Q6HR PRN TOPICAL 10/07/16 13:00 (Cerebyx Inj) 100 mgpe Q8HR IV 10/08/16 06:00 10/13/16 05:15 (Carafate Liq) 1 gm Q6HR NG 10/08/16 12:00 10/13/16 00:38 Lacosamide 200 mg/ Sodium Chloride 120 ml @ 110 mls/hr Q12H IV 10/09/16 00:00 10/13/16 00:39 (Free Water) 200 ml Q4HR G-TUBE 10/09/16 08:00 10/13/16 00:00 Levetriacetam 500 mg/Sodium Chloride 105 ml @ 420 mls/hr Q12HR IV 10/10/16 09:00 10/13/16 09:19 Midazolam HCl 100 ml @ 2 mls/hr TITRATE PRN IV 10/10/16 06:30 10/10/16 06:25 (Lasix Inj) 40 mg DAILY IV PUSH 10/12/16 09:00 10/13/16 09:19 (SoluMEDROL INJ) 30 mg DAILY IV PUSH 10/12/16 09:00 10/13/16 09:18 (Lasix Inj) 20 mg UNSCH IV 10/13/16 13:45 UNV Vital Signs / I&O Vital Signs Date Time Temp Pulse Resp B/P (MAP) Pulse Ox O2 Delivery O2 Flow Rate FiO2 10/13/16 08:03 98 50 10/13/16 03:57 95 50 10/13/16 03:00 50 10/13/16 03:00 95 Mechanical Ventilator 50 10/13/16 03:00 100.1 86 19 127/75 (92) 95 10/13/16 03:00 86 10/13/16 01:25 97 50 10/12/16 23:00 100.0 84 20 130/75 (93) 96 10/12/16 23:00 90 10/12/16 23:00 96 Mechanical Ventilator 50 10/12/16 23:00 50 10/12/16 22:20 97 50 10/12/16 19:20 94 50 10/12/16 19:00 98.9 84 23 128/73 (91) 94 10/12/16 19:00 84 10/12/16 19:00 50 10/12/16 19:00 94 Mechanical Ventilator 50 10/12/16 16:15 95 40 10/12/16 15:00 97 Mechanical Ventilator 40 10/12/16 15:00 99.6 79 22 111/71 (84) 97 10/12/16 15:00 40 10/12/16 15:00 79 I/O 10/12/16 10/12/16 10/12/16 10/13/16 10/13/16 10/13/16 07:00 15:00 23:00 07:00 15:00 23:00 Intake Total 374 ml 1155 ml 1350 ml Output Total 1300 ml 675 ml 750 ml Balance -926 ml 480 ml 600 ml IV Total 374 ml 515 ml 500 ml Tube Feeding 330 ml Tube Irrigant 120 ml Other 640 ml 400 ml Output Urine Total 1300 ml 575 ml 450 ml Stool Total 100 ml 300 ml Bladder Scan Volume Amount 25 ml Physical Exam GENERAL: Elderly male, obtunded (recently received sedation for trach) SKIN: Warm and dry. HEAD: Normocephalic. EYES: No scleral icterus. No injection or drainage. NECK: Supple, trachea midline. Tracheostomy CARDIOVASCULAR: Midline incision healing well, reg rate and rhythm RESPIRATORY: Equal, continues on mechanical ventilation GASTROINTESTINAL: Abdomen soft,nondistended. MUSCULOSKELETAL: No cyanosis, pedal edema BACK: Nontender without obvious deformity. Laboratory Laboratory Tests Test 10/13/16 01:30 10/13/16 04:25 Phenytoin (Dilantin) Level 11.2 MCG/ML White Blood Count 14.3 TH/MM3 Red Blood Count 2.48 MIL/MM3 Hemoglobin 7.5 GM/DL Hematocrit 23.2 % Mean Corpuscular Volume 93.5 FL Mean Corpuscular Hemoglobin 30.3 PG Mean Corpuscular Hemoglobin Concent 32.4 % Red Cell Distribution Width 17.6 % Platelet Count 137 TH/MM3 Mean Platelet Volume 9.7 FL Neutrophils (%) (Auto) 73.3 % Lymphocytes (%) (Auto) 10.5 % Monocytes (%) (Auto) 7.7 % Eosinophils (%) (Auto) 7.9 % Basophils (%) (Auto) 0.6 % Neutrophils # (Auto) 10.5 TH/MM3 Lymphocytes # (Auto) 1.5 TH/MM3 Monocytes # (Auto) 1.1 TH/MM3 Eosinophils # (Auto) 1.1 TH/MM3 Basophils # (Auto) 0.1 TH/MM3 CBC Comment DIFF FINAL Differential Comment Blood Urea Nitrogen 61 MG/DL Creatinine 1.52 MG/DL Random Glucose 89 MG/DL Total Protein 5.6 GM/DL Albumin 2.0 GM/DL Calcium Level 8.3 MG/DL Alkaline Phosphatase 63 U/L Aspartate Amino Transf (AST/SGOT) 29 U/L Alanine Aminotransferase (ALT/SGPT) 23 U/L Total Bilirubin 0.4 MG/DL Sodium Level 145 MEQ/L Potassium Level 4.0 MEQ/L Chloride Level 107 MEQ/L Carbon Dioxide Level 30.4 MEQ/L Anion Gap 8 MEQ/L Estimat Glomerular Filtration Rate 45 ML/MIN Magnesium Level 2.0 MG/DL Imaging Last 72 hours Impressions Chest X-Ray 10/11/16 0600 Signed Impressions: Service Date/Time: Tuesday, October 11, 2016 05:05 - CONCLUSION: No significant change. Jarad Aleman MD Chest X-Ray 10/11/16 0000 Signed Impressions: Service Date/Time: Tuesday, October 11, 2016 10:42 - CONCLUSION: No significant change has occurred. Ajay Prabhakar MD Assessment and Plan Problem List: (1) History of CVA (cerebrovascular accident) ICD Codes: Z86.73 - Personal history of transient ischemic attack (TIA), and cerebral infarction without residual deficits Status: Acute (2) CKD (chronic kidney disease) stage 3, GFR 30-59 ml/min ICD Codes: N18.3 - Chronic kidney disease, stage 3 (moderate) Status: Acute (3) S/P CABG x 3 ICD Codes: Z95.1 - Presence of aortocoronary bypass graft Status: Acute (4) Atrial fibrillation ICD Codes: I48.91 - Unspecified atrial fibrillation (5) Acute hypoxemic respiratory failure ICD Codes: J96.01 - Acute respiratory failure with hypoxia Status: Acute (6) Hypertension ICD Codes: I10 - Essential (primary) hypertension Status: Acute (7) Thoracic aortic aneurysm without rupture ICD Codes: I71.2 - Thoracic aortic aneurysm, without rupture Status: Acute Assessment and Plan PLAN: Continue labetalol. Eliquis on hold peg. Weaning high dose steroids Continue Lasix and monitor renal/electrolytes. Lower I/O. Cr increased will reevaluate tomorrow for increasing Lasix back up to 40. Check BNP in the AM SBP goal < 130 DBP goal < 90. The patient was seen and evaluated by Dr. Moran who completed a [id number] encounter, completed a physical exam and participated in evaluation and management. Elin Kwok Oct 13, 2016 14:07
--- NOTE | 2016-10-13 14:53 | MP ---
cc: SABINE SOUZA MD DATE OF SURGERY: 10/13/2016 PREOPERATIVE DIAGNOSIS Acute respiratory failure, prolonged ventilation. POSTOPERATIVE DIAGNOSIS Acute respiratory failure, prolonged ventilation. PROCEDURE PERFORMED Percutaneous tracheostomy with bronchoscopic guidance. SURGEON Dr. Sabine Souza. BRONCHOSCOPIST Dr. Giovani Abraham. ANESTHESIA Fentanyl and Versed. WOUND CLASSIFICATION Clean. COMPLICATIONS None. FINDINGS Good end-tidal bilateral breath sounds following trach placement. INDICATION The patient is a 75-year-old male who was initially admitted approximately one month ago with multiple medical problems and admitted with a history of CABG and history of stroke as well. The patient required intubation and has been on prolonged ventilation. Several attempts at extubation has been done without success. Therefore the patient is in need of percutaneous tracheostomy. Plan is for bedside percutaneous tracheostomy under bronchoscopic surveillance. DETAILS OF PROCEDURE The patient was in the CVICU suite, placed in position. A towel roll was placed in order to extend the neck appropriately. A brief timeout was done, stating correct patient, procedure and surgical site, and all were in agreement with this. Anesthesia was given and the patient was oxygenated up to 100% FIO2. Dr. Abraham was at the head of the bed for bronchoscopic surveillance. The sternal edge was identified. Local anesthetic was injected. A 15 blade was used to make a small 2 cm midline incision over the trachea, over the second and third tracheal ring. The thyroid cartilage was palpated and noted to be prominent and somewhat distal. Further dissection was done with a hemostat to the trachea, again second and third tracheal rings identified and palpated. An introducer needle cannulated over an Angiocath was placed. Confirmation of placement after retraction of the ET tube was done with again bronchoscopic surveillance. The guidewire was advanced over the Angiocath and the Angiocath was removed. A punch was used for dilation x3. This was then removed. Next, the Blue Rhino dilator which dilated again x3 to adequately dilate the trachea. Next, a #8 cuffed Shiley tracheostomy was placed. The inner cannula was removed and replaced in order to tong hooker to the vent. The balloon was inflated. Dr. Abraham then cannulated the tracheostomy with the bronchoscope and confirmed adequate placement. The tracheostomy was secured with four 3-0 nylon sutures and trach ties were also placed. The patient was hooked up to the ventilator, again confirmation of end-tidal and good saturation and bilateral breath sounds. The patient tolerated the procedure well. There was no intraoperative complication. The patient remained on ventilation. All counts were correct. MD MAURICIO Alonso/PEARL /1:58 PM /2:37 PM
[2016-10-13] MEDS: LABETALOL HCL 100 MG/20 ML VIAL IV PUSH PRN (15:48)
[2016-10-13] MEDS ORDERED: MORPHINE SULFATE 4 MG/ML INJ ONE (16:13)
--- NOTE | 2016-10-13 19:25 | HHI.PR ---
Subjective Remarks Intubated and on a ventilator , with FIo2 at 45 %. Very lethargic . failed CPAP.Chest X Ray is better On seizure meds. Off sedation. Remains Lethargic today. For trach in am Objective Vital Signs Date Time Temp Pulse Resp B/P (MAP) Pulse Ox O2 Delivery O2 Flow Rate FiO2 10/13/16 16:09 98 50 10/13/16 15:00 89 10/13/16 15:00 50 10/13/16 15:00 99.2 84 21 152/95 (114) 99 10/13/16 15:00 90 Mechanical Ventilator 50 Trach Collar 10/13/16 14:50 21 10/13/16 12:45 100 100 10/13/16 11:00 89 10/13/16 11:00 50 10/13/16 11:00 98.6 89 19 153/90 (111) 99 10/13/16 11:00 98 Mechanical Ventilator 50 10/13/16 08:03 98 50 10/13/16 07:00 99 Mechanical Ventilator 50 10/13/16 07:00 89 10/13/16 07:00 98.6 89 19 153/90 (111) 99 10/13/16 07:00 50 10/13/16 03:57 95 50 10/13/16 03:00 50 10/13/16 03:00 95 Mechanical Ventilator 50 10/13/16 03:00 100.1 86 19 127/75 (92) 95 10/13/16 03:00 86 10/13/16 01:25 97 50 10/12/16 23:00 100.0 84 20 130/75 (93) 96 10/12/16 23:00 90 10/12/16 23:00 96 Mechanical Ventilator 50 10/12/16 23:00 50 10/12/16 22:20 97 50 I/O 10/12/16 10/12/16 10/12/16 10/13/16 10/13/16 10/13/16 07:00 15:00 23:00 07:00 15:00 23:00 Intake Total 374 ml 1155 ml 1350 ml 105 ml 400 ml Output Total 1300 ml 675 ml 750 ml 1125 ml Balance -926 ml 480 ml 600 ml 105 ml -725 ml IV Total 374 ml 515 ml 500 ml 105 ml Tube Feeding 330 ml Tube Irrigant 120 ml Other 640 ml 400 ml 400 ml Output Urine Total 1300 ml 575 ml 450 ml 1025 ml Stool Total 100 ml 300 ml 100 ml Bladder Scan Volume Amount 25 ml Result Diagram: 10/13/1642410/13/16424 Objective Remarks GENERAL: This moderately overweight elderly man ,Intubated on the vent. HEENT: Head is normocephalic. Pupils are reactive. Tongue is moist. Throat clear NECK: No venous distention. No thyroid enlargement. CHEST: Equal movements with diminished breath sounds at the bases with Occ basal crackles.Few wheezes. HEART: Sounds are irregular S1-S2. No murmur. ABDOMEN: Soft. Protuberant without masses. No organomegaly. EXTREMITIES: Decreased pulses. No Edema SKIN: warm. Neuro : lethargic.Moves arm and feet. Assessment and Plan Assessment and Plan IMPRESSION 1. Acute respiratory failure.Resolving 2. Fluid overload status with pulmonary edema. 3. Acute kidney failure.Resolving 4. History of cerebrovascular accident. 5. Bibasilar atelectasis with possible pneumonia. 6. History of colon cancer and bladder cancer. 7. Possible Hypersensitivity Pneumonia or Edema Plan : 1. CPAP today for up to 4 hrs FIO2 50 % 2. Place on A/C rate 12 at night. 3. Nebs qid ,Duoneb. 4. For Trach per Dr Abraham 5. Antibiotics per ID 6. Cont Keppra/Dilantin 7. solumedrol IV 20 mg daily. 8. CXR in am Jaime Encinas MD Oct 13, 2016 19:25
[2016-10-14] VITALS (16 sets, daily range): BP systolic 123–138; BP diastolic 69–81; PULSE 74–97; RESP 17–25; TEMP 97.7–100.2; O2SAT 91–99
[2016-10-14] MEDS: LACOSAMIDE INJ 200 MG in SODIUM CHLORIDE 0.9% INJ 100 ML IV SCH ×2 (00:14→12:17)
[2016-10-14] MEDS: SUCRALFATE 1 GM/10 ML CUP NG SCH ×4 (00:15→17:25)
[2016-10-14] MEDS: FREE WATER G-TUBE SCH ×6 (04:00→20:00)
[2016-10-14 04:31] LABS: AUTOMATED NEUTROPHIL # 14.2 TH/MM3 (1.8-7.7); BASOPHIL # 0.1 TH/MM3 (0-0.2); BASOPHIL % 0.4 % (0.0-2.0); EOSINOPHIL # 0.9 TH/MM3 (0-0.4); HEMATOCRIT 24.4 % (39.0-51.0); HEMO FLAGS DIFF FINAL; LYMPH % 6.4 % (9.0-44.0); LYMPHOCYTE # 1.1 TH/MM3 (1.0-4.8); MEAN CELL VOLUME 93.1 FL (80.0-100.0); MEAN CORPUSCULAR HEMOGLOBIN 29.2 PG (27.0-34.0); MEAN CORPUSCULAR HGB CONC 31.4 % (32.0-36.0); NEUT % 81.2 % (16.0-70.0); PLATELET COUNT 158 TH/MM3 (150-450); RED BLOOD COUNT 2.62 MIL/MM3 (4.50-5.90); RED CELL DISTRIBUTION WIDTH 17.9 % (11.6-17.2); WHITE BLOOD COUNT 17.5 TH/MM3 (4.0-11.0)
[2016-10-14 04:55] LABS: ANION GAP 7 MEQ/L (5-15); AST (GOT) 27 U/L (15-37); BICARBONATE 29.6 MEQ/L (21.0-32.0); BLOOD UREA NITROGEN 65 MG/DL (7-18); CHLORIDE 105 MEQ/L (98-107); GLOMERULAR FILTRATION RATE 36 ML/MIN (>89); POTASSIUM 3.7 MEQ/L (3.5-5.1); SODIUM (NA) 142 MEQ/L (136-145)
[2016-10-14 04:59] LABS: ALKALINE PHOSPHATASE 68 U/L (45-117); ALT (GPT) 22 U/L (12-78); TOTAL BILIRUBIN ADULT 0.4 MG/DL (0.2-1.0)
[2016-10-14] MEDS: INSULIN ASPART SUPPLEMENTAL SCALE SQ SCH ×4 (05:24→18:37)
[2016-10-14] MEDS: FOSPHENYTOIN SODIUM 100 MG PE/2 ML VIAL IV SCH ×3 (05:37→22:27)
[2016-10-14] MEDS: METOCLOPRAMIDE HCL 10 MG/2 ML VIAL IV PUSH SCH ×3 (05:38→22:27)
[2016-10-14] MEDS: ARTIFICIAL TEARS OPTH SOLN 15 ML BTL EACH EYE SCH ×3 (05:56→22:35)
--- NOTE | 2016-10-14 06:33 | RADRPT ---
EXAM DATE/TIME: 10/14/2016 06:05 [facility] COMPARISON: CHEST SINGLE AP, October 13, 2016, 13:31. INDICATIONS : Respiratory status. MEDICAL HISTORY : None. SURGICAL HISTORY : None. ENCOUNTER: Subsequent ACUITY: 4 - 6 days PAIN SCORE: Non-responsive. LOCATION: Bilateral chest FINDINGS: Stable tracheostomy, right IJ central line, and NGT with tip omitted from the image. Redemonstration of bilateral diffuse interstitial and patchy airspace disease. Cardiomediastinal contours are stable. Remainder of the exam is unchanged. CONCLUSION: 1. Stable tubes and lines, as above. 2. Stable diffuse bilateral mixed interstitial and airspace disease. 3. No significant interval change. Richardson Haney MD on October 14, 2016 at 6:30 Board Certified Radiologist. This report was verified electronically.
[2016-10-14] MEDS: CHLORHEXIDINE 0.12% (ORAL KIT) 15 ML CUP MT SCH ×3 (08:00→20:00)
[2016-10-14] MEDS: methylPREDNISolone SOD SUCC 40 MG/1 ML VIAL IV PUSH SCH (08:57)
[2016-10-14] MEDS: DOCUSATE SODIUM 100 MG/10 ML UDC NG SCH ×2 (08:57→20:09)
[2016-10-14] MEDS: APIXABAN 5 MG TABLET PO SCH (08:58)
[2016-10-14] MEDS: CALCIUM ACETATE 667 MG CAP PO SCH ×3 (08:58→17:25)
[2016-10-14] MEDS: levETIRAcetam INJ 500 MG in SODIUM CHLORIDE 0.9% INJ 100 ML IV SCH ×2 (08:58→20:09)
[2016-10-14] MEDS: ASPIRIN EC 81 MG TABEC PO SCH (08:58)
[2016-10-14] MEDS: FUROSEMIDE 40 MG/4 ML VIAL IV PUSH SCH (08:58)
[2016-10-14] MEDS: LABETALOL HCL 100 MG TAB PO SCH ×3 (08:58→17:25)
[2016-10-14] MEDS: SODIUM CHLORIDE 0.9% FLUSH 10 ML FLUSH IV FLUSH SCH ×2 (08:59→20:11)
[2016-10-14] MEDS: POLYETHYLENE GLYCOL 17 GM PKG NG SCH ×2 (09:00→20:09)
[2016-10-14] MEDS: SENNOSIDES SYRUP 8.8 MG/5 ML CUP NG SCH ×2 (09:00→20:09)
--- NOTE | 2016-10-14 09:45 | PD.CARD.PN ---
Subjective Subjective Remarks More awake, trying to talk. No acute events overnight. Tolerating CPAP/PPV. HR slightly elevated. Still waiting on PEG. Eliquis resumed for now. Cr elevated. H /H stabilized. No evidence of bleeding Objective Medications Current Medications Medications (Trade) Dose Ordered Sig/Awilda Route Start Time Stop Time Status Last Admin (NS Flush) 2 ml UNSCH PRN IV FLUSH 09/09/16 00:45 10/11/16 05:19 (NS Flush) 2 ml BID IV FLUSH 09/09/16 09:00 10/14/16 08:59 (Narcan Inj) 0.4 mg UNSCH PRN IV 09/09/16 00:45 (Pill Splitter) 1 ea UNSCH PRN OTHER 09/09/16 14:00 (Eliquis) 5 mg BID PO 09/10/16 09:00 Future hold 10/14/16 08:58 (Catapres) 0.1 mg Q6H PRN PO 09/11/16 14:30 09/19/16 23:02 (Lopressor Inj) 5 mg Q2HR PRN IV PUSH 09/16/16 14:00 10/10/16 00:40 (Apresoline Inj) 10 mg Q6HR PRN IV PUSH 09/16/16 12:45 10/07/16 10:46 (Racepinephrine 2.25% Neb) 0.5 ml Q1HR NEB PRN NEB 09/17/16 17:15 09/17/16 18:02 (Dulcolax Supp) 10 mg DAILY PRN RECTAL 09/19/16 13:30 (Albuterol Neb) 2.5 mg Q2HR NEB PRN NEB 09/21/16 12:00 10/02/16 21:16 (Phoslo) 667 mg TID PO 09/21/16 18:00 10/14/16 08:58 (Peridex 0.12% Liq) 15 ml BID@08,20 MT 09/22/16 20:00 10/14/16 09:02 (Ecotrin Ec) 81 mg DAILY PO 09/30/16 09:00 Future hold 10/14/16 08:58 (Trandate) 100 mg TID PO 09/30/16 13:00 10/14/16 08:58 (NovoLOG SUPPLEMENTAL SCALE) 1 Q6HR SQ 10/01/16 13:15 10/10/16 18:04 (D50w (Vial) Inj) 50 ml UNSCH PRN IV PUSH 10/01/16 13:15 (Glucagon Inj) 1 mg UNSCH PRN OTHER 10/01/16 13:15 (Tears Naturale Opth Soln) 1 drop Q8HR EACH EYE 10/03/16 14:00 10/14/16 05:56 (Colace Liq) 100 mg Q12HR NG 10/04/16 09:00 10/14/16 08:57 (Senna Liq) 8.8 mg BID NG 10/04/16 09:00 10/13/16 22:10 (NS Flush) DAILY IVF 10/04/16 12:45 10/11/16 08:19 (NS Flush) UNSCH PRN IVF 10/04/16 12:45 (Miralax) 17 gm BID NG 10/05/16 09:00 10/13/16 22:09 (Peridex 0.12% Liq) 15 ml BID@08,20 MT 10/07/16 08:00 10/11/16 20:57 (Reglan Inj) 5 mg Q8HR IV PUSH 10/07/16 08:00 10/14/16 05:38 (Trandate Inj) 10 mg Q1HR PRN IV PUSH 10/07/16 13:00 10/13/16 15:48 (Nitroglycerin 2% Oint) 2 inch Q6HR PRN TOPICAL 10/07/16 13:00 (Cerebyx Inj) 100 mgpe Q8HR IV 10/08/16 06:00 10/14/16 05:37 (Carafate Liq) 1 gm Q6HR NG 10/08/16 12:00 10/14/16 05:37 Lacosamide 200 mg/ Sodium Chloride 120 ml @ 110 mls/hr Q12H IV 10/09/16 00:00 10/14/16 00:14 (Free Water) 200 ml Q4HR G-TUBE 10/09/16 08:00 10/14/16 08:00 Levetriacetam 500 mg/Sodium Chloride 105 ml @ 420 mls/hr Q12HR IV 10/10/16 09:00 10/14/16 08:58 (SoluMEDROL INJ) 30 mg DAILY IV PUSH 10/12/16 09:00 10/14/16 08:57 Sodium Chloride 1,000 ml @ 50 mls/hr Q20H IV 10/14/16 09:45 10/15/16 09:44 UNV Vital Signs / I&O Vital Signs Date Time Temp Pulse Resp B/P (MAP) Pulse Ox O2 Delivery O2 Flow Rate FiO2 10/14/16 08:21 98 45 10/14/16 04:41 98 45 10/14/16 03:00 91 10/14/16 03:00 45 10/14/16 03:00 95 Mechanical Ventilator 45 10/14/16 03:00 98.9 82 17 137/81 (99) 95 10/14/16 01:16 99 45 10/13/16 23:00 95 Mechanical Ventilator 50 10/13/16 23:00 82 10/13/16 23:00 99.7 82 17 111/70 (84) 96 10/13/16 23:00 50 10/13/16 20:40 95 50 10/13/16 19:00 96 Mechanical Ventilator 50 10/13/16 19:00 99.2 85 16 136/83 (100) 96 10/13/16 19:00 50 10/13/16 19:00 85 10/13/16 16:09 98 50 10/13/16 15:00 89 10/13/16 15:00 50 10/13/16 15:00 99.2 84 21 152/95 (114) 99 10/13/16 15:00 90 Mechanical Ventilator 50 Trach Collar 10/13/16 14:50 21 10/13/16 12:45 100 100 10/13/16 11:00 89 10/13/16 11:00 50 10/13/16 11:00 98.6 89 19 153/90 (111) 99 10/13/16 11:00 98 Mechanical Ventilator 50 I/O 10/13/16 10/13/16 10/13/16 10/14/16 10/14/16 10/14/16 07:00 15:00 23:00 07:00 15:00 23:00 Intake Total 1350 ml 105 ml 450 ml 1294 ml Output Total 750 ml 1125 ml 850 ml Balance 600 ml 105 ml -675 ml 444 ml IV Total 500 ml 105 ml 50 ml 300 ml Tube Feeding 330 ml 394 ml Tube Irrigant 120 ml Other 400 ml 400 ml 600 ml Output Urine Total 450 ml 1025 ml 650 ml Stool Total 300 ml 100 ml 200 ml Physical Exam GENERAL: Elderly male, more awake, trying to talk SKIN: Warm and dry. HEAD: Normocephalic. EYES: No scleral icterus. No injection or drainage. NECK: Supple, trachea midline. Tracheostomy CARDIOVASCULAR: reg rhythm, tachycardia RESPIRATORY: Equal, CPAP/PPV GASTROINTESTINAL: Abdomen soft,nondistended. NG MUSCULOSKELETAL: No cyanosis, pedal edema BACK: Nontender without obvious deformity. Laboratory Laboratory Tests Test 10/14/16 04:15 White Blood Count 17.5 TH/MM3 Red Blood Count 2.62 MIL/MM3 Hemoglobin 7.7 GM/DL Hematocrit 24.4 % Mean Corpuscular Volume 93.1 FL Mean Corpuscular Hemoglobin 29.2 PG Mean Corpuscular Hemoglobin Concent 31.4 % Red Cell Distribution Width 17.9 % Platelet Count 158 TH/MM3 Mean Platelet Volume 9.0 FL Neutrophils (%) (Auto) 81.2 % Lymphocytes (%) (Auto) 6.4 % Monocytes (%) (Auto) 7.0 % Eosinophils (%) (Auto) 5.0 % Basophils (%) (Auto) 0.4 % Neutrophils # (Auto) 14.2 TH/MM3 Lymphocytes # (Auto) 1.1 TH/MM3 Monocytes # (Auto) 1.2 TH/MM3 Eosinophils # (Auto) 0.9 TH/MM3 Basophils # (Auto) 0.1 TH/MM3 CBC Comment DIFF FINAL Differential Comment Blood Urea Nitrogen 65 MG/DL Creatinine 1.82 MG/DL Random Glucose 139 MG/DL Total Protein 6.1 GM/DL Albumin 2.1 GM/DL Calcium Level 8.4 MG/DL Alkaline Phosphatase 68 U/L Aspartate Amino Transf (AST/SGOT) 27 U/L Alanine Aminotransferase (ALT/SGPT) 22 U/L Total Bilirubin 0.4 MG/DL Sodium Level 142 MEQ/L Potassium Level 3.7 MEQ/L Chloride Level 105 MEQ/L Carbon Dioxide Level 29.6 MEQ/L Anion Gap 7 MEQ/L Estimat Glomerular Filtration Rate 36 ML/MIN B-Type Natriuretic Peptide 275 PG/ML Imaging Last 72 hours Impressions Chest X-Ray 10/14/16 0600 Signed Impressions: Service Date/Time: October 06:05 - CONCLUSION: 1. Stable tubes and lines, as above. 2. Stable diffuse bilateral mixed interstitial and airspace disease. 3. No significant interval change. Richardson Haney MD Chest X-Ray 10/13/16 0000 Signed Impressions: Service Date/Time: Thursday, October 13, 2016 13:31 - CONCLUSION: 1. Interval placement of tracheostomy tube with the tip at the clavicular heads. 2. Stable cardiomegaly without overt failure. 3. Stable, mixed interstitial and alveolar infiltrate bilaterally.. Farzad Gan MD Assessment and Plan Problem List: (1) History of CVA (cerebrovascular accident) ICD Codes: Z86.73 - Personal history of transient ischemic attack (TIA), and cerebral infarction without residual deficits Status: Acute (2) CKD (chronic kidney disease) stage 3, GFR 30-59 ml/min ICD Codes: N18.3 - Chronic kidney disease, stage 3 (moderate) Status: Acute (3) S/P CABG x 3 ICD Codes: Z95.1 - Presence of aortocoronary bypass graft Status: Acute (4) Atrial fibrillation ICD Codes: I48.91 - Unspecified atrial fibrillation (5) Acute hypoxemic respiratory failure ICD Codes: J96.01 - Acute respiratory failure with hypoxia Status: Acute (6) Hypertension ICD Codes: I10 - Essential (primary) hypertension Status: Acute (7) Thoracic aortic aneurysm without rupture ICD Codes: I71.2 - Thoracic aortic aneurysm, without rupture Status: Acute Assessment and Plan PLAN: Continue labetalol. Eliquis resumed. Weaning high dose steroids Resume lasix 40 mg NG tomorrow with close follow up of renal/electrolytes SBP goal < 130 DBP goal < 90. The patient was seen and evaluated by Dr. Moran who completed a [id number] encounter, completed a physical exam and participated in evaluation and management. Elin Kwok Oct 14, 2016 09:45
--- NOTE | 2016-10-14 09:50 | HHI.CCPN ---
Subjective Remarks/Hospital Course 75 y/o man now about 4 weeks following CABG complicated by CVA. Presented back 08/28 with new onset right arm weakness. Hospital course has been complicated by CKD and fluid overload. We have attempted BiPAP for several hours but he remains in distress and although oxygenation is acceptable work of breathing is excessive. Worrisome increasing metabolic acidosis. 09/17: Gas exchange much improved. BNP 1681, ScVO2 71%. It appears that cardiac output is more than adequate for peripheral needs and the primary pathology is renal failure and fluid overload. If we can manage volume I can probably get him extubated. 09/18: Diffuse crackles. Needs to be diuresed today. Tolerating extubation but at risk for hypoxemic failure again. 09/20 - Re consulted due to worsening hypoxia. Currently on nonrebreather mask. Chest x-ray shows worsening consolidation right lobe creatinine slightly improved over. Family request transfer to [facility] however refused. We'll attempt to decipher status currently unknown. 09/21: Remains on nonrebreather mask. Saturations between 89-97%. Chest x-ray unchanged. Not tachypnea. Not confused. 09/22: Radiographic studies show diffuse interstitial process with skip areas - more indicative of infectious/inflammatory process. Sats 85% with labored pattern. Required intubation for deteriorating respiratory status. 09/23: Gas exchange improving. Pulmonary infiltrates remain very concerning - if most recent sputum is benign I would not be opposed to steroids. 09/24: Extubated today. On 3 L nasal cannula. Passed swallow evaluation. Appropriate interactive status post extubation. 09/29: Critical care reconsult requested by Dr. Meza for respiratory failure. Patient reportedly was on BiPAP this morning. He was given additional diuretic earlier as he was short of breath. With this he seems to have improved somewhat and has been on a nonrebreather facemask for more than a few hours. He states that he is breathing much better. Patient being adamant about not using BiPAP. I had a detailed conversation about the importance of using BiPAP especially at night in view of his history of sleep apnea. Patient did not appear to be in acute distress though he was requiring a nonrebreather facemask at the time of my evaluation. No urgent need for BiPAP or intubation at this time. In fact patient is stating that he is breathing much better than this morning. 09/30: Remains on nonrebreather facemask. Refused BiPAP at night. States that he is breathing better today than yesterday. 10/01: 02 30 L/m 100% FiO2. O2 sats borderline. Episodes of confusion. When I evaluated the patient he was sitting up in bed and was able to converse. Not using accessory muscles of respirations currently. 10/02: The patient is alert and oriented currently has been weaned down to high flow nasal cannula with an FiO2 of 65%, maintaining O2 saturation to 95%. Patient is appropriately conversant no episodes of confusion noted. 10/03: Yesterday, the patient received 2 units of packed red blood cells with Furosemide dosing in between transfusion of units, with diuresis of approximately 2900 cc. Last night, the patient was noted to have respiratory decompensation, continued refusal to utilize BiPAP during the night. FiO2 requirements increased to 100% this a.m., on high flow nasal cannula, with noted accessory muscle use and inability to speak in complete sentences secondary to dyspnea. The patient received additional dose of Lasix this a.m. , chest x-ray appeared to be worsened this a.m. .Patient subsequently became hypoxic requiring emergent intubation this a.m.., O2 sat saturation 80s on 100 % FiO2. 10/04: Intubated yesterday due to general and hypoxia. Diuresed with 80 mg furosemide 1. Tmax 99.8. Currently 97.8. Tube feeds initiated. No bowel movement. 10/05: Afebrile. Subcutaneous air in neck bilaterally on chest x-ray today. No obvious pneumothorax. No pneumothorax on chest x-ray yesterday post central line placement. Tolerating tube feeding. No bowel movement. 10/06: Currently resting in bed. Subcutaneous air neck much improved. X-ray improved. FiO2 down to 40%. Tolerating tube feeding. One bowel movement. 10/07: Afebrile. Currently on propofol drip at 40 mg/kg per minute. X-ray has improved. Currently not tolerating tube feeds. 2 bowel movements documented. Sedation vacation today ordered. 10/08: Afebrile. Saturations 95% on FiO2 50%. MRI brain showed no acute findings last night. EEG repeated for today. PLEDs on previous EEG. Vimpat along with fosphenytoin added per neurology. Arousable on the ventilator. Tube feeds to be resumed today. Discussed with at length yesterday 10/09: MAXIMUM TEMPERATURE 99.5. Currently 99.3. Tube feeds currently at 20 cc an hour. Minimal residuals. Arousable and intermittently follows commands mostly with right upper extremity. 10/10: Febrile. Tube feeds currently at 25 cc an hour. Minimal residuals. Positive BM. Not arousable this AM. EEG still reveals underlying sharp spikes. Vimpat increased yesterday. Subjective: 10/11: Remains intubated tachypneic on CPAP 11/11, Lethargic not consistently following commands. After being placed on 06/11 patient is more tachypneic, breathing in mid 30s 10/12: Remains intubated off sedation. Very lethargic, copious oral secretions and moderate ET tube secretions. We'll discuss with general surgery regarding tracheostomy today. 10/11/16 did not show seizure activity but moderate encephalopathy 10/13: Remains off sedation quite lethargic. We except to sternal rub. We believe follows commands on right upper and bilateral lower extremities. Low- grade fever. Tracheostomy planned for afternoon 10/14: s/p trach yesterday. Remains lethargic, but follows commands on the right side. Increase in white count noted. Creatinine increasing now 1.8. Will discontinue IV Lasix and give IV hydration for 24 hours. Attempt T piece 2-4 hours Objective Vital Signs Date Time Temp Pulse Resp B/P (MAP) Pulse Ox O2 Delivery O2 Flow Rate FiO2 10/14/16 08:21 98 45 10/14/16 03:00 91 10/14/16 03:00 Mechanical Ventilator 10/14/16 03:00 98.9 17 137/81 (99) Intake and Output 10/14/16 10/14/16 10/15/16 08:00 16:00 00:00 Intake Total 1294 ml Output Total 850 ml Balance 444 ml Result Diagram: 10/14/16 0415 10/14/16 0415 Imaging Last Impressions Chest X-Ray 10/10/16 0600 Signed Impressions: Service Date/Time: Monday, October 10, 2016 04:25 - CONCLUSION: 1. Support apparatus in satisfactory position. Patchy airspace and interstitial changes similar to October 2. Amado Crain MD Brain MRI 10/07/16 0000 Signed Impressions: Service Date/Time: September 21:45 - CONCLUSION: 1. Residual small areas of infarction seen bilaterally. There are fewer areas of signal abnormality seen on the diffusion-weighted images on the current exam. New areas of infarction are not present. 2. Areas of demyelination throughout the cerebral and pontine white matter likely from small vessel ischemic change. 3. Fluid in the mastoid air cells. Jarad Cat MD Abdomen X-Ray 10/07/16 0000 Signed Impressions: Service Date/Time: September 08:32 - CONCLUSION: Unremarkable bowel gas pattern. Sanya Cavazos MD Neck CT 10/05/16 0000 Signed Impressions: Service Date/Time: Wednesday, October 05, 2016 10:41 - CONCLUSION: Extensive subcutaneous emphysema. Jarad De Jesus MD Chest CT 10/05/16 0000 Signed Impressions: Service Date/Time: Wednesday, October 05, 2016 10:43 - CONCLUSION: Prior median sternotomy cardiac surgery atherosclerotic cardiovascular disease with left ventricular cardiomegaly and evidence of interstitial alveolar edema in both lungs consistent with CHF. Support tubes in place with subcutaneous emphysema in the soft tissues of neck bilaterally and supraclavicular. There is no evidence of pneumothorax. Lele Escudero MD Head Magnetic Resonance Angiography 09/10/16 1028 Signed Impressions: Service Date/Time: Saturday, September 10, 2016 10:57 - CONCLUSION: 1. Unremarkable MRA examination without evidence for large vessel occlusion, aneurysm, or vascular malformation. Richardson Haney MD Carotid Artery Ultrasound 09/09/16 1028 Signed Impressions: Service Date/Time: September 10:43 - CONCLUSION: 1. Moderate visible plaque without hemodynamically significant stenosis identified. No significant change from August 25. Amado Crain MD Renal Ultrasound 09/09/16 0000 Signed Impressions: Service Date/Time: September 15:41 - CONCLUSION: 1. Cortical atrophy with small bilateral renal cysts. No hydronephrosis. Amado Crain MD Head CT 09/08/16 2251 Signed Impressions: Service Date/Time: Thursday, September 08, 2016 23:41 - CONCLUSION: Stable noncontrast CT with no evidence of hemorrhage or acute infarction. Atrophy and chronic small vessel splenic changes remain. Sanya Cavazos MD Objective Remarks GENERAL: 75-year-old male currently orotracheally intubated and critically ill SKIN: Warm and dry. Well perfused HEAD: Atraumatic. Normocephalic. ENT: Orotracheally intubated moderate ET tube secretions NECK: Trachea midline. No thyromegaly. No neck crepitus. Right IJ is clean dry and intact. CARDIOVASCULAR: IRR. S1, S2 no S4. Without murmur RESPIRATORY: Air entry decreased bilaterally at bases, scattered rhonchi. GASTROINTESTINAL: Abdomen soft, non-tender, nondistended. No guarding. BS active. MUSCULOSKELETAL: Extremities with trace to 1+ B/L lower extremity edema. No obvious deformities. NEUROLOGICAL: Opens eyes to sternal rub. Withdraws to noxious stimulation all 4 extremities though predominantly right upper, right lower and left lower. Intermittently follows commands in all extremities except LUE. Procedures 10/03- intubation Urinary Catheter: Yes Assessment to: Continue Date of Insertion: Oct 03, 2016 Vascular Central Line Catheter: Yes Assessment to: Continue Date of Insertion: Oct 04, 2016 Line: Central Venous Catheter Side: Right Location: Internal, Jugular A/P Assessment and Plan Neuro/Psych: Left occipital, bilateral frontal parietal cerebellar CVA subacute Seizure Chronic headaches Chronic benzodiazepine use, chronic oxycodone use MRI 09/10 brain revealed left occipital, bilateral frontal parietal and cerebellar CVA likely ALFIE/FINE ARTS MODEL distribution MRI brain 10/07 - no acute findings. Residual frontal/parietal and occipital junction CVA. Significant demyelination Followed by Dr. Jeffries/neurology. 10/[address] Prajapati in view of episodes of confusion. Nonfocal. EEG 10/07 bilateral PLEDs with episodic sharp activity EEG 10/10: Ongoing seizure activity with lightening sedation Repeat EEG 10/11/16-no seizure activity, moderate encephalopathy Currently on fosphenytoin at 100 mg IV 3 times a day, levetiracetam 1500 mg IV twice a day and lacosamide 200 mg IV twice a day Dilantin level 10/11/16 9.2 -therapeutic with albumin correction Patient becomes lethargic after antiseizure medications-will discuss dose adjustments with neuro Meropenem, linezolid and famotidine all discontinued DC all continuos sedation CV: Coronary disease status post CABG ASCVD Carotid stenosis TAAA Hypertension Dyslipidemia History atrial fibrillation status post ablation 2011 Followed by cardiology. Currently off atorvastatin 40 mg daily/home medication for dyslipidemia 10/14 Resume PO Apixaban 5 mg twice a day per cardiology and aspirin 81 mg by mouth daily. Hold for tracheostomy Off amiodarone for suspected pulmonary toxicity Echocardiogram revealed EF 70%. OHS septal motion./Paradoxical, CARA 50-60 mmHg Currently labetalol 100 mg 3 times a day for hypertension. 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 Souza. Tolerating CPAP. Ventilator bundle. TP 2-4 hours Was unable to extubate due to severe neuromuscular weakness and encephalopathy and CVA. 3rd intubation. Last 10/03 Off amiodarone for suspected pulmonary toxicity Albuterol/ipratropium every 6 hours with albuterol aerosols as indicated Chest x-ray 10/08 - improved bilateral subcutaneous neck. No obvious pneumothorax. CT chest ruled out pneumothorax. Likely barotrauma from mechanical ventilation. 10/03 switched Methylprednisolone currently on 30 mg daily- ( Prednisone 40mg q day taper over's several weeks recommended by nephrology for possible pantoprazole induced interstitial nephritis) Discontinued montelukast 10 mg by mouth daily in light of possible seizure threshold lowering/rare Pulmonary following Dr. Encinas Continue antibiotics per ID Dr. Nova - recommended lung biopsy CT surgery - [employer] GI: On Suplena goal 55 cc an hour (per dietary recommendations). Hold for trach On sucralfate 1 g by mouth 4 times daily for GI prophylaxis Docusate sodium 100 mg twice a day, senna liquid 8.6 mg twice a day and polyethylene glycol 3350 17 g twice daily for bowel regimen Continue metoclopramide 5 mill grams IV every 8 hours 10/07 negative KUB. GI consulted for PEG History of hydroureter Renal ultrasound revealed no hydronephrosis Reinsert Choi-after intubation- Strict I&O's Endo: Sliding scale insulin with NovoLog with Accu-Cheks every 6 hours/low regimen Renal: Acute on chronic kidney injury Hold IV Lasix. Reconsult nephrology if creat continued to worsen. Today 1.8. IV hydration for [address] Cerda had seen before Nephrology follow-up. 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 Slowly wean steroids due to this issue as above pulmonary section. Creatinine currently 1.8. BUN slightly trending up Heme: History of colon cancer status post partial colectomy History of bladder cancer Normocytic anemia Leukocytosis Monitor CBC daily. Follow trends. Noted elevated lambda and kappa Chains/ESR likely secondary underlying acute kidney injury. Evaluated by Dr. Mccollum/hematology ID: Likely hospital-acquired pneumonia Sepsis Meropenem//linezolid 09/27 through 10/07 Currently observe off ABX Pertinent cultures 10/03-repeat blood, urine Legionella and pneumococcal antigens and sputum cultures no growth 10/03-influenza negative 09/28 - blood cultures 2 - no growth 09/22 - sputum - no growth 09/16 - blood cultures 2 - no growth Recheck urine 10/09- Betty- change choi Recheck blood cultures 2 and sputum 10/10. Repeat sputum culture today 10/13/16 Off all antibiotics per infectious disease FEN: Hypernatremia - resolving Monitor and replete electrolytes free water 200 cc every 4 hours. MSK: PT evaluate and treat Prophylaxis - GI -sucralfate - DVT - SCD/apixaban Access - Right subclavian CVL placed 09/16 - 10/04 - Right IJ CVL 10/04-10/14 Critical Care: Level 3 Patient remains critically ill. Tracheostomy 10/13. CPAP to TP today. Worsening renal function is of concern Giovani Abraham MD Oct 14, 2016 09:50
--- NOTE | 2016-10-14 10:32 | HHI.PR ---
Subjective Subjective Notes Resting in bed in no acute distress at bedside Objective Vitals/I&O Vital Signs Date Time Temp Pulse Resp B/P (MAP) Pulse Ox O2 Delivery O2 Flow Rate FiO2 10/14/16 08:21 98 45 10/14/16 03:00 91 10/14/16 03:00 Mechanical Ventilator 10/14/16 03:00 98.9 17 137/81 (99) Labs Laboratory Tests Test 10/14/16 04:15 White Blood Count 17.5 Red Blood Count 2.62 Hemoglobin 7.7 Hematocrit 24.4 Mean Corpuscular Volume 93.1 Mean Corpuscular Hemoglobin 29.2 Mean Corpuscular Hemoglobin Concent 31.4 Red Cell Distribution Width 17.9 Platelet Count 158 Mean Platelet Volume 9.0 Neutrophils (%) (Auto) 81.2 Lymphocytes (%) (Auto) 6.4 Monocytes (%) (Auto) 7.0 Eosinophils (%) (Auto) 5.0 Basophils (%) (Auto) 0.4 Neutrophils # (Auto) 14.2 Lymphocytes # (Auto) 1.1 Monocytes # (Auto) 1.2 Eosinophils # (Auto) 0.9 Basophils # (Auto) 0.1 CBC Comment DIFF FINAL Differential Comment Blood Urea Nitrogen 65 Creatinine 1.82 Random Glucose 139 Total Protein 6.1 Albumin 2.1 Calcium Level 8.4 Alkaline Phosphatase 68 Aspartate Amino Transf (AST/SGOT) 27 Alanine Aminotransferase (ALT/SGPT) 22 Total Bilirubin 0.4 Sodium Level 142 Potassium Level 3.7 Chloride Level 105 Carbon Dioxide Level 29.6 Anion Gap 7 Estimat Glomerular Filtration Rate 36 B-Type Natriuretic Peptide 275 Date/Time Source Procedure Growth Status 10/10/16 12:08 Blood Peripheral Aerobic Blood Culture - Preliminary NO GROWTH IN 3 DAYS Resulted 10/10/16 12:08 Blood Peripheral Anaerobic Blood Culture - Preliminary NO GROWTH IN 3 DAYS Resulted 09/12/16 01:00 Stool Stool Stool Occult Blood (JAME) - Final HEMOCCULT NEGATIVE Complete 10/10/16 18:15 Sputum Endotracheal Gram Stain - Final Complete 10/10/16 18:15 Sputum Endotracheal Sputum Culture - Final HEAVY GROWTH NORMAL RESPIRATORY MEL Complete 10/09/16 14:00 Urine Catheterized Urine Urine Culture - Final Betty Albicans Complete Cardiovascular: Regular Lungs: Clear Abdomen: Non-distended, Non-tender Extremities: No edema Narrative Exam trach in place without complications A/P Assessment and Plan 75 year old male s/p CABG; failed extubation three times this admission; with VDRF in need of trach placement -POD1 trach placement -Continue routine trach care -Wean vent CCM -General Surgery will sign off; Please call with questions Attending Statement patient seen and examined trach c/d/i patient on t piece Attestation The exam, history, and the medical decision-making described in the above note were completed with the assistance of the mid-level provider. I reviewed and agree with the findings presented. I attest that I had a [id number] encounter with the patient on the same day, and personally performed and documented my assessment and findings in the medical record. Herlinda Rivera Oct 14, 2016 10:32 Alvin Souza MD Oct 17, 2016 06:26
--- NOTE | 2016-10-14 11:41 | PD.CONS ---
HPI History of Present Illness This is a 75 year old male with multiple medical problems, who is currently in the ICU, being treated for left occipital, bilateral frontal parietal cerebellar CVA subacute, acute respiratory failure, pneumonia, CAD, ASCVD, HTN, Hyperlipidemia, Atrial fibrillation, acute on chronic kidney injury. He also has a history of colon cancer, S/P partial colectomy in 1999 and bladder cancer. He underwent a bedside tracheostomy yesterday with general surgery and GI has been consulted for PEG tube placement. Of note, he also has anemia and his hemoglobin has been trending down. It is currently 7.7/24.4. The nurse tells me that the patient is on Eliquis, but that it was held 48 hours for the tracheostomy, and that it was resumed today. He has received one dose of this. He currently has tube feeding going via nasal gastric tube and he is tolerating this. The rigging up man is following and has recommended Suplena at 55cc /hr. GI has been consulted for EGD with peg tube placement. The is at the bedside and I spoke to her regarding procedure, risks, and benefits and she would like to proceed. (Rebecca Cortes) PFSH Past Medical History CVA while in surgery 10 days ago, with some left sided weakness HTN CAD Afib with ablation Hypertension Hyperlipidemia Colon cancer status post resection 1999 AAA status post repair 2008 [facility] Chest aortic aneurysm ascending about 5 cm per the patient Bladder Cancer Past Surgical History CABG 08/26/16 Ablation for Afib Colectomy Carotid endarterectomy Bladder cancer removal 2015 Prior pacemaker , status post removal due to pocket infection 2010 (Rebecca Cortes) Coded Allergies: atorvastatin (Verified Allergy, Severe, back pain and chest pain, 09/21/16) PATIENT REPORTS HE CAN NOT TAKE ANY STATINS PERIOD. HE LOSES USE OF HIS LEGS pantoprazole (Verified Allergy, Severe, INTERSTITIAL NEPHRITIS, 09/25/16) pravastatin (Verified Allergy, Severe, 09/21/16) PATIENT REPORTS HE CAN NOT TAKE ANY STATINS PERIOD. HE LOSES USE OF HIS LEGS simvastatin (Verified Allergy, Severe, body aches, 09/21/16) PATIENT REPORTS HE CAN NOT TAKE ANY STATINS PERIOD. HE LOSES USE OF HIS LEGS Medications Allergies Coded Allergies Type Severity Reaction Last Updated Verified atorvastatin Allergy Severe back pain and chest pain 09/21/16 Yes pantoprazole Allergy Severe INTERSTITIAL NEPHRITIS 09/25/16 Yes pravastatin Allergy Severe 09/21/16 Yes simvastatin Allergy Severe body aches 09/21/16 Yes Active Scripts Medications Dose Route/Sig Max Daily Dose Days Date Category Oxycodone (Oxycodone HCl) 5 Mg Cap Mg PO Q4H PRN 09/08/16 Reported Aspirin 325 Mg Tab 325 Mg PO ONCE 09/08/16 Reported Aspirin 81 Mg Chew 81 Mg CHEW DAILY 08/30/16 Reported Thera M Plus (Multivitamins/Minerals Therapeutic) 1 Tab 1 Tab PO DAILY 08/30/16 Rx Metoprolol Tartrate 25 Mg Tab 12.5 Mg PO BID 08/30/16 Rx Dok (Docusate Sodium) 100 Mg Cap 100 Mg PO BID PRN 08/30/16 Rx Eliquis (Apixaban) 2.5 Mg Tab 2.5 Mg PO BID 08/30/16 Rx Xanax (Alprazolam) 0.25 Mg Tab 0.25 Mg PO Q6H PRN 08/24/16 Reported Family History Family history of coronary artery disease Social History Tobacco use: Quit 19 years ago Alcohol use: rarely Illicit drug use: Denies (Rebecca Cortes) Review of Systems ROS Unable to obtain (Rebecca Cortes) GI Exam Vitals I&O Vital Signs Date Time Temp Pulse Resp B/P (MAP) Pulse Ox O2 Delivery O2 Flow Rate FiO2 10/14/16 08:21 98 45 10/14/16 07:00 97 10/14/16 07:00 45 10/14/16 07:00 94 Mechanical Ventilator 45 10/14/16 04:41 98 45 10/14/16 03:00 91 10/14/16 03:00 45 10/14/16 03:00 95 Mechanical Ventilator 45 10/14/16 03:00 98.9 82 17 137/81 (99) 95 10/14/16 01:16 99 45 10/13/16 23:00 95 Mechanical Ventilator 50 10/13/16 23:00 82 10/13/16 23:00 99.7 82 17 111/70 (84) 96 10/13/16 23:00 50 10/13/16 20:40 95 50 10/13/16 19:00 96 Mechanical Ventilator 50 10/13/16 19:00 99.2 85 16 136/83 (100) 96 10/13/16 19:00 50 10/13/16 19:00 85 10/13/16 16:09 98 50 10/13/16 15:00 89 10/13/16 15:00 50 10/13/16 15:00 99.2 84 21 152/95 (114) 99 10/13/16 15:00 90 Mechanical Ventilator 50 Trach Collar 10/13/16 14:50 21 10/13/16 12:45 100 100 I/O 10/13/16 10/13/16 10/13/16 10/14/16 10/14/16 10/14/16 07:00 15:00 23:00 07:00 15:00 23:00 Intake Total 1350 ml 105 ml 450 ml 1294 ml Output Total 750 ml 1125 ml 850 ml Balance 600 ml 105 ml -675 ml 444 ml IV Total 500 ml 105 ml 50 ml 300 ml Tube Feeding 330 ml 394 ml Tube Irrigant 120 ml Other 400 ml 400 ml 600 ml Output Urine Total 450 ml 1025 ml 650 ml Stool Total 300 ml 100 ml 200 ml Imaging Last Impressions Chest X-Ray 10/14/16 0600 Signed Impressions: Service Date/Time: October 06:05 - CONCLUSION: 1. Stable tubes and lines, as above. 2. Stable diffuse bilateral mixed interstitial and airspace disease. 3. No significant interval change. Richardson Haney MD Brain MRI 10/07/16 0000 Signed Impressions: Service Date/Time: September 21:45 - CONCLUSION: 1. Residual small areas of infarction seen bilaterally. There are fewer areas of signal abnormality seen on the diffusion-weighted images on the current exam. New areas of infarction are not present. 2. Areas of demyelination throughout the cerebral and pontine white matter likely from small vessel ischemic change. 3. Fluid in the mastoid air cells. Jarad Cat MD Abdomen X-Ray 10/07/16 0000 Signed Impressions: Service Date/Time: September 08:32 - CONCLUSION: Unremarkable bowel gas pattern. Sanya Cavazos MD Neck CT 10/05/16 0000 Signed Impressions: Service Date/Time: Wednesday, October 05, 2016 10:41 - CONCLUSION: Extensive subcutaneous emphysema. Jarad De Jesus MD Chest CT 10/05/16 0000 Signed Impressions: Service Date/Time: Wednesday, October 05, 2016 10:43 - CONCLUSION: Prior median sternotomy cardiac surgery atherosclerotic cardiovascular disease with left ventricular cardiomegaly and evidence of interstitial alveolar edema in both lungs consistent with CHF. Support tubes in place with subcutaneous emphysema in the soft tissues of neck bilaterally and supraclavicular. There is no evidence of pneumothorax. Lele Escudero MD Head Magnetic Resonance Angiography 09/10/16 1028 Signed Impressions: Service Date/Time: Saturday, September 10, 2016 10:57 - CONCLUSION: 1. Unremarkable MRA examination without evidence for large vessel occlusion, aneurysm, or vascular malformation. Richardson Haney MD Carotid Artery Ultrasound 09/09/16 1028 Signed Impressions: Service Date/Time: September 10:43 - CONCLUSION: 1. Moderate visible plaque without hemodynamically significant stenosis identified. No significant change from August 25. Amado Crain MD Renal Ultrasound 09/09/16 0000 Signed Impressions: Service Date/Time: September 15:41 - CONCLUSION: 1. Cortical atrophy with small bilateral renal cysts. No hydronephrosis. Amado Crain MD Head CT 09/08/16 2251 Signed Impressions: Service Date/Time: Thursday, September 08, 2016 23:41 - CONCLUSION: Stable noncontrast CT with no evidence of hemorrhage or acute infarction. Atrophy and chronic small vessel splenic changes remain. Sanya Cavazos MD Laboratory Test 10/14/16 04:15 White Blood Count 17.5 TH/MM3 Red Blood Count 2.62 MIL/MM3 Hemoglobin 7.7 GM/DL Hematocrit 24.4 % Mean Corpuscular Volume 93.1 FL Mean Corpuscular Hemoglobin 29.2 PG Mean Corpuscular Hemoglobin Concent 31.4 % Red Cell Distribution Width 17.9 % Platelet Count 158 TH/MM3 Mean Platelet Volume 9.0 FL Neutrophils (%) (Auto) 81.2 % Lymphocytes (%) (Auto) 6.4 % Monocytes (%) (Auto) 7.0 % Eosinophils (%) (Auto) 5.0 % Basophils (%) (Auto) 0.4 % Neutrophils # (Auto) 14.2 TH/MM3 Lymphocytes # (Auto) 1.1 TH/MM3 Monocytes # (Auto) 1.2 TH/MM3 Eosinophils # (Auto) 0.9 TH/MM3 Basophils # (Auto) 0.1 TH/MM3 CBC Comment DIFF FINAL Differential Comment Blood Urea Nitrogen 65 MG/DL Creatinine 1.82 MG/DL Random Glucose 139 MG/DL Total Protein 6.1 GM/DL Albumin 2.1 GM/DL Calcium Level 8.4 MG/DL Alkaline Phosphatase 68 U/L Aspartate Amino Transf (AST/SGOT) 27 U/L Alanine Aminotransferase (ALT/SGPT) 22 U/L Total Bilirubin 0.4 MG/DL Sodium Level 142 MEQ/L Potassium Level 3.7 MEQ/L Chloride Level 105 MEQ/L Carbon Dioxide Level 29.6 MEQ/L Anion Gap 7 MEQ/L Estimat Glomerular Filtration Rate 36 ML/MIN B-Type Natriuretic Peptide 275 PG/ML Date/Time Source Procedure Growth Status 10/10/16 12:08 Blood Peripheral Aerobic Blood Culture - Preliminary NO GROWTH IN 4 DAYS Resulted 10/10/16 12:08 Blood Peripheral Anaerobic Blood Culture - Preliminary NO GROWTH IN 4 DAYS Resulted 09/12/16 01:00 Stool Stool Stool Occult Blood (JAME) - Final HEMOCCULT NEGATIVE Complete 10/10/16 18:15 Sputum Endotracheal Gram Stain - Final Complete 10/10/16 18:15 Sputum Endotracheal Sputum Culture - Final HEAVY GROWTH NORMAL RESPIRATORY JAYNA Complete 10/09/16 14:00 Urine Catheterized Urine Urine Culture - Final Betty Albicans Complete Physical Examination HEENT: Normocephalic; atraumatic; no jaundice. CHEST: Course breath sounds, tracheostomy to CPAP CARDIAC: Irregular ABDOMEN: Soft, nondistended, nontender; no hepatosplenomegaly; bowel sounds are present in all four quadrants. NGT with TF EXTREMITIES: No clubbing, cyanosis, or edema. SKIN: Normal; no rash; no jaundice. TRAINING MANAGER: Opens eyes to pain, withdraws, does not follow commands (Rebecca Cortes) Assessment and Plan Plan ASSESSMENT: - Dysphagia, Malnutrition. Pt hospitalized for left occipital, bilateral frontal parietal cerebellar CVA subacute, s/p tracheostomy for acute respiratory failure/need for prolonged ventilation. Special Education Instructor recommends Suplena at 55cc/hr. GI has been consulted for EGD with peg tube placement. The is at the bedside and I spoke to her regarding procedure, risks, and benefits and she would like to proceed. Will hold eliquis and plan for tomorrow - Anemia with hemoglobin trending down. 7.7/24.4. Plan for egd tomorrow - Respiratory failure, PNA. S/P tracheostomy. CPAP. Steroids. - Atrial fibrillation, subacute cva. Eliquis restarted today, per nurse had one dose - Leukocytosis, low grade fever. BCx no growth 4 days (10/10). Heavy growth normal respiratory jayna (10/10), Betty albicans in urine (10/09) Per attending. - ANNY, with electrolyte abnormalities. - CAD, HTN, Hyperlipidemia per attending PLAN: - PLAN for EGD with peg tube placement - Obtain consents - NPO after MN - Ancef 1 gram IVPB manager front office - Hold Eliquis - Special Education Instructor recommends Suplena at 50cc/hr - Supportive care - Further recommendations to follow based on results of above - Pt seen and examined by Dr. Spencer and myself and this note is written on his behalf (Rebecca Cortes) Plan Patient was seen and examined, agree with the above note, anticoagulation on hold today, plan EGD with PEG tube placement tomorrow. (Jasmeet Spencer MD) Rebecca Cortes Oct 14, 2016 11:41 Jasmeet Spencer MD Oct 14, 2016 21:58
[2016-10-14] MEDS: SODIUM CHLOR 0.9% 1000 ML INJ 1,000 ML IV SCH (12:17)
[2016-10-14] MEDS: SODIUM CHLORIDE 0.9% FLUSH 10 ML FLUSH IVF SCH (12:20)
--- NOTE | 2016-10-14 18:34 | HHI.PR ---
Subjective Remarks Had a trach done .Now on CPAP at 45 %. Very lethargic . Will respond to commands..Chest X Ray is better On seizure meds. Off sedation. Objective Vital Signs Date Time Temp Pulse Resp B/P (MAP) Pulse Ox O2 Delivery O2 Flow Rate FiO2 10/14/16 16:19 92 50 10/14/16 15:22 98.5 82 25 134/69 (90) 97 10/14/16 15:00 82 10/14/16 15:00 97 T-Piece 50 10/14/16 13:20 97 T-piece 6.00 50 10/14/16 11:07 40 10/14/16 11:07 96 Mechanical Ventilator 40 10/14/16 11:07 86 10/14/16 11:00 98.2 89 25 127/75 (92) 97 10/14/16 08:21 98 45 10/14/16 07:00 100.2 97 21 123/70 (87) 94 10/14/16 07:00 97 10/14/16 07:00 45 10/14/16 07:00 94 Mechanical Ventilator 45 10/14/16 04:41 98 45 10/14/16 03:00 91 10/14/16 03:00 45 10/14/16 03:00 95 Mechanical Ventilator 45 10/14/16 03:00 98.9 82 17 137/81 (99) 95 10/14/16 01:16 99 45 10/13/16 23:00 95 Mechanical Ventilator 50 10/13/16 23:00 82 10/13/16 23:00 99.7 82 17 111/70 (84) 96 10/13/16 23:00 50 10/13/16 20:40 95 50 10/13/16 19:00 96 Mechanical Ventilator 50 10/13/16 19:00 99.2 85 16 136/83 (100) 96 10/13/16 19:00 50 10/13/16 19:00 85 I/O 10/13/16 10/13/16 10/13/16 10/14/16 10/14/16 10/14/16 07:00 15:00 23:00 07:00 15:00 23:00 Intake Total 1350 ml 105 ml 450 ml 1294 ml Output Total 750 ml 1125 ml 850 ml Balance 600 ml 105 ml -675 ml 444 ml IV Total 500 ml 105 ml 50 ml 300 ml Tube Feeding 330 ml 394 ml Tube Irrigant 120 ml Other 400 ml 400 ml 600 ml Output Urine Total 450 ml 1025 ml 650 ml Stool Total 300 ml 100 ml 200 ml Result Diagram: 10/14/1641410/14/16414 Objective Remarks GENERAL: This moderately overweight elderly man , on the vent. HEENT: Head is normocephalic. Pupils are reactive. Tongue is moist. Throat clear NECK: No venous distention. No thyroid enlargement. CHEST: Equal movements with diminished breath sounds at the bases with Occ basal crackles.Few wheezes. HEART: Sounds are irregular S1-S2. No murmur. ABDOMEN: Soft. Protuberant without masses. No organomegaly. EXTREMITIES: Decreased pulses. min Edema SKIN: warm. Neuro : lethargic.Moves arm and feet. Assessment and Plan Assessment and Plan IMPRESSION 1. Acute respiratory failure.Resolving 2. Fluid overload status with pulmonary edema. 3. Acute kidney failure.Resolving 4. History of cerebrovascular accident. 5. Bibasilar atelectasis with possible pneumonia. 6. History of colon cancer and bladder cancer. 7. Possible Hypersensitivity Pneumonia or Edema Plan : 1. CPAP today for up to 6 hrs FIO2 45 % 2. Place on A/C rate 10 at night. 3. Nebs qid ,Duoneb. 4. Trach lavage and suction 5. Antibiotics per ID 6. Cont Keppra/Dilantin 7. solumedrol IV 20 mg daily. 8. No sedation Jaime Encinas MD Oct 14, 2016 18:34
[2016-10-14] MEDS: RESP: ALBUTEROL 2.5 MG/3 ML NEB (PRN) NEB (20:04)
[2016-10-15] VITALS (21 sets, daily range): BP systolic 124–160; BP diastolic 66–94; PULSE 88–103; RESP 8–25; TEMP 98.1–100; O2SAT 83–99
[2016-10-15] MEDS: LACOSAMIDE INJ 200 MG in SODIUM CHLORIDE 0.9% INJ 100 ML IV SCH ×2 (00:17→17:05)
[2016-10-15] MEDS: SUCRALFATE 1 GM/10 ML CUP NG SCH ×3 (00:42→12:00)
[2016-10-15] MEDS: FREE WATER G-TUBE SCH ×5 (04:00→20:00)
[2016-10-15] MEDS ORDERED: LACTATED RINGER'S 1000 ML IV PRN (06:00)
[2016-10-15] MEDS ORDERED: POVIDONE IODINE 5% (ANTISEPSIS KIT) 4 APPLICATIONS EACH NARE PRN (06:00)
[2016-10-15] MEDS ORDERED: CHLORHEXIDINE GLUCONATE 2 % 1 PACK (2 CLOTHS) TOPICAL PRN (06:00)
[2016-10-15] MEDS: INSULIN ASPART SUPPLEMENTAL SCALE SQ SCH ×3 (06:00→12:00)
[2016-10-15] MEDS ORDERED: SODIUM CHLORID 0.9% 500 ML IV PRN (06:00)
[2016-10-15] MEDS: SODIUM CHLOR 0.9% 1000 ML INJ 1,000 ML IV SCH (06:00)
[2016-10-15] MEDS: METOCLOPRAMIDE HCL 10 MG/2 ML VIAL IV PUSH SCH ×2 (06:23→21:53)
[2016-10-15] MEDS: FOSPHENYTOIN SODIUM 100 MG PE/2 ML VIAL IV SCH (06:23)
[2016-10-15] MEDS: ARTIFICIAL TEARS OPTH SOLN 15 ML BTL EACH EYE SCH ×3 (06:23→21:55)
[2016-10-15] MEDS: LABETALOL HCL 100 MG TAB PO SCH (06:38)
[2016-10-15 06:51] LABS: AUTOMATED NEUTROPHIL # 10.4 TH/MM3 (1.8-7.7); BASOPHIL # 0.1 TH/MM3 (0-0.2); BASOPHIL % 0.4 % (0.0-2.0); HEMATOCRIT 23.4 % (39.0-51.0); HEMO FLAGS DIFF FINAL; LYMPH % 8.7 % (9.0-44.0); LYMPHOCYTE # 1.2 TH/MM3 (1.0-4.8); MEAN CELL VOLUME 94.7 FL (80.0-100.0); MEAN CORPUSCULAR HEMOGLOBIN 29.5 PG (27.0-34.0); MEAN CORPUSCULAR HGB CONC 31.1 % (32.0-36.0); MONO % 7.6 % (0.0-8.0); NEUT % 76.3 % (16.0-70.0); PLATELET COUNT 149 TH/MM3 (150-450); RED BLOOD COUNT 2.47 MIL/MM3 (4.50-5.90); WHITE BLOOD COUNT 13.7 TH/MM3 (4.0-11.0)
[2016-10-15 07:13] LABS: ALT (GPT) 24 U/L (12-78); ANION GAP 8 MEQ/L (5-15); AST (GOT) 25 U/L (15-37); BICARBONATE 28.2 MEQ/L (21.0-32.0); BLOOD UREA NITROGEN 54 MG/DL (7-18); CHLORIDE 107 MEQ/L (98-107); GLOMERULAR FILTRATION RATE 46 ML/MIN (>89); POTASSIUM 3.4 MEQ/L (3.5-5.1); SODIUM (NA) 143 MEQ/L (136-145)
[2016-10-15 07:15] LABS: ALKALINE PHOSPHATASE 69 U/L (45-117); TOTAL BILIRUBIN ADULT 0.3 MG/DL (0.2-1.0)
--- NOTE | 2016-10-15 08:03 | HHI.CCPN ---
Subjective Remarks/Hospital Course 75 y/o man now about 4 weeks following CABG complicated by CVA. Presented back 08/28 with new onset right arm weakness. Hospital course has been complicated by CKD and fluid overload. We have attempted BiPAP for several hours but he remains in distress and although oxygenation is acceptable work of breathing is excessive. Worrisome increasing metabolic acidosis. 09/17: Gas exchange much improved. BNP 1681, ScVO2 71%. It appears that cardiac output is more than adequate for peripheral needs and the primary pathology is renal failure and fluid overload. If we can manage volume I can probably get him extubated. 09/18: Diffuse crackles. Needs to be diuresed today. Tolerating extubation but at risk for hypoxemic failure again. 09/20 - Re consulted due to worsening hypoxia. Currently on nonrebreather mask. Chest x-ray shows worsening consolidation right lobe creatinine slightly improved over. Family request transfer to [facility] however refused. We'll attempt to decipher status currently unknown. 09/21: Remains on nonrebreather mask. Saturations between 89-97%. Chest x-ray unchanged. Not tachypnea. Not confused. 09/22: Radiographic studies show diffuse interstitial process with skip areas - more indicative of infectious/inflammatory process. Sats 85% with labored pattern. Required intubation for deteriorating respiratory status. 09/23: Gas exchange improving. Pulmonary infiltrates remain very concerning - if most recent sputum is benign I would not be opposed to steroids. 09/24: Extubated today. On 3 L nasal cannula. Passed swallow evaluation. Appropriate interactive status post extubation. 09/29: Critical care reconsult requested by Dr. Meza for respiratory failure. Patient reportedly was on BiPAP this morning. He was given additional diuretic earlier as he was short of breath. With this he seems to have improved somewhat and has been on a nonrebreather facemask for more than a few hours. He states that he is breathing much better. Patient being adamant about not using BiPAP. I had a detailed conversation about the importance of using BiPAP especially at night in view of his history of sleep apnea. Patient did not appear to be in acute distress though he was requiring a nonrebreather facemask at the time of my evaluation. No urgent need for BiPAP or intubation at this time. In fact patient is stating that he is breathing much better than this morning. 09/30: Remains on nonrebreather facemask. Refused BiPAP at night. States that he is breathing better today than yesterday. 10/01: 02 30 L/m 100% FiO2. O2 sats borderline. Episodes of confusion. When I evaluated the patient he was sitting up in bed and was able to converse. Not using accessory muscles of respirations currently. 10/02: The patient is alert and oriented currently has been weaned down to high flow nasal cannula with an FiO2 of 65%, maintaining O2 saturation to 95%. Patient is appropriately conversant no episodes of confusion noted. 10/03: Yesterday, the patient received 2 units of packed red blood cells with Furosemide dosing in between transfusion of units, with diuresis of approximately 2900 cc. Last night, the patient was noted to have respiratory decompensation, continued refusal to utilize BiPAP during the night. FiO2 requirements increased to 100% this a.m., on high flow nasal cannula, with noted accessory muscle use and inability to speak in complete sentences secondary to dyspnea. The patient received additional dose of Lasix this a.m. , chest x-ray appeared to be worsened this a.m. .Patient subsequently became hypoxic requiring emergent intubation this a.m.., O2 sat saturation 80s on 100 % FiO2. 10/04: Intubated yesterday due to general and hypoxia. Diuresed with 80 mg furosemide 1. Tmax 99.8. Currently 97.8. Tube feeds initiated. No bowel movement. 10/05: Afebrile. Subcutaneous air in neck bilaterally on chest x-ray today. No obvious pneumothorax. No pneumothorax on chest x-ray yesterday post central line placement. Tolerating tube feeding. No bowel movement. 10/06: Currently resting in bed. Subcutaneous air neck much improved. X-ray improved. FiO2 down to 40%. Tolerating tube feeding. One bowel movement. 10/07: Afebrile. Currently on propofol drip at 40 mg/kg per minute. X-ray has improved. Currently not tolerating tube feeds. 2 bowel movements documented. Sedation vacation today ordered. 10/08: Afebrile. Saturations 95% on FiO2 50%. MRI brain showed no acute findings last night. EEG repeated for today. PLEDs on previous EEG. Vimpat along with fosphenytoin added per neurology. Arousable on the ventilator. Tube feeds to be resumed today. Discussed with at length yesterday 10/09: MAXIMUM TEMPERATURE 99.5. Currently 99.3. Tube feeds currently at 20 cc an hour. Minimal residuals. Arousable and intermittently follows commands mostly with right upper extremity. 10/10: Febrile. Tube feeds currently at 25 cc an hour. Minimal residuals. Positive BM. Not arousable this AM. EEG still reveals underlying sharp spikes. Vimpat increased yesterday. Subjective: 10/11: Remains intubated tachypneic on CPAP 11/11, Lethargic not consistently following commands. After being placed on 06/11 patient is more tachypneic, breathing in mid 30s 10/12: Remains intubated off sedation. Very lethargic, copious oral secretions and moderate ET tube secretions. We'll discuss with general surgery regarding tracheostomy today. 10/11/16 did not show seizure activity but moderate encephalopathy 10/13: Remains off sedation quite lethargic. We except to sternal rub. We believe follows commands on right upper and bilateral lower extremities. Low- grade fever. Tracheostomy planned for afternoon 10/14: s/p trach yesterday. Remains lethargic, but follows commands on the right side. Increase in white count noted. Creatinine increasing now 1.8. Will discontinue IV Lasix and give IV hydration for 24 hours. Attempt T piece 2-4 hours 10/15: s/p trach yesterday. Tolerated TP 2 hours. Remains lethargic, weakly follows commands. PEG today. Cr improved from 1.8 to 1.5 with gentle hydration Objective Vital Signs Date Time Temp Pulse Resp B/P (MAP) Pulse Ox O2 Delivery O2 Flow Rate FiO2 10/15/16 05:16 94 50 10/15/16 03:00 98.8 88 19 128/75 (92) 10/15/16 03:00 Mechanical Ventilator 10/14/16 13:20 6.00 Intake and Output 10/15/16 10/15/16 10/15/16 07:59 15:59 23:59 Intake Total 2100 ml Output Total 1050 ml Balance 1050 ml Result Diagram: 10/15/16 0627 10/15/16 0615 Imaging Last Impressions Chest X-Ray 10/10/16 0600 Signed Impressions: Service Date/Time: Monday, October 10, 2016 04:25 - CONCLUSION: 1. Support apparatus in satisfactory position. Patchy airspace and interstitial changes similar to October 2. Amado Crain MD Brain MRI 10/07/16 0000 Signed Impressions: Service Date/Time: September 21:45 - CONCLUSION: 1. Residual small areas of infarction seen bilaterally. There are fewer areas of signal abnormality seen on the diffusion-weighted images on the current exam. New areas of infarction are not present. 2. Areas of demyelination throughout the cerebral and pontine white matter likely from small vessel ischemic change. 3. Fluid in the mastoid air cells. Jarad Cat MD Abdomen X-Ray 10/07/16 0000 Signed Impressions: Service Date/Time: September 08:32 - CONCLUSION: Unremarkable bowel gas pattern. Sanya Cavazos MD Neck CT 10/05/16 0000 Signed Impressions: Service Date/Time: Wednesday, October 05, 2016 10:41 - CONCLUSION: Extensive subcutaneous emphysema. Jarad De Jesus MD Chest CT 10/05/16 0000 Signed Impressions: Service Date/Time: Wednesday, October 05, 2016 10:43 - CONCLUSION: Prior median sternotomy cardiac surgery atherosclerotic cardiovascular disease with left ventricular cardiomegaly and evidence of interstitial alveolar edema in both lungs consistent with CHF. Support tubes in place with subcutaneous emphysema in the soft tissues of neck bilaterally and supraclavicular. There is no evidence of pneumothorax. Lele Escudero MD Head Magnetic Resonance Angiography 09/10/16 1028 Signed Impressions: Service Date/Time: Saturday, September 10, 2016 10:57 - CONCLUSION: 1. Unremarkable MRA examination without evidence for large vessel occlusion, aneurysm, or vascular malformation. Richardson Haney MD Carotid Artery Ultrasound 09/09/16 1028 Signed Impressions: Service Date/Time: September 10:43 - CONCLUSION: 1. Moderate visible plaque without hemodynamically significant stenosis identified. No significant change from August 25. Amado Crain MD Renal Ultrasound 09/09/16 0000 Signed Impressions: Service Date/Time: September 15:41 - CONCLUSION: 1. Cortical atrophy with small bilateral renal cysts. No hydronephrosis. Amado Crain MD Head CT 09/08/16 625 Signed Impressions: Service Date/Time: Thursday, September 08, 2016 23:41 - CONCLUSION: Stable noncontrast CT with no evidence of hemorrhage or acute infarction. Atrophy and chronic small vessel splenic changes remain. Sanya Cavazos MD Objective Remarks GENERAL: 75-year-old male currently on vent via trach SKIN: Warm and dry. Well perfused HEAD: Atraumatic. Normocephalic. ENT: Oral cavity is dry. NECK: Trachea midline. Trach site clean, dry CARDIOVASCULAR: IRR. S1, S2 no S4. Without murmur RESPIRATORY: Air entry decreased bilaterally at bases, scattered rhonchi. GASTROINTESTINAL: Abdomen soft, non-tender, nondistended. No guarding. BS active. MUSCULOSKELETAL: Extremities with trace to 1+ B/L lower extremity edema. No obvious deformities. NEUROLOGICAL: Opens eyes to command. Follows commands very weakly in all extremities except LUE. Procedures 10/03- intubation Date of Insertion: Oct 03, 2016 Date of Insertion: Oct 04, 2016 Line: Central Venous Catheter Side: Right Location: Internal, Jugular A/P Assessment and Plan Neuro/Psych: Left occipital, bilateral frontal parietal cerebellar CVA subacute Seizure Encephalopathy Chronic headaches Chronic benzodiazepine use, chronic oxycodone use MRI 09/10 brain revealed left occipital, bilateral frontal parietal and cerebellar CVA likely ALFIE/HAND I TUBE BENDER distribution MRI brain 10/07 - Residual frontal/parietal and occipital junction CVA. Significant demyelination Followed by Dr. Jeffries/neurology. 10/[address] Prajapati in view of episodes of confusion. Nonfocal. EEG 10/07 bilateral PLEDs with episodic sharp activity EEG 10/10: Ongoing seizure activity with lightening sedation Repeat EEG 10/11/16-no seizure activity, moderate encephalopathy On fosphenytoin at 100 mg IV 3 times a day, levetiracetam 1500 mg IV twice a day and lacosamide 200 mg IV twice a day Dilantin level 10/11/16 9.3 -therapeutic with albumin correction Patient becomes lethargic after antiseizure medications- dose adjustments per neuro Meropenem, linezolid and famotidine all discontinued Off all continuos sedation CV: Coronary disease status post CABG ASCVD Carotid stenosis TAAA Hypertension Dyslipidemia History atrial fibrillation status post ablation 2011 Followed by cardiology. Currently off atorvastatin 40 mg daily/home medication for dyslipidemia (reported ? statin induced myopathy) 10/14 Resumed PO Apixaban 5 mg twice a day per cardiology and aspirin 81 mg by mouth daily. Hold for PEG today Off amiodarone for suspected pulmonary toxicity Echocardiogram revealed EF 70%. OHS septal motion./Paradoxical, CARA 50-60 mmHg Currently labetalol 100 mg 3 times a day for hypertension. 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 Souza. Tolerating CPAP. Ventilator bundle. TP 8-10 hours from today Was unable to extubate due to severe neuromuscular weakness and encephalopathy and CVA. 3rd intubation. Last 10/03 Off amiodarone for suspected pulmonary toxicity Albuterol/ipratropium every 6 hours with albuterol aerosols as indicated Chest x-ray 10/08 - improved bilateral subcutaneous emphysema neck. No obvious pneumothorax. CT chest ruled out pneumothorax. Likely barotrauma from mechanical ventilation. Methylprednisolone currently on 30 mg daily- ( Prednisone 40mg q day taper over' s several weeks recommended by nephrology for possible pantoprazole induced interstitial nephritis) Discontinued montelukast 10 mg by mouth daily in light of possible seizure threshold lowering/rare Pulmonary following Dr. Encinas Continue antibiotics per ID Dr. Nova - recommended lung biopsy. Patient showing clinical improvement CT surgery - [facility] GI: On Suplena goal 55 cc an hour (per dietary recommendations). Hold for PEG today On sucralfate 1 g by mouth 4 times daily for GI prophylaxis Docusate sodium 100 mg twice a day, senna liquid 8.6 mg twice a day and polyethylene glycol 3350 17 g twice daily for bowel regimen Metoclopramide 5 mill grams IV every 8 hours History of hydroureter Renal ultrasound revealed no hydronephrosis Reinsert Choi-after intubation- Strict I&O's Endo: Sliding scale insulin with NovoLog with Accu-Cheks every 6 hours/low regimen Renal: Acute on chronic kidney injury Holding IV Lasix. Reconsult nephrology if creat continued to worsen. Today 1.5 from 1.8. IV hydration for additional [address] 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 Slowly wean steroids due to this issue as above pulmonary section. Creatinine currently 1.5. BUN slightly improved Heme: History of colon cancer status post partial colectomy History of bladder cancer Normocytic anemia Leukocytosis Monitor CBC daily. Follow trends. Transfuse 1 unit of PRBC today in anticipation of PEG Noted elevated lambda and kappa Chains/ESR likely secondary underlying acute kidney injury. Evaluated by Dr. Mccollum/hematology ID: Likely hospital-acquired pneumonia Sepsis Meropenem//linezolid 09/27 through 10/07 Currently observe off ABX Pertinent cultures 10/03-repeat blood, urine Legionella and pneumococcal antigens and sputum cultures no growth 10/03-influenza negative 09/28 - blood cultures 2 - no growth 09/22 - sputum - no growth 09/16 - blood cultures 2 - no growth Recheck urine 10/09- Betty- changed choi Recheck blood cultures 2 and sputum 10/10. Repeat sputum culture 10/13/16 neg to date Off all antibiotics per infectious disease FEN: Hypernatremia - resolving Monitor and replete electrolytes free water 200 cc every 4 hours. MSK: PT evaluate and treat Prophylaxis - GI -sucralfate - DVT - SCD/apixaban Access - Right subclavian CVL placed 09/16 - 10/04 - Right IJ CVL 10/04-10/14 Critical Care: Level 3 Tracheostomy 10/13. PEG today. CPAP to TP Giovani Abraham MD Oct 15, 2016 08:03
[2016-10-15] MEDS: SODIUM CHLORIDE 0.9% FLUSH 10 ML FLUSH IVF SCH (09:00)
[2016-10-15] MEDS: POLYETHYLENE GLYCOL 17 GM PKG NG SCH ×2 (09:00→21:00)
[2016-10-15] MEDS: DOCUSATE SODIUM 100 MG/10 ML UDC NG SCH ×2 (09:00→21:47)
[2016-10-15] MEDS: CALCIUM ACETATE 667 MG CAP PO SCH (09:00)
[2016-10-15] MEDS: SENNOSIDES SYRUP 8.8 MG/5 ML CUP NG SCH ×2 (09:00→21:00)
[2016-10-15] MEDS: levETIRAcetam INJ 500 MG in SODIUM CHLORIDE 0.9% INJ 100 ML IV SCH ×2 (10:27→21:47)
[2016-10-15] MEDS: methylPREDNISolone SOD SUCC 40 MG/1 ML VIAL IV PUSH SCH (10:27)
[2016-10-15] MEDS: SODIUM CHLORIDE 0.9% FLUSH 10 ML FLUSH IV FLUSH SCH ×2 (10:27→21:00)
[2016-10-15] MEDS: CHLORHEXIDINE 0.12% (ORAL KIT) 15 ML CUP MT SCH ×2 (10:28→20:00)
[2016-10-15] MEDS: POTASSIUM CHLOR 20 MEQ PREMIX 100 ML IV SCH ×2 (11:17→13:00)
[2016-10-15] MEDS ORDERED: ceFAZolin INJ 1,000 MG VIAL ONE (12:14)
--- NOTE | 2016-10-15 12:39 | GIPROC ---
[facility] [address] [facility]. [facility], [address] EGD WITH PEG PROCEDURE REPORT EXAM DATE: 10/15/2016 PATIENT NAME: Jarad Hartley MR#: [id number] BIRTHDATE: 1940 ATTENDING: Jasmeet Spencer MD ORDER #: [id number] SLIPPER MAKER: Gracie Tapia and Maulik Lorenzo STATUS: inpatient INDICATIONS: The patient is a 75 yr old male here for an EGD with PEG due to dysphagia PROCEDURE PERFORMED: EGD with PEG placement MEDICATIONS: Per Anesthesia and None. TOPICAL ANESTHETIC: none CONSENT: The patient understands the risks and benefits of the procedure and understands that these risks include, but are not limited to: sedation, allergic reaction, infection, perforation and/or bleeding. Alternative means of evaluation and treatment include, among others: physical exam, x-rays, and/or surgical intervention. The patient elects to proceed with this endoscopic procedure. medical equipment was checked for proper function. Hand hygiene and appropriate measures for infection prevention was taken. After the risks, benefits and alternatives of the procedure were thoroughly explained, Informed consent was verified, confirmed and timeout was successfully executed by the treatment team. The patient was anesthetized with topical anesthesia and the Pentax [id number] endoscope was introduced through the mouth and advanced to the second portion of the duodenum. The instrument was slowly withdrawn as the mucosa was fully examined. Moderate gastritis was found in the body and the antrum of the stomach. The stomach was then inflated with air, and by a combination of transillumination and manual palpation, the site for the gastrostomy tube placement was selected and marked on the anterior abdominal wall. The skin of the anterior abdomen was surgically prepped and draped with sterile towels. Utilizing strict sterile technique, the selected site was then anesthetized with 1% xylocaine by injection into the skin and subcutaneous tissue. A 1 cm incision was made through the skin and subcutaneous tissue, and the needle/cannula assembly was then passed through the abdominal wall and through the anterior wall of the stomach, maintaining visualization with the endoscope. A snare device previously placed through the instrument channel was then opened and placed around the cannula, the needle was removed, and the insertion wire was passed through the cannula and into the stomach lumen. The snare was then loosened from the cannula, and repositioned to snare the insertion wire. The snare was then pulled up to the endoscope distal tip, and the scope was then withdrawn bringing with it the snare and insertion wire. The insertion wire was then released from the snare, and then loop-attached to the Bard 20 Fr gastrostomy tube. Using the "pull technique", the G-tube was then pulled into place by traction on the insertion wire at the abdominal wall end. The G-tube insertion site was then cleansed once again, and the external bolster was placed over the tube to secure it to the abdominal wall. A sterile dressing was then applied, and the procedure terminated. The gastroscope was then slowly withdrawn and removed. ADVERSE EVENT: There were no complications. IMPRESSIONS: Moderate gastritis was found in the body and the antrum of the stomach RECOMMENDATIONS: Begin feeding tomorrow REPEAT EXAM: procedure as needed Jasmeet Spencer MD eSigned: Jasmeet Spencer MD 10/15/2016 12:38 PM cc: PATIENT NAME: Jarad Hartley MR#: [id number]
[2016-10-15] MEDS ORDERED: DO NOT ADM ANY ANTICOAGULANT DRUGS PRN (12:43)
--- NOTE | 2016-10-15 12:43 | HHI.GIFU ---
Subjective Remarks patient laying in bed comfortable Objective Vitals I&O Vital Signs Date Time Temp Pulse Resp B/P (MAP) Pulse Ox O2 Delivery O2 Flow Rate FiO2 10/15/16 08:37 97 50 10/15/16 05:16 94 50 10/15/16 03:00 98.8 88 19 128/75 (92) 95 10/15/16 03:00 90 10/15/16 03:00 95 Mechanical Ventilator 50 10/15/16 03:00 50 10/15/16 01:34 97 50 10/15/16 01:00 97 Mechanical Ventilator 50 10/15/16 01:00 50 10/14/16 23:00 83 10/14/16 23:00 40 10/14/16 23:00 98.6 82 21 138/78 (98) 91 10/14/16 23:00 91 Mechanical Ventilator 40 10/14/16 22:46 94 50 10/14/16 21:00 97 Mechanical Ventilator 40 10/14/16 21:00 40 10/14/16 20:05 94 50 10/14/16 20:00 95 Mechanical Ventilator 50 10/14/16 20:00 50 10/14/16 19:00 92 50 10/14/16 19:00 50 10/14/16 19:00 74 10/14/16 19:00 97.7 75 18 130/71 (90) 92 10/14/16 18:40 94 50 10/14/16 16:19 92 50 10/14/16 15:22 98.5 82 25 134/69 (90) 97 10/14/16 15:00 82 10/14/16 15:00 97 T-Piece 50 10/14/16 13:20 97 T-piece 6.00 50 I/O 10/14/16 10/14/16 10/14/16 10/15/16 10/15/16 10/15/16 07:00 15:00 23:00 07:00 15:00 23:00 Intake Total 1294 ml 225 ml 1394 ml 2100 ml Output Total 850 ml 1020.0 ml 1060.0 ml Balance 444 ml 225 ml 374.0 ml 1040.0 ml IV Total 300 ml 225 ml 300 ml 1460 ml Tube Feeding 394 ml 494 ml 240 ml Other 600 ml 600 ml 400 ml Output Urine Total 650 ml 900 ml 850 ml Stool Total 200 ml 100 ml 200 ml Tube Feeding Residual Discard 20.0 ml 10.0 ml # Bowel Movements 2 2 Laboratory Laboratory Tests Test 10/15/16 06:15 10/15/16 06:27 Blood Urea Nitrogen 54 Creatinine 1.48 Random Glucose 105 Total Protein 5.7 Albumin 1.9 Calcium Level 8.2 Alkaline Phosphatase 69 Aspartate Amino Transf (AST/SGOT) 25 Alanine Aminotransferase (ALT/SGPT) 24 Total Bilirubin 0.3 Sodium Level 143 Potassium Level 3.4 Chloride Level 107 Carbon Dioxide Level 28.2 Anion Gap 8 Estimat Glomerular Filtration Rate 46 Phenytoin (Dilantin) Level 9.3 White Blood Count 13.7 Red Blood Count 2.47 Hemoglobin 7.3 Hematocrit 23.4 Mean Corpuscular Volume 94.7 Mean Corpuscular Hemoglobin 29.5 Mean Corpuscular Hemoglobin Concent 31.1 Red Cell Distribution Width 18.0 Platelet Count 149 Mean Platelet Volume 9.4 Neutrophils (%) (Auto) 76.3 Lymphocytes (%) (Auto) 8.7 Monocytes (%) (Auto) 7.6 Eosinophils (%) (Auto) 7.0 Basophils (%) (Auto) 0.4 Neutrophils # (Auto) 10.4 Lymphocytes # (Auto) 1.2 Monocytes # (Auto) 1.0 Eosinophils # (Auto) 1.0 Basophils # (Auto) 0.1 CBC Comment DIFF FINAL Differential Comment Date/Time Source Procedure Growth Status 10/10/16 12:08 Blood Peripheral Aerobic Blood Culture - Final NO GROWTH IN 5 DAYS Complete 10/10/16 12:08 Blood Peripheral Anaerobic Blood Culture - Final NO GROWTH IN 5 DAYS Complete 09/12/16 01:00 Stool Stool Stool Occult Blood (JAME) - Final HEMOCCULT NEGATIVE Complete 10/10/16 18:15 Sputum Endotracheal Gram Stain - Final Complete 10/10/16 18:15 Sputum Endotracheal Sputum Culture - Final HEAVY GROWTH NORMAL RESPIRATORY MEL Complete 10/09/16 14:00 Urine Catheterized Urine Urine Culture - Final Betty Albicans Complete Physical Exam HEENT: Pupils round and reactive to light; normocephalic; atraumatic; no jaundice. Throat is clear. NECK: Neck is supple, no JVD, no lymphadenopathy. Trachea in place CHEST: Chest is clear to auscultation and percussion. CARDIAC: Regular rate and rhythm with no murmur gallop or rubs. ABDOMEN: Soft, nondistended, nontender; no hepatosplenomegaly; bowel sounds are present in all four quadrants. EXTREMITIES: No clubbing, cyanosis, or edema. SKIN: Normal; no rash; no jaundice. TECHNICAL SUPPORT 1 SOFTWARE ENGINEER: No focal deficits; alert and oriented times three. Assessment and Plan Plan Patient was seen and examined, agree with the above note, anticoagulation on hold today, Patient had EGD today which shows significant gastritis, PEG tube was placed without difficulty Recommendations Start feeding patient in 6 hours through the PEG tube Start Protonix Check stool for H. pylori. Jasmeet Spencer MD Oct 15, 2016 12:43
[2016-10-15] MEDS ORDERED: PANTOPRAZOLE SOD 40 MG DELAYED RELEASE TAB PO SCH (12:45)
[2016-10-15] MEDS ORDERED: ceFAZolin INJ 1,000 MG VIAL IV ONE (13:07)
[2016-10-15] MEDS ORDERED: ceFAZolin 1,000 MG/NS 100 ML IV ONE ×2 (14:00)
--- NOTE | 2016-10-15 14:43 | HHI.PR ---
Subjective Remarks Had a trach done .Now on CPAP at 40 %. More alert . Will respond to commands. .Chest X Ray is better On seizure meds. Objective Vital Signs Date Time Temp Pulse Resp B/P (MAP) Pulse Ox O2 Delivery O2 Flow Rate FiO2 10/15/16 13:26 99.0 96 16 155/88 99 10/15/16 13:09 99.7 90 16 151/94 99 10/15/16 11:00 99 Mechanical Ventilator 50 10/15/16 11:00 50 10/15/16 11:00 97 10/15/16 11:00 99.7 97 16 124/66 (85) 99 10/15/16 08:37 97 50 10/15/16 08:00 95 Mechanical Ventilator 50 10/15/16 08:00 50 10/15/16 08:00 100.0 90 8 128/70 (89) 95 10/15/16 08:00 90 10/15/16 05:16 94 50 10/15/16 03:00 98.8 88 19 128/75 (92) 95 10/15/16 03:00 90 10/15/16 03:00 95 Mechanical Ventilator 50 10/15/16 03:00 50 10/15/16 01:34 97 50 10/15/16 01:00 97 Mechanical Ventilator 50 10/15/16 01:00 50 10/14/16 23:00 83 10/14/16 23:00 40 10/14/16 23:00 98.6 82 21 138/78 (98) 91 10/14/16 23:00 91 Mechanical Ventilator 40 10/14/16 22:46 94 50 10/14/16 21:00 97 Mechanical Ventilator 40 10/14/16 21:00 40 10/14/16 20:05 94 50 10/14/16 20:00 95 Mechanical Ventilator 50 10/14/16 20:00 50 10/14/16 19:00 92 50 10/14/16 19:00 50 10/14/16 19:00 74 10/14/16 19:00 97.7 75 18 130/71 (90) 92 10/14/16 18:40 94 50 10/14/16 16:19 92 50 10/14/16 15:22 98.5 82 25 134/69 (90) 97 10/14/16 15:00 82 10/14/16 15:00 97 T-Piece 50 I/O 10/14/16 10/14/16 10/14/16 10/15/16 10/15/16 10/15/16 07:00 15:00 23:00 07:00 15:00 23:00 Intake Total 1294 ml 225 ml 1394 ml 2100 ml Output Total 850 ml 1020.0 ml 1060.0 ml Balance 444 ml 225 ml 374.0 ml 1040.0 ml IV Total 300 ml 225 ml 300 ml 1460 ml Tube Feeding 394 ml 494 ml 240 ml Other 600 ml 600 ml 400 ml Output Urine Total 650 ml 900 ml 850 ml Stool Total 200 ml 100 ml 200 ml Tube Feeding Residual Discard 20.0 ml 10.0 ml # Bowel Movements 2 2 Result Diagram: 10/15/1662610/15/16614 Objective Remarks GENERAL: This moderately overweight elderly man , with a trach HEENT: Head is normocephalic. Pupils are reactive. Tongue is moist. Throat clear NECK: No venous distention. No thyroid enlargement. CHEST: Equal movements with diminished breath sounds at the bases with Occ basal crackles. HEART: Sounds are irregular S1-S2. No murmur. ABDOMEN: Soft. Protuberant without masses. No organomegaly. EXTREMITIES: Decreased pulses.1 + Edema SKIN: warm. Neuro : lethargic.Moves arm and feet. Assessment and Plan Assessment and Plan IMPRESSION 1. Acute respiratory failure.Resolving 2. Fluid overload status with pulmonary edema. 3. Acute kidney failure.Resolving 4. History of cerebrovascular accident. 5. Bibasilar atelectasis with possible pneumonia. 6. History of colon cancer and bladder cancer. 7. Possible Hypersensitivity Pneumonia or Edema Plan : 1. CPAP today for up to 6 hrs FIO2 45 % 2. Place on A/C rate 10 at night.9 PM to 6 am. 3. Nebs qid ,Duoneb. 4. Trach lavage and suction 5. Antibiotics per ID 6. Cont Keppra/Dilantin 7. D/C solumedrol IV 8. Add prednisone 10 mg bid Jaime Encinas MD Oct 15, 2016 14:43
--- NOTE | 2016-10-15 15:32 | HHI.PR ---
Subjective Remarks on vent for trach Objective Vital Signs Date Time Temp Pulse Resp B/P (MAP) Pulse Ox O2 Delivery O2 Flow Rate FiO2 10/15/16 13:26 99.0 96 16 155/88 99 10/15/16 13:09 99.7 90 16 151/94 99 10/15/16 11:00 99 Mechanical Ventilator 50 10/15/16 11:00 50 10/15/16 11:00 97 10/15/16 11:00 99.7 97 16 124/66 (85) 99 10/15/16 08:37 97 50 10/15/16 08:00 95 Mechanical Ventilator 50 10/15/16 08:00 50 10/15/16 08:00 100.0 90 8 128/70 (89) 95 10/15/16 08:00 90 10/15/16 05:16 94 50 10/15/16 03:00 98.8 88 19 128/75 (92) 95 10/15/16 03:00 90 10/15/16 03:00 95 Mechanical Ventilator 50 10/15/16 03:00 50 10/15/16 01:34 97 50 10/15/16 01:00 97 Mechanical Ventilator 50 10/15/16 01:00 50 10/14/16 23:00 83 10/14/16 23:00 40 10/14/16 23:00 98.6 82 21 138/78 (98) 91 10/14/16 23:00 91 Mechanical Ventilator 40 10/14/16 22:46 94 50 10/14/16 21:00 97 Mechanical Ventilator 40 10/14/16 21:00 40 10/14/16 20:05 94 50 10/14/16 20:00 95 Mechanical Ventilator 50 10/14/16 20:00 50 10/14/16 19:00 92 50 10/14/16 19:00 50 10/14/16 19:00 74 10/14/16 19:00 97.7 75 18 130/71 (90) 92 10/14/16 18:40 94 50 10/14/16 16:19 92 50 I/O 10/14/16 10/14/16 10/14/16 10/15/16 10/15/16 10/15/16 07:00 15:00 23:00 07:00 15:00 23:00 Intake Total 1294 ml 225 ml 1394 ml 2100 ml Output Total 850 ml 1020.0 ml 1060.0 ml Balance 444 ml 225 ml 374.0 ml 1040.0 ml IV Total 300 ml 225 ml 300 ml 1460 ml Tube Feeding 394 ml 494 ml 240 ml Other 600 ml 600 ml 400 ml Output Urine Total 650 ml 900 ml 850 ml Stool Total 200 ml 100 ml 200 ml Tube Feeding Residual Discard 20.0 ml 10.0 ml # Bowel Movements 2 2 Result Diagram: 10/15/16 0627 10/15/16 0615 Objective Remarks awake alerts commands well generally weak Assessment and Plan Assessment and Plan imp no new spells esr 80 crp and kappa chains and lamda chains 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 shabbir neg on eliquis 5 bid now b12 shots DONE renal issues i ordered some inflammation labs SOME ABN HERE PLEASE ADDRESS ABN KAPPA PROTEINS i dw med team today I WILL SIGNOFF again his vision change due to oleft occipital region cva he had on admission they will do heme consult for above esr inc and abn proteins 10/07/16 had rue jerks and eeg shows some bilat pled like almost at time sharps i added dil and vimpat to keppra will recheck mri and eeg follow levels 10/08/16 spep abn due to renal dil 8 free dil around 12 mri no new cva on anticoag eeg reportedly looks better this am sz on vimpat and dil looks better will follow 10/13/16 looks well no sz dil 11 free around 16 on vimpat dil dec keppra to 500 bid and will dc few days if doing well last eeg neg 10/15/16 nurse thought still lethargic so i dced dilantin and cont on keppra nd vimpat can change to po when peg starts to work continue eliquis will fu mon or tues Jeffries,Reymundo Justice MD Oct 15, 2016 15:32
--- NOTE | 2016-10-15 16:00 | PD.WCN.NOT ---
Wound Consult Description: Received consult for pressure ulcer L buttock from Doctor Jarad Communicated with: NOEMI hernández [facility] Recommendation: Please cleanse buttock area with soap and water gently using soft cloths. Gently pat dry and apply thick layer of calazime barrier cream BID and PRN and leave open to air Turn patient every 2 hours or PRN for comfort Additional Information: Patient seen on [facility] for evaluation of possible pressure injury to L buttock. Patient turned with assistance of Sarah hernández, creative services writer and other RN for assessment. Patient is noted with area of non blanchable purple discoloration to sacrococcygeal area and includes bilateral inner buttocks that is opening to partial thickness skin loss between 6 and 8 o'clock. Non blanchable purple discoloration over rachell prominence indicates a deep tissue injury.Entire area measures 8 cm x 6 cm. Applied thick layer of barrier cream and positioned patient to L side with pillow. Patient is laying on advanced turn mattress that Doctor ordered for for skin issues. Advanced turn beds are typically used for pulmonary patients. Spoke with clinical transplant coordinator Doctor Henderson regarding if bed was appropriate for patient' s pulmonary status. Doctor says this bed is not needed for pulmonary reasons. Set bed to low airloss setting for pressure relief. Spoke with RNs on floor regarding proper use of specialty bed. Turn and reposition patient every 2 hours, pressure relieving mattresses and beds do not replace this. Radha Velasco [facility] Oct 15, 2016 16:00
[2016-10-15] MEDS: RESP: ALBUTEROL 2.5 MG/3 ML NEB (PRN) NEB (16:37)
--- NOTE | 2016-10-15 16:52 | RADRPT ---
EXAM DATE/TIME: 10/15/2016 16:12 [place] COMPARISON: CHEST SINGLE AP, October 14, 2016, 6:05. CHEST SINGLE AP, October 13, 2016, 13:31. INDICATIONS : Oxygen levels. MEDICAL HISTORY : None. SURGICAL HISTORY : CABG. ENCOUNTER: Subsequent ACUITY: 1 day PAIN SCORE: Non-responsive. LOCATION: Bilateral chest FINDINGS: Tracheostomy is present in good position. Central line and nasogastric tube have been removed. Persis tent patchy coarse interstitial infiltrates are again noted. Cardiac contours are grossly stable. CONCLUSION: Little change in patchy bilateral infiltrates. Jarad De Jesus MD on October 15, 2016 at 16:48 Board Certified Radiologist. This report was verified electronically.
[2016-10-15] MEDS: hydrALAZINE HCL 20 MG/ML VIAL IV PUSH PRN (17:04)
[2016-10-15] MEDS ORDERED: PROPOFOL 200 MG/20 ML AMP IV ONE (17:05)
[2016-10-15 17:14] LABS: BLOOD GAS CARBOXYHEMOGLOBIN 2.3 % (0-4); BLOOD GAS HCO3 25 mmol/L (22-26); BLOOD GAS METHEMOGLOBIN 1.4 % (0-2); BLOOD GAS O2 HGB SATURATION 96 % (90-100); BLOOD GAS OXYGEN CONTENT 11.3 Vol % (12.0-20.0); BLOOD GAS PCO2 40 mmHg (38-42); BLOOD GAS PO2 170 mmHg (61-120); BLOOD GAS TOTAL HGB 8.1 G/DL (12.0-16.0); CRITICAL VALUE NO; OXYGEN DEVICE VENTILATOR; TEMP CORR TO 98.6
[2016-10-15 17:15] LABS: DRAW SITE RT RADIAL; FIO2 60 %; NUMBER OF ARTERIAL PUNCTURES 1; STAT NO; VENT SETTINGS PRVC/AC/600/
[2016-10-15] MEDS: ASPIRIN EC 81 MG TABEC PO SCH (18:05)
[2016-10-15] MEDS: FUROSEMIDE 40 MG TAB NG SCH (18:05)
[2016-10-15] MEDS: FAMOTIDINE 20 MG TAB NG SCH (21:48)
[2016-10-16] VITALS (12 sets, daily range): BP systolic 127–153; BP diastolic 73–88; PULSE 81–102; RESP 19–26; TEMP 98.1–100.1; O2SAT 89–99
[2016-10-16] MEDS: LACOSAMIDE INJ 200 MG in SODIUM CHLORIDE 0.9% INJ 100 ML IV SCH ×2 (00:49→12:04)
[2016-10-16] MEDS: SUCRALFATE 1 GM/10 ML CUP NG SCH ×4 (00:49→18:23)
[2016-10-16] MEDS: FOSPHENYTOIN SODIUM 100 MG PE/2 ML VIAL IV SCH (01:15)
[2016-10-16] MEDS: SODIUM CHLOR 0.9% 1000 ML INJ 1,000 ML IV SCH (02:00)
[2016-10-16] MEDS: FREE WATER G-TUBE SCH ×6 (04:00→20:00)
[2016-10-16] MEDS: RESP: ALBUTEROL 2.5 MG/3 ML NEB (PRN) NEB (04:40)
[2016-10-16] MEDS: INSULIN ASPART SUPPLEMENTAL SCALE SQ SCH ×4 (06:00→18:00)
[2016-10-16] MEDS: METOCLOPRAMIDE HCL 10 MG/2 ML VIAL IV PUSH SCH ×3 (06:11→22:19)
[2016-10-16] MEDS: ARTIFICIAL TEARS OPTH SOLN 15 ML BTL EACH EYE SCH ×3 (06:12→22:20)
[2016-10-16 06:37] LABS: BASOPHIL # 0.1 TH/MM3 (0-0.2); BASOPHIL % 0.8 % (0.0-2.0); EOSINOPHIL % 7.6 % (0.0-4.0); HEMATOCRIT 25.7 % (39.0-51.0); HEMO FLAGS DIFF FINAL; LYMPH % 8.7 % (9.0-44.0); LYMPHOCYTE # 1.1 TH/MM3 (1.0-4.8); MEAN CELL VOLUME 93.5 FL (80.0-100.0); MEAN CORPUSCULAR HEMOGLOBIN 30.7 PG (27.0-34.0); MEAN CORPUSCULAR HGB CONC 32.9 % (32.0-36.0); MONO % 6.8 % (0.0-8.0); NEUT % 76.1 % (16.0-70.0); PLATELET COUNT 162 TH/MM3 (150-450); RED BLOOD COUNT 2.75 MIL/MM3 (4.50-5.90); WHITE BLOOD COUNT 13.1 TH/MM3 (4.0-11.0)
[2016-10-16 07:33] LABS: ALKALINE PHOSPHATASE 72 U/L (45-117); ALT (GPT) 23 U/L (12-78); ANION GAP 9 MEQ/L (5-15); AST (GOT) 27 U/L (15-37); BICARBONATE 27.5 MEQ/L (21.0-32.0); BLOOD UREA NITROGEN 42 MG/DL (7-18); CHLORIDE 107 MEQ/L (98-107); GLOMERULAR FILTRATION RATE 48 ML/MIN (>89); POTASSIUM 3.4 MEQ/L (3.5-5.1); SODIUM (NA) 143 MEQ/L (136-145); TOTAL BILIRUBIN ADULT 0.4 MG/DL (0.2-1.0)
[2016-10-16] MEDS: methylPREDNISolone SOD SUCC 40 MG/1 ML VIAL IV PUSH SCH (08:59)
[2016-10-16] MEDS: DOCUSATE SODIUM 100 MG/10 ML UDC NG SCH ×2 (08:59→22:18)
[2016-10-16] MEDS: SENNOSIDES SYRUP 8.8 MG/5 ML CUP NG SCH ×2 (08:59→22:18)
[2016-10-16] MEDS: levETIRAcetam INJ 500 MG in SODIUM CHLORIDE 0.9% INJ 100 ML IV SCH ×2 (09:00→22:18)
[2016-10-16] MEDS: POLYETHYLENE GLYCOL 17 GM PKG NG SCH ×2 (09:00→22:18)
[2016-10-16] MEDS: SODIUM CHLORIDE 0.9% FLUSH 10 ML FLUSH IVF SCH (09:00)
[2016-10-16] MEDS: FAMOTIDINE 20 MG TAB NG SCH ×2 (09:01→22:19)
[2016-10-16] MEDS: FUROSEMIDE 40 MG TAB NG SCH (09:01)
[2016-10-16] MEDS: SODIUM CHLORIDE 0.9% FLUSH 10 ML FLUSH IV FLUSH SCH ×2 (09:02→22:19)
[2016-10-16] MEDS: CHLORHEXIDINE 0.12% (ORAL KIT) 15 ML CUP MT SCH ×2 (09:02→20:00)
[2016-10-16] MEDS: LABETALOL HCL 100 MG TAB PO SCH ×3 (09:02→18:23)
[2016-10-16] MEDS: CALCIUM ACETATE 667 MG CAP PO SCH ×3 (09:03→18:23)
[2016-10-16] MEDS: ASPIRIN 81 MG CHEW TAB PEG SCH (12:02)
--- NOTE | 2016-10-16 19:22 | HHI.CCPN ---
Subjective Remarks/Hospital Course 75 y/o man now about 4 weeks following CABG complicated by CVA. Presented back 08/28 with new onset right arm weakness. Hospital course has been complicated by CKD and fluid overload. We have attempted BiPAP for several hours but he remains in distress and although oxygenation is acceptable work of breathing is excessive. Worrisome increasing metabolic acidosis. 09/17: Gas exchange much improved. BNP 1681, ScVO2 71%. It appears that cardiac output is more than adequate for peripheral needs and the primary pathology is renal failure and fluid overload. If we can manage volume I can probably get him extubated. 09/18: Diffuse crackles. Needs to be diuresed today. Tolerating extubation but at risk for hypoxemic failure again. 09/20 - Re consulted due to worsening hypoxia. Currently on nonrebreather mask. Chest x-ray shows worsening consolidation right lobe creatinine slightly improved over. Family request transfer to [facility] however refused. We'll attempt to decipher status currently unknown. 09/21: Remains on nonrebreather mask. Saturations between 89-97%. Chest x-ray unchanged. Not tachypnea. Not confused. 09/22: Radiographic studies show diffuse interstitial process with skip areas - more indicative of infectious/inflammatory process. Sats 85% with labored pattern. Required intubation for deteriorating respiratory status. 09/23: Gas exchange improving. Pulmonary infiltrates remain very concerning - if most recent sputum is benign I would not be opposed to steroids. 09/24: Extubated today. On 3 L nasal cannula. Passed swallow evaluation. Appropriate interactive status post extubation. 09/29: Critical care reconsult requested by Dr. Meza for respiratory failure. Patient reportedly was on BiPAP this morning. He was given additional diuretic earlier as he was short of breath. With this he seems to have improved somewhat and has been on a nonrebreather facemask for more than a few hours. He states that he is breathing much better. Patient being adamant about not using BiPAP. I had a detailed conversation about the importance of using BiPAP especially at night in view of his history of sleep apnea. Patient did not appear to be in acute distress though he was requiring a nonrebreather facemask at the time of my evaluation. No urgent need for BiPAP or intubation at this time. In fact patient is stating that he is breathing much better than this morning. 09/30: Remains on nonrebreather facemask. Refused BiPAP at night. States that he is breathing better today than yesterday. 10/01: 02 30 L/m 100% FiO2. O2 sats borderline. Episodes of confusion. When I evaluated the patient he was sitting up in bed and was able to converse. Not using accessory muscles of respirations currently. 10/02: The patient is alert and oriented currently has been weaned down to high flow nasal cannula with an FiO2 of 65%, maintaining O2 saturation to 95%. Patient is appropriately conversant no episodes of confusion noted. 10/03: Yesterday, the patient received 2 units of packed red blood cells with Furosemide dosing in between transfusion of units, with diuresis of approximately 2900 cc. Last night, the patient was noted to have respiratory decompensation, continued refusal to utilize BiPAP during the night. FiO2 requirements increased to 100% this a.m., on high flow nasal cannula, with noted accessory muscle use and inability to speak in complete sentences secondary to dyspnea. The patient received additional dose of Lasix this a.m. , chest x-ray appeared to be worsened this a.m. .Patient subsequently became hypoxic requiring emergent intubation this a.m.., O2 sat saturation 80s on 100 % FiO2. 10/04: Intubated yesterday due to general and hypoxia. Diuresed with 80 mg furosemide 1. Tmax 99.8. Currently 97.8. Tube feeds initiated. No bowel movement. 10/05: Afebrile. Subcutaneous air in neck bilaterally on chest x-ray today. No obvious pneumothorax. No pneumothorax on chest x-ray yesterday post central line placement. Tolerating tube feeding. No bowel movement. 10/06: Currently resting in bed. Subcutaneous air neck much improved. X-ray improved. FiO2 down to 40%. Tolerating tube feeding. One bowel movement. 10/07: Afebrile. Currently on propofol drip at 40 mg/kg per minute. X-ray has improved. Currently not tolerating tube feeds. 2 bowel movements documented. Sedation vacation today ordered. 10/08: Afebrile. Saturations 95% on FiO2 50%. MRI brain showed no acute findings last night. EEG repeated for today. PLEDs on previous EEG. Vimpat along with fosphenytoin added per neurology. Arousable on the ventilator. Tube feeds to be resumed today. Discussed with at length yesterday 10/09: MAXIMUM TEMPERATURE 99.5. Currently 99.3. Tube feeds currently at 20 cc an hour. Minimal residuals. Arousable and intermittently follows commands mostly with right upper extremity. 10/10: Febrile. Tube feeds currently at 25 cc an hour. Minimal residuals. Positive BM. Not arousable this AM. EEG still reveals underlying sharp spikes. Vimpat increased yesterday. 10/11: Remains intubated tachypneic on CPAP 11/11, Lethargic not consistently following commands. After being placed on 06/11 patient is more tachypneic, breathing in mid 30s 10/12: Remains intubated off sedation. Very lethargic, copious oral secretions and moderate ET tube secretions. We'll discuss with general surgery regarding tracheostomy today. 10/11/16 did not show seizure activity but moderate encephalopathy 10/13: Remains off sedation quite lethargic. We except to sternal rub. We believe follows commands on right upper and bilateral lower extremities. Low- grade fever. Tracheostomy planned for afternoon 10/14: s/p trach yesterday. Remains lethargic, but follows commands on the right side. Increase in white count noted. Creatinine increasing now 1.8. Will discontinue IV Lasix and give IV hydration for 24 hours. Attempt T piece 2-4 hours 10/15: s/p trach yesterday. Tolerated TP 2 hours. Remains lethargic, weakly follows commands. PEG today. Cr improved from 1.8 to 1.5 with gentle hydration Subjective: 10/16: no changes. Cr slowly improving. Objective Vital Signs Date Time Temp Pulse Resp B/P (MAP) Pulse Ox O2 Delivery O2 Flow Rate FiO2 10/16/16 15:00 83 10/16/16 15:00 45 10/16/16 15:00 98.5 20 140/78 (98) 99 10/16/16 15:00 Mechanical Ventilator 10/16/16 03:00 2.00 Intake and Output 10/16/16 10/16/16 10/17/16 08:00 16:00 00:00 Intake Total 2181 ml 100 ml 1000 ml Output Total 1230 ml 685 ml Balance 951 ml 100 ml 315 ml Result Diagram: 10/16/16 0555 10/16/16 0555 Imaging Last Impressions Chest X-Ray 10/10/16 0600 Signed Impressions: Service Date/Time: Monday, October 10, 2016 04:25 - CONCLUSION: 1. Support apparatus in satisfactory position. Patchy airspace and interstitial changes similar to October 2. Amado Crain MD Brain MRI 10/07/16 0000 Signed Impressions: Service Date/Time: September 21:45 - CONCLUSION: 1. Residual small areas of infarction seen bilaterally. There are fewer areas of signal abnormality seen on the diffusion-weighted images on the current exam. New areas of infarction are not present. 2. Areas of demyelination throughout the cerebral and pontine white matter likely from small vessel ischemic change. 3. Fluid in the mastoid air cells. Jarad Cat MD Abdomen X-Ray 10/07/16 0000 Signed Impressions: Service Date/Time: September 08:32 - CONCLUSION: Unremarkable bowel gas pattern. Sanya Cavazos MD Neck CT 10/05/16 0000 Signed Impressions: Service Date/Time: Wednesday, October 05, 2016 10:41 - CONCLUSION: Extensive subcutaneous emphysema. Jarad De Jesus MD Chest CT 10/05/16 0000 Signed Impressions: Service Date/Time: Wednesday, October 05, 2016 10:43 - CONCLUSION: Prior median sternotomy cardiac surgery atherosclerotic cardiovascular disease with left ventricular cardiomegaly and evidence of interstitial alveolar edema in both lungs consistent with CHF. Support tubes in place with subcutaneous emphysema in the soft tissues of neck bilaterally and supraclavicular. There is no evidence of pneumothorax. Lele Escudero MD Head Magnetic Resonance Angiography 09/10/16 1028 Signed Impressions: Service Date/Time: Saturday, September 10, 2016 10:57 - CONCLUSION: 1. Unremarkable MRA examination without evidence for large vessel occlusion, aneurysm, or vascular malformation. Richardson Haney MD Carotid Artery Ultrasound 09/09/16 1028 Signed Impressions: Service Date/Time: September 10:43 - CONCLUSION: 1. Moderate visible plaque without hemodynamically significant stenosis identified. No significant change from August 25. Amado Crain MD Renal Ultrasound 09/09/16 0000 Signed Impressions: Service Date/Time: September 15:41 - CONCLUSION: 1. Cortical atrophy with small bilateral renal cysts. No hydronephrosis. Amado Crain MD Head CT 09/08/16 3019 Signed Impressions: Service Date/Time: Thursday, September 08, 2016 23:41 - CONCLUSION: Stable noncontrast CT with no evidence of hemorrhage or acute infarction. Atrophy and chronic small vessel splenic changes remain. Sanya Cavazos MD Objective Remarks GENERAL: 75-year-old male currently on vent via trach SKIN: Warm and dry. Well perfused HEAD: Atraumatic. Normocephalic. ENT: Oral cavity is dry. NECK: Trachea midline. Trach site clean, dry CARDIOVASCULAR: IRR. S1, S2 no S4. Without murmur RESPIRATORY: Air entry decreased bilaterally at bases, scattered rhonchi. GASTROINTESTINAL: Abdomen soft, non-tender, nondistended. No guarding. BS active. MUSCULOSKELETAL: Extremities with trace to 1+ B/L lower extremity edema. No obvious deformities. NEUROLOGICAL: Opens eyes to command. Follows commands very weakly in all extremities except LUE. Procedures 10/03- intubation Date of Insertion: Oct 03, 2016 Date of Insertion: Oct 04, 2016 Line: Central Venous Catheter Side: Right Location: Internal, Jugular A/P Assessment and Plan Neuro/Psych: Left occipital, bilateral frontal parietal cerebellar CVA subacute Seizure Encephalopathy Chronic headaches Chronic benzodiazepine use, chronic oxycodone use MRI 09/10 brain revealed left occipital, bilateral frontal parietal and cerebellar CVA likely ALFIE/APPLICATION SUPPORT ANALYST distribution MRI brain 10/07 - Residual frontal/parietal and occipital junction CVA. Significant demyelination Followed by Dr. Jeffries/neurology. 10/[address] Prajapati in view of episodes of confusion. Nonfocal. EEG 10/07 bilateral PLEDs with episodic sharp activity EEG 10/10: Ongoing seizure activity with lightening sedation Repeat EEG 10/11/16-no seizure activity, moderate encephalopathy On fosphenytoin at 100 mg IV 3 times a day, levetiracetam 1500 mg IV twice a day and lacosamide 200 mg IV twice a day Dilantin level 10/11/16 9.3 -therapeutic with albumin correction Patient becomes lethargic after antiseizure medications- dose adjustments per neuro Meropenem, linezolid and famotidine all discontinued Off all continuos sedation CV: Coronary disease status post CABG ASCVD Carotid stenosis TAAA Hypertension Dyslipidemia History atrial fibrillation status post ablation 2011 Followed by cardiology. Currently off atorvastatin 40 mg daily/home medication for dyslipidemia (reported ? statin induced myopathy) 10/14 Resumed PO Apixaban 5 mg twice a day per cardiology and aspirin 81 mg by mouth daily. Hold for PEG today Off amiodarone for suspected pulmonary toxicity Echocardiogram revealed EF 70%. OHS septal motion./Paradoxical, CARA 50-60 mmHg Currently labetalol 100 mg 3 times a day for hypertension. 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 Souza. Tolerating CPAP. Ventilator bundle. TP 8-10 hours from today Was unable to extubate due to severe neuromuscular weakness and encephalopathy and CVA. 3rd intubation. Last 10/03 Off amiodarone for suspected pulmonary toxicity Albuterol/ipratropium every 6 hours with albuterol aerosols as indicated Chest x-ray 10/08 - improved bilateral subcutaneous emphysema neck. No obvious pneumothorax. CT chest ruled out pneumothorax. Likely barotrauma from mechanical ventilation. Methylprednisolone currently on 30 mg daily- ( Prednisone 40mg q day taper over' s several weeks recommended by nephrology for possible pantoprazole induced interstitial nephritis) Discontinued montelukast 10 mg by mouth daily in light of possible seizure threshold lowering/rare Pulmonary following Dr. Encinas Continue antibiotics per ID Dr. Nova - recommended lung biopsy. Patient showing clinical improvement CT surgery - [facility]: On Suplena goal 55 cc an hour (per dietary recommendations). Hold for PEG today On sucralfate 1 g by mouth 4 times daily for GI prophylaxis Docusate sodium 100 mg twice a day, senna liquid 8.6 mg twice a day and polyethylene glycol 3350 17 g twice daily for bowel regimen Metoclopramide 5 mill grams IV every 8 hours History of hydroureter Renal ultrasound revealed no hydronephrosis Reinsert Choi-after intubation- Strict I&O's Endo: Sliding scale insulin with NovoLog with Accu-Cheks every 6 hours/low regimen Renal: Acute on chronic kidney injury Holding IV Lasix. Reconsult nephrology if creat continued to worsen. Today 1.5 from 1.8. IV hydration for additional [address] 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 Slowly wean steroids due to this issue as above pulmonary section. Creatinine currently 1.5. BUN slightly improved Heme: History of colon cancer status post partial colectomy History of bladder cancer Normocytic anemia Leukocytosis Monitor CBC daily. Follow trends. Transfuse 1 unit of PRBC today in anticipation of PEG Noted elevated lambda and kappa Chains/ESR likely secondary underlying acute kidney injury. Evaluated by Dr. Mccollum/hematology ID: Likely hospital-acquired pneumonia Sepsis Meropenem//linezolid 09/27 through 10/07 Currently observe off ABX Pertinent cultures 10/03-repeat blood, urine Legionella and pneumococcal antigens and sputum cultures no growth 10/03-influenza negative 09/28 - blood cultures 2 - no growth 09/22 - sputum - no growth 09/16 - blood cultures 2 - no growth Recheck urine 10/09- Betty- changed choi Recheck blood cultures 2 and sputum 10/10. Repeat sputum culture 10/13/16 neg to date Off all antibiotics per infectious disease FEN: Hypernatremia - resolving Monitor and replete electrolytes free water 200 cc every 4 hours. MSK: PT evaluate and treat Prophylaxis - GI -sucralfate - DVT - SCD/apixaban Access - Right subclavian CVL placed 09/16 - 10/04 - Right IJ CVL 10/04-10/14 Shadi Ramon MD Oct 16, 2016 19:22
[2016-10-17] VITALS (20 sets, daily range): BP systolic 132–168; BP diastolic 70–95; PULSE 93–120; RESP 24–30; TEMP 99.2–99.7; O2SAT 91–99
[2016-10-17] MEDS: SUCRALFATE 1 GM/10 ML CUP NG SCH ×4 (00:22→17:19)
[2016-10-17] MEDS: LACOSAMIDE INJ 200 MG in SODIUM CHLORIDE 0.9% INJ 100 ML IV SCH ×2 (00:22→12:22)
[2016-10-17] MEDS: hydrALAZINE HCL 20 MG/ML VIAL IV PUSH PRN (02:06)
[2016-10-17] MEDS: SODIUM CHLORIDE 0.9% FLUSH 10 ML FLUSH IV FLUSH PRN ×2 (02:10→05:44)
[2016-10-17] MEDS: FREE WATER G-TUBE SCH ×6 (04:00→20:00)
[2016-10-17] MEDS: METOCLOPRAMIDE HCL 10 MG/2 ML VIAL IV PUSH SCH ×2 (05:43→14:13)
[2016-10-17] MEDS: LABETALOL HCL 100 MG/20 ML VIAL IV PUSH PRN (05:44)
--- NOTE | 2016-10-17 05:55 | HHI.CCPN ---
Subjective Remarks/Hospital Course 75 y/o man now about 4 weeks following CABG complicated by CVA. Presented back 08/28 with new onset right arm weakness. Hospital course has been complicated by CKD and fluid overload. We have attempted BiPAP for several hours but he remains in distress and although oxygenation is acceptable work of breathing is excessive. Worrisome increasing metabolic acidosis. 09/17: Gas exchange much improved. BNP 1681, ScVO2 71%. It appears that cardiac output is more than adequate for peripheral needs and the primary pathology is renal failure and fluid overload. If we can manage volume I can probably get him extubated. 09/18: Diffuse crackles. Needs to be diuresed today. Tolerating extubation but at risk for hypoxemic failure again. 09/20 - Re consulted due to worsening hypoxia. Currently on nonrebreather mask. Chest x-ray shows worsening consolidation right lobe creatinine slightly improved over. Family request transfer to [facility] however refused. We'll attempt to decipher status currently unknown. 09/21: Remains on nonrebreather mask. Saturations between 89-97%. Chest x-ray unchanged. Not tachypnea. Not confused. 09/22: Radiographic studies show diffuse interstitial process with skip areas - more indicative of infectious/inflammatory process. Sats 85% with labored pattern. Required intubation for deteriorating respiratory status. 09/23: Gas exchange improving. Pulmonary infiltrates remain very concerning - if most recent sputum is benign I would not be opposed to steroids. 09/24: Extubated today. On 3 L nasal cannula. Passed swallow evaluation. Appropriate interactive status post extubation. 09/29: Critical care reconsult requested by Dr. Meza for respiratory failure. Patient reportedly was on BiPAP this morning. He was given additional diuretic earlier as he was short of breath. With this he seems to have improved somewhat and has been on a nonrebreather facemask for more than a few hours. He states that he is breathing much better. Patient being adamant about not using BiPAP. I had a detailed conversation about the importance of using BiPAP especially at night in view of his history of sleep apnea. Patient did not appear to be in acute distress though he was requiring a nonrebreather facemask at the time of my evaluation. No urgent need for BiPAP or intubation at this time. In fact patient is stating that he is breathing much better than this morning. 09/30: Remains on nonrebreather facemask. Refused BiPAP at night. States that he is breathing better today than yesterday. 10/01: 02 30 L/m 100% FiO2. O2 sats borderline. Episodes of confusion. When I evaluated the patient he was sitting up in bed and was able to converse. Not using accessory muscles of respirations currently. 10/02: The patient is alert and oriented currently has been weaned down to high flow nasal cannula with an FiO2 of 65%, maintaining O2 saturation to 95%. Patient is appropriately conversant no episodes of confusion noted. 10/03: Yesterday, the patient received 2 units of packed red blood cells with Furosemide dosing in between transfusion of units, with diuresis of approximately 2900 cc. Last night, the patient was noted to have respiratory decompensation, continued refusal to utilize BiPAP during the night. FiO2 requirements increased to 100% this a.m., on high flow nasal cannula, with noted accessory muscle use and inability to speak in complete sentences secondary to dyspnea. The patient received additional dose of Lasix this a.m. , chest x-ray appeared to be worsened this a.m. .Patient subsequently became hypoxic requiring emergent intubation this a.m.., O2 sat saturation 80s on 100 % FiO2. 10/04: Intubated yesterday due to general and hypoxia. Diuresed with 80 mg furosemide 1. Tmax 99.8. Currently 97.8. Tube feeds initiated. No bowel movement. 10/05: Afebrile. Subcutaneous air in neck bilaterally on chest x-ray today. No obvious pneumothorax. No pneumothorax on chest x-ray yesterday post central line placement. Tolerating tube feeding. No bowel movement. 10/06: Currently resting in bed. Subcutaneous air neck much improved. X-ray improved. FiO2 down to 40%. Tolerating tube feeding. One bowel movement. 10/07: Afebrile. Currently on propofol drip at 40 mg/kg per minute. X-ray has improved. Currently not tolerating tube feeds. 2 bowel movements documented. Sedation vacation today ordered. 10/08: Afebrile. Saturations 95% on FiO2 50%. MRI brain showed no acute findings last night. EEG repeated for today. PLEDs on previous EEG. Vimpat along with fosphenytoin added per neurology. Arousable on the ventilator. Tube feeds to be resumed today. Discussed with at length yesterday 10/09: MAXIMUM TEMPERATURE 99.5. Currently 99.3. Tube feeds currently at 20 cc an hour. Minimal residuals. Arousable and intermittently follows commands mostly with right upper extremity. 10/10: Febrile. Tube feeds currently at 25 cc an hour. Minimal residuals. Positive BM. Not arousable this AM. EEG still reveals underlying sharp spikes. Vimpat increased yesterday. 10/11: Remains intubated tachypneic on CPAP 11/11, Lethargic not consistently following commands. After being placed on 06/11 patient is more tachypneic, breathing in mid 30s 10/12: Remains intubated off sedation. Very lethargic, copious oral secretions and moderate ET tube secretions. We'll discuss with general surgery regarding tracheostomy today. 10/11/16 did not show seizure activity but moderate encephalopathy 10/13: Remains off sedation quite lethargic. We except to sternal rub. We believe follows commands on right upper and bilateral lower extremities. Low- grade fever. Tracheostomy planned for afternoon 10/14: s/p trach yesterday. Remains lethargic, but follows commands on the right side. Increase in white count noted. Creatinine increasing now 1.8. Will discontinue IV Lasix and give IV hydration for 24 hours. Attempt T piece 2-4 hours 10/15: s/p trach yesterday. Tolerated TP 2 hours. Remains lethargic, weakly follows commands. PEG today. Cr improved from 1.8 to 1.5 with gentle hydration 10/16: no changes. Cr slowly improving. Subjective: 10/17: no clinical improvements. awaiting placement. weather concerns prevent further movement towards placement in LTAC. Objective Vital Signs Date Time Temp Pulse Resp B/P (MAP) Pulse Ox O2 Delivery O2 Flow Rate FiO2 10/17/16 04:38 116 29 132/72 (92) 96 10/17/16 03:46 45 10/17/16 03:00 99.3 10/17/16 03:00 Mechanical Ventilator 10/16/16 03:00 2.00 Result Diagram: 10/16/16 0555 10/16/16 0555 Imaging Last Impressions Chest X-Ray 10/10/16 0600 Signed Impressions: Service Date/Time: Monday, October 10, 2016 04:25 - CONCLUSION: 1. Support apparatus in satisfactory position. Patchy airspace and interstitial changes similar to October 2. Amado Crain MD Brain MRI 10/07/16 0000 Signed Impressions: Service Date/Time: September 21:45 - CONCLUSION: 1. Residual small areas of infarction seen bilaterally. There are fewer areas of signal abnormality seen on the diffusion-weighted images on the current exam. New areas of infarction are not present. 2. Areas of demyelination throughout the cerebral and pontine white matter likely from small vessel ischemic change. 3. Fluid in the mastoid air cells. Jarad Cat MD Abdomen X-Ray 10/07/16 0000 Signed Impressions: Service Date/Time: September 08:32 - CONCLUSION: Unremarkable bowel gas pattern. Sanya Cavazos MD Neck CT 10/05/16 0000 Signed Impressions: Service Date/Time: Wednesday, October 05, 2016 10:41 - CONCLUSION: Extensive subcutaneous emphysema. Jarad De Jesus MD Chest CT 10/05/16 0000 Signed Impressions: Service Date/Time: Wednesday, October 05, 2016 10:43 - CONCLUSION: Prior median sternotomy cardiac surgery atherosclerotic cardiovascular disease with left ventricular cardiomegaly and evidence of interstitial alveolar edema in both lungs consistent with CHF. Support tubes in place with subcutaneous emphysema in the soft tissues of neck bilaterally and supraclavicular. There is no evidence of pneumothorax. Lele Escudero MD Head Magnetic Resonance Angiography 09/10/16 1028 Signed Impressions: Service Date/Time: Saturday, September 10, 2016 10:57 - CONCLUSION: 1. Unremarkable MRA examination without evidence for large vessel occlusion, aneurysm, or vascular malformation. Richardson Haney MD Carotid Artery Ultrasound 09/09/16 1028 Signed Impressions: Service Date/Time: September 10:43 - CONCLUSION: 1. Moderate visible plaque without hemodynamically significant stenosis identified. No significant change from August 25. Amado Crain MD Renal Ultrasound 09/09/16 0000 Signed Impressions: Service Date/Time: September 15:41 - CONCLUSION: 1. Cortical atrophy with small bilateral renal cysts. No hydronephrosis. Amado Crain MD Head CT 09/08/16 5531 Signed Impressions: Service Date/Time: Thursday, September 08, 2016 23:41 - CONCLUSION: Stable noncontrast CT with no evidence of hemorrhage or acute infarction. Atrophy and chronic small vessel splenic changes remain. Sanya Cavazos MD Objective Remarks GENERAL: 75-year-old male currently on vent via trach SKIN: Warm and dry. Well perfused HEAD: Atraumatic. Normocephalic. ENT: Oral cavity is dry. NECK: Trachea midline. Trach site clean, dry CARDIOVASCULAR: IRR. S1, S2 no S4. Without murmur RESPIRATORY: Air entry decreased bilaterally at bases, scattered rhonchi. GASTROINTESTINAL: Abdomen soft, non-tender, nondistended. No guarding. BS active. MUSCULOSKELETAL: Extremities with trace to 1+ B/L lower extremity edema. No obvious deformities. NEUROLOGICAL: Opens eyes to command. Follows commands very weakly in all extremities except LUE. 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 Significant demyelination Followed by Dr. Jeffries/neurology. 10/[address] Prajapati in view of episodes of confusion. Nonfocal. EEG 10/07 bilateral PLEDs with episodic sharp activity EEG 10/10: Ongoing seizure activity with lightening sedation Repeat EEG 10/11/16-no seizure activity, moderate encephalopathy On fosphenytoin at 100 mg IV 3 times a day, levetiracetam 1500 mg IV twice a day and lacosamide 200 mg IV twice a day Dilantin level 10/11/16 9.3 -therapeutic with albumin correction Patient becomes lethargic after antiseizure medications- dose adjustments per neuro Meropenem, linezolid and famotidine all discontinued Off all continuos sedation CV: Coronary disease status post CABG ASCVD Carotid stenosis TAAA Hypertension Dyslipidemia History atrial fibrillation status post ablation 2011 Followed by cardiology. Currently off atorvastatin 40 mg daily/home medication for dyslipidemia (reported ? statin induced myopathy) 10/14 Resumed PO Apixaban 5 mg twice a day per cardiology and aspirin 81 mg by mouth daily. Hold for PEG today Off amiodarone for suspected pulmonary toxicity Echocardiogram revealed EF 70%. OHS septal motion./Paradoxical, CARA 50-60 mmHg Currently labetalol 100 mg 3 times a day for hypertension. 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 Souza. Tolerating CPAP. Ventilator bundle. TP 8-10 hours from today Was unable to extubate due to severe neuromuscular weakness and encephalopathy and CVA. 3rd intubation. Last 10/03 Off amiodarone for suspected pulmonary toxicity Albuterol/ipratropium every 6 hours with albuterol aerosols as indicated Chest x-ray 10/08 - improved bilateral subcutaneous emphysema neck. No obvious pneumothorax. CT chest ruled out pneumothorax. Likely barotrauma from mechanical ventilation. Methylprednisolone currently on 30 mg daily- ( Prednisone 40mg q day taper over' s several weeks recommended by nephrology for possible pantoprazole induced interstitial nephritis) Discontinued montelukast 10 mg by mouth daily in light of possible seizure threshold lowering/rare Pulmonary following Dr. Encinas Continue antibiotics per ID Dr. Nova - recommended lung biopsy. Patient showing clinical improvement CT surgery - [facility]: On Suplena goal 55 cc an hour (per dietary recommendations). Hold for PEG today On sucralfate 1 g by mouth 4 times daily for GI prophylaxis Docusate sodium 100 mg twice a day, senna liquid 8.6 mg twice a day and polyethylene glycol 3350 17 g twice daily for bowel regimen Metoclopramide 5 mill grams IV every 8 hours History of hydroureter Renal ultrasound revealed no hydronephrosis continue Choi Endo: Sliding scale insulin with NovoLog with Accu-Cheks every 6 hours/low regimen Renal: Acute on chronic kidney injury Holding IV Lasix. Reconsult nephrology if creat continued to worsen. Today 1.5 from 1.8. IV hydration for additional [address] 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 Slowly wean steroids due to this issue as above pulmonary section. Creatinine currently 1.5. BUN slightly improved Heme: History of colon cancer status post partial colectomy History of bladder cancer Normocytic anemia Leukocytosis Monitor CBC daily. Follow trends. Transfuse 1 unit of PRBC today in anticipation of PEG Noted elevated lambda and kappa Chains/ESR likely secondary underlying acute kidney injury. Evaluated by Dr. Mccollum/hematology ID: Likely hospital-acquired pneumonia Sepsis Meropenem//linezolid 09/27 through 10/07 Currently observe off ABX Pertinent cultures 10/03-repeat blood, urine Legionella and pneumococcal antigens and sputum cultures no growth 10/03-influenza negative 09/28 - blood cultures 2 - no growth 09/22 - sputum - no growth 09/16 - blood cultures 2 - no growth Recheck urine 10/09- Betty- changed choi Recheck blood cultures 2 and sputum 10/10. Repeat sputum culture 10/13/16 neg to date Off all antibiotics per infectious disease FEN: Hypernatremia - resolving Monitor and replete electrolytes free water 200 cc every 4 hours. MSK: PT evaluate and treat Prophylaxis - GI -sucralfate - DVT - SCD/apixaban Access - Right subclavian CVL placed 09/16 - 10/04 - Right IJ CVL 10/04-10/14 PIV Dispo: needs LTAC. Shadi Benz MD Oct 17, 2016 05:55
[2016-10-17] MEDS: ARTIFICIAL TEARS OPTH SOLN 15 ML BTL EACH EYE SCH ×2 (06:00→14:14)
[2016-10-17] MEDS: INSULIN ASPART SUPPLEMENTAL SCALE SQ SCH ×4 (06:00→17:19)
[2016-10-17] MEDS: CHLORHEXIDINE 0.12% (ORAL KIT) 15 ML CUP MT SCH ×2 (08:00→20:00)
[2016-10-17] MEDS: CALCIUM ACETATE 667 MG CAP PO SCH ×3 (08:41→17:19)
[2016-10-17] MEDS: FAMOTIDINE 20 MG TAB NG SCH ×2 (08:41→20:43)
[2016-10-17] MEDS: LABETALOL HCL 100 MG TAB PO SCH ×3 (08:42→17:19)
[2016-10-17] MEDS: DOCUSATE SODIUM 100 MG/10 ML UDC NG SCH ×2 (08:42→20:43)
[2016-10-17] MEDS: methylPREDNISolone SOD SUCC 40 MG/1 ML VIAL IV PUSH SCH (08:42)
[2016-10-17] MEDS: FUROSEMIDE 40 MG TAB NG SCH (08:42)
[2016-10-17] MEDS: ASPIRIN 81 MG CHEW TAB PEG SCH (08:42)
[2016-10-17] MEDS: levETIRAcetam INJ 500 MG in SODIUM CHLORIDE 0.9% INJ 100 ML IV SCH ×2 (08:43→20:44)
[2016-10-17] MEDS: SODIUM CHLORIDE 0.9% FLUSH 10 ML FLUSH IV FLUSH SCH ×2 (08:43→20:44)
[2016-10-17] MEDS: POLYETHYLENE GLYCOL 17 GM PKG NG SCH ×2 (08:44→20:43)
[2016-10-17] MEDS: SODIUM CHLORIDE 0.9% FLUSH 10 ML FLUSH IVF SCH (08:44)
[2016-10-17] MEDS: SENNOSIDES SYRUP 8.8 MG/5 ML CUP NG SCH ×2 (09:00→20:43)
--- NOTE | 2016-10-17 11:50 | HHI.GIFU ---
Subjective Remarks Resting in bed on CPAP, no distress. Tolerating TF. No distress. Flexiseal with liquid brown stool. (Rebecca Cortes) Objective Vitals I&O Vital Signs Date Time Temp Pulse Resp B/P (MAP) Pulse Ox O2 Delivery O2 Flow Rate FiO2 10/17/16 11:06 40 10/17/16 11:06 92 40 10/17/16 11:00 99.2 106 30 153/91 (111) 91 10/17/16 11:00 40 10/17/16 11:00 91 Mechanical Ventilator 2.00 40 10/17/16 11:00 106 10/17/16 10:18 93 40 10/17/16 08:41 96 45 10/17/16 07:21 95 50 10/17/16 07:00 60 10/17/16 07:00 105 10/17/16 07:00 92 Mechanical Ventilator 2.00 60 10/17/16 07:00 99.7 105 30 145/95 (112) 92 10/17/16 04:38 116 29 132/72 (92) 96 10/17/16 04:00 120 140/75 (96) 10/17/16 03:46 93 45 10/17/16 03:00 110 10/17/16 03:00 45 10/17/16 03:00 99.3 110 28 155/86 (109) 93 10/17/16 03:00 93 Mechanical Ventilator 45 10/17/16 02:00 107 168/89 (115) 10/17/16 00:29 96 45 10/16/16 23:00 95 Mechanical Ventilator 45 10/16/16 23:00 45 10/16/16 23:00 98.6 93 20 153/88 (109) 95 10/16/16 23:00 93 10/16/16 20:25 89 50 10/16/16 19:00 92 Mechanical Ventilator 45 10/16/16 19:00 45 10/16/16 19:00 98.8 81 19 135/79 (97) 92 10/16/16 19:00 81 10/16/16 16:20 97 45 10/16/16 15:00 83 10/16/16 15:00 45 10/16/16 15:00 98.5 83 20 140/78 (98) 99 10/16/16 15:00 99 Mechanical Ventilator 45 10/16/16 12:02 96 45 I/O 10/16/16 10/16/16 10/16/16 10/17/16 10/17/16 10/17/16 06:59 14:59 22:59 06:59 14:59 22:59 Intake Total 2181 ml 100 ml 1000 ml 800 ml Output Total 1230 ml 685 ml 700 ml Balance 951 ml 100 ml 315 ml 100 ml Intake Oral 400 ml IV Total 1152 ml 100 ml 600 ml 200 ml Tube Feeding 429 ml Other 600 ml 600 ml Output Urine Total 1180 ml 685 ml 500 ml Stool Total 50 ml 200 ml Gastric Drainage Total 0 ml Laboratory Date/Time Source Procedure Growth Status 10/10/16 12:08 Blood Peripheral Aerobic Blood Culture - Final NO GROWTH IN 5 DAYS Complete 10/10/16 12:08 Blood Peripheral Anaerobic Blood Culture - Final NO GROWTH IN 5 DAYS Complete 09/12/16 01:00 Stool Stool Stool Occult Blood (JAME) - Final HEMOCCULT NEGATIVE Complete 10/10/16 18:15 Sputum Endotracheal Gram Stain - Final Complete 10/10/16 18:15 Sputum Endotracheal Sputum Culture - Final HEAVY GROWTH NORMAL RESPIRATORY JAYNA Complete 10/09/16 14:00 Urine Catheterized Urine Urine Culture - Final Betty Albicans Complete Imaging Last Impressions Chest X-Ray 10/15/16 0000 Signed Impressions: Service Date/Time: Saturday, October 15, 2016 16:12 - CONCLUSION: Little change in patchy bilateral infiltrates. Jarad De Jesus MD Brain MRI 10/07/16 0000 Signed Impressions: Service Date/Time: September 21:45 - CONCLUSION: 1. Residual small areas of infarction seen bilaterally. There are fewer areas of signal abnormality seen on the diffusion-weighted images on the current exam. New areas of infarction are not present. 2. Areas of demyelination throughout the cerebral and pontine white matter likely from small vessel ischemic change. 3. Fluid in the mastoid air cells. Jarad Cat MD Abdomen X-Ray 10/07/16 0000 Signed Impressions: Service Date/Time: September 08:32 - CONCLUSION: Unremarkable bowel gas pattern. Sanya Cavazos MD Neck CT 10/05/16 0000 Signed Impressions: Service Date/Time: Wednesday, October 05, 2016 10:41 - CONCLUSION: Extensive subcutaneous emphysema. Jarad De Jesus MD Chest CT 10/05/16 0000 Signed Impressions: Service Date/Time: Wednesday, October 05, 2016 10:43 - CONCLUSION: Prior median sternotomy cardiac surgery atherosclerotic cardiovascular disease with left ventricular cardiomegaly and evidence of interstitial alveolar edema in both lungs consistent with CHF. Support tubes in place with subcutaneous emphysema in the soft tissues of neck bilaterally and supraclavicular. There is no evidence of pneumothorax. Lele Escudero MD Head Magnetic Resonance Angiography 09/10/16 1028 Signed Impressions: Service Date/Time: Saturday, September 10, 2016 10:57 - CONCLUSION: 1. Unremarkable MRA examination without evidence for large vessel occlusion, aneurysm, or vascular malformation. Richardson Haney MD Carotid Artery Ultrasound 09/09/16 1028 Signed Impressions: Service Date/Time: September 10:43 - CONCLUSION: 1. Moderate visible plaque without hemodynamically significant stenosis identified. No significant change from August 25. Amado Crain MD Renal Ultrasound 09/09/16 0000 Signed Impressions: Service Date/Time: September 15:41 - CONCLUSION: 1. Cortical atrophy with small bilateral renal cysts. No hydronephrosis. Amado Crain MD Head CT 09/08/16 2251 Signed Impressions: Service Date/Time: Thursday, September 08, 2016 23:41 - CONCLUSION: Stable noncontrast CT with no evidence of hemorrhage or acute infarction. Atrophy and chronic small vessel splenic changes remain. Sanya Cavazos MD Physical Exam HEENT: Normocephalic; atraumatic; no jaundice. CHEST: Tracheostomy to CPAP. Course breath sounds CARDIAC: RRR ABDOMEN: Soft, obese, nondistended, nontender; no hepatosplenomegaly; bowel sounds are present in all four quadrants. PEG tube site without redness or swelling EXTREMITIES: Generalized edema. 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 Does not follow commands (Rebecca Cortes) Assessment and Plan Plan ASSESSMENT: - Dysphagia, Malnutrition. Pt hospitalized for left occipital, bilateral frontal parietal cerebellar CVA subacute, s/p tracheostomy for acute respiratory failure/need for prolonged ventilation. Machine Hoop Maker recommends Suplena at 55cc/hr. S/P EGD with PEG tube placement (10/15/16)---> moderate gastritis body and antrum, s/p peg. Site without redness or swelling. Tolerating TF. - Gastritis in antrum/body of stomach. No biopsies (had eliquis). Check stool for H. Pylori Ag. carafate. Allergy to protonix - Anemia with hemoglobin trending down. 8.5/25.7. EGD as above. - Respiratory failure, PNA. S/P tracheostomy. CPAP. Steroids. - Atrial fibrillation, subacute cva. Eliquis - Leukocytosis, low grade fever. BCx no growth 4 days (10/10). Heavy growth normal respiratory jayna (10/10), Betty albicans in urine (10/09) Per attending. - ANNY, with electrolyte abnormalities. - CAD, HTN, Hyperlipidemia per attending PLAN: - Suplena at 55cc/hr - Cont. Carafate - Allergy to Protonix - Stool for H. Pylori ag - Supportive care - Further recommendations to follow based on results of above - Pt seen and examined by Dr. Bradford and myself and this note is written on her behalf (Rebecca Cortes) Rebecca Cortes Oct 17, 2016 11:50 Lauryn Bradford MD Oct 18, 2016 17:09
[2016-10-17] MEDS ORDERED: PANTOPRAZOLE SODIUM 40 MG VIAL IV PUSH SCH (12:00)
[2016-10-17 12:35] LABS: HEMATOCRIT 27.2 % (39.0-51.0); MEAN CELL VOLUME 92.6 FL (80.0-100.0); MEAN CORPUSCULAR HEMOGLOBIN 29.6 PG (27.0-34.0); PLATELET COUNT 181 TH/MM3 (150-450); RED BLOOD COUNT 2.94 MIL/MM3 (4.50-5.90); RED CELL DISTRIBUTION WIDTH 16.9 % (11.6-17.2); REVIEW FLAG FINAL; WHITE BLOOD COUNT 14.4 TH/MM3 (4.0-11.0)
[2016-10-17 13:05] LABS: BICARBONATE 28.5 MEQ/L (21.0-32.0); POTASSIUM 3.6 MEQ/L (3.5-5.1)
[2016-10-17] MEDS: APIXABAN 5 MG TABLET PO SCH (20:43)
[2016-10-18] VITALS (13 sets, daily range): BP systolic 109–159; BP diastolic 64–93; PULSE 82–110; RESP 24–33; TEMP 99–100.2; O2SAT 94–99
[2016-10-18] MEDS: LACOSAMIDE INJ 200 MG in SODIUM CHLORIDE 0.9% INJ 100 ML IV SCH ×2 (00:49→12:05)
[2016-10-18] MEDS: METOCLOPRAMIDE HCL 10 MG/2 ML VIAL IV PUSH SCH ×4 (00:50→23:30)
[2016-10-18] MEDS: ARTIFICIAL TEARS OPTH SOLN 15 ML BTL EACH EYE SCH ×4 (00:50→23:20)
[2016-10-18] MEDS: SUCRALFATE 1 GM/10 ML CUP NG SCH ×5 (00:50→23:30)
[2016-10-18] MEDS: FREE WATER G-TUBE SCH ×6 (04:00→20:00)
[2016-10-18] MEDS: INSULIN ASPART SUPPLEMENTAL SCALE SQ SCH ×4 (06:00→17:52)
[2016-10-18 07:22] LABS: HEMATOCRIT 24.5 % (39.0-51.0); MEAN CELL VOLUME 92.8 FL (80.0-100.0); MEAN CORPUSCULAR HEMOGLOBIN 30.3 PG (27.0-34.0); MEAN CORPUSCULAR HGB CONC 32.7 % (32.0-36.0); PLATELET COUNT 169 TH/MM3 (150-450); RED BLOOD COUNT 2.64 MIL/MM3 (4.50-5.90); RED CELL DISTRIBUTION WIDTH 16.9 % (11.6-17.2); REVIEW FLAG FINAL; WHITE BLOOD COUNT 13.2 TH/MM3 (4.0-11.0)
[2016-10-18 07:31] LABS: BICARBONATE 29.3 MEQ/L (21.0-32.0); POTASSIUM 3.2 MEQ/L (3.5-5.1)
[2016-10-18] MEDS: LABETALOL HCL 100 MG/20 ML VIAL IV PUSH PRN ×2 (07:37→23:21)
[2016-10-18] MEDS: CHLORHEXIDINE 0.12% (ORAL KIT) 15 ML CUP MT SCH ×2 (08:00→20:00)
[2016-10-18] MEDS ORDERED: POTASSIUM CHLORIDE 20 MEQ PWD PACKET PEG ONE (08:45)
[2016-10-18] MEDS: SENNOSIDES SYRUP 8.8 MG/5 ML CUP NG SCH ×2 (09:00→20:20)
[2016-10-18] MEDS: SODIUM CHLORIDE 0.9% FLUSH 10 ML FLUSH IVF SCH (09:00)
[2016-10-18] MEDS: POLYETHYLENE GLYCOL 17 GM PKG NG SCH ×2 (09:00→20:21)
[2016-10-18] MEDS: APIXABAN 5 MG TABLET PO SCH ×2 (09:03→20:21)
[2016-10-18] MEDS: DOCUSATE SODIUM 100 MG/10 ML UDC NG SCH ×2 (09:03→20:20)
[2016-10-18] MEDS: CALCIUM ACETATE 667 MG CAP PO SCH ×3 (09:04→17:41)
[2016-10-18] MEDS: FAMOTIDINE 20 MG TAB NG SCH ×2 (09:04→20:21)
[2016-10-18] MEDS: LABETALOL HCL 100 MG TAB PO SCH ×3 (09:04→17:41)
[2016-10-18] MEDS: levETIRAcetam INJ 500 MG in SODIUM CHLORIDE 0.9% INJ 100 ML IV SCH ×2 (09:04→20:20)
[2016-10-18] MEDS: FUROSEMIDE 40 MG TAB NG SCH (09:04)
[2016-10-18] MEDS: methylPREDNISolone SOD SUCC 40 MG/1 ML VIAL IV PUSH SCH (09:04)
[2016-10-18] MEDS: SODIUM CHLORIDE 0.9% FLUSH 10 ML FLUSH IV FLUSH SCH ×2 (09:05→20:21)
[2016-10-18] MEDS: ASPIRIN 81 MG CHEW TAB PEG SCH (09:06)
--- NOTE | 2016-10-18 10:54 | HHI.CCPN ---
Subjective Remarks/Hospital Course 75 y/o man now about 4 weeks following CABG complicated by CVA. Presented back 08/28 with new onset right arm weakness. Hospital course has been complicated by CKD and fluid overload. We have attempted BiPAP for several hours but he remains in distress and although oxygenation is acceptable work of breathing is excessive. Worrisome increasing metabolic acidosis. 09/17: Gas exchange much improved. BNP 1681, ScVO2 71%. It appears that cardiac output is more than adequate for peripheral needs and the primary pathology is renal failure and fluid overload. If we can manage volume I can probably get him extubated. 09/18: Diffuse crackles. Needs to be diuresed today. Tolerating extubation but at risk for hypoxemic failure again. 09/20 - Re consulted due to worsening hypoxia. Currently on nonrebreather mask. Chest x-ray shows worsening consolidation right lobe creatinine slightly improved over. Family request transfer to [facility] however refused. We'll attempt to decipher status currently unknown. 09/21: Remains on nonrebreather mask. Saturations between 89-97%. Chest x-ray unchanged. Not tachypnea. Not confused. 09/22: Radiographic studies show diffuse interstitial process with skip areas - more indicative of infectious/inflammatory process. Sats 85% with labored pattern. Required intubation for deteriorating respiratory status. 09/23: Gas exchange improving. Pulmonary infiltrates remain very concerning - if most recent sputum is benign I would not be opposed to steroids. 09/24: Extubated today. On 3 L nasal cannula. Passed swallow evaluation. Appropriate interactive status post extubation. 09/29: Critical care reconsult requested by Dr. Meza for respiratory failure. Patient reportedly was on BiPAP this morning. He was given additional diuretic earlier as he was short of breath. With this he seems to have improved somewhat and has been on a nonrebreather facemask for more than a few hours. He states that he is breathing much better. Patient being adamant about not using BiPAP. I had a detailed conversation about the importance of using BiPAP especially at night in view of his history of sleep apnea. Patient did not appear to be in acute distress though he was requiring a nonrebreather facemask at the time of my evaluation. No urgent need for BiPAP or intubation at this time. In fact patient is stating that he is breathing much better than this morning. 09/30: Remains on nonrebreather facemask. Refused BiPAP at night. States that he is breathing better today than yesterday. 10/01: 02 30 L/m 100% FiO2. O2 sats borderline. Episodes of confusion. When I evaluated the patient he was sitting up in bed and was able to converse. Not using accessory muscles of respirations currently. 10/02: The patient is alert and oriented currently has been weaned down to high flow nasal cannula with an FiO2 of 65%, maintaining O2 saturation to 95%. Patient is appropriately conversant no episodes of confusion noted. 10/03: Yesterday, the patient received 2 units of packed red blood cells with Furosemide dosing in between transfusion of units, with diuresis of approximately 2900 cc. Last night, the patient was noted to have respiratory decompensation, continued refusal to utilize BiPAP during the night. FiO2 requirements increased to 100% this a.m., on high flow nasal cannula, with noted accessory muscle use and inability to speak in complete sentences secondary to dyspnea. The patient received additional dose of Lasix this a.m. , chest x-ray appeared to be worsened this a.m. .Patient subsequently became hypoxic requiring emergent intubation this a.m.., O2 sat saturation 80s on 100 % FiO2. 10/04: Intubated yesterday due to general and hypoxia. Diuresed with 80 mg furosemide 1. Tmax 99.8. Currently 97.8. Tube feeds initiated. No bowel movement. 10/05: Afebrile. Subcutaneous air in neck bilaterally on chest x-ray today. No obvious pneumothorax. No pneumothorax on chest x-ray yesterday post central line placement. Tolerating tube feeding. No bowel movement. 10/06: Currently resting in bed. Subcutaneous air neck much improved. X-ray improved. FiO2 down to 40%. Tolerating tube feeding. One bowel movement. 10/07: Afebrile. Currently on propofol drip at 40 mg/kg per minute. X-ray has improved. Currently not tolerating tube feeds. 2 bowel movements documented. Sedation vacation today ordered. 10/08: Afebrile. Saturations 95% on FiO2 50%. MRI brain showed no acute findings last night. EEG repeated for today. PLEDs on previous EEG. Vimpat along with fosphenytoin added per neurology. Arousable on the ventilator. Tube feeds to be resumed today. Discussed with at length yesterday 10/09: MAXIMUM TEMPERATURE 99.5. Currently 99.3. Tube feeds currently at 20 cc an hour. Minimal residuals. Arousable and intermittently follows commands mostly with right upper extremity. 10/10: Febrile. Tube feeds currently at 25 cc an hour. Minimal residuals. Positive BM. Not arousable this AM. EEG still reveals underlying sharp spikes. Vimpat increased yesterday. 10/11: Remains intubated tachypneic on CPAP 11/11, Lethargic not consistently following commands. After being placed on 06/11 patient is more tachypneic, breathing in mid 30s 10/12: Remains intubated off sedation. Very lethargic, copious oral secretions and moderate ET tube secretions. We'll discuss with general surgery regarding tracheostomy today. 10/11/16 did not show seizure activity but moderate encephalopathy 10/13: Remains off sedation quite lethargic. We except to sternal rub. We believe follows commands on right upper and bilateral lower extremities. Low- grade fever. Tracheostomy planned for afternoon 10/14: s/p trach yesterday. Remains lethargic, but follows commands on the right side. Increase in white count noted. Creatinine increasing now 1.8. Will discontinue IV Lasix and give IV hydration for 24 hours. Attempt T piece 2-4 hours 10/15: s/p trach yesterday. Tolerated TP 2 hours. Remains lethargic, weakly follows commands. PEG today. Cr improved from 1.8 to 1.5 with gentle hydration 10/16: no changes. Cr slowly improving. 10/17: no clinical improvements. awaiting placement. weather concerns prevent further movement towards placement in LTAC. Subjective: 10/18: no changes. ready for LTAC. Objective Vital Signs Date Time Temp Pulse Resp B/P (MAP) Pulse Ox O2 Delivery O2 Flow Rate FiO2 10/18/16 07:51 98 65 10/18/16 07:00 99.6 109 33 159/93 (115) 10/18/16 07:00 Mechanical Ventilator 10/17/16 11:00 Intake and Output 10/18/16 10/18/16 10/19/16 08:00 16:00 00:00 Intake Total 1327 ml Output Total 800 ml Balance 527 ml Result Diagram: 10/18/1662110/18/16621 Imaging Last Impressions Chest X-Ray 10/10/16 0600 Signed Impressions: Service Date/Time: Monday, October 10, 2016 04:25 - CONCLUSION: 1. Support apparatus in satisfactory position. Patchy airspace and interstitial changes similar to October 2. Amado Crain MD Brain MRI 10/07/16 0000 Signed Impressions: Service Date/Time: September 21:45 - CONCLUSION: 1. Residual small areas of infarction seen bilaterally. There are fewer areas of signal abnormality seen on the diffusion-weighted images on the current exam. New areas of infarction are not present. 2. Areas of demyelination throughout the cerebral and pontine white matter likely from small vessel ischemic change. 3. Fluid in the mastoid air cells. Jarad Cat MD Abdomen X-Ray 10/07/16 Signed Impressions: Service Date/Time: September 08:32 - CONCLUSION: Unremarkable bowel gas pattern. Sanya Cavazos MD Neck CT 10/05/16 Signed Impressions: Service Date/Time: Wednesday, October 05, 2016 10:41 - CONCLUSION: Extensive subcutaneous emphysema. Jarad De Jesus MD Chest CT 10/05/16 Signed Impressions: Service Date/Time: Wednesday, October 05, 2016 10:43 - CONCLUSION: Prior median sternotomy cardiac surgery atherosclerotic cardiovascular disease with left ventricular cardiomegaly and evidence of interstitial alveolar edema in both lungs consistent with CHF. Support tubes in place with subcutaneous emphysema in the soft tissues of neck bilaterally and supraclavicular. There is no evidence of pneumothorax. Lele Escudero MD Head Magnetic Resonance Angiography 09/10/168 Signed Impressions: Service Date/Time: Saturday, September 10, 2016 10:57 - CONCLUSION: 1. Unremarkable MRA examination without evidence for large vessel occlusion, aneurysm, or vascular malformation. Richardson Haney MD Carotid Artery Ultrasound 09/09/168 Signed Impressions: Service Date/Time: September 10:43 - CONCLUSION: 1. Moderate visible plaque without hemodynamically significant stenosis identified. No significant change from August 25. Amado Crain MD Renal Ultrasound 09/09/16 0000 Signed Impressions: Service Date/Time: September 15:41 - CONCLUSION: 1. Cortical atrophy with small bilateral renal cysts. No hydronephrosis. Amado Crani MD Head CT 09/08/16 [id number] Signed Impressions: Service Date/Time: Thursday, September 08, 2016 23:41 - CONCLUSION: Stable noncontrast CT with no evidence of hemorrhage or acute infarction. Atrophy and chronic small vessel splenic changes remain. Sanya Cavazos MD Objective Remarks GENERAL: 75-year-old male currently on vent via trach SKIN: Warm and dry. Well perfused HEAD: Atraumatic. Normocephalic. ENT: Oral cavity is dry. NECK: Trachea midline. Trach site clean, dry CARDIOVASCULAR: IRR. S1, S2 no S4. Without murmur RESPIRATORY: Air entry decreased bilaterally at bases, scattered rhonchi. GASTROINTESTINAL: Abdomen soft, non-tender, nondistended. No guarding. BS active. MUSCULOSKELETAL: Extremities with trace to 1+ B/L lower extremity edema. No obvious deformities. NEUROLOGICAL: Opens eyes to command. Follows commands very weakly in all extremities except LUE. Procedures 10/03- intubation Date of Insertion: Oct 03, 2016 Date of Insertion: Oct 04, 2016 Line: Central Venous Catheter Side: Right Location: Internal, Jugular A/P Assessment and Plan Neuro/Psych: Left occipital, bilateral frontal parietal cerebellar CVA subacute Seizure Encephalopathy Chronic headaches Chronic benzodiazepine use, chronic oxycodone use MRI 09/10 brain revealed left occipital, bilateral frontal parietal and cerebellar CVA likely ALFIE/[employer] distribution MRI brain 10/07 - Residual frontal/parietal and occipital junction CVA. Significant demyelination Followed by Dr. Jeffries/neurology. 10/[address] Prajapati in view of episodes of confusion. Nonfocal. EEG 10/07 bilateral PLEDs with episodic sharp activity EEG 10/10: Ongoing seizure activity with lightening sedation Repeat EEG 10/11/16-no seizure activity, moderate encephalopathy On fosphenytoin at 100 mg IV 3 times a day, levetiracetam 1500 mg IV twice a day and lacosamide 200 mg IV twice a day Dilantin level 10/11/16 9.3 -therapeutic with albumin correction Patient becomes lethargic after antiseizure medications- dose adjustments per neuro Meropenem, linezolid and famotidine all discontinued Off all continuos sedation CV: Coronary disease status post CABG ASCVD Carotid stenosis TAAA Hypertension Dyslipidemia History atrial fibrillation status post ablation 2011 Followed by cardiology. Currently off atorvastatin 40 mg daily/home medication for dyslipidemia (reported ? statin induced myopathy) 10/14 Resumed PO Apixaban 5 mg twice a day per cardiology and aspirin 81 mg by mouth daily. Hold for PEG today Off amiodarone for suspected pulmonary toxicity Echocardiogram revealed EF 70%. OHS septal motion./Paradoxical, CARA 50-60 mmHg Currently labetalol 100 mg 3 times a day for hypertension. 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 Souza. Tolerating CPAP. Ventilator bundle. TP 8-10 hours from today Was unable to extubate due to severe neuromuscular weakness and encephalopathy and CVA. 3rd intubation. Last 10/03 Off amiodarone for suspected pulmonary toxicity Albuterol/ipratropium every 6 hours with albuterol aerosols as indicated Chest x-ray 10/08 - improved bilateral subcutaneous emphysema neck. No obvious pneumothorax. CT chest ruled out pneumothorax. Likely barotrauma from mechanical ventilation. Methylprednisolone currently on 30 mg daily- ( Prednisone 40mg q day taper over' s several weeks recommended by nephrology for possible pantoprazole induced interstitial nephritis) Discontinued montelukast 10 mg by mouth daily in light of possible seizure threshold lowering/rare Pulmonary following Dr. Encinas Continue antibiotics per ID Dr. Nova - recommended lung biopsy. Patient showing clinical improvement CT surgery - [facility]: On Suplena goal 55 cc an hour (per dietary recommendations). Hold for PEG today On sucralfate 1 g by mouth 4 times daily for GI prophylaxis Docusate sodium 100 mg twice a day, senna liquid 8.6 mg twice a day and polyethylene glycol 3350 17 g twice daily for bowel regimen Metoclopramide 5 mill grams IV every 8 hours History of hydroureter Renal ultrasound revealed no hydronephrosis continue Choi Endo: Sliding scale insulin with NovoLog with Accu-Cheks every 6 hours/low regimen Renal: Acute on chronic kidney injury Holding IV Lasix. Reconsult nephrology if creat continued to worsen. Today 1.5 from 1.8. IV hydration for additional [address] 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 Slowly wean steroids due to this issue as above pulmonary section. Creatinine currently 1.5. BUN slightly improved Heme: History of colon cancer status post partial colectomy History of bladder cancer Normocytic anemia Leukocytosis Monitor CBC daily. Follow trends. Transfuse 1 unit of PRBC today in anticipation of PEG Noted elevated lambda and kappa Chains/ESR likely secondary underlying acute kidney injury. Evaluated by Dr. Mccollum/hematology ID: Likely hospital-acquired pneumonia Sepsis Meropenem//linezolid 09/27 through 10/07 Currently observe off ABX Pertinent cultures 10/03-repeat blood, urine Legionella and pneumococcal antigens and sputum cultures no growth 10/03-influenza negative 09/28 - blood cultures 2 - no growth 09/22 - sputum - no growth 09/16 - blood cultures 2 - no growth Recheck urine 10/09- Betty- changed choi Recheck blood cultures 2 and sputum 10/10. Repeat sputum culture 10/13/16 neg to date Off all antibiotics per infectious disease FEN: Hypernatremia - resolving Monitor and replete electrolytes free water 200 cc every 4 hours. MSK: PT evaluate and treat Prophylaxis - GI -sucralfate - DVT - SCD/apixaban Access - Right subclavian CVL placed 09/16 - 10/04 - Right IJ CVL 10/04-10/14 PIV Dispo: needs LTAC. Shadi Benz MD Oct 18, 2016 10:54
--- NOTE | 2016-10-18 14:37 | HHI.PR ---
Subjective Remarks Had a trach done .Back on A/C rate10 and FIo2 65%. More lethargic .Chest X Ray not done Objective Vital Signs Date Time Temp Pulse Resp B/P (MAP) Pulse Ox O2 Delivery O2 Flow Rate FiO2 10/18/16 11:00 65 10/18/16 11:00 98 Mechanical Ventilator 65 10/18/16 11:00 98 65 10/18/16 07:51 98 65 10/18/16 07:00 99.6 109 33 159/93 (115) 98 10/18/16 07:00 110 10/18/16 07:00 97 Mechanical Ventilator 65 10/18/16 07:00 65 10/18/16 03:30 98 65 10/18/16 03:00 65 10/18/16 03:00 105 10/18/16 03:00 99.0 105 27 157/88 (111) 99 10/18/16 03:00 99 Mechanical Ventilator 65 10/18/16 00:21 98 65 10/17/16 23:00 96 10/17/16 23:00 99.2 96 24 156/88 (110) 99 10/17/16 23:00 99 Mechanical Ventilator 65 10/17/16 23:00 65 10/17/16 22:50 96 65 10/17/16 20:40 97 65 10/17/16 19:00 97 Mechanical Ventilator 65 10/17/16 19:00 65 10/17/16 19:00 93 10/17/16 19:00 99.5 93 28 154/91 (112) 96 10/17/16 16:15 97 65 10/17/16 15:00 70 10/17/16 15:00 99.3 97 28 134/70 (91) 97 10/17/16 15:00 97 10/17/16 15:00 97 Mechanical Ventilator 70 I/O 10/17/16 10/17/16 10/17/16 10/18/16 10/18/16 10/18/16 07:00 15:00 23:00 07:00 15:00 23:00 Intake Total 1455 ml 225 ml 1001 ml 1327 ml Output Total 700 ml 1050 ml 800 ml Balance 755 ml 225 ml -49 ml 527 ml IV Total 425 ml 225 ml 200 ml Tube Feeding 430 ml 401 ml 527 ml Other 600 ml 600 ml 600 ml Output Urine Total 500 ml 750 ml 600 ml Stool Total 200 ml 300 ml 200 ml Gastric Drainage Total 0 ml # Bowel Movements 2 Result Diagram: 10/18/1662110/18/16621 Objective Remarks GENERAL: This moderately overweight elderly man , with a trach HEENT: Head is normocephalic. Pupils are reactive. Tongue is moist. Throat clear NECK: No venous distention. No thyroid enlargement. CHEST: Equal movements with diminished breath sounds at the bases with Occ basal crackles.Wheeze heard HEART: Sounds are irregular S1-S2. No murmur. ABDOMEN: Soft. Protuberant without masses. No organomegaly. EXTREMITIES: Decreased pulses.1 + Edema SKIN: warm. Neuro : lethargic.Moves arms and feet. Assessment and Plan Assessment and Plan IMPRESSION 1. Acute respiratory failure.Resolving 2. Fluid overload status with pulmonary edema. 3. Acute kidney failure.Resolving 4. History of cerebrovascular accident. 5. Bibasilar atelectasis with possible pneumonia. 6. History of colon cancer and bladder cancer. 7. Possible Hypersensitivity Pneumonia or Edema Plan : 1. No sedation 2. Place on A/C rate 10 and FIO2 50 % 3. Nebs qid ,Duoneb. 4. Trach lavage and suction 5. Antibiotics per ID 6. Cont Keppra/Dilantin 7.Get CXR today 8. Culture trach secretions Jaime Encinas MD Oct 18, 2016 14:36
--- NOTE | 2016-10-18 15:16 | RADRPT ---
EXAM DATE/TIME: 10/18/2016 15:05 [facility] COMPARISON: CHEST SINGLE AP, October 15, 2016, 16:12. INDICATIONS : Shortness of breath. MEDICAL HISTORY : None. SURGICAL HISTORY : CABG. ENCOUNTER: Subsequent ACUITY: 4 - 6 days PAIN SCORE: Non-responsive. LOCATION: Bilateral chest FINDINGS: Stable tracheostomy in place. Continued patchy bilateral mixed interstitial and alveolar opacities bi laterally, more confluent in the left lower lung zone. Cardiac silhouette is enlarged. Central pulmon elvira vascularity is indistinct. Remainder of the exam is unchanged. CONCLUSION: 1. Stable coarse bilateral mixed interstitial and alveolar opacities, more confluent in the left lowe r lung zone. 2. No significant interval change. Richardson Haney MD on October 18, 2016 at 15:13 Board Certified Radiologist. This report was verified electronically.
[2016-10-18] MEDS: RESP: ALBUTEROL 2.5 MG/3 ML NEB (PRN) NEB (21:27)
[2016-10-19] VITALS (12 sets, daily range): BP systolic 140–158; BP diastolic 8–91; PULSE 89–110; RESP 25–31; TEMP 97.7–100.5; O2SAT 94–98
[2016-10-19] MEDS: LACOSAMIDE INJ 200 MG in SODIUM CHLORIDE 0.9% INJ 100 ML IV SCH ×2 (00:12→11:20)
[2016-10-19] MEDS: FREE WATER G-TUBE SCH ×6 (04:00→20:00)
[2016-10-19] MEDS: INSULIN ASPART SUPPLEMENTAL SCALE SQ SCH ×4 (05:57→17:13)
[2016-10-19] MEDS: METOCLOPRAMIDE HCL 10 MG/2 ML VIAL IV PUSH SCH ×3 (05:57→22:49)
[2016-10-19] MEDS: ARTIFICIAL TEARS OPTH SOLN 15 ML BTL EACH EYE SCH ×3 (05:57→22:49)
[2016-10-19] MEDS: SUCRALFATE 1 GM/10 ML CUP NG SCH ×3 (06:16→17:15)
[2016-10-19 08:39] LABS: HEMATOCRIT 22.4 % (39.0-51.0); MEAN CELL VOLUME 92.9 FL (80.0-100.0); MEAN CORPUSCULAR HEMOGLOBIN 30.9 PG (27.0-34.0); MEAN CORPUSCULAR HGB CONC 33.3 % (32.0-36.0); PLATELET COUNT 162 TH/MM3 (150-450); RED BLOOD COUNT 2.42 MIL/MM3 (4.50-5.90); RED CELL DISTRIBUTION WIDTH 16.9 % (11.6-17.2); REVIEW FLAG FINAL; WHITE BLOOD COUNT 10.8 TH/MM3 (4.0-11.0)
[2016-10-19] MEDS ORDERED: FUROSEMIDE 20 MG/2 ML VIAL IV PUSH ONE (08:45)
--- NOTE | 2016-10-19 08:47 | HHI.CCPN ---
Subjective Remarks/Hospital Course 75 y/o man now about 4 weeks following CABG complicated by CVA. Presented back 08/28 with new onset right arm weakness. Hospital course has been complicated by CKD and fluid overload. We have attempted BiPAP for several hours but he remains in distress and although oxygenation is acceptable work of breathing is excessive. Worrisome increasing metabolic acidosis. 09/17: Gas exchange much improved. BNP 1681, ScVO2 71%. It appears that cardiac output is more than adequate for peripheral needs and the primary pathology is renal failure and fluid overload. If we can manage volume I can probably get him extubated. 09/18: Diffuse crackles. Needs to be diuresed today. Tolerating extubation but at risk for hypoxemic failure again. 09/20 - Re consulted due to worsening hypoxia. Currently on nonrebreather mask. Chest x-ray shows worsening consolidation right lobe creatinine slightly improved over. Family request transfer to [facility] however refused. We'll attempt to decipher status currently unknown. 09/21: Remains on nonrebreather mask. Saturations between 89-97%. Chest x-ray unchanged. Not tachypnea. Not confused. 09/22: Radiographic studies show diffuse interstitial process with skip areas - more indicative of infectious/inflammatory process. Sats 85% with labored pattern. Required intubation for deteriorating respiratory status. 09/23: Gas exchange improving. Pulmonary infiltrates remain very concerning - if most recent sputum is benign I would not be opposed to steroids. 09/24: Extubated today. On 3 L nasal cannula. Passed swallow evaluation. Appropriate interactive status post extubation. 09/29: Critical care reconsult requested by Dr. Meza for respiratory failure. Patient reportedly was on BiPAP this morning. He was given additional diuretic earlier as he was short of breath. With this he seems to have improved somewhat and has been on a nonrebreather facemask for more than a few hours. He states that he is breathing much better. Patient being adamant about not using BiPAP. I had a detailed conversation about the importance of using BiPAP especially at night in view of his history of sleep apnea. Patient did not appear to be in acute distress though he was requiring a nonrebreather facemask at the time of my evaluation. No urgent need for BiPAP or intubation at this time. In fact patient is stating that he is breathing much better than this morning. 09/30: Remains on nonrebreather facemask. Refused BiPAP at night. States that he is breathing better today than yesterday. 10/01: 02 30 L/m 100% FiO2. O2 sats borderline. Episodes of confusion. When I evaluated the patient he was sitting up in bed and was able to converse. Not using accessory muscles of respirations currently. 10/02: The patient is alert and oriented currently has been weaned down to high flow nasal cannula with an FiO2 of 65%, maintaining O2 saturation to 95%. Patient is appropriately conversant no episodes of confusion noted. 10/03: Yesterday, the patient received 2 units of packed red blood cells with Furosemide dosing in between transfusion of units, with diuresis of approximately 2900 cc. Last night, the patient was noted to have respiratory decompensation, continued refusal to utilize BiPAP during the night. FiO2 requirements increased to 100% this a.m., on high flow nasal cannula, with noted accessory muscle use and inability to speak in complete sentences secondary to dyspnea. The patient received additional dose of Lasix this a.m. , chest x-ray appeared to be worsened this a.m. .Patient subsequently became hypoxic requiring emergent intubation this a.m.., O2 sat saturation 80s on 100 % FiO2. 10/04: Intubated yesterday due to general and hypoxia. Diuresed with 80 mg furosemide 1. Tmax 99.8. Currently 97.8. Tube feeds initiated. No bowel movement. 10/05: Afebrile. Subcutaneous air in neck bilaterally on chest x-ray today. No obvious pneumothorax. No pneumothorax on chest x-ray yesterday post central line placement. Tolerating tube feeding. No bowel movement. 10/06: Currently resting in bed. Subcutaneous air neck much improved. X-ray improved. FiO2 down to 40%. Tolerating tube feeding. One bowel movement. 10/07: Afebrile. Currently on propofol drip at 40 mg/kg per minute. X-ray has improved. Currently not tolerating tube feeds. 2 bowel movements documented. Sedation vacation today ordered. 10/08: Afebrile. Saturations 95% on FiO2 50%. MRI brain showed no acute findings last night. EEG repeated for today. PLEDs on previous EEG. Vimpat along with fosphenytoin added per neurology. Arousable on the ventilator. Tube feeds to be resumed today. Discussed with at length yesterday 10/09: MAXIMUM TEMPERATURE 99.5. Currently 99.3. Tube feeds currently at 20 cc an hour. Minimal residuals. Arousable and intermittently follows commands mostly with right upper extremity. 10/10: Febrile. Tube feeds currently at 25 cc an hour. Minimal residuals. Positive BM. Not arousable this AM. EEG still reveals underlying sharp spikes. Vimpat increased yesterday. 10/11: Remains intubated tachypneic on CPAP 11/11, Lethargic not consistently following commands. After being placed on 06/11 patient is more tachypneic, breathing in mid 30s 10/12: Remains intubated off sedation. Very lethargic, copious oral secretions and moderate ET tube secretions. We'll discuss with general surgery regarding tracheostomy today. 10/11/16 did not show seizure activity but moderate encephalopathy 10/13: Remains off sedation quite lethargic. We except to sternal rub. We believe follows commands on right upper and bilateral lower extremities. Low- grade fever. Tracheostomy planned for afternoon 10/14: s/p trach yesterday. Remains lethargic, but follows commands on the right side. Increase in white count noted. Creatinine increasing now 1.8. Will discontinue IV Lasix and give IV hydration for 24 hours. Attempt T piece 2-4 hours 10/15: s/p trach yesterday. Tolerated TP 2 hours. Remains lethargic, weakly follows commands. PEG today. Cr improved from 1.8 to 1.5 with gentle hydration 10/16: no changes. Cr slowly improving. 10/17: no clinical improvements. awaiting placement. weather concerns prevent further movement towards placement in LTAC. Subjective: 10/18: no changes. ready for LTAC. 10/19: Unable to wean. Increasing oxygen requirements overnight. PEEP up to 10, FiO2 55%. Chest x-ray from yesterday shows increasing alveolar and interstitial infiltrates. Increase PO Lasix to 40 BID and additional IV Lasix 20 mg x1. Sputum culture from yesterday pending Objective Vital Signs Date Time Temp Pulse Resp B/P (MAP) Pulse Ox O2 Delivery O2 Flow Rate FiO2 10/19/16 04:35 94 50 10/19/16 03:23 Trach Collar 10/19/16 03:23 99.0 97 25 142/80 (100) 10/17/16 11:00 Intake and Output 10/19/16 10/19/16 10/20/16 08:00 16:00 00:00 Intake Total 1693 ml Output Total 650 ml Balance 1043 ml Result Diagram: 10/18/16 0622 10/18/16 0622 Imaging Last Impressions Chest X-Ray 10/10/16 0600 Signed Impressions: Service Date/Time: Monday, October 10, 2016 04:25 - CONCLUSION: 1. Support apparatus in satisfactory position. Patchy airspace and interstitial changes similar to October 2. Amado Carin MD Brain MRI 10/07/16 0000 Signed Impressions: Service Date/Time: September 21:45 - CONCLUSION: 1. Residual small areas of infarction seen bilaterally. There are fewer areas of signal abnormality seen on the diffusion-weighted images on the current exam. New areas of infarction are not present. 2. Areas of demyelination throughout the cerebral and pontine white matter likely from small vessel ischemic change. 3. Fluid in the mastoid air cells. Jarad Cat MD Abdomen X-Ray 10/07/16 0000 Signed Impressions: Service Date/Time: September 08:32 - CONCLUSION: Unremarkable bowel gas pattern. Sanya Cavazos MD Neck CT 10/05/16 0000 Signed Impressions: Service Date/Time: Wednesday, October 05, 2016 10:41 - CONCLUSION: Extensive subcutaneous emphysema. Jarad De Jesus MD Chest CT 10/05/16 0000 Signed Impressions: Service Date/Time: Wednesday, October 05, 2016 10:43 - CONCLUSION: Prior median sternotomy cardiac surgery atherosclerotic cardiovascular disease with left ventricular cardiomegaly and evidence of interstitial alveolar edema in both lungs consistent with CHF. Support tubes in place with subcutaneous emphysema in the soft tissues of neck bilaterally and supraclavicular. There is no evidence of pneumothorax. Lele Escudero MD Head Magnetic Resonance Angiography 09/10/168 Signed Impressions: Service Date/Time: Saturday, September 10, 2016 10:57 - CONCLUSION: 1. Unremarkable MRA examination without evidence for large vessel occlusion, aneurysm, or vascular malformation. Richardson Haney MD Carotid Artery Ultrasound 09/09/16 1028 Signed Impressions: Service Date/Time: September 10:43 - CONCLUSION: 1. Moderate visible plaque without hemodynamically significant stenosis identified. No significant change from August 25. Amado Crain MD Renal Ultrasound 09/09/16 0000 Signed Impressions: Service Date/Time: , September 09, 2016 15:41 - CONCLUSION: 1. Cortical atrophy with small bilateral renal cysts. No hydronephrosis. Amado Crain MD Head CT 09/08/16 2251 Signed Impressions: Service Date/Time: Thursday, September 08, 2016 23:41 - CONCLUSION: Stable noncontrast CT with no evidence of hemorrhage or acute infarction. Atrophy and chronic small vessel splenic changes remain. Sanya Caavzos MD Objective Remarks GENERAL: 75-year-old male currently on vent via trach SKIN: Warm and dry. Well perfused HEAD: Atraumatic. Normocephalic. ENT: Oral cavity is dry. NECK: Trachea midline. Trach site clean, dry CARDIOVASCULAR: IRR. S1, S2 no S4. Without murmur RESPIRATORY: Air entry decreased bilaterally at bases, scattered rhonchi. few crackles bilaterally GASTROINTESTINAL: Abdomen soft, non-tender, nondistended. No guarding. BS active. MUSCULOSKELETAL: Extremities with trace to 1+ B/L lower extremity edema. No obvious deformities. NEUROLOGICAL: Opens eyes to command. Follows commands very weakly. Starting to move LUE weakly Procedures 10/03- intubation Date of Insertion: Oct 03, 2016 Date of Insertion: Oct 04, 2016 Line: Central Venous Catheter Side: Right Location: Internal, Jugular A/P Assessment and Plan Neuro/Psych: Left occipital, bilateral frontal parietal cerebellar CVA subacute Seizure Encephalopathy Chronic headaches Chronic benzodiazepine use, chronic oxycodone use MRI 09/10 brain revealed left occipital, bilateral frontal parietal and cerebellar CVA likely ALFIE/[employer] distribution MRI brain 10/07 - Residual frontal/parietal and occipital junction CVA. Significant demyelination Followed by Dr. Jeffries/neurology. 10/[address] Prajapati in view of episodes of confusion. Nonfocal. EEG 10/07 bilateral PLEDs with episodic sharp activity, EEG 10/10: Ongoing seizure activity with lightening sedation Repeat EEG 10/11/16-no seizure activity, moderate encephalopathy On fosphenytoin at 100 mg IV 3 times a day, levetiracetam 1500 mg IV twice a day and lacosamide 200 mg IV twice a day Dilantin level 10/11/16 9.3 -therapeutic with albumin correction Patient becomes lethargic after antiseizure medications- dose adjustments per neuro Meropenem, linezolid and famotidine all discontinued Off all continuos sedation CV: Coronary disease status post CABG ASCVD Carotid stenosis TAAA Hypertension Dyslipidemia History atrial fibrillation status post ablation 2011 Followed by cardiology. Currently off atorvastatin 40 mg daily/home medication for dyslipidemia (reported ? statin induced myopathy) Continue PO Apixaban 5 mg twice a day per cardiology and aspirin 81 mg by mouth daily. Off amiodarone for suspected pulmonary toxicity Echocardiogram revealed EF 70%. OHS septal motion./Paradoxical, CARA 50-60 mmHg Currently labetalol 100 mg 3 times a day for hypertension. 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 Souza. Not tolerating CPAP, PEEP up to 10, FiO2 55%. Increasing alveolar and interstitial infiltrates on chest x-ray. Diuresis increased Ventilator bundle. TP 8-10 hours from today Was unable to extubate due to severe neuromuscular weakness and encephalopathy and CVA. 3rd intubation. Last 10/03 Off amiodarone for suspected pulmonary toxicity Albuterol/ipratropium every 6 hours with albuterol aerosols as indicated Chest x-ray 10/08 - improved bilateral subcutaneous emphysema neck. No obvious pneumothorax. CT chest ruled out pneumothorax. Likely barotrauma from mechanical ventilation. Methylprednisolone currently on 30 mg daily- ( Prednisone 40mg q day taper over' s several weeks recommended by nephrology for possible pantoprazole induced interstitial nephritis) Discontinued montelukast 10 mg by mouth daily in light of possible seizure threshold lowering/rare Pulmonary following Dr. Encinas Continue antibiotics per ID Dr. Nova - recommended lung biopsy. Patient showed clinical improvement, now again showing some deterioration Repeat sputum culture 10/[address] surgery - [facility]: On Suplena goal 55 cc an hour (per dietary recommendations). On sucralfate 1 g by mouth 4 times daily for GI prophylaxis Docusate sodium 100 mg twice a day, senna liquid 8.6 mg twice a day and polyethylene glycol 3350 17 g twice daily for bowel regimen Metoclopramide 5 mill grams IV every 8 hours History of hydroureter Renal ultrasound revealed no hydronephrosis continue Choi Endo: Sliding scale insulin with NovoLog with Accu-Cheks every 6 hours/low regimen Renal: Acute on chronic kidney injury Creat 1.3. Increase diuresis due to worsening lung infiltrate. Dr. 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 Slowly wean steroids due to this issue as above pulmonary section. Heme: History of colon cancer status post partial colectomy History of bladder cancer Normocytic anemia Leukocytosis Monitor CBC daily. Follow trends. Transfuse 1 unit of PRBC today in anticipation of PEG Noted elevated lambda and kappa Chains/ESR likely secondary underlying acute kidney injury. Evaluated by Dr. Mccollum/hematology ID: Likely hospital-acquired pneumonia Sepsis Meropenem//linezolid 09/27 through 10/07 Currently observe off ABX Pertinent cultures 10/18 Sputum culture 10/03-repeat blood, urine Legionella and pneumococcal antigens and sputum cultures no growth 10/03-influenza negative 09/28 - blood cultures 2 - no growth 09/22 - sputum - no growth 09/16 - blood cultures 2 - no growth Recheck urine 10/09- Betty- changed choi Recheck blood cultures 2 and sputum 10/10. Repeat sputum culture 10/13/16 neg to date Off all antibiotics per infectious disease FEN: Hypernatremia - resolving Monitor and replete electrolytes free water 200 cc every 4 hours. MSK: PT evaluate and treat Prophylaxis - GI -sucralfate - DVT - SCD/apixaban Access - Right subclavian CVL placed 09/16 - 10/04 - Right IJ CVL 10/04-10/14 PIV Dispo: needs LTAC. Level 3 Giovani Abraham MD Oct 19, 2016 08:47
[2016-10-19 08:55] LABS: BICARBONATE 29.1 MEQ/L (21.0-32.0)
[2016-10-19] MEDS: levETIRAcetam INJ 500 MG in SODIUM CHLORIDE 0.9% INJ 100 ML IV SCH ×2 (09:23→21:37)
[2016-10-19] MEDS: FAMOTIDINE 20 MG TAB NG SCH ×2 (09:23→20:38)
[2016-10-19] MEDS: LABETALOL HCL 100 MG TAB PO SCH ×3 (09:23→17:15)
[2016-10-19] MEDS: APIXABAN 5 MG TABLET PO SCH ×2 (09:24→20:37)
[2016-10-19] MEDS: ASPIRIN 81 MG CHEW TAB PEG SCH (09:24)
[2016-10-19] MEDS: POLYETHYLENE GLYCOL 17 GM PKG NG SCH ×2 (09:25→20:38)
[2016-10-19] MEDS: SENNOSIDES SYRUP 8.8 MG/5 ML CUP NG SCH ×2 (09:25→20:38)
[2016-10-19] MEDS: DOCUSATE SODIUM 100 MG/10 ML UDC NG SCH ×2 (09:25→20:38)
[2016-10-19] MEDS: CALCIUM ACETATE 667 MG CAP PO SCH ×3 (09:26→17:14)
[2016-10-19] MEDS: methylPREDNISolone SOD SUCC 40 MG/1 ML VIAL IV PUSH SCH (09:26)
[2016-10-19] MEDS: SODIUM CHLORIDE 0.9% FLUSH 10 ML FLUSH IVF SCH (09:27)
[2016-10-19] MEDS: SODIUM CHLORIDE 0.9% FLUSH 10 ML FLUSH IV FLUSH SCH ×2 (09:27→22:50)
[2016-10-19] MEDS: FUROSEMIDE 40 MG TAB NG SCH ×2 (09:31→20:40)
[2016-10-19] MEDS: CHLORHEXIDINE 0.12% (ORAL KIT) 15 ML CUP MT SCH (09:31)
[2016-10-19] MEDS: RESP: ALBUTEROL 2.5 MG/3 ML NEB (PRN) NEB ×2 (11:54→20:37)
--- NOTE | 2016-10-19 15:28 | PD.CARD.PN ---
Subjective Subjective Remarks more awake today, no acute events. (Elin Kwok) Objective Medications Current Medications Medications (Trade) Dose Ordered Sig/Awilda Route Start Time Stop Time Status Last Admin (NS Flush) 2 ml UNSCH PRN IV FLUSH 09/09/16 00:45 10/17/16 05:44 (NS Flush) 2 ml BID IV FLUSH 09/09/16 09:00 10/19/16 09:27 (Narcan Inj) 0.4 mg UNSCH PRN IV 09/09/16 00:45 (Pill Splitter) 1 ea UNSCH PRN OTHER 09/09/16 14:00 (Eliquis) 5 mg BID PO 09/10/16 09:00 Future hold 10/19/16 09:24 (Catapres) 0.1 mg Q6H PRN PO 09/11/16 14:30 09/19/16 23:02 (Lopressor Inj) 5 mg Q2HR PRN IV PUSH 09/16/16 14:00 10/10/16 00:40 (Apresoline Inj) 10 mg Q6HR PRN IV PUSH 09/16/16 12:45 10/17/16 02:06 (Racepinephrine 2.25% Neb) 0.5 ml Q1HR NEB PRN NEB 09/17/16 17:15 09/17/16 18:02 (Dulcolax Supp) 10 mg DAILY PRN RECTAL 09/19/16 13:30 (Albuterol Neb) 2.5 mg Q2HR NEB PRN NEB 09/21/16 12:00 10/19/16 11:54 (Phoslo) 667 mg TID PO 09/21/16 18:00 10/19/16 12:57 (Peridex 0.12% Liq) 15 ml BID@08,20 MT 09/22/16 20:00 10/19/16 09:31 (Trandate) 100 mg TID PO 09/30/16 13:00 10/19/16 12:57 (NovoLOG SUPPLEMENTAL SCALE) 1 Q6HR SQ 10/01/16 13:15 10/19/16 11:50 (D50w (Vial) Inj) 50 ml UNSCH PRN IV PUSH 10/01/16 13:15 (Glucagon Inj) 1 mg UNSCH PRN OTHER 10/01/16 13:15 (Tears Naturale Opth Soln) 1 drop Q8HR EACH EYE 10/03/16 14:00 10/19/16 14:26 (Colace Liq) 100 mg Q12HR NG 10/04/16 09:00 10/19/16 09:25 (Senna Liq) 8.8 mg BID NG 10/04/16 09:00 10/19/16 09:25 (NS Flush) DAILY IVF 10/04/16 12:45 10/19/16 09:27 (NS Flush) UNSCH PRN IVF 10/04/16 12:45 (Miralax) 17 gm BID NG 10/05/16 09:00 10/19/16 09:25 (Reglan Inj) 5 mg Q8HR IV PUSH 10/07/16 08:00 10/19/16 14:25 (Trandate Inj) 10 mg Q1HR PRN IV PUSH 10/07/16 13:00 10/18/16 23:21 (Nitroglycerin 2% Oint) 2 inch Q6HR PRN TOPICAL 10/07/16 13:00 (Carafate Liq) 1 gm Q6HR NG 10/08/16 12:00 10/19/16 11:51 Lacosamide 200 mg/ Sodium Chloride 120 ml @ 110 mls/hr Q12H IV 10/09/16 00:00 10/19/16 11:20 (Free Water) 200 ml Q4HR G-TUBE 10/09/16 08:00 10/19/16 11:51 Levetriacetam 500 mg/Sodium Chloride 105 ml @ 420 mls/hr Q12HR IV 10/10/16 09:00 10/19/16 09:23 (SoluMEDROL INJ) 30 mg DAILY IV PUSH 10/12/16 09:00 10/19/16 09:26 (Pepcid) 20 mg BID NG 10/15/16 13:00 10/19/16 09:23 (Aspirin Chew) 81 mg DAILY PEG 10/16/16 12:00 10/19/16 09:24 (Lasix) 40 mg Q12HR NG 10/19/16 09:00 10/19/16 09:31 Vital Signs / I&O Vital Signs Date Time Temp Pulse Resp B/P (MAP) Pulse Ox O2 Delivery O2 Flow Rate FiO2 10/19/16 11:00 45 10/19/16 11:00 94 Mechanical Ventilator 45 10/19/16 11:00 103 10/19/16 11:00 100.5 103 31 140/8 (52) 95 10/19/16 10:30 96 45 10/19/16 08:00 99.5 103 31 143/82 (102) 94 10/19/16 08:00 110 10/19/16 08:00 45 10/19/16 08:00 94 Mechanical Ventilator 45 10/19/16 04:35 94 50 10/19/16 03:26 50 10/19/16 03:23 Trach Collar 50 10/19/16 03:23 99.0 97 25 142/80 (100) 98 10/19/16 03:23 97 10/19/16 01:51 94 50 10/18/16 23:53 50 10/18/16 23:43 99.1 91 24 150/82 (104) 95 10/18/16 23:43 Trach Collar 50 10/18/16 23:43 86 10/18/16 22:50 95 50 10/18/16 21:38 94 50 10/18/16 19:39 99.2 82 26 131/75 (93) 96 10/18/16 19:39 Trach Collar 50 10/18/16 19:19 50 10/18/16 19:00 82 10/18/16 18:53 45 10/18/16 17:00 50 10/18/16 15:42 98 60 I/O 10/18/16 10/18/16 10/18/16 10/19/16 10/19/16 10/19/16 07:00 15:00 23:00 07:00 15:00 23:00 Intake Total 1327 ml 225 ml 1589 ml 1693 ml 205 ml Output Total 800 ml 500 ml 650 ml Balance 527 ml 225 ml 1089 ml 1043 ml 205 ml IV Total 200 ml 225 ml 300 ml 330 ml 205 ml Tube Feeding 527 ml 489 ml 963 ml Other 600 ml 800 ml 400 ml Output Urine Total 600 ml 450 ml 650 ml Stool Total 200 ml 50 ml 0 ml Physical Exam GENERAL: Elderly male, more awake, bedside SKIN: Warm and dry. HEAD: Normocephalic. EYES: No scleral icterus. No injection or drainage. NECK: Supple, trachea midline. Tracheostomy CARDIOVASCULAR: reg rhythm, tachycardia RESPIRATORY: Equal, trach GASTROINTESTINAL: Abdomen soft,nondistended. NG MUSCULOSKELETAL: No cyanosis, pedal edema BACK: Nontender without obvious deformity. Laboratory Laboratory Tests Test 10/19/16 08:05 White Blood Count 10.8 TH/MM3 Red Blood Count 2.42 MIL/MM3 Hemoglobin 7.5 GM/DL Hematocrit 22.4 % Mean Corpuscular Volume 92.9 FL Mean Corpuscular Hemoglobin 30.9 PG Mean Corpuscular Hemoglobin Concent 33.3 % Red Cell Distribution Width 16.9 % Platelet Count 162 TH/MM3 Mean Platelet Volume 9.2 FL Blood Urea Nitrogen 41 MG/DL Creatinine 1.25 MG/DL Random Glucose 130 MG/DL Calcium Level 8.2 MG/DL Sodium Level 137 MEQ/L Potassium Level 4.0 MEQ/L Chloride Level 103 MEQ/L Carbon Dioxide Level 29.1 MEQ/L Anion Gap 5 MEQ/L Estimat Glomerular Filtration Rate 56 ML/MIN Imaging Last 72 hours Impressions Chest X-Ray 10/18/16 0000 Signed Impressions: Service Date/Time: Tuesday, October 18, 2016 15:05 - CONCLUSION: 1. Stable coarse bilateral mixed interstitial and alveolar opacities, more confluent in the left lower lung zone. 2. No significant interval change. Richardson Haney MD (Elin Kwok) Assessment and Plan Problem List: (1) History of CVA (cerebrovascular accident) ICD Codes: Z86.73 - Personal history of transient ischemic attack (TIA), and cerebral infarction without residual deficits Status: Acute (2) CKD (chronic kidney disease) stage 3, GFR 30-59 ml/min ICD Codes: N18.3 - Chronic kidney disease, stage 3 (moderate) Status: Acute (3) S/P CABG x 3 ICD Codes: Z95.1 - Presence of aortocoronary bypass graft Status: Acute (4) Atrial fibrillation ICD Codes: I48.91 - Unspecified atrial fibrillation (5) Acute hypoxemic respiratory failure ICD Codes: J96.01 - Acute respiratory failure with hypoxia Status: Acute (6) Hypertension ICD Codes: I10 - Essential (primary) hypertension Status: Acute (7) Thoracic aortic aneurysm without rupture ICD Codes: I71.2 - Thoracic aortic aneurysm, without rupture Status: Acute Assessment and Plan PLAN: Continue labetalol and eliquis. Hbg trending down. No obvious source of bleeding. Suspect due to critical illness and CKD. Check iron. Weaning high dose steroids Continue diuresis. Increased. Follow up sputum cultures SBP goal < 130 DBP goal < 90. The patient was seen and evaluated by Dr. Moran who completed a [id number] encounter, completed a physical exam and participated in evaluation and management. (Elin Kwok) Assessment and Plan The exam, history, and the medical decision-making described in the above note were completed with the assistance of the mid-level provider. I reviewed and agree with the findings presented. I attest that I had a [id number] encounter with the patient on the same day, and personally performed and documented my assessment and findings in the medical record. ct scan reviewed. Cardiac stable reviewed with RN and Dr Abraham. Will see PRN thanks (Suellen Moran MD) Elin Kwok Oct 19, 2016 15:28 Suellen Moran MD Oct 21, 2016 15:08
--- NOTE | 2016-10-19 15:35 | HHI.PR ---
Subjective Remarks Remains on A/C rate10 and FIo2 50%. More awake .Chest X Ray shows bilateral infiltrates with possible Pulmonary edema Objective Vital Signs Date Time Temp Pulse Resp B/P (MAP) Pulse Ox O2 Delivery O2 Flow Rate FiO2 10/19/16 11:00 45 10/19/16 11:00 94 Mechanical Ventilator 45 10/19/16 11:00 103 10/19/16 11:00 100.5 103 31 140/8 (52) 95 10/19/16 10:30 96 45 10/19/16 08:00 99.5 103 31 143/82 (102) 94 10/19/16 08:00 110 10/19/16 08:00 45 10/19/16 08:00 94 Mechanical Ventilator 45 10/19/16 04:35 94 50 10/19/16 03:26 50 10/19/16 03:23 Trach Collar 50 10/19/16 03:23 99.0 97 25 142/80 (100) 98 10/19/16 03:23 97 10/19/16 01:51 94 50 10/18/16 23:53 50 10/18/16 23:43 99.1 91 24 150/82 (104) 95 10/18/16 23:43 Trach Collar 50 10/18/16 23:43 86 10/18/16 22:50 95 50 10/18/16 21:38 94 50 10/18/16 19:39 99.2 82 26 131/75 (93) 96 10/18/16 19:39 Trach Collar 50 10/18/16 19:19 50 10/18/16 19:00 82 10/18/16 18:53 45 10/18/16 17:00 50 10/18/16 15:42 98 60 I/O 10/18/16 10/18/16 10/18/16 10/19/16 10/19/16 10/19/16 06:59 14:59 22:59 06:59 14:59 22:59 Intake Total 1327 ml 225 ml 1589 ml 1693 ml 205 ml Output Total 800 ml 500 ml 650 ml Balance 527 ml 225 ml 1089 ml 1043 ml 205 ml IV Total 200 ml 225 ml 300 ml 330 ml 205 ml Tube Feeding 527 ml 489 ml 963 ml Other 600 ml 800 ml 400 ml Output Urine Total 600 ml 450 ml 650 ml Stool Total 200 ml 50 ml 0 ml Result Diagram: 10/19/1680410/19/16804 Objective Remarks GENERAL: This moderately overweight elderly man , with a trach HEENT: Head is normocephalic. Pupils are reactive. Tongue is moist. Throat clear NECK: No venous distention. No thyroid enlargement. CHEST: Equal movements with diminished breath sounds at the bases with Bi basal crackles.Wheeze heard HEART: Sounds are irregular S1-S2. No murmur. ABDOMEN: Soft. Protuberant without masses. No organomegaly. EXTREMITIES: Decreased pulses.1 + Edema SKIN: warm. Neuro : lethargic.Moves arms and feet. Assessment and Plan Assessment and Plan IMPRESSION 1. Acute respiratory failure.Resolving 2. Fluid overload status with pulmonary edema. 3. Acute kidney failure.Resolving 4. History of cerebrovascular accident. 5. Bibasilar atelectasis with possible pneumonia. 6. History of colon cancer and bladder cancer. 7. Possible Hypersensitivity Pneumonia or Edema Plan : 1. Increase Lasix [address] on A/C rate 10 and FIO2 50 %, PEEP +8 3. Nebs qid ,Duoneb. 4. Trach lavage and suction 5. Antibiotics per ID 6. Cont Keppra/Dilantin 7. D/W Dr Abraham. 8. Culture trach secretions Jaime Encinas MD Oct 19, 2016 15:35
[2016-10-19 19:41] LABS: TRANSFERRIN IRON PROFILE 107 MG/DL (200-360)
[2016-10-19 19:44] LABS: FERRITIN 713 NG/ML (26-388)
[2016-10-20] VITALS (13 sets, daily range): BP systolic 101–156; BP diastolic 60–95; PULSE 81–101; RESP 24–32; TEMP 97.8–100; O2SAT 92–99
[2016-10-20] MEDS: SUCRALFATE 1 GM/10 ML CUP NG SCH ×4 (00:11→18:42)
[2016-10-20] MEDS: LACOSAMIDE INJ 200 MG in SODIUM CHLORIDE 0.9% INJ 100 ML IV SCH ×2 (00:11→12:21)
[2016-10-20] MEDS: FREE WATER G-TUBE SCH ×6 (04:00→20:00)
[2016-10-20] MEDS: LABETALOL HCL 100 MG/20 ML VIAL IV PUSH PRN ×2 (04:14→09:05)
[2016-10-20 04:28] LABS: AUTOMATED NEUTROPHIL # 8.5 TH/MM3 (1.8-7.7); BASOPHIL # 0.1 TH/MM3 (0-0.2); BASOPHIL % 0.4 % (0.0-2.0); EOSINOPHIL # 1.3 TH/MM3 (0-0.4); EOSINOPHIL % 10.3 % (0.0-4.0); HEMATOCRIT 23.4 % (39.0-51.0); HEMO FLAGS DIFF FINAL; LYMPH % 12.3 % (9.0-44.0); LYMPHOCYTE # 1.5 TH/MM3 (1.0-4.8); MEAN CELL VOLUME 93.6 FL (80.0-100.0); MEAN CORPUSCULAR HEMOGLOBIN 30.8 PG (27.0-34.0); MEAN CORPUSCULAR HGB CONC 32.9 % (32.0-36.0); MONO % 6.3 % (0.0-8.0); NEUT % 70.7 % (16.0-70.0); PLATELET COUNT 178 TH/MM3 (150-450); RED CELL DISTRIBUTION WIDTH 16.5 % (11.6-17.2); WHITE BLOOD COUNT 12.1 TH/MM3 (4.0-11.0)
[2016-10-20 04:36] LABS: ANION GAP 6 MEQ/L (5-15); AST (GOT) 44 U/L (15-37); BICARBONATE 28.5 MEQ/L (21.0-32.0); BLOOD UREA NITROGEN 44 MG/DL (7-18); CHLORIDE 101 MEQ/L (98-107); GLOMERULAR FILTRATION RATE 46 ML/MIN (>89); SODIUM (NA) 135 MEQ/L (136-145)
[2016-10-20 04:39] LABS: ALKALINE PHOSPHATASE 77 U/L (45-117); ALT (GPT) 40 U/L (12-78); TOTAL BILIRUBIN ADULT 0.2 MG/DL (0.2-1.0)
[2016-10-20] MEDS: INSULIN ASPART SUPPLEMENTAL SCALE SQ SCH ×4 (06:00→18:00)
[2016-10-20] MEDS: ARTIFICIAL TEARS OPTH SOLN 15 ML BTL EACH EYE SCH ×3 (06:15→22:29)
[2016-10-20] MEDS: METOCLOPRAMIDE HCL 10 MG/2 ML VIAL IV PUSH SCH ×3 (06:15→22:28)
--- NOTE | 2016-10-20 06:35 | RADRPT ---
EXAM DATE/TIME: 10/20/2016 05:21 [place] COMPARISON: CHEST SINGLE AP, October 18, 2016, 15:05. INDICATIONS : Short of breath. MEDICAL HISTORY : None. SURGICAL HISTORY : CABG. ENCOUNTER: Subsequent ACUITY: 1 week PAIN SCORE: 0/10 LOCATION: Bilateral chest FINDINGS: A single view of the chest demonstrates tracheostomy in good position. Pulmonary fibrosis suspected p robable mild edema superimposed. No pneumothorax or significant effusion. Cardiomegaly. CONCLUSION: 1. Tracheostomy unchanged. Probable pulmonary fibrosis with mild edema. Cardiomegaly. Amado Crain MD on October 20, 2016 at 6:32 Board Certified Radiologist. This report was verified electronically.
[2016-10-20] MEDS: CALCIUM ACETATE 667 MG CAP PO SCH ×3 (08:31→18:42)
[2016-10-20] MEDS: LABETALOL HCL 100 MG TAB PO SCH ×3 (08:31→18:42)
[2016-10-20] MEDS: SENNOSIDES SYRUP 8.8 MG/5 ML CUP NG SCH ×2 (08:31→21:20)
[2016-10-20] MEDS: DOCUSATE SODIUM 100 MG/10 ML UDC NG SCH ×2 (08:32→21:20)
[2016-10-20] MEDS: APIXABAN 5 MG TABLET PO SCH (08:32)
[2016-10-20] MEDS: methylPREDNISolone SOD SUCC 40 MG/1 ML VIAL IV PUSH SCH (08:32)
[2016-10-20] MEDS: levETIRAcetam INJ 500 MG in SODIUM CHLORIDE 0.9% INJ 100 ML IV SCH ×2 (08:32→21:20)
[2016-10-20] MEDS: FAMOTIDINE 20 MG TAB NG SCH ×2 (08:33→21:20)
[2016-10-20] MEDS: ASPIRIN 81 MG CHEW TAB PEG SCH (08:33)
[2016-10-20] MEDS: FUROSEMIDE 40 MG TAB NG SCH (08:33)
[2016-10-20] MEDS: SODIUM CHLORIDE 0.9% FLUSH 10 ML FLUSH IV FLUSH SCH ×2 (08:34→22:36)
[2016-10-20] MEDS: POLYETHYLENE GLYCOL 17 GM PKG NG SCH ×2 (08:34→21:20)
[2016-10-20] MEDS: SODIUM CHLORIDE 0.9% FLUSH 10 ML FLUSH IVF SCH (08:34)
[2016-10-20] MEDS: CHLORHEXIDINE 0.12% (ORAL KIT) 15 ML CUP MT SCH (09:12)
--- NOTE | 2016-10-20 09:53 | HHI.CCPN ---
Subjective Remarks/Hospital Course 75 y/o man now about 4 weeks following CABG complicated by CVA. Presented back 08/28 with new onset right arm weakness. Hospital course has been complicated by CKD and fluid overload. We have attempted BiPAP for several hours but he remains in distress and although oxygenation is acceptable work of breathing is excessive. Worrisome increasing metabolic acidosis. 09/17: Gas exchange much improved. BNP 1681, ScVO2 71%. It appears that cardiac output is more than adequate for peripheral needs and the primary pathology is renal failure and fluid overload. If we can manage volume I can probably get him extubated. 09/18: Diffuse crackles. Needs to be diuresed today. Tolerating extubation but at risk for hypoxemic failure again. 09/20 - Re consulted due to worsening hypoxia. Currently on nonrebreather mask. Chest x-ray shows worsening consolidation right lobe creatinine slightly improved over. Family request transfer to [facility] however refused. We'll attempt to decipher status currently unknown. 09/21: Remains on nonrebreather mask. Saturations between 89-97%. Chest x-ray unchanged. Not tachypnea. Not confused. 09/22: Radiographic studies show diffuse interstitial process with skip areas - more indicative of infectious/inflammatory process. Sats 85% with labored pattern. Required intubation for deteriorating respiratory status. 09/23: Gas exchange improving. Pulmonary infiltrates remain very concerning - if most recent sputum is benign I would not be opposed to steroids. 09/24: Extubated today. On 3 L nasal cannula. Passed swallow evaluation. Appropriate interactive status post extubation. 09/29: Critical care reconsult requested by Dr. Meza for respiratory failure. Patient reportedly was on BiPAP this morning. He was given additional diuretic earlier as he was short of breath. With this he seems to have improved somewhat and has been on a nonrebreather facemask for more than a few hours. He states that he is breathing much better. Patient being adamant about not using BiPAP. I had a detailed conversation about the importance of using BiPAP especially at night in view of his history of sleep apnea. Patient did not appear to be in acute distress though he was requiring a nonrebreather facemask at the time of my evaluation. No urgent need for BiPAP or intubation at this time. In fact patient is stating that he is breathing much better than this morning. 09/30: Remains on nonrebreather facemask. Refused BiPAP at night. States that he is breathing better today than yesterday. 10/01: 02 30 L/m 100% FiO2. O2 sats borderline. Episodes of confusion. When I evaluated the patient he was sitting up in bed and was able to converse. Not using accessory muscles of respirations currently. 10/02: The patient is alert and oriented currently has been weaned down to high flow nasal cannula with an FiO2 of 65%, maintaining O2 saturation to 95%. Patient is appropriately conversant no episodes of confusion noted. 10/03: Yesterday, the patient received 2 units of packed red blood cells with Furosemide dosing in between transfusion of units, with diuresis of approximately 2900 cc. Last night, the patient was noted to have respiratory decompensation, continued refusal to utilize BiPAP during the night. FiO2 requirements increased to 100% this a.m., on high flow nasal cannula, with noted accessory muscle use and inability to speak in complete sentences secondary to dyspnea. The patient received additional dose of Lasix this a.m. , chest x-ray appeared to be worsened this a.m. .Patient subsequently became hypoxic requiring emergent intubation this a.m.., O2 sat saturation 80s on 100 % FiO2. 10/04: Intubated yesterday due to general and hypoxia. Diuresed with 80 mg furosemide 1. Tmax 99.8. Currently 97.8. Tube feeds initiated. No bowel movement. 10/05: Afebrile. Subcutaneous air in neck bilaterally on chest x-ray today. No obvious pneumothorax. No pneumothorax on chest x-ray yesterday post central line placement. Tolerating tube feeding. No bowel movement. 10/06: Currently resting in bed. Subcutaneous air neck much improved. X-ray improved. FiO2 down to 40%. Tolerating tube feeding. One bowel movement. 10/07: Afebrile. Currently on propofol drip at 40 mg/kg per minute. X-ray has improved. Currently not tolerating tube feeds. 2 bowel movements documented. Sedation vacation today ordered. 10/08: Afebrile. Saturations 95% on FiO2 50%. MRI brain showed no acute findings last night. EEG repeated for today. PLEDs on previous EEG. Vimpat along with fosphenytoin added per neurology. Arousable on the ventilator. Tube feeds to be resumed today. Discussed with at length yesterday 10/09: MAXIMUM TEMPERATURE 99.5. Currently 99.3. Tube feeds currently at 20 cc an hour. Minimal residuals. Arousable and intermittently follows commands mostly with right upper extremity. 10/10: Febrile. Tube feeds currently at 25 cc an hour. Minimal residuals. Positive BM. Not arousable this AM. EEG still reveals underlying sharp spikes. Vimpat increased yesterday. 10/11: Remains intubated tachypneic on CPAP 11/11, Lethargic not consistently following commands. After being placed on 06/11 patient is more tachypneic, breathing in mid 30s 10/12: Remains intubated off sedation. Very lethargic, copious oral secretions and moderate ET tube secretions. We'll discuss with general surgery regarding tracheostomy today. 10/11/16 did not show seizure activity but moderate encephalopathy 10/13: Remains off sedation quite lethargic. We except to sternal rub. We believe follows commands on right upper and bilateral lower extremities. Low- grade fever. Tracheostomy planned for afternoon 10/14: s/p trach yesterday. Remains lethargic, but follows commands on the right side. Increase in white count noted. Creatinine increasing now 1.8. Will discontinue IV Lasix and give IV hydration for 24 hours. Attempt T piece 2-4 hours 10/15: s/p trach yesterday. Tolerated TP 2 hours. Remains lethargic, weakly follows commands. PEG today. Cr improved from 1.8 to 1.5 with gentle hydration 10/16: no changes. Cr slowly improving. 10/17: no clinical improvements. awaiting placement. weather concerns prevent further movement towards placement in LTAC. Subjective: 10/18: no changes. ready for LTAC. 10/19: Unable to wean. Increasing oxygen requirements overnight. PEEP up to 10, FiO2 55%. Chest x-ray from yesterday shows increasing alveolar and interstitial infiltrates. Increase PO Lasix to 40 BID and additional IV Lasix 20 mg x1. Sputum culture from yesterday pending 10/20: Unable to renal to ventilator FiO2 with his from 45-50%. PEEP at 8. Chest x-ray shows worsening bilateral alveolar and interstitial infiltrates right worse than left. Discussed with Dr. Lee, will re consult CTS for consideration of lung biopsy. CT chest today. Objective Vital Signs Date Time Temp Pulse Resp B/P (MAP) Pulse Ox O2 Delivery O2 Flow Rate FiO2 10/20/16 08:30 92 40 10/20/16 03:00 101 10/20/16 03:00 98.0 32 156/95 (115) 10/20/16 03:00 Mechanical Ventilator Intake and Output 10/20/16 10/20/16 10/21/16 08:00 16:00 00:00 Intake Total 1555 ml Output Total 1305 ml Balance 250 ml Result Diagram: 10/20/16 0342 10/20/16 0342 Imaging Last Impressions Chest X-Ray 10/10/16 0600 Signed Impressions: Service Date/Time: Monday, October 10, 2016 04:25 - CONCLUSION: 1. Support apparatus in satisfactory position. Patchy airspace and interstitial changes similar to October 2. Amado Crain MD Brain MRI 10/07/16 0000 Signed Impressions: Service Date/Time: September 21:45 - CONCLUSION: 1. Residual small areas of infarction seen bilaterally. There are fewer areas of signal abnormality seen on the diffusion-weighted images on the current exam. New areas of infarction are not present. 2. Areas of demyelination throughout the cerebral and pontine white matter likely from small vessel ischemic change. 3. Fluid in the mastoid air cells. Jarad Cat MD Abdomen X-Ray 10/07/16 0000 Signed Impressions: Service Date/Time: September 08:32 - CONCLUSION: Unremarkable bowel gas pattern. Sanya Cavazos MD Neck CT 10/05/16 0000 Signed Impressions: Service Date/Time: Wednesday, October 05, 2016 10:41 - CONCLUSION: Extensive subcutaneous emphysema. Jarad De Jesus MD Chest CT 10/05/16 0000 Signed Impressions: Service Date/Time: Wednesday, October 05, 2016 10:43 - CONCLUSION: Prior median sternotomy cardiac surgery atherosclerotic cardiovascular disease with left ventricular cardiomegaly and evidence of interstitial alveolar edema in both lungs consistent with CHF. Support tubes in place with subcutaneous emphysema in the soft tissues of neck bilaterally and supraclavicular. There is no evidence of pneumothorax. Lele Escudero MD Head Magnetic Resonance Angiography 09/10/16 1028 Signed Impressions: Service Date/Time: Saturday, September 10, 2016 10:57 - CONCLUSION: 1. Unremarkable MRA examination without evidence for large vessel occlusion, aneurysm, or vascular malformation. Richardson Haney MD Carotid Artery Ultrasound 09/09/16 1028 Signed Impressions: Service Date/Time: September 10:43 - CONCLUSION: 1. Moderate visible plaque without hemodynamically significant stenosis identified. No significant change from August 25. Amado Crain MD Renal Ultrasound 09/09/16 0000 Signed Impressions: Service Date/Time: September 15:41 - CONCLUSION: 1. Cortical atrophy with small bilateral renal cysts. No hydronephrosis. Amado Crain MD Head CT 09/08/16 2251 Signed Impressions: Service Date/Time: Thursday, September 08, 2016 23:41 - CONCLUSION: Stable noncontrast CT with no evidence of hemorrhage or acute infarction. Atrophy and chronic small vessel splenic changes remain. Sanya Cavazos MD Objective Remarks GENERAL: 75-year-old male currently on vent via trach SKIN: Warm and dry. Well perfused HEAD: Atraumatic. Normocephalic. ENT: Oral cavity is dry. NECK: Trachea midline. Trach site clean, dry CARDIOVASCULAR: IRR. S1, S2 no S4. Without murmur RESPIRATORY: Air entry decreased bilaterally at bases, bilateral coarse crackles and rhonchi GASTROINTESTINAL: Abdomen soft, non-tender, nondistended. No guarding. BS active. MUSCULOSKELETAL: Extremities with trace to 1+ B/L lower extremity edema. No obvious deformities. NEUROLOGICAL: Opens eyes to command. Follows commands very weakly x4. LUE weaker than other ext Procedures 10/03- intubation Date of Insertion: Oct 03, 2016 Date of Insertion: Oct 04, 2016 Line: Central Venous Catheter Side: Right Location: Internal, Jugular A/P Assessment and Plan Neuro/Psych: Left occipital, bilateral frontal parietal cerebellar CVA subacute Seizure Encephalopathy Chronic headaches Chronic benzodiazepine use, chronic oxycodone use MRI 09/10 brain revealed left occipital, bilateral frontal parietal and cerebellar CVA likely [employer]FI[employer] distribution MRI brain 10/07 - Residual frontal/parietal and occipital junction CVA. Significant demyelination Followed by Dr. Jeffries/neurology. 10/[address] Prajapati in view of episodes of confusion. Nonfocal. EEG 8/31 bilateral PLEDs with episodic sharp activity, EEG 10/10: Ongoing seizure activity with lightening sedation Repeat EEG 10/11/16-no seizure activity, moderate encephalopathy On fosphenytoin at 100 mg IV 3 times a day, levetiracetam 1500 mg IV twice a day and lacosamide 200 mg IV twice a day Dilantin level 10/11/16 9.3 -therapeutic with albumin correction Patient becomes lethargic after antiseizure medications- dose adjustments per neuro Meropenem, linezolid and famotidine all discontinued Off all continuos sedation CV: Coronary disease status post CABG ASCVD Carotid stenosis TAAA Hypertension Dyslipidemia History atrial fibrillation status post ablation 2011 Followed by cardiology. Currently off atorvastatin 40 mg daily/home medication for dyslipidemia (reported ? statin induced myopathy) Continue PO Apixaban 5 mg twice a day per cardiology and aspirin 81 mg by mouth daily. Off amiodarone for suspected pulmonary toxicity Echocardiogram revealed EF 70%. OHS septal motion./Paradoxical, CARA 50-60 mmHg Currently labetalol 100 mg 3 times a day for hypertension. 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 Discussed with Dr. Lovett, will re consult CTS for consideration of lung biopsy. CT chest today. Discussed with Dr. Meza s/p Trach 10/[address] Souza. Not tolerating CPAP, PEEP up to 8, FiO2 45-50%. Increasing alveolar and interstitial infiltrates on chest x-ray. Diuresis increased 10/19 Off amiodarone for suspected pulmonary toxicity Ventilator bundle. Was unable to extubate due to severe neuromuscular weakness and encephalopathy and CVA. 3rd intubation. Last 10/03 Albuterol/ipratropium every 6 hours with albuterol aerosols as indicated Chest x-ray 10/08 - improved bilateral subcutaneous emphysema neck. No obvious pneumothorax. CT chest ruled out pneumothorax. Likely barotrauma from mechanical ventilation. Methylprednisolone currently on 30 mg daily- ( Prednisone 40mg q day taper over' s several weeks recommended by nephrology for possible pantoprazole induced interstitial nephritis) Discontinued montelukast 10 mg by mouth daily in light of possible seizure threshold lowering/rare Patient showed clinical improvement, now again showing some deterioration Repeat sputum culture 10/18 neg to date GI: On Suplena goal 55 cc an hour (per dietary recommendations). On sucralfate 1 g by mouth 4 times daily for GI prophylaxis Docusate sodium 100 mg twice a day, senna liquid 8.6 mg twice a day and polyethylene glycol 3350 17 g twice daily for bowel regimen Metoclopramide 5 mill grams IV every 8 hours History of hydroureter Renal ultrasound revealed no hydronephrosis continue Choi Endo: Sliding scale insulin with NovoLog with Accu-Cheks every 6 hours/low regimen Renal: Acute on chronic kidney injury Creat 1.5 after increasing Lasix. . Reduce lasix to [address] 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 Slowly wean steroids due to this issue as above pulmonary section. Heme: History of colon cancer status post partial colectomy History of bladder cancer Normocytic anemia Leukocytosis Monitor CBC daily. Follow trends. Transfuse 1 unit of PRBC today in anticipation of PEG Noted elevated lambda and kappa Chains/ESR likely secondary underlying acute kidney injury. Evaluated by Dr. Mccollum/hematology ID: Likely hospital-acquired pneumonia Sepsis Meropenem//linezolid 09/27 through 10/07 Currently observe off ABX Pertinent cultures 10/18 Sputum culture neg 10/03-repeat blood, urine Legionella and pneumococcal antigens and sputum cultures no growth 10/03-influenza negative 09/28 - blood cultures 2 - no growth 09/22 - sputum - no growth 09/16 - blood cultures 2 - no growth Recheck urine 10/09- Betty- changed choi Recheck blood cultures 2 and sputum 10/10. Repeat sputum culture 10/13/16 neg to date Off all antibiotics per infectious disease FEN: Hypernatremia - resolving Monitor and replete electrolytes free water 200 cc every 4 hours. MSK: PT evaluate and treat Prophylaxis - GI -sucralfate - DVT - SCD/apixaban Access - Right subclavian CVL placed 09/16 - 10/04 - Right IJ CVL 10/04-10/14 PIV Dispo: needs LTAC. Currently worsening respiratory nixon, increasing bilateral infiltrates. CT surgery consulted for consideration of biopsy of the lung. Discussed with Dr. Julio Cesar church and Dr. Meza Level 3 Giovani Abraham MD Oct 20, 2016 09:53
[2016-10-20] MEDS: RESP: ALBUTEROL 2.5 MG/3 ML NEB (PRN) NEB ×2 (10:09→21:50)
--- NOTE | 2016-10-20 10:41 | PD.CAR.PN ---
CVT Progress Note Subjective/Hospital Course: 10/01 remains on high flow 02 poor reserve, continue diuresis , antibiotics/ OOB as tolerated 10/02/16 continues on high flow O2 No c/o 10/04 pt reintubated yesterday , 2/2 resp distress now sedated on vent, on 40% fio2 renal function stable, non-oliguric 10/05 pt remains intubated 3rd time on 40% FI02 CT chest : groundglass appearance bilateral infiltrates bullous emphysema, interstitial edema / Dr Encinas spoke with Dr Zamora regarding possible open lung bx: RE ? 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 Meropenem, linezolid and famotidine all discontinued. Loaded with Keppra and scheduled 500 mg IV twice a day. Neurology consult for management of antiepileptics. MRI brain pending is also agreeable for tracheostomy placement remains on vent, not tolerating tube feeding 10/[address] Jeffries , pt on sedation vacation opened eyes, wiggled both feet , left sided weakness moved right arm , very weak MRI brain , no new infarct 10/12 pt remains on vent , will open eyes track, very weak on antiepileptic meds for bedside trach in am 10/20 we were asked to re-eval pt 2/2 persistent resp failure/ difficulty weaning from vent pulm edema ( concern for amiodarone toxicity) eval for right video assisted thoracoscopic lung biopsy will need to be scheduled for tuesday, eliquis on hold Objective: GENERAL: pt very lethargic will open eyes and track, some minimal spontaneous movement to ext SKIN: Warm and dry. HEAD: Normocephalic. EYES: No scleral icterus. No injection or drainage. NECK: Supple, trachea midline. No JVD or lymphadenopathy. CARDIOVASCULAR: Regular rate and rhythm without murmurs, gallops, or rubs. general edema RESPIRATORY: trach sutured in place, mid line coarse bilateral breath sounds No accessory muscle use. GASTROINTESTINAL: Abdomen soft, non-tender, nondistended. peg tube in place, on tube feeds, + liguid stools MUSCULOSKELETAL: No cyanosis, BACK: Nontender without obvious deformity. No CVA tenderness. Vital Signs Date Time Temp Pulse Resp B/P (MAP) Pulse Ox O2 Delivery O2 Flow Rate FiO2 10/20/16 08:30 92 40 10/20/16 05:16 94 45 10/20/16 03:00 45 10/20/16 03:00 101 10/20/16 03:00 98.0 101 32 156/95 (115) 92 10/20/16 03:00 92 Mechanical Ventilator 45 10/20/16 01:29 95 45 10/19/16 23:00 45 10/19/16 23:00 96 Mechanical Ventilator 45 10/19/16 23:00 98 10/19/16 23:00 97.9 100 29 158/91 (113) 96 10/19/16 22:32 96 45 10/19/16 20:38 94 45 10/19/16 19:00 45 10/19/16 19:00 89 10/19/16 19:00 97.7 89 28 142/76 (98) 95 10/19/16 19:00 95 Mechanical Ventilator 45 10/19/16 16:33 98 45 10/19/16 15:00 45 10/19/16 15:00 97 Mechanical Ventilator 45 10/19/16 15:00 90 10/19/16 15:00 98.6 90 29 148/86 (106) 95 10/19/16 11:00 45 10/19/16 11:00 94 Mechanical Ventilator 45 10/19/16 11:00 103 10/19/16 11:00 100.5 103 31 140/8 (52) 95 10/19/16 10:30 96 45 Labs: Laboratory Tests Test 10/20/16 03:42 White Blood Count 12.1 TH/MM3 (4.0-11.0) Red Blood Count 2.50 MIL/MM3 (4.50-5.90) Hemoglobin 7.7 GM/DL (13.0-17.0) Hematocrit 23.4 % (39.0-51.0) Mean Corpuscular Volume 93.6 FL (80.0-100.0) Mean Corpuscular Hemoglobin 30.8 PG (27.0-34.0) Mean Corpuscular Hemoglobin Concent 32.9 % (32.0-36.0) Red Cell Distribution Width 16.5 % (11.6-17.2) Platelet Count 178 TH/MM3 (150-450) Mean Platelet Volume 9.1 FL (7.0-11.0) Neutrophils (%) (Auto) 70.7 % (16.0-70.0) Lymphocytes (%) (Auto) 12.3 % (9.0-44.0) Monocytes (%) (Auto) 6.3 % (0.0-8.0) Eosinophils (%) (Auto) 10.3 % (0.0-4.0) Basophils (%) (Auto) 0.4 % (0.0-2.0) Neutrophils # (Auto) 8.5 TH/MM3 (1.8-7.7) Lymphocytes # (Auto) 1.5 TH/MM3 (1.0-4.8) Monocytes # (Auto) 0.8 TH/MM3 (0-0.9) Eosinophils # (Auto) 1.3 TH/MM3 (0-0.4) Basophils # (Auto) 0.1 TH/MM3 (0-0.2) CBC Comment DIFF FINAL Differential Comment Blood Urea Nitrogen 44 MG/DL (7-18) Creatinine 1.50 MG/DL (0.60-1.30) Random Glucose 116 MG/DL (74-106) Total Protein 6.3 GM/DL (6.4-8.2) Albumin 1.7 GM/DL (3.4-5.0) Calcium Level 8.9 MG/DL (8.5-10.1) Alkaline Phosphatase 77 U/L (45-117) Aspartate Amino Transf (AST/SGOT) 44 U/L (15-37) Alanine Aminotransferase (ALT/SGPT) 40 U/L (12-78) Total Bilirubin 0.2 MG/DL (0.2-1.0) Sodium Level 135 MEQ/L (136-145) Potassium Level 4.0 MEQ/L (3.5-5.1) Chloride Level 101 MEQ/L (98-107) Carbon Dioxide Level 28.5 MEQ/L (21.0-32.0) Anion Gap 6 MEQ/L (5-15) Estimat Glomerular Filtration Rate 46 ML/MIN (>89) Result Diagram: 10/20/16 0342 10/20/16 0342 (1) History of CVA (cerebrovascular accident) Plan: new onset of seizures, Neuro following on antiepileptic meds (2) CKD (chronic kidney disease) stage 3, GFR 30-59 ml/min Plan: stable indices (3) S/P CABG x 3 (4) Atrial fibrillation Plan: rate controlled, will hold for right VATS lung bx on tuesday (5) Acute hypoxemic respiratory failure Plan: on vent, CCM following s/p trach not tolerating weaning for tight VATS lung bx on tuesday continue supportive care (6) Hypertension (7) Thoracic aortic aneurysm without rupture Casandra Barton Oct 20, 2016 10:41
[2016-10-20] MEDS ORDERED: SODIUM CHLORIDE 0.9% FLUSH 10 ML FLUSH IV FLUSH PRN (11:15)
[2016-10-20] MEDS ORDERED: CHLORHEXIDINE GLUCONATE 4% SOLN 120 ML BTL TOPICAL SCH (13:00)
[2016-10-20] MEDS ORDERED: ceFAZolin 2 GM PREMIX 50 ML IV SCH (13:00)
[2016-10-20] MEDS ORDERED: EPINEPHrine HCL (1:10,000) 1 MG/10 ML SYRINGE ONE (13:23)
[2016-10-20] MEDS ORDERED: ATROPINE SULFATE 1 MG/10 ML SYRINGE ONE (13:23)
--- NOTE | 2016-10-20 13:57 | RADRPT ---
EXAM DATE/TIME: 10/20/2016 13:29 [place] COMPARISON: CT THORAX W/O CONTRAST, October 05, 2016, 10:43. INDICATIONS : Short of breath, inability to wean from vent. RADIATION DOSE: 5.95 CTDIvol (mGy) MEDICAL HISTORY : Cardiovascular disease. Myocardial infarction. Stroke. HTN, Colon cancer. SURGICAL HISTORY : Abdominal aortic aneurysm repair. Pacemaker.Coronary artery stent. ENCOUNTER: Initial ACUITY: 1 day PAIN SCALE: Non-responsive LOCATION: Bilateral chest TECHNIQUE: Volumetric scanning of the chest was performed. Using automated exposure control and adjustment of t he mA and/or kV according to patient size, radiation dose was kept as low as reasonably achievable to obtain optimal diagnostic quality images. DICOM format image data is available electronically for r eview and comparison. Follow-up recommendations for detected pulmonary nodules are based at a minimum on nodule size and pa tient risk factors according to Fleischner Society Guidelines. FINDINGS: Course interstitial changes are present in both lungs with peripheral blebs present. Small bilateral pleural effusions are evident. There is no consolidation. There is no axillary adenopathy. There is minimal nonspecific iastinal adenopathy with minimal progr ession in the interval. Largest paratracheal node measures 2 CM. There is no pericardial effusion Aorta at the aortic hiatus measures 6.1 CM. Gastrostomy tube in good position Limited visualization of the upper abdomen is unremarkable CONCLUSION: Small bilateral pleural effusions progressed in the interval. Diffuse interstitial and alveolar opacities persist in both lungs with progression to air partial a ir bronchograms in the lower lobes. Victor Hugo Kiser MD FACR on October 20, 2016 at 13:52 Board Certified Radiologist. This report was verified electronically.
[2016-10-20] MEDS ORDERED: CEFAZOLIN INJ 500 MG in SODIUM CHLORIDE 0.9% IRR BTL 500 ML IRRIGATION SCH (14:00)
--- NOTE | 2016-10-20 15:51 | HHI.PR ---
Subjective Remarks Remains on A/C rate14 and FIo2 45%. awake and lethargic. Chest X Ray shows bilateral infiltrates with possible Pulmonary edema. No improvement . D/W DR Abraham since he has shown no significant improvement over the past 2 weeks, a lung biopsy might give us some insight as to the Etiology of the process. Objective Vital Signs Date Time Temp Pulse Resp B/P (MAP) Pulse Ox O2 Delivery O2 Flow Rate FiO2 10/20/16 15:00 45 10/20/16 15:00 100 Mechanical Ventilator 45 Trach Collar 10/20/16 15:00 85 10/20/16 15:00 97.8 84 24 101/60 (74) 95 10/20/16 13:55 94 45 10/20/16 11:00 86 10/20/16 11:00 100 Mechanical Ventilator 45 Trach Collar 10/20/16 11:00 100.0 85 26 121/68 (85) 96 10/20/16 11:00 45 10/20/16 08:30 92 40 10/20/16 07:00 101 10/20/16 07:00 40 10/20/16 07:00 99.3 100 24 142/83 (102) 93 10/20/16 07:00 93 Mechanical Ventilator 40 Trach Collar 10/20/16 05:16 94 45 10/20/16 03:00 45 10/20/16 03:00 101 10/20/16 03:00 98.0 101 32 156/95 (115) 92 10/20/16 03:00 92 Mechanical Ventilator 45 10/20/16 01:29 95 45 10/19/16 23:00 45 10/19/16 23:00 96 Mechanical Ventilator 45 10/19/16 23:00 98 10/19/16 23:00 97.9 100 29 158/91 (113) 96 10/19/16 22:32 96 45 10/19/16 20:38 94 45 10/19/16 19:00 45 10/19/16 19:00 89 10/19/16 19:00 97.7 89 28 142/76 (98) 95 10/19/16 19:00 95 Mechanical Ventilator 45 10/19/16 16:33 98 45 I/O 9/12/17 9/12/17 9/12/17 9/13/17 9/13/17 9/13/17 07:00 15:00 23:00 07:00 15:00 23:00 Intake Total 1693 ml 205 ml 1327 ml 1555 ml Output Total 650 ml 810 ml 1305 ml Balance 1043 ml 205 ml 517 ml 250 ml IV Total 330 ml 205 ml 440 ml Tube Feeding 963 ml 577 ml 515 ml Tube Irrigant 750 ml Other 400 ml 600 ml Output Urine Total 650 ml 760 ml 1105 ml Stool Total 0 ml 50 ml 200 ml Result Diagram: 10/20/1634110/20/16341 Objective Remarks GENERAL: This moderately overweight elderly man , with a trach HEENT: Head is normocephalic. Pupils are reactive. Tongue is moist. Throat clear NECK: No venous distention. No thyroid enlargement. CHEST: Equal movements with diminished breath sounds at the bases with Bi basal crackles.Wheeze heard. HEART: Sounds are irregular S1-S2. No murmur. ABDOMEN: Soft. Protuberant without masses. No organomegaly. EXTREMITIES: Decreased pulses.1 + Edema SKIN: warm. Neuro : lethargic.Moves arms and feet. Assessment and Plan Assessment and Plan IMPRESSION 1. Acute respiratory failure.Resolving 2. Fluid overload status with pulmonary edema. 3. Acute kidney failure.Resolving 4. History of cerebrovascular accident. 5. Bibasilar atelectasis with possible pneumonia. 6. History of colon cancer and bladder cancer. 7. Possible Hypersensitivity Pneumonia or Edema Plan : 1. Cont Lasix [address] on A/C rate 14 and FIO2 45 %, PEEP +8 3. Nebs qid ,Duoneb. 4. Trach lavage and suction 5. Antibiotics per ID 6. Cont Keppra/Dilantin 7. D/W Dr Abraham.May need lung biopsy. 8. Culture trach secretions 9. D/W about doing a Vats lung Biopsy but she is worried about the potential complications Jaime Encinas MD Oct 20, 2016 15:51
--- NOTE | 2016-10-20 15:55 | PD.CARD.PN ---
Subjective Subjective Remarks No acute cardiac events. Pending possible VATS lung biospy. Objective Medications Current Medications Medications (Trade) Dose Ordered Sig/Awilda Route Start Time Stop Time Status Last Admin (NS Flush) 2 ml UNSCH PRN IV FLUSH 09/09/16 00:45 10/17/16 05:44 (NS Flush) 2 ml BID IV FLUSH 09/09/16 09:00 10/20/16 08:34 (Narcan Inj) 0.4 mg UNSCH PRN IV 09/09/16 00:45 (Pill Splitter) 1 ea UNSCH PRN OTHER 09/09/16 14:00 (Eliquis) 5 mg BID PO 09/10/16 09:00 Future Hold 10/20/16 08:32 (Catapres) 0.1 mg Q6H PRN PO 09/11/16 14:30 09/19/16 23:02 (Lopressor Inj) 5 mg Q2HR PRN IV PUSH 09/16/16 14:00 10/10/16 00:40 (Apresoline Inj) 10 mg Q6HR PRN IV PUSH 09/16/16 12:45 10/17/16 02:06 (Racepinephrine 2.25% Neb) 0.5 ml Q1HR NEB PRN NEB 09/17/16 17:15 09/17/16 18:02 (Dulcolax Supp) 10 mg DAILY PRN RECTAL 09/19/16 13:30 (Albuterol Neb) 2.5 mg Q2HR NEB PRN NEB 09/21/16 12:00 10/20/16 10:09 (Phoslo) 667 mg TID PO 09/21/16 18:00 10/20/16 12:21 (Peridex 0.12% Liq) 15 ml BID@08,20 MT 09/22/16 20:00 10/20/16 09:12 (Trandate) 100 mg TID PO 09/30/16 13:00 10/20/16 12:21 (NovoLOG SUPPLEMENTAL SCALE) 1 Q6HR SQ 10/01/16 13:15 10/20/16 12:21 (D50w (Vial) Inj) 50 ml UNSCH PRN IV PUSH 10/01/16 13:15 (Glucagon Inj) 1 mg UNSCH PRN OTHER 10/01/16 13:15 (Tears Naturale Opth Soln) 1 drop Q8HR EACH EYE 10/03/16 14:00 10/20/16 14:19 (Colace Liq) 100 mg Q12HR NG 10/04/16 09:00 10/20/16 08:32 (Senna Liq) 8.8 mg BID NG 10/04/16 09:00 10/20/16 08:31 (NS Flush) DAILY IVF 10/04/16 12:45 10/20/16 08:34 (NS Flush) UNSCH PRN IVF 10/04/16 12:45 (Miralax) 17 gm BID NG 10/05/16 09:00 10/20/16 08:34 (Reglan Inj) 5 mg Q8HR IV PUSH 10/07/16 08:00 10/20/16 14:19 (Trandate Inj) 10 mg Q1HR PRN IV PUSH 10/07/16 13:00 10/20/16 09:05 (Nitroglycerin 2% Oint) 2 inch Q6HR PRN TOPICAL 10/07/16 13:00 (Carafate Liq) 1 gm Q6HR NG 10/08/16 12:00 10/20/16 12:21 Lacosamide 200 mg/ Sodium Chloride 120 ml @ 110 mls/hr Q12H IV 10/09/16 00:00 10/20/16 12:21 (Free Water) 200 ml Q4HR G-TUBE 10/09/16 08:00 10/20/16 12:00 Levetriacetam 500 mg/Sodium Chloride 105 ml @ 420 mls/hr Q12HR IV 10/10/16 09:00 10/20/16 08:32 (SoluMEDROL INJ) 30 mg DAILY IV PUSH 10/12/16 09:00 10/20/16 08:32 (Pepcid) 20 mg BID NG 10/15/16 13:00 10/20/16 08:33 (Aspirin Chew) 81 mg DAILY PEG 10/16/16 12:00 10/20/16 08:33 (Lasix) 40 mg DAILY NG 10/21/16 09:00 (NS Flush) 2 ml BID IV FLUSH 10/21/16 09:00 (NS Flush) 2 ml UNSCH PRN IV FLUSH 10/20/16 11:15 Cefazolin Sodium 500 mg/Sodium Chloride 505 ml @ 0 mls/hr END WORKER IRRIGATION 10/20/16 14:00 10/27/16 13:59 Cefazolin Sodium/ Dextrose 50 ml @ 150 mls/hr END WORKER IV 10/20/16 13:00 10/27/16 12:59 (Hibiclens 4% Top Soln) 1 applic END WORKER TOPICAL 10/20/16 13:00 10/27/16 12:59 Vital Signs / I&O Vital Signs Date Time Temp Pulse Resp B/P (MAP) Pulse Ox O2 Delivery O2 Flow Rate FiO2 10/20/16 13:55 94 45 10/20/16 11:00 86 10/20/16 11:00 100 Mechanical Ventilator 45 Trach Collar 10/20/16 11:00 100.0 85 26 121/68 (85) 96 10/20/16 11:00 45 10/20/16 08:30 92 40 10/20/16 07:00 101 10/20/16 07:00 40 10/20/16 07:00 99.3 100 24 142/83 (102) 93 10/20/16 07:00 93 Mechanical Ventilator 40 Trach Collar 10/20/16 05:16 94 45 10/20/16 03:00 45 10/20/16 03:00 101 10/20/16 03:00 98.0 101 32 156/95 (115) 92 10/20/16 03:00 92 Mechanical Ventilator 45 10/20/16 01:29 95 45 10/19/16 23:00 45 10/19/16 23:00 96 Mechanical Ventilator 45 10/19/16 23:00 98 10/19/16 23:00 97.9 100 29 158/91 (113) 96 10/19/16 22:32 96 45 10/19/16 20:38 94 45 10/19/16 19:00 45 10/19/16 19:00 89 10/19/16 19:00 97.7 89 28 142/76 (98) 95 10/19/16 19:00 95 Mechanical Ventilator 45 10/19/16 16:33 98 45 I/O 10/19/16 10/19/16 10/19/16 10/20/16 10/20/16 10/20/16 06:59 14:59 22:59 06:59 14:59 22:59 Intake Total 1693 ml 205 ml 1327 ml 1555 ml Output Total 650 ml 810 ml 1305 ml Balance 1043 ml 205 ml 517 ml 250 ml IV Total 330 ml 205 ml 440 ml Tube Feeding 963 ml 577 ml 515 ml Tube Irrigant 750 ml Other 400 ml 600 ml Output Urine Total 650 ml 760 ml 1105 ml Stool Total 0 ml 50 ml 200 ml Physical Exam GENERAL: Elderly male SKIN: Warm and dry. HEAD: Normocephalic. EYES: No scleral icterus. No injection or drainage. NECK: Supple, trachea midline. Tracheostomy CARDIOVASCULAR: reg rhythm, tachycardia RESPIRATORY: Equal, trach GASTROINTESTINAL: Abdomen soft,nondistended. PEG MUSCULOSKELETAL: No cyanosis, pedal edema BACK: Nontender without obvious deformity. Laboratory Laboratory Tests Test 10/20/16 03:42 White Blood Count 12.1 TH/MM3 Red Blood Count 2.50 MIL/MM3 Hemoglobin 7.7 GM/DL Hematocrit 23.4 % Mean Corpuscular Volume 93.6 FL Mean Corpuscular Hemoglobin 30.8 PG Mean Corpuscular Hemoglobin Concent 32.9 % Red Cell Distribution Width 16.5 % Platelet Count 178 TH/MM3 Mean Platelet Volume 9.1 FL Neutrophils (%) (Auto) 70.7 % Lymphocytes (%) (Auto) 12.3 % Monocytes (%) (Auto) 6.3 % Eosinophils (%) (Auto) 10.3 % Basophils (%) (Auto) 0.4 % Neutrophils # (Auto) 8.5 TH/MM3 Lymphocytes # (Auto) 1.5 TH/MM3 Monocytes # (Auto) 0.8 TH/MM3 Eosinophils # (Auto) 1.3 TH/MM3 Basophils # (Auto) 0.1 TH/MM3 CBC Comment DIFF FINAL Differential Comment Blood Urea Nitrogen 44 MG/DL Creatinine 1.50 MG/DL Random Glucose 116 MG/DL Total Protein 6.3 GM/DL Albumin 1.7 GM/DL Calcium Level 8.9 MG/DL Alkaline Phosphatase 77 U/L Aspartate Amino Transf (AST/SGOT) 44 U/L Alanine Aminotransferase (ALT/SGPT) 40 U/L Total Bilirubin 0.2 MG/DL Sodium Level 135 MEQ/L Potassium Level 4.0 MEQ/L Chloride Level 101 MEQ/L Carbon Dioxide Level 28.5 MEQ/L Anion Gap 6 MEQ/L Estimat Glomerular Filtration Rate 46 ML/MIN Imaging Last 72 hours Impressions Chest X-Ray 10/20/16 0600 Signed Impressions: Service Date/Time: Tuesday, October 20, 2016 05:21 - CONCLUSION: 1. Tracheostomy unchanged. Probable pulmonary fibrosis with mild edema. Cardiomegaly. Amado Crain MD Chest CT 10/20/16 0000 Signed Impressions: Service Date/Time: Tuesday, October 20, 2016 13:29 - CONCLUSION: Small bilateral pleural effusions progressed in the interval. Diffuse interstitial and alveolar opacities persist in both lungs with progression to air partial air bronchograms in the lower lobes. Victor Hugo Kiser MD FACR Chest X-Ray 10/18/16 0000 Signed Impressions: Service Date/Time: Tuesday, October 18, 2016 15:05 - CONCLUSION: 1. Stable coarse bilateral mixed interstitial and alveolar opacities, more confluent in the left lower lung zone. 2. No significant interval change. Richardson Haney MD Assessment and Plan Problem List: (1) History of CVA (cerebrovascular accident) ICD Codes: Z86.73 - Personal history of transient ischemic attack (TIA), and cerebral infarction without residual deficits Status: Acute (2) CKD (chronic kidney disease) stage 3, GFR 30-59 ml/min ICD Codes: N18.3 - Chronic kidney disease, stage 3 (moderate) Status: Acute (3) S/P CABG x 3 ICD Codes: Z95.1 - Presence of aortocoronary bypass graft Status: Acute (4) Atrial fibrillation ICD Codes: I48.91 - Unspecified atrial fibrillation (5) Acute hypoxemic respiratory failure ICD Codes: J96.01 - Acute respiratory failure with hypoxia Status: Acute (6) Hypertension ICD Codes: I10 - Essential (primary) hypertension Status: Acute (7) Thoracic aortic aneurysm without rupture ICD Codes: I71.2 - Thoracic aortic aneurysm, without rupture Status: Acute Assessment and Plan PLAN: Continue labetalol and eliquis. Hbg trending down. Will need iron replacement Weaning high dose steroids Pending possible VATS with lung biospy Continue diuresis SBP goal < 130 DBP goal < 90. The patient was seen and evaluated by Dr. Moran who completed a [id number] encounter, completed a physical exam and participated in evaluation and management. Elin Kwok Oct 20, 2016 15:55
--- NOTE | 2016-10-20 16:00 | HHI.PR ---
Subjective Remarks trach Objective Vital Signs Date Time Temp Pulse Resp B/P (MAP) Pulse Ox O2 Delivery O2 Flow Rate FiO2 10/20/16 15:00 45 10/20/16 15:00 100 Mechanical Ventilator 45 Trach Collar 10/20/16 15:00 85 10/20/16 15:00 97.8 84 24 101/60 (74) 95 10/20/16 13:55 94 45 10/20/16 11:00 86 10/20/16 11:00 100 Mechanical Ventilator 45 Trach Collar 10/20/16 11:00 100.0 85 26 121/68 (85) 96 10/20/16 11:00 45 10/20/16 08:30 92 40 10/20/16 07:00 101 10/20/16 07:00 40 10/20/16 07:00 99.3 100 24 142/83 (102) 93 10/20/16 07:00 93 Mechanical Ventilator 40 Trach Collar 10/20/16 05:16 94 45 10/20/16 03:00 45 10/20/16 03:00 101 10/20/16 03:00 98.0 101 32 156/95 (115) 92 10/20/16 03:00 92 Mechanical Ventilator 45 10/20/16 01:29 95 45 10/19/16 23:00 45 10/19/16 23:00 96 Mechanical Ventilator 45 10/19/16 23:00 98 10/19/16 23:00 97.9 100 29 158/91 (113) 96 10/19/16 22:32 96 45 10/19/16 20:38 94 45 10/19/16 19:00 45 10/19/16 19:00 89 10/19/16 19:00 97.7 89 28 142/76 (98) 95 10/19/16 19:00 95 Mechanical Ventilator 45 10/19/16 16:33 98 45 I/O 10/19/16 10/19/16 10/19/16 10/20/16 10/20/16 10/20/16 07:00 15:00 23:00 07:00 15:00 23:00 Intake Total 1693 ml 205 ml 1327 ml 1555 ml Output Total 650 ml 810 ml 1305 ml Balance 1043 ml 205 ml 517 ml 250 ml IV Total 330 ml 205 ml 440 ml Tube Feeding 963 ml 577 ml 515 ml Tube Irrigant 750 ml Other 400 ml 600 ml Output Urine Total 650 ml 760 ml 1105 ml Stool Total 0 ml 50 ml 200 ml Result Diagram: 10/20/16 03410/20/16341 Objective Remarks awake alerts commands well moves ble generally weak sticks out tongue for me rr inc Assessment and Plan Assessment and Plan imp no new spells esr 80 crp and kappa chains and lamda chains 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 shabbir neg on eliquis 5 bid now b12 shots DONE renal issues i ordered some inflammation labs SOME ABN HERE PLEASE ADDRESS ABN KAPPA PROTEINS i dw med team today I WILL SIGNOFF again his vision change due to oleft occipital region cva he had on admission they will do heme consult for above esr inc and abn proteins 10/07/16 [address] rue jerks and eeg shows some bilat pled like almost at time sharps i added dil and vimpat to keppra will recheck mri and eeg follow levels 10/08/16 spep abn due to renal dil 8 free dil around 12 mri no new cva on anticoag eeg reportedly looks better this am sz on vimpat and dil looks better will follow 10/13/16 looks well no sz dil 11 free around 16 on vimpat dil dec keppra to 500 bid and will dc few days if doing well last eeg neg 10/15/16 nurse thought still lethargic so i dced dilantin and cont on keppra nd vimpat can change to po when peg starts to work continue eliquis will fu tue or 10/20/16 still some lethargy i dw dr sommers feels correlates with sz med dosing i dec vimpat now to 100 bid and keppra only on 50 bid will see how does on lower dose ow neurowise handing in there and stable check abg and needs on side for decubitus Reymundo Jeffries MD Oct 20, 2016 15:59
[2016-10-20 16:40] LABS: BLOOD GAS BASE EXCESS 3.7 mmol/L (-2-2); BLOOD GAS CARBOXYHEMOGLOBIN 2.3 % (0-4); BLOOD GAS HCO3 28 mmol/L (22-26); BLOOD GAS O2 HGB SATURATION 95 % (90-100); BLOOD GAS OXYGEN CONTENT 9.7 Vol % (12.0-20.0); BLOOD GAS PCO2 46 mmHg (38-42); BLOOD GAS PO2 103 mmHg (61-120); BLOOD GAS TOTAL HGB 7.1 G/DL (12.0-16.0); CRITICAL VALUE NO; OXYGEN DEVICE VENTILATOR; TEMP CORR TO 98.6
[2016-10-20 16:41] LABS: DRAW SITE RT RADIAL; FIO2 45 %; NUMBER OF ARTERIAL PUNCTURES 1; STAT YES; VENT SETTINGS PRVC/AC 14/600/
[2016-10-21] VITALS (17 sets, daily range): BP systolic 131–167; BP diastolic 73–97; PULSE 83–107; RESP 22–31; TEMP 98.1–99.5; O2SAT 92–99
[2016-10-21] MEDS: SUCRALFATE 1 GM/10 ML CUP NG SCH ×4 (00:04→17:22)
[2016-10-21] MEDS: LACOSAMIDE INJ 100 MG in SODIUM CHLORIDE 0.9% INJ 100 ML IV SCH ×2 (00:05→12:00)
[2016-10-21] MEDS: CHLORHEXIDINE 0.12% (ORAL KIT) 15 ML CUP MT SCH ×2 (00:06→09:25)
[2016-10-21] MEDS: FREE WATER G-TUBE SCH ×6 (04:00→20:00)
[2016-10-21 04:33] LABS: BICARBONATE 27.8 MEQ/L (21.0-32.0); POTASSIUM 4.2 MEQ/L (3.5-5.1)
[2016-10-21] MEDS: INSULIN ASPART SUPPLEMENTAL SCALE SQ SCH ×4 (06:00→17:23)
[2016-10-21] MEDS: ARTIFICIAL TEARS OPTH SOLN 15 ML BTL EACH EYE SCH ×3 (06:12→22:22)
[2016-10-21] MEDS: METOCLOPRAMIDE HCL 10 MG/2 ML VIAL IV PUSH SCH ×3 (06:13→22:21)
[2016-10-21 06:32] LABS: MEAN CELL VOLUME 91.1 FL (80.0-100.0); MEAN CORPUSCULAR HGB CONC 31.9 % (32.0-36.0); PLATELET COUNT 220 TH/MM3 (150-450); RED BLOOD COUNT 2.42 MIL/MM3 (4.50-5.90); RED CELL DISTRIBUTION WIDTH 16.6 % (11.6-17.2); REVIEW FLAG FINAL; WHITE BLOOD COUNT 9.7 TH/MM3 (4.0-11.0)
[2016-10-21 06:39] LABS: INTERNATIONAL NORMALIZED RATIO 1.1 RATIO
[2016-10-21 06:42] LABS: PROTHROMBIN TIME - PATIENT 12.2 SEC (9.8-11.6)
--- NOTE | 2016-10-21 08:02 | HHI.CCPN ---
Subjective Remarks/Hospital Course 75 y/o man now about 4 weeks following CABG complicated by CVA. Presented back 08/28 with new onset right arm weakness. Hospital course has been complicated by CKD and fluid overload. We have attempted BiPAP for several hours but he remains in distress and although oxygenation is acceptable work of breathing is excessive. Worrisome increasing metabolic acidosis. 09/17: Gas exchange much improved. BNP 1681, ScVO2 71%. It appears that cardiac output is more than adequate for peripheral needs and the primary pathology is renal failure and fluid overload. If we can manage volume I can probably get him extubated. 09/18: Diffuse crackles. Needs to be diuresed today. Tolerating extubation but at risk for hypoxemic failure again. 09/20 - Re consulted due to worsening hypoxia. Currently on nonrebreather mask. Chest x-ray shows worsening consolidation right lobe creatinine slightly improved over. Family request transfer to [facility] however refused. We'll attempt to decipher status currently unknown. 09/21: Remains on nonrebreather mask. Saturations between 89-97%. Chest x-ray unchanged. Not tachypnea. Not confused. 09/22: Radiographic studies show diffuse interstitial process with skip areas - more indicative of infectious/inflammatory process. Sats 85% with labored pattern. Required intubation for deteriorating respiratory status. 09/23: Gas exchange improving. Pulmonary infiltrates remain very concerning - if most recent sputum is benign I would not be opposed to steroids. 09/24: Extubated today. On 3 L nasal cannula. Passed swallow evaluation. Appropriate interactive status post extubation. 09/29: Critical care reconsult requested by Dr. Meza for respiratory failure. Patient reportedly was on BiPAP this morning. He was given additional diuretic earlier as he was short of breath. With this he seems to have improved somewhat and has been on a nonrebreather facemask for more than a few hours. He states that he is breathing much better. Patient being adamant about not using BiPAP. I had a detailed conversation about the importance of using BiPAP especially at night in view of his history of sleep apnea. Patient did not appear to be in acute distress though he was requiring a nonrebreather facemask at the time of my evaluation. No urgent need for BiPAP or intubation at this time. In fact patient is stating that he is breathing much better than this morning. 09/30: Remains on nonrebreather facemask. Refused BiPAP at night. States that he is breathing better today than yesterday. 10/01: 02 30 L/m 100% FiO2. O2 sats borderline. Episodes of confusion. When I evaluated the patient he was sitting up in bed and was able to converse. Not using accessory muscles of respirations currently. 10/02: The patient is alert and oriented currently has been weaned down to high flow nasal cannula with an FiO2 of 65%, maintaining O2 saturation to 95%. Patient is appropriately conversant no episodes of confusion noted. 10/03: Yesterday, the patient received 2 units of packed red blood cells with Furosemide dosing in between transfusion of units, with diuresis of approximately 2900 cc. Last night, the patient was noted to have respiratory decompensation, continued refusal to utilize BiPAP during the night. FiO2 requirements increased to 100% this a.m., on high flow nasal cannula, with noted accessory muscle use and inability to speak in complete sentences secondary to dyspnea. The patient received additional dose of Lasix this a.m. , chest x-ray appeared to be worsened this a.m. .Patient subsequently became hypoxic requiring emergent intubation this a.m.., O2 sat saturation 80s on 100 % FiO2. 10/04: Intubated yesterday due to general and hypoxia. Diuresed with 80 mg furosemide 1. Tmax 99.8. Currently 97.8. Tube feeds initiated. No bowel movement. 10/05: Afebrile. Subcutaneous air in neck bilaterally on chest x-ray today. No obvious pneumothorax. No pneumothorax on chest x-ray yesterday post central line placement. Tolerating tube feeding. No bowel movement. 10/06: Currently resting in bed. Subcutaneous air neck much improved. X-ray improved. FiO2 down to 40%. Tolerating tube feeding. One bowel movement. 10/07: Afebrile. Currently on propofol drip at 40 mg/kg per minute. X-ray has improved. Currently not tolerating tube feeds. 2 bowel movements documented. Sedation vacation today ordered. 10/08: Afebrile. Saturations 95% on FiO2 50%. MRI brain showed no acute findings last night. EEG repeated for today. PLEDs on previous EEG. Vimpat along with fosphenytoin added per neurology. Arousable on the ventilator. Tube feeds to be resumed today. Discussed with at length yesterday 10/09: MAXIMUM TEMPERATURE 99.5. Currently 99.3. Tube feeds currently at 20 cc an hour. Minimal residuals. Arousable and intermittently follows commands mostly with right upper extremity. 10/10: Febrile. Tube feeds currently at 25 cc an hour. Minimal residuals. Positive BM. Not arousable this AM. EEG still reveals underlying sharp spikes. Vimpat increased yesterday. 10/11: Remains intubated tachypneic on CPAP 11/11, Lethargic not consistently following commands. After being placed on 06/11 patient is more tachypneic, breathing in mid 30s 10/12: Remains intubated off sedation. Very lethargic, copious oral secretions and moderate ET tube secretions. We'll discuss with general surgery regarding tracheostomy today. 10/11/16 did not show seizure activity but moderate encephalopathy 10/13: Remains off sedation quite lethargic. We except to sternal rub. We believe follows commands on right upper and bilateral lower extremities. Low- grade fever. Tracheostomy planned for afternoon 10/14: s/p trach yesterday. Remains lethargic, but follows commands on the right side. Increase in white count noted. Creatinine increasing now 1.8. Will discontinue IV Lasix and give IV hydration for 24 hours. Attempt T piece 2-4 hours 10/15: s/p trach yesterday. Tolerated TP 2 hours. Remains lethargic, weakly follows commands. PEG today. Cr improved from 1.8 to 1.5 with gentle hydration 10/16: no changes. Cr slowly improving. 10/17: no clinical improvements. awaiting placement. weather concerns prevent further movement towards placement in LTAC. 10/18: no changes. ready for LTAC. 10/19: Unable to wean. Increasing oxygen requirements overnight. PEEP up to 10, FiO2 55%. Chest x-ray from yesterday shows increasing alveolar and interstitial infiltrates. Increase PO Lasix to 40 BID and additional IV Lasix 20 mg x1. Sputum culture from yesterday pending 10/20: Unable to renal to ventilator FiO2 with his from 45-50%. PEEP at 8. Chest x-ray shows worsening bilateral alveolar and interstitial infiltrates right worse than left. Discussed with Dr. Lee, will re consult CTS for consideration of lung biopsy. CT chest today. Subjective: 10/21: No clinical changes overnight patient appears slightly more awake. Dr. Jeffries decreased Vimpat to 100 bid and Keppra 500 bid 10/20. Patient's requested pulmonology second opinion. Dr. Cevallos consulted. CXR today pending Objective Vital Signs Date Time Temp Pulse Resp B/P (MAP) Pulse Ox O2 Delivery O2 Flow Rate FiO2 10/21/16 03:36 98 45 10/21/16 03:00 98.1 97 22 167/97 (120) 10/21/16 03:00 Mechanical Ventilator 10/20/16 03:00 Intake and Output 10/21/16 10/21/16 10/22/16 08:00 16:00 00:00 Intake Total 1285 ml Output Total 1120 ml Balance 165 ml Result Diagram: 10/21/16 0334 10/21/16 0334 Other Results Microbiology Date/Time Source Procedure Growth Status 10/18/16 15:45 Sputum Endotracheal Gram Stain - Final Complete 10/18/16 15:45 Sputum Endotracheal Sputum Culture - Final HEAVY GROWTH NORMAL RESPIRATORY MEL Complete Laboratory Tests Test 10/20/16 16:25 Blood Gas Puncture Site RT RADIAL Blood Gas Patient Temperature 98.6 Blood Gas HCO3 28 mmol/L (22-26) Blood Gas Base Excess 3.7 mmol/L (-2-2) Blood Gas Oxygen Saturation 95 % (90-100) Arterial Blood pH 7.40 (7.380-7.420) Arterial Blood Partial Pressure CO2 46 mmHg (38-42) Arterial Blood Partial Pressure O2 103 mmHg (61-120) Arterial Blood Oxygen Content 9.7 Vol % (12.0-20.0) Arterial Blood Carboxyhemoglobin 2.3 % (0-4) Arterial Blood Methemoglobin 1.0 % (0-2) Blood Gas Hemoglobin 7.1 G/DL (12.0-16.0) Oxygen Delivery Device VENTILATOR Blood Gas Ventilator Setting PRVC/AC 14/600/ Blood Gas Inspired Oxygen 45 % Imaging Last Impressions Chest X-Ray 10/10/16 0600 Signed Impressions: Service Date/Time: Monday, October 10, 2016 04:25 - CONCLUSION: 1. Support apparatus in satisfactory position. Patchy airspace and interstitial changes similar to October 2. Amado Crain MD Brain MRI 10/07/16 0000 Signed Impressions: Service Date/Time: September 21:45 - CONCLUSION: 1. Residual small areas of infarction seen bilaterally. There are fewer areas of signal abnormality seen on the diffusion-weighted images on the current exam. New areas of infarction are not present. 2. Areas of demyelination throughout the cerebral and pontine white matter likely from small vessel ischemic change. 3. Fluid in the mastoid air cells. Jarad Cat MD Abdomen X-Ray 10/07/16 0000 Signed Impressions: Service Date/Time: September 08:32 - CONCLUSION: Unremarkable bowel gas pattern. Sanya Cvaazos MD Neck CT 10/05/16 0000 Signed Impressions: Service Date/Time: Wednesday, October 05, 2016 10:41 - CONCLUSION: Extensive subcutaneous emphysema. Jarad De Jesus MD Chest CT 10/05/16 0000 Signed Impressions: Service Date/Time: Wednesday, October 05, 2016 10:43 - CONCLUSION: Prior median sternotomy cardiac surgery atherosclerotic cardiovascular disease with left ventricular cardiomegaly and evidence of interstitial alveolar edema in both lungs consistent with CHF. Support tubes in place with subcutaneous emphysema in the soft tissues of neck bilaterally and supraclavicular. There is no evidence of pneumothorax. Lele Escudero MD Head Magnetic Resonance Angiography 09/10/16 1028 Signed Impressions: Service Date/Time: Saturday, September 10, 2016 10:57 - CONCLUSION: 1. Unremarkable MRA examination without evidence for large vessel occlusion, aneurysm, or vascular malformation. Richardson Haney MD Carotid Artery Ultrasound 09/09/16 1028 Signed Impressions: Service Date/Time: September 10:43 - CONCLUSION: 1. Moderate visible plaque without hemodynamically significant stenosis identified. No significant change from August 25. Amado Crain MD Renal Ultrasound 09/09/16 0000 Signed Impressions: Service Date/Time: September 15:41 - CONCLUSION: 1. Cortical atrophy with small bilateral renal cysts. No hydronephrosis. Amado Crain MD Head CT 09/08/16 225 Signed Impressions: Service Date/Time: Thursday, September 08, 2016 23:41 - CONCLUSION: Stable noncontrast CT with no evidence of hemorrhage or acute infarction. Atrophy and chronic small vessel splenic changes remain. Sanya Cavazos MD Objective Remarks GENERAL: 75-year-old male currently on vent via trach SKIN: Warm and dry. Well perfused HEAD: Atraumatic. Normocephalic. ENT: Oral cavity is dry. NECK: Trachea midline. Trach site clean, dry CARDIOVASCULAR: IRR. S1, S2 no S4. Without murmur RESPIRATORY: Air entry decreased bilaterally at bases, bilateral coarse crackles and rhonchi GASTROINTESTINAL: Abdomen soft, non-tender, nondistended. No guarding. BS active. MUSCULOSKELETAL: Extremities with trace to 1+ B/L lower extremity edema. No obvious deformities. NEUROLOGICAL: Opens eyes to command. Follows commands very weakly x4. LUE weaker than other ext Procedures 10/03- intubation Date of Insertion: Oct 03, 2016 Date of Insertion: Oct 04, 2016 Line: Central Venous Catheter Side: Right Location: Internal, Jugular A/P Assessment and Plan Neuro/Psych: Left occipital, bilateral frontal parietal cerebellar CVA subacute Seizure Encephalopathy Chronic headaches Chronic benzodiazepine use, chronic oxycodone use MRI 09/10 brain revealed left occipital, bilateral frontal parietal and cerebellar CVA likely [employer]FIE[employer] distribution. MRI brain 10/07 - Residual frontal/ parietal and occipital junction CVA. Significant demyelination Followed by Dr. Jeffries/neurology. EEG 10/07 bilateral PLEDs with episodic sharp activity, EEG 10/10: Ongoing seizure activity with lightening sedation. Repeat EEG 10/11/16-no seizure activity, moderate encephalopathy Dr. Jeffries decreased Vimpat to 100 bid and Keppra 500 bid 10/20. Dilantin DCd Meropenem, linezolid and famotidine all discontinued Off all continuos sedation CV: Coronary disease status post CABG ASCVD Carotid stenosis TAAA Hypertension Dyslipidemia History atrial fibrillation status post ablation 2011 Followed by cardiology.Continue PO Apixaban 5 mg twice a day per cardiology and aspirin 81 mg by mouth daily. Off amiodarone for suspected pulmonary toxicity. Off atorvastatin 40 mg daily/ home medication for dyslipidemia (reported ? statin induced myopathy) Echocardiogram revealed EF 70%. OHS septal motion./Paradoxical, CARA 50-60 mmHg Currently labetalol 100 mg 3 times a day for hypertension. Goal systolic blood pressure less than 130 per cardiology Lasix 20 mg daily Infiltrates unlikely to be cardiogenic pulm edema. Current wt 85 kg, admission wt was 99. Also BNP 250-300 range, EF 70%. 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 Ct chest 10/20 worsening interstitial and alveolar infiltrates CTS Dr. Argueta reconsulted for lung biopsy. Discussed with Dr. Mzea. now wants a second pulmonary opinion. Dr. Cevallos consult pending at this time Not tolerating CPAP, PEEP up to 8, FiO2 45-50%. s/p Trach 10/[address] Souza. Off amiodarone for suspected pulmonary toxicity. Ventilator bundle. Was unable to extubate due to severe neuromuscular weakness and encephalopathy and CVA. 3rd intubation, Last 10/03 Albuterol/ipratropium every 6 hours with albuterol aerosols as indicated Chest x-ray 10/08 - improved bilateral subcutaneous emphysema neck. No obvious pneumothorax. CT chest ruled out pneumothorax. Likely barotrauma from mechanical ventilation. Methylprednisolone currently on 30 mg daily- ( Prednisone 40mg q day taper over' s several weeks recommended by nephrology for possible pantoprazole induced interstitial nephritis) Discontinued montelukast 10 mg by mouth daily in light of possible seizure threshold lowering/rare Repeat sputum culture 10/18 neg to date GI: On Suplena goal 55 cc an hour (per dietary recommendations). On sucralfate 1 g by mouth 4 times daily for GI prophylaxis Docusate sodium 100 mg twice a day, senna liquid 8.6 mg twice a day and polyethylene glycol 3350 17 g twice daily for bowel regimen Metoclopramide 5 mill grams IV every 8 hours History of hydroureter Renal ultrasound revealed no hydronephrosis continue Choi Endo: Sliding scale insulin with NovoLog with Accu-Cheks every 6 hours/low regimen Renal: Acute on chronic kidney injury Creat 1.5 stable. Continue Lasix to [address] 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 Slowly wean steroids due to this issue as above pulmonary section. Heme: History of colon cancer status post partial colectomy History of bladder cancer Normocytic anemia Leukocytosis Monitor CBC daily. Follow trends. Transfuse 1 unit of PRBC today in anticipation of PEG Noted elevated lambda and kappa Chains/ESR likely secondary underlying acute kidney injury. Evaluated by Dr. Mccollum/hematology ID: Likely hospital-acquired pneumonia Sepsis Meropenem//linezolid 09/27 through 10/07 Currently observe off ABX Pertinent cultures 10/18 Sputum culture neg 10/03-repeat blood, urine Legionella and pneumococcal antigens and sputum cultures no growth 10/03-influenza negative 09/28 - blood cultures 2 - no growth 09/22 - sputum - no growth 09/16 - blood cultures 2 - no growth Recheck urine 10/09- Betty- changed choi Recheck blood cultures 2 and sputum 10/10. Repeat sputum culture 10/13/16 neg to date Off all antibiotics per infectious disease FEN: Hypernatremia - resolved Monitor and replete electrolytes free water 200 cc every 4 hours. MSK: PT evaluate and treat Prophylaxis - GI -sucralfate - DVT - SCD/apixaban-holding for possible lung biopsy Access - Right subclavian CVL placed 09/16 - 10/04 - Right IJ CVL 10/04-10/14 PIV Dispo: Awaiting pulmonology consultation from Dr. cevallos, and decision regarding lung biopsy. Level 3 Giovani Abarham MD Oct 21, 2016 08:02
--- NOTE | 2016-10-21 08:19 | RADRPT ---
EXAM DATE/TIME: 10/21/2016 07:51 [facility] COMPARISON: CHEST SINGLE AP, October 20, 2016, 5:21. INDICATIONS : Shortness of breath. MEDICAL HISTORY : None. SURGICAL HISTORY : CABG. ENCOUNTER: Subsequent ACUITY: 1 week PAIN SCORE: 0/10 LOCATION: Bilateral chest FINDINGS: Tracheostomy tube is noted in good position approximately 5 cm above the thor. The heart is enlarg ed. Diffuse pulmonary infiltrates are stable. Median sternotomy wires are noted status-post cardiac surgery. CONCLUSION: 1. Stable diffuse pulmonary infiltrates. 2. Stable cardiomegaly. Jeffrey Mohan MD on October 21, 2016 at 8:12 Board Certified Radiologist. This report was verified electronically.
[2016-10-21] MEDS: RESP: ALBUTEROL 2.5 MG/3 ML NEB (PRN) NEB ×2 (08:34→21:21)
--- NOTE | 2016-10-21 08:53 | PD.CAR.PN ---
CVT Progress Note Subjective/Hospital Course: 10/01 remains on high flow 02 poor reserve, continue diuresis , antibiotics/ OOB as tolerated 10/02/16 continues on high flow O2 No c/o 10/04 pt reintubated yesterday , 2/2 resp distress now sedated on vent, on 40% fio2 renal function stable, non-oliguric 10/05 pt remains intubated 3rd time on 40% FI02 CT chest : groundglass appearance bilateral infiltrates bullous emphysema, interstitial edema / Dr Encinas spoke with Dr Zamora regarding possible open lung bx: RE ? vasculitis / PNA/ interstitial lung dz / amiodarone toxicity pt too high risk for thoracic surgery at this time , continue current treatment / eval for trach and peg soon CM eval for LTAC 10/06 being eval for possible bedside trach , then eval for LTAC remains sedated on vent 40% Fi02 sub q air right neck improved 10/07 pt had bedside - [employer] possible epileptic activity on EEG. Meropenem, linezolid and famotidine all discontinued. Loaded with Keppra and scheduled 500 mg IV twice a day. Neurology consult for management of antiepileptics. MRI brain pending is also agreeable for tracheostomy placement remains on vent, not tolerating tube feeding 10/[address] Jeffries , pt on sedation vacation opened eyes, wiggled both feet , left sided weakness moved right arm , very weak MRI brain , no new infarct 10/12 pt remains on vent , will open eyes track, very weak on antiepileptic meds for bedside trach in am 10/20 we were asked to re-eval pt 2/2 persistent resp failure/ difficulty weaning from vent pulm edema ( concern for amiodarone toxicity) eval for right video assisted thoracoscopic lung biopsy will need to be scheduled for tuesday, eliquis on hold 10/21 pt tentatively scheduled for Right VATS/ lung bx, however has not signed consent Dr Zamora will speak with pt directly today Pt is more awake following commands, moving all ext nodding head yes or no to questions antiseizure meds doses decreased by Neuro Objective: GENERAL: more awake, no sedation , following simple commands SKIN: Warm and dry. HEAD: Normocephalic. EYES: No scleral icterus. No injection or drainage. NECK: Supple, trachea midline. No JVD or lymphadenopathy. CARDIOVASCULAR: Regular rate and rhythm without murmurs, gallops, or rubs. mild general edema RESPIRATORY: Breath sounds equal bilaterally. few coarse breath sounds bilaterally No accessory muscle use. Trach mid line / on PRVC mode at 40% Fi02 GASTROINTESTINAL: Abdomen soft, non-tender, nondistended. MUSCULOSKELETAL: No cyanosis, or edema. BACK: Nontender without obvious deformity. No CVA tenderness. Vital Signs Date Time Temp Pulse Resp B/P (MAP) Pulse Ox O2 Delivery O2 Flow Rate FiO2 10/21/16 08:16 95 40 10/21/16 08:09 40 10/21/16 08:09 99.5 107 29 131/77 (95) 92 10/21/16 08:09 92 Mechanical Ventilator 40 10/21/16 03:36 98 45 10/21/16 03:00 98.1 97 22 167/97 (120) 99 10/21/16 03:00 97 Mechanical Ventilator 45 10/21/16 03:00 97 10/21/16 03:00 45 10/20/16 23:53 97 45 10/20/16 23:00 45 10/20/16 23:00 93 Mechanical Ventilator 45 10/20/16 23:00 98.1 92 24 156/89 (111) 93 10/20/16 23:00 89 10/20/16 20:45 99 45 10/20/16 20:00 99 Mechanical Ventilator 45 10/20/16 19:00 45 10/20/16 19:00 98.1 81 25 145/89 (107) 92 10/20/16 19:00 92 Mechanical Ventilator 50 10/20/16 19:00 85 10/20/16 16:25 98 45 10/20/16 15:00 45 10/20/16 15:00 100 Mechanical Ventilator 45 Trach Collar 10/20/16 15:00 85 10/20/16 15:00 97.8 84 24 101/60 (74) 95 10/20/16 13:55 94 45 10/20/16 11:00 86 10/20/16 11:00 100 Mechanical Ventilator 45 Trach Collar 10/20/16 11:00 100.0 85 26 121/68 (85) 96 10/20/16 11:00 45 Labs: Laboratory Tests Test 10/21/16 03:34 10/21/16 06:11 White Blood Count 9.7 TH/MM3 (4.0-11.0) Red Blood Count 2.42 MIL/MM3 (4.50-5.90) Hemoglobin 7.0 GM/DL (13.0-17.0) Hematocrit 22.0 % (39.0-51.0) Mean Corpuscular Volume 91.1 FL (80.0-100.0) Mean Corpuscular Hemoglobin 29.0 PG (27.0-34.0) Mean Corpuscular Hemoglobin Concent 31.9 % (32.0-36.0) Red Cell Distribution Width 16.6 % (11.6-17.2) Platelet Count 220 TH/MM3 (150-450) Mean Platelet Volume 8.4 FL (7.0-11.0) Blood Urea Nitrogen 42 MG/DL (7-18) Creatinine 1.53 MG/DL (0.60-1.30) Random Glucose 115 MG/DL (74-106) Calcium Level 8.4 MG/DL (8.5-10.1) Sodium Level 134 MEQ/L (136-145) Potassium Level 4.2 MEQ/L (3.5-5.1) Chloride Level 98 MEQ/L (98-107) Carbon Dioxide Level 27.8 MEQ/L (21.0-32.0) Anion Gap 8 MEQ/L (5-15) Estimat Glomerular Filtration Rate 44 ML/MIN (>89) Prothrombin Time 12.2 SEC (9.8-11.6) Prothromb Time International Ratio 1.1 RATIO Result Diagram: 10/21/1633310/21/16333 Telemetry: NSR (1) History of CVA (cerebrovascular accident) Plan: new onset of seizures, Neuro following on antiepileptic meds doses decreased, pt more awake (2) CKD (chronic kidney disease) stage 3, GFR 30-59 ml/min Plan: stable indices (3) S/P CABG x 3 (4) Atrial fibrillation Plan: rate controlled eliquis on hold for possible right VATS lung bx on tuesday (5) Acute hypoxemic respiratory failure Plan: on vent, CCM following s/p trach tolerating 40% fi02 not tolerating weaning for tight VATS lung bx on tuesday continue supportive care (6) Hypertension (7) Thoracic aortic aneurysm without rupture Casandra Barton Oct 21, 2016 08:53
[2016-10-21] MEDS: SODIUM CHLORIDE 0.9% FLUSH 10 ML FLUSH IVF SCH (09:00)
[2016-10-21] MEDS: SENNOSIDES SYRUP 8.8 MG/5 ML CUP NG SCH ×2 (09:00→21:13)
[2016-10-21] MEDS ORDERED: FUROSEMIDE 40 MG TAB NG SCH (09:00)
[2016-10-21] MEDS: SODIUM CHLORIDE 0.9% FLUSH 10 ML FLUSH IV FLUSH SCH ×2 (09:00→09:24)
[2016-10-21] MEDS: CALCIUM ACETATE 667 MG CAP PO SCH ×3 (09:22→17:22)
[2016-10-21] MEDS: FAMOTIDINE 20 MG TAB NG SCH ×2 (09:23→21:13)
[2016-10-21] MEDS: ASPIRIN 81 MG CHEW TAB PEG SCH (09:23)
[2016-10-21] MEDS: LABETALOL HCL 100 MG TAB PO SCH ×3 (09:23→17:23)
[2016-10-21] MEDS: methylPREDNISolone SOD SUCC 40 MG/1 ML VIAL IV PUSH SCH (09:24)
[2016-10-21] MEDS: levETIRAcetam INJ 500 MG in SODIUM CHLORIDE 0.9% INJ 100 ML IV SCH ×2 (09:24→21:13)
[2016-10-21] MEDS: DOCUSATE SODIUM 100 MG/10 ML UDC NG SCH ×2 (09:25→21:13)
[2016-10-21] MEDS: POLYETHYLENE GLYCOL 17 GM PKG NG SCH ×2 (09:26→21:13)
--- NOTE | 2016-10-21 19:13 | HHI.IDPN ---
Subjective Subjective Remarks ID [id number] for Dr Darren carrero to have low grade fever intermittently sp trach tomorrow developped liquid diarrhea Antibiotics none Past Medical History PAST MEDICAL HISTORY 1. Coronary artery disease. 2. History of atrial fibrillation. 3. History of aortic aneurysm. 4. Bladder cancer treated with cystectomy. 5. Coronary artery bypass graft surgery. 6. Colon cancer history. 7. Peripheral vascular disease. 8. Hypertension. 9. History of transurethral resection of bladder tumor. 10.History of abdominal aortic aneurysm repair. Allergies: Coded Allergies: atorvastatin (Verified Allergy, Severe, back pain and chest pain, 09/21/16) PATIENT REPORTS HE CAN NOT TAKE ANY STATINS PERIOD. HE LOSES USE OF HIS LEGS pantoprazole (Verified Allergy, Severe, INTERSTITIAL NEPHRITIS, 09/25/16) pravastatin (Verified Allergy, Severe, 09/21/16) PATIENT REPORTS HE CAN NOT TAKE ANY STATINS PERIOD. HE LOSES USE OF HIS LEGS simvastatin (Verified Allergy, Severe, body aches, 09/21/16) PATIENT REPORTS HE CAN NOT TAKE ANY STATINS PERIOD. HE LOSES USE OF HIS LEGS Objective . Vital Signs Date Time Temp Pulse Resp B/P (MAP) Pulse Ox O2 Delivery O2 Flow Rate FiO2 10/21/16 17:00 98.9 83 29 152/91 99 10/21/16 16:45 99 50 10/21/16 16:45 83 10/21/16 16:45 50 10/21/16 16:41 98.8 85 29 143/84 98 10/21/16 16:31 98.8 83 24 133/73 (93) 97 10/21/16 13:49 95 60 10/21/16 12:35 99.0 93 27 143/86 (105) 97 10/21/16 12:00 94 10/21/16 12:00 60 10/21/16 12:00 93 60 10/21/16 08:16 95 40 10/21/16 08:09 40 10/21/16 08:09 99.5 107 29 131/77 (95) 92 10/21/16 08:09 92 Mechanical Ventilator 40 10/21/16 07:00 95 10/21/16 03:36 98 45 10/21/16 03:00 98.1 97 22 167/97 (120) 99 10/21/16 03:00 97 Mechanical Ventilator 45 10/21/16 03:00 97 10/21/16 03:00 45 10/20/16 23:53 97 45 10/20/16 23:00 45 10/20/16 23:00 93 Mechanical Ventilator 45 10/20/16 23:00 98.1 92 24 156/89 (111) 93 10/20/16 23:00 89 10/20/16 20:45 99 45 10/20/16 20:00 99 Mechanical Ventilator 45 10/21/16 10/21/16 10/22/16 15:00 23:00 07:00 Intake Total 1271 ml Output Total 100 ml Balance 1171 ml Tube Feeding 661 ml Blood Product IV Normal Saline Flush 10 ml Other 600 ml Stool Total 100 ml . Laboratory Tests Test 10/20/16 03:42 10/21/16 03:34 White Blood Count 12.1 TH/MM3 9.7 TH/MM3 Red Blood Count 2.50 MIL/MM3 2.42 MIL/MM3 Hemoglobin 7.7 GM/DL 7.0 GM/DL Hematocrit 23.4 % 22.0 % Mean Corpuscular Volume 93.6 FL 91.1 FL Mean Corpuscular Hemoglobin 30.8 PG 29.0 PG Mean Corpuscular Hemoglobin Concent 32.9 % 31.9 % Red Cell Distribution Width 16.5 % 16.6 % Platelet Count 178 TH/MM3 220 TH/MM3 Mean Platelet Volume 9.1 FL 8.4 FL Neutrophils (%) (Auto) 70.7 % Lymphocytes (%) (Auto) 12.3 % Monocytes (%) (Auto) 6.3 % Eosinophils (%) (Auto) 10.3 % Basophils (%) (Auto) 0.4 % Neutrophils # (Auto) 8.5 TH/MM3 Lymphocytes # (Auto) 1.5 TH/MM3 Monocytes # (Auto) 0.8 TH/MM3 Eosinophils # (Auto) 1.3 TH/MM3 Basophils # (Auto) 0.1 TH/MM3 CBC Comment DIFF FINAL Differential Comment Laboratory Tests Test 10/20/16 03:42 10/21/16 03:34 Blood Urea Nitrogen 44 MG/DL 42 MG/DL Creatinine 1.50 MG/DL 1.53 MG/DL Random Glucose 116 MG/DL 115 MG/DL Total Protein 6.3 GM/DL Albumin 1.7 GM/DL Calcium Level 8.9 MG/DL 8.4 MG/DL Alkaline Phosphatase 77 U/L Aspartate Amino Transf (AST/SGOT) 44 U/L Alanine Aminotransferase (ALT/SGPT) 40 U/L Total Bilirubin 0.2 MG/DL Sodium Level 135 MEQ/L 134 MEQ/L Potassium Level 4.0 MEQ/L 4.2 MEQ/L Chloride Level 101 MEQ/L 98 MEQ/L Carbon Dioxide Level 28.5 MEQ/L 27.8 MEQ/L Anion Gap 6 MEQ/L 8 MEQ/L Estimat Glomerular Filtration Rate 46 ML/MIN 44 ML/MIN B-Type Natriuretic Peptide 404 PG/ML Microbiology Date/Time Source Procedure Growth Status 10/19/16 15:35 Blood Peripheral Aerobic Blood Culture - Preliminary NO GROWTH IN 2 DAYS Resulted 10/19/16 15:35 Blood Peripheral Anaerobic Blood Culture - Preliminary NO GROWTH IN 2 DAYS Resulted 10/19/16 15:29 Blood Peripheral Aerobic Blood Culture - Preliminary NO GROWTH IN 2 DAYS Resulted 10/19/16 15:29 Blood Peripheral Anaerobic Blood Culture - Preliminary NO GROWTH IN 2 DAYS Resulted 10/19/16 12:00 Urine Catheterized Urine Urine Culture - Final Betty Albicans Complete Imaging Last Impressions Chest X-Ray 10/21/16 0000 Signed Impressions: Service Date/Time: October 07:51 - CONCLUSION: 1. Stable diffuse pulmonary infiltrates. 2. Stable cardiomegaly. Jeffrey Mohan MD Chest CT 10/20/16 0000 Signed Impressions: Service Date/Time: Thursday, October 20, 2016 13:29 - CONCLUSION: Small bilateral pleural effusions progressed in the interval. Diffuse interstitial and alveolar opacities persist in both lungs with progression to air partial air bronchograms in the lower lobes. Victor Hugo Kiser MD FACR Brain MRI 10/07/16 0000 Signed Impressions: Service Date/Time: September 21:45 - CONCLUSION: 1. Residual small areas of infarction seen bilaterally. There are fewer areas of signal abnormality seen on the diffusion-weighted images on the current exam. New areas of infarction are not present. 2. Areas of demyelination throughout the cerebral and pontine white matter likely from small vessel ischemic change. 3. Fluid in the mastoid air cells. Jarad Cat MD Abdomen X-Ray 10/07/16 0000 Signed Impressions: Service Date/Time: September 08:32 - CONCLUSION: Unremarkable bowel gas pattern. Sanya Cavazos MD Neck CT 10/05/16 0000 Signed Impressions: Service Date/Time: Wednesday, October 05, 2016 10:41 - CONCLUSION: Extensive subcutaneous emphysema. Jarad De Jesus MD Head Magnetic Resonance Angiography 09/10/16 1028 Signed Impressions: Service Date/Time: Saturday, September 10, 2016 10:57 - CONCLUSION: 1. Unremarkable MRA examination without evidence for large vessel occlusion, aneurysm, or vascular malformation. Richardson Haney MD Carotid Artery Ultrasound 09/09/16 1028 Signed Impressions: Service Date/Time: September 10:43 - CONCLUSION: 1. Moderate visible plaque without hemodynamically significant stenosis identified. No significant change from August 25. Amado Crain MD Renal Ultrasound 09/09/16 0000 Signed Impressions: Service Date/Time: , September 09, 2016 15:41 - CONCLUSION: 1. Cortical atrophy with small bilateral renal cysts. No hydronephrosis. Amado Crain MD Head CT 09/08/16 2251 Signed Impressions: Service Date/Time: Thursday, September 08, 2016 23:41 - CONCLUSION: Stable noncontrast CT with no evidence of hemorrhage or acute infarction. Atrophy and chronic small vessel splenic changes remain. Sanya Cavazos MD Physical Exam CONSTITUTIONAL/GENERAL: This is an adequately nourished patient, in no apparent distress. Intubated, on vent TUBES/LINES/DRAINS: SKIN: No jaundice, rashes, or lesions. ENT: Orally intubated =CARDIOVASCULAR: Regular rate and rhythm without murmurs, gallops, or rubs. No JVD. Peripheral pulses symmetric. RESPIRATORY/CHEST: Symmetric, unlabored respirations. Coarse BS to auscultation. . GASTROINTESTINAL: Abdomen soft, non-tender, nondistended. No hepato-splenomegaly , or palpable masses. No guarding. Bowel sounds present. Dignishild in place, bag with large amount o f brown very liquid stool GENITOURINARY: Without palpable bladder distension. MUSCULOSKELETAL: Extremities without clubbing, cyanosis, or edema. NEUROLOGICAL:awake ,alert, communicates PSYCHIATRIC: unable to assess Assessment & Plan Remarks 1. Acute respiratory failure. 3rd intubation. - scheduled for trach 2. Bilateral lung infiltrates, - negative cultures. Pulmonary thinks amiodarone toxicity. Per RN pt's declined open lung bx 3. Leukocytosis. WBC improving. 4. Acute kidney disease. imrpving creatininen Persistent low grade fever, now intermittent Candiduria with indwelling choi: doubt clin significance Sz, resolved Abx associated diarrhea RECOMMENDATIONS fu clinically no abx at this point ro C.diff dw Christina Loving MD Oct 21, 2016 19:13
[2016-10-21] MEDS: APIXABAN 5 MG TABLET PO SCH (21:00)
[2016-10-22] VITALS (13 sets, daily range): BP systolic 119–159; BP diastolic 65–97; PULSE 94–116; RESP 20–34; TEMP 98.2–99.4; O2SAT 92–98
[2016-10-22] MEDS: LACOSAMIDE INJ 100 MG in SODIUM CHLORIDE 0.9% INJ 100 ML IV SCH ×2
[2016-10-22] MEDS: FREE WATER G-TUBE SCH ×2 (04:00)
[2016-10-22] MEDS: SUCRALFATE 1 GM/10 ML CUP NG SCH ×4 (04:11→18:35)
[2016-10-22] MEDS: LABETALOL HCL 100 MG/20 ML VIAL IV PUSH PRN (04:24)
[2016-10-22] MEDS: hydrALAZINE HCL 20 MG/ML VIAL IV PUSH PRN (05:35)
[2016-10-22 05:40] LABS: C. DIFF EPI 027 PRESUMPTIVE NEGATIVE (NEGATIVE)
[2016-10-22] MEDS: INSULIN ASPART SUPPLEMENTAL SCALE SQ SCH ×4 (06:00→18:00)
--- NOTE | 2016-10-22 06:03 | RADRPT ---
EXAM DATE/TIME: 10/22/2016 04:39 [facility] COMPARISON: CHEST SINGLE AP, October 21, 2016, 7:51. INDICATIONS : Shortness of breath. Evaluate for respiratory disease. MEDICAL HISTORY : None. SURGICAL HISTORY : CABG. ENCOUNTER: Subsequent ACUITY: 2 months PAIN SCORE: Non-responsive. LOCATION: chest FINDINGS: A single view of the chest demonstrates diffuse bilateral infiltrates, unchanged. Possible associated effusion on the right. Heart size remains prominent. Tracheostomy tube is unchanged in position. CONCLUSION: Stable chest with diffuse bilateral airspace disease and possible associated right-sided effusio n. Farzad Gan MD on October 22, 2016 at 6:00 Board Certified Radiologist. This report was verified electronically.
[2016-10-22] MEDS: ARTIFICIAL TEARS OPTH SOLN 15 ML BTL EACH EYE SCH ×2 (06:42→13:30)
[2016-10-22] MEDS: METOCLOPRAMIDE HCL 10 MG/2 ML VIAL IV PUSH SCH ×2 (06:42→13:29)
[2016-10-22] MEDS: SODIUM CHLORIDE 0.9% FLUSH 10 ML FLUSH IV FLUSH SCH ×3 (06:43→10:15)
[2016-10-22 07:24] LABS: ALT (GPT) 45 U/L (12-78); ANION GAP 9 MEQ/L (5-15); AST (GOT) 41 U/L (15-37); BICARBONATE 26.3 MEQ/L (21.0-32.0); BLOOD UREA NITROGEN 40 MG/DL (7-18); CHLORIDE 96 MEQ/L (98-107); GLOMERULAR FILTRATION RATE 42 ML/MIN (>89); SODIUM (NA) 131 MEQ/L (136-145)
[2016-10-22 07:26] LABS: ALKALINE PHOSPHATASE 82 U/L (45-117); TOTAL BILIRUBIN ADULT 0.4 MG/DL (0.2-1.0)
[2016-10-22 07:39] LABS: AUTOMATED NEUTROPHIL # 12.3 TH/MM3 (1.8-7.7); BASOPHIL # 0.1 TH/MM3 (0-0.2); BASOPHIL % 0.7 % (0.0-2.0); EOSINOPHIL # 1.5 TH/MM3 (0-0.4); EOSINOPHIL % 8.6 % (0.0-4.0); HEMATOCRIT 26.4 % (39.0-51.0); LYMPHOCYTE # 2.1 TH/MM3 (1.0-4.8); MEAN CELL VOLUME 90.7 FL (80.0-100.0); MEAN CORPUSCULAR HEMOGLOBIN 29.6 PG (27.0-34.0); MEAN CORPUSCULAR HGB CONC 32.7 % (32.0-36.0); MONO % 7.3 % (0.0-8.0); NEUT % 71.4 % (16.0-70.0); PLATELET COUNT 295 TH/MM3 (150-450); RED BLOOD COUNT 2.91 MIL/MM3 (4.50-5.90); RED CELL DISTRIBUTION WIDTH 15.9 % (11.6-17.2); WHITE BLOOD COUNT 17.2 TH/MM3 (4.0-11.0)
--- NOTE | 2016-10-22 08:08 | MB ---
cc: Gerry JIMENEZ DATE OF CONSULTATION 10/21/2016 HISTORY Mr. Hartley is a 75-year-old white male who was admitted here on September 09 just several days after he was discharged after an emergency bypass in late August. I have been asked to see him for a second opinion regarding possible open lung biopsy for respiratory failure and diffuse infiltrates. Mr. Hartley has had a very complicated history here over the last two months originally presenting in August with an acute ischemic event requiring emergent bypass surgery. He did reasonably well after that on presentation, but was only home for several days when he returned with a stroke. He was thought to have had a probable intraoperative stroke at the time of the bypass, but had no physical disability as a consequence of that at the time of discharge. Over the course of this hospitalization, he has had a difficult course from a pulmonary standpoint requiring intubation and reintubation and eventually a tracheostomy for ventilator dependence. On or about September 21, a CT scan was done for increasing respiratory distress and he had diffuse alveolar infiltrates in both lungs along with cystic changes peripherally. There is no previous CT scan to compare and previous chest x-rays have revealed primarily cardiomegaly with interstitial edema. Some degree of interstitial fibrosis could not be excluded on the basis of these films. In any event on September 21, he was reintubated. CT scan revealed diffuse infiltrates in both lungs along with the cystic changes and he was placed on antibiotics broad-spectrum for hospital-acquired pneumonia, as well as steroids. There was some thought at that time that he may have amiodarone toxicity as this came on rather suddenly. However initially, he was clearly in some degree of heart failure and with diuretics did improve somewhat and was weaned and extubated but subsequently reintubated. He has been unable to be weaned now over the last several weeks and a follow-up CT scan yesterday continues to revealed extensive ground glass densities but also fibroproliferative changes with cysts and interstitial fibrosis peripherally on the most recent CT scan of 10/20. There has been some clearing of the infiltrates in the lung when compared to September. Examining the patient at the bedside, he is awake and alert, but extremely weak. He can wiggle his toes. He can raise his arms up off of the bed, but only with great difficulty. Physical therapy has been working with him. Recent cultures including blood cultures have been negative. Sputum has revealed normal jayna, urine adria. Also during this admission, he has been followed by neurology. Hematology saw him for some abnormal light chains noted, but those were felt to be inflammatory and not related to myeloma. He has been followed throughout his course by critical care. GI is also seeing him. PAST MEDICAL HISTORY 1. History of bladder cancer 2. Hypertension 3. Colon cancer 4. Chronic atrial fibrillation for which she had an ablation about seven years ago. 5. Coronary artery disease 6. Atherosclerotic vascular disease with prior endarterectomy. SOCIAL HISTORY Was prior to this admission, living with his . They have been about 60 years. I spoke to her today. He is two children, two daughters in good health. One lives locally one lives in [place], [place]. ALLERGIES STATINS REVIEW OF SYSTEMS Really is not obtainable, but in general the patient is extremely weak, does not appear to be any significant chronic pain. PHYSICAL EXAMINATION An elderly white male lying in bed with a tracheostomy comfortable, respirations 22-26, afebrile, blood pressure 150/90, saturation 99% on 50% FIO2 on ventilatory support, assist control rate of 14. HEAD, EYES, EARS, NOSE, AND THROAT: Sclerae anicteric. CHEST: Chest is really quite clear. No palpable adenopathy in the neck. CARDIAC: Regular heart rhythm without harsh murmur. ABDOMEN: Obese, but soft. No significant peripheral edema or calf tenderness. No cyanosis of the nail beds. CT scan of the chest yesterday reveals fibro emphysematous changes with interstitial fibrosis of these peripherally. Last blood gas on the ventilator was yesterday on a rate of 14, 45% his pO2 is 103, pH 7.4, pCO2 46. The question on Mr. Hartley is whether or not he should have an open surgical biopsy to further evaluate the infiltrates in his lung which have arisen since this admission. I had a long talk with Dr. Encinas who has followed regularly along with Dr. Giovani Welsh who has been following him in critical care with his colleagues and also with his . It is difficult to really engage the patient in meaningful conversation. Over the course of the last month, these pulmonary infiltrates have actually improved somewhat with his antibiotics and probably corticosteroids. He had, even on the original scans, cystic changes peripherally and I suspect he may have had some underlying lung disease even prior to this recent bypass and subsequent admission with respiratory failure. As I explained to his that would be difficult to prove. There are no previous CAT scans to compare. There has been some clearing of the alveolar infiltrates, but the CT scan is still very abnormal. The patient has received antibiotics, steroids, aerosolized bronchodilators, but has not been able to be weaned. He is now extremely weak as well. I explained to his that I am not enthusiastic about proceeding with an open lung biopsy. I think it is more than likely that some chronic fibrosis with chronic fibro emphysematous changes would be seen and add little to his overall management at this point. It is also significantly risky in terms of morbidity or mortality in light of the severity of his ongoing illness. After thoroughly reviewing this with his , she would not like to pursue an open surgical biopsy. Long-term prognosis given his age, chronic comorbidities and current severely debilitated state is not good. The hope would be that he may be eligible and stable for an LTAC where some additional rehabilitation could be pursued in the hope of at least getting him free of the ventilator. I have reviewed all of these various options with his . Again, she is not in favor proceeding with biopsy. She is very interested in his being transferred to rehab if stable because she seems to be convinced that if he could be more mobile, he would regain his strength and be able to be weaned from the ventilator. That certainly is possible, although he is really very ill and has had a prolonged hospital course. I spoke to Dr. Welsh after this consultation. He will continue to assess him on a daily basis to see if he is eligible for the [facility]. I am available as needed for further suggestions although at the present time, he is really receiving maximal therapy and probably will receive most benefit once stable from physical rehabilitation in an attempt to wean him further from mechanical ventilatory support. His and I had an extensive conversation about all of these issues and she is satisfied with the current plan which is to try to keep things stable enough to plan transfer to a rehab facility. R. MD VALERIA Rodriguez/ALIDA /5:10 PM /7:43 AM
--- NOTE | 2016-10-22 08:53 | HHI.PR ---
Subjective Remarks trach Objective Vital Signs Date Time Temp Pulse Resp B/P (MAP) Pulse Ox O2 Delivery O2 Flow Rate FiO2 10/22/16 07:48 94 50 10/22/16 04:32 97 50 10/22/16 03:00 97 Mechanical Ventilator 50 10/22/16 03:00 50 10/22/16 03:00 98.6 101 30 157/92 (113) 97 10/22/16 03:00 102 10/22/16 01:55 96 50 10/21/16 23:00 50 10/21/16 23:00 98.8 92 31 153/96 (115) 98 10/21/16 23:00 98 Mechanical Ventilator 50 10/21/16 23:00 99 10/21/16 21:00 98.6 94 25 157/97 98 10/21/16 19:00 98.2 88 27 144/86 (105) 98 10/21/16 19:00 98 Mechanical Ventilator 50 10/21/16 19:00 50 10/21/16 19:00 98.2 88 27 144/86 98 10/21/16 19:00 88 10/21/16 17:00 98.9 83 29 152/91 99 10/21/16 16:45 99 50 10/21/16 16:45 83 10/21/16 16:45 50 10/21/16 16:41 98.8 85 29 143/84 98 10/21/16 16:31 98.8 83 24 133/73 (93) 97 10/21/16 13:49 95 60 10/21/16 12:35 99.0 93 27 143/86 (105) 97 10/21/16 12:00 94 10/21/16 12:00 60 10/21/16 12:00 93 60 I/O 10/21/16 10/21/16 10/21/16 10/22/16 10/22/16 10/22/16 07:00 15:00 23:00 07:00 15:00 23:00 Intake Total 1285 ml 1871 ml 1130 ml Output Total 1120 ml 100 ml 980 ml Balance 165 ml 1771 ml 150 ml IV Total 400 ml 100 ml 100 ml Tube Feeding 285 ml 661 ml 430 ml Packed Cells 250 ml Blood Product IV Normal Saline Flush 260 ml Other 600 ml 600 ml 600 ml Output Urine Total 720 ml 830 ml Stool Total 250 ml 100 ml 150 ml Gastric Drainage Total 150 ml Result Diagram: 10/21/16 0334 10/22/16 0610 Objective Remarks more awake alerts commands well moves ble mild left tremor at rest x1 sticks out tongue for me rr inc Assessment and Plan Assessment and Plan imp no new spells esr 80 crp and kappa chains and lamda chains 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 shabbir neg on eliquis 5 bid now b12 shots DONE renal issues i ordered some inflammation labs SOME ABN HERE PLEASE ADDRESS ABN KAPPA PROTEINS i dw med team today I WILL SIGNOFF again his vision change due to oleft occipital region cva he had on admission they will do heme consult for above esr inc and abn proteins 10/07/16 had rue jerks and eeg shows some bilat pled like almost at time sharps i added dil and vimpat to keppra will recheck mri and eeg follow levels 10/08/16 spep abn due to renal dil 8 free dil around 12 mri no new cva on anticoag eeg reportedly looks better this am sz on vimpat and dil looks better will follow 10/13/16 looks well no sz dil 11 free around 16 on vimpat dil dec keppra to 500 bid and will dc few days if doing well last eeg neg 10/15/16 nurse thought still lethargic so i dced dilantin and cont on keppra nd vimpat can change to po when peg starts to work continue eliquis will fu tue or 10/20/16 still some lethargy i dw dr sommers feels correlates with sz med dosing i dec vimpat now to 100 bid and keppra only on 50 bid will see how does on lower dose ow neurowise handing in there and stable check abg and needs on side for decubitus 10/22/16 off vimpat refused yest i would agree with looks better off vimpat alert nixon no sz overnoc stay on low dose keppra for now i am worried about positioning and ducubitus 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
[2016-10-22 08:57] LABS: HEMO FLAGS AUTO DIFF
[2016-10-22 08:59] LABS: BANDS 1 % (0-6); CORRECTED NUCLEATED RBC 1 /100 WBC (0-0); EOSINOPHILS 12 % (0-4); MYELOCYTES 1 % (0-0); NEUTROPHIL # MANUAL DIFF 12.4 TH/MM3 (1.8-7.7); POLYS (SEG NEUTROPHILS) 70 % (16-70); WBC DIFF SAMPLE 100
[2016-10-22 09:00] LABS: PLATELET ESTIMATE SMEAR NORMAL (NORMAL); PLATELET MORPHOLOGY NORMAL (NORMAL); SCAN/DIFF FINAL DIFF MANUAL
--- NOTE | 2016-10-22 09:47 | HHI.CCPN ---
Subjective Remarks/Hospital Course 75 y/o man now about 4 weeks following CABG complicated by CVA. Presented back 08/28 with new onset right arm weakness. Hospital course has been complicated by CKD and fluid overload. We have attempted BiPAP for several hours but he remains in distress and although oxygenation is acceptable work of breathing is excessive. Worrisome increasing metabolic acidosis. 09/17: Gas exchange much improved. BNP 1681, ScVO2 71%. It appears that cardiac output is more than adequate for peripheral needs and the primary pathology is renal failure and fluid overload. If we can manage volume I can probably get him extubated. 09/18: Diffuse crackles. Needs to be diuresed today. Tolerating extubation but at risk for hypoxemic failure again. 09/20 - Re consulted due to worsening hypoxia. Currently on nonrebreather mask. Chest x-ray shows worsening consolidation right lobe creatinine slightly improved over. Family request transfer to [facility] however refused. We'll attempt to decipher status currently unknown. 09/21: Remains on nonrebreather mask. Saturations between 89-97%. Chest x-ray unchanged. Not tachypnea. Not confused. 09/22: Radiographic studies show diffuse interstitial process with skip areas - more indicative of infectious/inflammatory process. Sats 85% with labored pattern. Required intubation for deteriorating respiratory status. 09/23: Gas exchange improving. Pulmonary infiltrates remain very concerning - if most recent sputum is benign I would not be opposed to steroids. 09/24: Extubated today. On 3 L nasal cannula. Passed swallow evaluation. Appropriate interactive status post extubation. 09/29: Critical care reconsult requested by Dr. Meza for respiratory failure. Patient reportedly was on BiPAP this morning. He was given additional diuretic earlier as he was short of breath. With this he seems to have improved somewhat and has been on a nonrebreather facemask for more than a few hours. He states that he is breathing much better. Patient being adamant about not using BiPAP. I had a detailed conversation about the importance of using BiPAP especially at night in view of his history of sleep apnea. Patient did not appear to be in acute distress though he was requiring a nonrebreather facemask at the time of my evaluation. No urgent need for BiPAP or intubation at this time. In fact patient is stating that he is breathing much better than this morning. 09/30: Remains on nonrebreather facemask. Refused BiPAP at night. States that he is breathing better today than yesterday. 10/01: 02 30 L/m 100% FiO2. O2 sats borderline. Episodes of confusion. When I evaluated the patient he was sitting up in bed and was able to converse. Not using accessory muscles of respirations currently. 10/02: The patient is alert and oriented currently has been weaned down to high flow nasal cannula with an FiO2 of 65%, maintaining O2 saturation to 95%. Patient is appropriately conversant no episodes of confusion noted. 10/03: Yesterday, the patient received 2 units of packed red blood cells with Furosemide dosing in between transfusion of units, with diuresis of approximately 2900 cc. Last night, the patient was noted to have respiratory decompensation, continued refusal to utilize BiPAP during the night. FiO2 requirements increased to 100% this a.m., on high flow nasal cannula, with noted accessory muscle use and inability to speak in complete sentences secondary to dyspnea. The patient received additional dose of Lasix this a.m. , chest x-ray appeared to be worsened this a.m. .Patient subsequently became hypoxic requiring emergent intubation this a.m.., O2 sat saturation 80s on 100 % FiO2. 10/04: Intubated yesterday due to general and hypoxia. Diuresed with 80 mg furosemide 1. Tmax 99.8. Currently 97.8. Tube feeds initiated. No bowel movement. 10/05: Afebrile. Subcutaneous air in neck bilaterally on chest x-ray today. No obvious pneumothorax. No pneumothorax on chest x-ray yesterday post central line placement. Tolerating tube feeding. No bowel movement. 10/06: Currently resting in bed. Subcutaneous air neck much improved. X-ray improved. FiO2 down to 40%. Tolerating tube feeding. One bowel movement. 10/07: Afebrile. Currently on propofol drip at 40 mg/kg per minute. X-ray has improved. Currently not tolerating tube feeds. 2 bowel movements documented. Sedation vacation today ordered. 10/08: Afebrile. Saturations 95% on FiO2 50%. MRI brain showed no acute findings last night. EEG repeated for today. PLEDs on previous EEG. Vimpat along with fosphenytoin added per neurology. Arousable on the ventilator. Tube feeds to be resumed today. Discussed with at length yesterday 10/09: MAXIMUM TEMPERATURE 99.5. Currently 99.3. Tube feeds currently at 20 cc an hour. Minimal residuals. Arousable and intermittently follows commands mostly with right upper extremity. 10/10: Febrile. Tube feeds currently at 25 cc an hour. Minimal residuals. Positive BM. Not arousable this AM. EEG still reveals underlying sharp spikes. Vimpat increased yesterday. 10/11: Remains intubated tachypneic on CPAP 11/11, Lethargic not consistently following commands. After being placed on 06/11 patient is more tachypneic, breathing in mid 30s 10/12: Remains intubated off sedation. Very lethargic, copious oral secretions and moderate ET tube secretions. We'll discuss with general surgery regarding tracheostomy today. 10/11/16 did not show seizure activity but moderate encephalopathy 10/13: Remains off sedation quite lethargic. We except to sternal rub. We believe follows commands on right upper and bilateral lower extremities. Low- grade fever. Tracheostomy planned for afternoon 10/14: s/p trach yesterday. Remains lethargic, but follows commands on the right side. Increase in white count noted. Creatinine increasing now 1.8. Will discontinue IV Lasix and give IV hydration for 24 hours. Attempt T piece 2-4 hours 10/15: s/p trach yesterday. Tolerated TP 2 hours. Remains lethargic, weakly follows commands. PEG today. Cr improved from 1.8 to 1.5 with gentle hydration 10/16: no changes. Cr slowly improving. 10/17: no clinical improvements. awaiting placement. weather concerns prevent further movement towards placement in LTAC. 10/18: no changes. ready for LTAC. 10/19: Unable to wean. Increasing oxygen requirements overnight. PEEP up to 10, FiO2 55%. Chest x-ray from yesterday shows increasing alveolar and interstitial infiltrates. Increase PO Lasix to 40 BID and additional IV Lasix 20 mg x1. Sputum culture from yesterday pending 10/20: Unable to renal to ventilator FiO2 with his from 45-50%. PEEP at 8. Chest x-ray shows worsening bilateral alveolar and interstitial infiltrates right worse than left. Discussed with Dr. Lee, will re consult CTS for consideration of lung biopsy. CT chest today. Subjective: 10/21: No clinical changes overnight patient appears slightly more awake. Dr. Jeffries decreased Vimpat to 100 bid and Keppra 500 bid 10/20. Patient's requested pulmonology second opinion. Dr. Cevallos consulted. CXR today pending 10/22 Patient remains on ventilator via trach. Afebrile. Objective Vital Signs Date Time Temp Pulse Resp B/P (MAP) Pulse Ox O2 Delivery O2 Flow Rate FiO2 10/22/16 07:48 94 50 10/22/16 03:00 Mechanical Ventilator 10/22/16 03:00 98.6 101 30 157/92 (113) 10/20/16 03:00 Intake and Output 10/22/16 10/22/16 10/23/16 08:00 16:00 00:00 Intake Total 1130 ml Output Total 980 ml Balance 150 ml Result Diagram: 10/22/16 0610 10/22/16 0610 Other Results Last Impressions Chest X-Ray 10/21/16 0000 Signed Impressions: Service Date/Time: October 07:51 - CONCLUSION: 1. Stable diffuse pulmonary infiltrates. 2. Stable cardiomegaly. Jeffrey Mohan MD Chest CT 10/20/16 0000 Signed Impressions: Service Date/Time: Thursday, October 20, 2016 13:29 - CONCLUSION: Small bilateral pleural effusions progressed in the interval. Diffuse interstitial and alveolar opacities persist in both lungs with progression to air partial air bronchograms in the lower lobes. Victor Hugo Kiser MD FACR Brain MRI 10/07/16 0000 Signed Impressions: Service Date/Time: September 21:45 - CONCLUSION: 1. Residual small areas of infarction seen bilaterally. There are fewer areas of signal abnormality seen on the diffusion-weighted images on the current exam. New areas of infarction are not present. 2. Areas of demyelination throughout the cerebral and pontine white matter likely from small vessel ischemic change. 3. Fluid in the mastoid air cells. Jarad Cat MD Abdomen X-Ray 10/07/16 0000 Signed Impressions: Service Date/Time: September 08:32 - CONCLUSION: Unremarkable bowel gas pattern. Sanya Cavazos MD Neck CT 10/05/16 0000 Signed Impressions: Service Date/Time: Wednesday, October 05, 2016 10:41 - CONCLUSION: Extensive subcutaneous emphysema. Jarad De Jesus MD Head Magnetic Resonance Angiography 09/10/16 1028 Signed Impressions: Service Date/Time: Saturday, September 10, 2016 10:57 - CONCLUSION: 1. Unremarkable MRA examination without evidence for large vessel occlusion, aneurysm, or vascular malformation. Richardson Haney MD Carotid Artery Ultrasound 09/09/16 1028 Signed Impressions: Service Date/Time: September 10:43 - CONCLUSION: 1. Moderate visible plaque without hemodynamically significant stenosis identified. No significant change from August 25. Amado Crain MD Renal Ultrasound 09/09/16 0000 Signed Impressions: Service Date/Time: September 15:41 - CONCLUSION: 1. Cortical atrophy with small bilateral renal cysts. No hydronephrosis. Amado Crain MD Head CT 09/08/16 2251 Signed Impressions: Service Date/Time: Thursday, September 08, 2016 23:41 - CONCLUSION: Stable noncontrast CT with no evidence of hemorrhage or acute infarction. Atrophy and chronic small vessel splenic changes remain. Sanya Cavazos MD Imaging Last Impressions Chest X-Ray 10/10/16 0600 Signed Impressions: Service Date/Time: Monday, October 10, 2016 04:25 - CONCLUSION: 1. Support apparatus in satisfactory position. Patchy airspace and interstitial changes similar to October 09. Amado Crain MD Brain MRI 10/07/16 0000 Signed Impressions: Service Date/Time: September 21:45 - CONCLUSION: 1. Residual small areas of infarction seen bilaterally. There are fewer areas of signal abnormality seen on the diffusion-weighted images on the current exam. New areas of infarction are not present. 2. Areas of demyelination throughout the cerebral and pontine white matter likely from small vessel ischemic change. 3. Fluid in the mastoid air cells. Jarad Cat MD Abdomen X-Ray 10/07/16 0000 Signed Impressions: Service Date/Time: September 08:32 - CONCLUSION: Unremarkable bowel gas pattern. Sanya Cavazos MD Neck CT 10/05/16 0000 Signed Impressions: Service Date/Time: Wednesday, October 05, 2016 10:41 - CONCLUSION: Extensive subcutaneous emphysema. Jarad De Jesus MD Chest CT 10/05/16 0000 Signed Impressions: Service Date/Time: Wednesday, October 05, 2016 10:43 - CONCLUSION: Prior median sternotomy cardiac surgery atherosclerotic cardiovascular disease with left ventricular cardiomegaly and evidence of interstitial alveolar edema in both lungs consistent with CHF. Support tubes in place with subcutaneous emphysema in the soft tissues of neck bilaterally and supraclavicular. There is no evidence of pneumothorax. Lele Escudero MD Head Magnetic Resonance Angiography 09/10/16 1028 Signed Impressions: Service Date/Time: Saturday, September 10, 2016 10:57 - CONCLUSION: 1. Unremarkable MRA examination without evidence for large vessel occlusion, aneurysm, or vascular malformation. Richardson Haney MD Carotid Artery Ultrasound 09/09/16 1028 Signed Impressions: Service Date/Time: September 10:43 - CONCLUSION: 1. Moderate visible plaque without hemodynamically significant stenosis identified. No significant change from August 25. Amado Crain MD Renal Ultrasound 09/09/16 0000 Signed Impressions: Service Date/Time: September 15:41 - CONCLUSION: 1. Cortical atrophy with small bilateral renal cysts. No hydronephrosis. Amado Crain MD Head CT 09/08/16 2251 Signed Impressions: Service Date/Time: Thursday, September 08, 2016 23:41 - CONCLUSION: Stable noncontrast CT with no evidence of hemorrhage or acute infarction. Atrophy and chronic small vessel splenic changes remain. Sanya Cavazos MD Objective Remarks GENERAL: 75-year-old male currently on vent via trach SKIN: Warm and dry. Well perfused HEAD: Atraumatic. Normocephalic. ENT: Oral cavity is dry. NECK: Trachea midline. Trach site clean, dry CARDIOVASCULAR: IRR. S1, S2 no S4. Without murmur RESPIRATORY: Air entry decreased bilaterally at bases, bilateral coarse crackles and rhonchi GASTROINTESTINAL: Abdomen soft, non-tender, nondistended. No guarding. BS active. MUSCULOSKELETAL: Extremities with trace to 1+ B/L lower extremity edema. No obvious deformities. NEUROLOGICAL: Opens eyes to command. Follows commands very weakly x4. LUE weaker than other ext Procedures 10/03- intubation Date of Insertion: Oct 03, 2016 Date of Insertion: Oct 04, 2016 Line: Central Venous Catheter Side: Right Location: Internal, Jugular A/P Assessment and Plan Neuro/Psych: Left occipital, bilateral frontal parietal cerebellar CVA subacute Seizure Encephalopathy Chronic headaches Chronic benzodiazepine use, chronic oxycodone use MRI 09/10 brain revealed left occipital, bilateral frontal parietal and cerebellar CVA likely ALFIE/ASL INTERPRETER distribution. MRI brain 10/07 - Residual frontal/parietal and occipital junction CVA. Significant demyelination Followed by Dr. Jeffries/neurology. EEG 10/07 bilateral PLEDs with episodic sharp activity, EEG 10/10: Ongoing seizure activity with lightening sedation. Repeat EEG 10/11/16-no seizure activity, moderate encephalopathy Neuro- Dr. Jeffries. On Keppra 500 bid CV: Coronary disease status post CABG ASCVD Carotid stenosis TAAA Hypertension Dyslipidemia History atrial fibrillation status post ablation 2011 Followed by cardiology.Continue PO Apixaban 5 mg twice a day per cardiology and aspirin 81 mg by mouth daily. Off amiodarone for suspected pulmonary toxicity. Off atorvastatin 40 mg daily/ home medication for dyslipidemia (reported ? statin induced myopathy) Echocardiogram revealed EF 70%. OHS septal motion./Paradoxical, CARA 50-60 mmHg Currently labetalol 100 mg 3 times a day for hypertension. 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 Ct chest 10/20 worsening interstitial and alveolar infiltrates CTS Dr. Argueta reconsulted for lung biopsy. Dr. Cevallos and Dr. Abraham spoke to patient's yesterday and per their discussion patient's is hold off on lung biopsy. Not tolerating CPAP, PEEP up to 8, FiO2 45-50%. s/p Trach 10/[address] Souza. Off amiodarone for suspected pulmonary toxicity. Ventilator bundle. Was unable to extubate due to severe neuromuscular weakness and encephalopathy and CVA. 3rd intubation, Last 10/03 Albuterol/ipratropium every 6 hours with albuterol aerosols as indicated Methylprednisolone currently on 30 mg daily- ( Prednisone 40mg q day taper over' s several weeks recommended by nephrology for possible pantoprazole induced interstitial nephritis) Repeat sputum culture 10/18 neg to date GI: On Suplena goal 55 cc an hour (per dietary recommendations). On sucralfate 1 g by mouth 4 times daily for GI prophylaxis Docusate sodium 100 mg twice a day, senna liquid 8.6 mg twice a day and polyethylene glycol 3350 17 g twice daily for bowel regimen Metoclopramide 5 mill grams IV every 8 hours History of hydroureter Renal ultrasound revealed no hydronephrosis continue Franco. Monitor renal function, electrolytes replacement per protocol. Cr: 1.63 today from 1.53 d/c Free water Endo: Sliding scale insulin with NovoLog with Accu-Cheks every 6 hours/low regimen Renal: Acute on chronic kidney injury Creat 1.5 stable. Change Lasix to [address] 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 Heme: History of colon cancer status post partial colectomy History of bladder cancer Normocytic anemia Leukocytosis Monitor CBC daily. Noted elevated lambda and kappa Chains/ESR likely secondary underlying acute kidney injury. Evaluated by Dr. Mccollum/hematology ID: Likely hospital-acquired pneumonia Sepsis Meropenem//linezolid 09/27 through 10/07 Currently observe off ABX Pertinent cultures 10/08: Urine cx: C. Albicans 10/18 Sputum culture neg 10/03-repeat blood, urine Legionella and pneumococcal antigens and sputum cultures no growth 10/03-influenza negative 09/28 - blood cultures 2 - no growth 09/22 - sputum - no growth 09/16 - blood cultures 2 - no growth Recheck urine 10/09- Betty- changed Franco Recheck blood cultures 2 and sputum 10/10. Repeat sputum culture 10/13/16 neg to date Off all antibiotics per infectious disease MSK: PT evaluate and treat Prophylaxis - GI -sucralfate - DVT - SCD/apixaban-holding for possible lung biopsy Access - Right subclavian CVL placed 09/16 - 10/04 - Right IJ CVL 10/04-10/14 PIV Patient is for possible discharge to [facility] once cleared by all consultants. Level 3 Anisa Mathias MD Oct 22, 2016 09:47
[2016-10-22] MEDS: SENNOSIDES SYRUP 8.8 MG/5 ML CUP NG SCH (10:10)
[2016-10-22] MEDS: POLYETHYLENE GLYCOL 17 GM PKG NG SCH (10:10)
[2016-10-22] MEDS: DOCUSATE SODIUM 100 MG/10 ML UDC NG SCH (10:10)
[2016-10-22] MEDS: LABETALOL HCL 100 MG TAB PO SCH ×3 (10:11→18:35)
[2016-10-22] MEDS: APIXABAN 5 MG TABLET PO SCH (10:11)
[2016-10-22] MEDS: ASPIRIN 81 MG CHEW TAB PEG SCH (10:11)
[2016-10-22] MEDS: CALCIUM ACETATE 667 MG CAP PO SCH ×3 (10:11→18:35)
[2016-10-22] MEDS: FAMOTIDINE 20 MG TAB NG SCH (10:12)
[2016-10-22] MEDS: methylPREDNISolone SOD SUCC 40 MG/1 ML VIAL IV PUSH SCH (10:15)
[2016-10-22] MEDS ORDERED: levETIRAcetam 500 MG/5 ML UDC PEG SCH (11:00)
[2016-10-22] MEDS ORDERED: FUROSEMIDE 40 MG/4 ML VIAL IV ONE (11:45)
--- NOTE | 2016-10-22 12:49 | HHI.IDPN ---
Subjective Subjective Remarks ID Xcover for Dr Darren Vergara.diff negative fever resolved remains on 50% FiO2 No bx Antibiotics none Past Medical History PAST MEDICAL HISTORY 1. Coronary artery disease. 2. History of atrial fibrillation. 3. History of aortic aneurysm. 4. Bladder cancer treated with cystectomy. 5. Coronary artery bypass graft surgery. 6. Colon cancer history. 7. Peripheral vascular disease. 8. Hypertension. 9. History of transurethral resection of bladder tumor. 10.History of abdominal aortic aneurysm repair. Allergies: Coded Allergies: atorvastatin (Verified Allergy, Severe, back pain and chest pain, 09/21/16) PATIENT REPORTS HE CAN NOT TAKE ANY STATINS PERIOD. HE LOSES USE OF HIS LEGS pantoprazole (Verified Allergy, Severe, INTERSTITIAL NEPHRITIS, 09/25/16) pravastatin (Verified Allergy, Severe, 09/21/16) PATIENT REPORTS HE CAN NOT TAKE ANY STATINS PERIOD. HE LOSES USE OF HIS LEGS simvastatin (Verified Allergy, Severe, body aches, 09/21/16) PATIENT REPORTS HE CAN NOT TAKE ANY STATINS PERIOD. HE LOSES USE OF HIS LEGS Objective . Vital Signs Date Time Temp Pulse Resp B/P (MAP) Pulse Ox O2 Delivery O2 Flow Rate FiO2 10/22/16 12:20 93 50 10/22/16 12:13 98.9 105 33 137/78 (97) 92 10/22/16 12:13 94 Mechanical Ventilator 50 10/22/16 12:02 50 10/22/16 09:00 99.4 116 34 159/97 (117) 94 10/22/16 09:00 94 Mechanical Ventilator 50 10/22/16 08:30 50 10/22/16 07:48 94 50 10/22/16 04:32 97 50 10/22/16 03:00 97 Mechanical Ventilator 50 10/22/16 03:00 50 10/22/16 03:00 98.6 101 30 157/92 (113) 97 10/22/16 03:00 102 10/22/16 01:55 96 50 10/21/16 23:00 50 10/21/16 23:00 98.8 92 31 153/96 (115) 98 10/21/16 23:00 98 Mechanical Ventilator 50 10/21/16 23:00 99 10/21/16 21:00 98.6 94 25 157/97 98 10/21/16 19:00 98.2 88 27 144/86 (105) 98 10/21/16 19:00 98 Mechanical Ventilator 50 10/21/16 19:00 50 10/21/16 19:00 98.2 88 27 144/86 98 10/21/16 19:00 88 10/21/16 17:00 98.9 83 29 152/91 99 10/21/16 16:45 99 50 10/21/16 16:45 83 10/21/16 16:45 50 10/21/16 16:41 98.8 85 29 143/84 98 10/21/16 16:31 98.8 83 24 133/73 (93) 97 10/21/16 13:49 95 60 . Laboratory Tests Test 10/21/16 03:34 10/22/16 06:10 White Blood Count 9.7 TH/MM3 17.2 TH/MM3 Red Blood Count 2.42 MIL/MM3 2.91 MIL/MM3 Hemoglobin 7.0 GM/DL 8.6 GM/DL Hematocrit 22.0 % 26.4 % Mean Corpuscular Volume 91.1 FL 90.7 FL Mean Corpuscular Hemoglobin 29.0 PG 29.6 PG Mean Corpuscular Hemoglobin Concent 31.9 % 32.7 % Red Cell Distribution Width 16.6 % 15.9 % Platelet Count 220 TH/MM3 295 TH/MM3 Mean Platelet Volume 8.4 FL 9.1 FL Neutrophils (%) (Auto) 71.4 % Lymphocytes (%) (Auto) 12.0 % Monocytes (%) (Auto) 7.3 % Eosinophils (%) (Auto) 8.6 % Basophils (%) (Auto) 0.7 % Neutrophils # (Auto) 12.3 TH/MM3 Lymphocytes # (Auto) 2.1 TH/MM3 Monocytes # (Auto) 1.3 TH/MM3 Eosinophils # (Auto) 1.5 TH/MM3 Basophils # (Auto) 0.1 TH/MM3 CBC Comment AUTO DIFF Differential Total Cells Counted 100 Neutrophils % (Manual) 70 % Band Neutrophils % 1 % Lymphocytes % 10 % Monocytes % 6 % Eosinophils % 12 % Neutrophils # (Manual) 12.4 TH/MM3 Myelocytes 1 % Nucleated Red Blood Cells 1 /100 WBC Differential Comment FINAL DIFF MANUAL Platelet Estimate NORMAL Platelet Morphology Comment NORMAL Laboratory Tests Test 10/21/16 03:34 10/22/16 06:10 Blood Urea Nitrogen 42 MG/DL 40 MG/DL Creatinine 1.53 MG/DL 1.61 MG/DL Random Glucose 115 MG/DL 132 MG/DL Calcium Level 8.4 MG/DL 8.5 MG/DL Sodium Level 134 MEQ/L 131 MEQ/L Potassium Level 4.2 MEQ/L 4.0 MEQ/L Chloride Level 98 MEQ/L 96 MEQ/L Carbon Dioxide Level 27.8 MEQ/L 26.3 MEQ/L Anion Gap 8 MEQ/L 9 MEQ/L Estimat Glomerular Filtration Rate 44 ML/MIN 42 ML/MIN B-Type Natriuretic Peptide 404 PG/ML Total Protein 6.4 GM/DL Albumin 1.8 GM/DL Alkaline Phosphatase 82 U/L Aspartate Amino Transf (AST/SGOT) 41 U/L Alanine Aminotransferase (ALT/SGPT) 45 U/L Total Bilirubin 0.4 MG/DL Microbiology Date/Time Source Procedure Growth Status 10/19/16 15:35 Blood Peripheral Aerobic Blood Culture - Preliminary NO GROWTH IN 3 DAYS Resulted 10/19/16 15:35 Blood Peripheral Anaerobic Blood Culture - Preliminary NO GROWTH IN 3 DAYS Resulted 10/19/16 15:29 Blood Peripheral Aerobic Blood Culture - Preliminary NO GROWTH IN 3 DAYS Resulted 10/19/16 15:29 Blood Peripheral Anaerobic Blood Culture - Preliminary NO GROWTH IN 3 DAYS Resulted Imaging Last Impressions Chest X-Ray 10/21/16 0000 Signed Impressions: Service Date/Time: October 07:51 - CONCLUSION: 1. Stable diffuse pulmonary infiltrates. 2. Stable cardiomegaly. Jeffrey Mohan MD Chest CT 10/20/16 0000 Signed Impressions: Service Date/Time: Thursday, October 20, 2016 13:29 - CONCLUSION: Small bilateral pleural effusions progressed in the interval. Diffuse interstitial and alveolar opacities persist in both lungs with progression to air partial air bronchograms in the lower lobes. Victor Hugo Kiser MD FACR Brain MRI 10/07/16 0000 Signed Impressions: Service Date/Time: September 21:45 - CONCLUSION: 1. Residual small areas of infarction seen bilaterally. There are fewer areas of signal abnormality seen on the diffusion-weighted images on the current exam. New areas of infarction are not present. 2. Areas of demyelination throughout the cerebral and pontine white matter likely from small vessel ischemic change. 3. Fluid in the mastoid air cells. Jarad Cat MD Abdomen X-Ray 10/07/16 0000 Signed Impressions: Service Date/Time: September 08:32 - CONCLUSION: Unremarkable bowel gas pattern. Sanya Cavazos MD Neck CT 10/05/16 0000 Signed Impressions: Service Date/Time: Wednesday, October 05, 2016 10:41 - CONCLUSION: Extensive subcutaneous emphysema. Jarad De Jesus MD Head Magnetic Resonance Angiography 09/10/16 1028 Signed Impressions: Service Date/Time: Saturday, September 10, 2016 10:57 - CONCLUSION: 1. Unremarkable MRA examination without evidence for large vessel occlusion, aneurysm, or vascular malformation. Richardson Haney MD Carotid Artery Ultrasound 09/09/16 1028 Signed Impressions: Service Date/Time: September 10:43 - CONCLUSION: 1. Moderate visible plaque without hemodynamically significant stenosis identified. No significant change from August 25. Amado Crain MD Renal Ultrasound 09/09/16 0000 Signed Impressions: Service Date/Time: September 15:41 - CONCLUSION: 1. Cortical atrophy with small bilateral renal cysts. No hydronephrosis. Amado Crain MD Head CT 09/08/16 2251 Signed Impressions: Service Date/Time: Thursday, September 08, 2016 23:41 - CONCLUSION: Stable noncontrast CT with no evidence of hemorrhage or acute infarction. Atrophy and chronic small vessel splenic changes remain. Sanya Cavazos MD Physical Exam CONSTITUTIONAL/GENERAL: This is an adequately nourished patient, in no apparent distress. Intubated, on vent TUBES/LINES/DRAINS: SKIN: No jaundice, rashes, or lesions. ENT: Orally intubated =CARDIOVASCULAR: Regular rate and rhythm without murmurs, gallops, or rubs. No JVD. Peripheral pulses symmetric. RESPIRATORY/CHEST: Symmetric, unlabored respirations. Scattered rhonchi to auscultation. . GASTROINTESTINAL: Abdomen soft, non-tender, nondistended. No hepato-splenomegaly , or palpable masses. No guarding. Bowel sounds present. Dignishild in place, bag with large amount o f brown very liquid stool GENITOURINARY: Without palpable bladder distension. choi in place wityh cleatr yellow urine MUSCULOSKELETAL: Extremities without clubbing, cyanosis, or edema. NEUROLOGICAL:awake ,alert, communicates PSYCHIATRIC: appears calm Assessment & Plan Remarks 1. Acute respiratory failure. 3rd intubation. - scheduled for trach - failure to wean 2. Bilateral lung infiltrates of unknpwn ethiology - negative cultures. Pulmonary thinks amiodarone toxicity. Per RN pt's declined open lung bx 3. Leukocytosis. WBC much worse today ? with stable clinical picture could be 2/2 sterroids 4. Acute kidney disease. stable to slightlyy worse creatininen Persistent low grade fever, now intermittent Candiduria with indwelling choi: doubt clin significance Sz, resolved Abx associated diarrhea C.diff negative RECOMMENDATIONS no abx at this point WIll sign off ; plaease reconsult if further issues occur Ok to transfer to rehab from ID standpoint dw @ b/s in detailes, she is agreable on the plan Christina Rangel RN, MD Oct 22, 2016 12:49
--- NOTE | 2016-10-22 13:21 | PD.WCN.NOT ---
Wound Consult Description: Received reconsult for pressure ulcer/ decub from Doctor Nesha Communicated with: NOEMI Bhagat [facility] and Doctor Robin for orders Recommendation: Please cleanse wound to sacrococcygeal area with normal saline only and pat dry. Apply amrit thick coverage of Santyl ointment to wound bed. Cover with ABD pad, secured with tape or cover with bordered gauze dressing. Change dressing daily. Please apply skin prep to periwound or before applying tape to skin or adhesives to skin. Additional Information: Patient seen on for follow up of previously noted DTI opening to partial thickness wound on sacrococcygeal, and bilateral buttock areas. Positioned patient to R side with the assistance of Leola FRANKLIN [facility] to reveal unstageable pressure injury to sacrococcygeal area. Wound measures 8 cm x 4cm x slough. Wound appears shallow.Wound bed presents with ~40 % yellow loosely adherent slough and ~60% red non granulation tissue. Drainage is minimal and sero-sanguinous without odor. Periwound incontinence associated dermatitis has improved from previous assessment. Digishield is in place. Cleansed wound with normal saline and left open to air. NOEMI Bhagat to apply dressings when supplies obtained and Santyl ointment is ordered.Wound care will continue to follow patient weekly Radha Velasco [facility] Oct 22, 2016 13:21
--- NOTE | 2016-10-22 13:37 | PD.CARD.PN ---
Subjective Subjective Remarks Late entry, patient seen and evaluated at 0900 this morning. Patient tachypneic this morning. FIO2 increased. Received blood transfusion yesterday. No addition lasix provided with transfusion. Patient is more awake and following commands. No plans for lung biopsy at this time. (Elin Kwok) Objective Medications Current Medications Medications (Trade) Dose Ordered Sig/Awilda Route Start Time Stop Time Status Last Admin (NS Flush) 2 ml UNSCH PRN IV FLUSH 09/09/16 00:45 10/17/16 05:44 (NS Flush) 2 ml BID IV FLUSH 09/09/16 09:00 10/22/16 09:00 (Narcan Inj) 0.4 mg UNSCH PRN IV 09/09/16 00:45 (Pill Splitter) 1 ea UNSCH PRN OTHER 09/09/16 14:00 (Eliquis) 5 mg BID PO 09/10/16 09:00 Future hold 10/22/16 10:11 (Catapres) 0.1 mg Q6H PRN PO 09/11/16 14:30 09/19/16 23:02 (Lopressor Inj) 5 mg Q2HR PRN IV PUSH 09/16/16 14:00 10/10/16 00:40 (Apresoline Inj) 10 mg Q6HR PRN IV PUSH 09/16/16 12:45 10/22/16 05:35 (Racepinephrine 2.25% Neb) 0.5 ml Q1HR NEB PRN NEB 09/17/16 17:15 09/17/16 18:02 (Dulcolax Supp) 10 mg DAILY PRN RECTAL 09/19/16 13:30 (Albuterol Neb) 2.5 mg Q2HR NEB PRN NEB 09/21/16 12:00 10/21/16 21:21 (Phoslo) 667 mg TID PO 09/21/16 18:00 10/22/16 10:11 (Peridex 0.12% Liq) 15 ml BID@08,20 MT 09/22/16 20:00 10/21/16 09:25 (Trandate) 100 mg TID PO 09/30/16 13:00 10/22/16 10:11 (NovoLOG SUPPLEMENTAL SCALE) 1 Q6HR SQ 10/01/16 13:15 10/20/16 12:21 (D50w (Vial) Inj) 50 ml UNSCH PRN IV PUSH 10/01/16 13:15 (Glucagon Inj) 1 mg UNSCH PRN OTHER 10/01/16 13:15 (Tears Naturale Opth Soln) 1 drop Q8HR EACH EYE 10/03/16 14:00 10/22/16 06:42 (Colace Liq) 100 mg Q12HR NG 10/04/16 09:00 10/22/16 10:10 (Senna Liq) 8.8 mg BID NG 10/04/16 09:00 10/22/16 10:10 (NS Flush) DAILY IVF 10/04/16 12:45 10/20/16 08:34 (NS Flush) UNSCH PRN IVF 10/04/16 12:45 (Miralax) 17 gm BID NG 10/05/16 09:00 10/22/16 10:10 (Reglan Inj) 5 mg Q8HR IV PUSH 10/07/16 08:00 10/22/16 06:42 (Trandate Inj) 10 mg Q1HR PRN IV PUSH 10/07/16 13:00 10/22/16 04:24 (Nitroglycerin 2% Oint) 2 inch Q6HR PRN TOPICAL 10/07/16 13:00 (Carafate Liq) 1 gm Q6HR NG 10/08/16 12:00 10/22/16 06:42 (SoluMEDROL INJ) 30 mg DAILY IV PUSH 10/12/16 09:00 10/22/16 10:15 (Pepcid) 20 mg BID NG 10/15/16 13:00 10/22/16 10:12 (Aspirin Chew) 81 mg DAILY PEG 10/16/16 12:00 10/22/16 10:11 (NS Flush) 2 ml BID IV FLUSH 10/21/16 09:00 10/22/16 10:15 (NS Flush) 2 ml UNSCH PRN IV FLUSH 10/20/16 11:15 Cefazolin Sodium 500 mg/Sodium Chloride 505 ml @ 0 mls/hr SHIP FITTER IRRIGATION 10/20/16 14:00 10/27/16 13:59 Cefazolin Sodium/ Dextrose 50 ml @ 150 mls/hr SHIP FITTER IV 10/20/16 13:00 10/27/16 12:59 (Hibiclens 4% Top Soln) 1 applic SHIP FITTER TOPICAL 10/20/16 13:00 10/27/16 12:59 (Keppra Liq) 500 mg Q12HR PEG 10/22/16 11:00 (Lasix) 20 mg DAILY NG 10/23/16 09:00 Vital Signs / I&O Vital Signs Date Time Temp Pulse Resp B/P (MAP) Pulse Ox O2 Delivery O2 Flow Rate FiO2 10/22/16 12:20 93 50 10/22/16 12:13 98.9 105 33 137/78 (97) 92 10/22/16 12:13 94 Mechanical Ventilator 50 10/22/16 12:02 50 10/22/16 09:00 99.4 116 34 159/97 (117) 94 10/22/16 09:00 94 Mechanical Ventilator 50 10/22/16 08:30 50 10/22/16 07:48 94 50 10/22/16 04:32 97 50 10/22/16 03:00 97 Mechanical Ventilator 50 10/22/16 03:00 50 10/22/16 03:00 98.6 101 30 157/92 (113) 97 10/22/16 03:00 102 10/22/16 01:55 96 50 10/21/16 23:00 50 10/21/16 23:00 98.8 92 31 153/96 (115) 98 10/21/16 23:00 98 Mechanical Ventilator 50 10/21/16 23:00 99 10/21/16 21:00 98.6 94 25 157/97 98 10/21/16 19:00 98.2 88 27 144/86 (105) 98 10/21/16 19:00 98 Mechanical Ventilator 50 10/21/16 19:00 50 10/21/16 19:00 98.2 88 27 144/86 98 10/21/16 19:00 88 10/21/16 17:00 98.9 83 29 152/91 99 10/21/16 16:45 99 50 10/21/16 16:45 83 10/21/16 16:45 50 10/21/16 16:41 98.8 85 29 143/84 98 10/21/16 16:31 98.8 83 24 133/73 (93) 97 10/21/16 13:49 95 60 I/O 10/21/16 10/21/16 10/21/16 10/22/16 10/22/16 10/22/16 07:00 15:00 23:00 07:00 15:00 23:00 Intake Total 1285 ml 1871 ml 1130 ml Output Total 1120 ml 100 ml 980 ml Balance 165 ml 1771 ml 150 ml IV Total 400 ml 100 ml 100 ml Tube Feeding 285 ml 661 ml 430 ml Packed Cells 250 ml Blood Product IV Normal Saline Flush 260 ml Other 600 ml 600 ml 600 ml Output Urine Total 720 ml 830 ml Stool Total 250 ml 100 ml 150 ml Gastric Drainage Total 150 ml Physical Exam GENERAL: Elderly male SKIN: Warm and dry. HEAD: Normocephalic. EYES: No scleral icterus. No injection or drainage. NECK: Supple, trachea midline. Tracheostomy CARDIOVASCULAR: reg rhythm, tachycardia RESPIRATORY: Equal, trach, tachypnea GASTROINTESTINAL: Abdomen soft,nondistended. PEG MUSCULOSKELETAL: No cyanosis, pedal edema BACK: Nontender without obvious deformity. Laboratory Laboratory Tests Test 10/21/16 19:13 10/22/16 06:10 Stool C. difficile Toxin (PCR) NEGATIVE Stl C. difficile Toxin Epiderm 027 PRESUMPTIVE NEGATIVE White Blood Count 17.2 TH/MM3 Red Blood Count 2.91 MIL/MM3 Hemoglobin 8.6 GM/DL Hematocrit 26.4 % Mean Corpuscular Volume 90.7 FL Mean Corpuscular Hemoglobin 29.6 PG Mean Corpuscular Hemoglobin Concent 32.7 % Red Cell Distribution Width 15.9 % Platelet Count 295 TH/MM3 Mean Platelet Volume 9.1 FL Neutrophils (%) (Auto) 71.4 % Lymphocytes (%) (Auto) 12.0 % Monocytes (%) (Auto) 7.3 % Eosinophils (%) (Auto) 8.6 % Basophils (%) (Auto) 0.7 % Neutrophils # (Auto) 12.3 TH/MM3 Lymphocytes # (Auto) 2.1 TH/MM3 Monocytes # (Auto) 1.3 TH/MM3 Eosinophils # (Auto) 1.5 TH/MM3 Basophils # (Auto) 0.1 TH/MM3 CBC Comment AUTO DIFF Differential Total Cells Counted 100 Neutrophils % (Manual) 70 % Band Neutrophils % 1 % Lymphocytes % 10 % Monocytes % 6 % Eosinophils % 12 % Neutrophils # (Manual) 12.4 TH/MM3 Myelocytes 1 % Nucleated Red Blood Cells 1 /100 WBC Differential Comment FINAL DIFF MANUAL Platelet Estimate NORMAL Platelet Morphology Comment NORMAL Blood Urea Nitrogen 40 MG/DL Creatinine 1.61 MG/DL Random Glucose 132 MG/DL Total Protein 6.4 GM/DL Albumin 1.8 GM/DL Calcium Level 8.5 MG/DL Alkaline Phosphatase 82 U/L Aspartate Amino Transf (AST/SGOT) 41 U/L Alanine Aminotransferase (ALT/SGPT) 45 U/L Total Bilirubin 0.4 MG/DL Sodium Level 131 MEQ/L Potassium Level 4.0 MEQ/L Chloride Level 96 MEQ/L Carbon Dioxide Level 26.3 MEQ/L Anion Gap 9 MEQ/L Estimat Glomerular Filtration Rate 42 ML/MIN Imaging Last 72 hours Impressions Chest X-Ray 10/22/16 0600 Signed Impressions: Service Date/Time: Saturday, October 22, 2016 04:39 - CONCLUSION: Stable chest with diffuse bilateral airspace disease and possible associated right-sided effusion. Farzad Gan MD Chest X-Ray 10/21/16 0000 Signed Impressions: Service Date/Time: October 07:51 - CONCLUSION: 1. Stable diffuse pulmonary infiltrates. 2. Stable cardiomegaly. Jeffrey Mohan MD Chest X-Ray 10/20/16 0600 Signed Impressions: Service Date/Time: Thursday, October 20, 2016 05:21 - CONCLUSION: 1. Tracheostomy unchanged. Probable pulmonary fibrosis with mild edema. Cardiomegaly. Amado Crain MD Chest CT 10/20/16 0000 Signed Impressions: Service Date/Time: Thursday, October 20, 2016 13:29 - CONCLUSION: Small bilateral pleural effusions progressed in the interval. Diffuse interstitial and alveolar opacities persist in both lungs with progression to air partial air bronchograms in the lower lobes. Victor Hugo Kiser MD FACR (Elin Kwok) Assessment and Plan Problem List: (1) History of CVA (cerebrovascular accident) ICD Codes: Z86.73 - Personal history of transient ischemic attack (TIA), and cerebral infarction without residual deficits Status: Acute (2) CKD (chronic kidney disease) stage 3, GFR 30-59 ml/min ICD Codes: N18.3 - Chronic kidney disease, stage 3 (moderate) Status: Acute (3) S/P CABG x 3 ICD Codes: Z95.1 - Presence of aortocoronary bypass graft Status: Acute (4) Atrial fibrillation ICD Codes: I48.91 - Unspecified atrial fibrillation (5) Acute hypoxemic respiratory failure ICD Codes: J96.01 - Acute respiratory failure with hypoxia Status: Acute (6) Hypertension ICD Codes: I10 - Essential (primary) hypertension Status: Acute (7) Thoracic aortic aneurysm without rupture ICD Codes: I71.2 - Thoracic aortic aneurysm, without rupture Status: Acute Assessment and Plan PLAN: Continue labetalol and eliquis Lasix IV today. Switch back to Lasix PO tomorrow Weaning high dose steroids per pulmonary SBP goal < 130 DBP goal < 90. PRN lopressor The patient is clear from cardiac standpoint for discharge to LTAC. We will sign off. Please reconsult with acute cardiac changes. The patient was seen and evaluated by Dr. Moran who completed a [id number] encounter, completed a physical exam and participated in evaluation and management. (Elin Kwok) Assessment and Plan The exam, history, and the medical decision-making described in the above note were completed with the assistance of the mid-level provider. I reviewed and agree with the findings presented. I attest that I had a [id number] encounter with the patient on the same day, and personally performed and documented my assessment and findings in the medical record. LOng discussion with RN about pulmonary status. (Suellen Moran MD) Elin Kwok Oct 22, 2016 13:37 Suellen Moran MD Oct 22, 2016 17:12
--- NOTE | 2016-10-22 15:41 | HHI.HCPN ---
Disposition patient to provide update in stool visit with DANNY Gil. is at bedside, awaiting transfer to [facility]. Nurse, Tanesha, provided update as to discharge plans at bedside. Patient will be transferred to [facility] either today or tomorrow pending bed availability. declined any information and expressed displeasure that patient was not up out of bed doing exercise. Patient remains on a ventilator via tracheostomy on 55% FiO2. I did attempt to explain the need for adequate oxygenation, but this explanation did not satisfy her. Patient was visibly tachypneic, using accessory muscles, sitting up in stretcher chair. She states that she feels the patient declined because he was transferred to the cardiovascular intensive care unit. She has poor insight into the patient's clinical condition and comorbidities. All questions were answered and contact information verified. Antonia Green Oct 22, 2016 15:41
[2016-10-22] MEDS: RESP: ALBUTEROL 2.5 MG/3 ML NEB (PRN) NEB (21:12)
[2016-10-23] MEDS ORDERED: FUROSEMIDE 40 MG TAB NG SCH (09:00)
== END 2016-10-22 22:43 | DRG 4 ==
LOC: NEPC 22:12 → NEDA 09-09 00:42 → NEPGCP 09-09 02:25 → N05A 09-09 17:18 → N03A 09-16 06:13 → HCVR 10-01 05:24
PROVIDERS: ADMIT Internal Medicine Critical Care Medicine; ATTEND Internal Medicine Critical Care Medicine
PROC: 5A1945Z Respiratory Ventilation, 24-96 Consecutive Hours (ICD-10-PCS; 2016-09-17)
PROC: 0BH17EZ Insertion of Endotracheal Airway into Trachea, Via Natural or Artificial Opening (ICD-10-PCS; 2016-09-17)
PROC: 0BH17EZ Insertion of Endotracheal Airway into Trachea, Via Natural or Artificial Opening (ICD-10-PCS; 2016-09-22)
PROC: 5A1945Z Respiratory Ventilation, 24-96 Consecutive Hours (ICD-10-PCS; 2016-09-22)
PROC: 30233N1 Transfusion of Nonautologous Red Blood Cells into Peripheral Vein, Percutaneous Approach (ICD-10-PCS; principal; 2016-10-02)
PROC: 5A09357 Assistance with Respiratory Ventilation, Less than 24 Consecutive Hours, Continuous Positive Airway Pressure (ICD-10-PCS; 2016-10-02)
PROC: 5A1955Z Respiratory Ventilation, Greater than 96 Consecutive Hours (ICD-10-PCS; 2016-10-03)
PROC: 0BH17EZ Insertion of Endotracheal Airway into Trachea, Via Natural or Artificial Opening (ICD-10-PCS; 2016-10-03)
PROC: 0B113F4 Bypass Trachea to Cutaneous with Tracheostomy Device, Percutaneous Approach (ICD-10-PCS; 2016-10-13)
PROC: 0BJ08ZZ Inspection of Tracheobronchial Tree, Via Natural or Artificial Opening Endoscopic (ICD-10-PCS; 2016-10-13)
PROC: 0DH63UZ Insertion of Feeding Device into Stomach, Percutaneous Approach (ICD-10-PCS; 2016-10-15)
DX: I63.40 Cerebral infarction due to embolism of unspecified cerebral artery (principal); N17.0 Acute kidney failure with tubular necrosis; I21.4 Non-ST elevation (NSTEMI) myocardial infarction; G93.40 Encephalopathy, unspecified; A41.9 Sepsis, unspecified organism; G72.0 Drug-induced myopathy; J96.21 Acute and chronic respiratory failure with hypoxia; J18.9 Pneumonia, unspecified organism; N18.3 Chronic kidney disease, stage 3 (moderate); I13.0 Hypertensive heart and chronic kidney disease with heart failure and stage 1 through stage 4 chronic kidney disease, or unspecified chronic kidney disease; E46 Unspecified protein-calorie malnutrition; I69.351 Hemiplegia and hemiparesis following cerebral infarction affecting right dominant side; Z99.11 Dependence on respirator [ventilator] status; E87.2 Acidosis; K92.2 Gastrointestinal hemorrhage, unspecified; E87.1 Hypo-osmolality and hyponatremia; B37.49 Other urogenital candidiasis; N13.30 Unspecified hydronephrosis; R44.3 Hallucinations, unspecified; E87.0 Hyperosmolality and hypernatremia; I50.9 Heart failure, unspecified; I48.2 Chronic atrial fibrillation; I25.2 Old myocardial infarction; Z85.038 Personal history of other malignant neoplasm of large intestine; Z85.51 Personal history of malignant neoplasm of bladder; Z95.1 Presence of aortocoronary bypass graft; I25.10 Atherosclerotic heart disease of native coronary artery without angina pectoris; Z86.79 Personal history of other diseases of the circulatory system; Z79.01 Long term (current) use of anticoagulants; E78.00 Pure hypercholesterolemia, unspecified; K21.9 Gastro-esophageal reflux disease without esophagitis; Z87.442 Personal history of urinary calculi; G47.30 Sleep apnea, unspecified; Z95.5 Presence of coronary angioplasty implant and graft; K44.9 Diaphragmatic hernia without obstruction or gangrene; Z87.891 Personal history of nicotine dependence; D64.9 Anemia, unspecified; E87.5 Hyperkalemia; H53.8 Other visual disturbances; I95.1 Orthostatic hypotension; N28.1 Cyst of kidney, acquired; I73.9 Peripheral vascular disease, unspecified; I71.2 Thoracic aortic aneurysm, without rupture; F41.9 Anxiety disorder, unspecified; Z51.5 Encounter for palliative care; Z90.49 Acquired absence of other specified parts of digestive tract; Z79.899 Other long term (current) drug therapy; Y95 Nosocomial condition; Z91.19 Patient's noncompliance with other medical treatment and regimen; T44.7X5A Adverse effect of beta-adrenoreceptor antagonists, initial encounter; Y92.239 Unspecified place in hospital as the place of occurrence of the external cause; Z53.20 Procedure and treatment not carried out because of patient's decision for unspecified reasons; K29.70 Gastritis, unspecified, without bleeding; R19.7 Diarrhea, unspecified; R13.10 Dysphagia, unspecified; E83.39 Other disorders of phosphorus metabolism; E86.0 Dehydration
CPT/HCPCS: 31500; 31600; 31624; 36430; 36556; 36600; 70450; 70490; 70544; 70551; 71010; 71250; 74000; 76775; 76937; 80048; 80053; 80069; 80076; 80185; 80202; 81001; 82140; 82150; 82272; 82306; 82550; 82552; 82570; 82595; 82607; 82728; 82784; 82785; 82805; 82948; 83520; 83540; 83550; 83605; 83615; 83690; 83735; 83880; 83883; 83970; 84100; 84132; 84156; 84165; 84300; 84484; 85007; 85014; 85018; 85025; 85027; 85610; 85652; 85730; 86021; 86038; 86140; 86160; 86317; 86334; 86430; 86592; 86803; 86850; 86900; 86901; 86920; 87040; 87070; 87086; 87205; 87338; 87340; 87449; 87493; 87641; 87804; 93005; 93306; 93308; 93880; 94002; 94003; 94150; 94640; 94664; 95819; A7521; C9113; C9254; J0171; J0282; J0330; J0360; J0461; J0690; J1100; J1815; J1940; J1953; J2060; J2185; J2250; J2270; J2543; J2765; J2920; J2997; J3010; J3370; J3420; J3480; J7030; J7040; J7050; J7060; J7512; J7613; P9016; Q2009